=== PATIENT | male | born 1960 | race Caucasian/White ===

== ENCOUNTER 2023-05-19 10:07 | Outpatient (OUT) | payer BC, MEDICARE, SELFPAY ==
--- NOTE | 2023-05-19 10:17 | XR_ITS ---
The [address] [address] Patient Name: VIANEY AARON MRN: [id number] date: 1960 Sex: M Assigned Patient Location: [facility] Current Patient Location: [facility] Accession/Order Number: [id number] Exam Date: 05/19/2023 10:20 Report Date: 05/19/2023 13:29 At the request of: ILDA PECK Procedure: XR shoulder RICAHRD min 2V EXAM: XR shoulder RICHARD min 2V HISTORY: Bilateral Shoulder Pain, Cervicalgia COMPARISON: None. TECHNIQUE: 4 views. FINDINGS: Mild bilateral degenerative changes of the acromioclavicular and glenohumeral joints. Small bony fragment of the left acromial clavicular joint is noted. There is no dislocation. Unremarkable soft tissues. XR/XR shoulder RICHARD min 2V IMPRESSION: Mild bilateral degenerative changes as above. Well-corticated bony fragment of the left acromioclavicular joint, likely sequela of prior fracture. Electronically authenticated by: KOJO FUNG Date: 05/19/2023 13:29
--- NOTE | 2023-05-19 10:17 | XR_ITS ---
The [address] [address] Patient Name: VIANEY AARON MRN: [id number] date: 1960 Sex: M Assigned Patient Location: [facility] Current Patient Location: [facility] Accession/Order Number: [id number] Exam Date: 05/19/2023 10:20 Report Date: 05/19/2023 11:23 At the request of: ILDA PECK Procedure: XR cervical spine 2-3V XR cervical spine 2-3V, 05/19/2023 10:20 AM EDT, OH001 INDICATION: Cervicalgia M54.2 COMPARISON: None TECHNIQUE: 3 views submitted. FINDINGS: There is evidence of anterior fusion at C5-C6. The components appear intact and in anatomic alignment. The vertebral bodies demonstrate normal sagittal alignment. No acute fracture or subluxation is identified. There is marked disc space narrowing slight endplate osteophyte formation at C6-C7. The visualized soft tissues appear unremarkable. XR/XR cervical spine 2-3V IMPRESSION: Status post anterior fusion at C5-C6. Degenerative changes at C6-C7. Electronically authenticated by: MARGIE PETTIT Date: 05/19/2023 11:23
--- NOTE | 2023-05-19 10:17 | XR_ITS ---
The [address] [address] Patient Name: VIANEY AARON MRN: [id number] date: 1960 Sex: M Assigned Patient Location: [facility] Current Patient Location: [facility] Accession/Order Number: [id number] Exam Date: 05/19/2023 10:36 Report Date: 05/19/2023 11:19 At the request of: ILDA PECK Procedure: XR DEXA axial skeleton EXAMINATION: XR DEXA axial skeleton, 05/19/2023 10:36 AM EDT HISTORY: Loss Of Height R29.890, Age Related Osteoporosis M81.0 COMPARISON: None. TECHNIQUE: Dual-energy X-ray absorptiometry (DEXA) bone density study performed for the axial skeleton. HISTORY: Loss Of Height R29.890, Age Related Osteoporosis M81.0 FINDINGS: Bone mineral density AP spine L1-L4 measures 1.585 g/sq cm. T score 3.0. WHO classification: Normal. Lowest bone mineral density left femoral neck measures 1.1 by 5 g/sq cm. T score 1.0. WHO classification: Normal XR/XR DEXA axial skeleton IMPRESSION: Normal bone mineral density. Low fracture risk Electronically authenticated by: SUJATA VELASCO Date: 05/19/2023 11:19
== END 2023-05-19 10:08 | disposition home or self-care (01) ==
LOC: RAD 10:07
PROVIDERS: PCP Family Medicine; Visit Provider Family Medicine
DX: E29.1 Testicular hypofunction (principal); M54.2 Cervicalgia; M25.511 Pain in right shoulder; M25.512 Pain in left shoulder; M81.0 Age-related osteoporosis without current pathological fracture
CPT/HCPCS: 36415; 72040; 73030; 77080; 84403

== ENCOUNTER 2023-05-19 10:20 | Outpatient (OUT) | payer BC, MEDICARE, SELFPAY ==
[2023-05-20 04:07] LABS: Testosterone 456 ng/dL (264-916)
== END 2023-05-19 10:21 | disposition home or self-care (01) ==
LOC: LAB 10:20
PROVIDERS: PCP Family Medicine; Visit Provider Urology
DX: E29.1 Testicular hypofunction (principal)
CPT/HCPCS: 36415; 84403

== ENCOUNTER 2023-06-26 15:04 | Outpatient (OUT) | payer BC, MEDICARE, SELFPAY ==
[2023-06-26 15:31] LABS: Basophils Percent Auto 0.9 % (0.2-2.0); Eosinophils Absolute Auto 0.1 10^3/uL (0.0-0.7); Eosinophils Percent Auto 2.2 % (0.9-7.0); Hematocrit 43.8 % (42.0-54.0); Hemoglobin 14.4 g/dL (14.0-18.0); Immature Granulocytes Abs Auto 0.01 10^3/uL (0.00-0.03); Immature Granulocytes Pct Auto 0.2 % (0.0-0.5); Lymphocytes Absolute Auto 0.7 10^3/uL (1.2-3.8); Lymphocytes Percent Auto 14.8 % (20.5-60.0); Mean Corpuscular HGB Conc 32.9 g/dL (29.9-35.2); Mean Corpuscular Hemoglobin 29.1 pg (25.9-34.0); Mean Corpuscular Volume 88.5 fL (80.0-94.0); Mean Platelet Volume 9.5 fL (9.5-13.5); Monocytes Absolute Auto 0.4 10^3/uL (0.3-0.8); Monocytes Percent Auto 9.3 % (1.7-12.0); Neutrophils Absolute Auto 3.3 10^3/uL (1.4-6.5); Neutrophils Percent Auto 72.6 % (43.0-75.0); Platelet Count 131 10^3/uL (150-450); Red Blood Count 4.95 10^6/uL (4.70-6.10); Red Cell Distribution Width 15.6 % (11.0-15.0); White Blood Count 4.6 10^3/uL (4.0-11.0)
[2023-06-26 16:33] LABS: Alanine Aminotransferase 46 U/L (16-63); Albumin Globulin Ratio 1.3; Albumin Level 3.6 g/dL (3.4-5.0); Alkaline Phosphatase 56 U/L (46-116); Anion Gap 8.1; Aspartate Amino Transferase 27 U/L (15-37); BUN Creatinine Ratio 10.4; Bilirubin Total 0.8 mg/dL (0.2-1.0); Calcium 8.9 mg/dL (8.5-10.1); Carbon Dioxide 32.2 mmol/L (21.0-32.0); Chloride 105 mmol/L (98-107); Estimated GFR (African America 52 (>=60); Estimated GFR (Non-African Ame 43 (>=60); Free T3 3.17 pg/mL (2.18-3.98); Globulin 2.8 g/dL; Glucose 83 mg/dL (74-106); Potassium 4.3 mmol/L (3.5-5.1); Sodium 141 mmol/L (136-145); Thyroid Stimulating Hormone 0.173 uIU/mL (0.358-3.740); Total Protein 6.4 g/dL (6.4-8.2)
[2023-06-27 11:09] LABS: Troponin I High Sensitivity 7.4 pg/mL (4.0-76.1)
== END 2023-06-26 15:05 | disposition home or self-care (01) ==
LOC: LAB 15:08
PROVIDERS: PCP Family Medicine; Visit Provider Family Medicine
DX: R60.9 Edema, unspecified (principal); I50.30 Unspecified diastolic (congestive) heart failure; R07.9 Chest pain, unspecified
CPT/HCPCS: 36415; 80053; 83880; 84436; 84443; 84481; 84484; 85025

== ENCOUNTER 2023-06-27 12:54 | Outpatient (OUT) | payer BC, MEDICARE, SELFPAY ==
--- NOTE | 2023-06-27 | ECG_ITS ---
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
--- NOTE | 2023-06-27 14:00 | CA_ITS ---
Patient: VIANEY AARON Exam Date: 06/27/2023 : 1960 Gender:M Ordering : DR Ryan Hendrickson . Admission #: [id number] Family : Order #: [id number] CLICK HERE TO VIEW EXAM ECHOCARDIOGRAM REPORT PROCEDURE: CA ECHO DOPPLER COMPLETE INDICATIONS: Edema COMPARISON: None. DESCRIPTION: COMPLETE ECHOCARDIOGRAM Real-time transthoracic echocardiography with 2D, M-mode, spectral and color flow Doppler performed. QUALITY: Technical quality was good. LEFT VENTRICLE: Normal chamber size. Mild concentric left ventricular hypertrophy. LV EF: Global left ventricular systolic function is normal; visually estimated ejection fraction is 55%. No significant wall motion abnormalities. DIASTOLIC: Not adequately assessed due to heart rhythm. ATRIAL SEPTUM: Visually appears intact. LEFT ATRIUM: Severe dilatation. RIGHT ATRIUM: Severe dilatation. RIGHT VENTRICLE: Mild dilatation. Normal right ventricular systolic function. TRICUSPID VALVE: Normal mobility and thickness. Moderate regurgitation. Mild pulmonary hypertension. RVSP 44mmHg MITRAL VALVE: Mildly thickened with normal mobility. No evidence of mitral valve stenosis. There is no mitral annular calcification. Moderate mitral regurgitation. AORTIC VALVE: Normal trileaflet appearance. No visible sclerosis. Normal leaflet mobility. No evidence of aortic valve stenosis. No aortic regurgitation. AORTIC ROOT: Normal diameter and appearance. PULMONIC VALVE: Normal thickness and mobility. No stenosis. Trivial regurgitation. PERICARDIUM: Trivial pericardial effusion. IVC: Collapses with inspirations. Mild dilatation measuring 2.3cm. CONCLUSION: 1. Global left ventricular systolic function is normal; visually estimated ejection fraction is 55% 2. Mild left ventricular hypertrophy 3. Severe biatrial enlargement 4. Right ventricle is mildly dilated with normal systolic function 5. Moderate tricuspid regurgitation; mildly elevated right ventricular systolic pressure 6. Moderate mitral regurgitation 7. Trivial pericardial effusion Adult Echocardiography Procedure Report Left Ventricle LVEDD (3.7 - 5.6 cm): 4.84 cm LVESD (2.2 - 4.0 cm): 3.36 cm LVIVS thickness (0.6 - 1.2 cm): 1.22 cm LVPW thickness (0.5 - 1.0 cm): 1.18 cm e': 0.13 m/s E - e': 6.73 LVOT Max Gradient: 1.74 mm[Hg] LVOT Area (cm2): 0.66 m/s Peak Velocity (LVOT): 0.66 m/s Mean Velocity (LVOT): 0.49 m/s LVOT Diameter 2.10 cm Left Atrium LA Volume Index (2D A2C): 67.08 ml/m2 Left Atrium Systolic Dimension: 4.50 cm Mitral Valve Mitral Valve E-Wave Peak Velocity: 0.86 m/s Right Ventricle RV Internal Diastolic Dimension: 4.02 cm Aorta AO Root Diam: 3.19 cm Ascending Ao Diam: 3.10 cm Aortic Valve AoV Area (Peak Tahir): 2.17 cm2, 2.17 cm2 AoV Area (VTI): 1.90 cm2, 1.90 cm2 Peak Velocity(Antegrade Flow): 1.05 m/s Peak Gradient(Antegrade Flow): 4.39 mm[Hg] Mean Velocity(Antegrade Flow): 0.73 m/s Mean Gradient(Antegrade Flow): 2.39 mm[Hg] Velocity Time Integral: 21.12 cm Tricuspid Valve Peak Velocity (Regurgitant Flow): 2.49 m/s, 2.18 m/s, 3.00 m/s Pulmonic Valve Mean Gradient: 1.34 mm[Hg] Mean Velocity: 0.54 m/s Peak Velocity: 0.77 m/s, 0.66 m/s Peak Gradient: 2.38 mm[Hg], 1.72 mm[Hg] Right Atrium Right Atrium Systolic Pressure: 106.95 ml, 106.95 ml Dictated by: George Loza M.D. on 06/28/2023 at 09:01 Approved by: George Loza M.D. on 06/28/2023 at 09:05
== END 2023-06-27 12:55 | disposition home or self-care (01) ==
LOC: CARD 12:55
PROVIDERS: PCP Family Medicine; Visit Provider Family Medicine
DX: R60.9 Edema, unspecified (principal); I48.91 Unspecified atrial fibrillation
CPT/HCPCS: 93005; 93306

== ENCOUNTER 2023-07-03 09:12 | Outpatient (OUT) | payer BC, MEDICARE, SELFPAY ==
[2023-07-03 10:20] LABS: Alanine Aminotransferase 44 U/L (16-63); Albumin Globulin Ratio 1.2; Alkaline Phosphatase 76 U/L (46-116); Anion Gap 11.6; Aspartate Amino Transferase 20 U/L (15-37); BUN Creatinine Ratio 14.5; Bilirubin Total 1.3 mg/dL (0.2-1.0); Calcium 9.8 mg/dL (8.5-10.1); Carbon Dioxide 29.5 mmol/L (21.0-32.0); Chloride 102 mmol/L (98-107); Chol HDL Ratio 4.1; Cholesterol 206 mg/dL (<=200); Estimated GFR (African America 48 (>=60); Estimated GFR (Non-African Ame 40 (>=60); Globulin 3.3 g/dL; Glucose 93 mg/dL (74-106); HDL Cholesterol 50 mg/dL (40-60); Potassium 4.1 mmol/L (3.5-5.1); Sodium 139 mmol/L (136-145); Total Protein 7.3 g/dL (6.4-8.2); Triglycerides 109 mg/dL (<=150); VLDL CHOLESTEROL 21.8 mg/dL
== END 2023-07-03 09:13 | disposition home or self-care (01) ==
LOC: LAB 09:14
PROVIDERS: PCP Family Medicine; Visit Provider Internal Medicine Interventional Cardiology
DX: I48.0 Paroxysmal atrial fibrillation (principal); E78.5 Hyperlipidemia, unspecified
CPT/HCPCS: 36415; 80053; 80061

== ENCOUNTER 2023-07-04 10:15 | Outpatient (OUT) | payer BC, MEDICARE, SELFPAY ==
--- NOTE | 2023-07-04 10:18 | US_ITS ---
The [address] [address] Patient Name: VIANEY AARON MRN: [id number] date: 1960 Sex: M Assigned Patient Location: [place] Current Patient Location: [place] Accession/Order Number: [id number] Exam Date: 07/04/2023 10:18 Report Date: 07/04/2023 12:56 At the request of: ILDA PECK Procedure: US renal bladder EXAM: US renal bladder HISTORY: Acute Kidney Failure N17.9 COMPARISON: None. TECHNIQUE: Ultrasound kidneys. FINDINGS: The right kidney measures 10.2 x 4.6 x 5.4 cm and appears normal. The left kidney measures 10.6 x 4.9 x 4.7 cm and contains a cyst measuring up to 0.8 cm. There is no renal calculus or hydronephrosis, bilaterally. US/US renal bladder IMPRESSION: Left renal cyst. Electronically authenticated by: KOJO FUNG Date: 07/04/2023 12:56
[2023-07-04 13:01] LABS: Bilirubin Urine NEGATIVE (NEGATIVE); Blood Urine NEGATIVE (NEGATIVE); Clarity Urine CLEAR (CLEAR); Color Urine LT. YELLOW (YELLOW); Glucose Urine UA NEGATIVE (NEGATIVE); Ketones Urine NEGATIVE (NEGATIVE); Leukocyte Esterase Urine NEGATIVE (NEGATIVE); Nitrite Urine NEGATIVE (NEGATIVE); Protein Urine NEGATIVE (NEG/TRACE); Specific Gravity Urine <=1.005 (1.005-1.025); Urobilinogen Urine 0.2 EU/dL (0.2-1.0)
[2023-07-04 13:16] LABS: Bacteria Urine NONE SEEN #/HPF (NONE SEEN); Cast Seen? NONE SEEN #/LPF (NONE SEEN); Crystals Seen? None Seen #/HPF (None Seen); Mucus Urine NONE SEEN (NONE SEEN); RBC Urine NONE SEEN #/HPF (0-2); Squamous Epithelial Cell Urine NONE SEEN #/LPF (NONE/RARE); WBC Urine NONE SEEN #/HPF (NONE SEEN)
== END 2023-07-04 10:16 | disposition home or self-care (01) ==
LOC: US 10:15
PROVIDERS: PCP Family Medicine; Visit Provider Family Medicine
DX: N17.9 Acute kidney failure, unspecified (principal); R30.0 Dysuria; N28.1 Cyst of kidney, acquired
CPT/HCPCS: 76770; 81001; 87086

== ENCOUNTER 2023-07-07 10:41 | Outpatient (OUT) | payer BC, MEDICARE, SELFPAY ==
[2023-07-07 11:23] LABS: Anion Gap 10.5; Calcium 9.1 mg/dL (8.5-10.1); Carbon Dioxide 30.3 mmol/L (21.0-32.0); Chloride 101 mmol/L (98-107); Estimated GFR (African America 51 (>=60); Estimated GFR (Non-African Ame 42 (>=60); Glucose 91 mg/dL (74-106); Potassium 4.8 mmol/L (3.5-5.1); Sodium 137 mmol/L (136-145)
== END 2023-07-07 10:42 | disposition home or self-care (01) ==
LOC: LAB 10:42
PROVIDERS: PCP Family Medicine; Visit Provider Internal Medicine Interventional Cardiology
DX: I11.9 Hypertensive heart disease without heart failure (principal)
CPT/HCPCS: 36415; 80048

== ENCOUNTER 2023-07-10 10:57 | Outpatient (OUT) | payer BC, MEDICARE, SELFPAY ==
--- NOTE | 2023-07-10 10:15 | NM_ITS ---
Patient: VIANEY AARON Exam Date: 07/10/2023 : 1960 Gender:M Ordering : DR Ryan Hendrickson . Admission #: [id number] Family : DR JOE WILLIAM M.D. Order #: [id number] CLICK HERE TO VIEW EXAM RADIOLOGY REPORT PROCEDURE: NM ANISA PERF SPECT REST STR COMPARISON: None. INDICATIONS: ATRIAL FIBRILLATION, CHEST PAIN TECHNIQUE: Exam Description: Stress/Rest one day protocol gated SPECT Rest Imagin.1 mCi Tc-99m Cardiolite IV on 07/13/2023 Stress Imaging 30.2 mCi Tc-99m Cardiolite IV on 07/13/2023 Exercise Protocol: Stephan Heart Rate (bpm): Rest: 61 Max: 153 PMHR: 98 Blood Pressure: Rest: 152/88 Max: 182/96 Exercise Time: Minutes: 8 Seconds: 01 Stage Reached: Stage: 3 Mets 10.1 Symptoms: NONE Rest and peak stress ECG findings were pending and the exercise portion of the study was pending per attending physician Dr. Tidwell . For more details please see separate cardiac stress test report. FINDINGS: QUALITY OF STUDY: Good. PERFUSION DEFECT: LOCATION: Basal inferior. Mid-inferior. [place]. SIZE: Medium (3-4 segments). SEVERITY: Mild. TYPE: Persistent. WALL MOTION: Normal. LV SIZE: Normal. 96 mL. TID / TCD: None; 0.8 LVEF: Normal. Calculated EF 60%. SUMMARY: Myocardial perfusion imaging study has ABNORMAL findings. CONCLUSION: 1. Small fixed defect inferior wall without evidence of reversible ischemia 2. Pending exercise test Dictated by: Marc Jefferson MD on 07/10/2023 at 13:53 Approved by: Marc Jefferson MD on 07/10/2023 at 14:01
[2023-07-10 12:42] LABS: Total Volume 24 Hour Urine 4075 mL/24hr
[2023-07-10 12:46] LABS: Creatinine Urine Random 52.03 mg/dL (20.00-300.00); Total Protein 24 Hour Urine 244.5 mg/24hr (<=149.1); Total Protein Urine Random <6.0 mg/dL (<=11.9)
[2023-07-10 13:10] LABS: Body Surface Area 1.92
[2023-07-10 13:23] LABS: Creatinine Clearance Urine 79.92 mL/min (85.00-125.00)
--- NOTE | 2023-07-10 16:08 | P.STRESS_ITS ---
Stress Test Stress Test Requesting physician: Ryan Hendrickson Procedure: Exercise Cardiolite stress test General Information: Reason for Stress Test: Chest pain Cardiac History and Risk Factors: Personal history of atrial fibrillation. Resting 12 - Lead Electrocardiogram: Rate & rhythm: Irregularly irregular, consistent with atrial fibrillation. Averaged rate was 70. [place]: Normal T-waves: Inverted in III and sometimes aVF. ST-segments: Normal orientation. Prior EKG 06/27/2023: Inverted T waves were present in III on EKG dated 06/27/2023 Stress Test: Protocol: Stephan protocol was followed, with injection of Cardiolite once target heart rate was achieved. Exercise capacity: Good exercise capacity. Total exercise time of 8 minutes 1 second reached Stephan stage 3 at 2.5MPH, 12% grade, & 10.1 METs. Blood pressure: Initial: 152/88, Maximum: 182/96, Recovery: 146/90 Rate & rhythm: Patient remained in atrial fibrillation during the exercise and recovery portions of the study.? The maximum heart rate was 153, which was 98% of the maximum predicted heart rate 156. ST-segments & T-waves: During recovery, the T waves in aVF were more prominent. There was 0.5-1mm ST segment depression in lead V5 and very subtle ST segment depression in V6, along with new T wave inversions. Patient response/symptoms: There were no symptoms similar to the chief complaint. Interpretation: This is an abnormal exercise stress test based on ST segment changes in the lateral leads (V5 & V6). No reproducible chest pain. Cardiolite imaging interpretation will be reported separately. Clinical correlation required.?
== END 2023-07-10 10:58 | disposition home or self-care (01) ==
LOC: NM 10:58
PROVIDERS: PCP Family Medicine; Visit Provider Family Medicine
DX: R07.9 Chest pain, unspecified (principal); N17.9 Acute kidney failure, unspecified; R94.39 Abnormal result of other cardiovascular function study
CPT/HCPCS: 36415; 78452; 82570; 82575; 84156; 93017; A9500

== ENCOUNTER 2023-07-14 11:17 | Outpatient (OUT) | payer BC, MEDICARE, SELFPAY ==
[2023-07-14 12:20] LABS: Anion Gap 7.7; BUN Creatinine Ratio 14.1; Carbon Dioxide 31.5 mmol/L (21.0-32.0); Chloride 102 mmol/L (98-107); Estimated GFR (African America >60 (>=60); Estimated GFR (Non-African Ame 50 (>=60); Glucose 82 mg/dL (74-106); Potassium 4.2 mmol/L (3.5-5.1); Sodium 137 mmol/L (136-145)
== END 2023-07-14 11:18 | disposition home or self-care (01) ==
LOC: LAB 11:20
PROVIDERS: PCP Family Medicine; Visit Provider Internal Medicine Interventional Cardiology
DX: I10 Essential (primary) hypertension (principal)
CPT/HCPCS: 36415; 80048

== ENCOUNTER 2023-07-17 20:04 | Outpatient (OUT) | payer BC, MEDICARE, SELFPAY | END 2023-07-17 20:05 | disposition home or self-care (01) | LOC: SLEEP 20:04 | PROVIDERS: PCP Family Medicine; Visit Provider Family Medicine | DX: G47.33 Obstructive sleep apnea (adult) (pediatric) (principal) | CPT/HCPCS: 95811 ==

== ENCOUNTER 2023-07-25 14:24 | Outpatient (OUT) | payer BC, MEDICARE, SELFPAY ==
[2023-07-25 14:54] LABS: Basophils Absolute Auto 0.1 10^3/uL (0.0-0.1); Basophils Percent Auto 1.2 % (0.2-2.0); Eosinophils Absolute Auto 0.1 10^3/uL (0.0-0.7); Hematocrit 49.1 % (42.0-54.0); Hemoglobin 16.6 g/dL (14.0-18.0); Lymphocytes Percent Auto 24.4 % (20.5-60.0); Mean Corpuscular HGB Conc 33.8 g/dL (29.9-35.2); Mean Corpuscular Volume 85.7 fL (80.0-94.0); Mean Platelet Volume 9.6 fL (9.5-13.5); Monocytes Absolute Auto 0.3 10^3/uL (0.3-0.8); Monocytes Percent Auto 7.8 % (1.7-12.0); Neutrophils Absolute Auto 2.6 10^3/uL (1.4-6.5); Neutrophils Percent Auto 64.6 % (43.0-75.0); Platelet Count 132 10^3/uL (150-450); Red Blood Count 5.73 10^6/uL (4.70-6.10); Red Cell Distribution Width 13.6 % (11.0-15.0); White Blood Count 4.1 10^3/uL (4.0-11.0)
[2023-07-25 15:34] LABS: Alanine Aminotransferase 31 U/L (16-63); Albumin Globulin Ratio 1.3; Albumin Level 4.1 g/dL (3.4-5.0); Alkaline Phosphatase 62 U/L (46-116); Anion Gap 8.2; Aspartate Amino Transferase 25 U/L (15-37); BUN Creatinine Ratio 12.4; Calcium 9.3 mg/dL (8.5-10.1); Carbon Dioxide 32.3 mmol/L (21.0-32.0); Chloride 101 mmol/L (98-107); Estimated GFR (African America >60 (>=60); Estimated GFR (Non-African Ame 52 (>=60); Globulin 3.1 g/dL; Glucose 85 mg/dL (74-106); Potassium 4.5 mmol/L (3.5-5.1); Sodium 137 mmol/L (136-145); Total Protein 7.2 g/dL (6.4-8.2)
== END 2023-07-25 14:25 | disposition home or self-care (01) ==
LOC: LAB 14:26
PROVIDERS: PCP Family Medicine; Visit Provider Family Medicine
DX: E03.9 Hypothyroidism, unspecified (principal); I48.91 Unspecified atrial fibrillation; I50.41 Acute combined systolic (congestive) and diastolic (congestive) heart failure
CPT/HCPCS: 36415; 80053; 83880; 85025

== ENCOUNTER 2023-08-24 10:26 | Outpatient (OUT) | payer BC, MEDICARE, SELFPAY ==
[2023-08-24 10:50] LABS: Basophils Absolute Auto 0.1 10^3/uL (0.0-0.1); Basophils Percent Auto 1.5 % (0.2-2.0); Eosinophils Absolute Auto 0.1 10^3/uL (0.0-0.7); Eosinophils Percent Auto 2.4 % (0.9-7.0); Hematocrit 45.7 % (42.0-54.0); Hemoglobin 15.5 g/dL (14.0-18.0); Immature Granulocytes Abs Auto 0.01 10^3/uL (0.00-0.03); Immature Granulocytes Pct Auto 0.3 % (0.0-0.5); Lymphocytes Absolute Auto 0.9 10^3/uL (1.2-3.8); Lymphocytes Percent Auto 26.1 % (20.5-60.0); Mean Corpuscular HGB Conc 33.9 g/dL (29.9-35.2); Mean Corpuscular Hemoglobin 29.7 pg (25.9-34.0); Mean Corpuscular Volume 87.5 fL (80.0-94.0); Mean Platelet Volume 9.2 fL (9.5-13.5); Monocytes Absolute Auto 0.3 10^3/uL (0.3-0.8); Monocytes Percent Auto 9.1 % (1.7-12.0); Neutrophils Percent Auto 60.6 % (43.0-75.0); Platelet Count 129 10^3/uL (150-450); Red Blood Count 5.22 10^6/uL (4.70-6.10); Red Cell Distribution Width 13.8 % (11.0-15.0); White Blood Count 3.3 10^3/uL (4.0-11.0)
[2023-08-24 12:17] LABS: Alanine Aminotransferase 34 U/L (16-63); Albumin Globulin Ratio 1.3; Alkaline Phosphatase 60 U/L (46-116); Anion Gap 11.2; Aspartate Amino Transferase 22 U/L (15-37); BUN Creatinine Ratio 14.5; Bilirubin Total 0.8 mg/dL (0.2-1.0); Calcium 8.8 mg/dL (8.5-10.1); Chloride 103 mmol/L (98-107); Estimated GFR (African America >60 (>=60); Estimated GFR (Non-African Ame >60 (>=60); Free T4 0.91 ng/dL (0.76-1.46); Glucose 91 mg/dL (74-106); Potassium 4.2 mmol/L (3.5-5.1); Sodium 141 mmol/L (136-145); Thyroid Stimulating Hormone 0.531 uIU/mL (0.358-3.740)
== END 2023-08-24 10:27 | disposition home or self-care (01) ==
LOC: LAB 10:27
PROVIDERS: PCP Family Medicine; Visit Provider Family Medicine
DX: I48.0 Paroxysmal atrial fibrillation (principal); E87.6 Hypokalemia; E03.9 Hypothyroidism, unspecified; D69.6 Thrombocytopenia, unspecified; R60.9 Edema, unspecified; I50.41 Acute combined systolic (congestive) and diastolic (congestive) heart failure
CPT/HCPCS: 36415; 80053; 83880; 84439; 84443; 85025

== ENCOUNTER 2023-08-24 10:59 | Outpatient (OUT) | payer BC, MEDICARE, SELFPAY ==
[2023-08-24 12:13] LABS: Chol HDL Ratio 3.3; Cholesterol 183 mg/dL (<=200); HDL Cholesterol 55 mg/dL (40-60); LDL Cholesterol Calculated 107.8 mg/dL; Triglycerides 101 mg/dL (<=150); VLDL CHOLESTEROL 20.2 mg/dL
== END 2023-08-24 11:00 | disposition home or self-care (01) ==
LOC: LAB 10:59
PROVIDERS: PCP Family Medicine; Visit Provider Internal Medicine Interventional Cardiology
DX: I48.0 Paroxysmal atrial fibrillation (principal); E78.5 Hyperlipidemia, unspecified; E87.6 Hypokalemia; E03.9 Hypothyroidism, unspecified; D69.6 Thrombocytopenia, unspecified; R60.9 Edema, unspecified; I50.41 Acute combined systolic (congestive) and diastolic (congestive) heart failure
CPT/HCPCS: 36415; 80053; 80061; 83880; 84439; 84443; 85025

== ENCOUNTER 2023-09-05 07:27 | Outpatient (RCR) | payer BC, MEDICARE, SELFPAY ==
[2023-09-05 09:32] LABS: Basophils Percent Auto 1.2 % (0.2-2.0); Eosinophils Absolute Auto 0.1 10^3/uL (0.0-0.7); Hematocrit 43.3 % (42.0-54.0); Hemoglobin 14.7 g/dL (14.0-18.0); Lymphocytes Absolute Auto 0.9 10^3/uL (1.2-3.8); Lymphocytes Percent Auto 27.8 % (20.5-60.0); Mean Corpuscular HGB Conc 33.9 g/dL (29.9-35.2); Mean Corpuscular Hemoglobin 29.8 pg (25.9-34.0); Mean Corpuscular Volume 87.8 fL (80.0-94.0); Mean Platelet Volume 9.6 fL (9.5-13.5); Monocytes Absolute Auto 0.4 10^3/uL (0.3-0.8); Monocytes Percent Auto 11.4 % (1.7-12.0); Neutrophils Absolute Auto 1.9 10^3/uL (1.4-6.5); Neutrophils Percent Auto 56.6 % (43.0-75.0); Platelet Count 121 10^3/uL (150-450); Red Blood Count 4.93 10^6/uL (4.70-6.10); Red Cell Distribution Width 13.9 % (11.0-15.0); White Blood Count 3.3 10^3/uL (4.0-11.0)
[2023-09-05 09:43] LABS: Lactate Dehydrogenase 162 U/L (85-227)
[2023-09-06 11:09] LABS: ANA Direct Negative (Negative)
[2023-09-06 16:11] LABS: Albumin 3.9 g/dL (2.9-4.4); Alpha-1-Globulin 0.2 g/dL (0.0-0.4); Alpha-2-Globulin 0.5 g/dL (0.4-1.0); Gamma Globulin 0.9 g/dL (0.4-1.8); Immunoglobulin A, Qn, Serum 124 mg/dL (61-437); Immunoglobulin G, Qn, Serum 904 mg/dL (603-1613); Immunoglobulin M, Qn, Serum 46 mg/dL (20-172); Protein, Total 6.3 g/dL (6.0-8.5)
[2023-09-09 06:08] LABS: Immunoglobulin E, Total 3 IU/mL (6-495)
== END 2023-09-05 09:30 | disposition home or self-care (01) ==
LOC: INF 07:27
PROVIDERS: PCP Family Medicine; Visit Provider Internal Medicine Hematology & Oncology
DX: D72.819 Decreased white blood cell count, unspecified (principal); D69.6 Thrombocytopenia, unspecified
CPT/HCPCS: 36415; 82607; 82784; 82785; 83615; 84155; 84165; 85025; 86038; 86334; G0463

== ENCOUNTER 2023-09-11 07:54 | Outpatient (OUT) | payer BC, MEDICARE, SELFPAY ==
--- NOTE | 2023-09-11 08:01 | CT_ITS ---
The [address] [address] Patient Name: VIANEY AARON MRN: [id number] date: 1960 Sex: M Assigned Patient Location: CT Current Patient Location: Accession/Order Number: [id number] Exam Date: 09/11/2023 09:15 Report Date: 09/12/2023 09:42 At the request of: ILDA PECK Procedure: CT abdomen pelvis wo con EXAM: CT abdomen pelvis wo con HISTORY: Spleen Enlargement R16.1 COMPARISON: None. TECHNIQUE: Axial CT images were obtained of the abdomen and pelvis without and with intravenous contrast. Multiplanar reconstructions were performed. ABDOMEN/PELVIS FINDINGS: Lower Chest: Unremarkable. Liver: Normal nonenhanced appearance and contour. Biliary/Gallbladder: Unremarkable. Pancreas: Unremarkable. Spleen: Borderline splenomegaly measuring 13.7 cm in craniocaudal dimension. Multiple tiny calcifications are present in the spleen, likely due to remote granulomatous disease. Adrenal Glands: Unremarkable. Kidneys: Unremarkable. Gastrointestinal/Peritoneum: No acute abnormality. The appendix is unremarkable. No free air or free fluid. Vascular: Unremarkable. Lymph Nodes: No enlarged lymph nodes by CT size criteria. Pelvic Organs: Unremarkable. Bladder: Unremarkable. Bones: No acute osseous abnormality. There is a chronic bilateral pars defect at L4 with a grade 2 anterolisthesis of L4 on L5. There are advanced degenerative changes at this level with severe bilateral neural foraminal stenosis and moderate spinal canal stenosis. Moderate degenerative disc disease is also present at L5-S1, with uncovertebral hypertrophy and facet hypertrophy contributing to severe right and mild left neural foraminal stenosis. Soft tissues: There is a small fat-containing left inguinal hernia. CT/CT abdomen pelvis wo con IMPRESSION: 1. No acute abnormality of the abdomen and pelvis. 2. Borderline splenomegaly measuring 13.7 cm. 3. Small fat-containing left inguinal hernia. 4. Spondylolisthesis, pars defect and advanced degenerative change at L4-L5. Electronically authenticated by: JOSIAH VERDUGO Date: 09/12/2023 09:42
== END 2023-09-11 07:55 | disposition home or self-care (01) ==
LOC: CT 07:54
PROVIDERS: PCP Family Medicine; Visit Provider Family Medicine
DX: R16.1 Splenomegaly, not elsewhere classified (principal); K40.90 Unilateral inguinal hernia, without obstruction or gangrene, not specified as recurrent
CPT/HCPCS: 74176

== ENCOUNTER 2023-09-29 11:46 | Outpatient (OUT) | payer BC, MEDICARE, SELFPAY ==
--- OUTSIDE RECORDS SUMMARY | 2023-09-29 11:56 | XMS_ITS | CCD ---
Author Name Unknown Address [address] [facility] [address] [place] [address] Organization [facility] Care Team Providers Care Outside Sales Engineer Name Role Phone Ilda Hendrickson Primary Care Physician Moose PRIETO, Jovita Unavailable Jovita Virk MD Unavailable CISCO ., DR GONSALES Primary Care Unavailable HOY ., DR GONSALES Attending Unavailable HOY ., DR GONSALES Admitting Unavailable HOY ., DR GONSALES Consulting Unavailable ZIEBER, DR ALFREDITO Crawford Consulting Unavailable LUE .TAYLOR Admitting Unavailable LUE ., ATYLOR Pompa Attending Unavailable HOY ., DR GONSALES Consulting Unavailable HOY ., DR GONSALES Primary Care Unavailable ARAM Flores, DR SAEED Landa Admitting Unavaila ble ARAM Flores, DR SAEED Landa Attending Unavaila fredrick CANTU JR ., DR SAEED Landa Consulting Unavaila ble HODarwin ., DR GONSALES Primary Care Unavailable HOY ., DR GONSALES Primary Care Unavailable MENDOZA ., DR WINTERS Admitting Unavailable MENDOZA ., DR WINTERS Attending Unavailable MENDOZA ., DR WINTERS Consulting Unavailable HOY ., DR GONSALES Attending Unavailable HOY ., DR GONSALES Admitting Unavailable HOY ., DR GONSALES Consulting Unavailable HOY ., DR GONSALES Primary Care Unavailable HOY ., DR GONSALES Attending Unavailable HOY ., DR GONSALES Admitting Unavailable HOY ., DR GONSALES Consulting Unavailable HOY ., DR GONSALES Primary Care Unavailable ARAM THORPE ., DR SAEED Landa Admitting Unavaila fredrick Flores, DR SAEED Landa Attending Unavaila fredrick CANTU JR ., DR SAEED Landa Consulting Unavaila ble HOY ., DR GONSALES Primary Care Unavailable HOY ., DR GONSALES Admitting Unavailable HOY ., DR GONSALES Attending Unavailable HOY ., DR GONSALES Consulting Unavailable HOY ., DR GONSALES Primary Care Unavailable ERIN HANSEN Unavailable MENDOZA ., DR WINTERS Admitting Unavailable MENDOZA ., DR WINTERS Attending Unavailable MENDOZA ., DR WINTERS Consulting Unavailable HOY ., DR GONSALES Primary Care Unavailable HOY ., DR GONSALES Admitting Unavailable HOY ., DR GONSALES Attending Unavailable HOY ., DR GONSALES Consulting Unavailable HOY ., DR GONSALES Primary Care Unavailable HOY ., DR GONSALES Attending Unavailable HOY ., DR GONSALES Admitting Unavailable HOY ., DR GONSALES Primary Care Unavailable HOY ., DR GONSALES Attending Unavailable HOY ., DR GONSALES Admitting Unavailable HOY ., DR GONSALES Primary Care Unavailable Ilda Hendrickson MD Primary Care Provider [phone] ILDA HENDRICKSON Primary Care Unavailable SHAWANDA HERNANDEZ Attending Unavailable Antonia, Sandoval Unavailable Vianey MENDOZA Attending Unavailable JENNIFERKYLE PABON Attending Unavailable LueTaylor Attending Unavailable Lue, Taylor Hatfield Attending Unavailable LueTaylor Attending Unavailable MENDOZA, Vianey R Attending Unavailable MENDOZA, Vianey R Attending Unavailable MENDOZA, Vianey R Attending Unavailable MENDOZA, Vianey R Attending Unavailable Lue, Taylor MMark Attending Unavailable JENNIFER, KYLE Marin Attending Unavailable JENNIFER, KYLE Marin Attending Unavailable MENDOZA, Vianey R Attending Unavailable Lue, Taylor MMark Attending Unavailable [facility], [facility] Referring Unavailable BAKARI SCOTT Attending Unavailable [facility], [facility] Attending Unavailable [facility], [facility] Admitting Unavailable [facility], [facility] Attending Unavailable [facility], [facility] Referring Unavailable [facility], [facility] Referring Unavailable [facility], [facility] Attending Unavailable [facility], [facility] Referring Unavailable Allergies Allergy Classification Reported Allergen(s) Allergy Type Date of Onset Reaction(s) Facility (1 source) Ciprofloxacin Drug Allergy Unknown Diveboard Other (1 source) No Known Medication Allergies; Translations: [No Known Medication Allergies] Propensity to adverse reactions (disorder) [facility] Repository Medications Current Medications Medication Drug Class(es) Dates Sig (Normalized) Sig (Original) acetaminophen 325 mg oral tablet (4 sources) Start: 06-27-2011 take 2 tablets by mouth every four hours as needed acetaminophen (TYLENOL) 325 MG tablet Take 2 Tabs by mouth every 4 hours as needed. 30 Tab 30 06/27/2011 Active amantadine hydrochloride 100 mg oral capsule (20 sources) Influenza A M2 Protein Inhibitor Start: 05-07-2019 take 1 mg by mouth twice daily amantadine 100 mg Cap mg cap(s), Oral, BID, Refills(s) 0 Start Date: 05/07/19 Status: Ordered Start: 12-25-2017 End: 07-20-2023 take 1 capsule by mouth once daily amantadine (SYMMETREL) 100 MG capsule Take 1 Capsule by mouth daily. 90 Capsule 3 07/20/2022 07/20/2023 Active take 1 tablet by darren th every twenty-four hours Amantadine HCl 100 MG 1 tablet Orally Once a day Active End: 04-26-2023 AMANTADINE HCL ORAL Take by mouth. 0 04/26/2023 Discontinued (Course of therapy completed) Comment on above: Take 100 mg by mouth once daily. Take by mouth. apixaban 5 mg oral tablet (1 source) Factor Xa Inhibitor take 1 tablet by mouth every twelve hours Eliquis 5 MG 1 tablet Orally Twice a day Active Ascorbic Acid (20 sources) Vitamin C Start: 05-07-2019 Vitamin C Daily, Refills(s) 0 Start Date: 05/07/19 Status: Ordered Start: 05-07-2019 Ascorbic Acid (VITAMIN C) 100 mg tablet Daily, Refills(s) 0 0 05/07/2019 Active End: 04-26-2023 ASCORBIC ACID (VITAMIN C ORA L) Indications: Leukopenia, unspecified type , Thrombocytopenia (HCC) , Hypothyroidism, unspecified type Take 1,000 mg by mouth. 0 04/26/2023 Discontinued (Course of therapy completed) Ascorbic Acid (V itamin C) 100 MG CHEW Vitamin C 0 Active Comment on above: Daily, Refills(s) 0 Take 1,000 mg by darren th. carvedilol 25 mg oral tablet (1 source) alpha-Adrenergic Joan, beta-Adrenergic Joan take 1 tablet by mouth every twelve hours Coreg 25 MG 1 tablet with food Orally Twice a day Active Depo-Testosterone 200 mg/mL intramuscular solution (3 sources) Start: 01-05-20 Depo-Testosterone 200 mg/mL intramuscular solution 300 mg, IntraMuscular, q4wk, # 10 mL, Refills(s) 1, Pharmacy: [facility]/pharmacy #[id number], 167, cm, 10/05/21 11:32:00 EST, Height/Length Dosing, 83, kg, 10/05/21 11:32:00 EST, Weight Dosing Start Date: 01/04/22 Status: Ordered dexpanthenol 2 mg/ml / niacinamide 100 mg/ml / riboflavin 2 mg/ml / thiamine 100 mg/ml / vitamin b6 2 mg/ml injectable solution (11 sources) Start: 05-07-20 Vitamin B Complex injectable solution Refill(s) 0 Start Date: 05/07/19 Status: Ordered Comment on above: Refill(s) 0 docosahexaenoic acid 120 mg / eicosapentaenoic acid 180 mg oral capsule (4 sources) take 1 capsule by mouth once daily Slater-3 Fatty Acids (FISH OIL) 1000 MG CAPS Take 1 Capsule by mouth daily. 0 Active Fish Oils (9 sources) Start: 05-07-20 Fish Oil Oral, Refill(s) 0 Start Date: 05/07/19 Status: Ordered levothyroxine sodium 0.15 mg oral tablet (19 sources) l-Thyroxine Start: 05-07-20 take 1 tablet by mouth once daily levothyroxine 150 mcg (0.15 mg) Tab microgram tab(s), Oral, Daily, Refills(s) 0 Start Date: 05/07/19 Status: Ordered Start: 02-08-2017 take 1 tablet by darren th once daily levothyroxine (SYNTHROID) 150 mcg tablet Take 150 mcg by mouth once daily. 0 09/30/2017 Active Comment on above: Take 150 mcg by mout h once daily. liothyronine sodium 0.025 mg oral tablet (19 sources) l-Triiodothyroni ne Start: 05-07-2019 take 1 tablet by mouth once daily liothyronine 25 mcg Tab microgram tab(s), Oral, Daily, Refills(s) 0 Start Date: 05/07/19 Status: Ordered Start: 02-08-2017 take 1 tablet by darren th once daily liothyronine (CYTOMEL) 25 MCG tablet Take 1 Tablet by mouth daily. 30 Tablet 3 02/08/2017 Active Comment on above: Take 25 mcg by mouth once daily. memantine hydrochloride 5 mg oral tablet (4 sources) N-tusfec-Z-aspartat e Receptor Antagonist Start: 2 End: 2 take 1 tablet by mouth once daily memantine (NAMENDA) 5 MG tablet Take 1 Tablet by mouth daily. 30 Tablet 3 07/20/2022 Active tamsulosin hydrochloride 0.4 mg oral capsule (19 sources) alpha-Adrenergic Joan Start: 3 take 1 capsule by mouth once daily tamsulosin 0.4 mg Cap 0.4 mg = 1 cap(s), Oral, Daily, # 30 cap(s), Refills(s) 11, Pharmacy: [facility]/pharmacy #[id number], 170, cm, 06/12/23 12:26:00 EDT, Height/Length Dosing, 86.5, kg, 06/12/23 12:26:00 EDT, Weight Dosing Start Date: 06/12/23 Status: Ordered Start: 11-24-2021 End: 11-19-2022 take 1 capsule by mouth twice daily Flomax 0.4 mg Cap 0.4 mg = 1 cap(s), Oral, BID, X 90 day(s), # 180 cap(s), Refills(s) 3, Pharmacy: [facility]/pharmacy #[id number], 167, cm, 10/05/21 11:32:00 EST, Height/Length Dosing, 83, kg, 10/05/21 11:32:00 EST, Weight Dosing Start Date: 11/24/21 Stop Date: 11/19/22 Status: Ordered Start: 02-08-2017 take 1 mg by mouth once daily tamsulosin 0.4 mg Cap mg cap(s), Oral, Daily, Refills(s) 0 Start Date: 12/02/22 Status: Ordered Comment on above: 0.4 mg once daily. testosterone cypionate 200 mg/ml injectable solution (16 sources) Androgen Start: 05-03-2023 Depo-Testosterone 200 mg/mL intramuscular solution 300 mg, IntraMuscular, q4wk, # 10 mL, Refills(s) 1, Pharmacy: [facility]/pharmacy #[id number], 170, cm, 12/02/22 8:17:00 EST, Height/Length Dosing, 83.2, kg, 03/10/23 8:17:00 EST, Weight Dosing Start Date: 05/03/23 Status: Ordered Start: 09-07-2022 Depo-Testoster one 200 mg/mL intramuscular solution 300 mg, IntraMuscular, q4wk, # 10 mL, Refills(s) 1, [id number] 167, cm, 10/05/21 11:32:00 EST, Height/Length Dosing, 83, kg, 05/10/22 10:08:00 EDT, Weight Dosing Start Date: 09/07/22 Status: Ordered Start: 01-04-2022 Depo-Testoster one 200 mg/mL intramuscular solution 300 mg, IntraMuscular, q4wk, # 10 mL, Refills(s) 1, [id number], 167, cm, 10/05/21 11:32:00 EST, Height/Length Dosing, 83, kg, 10/05/21 11:32:00 EST, Weight Dosing Start Date: 01/04/22 Status: Ordered Start: 12-10-2018 inject 1 mL by intra muscular injection every month testosterone cypionate (DEPO-TESTOSTERONE) 200 mg/mL injection INJECT 1ML INTRAMUSCULARLY EVERY MONTH 1 12/10/2018 Active Testosterone Cyp ionate 200 MG/ML 1.5 mL Intramuscular EVERY 4 WEEKS Active Comment on above: INJECT 1ML INTRAMUSC ULARLY EVERY MONTH Vitamin B Complex injectable solution (3 sources) Start: 05-07-2019 Vitamin B Complex injectable solution Refill(s) 0 Start Date: 05/07/19 Status: Ordered Vitamin D (13 sources) Start: 08-31-2021 Vitamin D International_Unit, Oral, qWeek, Refills(s) 0 Start Date: 08/31/21 Status: Ordered Completed/Discontinued Medications Medication Drug Class(es) Dates Sig (Normalized) Sig (Original) aspirin 325 mg delayed release oral tablet (1 source) Platelet Aggregation Inhibitor, Nonsteroidal Anti-inflammatory Drug Start: 01-09-2018 End: 04-26-2023 take 1 tablet by mouth once daily aspirin, enteric coated (ASPIRIN, ENTERIC COATED) 325 mg EC tablet Take 325 mg by mouth once daily. 2 01/09/2018 04/26/2023 Discontinued (Course of therapy completed) Comment on above: Take 325 mg by mouth once daily. atomoxetine 60 mg oral capsule (1 source) Norepinephrine Reuptake Inhibitor End: 04-26-2023 take 1 capsule by mouth once daily atomoxetine (STRATTERA) 60 mg capsule Take 60 mg by mouth once daily. 0 04/26/2023 Discontinued (Course of therapy completed) Comment on above: Take 60 mg by mouth once daily. chondroitin sulfates 600 mg / glucosamine hydrochloride 750 mg chewable tablet (1 source) End: 04-26-2023 take 750 mg by mouth once daily GLUCOSAMINE HCL/CHONDROITIN ARANDA (GLUCOSAMINE-CHONDROI TIN) 750-600 mg chew Take 750 mg by mouth once daily. 0 04/26/2023 Discontinued (Course of therapy completed) Comment on above: Take 750 mg by mouth once daily. Creatine (1 source) End: 04-26-2023 CREATINE MONOHYDRATE (CREATINE ORAL) Indications: Leukopenia, unspecified type , Thrombocytopenia (HCC) , Hypothyroidism, unspecified type Take by mouth. 0 04/26/2023 Discontinued (Course of therapy completed) Comment on above: Take by mouth. folic acid 1 mg oral tablet (1 source) Start: 02-05-2018 End: 04-26-2023 take 1 tablet by mouth once daily folic acid 1 mg tablet TAKE ONE TABLET BY MOUTH DAILY 30 tablet 5 02/05/2018 04/26/2023 Discontinued (Course of therapy completed) Comment on above: TAKE ONE TABLET BY M OUTH DAILY ibuprofen 200 mg oral tablet (5 sources) Nonsteroidal Anti-inflammatory Drug take 4 tablets by mouth twice daily ibuprofen (ADVIL) 200 mg tablet Take 800 mg by mouth twice daily. 0 Active Ibuprofen (ADVIL ORAL) Take by mouth prn 0 Active Comment on above: Take 800 mg by mouth twice daily. lithium aspartate 20 mg oral capsule (5 sources) take 1 capsule by mouth once daily [place] Aspartate 20 mg cap Take 1 capsule by mouth once daily. 0 Active take 1 capsule by mouth once darius ly Nutritional Supplements (CREATINE) 750 MG CAPS Take 1 Capsule by mouth daily. 0 Active Comment on above: Take 1 capsule by mo uth once daily. omega-3 fatty acids (FISH OIL CONCENTRATE) 1,000 mg cap (1 source) take 1 capsule by mouth twice daily omega-3 fatty acids (FISH OIL CONCENTRATE) 1,000 mg cap Take 2 g by mouth twice daily. 0 Active Comment on above: Take 2 g by mouth tw ice daily. omega-3s/dha/epa/fi sh oil/D3 (VITAMIN-D + OMEGA-3 ORAL) (1 source) Start: 08-31-2021 omega-3s/dha/epa/ fish oil/D3 (VITAMIN-D + OMEGA-3 ORAL) Take by mouth. 0 08/31/2021 Active Comment on above: Take by mouth. 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] Onset: 1 08-24-2011 Chronic Allergic reactions (5 sources) Eczema; Translations: [Dermatitis, unspecified] Onset: 9 05-29-2019 Episodic Asthma (1 source) Asthmatic bronchitis; Translations: [Unspecified asthma, uncomplicated] 11-30-2017 Chronic Cardiac dysrhythmias (11 sources) Atrial fibrillation; Translations: [Unspecified atrial fibrillation] Onset: 7 05-29-2019 Chronic Chronic kidney disease (1 source) Chronic kidney disease stage 3; Translations: [Chronic kidney disease, stage III (moderate)] Chronic Coagulation and hemorrhagic disorders (9 sources) Platelet count below reference range; Translations: [Thrombocytopenia, unspecified] Onset: 8 05-29-2019 Chronic Conditions associated with dizziness or vertigo (1 source) Vertigo; Translations: [Dizziness and giddiness] 11-30-2017 Episodic Diseases of white blood cells (4 sources) Neutropenia, unspecified; Translations: [NEUTROPENIA UNSPECIFIED] Onset: 2 Chronic Disorders usually diagnosed in infancy, childhood, or adolescence (1 source) Attention deficit hyperactivity disorder, predominantly inattentive type; Translations: [Other specified behavioral and emotional disorders with onset usually occurring in childhood and adolescence] 11-30-2017 Chronic Essential hypertension (2 sources) Essential (primary) hypertension; Translations: [Essential (primary) hypertension] Onset: 3 Chronic Genitourinary symptoms and ill-defined conditions (20 sources) Nocturia; Translations: [Poor stream of urine] 03-14-2019 Episodic Hyperplasia of prostate (20 sources) Benign prostatic hypertrophy with outflow obstruction; Translations: [Benign prostatic hyperplasia with lower urinary tract symptoms] Onset: 2 03-14-2019 Chronic Hypertension with complications and secondary hypertension (4 sources) Chronic kidney disease due to hypertension; Translations: [Hypertensive chronic kidney disease with stage 1 through stage 4 chronic kidney disease, or unspecified chronic kidney disease] Onset: 3 Chronic Osteoarthritis (9 sources) Bilateral arthritis of knees; Translations: [Bilateral primary osteoarthritis of knee] Onset: 6 05-29-2019 Chronic Other circulatory disease (1 source) Orthostatic hypotension; Translations: [Orthostatic hypotension] 11-30-2017 Episodic Other connective tissue disease (4 sources) History of total knee arthroplasty; Translations: [Presence of left artificial knee joint] Onset: 7 05-29-2019 Chronic Other connective tissue disease (1 source) Decrease in height; Translations: [Loss of height] 04-26-2023 Episodic Other diseases of kidney and ureters (1 source) Secondary hyperparathyroidism; Translations: [Secondary hyperparathyroidism of renal origin] Chronic Other diseases of kidney and ureters (1 source) Secondary hyperparathyroidism of renal origin Chronic Other diseases of kidney and ureters (1 source) Cyst of kidney, acquired Episodi c Other endocrine disorders (10 sources) Testicular hypofunction; Translations: [Testicular hypofunction] Onset: 2 Chronic Other endocrine disorders (13 sources) Male hypogonadism 03-14-2019 Chronic Other endocrine disorders (5 sources) Testicular hypofunction; Translations: [TESTICULAR HYPOFUNCTION] Onset: 2 Chronic Other endocrine disorders (4 sources) Testicular hyperfunction; Translations: [TESTICULAR HYPERFUNCTION] Onset: 3 Chronic Other injuries and conditions due to external causes (13 sources) H/O: head injury 03-14-2019 Episodic Other male genital disorders (13 sources) Secondary erectile dysfunction 08-31-2021 Chronic Other male genital disorders (2 sources) Male erectile dysfunction, unspecified; Translations: [Erectile dysfunction] Onset: 3 Chronic Other nervous system disorders (4 sources) Disturbance of attention; Translations: [Attention and concentration deficit] Onset: 1 07-05-2011 Chronic Other nervous system disorders (4 sources) Impaired executive functioning; Translations: [Frontal lobe and executive function deficit] Onset: 1 07-05-2011 Chronic Other nervous system disorders (4 sources) Cognitive deficit in communication skills; Translations: [Cognitive communication deficit] Onset: 1 07-05-2011 Chronic Other nervous system disorders (1 source) Aphasia; Translations: [Aphasia] 11-30-2017 Chronic Other nervous system disorders (1 source) Other symptoms and signs involving cognitive functions and awareness; Translations: [Other signs and symptoms involving cognition] Episodic Other nervous system disorders (1 source) Dysarthria; Translations: [Dysarthria and anarthria] 11-30-2017 Episodic Other nutritional; endocrine; and metabolic disorders (1 source) Overweight in adulthood with body mass index of 25 or more but less than 30; Translations: [Body mass index (BMI) 28.0-28.9, adult] Episodic Residual codes; unclassified (5 sources) Sleep apnea; Translations: [Sleep apnea, unspecified] Onset: 9 05-29-2019 Chronic Residual codes; unclassified (1 source) Obstructive sleep apnea syndrome; Translations: [Obstructive sleep apnea (adult) (pediatric)] Chronic Residual codes; unclassified (1 source) Obstructive sleep apnea (adult) (pediatric) Chronic Spondylosis; intervertebral disc disorders; other back problems (11 sources) Cervical spondylosis; Translations: [Other spondylosis with myelopathy, cervical region] Onset: 7 10-13-2006 Chronic Spondylosis; intervertebral disc disorders; other back problems (13 sources) Cervical spine ankylosis; Translations: [Fusion of spine, cervical region] Onset: 1 11-11-2021 Episodic Thyroid disorders (5 sources) Hypothyroidism; Translations: [Hypothyroidism, unspecified] Onset: 1 06-28-2011 Chronic Past or Other Problems Problem Classification Problem Date Documented Date Episodic/Chronic Chronic kidney disease (1 source) Chronic kidney disease Deficiency and other anemia (5 sources) Anemia; Translations: [Anemia, unspecified] Onset: 12-06-2017 05-29-2019 Episodic Intracranial injury (5 sources) Traumatic brain injury; Translations: [Unspecified intracranial injury with loss of consciousness of unspecified duration, initial encounter] Onset: 02-23-2016 02-23-2016 Episodic Nutritional deficiencies (5 sources) Cobalamin deficiency; Translations: [Deficiency of other specified B group vitamins] Onset: 12-21-2017 05-29-2019 Episodic Other connective tissue disease (4 sources) Muscle weakness; Translations: [Muscle weakness (generalized)] Onset: 07-29-2011 07-29-2011 Episodic Other connective tissue disease (1 source) Impingement syndrome of left shoulder; Translations: [IMPINGEMENT SYNDROME LEFT SHOULDER] Onset: 03-09-2022 Episodic Other connective tissue disease (1 source) Impingement syndrome of right shoulder; Translations: [IMPINGEMENT SYNDROME RIGHT SHOULDER] Onset: 03-09-2022 Episodic Other nervous system disorders (4 sources) Incoordination; Translations: [Unspecified lack of coordination] Onset: 07-05-2011 07-05-2011 Episodic Other nervous system disorders (4 sources) Impaired cognition; Translations: [Other symptoms and signs involving cognitive functions and awareness] Onset: 08-24-2011 08-24-2011 Episodic Other screening for suspected conditions (not mental disorders or infectious disease) (1 source) Encounter for screening for malignant neoplasm of prostate; Translations: [ENC SCREEN MALIG NEOPLASM PROSTATE] Onset: 03-09-2022 Episodic Other skin disorders (1 source) Vitiligo; Translations: [Vitiligo] Onset: 02-25-2005 02-25-2005 Episodic Rehabilitation care; fitting of prostheses; and adjustment of devices (12 sources) Patient encounter status; Translations: [Other physical therapy] Onset: 07-05-2011 07-05-2011 Episodic Residual codes; unclassified (8 sources) Amnesia; Translations: [Other amnesia] Onset: 06-28-2011 01-08-2019 Episodic Superficial injury; contusion (4 sources) Traumatic hematoma; Translations: [Contusion of unspecified part of head, initial encounter] Onset: 06-28-2011 06-28-2011 Episodic Viral infection (5 sources) Verruca vulgaris; Translations: [Viral wart, unspecified] Onset: 04-28-2005 05-29-2019 Episodic Results Test Name Value Interpretation Reference Range Facility Telephone Encounteron 2022 [employer] Authentication Interface Message Text Patient has not been seen by this specialist in more than 1 year. Please contact patient to schedule office visit. Thank you Normal [facility] Office Visiton 09-08-2023 Follow-up visit [id number] [address] Lacey 1960 M Date Provider Department Center 09/08/2023 DemiBAKARI DAILY [facility] Iftikhar . Family History Problem Relation Age of Onset Cancer Mother Diabetes Mother Coronary artery disease Father Stroke Father Cancer Father Family Status - Relation Status Age at Mother Father Level of Service:[id number] MS OFFICE/OUTPATIENT NEW MODERATE MDM 45 MINUTES Reason for Visit and Comments: Follow-up [[id number]] - Seen George William 08/10/2023 [facility] Office Visiton 08-10-2023 Follow-up visit [id number] [address] Lacey 1960 M Date Provider Department Center 08/10/2023 Isa-GEORGE WILLIAM Family History Problem Relation Age of Onset Cancer Mother Diabetes Mother Coronary artery disease Father Stroke Father Cancer Father Family Status - Relation Status Age at Mother Father Level of Service:[id number] MS OFFICE/OUTPATIENT ESTABLISHED MOD MDM 30-[address] [facility] Orders Onlyon 08-10-[id number] Lacey 1960 Date Provider Department [place] 08/10/2023 NEO TAYLOR Family History Problem Relation Age of Onset Cancer Mother Diabetes Mother Coronary artery disease Father Stroke Father Cancer Father Family Status - Relation Status Age at Mother Father [facility] HPon 07-11-2023 HP H&P reviewed. The patient was examined and there are no changes to the H&P. George William MD, MPH, [facility], [facility], [facility] Interventional Cardiology Pager Email: [email or web address] NURSNOTEon 07-11-2023 NURSNOTE Pt performed and pas sed bedside swallow study. RN educated pt on d/c instructions. RN encouraged pt to voice any questions or concerns. Pt verbalizes no questions or concerns at this time. Pt was wheeled off of unit with all of belongings. [facility] NURSNOTE Pre certification no t yet gone through, per Dr. William he will ensure the bill is taken care of. [facility] Orders Onlyon 07-11-[id number] 1960 M Date Provider Department Center 07/11/2023 Kim43-WILLIAM PIZANO [facility] INF Stephanie Heal Family History Problem Relation Age of Onset Cancer Mother Diabetes Mother Coronary artery disease Father Stroke Father Cancer Father Family Status - Relation Status Age at Mother Father Normal [facility] Telephoneon 07-10-[id number] Lacey 1960 M Date Provider Department Center 07/10/2023 LavelleElsa-CHERIE XU [facility] [place] Heart[facility]AS Family History Problem Relation Age of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 183.04 lb BMI 28.79 What to do next You Need to Schedule the Following Appointments Follow Up with HERRERA PRIETO, DRAA Doty When: Where: [address] [place] [address]- Medications What How Much When Instructions Unchanged testosterone (Depo-Testosterone 200 mg/ mL intramuscular solution) 300 Milligram Intramuscular Every 4 weeks Unchanged amantadine (amantadine 100 mg Cap) By Mouth 2 times a day Contact prescribing physician if questions or concerns Unchanged ascorbic acid (Vitamin C) Every day Contact prescribing physician if questions or concerns Unchanged ergocalciferol (Vitamin D) By Mouth Every week Contact prescribing physician if questions or concerns Unchanged levothyroxine (levothyroxine 150 mcg (0.15 mg) Tab) By Mouth Every day Contact prescribing physician if questions or concerns Unchanged liothyronine (liothyronine 25 mcg Tab) By Mouth Every day Contact prescribing physician if questions or concerns Unchanged multivitamin (Vitamin B Complex injectable solution) Contact prescribing physician if questions or concerns Unchanged tamsulosin (tamsulosin 0.4 mg Cap) By Mouth Every day Contact prescribing physician if questions or concerns Test Results Urnls Dip Stick Auto w/o Microscopy POC 62801 (12/02/2022) Bilirubin Urine Dipstick - Negative Blood Urine Dipstick - Negative Glucose Urine Dipstick - Negative Ketones Urine Dipstick - Negative Leukocytes Urine Dipstick - Negative Nitrite Urine Dipstick - Negative Protein Urine Dipstick - Negative Specific [place] Urine Dipstick - >=1.030 Urine Appearance Urine Dipstick - Clear Urine Color Urine Dipstick - Yellow Urobilinogen Urine Dipstick - Normal 0.2-1 EU/dl pH Urine Dipstick - 6 Allergies No Known Medication Allergies Problems Ongoing - Any problem that you are currently receiving treatment for. BPH with urinary obstruction H/O head injury Hypogonadism male Male impotence Nocturia Protein in urine Weak urine stream Education Materials Benign Prostatic Hyperplasia Benign prostatic hyperplasia (BPH) is an enlarged prostate gland that is caused by the normal aging process and not by cancer. The prostate is a walnut-sized gland that is involved in the production of semen. It is located in front of the rectum and below the bladder. The bladder stores urine and the urethra is the tube that carries the urine out of the body. The prostate may get bigger as a man gets older. An enlarged prostate can press on the urethra. This can make it harder to pass urine. The build-up of urine in the bladder can cause infection. Back pressure and infection may progress to bladder damage and kidney (renal) failure. What are the causes? This condition is part of a normal aging process. However, not all men develop problems from this condition. If the prostate enlarges away from the urethra, urine flow will not be blocked. If it enlarges toward the urethra and compresses it, there will be problems passing urine. What increases the risk? This condition is more likely to develop in men over the age of 50 years. What are the signs or symptoms? Symptoms of this condition include: ? Getting up often during the night to urinate. ? Needing to urinate frequently during the day. ? Difficulty starting urine flow. ? Decrease in size and strength of your urine stream. ? Leaking (dribbling) after urinating. ? Inability to pass urine. This needs immediate treatment. ? Inability to completely empty your bladder. ? Pain when you pass urine. This is more common if there is also an infection. ? Urinary tract infection (UTI). How is this diagnosed? This condition is diagnosed based on your medical history, a physical exam, and your symptoms. Tests will also be done, such as: ? A post-void bladder (more content not included)... Normal [facility] Patient Educationon 12-03-19 Patient Education Urology Benign Prostatic Hyperplasia Benign prostatic hyperplasia (BPH) is an enlarged prostate gland that is caused by the normal aging process and not by cancer. The prostate is a walnut-sized gland that is involved in the production of semen. It is located in front of the rectum and below the bladder. The bladder stores urine and the urethra is the tube that carries the urine out of the body. The prostate may get bigger as a man gets older. An enlarged prostate can press on the urethra. This can make it harder to pass urine. The build-up of urine in the bladder can cause infection. Back pressure and infection may progress to bladder damage and kidney (renal) failure. What are the causes? This condition is part of a normal aging process. However, not all men develop problems from this condition. If the prostate enlarges away from the urethra, urine flow will not be blocked. If it enlarges toward the urethra and compresses it, there will be problems passing urine. What increases the risk? This condition is more likely to develop in men over the age of 50 years. What are the signs or symptoms? Symptoms of this condition include: ? Getting up often during the night to urinate. ? Needing to urinate frequently during the day. ? Difficulty starting urine flow. ? Decrease in size and strength of your urine stream. ? Leaking (dribbling) after urinating. ? Inability to pass urine. This needs immediate treatment. ? Inability to completely empty your bladder. ? Pain when you pass urine. This is more common if there is also an infection. ? Urinary tract infection (UTI). How is this diagnosed? This condition is diagnosed based on your medical history, a physical exam, and your symptoms. Tests will also be done, such as: ? A post-void bladder scan. This measures any amount of urine that may remain in your bladder after you finish urinating. ? A digital rectal exam. In a rectal exam, your health care provider checks your prostate by putting a lubricated, gloved finger into your rectum to feel the back of your prostate gland. This exam detects the size of your gland and any abnormal lumps or growths. ? An exam of your urine (urinalysis). ? A prostate specific antigen (PSA) screening. This is a blood test used to screen for prostate cancer. ? An ultrasound. This test uses sound waves to electronically produce a picture of your prostate gland. Your health care provider may refer you to a specialist in kidney and prostate diseases (urologist). How is this treated? Once symptoms begin, your health care provider will monitor your condition (active surveillance or watchful waiting). Treatment for this condition will depend on the severity of your condition. Treatment may include: ? Observation and yearly exams. This may be the only treatment needed if your condition and symptoms are mild. ? Medicines to relieve your symptoms, including: ? Medicines to shrink the prostate. ? Medicines to relax the muscle of the prostate. ? Surgery in severe cases. Surgery may include: ? Prostatectomy. In this procedure, the prostate tissue is removed completely through an open incision or with a laparoscope or robotics. ? Transurethral resection of the prostate (TURP). In this procedure, a tool is inserted through the opening at the tip of the penis (urethra). It is used to cut away tissue of the inner core of the prostate. The pieces are removed through the same opening of the penis. This removes the blockage. ? Transurethral incision (TUIP). In this procedure, small cuts are made in the prostate. This lessens the prostate's pressure on the urethra. ? Transurethral microwave thermotherapy (TUMT). This procedure uses microwaves to create heat. The heat destroys and removes a small amount of prostate tissue. ? Transurethral needle ablation (TUNA). This procedure uses radio frequencies to destroy and remove a small amount of prostate tissue. ? Interstitial laser coagulation (ILC). This procedure uses a laser to destroy and remove a small amount of prostate tissue. ? Transurethral electrovaporization (TUVP). This procedure uses electrodes to destroy and remove a small amount of prostate tissue. ? Prostatic urethral lift. This procedure inserts an implant to push the lobes of the prostate away from the urethra. Follow these instructions at home: ? Take [id number] and prescription medicines only as told by your health care provider. ? Monitor your symptoms for any changes. Contact your health care provider with any changes. ? Avoid drinking large amounts of liquid before going to bed or out in public. ? Avoid or reduce how much caffeine or alcohol you drink. ? Give yourself time when you urinate. ? Keep all follow-up visits as told by your health care provider. This is important. Contact a health care provider if: ? You have unexplained back pain. ? Your symptoms do not get better with treatment. ? You d (more content not included)... Normal [facility] Urology Office/Clinic Noteon 12-02-2022 Urology Office/Clinic Note Chief Complaint hypogonadism HPI Staff 6 month f/u with testosterone level. Previous dx of hypogonadism and BPH with urinary obstruction. Current testosterone level done 11/08/22 is 993 and previous done 04/27/22 was 404. Pt continues taking Tamsulosin qd. Dysuria: no Incomplete bladder emptying: no Hematuria: no Frequency: no Urgency: no Nocturia: up 1x every other night Stream: good stream Leaking: no Post void dripping: no Wearing pads/ Depends: no Urge incontinence: no Stress incontinence: no Incontinence without Sensory Awareness: no Abdominal pain: no Flank pain: no Sexual complaints: no History of Present Illness Tests reviewed: reviewed UA, PSA, and testosterone level. I have reviewed the previous health record information and history for this patient from Dr. Mendoza. I have reviewed and verified the staff HPI to be accurate for this encounter. There have been no associated fever, chills, flank pain, or blood in the urine. Denies any urinary infections since last encounter. Review of Systems PHQ Score Initial Depression Screen Score: 0 ROS - Provider Constitutional: denies weight loss, denies hot flashes. Eyes: denies eye problems. Gastrointestinal: denies nausea, denies vomiting. Cardiovascular: denies chest pain or angina. Integumentary: no dryness Musculoskeletal: denies musculoskeletal symptoms. ENMT: denies otolaryngeal symptoms. Respiratory: no shortness of breath. Heme/Lymph: denies easy bleeding tendency, denies easy bruising tendency. Psychiatric: no confusion, no anxiety. Genitourinary: See HPI. Physical Exam Vitals & Measurements HR: 70(Peripheral) RR: 16 BP: 137/84 HT: 67 in HT: 170 cm WT: 83.2 kg WT: 183.04 lb BMI: 28.79 General Appearance: alert, no distress, well nourished, well developed male. Genitourinary: normal scrotum, normal testes, normal urethra, normal epididymis, normal vas deferens/spermatic cord. Flank Pain: none. Bladder: nonpalpable. Assessment/Plan 1. BPH with urinary obstruction (N40.1: Benign prostatic hyperplasia with lower urinary tract symptoms) Patient continues Tamsulosin 0.4mg in the morning. Reports mild nocturia, every other night. States he has limited fluids prior to bedtime which has helped. Has a strong stream. Intermittent urgency but denies incontinence. Emptying well. Overall not bothersome at this time. Pt. to continue medication management and call for refills when needed. AURELIA at last visit 40 gm, no nodules. UA today neg. Discussed OAB medication if urgency would worsen. Pt. inquired about outlet procedures, states his brother had a TURP done. Educated on UroLift, REZUM, and TURP today. Symptoms do not warrant surgical intervention at this time. Will reassess at next visit. PSA 06/15/22 - 0.79 09/06/21 - 0.7 2. Hypogonadism male (E29.1: Testicular hypofunction) Current testosterone level 993 drawn 11/08/22. Previous level 404 drawn 04/27/22. Shares that he is taking a supplement for his workout regimen and it contains Testosterone. Explained to pt. that there is no proven research that a supplement can truly raise testosterone. Continues Testosterone injections 300mg IM q4wks, last injection 11/01/22. Pt. forgot medication for injection today. Due to high levels pt. will not receive an injection today. I recommend repeating levels in 1 month. Pt. to call our office to receive results. Next step will be based on results. Pt. agrees w/ plan. Follow up in 6 months with testosterone level. #3. Erectile dysfunction Reports his erection is not as firm as he desires. Does not wish to start treatment at this time, but understands it is available if he desires. Follow-up With When Contact Information HERRERA PRIETO, Vianey Crawford, [address] [place] [address]- Additional Instructions: 6 months w/ testosterone Patient Education Benign Prostatic Hyperplasia I, Mirian Shepard, personally scribed for Dr. Mendoza on 12/02/2022 08:54:27. . Documentation recorded by the scribeMirian, accurately reflects the services(s) I performed and decisions made by me. Authenticated by Dr. Mendoza on 12/02/2022 09:04:48. Problem List/Past Medical History Ongoing BPH with urinary obstruction H/O head injury Hypogonadism male Male impotence Nocturia Protein in urine Weak urine stream Historical No qualifying data Procedure/Surgical History Cystourethroscopy with dilation of urethral stricture (12/21/2016), Hernia repair, Knee arthroplasty, Knee replacement, Rotator cuff repair. Medications amantadine 100 mg Cap, Oral, BID Depo-Testosterone 200 mg/mL intramuscular solution, 300 mg, IntraMuscular, q4wk, 1 refills levothyroxine 150 mcg (0.15 mg) Tab, Oral, Daily liothyronine 25 mcg Tab, Oral, Daily tamsulosin 0.4 mg Cap, Oral, Daily Vitamin B Complex injectable solution Vitamin C, Daily Vitamin D, Oral, qWeek Allergie (more content not included)... Normal [facility] Comment on above: Result Comment: Elec tronically Signed By: Vianey MENDOZA MD\.br\Date and Time Signed: 12/02/22 09:04 EST\.br\Electronically Co-Signed By: Mirian Shepard\.br\Date and Time Co-Signed: 12/02/22 09:01 EST Lab Reportson 11-29-2022 Lab Reports [id number] [facility] [id number] D:[address] [facility] XR TSPINE 3 VIEWSon 11-18-19 23 XR TSPINE 3 VIEWS EXAMINATION: XR LSPI NE MIN 4 VIEWS, XR TSPINE 3 VIEWS HISTORY: Lumbar radiculopathy ; chronic back pain radiating into legs COMPARISON: XR L-spine 05/24/2021 FINDINGS: BONES: Mild right convex curvature of the upper thoracic spine. Mechanical fusion C5-6. Multilevel mild degenerative disc disease of mid thoracic spine. No fracture or spondylolisthesis. Grade 2 anterior listhesis of L4 on 5 with complete loss of disc space and subsequent degenerative endplate changes. L4 pars interarticularis defects and marked degenerative facet arthropathy L4-5, L5-S1. DISC SPACES: Marked narrowing L4-5. Moderate narrowing L5-S1. PARASPINOUS: Negative. No paraspinous abnormality is seen. OTHER: Negative. IMPRESSION: 1. Mild dextroscoliosis and multilevel mild degenerative disc disease of mid thoracic spine. 2. Marked degenerative changes of lower lumbar spine, not appreciably changed. Electronically authenticated by: ALFREDITO LOAIZA Date: 2022-11-18 16:11 Normal [facility] TESTOSTERONE, TOTALon 2022 Testosterone [Mass/Vol] 993 ng/dL Critically high 264-916 [facility] Comment on above: Result Comment: Adul t male reference interval is based on a population of healthy nonobese males (BMI <30) between 19 and 39 years old. Brad et.al. JCEM 2017,102;3846-5236. PMID: [id number]. Performed By: #### T ESTTOT #### [facility] [address] [place] [address] Dr. Reuben Morrison Ambulatory Visit Summaryon 0 11-01-2022 Ambulatory Visit Summary VIANEY LACEY :1960 Visit Date:11/01/2022 Ambulatory Visit Instructions Your Diagnosis Hypogonadism male Your Care Team Attending Physician - JENNIFER BARRY, KYLE Marin Primary Care Physician - Ilda Hendrickson MD This Is Your Medications List amantadine (amantadine 100 mg Cap) ascorbic acid (Vitamin C) ergocalciferol (Vitamin D) levothyroxine (levothyroxine 150 mcg (0.15 mg) Tab) liothyronine (liothyronine 25 mcg Tab) multivitamin (Vitamin B Complex injectable solution) omega-3 polyunsaturated fatty acids (Fish Oil) tamsulosin (Flomax 0.4 mg Cap) testosterone (Depo-Testosterone 200 mg/mL intramuscular solution) Procedures Performed Cystourethroscopy with dilation of urethral stricture (12/21/2016), Hernia repair, Knee arthroplasty, Knee replacement, Rotator cuff repair. What to do next Scheduled Follow-Up Appointments Monday 10:00 AM EST With: Tres PRIETO, Taylor Hat[place] Where: [facility] Ambulatory Visit Summaryon 0 10-05-2022 Ambulatory Visit Summary VIANEY LACEY :1960 Visit Date:10/05/2022 Ambulatory Visit Instructions Your Care Team Attending Physician - KYLE RODRIGUEZ PA-C Primary Care Physician - Ilda Hendrickson MD This Is Your Medications List amantadine (amantadine 100 mg Cap) ascorbic acid (Vitamin C) ergocalciferol (Vitamin D) levothyroxine (levothyroxine 150 mcg (0.15 mg) Tab) liothyronine (liothyronine 25 mcg Tab) multivitamin (Vitamin B Complex injectable solution) omega-3 polyunsaturated fatty acids (Fish Oil) tamsulosin (Flomax 0.4 mg Cap) testosterone (Depo-Testosterone 200 mg/mL intramuscular solution) Procedures Performed Cystourethroscopy with dilation of urethral stricture (12/21/2016), Hernia repair, Knee arthroplasty, Knee replacement, Rotator cuff repair. What to do next Scheduled Follow-Up Appointments Monday 10:00 AM EST Where: [facility] CBC AUTO DIFFon 06-15-2022 BASO # 0.0 103/ul Normal 0.0-0.1 [facility] Comment on above: Performed By: #### C BC #### [facility] [address] [address] [address] Reuben Morrison Basophils/100 WBC (Bld) 0.4 % Normal 0.2-2.0 [facility] Comment on above: Performed By: #### C BC #### [facility] [address] [place] [address] Dr. Reuben Morrison EO # 0.1 103/ul Normal 0.0-0.7 [facility] Comment on above: Performed By: #### C BC #### [facility] [address] [place] [address] Dr. Reuben Morrison Eosinophils/100 WBC (Bld) 1.3 % Normal 0.9-7.0 [facility] Comment on above: Performed By: #### C BC #### [facility] [address] [place] [address] Dr. Reuben Morrison Erythrocyte distribution width (RBC) [Ratio] 14.3 % Normal 11.0-15.0 [facility] Comment on above: Performed By: #### C BC #### [facility] [address] [place] [address] Dr. Reuben Morrison Hematocrit (Bld) [Volume fraction] 48.9 % Normal 42.0-54.0 [facility] Comment on above: Performed By: #### C BC #### [facility] [address] [place] [address] Dr. Reuben Morrison Hemoglobin (Bld) [Mass/Vol] 16.6 g/dL Normal 14.0-18.0 [facility] Comment on above: Performed By: #### C BC #### [facility] [address] [place] [address] Dr. Reuben Morrison IG # 0.01 10e3/ul Normal 0.00-0.03 [facility] Comment on above: Performed By: #### C BC #### [facility] [address] [place] [address] Dr. Reuben Morrison IG % 0.2 % Normal 0.0-0.5 [facility] Comment on above: Performed By: #### C BC #### [facility] [address] [place] [address] Dr. Reuben Morrison LYMPH # 1.1 103/ul Critically low 1.2-3.8 [facility] Comment on above: Performed By: #### C BC #### [facility] [address] [place] [address] Dr. Reuben Morrison Lymphocytes/100 WBC (Bld) 24.3 % Normal 20.5-60.0 [facility] Comment on above: Performed By: #### C BC #### [facility] [address] [place] [address] Dr. Reuben Morrison MANUAL DIFF REQ NO Normal [facility] Comment on above: Performed By: #### C BC #### [facility] [address] [place] [address] Dr. Reuben Morrison MCH (RBC) [Entitic mass] 29.5 pg Normal 25.9-34.0 [facility] Comment on above: Performed By: #### C BC #### [facility] [address] [place] [address] Dr. Reuben Morrison MCHC (RBC) [Mass/Vol] 33.9 g/dL Normal 29.9-35.2 [facility] Comment on above: Performed By: #### C BC #### [facility] [address] [place] [address] Dr. Reuben Morrison MCV (RBC) [Entitic vol] 86.9 fL Normal 80.0-94.0 [facility] Comment on above: Performed By: #### C BC #### [facility] [address] [place] [address] Dr. Reuben Morrison MONO # 0.5 103/ul Normal 0.3-0.8 [facility] Comment on above: Performed By: #### C BC #### [facility] [address] [place] [address] Dr. Reuben Morrison Monocytes/100 WBC (Bld) 9.6 % Normal 1.7-12.0 [facility] Comment on above: Performed By: #### C BC #### [facility] [address] [place] [address] Dr. Reuben Morrison NEUT # 3.0 103/ul Normal 1.4-6.5 [facility] Comment on above: Performed By: #### C BC #### [facility] [address] [address] [address] Reuben Morrison Neutrophils/100 WBC (Bld) 64.2 % Normal 43.0-75.0 [facility] Comment on above: Performed By: #### C BC #### [facility] [address] [address] [address] Reuben Morrison Platelet mean volume (Bld) [Entitic vol] 9.7 fL Normal 9.5-13.5 [facility] Comment on above: Performed By: #### C BC #### [facility] [address] [address] [address] Reuben Morrison PLT 130 103/ul Critically low 150-450 [facility] Comment on above: Result Comment: plts . appear slightly decreased Performed By: #### C BC #### [facility] [address] [place] [address] Dr. Reuben Morrison RBC 5.63 106/ul Normal 4.70-6.10 [facility] Comment on above: Performed By: #### C BC #### [facility] [address] [address] [address] Reuben Morrison WBC 4.7 103/ul Normal 4.0-11.0 [facility] Comment on above: Performed By: #### C BC #### [facility] [address] [place] [address] Dr. Reuben Morrison TESTOSTERONE, TOTALon 2021 Testosterone [Mass/Vol] 404 ng/dL Normal 264-916 [facility] Comment on above: Result Comment: Adul t male reference interval is based on a population of healthy nonobese males (BMI <30) between 19 and 39 years old. Brad, et.al. JCEM 2017,102;[id number]. PMID: [id number]. Performed By: #### T ESTTOT #### [facility] [address] [place] [address] Dr. Reuben Morrison CBC AUTO DIFFon 04-27-2022 BASO # 0.0 103/ul Normal 0.0-0.1 [facility] Comment on above: Performed By: #### T ESTTOT #### [facility] [address] [place] [address] Dr. Reuben Morrison Basophils/100 WBC (Bld) 1.0 % Normal 0.2-2.0 [facility] Comment on above: Performed By: #### T ESTTOT #### [facility] [address] [place] [address] Dr. Reuben Morrison EO # 0.1 103/ul Normal 0.0-0.7 [facility] Comment on above: Performed By: #### T ESTTOT #### [facility] [address] [place] [address] Dr. Reuben Morrison Eosinophils/100 WBC (Bld) 1.8 % Normal 0.9-7.0 [facility] Comment on above: Performed By: #### T ESTTOT #### [facility] [address] [place] [address] Dr. Reuben Morrison Erythrocyte distribution width (RBC) [Ratio] 14.0 % Normal 11.0-15.0 [facility] Comment on above: Performed By: #### T ESTTOT #### [facility] [address] [place] [address] Dr. Reuben Morrison Hematocrit (Bld) [Volume fraction] 47.3 % Normal 42.0-54.0 [facility] Comment on above: Performed By: #### T ESTTOT #### [facility] [address] [place] [address] Dr. Reuben Morrison Hemoglobin (Bld) [Mass/Vol] 16.2 g/dL Normal 14.0-18.0 [facility] Comment on above: Performed By: #### T ESTTOT #### [facility] [address] [place] [address] Dr. Reuben Morrison IG # 0.01 10e3/ul Normal 0.00-0.03 [facility] Comment on above: Performed By: #### T ESTTOT #### [facility] [address] [place] [address] Dr. Reuben Morrison IG % 0.3 % Normal 0.0-0.5 [facility] Comment on above: Performed By: #### T ESTTOT #### [facility] [address] [place] [address] Dr. Reuben Morrison LYMPH # 1.1 103/ul Critically low 1.2-3.8 [facility] Comment on above: Performed By: #### T ESTTOT #### [facility] [address] [place] [address] Dr. Reuben Morrison Lymphocytes/100 WBC (Bld) 26.6 % Normal 20.5-60.0 [facility] Comment on above: Performed By: #### T ESTTOT #### [facility] [address] [place] [address] Dr. Reuben Morrison MANUAL DIFF REQ NO Normal [facility] Comment on above: Performed By: #### T ESTTOT #### [facility] [address] [place] [address] Dr. Reuben Morrison MCH (RBC) [Entitic mass] 29.5 pg Normal 25.9-34.0 [facility] Comment on above: Performed By: #### T ESTTOT #### [facility] [address] [place] [address] Dr. Reuben Morrison MCHC (RBC) [Mass/Vol] 34.2 g/dL Normal 29.9-35.2 [facility] Comment on above: Performed By: #### T ESTTOT #### [facility] [address] [place] [address] Dr. Rueben Morrison MCV (RBC) [Entitic vol] 86.2 fL Normal 80.0-94.0 [facility] Comment on above: Performed By: #### T ESTTOT #### [facility] [address] [place] [address] Dr. Reuben Morrison MONO # 0.4 103/ul Normal 0.3-0.8 [facility] Comment on above: Performed By: #### T ESTTOT #### [facility] [address] [place] [address] Dr. Reuben Morrison Monocytes/100 WBC (Bld) 9.0 % Normal 1.7-12.0 [facility] Comment on above: Performed By: #### T ESTTOT #### [facility] [address] [place] [address] Dr. Reuben Morrison NEUT # 2.5 103/ul Normal 1.4-6.5 [facility] Comment on above: Performed By: #### T ESTTOT #### [facility] [address] [place] [address] Dr. Reuben Morrison Neutrophils/100 WBC (Bld) 61.3 % Normal 43.0-75.0 [facility] Comment on above: Performed By: #### T ESTTOT #### [facility] [address] [place] [address] Dr. Reuben Morrison Platelet mean volume (Bld) [Entitic vol] 9.6 fL Normal 9.5-13.5 [facility] Comment on above: Performed By: #### T ESTTOT #### [facility] [address] [place] [address] Dr. Reuben Morrison PLT 128 103/ul Critically low 150-450 [facility] Comment on above: Performed By: #### T ESTTOT #### [facility] [address] [place] [address] Dr. Reuben Morrison RBC 5.49 106/ul Normal 4.70-6.10 [facility] Comment on above: Performed By: #### T ESTTOT #### [facility] [address] [place] [address] Dr. Reuben Morrison WBC 4.0 103/ul Normal 4.0-11.0 [facility] Comment on above: Performed By: #### T ESTTOT #### [facility] [address] [place] [address] Dr. Reuben Morrison INSULINon 03-08-2022 Insulin 4.3 uIU/mL Normal 2.6-24.9 [facility] Comment on above: Performed By: #### T ESTTOT #### [facility] [address] [place] [address] Dr. Reuben Morrison TESTOSTERONE, TOTALon 2021 Testosterone [Mass/Vol] ng/dL Critically high 264-916 [facility] Comment on above: Result Comment: Adul t male reference interval is based on a population of healthy nonobese males (BMI <30) between 19 and 39 years old. stephania Salinas.al. JCEM 2017,102;[id number]. PMID: [id number]. Performed By: #### T ESTTOT #### [facility] [address] [address] [address] Reuben Morrison CBC AUTO DIFFon 03-07-2022 BASO # 0.1 103/ul Normal 0.0-0.1 [facility] Comment on above: Performed By: #### C BC #### [facility] [address] [place] [address] Dr. Reuben Morrison Basophils/100 WBC (Bld) 1.4 % Normal 0.2-2.0 [facility] Comment on above: Performed By: #### C BC #### [facility] [address] [place] [address] Dr. Reuben Morrison EO # 0.1 103/ul Normal 0.0-0.7 [facility] Comment on above: Performed By: #### C BC #### [facility] [address] [place] [address] Dr. Reuben Morrison Eosinophils/100 WBC (Bld) 1.4 % Normal 0.9-7.0 [facility] Comment on above: Performed By: #### C BC #### [facility] [address] [place] [address] Dr. Reuben Morrison Erythrocyte distribution width (RBC) [Ratio] 14.7 % Normal 11.0-15.0 [facility] Comment on above: Performed By: #### C BC #### [facility] [address] [place] [address] Dr. Reuben Morrison Hematocrit (Bld) [Volume fraction] 49.8 % Normal 42.0-54.0 [facility] Comment on above: Performed By: #### C BC #### [facility] [address] [place] [address] Dr. Reuben Morrison Hemoglobin (Bld) [Mass/Vol] 16.4 g/dL Normal 14.0-18.0 [facility] Comment on above: Performed By: #### C BC #### [facility] [address] [place] [address] Dr. Reuben Morrison IG # 0.01 10e3/ul Normal 0.00-0.03 [facility] Comment on above: Performed By: #### C BC #### [facility] [address] [place] [address] Dr. Reuben Morrison IG % 0.3 % Normal 0.0-0.5 [facility] Comment on above: Performed By: #### C BC #### [facility] [address] [place] [address] Dr. Reuben Morrison LYMPH # 0.9 103/ul Critically low 1.2-3.8 [facility] Comment on above: Performed By: #### C BC #### [facility] [address] [place] [address] Dr. Reuben Morrison Lymphocytes/100 WBC (Bld) 24.7 % Normal 20.5-60.0 [facility] Comment on above: Performed By: #### C BC #### [facility] [address] [place] [address] Dr. Reuben Morrison MANUAL DIFF REQ NO Normal [facility] Comment on above: Performed By: #### C BC #### [facility] [address] [place] [address] Dr. Reuben Morrison MCH (RBC) [Entitic mass] 28.9 pg Normal 25.9-34.0 [facility] Comment on above: Performed By: #### C BC #### [facility] [address] [place] [address] Dr. Reuben Morrison MCHC (RBC) [Mass/Vol] 32.9 g/dL Normal 29.9-35.2 [facility] Comment on above: Performed By: #### C BC #### [facility] [address] [place] [address] Dr. Reuben Morrison MCV (RBC) [Entitic vol] 87.7 fL Normal 80.0-94.0 [facility] Comment on above: Performed By: #### C BC #### [facility] [address] [place] [address] Dr. Reuben Morrison MONO # 0.4 103/ul Normal 0.3-0.8 [facility] Comment on above: Performed By: #### C BC #### [facility] [address] [place] [address] Dr. Reuben Morrison Monocytes/100 WBC (Bld) 9.5 % Normal 1.7-12.0 [facility] Comment on above: Performed By: #### C BC #### [facility] [address] [place] [address] Dr. Reuben Morrison NEUT # 2.3 103/ul Normal 1.4-6.5 [facility] Comment on above: Performed By: #### C BC #### [facility] [address] [place] [address] Dr. Reuben Morrison Neutrophils/100 WBC (Bld) 62.7 % Normal 43.0-75.0 [facility] Comment on above: Performed By: #### C BC #### [facility] [address] [place] [address] Dr. Reuben Morrison Platelet mean volume (Bld) [Entitic vol] 9.8 fL Normal 9.5-13.5 [facility] Comment on above: Performed By: #### C BC #### [facility] [address] [place] [address] Dr. Reuben Morrison PLT 149 103/ul Critically low 150-450 [facility] Comment on above: Performed By: #### C BC #### [facility] [address] [place], [place] [id number] Dr. Reuben Morrison RBC 5.68 106/ul Normal 4.70-6.10 [facility] Comment on above: Performed By: #### C BC #### [facility] [address] [place] [address] Dr. Reuben Morrison WBC 3.7 103/ul Critically low 4.0-11.0 [facility] Comment on above: Performed By: #### C BC #### [facility] [address] [address] [address] Reuben Morrison FREE THYROXINE INDEX T7on FTI 2.50 Normal 1.30-4.50 [facility] Comment on above: Performed By: #### C MP, T7, TSH, LIPID #### [facility] [address] [place] [address] Dr. Reuben Morrison T3U 39.0 % Normal 33.0-40.0 [facility] Comment on above: Performed By: #### C MP, T7, TSH, LIPID #### [facility] [address] [place] [address] Dr. Reuben Morrison T4 [Mass/Vol] 6.40 ug/dL Normal 4.50-12.10 [facility] Comment on above: Performed By: #### C MP, T7, TSH, LIPID #### [facility] [address] [place] [address] Dr. Reuben Morrison GLYCOHEMOGLOBIN A1Con 2021 ADA RECOMMENDATION SEE BELOW Normal [facility] Comment on above: Result Comment: ADA RECOMMENDED LIMIT 4.0 - 6.0 ADA THERAPEUTIC TARGET < 7.0 ACTION SUGGESTED > 7.0 Performed By: #### T ESTTOT #### [facility] [address] [place] [address] Dr. Reuben Morrison Glucose [Mass/Vol] 105 mg/dL Normal [facility] Comment on above: Performed By: #### T ESTTOT #### [facility] [address] [place] [address] Dr. Reuben Morrison HbA1c (Bld) [Mass fraction] 5.3 % Normal 4.5-6.2 [facility] Comment on above: Performed By: #### T ESTTOT #### [facility] [address] [place] [address] Dr. Reuben Morrison IRONon 03-07-2022 Iron [Mass/Vol] 100.0 ug/dL Normal 65.0-175.0 [facility] Comment on above: Performed By: #### I BLAIR, PSASC, VITB12, VITAD #### [facility] [address] [address] [address] Reuben Morrison LIPID PROFILEon 03-07-2022 CHOL-HDL RATIO NORM SEE BELOW Normal [facility] Comment on above: Result Comment: 3.3 - 4.4 LOW RISK 4.4 - 7.1 AVERAGE RISK 7.1 - 11.0 MODERATE RISK >11.0 HIGH RISK Performed By: #### C MP, T7, TSH, LIPID #### [facility] [address] [address] [address] Reuben Morrison Cholesterol [Mass/Vol] 157 mg/dL Normal <=200 [facility] Comment on above: Performed By: #### C MP, T7, TSH, LIPID #### [facility] [address] [address] [address] Reuben Morrison Cholesterol in HDL [Mass/Vol] 48 mg/dL Normal 40-60 [facility] Comment on above: Performed By: #### C MP, T7, TSH, LIPID #### [facility] [address] [address] [address] Reuben Morrison Cholesterol in LDL [Mass/Vol] 96.0 mg/dL Normal [facility] Comment on above: Performed By: #### C MP, T7, TSH, LIPID #### [facility] [address] [address] [address] Reuben Morrison Cholesterol.total/C holesterol in HDL [Mass ratio] 3.3 {ratio} Normal [facility] Comment on above: Performed By: #### C MP, T7, TSH, LIPID #### [facility] [address] [address] [address] Reuben Morrison HDL NORMAL > or = 60 mg/dl - LO W CARDIOVASCULAR RISK <40 mg/dl - HIGH CARDIOVASCULAR RISK Normal [facility] Comment on above: Performed By: #### C MP, T7, TSH, LIPID #### [facility] [address] [address] [address] Reuben Morrison LDL CALC NORMAL SEE BELOW Normal [facility] Comment on above: Result Comment: <100 mg/dl OPTIMAL 100 - 129 mg/dl NEAR OR ABOVE OPTIMAL 130 - 159 mg/dl BORDERLINE HIGH 160 - 189 mg/dl HIGH >190 mg/dl VERY HIGH Performed By: #### C MP, T7, TSH, LIPID #### [facility] [address] [address] [address] Reuben Morrison Triglyceride [Mass/Vol] 65 mg/dL Normal <=150 [facility] Comment on above: Performed By: #### C MP, T7, TSH, LIPID #### [facility] [address] [address] [address] Reuben Morrison VLDL CALC 13.0 mg/dL Normal [facility] Comment on above: Performed By: #### C MP, T7, TSH, LIPID #### [facility] [address] [place] [address] Dr. Reuben Morrison PROF 14(COMP METB)on 022 Albumin [Mass/Vol] 3.7 g/dL Normal 3.4-5.0 [facility] Comment on above: Performed By: #### C MP, T7, TSH, LIPID #### [facility] [address] [address] [address] Reuben Morrison Albumin/Globulin [Mass ratio] 1.3 {ratio} Normal [facility] Comment on above: Performed By: #### C MP, T7, TSH, LIPID #### [facility] [address] [address] [address] Reuben Morrison ALP [Catalytic activity/Vol] 53 U/L Normal 46-116 [facility] Comment on above: Performed By: #### C MP, T7, TSH, LIPID #### [facility] [address] [address] [address] Reuben Morrison ALT [Catalytic activity/Vol] 37 U/L Normal 16-63 [facility] Comment on above: Performed By: #### C MP, T7, TSH, LIPID #### [facility] [address] [address] [address] Reuben Morrison Anion gap [Moles/Vol] 11.0 mmol/L Normal [facility] Comment on above: Performed By: #### C MP, T7, TSH, LIPID #### [facility] [address] [place] [address] Dr. Reuben Morrison AST [Catalytic activity/Vol] 28 U/L Normal 15-37 [facility] Comment on above: Performed By: #### C MP, T7, TSH, LIPID #### [facility] [address] [place] [address] Dr. Reuben Morrison Bilirubin [Mass/Vol] 0.9 mg/dL Normal 0.2-1.0 [facility] Comment on above: Performed By: #### C MP, T7, TSH, LIPID #### [facility] [address] [place] [address] Dr. Reuben Morrison Calcium [Mass/Vol] 8.9 mg/dL Normal 8.5-10.1 [facility] Comment on above: Performed By: #### C MP, T7, TSH, LIPID #### [facility] [address] [place] [address] Dr. Reuben Morrison Chloride [Moles/Vol] 106 mmol/L Normal 98-107 [facility] Comment on above: Performed By: #### C MP, T7, TSH, LIPID #### [facility] [address] [place] [address] Dr. Reuben Morrison CO2 [Moles/Vol] 28.2 mmol/L Normal 21.0-32.0 [facility] Comment on above: Performed By: #### C MP, T7, TSH, LIPID #### [facility] [address] [place] [address] Dr. Reuben Morrison Creatinine [Mass/Vol] 1.55 mg/dL Critically high 0.70-1.30 [facility] Comment on above: Performed By: #### C MP, T7, TSH, LIPID #### [facility] [address] [place] [address] Dr. Reuben Morrison EGFR-AF GERMAN 55 mL/min/1.73m2 Critically low >=60 [facility] Comment on above: Performed By: #### C MP, T7, TSH, LIPID #### [facility] [address] [address] [address] Reuben Morrison EGFR-NON AF GERMAN 46 mL/min/1.73m2 Critically low >=60 [facility] Comment on above: Performed By: #### C MP, T7, TSH, LIPID #### [facility] [address] [address] [address] Reuben Morrison Globulin (S) [Mass/Vol] 2.9 g/dL Normal [facility] Comment on above: Performed By: #### C MP, T7, TSH, LIPID #### [facility] [address] [address] [address] Reuben Morrison Glucose [Mass/Vol] 88 mg/dL Normal 74-106 [facility] Comment on above: Performed By: #### C MP, T7, TSH, LIPID #### [facility] [address] [address] [address] Reuben Morrison Potassium [Moles/Vol] 4.2 mmol/L Normal 3.5-5.1 [facility] Comment on above: Performed By: #### C MP, T7, TSH, LIPID #### [facility] [address] [address] [address] Reuben Morrison Protein [Mass/Vol] 6.6 g/dL Normal 6.4-8.2 [facility] Comment on above: Performed By: #### C MP, T7, TSH, LIPID #### [facility] [address] [address] [address] Reuben Morrison Sodium [Moles/Vol] 141 mmol/L Normal 136-145 [facility] Comment on above: Performed By: #### C MP, T7, TSH, LIPID #### [facility] [address] [address] [address] Reuben Morrison Urea nitrogen [Mass/Vol] 13.0 mg/dL Normal 7.0-18.0 [facility] Comment on above: Performed By: #### C MP, T7, TSH, LIPID #### [facility] [address] [address] [address] Reuben Morrison Urea nitrogen/Creatinine [Mass ratio] 8.4 mg/mg Normal [facility] Comment on above: Performed By: #### C MP, T7, TSH, LIPID #### [facility] [address] [place] [address] Dr. Reuben Morrison TSHon 03-07-2022 TSH 0.091 uIU/mL Critically low 0.358-3.740 [facility] Comment on above: Performed By: #### C MP, T7, TSH, LIPID #### [facility] [address] [place] [address] Dr. Reuben Morrison TSH RANGE SEE BELOW Normal [facility] Comment on above: Result Comment: <0.3 4 UIU/ml HYPERTHYROID 0.34-5.60 UIU/ml EUTHYROID >5.60 UIU/ml HYPOTHYROID Performed By: #### C MP, T7, TSH, LIPID #### [facility] [address] [place] [address] Dr. Reuben Morrison VITAMIN B12on 03-07-2022 Cobalamin (Vitamin B12) [Mass/Vol] 3126.0 pg/mL Critically high 193.0-986.0 [facility] Comment on above: Performed By: #### T ESTTOT #### [facility] [address] [place] [address] Dr. Reuben Morrison VITAMIN D 25 OHon 03-07-2022 VIT D 25-OH 90.4 ng/mL Normal [facility] Comment on above: Performed By: #### T ESTTOT #### [facility] [address] [place] [address] Dr. Reuben Morrison VIT D RANGES SEE BELOW Normal [facility] Comment on above: Result Comment: <20 ng/mL Vit D deficient 20 - <30 ng/mL Vit D insufficient 30 - 100 ng/mL Vit D sufficient >100 ng/mL Potential Toxicity Performed By: #### T ESTTOT #### [facility] [address] [place] [address] Dr. Reuben Morrison XR SHOULDER RICHARD 2V or >on XR SHOULDER RICHARD 2V or > EXAM: XR SHOULDER RICHARD 2V or > HISTORY: Impingement syndrome of shoulder region COMPARISON: None. TECHNIQUE: 3 views of the right shoulder and 3 views of the left shoulder were obtained. FINDINGS: There is bilateral joint space narrowing with marginal spurring at the glenohumeral joints. The right acromioclavicular joint is preserved. There is a fragmented osteophyte at the left acromial clavicular joint. ACDF is visualized. IMPRESSION: 1. Moderate bilateral glenohumeral joint osteoarthritis. 2. Mild left acromial clavicular joint osteoarthritis. 3. No evidence of acute fracture or subluxation. Electronically authenticated by: ERIN HANSEN Date: 2022-03-07 16:26 Normal [facility] Vital Signs Date Time Vital Sign Value Performing Clinician Facility 07-27-2023 10:00-0400 Body height 168.91 cm [facility] Other 07-27-2023 10:00-0400 Body mass index (BMI) [Ratio] 28.55 kg/m2 [facility] Other 07-27-2023 10:00-0400 Body temperature 96.2 [degF] [facility] Antno[facility] Other 07-27-2023 10:00-0400 Body weight 81.47 kg [facility] Other [facility] Other 07-27-2023 10:00-0400 Diastolic blood pressure 87 mm[Hg] [facility] Other [facility] Other 07-27-2023 10:00-0400 Respiratory rate 16 /min [facility] Other [facility] Other 07-27-2023 10:00-0400 SaO2% (BldA) [Mass fraction] 94 % Sandoavl [facility] Other [facility] Other 07-27-2023 10:00-0400 Systolic blood pressure 130 mm[Hg] [facility] Other 06-12-2023 12:25-0400 Blood Pressure Location Vianey MENDOZA [facility] 06-12-2023 12:25-0400 Diastolic blood pressure 74 mm[Hg] Vianey MENDOZA [facility] 06-12-2023 12:25-0400 Heart rate 68 /min Vianey MENDOZA [facility] 06-12-2023 12:25-0400 Respiratory rate 16 /min Vianey MENDOZA [facility] 06-12-2023 12:25-0400 Systolic blood pressure 128 mm[Hg] Vianey MENDOZA [facility] 04-26-2023 11:15-0400 Body height 168.4 cm Shawanda Hernandez PA-C Work Phone: [facility] 04-26-2023 11:15-0400 Body temperature 98.01 [degF] Shawanda Hernandez PA-C Work Phone: [facility] 04-26-2023 11:15-0400 Body weight 86.95 kg Shawanda Hernandez PA-C Work Phone: [facility] 04-26-2023 11:15-0400 Diastolic blood pressure 94 mm[Hg] Shawanda Hernandez PA-C Work Phone: [facility] 04-26-2023 11:15-0400 Heart rate 74 /min Shawanda Hernandez PA-C Work Phone: [facility] 04-26-2023 11:15-0400 SaO2% (BldA) [Mass fraction] 97 % Shawanad Hernandez PA-C Work Phone: [facility] 04-26-2023 11:15-0400 Systolic blood pressure 147 mm[Hg] Shawanda Hernandez PA-C Work Phone: [facility] 12-02-2022 08:12-0500 Blood Pressure Location Vianeyzayra MENDOZA [facility] 12-02-2022 08:12-0500 Diastolic blood pressure 84 mm[Hg] Vianey MENDOZA [facility] 12-02-2022 08:12-0500 Heart rate 70 /min Vianey MENDOZA [facility] 12-02-2022 08:12-0500 Respiratory rate 16 /min Vianeyzayra MENDOZA [facility] 12-02-2022 08:12-0500 Systolic blood pressure 137 mm[Hg] Vianey MENDOZA [facility] 07-20-2022 14:11-0400 Body mass index (BMI) [Ratio] 28.98 kg/m2 Jovita Virk MD Work Phone: [facility] 07-20-2022 14:11-0400 Body temperature 98.01 [degF] [facility] MD [facility] 07-20-2022 14:11-0400 Body weight 83.92 kg Jovita Virk MD [facility]: [facility] 07-20-2022 14:11-0400 Diastolic blood pressure 86 mm[Hg] Jovita Virk MD [facility] 07-20-2022 14:11-0400 Heart rate 98 /min Jovita Virk MD Work Phone: [facility] 07-20-2022 14:11-0400 Respiratory rate 14 /min Jovita Virk MD Work Phone: [facility] 07-20-2022 [id number] SaO2% (BldA) [Mass fraction] 100 % Jovita Virk MD Work Phone: [facility] 07-20-2022 14:11-0400 Systolic blood pressure 138 mm[Hg] Jovita Virk MD Work Phone: [facility] Encounters Encounter Date Encounter Type Care Provider Facility Start: 11-27-2023 ambulatory Vianey Velazquez ty:[facility]HANA [facility] Start: 10-16-2023 ambulatory Vianey Velazquez ty:[facility]HA[facility] Start: 09-08-2023 End: 09-08-2023 ambulatory [facility] Start: 08-10-2023 End: 08-10-2023 ambulatory [facility] Start: 07-27-2023 End: 07-27-2023 ambulatory Sandoval Knight Other [employer] Other Start: 07-27-2023 Office outpatient ne w 45 minutes Sandoval Knight [facility] Start: 07-11-2023 ambulatory [facility] Start: 07-11-2023 End: 07-11-2023 ambulatory [facility] Start: 07-10-2023 ambulatory Vianey Velazquez ty:[facility] Start: 06-28-2023 End: 06-28-2023 ambulatory [facility] Start: 06-12-2023 End: 06-13-2023 ambulatory Vianey MENDOZA Facility:[facility]NA [facility] Start: 06-12-2023 End: 06-12-2023 Patient encounter procedure Vianey MENDOZA [facility] Start: 05-30-2023 ambulatory Taylor Joshua Facility:Tania [facility] Start: 05-03-2023 End: 05-04-2023 ambulatory Taylor Joshua Facility:REHANA [facility] Start: 05-03-2023 End: 05-03-2023 Patient encounter procedure Taylor Joshua [facility] Start: 04-26-2023 End: 04-26-2023 ambulatory ILDA HENDRICKSON Facility:[facility] Start: 04-26-2023 End: 04-26-2023 Patient encounter procedure Shawanda Hernandez PA-C Work Phone: [facility] Comment on above: Height loss (Primary Dx) Start: 04-05-2023 End: 04-06-2023 ambulatory Taylor Joshua Facility:REHANA [facility] Start: 03-08-2023 End: 03-09-2023 ambulatory KYLE RODRIGUEZ Facility: [facility] Start: 03-08-2023 End: 03-08-2023 Patient encounter procedure [facility]IGUEZ [facility] Start: 02-07-2023 End: 02-08-2023 ambulatory Vianey MENDOZA Facility:[facility]HANA [facility] Start: 01-20-2023 End: 01-21-[address] ILDA HENDRICKSON . Facility: Start: 12-02-2022 End: 12-03-2022 ambulatory Vianey MENDOZA Facility:[facility] Start: 12-02-2022 End: 12-02-2022 Patient encounter procedure Vianey MENDOZA [facility] Start: 11-18-2022 End: 11-19-[address] ILDA HENDRICKSON . Facility: Start: 11-08-2022 End: 11-09-2022 ambulatory TAYLOR JOSHUA . Facility: Start: 11-01-2022 End: 11-02-2022 ambulatory KYLE RODRIGUEZ Facility:[facility] Start: 11-01-2022 End: 11-01-2022 Patient encounter procedure KYLE RODRIGUEZ [facility] Start: 10-05-2022 End: 10-06-2022 ambulatory KYLE RODRIGUEZ Facility:[facility] Start: 10-05-2022 End: 10-05-2022 Patient encounter procedure KYLE RODRIGUEZ [facility] Start: 09-07-2022 End: 09-08-2022 ambulatory Taylor Joshua Facility:[facility] Start: 09-07-2022 End: 09-07-2022 Patient encounter procedure Taylor Joshua [facility] Start: 08-28-2022 Letter encounter Jovita Virk MD Work Phone: [employer] Start: 08-17-2022 End: 08-18-2022 ambulatory Taylor Joshua Facility:[facility] Start: 08-17-2022 End: 08-17-2022 Patient encounter procedure Taylor Joshua [facility] Start: 08-12-2022 Telephone encounter Aarti vences MA, [facility] [employer] Work Phone: [facility] Start: 07-21-2022 End: 07-22-[address] ILDA HENDRICKSON . 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 Comment on above: Refill Start: 03-21-[address] ILDA HENDRICKSON . Facili ty:[facility] Start: 03-17-[address] ILDA HENDRICKSON . Facili ty:[facility] Start: 03-09-2022 Encounter for genera l adult medical examination without abnormal findings DR ILDA HENDRICKSON . [facility] Start: 03-07-2022 End: 03-08-2022 Encounter for general adult medical examination without abnormal findings DR ILDA HENDRICKSON . Facility:[facility] Start: 03-07-2022 End: 03-08-[address] ILDA HENDRICKSON . Facility:[facility] Start: 03-01-2022 End: 03-01-2022 Patient encounter procedure Saeed Cantu Jr. [facility] Start: 02-01-2022 End: 02-01-2022 Patient encounter procedure Saeed Cantu Jr. [facility] Start: 01-04-2022 End: 01-04-2022 Patient encounter procedure Saeed Cantu Jr. [facility] Procedures Date Procedure Procedure Detail Performing Clinician Start: 09-08-2023 Follow-up visit Follow-up BAKARI SANTOYO Start: 06-15-[address] FABIÁN HENDRICKSON . Comment on above: Performed By: #### T ESTTOT #### [facility] [address] [address] [address] Reuben Morrison Start: 03-07-[address] FABIÁN HENDIRCKSON . Comment on above: Performed By: #### I BLAIR, PSASC, VITB12, VITAD #### [facility] [address], [place] [address] Dr. Reuben Morrison Start: 12-21-2016 Cystourethroscopy wi th dilation of urethral stricture Saeed Cantu Jr. Arthroplasty of knee Saeed Cantu Jr. Comment on above: Left side Hernia repair Saeed vasquez Repair of musculoten dinous cuff of shoulder Saeed Cantu Jr. Plan of Treatment Date Care Activity Detail Author Start: 09-04-2031 Urine microalbumin profile DTAP,TDAP,TD (2 - Tdap) [facility] Start: 06-15-2027 PROSTATE CANCER SCREENING DISCUSSION PROSTATE CANCER SCREENING DISCUSSION [facility] Start: 05-26-2023 Influenza vaccination INFLUENZA (#1) [facility] Start: 09-25-2022 DEPRESSION ASSESSMENT DEPRESSION ASSESSMENT [facility] Start: 09-20-2022 COVID-19 Vaccine (5 - Booster for Pfizer series) COVID-19 Vaccine (5 - Booster for Pfizer series) [facility] Start: 09-20-2022 COVID-19 VACCINE (5 - Pfizer series) COVID-19 VACCINE (5 - Pfizer series) [facility] Start: 07-19-2022 End: 07-19-2022 Patient encounter procedure 07/19/2022 Office Visit Physical Medicine & Rehab/PM&R Jovita Virk MD [address] [place] [phone] [facility] Start: 06-25-2022 Influenza vaccination Influenza Vaccine (#1) [facility] Start: 05-31-2022 Shingles (RZV) Vaccine (2 of 2) Shingles (RZV) Vaccine (2 of 2) [facility] Start: 01-19-2022 COVID-19 Vaccine (4 - Booster for Pfizer series) COVID-19 Vaccine (4 - Booster for Pfizer series) [facility] Start: 11-15-2021 COVID-19 Vaccine (4 - Booster for Pfizer series) COVID-19 Vaccine (4 - Booster for Pfizer series) [facility] Start: 09-05-2021 Lipid panel Cholesterol [facility] Start: 12-04-2020 DIABETES SCREEN DIABETES SCREEN [facility] Start: 11-23-2014 Annual wellness visit Annual Wellness Visit (G0438) [facility] Start: 06-10-2012 Thyroid stimulating hormone measurement TSH [facility] Start: 2009 Measurement of occult blood in single stool specimen FIT [facility] Start: 2009 Screening for malignant neoplasm of colon CRC Screening [facility] Start: 2009 Shingles (RZV) Vaccine (1 of 2) Shingles (RZV) Vaccine (1 of 2) [facility] Start: 02-22-2004 COLOGUARD (FIT-DNA) COLOGUARD (FIT-DNA) [facility] Start: 02-22-2004 Colonoscopy COLONOSCOPY [facility] Start: 02-22-2004 COLORECTAL CANCER SCREENING COLORECTAL CANCER SCREENING [facility] Start: 02-22-[address] COLONOGRAPHY [facility] Start: 02-22-2004 FECAL OCCULT BLOOD FECAL OCCULT BLOOD [facility] Start: 02-22-2004 SIGMOIDOSCOPY SIGMOIDOSCOPY [facility] Start: 1994 LIPID SCREEN LIPID SCREEN [facility] Start: 1977 ANNUAL PCP TEAM CHRONIC DISEASE VISIT ANNUAL PCP TEAM CHRONIC DISEASE VISIT [facility] Start: 1977 Hepatitis C screening [facility] Start: 1977 HEPATITIS C SCREENING HEPATITIS C SCREENING [facility] Start: 1977 HIV SCREENING HIV SCREENING [facility] Start: 1977 SPIROMETRY SPIROMETRY [facility] Start: 1977 Tetanus + diphtheria + acellular pertussis vaccine (product) Tdap Booster [facility] Start: 1974 HIV screening HIV Test [facility] Start: 1965 PNEUMOCOCCAL (1 - PCV) PNEUMOCOCCAL (1 - PCV) [facility] Start: 1959 Screening for malignant neoplasm of colon Colonoscopy [facility] Immunizations Immunization Date Immunization Notes Care Provider Fa [facility] 08-29-2022 zoster vaccine recombinant Shawanda Hernandez PA-C Work Phone: [facility] 07-25-2022 Influenza, injectabl e, Madin [place] Canine Kidney, preservative free, quadrivalent Jovita Virk MD Work Phone: [facility] 04-05-2022 zoster vaccine recombinant Jovita Virk MD Work Phone: [facility] 09-04-2021 diphtheria, tetanus toxoids and pertussis vaccine Jovita Vrik MD Work Phone: [facility] 08-25-2021 SARS-CoV-2 (COVID-19 ) Ad26 vaccine, recombinant Saeed Cantu Jr. [facility] 08-10-2021 influenza, injectabl e, quadrivalent, preservative free Jovita Virk MD Work Phone: [facility] 08-10-2021 influenza virus vaccine, unspecified formulation Jovita Virk MD Work Phone: [facility] 06-25-2021 influenza virus vaccine, unspecified formulation Saeed Cantu Jr. [facility] 12-22-2020 Pfizer (12+ yrs) SARS-COV-2 (COVID-19) vaccine, mRNA, spike protein, LNP, pres. free, 30 mcg/0.3mL dose (MRC=035) Jovita Virk MD Work Phone: [facility] 11-30-2020 Pfizer (12+ yrs) SARS-COV-2 (COVID-19) vaccine, mRNA, spike protein, LNP, pres. free, 30 mcg/0.3mL dose (UUP=436) Jovita Virk MD Work Phone: [facility] 08-25-2020 influenza virus vaccine, unspecified formulation Saeed Cantu Jr. [facility] 06-30-2020 influenza, injectabl e, quadrivalent, preservative free Jovita Virk MD Work Phone: [facility] 12-25-2019 SARS-CoV-2 (COVID-19 ) mRNA BNT-162b2 vax Saeed Cantu Jr. [facility] 11-24-2019 SARS-CoV-2 (COVID-19 ) mRNA BNT-162b2 ctx Saeed Cantu Jr. [facility] Payers Date Payer Category Payer Unknown [id number] 2022 Unknown [id number] 2017 Unknown [id number] 2017 Unknown [id number] 2013 Medicare [id number] 1959 Medicare [id number] 1959 Self-pay [id number] 1959 Unknown [id number] 2.16.84 0.1.708784.3.579.2.593 1959 Unknown [id number] 2.16.84 0.1.014443.3.579.2.593 1959 Unknown [id number] 2.16.84 0.1.796766.3.579.2.593 1959 Unknown [id number] 2.16.84 0.1.768486.3.579.2.593 1959 Unknown [id number] 2.16.84 0.1.183924.3.579.2.593 1959 Unknown [id number] 2.16.84 0.1.713344.3.579.2.593 1959 Unknown [id number] 2.16.84 0.1.787920.3.579.2.593 1959 Unknown [id number] 2.16.84 0.1.030023.3.579.2.59 1959 Unknown [id number] 2.16.84 0.1.959696.3.579.2.593 1959 Unknown [id number] 2.16.84 0.1.407184.3.579.2.59 1959 Unknown [id number] 2.16.84 0.1.059069.3.579.2.593 1959 Unknown [id number] 2.16.8 40.1.407588.3.579.2.72 1959 Unknown [id number] 2.16.8 40.1.843572.3.579.2.72 1959 Unknown [id number] 2.16.8 40.1.790332.3.579.2.72 1959 Unknown [id number] 2.16.8 40.1.347751.3.579.2.72 1959 Unknown [id number] 2.16.8 40.1.346872.3.579.2.72 1959 Unknown [id number] 2.16.8 40.1.433225.3.579.2.72 1959 Unknown [id number] 2.16.8 40.1.927797.3.579.2.72 1959 Unknown [id number] 2.16.8 40.1.272927.3.579.2.727 1959 Unknown [id number] 2.16.8 40.1.094844.3.579.2.727 1959 Unknown [id number] 2.16.8 40.1.448200.3.579.2.727 1959 Unknown [id number] 2.16.8 40.1.496508.3.579.2.727 1959 Unknown [id number] 2.16.8 40.1.684342.3.579.2.727 1959 Unknown [id number] 2.16.8 40.1.638434.3.579.2.727 1959 Unknown [id number] 2.16.8 40.1.960428.3.579.2.727 Unknown [id number] 2.16.84 0.1.979614.3.579.2.593 Social History Date Type Detail Facility Start: 10-05-2021 End: 06-12-2023 Tobacco smoking status Never smoked tobacco (finding) [facility] Tobacco smoking status Never [facility] Start: 01-03-2019 End: 04-26-2023 Sex Assigned At Male [facility] Start: 08-24-2011 End: 04-26-2023 Tobacco use and exposure Smokeless tobacco non-user [facility] Start: 12-07-2017 End: 08-12-2022 Alcohol intake Not Asked [facility] Start: 1960 Sex Assigned At Not on file [facility] Start: 08-12-2022 History SDOH Social Connections Phone 1 [facility] Start: 08-12-2022 History SDOH Social Connections Get Together 2 [facility] Start: 08-12-2022 History SDOH Social Connections [facility] 98 [facility] Start: 08-12-2022 Education [facility] Start: 04-26-2023 Alcohol intake Current drinke r of alcohol (finding) [facility] Start: 01-03-2019 End: 04-26-2023 History of Social function [facility] Start: 12-04-2017 [facility] Functional Status Date Assessment Result Facility 06-12-2023 Functional Status N/A [facility] 12-02-2022 Functional Status N/A [facility] Clinical Notes 04-07-2022 to 09-08-2023 Note Date & Type Note Facility 09-08-2023 Note [facility] Consult Note Reason for visit: Afib HPI: Vianey Lacey is a 63 y.o. year old with past medical history of paroxysmal atrial fibrillation, hypothyroidism and low testosterone levels here after recent JAMIN and cardioversion. He was given a monitor which revealed episodes of Afib with RVR but today in clinic. His symptoms of chest pain, shortness of breath, and expanding have resolved being in SR. He continues to have fatigue. He notices that his heart rate is as low as 37 when sitting watching TV. He denies significant lightheadedness or dizziness. He has no syncope. Notably, he was recently taken offHis testosterone due to concerns regarding kidney function. 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 They are weaning of amantadine which was started in the past after a closed head injury. No orthopnea, no paroxysmal tunnel dyspnea no lower extremity edema. PMH: Past Medical History: Diagnosis Date Abnormal ECG Arrhythmia Atrial fibrillation (CMS/HCC) Sleep apnea PSH: Past Surgical History: Procedure Laterality Date BACK SURGERY HERNIA REPAIR REPLACEMENT TOTAL KNEE ONCOLOGIC SHOULDER SURGERY SH: Social Determinants of Health Tobacco Use: Low Risk (09/08/2023) Patient History Smoking Tobacco Use: Never Smokeless Tobacco Use: Never Passive Exposure: Not on file Alcohol Use: Not on file Financial Resource Strain: Not on file Food Insecurity: Not on file Transportation Needs: Not on file Physical Activity: Not on file Stress: Not on file Social Connections: Not on file Intimate Partner Violence: Not on file Depression: Not on file Housing Stability: Not on file Allergies: No Known Allergies Weight: 83kg Visit Vitals BP 140/90 Pulse (!) 45 Temp 36.7 ???C (98 ???F) Resp 18 Ht 1.727 m (5' 8 ) Wt 83 kg (183 lb) SpO2 100% BMI 27.83 kg/m??? Smoking Status Never BSA 2 m??? Meds: Current Outpatient Medications on File Prior to Visit Medication Sig Dispense Refill amantadine (Symmetrel) 100 mg capsule Take 1 capsule every day by oral route for 30 days. carvedilol (Coreg) 6.25 mg tablet Take 1 tablet (6.25 mg) by mouth with breakfast and with evening meal. 180 tablet 3 Eliquis 5 mg tablet Take 5 mg by mouth in the morning and at bedtime. levothyroxine (Synthroid, Levoxyl) 150 mcg tablet Take 1 tablet by mouth in the morning. liothyronine (Cytomel) 25 mcg tablet Take 0.5 tablets by mouth in the morning. tamsulosin (Flomax) 0.4 mg 24 hr capsule Take 1 capsule every day by oral route for 90 days. vitamin B complex 709-0-135-2-2 mg/mL injection Refill(s) 0 No current facility-administered medications on file prior to visit. ROS: Cardio Basic Cardiovascular Symptoms: no lightheadedness, no leg edema, no syncope, no orthopnea, no PND, no claudication, Constitutional Constitutional: no fever, no night sweats, no significant weight gain, no significant weight loss, no exercise intolerance Eyes Eyes: no dry eyes, no irritation, no vision change ENMT Ears: no difficulty hearing, no ear pain Nose: no frequent nosebleeds, Mouth/Throat: no sore throat, no bleeding gums, no snoring, no dry mouth, no mouth ulcers, no oral abnormalities, no teeth problems Respiratory Respiratory: no cough, no wheezing, no coughing up blood, no sleep apnea Musculoskeletal Musculoskeletal: no muscle aches, no muscle weakness, joint pain+, no back pain, no swelling in the extremities Integumentary Skin no rash, no ulcer, no varicosities, no discoloration, no pruritus Neurologic Neurologic: no loss of consciousness, no weakness, no numbness, no seizures, no dizziness, no headaches Psychiatric Psych: no depression, feeling safe in relationship, no alcohol abuse, Hematologic/Lymphatic Hematologic/Lymphatic no swollen glands, no bruising Physical Exam: Constitutional General Appearance: well-nourished, well-developed, appears stated age Level of Distress: comfortable Psychiatric Mental Status: alert, normal affect Orientation: oriented to time, place, and person Insight: good judgement Eyes Lids and Conjunctivae: non-injected, no xanthelasma ENMT Ears: no lesions on external ear Nose: no lesions on external nose Oropharynx: no cyanosis, no pallor Neck Neck: supple, trachea midline Carotid Arteries: bilateral normal upstroke, no bruits Jugular Veins: normal jugular venous pressure Thyroid: not enlarged Lungs Respiratory Effort: unlabored Chest Exam: normal curvature, no thoracic deformity Auscultation: clear, no wheezing, no rales, no rhonchi Cardiovascular Rate And Rhythm: regular Heart Sounds: normal S1, normal s2, no gallop Systolic Murmur: not heard Diastolic Murmur: not heard Extremities: no cyanosis, no edema, no peripheral signs of emboli Peripheral Pulses Radial Pulse: normal Abdomen Inspection and Palpation: soft, non distended, no bruit, non tender Musculoskeletal Ins (more content not included)... [facility] 08-10-2023 Note [facility] Cardiology Clinic Note Chief Complaint: Patient here for follow up JAMIN/cardioversion. Denies chest pain, SOB, palpitations, and LE edema. Still fatigued. Said his HR goes as low as 37 while awake. HPI: ODILON Lacey is a 63 y.o. male With a history of paroxysmal atrial fibrillation, hypothyroidism and low testosterone levels here in routine follow-up after recent JAMIN and cardioversion. His symptoms of chest pain, shortness of breath, and expanding have resolved. He continues to have fatigue. He notices that his heart rate is as low as 37 when sitting watching TV. He denies significant lightheadedness or dizziness. He has no syncope. Notably, he was recently taken offHis testosterone due to concerns regarding kidney function. 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 They are weaning of amantadine which was started in the past after a closed head injury. No orthopnea, no paroxysmal tunnel dyspnea no lower extremity edema. Cardiology ROS: Review of Systems Constitutional: Positive for malaise/fatigue. Past Medical History He has a past medical history of Abnormal ECG, Arrhythmia, and Atrial fibrillation (CMS/HCC). Surgical History He has a past surgical history that includes Replacement total knee oncologic; Back surgery; Shoulder surgery; and Hernia repair. Social History He reports that he has never smoked. He has never used smokeless tobacco. He reports current alcohol use. No history on file for drug use. Family History Family History Problem Relation Name Age of Onset Cancer Mother Diabetes Mother Coronary artery disease Father Stroke Father Cancer Father Allergies Patient has no known allergies. Medications Current Outpatient Medications: amantadine (Symmetrel) 100 mg capsule, Take 1 capsule every day by oral route for 30 days., Disp: , Rfl: carvedilol (Coreg) 6.25 mg tablet, Take 1 tablet (6.25 mg) by mouth with breakfast and with evening meal., Disp: 180 tablet, Rfl: 3 Eliquis 5 mg tablet, Take 5 mg by mouth in the morning and at bedtime., Disp: , Rfl: levothyroxine (Synthroid, Levoxyl) 150 mcg tablet, Take 1 tablet by mouth in the morning., Disp: , Rfl: liothyronine (Cytomel) 25 mcg tablet, Take 0.5 tablets by mouth in the morning., Disp: , Rfl: tamsulosin (Flomax) 0.4 mg 24 hr capsule, Take 1 capsule every day by oral route for 90 days., Disp: , Rfl: vitamin B complex 587-0-291-2-2 mg/mL injection, Refill(s) 0, Disp: , Rfl: Last Recorded Vitals BP 138/78 (BP Location: Left arm, Patient Position: Sitting) Pulse (!) 44 Ht 1.727 m (5' 8 ) Wt 81.6 kg (180 lb) SpO2 99% BMI 27.37 kg/m??? Physical Examination: GENERAL: alert and oriented x3, well developed, in no acute distress. HEAD: atraumatic, normocephalic. EYES: URMILA, EOMI. NECK: trachea midline, no JVD present, no carotid bruits present. CARDIAC: S1, S2 present. RRR. No murmur, rubs, or gallops. RESPIRATORY: CTAB, no increased effort of breathing, no rales, rhonchi, or wheezing. ABDOMEN: soft, nontender, nondistended. EXTREMITIES: no lower extremity edema, peripheral pulses are 2+ bilaterally. No rash/skin discoloration present. NEURO: strength/sensation equal and symmetric in bilateral upper and lower extremities. PSYCH: appropriate mood, affect, and judgement. Investigations: Stress test 07/10/2023: EKG shows no significant abnormalities. Nuclear imaging shows a small fixed inferior defect without reversible ischemia. Ejection fraction is normal. Transesophageal Echocardiogram-[facility] Name: VIANEY LACEY Study Date: 07/11/2023 12:24 PM B/P: 104 mmHg/74 mmHg HR: Date of : 1960 Location: [facility] Height: 68 in. Age: 63 year(s) Patient Room : Weight: 189 lb. Gender: Male Patient Status: OutPt BSA: 2 m2 Indication: Atrial Fibrillation, Pre-Cardioversion Examination: JAMIN (Transesophageal Echo / CFI) Image Quality: Good Patient Consent: Informed, written consent was obtained for the procedure s p @ c 3 Exam Location: A JAMIN was performed in the [facility] without complications s p @ c 3 Anesthesia Pharyngeal anesthesia with viscous Lidocaine Conclusions Left Ventricle: Global left ventricular systolic function is normal. EF range is estimated at 55 % -60 %. Right Ventricle: The right ventricle is normal in size. Right ventricular systolic function appears normal. Left Atrium: The left atrium appears enlarged. Right Atrium: The right atrium appears enlarged. Mitral Valve: Mild mitral regurgitation. Tricuspid Valve: Mild-moderate tricuspid regurgitation. Overall Conclusions: Immediately following the transesophageal echocardiogram, biphasic cardioversion was performed at 360 J. The patient's rhythm was converted to sinus rhythm Conclusion CONCLUSION: Successful, elective, electrical cardioversion of atrial fibrillation to sinus bradycardia RECOMMENDATIONS: 1. A 12-lead EKG (more content not included)... [facility] 07-27-2023 Evaluation note Encounter Date Diagnosis Assessment Notes Jul, Chronic kidney disease, stage III (moderate) (ICD-10 - N18.30) It was a pleasure to see Mr. Lacey in our office for an evaluation and management of CKD. He likely has a CKD as his renal function has been abnormal since 2019 with baseline serum creatinine around 1.3 to 1.5 mg/dL. His renal ultrasound showed left renal cyst with kidney mass, kidney stone or obstruction. His UA showed no evidence of hematuria or proteinuria. I advised him to avoid NSAIDs or any icxr-ubi-nzqao er supplements. This deanna with the importance of good HTN control the progression of CKD. 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 He appears to be euvolemic. Continue current medications. Advised him to take low-salt diet. Jul, Secondary hyperparathyroidism (ICD-10 - N25.81) Calcium is within normal limit. We will check PTH and vitamin D. Jul, Renal cyst (ICD-10 - N28.1) He has a renal cyst likely benign Jul, BPH (benign prostatic hypertrophy) (ICD-10 - N40.0) Continue Flomax. Continue to follow with urology. Advised him to avoid testosterone due to the risk of transient hypertension. Jul, NANCY (obstructive sleep apnea) (ICD-10 - G47.33) Continue follow-up with the specialist. [facility] Other 10-17-2023 History general Narrative - Reported* Type Description Date Medical History FATIGUE Medical History EDEMA Surgical History CARDIO VERSION 07/11/2023 Surgical History LEFT KNEE REPLACEMENT Surgical History C5-C6 PLATE AND SCREWS Surgical History DOUBLE HERNIA REPAIR Surgical History RIGHT SHOULDER SCOPE Surgical History COLONOSCOPY Surgical History CYSTO SCOPE Hospitalization History SEE ABOVE [facility] Other 10-17-2023 NotePatient: ODILON Lacey Procedure Information Date/Time: 07/11/231199 Procedure: Cardioversion Location: [facility] TAKE [facility] WORK[facility] HOLDING ROOM / [facility] (Cath) Providers: George William MD Clinical information reviewed: Physical Exam Airway Mallampati: III TM distance: >3 FB Neck ROM: full Cardiovascular Rhythm: irregular Dental Pulmonary Breath sounds clear to auscultation Abdominal Abdomen: soft Anesthesia Plan ASA 3 (Conscious sedation) Anesthetic plan and risks discussed with patient. Use of blood products discussed with patient who. [facility] Chief Complaint: Patient here to re-establish care for PAF. Was last seen in [address] Peck. Had echo and ECG yesterday. states they recently returned home from [place]. While they were there, he had intermittent SOB with very swollen ankles. 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 Feeling chest pressure. He is in the process of getting a cpap machine for NANCY. HPI: ODILON Lacey is a 63 y.o. male known to me from prior office visits and his - Nitza Addison who works at [employer]. He has a known h/o PAF in the past ([id number]) thought to be related to thyroid issues and probable NANCY For the past 1 to 2 weeks, he has noticed significant exertional shortness of breath, chest pain, and lower extremity edema. His blood pressure has been significantly elevated in the 170s to 180s systolic. He has had orthopnea and paroxysmal external dyspnea. He has not noticed palpitations until yesterday during his echocardiogram. No significant lightheadedness, no dizziness, no syncope. SOCIAL: drinks 5-6 cups of coffee daily, 3-5 drinks a week. No drugs. When seen in 2019 Has very infrequent paf chadsvasc score 0 none in at least 2 years and last after tka extremely active with no symptoms cath normal 2017 echo 2016 very mildly enlarged la No treatment currently Return prn He says in past he has always know exactly when he had afib Cardiology ROS: Review of Systems Cardiovascular: Positive for chest pain, dyspnea on exertion and leg swelling. All other systems reviewed and are negative. Past Medical History He has no past medical history on file. Surgical History He has no past surgical history on file. Social History He has no history on file for tobacco use, alcohol use, and drug use. Family History No family history on file. Allergies Patient has no allergy information on record. Medications No current outpatient medications on file. Last Recorded Vitals BP (!) 155/115 (BP Location: Right arm, Patient Position: Sitting) Pulse 71 Ht 1.727 m (5' 8 ) Wt 85.7 kg (189 lb) SpO2 96% BMI 28.74 kg/m??? Physical Examination: GENERAL: alert and oriented x3, well developed, in no acute distress. HEAD: atraumatic, normocephalic. EYES: URMILA, EOMI. NECK: trachea midline, no JVD present, no carotid bruits present. CARDIAC: S1, S2 present. RRR. No murmur, rubs, or gallops. RESPIRATORY: CTAB, no increased effort of breathing, no rales, rhonchi, or wheezing. ABDOMEN: soft, nontender, nondistended. EXTREMITIES: no lower extremity edema, peripheral pulses are 2+ bilaterally. No rash/skin discoloration present. NEURO: strength/sensation equal and symmetric in bilateral upper and lower extremities. PSYCH: appropriate mood, affect, and judgement. Investigations: Echo 2018: wnl 12-lead EKG: sinus bradycardia 41 bpm Echocardiogram 06/27/2023 Global left ventricular systolic function is normal; visually estimated ejection fraction is 55% Mild left ventricular hypertrophy Severe biatrial enlargement The right ventricle is mildly dilated with normal systolic function Moderate tricuspid regurgitation; mildly elevated right ventricular systolic pressure Moderate mitral regurgitation Trivial pericardial effusion 12 lead EKG 06/27/2023 Atrial fibrillation, 77 bpm, nonspecific ST-T wave changes Assessment: Paroxysmal atrial fibrillation, [id number] score of 2-3 Chest pain - unstable angina Exertional shortness of breath Elevated s.cr (1.67) Essential hypertension with left ventricular hypertrophy Heart failure with preserved ejection fraction (HFpEF); decompensated Valvular heart disease; moderate mitral regurgitation, moderate tricuspid regurgitation Mildly elevated right ventricular systolic pressure Probable sleep apnea Hypothyroidism Plan: Will start Lasix 20 mg a day Repeat labs early next week We will discontinue metoprolol and start Coreg 25 mg p.o. twice daily. He will need to be started on an angiotensin converting enzyme inhibitor or receptor joan once his serum creatinine improves. Given decompensated heart failure with preserved ejection fraction, chest pain or shortness of breath, I do not believe the sensitivity and specificity of stress testing will be sufficient. I have recommended proceeding with right heart catheterization and coronary angiography via right femoral approach. If no revascularization is needed, this will be followed by a transesophageal echocardiogram plus or minus elective cardioversion given symptomatic atrial fibrillation and decompensated heart failure. He will likely need to be started on an antiarrhythmic depending on the results of his cardiac catheterization; Been evidence of structural heart disease on echo, short-term amiodarone versus sotalol may be options Given heart failure with atrial fibrillation, he will likely be referred to our elect (more content not included)...[facility] 06-12-2023 Hospital Discharge instructions Patient Education 06/12/2023 13:16:00 Hypogonadism, Male Hypogonadism, Male Male hypogonadism is a condition of having a level of testosterone that is lower than normal. Testosterone is a chemical, or hormone, that is made mainly in the testicles. In boys, testosterone is responsible for the development of male characteristics during puberty. These include: Making the penis bigger. Growing and building the muscles. Growing facial hair. Deepening the voice. In adult men, testosterone is responsible for maintaining: An interest in sex and the ability to have sex. Muscle mass. Sperm production. Red blood cell production. Bone strength. Testosterone also gives men energy and a sense of well-being. Testosterone normally decreases as men age and the testicles make less testosterone. Testosterone levels can vary from man to man. Not all men will have signs and symptoms of low testosterone. Weight, alcohol use, medicines, and certain medical conditions can affect a man's testosterone level. What are the causes? This condition is caused by: A natural decrease in testosterone that occurs as a man grows older. This is the main cause of thiscondition. Use of medicines, such as antidepressants, steroids, and opioids. Diseases and conditions that affect the testicles or the making of testosterone. These include: ?Injury or damage to the testicles from trauma, cancer, cancer treatment, or infection. ?Diabetes. ?Sleep apnea. ?Genetic conditions that men are born with. ?Disease of the pituitary gland. This gland is in the brain. It produces hormones. ?Obesity. ?Metabolic syndrome. This is a group of diseases that affect blood pressure, blood sugar, cholesterol, and belly fat. ?HIV or AIDS. ?Alcohol abuse. ?Kidney failure. ?Other long-term or chronic diseases. What are the signs or symptoms? Common symptoms of this condition include: Loss of interest in sex (low sex drive). Inability to have or maintain an erection (erectile dysfunction). Feeling tired (fatigue). Mood changes, like irritability or depression. Loss of muscle and body hair. Infertility. Large breasts. Weight gain (obesity). How is this diagnosed? Your health care provider can diagnose hypogonadism based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
[2023-09-29 12:03] LABS: Basophils Absolute Auto 0.1 10^3/uL (0.0-0.1); Basophils Percent Auto 1.3 % (0.2-2.0); Eosinophils Absolute Auto 0.1 10^3/uL (0.0-0.7); Eosinophils Percent Auto 2.3 % (0.9-7.0); Hematocrit 44.9 % (42.0-54.0); Hemoglobin 15.1 g/dL (14.0-18.0); Lymphocytes Percent Auto 24.8 % (20.5-60.0); Mean Corpuscular HGB Conc 33.6 g/dL (29.9-35.2); Mean Corpuscular Hemoglobin 29.8 pg (25.9-34.0); Mean Corpuscular Volume 88.6 fL (80.0-94.0); Mean Platelet Volume 9.9 fL (9.5-13.5); Monocytes Absolute Auto 0.4 10^3/uL (0.3-0.8); Monocytes Percent Auto 10.6 % (1.7-12.0); Neutrophils Absolute Auto 2.4 10^3/uL (1.4-6.5); Platelet Count 135 10^3/uL (150-450); Red Blood Count 5.07 10^6/uL (4.70-6.10); Red Cell Distribution Width 13.8 % (11.0-15.0); White Blood Count 3.9 10^3/uL (4.0-11.0)
[2023-09-29 12:44] LABS: Creatinine Urine Random 137.31 mg/dL (20.00-300.00)
[2023-09-29 12:52] LABS: Carbon Dioxide 30.8 mmol/L (21.0-32.0); Chloride 98 mmol/L (98-107); Potassium 3.6 mmol/L (3.5-5.1); Sodium 129 mmol/L (136-145)
[2023-09-29 12:53] LABS: Alanine Aminotransferase 51 U/L (16-63); Albumin Globulin Ratio 1.2; Albumin Level 3.8 g/dL (3.4-5.0); Alkaline Phosphatase 60 U/L (46-116); Anion Gap 3.8; Aspartate Amino Transferase 26 U/L (15-37); Bilirubin Total 0.6 mg/dL (0.2-1.0); Calcium 9.5 mg/dL (8.5-10.1); Estimated GFR (African America >60 (>=60); Estimated GFR (Non-African Ame >60 (>=60); Globulin 3.2 g/dL; Glucose 92 mg/dL (74-106)
[2023-09-29 12:55] LABS: Free T4 0.75 ng/dL (0.76-1.46)
[2023-09-29 13:00] LABS: Thyroid Stimulating Hormone 0.134 uIU/mL (0.358-3.740)
[2023-10-03 08:11] LABS: Testosterone 443 ng/dL (264-916)
== END 2023-09-29 11:47 | disposition home or self-care (01) ==
LOC: LAB 11:47
PROVIDERS: PCP Family Medicine; Visit Provider Family Medicine
DX: R53.83 Other fatigue (principal); E03.9 Hypothyroidism, unspecified; I50.30 Unspecified diastolic (congestive) heart failure; I11.0 Hypertensive heart disease with heart failure
CPT/HCPCS: 36415; 80053; 82570; 83880; 84403; 84439; 84443; 85025

== ENCOUNTER 2023-10-03 07:32 | Outpatient (RCR) | payer BC, MEDICARE, SELFPAY | END 2023-10-03 10:00 | disposition home or self-care (01) | LOC: INF 07:32 | PROVIDERS: PCP Family Medicine; Visit Provider Internal Medicine Hematology & Oncology | DX: D72.819 Decreased white blood cell count, unspecified (principal); D69.6 Thrombocytopenia, unspecified | CPT/HCPCS: G0463 ==

== ENCOUNTER 2023-10-16 15:04 | Outpatient (OUT) | payer BC, MEDICARE, SELFPAY ==
--- OUTSIDE RECORDS SUMMARY | 2023-10-16 15:07 | XMS_ITS | CCD ---
Author Name Unknown Address [address] [place] [address] Organization [facility] Care Team Providers Care Lead Game Designer Name Role Phone Ilda Hendrickson Primary Care Physician Moose PRIETO, Jovita Unavailable Jovita Virk MD Unavailable CISCO ., DR GONSALES Primary Care Unavailable HOY ., DR GONSALES Attending Unavailable HOY ., DR GONSALES Admitting Unavailable HOY ., DR GONSALES Consulting Unavailable ZIEBER, DR ALFREDITO Crawford Consulting Unavailable LUE .TAYLOR Admitting Unavailable LUE ., TAYLOR Pompa Attending Unavailable HOY ., DR GONSALES Consulting Unavailable HOY ., DR GONSALES Primary Care Unavailable PEPE Flores, DR SAEED Landa Admitting Unavaila ble PEPE THORPE ., DR SAEED Landa Attending Unavaila fredrick CANTU [...] HOY ., DR GONSALES Primary Care Unavailable PEPE THORPE ., DR SAEED Landa Admitting Unavaila [...] Unavailable Ilda Hendrickson MD Primary Care Provider [phone] ILDA HENDRICKSON Primary Care Unavailable SHAWANDA HERNANDEZ Attending Unavailable Ash Knightul Unavailable Vianey MENDOZA Attending Unavailable JENNIFERKYLE PABON Attending Unavailable LueTaylor Attending Unavailable Lue, Taylor Hatfield Attending Unavailable LueTaylor MMark Attending Unavailable MENDOZA, Vianey R Attending Unavailable [...] Facility (1 source) Ciprofloxacin Drug Allergy Unknown Supponor Other (1 source) No Known Medication Allergies; Translations: [No Known Medication Allergies] Propensity to adverse reactions (disorder) [facility] Repository Medications Current Medications Medication Drug [...] q4wk, # 10 mL, Refills(s) 1, Pharmacy: [facility]/pharmacy #[id number], 167, cm, 10/05/21 11:32:00 EST, Height/Length [...] take 1 capsule by mouth once daily Geneseo-3 Fatty Acids (FISH OIL) 1000 MG CAPS [...] hydrochloride 5 mg oral tablet (4 sources) N-ofosxs-Y-aspartat e Receptor Antagonist Start: 2 End: 2 [...] Daily, # 30 cap(s), Refills(s) 11, Pharmacy: [facility]/pharmacy #[id number], 170, cm, 06/12/23 12:26:00 EDT, Height/Length Dosing, 86.5, kg, 06/12/23 12:26:00 EDT, Weight Dosing Start Date: 06/12/23 Status: Ordered Start: 11-24-2021 End: 11-19-2022 take 1 capsule by mouth twice daily Flomax 0.4 mg Cap 0.4 mg = 1 cap(s), Oral, BID, X 90 day(s), # 180 cap(s), Refills(s) 3, Pharmacy: [facility]/pharmacy #[id number], 167, cm, 10/05/21 11:32:00 EST, Height/Length [...] q4wk, # 10 mL, Refills(s) 1, Pharmacy: [facility]/pharmacy #[id number], 170, cm, 12/02/22 8:17:00 EST, Height/Length Dosing, 83.2, kg, 12/02/22 8:17:00 EST, Weight Dosing Start Date: 05/03/23 Status: Ordered Start: 09-07-2022 Depo-Testoster one 200 mg/mL intramuscular solution 300 mg, IntraMuscular, q4wk, # 10 mL, Refills(s) 1, [id number] 167, cm, 10/05/21 11:32:00 EST, Height/Length Dosing, 83, kg, 05/10/22 10:08:00 EDT, Weight Dosing Start Date: 09/07/22 Status: Ordered Start: 01-04-2022 Depo-Testoster one 200 mg/mL intramuscular solution 300 mg, IntraMuscular, q4wk, # 10 mL, Refills(s) 1, [id number] 167, cm, 10/05/21 11:32:00 EST, Height/Length [...] take 1 capsule by mouth once daily Kerman Aspartate 20 mg cap Take 1 capsule [...] Test Name Value Interpretation Reference Range Facility Letter (Out)on 10-13-2023 Letter (Out) [id number] Lane Lacey 1960 M Date Provider Department Center 10/13/2023 None-None [facility] AUTH PR Medical C Family History Problem Relation Age of Onset Cancer Mother Diabetes Mother Coronary artery disease Father Stroke Father Cancer Father Family Status - Relation Status Age at Mother Father Normal [facility] Orders Onlyon 09-27-[id number] Lacey zonia Mcintosh 1960 [facility] Provider Department Center 09/27/2023 928-ISHMAEL [facility] Family History Problem Relation Age of Onset Cancer Mother Diabetes Mother Coronary artery disease Father Stroke Father Cancer Father Family Status - Relation Status Age at Mother Father Normal [facility] Prep for Procedureon 024 Prep for Procedure [id number] [address] Lacey zonia Mcintosh 1960 [facility] Provider Department Center 09/27/2023 1987-TAYLOR PEREZ [facility] PR HeartVAS Family History Problem Relation Age of Onset Cancer Mother Diabetes Mother Coronary artery disease Father Stroke Father Cancer Father Family Status - Relation Status Age at Mother Father Normal [facility] 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 Please contact patient to schedule office visit. Thank you Normal [employer] [facility] Office Visiton 09-08-2023 Follow-up visit [id number] Lane Lacey zonia Mcintosh 1960 [facility] Provider Department Center 09/08/2023 241-BAKARI SCOTT [facility] Family History Problem Relation Age of Onset Cancer Mother Diabetes Mother Coronary artery disease Father Stroke Father Cancer Father Family Status - Relation Status Age at Mother Father Level of Service:51037 ND OFFICE/OUTPATIENT NEW MODERATE MDM 45 MINUTES Reason for Visit and Comments: Follow-up [510034] - Seen George William 08/10/2023 Normal [facility] Office Visiton 08-10-2023 Follow-up visit [id number] Kathie Laceyreanna Mcintosh 1960 [facility] Provider Department Center 08/10/2023 271-GEORGE WILLIAM Family History Problem Relation Age of Onset Cancer Mother Diabetes Mother Coronary artery disease Father Stroke Father Cancer Father Family Status - Relation Status Age at Mother Father Level of Service:91988 ND OFFICE/OUTPATIENT ESTABLISHED MOD MDM 30-39 MIN Normal [facility] Orders Onlyon 08-10-[id number] Lacey 1960 M Date Provider Department Center 08/10/2023 Michelle-NEO FROST MAXWELL [facility] Family History Problem Relation Age of Onset Cancer Mother Diabetes Mother Coronary artery disease Father Stroke Father Cancer Father Family Status - Relation Status Age at Mother Father [facility] HPon 07-11-2023 HP H&P reviewed. The patient was examined and there are no changes to the H&P. George William MD, MPH, [facility], [facility], [facility] Interventional Cardiology Pager Email: [email or web address] [facility] NURSNOTEon 07-11-2023 NURSNOTE Pt performed and pas sed bedside swallow study. RN educated pt on d/c instructions. RN encouraged pt to voice any questions or concerns. Pt verbalizes no questions or concerns at this time. Pt was wheeled off of unit with all of belongings. [facility] NURSNOTE Pre certification no t yet gone through, per Dr. William he will ensure the bill is taken care of. [facility] Orders Onlyon 07-11-[id number] Lacey 1960 [facility] Provider Department Jones 07/11/2023 6143-WILLIAM PIZANO [facility]F Stephanie Heal Family History Problem Relation Age of Onset Cancer Mother Diabetes Mother Coronary artery disease Father Stroke Father Cancer Father Family Status - Relation Status Age at Mother Father [facility] Telephoneon 07-10-[id number] Lacey 1960 [facility] Provider Department Jones 07/10/2023 XU HAY [facility] PR HeartVAS Family History Problem Relation Age of Onset Cancer Mother Diabetes Mother Coronary artery disease Father Stroke Father Cancer Father Family Status - Relation Status Age at Mother Father [facility] Letter (Out)on 07-05-2023 Letter (Out) [id number] Lane Lacey 1960 [facility] Provider Department Jones 07/05/2023 None-None [facility] AUTH PR Medical C Family History Problem Relation Age of Onset Cancer Mother Diabetes Mother Coronary artery disease Father Stroke Father Cancer Father Family Status - Relation Status Age at Mother Father [facility] 36on 07-03-2023 36 Patient's cornejo mallory stating Dr. Hednrickson stopped lasix after lab results today (in multimedia coordinator for your review). also wants to know [...] to check on status of cath. Thanks. [facility] 06-28-2023 [facility] Cardiology Clinic Note Chief Complaint: Patient here to re-establish care for PAF. Was last seen in [address] Peck. Had echo and ECG yesterday. states they recently returned home from [place]. While they were there, he had intermittent SOB with very swollen ankles. 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 Feeling chest pressure. He is in the process of getting a cpap machine for NANCY. HPI: ODILON Lacey is a 63 y.o. male known to me from prior office visits and his - Nitza Addison who works at [employer]. He has a known h/o PAF in the past ([id number]) thought to be related to thyroid issues [...] ST-T wave changes Assessment: Paroxysmal atrial fibrillation, [id number] score of 2-3 Chest pain - unstable [...] our elect (more content not included)... Normal [facility] Office Visiton 06-28-2023 Follow-up visit [id number] Lane Lacey 1960 M [facility] Provider Department Center 06/28/2023 Isa-GEORGE WILLIAM Family History Problem Relation Age of Onset Cancer Mother Diabetes Mother Coronary artery disease Father Stroke Father Cancer Father Family Status - Relation Status Age at Mother Father Level of Service:43052 ND OFFICE/OUTPATIENT [facility] 60-74 MINUTES Normal [facility] Orders Onlyon 06-28-[id number] Lacey 1960 M Date Provider Department Center 06/28/2023 NEO TAYLOR Family History Problem Relation Age of Onset Cancer Mother Diabetes Mother Coronary artery disease Father Stroke Father Cancer Father Family Status - Relation Status Age at Mother Father Normal [facility] Patient Educationon 06-12-20 Patient Education Urology Hypogonadism, [...] Follow these instructions at home: ? Take cfyx-bnu-jkhxoin and prescription medicines only as told by [...] 05/13/2021 Document (more content not included)... Normal [facility] Urology Office/Clinic Noteon 06-12-2023 Urology Office/Clinic Note [...] ED med. Follow-up With When Contact Information HERRERA PRIETO, Vianey Crawford, DARA In 6 months [facility] [address], [place] [address] [phone] Additional Instructions: w/Testosterone Level, PSA and CBC [...] 0.4 m (more content not included)... Normal [facility] Comment on above: Result Comment: Elec tronically Signed By: Vianey MENDOZA MD\.br\Date and Time Signed: 06/12/23 13:23 EDT\.br\Electronically Co-Signed By: Megan Brunson.br\Date and Time Co-Signed: 06/12/23 13:20 EDT [facility] 05-23-2023 Lab Reports [id number]#1.00C D:127 Normal [facility] Ambulatory Visit Summaryon 0 05-03-2023 Ambulatory Visit Summary VIANEY LACEY :1960 Visit Date:05/03/2023 Ambulatory Visit Instructions Your Diagnosis Hypogonadism male Your Care Team Attending Physician - Taylor Joshua MD Primary Care Physician - Ilda Hendrickson [...] 10:00 AM EDT Where: [facility] [place] Normal [facility] CNOVon 04-26-2023 CNOV Office Visit (SPMESH ) VIANEY LACEY ([id number]) 1960 M Date Time Provider Department 04/26/23 11:00 AM SHAWANDA HERNANDEZ SPMESH During your visit today, we recorded the [...] palpable masses (more content not included)... Normal [facility] Lab Reportson 01-24-2023 Lab Reports [id number]#[id number] D:127 Normal [facility] TESTOSTERONE, TOTALon 2022 Testosterone [Mass/Vol] 347 ng/dL Normal 264-916 [facility] Comment on above: Result Comment: Adul t male reference interval is based on a population of healthy nonobese males (BMI <30) between 19 and 39 years old. Brad et.al. JCEM 2017,102;5483-6155. PMID: 32016378. Performed By: #### T ESTTOT #### [facility] [address] [place] [address] Dr. Reuben Morrison Pre-Certification Formon Pre-Certification Form [id number]#1.00CD :127 Normal [facility] Pre-Certification Form [id number]#1.00C D:127 Normal [facility] Ambulatory Visit Summaryon 0 12-02-2022 Ambulatory Visit Summary VIANEY LACEY :1960 Visit Date:12/02/2022 Ambulatory Visit Instructions Your Diagnosis BPH with urinary obstruction Hypogonadism male Tests Performed Urnls Dip Stick Auto w/o Microscopy POC 26644 Your Care Team Attending Physician - HERRERA PRIETO, Vianey Crawford Primary Care Physician - Hoy MD, Ilda This Is Your Medications List testosterone (Depo-Testosterone [...] Following Appointments Follow Up with HERRERA PRIETO, DARA Doty When: Where: [address] [place] [address]- Medications What How Much When Instructions Unchanged [...] Urnls Dip Stick Auto w/o Microscopy POC 29614 (12/02/2022) Bilirubin Urine Dipstick - Negative Blood Urine Dipstick - Negative Glucose Urine Dipstick - Negative Ketones Urine Dipstick - Negative Leukocytes Urine Dipstick - Negative Nitrite Urine Dipstick - Negative Protein Urine Dipstick - Negative Specific Woodruff Urine Dipstick - >=1.030 Urine Appearance Urine [...] post-void bladder (more content not included)... Normal [facility] Patient Educationon 12-03-19 Patient Education Urology [...] Follow these instructions at home: ? Take uwse-ozs-xbscfuh and prescription medicines only as told by [...] You d (more content not included)... Normal [facility] Urology Office/Clinic Noteon 12-02-2022 Urology Office/Clinic [...] Contact Information HERRERA PRIETO, Vianey Crawford, URL [address] [id number]- Additional Instructions: 6 months w/ testosterone Patient Education Benign Prostatic Hyperplasia I, Mirian Shepard, personally scribed for Dr. Mendoza on 12/02/2022 08:54:27. . Documentation recorded by the scribe, Mirian Shepard, accurately reflects the services(s) I performed and [...] qWeek Allergie (more content not included)... Normal [facility] Comment on above: Result Comment: Elec tronically Signed By: Vianey MENDOZA MD\.br\Date and Time Signed: 12/02/22 09:04 EST\.br\Electronically Co-Signed By: Mirian Shepard.br\Date and Time Co-Signed: 12/02/22 09:01 EST [facility] 11-29-2022 Lab Reports [id number] D:127 Normal [facility] XR TSPINE 3 VIEWSon 11-18-19 XR TSPINE 3 VIEWS EXAMINATION: XR LSPI [...] by: ALFREDITO LOAIZA Date: 2022-11-18 16:11 Normal [facility] TESTOSTERONE, TOTALon 2022 Testosterone [Mass/Vol] 993 ng/dL Critically high 264-916 [facility] Comment on above: Result Comment: Adul t male reference interval is based on a population of healthy nonobese males (BMI <30) between 19 and 39 years old. Brad, et.al. JCEM 2017,102;1873-4591. PMID: [id number]. Performed By: #### T ESTTOT #### [facility] [address] [address] [address] Reuben Morrison Ambulatory Visit Summaryon 0 11-01-2022 Ambulatory Visit Summary VIANEY LACEY :1960 MRN: Visit Date:11/01/2022 Ambulatory Visit Instructions Your Diagnosis Hypogonadism male Your Care Team Attending Physician - KYLE [...] What to do next Scheduled Follow-Up Appointments Monday. 2022 10:00 AM EST With: Taylor Joshua MD Where: [facility] Normal [facility] Ambulatory Visit Summaryon 0 10-05-2022 Ambulatory Visit Summary VIANEY LACEY :1960 MRN: Visit Date:10/05/2022 Ambulatory Visit Instructions Your Care [...] Monday 10:00 AM EST Where: [facility] CBC AUTO DIFFon 06-15-2022 BASO # 0.0 103/ul Normal 0.0-0.1 [facility] Comment on above: Performed By: #### C BC #### [facility] [address] [place] [address] Dr. Reuben Morrison Basophils/100 WBC (Bld) 0.4 % Normal 0.2-2.0 [facility] Comment on above: Performed By: #### C BC #### [facility] [address] [place] [address] Dr. Reuben Morrison EO # 0.1 103/ul Normal 0.0-0.7 [facility] Comment on above: Performed By: #### C BC #### [facility] [address] [place] [address] Dr. Reuben Morrison Eosinophils/100 WBC (Bld) 1.3 % Normal 0.9-7.0 [facility] Comment on above: Performed By: #### C BC #### [facility] [address] [place] [address] Dr. Reuben Morrison Erythrocyte distribution width (RBC) [Ratio] 14.3 % Normal 11.0-15.0 [facility] Comment on above: Performed By: #### C BC #### [facility] [address] [place] [address] Dr. Reuben Morrison Hematocrit (Bld) [Volume fraction] 48.9 % Normal 42.0-54.0 [facility] Comment on above: Performed By: #### C BC #### [facility] [address] [place] [address] Dr. Reuben Morrison Hemoglobin (Bld) [Mass/Vol] 16.6 g/dL Normal 14.0-18.0 [facility] Comment on above: Performed By: #### C BC #### [facility] [address] [place] [address] Dr. Reuben Morrison IG # 0.01 10e3/ul Normal 0.00-0.03 [facility] Comment on above: Performed By: #### C BC #### [facility] [address] [place] [address] Dr. Reuben Morrison IG % 0.2 % Normal 0.0-0.5 [facility] Comment on above: Performed By: #### C BC #### [facility] [address] [place] [address] Dr. Reuben Morrison LYMPH # 1.1 103/ul Critically low 1.2-3.8 [facility] Comment on above: Performed By: #### C BC #### [facility] [address] [place] [address] Dr. Reuben Morrison Lymphocytes/100 WBC (Bld) 24.3 % Normal 20.5-60.0 [facility] Comment on above: Performed By: #### C BC #### [facility] [address] [place] [address] Dr. Reuben Morrison MANUAL DIFF REQ NO Normal [facility] Comment on above: Performed By: #### C BC #### [facility] [address] [place] [address] Dr. Reuben Morrison MCH (RBC) [Entitic mass] 29.5 pg Normal 25.9-34.0 [facility] Comment on above: Performed By: #### C BC #### [facility] [address] [place] [address] Dr. Reuben Morrison MCHC (RBC) [Mass/Vol] 33.9 g/dL Normal 29.9-35.2 [facility] Comment on above: Performed By: #### C BC #### [facility] [address] [place] [address] Dr. Reuben Morrison MCV (RBC) [Entitic vol] 86.9 fL Normal 80.0-94.0 [facility] Comment on above: Performed By: #### C BC #### [facility] [address] [place] [address] Dr. Reuben Morrison MONO # 0.5 103/ul Normal 0.3-0.8 [facility] Comment on above: Performed By: #### C BC #### [facility] [address] [place] [address] Dr. Reuben Morrison Monocytes/100 WBC (Bld) 9.6 % Normal 1.7-12.0 [facility] Comment on above: Performed By: #### C BC #### [facility] [address] [place] [address] Dr. Reuben Morrison NEUT # 3.0 103/ul Normal 1.4-6.5 [facility] Comment on above: Performed By: #### C BC #### [facility] [address] [place] [address] Dr. Reuben Morrison Neutrophils/100 WBC (Bld) 64.2 % Normal 43.0-75.0 [facility] Comment on above: Performed By: #### C BC #### [facility] [address] [place] [address] Dr. Reuben Morrison Platelet mean volume (Bld) [Entitic vol] 9.7 fL Normal 9.5-13.5 [facility] Comment on above: Performed By: #### C BC #### [facility] [address] [place] [address] Dr. Reuben Morrison PLT 130 103/ul Critically low 150-450 [facility] Comment on above: Result Comment: plts . appear slightly decreased Performed By: #### C BC #### [facility] [address] [place] [address] Dr. Reuben Morrison RBC 5.63 106/ul Normal 4.70-6.10 [facility] Comment on above: Performed By: #### C BC #### [facility] [address] [place] [address] Dr. Reuben Morrison WBC 4.7 103/ul Normal 4.0-11.0 [facility] Comment on above: Performed By: #### C BC #### [facility] [address] [place] [address] Dr. Reuben Morrison TESTOSTERONE, TOTALon 2021 Testosterone [Mass/Vol] 404 ng/dL Normal 264-916 [facility] Comment on above: Result Comment: Adul t male reference interval is based on a population of healthy nonobese males (BMI <30) between 19 and 39 years old. stephania Salinas.al. JCEM 2017,102;1806-2751. PMID: 14472438. Performed By: #### T ESTTOT #### [facility] [address] [place] [address] Dr. Reuben Morrison CBC AUTO DIFFon 04-27-2022 BASO # 0.0 103/ul Normal 0.0-0.1 [facility] Comment on above: Performed By: #### T ESTTOT #### [facility] [address] [place] [address] Dr. Reuben Morrison Basophils/100 WBC (Bld) 1.0 % Normal 0.2-2.0 [facility] Comment on above: Performed By: #### T ESTTOT #### [facility] [address] [place] [address] Dr. Reuben Morrison EO # 0.1 103/ul Normal 0.0-0.7 [facility] Comment on above: Performed By: #### T ESTTOT #### [facility] [address] [place] [address] Dr. Reuben Morrison Eosinophils/100 WBC (Bld) 1.8 % Normal 0.9-7.0 [facility] Comment on above: Performed By: #### T ESTTOT #### [facility] [address] [place] [address] Dr. Reuben Morrison Erythrocyte distribution width (RBC) [Ratio] 14.0 % Normal 11.0-15.0 [facility] Comment on above: Performed By: #### T ESTTOT #### [facility] [address] [place] [address] Dr. Reuben Morrison Hematocrit (Bld) [Volume fraction] 47.3 % Normal 42.0-54.0 [facility] Comment on above: Performed By: #### T ESTTOT #### [facility] [address] [place] [address] Dr. Reuben Morrison Hemoglobin (Bld) [Mass/Vol] 16.2 g/dL Normal 14.0-18.0 [facility] Comment on above: Performed By: #### T ESTTOT #### [facility] [address] [place] [address] Dr. Reuben Morrison IG # 0.01 10e3/ul Normal 0.00-0.03 [facility] [facility] Comment on above: Performed By: #### T ESTTOT #### [facility] [address] [place] [address] Dr. Reuben Morrison IG % 0.3 % Normal 0.0-0.5 [facility] Comment on above: Performed By: #### T ESTTOT #### [facility] [address] [place] [address] Dr. Reuben Morrison LYMPH # 1.1 103/ul Critically low 1.2-3.8 [facility] Comment on above: Performed By: #### T ESTTOT #### [facility] [address] [place] [address] Dr. Reuben Morrison Lymphocytes/100 WBC (Bld) 26.6 % Normal 20.5-60.0 [facility] Comment on above: Performed By: #### T ESTTOT #### [facility] [address] [place] [address] Dr. Reuben Morrison MANUAL DIFF REQ NO Normal [facility] Comment on above: Performed By: #### T ESTTOT #### [facility] [address] [place] [address] Dr. Reuben Morrison MCH (RBC) [Entitic mass] 29.5 pg Normal 25.9-34.0 [facility] Comment on above: Performed By: #### T ESTTOT #### [facility] [address] [place] [address] Dr. Reuben Morrison MCHC (RBC) [Mass/Vol] 34.2 g/dL Normal 29.9-35.2 [facility] Comment on above: Performed By: #### T ESTTOT #### [facility] [address] [place] [address] Dr. Reuben Morrison MCV (RBC) [Entitic vol] 86.2 fL Normal 80.0-94.0 [facility] Comment on above: Performed By: #### T ESTTOT #### [facility] [address] [place] [address] Dr. Reuben Morrison MONO # 0.4 103/ul Normal 0.3-0.8 [facility] Comment on above: Performed By: #### T ESTTOT #### [facility] [address] [place] [address] Dr. Reuben Morrison Monocytes/100 WBC (Bld) 9.0 % Normal 1.7-12.0 [facility] Comment on above: Performed By: #### T ESTTOT #### [facility] [address] [place] [address] Dr. Reuben Morrison NEUT # 2.5 103/ul Normal 1.4-6.5 [facility] Comment on above: Performed By: #### T ESTTOT #### [facility] [address] [place] [address] Dr. Reuben Morrison Neutrophils/100 WBC (Bld) 61.3 % Normal 43.0-75.0 [facility] Comment on above: Performed By: #### T ESTTOT #### [facility] [address] [place] [address] Dr. Reuben Morrison Platelet mean volume (Bld) [Entitic vol] 9.6 fL Normal 9.5-13.5 [facility] Comment on above: Performed By: #### T ESTTOT #### [facility] [address] [address] [address] Reuben Morrison PLT 128 103/ul Critically low 150-450 [facility] Comment on above: Performed By: #### T ESTTOT #### [facility] [address] [address] [address] Reuben Morrison RBC 5.49 106/ul Normal 4.70-6.10 [facility] Comment on above: Performed By: #### T ESTTOT #### [facility] [address] [address] [address] Reuben Morrison WBC 4.0 103/ul Normal 4.0-11.0 [facility] Comment on above: Performed By: #### T ESTTOT #### [facility] [address] [place] [address] Dr. Reuben Morrison INSULINon 03-08-2022 Insulin 4.3 uIU/mL Normal 2.6-24.9 [facility] Comment on above: Performed By: #### T ESTTOT #### [facility] [address] [place] [address] Dr. Reuben Morrison TESTOSTERONE, TOTALon 2021 Testosterone [Mass/Vol] ng/dL Critically high 264-916 [facility] Comment on above: Result Comment: Adul t male reference interval is based on a population of healthy nonobese males (BMI <30) between 19 and 39 years old. Brad et.al. JCEM 2017,102;[id number]. PMID: [id number]. Performed By: #### T ESTTOT #### [facility] [address] [place] [address] Dr. Reuben Morrison CBC AUTO DIFFon 03-07-2022 BASO # 0.1 103/ul Normal 0.0-0.1 [facility] Comment on above: Performed By: #### C BC #### [facility] [address] [address] [address] Reuben Morrison Basophils/100 WBC (Bld) 1.4 % Normal 0.2-2.0 [facility] Comment on above: Performed By: #### C BC #### [facility] [address] [place] [address] Dr. Reuben Morrison EO # 0.1 103/ul Normal 0.0-0.7 [facility] Comment on above: Performed By: #### C BC #### [facility] [address] [place] [address] Dr. Reuben Morrison Eosinophils/100 WBC (Bld) 1.4 % Normal 0.9-7.0 [facility] Comment on above: Performed By: #### C BC #### [facility] [address] [place] [address] Dr. Reuben Morrison Erythrocyte distribution width (RBC) [Ratio] 14.7 % Normal 11.0-15.0 [facility] Comment on above: Performed By: #### C BC #### [facility] [address] [place] [address] Dr. Reuben Morrison Hematocrit (Bld) [Volume fraction] 49.8 % Normal 42.0-54.0 [facility] Comment on above: Performed By: #### C BC #### [facility] [address] [place] [address] Dr. Reuben Morrison Hemoglobin (Bld) [Mass/Vol] 16.4 g/dL Normal 14.0-18.0 [facility] Comment on above: Performed By: #### C BC #### [facility] [address] [place] [address] Dr. Reuben Morrison IG # 0.01 10e3/ul Normal 0.00-0.03 [facility] Comment on above: Performed By: #### C BC #### [facility] [address] [place] [address] Dr. Reuben Morrison IG % 0.3 % Normal 0.0-0.5 [facility] Comment on above: Performed By: #### C BC #### [facility] [address] [place] [address] Dr. Reuben Morrison LYMPH # 0.9 103/ul Critically low 1.2-3.8 [facility] Comment on above: Performed By: #### C BC #### [facility] [address] [address] [address] Reuben Morrison Lymphocytes/100 WBC (Bld) 24.7 % Normal 20.5-60.0 [facility] Comment on above: Performed By: #### C BC #### [facility] [address] [address] [address] Reuben Morrison MANUAL DIFF REQ NO Normal [facility] Comment on above: Performed By: #### C BC #### [facility] [address] [place] [address] Dr. Reuben Morrison MCH (RBC) [Entitic mass] 28.9 pg Normal 25.9-34.0 [facility] Comment on above: Performed By: #### C BC #### [facility] [address] [place] [address] Dr. Reuben Morrison MCHC (RBC) [Mass/Vol] 32.9 g/dL Normal 29.9-35.2 [facility] Comment on above: Performed By: #### C BC #### [facility] [address] [place] [address] Dr. Reuben Morrison MCV (RBC) [Entitic vol] 87.7 fL Normal 80.0-94.0 [facility] Comment on above: Performed By: #### C BC #### [facility] [address] [place] [address] Dr. Reuben Morrison MONO # 0.4 103/ul Normal 0.3-0.8 [facility] Comment on above: Performed By: #### C BC #### [facility] [address] [place] [address] Dr. Reuben Morrison Monocytes/100 WBC (Bld) 9.5 % Normal 1.7-12.0 [facility] Comment on above: Performed By: #### C BC #### [facility] [address] [place] [address] Dr. Reuben Morrison NEUT # 2.3 103/ul Normal 1.4-6.5 [facility] Comment on above: Performed By: #### C BC #### [facility] [address] [address] [address] Reuben Morrison Neutrophils/100 WBC (Bld) 62.7 % Normal 43.0-75.0 [facility] Comment on above: Performed By: #### C BC #### [facility] [address] [address] [address] Reuben Morrison Platelet mean volume (Bld) [Entitic vol] 9.8 fL Normal 9.5-13.5 [facility] Comment on above: Performed By: #### C BC #### [facility] [address] [address] [address] Reuben Morrison PLT 149 103/ul Critically low 150-450 [facility] Comment on above: Performed By: #### C BC #### [facility] [address] [address] [address] Reuben Morrison RBC 5.68 106/ul Normal 4.70-6.10 [facility] Comment on above: Performed By: #### C BC #### [facility] [address] [address] [address] Reuben Morrison WBC 3.7 103/ul Critically low 4.0-11.0 [facility] Comment on above: Performed By: #### C BC #### [facility] [address] [address] [address] Reuben Morrison FREE THYROXINE INDEX T7on FTI 2.50 Normal 1.30-4.50 [facility] Comment on above: Performed By: #### C MP, T7, TSH, LIPID #### [facility] [address] [address] [address] Reuben Morrison T3U 39.0 % Normal 33.0-40.0 [facility] Comment on above: Performed By: #### C MP, T7, TSH, LIPID #### [facility] [address] [address] [address] Reuben Morrison T4 [Mass/Vol] 6.40 ug/dL Normal 4.50-12.10 [facility] Comment on above: Performed By: #### C MP, T7, TSH, LIPID #### [facility] [address] [address] [address] Reuben Morrison GLYCOHEMOGLOBIN A1Con 2021 ADA RECOMMENDATION SEE BELOW Normal [facility] Comment on above: Result Comment: ADA RECOMMENDED LIMIT 4.0 - 6.0 ADA THERAPEUTIC TARGET < 7.0 ACTION SUGGESTED > 7.0 Performed By: #### T ESTTOT #### [facility] [address] [address] [address] Reuben Morrison Glucose [Mass/Vol] 105 mg/dL Normal [facility] Comment on above: Performed By: #### T ESTTOT #### [facility] [address] [address] [address] Reuben Morrison HbA1c (Bld) [Mass fraction] 5.3 % Normal 4.5-6.2 [facility] Comment on above: Performed By: #### T ESTTOT #### [facility] [address] [address] [address] Reuben Morrison IRONon 03-07-2022 Iron [Mass/Vol] 100.0 ug/dL Normal 65.0-175.0 [facility] Comment on above: Performed By: #### I BLAIR, PSASC, VITB12, VITAD #### [facility] [address] [place] [address] Dr. Reuben Morrison LIPID PROFILEon 03-07-2022 CHOL-HDL RATIO NORM SEE BELOW Normal [facility] Comment on above: Result Comment: 3.3 - 4.4 LOW RISK 4.4 - 7.1 AVERAGE RISK 7.1 - 11.0 MODERATE RISK >11.0 HIGH RISK Performed By: #### C MP, T7, TSH, LIPID #### [facility] [address] [address] [address] Reuben Morrison Cholesterol [Mass/Vol] 157 mg/dL Normal <=200 [facility] Comment on above: Performed By: #### C MP, T7, TSH, LIPID #### [facility] [address] [address] [address] Reuben Morrison Cholesterol in HDL [Mass/Vol] 48 mg/dL Normal 40-60 [facility] Comment on above: Performed By: #### C MP, T7, TSH, LIPID #### [facility] [address] [address] [address] Reuben Morrison Cholesterol in LDL [Mass/Vol] 96.0 mg/dL Normal [facility] Comment on above: Performed By: #### C MP, T7, TSH, LIPID #### [facility] [address] [address] [address] Reuben Morrison Cholesterol.total/C holesterol in HDL [Mass ratio] 3.3 {ratio} Normal [facility] Comment on above: Performed By: #### C MP, T7, TSH, LIPID #### [facility] [address] [address] [address] Reuben Morrison HDL NORMAL > or = 60 mg/dl - LO W CARDIOVASCULAR RISK <40 mg/dl - HIGH CARDIOVASCULAR RISK Normal [facility] Comment on above: Performed By: #### C MP, T7, TSH, LIPID #### [facility] [address] [address] [address] Reuben Morrison LDL CALC NORMAL SEE BELOW Normal [facility] Comment on above: Result Comment: <100 mg/dl OPTIMAL 100 - 129 mg/dl NEAR OR ABOVE OPTIMAL 130 - 159 mg/dl BORDERLINE HIGH 160 - 189 mg/dl HIGH >190 mg/dl VERY HIGH Performed By: #### C MP, T7, TSH, LIPID #### [facility] [address] [address] [address] Reuben Morrison Triglyceride [Mass/Vol] 65 mg/dL Normal <=150 [facility] Comment on above: Performed By: #### C MP, T7, TSH, LIPID #### [facility] [address] [address] [address] Reuben Morrison VLDL CALC 13.0 mg/dL Normal [facility] Comment on above: Performed By: #### C MP, T7, TSH, LIPID #### [facility] [address] [address] [address] Reuben Morrison PROF 14(COMP METB)on 022 Albumin [Mass/Vol] 3.7 g/dL Normal 3.4-5.0 [facility] Comment on above: Performed By: #### C MP, T7, TSH, LIPID #### [facility] [address] [place] [address] Dr. Reuben Morrison Albumin/Globulin [Mass ratio] 1.3 {ratio} Normal [facility] Comment on above: Performed By: #### C MP, T7, TSH, LIPID #### [facility] [address] [place] [address] Dr. Reuben Morrison ALP [Catalytic activity/Vol] 53 U/L Normal 46-116 [facility] Comment on above: Performed By: #### C MP, T7, TSH, LIPID #### [facility] [address] [place] [address] Dr. Reuben Morrison ALT [Catalytic activity/Vol] 37 U/L Normal 16-63 [facility] Comment on above: Performed By: #### C MP, T7, TSH, LIPID #### [facility] [address] [place] [address] Dr. Reuben Morrison Anion gap [Moles/Vol] 11.0 mmol/L Normal [facility] Comment on above: Performed By: #### C MP, T7, TSH, LIPID #### [facility] [address] [place] [address] Dr. Reuben Morrison AST [Catalytic activity/Vol] 28 U/L Normal 15-37 [facility] Comment on above: Performed By: #### C MP, T7, TSH, LIPID #### [facility] [address] [place] [address] Dr. Reuben Morrison Bilirubin [Mass/Vol] 0.9 mg/dL Normal 0.2-1.0 [facility] Comment on above: Performed By: #### C MP, T7, TSH, LIPID #### [facility] [address] [place] [address] Dr. Reuben Morrison Calcium [Mass/Vol] 8.9 mg/dL Normal 8.5-10.1 [facility] Comment on above: Performed By: #### C MP, T7, TSH, LIPID #### [facility] [address] [address] [address] Reuben Morrison Chloride [Moles/Vol] 106 mmol/L Normal 98-107 [facility] Comment on above: Performed By: #### C MP, T7, TSH, LIPID #### [facility] [address] [address] [address] Reuben Morrison CO2 [Moles/Vol] 28.2 mmol/L Normal 21.0-32.0 [facility] Comment on above: Performed By: #### C MP, T7, TSH, LIPID #### [facility] [address] [address] [address] Reuben Morrison Creatinine [Mass/Vol] 1.55 mg/dL Critically high 0.70-1.30 [facility] Comment on above: Performed By: #### C MP, T7, TSH, LIPID #### [facility] [address] [place] [address] Dr. Reuben Morrison EGFR-AF UKRAINIAN 55 mL/min/1.73m2 Critically low >=60 [facility] Comment on above: Performed By: #### C MP, T7, TSH, LIPID #### [facility] [address] [address] [address] Reuben Morrison EGFR-NON AF UKRAINIAN 46 mL/min/1.73m2 Critically low >=60 [facility] Comment on above: Performed By: #### C MP, T7, TSH, LIPID #### [facility] [address] [address] [address] Reuben Morrison Globulin (S) [Mass/Vol] 2.9 g/dL Normal [facility] Comment on above: Performed By: #### C MP, T7, TSH, LIPID #### [facility] [address] [address] [address] Reuben Morrison Glucose [Mass/Vol] 88 mg/dL Normal 74-106 [facility] Comment on above: Performed By: #### C MP, T7, TSH, LIPID #### [facility] [address] [address] [address] Reuben Morrison Potassium [Moles/Vol] 4.2 mmol/L Normal 3.5-5.1 [facility] Comment on above: Performed By: #### C MP, T7, TSH, LIPID #### [facility] [address] [place] [address] Dr. Reuben Morrison Protein [Mass/Vol] 6.6 g/dL Normal 6.4-8.2 [facility] Comment on above: Performed By: #### C MP, T7, TSH, LIPID #### [facility] [address] [place] [address] Dr. Reuben Morrison Sodium [Moles/Vol] 141 mmol/L Normal 136-145 [facility] Comment on above: Performed By: #### C MP, T7, TSH, LIPID #### [facility] [address] [place] [address] Dr. Reuben Morrison Urea nitrogen [Mass/Vol] 13.0 mg/dL Normal 7.0-18.0 [facility] Comment on above: Performed By: #### C MP, T7, TSH, LIPID #### [facility] [address] [place] [address] Dr. Reuben Morrison Urea nitrogen/Creatinine [Mass ratio] 8.4 mg/mg Normal [facility] Comment on above: Performed By: #### C MP, T7, TSH, LIPID #### [facility] [address] [place] [address] Dr. Reuben Morrison TSHon 03-07-2022 TSH 0.091 uIU/mL Critically low 0.358-3.740 [facility] Comment on above: Performed By: #### C MP, T7, TSH, LIPID #### [facility] [address] [place] [address] Dr. Reuben Morrison TSH RANGE SEE BELOW Normal [facility] Comment on above: Result Comment: <0.3 4 UIU/ml HYPERTHYROID 0.34-5.60 UIU/ml EUTHYROID >5.60 UIU/ml HYPOTHYROID Performed By: #### C MP, T7, TSH, LIPID #### [facility] [address] [place] [address] Dr. Reuben Morrison VITAMIN B12on 03-07-2022 Cobalamin (Vitamin B12) [Mass/Vol] 3126.0 pg/mL Critically high 193.0-986.0 [facility] Comment on above: Performed By: #### T ESTTOT #### [facility] [address] [address] [address] Reuben Morrison VITAMIN D 25 OHon 03-07-2022 VIT D 25-OH 90.4 ng/mL Normal [facility] Comment on above: Performed By: #### T ESTTOT #### [facility] [address] [address] [address] Reuben Morrison VIT D RANGES SEE BELOW Normal [facility] Comment on above: Result Comment: <20 ng/mL Vit D deficient 20 - <30 ng/mL Vit D insufficient 30 - 100 ng/mL Vit D sufficient >100 ng/mL Potential Toxicity Performed By: #### T ESTTOT #### [facility] [address] [address] [address] Reuben Morrison XR SHOULDER RICHARD 2V [...] by: ERIN HANSEN Date: 2022-03-07 16:26 Normal [facility] Vital Signs Date Time Vital Sign Value Performing Clinician Facility 07-27-2023 10:00-0400 Body height 168.91 cm [facility]oval Anton[facility] Other [facility] 07-27-2023 10:00-0400 Body mass index (BMI) [Ratio] 28.55 kg/m2 [facility] Atnonia Other [facility] 07-27-2023 10:00-0400 Body temperature 96.2 [degF] [facility] Other [facility] 07-27-2023 10:00-0400 Body weight 81.47 kg Sandoval Antonia Other [facility] 07-27-2023 10:00-0400 Diastolic blood pressure 87 mm[Hg] [facility] Anton[facility] Other [facility] 07-27-2023 10:00-0400 Respiratory rate 16 /min [facility]oval Anton[facility] Other [facility] 07-27-2023 10:00-0400 SaO2% (BldA) [Mass fraction] 94 % [facility] Anton[facility] Other [facility] 07-27-2023 10:00-0400 Systolic blood pressure 130 mm[Hg] [facility] Other [facility] 06-12-2023 12:25-0400 Blood Pressure Location Vianey MENDOZA [facility] 06-12-2023 12:25-0400 Diastolic blood pressure 74 mm[Hg] Vianey MENDOZA [facility] 06-12-2023 12:25-0400 Heart rate 68 /min Vianey MENDOZA [facility] 06-12-2023 12:25-0400 Respiratory rate 16 /min Vianey MENDOZA [facility] 06-12-2023 12:25-0400 Systolic blood pressure 128 mm[Hg] Vianey MENDOZA [facility] 04-26-2023 11:15-0400 Body height 168.4 cm Shawanda Hernandez PA-C Work Phone: [facility] 04-26-2023 11:15-0400 Body temperature 98.01 [degF] Shawanda Hernandez PA-C Work Phone: [facility] 04-26-2023 11:15-0400 Body weight 86.95 kg Shawanda Hernandez PA-C Work Phone: [facility] 04-26-2023 11:15-0400 Diastolic blood pressure 94 mm[Hg] Shawanda Hernandez PA-C Work Phone: [facility] 04-26-2023 11:15-0400 Heart rate 74 /min Shawanda Hernandez PA-C Work Phone: [facility] 04-26-2023 11:15-0400 SaO2% (BldA) [Mass fraction] 97 % Shawanda Hernandez PA-C Work Phone: [facility] 04-26-2023 11:15-0400 Systolic blood pressure 147 mm[Hg] Shawanda Hernandez PA-C Work Phone: [facility] 12-02-2022 08:12-0500 Blood Pressure Location Vianey MENDOZA [facility] 12-02-2022 08:12-0500 Diastolic blood pressure 84 mm[Hg] Vianey MENDOZA [facility] 12-02-2022 08:12-0500 Heart rate 70 /min Vianey MENDOZA [facility] 12-02-2022 08:12-0500 Respiratory rate 16 /min Vianey MENDOZA [facility] 12-02-2022 08:12-0500 Systolic blood pressure 137 mm[Hg] Vianey MENDOZA [facility] 07-20-2022 14:11-0400 Body mass index (BMI) [Ratio] 28.98 kg/m2 Jovita Virk MD Work Phone: [employer] 07-20-2022 14:11-0400 Body temperature 98.01 [degF] Jovita Virk MD Work Phone: [email or web address] 07-20-2022 14:11-0400 Body weight 83.92 kg Jovita Virk MD Work Phone: [employer] 07-20-2022 14:11-0400 Diastolic blood pressure 86 mm[Hg] Jovita Virk MD Work Phone: [employer] 07-20-2022 14:11-0400 Heart rate 98 /min Jovita Virk MD Work Phone: [employer] 07-20-2022 14:11-0400 Respiratory rate 14 /min Jovita Virk MD Work Phone: [employer] 07-20-2022 14:11-0400 SaO2% (BldA) [Mass fraction] 100 % Jovita Virk MD Work Phone: [employer] 07-20-2022 14:11-0400 Systolic blood pressure 138 mm[Hg] Jovita Virk MD Work Phone: [employer] Encounters Encounter Date Encounter Type Care Provider Facility Start: 11-27-2023 ambulatory Vianey Lewisi ty:REHANA Elliottue Start: 10-16-2023 ambulatory Vianey Lewisi ty:REHANA Gilma Start: 09-08-2023 End: [facility]: [facility]-10-[facility] End: 08-10[facility] [facility] Start: 07-27-2023 End: 07-27-2023 ambulatory Sandoval Knight Other [facility] [employer] Other Start: 07-27-2023 Office outpatient ne w 45 minutes Sandoval Knight [facility] Start: 07-11-2023 ambulatory [facility] Start: 07-11-2023 End: 07-11-2023 ambulatory [facility] Start: 07-10-2023 ambulatory Vianey MENDOZA Facili ty:[facility] Start: 06-28-2023 End: 06-28-2023 ambulatory [facility] Start: 06-12-2023 End: 06-13-2023 ambulatory Vianey MENDOZA Facility:[facility] Start: 06-12-2023 End: 06-12-2023 Patient encounter procedure Vianey MENDOZA [facility] Start: 05-30-2023 ambulatory Taylor Joshua Facility:[facility] Start: 05-03-2023 End: 05-04-2023 ambulatory Taylor Joshua Facility:[facility] Start: 05-03-2023 End: 05-03-2023 Patient encounter procedure Taylor Joshua [facility] Start: 04-26-2023 End: 04-26-2023 ambulatory ILDA HENDRICKSON Facility:[facility] Start: 04-26-2023 End: 04-26-2023 Patient encounter procedure Shawanda Hernandez PA-C Work Phone: Spine Medicine Comment on above: Height loss (Primary Dx) Start: 04-05-2023 End: 04-06-2023 ambulatory Taylor MMark Joshua Facility:[facility] Start: 03-08-2023 End: 03-09-2023 ambulatory KYLE RODRIGUEZ Facility:[facility] Start: 03-08-2023 End: 03-08-2023 Patient encounter procedure KYLE RODRIGUEZ [facility] Start: 02-07-2023 End: 02-08-2023 ambulatory Vianey Ty HERRERA Facility:[facility] Start: 01-20-2023 End: 01-21-[address] ILDA HENDRICKSON . Facility: Start: 12-02-2022 End: 12-03-2022 ambulatory Vianey Ty HERRERA Facility:[facility] Start: 12-02-2022 End: 12-02-2022 Patient encounter procedure Vianey R HERRERA [facility] Start: 11-18-2022 End: 11-19-[address] ILDA HENDRICKSON . Facility: Start: 11-08-2022 End: 11-09-2022 ambulatory TAYLOR JOSHUA . Facility: Start: 11-01-2022 End: 11-02-2022 ambulatory KYLE RODRIGUEZ Facility:[facility] Start: 11-01-2022 End: 11-01-2022 Patient encounter procedure KYLE FIELDSRY [facility] [place] Start: 10-05-2022 End: 10-06-2022 ambulatory KYLE RODRIGUEZ Facility:[facility] Start: 10-05-2022 End: 10-05-2022 Patient encounter procedure KYLE RODRIGUEZ [facility] [place] Start: 09-07-2022 End: 09-08-2022 ambulatory [facility] Start: 09-07-2022 End: 09-07-2022 Patient encounter procedure Taylor Joshua [facility] Start: 08-28-2022 Letter encounter [facility] Start: 08-17-2022 End: 08-18-2022 ambulatory Taylor PompaMark Tres Facility:[facility] Start: 08-17-2022 End: 08-17-2022 Patient encounter procedure Taylorwellington Garzasenia [facility] Start: 08-12-2022 Telephone encounter Aarti vences MA, CCC, TRAVEL WRITER Work Phone: [facility] Start: 07-21-2022 End: 07-22-[address] ILDA HENDRICKSON . Facility: Start: 07-20-2022 End: 07-20-2022 Office outpatient visit 25 minutes Jovita Virk MD Work Phone: 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 [place] [facility] Comment on above: Refill Start: 03-21-[address] ILDA HENDRICKSON . Facili ty:[facility] Start: 03-17-[address] ILDA HENDRICKSON . Facili ty:[facility] Start: 03-09-2022 Encounter for genera l adult medical examination without abnormal findings DR ILDA HENDRICKSON . [facility] Start: 03-07-2022 End: 03-08-2022 Encounter for general adult medical examination without abnormal findings DR ILDA HENDRICKSON . Facility:[facility] Start: 03-07-2022 End: 03-08-[address] ILDA HENDRICKSON . Facility:[facility] Start: 03-01-2022 End: 03-01-2022 Patient encounter procedure Saeed Landa Pepe Brunson [facility] Start: 02-01-2022 End: 02-01-2022 Patient encounter procedure Saeed Landa Pepe Brunson [facility] Start: 01-04-2022 End: 01-04-2022 Patient encounter procedure Saeed Landa Pepe Brunson [facility] Procedures Date Procedure Procedure Detail Performing Clinician Start: 09-08-2023 Follow-up visit Follow-up BAKARI SANTOYO Start: 06-15-[address] FABIÁN HENDRICKSON . Comment on above: Performed By: #### T ESTTOT #### [facility] [address] [place] [address] Dr. Reuben Morrison Start: 03-07-[address] FABIÁN HENDRICKSON . Comment on above: Performed By: #### I BLAIR, PSASC, VITB12, VITAD #### [facility] [address] [place] [address] Dr. Reuben Morrison Start: 12-21-2016 Cystourethroscopy wi th dilation of urethral stricture Saeed Cantu Jr. Arthroplasty of knee Saeed Cantu Jr. Comment on above: Left side Hernia repair Saeed vasquez Repair of musculoten dinous cuff of shoulder Saeed Cantu Jr. Plan of Treatment Date Care Activity Detail Author Start: 09-04-2031 Urine microalbumin profile DTAP,TDAP,TD (2 - Tdap) [facility] Start: 06-15-2027 PROSTATE CANCER SCREENING DISCUSSION PROSTATE CANCER SCREENING DISCUSSION [facility] Start: 05-26-2023 Influenza vaccination INFLUENZA (#1) [facility] Start: 09-25-2022 DEPRESSION ASSESSMENT DEPRESSION ASSESSMENT [facility] Start: 09-20-2022 COVID-19 Vaccine (5 - Booster for Pfizer series) COVID-19 Vaccine (5 - Booster for Pfizer series) [facility] Start: 09-20-2022 COVID-19 VACCINE (5 - Pfizer series) COVID-19 VACCINE (5 - Pfizer series) [facility] Start: 07-19-2022 End: 07-19-2022 Patient encounter procedure 07/19/2022 Office Visit Physical Medicine & Rehab/[facility] Jovita Virk MD [address] [place] [phone] [facility] [place] [facility] Start: 06-25-2022 Influenza vaccination Influenza Vaccine (#1) [facility] Start: 05-31-2022 Shingles (RZV) Vaccine (2 of 2) Shingles (RZV) Vaccine (2 of 2) [facility] Start: 01-19-2022 COVID-19 Vaccine (4 - Booster for Pfizer series) COVID-19 Vaccine (4 - Booster for Pfizer series) [facility] Start: 11-15-2021 COVID-19 Vaccine (4 - Booster for Pfizer series) COVID-19 Vaccine (4 - Booster for Pfizer series) [facility] Start: 09-05-2021 Lipid panel Cholesterol [facility] Start: 12-04-2020 DIABETES SCREEN DIABETES SCREEN [facility] Start: 11-23-2014 Annual wellness visit Annual Wellness Visit (G0438) [facility] Start: 06-10-2012 Thyroid stimulating hormone measurement [facility]SH [facility] Start: 2009 Measurement of occult blood in single stool specimen FIT [facility] Start: 2009 Screening for malignant neoplasm of colon CRC Screening [facility] Start: 2009 Shingles (RZV) Vaccine (1 of 2) Shingles (RZV) Vaccine (1 of 2) [facility] Start: 02-22-2004 COLOGUARD (FIT-DNA) COLOGUARD (FIT-DNA) [facility] Start: 02-22-2004 Colonoscopy COLONOSCOPY [facility] Start: 02-22-2004 COLORECTAL CANCER SCREENING COLORECTAL CANCER SCREENING [facility] Start: 02-22-[address] COLONOGRAPHY [facility] Start: 02-22-2004 FECAL OCCULT BLOOD FECAL OCCULT BLOOD [facility] Start: 02-22-2004 SIGMOIDOSCOPY SIGMOIDOSCOPY [facility] Start: 1994 LIPID SCREEN LIPID SCREEN [facility] Start: 1977 ANNUAL PCP TEAM CHRONIC DISEASE VISIT ANNUAL PCP TEAM CHRONIC DISEASE VISIT [facility] Start: 1977 Hepatitis C screening Hepatitis C Antibody [facility] Start: 1977 HEPATITIS C SCREENING HEPATITIS C SCREENING [facility] Start: 1977 HIV SCREENING HIV SCREENING [facility] Start: 1977 SPIROMETRY SPIROMETRY [facility] Start: 1977 Tetanus + diphtheria + acellular pertussis vaccine (product) Tdap Booster [facility] Start: 1974 HIV screening HIV Test [facility] Start: 1965 PNEUMOCOCCAL (1 - PCV) PNEUMOCOCCAL (1 - PCV) [facility] Start: 1959 Screening for malignant neoplasm of colon Colonoscopy [facility] Immunizations Immunization Date Immunization Notes Care Provider Fa cili 08-29-2022 zoster vaccine recombinant Shawanda Hernandez PA-C Work Phone: [facility] 07-25-2022 Influenza, injectabl e, Madin [place] Canine Kidney, preservative free, quadrivalent Jovita Virk MD Work Phone: [facility] 04-05-2022 zoster vaccine recombinant Jovita Virk MD Work Phone: [facility] 09-04-2021 diphtheria, tetanus toxoids and pertussis vaccine Jovita Virk MD Work Phone: [facility] 08-25-2021 SARS-CoV-2 (COVID-19 ) Ad26 vaccine, recombinant Saeed Cantu Jr. [facility] 08-10-2021 influenza, injectabl e, quadrivalent, preservative free Jovita Virk MD Work Phone: [facility] 08-10-2021 influenza virus vaccine, unspecified formulation Jovita Virk MD Work Phone: [facility] 06-25-2021 influenza virus vaccine, unspecified formulation Saeed Cantu Jr. [facility] 12-22-2020 Pfizer (12+ yrs) SARS-COV-2 (COVID-19) vaccine, mRNA, spike protein, LNP, pres. free, 30 mcg/0.3mL dose (RWC=917) Jovita Virk MD Work Phone: [facility] 11-30-2020 Pfizer (12+ yrs) SARS-COV-2 (COVID-19) vaccine, mRNA, spike protein, LNP, pres. free, 30 mcg/0.3mL dose (ILG=329) Jovita Virk MD Work Phone: [facility] 08-25-2020 influenza virus vaccine, unspecified formulation Saeed Cantu Jr. [facility] 06-30-2020 influenza, injectabl e, quadrivalent, preservative free Jovita Virk MD Work Phone: [facility] 12-25-2019 SARS-CoV-2 (COVID-19 ) mRNA BNT-162b2 vax Saeed Cantu Jr. [facility] 11-24-2019 SARS-CoV-2 (COVID-19 ) mRNA BNT-162b2 vax Saeed Cantu Jr. [facility] Payers Date Payer Category Payer Unknown [id number] 2022 Unknown [id number] 2017 Unknown [id number] 2017 Unknown [id number] 2013 Medicare [id number] 1959 Medicare [id number] 1959 Self-pay [id number] 1959 Unknown [id number] 2.16.84 0.1.477666.3.579.2.593 1959 Unknown [id number] 2.16.84 0.1.588515.3.579.2.593 1959 Unknown [id number] 2.16.84 0.1.520716.3.579.2.593 1959 Unknown [id number] 2.16.84 0.1.625043.3.579.2.593 1959 Unknown [id number] 2.16.84 0.1.002098.3.579.2.593 1959 Unknown [id number] 2.16.84 0.1.227822.3.579.2.593 1959 Unknown [id number] 2.16.84 0.1.841939.3.579.2.593 1959 Unknown [id number] 2.16.84 0.1.970670.3.579.2.593 1959 Unknown [id number] 2.16.84 0.1.008637.3.579.2.593 1959 Unknown [id number] 2.16.84 0.1.471017.3.579.2.593 1959 Unknown [id number] 2.16.84 0.1.511809.3.579.2.593 1959 Unknown [id number] 2.16.8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
--- NOTE | 2023-10-16 15:48 | CA_ITS ---
Patient Name: VIANEY AARON MR#: [id number] : 1960 Exam Date: 10/16/2023 Ordering Doctor: BAKARI SCOTT ECHOCARDIOGRAM REPORT PROCEDURE: CA ECHO DOPPLER COMPLETE INDICATIONS: Paroxysmal atrial fibrillation COMPARISON: None. DESCRIPTION: COMPLETE ECHOCARDIOGRAM Real-time transthoracic echocardiography with 2D, M-mode, spectral and color flow Doppler performed. QUALITY: Technical quality was good. LEFT VENTRICLE: Normal chamber size. Normal left ventricular wall thickness. LV EF: Global left ventricular systolic function is normal. Visual estimation of left ventricular ejection fraction is 55-60%. No wall motion abnormalities. DIASTOLIC: Not adequately assessed due to heart rhythm. ATRIAL SEPTUM: Inadequately seen. LEFT ATRIUM: Moderate dilatation. RIGHT ATRIUM: Moderate dilatation. RIGHT VENTRICLE: Mild dilatation. Normal right ventricular systolic function. TRICUSPID VALVE: Normal mobility and thickness. Moderate regurgitation. No evidence of pulmonary hypertension. RVSP 31mmHg MITRAL VALVE: No evidence of mitral valve stenosis. There is no mitral annular calcification. Moderate mitral regurgitation. AORTIC VALVE: Normal trileaflet appearance. No visible sclerosis. Normal leaflet mobility. No evidence of aortic valve stenosis. No aortic regurgitation. AORTIC ROOT: Normal diameter and appearance. PULMONIC VALVE: Normal thickness and mobility. No stenosis. Trivial regurgitation. PERICARDIUM: No evidence of pericardial effusion. IVC: Collapses with inspirations. Normal size. CONCLUSION: 1. Global left ventricular systolic function is normal; visually estimated ejection fraction is 55 to 60% 2. The right ventricle is mildly dilated with normal systolic function 3. Biatrial enlargement 4. Moderate tricuspid regurgitation 5. Moderate mitral regurgitation Adult Echocardiography Procedure Report Left Ventricle LVEDD (3.7 - 5.6 cm): 4.81 cm LVESD (2.2 - 4.0 cm): 3.19 cm LVIVS thickness (0.6 - 1.2 cm): 0.91 cm LVPW thickness (0.5 - 1.0 cm): 1.03 cm e': 0.12 m/s E - e': 4.86 LVOT Max Gradient: 1.55 mm[Hg] LVOT Area (cm2): 0.62 m/s Peak Velocity (LVOT): 0.62 m/s Mean Velocity (LVOT): 0.48 m/s LVOT Diameter 2.13 cm Left Ventricular Ejection Fraction: 56.65 % Left Atrium LA Volume Index (2D A2C): 46.99 ml/m2 Left Atrium Systolic Dimension: 4.72 cm Mitral Valve MV E to A Ratio: 8.32 Mitral Valve A-Wave Peak Velocity: 0.07 m/s Mitral Valve E-Wave Peak Velocity: 0.60 m/s Right Ventricle RV Internal Diastolic Dimension: 4.42 cm Aorta AO Root Diam: 3.26 cm Ascending Ao Diam: 2.97 cm Aortic Valve AoV Area (Peak Tahir): 2.25 cm2, 2.25 cm2 AoV Area (VTI): 2.38 cm2, 2.38 cm2 Peak Velocity(Antegrade Flow): 0.98 m/s Peak Gradient(Antegrade Flow): 3.87 mm[Hg] Mean Velocity(Antegrade Flow): 0.67 m/s Mean Gradient(Antegrade Flow): 2.06 mm[Hg] Velocity Time Integral: 17.22 cm Tricuspid Valve Peak Velocity (Regurgitant Flow): 2.67 m/s, 2.66 m/s, 2.55 m/s Pulmonic Valve Mean Gradient: 2.41 mm[Hg] Mean Velocity: 0.74 m/s Peak Velocity: 1.05 m/s, 0.75 m/s Peak Gradient: 2.26 mm[Hg], 4.39 mm[Hg] Right Atrium Right Atrium Systolic Pressure: 73.08 ml, 73.08 ml Dictated by: George Loza M.D. on 10/17/2023 at 10:23 Approved by: George Loza M.D. on 10/17/2023 at 10:27
== END 2023-10-16 15:05 | disposition home or self-care (01) ==
LOC: CARD 15:04
PROVIDERS: PCP Family Medicine; Visit Provider Internal Medicine Cardiovascular Disease
DX: I48.0 Paroxysmal atrial fibrillation (principal)
CPT/HCPCS: 93306

== ENCOUNTER 2023-10-24 12:25 | Outpatient (OUT) | payer BC, MEDICARE, SELFPAY ==
--- OUTSIDE RECORDS SUMMARY | 2023-10-24 12:29 | XMS_ITS | CCD ---
Author Name Unknown Address [address] [facility] [facility] [address] [place] [address] Organization [facility] Care Team Providers Care Business Intelligence Manager Name Role Phone Ilda Hendrickson Primary Care Physician Moose PRIETO, Jovita Unavailable Jovita Virk MD Unavailable CISCO ., DR GONSALES Primary Care Unavailable HOY ., DR GONSALES Attending Unavailable HOY ., DR GONSALES Admitting Unavailable HOY ., DR GONSALES Consulting Unavailable FADIA, DR ALFREDITO Crawford Consulting Unavailable LUE .TAYLOR Admitting Unavailable LUE .TAYLOR Attending Unavailable HOY ., DR GONSALES Consulting Unavailable HOY ., DR GONSALES Primary Care Unavailable ARAM Flores, DR SAEED Landa Admitting Unavaila fredrick Flores, DR SAEED Landa Attending Unavaila fredrick Flores, DR SAEED Landa Consulting Unavaila ble HOY [...] Flores, DR SAEED Landa Attending Unavaila fredrick Flores, DR SAEED Landa Consulting Unavaila ble HODarwin ., DR GONSALES Primary Care Unavailable HOY ., DR GONSALES Admitting Unavailable HOY ., DR GONSALES Attending Unavailable HOY ., DR GONSALES Consulting Unavailable HOY ., DR GONSALES Primary Care Unavailable ERIN HANSEN Consulting Unavailable MENDOZA ., DR WINTERS Admitting Unavailable [...] Unavailable Ilda Hendrickson MD Primary Care Provider [phone] ILDA HENDRICKSON Primary Care Unavailable SHAWANDA HERNANDEZ Attending Unavailable Antonia Sandoval Unavailable Vianey MENDOZA Attending Unavailable KYLE RODRIGUEZ Attending Unavailable Lue, Taylor Hatfield Attending Unavailable Lue, Taylor Hatfield Attending Unavailable Lue, Taylor Hatfield Attending Unavailable MENDOZA, Vianey R Attending Unavailable MENDOZA, Vianey R Attending Unavailable MENDOZA, Vianey R Attending Unavailable MENDOZA, Vianey R Attending Unavailable Lue, Taylor MMark Attending Unavailable JENNIFER, KYLE Marin Attending Unavailable JENNIFER, KYLE Marin Attending Unavailable MENDOZA, Vianey R Attending Unavailable Lue, Taylor MMark Attending Unavailable ELTAHAWY, EHAB Referring Unavailable TYLERBAKARI Doshi Attending Unavailable ELTAHAWY, EHAB Attending Unavailable ELTAHAWY, EHAB Admitting Unavailable ELTAHAWY, EHAB Attending Unavailable ELTAHAWY, EHAB Referring Unavailable ELTAHAWY, EHAB Referring Unavailable ELTAHAWY, EHAB Attending Unavailable ELTAHAWY, EHAB Referring Unavailable Allergies Allergy Classification Reported Allergen(s) Allergy Type Date of Onset Reaction(s) Facility (1 source) Ciprofloxacin Drug Allergy Unknown Telesocial Other (1 source) No Known Medication Allergies; Translations: [No Known Medication Allergies] Propensity to adverse reactions (disorder) [facility] Repository Medications Current Medications Medication Drug Class(es) [...] by mouth. apixaban 5 mg oral tablet (2 sources) Factor Xa Inhibitor Start: 10-16-2023 Eliquis 5 mg oral tablet Refills(s) 0 Start Date: 10/16/23 Status: Ordered take 1 tablet by mouth every twe lve hours Eliquis 5 MG 1 tablet Orally Twice a day Active Ascorbic Acid (20 sources) Vitamin C Start: 05-07-2019 Vitamin C Yrn y, Refills(s) 0 Start Date: 05/07/19 Status: Ordered [...] Take 1,000 mg by darren th. carvedilol 6.25 mg oral tablet (2 sources) alpha-Adrenergic Joan, beta-Adrenergic Joan Start: 10-16-2023 carvedilol 6.25 mg Tab Refills(s) 0 Start Date: 10/16/23 Status: Ordered take 1 tablet by mouth every twe lve hours Coreg 25 MG 1 tablet with food Orally Twice a day Active Depo-Testosterone 200 mg/mL intramuscular solution (3 sources) Start: 01-04-2022 Depo-Testoster one 200 mg/mL intramuscular solution 300 mg, IntraMuscular, q4wk, # 10 mL, Refills(s) 1, Pharmacy: [facility]/pharmacy #[id number], 167, cm, 10/05/21 11:32:00 EST, Height/Length Dosing, 83, kg, 10/05/21 11:32:00 EST, Weight Dosing Start Date: 01/04/22 Status: Ordered dexpanthenol 2 mg/ml / niacinamide 100 mg/ml / riboflavin 2 mg/ml / thiamine 100 mg/ml / vitamin b6 2 mg/ml injectable solution (12 sources) Start: 05-07-2019 Vitamin B Comp yuridia injectable solution Refill(s) 0 Start Date: 05/07/19 Status: Ordered Comment on above: Refill(s) 0 docosahexaenoic acid 120 mg / eicosapentaenoic acid 180 mg oral capsule (4 sources) take 1 capsule by mouth once daily [place]-3 Fatty Acids (FISH OIL) 1000 MG CAPS Take 1 Capsule by mouth daily. 0 Active Fish Oils (9 sources) Start: 05-07-2019 Fish Oil Oral, Refill(s) 0 Start Date: 05/07/19 Status: Ordered levothyroxine sodium 0.15 mg oral tablet (20 sources) l-Thyrox ine Start: 05-07-2019 take 1 tablet by mouth [...] daily. liothyronine sodium 0.025 mg oral tablet (20 sources) l-Triiodothyroni ne Start: 05-07-2019 take 1 tablet by mouth once daily liothyronine 25 mcg Tab microgram tab(s), Oral, Daily, Refills(s) 0 Start Date: 05/07/19 Status: Ordered Start: 02-08-2017 take [address] [facility] once daily liothyronine (CYTOMEL) 25 MCG tablet Take 1 Tablet by mouth daily. 30 Tablet 3 02/08/2017 Active Comment on above: Take 25 mcg by mouth once daily. memantine hydrochloride 5 mg oral tablet (4 sources) T-whsnky-E-aspartat e Receptor Antagonist Start: 2 End: 2 take 1 tablet by mouth once daily memantine (NAMENDA) 5 MG tablet Take 1 Tablet by mouth daily. 30 Tablet 3 07/20/2022 Active tamsulosin hydrochloride 0.4 mg oral capsule (20 sources) alpha-Adrenergic Joan Start: 3 take 1 capsule by mouth once daily tamsulosin 0.4 mg Cap 0.4 mg = 1 cap(s), Oral, Daily, # 90 cap(s), Refills(s) 3, Pharmacy: [facility]/pharmacy #[id number], 170, cm, 06/12/23 12:26:00 EDT, Height/Length Dosing, 86.5, kg, 06/12/23 12:26:00 EDT, Weight Dosing Start Date: 07/07/23 Status: Ordered Start: 11-24-2021 End: 11-19-2022 take 1 capsule by mouth twice daily Flomax 0.4 mg Cap 0.4 mg = 1 cap(s), Oral, BID, X 90 day(s), # 180 cap(s), Refills(s) 3, Pharmacy: [facility]/pharmacy #[id number], 167, cm, 10/05/21 11:32:00 EST, Height/Length Dosing, 83, kg, 10/05/21 11:32:00 EST, Weight Dosing Start Date: 11/24/21 Stop Date: 11/19/22 Status: Ordered Start: 02-08-2017 take 1 capsule by [facility] once daily tamsulosin 0.4 mg Cap 0.4 mg = 1 cap(s), Oral, Daily, # 30 cap(s), Refills(s) 11, Pharmacy: [facility]/pharmacy #[id number], 170, cm, 06/12/23 12:26:00 EDT, Height/Length Dosing, 86.5, kg, 06/12/23 12:26:00 EDT, Weight Dosing Start Date: 06/12/23 Status: Ordered Comment on above: 0.4 mg once daily. testosterone cypionate 200 mg/ml injectable solution (16 sources) Androgen Start: 05-03-2023 Depo-Testosterone 200 mg/mL intramuscular solution 300 mg, IntraMuscular, q4wk, # 10 mL, Refills(s) 1, Pharmacy: [facility]/pharmacy #[id number], 170, cm, 12/02/22 8:17:00 EST, Height/Length Dosing, 83.2, kg, 12/02/22 8:17:00 EST, Weight Dosing Start Date: 05/03/23 Status: Ordered Start: 09-07-2022 Depo-Testoster one 200 mg/mL intramuscular solution 300 mg, IntraMuscular, q4wk, # 10 mL, Refills(s) 1, Pharmacy: [facility]/pharmacy #[id number], 167, cm, 10/05/21 11:32:00 EST, Height/Length Dosing, 83, kg, 05/10/22 10:08:00 EDT, Weight Dosing Start Date: 09/07/22 Status: Ordered Start: 01-04-2022 Depo-Testoster one 200 mg/mL intramuscular solution 300 mg, IntraMuscular, q4wk, # 10 mL, Refills(s) 1, Pharmacy: [facility]/pharmacy #[id number], 167, cm, 10/05/21 11:32:00 EST, [...] Start Date: 05/07/19 Status: Ordered Vitamin D (14 sources) Start: 08-31-2021 Vitamin D International_Unit, Oral, [...] take 1 capsule by mouth once daily Sonoita Aspartate 20 mg cap Take 1 capsule by mouth once daily. 0 Active take 1 capsule by mouth once darius ly Nutritional Supplements (CREATINE) 750 MG CAPS Take 1 Capsule by mouth daily. 0 Active Comment on above: Take 1 capsule by mo ut once daily. omega-3 fatty acids (FISH OIL [...] 3 Chronic Genitourinary symptoms and ill-defined conditions (2 sources) Urge incontinence; Translations: [Urge incontinence of urine] Onset: 4 Chronic Genitourinary symptoms and ill-defined conditions (20 [...] kidney, acquired Episodi c Other endocrine disorders (11 sources) Testicular hypofunction; Translations: [Testicular hypofunction] Onset: 2 Chronic Other endocrine disorders (14 sources) Male hypogonadism 03-14-2019 Chronic Other endocrine disorders (5 sources) Testicular hypofunction; Translations: [TESTICULAR HYPOFUNCTION] Onset: 2 Chronic Other endocrine disorders (4 sources) Testicular hyperfunction; Translations: [TESTICULAR HYPERFUNCTION] Onset: 3 Chronic Other injuries and conditions due to external causes (14 sources) H/O: head injury 03-14-2019 Episodic Other male genital disorders (14 sources) 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 Provider Department Center 10/13/2023 None-None [facility] Family History Problem Relation Age of Onset Cancer Mother Diabetes Mother Coronary artery disease Father Stroke Father Cancer Father Family Status - Relation Status Age at Mother Father Normal [facility] Orders Onlyon 09-27-[id number] 1960 [facility] Provider Department [place] 09/27/2023 Heriberto-ISHMAEL SY MAXWELL Nunez Family History Problem Relation Age of Onset Cancer Mother Diabetes Mother Coronary artery disease Father Stroke Father Cancer Father Family Status - Relation Status Age at Mother Father Normal [facility] Prep for Procedureon 024 Prep for Procedure [id number] [address] Lacey 1960 [facility] Provider Department [place] 09/27/2023 Alfredo-TAYLOR PEREZ [facility] Family History Problem Relation Age of Onset Cancer Mother Diabetes Mother Coronary artery disease Father Stroke Father Cancer Father Family Status - Relation Status Age at Mother Father Normal [facility] Telephone Encounteron 2022 Academic Services Coordinator Authentication Interface Message Text Patient has not been seen by this specialist in more than 1 year. Please contact patient to schedule office visit. Thank you Normal [facility] Office Visiton 09-08-2023 Follow-up visit [id number] Lane Lacey 1960 Provider Department Center 09/08/2023 BAKARI CARSON Family History Problem Relation Age of Onset Cancer Mother Diabetes Mother Coronary artery disease Father Stroke Father Cancer Father Family Status - Relation Status Age at Mother Father Level of Service:26414 DE OFFICE/OUTPATIENT NEW MODERATE MDM 45 MINUTES Reason for Visit and Comments: Follow-up [217541] - Seen George William 08/10/2023 [facility] Office Visiton 08-10-2023 Follow-up visit [id number] Lane Lacey zonia Mcintosh 1960 Date Provider Department [place] 08/10/2023 Isa-GEORGE WILLIAM Family History Problem Relation Age of Onset Cancer Mother Diabetes Mother Coronary artery disease Father Stroke Father Cancer Father Family Status - Relation Status Age at Mother Father Level of Service:35183 DE OFFICE/OUTPATIENT ESTABLISHED MOD MDM 30-39 MIN [facility] Orders Onlyon 08-10-[id number] Lacey 1960 Date Provider Department [place] 08/10/2023 NEO TAYLOR Hos Family History Problem Relation Age of Onset Cancer Mother Diabetes Mother Coronary artery disease Father Stroke Father Cancer Father Family Status - Relation Status Age at Mother Father [facility] HPon 07-11-2023 HP H&P reviewed. The patient was examined and there are no changes to the H&P. George William MD, MPH, [facility], [facility], [facility] Interventional Cardiology Pager Email: [email or web address]. [facility] NURSNOTEon 07-11-2023 NURSNOTE Pt performed and pas sed bedside swallow study. RN educated pt on d/c instructions. RN encouraged pt to voice any questions or concerns. Pt verbalizes no questions or concerns at this time. Pt was wheeled off of unit with all of belongings. [facility] NURSNOTE Pre certification no t yet gone through, per Dr. William he will ensure the bill is taken care of. [facility] Orders Onlyon 07-11-2023 Orders Only [id number] Kathie Laceyreanna Mcintosh 1960 Date Provider Department [place] 07/11/2023 6143-WILLIAM PIZANO C INF Stephanie Heal Family History Problem Relation Age of Onset Cancer Mother Diabetes Mother Coronary artery disease Father Stroke Father Cancer Father Family Status - Relation Status Age at Mother Father [facility] Telephoneon 07-10-[id number] Lacey 1960 M Date Provider Department Center 07/10/2023 XU HAY [facility] Family History Problem Relation Age of Onset Cancer Mother Diabetes Mother Coronary artery disease Father Stroke Father Cancer Father Family Status - Relation Status Age at Mother Father [facility] Letter (Out)on 07-05-2023 Letter (Out) [id number] Lane Lacey 1960 M Date Provider Department Center 07/05/2023 None-None [facility] Medical C Family History Problem Relation Age of Onset Cancer Mother Diabetes Mother Coronary artery disease Father Stroke Father Cancer Father Family Status - Relation Status Age at Mother Father [facility] 36on 07-03-2023 36 Patient's chantal tejada stating Dr. Hendrickson stopped lasix after lab results today (in multimedia production assistant for your review). also wants to know [...] to check on status of cath. Thanks. [facility] HPon 06-28-2023 [facility] Cardiology Clinic Note Chief Complaint: Patient here to re-establish care for PAF. Was last seen in [address] Peck. Had echo and ECG yesterday. states they recently returned home from [place]. While they were there, he had intermittent SOB with very swollen ankles. 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 Feeling chest pressure. He is in the process of getting a cpap machine for NANCY. HPI: ODILON Lacey is a 63 y.o. male known to me from prior office visits and his - Nitza Addison who works at [employer]. He has a known h/o PAF in the past ([id number]) thought to be related to thyroid issues [...] ST-T wave changes Assessment: Paroxysmal atrial fibrillation, [id number] score of 2-3 Chest pain - unstable [...] our elect (more content not included)... Normal [facility] Office Visiton 06-28-2023 Follow-up visit [id number] Lane Lacey 1960 M Date Provider Department Center 06/28/2023 271-GEORGE WILLIAM CARD [facility] Family History Problem Relation Age of Onset Cancer Mother Diabetes Mother Coronary artery disease Father Stroke Father Cancer Father Family Status - Relation Status Age at Mother Father Level of Service:65585 DE OFFICE/OUTPATIENT [facility] 60-74 MINUTES Normal [facility] Orders Onlyon 06-28-[id number]acey 1960 M Date Provider Department Center 06/28/2023 NEO TAYLOR MAXWELL Nunez Family History Problem Relation Age of Onset Cancer Mother Diabetes Mother Coronary artery disease Father Stroke Father Cancer Father Family Status - Relation Status Age at Mother Father Normal [facility] Patient Educationon 06-12-20 Patient Education Urology [...] Follow these instructions at home: ? Take kxbv-sip-rrtzahx and prescription medicines only as told by [...] Document (more content not included)... Normal [facility] Urology Office/Clinic Noteon 06-12-2023 Urology Office/Clinic Note [...] With When Contact Information HERRERA PRIETO, Vianey R, URL In 6 months [facility] [address] [place] [address]- [phone] Additional Instructions: w/Testosterone Level, PSA and CBC [...] 0.4 m (more content not included)... Normal [facility] Comment on above: Result Comment: Elec tronically Signed By: Vianey MENDOZA MD\.br\Date and Time Signed: 06/12/23 13:23 EDT\.br\Electronically Co-Signed By: Megan Brunson\.br\Date and Time Co-Signed: 06/12/23 13:20 EDT [facility] 05-23-2023 Lab Reports [id number] D:127 Normal [facility] Ambulatory Visit Summaryon 0 05-03-2023 Ambulatory Visit [...] 10:00 AM EDT Where: [facility] 04-26-2023 CNOV Office Visit (SPMESH ) CORINNEVIANEY AGUILERA ([id number]) 1960 M Date Time Provider Department 04/26/23 [...] palpable masses (more content not included)... Normal [facility] Lab Reportson 01-24-2023 Lab Reports [id number]#1.00C D:127 Normal [facility] TESTOSTERONE, TOTALon 2022 Testosterone [Mass/Vol] 347 ng/dL Normal 264-916 [facility] Comment on above: Result Comment: Adul t male reference interval is based on a population of healthy nonobese males (BMI <30) between 19 and 39 years old. Brad et.al. JCEM 2017,102;6919-2535. PMID: [id number]. Performed By: #### T ESTTOT #### [facility] [address] [place] [address] Dr. Reuben Morrison Pre-Certification Formon Pre-Certification Form [id number] :127 [facility] Pre-Certification Form [id number]#1.00C D:127 [facility] Ambulatory Visit Summaryon 0 12-02-2022 Ambulatory Visit Summary VIANEY LACEY :1960 Visit Date:12/02/2022 Ambulatory Visit Instructions Your Diagnosis BPH with urinary obstruction Hypogonadism male Tests Performed Urnls Dip Stick Auto w/o Microscopy POC 17350 Your Care Team Attending Physician - Vianey [...] Following Appointments Follow Up with HERRERA PRIETO, Vianey Crawford, DARA When: Where: [address] [place] [address]- Medications What How Much When Instructions Unchanged [...] Urnls Dip Stick Auto w/o Microscopy POC 31847 (12/02/2022) Bilirubin Urine Dipstick - Negative Blood Urine Dipstick - Negative Glucose Urine Dipstick - Negative Ketones Urine Dipstick - Negative Leukocytes Urine Dipstick - Negative Nitrite Urine Dipstick - Negative Protein Urine Dipstick - Negative Specific [place] Urine Dipstick - >=1.030 Urine Appearance Urine [...] post-void bladder (more content not included)... Normal [facility] Patient Educationon 12-03-19 Patient Education Urology Benign [...] Follow these instructions at home: ? Take syqe-ngw-vnpdqck and prescription medicines only as told by [...] You d (more content not included)... Normal [facility] Urology Office/Clinic Noteon 12-02-2022 Urology Office/Clinic Note [...] he desires. Follow-up With When Contact Information Vianey MENDOZA MD, URL [address] [place] [address]- Additional Instructions: 6 months w/ testosterone Patient [...] qWeek Allergie (more content not included)... Normal [facility] Comment on above: Result Comment: Elec tronically Signed By: Vianey MENDOZA MD\.br\Date and Time Signed: 12/02/22 09:04 EST\.br\Electronically Co-Signed By: Mirian Shepard\.br\Date and Time Co-Signed: 12/02/22 09:01 EST [facility] 11-29-2022 Lab Reports [id number] [facility] [id number] D:127 Normal [facility] XR TSPINE 3 VIEWSon 11-18-19 XR TSPINE [...] ALFREDITO LOAIZA Date: 2022-11-18 16:11 Normal [facility] TESTOSTERONE, TOTALon 2022 Testosterone [Mass/Vol] 993 ng/dL Critically high 264-916 [facility] Comment on above: Result Comment: Adul t male reference interval is based on a population of healthy nonobese males (BMI <30) between 19 and 39 years old. Brad et.al. JCEM 2017,102;2450-5928. PMID: [id number]. Performed By: #### T ESTTOT #### [facility] [address] [place] [address] Dr. Reuben Morrison Ambulatory Visit Summaryon 0 [...] PRIETO, Taylor [place] Where: [facility] Ambulatory Visit Summaryon 0 10-05-2022 Ambulatory [...] Monday 10:00 AM EST Where: [facility] CBC AUTO DIFFon 06-15-2022 BASO # 0.0 103/ul Normal 0.0-0.1 [facility] Comment on above: Performed By: #### C BC #### [facility] [address] [address] [address] Reuben Morrison Basophils/100 WBC (Bld) 0.4 % Normal 0.2-2.0 [facility] Comment on above: Performed By: #### C BC #### [facility] [address] [address] [address] Reuben Morrison EO # 0.1 103/ul Normal 0.0-0.7 [facility] Comment on above: Performed By: #### C BC #### [facility] [address] [place] [address] Dr. Reuben Morrison Eosinophils/100 WBC (Bld) 1.3 % Normal 0.9-7.0 [facility] Comment on above: Performed By: #### C BC #### [facility] [address] [place] [address] Dr. Reuben Morrison Erythrocyte distribution width (RBC) [Ratio] 14.3 % Normal 11.0-15.0 [facility] Comment on above: Performed By: #### C BC #### [facility] [address] [place] [address] Dr. Reuben Morrison Hematocrit (Bld) [Volume fraction] 48.9 % Normal 42.0-54.0 [facility] Comment on above: Performed By: #### C BC #### [facility] [address] [place] [address] Dr. Reuben Morrison Hemoglobin (Bld) [Mass/Vol] 16.6 g/dL Normal 14.0-18.0 [facility] Comment on above: Performed By: #### C BC #### [facility] [address] [place] [address] Dr. Reuben Morrison IG # 0.01 10e3/ul Normal 0.00-0.03 [facility] Comment on above: Performed By: #### C BC #### [facility] [address] [place] [address] Dr. Reuben Morrison IG % 0.2 % Normal 0.0-0.5 [facility] Comment on above: Performed By: #### C BC #### [facility] [address] [place] [address] Dr. Reuben Morrison LYMPH # 1.1 103/ul Critically low 1.2-3.8 [facility] Comment on above: Performed By: #### C BC #### [facility] [address] [place] [address] Dr. Reuben Morrison Lymphocytes/100 WBC (Bld) 24.3 % Normal 20.5-60.0 [facility] Comment on above: Performed By: #### C BC #### [facility] [address] [place] [address] Dr. Reuben Morrison MANUAL DIFF REQ NO Normal [facility] Comment on above: Performed By: #### C BC #### [facility] [address] [place] [address] Dr. Reuben Morrison MCH (RBC) [Entitic mass] 29.5 pg Normal 25.9-34.0 [facility] Comment on above: Performed By: #### C BC #### [facility] [address] [place] [address] Dr. Reuben Morrison MCHC (RBC) [Mass/Vol] 33.9 g/dL Normal 29.9-35.2 [facility] Comment on above: Performed By: #### C BC #### [facility] [address] [place] [address] Dr. Reuben Morrison MCV (RBC) [Entitic vol] 86.9 fL Normal 80.0-94.0 [facility] Comment on above: Performed By: #### C BC #### [facility] [address] [place] [address] Dr. Reuben Morrison MONO # 0.5 103/ul Normal 0.3-0.8 [facility] Comment on above: Performed By: #### C BC #### [facility] [address] [place] [address] Dr. Reuben Morrison Monocytes/100 WBC (Bld) 9.6 % Normal 1.7-12.0 [facility] Comment on above: Performed By: #### C BC #### [facility] [address] [place] [address] Dr. Reuben Morrison NEUT # 3.0 103/ul Normal 1.4-6.5 [facility] Comment on above: Performed By: #### C BC #### [facility] [address] [place] [address] Dr. Reuben Morrison Neutrophils/100 WBC (Bld) 64.2 % Normal 43.0-75.0 [facility] Comment on above: Performed By: #### C BC #### [facility] [address] [address] [address] Reuben Morrison Platelet mean volume (Bld) [Entitic vol] 9.7 fL Normal 9.5-13.5 [facility] Comment on above: Performed By: #### C BC #### [facility] [address] [id number] Reuben Morrison PLT 130 103/ul Critically low 150-450 [facility] Comment on above: Result Comment: plts . appear slightly decreased Performed By: #### C BC #### [facility] [address] [address] [address] Reuben Morrison RBC 5.63 106/ul Normal 4.70-6.10 [facility] Comment on above: Performed By: #### C BC #### [facility] [address] [address] [address] Reuebn Morrison WBC 4.7 103/ul Normal 4.0-11.0 [facility] Comment on above: Performed By: #### C BC #### [facility] [address] [address] [address] Reuben Morrison TESTOSTERONE, TOTALon 2021 Testosterone [Mass/Vol] 404 ng/dL Normal 264-916 [facility] Comment on above: Result Comment: Adul t male reference interval is based on a population of healthy nonobese males (BMI <30) between 19 and 39 years old. Brad et.al. JCEM 2017,102;5410-5982. PMID: [id number]. Performed By: #### T ESTTOT #### [facility] [address] [address] [address] Reuben Morrison CBC AUTO DIFFon 04-27-2022 BASO # 0.0 103/ul Normal 0.0-0.1 [facility] Comment on above: Performed By: #### T ESTTOT #### [facility] [address] [address] [address] Reuben Morrison Basophils/100 WBC (Bld) 1.0 % Normal 0.2-2.0 [facility] Comment on above: Performed By: #### T ESTTOT #### [facility] [address] [place] [address] Dr. Reuben Morrison EO # 0.1 103/ul Normal 0.0-0.7 [facility] Comment on above: Performed By: #### T ESTTOT #### [facility] [address] [place] [address] Dr. Reuben Morrison Eosinophils/100 WBC (Bld) 1.8 % Normal 0.9-7.0 [facility] Comment on above: Performed By: #### T ESTTOT #### [facility] [address] [place] [address] Dr. Reuben Morrison Erythrocyte distribution width (RBC) [Ratio] 14.0 % Normal 11.0-15.0 [facility] Comment on above: Performed By: #### T ESTTOT #### [facility] [address] [place] [address] Dr. Reuben Morrison Hematocrit (Bld) [Volume fraction] 47.3 % Normal 42.0-54.0 [facility] Comment on above: Performed By: #### T ESTTOT #### [facility] [address] [place] [address] Dr. Reuben Morrison Hemoglobin (Bld) [Mass/Vol] 16.2 g/dL Normal 14.0-18.0 [facility] Comment on above: Performed By: #### T ESTTOT #### [facility] [address] [place] [address] Dr. Reuben Morrison IG # 0.01 10e3/ul Normal 0.00-0.03 [facility] Comment on above: Performed By: #### T ESTTOT #### [facility] [address] [place] [address] Dr. Reuben Morrison IG % 0.3 % Normal 0.0-0.5 [facility] Comment on above: Performed By: #### T ESTTOT #### [facility] [address] [place] [address] Dr. Reuben Morrison LYMPH # 1.1 103/ul Critically low 1.2-3.8 [facility] Comment on above: Performed By: #### T ESTTOT #### [facility] [address] [place] [address] Dr. Reuben Morrison Lymphocytes/100 WBC (Bld) 26.6 % Normal 20.5-60.0 [facility] Comment on above: Performed By: #### T ESTTOT #### [facility] [address] [place] [address] Dr. Reuben Morrison MANUAL DIFF REQ NO Normal [facility] Comment on above: Performed By: #### T ESTTOT #### [facility] [address] [place] [address] Dr. Reuben Morrison MCH (RBC) [Entitic mass] 29.5 pg Normal 25.9-34.0 [facility] Comment on above: Performed By: #### T ESTTOT #### [facility] [address] [place] [address] Dr. Reuben Morrison MCHC (RBC) [Mass/Vol] 34.2 g/dL Normal 29.9-35.2 [facility] Comment on above: Performed By: #### T ESTTOT #### [facility] [address] [place] [address] Dr. Reuben Morrison MCV (RBC) [Entitic vol] 86.2 fL Normal 80.0-94.0 [facility] Comment on above: Performed By: #### T ESTTOT #### [facility] [address] [place] [address] Dr. Reuben Morrison MONO # 0.4 103/ul Normal 0.3-0.8 [facility] Comment on above: Performed By: #### T ESTTOT #### [facility] [address] [place] [address] Dr. Reuben Morrison Monocytes/100 WBC (Bld) 9.0 % Normal 1.7-12.0 [facility] Comment on above: Performed By: #### T ESTTOT #### [facility] [address] [place] [address] Dr. Reuben Morrison NEUT # 2.5 103/ul Normal 1.4-6.5 [facility] Comment on above: Performed By: #### T ESTTOT #### [facility] [address] [address] [address] Reuben Morrison Neutrophils/100 WBC (Bld) 61.3 % Normal 43.0-75.0 [facility] Comment on above: Performed By: #### T ESTTOT #### [facility] [address] [address] [address] Reuben Morrison Platelet mean volume (Bld) [Entitic vol] 9.6 fL Normal 9.5-13.5 [facility] Comment on above: Performed By: #### T ESTTOT #### [facility] [address] [place] [address] Dr. Reuben Morrison PLT 128 103/ul Critically low 150-450 [facility] Comment on above: Performed By: #### T ESTTOT #### [facility] [address] [address] [address] Reuben Morrison RBC 5.49 106/ul Normal 4.70-6.10 [facility] Comment on above: Performed By: #### T ESTTOT #### [facility] [address] [address] [address] Reuben Morrison WBC 4.0 103/ul Normal 4.0-11.0 [facility] Comment on above: Performed By: #### T ESTTOT #### [facility] [address] [place] [address] Dr. Reuben Morrison INSULINon 03-08-2022 Insulin 4.3 uIU/mL Normal 2.6-24.9 [facility] Comment on above: Performed By: #### T ESTTOT #### [facility] [address] [place] [address] Dr. Reuben Morrison TESTOSTERONE, TOTALon 2021 Testosterone [Mass/Vol] ng/dL Critically high 264-916 [facility] Comment on above: Result Comment: Adul t male reference interval is based on a population of healthy nonobese males (BMI <30) between 19 and 39 years old. mony [place]. JCEM 2017,102;5137-7941. PMID: [id number]. Performed By: #### T ESTTOT #### [facility] [address] [address] [address] Reuben Morrison CBC AUTO DIFFon 03-07-2022 BASO # 0.1 103/ul Normal 0.0-0.1 [facility] Comment on above: Performed By: #### C BC #### [facility] [address] [address] [address] Reuben Morrison Basophils/100 WBC (Bld) 1.4 % Normal 0.2-2.0 [facility] Comment on above: Performed By: #### C BC #### [facility] [address] [place] [address] Dr. Reuben Morrison EO # 0.1 103/ul Normal 0.0-0.7 [facility] Comment on above: Performed By: #### C BC #### [facility] [address] [place] [address] Dr. Reuben Morrison Eosinophils/100 WBC (Bld) 1.4 % Normal 0.9-7.0 [facility] Comment on above: Performed By: #### C BC #### [facility] [address] [place] [address] Dr. Reuben Morrison Erythrocyte distribution width (RBC) [Ratio] 14.7 % Normal 11.0-15.0 [facility] Comment on above: Performed By: #### C BC #### [facility] [address] [place] [address] Dr. Reuben Morrison Hematocrit (Bld) [Volume fraction] 49.8 % Normal 42.0-54.0 [facility] Comment on above: Performed By: #### C BC #### [facility] [address] [place] [address] Dr. Reuben Morrison Hemoglobin (Bld) [Mass/Vol] 16.4 g/dL Normal 14.0-18.0 [facility] Comment on above: Performed By: #### C BC #### [facility] [address] [place] [address] Dr. Reuben Morrison IG # 0.01 10e3/ul Normal 0.00-0.03 [facility] Comment on above: Performed By: #### C BC #### [facility] [address] [place] [address] Dr. Reuben Morrison IG % 0.3 % Normal 0.0-0.5 [facility] Comment on above: Performed By: #### C BC #### [facility] [address] [place] [address] Dr. Reuben Morrison LYMPH # 0.9 103/ul Critically low 1.2-3.8 [facility] Comment on above: Performed By: #### C BC #### [facility] [address] [place] [address] Dr. Reuben Morrison Lymphocytes/100 WBC (Bld) 24.7 % Normal 20.5-60.0 [facility] Comment on above: Performed By: #### C BC #### [facility] [address] [place] [address] Dr. Reuben Morrison MANUAL DIFF REQ NO Normal [facility] Comment on above: Performed By: #### C BC #### [facility] [address] [place] [address] Dr. Reuben Morrison MCH (RBC) [Entitic mass] 28.9 pg Normal 25.9-34.0 [facility] Comment on above: Performed By: #### C BC #### [facility] [address] [place] [address] Dr. Reuben Morrison MCHC (RBC) [Mass/Vol] 32.9 g/dL Normal 29.9-35.2 [facility] Comment on above: Performed By: #### C BC #### [facility] [address] [place] [address] Dr. Reuben Morrison MCV (RBC) [Entitic vol] 87.7 fL Normal 80.0-94.0 [facility] Comment on above: Performed By: #### C BC #### [facility] [address] [place] [address] Dr. Reuben Morrison MONO # 0.4 103/ul Normal 0.3-0.8 [facility] Comment on above: Performed By: #### C BC #### [facility] [address] [place] [address] Dr. Reuben Morrison Monocytes/100 WBC (Bld) 9.5 % Normal 1.7-12.0 [facility] Comment on above: Performed By: #### C BC #### [facility] [address] [place] [address] Dr. Reuben Morrison NEUT # 2.3 103/ul Normal 1.4-6.5 [facility] Comment on above: Performed By: #### C BC #### [facility] [address] [place] [address] Dr. Reuben Morrison Neutrophils/100 WBC (Bld) 62.7 % Normal 43.0-75.0 [facility] Comment on above: Performed By: #### C BC #### [facility] [address] [place] [address] Dr. Reuben Morrison Platelet mean volume (Bld) [Entitic vol] 9.8 fL Normal 9.5-13.5 [facility] Comment on above: Performed By: #### C BC #### [facility] [address] [place] [address] Dr. Reuben Morrison PLT 149 103/ul Critically low 150-450 [facility] Comment on above: Performed By: #### C BC #### [facility] [address] [place] [address] Dr. Reuben Morrison RBC 5.68 106/ul Normal 4.70-6.10 [facility] Comment on above: Performed By: #### C BC #### [facility] [address] [place], [place] [id number] Dr. Reuben Morrison WBC 3.7 103/ul Critically low 4.0-11.0 [facility] Comment on above: Performed By: #### C BC #### [facility] [address] [place] [address] Dr. Reuben Morrison FREE THYROXINE INDEX T7on 06 -13-2022 FTI 2.50 Normal 1.30-4.50 [facility] Comment on above: Performed By: #### C MP, T7, TSH, LIPID #### [facility] [address] [address] [address] Reuben Morrison T3U 39.0 % Normal 33.0-40.0 [facility] Comment on above: Performed By: #### C MP, T7, TSH, LIPID #### [facility] [address] [address] [address] Reuben Morrison T4 [Mass/Vol] 6.40 ug/dL Normal 4.50-12.10 [facility] Comment on above: Performed By: #### C MP, T7, TSH, LIPID #### [facility] [address] [place] [address] Dr. Reuben Morrison GLYCOHEMOGLOBIN A1Con 2021 ADA RECOMMENDATION SEE BELOW Normal [facility] Comment on above: Result Comment: ADA RECOMMENDED LIMIT 4.0 - 6.0 ADA THERAPEUTIC TARGET < 7.0 ACTION SUGGESTED > 7.0 Performed By: #### T ESTTOT #### [facility] [address] [place] [address] Dr. Reuben Morrison Glucose [Mass/Vol] 105 mg/dL Normal [facility] Comment on above: Performed By: #### T ESTTOT #### [facility] [address] [place] [address] Dr. Reuben Morrison HbA1c (Bld) [Mass fraction] 5.3 % Normal 4.5-6.2 [facility] Comment on above: Performed By: #### T ESTTOT #### [facility] [address] [place] [address] Dr. Reuben Morrison IRONon 03-07-2022 Iron [Mass/Vol] 100.0 ug/dL Normal 65.0-175.0 [facility] Comment on above: Performed By: #### I BLAIR, PSASC, VITB12, VITAD #### [facility] [address] [place] [address] Dr. Reuben Morrison LIPID PROFILEon 03-07-2022 CHOL-HDL RATIO NORM SEE BELOW Normal [facility] Comment on above: Result Comment: 3.3 - 4.4 LOW RISK 4.4 - 7.1 AVERAGE RISK 7.1 - 11.0 MODERATE RISK >11.0 HIGH RISK Performed By: #### C MP, T7, TSH, LIPID #### [facility] [address] [address] [address] Reuben Morrison Cholesterol [Mass/Vol] 157 mg/dL Normal <=200 [facility] Comment on above: Performed By: #### C MP, T7, TSH, LIPID #### [facility] [address] [address] [address] Reuben Morrison Cholesterol in HDL [Mass/Vol] 48 mg/dL Normal 40-60 [facility] Comment on above: Performed By: #### C MP, T7, TSH, LIPID #### [facility] [address] [address] [address] Reuben Morrison Cholesterol in LDL [Mass/Vol] 96.0 mg/dL Normal [facility] Comment on above: Performed By: #### C MP, T7, TSH, LIPID #### [facility] [address] [address] [address] Reuben Morrison Cholesterol.total/C holesterol in HDL [Mass ratio] 3.3 {ratio} Normal [facility] Comment on above: Performed By: #### C MP, T7, TSH, LIPID #### [facility] [address] [address] [address] Reuben Morrison HDL NORMAL > or = 60 mg/dl - LO W CARDIOVASCULAR RISK <40 mg/dl - HIGH CARDIOVASCULAR RISK Normal [facility] Comment on above: Performed By: #### C MP, T7, TSH, LIPID #### [facility] [address] [address] [address] Reuben Morrison LDL CALC NORMAL SEE BELOW Normal [facility] Comment on above: Result Comment: <100 mg/dl OPTIMAL 100 - 129 mg/dl NEAR OR ABOVE OPTIMAL 130 - 159 mg/dl BORDERLINE HIGH 160 - 189 mg/dl HIGH >190 mg/dl VERY HIGH Performed By: #### C MP, T7, TSH, LIPID #### [facility] [address] [address] [address] Reuben Morrison Triglyceride [Mass/Vol] 65 mg/dL Normal <=150 [facility] Comment on above: Performed By: #### C MP, T7, TSH, LIPID #### [facility] [address] [address] [address] Reuben Morrison VLDL CALC 13.0 mg/dL Normal [facility] Comment on above: Performed By: #### C MP, T7, TSH, LIPID #### [facility] [address] [address] [address] Reuben Morrison PROF 14(COMP METB)on 022 Albumin [Mass/Vol] 3.7 g/dL Normal 3.4-5.0 [facility] Comment on above: Performed By: #### C MP, T7, TSH, LIPID #### [facility] [address] [address] [address] Reuben Morrison Albumin/Globulin [Mass ratio] 1.3 {ratio} Normal [facility] Comment on above: Performed By: #### C MP, T7, TSH, LIPID #### [facility] [address] [address] [address] Reuben Morriosn ALP [Catalytic activity/Vol] 53 U/L Normal 46-116 [facility] Comment on above: Performed By: #### C MP, T7, TSH, LIPID #### [facility] [address] [address] [address] Reuben Morrison ALT [Catalytic activity/Vol] 37 U/L Normal 16-63 [facility] Comment on above: Performed By: #### C MP, T7, TSH, LIPID #### [facility] [address] [address] [address] Reuben Morrison Anion gap [Moles/Vol] 11.0 mmol/L Normal [facility] Comment on above: Performed By: #### C MP, T7, TSH, LIPID #### [facility] [address] [address] [address] Reuben Morrison AST [Catalytic activity/Vol] 28 U/L Normal 15-37 [facility] Comment on above: Performed By: #### C MP, T7, TSH, LIPID #### [facility] [address] [address] [address] Reuben Morrison Bilirubin [Mass/Vol] 0.9 mg/dL Normal 0.2-1.0 [facility] Comment on above: Performed By: #### C MP, T7, TSH, LIPID #### [facility] [address] [address] [address] Reuben Morrison Calcium [Mass/Vol] 8.9 mg/dL Normal 8.5-10.1 [facility] Comment on above: Performed By: #### C MP, T7, TSH, LIPID #### [facility] [address] [place] [address] Dr. Reuben Morrison Chloride [Moles/Vol] 106 mmol/L Normal 98-107 [facility] Comment on above: Performed By: #### C MP, T7, TSH, LIPID #### [facility] [address] [place] [address] Dr. Reuben Morrison CO2 [Moles/Vol] 28.2 mmol/L Normal 21.0-32.0 [facility] Comment on above: Performed By: #### C MP, T7, TSH, LIPID #### [facility] [address] [place] [address] Dr. Reuben Morrison Creatinine [Mass/Vol] 1.55 mg/dL Critically high 0.70-1.30 [facility] Comment on above: Performed By: #### C MP, T7, TSH, LIPID #### [facility] [address] [place] [address] Dr. Reuben Morrison EGFR-AF GIBRALTARIAN 55 mL/min/1.73m2 Critically low >=60 [facility] Comment on above: Performed By: #### C MP, T7, TSH, LIPID #### [facility] [address] [place] [address] Dr. Reuben Morrison EGFR-NON AF GIBRALTARIAN 46 mL/min/1.73m2 Critically low >=60 [facility] Comment on above: Performed By: #### C MP, T7, TSH, LIPID #### [facility] [address] [address] [address] Reuben Morrison Globulin (S) [Mass/Vol] 2.9 g/dL Normal [facility] Comment on above: Performed By: #### C MP, T7, TSH, LIPID #### [facility] [address] [address] [address] Reuben Morrison Glucose [Mass/Vol] 88 mg/dL Normal 74-106 [facility] Comment on above: Performed By: #### C MP, T7, TSH, LIPID #### [facility] [address] [address] [address] Reuben Morrison Potassium [Moles/Vol] 4.2 mmol/L Normal 3.5-5.1 [facility] Comment on above: Performed By: #### C MP, T7, TSH, LIPID #### [facility] [address] [place] [address] Dr. Reuben Morrison Protein [Mass/Vol] 6.6 g/dL Normal 6.4-8.2 [facility] Comment on above: Performed By: #### C MP, T7, TSH, LIPID #### [facility] [address] [address] [address] Reuben Morrison Sodium [Moles/Vol] 141 mmol/L Normal 136-145 [facility] Comment on above: Performed By: #### C MP, T7, TSH, LIPID #### [facility] [address] [address] [address] Reuben Morrison Urea nitrogen [Mass/Vol] 13.0 mg/dL Normal 7.0-18.0 [facility] Comment on above: Performed By: #### C MP, T7, TSH, LIPID #### [facility] [address] [address] [address] Reuben Morrison Urea nitrogen/Creatinine [Mass ratio] 8.4 mg/mg Normal [facility] Comment on above: Performed By: #### C MP, T7, TSH, LIPID #### [facility] [address] [address] [address] Reuben Morrison TSHon 06-13-2022 TSH 0.091 uIU/mL Critically low 0.358-3.740 [facility] Comment on above: Performed By: #### C MP, T7, TSH, LIPID #### [facility] [address] [place] [address] Dr. Reuben Morrison TSH RANGE SEE BELOW Normal [facility] Comment on above: Result Comment: <0.3 4 UIU/ml HYPERTHYROID 0.34-5.60 UIU/ml EUTHYROID >5.60 UIU/ml HYPOTHYROID Performed By: #### C MP, T7, TSH, LIPID #### [facility] [address] [place], [place] [address] Dr. Reuben Morrison VITAMIN B12on 03-07-2022 Cobalamin (Vitamin B12) [Mass/Vol] 3126.0 pg/mL Critically high 193.0-986.0 [facility] Comment on above: Performed By: #### T ESTTOT #### [facility] [address] [place] [address] Dr. Reuben Morrison VITAMIN D 25 OHon 03-07-2022 VIT D 25-OH 90.4 ng/mL Normal [facility] Comment on above: Performed By: #### T ESTTOT #### [facility] [address] [place] [address] Dr. Reuben Morrison VIT D RANGES SEE BELOW Normal [facility] Comment on above: Result Comment: <20 ng/mL Vit D deficient 20 - <30 ng/mL Vit D insufficient 30 - 100 ng/mL Vit D sufficient >100 ng/mL Potential Toxicity Performed By: #### T ESTTOT #### [facility] [address] [place] [address] Dr. Reuben Morrison XR SHOULDER RICHARD 2V [...] by: ERIN HANSEN Date: 2022-03-07 16:26 Normal [facility] Vital Signs Date Time Vital Sign Value Performing Clinician Facility 10-16-2023 13:03-0500 Blood Pressure Location Vianey MENDOZA [facility] 10-16-2023 13:03-0500 Diastolic blood pressure 82 mm[Hg] Vianeyzayra MENDOZA [facility] 10-16-2023 13:03-0500 Heart rate 75 /min Vianey MENDOZA [facility] 10-16-2023 13:03-0500 Respiratory rate 16 /min Vianey MENDOZA [facility] 10-16-2023 13:03-0500 Systolic blood pressure 131 mm[Hg] Vianey MENDOZA [facility] 07-27-2023 10:00-0400 Body height 168.91 cm Sandoval Antonia Other [facility] Other 07-27-2023 10:00-0400 Body mass index (BMI) [Ratio] 28.55 kg/m2 Sandoval Antonia Other [facility] Other 07-27-2023 10:00-0400 Body temperature 96.2 [degF] Sandoval Antonia Other [facility] Other 07-27-2023 10:00-0400 Body weight 81.47 kg Sandoval Antonia Other [facility] Other 07-27-2023 10:00-0400 Diastolic blood pressure 87 mm[Hg] Sandoval Antonia Other [facility] Other 07-27-2023 10:00-0400 Respiratory rate 16 /min Sandoval Antonia Other [facility] Other 07-27-2023 10:00-0400 SaO2% (BldA) [Mass fraction] 94 % Sandoval Antonia Other [facility] Other 07-27-2023 10:00-0400 Systolic blood pressure 130 mm[Hg] Sandoval Antonia Other [facility] Other 06-12-2023 12:25-0400 Blood Pressure Location Vianey MENDOZA [facility] 06-12-2023 12:25-0400 Diastolic blood pressure 74 mm[Hg] Vianey MENDOZA [facility] 06-12-2023 12:25-0400 Heart rate 68 /min Vianey MENDOZA [facility] 06-12-2023 12:25-0400 Respiratory rate 16 /min Vianey MENDOZA [facility] 06-12-2023 12:25-0400 Systolic blood pressure 128 mm[Hg] Vianey MENDOZA [facility] 04-26-2023 11:15-0400 Body height 168.4 cm Shawanda Hernandez PA-C Work Phone: [facility] 04-26-2023 11:15-0400 Body temperature 98.01 [degF] Shawanda Hernandez PA-C Work Phone: [facility] 04-26-2023 11:15-0400 Body weight 86.95 kg Shawanda Hernandez PA-C Work Phone: [facility] 04-26-2023 11:15-0400 Diastolic blood pressure 94 mm[Hg] Shawanda Hernandez PA-C Work Phone: [facility] 04-26-2023 11:15-0400 Heart rate 74 /min Shawanda Hernandez PA-C Work Phone: [facility] 04-26-2023 11:15-0400 SaO2% (BldA) [Mass fraction] 97 % Shawanda Hernandez PA-C Work Phone: [facility] 04-26-2023 11:15-0400 Systolic blood pressure 147 mm[Hg] Shawanda Hernandez PA-C Work Phone: [facility] 12-02-2022 08:12-0500 Blood Pressure Location Vianey MENDOZA [facility] 12-02-2022 08:12-0500 Diastolic blood pressure 84 mm[Hg] Vianey MENDOZA [facility] 12-02-2022 08:12-0500 Heart rate 70 /min Vianey MENDOZA [facility] 12-02-2022 08:12-0500 Respiratory rate 16 /min Vianey MENDOZA [facility] 12-02-2022 08:12-0500 Systolic blood pressure 137 mm[Hg] Vianey MENDOZA [facility] 07-20-2022 14:11-0400 Body mass index (BMI) [Ratio] 28.98 kg/m2 Jovita Vikr MD Work Phone: [email or web address] 07-20-2022 14:11-0400 Body temperature 98.01 [degF] Jovita Virk MD Work Phone: [email or web address] 07-20-2022 14:11-0400 Body weight 83.92 kg Jovita Virk MD Work Phone: [email or web address] 07-20-2022 14:11-0400 Diastolic blood pressure 86 mm[Hg] Jovita Virk MD Work Phone: [email or web address] 07-20-2022 14:11-0400 Heart rate 98 /min Jovita Virk MD Work Phone: [email or web address] 07-20-2022 14:11-0400 Respiratory rate 14 /min Jovita Virk MD Work Phone: [email or web address] 07-20-2022 14:11-0400 SaO2% (BldA) [Mass fraction] 100 % Jovita Virk MD Work Phone: [email or web address] 07-20-2022 14:11-0400 Systolic blood pressure 138 mm[Hg] Jovita Virk MD Work Phone: [email or web address] Encounters Encounter Date Encounter Type Care Provider Facility Start: 11-27-2023 ambulatory Vianey Velazquez ty:[facility]HA[facility] [place] Start: 10-16-2023 ambulatory Vianey Velazquez ty:[facility]HA[facility] [place] Start: 10-16-2023 End: 10-16-2023 Patient encounter procedure Vianey MENDOZA [facility] Start: 09-08-2023 End: 09-08-2023 ambulatory BAKARI SCOTT [facility] Start: 08-10-2023 End: 08-10-2023 ambulatory GEORGE WILLIAM [facility] Start: 07-27-2023 End: 07-27-2023 ambulatory Sandoval Knight Other [facility] Other Start: 07-27-2023 Office outpatient ne w 45 minutes [facility] Start: 07-11-2023 ambulatory [facility] Start: 07-11-2023 End: 07-11-2023 ambulatory [facility] Start: 07-10-2023 ambulatory Vianey Lewisi ty:[facility] Start: 06-28-2023 End: 06-28-2023 ambulatory [facility] Start: 06-12-2023 End: 06-13-2023 ambulatory Vianey MENDOZA Facility:[facility] Start: 06-12-2023 End: 06-12-2023 Patient encounter procedure Vianey MENDOZA [facility] Start: 05-30-2023 ambulatory Taylor Joshua Facility:[facility] [place] [facility] Start: 05-03-2023 End: 05-04-2023 ambulatory Taylor Joshua Facility:[facility] [place] Start: 05-03-2023 End: 05-03-2023 Patient encounter procedure Taylor Joshua [facility] Start: 04-26-2023 End: 04-26-2023 ambulatory ILDA HENDRICKSON Facility:[facility] Start: 04-26-2023 End: 04-26-2023 Patient encounter procedure Shawanda Hernandez PA-C Work Phone: [facility] Comment on above: Height loss (Primary Dx) Start: 04-05-2023 End: 04-06-2023 ambulatory Taylor Joshua Facility:[facility] Start: 03-08-2023 End: 03-09-2023 ambulatory KYLE RODRIGUEZ Facility:[facility] Start: 03-08-2023 End: 03-08-2023 Patient encounter procedure KYLE RODRIGUEZ [facility] Start: 02-07-2023 End: 02-08-2023 ambulatory Vianey MENDOZA Facility:[facility] Start: 01-20-2023 End: 01-21-[address] ILDA HENDRICKSON . Facility:[facility] Start: 12-02-2022 End: 12-03-2022 ambulatory Vianey MENDOZA Facility:[facility] Start: 12-02-2022 End: 12-02-2022 Patient encounter procedure Vianey MENDOZA [facility] Start: 11-18-2022 End: 11-19-[address] ILDA HENDRICKSON . Facility:[facility] Start: 11-08-2022 End: 11-09-2022 ambulatory TAYLOR JOSHUA . Facility:[facility] Start: 11-01-2022 End: 11-02-2022 ambulatory KYLE RODRIGUEZ Facility:[facility] Start: 11-01-2022 End: 11-01-2022 Patient encounter procedure KYLE RODRIGUEZ [facility] Start: 10-05-2022 End: 10-06-2022 ambulatory KYLE RODRIGUEZ Facility:[facility] Start: 10-05-2022 End: 10-05-2022 Patient encounter procedure KYLE RODRIGUEZ [facility] Start: 09-07-2022 End: 09-08-2022 ambulatory Taylor Joshua Facility:[facility] [place] [facility] Start: 09-07-2022 End: 09-07-2022 Patient encounter procedure Taylor Joshua [facility] Start: 08-28-2022 Letter encounter Jovita Virk MD Work Phone: [facility] Start: 08-17-2022 End: 08-18-2022 ambulatory Taylor Joshua Facility:[facility] Start: 08-17-2022 End: 08-17-2022 Patient encounter procedure Taylor Joshua [facility] Start: 08-12-2022 Telephone encounter Aarti vences MA, [facility], PRACTICE SPECIALIST Work Phone: [facility] Start: 07-21-2022 End: 07-22-[address] ILDA HENDRICKSON . 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); Cognitive changes; Body mass index (BMI) 28.0-28.9, adult Start: 07-11-2022 End: 07-11-2022 Patient encounter procedure Vianey MENDOZA [facility] Start: 06-15-2022 End: 06-16-[address] SAEED Flores Facility: Start: 06-13-2022 End: 06-13-2022 Patient encounter procedure Vianey MENDOZA [facility] Start: 04-27-2022 End: 04-28-[address] SAEED Flores Facility:[facility] Start: 04-07-2022 Refill Jovita Virk MD Work Phone: [facility] [place] [facility] Comment on above: Refill Start: 03-21-[address] ILDA HENDRICKSON . Facili ty:[facility] Start: 03-17-[address] ILDA HENDRICKSON . Facili ty:[facility] Start: 03-09-2022 Encounter for genera l adult medical examination without abnormal findings DR ILDA HENDRICKSON . [facility] Start: 03-07-2022 End: 03-08-2022 Encounter for general adult medical examination without abnormal findings DR ILDA HENDRICKSON . Facility:[facility] Start: 03-07-2022 End: 03-08-[address] ILDA HENDRICKSON . Facility: Start: 03-01-2022 End: 03-01-2022 Patient encounter procedure Saeed Cantu Jr. [facility] Start: 02-01-2022 End: 02-01-2022 Patient encounter procedure Saeed Cantu Jr. [facility] Start: 01-04-2022 End: 01-04-2022 Patient encounter procedure Saeed Cantu Jr. [facility] Procedures Date Procedure Procedure Detail Performing Clinician Start: 09-08-2023 Follow-up visit Follow-up BAKARI SANTOYO Start: 06-15-[address] FABIÁN HENDRICKSON . Comment on above: Performed By: #### T ESTTOT #### [facility] [address] [place] [address] Dr. Reuben Morrison Start: 03-07-[address] FABIÁN HENDRICKSON . Comment on above: Performed By: #### I BLAIR, PSASC, VITB12, VITAD #### [facility] [address] [place] [address] Dr. Reuben Morrison Start: 12-21-2016 Cystourethroscopy wi dilation of urethral stricture Saeed Cantu Jr. Arthroplasty of knee Saeed Cantu Jr. Comment on above: Left side Hernia repair Saeed vasquez Repair of musculoten dinous cuff of shoulder Saeed Cantu Jr. Plan of Treatment Date Care Activity Detail Author Start: 09-04-2031 Urine microalbumin profile DTAP,TDAP,TD (2 - Tdap) [facility] Start: 06-15-2027 PROSTATE CANCER SCREENING DISCUSSION PROSTATE CANCER SCREENING DISCUSSION [facility] Start: 05-26-2023 Influenza vaccination INFLUENZA (#1) [facility] Start: 09-25-2022 DEPRESSION ASSESSMENT DEPRESSION ASSESSMENT [facility] Start: 09-20-2022 COVID-19 Vaccine (5 - Booster for Pfizer series) COVID-19 Vaccine (5 - Booster for Pfizer series) [facility] Start: 09-20-2022 COVID-19 VACCINE (5 - Pfizer series) COVID-19 VACCINE (5 - Pfizer series) [facility] Start: 07-19-2022 End: 07-19-2022 Patient encounter procedure 07/19/2022 Office Visit Physical Medicine & Rehab/PM&R Jovita Virk MD [address] [place] [id number] [facility] [place] [facility] Start: 06-25-2022 Influenza vaccination Influenza Vaccine (#1) [facility] Start: 05-31-2022 Shingles (RZV) Vaccine (2 of 2) Shingles (RZV) Vaccine (2 of 2) [facility] Start: 01-19-2022 COVID-19 Vaccine (4 - Booster for Pfizer series) COVID-19 Vaccine (4 - Booster for Pfizer series) [facility] Start: 11-15-2021 COVID-19 Vaccine (4 - Booster for Pfizer series) COVID-19 Vaccine (4 - Booster for Pfizer series) [facility] Start: 09-05-2021 Lipid panel Cholesterol [facility] Start: 12-04-2020 DIABETES SCREEN DIABETES SCREEN [facility] Start: 11-23-2014 Annual wellness visit Annual Wellness Visit (G0438) [facility] Start: 06-10-2012 Thyroid stimulating hormone measurement TSH [facility] Start: 2009 Measurement of occult blood in single stool specimen FIT [facility] Start: 2009 Screening for malignant neoplasm of colon CRC Screening [facility] Start: 2009 Shingles (RZV) Vaccine (1 of 2) Shingles (RZV) Vaccine (1 of 2) [facility] Start: 02-22-2004 COLOGUARD (FIT-DNA) COLOGUARD (FIT-DNA) [facility] Start: 02-22-2004 Colonoscopy COLONOSCOPY [facility] Start: 02-22-2004 COLORECTAL CANCER SCREENING COLORECTAL CANCER SCREENING [facility] Start: 02-22-[address] COLONOGRAPHY [facility] Start: 02-22-2004 FECAL OCCULT BLOOD FECAL OCCULT BLOOD [facility] Start: 02-22-2004 SIGMOIDOSCOPY SIGMOIDOSCOPY [facility] Start: 1994 LIPID SCREEN LIPID SCREEN [facility] Start: 1977 ANNUAL PCP TEAM CHRONIC DISEASE VISIT ANNUAL PCP TEAM CHRONIC DISEASE VISIT [facility] Start: 1977 Hepatitis C screening [facility] C Antibody [facility] Start: 1977 HEPATITIS C SCREENING HEPATITIS C SCREENING [facility] Start: 1977 HIV SCREENING HIV SCREENING [facility] Start: 1977 SPIROMETRY SPIROMETRY [facility] Start: 1977 Tetanus + diphtheria + acellular pertussis vaccine (product) Tdap Booster [facility] Start: 1974 HIV screening HIV Test [facility] Start: 1965 PNEUMOCOCCAL (1 - PCV) PNEUMOCOCCAL (1 - PCV) [facility] Start: 1959 Screening for malignant neoplasm of colon Colonoscopy [facility] Immunizations Immunization Date Immunization Notes Care Provider Fa [facility] 08-29-2022 zoster vaccine recombinant Shawanda Hernandez PA-C Work Phone: [facility] 07-25-2022 Influenza, injectabl e, Madin Alsen Canine Kidney, preservative free, quadrivalent Jovita Virk MD Work Phone: [facility] 04-05-2022 zoster vaccine recombinant Jovita Virk MD Work Phone: [facility] 09-04-2021 diphtheria, tetanus toxoids and pertussis vaccine Jovita Virk MD Work Phone: [facility] 08-25-2021 SARS-CoV-2 (COVID-19 ) Ad26 vaccine, recombinant Saeed Cantu Jr. [facility] 08-10-2021 influenza, injectabl e, quadrivalent, preservative free Jovita Virk MD Work Phone: [facility] 08-10-2021 influenza virus vaccine, unspecified formulation Jovita Virk MD Work Phone: [facility] 06-25-2021 influenza virus vaccine, unspecified formulation Saeed Cantu Jr. [facility] 12-22-2020 Pfizer (12+ yrs) SARS-COV-2 (COVID-19) vaccine, mRNA, spike protein, LNP, pres. free, 30 mcg/0.3mL dose (MUR=483) Jovita Virk MD Work Phone: [facility] 11-30-2020 Pfizer (12+ yrs) SARS-COV-2 (COVID-19) vaccine, mRNA, spike protein, LNP, pres. free, 30 mcg/0.3mL dose (EUX=091) Jovita Virk MD Work Phone: [facility] 08-25-2020 influenza virus vaccine, unspecified formulation Saeed Cantu Jr. [facility] 06-30-2020 influenza, injectabl e, quadrivalent, preservative free Jovita Virk MD Work Phone: [facility] 12-25-2019 SARS-CoV-2 (COVID-19 ) mRNA BNT-162b2 beau Cantu Jr. [facility] 11-24-2019 SARS-CoV-2 (COVID-19 ) mRNA BNT-162b2 beau Cantu Jr. [facility] Payers Date Payer Category Payer Unknown [id number] 2022 Unknown [id number] 2017 Unknown [id number] 2017 Unknown [id number] 2013 Medicare [id number] 1959 Medicare [id number] 1959 Self-pay [id number] 1959 Unknown [id number] 2.16.84 0.1.327253.3.579.2.593 1959 Unknown [id number] 2.16.84 0.1.182977.3.579.2.593 1959 Unknown [id number] 2.16.84 0.1.400505.3.579.2.593 1959 Unknown [id number] 2.16.84 0.1.858766.3.579.2.593 1959 Unknown [id number] 2.16.84 0.1.257125.3.579.2.593 1959 Unknown [id number] 2.16.84 0.1.718165.3.579.2.593 1959 Unknown [id number] 2.16.84 0.1.994772.3.579.2.593 1959 Unknown [id number] 2.16.84 0.1.150491.3.579.2.593 1959 Unknown [id number] 2.16.84 0.1.816684.3.579.2.593 1959 Unknown [id number] 2.16.84 0.1.793606.3.579.2.593 1959 Unknown [id number] 2.16.84 0.1.215293.3.579.2.593 1959 Unknown [id number] 2.16.8 40.1.697588.3.579.2.727 1959 Unknown [id number] 2.16.8 40.1.851417.3.579.2.72 1959 Unknown [id number] 2.16.8 40.1.812281.3.579.2.72 1959 Unknown [id number] 2.16.8 40.1.193715.3.579.2. 1959 Unknown [id number] 2.16.8 40.1.965370.3.579.2. 1959 Unknown [id number] 2.16.8 40.1.282733.3.579.2. 1959 Unknown [id number] 2.16.8 40.1.608046.3.579.2. 1959 Unknown [id number] 2.16.8 40.1.282812.3.579.2. 1959 Unknown [id number] 2.16.8 40.1.593240.3.579.2. 1959 Unknown [id number] 2.16.8 40.1.856501.3.579.2. 1959 Unknown [id number] 2.16.8 40.1.020831.3.579.2. 1959 Unknown [id number] 2.16.8 40.1.857100.3.579.2. 1959 Unknown [id number] 2.16.8 40.1.605988.3.579.2.72 1959 Unknown [id number] 2.16.8 40.1.308735.3.579.2.72 Unknown [id number] 2.16.84 0.1.977693.3.579.2.593 Social History Date Type Detail Facility Start: 10-05-2021 End: 10-16-2023 Tobacco smoking status Never smoked tobacco (finding) [facility] Tobacco smoking status Never [facility] Start: 01-03-2019 End: 04-26-2023 Sex Assigned At Male [facility] Start: 08-24-2011 End: 04-26-2023 Tobacco use and exposure Smokeless tobacco non-user [facility] Start: 12-07-2017 End: 08-12-2022 Alcohol intake Not Asked [facility] Start: 1960 Sex Assigned At Not on file [facility] Start: 08-12-2022 History SDOH Social Connections Phone 1 [facility] Start: 08-12-2022 History SDOH Social Connections Get Together 2 [facility] Start: 08-12-2022 History SDOH Social Connections [address] [facility] Start: 08-12-2022 Education 12 [facility] Start: 04-26-2023 Alcohol intake Current drinke r of alcohol (finding) [facility] Start: 01-03-2019 End: 04-26-2023 History of Social function [facility] Start: 12-04-2017 Alcohol Comment social [facility] Functional Status Date Assessment Result Facility 10-16-2023 Functional Status N/A [facility] 06-12-2023 Functional Status N/A [facility] 12-02-2022 Functional Status N/A [facility] Clinical Notes 04-07-2022 to 10-16-2023 Note Date & Type Note Facility 10-16-2023 Hospital Discharge instructions Patient Education 10/16/2023 13:58:13 Kegel Exercises Kegel Exercises Kegel exercises can help strengthen your pelvic floor muscles. The pelvic floor is a group of muscles that support your rectum, small intestine, and bladder. In females, pelvic floor muscles also help support the uterus. These muscles help you control the flow of urine and stool (feces). Kegel exercises are painless and simple. They do not require any equipment. Your provider may suggest Kegel exercises to: Improve bladder and bowel control. Improve sexual response. Improve weak pelvic floor muscles after surgery to remove the uterus (hysterectomy) or after , in females. Improve weak pelvic floor muscles after prostate gland removal or surgery, in males. Kegel exercises involve squeezing your pelvic floor muscles. These are the same muscles you squeeze when you try to stop the flow of urine or keep from passing gas. The exercises can be done while sitting, standing, or lying down, but it is best to vary your position. Ask your health care provider which exercises are safe for you. Do exercises exactly as told by your health care provider and adjust them as directed. Do not begin these exercises until told by your health care provider. Exercises How to do Kegel exercises: 1.Squeeze your pelvic floor muscles tight. You should feel a tight lift in your rectal area. If you are a female, you should also feel a tightness in your vaginal area. Keep your stomach, buttocks, and legs relaxed. 2.Hold the muscles tight for up to 10 seconds. 3.Breathe normally. 4.Relax your muscles for up to 10 seconds. 5.Repeat as told by your health care provider. Repeat this exercise daily as told by your health care provider. Continue to do this exercise for at least 4 6 weeks, or for as long as told by your health care provider. You may be referred to a physical therapist who can help you learn more about how to do Kegel exercises. Depending on your condition, your health care provider may recommend: Varying how long you squeeze your muscles. Doing several sets of exercises every day. Doing exercises for several weeks. Making Kegel exercises a part of your regular exercise routine. This information is not intended to replace advice given to you by your health care provider. Make sure you discuss any questions you have with your health care provider. Document Revised: 01/20/2022 Document Reviewed: 01/20/2022 [employer] Patient Education 2022 [employer]. Follow Up Care 07/31/2023 10:30:59 With:HERRERA PRIETO, Vianye Crawford, URL Address: [facility] [address] , [place] [address]- When:Within 1 Year(s) Comments:w/PSA [facility] 09-08-2023 Note [facility] Consult Note Reason [...] function. He is also recently seen a woodworking shop hand. They are weaning of amantadine which was [...] route for 90 days. vitamin B complex 100-2-895-2-2 mg/mL injection Refill(s) 0 No current facility-administered [...] tender Musculoskeletal Ins (more content not included)... [facility] 08-10-2023 Note [facility] Note Chief Complaint: Patient here [...] function. He is also recently seen a woodworking shop hand. They are weaning of amantadine which was [...] days., Disp: , Rfl: vitamin B complex 337-5-392-2-2 mg/mL injection, Refill(s) 0, Disp: , Rfl: [...] reversible ischemia. Ejection fraction is normal. Transesophageal Echocardiogram-[facility] Name: VIANEY LACEY Study Date: 07/11/2023 12:24 PM B/P: 104 mmHg/74 mmHg HR: Date of : 1960 Location: [facility] Height: 68 in. Age: 63 year(s) Patient Room : Weight: 189 lb. Gender: Male Patient Status: OutPt BSA: 2 m2 Indication: Atrial Fibrillation, Pre-Cardioversion Examination: JAMIN (Transesophageal Echo / CFI) Image Quality: Good Patient Consent: Informed, written consent was obtained for the procedure s p @ c 3 Exam Location: A JAMIN was performed in the [facility] without complications s p @ c 3 [...] A 12-lead EKG (more content not included)... [facility] 07-27-2023 Evaluation note Encounter Date Diagnosis [...] advised him to avoid NSAIDs or any [id number] er supplements. This deanna with the importance [...] - G47.33) Continue follow-up with the specialist. [facility] Other 10-17-2023 History general Narrative - Reported* Type Description Date Medical History FATIGUE Medical History EDEMA Surgical History CARDIO VERSION 07/11/2023 Surgical History LEFT KNEE REPLACEMENT Surgical History C5-C6 PLATE AND SCREWS Surgical History DOUBLE HERNIA REPAIR Surgical History RIGHT SHOULDER SCOPE Surgical History COLONOSCOPY Surgical History CYSTO SCOPE Hospitalization History SEE ABOVE Teles[employer] Other 10-17-2023 NotePatient: ODILON Lacey Procedure Information Date/Time: 07/11/23 1200 Procedure: Cardioversion Location: [facility] / [facility] (Cath) Providers: George William MD Clinical information reviewed: Physical Exam Airway Mallampati: III TM distance: >3 FB Neck ROM: full Cardiovascular Rhythm: irregular Dental Pulmonary Breath sounds clear to auscultation Abdominal Abdomen: soft Anesthesia Plan ASA 3 (Conscious sedation) Anesthetic plan and risks discussed with patient. Use of blood products discussed with patient who. [facility] Note Chief Complaint: Patient here to re-establish care for PAF. Was last seen in [address] Peck. Had echo and ECG yesterday. states they recently returned home from [place]. While they were there, he had intermittent SOB with very swollen ankles. 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 Feeling chest pressure. He is in the process of getting a cpap machine for NANCY. HPI: ODILON Lacey is a 63 y.o. male known to me from prior office visits and his - Nitza Addison who works at [employer]. He has a known h/o PAF in the past ([phone]) thought to be related to thyroid issues [...] ST-T wave changes Assessment: Paroxysmal atrial fibrillation, [id number] score of 2-3 Chest pain - unstable [...] referred to our elect (more content not included)...[facility]23 Hospital Discharge instructions Patient Education [...] therapy. Follow these instructions at home: Take sozk-ztg-mjtqqgd and prescription medicines only as told by [...] provider. Document Revised: 05/13/2021 Document Reviewed: 05/13/2021 [employer] Patient Education 2022 [employer]. Follow Up Care 05/04/2023 10:34:04 With:HERRERA PRIETO, Vianey Crawford, URL Address: [facility] [address] , [place] [address]- [phone] When:Within 6 Month(s) Comments:w/Testosterone Level, PSA and CBC [facility] 08-02-2023 NoteHNO ID: [id number] Author: Shawanda Hernandez PA-C Service: ? Author Type: Physician Otolaryngology Teacher Type: Progress Notes Filed: 04/26/2023 11:40 AM [...] Full Oblique Extension With (more content not included)...[facility] 04-26-2023 History of Present illness [...] 2023 TIME: 11:15 AM [facility] Discharge instructions Patient Education 12/02/2022 08:49:09 [...] urethra. Follow these instructions at home: Take dyno-kcr-cczbggl and prescription medicines only as told by [...] 09/11/2006 Document Revised: 08/06/2019 Document Reviewed: 10/16/2017 [employer] Patient Education 2020 [employer]. Follow Up Care 11/01/2022 10:29:54 With:HERRERA PRIETO, Vianey Crawford, URL Address: [address] [place], [place] [id number]- When: Unknown [facility] 11-18-2022 History of Present illness Narrative* Aarti Kelsey MA, CCC, PRACTICE SPECIALIST - 08/12/2022 12:27 PM EST SPEECH LANGUAGE [...] stated should already be in the system. PRACTICE SPECIALIST was speaking with patient's spouse via phone conversation attempting to troubleshoot and bypass the preliminary questionnaires. However, it was unsuccessful. PRACTICE SPECIALIST sent patient's spouse a direct link to her cell phone to connect to video visit and the same issues arose. Patient was connected to Wifi and using an iPad in home setting. The iPad did not successfully pass the hardware test and patient/patient's spouse were never able to successfully log on. PRACTICE SPECIALIST provided patient/patient's spouse the [facility] Support Team's contact information to reach out for further assistance with log on issues. PRACTICE SPECIALIST will e-mail patient's spouse/patient information regarding memory strategies, etc to help in the home setting (patient's spouse reported patient tends to misplace belongings, such as keys, etc and could use a refresher on the strategies. Patient's spouse stated she will take a look at the strategies and go from there with scheduling anything further. PRACTICE SPECIALIST provided patient/spouse with our direct line to SR Therapy dept if she has any further questions/concerns or needs to schedule. Patient left without being seen this date. documented in this [id number] Instructions* Patient Instructions* Jovita Virk MD - 07/20/2022 2:49 PM EDT -Get the sleep apnea addressed -Hold amantadine -Add memantine 5mg daily. -External referral for brain MRI. -Speech therapy for cognitive strategies. -R knee surgery. -F/up 1 year, sooner if needed. documented in this [id number] History of Present illness Narrative* Jovita Virk [...] 200 mg into the muscle once amonth. 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 Last available brain imaging [id number] showed ventriculomegaly that was deemed not hydrocephalus [...] Risk protocol implemented: No documented in this [id number] Telephone encounter Note* Telephone Encounter - Renetta [...] PCP on file No PCP on file [id number] Miscellaneous Notes* Telephone Encounter - Renetta Boyer [...] Appointments Appointment Date:02/01/2022 10:00:00 AM Scheduled Provider: Location:[facility] Appointment Type:URO Nurse Visit Appointment Date:03/01/2022 09:00:00 AM Scheduled Provider:Saeed Cantu Jr., MD Location:[facility] Appointment Type:URO Office Visit Appointment Date:04/05/2022 11:15:00 AM Scheduled Provider:Saeed Cantu Jr., MD Location:[facility] Appointment Type:URO Office Visit [facility] evaluation + Plan note Future Appointments Appointment Date:03/01/2022 09:00:00 AM Scheduled Provider:Saeed aCntu Jr., MD Location:[facility] Appointment Type:URO Office Visit Appointment Date:04/05/2022 11:15:00 AM Scheduled Provider:Saeed Cantu Jr., MD Location:[facility] Appointment Type:URO Office Visit [facility] evaluation + Plan note Future Appointments Appointment Date:04/05/2022 11:15:00 AM Scheduled Provider:Saeed Cantu Jr., MD Location:[facility] Appointment Type:URO Office Visit Diagnostic Tests Pending * Testosterone Level Total 03/01/22 [facility] evaluation + Plan note Future Appointments Appointment Date:07/11/2022 10:15:00 AM Scheduled Provider: Location:[facility] Appointment Type:URO Nurse Visit [facility] evaluation + Plan note Future Appointments Appointment Date:09/07/2022 10:00:00 AM Scheduled Provider: Location:[facility] Appointment Type:URO Nurse Visit [facility] evaluation + Plan note Future Appointments Appointment Date:10/05/2022 10:00:00 AM Scheduled Provider: Location:[facility] Appointment Type:URO Nurse Visit [facility] evaluation + Plan note Future Appointments Appointment Date:11/01/2022 10:00:00 AM Scheduled Provider: Location:[facility] Appointment Type:URO Nurse Visit [facility] evaluation + Plan note Future Appointments Appointment Date:11/30/2022 10:00:00 AM Scheduled Provider:Taylor Joshua MD Location:[facility] Appointment Type:URO Office Visit Diagnostic Tests Pending * CBC w/ Auto Diff 11/01/22 * Testosterone Level Total 11/01/22 [facility] evaluation + Plan note Diagnostic Tests Pending * Testosterone Level Total 12/17/22 * Testosterone Level Total 04/25/23 [facility] evaluation + Plan note Future Appointments Appointment Date:04/05/2023 10:00:00 AM Scheduled Provider: Location:[facility] Appointment Type:URO Nurse Visit [facility] evaluation + Plan note Future Appointments Appointment Date:05/30/2023 10:00:00 AM Scheduled Provider: Location:[facility] Appointment Type:URO Nurse Visit [facility] evaluation + Plan note Future Appointments Appointment Date:07/10/2023 09:30:00 AM Scheduled Provider: Location:[facility] Appointment Type:URO Nurse Visit Appointment Date:11/27/2023 09:45:00 AM Scheduled Provider:Vianey MENDOZA MD Location:[facility] Appointment Type:URO Office Visit Diagnostic Tests Pending * Testosterone Level Total 06/12/23 * PSA Total 06/12/23 * CBC w/ Auto Diff 06/12/23 [facility] evaluation + Plan note Future Appointments Appointment Date:10/21/2024 10:15:00 AM Scheduled Provider:Vianey MENDOZA MD Location:[facility] Appointment Type:URO Office Visit Diagnostic Tests Pending * PSA Total 10/16/23 [facility] evaluation note* 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 Body mass index (BMI) 28.0-28.9, adult [facility] Height loss- Primary Loss of height [facility] Narrative No data available for this section [facility] Hospital Discharge instructions No data available for this section [facility] [employer] progress note No data available for this section [facility] [employer] Advance Directives Latest Code Status on File Code Status [...] of brain injury (HCC) Jovita Virk MD [address] [place] [phone] Referral ID Status Reason Start Date Expiration Date Visits Requested Visits Authorized [id number] Authorized Patient Preference 2 07/20/2023 3 3 Comments Brain MRI without contrast. H/o TBI 2010. Continues to struggle with cognitive deficits, fatigue, impaired balance, unimproved. Please evaluate for other structural causes of these issues. Fax report to me at [phone]. Specialty Diagnoses / Procedures Referred By Contac t Referred To Contact Speech Pathology Diagnoses Cognitive changes Late effect of brain injury (HCC) Jovita Virk MD [address] [place] [address] [place] [id number] Referral ID Status Reason Start Date Expiration Date Visits Requested Visits Authorized [id number] [facility] 07/20/2023 10 10 Question Answer Is [...] History Records FoundNo Family History Records Found No data available for this section Additional Source Comments Reason for Visit (unrecogniz ed section and content) Reason Comments Refill Reason Comments Monitoring/follow-up Reason Comments back issue Care Teams (unrecognized sec tion and content) Personnel Name: Ilda Hendrickson MD Address: Address: [address] [place] [address] Business Intelligence Manager Relationship Specialty Start Date End Date Jovita Virk MD [address] [place] [address] Physician Physical Medicine & Rehab/PM&R 06/30/20 Business Intelligence Manager Relationship Specialty Start Date End Date Jovita Virk MD [address], [place] Physician Physical Medicine & Rehab/PM&R 06/30/20 Business Intelligence Manager Relationship Specialty Start Date End Date Jovita Virk MD [address] [place] [address] Physician Physical Medicine & Rehab/PM&R 10/6/20 Business Intelligence Manager Relationship Specialty Start Date End Date Ilda Hendrickson MD PCP - General Family Medicine 12/04/17 (unrecognized sect ion and content) No Status Records FoundNo Status Records FoundNo Status Records FoundNo Status Records FoundNo Status Records Found INFORMATION SOURCE (unrecogn ized section and content) DATE CREATED AUTHOR 01/27/2023 [facility] DATE CREATED AUTHOR AUTHOR'S ORGANIZ ATION 04/27/2023 [facility] DATE CREATED AUTHOR AUTHOR'S ORGANIZ ATION 07/31/2023 [facility] DATE CREATED AUTHOR AUTHOR'S ORGANIZ ATION 09/23/2023 [facility] DATE CREATED AUTHOR AUTHOR'S ORGANIZ ATION 10/14/2023 [facility] Source Comments (unrecognize d section and content) In the event this informatio n is protected by the Federal Confidentiality of Alcohol and Drug Abuse Patient Records regulations: The Federal rules restrict any use of the information to criminally investigate or prosecute any alcohol or drug abuse patient.[facility] FOR RECORDS PERTAINING TO PATIENTS WHO ARE [...] BE BASED ON THE PRIMARY CLINICAL RECORDS. [employer] [facility]. provides no warranty or guarantee of the accuracy or completeness of information in this document.
--- NOTE | 2023-10-24 13:42 | CA_ITS ---
The [facility] Test Date: 2023-10-24 Pat Name: VIANEY AARON Department: Room: - Gender: Male Director Information: Rachel Azul : 1960 Requested By: ILDA PECK Order Number: [id number] Reading MD: KAYCE MATHEWS Interpretive Statements Biphasic doppler waveforms PVR waveforms with normal upstroke, amplitude and dicrotic notch Right: - no significant pressure gradient between cuffs - normal TAYLOR Left: - no significant pressure gradient between cuffs - normal TAYLOR Impression: Normal arterial evaluation of the lower extremities without hemodynamic impairment of the B/L lower extremities at rest (right TAYLOR 1.21, left TAYLOR 1.15) Electronically Signed On 10-25-2023 6:54:10 EST by KAYCE MATHEWS
== END 2023-10-24 12:26 | disposition home or self-care (01) ==
LOC: CARD 12:25
PROVIDERS: PCP Family Medicine; Visit Provider Family Medicine
DX: M79.672 Pain in left foot (principal)
CPT/HCPCS: 93923

== ENCOUNTER 2023-10-31 10:26 | Outpatient (OUT) | payer BC, MEDICARE, SELFPAY ==
--- NOTE | 2023-10-31 | XR_ITS ---
The [address] [address] Patient Name: VIANEY AARON MRN: [id number] date: 1960 Sex: M Assigned Patient Location: [facility] Current Patient Location: Accession/Order Number: [id number] Exam Date: 10/31/2023 10:40 Report Date: 11/01/2023 06:35 At the request of: DIDIER ZHAO Procedure: XR foot LT min 3V PROCEDURE: XR foot LT min 3V HISTORY: LEFT FOOT PAIN ; first and second toe pain; no known injury COMPARISON: None. FINDINGS: BONES:No fracture, acute abnormality, or significant arthropathy. SOFT TISSUES:No visible soft tissue swelling. EFFUSION:None visible. OTHER: Negative. XR/XR foot LT min 3V IMPRESSION: 1. No acute bone abnormality or significant degenerative changes. 2. No appreciable soft tissue abnormality. Electronically authenticated by: ALFREDITO LOAIZA Date: 11/01/2023 06:35
--- OUTSIDE RECORDS SUMMARY | 2023-10-31 10:30 | XMS_ITS | CCD ---
Author Name Unknown Address [address] [place] [address] Organization [facility] Care Team Providers Care Animal Impersonator Name Role Phone Ilda Hendrickson Primary Care Physician Moose PRIETO, Jovita Unavailable Jovita Virk MD Unavailable CISCO ., DR GONSALES Primary Care Unavailable HOY ., DR GONSALES Attending Unavailable HOY ., DR GONSALES Admitting Unavailable HOY ., DR GONSALES Consulting Unavailable ZIEBER, DR ALFREDITO Crawford Consulting Unavailable LUE ., TAYLOR Pompa Admitting Unavailable LUE ., TAYLOR Pompa Attending [...] Unavailable Ilda Hendrickson MD Primary Care Provider [phone] ILDA HENDRICKSON Primary Care Unavailable SHAWANDA HERNANDEZ Attending Unavailable Sandoval Knight Unavailable Vianey MENDOZA Attending Unavailable MENDOZAVianey Attending Unavailable Taylor Joshua Attending Unavailable MENDOZA, Vianey Crawford Attending Unavailable JENNIFERKYLE Attending Unavailable MENDOZA, Vianey Crawford Attending Unavailable JENNIFERKYLE Attending Unavailable Taylor Joshua Attending Unavailable MENDOZA, Vianey Crawford Attending Unavailable Taylor Joshua Attending Unavailable MENDOZA, Vianey R Attending Unavailable MENDOZA, Vianey R Attending Unavailable ELTAHAWY, EHAB Referring Unavailable ELTAHAWY, EHAB Attending Unavailable ELTAHAWY, EHAB Attending Unavailable ELTAHAWY, EHAB Referring Unavailable ELTAHAWY, EHAB Referring Unavailable DEMETRA PORTER Attending Unavailable ELTAHAWY, EHAB Admitting Unavailable ELTAHAWY, EHAB Attending Unavailable ELTAHAWY, EHAB Referring Unavailable BAKARI GARCIA Attending Unavailable Allergies Allergy Classification Reported Allergen(s) Allergy Type Date of Onset Reaction(s) Facility (1 source) Ciprofloxacin Drug Allergy Unknown [facility] Other (1 source) No Known Medication Allergies; Translations: [No Known Medication Allergies] Propensity to adverse reactions (disorder) [facility] Repository Medications Current Medications Medication Drug [...] q4wk, # 10 mL, Refills(s) 1, Pharmacy: [facility]/pharmacy #[id number], 167, cm, 10/05/21 11:32:00 EST, Height/Length [...] take 1 capsule by mouth once daily [place]-3 Fatty Acids (FISH OIL) 1000 MG CAPS [...] Ordered Start: 02-08-2017 take 1 tablet by [facility] once daily liothyronine (CYTOMEL) 25 MCG tablet Take 1 Tablet by mouth daily. 30 Tablet 3 02/08/2017 Active Comment on above: Take 25 mcg by mouth once daily. memantine hydrochloride 5 mg oral tablet (4 sources) Q-qnyxfr-W-aspartat e Receptor Antagonist Start: 2 End: 2 [...] Daily, # 90 cap(s), Refills(s) 3, Pharmacy: [facility]/pharmacy #[id number], 170, cm, 06/12/23 12:26:00 EDT, Height/Length Dosing, 86.5, kg, 06/12/23 12:26:00 EDT, Weight Dosing Start Date: 07/07/23 Status: Ordered Start: 11-24-2021 End: 11-19-2022 take 1 capsule by mouth twice daily Flomax 0.4 mg Cap 0.4 mg = 1 cap(s), Oral, BID, X 90 day(s), # 180 cap(s), Refills(s) 3, Pharmacy: [facility]/pharmacy #[id number], 167, cm, 10/05/21 11:32:00 EST, Height/Length Dosing, 83, kg, 10/05/21 11:32:00 EST, Weight Dosing Start Date: 11/24/21 Stop Date: 11/19/22 Status: Ordered Start: 02-08-2017 take 1 capsule by [facility] once daily tamsulosin 0.4 mg Cap 0.4 mg = 1 cap(s), Oral, Daily, # 30 cap(s), Refills(s) 11, Pharmacy: [facility]/pharmacy #[id number], 170, cm, 06/12/23 12:26:00 EDT, Height/Length Dosing, 86.5, kg, 06/12/23 12:26:00 EDT, Weight Dosing Start Date: 06/12/23 Status: Ordered Comment on above: 0.4 mg once daily. testosterone cypionate 200 mg/ml injectable solution (16 sources) Androgen Start: 05-03-2023 Depo-Testosterone 200 mg/mL intramuscular solution 300 mg, IntraMuscular, q4wk, # 10 mL, Refills(s) 1, Pharmacy: [facility]/pharmacy #[id number], 170, cm, 12/02/22 8:17:00 EST, Height/Length Dosing, 83.2, kg, 12/02/22 8:17:00 EST, Weight Dosing Start Date: 05/03/23 Status: Ordered Start: 09-07-2022 Depo-Testoster one 200 mg/mL intramuscular solution 300 mg, IntraMuscular, q4wk, # 10 mL, Refills(s) 1, Pharmacy: [facility]/pharmacy #[id number], 167, cm, 10/05/21 11:32:00 EST, Height/Length Dosing, 83, kg, 05/10/22 10:08:00 EDT, Weight Dosing Start Date: 09/07/22 Status: Ordered Start: 01-04-2022 Depo-Testoster one 200 mg/mL intramuscular solution 300 mg, IntraMuscular, q4wk, # 10 mL, Refills(s) 1, Pharmacy: [facility]/pharmacy #[id number], 167, cm, 10/05/21 11:32:00 EST, Height/Length [...] take 1 capsule by mouth once daily [place] Aspartate 20 mg cap Take 1 capsule [...] Test Name Value Interpretation Reference Range Facility Physician Referralon 024 Physician Referral [id number] IFF Normal [facility] Lab Reportson 10-17-2023 Lab Reports [id number] FF [facility] Ambulatory Visit Summaryon 0 10-16-2023 Ambulatory Visit Summary VIANEY LACEY :1960 Visit Date:10/16/2023 Ambulatory Visit Instructions Your Diagnosis BPH with urinary obstruction Hypogonadism male Urge incontinence ED (erectile dysfunction) Tests Performed Urnls Dip Stick Auto w/o Microscopy POC 81483 Your Care Team Attending Physician - Vianey MENDOZA MD Primary Care Physician - Ilda Hendrickson MD This Is Your Medications List tamsulosin (tamsulosin 0.4 mg Cap) Contact prescribing physician if questions or concerns apixaban (Eliquis 5 mg oral tablet) ascorbic acid (Vitamin C) carvedilol (carvedilol 6.25 mg Tab) ergocalciferol (Vitamin D) levothyroxine (levothyroxine 150 mcg (0.15 mg) Tab) liothyronine (liothyronine 25 mcg Tab) multivitamin (Vitamin B Complex injectable solution) [Image Removed: STOP]Stop taking these medications testosterone (Depo-Testosterone 200 mg/mL intramuscular solution) Procedures Performed Cystourethroscopy with dilation of urethral stricture (12/21/2016), Hernia repair, Knee arthroplasty, Knee replacement, Rotator cuff repair. Discharge Vitals Heart Rate (Peripheral) 75 Respiratory Rate 16 Blood Pressure 131/82 Height 170 cm Height 67 in Weight 82 kg Weight 180.4 lb BMI 28.37 What to do next Scheduled Follow-Up Appointments Monday 10:15 AM EST With: HERRERA PRIETO, Vianey Crawford Where: [facility] [place] [facility] Patient Educationon 10-16-19 Patient Education Obstetrics and Gynecology Kegel Exercises Kegel exercises can help strengthen [...] Your provider may suggest Kegel exercises to: ? Improve bladder and bowel control. ? Improve sexual response. ? Improve weak pelvic floor muscles after surgery to remove the uterus (hysterectomy) or after , in females. ? Improve weak pelvic floor muscles after prostate [...] provider. Exercises How to do Kegel exercises: 1. Squeeze your pelvic floor muscles tight. You should feel a tight lift in your rectal area. If you are a female, you should also feel a tightness in your vaginal area. Keep your stomach, buttocks, and legs relaxed. 2. Hold the muscles tight for up to 10 seconds. 3. Breathe normally. 4. Relax your muscles for up to 10 seconds. 5. Repeat as told by your health care provider. Repeat this exercise daily as told by your health care provider. Continue to do this exercise for at least 4?6 weeks, or for as long as told by your health care provider. You may be referred to a physical therapist who can help you learn more about how to do Kegel exercises. Depending on your condition, your health care provider may recommend: ? Varying how long you squeeze your muscles. ? Doing several sets of exercises every day. ? Doing exercises for several weeks. ? Making Kegel exercises a part of your regular exercise routine. This information is not intended to replace advice given to you by your health care provider. Make sure you discuss any questions you have with your health care provider. Document Revised: 01/20/2022 Document Reviewed: 01/20/2022 [employer] Patient Education ? 2022 [employer]. Reginald [facility] Urology Office/Clinic Noteon 10-16-2023 Urology Office/Clinic Note Chief Complaint discuss DC'ing Testosterone Injection HPI Staff Pt last seen in our office 06/12/23 due to BPH, Hypogonadism & ED. Has been receiving monthly Testosterone 300mg IM injections. Pt is here today to discuss discontinuing Testosterone Injections. Testosterone 09/29/23 *443 pt has not received injection in our office since May. Has not noticed any changes since last injection. Would like to stop injections due to heart and kidney issues. Drinks 64oz or more water each day. Has noticed an increase in urgency. Voiding q1hr during the day, occasionally might wake up 1x/night to void. Denies all other urinary complaints. History of Present Illness Tests reviewed: reviewed UA and Testosterone. I have reviewed the previous health record information and history for this patient from . I have reviewed and verified the staff HPI to be accurate for this encounter. There have been no associated fever, chills, flank pain, or blood in the urine. Denies any urinary infections since last encounter. Review of Systems PHQ Score Initial Depression Screen Score: 0 SCORE ROS - Provider Constitutional: denies weight loss, [...] HPI. Physical Exam Vitals & Measurements HR: 75(Peripheral) RR: 16 BP: 131/82 HT: 67 in HT: 170 cm WT: 82 kg WT: 180.4 lb BMI: 28.37 General Appearance: alert, no distress, well nourished, well developed male. Assessment/Plan 1. BPH with urinary obstruction (N40.1: Benign prostatic hyperplasia with lower urinary tract symptoms) PSA 09/06/21 - 0.70 06/15/22 - 0.79 Pt currently takes Tamsulosin 0.4mg QD. Denies any SE's. AURELIA 06/12/23: 40 gm, benign UA today is negative for blood and infection. Pt states that he hardly gets up at night, drinks no less than 64oz of water. Pt states that he does use a C-Pap machine. Advised pt that this is the mask is the reason why he does not wake up in the night. Pt states that he voids about every hour to an hour and a half, drinks a lot of water. States his stream is strong. Denies any infections. Follow up in 1 yr w/PSA. All questions/concerns were discussed. Pt to call the office if he encounters any issues prior. Pt acknowledges understanding. -Cont Tamsulosin as above. Pt to call for refills. -Will order PSA. -See #3 2. Hypogonadism male (E29.1: Testicular hypofunction) T Level 04/27/22 - 404 11/08/22 - 993 01/20/23 - 347 05/19/23 - 456 09/29/23 - 443 09/29/23 - HGB 15.1 Pt had previously been getting Testosterone injections 300mg IM q4wks, last injection 06/12/23. Pt is here today to discuss discontinuing Testosterone Injections. Pt has not received injection in our office since May. Has not noticed any changes since last injection. Would like to stop injections due to heart and kidney issues. Pt states that he had gone into congestive heart failure, and now he is in A-fib, this is why he d/c the injections. Advised pt that his Testosterone level was normal, even without having the injections. Advised pt that his Testosterone may have gone back to normal and he may not need TRT anymore. 3. Urge incontinence (N39.41: Urge incontinence) Pt states that when he has the urge he has to cee to the restroom or he leaks. PVR today was 20mL. Advised pt that he is emptying his bladder. Advised pt that the urgency is most likely caused by his high volume intake. Advised pt that he could decrease his water intake for a day or two and see if that helps, and if that does not help, then it may have something to due with his prostate. 4. ED (erectile dysfunction) (N52.9: Male erectile dysfunction, unspecified) Reports his erection is not as firm as he desires. Pt has been hesitant of taking any ED meds due to reading information that they heighten the chances of a heart attack, advised pt that this is not the case, unless he start any nitroglycerin meds. Advised pt to hold off on starting any meds due to recent events with the pt's heart. Follow-up With When Contact Information Vianey MENDOZA MD, URL In 1 year [facility] [address], [place] [address]- Additional Instructions: w/PSA Patient Education Kegel Diane I, Megan Brunson , personally scribed for Dr. Mendoza on 10/16/2023 14:05:07. . Documentation recorded by the scribe, Megan Brunson, accurately reflects the services(s) I performed and decisions made by me. Problem List/Past Medical History Ongoing BPH with urinary obstruction ED (erectil (more content not included)... [facility] Comment on above: Result Comment: Elec tronically Signed By: Vianey MENDOZA MD\.br\Date and Time Signed: 10/16/23 14:10 EST\.br\Electronically Co-Signed By: Megan Brunson\.br\Date and Time Co-Signed: 10/16/23 14:05 EST Letter (Out)on 10-13-2023 Letter (Out) [id number] Lane Lacey 1960 M Date Provider Department Center 10/13/2023 None-None [facility] Family History Problem Relation Age of Onset Cancer Mother Diabetes Mother Coronary artery disease Father Stroke Father Cancer Father Family Status - Relation Status Age at Mother Father [facility] Orders Onlyon 09-27-[id number] Lacey 1960 M Date Provider Department Center 09/27/2023 Heriberto-ISHMAEL SY Family History Problem Relation Age of Onset Cancer Mother Diabetes Mother Coronary artery disease Father Stroke Father Cancer Father Family Status - Relation Status Age at Mother Father [facility] Prep for Procedureon 024 Prep for Procedure [id number] AbhijitLane Mcintosh 1960 [facility] Provider Department Center 09/27/20231986-TAYLOR [facility] V[facility] HeartVAS Family History Problem Relation Age of Onset Cancer Mother Diabetes Mother Coronary artery disease Father Stroke Father Cancer Father Family Status - Relation Status Age at Mother Father [facility] Telephone Encounteron 2022 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 Please contact patient to schedule office visit. Thank you Normal [facility] [employer] Office Visiton 09-08-2023 Follow-up visit [id number] Lane Lacey 1960 [facility] Provider Department Center 09/08/2023 241-BAKARI GARCIA [facility] Family History Problem Relation Age of Onset Cancer Mother Diabetes Mother Coronary artery disease Father Stroke Father Cancer Father Family Status - Relation Status Age at Mother Father Level of Service:55965 [place] OFFICE/OUTPATIENT NEW MODERATE MDM 45 MINUTES Reason for Visit and Comments: Follow-up [900333] - Seen George William 08/10/2023 [facility] Office Visiton 08-10-2023 Follow-up visit [id number] [address] Lacey 1960 [facility] Provider Department Center 08/10/2023 271-GEORGE WILLIAM Family History Problem Relation Age of Onset Cancer Mother Diabetes Mother Coronary artery disease Father Stroke Father Cancer Father Family Status - Relation Status Age at Mother Father Level of Service:25802 [place] OFFICE/OUTPATIENT ESTABLISHED MOD MDM 30-39 MIN [facility] Orders Onlyon 08-10-[id number] Lacey 1960 [facility] Provider Department Center 08/10/2023 Michelle-NEO FROST Family History Problem Relation Age of Onset Cancer Mother Diabetes Mother Coronary artery disease Father Stroke Father Cancer Father Family Status - Relation Status Age at Mother Father [facility] HPon 07-11-2023 H&P reviewed. The patient was examined and there are no changes to the H&P. George William MD, MPH, [facility] Interventional Cardiology Pager Email: [email or web address] [facility] NURSNOTEon 07-11-2023 NURSNOTE Pt performed and pas sed bedside swallow study. RN educated pt on d/c instructions. RN encouraged pt to voice any questions or concerns. Pt verbalizes no questions or concerns at this time. Pt was wheeled off of unit with all of belongings. [facility] NURSNOTE Pre certification no t yet gone through, per Dr. William he will ensure the bill is taken care of. [facility] Orders Onlyon 07-11-[id number]acey 1960 [facility] Provider Department [place] 07/11/2023 6143-CANCIC, WILLIAM C INF Stephanie Heal Family History Problem Relation Age of Onset Cancer Mother Diabetes Mother Coronary artery disease Father Stroke Father Cancer Father Family Status - Relation Status Age at Mother Father [facility] Telephoneon 07-10-[id number]acey 1960 [facility] Provider Department Center 07/10/2023 XU HAY [facility] VASC LAB [place] HeartVAS Family History Problem Relation Age of Onset Cancer Mother Diabetes Mother Coronary artery disease Father Stroke Father Cancer Father Family Status - Relation Status Age at Mother Father [facility] Letter (Out)on 07-05-2023 Letter (Out) [id number] Lane Lacey 1960 [facility] Provider Department Center 07/05/2023 None-None [facility] Family History Problem Relation Age of Onset Cancer Mother Diabetes Mother Coronary artery disease Father Stroke Father Cancer Father Family Status - Relation Status Age at Mother Father [facility] 36on 07-03-2023 36 Patient's cornejo d stating Dr. Hendrickson stopped lasix after lab results today (in media services coordinator for your review). also wants to [...] to check on status of cath. Thanks. [facility] 06-28-2023 [facility] Cardiology Clinic Note Chief Complaint: Patient here to re-establish care for PAF. Was last seen in [address] Peck. Had echo and ECG yesterday. states they recently returned home from [place]. While they were there, he had intermittent SOB with very swollen ankles. 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 Feeling chest pressure. He is in the process of getting a cpap machine for NANCY. HPI: ODILON Lacey is a 63 y.o. male known to me from prior office visits and his - Nitza Addison who works at [employer]. He has a known h/o PAF in the past ([id number]) thought to be related to thyroid issues [...] ST-T wave changes Assessment: Paroxysmal atrial fibrillation, [id number] score of 2-3 Chest pain - unstable [...] our elect (more content not included)... [facility] Office Visiton 06-28-2023 Follow-up visit [id number] Lane Lacey 1960 M Date Provider Department Center 06/28/2023 Isa-GEORGE WILLIAM Family History Problem Relation Age of Onset Cancer Mother Diabetes Mother Coronary artery disease Father Stroke Father Cancer Father Family Status - Relation Status Age at Mother Father Level of Service:00799 [place] OFFICE/OUTPATIENT [facility] 60-74 MINUTES [facility] Orders Onlyon 06-28-[id number] Lacey 1960 M Date Provider Department Center 06/28/2023 NEO TAYLOR Family History Problem Relation Age of Onset Cancer Mother Diabetes Mother Coronary artery disease Father Stroke Father Cancer Father Family Status - Relation Status Age at Mother Father [facility] Patient Educationon 06-12-20 Patient Education Urology Hypogonadism, [...] Follow these instructions at home: ? Take bwyr-efk-jmckdxg and prescription medicines only as told by [...] 05/13/2021 Document (more content not included)... [facility] Urology Office/Clinic Noteon 06-12-2023 Urology Office/Clinic [...] months [facility] [address], [place] [address] [phone] Additional Instructions: w/Testosterone Level, PSA and CBC [...] tamsulosin 0.4 m (more content not included)... [facility] Comment on above: Result Comment: Elec tronically Signed By: HERRERA PRIETO, Vianey Crawford\.br\Date and Time Signed: 06/12/23 13:23 EDT\.br\Electronically Co-Signed By: Megan Brunson.br\Date and Time Co-Signed: 06/12/23 13:20 EDT Lab Reportson 05-23-2023 Lab Reports [id number] D:127 [facility] Ambulatory Visit Summaryon 0 05-03-2023 Ambulatory Visit Summary VIANEY LACYE :1960 Visit Date:05/03/2023 Ambulatory Visit Instructions Your Diagnosis Hypogonadism male Your Care Team Attending Physician - Tres PRIETO, Taylor Hatfield Primary Care Physician - Cisco PRIETO, Ilda This Is Your Medications List amantadine (amantadine [...] 10:00 AM EDT [facility] CNOV Office Visit (SPMESH ) VIANEY LACEY ([id number]) 1960 M Date Time Provider Department 04/26/23 [...] Cervical disc disease CVA (cerebral vascular accident) ([facility]) due to head trauma Dysarthria Eczema Hypothyroidism [...] palpable masses (more content not included)... Normal [facility] Lab Reportson 01-24-2023 Lab Reports [id number] D:127 Normal [facility] TESTOSTERONE, TOTALon 2022 Testosterone [Mass/Vol] 347 ng/dL Normal 264-916 [facility] Comment on above: Result Comment: Adul t male reference interval is based on a population of healthy nonobese males (BMI <30) between 19 and 39 years old. Brad et.al. JCEM 2017,102;5258-5511. PMID: [id number]. Performed By: #### T ESTTOT #### [facility] [address] [place] [address] Dr. Reuben Morrison Pre-Certification Formon Pre-Certification Form [id number] :127 [facility] Pre-Certification Form [id number] D:127 [facility] Ambulatory Visit Summaryon 0 12-02-2022 Ambulatory Visit Summary VIANEY LACEY :1960 Visit Date:12/02/2022 Ambulatory Visit Instructions Your Diagnosis BPH with urinary obstruction Hypogonadism male Tests Performed Urnls Dip Stick Auto w/o Microscopy POC 96741 Your Care Team Attending Physician - HERRERA PRIETO, Vianey Crawford Primary Care Physician - Ilda Hendrickson MD [...] with HERRERA PRIETO, DARA Doty When: Where: [address] [place] [address]- Medications What How Much When Instructions Unchanged [...] Urnls Dip Stick Auto w/o Microscopy POC 59163 (12/02/2022) Bilirubin Urine Dipstick - Negative Blood Urine Dipstick - Negative Glucose Urine Dipstick - Negative Ketones Urine Dipstick - Negative Leukocytes Urine Dipstick - Negative Nitrite Urine Dipstick - Negative Protein Urine Dipstick - Negative Specific [place] Urine Dipstick - >=1.030 Urine Appearance Urine [...] post-void bladder (more content not included)... [facility] Patient Educationon 12-03-19 23 Patient Education Urology Benign Prostatic Hyperplasia Benign [...] Follow these instructions at home: ? Take dkao-aeh-nsbzbiu and prescription medicines only as told by [...] You d (more content not included)... [facility] Urology Office/Clinic Noteon 12-02-2022 Urology Office/Clinic [...] Contact Information HERRERA PRIETO, Vianey Crawford, URL [address] [place] [address]- Additional Instructions: 6 months w/ testosterone Patient Education Benign Prostatic Hyperplasia IMirian, personally scribed for Dr. Mendoza on 12/02/2022 [...] qWeek Allergie (more content not included)... [facility] Comment on above: Result Comment: Elec tronically Signed By: Vianey MENDOZA MD\.br\Date and Time Signed: 12/02/22 09:04 EST\.br\Electronically Co-Signed By: Mirian Shepard.br\Date and Time Co-Signed: 12/02/22 09:01 EST Lab Reportson 11-29-2022 Lab Reports [id number] D:127 [facility] XR TSPINE 3 VIEWSon 11-18-19 XR [...] ALFREDITO LOAIZA Date: 2022-11-18 16:11 Normal [facility] TESTOSTERONE, TOTALon 2022 Testosterone [Mass/Vol] 993 ng/dL Critically high 264-916 [facility] Comment on above: Result Comment: Adul t male reference interval is based on a population of healthy nonobese males (BMI <30) between 19 and 39 years old. stephania Salinas.al. JCEM 2017,102;4736-4516. PMID: [id number]. Performed By: #### T ESTTOT #### [facility] [address] [address] [address] Reuben Morrison Ambulatory Visit Summaryon 0 [...] Appointments Monday. 2022 10:00 AM EST With: Tres PRIETO, Taylor Hatfield Where: [facility] CBC AUTO DIFFon 06-15-2022 BASO # 0.0 103/ul Normal 0.0-0.1 [facility] Comment on above: Performed By: #### C BC #### [facility] [address] [place] [address] Dr. Reuben Morrison Basophils/100 WBC (Bld) 0.4 % Normal 0.2-2.0 [facility] Comment on above: Performed By: #### C BC #### [facility] [address] [address] [address] Reuben Morrison EO # 0.1 103/ul Normal 0.0-0.7 [facility] Comment on above: Performed By: #### C BC #### [facility] [address] [place] [address] Dr. Reuben Morrison Eosinophils/100 WBC (Bld) 1.3 % Normal 0.9-7.0 [facility] Comment on above: Performed By: #### C BC #### [facility] [address] [place] [address] Dr. Reuben Morrison Erythrocyte distribution width (RBC) [Ratio] 14.3 % Normal 11.0-15.0 [facility] Comment on above: Performed By: #### C BC #### [facility] [address] [place] [address] Dr. Reuben Morrison Hematocrit (Bld) [Volume fraction] 48.9 % Normal 42.0-54.0 [facility] Comment on above: Performed By: #### C BC #### [facility] [address] [place] [address] Dr. Reuben Morrison Hemoglobin (Bld) [Mass/Vol] 16.6 g/dL Normal 14.0-18.0 [facility] Comment on above: Performed By: #### C BC #### [facility] [address] [place] [address] Dr. Reuben Morrison IG # 0.01 10e3/ul Normal 0.00-0.03 [facility] Comment on above: Performed By: #### C BC #### [facility] [address] [place] [address] Dr. Reuben Morrison IG % 0.2 % Normal 0.0-0.5 [facility] Comment on above: Performed By: #### C BC #### [facility] [address] [place] [address] Dr. Reuben Morrison LYMPH # 1.1 103/ul Critically low 1.2-3.8 [facility] Comment on above: Performed By: #### C BC #### [facility] [address] [place] [address] Dr. Reuben Morrison Lymphocytes/100 WBC (Bld) 24.3 % Normal 20.5-60.0 [facility] Comment on above: Performed By: #### C BC #### [facility] [address] [place] [address] Dr. Reuben Morrison MANUAL DIFF REQ NO Normal [facility] Comment on above: Performed By: #### C BC #### [facility] [address] [place] [address] Dr. Reuben Morrison MCH (RBC) [Entitic mass] 29.5 pg Normal 25.9-34.0 [facility] Comment on above: Performed By: #### C BC #### [facility] [address] [place] [address] Dr. Reuben Morrison MCHC (RBC) [Mass/Vol] 33.9 g/dL Normal 29.9-35.2 [facility] Comment on above: Performed By: #### C BC #### [facility] [address] [place] [address] Dr. Reuben Morrison MCV (RBC) [Entitic vol] 86.9 fL Normal 80.0-94.0 [facility] Comment on above: Performed By: #### C BC #### [facility] [address] [place] [address] Dr. Reuben Morrison MONO # 0.5 103/ul Normal 0.3-0.8 [facility] Comment on above: Performed By: #### C BC #### [facility] [address] [place] [address] Dr. Reuben Morrison Monocytes/100 WBC (Bld) 9.6 % Normal 1.7-12.0 [facility] Comment on above: Performed By: #### C BC #### [facility] [address] [place] [address] Dr. Reuben Morrison NEUT # 3.0 103/ul Normal 1.4-6.5 [facility] Comment on above: Performed By: #### C BC #### [facility] [address] [place] [address] Dr. Reuben Morrison Neutrophils/100 WBC (Bld) 64.2 % Normal 43.0-75.0 [facility] Comment on above: Performed By: #### C BC #### [facility] [address] [address] [address] Reuben Morrison Platelet mean volume (Bld) [Entitic vol] 9.7 fL Normal 9.5-13.5 [facility] Comment on above: Performed By: #### C BC #### [facility] [id number] Reuben Morrison PLT 130 103/ul Critically low 150-450 [facility] Comment on above: Result Comment: plts . appear slightly decreased Performed By: #### C BC #### [facility] [address] [address] [address] Reuben Morrison RBC 5.63 106/ul Normal 4.70-6.10 [facility] Comment on above: Performed By: #### C BC #### [facility] [address] [address] [address] Reuben Morrison WBC 4.7 103/ul Normal 4.0-11.0 [facility] Comment on above: Performed By: #### C BC #### [facility] [address] [address] [address] Reuben Morrison TESTOSTERONE, TOTALon 2021 Testosterone [Mass/Vol] 404 ng/dL Normal 264-916 [facility] Comment on above: Result Comment: Adul t male reference interval is based on a population of healthy nonobese males (BMI <30) between 19 and 39 years old. Brad, et.al. JCEM 2017,102;0073-6642. PMID: [id number]. Performed By: #### T ESTTOT #### [facility] [address] [place] [address] Dr. Reuben Morrison CBC AUTO DIFFon 04-27-2022 BASO # 0.0 103/ul Normal 0.0-0.1 [facility] Comment on above: Performed By: #### T ESTTOT #### [facility] [id number] Reuben Morrison Basophils/100 WBC (Bld) 1.0 % Normal 0.2-2.0 [facility] Comment on above: Performed By: #### T ESTTOT #### [facility] [address] [place] [address] Dr. Reuben Morrison EO # 0.1 103/ul Normal 0.0-0.7 [facility] Comment on above: Performed By: #### T ESTTOT #### [facility] [address] [place] [address] Dr. Reuben Morrison Eosinophils/100 WBC (Bld) 1.8 % Normal 0.9-7.0 [facility] Comment on above: Performed By: #### T ESTTOT #### [facility] [address] [place] [address] Dr. Reuben Morrison Erythrocyte distribution width (RBC) [Ratio] 14.0 % Normal 11.0-15.0 [facility] Comment on above: Performed By: #### T ESTTOT #### [facility] [address] [place] [address] Dr. Reuben Morrison Hematocrit (Bld) [Volume fraction] 47.3 % Normal 42.0-54.0 [facility] Comment on above: Performed By: #### T ESTTOT #### [facility] [address] [place] [address] Dr. Reuben Morrison Hemoglobin (Bld) [Mass/Vol] 16.2 g/dL Normal 14.0-18.0 [facility] Comment on above: Performed By: #### T ESTTOT #### [facility] [address] [place] [address] Dr. Reuben Morrison IG # 0.01 10e3/ul Normal 0.00-0.03 [facility] Comment on above: Performed By: #### T ESTTOT #### [facility] [address] [place] [address] Dr. Reuben Morrison IG % 0.3 % Normal 0.0-0.5 [facility] Comment on above: Performed By: #### T ESTTOT #### [facility] [address] [place] [address] Dr. Reuben Morrison LYMPH # 1.1 103/ul Critically low 1.2-3.8 [facility] Comment on above: Performed By: #### T ESTTOT #### [facility] [address] [address] [address] Reuben Morrison Lymphocytes/100 WBC (Bld) 26.6 % Normal 20.5-60.0 [facility] Comment on above: Performed By: #### T ESTTOT #### [facility] [address] [address] [address] Reuben Morrison MANUAL DIFF REQ NO Normal [facility] Comment on above: Performed By: #### T ESTTOT #### [facility] [address] [address] [address] Reuben Morrison MCH (RBC) [Entitic mass] 29.5 pg Normal 25.9-34.0 [facility] Comment on above: Performed By: #### T ESTTOT #### [facility] [address] [place] [address] Dr. Reuben Morrison MCHC (RBC) [Mass/Vol] 34.2 g/dL Normal 29.9-35.2 [facility] Comment on above: Performed By: #### T ESTTOT #### [facility] [address] [address] [address] Reuben Morrison MCV (RBC) [Entitic vol] 86.2 fL Normal 80.0-94.0 [facility] Comment on above: Performed By: #### T ESTTOT #### [facility] [address] [address] [address] Reuben Morrison MONO # 0.4 103/ul Normal 0.3-0.8 [facility] Comment on above: Performed By: #### T ESTTOT #### [facility] [address] [address] [address] Reuben Morrison Monocytes/100 WBC (Bld) 9.0 % Normal 1.7-12.0 [facility] Comment on above: Performed By: #### T ESTTOT #### [facility] [address] [address] [address] Reuben Morrison NEUT # 2.5 103/ul Normal 1.4-6.5 [facility] Comment on above: Performed By: #### T ESTTOT #### [facility] [address] [address] [address] Reuben Morrison Neutrophils/100 WBC (Bld) 61.3 % Normal 43.0-75.0 [facility] Comment on above: Performed By: #### T ESTTOT #### [facility] [address] [address] [address] Reuben Morrison Platelet mean volume (Bld) [Entitic vol] 9.6 fL Normal 9.5-13.5 [facility] Comment on above: Performed By: #### T ESTTOT #### [facility] [address] [address] [address] Reuben Morrison PLT 128 103/ul Critically low 150-450 [facility] Comment on above: Performed By: #### T ESTTOT #### [facility] [address] [address] [address] Reuben Morrison RBC 5.49 106/ul Normal 4.70-6.10 [facility] Comment on above: Performed By: #### T ESTTOT #### [facility] [address] [address] [address] Reuben Morrison WBC 4.0 103/ul Normal 4.0-11.0 [facility] Comment on above: Performed By: #### T ESTTOT #### [facility] [address] [address] [address] Reuben Morrison INSULINon 03-08-2022 Insulin 4.3 uIU/mL Normal 2.6-24.9 [facility] Comment on above: Performed By: #### T ESTTOT #### [facility] [address] [address] [address] Reuben Morrison TESTOSTERONE, TOTALon 2021 Testosterone [Mass/Vol] ng/dL Critically high 264-916 [facility] Comment on above: Result Comment: Adul t male reference interval is based on a population of healthy nonobese males (BMI <30) between 19 and 39 years old. Brad et.al. JCEM 2017,102;2000-3939. PMID: [id number]. Performed By: #### T ESTTOT #### [facility] [address] [place] [address] Dr. Reuben Morrison CBC AUTO DIFFon 03-07-2022 BASO # 0.1 103/ul Normal 0.0-0.1 [facility] Comment on above: Performed By: #### C BC #### [facility] [address] [place] [address] Dr. Reuben Morrison Basophils/100 WBC (Bld) 1.4 % Normal 0.2-2.0 [facility] Comment on above: Performed By: #### C BC #### [facility] [address] [place] [address] Dr. Reuben Morrison EO # 0.1 103/ul Normal 0.0-0.7 [facility] Comment on above: Performed By: #### C BC #### [facility] [address] [place] [address] Dr. Reuben Morrison Eosinophils/100 WBC (Bld) 1.4 % Normal 0.9-7.0 [facility] Comment on above: Performed By: #### C BC #### [facility] [address] [place] [address] Dr. Reuben Morrison Erythrocyte distribution width (RBC) [Ratio] 14.7 % Normal 11.0-15.0 [facility] Comment on above: Performed By: #### C BC #### [facility] [address] [place] [address] Dr. Reuben Morrison Hematocrit (Bld) [Volume fraction] 49.8 % Normal 42.0-54.0 [facility] Comment on above: Performed By: #### C BC #### [facility] [address] [place] [address] Dr. Reuben Morrison Hemoglobin (Bld) [Mass/Vol] 16.4 g/dL Normal 14.0-18.0 [facility] Comment on above: Performed By: #### C BC #### [facility] [address] [place] [address] Dr. Reuben Morrison IG # 0.01 10e3/ul Normal 0.00-0.03 [facility] Comment on above: Performed By: #### C BC #### [facility] [address] [place] [address] Dr. Reuben Morrison IG % 0.3 % Normal 0.0-0.5 [facility] Comment on above: Performed By: #### C BC #### [facility] [address] [place] [address] Dr. Reuben Morrison LYMPH # 0.9 103/ul Critically low 1.2-3.8 [facility] Comment on above: Performed By: #### C BC #### [facility] [address] [place] [address] Dr. Reuben Morrison Lymphocytes/100 WBC (Bld) 24.7 % Normal 20.5-60.0 [facility] Comment on above: Performed By: #### C BC #### [facility] [address] [place] [address] Dr. Reuben Morrison MANUAL DIFF REQ NO Normal [facility] Comment on above: Performed By: #### C BC #### [facility] [address] [place] [address] Dr. Reuben Morrison MCH (RBC) [Entitic mass] 28.9 pg Normal 25.9-34.0 [facility] Comment on above: Performed By: #### C BC #### [facility] [address] [place] [address] Dr. Reuben Morrison MCHC (RBC) [Mass/Vol] 32.9 g/dL Normal 29.9-35.2 [facility] Comment on above: Performed By: #### C BC #### [facility] [address] [place] [address] Dr. Reuben Morrison MCV (RBC) [Entitic vol] 87.7 fL Normal 80.0-94.0 [facility] Comment on above: Performed By: #### C BC #### [facility] [address] [place] [address] Dr. Reuben Mrorison MONO # 0.4 103/ul Normal 0.3-0.8 [facility] Comment on above: Performed By: #### C BC #### [facility] [address] [address] [address] Reuben Morrison Monocytes/100 WBC (Bld) 9.5 % Normal 1.7-12.0 [facility] Comment on above: Performed By: #### C BC #### [facility] [address] [address] [address] Rueben Morrison NEUT # 2.3 103/ul Normal 1.4-6.5 [facility] Comment on above: Performed By: #### C BC #### [facility] [address] [place] [address] Dr. Reuben Morrison Neutrophils/100 WBC (Bld) 62.7 % Normal 43.0-75.0 [facility] Comment on above: Performed By: #### C BC #### [facility] [address] [place] [address] Dr. Reuben Morrison Platelet mean volume (Bld) [Entitic vol] 9.8 fL Normal 9.5-13.5 [facility] Comment on above: Performed By: #### C BC #### [facility] [address] [place] [address] Dr. Reuben Morrison PLT 149 103/ul Critically low 150-450 [facility] Comment on above: Performed By: #### C BC #### [facility] [address] [place] [address] Dr. Reuben Morrison RBC 5.68 106/ul Normal 4.70-6.10 [facility] Comment on above: Performed By: #### C BC #### [facility] [address] [place] [address] Dr. Reuben Morrison WBC 3.7 103/ul Critically low 4.0-11.0 [facility] Comment on above: Performed By: #### C BC #### [facility] [address] [place] [address] Dr. Reuben Morrison FREE THYROXINE INDEX T7on FTI 2.50 Normal 1.30-4.50 [facility] Comment on above: Performed By: #### C MP, T7, TSH, LIPID #### [facility] [address] [address] [address] Reuben Morrison T3U 39.0 % Normal 33.0-40.0 [facility] Comment on above: Performed By: #### C MP, T7, TSH, LIPID #### [facility] [address] [address] [address] Reuben Morrison T4 [Mass/Vol] 6.40 ug/dL Normal 4.50-12.10 [facility] Comment on above: Performed By: #### C MP, T7, TSH, LIPID #### [facility] [address] [address] [address] Reuben Morrison GLYCOHEMOGLOBIN A1Con 2021 ADA RECOMMENDATION SEE BELOW Normal [facility] Comment on above: Result Comment: ADA RECOMMENDED LIMIT 4.0 - 6.0 ADA THERAPEUTIC TARGET < 7.0 ACTION SUGGESTED > 7.0 Performed By: #### T ESTTOT #### [facility] [address] [address] [address] Reuben Morrison Glucose [Mass/Vol] 105 mg/dL Normal [facility] Comment on above: Performed By: #### T ESTTOT #### [facility] [address] [address] [address] Reuben Morrison HbA1c (Bld) [Mass fraction] 5.3 % Normal 4.5-6.2 [facility] Comment on above: Performed By: #### T ESTTOT #### [facility] [address] [place] [address] Dr. Reuben Morrison IRONon 03-07-2022 Iron [Mass/Vol] 100.0 ug/dL Normal 65.0-175.0 [facility] Comment on above: Performed By: #### I BLAIR, PSASC, VITB12, VITAD #### [facility] [address] [address] [address] Reuben Morrison LIPID PROFILEon 03-07-2022 CHOL-HDL RATIO NORM SEE BELOW Normal [facility] Comment on above: Result Comment: 3.3 - 4.4 LOW RISK 4.4 - 7.1 AVERAGE RISK 7.1 - 11.0 MODERATE RISK >11.0 HIGH RISK Performed By: #### C MP, T7, TSH, LIPID #### [facility] [address] [place] [address] Dr. Reuben Morrison Cholesterol [Mass/Vol] 157 mg/dL Normal <=200 [facility] Comment on above: Performed By: #### C MP, T7, TSH, LIPID #### [facility] [address] [place] [address] Dr. Reuben Morrison Cholesterol in HDL [Mass/Vol] 48 mg/dL Normal 40-60 [facility] Comment on above: Performed By: #### C MP, T7, TSH, LIPID #### [facility] [address] [place] [address] Dr. Reuben Morrison Cholesterol in LDL [Mass/Vol] 96.0 mg/dL Normal [facility] Comment on above: Performed By: #### C MP, T7, TSH, LIPID #### [facility] [address] [place] [address] Dr. Reuben Morrison Cholesterol.total/C holesterol in HDL [Mass ratio] 3.3 {ratio} Normal [facility] Comment on above: Performed By: #### C MP, T7, TSH, LIPID #### [facility] [address] [place] [address] Dr. Reuben Morrison HDL NORMAL > or = 60 mg/dl - LO W CARDIOVASCULAR RISK <40 mg/dl - HIGH CARDIOVASCULAR RISK Normal [facility] Comment on above: Performed By: #### C MP, T7, TSH, LIPID #### [facility] [address] [place] [address] Dr. Reuben Morrison LDL CALC NORMAL SEE BELOW Normal [facility] Comment on above: Result Comment: <100 mg/dl OPTIMAL 100 - 129 mg/dl NEAR OR ABOVE OPTIMAL 130 - 159 mg/dl BORDERLINE HIGH 160 - 189 mg/dl HIGH >190 mg/dl VERY HIGH Performed By: #### C MP, T7, TSH, LIPID #### [facility] [address] [place] [address] Dr. Reuben Morrison Triglyceride [Mass/Vol] 65 mg/dL Normal <=150 [facility] Comment on above: Performed By: #### C MP, T7, TSH, LIPID #### [facility] [address] [address] [address] Reuben Morrison VLDL CALC 13.0 mg/dL Normal [facility] Comment on above: Performed By: #### C MP, T7, TSH, LIPID #### [facility] [address] [place] [address] Dr. Reuben Morrison PROF 14(COMP METB)on 022 Albumin [Mass/Vol] 3.7 g/dL Normal 3.4-5.0 [facility] Comment on above: Performed By: #### C MP, T7, TSH, LIPID #### [facility] [address] [place] [address] Dr. Reuben Morrison Albumin/Globulin [Mass ratio] 1.3 {ratio} Normal [facility] Comment on above: Performed By: #### C MP, T7, TSH, LIPID #### [facility] [address] [place] [address] Dr. Reuben Morrison ALP [Catalytic activity/Vol] 53 U/L Normal 46-116 [facility] Comment on above: Performed By: #### C MP, T7, TSH, LIPID #### [facility] [address] [place] [address] Dr. Reuben Morrison ALT [Catalytic activity/Vol] 37 U/L Normal 16-63 [facility] Comment on above: Performed By: #### C MP, T7, TSH, LIPID #### [facility] [address] [place] [address] Dr. Reuben Morrison Anion gap [Moles/Vol] 11.0 mmol/L Normal [facility] Comment on above: Performed By: #### C MP, T7, TSH, LIPID #### [facility] [address] [place] [address] Dr. Reuben Morrison AST [Catalytic activity/Vol] 28 U/L Normal 15-37 [facility] Comment on above: Performed By: #### C MP, T7, TSH, LIPID #### [facility] [address] [address] [address] Reuben Morrison Bilirubin [Mass/Vol] 0.9 mg/dL Normal 0.2-1.0 [facility] Comment on above: Performed By: #### C MP, T7, TSH, LIPID #### [facility] [address] [place] [address] Dr. Reuben Morrison Calcium [Mass/Vol] 8.9 mg/dL Normal 8.5-10.1 [facility] Comment on above: Performed By: #### C MP, T7, TSH, LIPID #### [facility] [address] [place] [address] Dr. Reuben Morrison Chloride [Moles/Vol] 106 mmol/L Normal 98-107 [facility] Comment on above: Performed By: #### C MP, T7, TSH, LIPID #### [facility] [address] [place] [address] Dr. Reuben Morrison CO2 [Moles/Vol] 28.2 mmol/L Normal 21.0-32.0 [facility] Comment on above: Performed By: #### C MP, T7, TSH, LIPID #### [facility] [address] [place] [address] Dr. Reuben Morrison Creatinine [Mass/Vol] 1.55 mg/dL Critically high 0.70-1.30 [facility] Comment on above: Performed By: #### C MP, T7, TSH, LIPID #### [facility] [address] [place] [address] Dr. Reuben Morrison EGFR-AF ANGOLAN 55 mL/min/1.73m2 Critically low >=60 [facility] Comment on above: Performed By: #### C MP, T7, TSH, LIPID #### [facility] [address] [place] [address] Dr. Reuben Morrison EGFR-NON AF ANGOLAN 46 mL/min/1.73m2 Critically low >=60 [facility] Comment on above: Performed By: #### C MP, T7, TSH, LIPID #### [facility] [address] [place] [address] Dr. Reuben Morrison Globulin (S) [Mass/Vol] 2.9 g/dL Normal [facility] Comment on above: Performed By: #### C MP, T7, TSH, LIPID #### [facility] [address] [address] [address] Reuben Morrison Glucose [Mass/Vol] 88 mg/dL Normal 74-106 [facility] Comment on above: Performed By: #### C MP, T7, TSH, LIPID #### [facility] [address] [address] [address] Reuben Morrison Potassium [Moles/Vol] 4.2 mmol/L Normal 3.5-5.1 [facility] Comment on above: Performed By: #### C MP, T7, TSH, LIPID #### [facility] [address] [place] [address] Dr. Reuben Morrison Protein [Mass/Vol] 6.6 g/dL Normal 6.4-8.2 [facility] Comment on above: Performed By: #### C MP, T7, TSH, LIPID #### [facility] [address] [address] [address] Reuben Morrison Sodium [Moles/Vol] 141 mmol/L Normal 136-145 [facility] Comment on above: Performed By: #### C MP, T7, TSH, LIPID #### [facility] [address] [place] [address] Dr. Reuben Morrison Urea nitrogen [Mass/Vol] 13.0 mg/dL Normal 7.0-18.0 [facility] Comment on above: Performed By: #### C MP, T7, TSH, LIPID #### [facility] [address] [place] [address] Dr. Reuben Morrison Urea nitrogen/Creatinine [Mass ratio] 8.4 mg/mg Normal [facility] Comment on above: Performed By: #### C MP, T7, TSH, LIPID #### [facility] [address] [address] [address] Reuben Morrison TSHon 03-07-2022 TSH 0.091 uIU/mL Critically low 0.358-3.740 [facility] Comment on above: Performed By: #### C MP, T7, TSH, LIPID #### [facility] [address] [address] [address] Reuben Morrison TSH RANGE SEE BELOW Normal [facility] Comment on above: Result Comment: <0.3 4 UIU/ml HYPERTHYROID 0.34-5.60 UIU/ml EUTHYROID >5.60 UIU/ml HYPOTHYROID Performed By: #### C MP, T7, TSH, LIPID #### [facility] [address] [address] [address] Reuben Morrison VITAMIN B12on 03-07-2022 Cobalamin (Vitamin B12) [Mass/Vol] 3126.0 pg/mL Critically high 193.0-986.0 [facility] Comment on above: Performed By: #### T ESTTOT #### [facility] [address] [place] [address] Dr. Reuben Morrison VITAMIN D 25 OHon 03-07-2022 VIT D 25-OH 90.4 ng/mL Normal [facility] Comment on above: Performed By: #### T ESTTOT #### [facility] [address] [place] [address] Dr. Reuben Morrison VIT D RANGES SEE BELOW Normal [facility] Comment on above: Result Comment: <20 ng/mL Vit D deficient 20 - <30 ng/mL Vit D insufficient 30 - 100 ng/mL Vit D sufficient >100 ng/mL Potential Toxicity Performed By: #### T ESTTOT #### [facility] [address] [place] [address] Dr. Reuben Morrison XR SHOULDER RICHARD 2V [...] by: ERIN HANSEN Date: 2022-03-07 16:26 Normal [facility] Vital Signs Date Time Vital Sign Value Performing Clinician Facility 10-16-2023 13:03-0500 Blood Pressure Location [facility] 10-16-2023 13:03-0500 Diastolic blood pressure 82 mm[Hg] [facility] 10-16-2023 13:03-0500 Heart rate 75 /min [facility] 10-16-2023 13:03-0500 Respiratory rate 16 /min [facility] 10-16-2023 13:03-0500 Systolic blood pressure 131 mm[Hg] [facility] 07-27-2023 10:00-0400 Body height 168.91 cm Sandoval Antonia Other [facility] Other 07-27-2023 10:00-0400 Body mass index (BMI) [Ratio] 28.55 kg/m2 Sandoval Antonia Other [facility] Other 07-27-2023 10:00-0400 Body temperature 96.2 [degF] Sandoval Antonia Other [facility] Other 07-27-2023 10:00-0400 Body weight 81.47 kg Sanodval Antonia Other [facility] Other 07-27-2023 10:00-0400 Diastolic blood pressure 87 mm[Hg] Sandoval Antonia Other [facility] Other 07-27-2023 10:00-0400 Respiratory rate 16 /min Sandoval Antonia Other [facility] Other 07-27-2023 10:00-0400 SaO2% (BldA) [Mass fraction] 94 % Sandoval Antonia Other [facility] Other 07-27-2023 10:00-0400 Systolic blood pressure 130 mm[Hg] Sandoval Antonia Other [facility] [employer] Other 06-12-2023 12:25-0400 Blood Pressure Location Vianey MENDOZA [facility] 06-12-2023 12:25-0400 Diastolic blood pressure 74 mm[Hg] Vianey MENDOZA [facility] 06-12-2023 12:25-0400 Heart rate 68 /min Vianey MENDOZA [facility] 06-12-2023 12:25-0400 Respiratory rate 16 /min Vianey MENDOZA [facility] 06-12-2023 12:25-0400 Systolic blood pressure 128 mm[Hg] Vianey MENDOZA [facility] 04-26-2023 11:15-0400 Body height 168.4 cm Shawanda Hernandez PA-C Work Phone: [facility] 04-26-2023 11:15-0400 Body temperature 98.01 [degF] Shawanda Hernandez PA-C Work Phone: [facility] 04-26-2023 11:15-0400 Body weight 86.95 kg Shawanda Hernandez PA-C Work Phone: [facility] 04-26-2023 11:15-0400 Diastolic blood pressure 94 mm[Hg] Shawanda Hernandez PA-C Work Phone: [facility] 04-26-2023 11:15-0400 Heart rate 74 /min Shawanda OCHOA-C Work Phone: [facility] 04-26-2023 11:15-0400 SaO2% (BldA) [Mass fraction] 97 % Shawanda Hernandez PA-C Work Phone: [facility] 04-26-2023 11:15-0400 Systolic blood pressure 147 mm[Hg] Shawanda OCHOA-C Work Phone: [facility] 12-02-2022 08:12-0500 Blood Pressure Location Vianey M[facility] 12-02-2022 08:12-0500 Diastolic blood pressure 84 mm[Hg] Vianey MENDOZA [facility] 12-02-2022 08:12-0500 Heart rate 70 /min Vianey MENDOZA [facility] 12-02-2022 08:12-0500 Respiratory rate 16 /min Vianey MENDOZA [facility] 12-02-2022 08:12-0500 Systolic blood pressure 137 mm[Hg] Vianey MENDOZA [facility] 07-20-2022 14:11-0400 Body mass index (BMI) [Ratio] 28.98 kg/m2 Jovita Virk MD Work Phone: [facility] 07-20-2022 14:11-0400 Body temperature 98.01 [degF] Jovita Virk MD Work Phone: [employer] 07-20-2022 14:11-0400 Body weight 83.92 kg Jovita Virk MD Work Phone: [employer] 07-20-2022 14:11-0400 Diastolic blood pressure 86 mm[Hg] Jovita Virk MD Work Phone: [facility] [employer] 07-20-2022 14:11-0400 Heart rate 98 /min Jovita Virk MD Work Phone: [employer] 07-20-2022 14:11-0400 Respiratory rate 14 /min Jovita Virk MD Work Phone: [employer] 07-20-2022 14:11-0400 SaO2% (BldA) [Mass fraction] 100 % Jovita Virk MD Work Phone: [facility] 07-20-2022 14:11-0400 Systolic blood pressure 138 mm[Hg] Jovita Virk MD Work Phone: [employer] Encounters Encounter Date Encounter Type Care Provider Facility Start: 10-21-2024 ambulatory Vianey Velazquez ty:REHANA [place] Start: 11-27-2023 ambulatory Vianey Velazquez ty:[facility] Start: 10-30-2023 End: 10-30-2023 ambulatory [facility] Start: 10-16-2023 End: 10-17-2023 ambulatory Vianey MENDOZA Facility:[facility] Start: 10-16-2023 End: 10-16-2023 Patient encounter procedure Vianey MENDOZA [facility] Start: 09-08-2023 End: 09-08-2023 ambulatory BAKARI GARCIA [facility] Start: 08-10-2023 End: 08-10-2023 ambulatory [facility] Start: 07-27-2023 End: 07-27-2023 ambulatory Sandoval Antonia Other [facility] Other Start: 07-27-2023 Office outpatient ne w 45 minutes Sandoval Antonia [facility] Start: 07-11-2023 ambulatory [facility] Start: 07-11-2023 End: 07-11-2023 ambulatory [facility] Start: 07-10-2023 ambulatory Vianey MENDOZA Facili ty:[facility] Start: 06-28-2023 End: 06-28-2023 ambulatory [facility] Start: 06-12-2023 End: 06-13-2023 ambulatory Vianey MENDOZA Facility:[facility] Start: 06-12-2023 End: 06-12-2023 Patient encounter procedure Vianey MENDOZA [facility] Start: 05-30-2023 ambulatory Taylor Joshua Facility:[facility] Start: 05-03-2023 End: 05-04-2023 ambulatory Taylor Joshua Facility:[facility] Start: 05-03-2023 End: 05-03-2023 Patient encounter procedure Taylor Joshua [facility] Start: 04-26-2023 End: 04-26-2023 ambulatory ILDA HENDRICKSON Facility:[facility] Start: 04-26-2023 End: 04-26-2023 Patient encounter procedure Shawanda Hernandez PA-C Work Phone: [facility] Comment on above: Height loss (Primary Dx) Start: 04-05-2023 End: 04-06-2023 ambulatory Taylor MMark Joshua Facility:[facility] Start: 03-08-2023 End: 03-09-2023 ambulatory KYLE RODRIGUEZ Facility:[facility] Start: 03-08-2023 End: 03-08-2023 Patient encounter procedure KYLE FIELDSRY [facility] Start: 02-07-2023 End: 02-08-2023 ambulatory Vianey R HERRERA Facility:[facility] Start: 01-20-2023 End: 01-21-[address] ILDA HENDRICKSON . Facility: Start: 12-02-2022 End: 12-03-2022 ambulatory Vianey R HERRERA Facility:[facility] Start: 12-02-2022 End: 12-02-2022 Patient encounter procedure Vianey R HERRERA [facility] Start: 11-18-2022 End: 11-19-[address] ILDA HENDRICKSON . Facility: Start: 11-08-2022 End: 11-09-2022 ambulatory TAYLOR JOSHUA . Facility: Start: 11-01-2022 End: 11-02-2022 ambulatory KYLE RODRIGUEZ Facility:[facility] Start: 11-01-2022 End: 11-01-2022 Patient encounter procedure KYLE RODRIGUEZ [facility] [email or web address] Start: 10-05-2022 End: 10-05-2022 Patient encounter procedure KYLE RODRIGUEZ [facility] Start: 09-07-2022 End: 09-07-2022 Patient encounter procedure Taylor Josuha [facility] Start: 08-28-2022 Letter encounter Jovita Virk MD Work Phone: [facility] Start: 08-17-2022 End: 08-17-2022 Patient encounter procedure Taylor Joshua [facility] Start: 08-12-2022 Telephone encounter Aarti vences MA, [facility], [employer]LET [employer] Work Phone: [facility] Start: 07-21-2022 End: 07-22-[address] ILDA HENDRICKSON . 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); Cognitive changes; Body mass index (BMI) 28.0-28.9, adult Start: 07-11-2022 End: 07-11-2022 Patient encounter procedure Vianey MENDOZA [facility] Start: 06-15-2022 End: 06-16-[address] SAEED Flores Facility:[facility] Start: 06-13-2022 End: 06-13-2022 Patient encounter procedure Vianey MENDOZA [facility] Start: 04-27-2022 End: 04-28-[address] SAEED Flores Facility:[facility] Start: 04-07-2022 Refill Jovita Virk MD Work Phone: [facility] [place] [facility] Comment on above: Refill Start: 03-21-[address] ILDA HENDRICKSON . Facili ty:[facility] Start: 03-17-[address] ILDA HENDRICKSON . Facili ty:[facility] Start: 03-09-2022 Encounter for genera l adult medical examination without abnormal findings DR ILDA HENDRICKSON . [facility] Start: 03-07-2022 End: 03-08-2022 Encounter for general adult medical examination without abnormal findings DR ILDA HENDRICKSON . Facility:[facility] Start: 03-07-2022 End: 03-08-[address] ILDA Flores Facility:[facility] Start: 03-01-2022 End: 03-01-2022 Patient encounter procedure Saeed Cantu Jr. [facility] Start: 02-01-2022 End: 02-01-2022 Patient encounter procedure Saeed Cantu Jr. [facility] Start: 01-04-2022 End: 01-04-2022 Patient encounter procedure Saeed Cantu Jr. [facility] Procedures Date Procedure Procedure Detail Performing Clinician Start: 09-08-2023 Follow-up visit Follow-up BAKARI SANTOYO Start: 06-15-[address] FABIÁN HENDRICKSON . Comment on above: Performed By: #### T ESTTOT #### [facility] [address] [address] [address] Reuben Morrison Start: 03-07-[address] FABIÁN HENDRICKSON . Comment on above: Performed By: #### I BLAIR, PSASC, VITB12, VITAD #### [facility] [address] [place] [address] Dr. Reuben Morrison Start: 12-21-2016 Cystourethroscopy [facility] dilation of urethral stricture Saeed Cantu Jr. Arthroplasty of knee Saeed Cantu Jr. Comment on above: Left side Hernia repair Saeed vasquez Repair of musculoten dinous cuff of shoulder Saeed Cantu Jr. Plan of Treatment Date Care Activity Detail Author Start: 09-04-2031 Urine microalbumin profile DTAP,TDAP,TD (2 - Tdap) [facility] Start: 06-15-2027 PROSTATE CANCER SCREENING DISCUSSION PROSTATE CANCER SCREENING DISCUSSION [facility] Start: 05-26-2023 Influenza vaccination INFLUENZA (#1) [facility] Start: 09-25-2022 DEPRESSION ASSESSMENT DEPRESSION ASSESSMENT [facility] Start: 09-20-2022 COVID-19 Vaccine (5 - Booster for Pfizer series) COVID-19 Vaccine (5 - Booster for Pfizer series) [facility] Start: 09-20-2022 COVID-19 VACCINE (5 - Pfizer series) COVID-19 VACCINE (5 - Pfizer series) [facility] Start: 07-19-2022 End: 07-19-2022 Patient encounter procedure 07/19/2022 Office Visit Physical Medicine & Rehab/PM&R Jovita Virk MD [address] [place] [address] [facility] [place] [facility] Start: 06-25-2022 Influenza vaccination Influenza Vaccine (#1) [facility] Start: 05-31-2022 Shingles (RZV) Vaccine (2 of 2) Shingles (RZV) Vaccine (2 of 2) [facility] Start: 01-19-2022 COVID-19 Vaccine (4 - Booster for Pfizer series) COVID-19 Vaccine (4 - Booster for Pfizer series) [facility] Start: 11-15-2021 COVID-19 Vaccine (4 - Booster for Pfizer series) COVID-19 Vaccine (4 - Booster for Pfizer series) [facility] Start: 09-05-2021 Lipid panel Cholesterol [facility] Start: 12-04-2020 DIABETES SCREEN DIABETES SCREEN [facility] Start: 11-23-2014 Annual wellness visit Annual Wellness Visit (G0438) [facility] Start: 06-10-2012 Thyroid stimulating hormone measurement [facility]SH [facility] Start: 2009 Measurement of occult blood in single stool specimen FIT [facility] Start: 2009 Screening for malignant neoplasm of colon CRC Screening [facility] Start: 2009 Shingles (RZV) Vaccine (1 of 2) Shingles (RZV) Vaccine (1 of 2) [facility] Start: 02-22-2004 COLOGUARD (FIT-DNA) COLOGUARD (FIT-DNA) [facility] Start: 02-22-2004 Colonoscopy COLONOSCOPY [facility] Start: 02-22-2004 COLORECTAL CANCER SCREENING COLORECTAL CANCER SCREENING [facility] Start: 02-22-[address] COLONOGRAPHY [facility] Start: 02-22-2004 FECAL OCCULT BLOOD FECAL OCCULT BLOOD [facility] Start: 02-22-2004 SIGMOIDOSCOPY SIGMOIDOSCOPY [facility] Start: 1994 LIPID SCREEN LIPID SCREEN [facility] Start: 1977 ANNUAL PCP TEAM CHRONIC DISEASE VISIT ANNUAL PCP TEAM CHRONIC DISEASE VISIT [facility] Start: 1977 Hepatitis C screening [facility]atitis [facility] Antibody [facility] Start: 1977 HEPATITIS C SCREENING HEPATITIS C SCREENING [facility] Start: 1977 HIV SCREENING HIV SCREENING [facility] Start: 1977 SPIROMETRY SPIROMETRY [facility] Start: 1977 Tetanus + diphtheria + acellular pertussis vaccine (product) Tdap Booster [facility] Start: 1974 HIV screening HIV Test [facility] Start: 1965 PNEUMOCOCCAL (1 - PCV) PNEUMOCOCCAL (1 - PCV) [facility] Start: 1959 Screening for malignant neoplasm of colon Colonoscopy [facility] Immunizations Immunization Date Immunization Notes Care Provider Fa cili 08-29-2022 zoster vaccine recombinant Shawanda Hernandez PA-C Work Phone: [facility] 07-25-2022 Influenza, injectabl e, Madin Hanna Canine Kidney, preservative free, quadrivalent Jovita Virk MD Work Phone: [facility] 04-05-2022 zoster vaccine recombinant Jovita Virk MD Work Phone: [facility] 09-04-2021 diphtheria, tetanus toxoids and pertussis vaccine Jovita Virk MD Work Phone: [facility] 08-25-2021 SARS-CoV-2 (COVID-19 ) Ad26 vaccine, recombinant Saeed Cantu Jr. [facility] 08-10-2021 influenza, injectabl e, quadrivalent, preservative free Jovita Virk MD Work Phone: [facility] 08-10-2021 influenza virus vaccine, unspecified formulation Jovita Virk MD Work Phone: [facility] 06-25-2021 influenza virus vaccine, unspecified formulation Saeed Cantu Jr. [facility] 12-22-2020 Pfizer (12+ yrs) SARS-COV-2 (COVID-19) vaccine, mRNA, spike protein, LNP, pres. free, 30 mcg/0.3mL dose (NAU=394) Jovita Virk MD Work Phone: [facility] 11-30-2020 Pfizer (12+ yrs) SARS-COV-2 (COVID-19) vaccine, mRNA, spike protein, LNP, pres. free, 30 mcg/0.3mL dose (QBK=997) Jovita Virk MD Work Phone: [facility] 08-25-2020 influenza virus vaccine, unspecified formulation Saeed Cantu Jr. [facility] 06-30-2020 influenza, injectabl e, quadrivalent, preservative free Jovita Virk MD Work Phone: [facility] 12-25-2019 SARS-CoV-2 (COVID-19 ) mRNA BNT-162b2 vax Saeed Cantu Jr. [facility] 11-24-2019 SARS-CoV-2 (COVID-19 ) mRNA BNT-162b2 vax Saeed Cantu Jr. [facility] Payers Date Payer Category Payer Unknown [id number] 2022 Unknown [id number] 2017 Unknown [id number] 2017 Unknown [id number] 2013 Medicare [id number] 1959 Medicare [id number] 1959 Self-pay [id number] 1959 Unknown [id number] 2.16.84 0.1.719754.3.579.2.593 1959 Unknown [id number] 2.16.84 0.1.126456.3.579.2.593 1959 Unknown [id number] 2.16.84 0.1.564308.3.579.2.593 1959 Unknown [id number] 2.16.84 0.1.824633.3.579.2.593 1959 Unknown [id number] 2.16.84 0.1.049173.3.579.2.593 1959 Unknown [id number] 2.16.84 0.1.226539.3.579.2.593 1959 Unknown [id number] 2.16.84 0.1.200880.3.579.2.593 1959 Unknown [id number] 2.16.84 0.1.118014.3.579.2.593 1959 Unknown [id number] 2.16.84 0.1.964293.3.579.2.593 1959 Unknown [id number] 2.16.84 0.1.915921.3.579.2.593 1959 Unknown [id number] 2.16.84 0.1.428989.3.579.2.593 1959 Unknown [id number] 2.16.8 40.1.531145.3.579.2.727 1959 Unknown [id number] 2.16.8 40.1.258962.3.579.2.727 1959 Unknown [id number] 2.16.8 40.1.624663.3.579.2.727 1959 Unknown [id number] 2.16.8 40.1.385608.3.579.2.72 1959 Unknown [id number] 2.16.8 40.1.498034.3.579.2.72 1959 Unknown [id number] 2.16.8 40.1.999120.3.579.2.72 1959 Unknown [id number] 2.16.8 40.1.691609.3.579.2.72 1959 Unknown [id number] 2.16.8 40.1.315867.3.579.2.72 1959 Unknown [id number] 2.16.8 40.1.197606.3.579.2. 1959 Unknown [id number] 2.16.8 40.1.895450.3.579.2.727 1959 Unknown [id number] 2.16.8 40.1.536674.3.579.2.72 1959 Unknown [id number] 2.16.8 40.1.619869.3.579.2.72 Unknown [id number] 2.16.84 0.1.195765.3.579.2.593 Social History Date Type Detail Facility Start: 10-05-2021 End: 10-16-2023 Tobacco smoking status Never smoked tobacco (finding) [facility] Tobacco smoking status Never [facility] Start: 01-03-2019 End: 04-26-2023 Sex Assigned At Male [facility] Start: 08-24-2011 End: 08-02-2023 Tobacco use and exposure Smokeless tobacco non-user [facility] Start: 12-07-2017 End: 08-12-2022 Alcohol intake Not Asked [facility] Start: 1960 Sex Assigned At Not on file [facility] Start: 08-12-2022 History SDOH Social Connections Phone 1 [facility] Start: 08-12-2022 History SDOH Social Connections Get Together 2 [facility] Start: 08-12-2022 History SDOH Social Connections [facility] Start: 08-12-2022 [facility] Start: 04-26-2023 Alcohol intake Current drinke r of alcohol (finding) [facility] Start: 01-03-2019 End: 04-26-2023 History of Social function [facility] Start: 12-04-2017 Alcohol Comment social [facility] Functional Status Date Assessment Result Facility 10-16-2023 Functional Status N/A [facility] 06-12-2023 Functional Status N/A [facility] 12-02-2022 Functional Status N/A [facility] Clinical Notes 04-07-2022 to 10-30-2023 Note Date & Type Note Facility 10-30-2023 Note Patient here for H&P prior to afib ablation scheduled for 11/16/[address] Garcia. Denies chest pain, SOB, palpitations, lightheadedness/syncope, and bleeding on Eliquis. Review of Systems Constitutional: Positive for malaise/fatigue. All other systems reviewed and are negative. [facility] 10-16-2023 Hospital Discharge instructions Patient Education 10/16/2023 [...] provider. Document Revised: 01/20/2022 Document Reviewed: 01/20/2022 [employer] Patient Education 2022 [employer]. Follow Up Care 07/31/2023 10:30:59 With:HERRERA PRIETO, Vianey Crawford, URL Address: [facility] [address], [place] [address]- When:Within 1 Year(s) Comments:w/AARON [facility] 09-08-2023 Note [facility] Consult Note [...] function. He is also recently seen a full stack engineer. They are weaning of amantadine which was [...] route for 90 days. vitamin B complex 936-2-656-2-2 mg/mL injection Refill(s) 0 No current facility-administered [...] tender Musculoskeletal Ins (more content not included)... [facility] 08-10-2023 Note [facility] Cardiology Clinic Note Chief Complaint: Patient here [...] function. He is also recently seen a full stack engineer. They are weaning of amantadine which was [...] days., Disp: , Rfl: vitamin B complex 741-5-929-2-2 mg/mL injection, Refill(s) 0, Disp: , Rfl: [...] reversible ischemia. Ejection fraction is normal. Transesophageal Echocardiogram-[facility] Name: VIANEY LACEY Study Date: 07/11/2023 12:24 PM B/P: 104 mmHg/74 mmHg HR: Date of : 1960 Location: [facility] Height: 68 in. Age: 63 year(s) Patient Room : Weight: 189 lb. Gender: Male Patient Status: OutPt BSA: 2 m2 Indication: Atrial Fibrillation, Pre-Cardioversion Examination: JAMIN (Transesophageal Echo / CFI) Image Quality: Good Patient Consent: Informed, written consent was obtained for the procedure s p @ c 3 Exam Location: A JAMIN was performed in the [employer] without complications s p @ c 3 [...] A 12-lead EKG (more content not included)... [facility] 07-27-2023 Evaluation note Encounter Date Diagnosis Assessment [...] advised him to avoid NSAIDs or any rngc-ktm-ebcpd er supplements. This deanna with the importance [...] - G47.33) Continue follow-up with the specialist. [employer] Other 10-17-2023 History general Narrative - Reported* Type Description Date Medical History FATIGUE Medical History EDEMA Surgical History CARDIO VERSION 07/11/2023 Surgical History LEFT KNEE REPLACEMENT Surgical History C5-C6 PLATE AND SCREWS Surgical History DOUBLE HERNIA REPAIR Surgical History RIGHT SHOULDER SCOPE Surgical History COLONOSCOPY Surgical History CYSTO SCOPE Hospitalization History SEE ABOVE [employer] Other 10-17-2023 NotePatient: ODILON Lacey Procedure Information Date/Time: 07/11/23 1200 Procedure: Cardioversion Location: [facility] HOLDING ROOM / [facility] (Cath) Providers: George William MD Clinical information reviewed: Physical Exam Airway Mallampati: III TM distance: >3 FB Neck ROM: full Cardiovascular Rhythm: irregular Dental Pulmonary Breath sounds clear to auscultation Abdominal Abdomen: soft Anesthesia Plan ASA 3 (Conscious sedation) Anesthetic plan and risks discussed with patient. Use of blood products discussed with patient who. [facility] Cardiology Clinic Note Chief Complaint: Patient here to re-establish care for PAF. Was last seen in [address] Peck. Had echo and ECG yesterday. states they recently returned home from [place]. While they were there, he had intermittent SOB with very swollen ankles. 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 Feeling chest pressure. He is in the process of getting a cpap machine for NANCY. HPI: ODILON Lacey is a 63 y.o. male known to me from prior office visits and his - Nitza Addison who works at [employer]. He has a known h/o PAF in the past ([id number]) thought to be related to thyroid issues [...] ST-T wave changes Assessment: Paroxysmal atrial fibrillation, [id number] score of 2-3 Chest pain - unstable [...] referred to our elect (more content not included)...[facility] 06-12-2023 Hospital Discharge instructions Patient Education 06/12/2023 [...] therapy. Follow these instructions at home: Take adrs-pdb-qliswja and prescription medicines only as told by [...] provider. Document Revised: 05/13/2021 Document Reviewed: 05/13/2021 [employer] Patient Education 2022 [employer]. Follow Up Care 05/04/2023 10:34:04 With:Vianey MENDOZA MD, URL Address: [facility] [address] , [place] [address] [phone] When:Within 6 Month(s) Comments:w/Testosterone Level, PSA and CBC [facility] 08-02-2023 NoteHNO ID: [id number] Author: Shawanda Hernandez PA-C Service: ? Author Type: Physician Night Monitor Type: Progress Notes Filed: 04/26/2023 11:40 AM [...] Full Oblique Extension With (more content not included)...[facility] 04-26-2023 History of Present illness Narrative* [...] TIME: 11:15 AM [facility] Discharge instructions Patient Education 12/02/2022 08:49:09 [...] urethra. Follow these instructions at home: Take [id number] and prescription medicines only as told by [...] 09/11/2006 Document Revised: 08/06/2019 Document Reviewed: 10/16/2017 [employer] Patient Education 2020 [employer]. Follow Up Care 11/01/2022 10:29:54 With:HERRERA PRIETO, Vianey Crawford, URL Address: [address] [place] [address]- When: Unknown [facility] 11-18-2022 History of Present illness Narrative* Aarti Kelsey MA, CCC, BULLET MAKER - 08/12/2022 12:27 PM EST SPEECH LANGUAGE [...] stated should already be in the system. BULLET MAKER was speaking with patient's spouse via phone conversation attempting to troubleshoot and bypass the preliminary questionnaires. However, it was unsuccessful. BULLET MAKER sent patient's spouse a direct link to her cell phone to connect to video visit and the same issues arose. Patient was connected to Wifi and using an iPad in home setting. The iPad did not successfully pass the hardware test and patient/patient's spouse were never able to successfully log on. BULLET MAKER provided patient/patient's spouse the MyChart Support Team's contact information to reach out for further assistance with log on issues. BULLET MAKER will e-mail patient's spouse/patient information regarding memory strategies, etc to help in the home setting (patient's spouse reported patient tends to misplace belongings, such as keys, etc and could use a refresher on the strategies. Patient's spouse stated she will take a look at the strategies and go from there with scheduling anything further. BULLET MAKER provided patient/spouse with our direct line to [facility] Therapy dept if she has any further questions/concerns or needs to schedule. Patient left without being seen this date. documented in this [id number] Instructions* Patient Instructions* Jovita Virk MD - 07/20/2022 2:49 PM EDT -Get the sleep apnea addressed -Hold amantadine -Add memantine 5mg daily. -External referral for brain MRI. -Speech therapy for cognitive strategies. -R knee surgery. -F/up 1 year, sooner if needed. documented in this [id number] History of Present illness Narrative* Jovita Virk [...] 200 mg into the muscle once amonth. 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 Last available brain imaging [id number] showed ventriculomegaly that was deemed not hydrocephalus [...] Risk protocol implemented: No documented in this [id number] Telephone encounter Note* Telephone Encounter - Renetat Boyer - 04/07/2022 11:19 AM EDT Last visit with [facility] (Jovita Virk MD) was 02/23/2021 and next visit is 07/19/2022 Requested Prescriptions Pending Prescriptions Disp Refills amantadine (SYMMETREL) 100 MG capsule [Pharmacy Med Name: AMANTADINE 100 MG CAPSULE] 90 Capsule 0 Sig: TAKE 1 CAPSULE BY MOUTH EVERY DAY No PCP on file No PCP on file [id number] Miscellaneous Notes* Telephone Encounter - Renetta Boyer [...] Appointments Appointment Date:02/01/2022 10:00:00 AM Scheduled Provider: Location:[facility] Appointment Type:URO Nurse Visit Appointment Date:03/01/2022 09:00:00 AM Scheduled Provider:Saeed Cantu Jr., MD Location:[facility] Appointment Type:URO Office Visit Appointment Date:04/05/2022 11:15:00 AM Scheduled Provider:Saeed Cantu Jr., MD Location:[facility] Appointment Type:URO Office Visit [facility] evaluation + Plan note Future Appointments Appointment Date:03/01/2022 09:00:00 AM Scheduled Provider:Saeed Cantu Jr., MD Location:[facility] Appointment Type:URO Office Visit Appointment Date:04/05/2022 11:15:00 AM Scheduled Provider:Saeed Cantu Jr., MD Location:[facility] Appointment Type:URO Office Visit [facility] evaluation + Plan note Future Appointments Appointment Date:04/05/2022 11:15:00 AM Scheduled Provider:Saeed Cantu Jr., MD Location:[facility] Appointment Type:URO Office Visit Diagnostic Tests Pending * Testosterone Level Total 03/01/22 [facility] evaluation + Plan note Future Appointments Appointment Date:07/11/2022 10:15:00 AM Scheduled Provider: Location:[facility] Appointment Type:URO Nurse Visit [facility] evaluation + Plan note Future Appointments Appointment Date:09/07/2022 10:00:00 AM Scheduled Provider: Location:[facility] Appointment Type:URO Nurse Visit [facility] evaluation + Plan note Future Appointments Appointment Date:10/05/2022 10:00:00 AM Scheduled Provider: Location:[facility] Appointment Type:URO Nurse Visit [facility] evaluation + Plan note Future Appointments Appointment Date:11/01/2022 10:00:00 AM Scheduled Provider: Location:[facility] Appointment Type:URO Nurse Visit [facility] evaluation + Plan note Future Appointments Appointment Date:11/30/2022 10:00:00 AM Scheduled Provider:Taylor Joshua MD Location:[facility] Appointment Type:URO Office Visit Diagnostic Tests Pending * CBC w/ Auto Diff 11/01/22 * Testosterone Level Total 11/01/22 [facility] evaluation + Plan note Diagnostic Tests Pending * Testosterone Level Total 12/17/22 * Testosterone Level Total 04/25/23 [facility] evaluation + Plan note Future Appointments Appointment Date:04/05/2023 10:00:00 AM Scheduled Provider: Location:[facility] Appointment Type:URO Nurse Visit [facility] evaluation + Plan note Future Appointments Appointment Date:05/30/2023 10:00:00 AM Scheduled Provider: Location:[facility] Appointment Type:URO Nurse Visit [facility] evaluation + Plan note Future Appointments Appointment Date:07/10/2023 09:30:00 AM Scheduled Provider: Location:[facility] Appointment Type:URO Nurse Visit Appointment Date:11/27/2023 09:45:00 AM Scheduled Provider:Vianey MENDOZA MD Location:[facility] Appointment Type:URO Office Visit Diagnostic Tests Pending * Testosterone Level Total 06/12/23 * PSA Total 06/12/23 * CBC w/ Auto Diff 06/12/23 [facility] evaluation + Plan note Future Appointments Appointment Date:10/21/2024 10:15:00 AM Scheduled Provider:Vianey MENDOZA MD Location:[facility] Appointment Type:URO Office Visit Diagnostic Tests Pending * PSA Total 10/16/23 [facility] evaluation note* 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 Body mass index (BMI) 28.0-28.9, adult [facility] Height loss- Primary Loss of height documented in this encounter [facility] course Narrative No data available for this section [facility] Hospital Discharge instructions No data available for this section [facility] [email or web address] progress note No data available for this section [facility] [email or web address] Advance Directives No Advanced Directives Records FoundLatest [...] Referral Specialty Diagnoses / Procedures Referred By Contdoug flower Referred To Contact Neuroradiology Diagnoses Cognitive changes Late effect of brain injury (HCC) Jovita Virk MD [address] [place], [place] [id number] Referral ID Status Reason Start Date Expiration Date Visits Requested Visits Authorized [id number] Authorized Patient Preference 2 07/20/2023 3 3 Comments Brain MRI without contrast. H/o TBI 2010. Continues to struggle with cognitive deficits, fatigue, impaired balance, unimproved. Please evaluate for other structural causes of these issues. Fax report to me at [phone]. Specialty Diagnoses / Procedures Referred By Stephany flower Referred To Contact Speech Pathology Diagnoses Cognitive changes Late effect of brain injury (HCC) Jovita Virk MD [address] [place] [address] [place] [id number] Referral ID Status Reason Start Date Expiration Date Visits Requested Visits Authorized [id number] Pending Review Consultatio [facility] 2 07/20/2023 10 10 Question Answer [...] Found No data available for this section No Family History Records FoundNo Family History Records Found Additional Source Comments Reason for Visit (unrecogniz ed section and content) Reason Comments Refill Reason Comments Monitoring/follow-up Reason Comments back issue Care Teams (unrecognized sec tion and content) Animal Impersonator Relationship Specialty Start Date End Date Jovita Virk MD [address] [place] [address] Physician Physical Medicine & Rehab/PM&R 06/30/20 Animal Impersonator Relationship Specialty Start Date End Date Jovita Virk MD [address] [place] [address] Physician Physical Medicine & Rehab/PM&R 06/30/20 Animal Impersonator Relationship Specialty Start Date End Date Jovita Virk MD [address] [place], [place] Physician Physical Medicine & Rehab/PM&R 06/30/20 Animal Impersonator Relationship Specialty Start Date End Date Ilda Hendrickson MD PCP - General Family Medicine 12/04/17 (unrecognized sect ion and content) No Status Records FoundNo Status Records FoundNo Status Records FoundNo Status Records FoundNo Status Records Found INFORMATION SOURCE (unrecogn ized section and content) DATE CREATED AUTHOR 01/27/2023 [facility] DATE CREATED AUTHOR AUTHOR'S ORGANIZ ATION 04/27/2023 [facility] DATE CREATED AUTHOR AUTHOR'S ORGANIZ ATION 09/23/2023 [facility] DATE CREATED AUTHOR AUTHOR'S ORGANIZ ATION 10/25/2023 [facility] DATE CREATED AUTHOR AUTHOR'S ORGANIZ ATION 10/30/2023 [facility] Source Comments (unrecognize d section and content) In the event this informatio n is protected by the Federal Confidentiality of Alcohol and Drug Abuse Patient Records regulations: The Federal rules restrict any use of the information to criminally investigate or prosecute any alcohol or drug abuse patient.[facility] FOR RECORDS PERTAINING TO PATIENTS WHO ARE [...] BE BASED ON THE PRIMARY CLINICAL RECORDS. [employer] [facility]. provides no warranty or guarantee of the accuracy or completeness of information in this document.
== END 2023-10-31 10:27 | disposition home or self-care (01) ==
LOC: RAD 10:26
PROVIDERS: PCP Family Medicine; Visit Provider Podiatrist Foot & Ankle Surgery
DX: M79.672 Pain in left foot (principal)
CPT/HCPCS: 73630

== ENCOUNTER 2023-11-10 16:02 | Outpatient (OUT) | payer BC, MEDICARE, SELFPAY ==
--- OUTSIDE RECORDS SUMMARY | 2023-11-10 16:09 | XMS_ITS | CCD ---
Author Name Unknown Address [address] [facility] [address] [place] [address] Organization [facility] Care Team Providers Care Clinical Care Coordinator Name Role Phone Ilda Hendrickson Primary Care Physician [phone] [place] PRIETO, Jovita Unavailable Jovita Virk MD [...] Unavailable Ilda Hendrickson MD Primary Care Provider [phone] ILDA HENDRICKSON Primary Care Unavailable SHAWANDA HERNANDEZ Attending Unavailable Antonia, Sandoval Unavailable Vianey MENDOZA Attending Unavailable Vianey MENDOZA Attending Unavailable Taylor Joshua Attending Unavailable Vianey MENDOZA Attending Unavailable KYLE RODRIGUEZ Attending Unavailable Vianey MENDOZA Attending Unavailable KYLE RODRIGUEZ Attending Unavailable Taylor Joshua Attending Unavailable Vianey MENDOZA Attending Unavailable Taylor Joshua Attending Unavailable Vianey MENDOZA Attending Unavailable Vianey MENDOZA Attending Unavailable Ilda Hendrickson MD Primary Care Provider [phone] OSMIN ANTHONY Attending Unavaila ble ILDA HENDRICKSON Referring Unavailable ILDA HENDRICKSON Primary Care Unavailable BAKARI GARCIA Attending Unavailable ELTAHAWY, EHAB Admitting Unavailable ELTAHAWY, EHAB Attending Unavailable ELTAHAWY, EHAB Referring Unavailable DEMETRA PORTER Attending Unavailable ELTAHAWY, EHAB Referring Unavailable ELTAHAWY, EHAB Referring Unavailable ELTAHAWY, EHAB Attending Unavailable ELTAHAWY, EHAB Attending Unavailable ELTAHAWY, EHAB Referring Unavailable Allergies Allergy Classification Reported Allergen(s) Allergy Type Date of Onset Reaction(s) Facility (1 source) Ciprofloxacin Drug Allergy Unknown [email or web address] Other (1 source) No Known Medication Allergies; Translations: [No Known Medication Allergies] Propensity to adverse reactions (disorder) [facility] Repository Medications Current Medications Medication Drug [...] by mouth. apixaban 5 mg oral tablet (3 sources) Factor Xa Inhibitor Start: 06-27-2023 Eliquis 5 mg oral tablet Refills(s) 0 Start Date: 10/16/23 Status: Ordered Ascorbic Acid (20 sources) Vitamin C Start: 05-07-2019 Vitamin C Daily, Refills(s) 0 Start Date: 05/07/19 Status: Ordered Start: 05-07-2019 Ascorbic Acid (VITAMIN C) 100 mg tablet Daily, Refills(s) 0 0 05/07/2019 Active take 1 tablet by darren th once daily ascorbic acid, vitamin C, (ascorbic acid with steph hips) 500 mg tablet Take 500 mg by mouth daily. 0 Active End: 04-26-2023 ASCORBIC ACID (VITAMIN C ORA L) Indications: Leukopenia, unspecified type , Thrombocytopenia (HCC) , Hypothyroidism, unspecified type Take 1,000 mg by mouth. 0 04/26/2023 Discontinued (Course of therapy completed) Ascorbic Acid (V itamin C) 100 MG CHEW Vitamin C 0 Active Comment on above: Daily, Refills(s) 0 Take 1,000 mg by darren th. carvedilol 6.25 mg oral tablet (3 sources) alpha-Adrenergic Joan, beta-Adrenergic Joan Start: 08-03-2023 End: 08-02-2024 carvedilol 6.25 mg Tab Refills(s) 0 Start Date: 10/16/23 Status: Ordered take 1 tablet by mouth every twe lve hours Coreg 25 MG 1 tablet with food Orally Twice a day Active chondroitin sulfates 400 mg / glucosamine hydrochloride 500 mg oral tablet (2 sources) take 3 tablets by mouth once daily glucosamine-chondroitin 500-400 mg tablet Take 3 tablets by mouth daily. 0 Active End: 04-26-2023 take 750 mg by mouth once daily GLUCOSAMINE HCL/CHONDROITIN ARANDA (GLUCOSAMINE-CHONDROITIN) 750-600 mg chew Take 750 mg by mouth once daily. 0 04/26/2023 Discontinued (Course of therapy completed) Comment on above: Take 750 mg by mouth once daily. Depo-Testosterone 200 mg/mL intramuscular solution (3 sources) Start: 01-05-20 Depo-Testosterone 200 mg/mL intramuscular solution 300 mg, IntraMuscular, q4wk, # 10 mL, Refills(s) 1, Pharmacy: [facility]/pharmacy #[id number], 167, cm, 10/05/21 11:32:00 EST, Height/Length Dosing, 83, kg, 10/05/21 11:32:00 EST, Weight Dosing Start Date: 01/04/22 Status: Ordered dexpanthenol 2 mg/ml / niacinamide 100 mg/ml / riboflavin 2 mg/ml / thiamine 100 mg/ml / vitamin b6 2 mg/ml injectable solution (12 sources) Start: 05-07-20 Vitamin B Complex injectable solution Refill(s) 0 Start Date: 05/07/19 Status: Ordered Comment on above: Refill(s) 0 dilTIAZem hydrochloride 120 mg oral tablet (1 source) Calcium Channel Joan take 1 tablet by mouth once daily diltiazem (CARDIZEM) 120 MG tablet Take 120 mg by mouth daily. 0 Active docosahexaenoic acid 120 mg / eicosapentaenoic acid 180 mg oral capsule (4 sources) take 1 capsule by mouth once daily [place]-3 Fatty Acids (FISH OIL) 1000 MG CAPS Take 1 Capsule by mouth daily. 0 Active DOCOSAHEXANOIC ACID/EPA (FISH OIL ORAL) (1 source) take 1200 mg by mouth once daily DOCOSAHEXANOIC ACID/EPA (FISH OIL ORAL) Take 1,200 mg by mouth daily. 0 Active Fish Oils (9 sources) Start: 05-07-20 Fish Oil Oral, Refill(s) 0 Start Date: 05/07/19 Status: Ordered levothyroxine sodium 0.15 mg oral tablet (20 sources) l-Thyroxine Start: 05-07-20 take 1 tablet by mouth once daily levothyroxine 150 mcg (0.15 mg) Tab microgram tab(s), Oral, Daily, Refills(s) 0 Start Date: 05/07/19 Status: Ordered Start: 02-08-2017 take 1 tablet by darren th once daily levothyroxine (SYNTHROID) 150 mcg tablet Take 150 mcg by mouth once daily. 0 09/30/2017 Active Start: 08-25-2016 levothyroxine (SYNTHROID, LEVOTHROID) 175 MCG tablet Take 150 mcg by mouth once daily. 11 08/25/2016 Active Comment on above: Take 150 mcg [...] hydrochloride 5 mg oral tablet (4 sources) Q-bvfved-J-aspartat e Receptor Antagonist Start: 2 End: 2 take 1 tablet by mouth once daily memantine (NAMENDA) 5 MG tablet Take 1 Tablet by mouth daily. 30 Tablet 3 07/20/2022 Active tamsulosin hydrochloride 0.4 mg oral capsule (20 sources) alpha-Adrenergic Joan Start: 2 End: 3 take 1 capsule by mouth twice daily Flomax 0.4 mg Cap 0.4 mg = 1 cap(s), Oral, BID, X 90 day(s), # 180 cap(s), Refills(s) 3, [id number], 167, cm, 10/05/21 11:32:00 EST, Height/Length Dosing, 83, kg, 10/05/21 11:32:00 EST, Weight Dosing Start Date: 11/24/21 Stop Date: 11/19/22 Status: Ordered Start: 02-08-2017 take 1 capsule by [facility] once daily tamsulosin 0.4 mg Cap 0.4 mg = 1 cap(s), Oral, Daily, # 90 cap(s), Refills(s) 3, [id number], 170, cm, 06/12/23 12:26:00 EDT, Height/Length Dosing, 86.5, kg, 06/12/23 12:26:00 EDT, Weight Dosing Start Date: 07/07/23 Status: Ordered take 1 capsule by [facility] every twenty-four hours in the morning tamsulosin (FLOMAX) 0.4 mg capsule,extended release 24hr Take 1 capsule (0.4 mg total) by mouth in the morning. 0 Active Comment on above: 0.4 mg once daily. testosterone cypionate 200 mg/ml injectable solution (16 sources) Androgen Start: 05-03-2023 Depo-Testosterone 200 mg/mL intramuscular solution 300 mg, IntraMuscular, q4wk, # 10 mL, Refills(s) 1, [id number], 170, cm, 12/02/22 8:17:00 EST, Height/Length Dosing, 83.2, kg, 12/02/22 8:17:00 EST, Weight Dosing Start Date: 05/03/23 Status: Ordered Start: 09-07-2022 Depo-Testoster one 200 mg/mL intramuscular solution 300 mg, IntraMuscular, q4wk, # 10 mL, Refills(s) 1, [id number], 167, cm, 10/05/21 11:32:00 EST, Height/Length Dosing, 83, kg, 05/10/22 10:08:00 EDT, Weight Dosing Start Date: 09/07/22 Status: Ordered Start: 01-04-2022 Depo-Testoster one 200 mg/mL intramuscular solution 300 mg, IntraMuscular, q4wk, # 10 mL, Refills(s) 1, Pharmacy: [facility]/pharmacy #[id number], 167, cm, 10/05/21 11:32:00 EST, [...] aspirin 325 mg delayed release oral tablet (2 sources) Platelet Aggregation Inhibitor, Nonsteroidal Anti-inflammatory Drug Start: 01-09-2018 End: 04-26-2023 take 1 tablet by mouth once daily aspirin, enteric coated (ASPIRIN, ENTERIC COATED) 325 mg EC tablet Take 325 mg by mouth once daily. 2 01/09/2018 04/26/2023 Discontinued (Course of therapy completed) take 1 tablet by mouth in the mo rning aspirin 325 mg tablet Take 1 tablet (325 mg total) by mouth in the morning. 0 Active Comment on above: Take 325 mg by mouth once daily. atomoxetine 60 mg oral capsule (1 source) Norepinephrine Reuptake Inhibitor End: take 1 capsule by mouth once daily atomoxetine (STRATTERA) 60 mg capsule Take 60 mg by mouth once daily. 0 04/26/2023 Discontinued (Course of therapy completed) Comment on above: Take 60 mg by mouth once daily. Bupivacaine (1 source) Amide Local Anesthetic Start: End: BUPivacaine HCl (MARCAINE) 0.5 % (5 mg/mL) injection 30 mg Creatine (1 source) End: CREATINE MONOHYDRATE (CREATINE ORAL) Indications: Leukopenia, unspecified type , Thrombocytopenia (HCC) , Hypothyroidism, unspecified type Take by mouth. 0 04/26/2023 Discontinued (Course of therapy completed) Comment on above: Take by mouth. 1 ml dexamethasone phosphate 4 mg/ml injection (1 source) Corticosteroid Start: End: dexAMETHasone (DECADRON) injection 8 mg folic acid 1 mg oral tablet (1 source) Start: End: take 1 tablet by mouth once daily [...] take 1 capsule by mouth once daily [place] Aspartate 20 mg cap Take 1 capsule [...] [Unspecified asthma, uncomplicated] 11-30-2017 Chronic Cardiac dysrhythmias (12 sources) Atrial fibrillation; Translations: [Unspecified atrial fibrillation] Onset: 6 05-29-2019 Chronic Chronic kidney disease (1 source) [...] chronic kidney disease] Onset: 3 Chronic Osteoarthritis (12 sources) Bilateral arthritis of knees; Translations: [Bilateral primary osteoarthritis of knee] Onset: 6 05-29-2019 Chronic Other circulatory disease (1 source) Orthostatic hypotension; Translations: [Orthostatic hypotension] 11-30-2017 Episodic Other connective tissue disease (5 sources) History of total knee arthroplasty; Translations: [...] Test Name Value Interpretation Reference Range Facility $ Large Joint Injection: R k marielececi 11-02-2023 Osmin Juarez ch, MD 11/02/2023 11:03 AM $ Large Joint Injection: R knee on 11/02/2023 10:57 AM Indications: pain Details: 22 G needle, medial approach Medications: 8 mg dexAMETHasone 4 mg/mL; 30 mg BUPivacaine HCl 0.5 % (5 mg/mL) Outcome: tolerated well, no immediate complications (Clean band-aid dressing applied to injection site. ) Procedure, treatment alternatives, risks and benefits explained, specific risks discussed (Informed consent was obtained. ). Consent was given by the patient. Patient was prepped and draped in the usual sterile fashion (Area prepped with betadine and alcohol.). MANUALLY TRANSCRIBED RESULTS [employer] Office Visiton 10-30-2023 Follow-up visit [id number] EdienkechiLane Mcintosh 1960 M Date Provider Department Center 10/30/2023 1596-DEMETRA PORTER [facility] Family History Problem Relation Age of Onset Cancer Mother Diabetes Mother Coronary artery disease Father Stroke Father Cancer Father Family Status - Relation Status Age at Mother Father Level of Service:64139 MO OFFICE/OUTPATIENT ESTABLISHED MOD MDM 30 MIN Normal [facility] Physician Referralon 024 Physician Referral [id number] IFF Normal [facility] Lab Reportson 10-17-2023 Lab Reports [id number] FF Normal [facility] Ambulatory Visit Summaryon 0 10-16-2023 Ambulatory Visit Summary VIANEY LACEY :1960 Visit Date:10/16/2023 Ambulatory Visit Instructions Your Diagnosis BPH with urinary obstruction Hypogonadism male Urge incontinence ED (erectile dysfunction) Tests Performed Urnls Dip Stick Auto w/o Microscopy POC 29722 Your Care Team Attending Physician - HERRERA [...] Follow-Up Appointments Monday 10:15 AM EST With: Vianey MENDOZA MD Where: [facility] Gilma Normal [facility] Patient Educationon 10-16-19 24 Patient Education Obstetrics and Gynecology Kegel Exercises [...] provider. Document Revised: 01/20/2022 Document Reviewed: 01/20/2022 Review Trackers Patient Education ? 2022 [employer]. Reginald [facility] Urology Office/Clinic Noteon 10-16-2023 Urology Office/Clinic [...] pt's heart. Follow-up With When Contact Information Vianye MENDOZA MD, URL In 1 year [facility] [address], [place] [address]- Additional Instructions: w/PSA Patient Education Kejayna Contreras I, Megan Brunson , personally scribed for Dr. Mendoza on 10/16/2023 14:05:07. . Documentation recorded by the scribe, Megan Brunson, accurately reflects the services(s) I performed and decisions made by me. Problem List/Past Medical History Ongoing BPH with urinary obstruction ED (erectil (more content not included)... Normal [facility] Comment on above: Result Comment: Elec tronically Signed By: Vianey MENDOZA MD\.br\Date and Time Signed: 10/16/23 14:10 EST\.br\Electronically Co-Signed By: Megan Brunson.br\Date and Time Co-Signed: 10/16/23 14:05 EST Letter (Out)on 10-13-2023 Letter (Out) [id number] Lane Lacey 1960 M Date Provider Department Center 10/13/2023 None-None [facility] [place] [facility] Family History Problem Relation Age of Onset Cancer Mother Diabetes Mother Coronary artery disease Father Stroke Father Cancer Father Family Status - Relation Status Age at Mother Father Normal [facility] Orders Onlyon 09-27-[id number] Lacey 1960 M Date Provider Department Center 09/27/2023 928-ISHMAEL SY MAXWELL [facility] Family History Problem Relation Age of Onset Cancer Mother Diabetes Mother Coronary artery disease Father Stroke Father Cancer Father Family Status - Relation Status Age at Mother Father Normal [facility] Prep for Procedureon 024 Prep for Procedure [id number] [address] Lacey 1960 [facility] Provider Department [place] 09/27/20231986-TAYLOR PEREZ [facility] Family History Problem Relation Age of Onset Cancer Mother Diabetes Mother Coronary artery disease Father Stroke Father Cancer Father Family Status - Relation Status Age at Mother Father Normal [facility] Telephone Encounteron 2022 Conference Concierge Authentication Interface Message Text Patient has not been seen by this specialist in more than 1 year. Please contact patient to schedule office visit. Thank you Normal [facility] Office Visiton 09-08-2023 Follow-up visit [id number] Lane Lacey 1960 [facility] Provider Department [place] 09/08/2023 241-BAKARI GARCIA [facility] Family History Problem Relation Age of Onset Cancer Mother Diabetes Mother Coronary artery disease Father Stroke Father Cancer Father Family Status - Relation Status Age at Mother Father Level of Service:67100 MO OFFICE/OUTPATIENT NEW MODERATE MDM 45 MINUTES Reason for Visit and Comments: Follow-up [140182] - Seen George William 08/10/2023 [facility] Office Visiton 08-10-2023 Follow-up visit [id number] Lane Lacey 1960 [facility] Provider Department [place] 08/10/2023 271-GEORGE WILLIAM MAXWELL [place] Family History Problem Relation Age of Onset Cancer Mother Diabetes Mother Coronary artery disease Father Stroke Father Cancer Father Family Status - Relation Status Age at Mother Father Level of Service:47036 MO OFFICE/OUTPATIENT ESTABLISHED MOD MDM 30-39 MIN Normal [facility] Orders Onlyon 08-10-[id number] Lacey 1960 [facility] Provider Department [place] 08/10/2023 895-NEO FROST MAXWELL [facility] Family History Problem Relation Age of Onset Cancer Mother Diabetes Mother Coronary artery disease Father Stroke Father Cancer Father Family Status - Relation Status Age at Mother Father [facility] HPon 07-11-2023 HP H&P reviewed. The patient was examined and there are no changes to the H&P. George William MD, MPH, FACC, [facility], [facility] Interventional Cardiology Pager Email: [email or web address]. [facility] NURSNOTEon 07-11-2023 NURSNOTE Pt performed and pas sed bedside swallow study. RN educated pt on d/c instructions. RN encouraged pt to voice any questions or concerns. Pt verbalizes no questions or concerns at this time. Pt was wheeled off of unit with all of belongings. [facility] NURSNOTE Pre certification no t yet gone through, per Dr. William he will ensure the bill is taken care of. [facility] Orders Onlyon 07-11-[id number] Lacey 1960 M [facility] Provider Department Center 07/11/2023 6143-CANCIC, WILLIAM C INF Stephanie Heal Family History Problem Relation Age of Onset Cancer Mother Diabetes Mother Coronary artery disease Father Stroke Father Cancer Father Family Status - Relation Status Age at Mother Father [facility] Telephoneon 07-10-[id number] Lacey 1960 M Date Provider Department Center 07/10/2023 XU HAY [facility] [place] [facility] Family History Problem Relation Age of Onset Cancer Mother Diabetes Mother Coronary artery disease Father Stroke Father Cancer Father Family Status - Relation Status Age at Mother Father [facility] Letter (Out)on 07-05-2023 Letter (Out) [id number] Lane Lacey 1960 Date Provider Department Center 07/05/2023 None-None [facility] Family History Problem Relation Age of Onset Cancer Mother Diabetes Mother Coronary artery disease Father Stroke Father Cancer Father Family Status - Relation Status Age at Mother Father [facility] 36on 07-03-2023 36 Patient's chantal mallory stating Dr. Hendrickson stopped lasix after lab results today (in remediation project engineer for your review). also wants to know [...] to check on status of cath. Thanks. [facility] 06-28-2023 [facility] Cardiology Clinic Note Chief Complaint: Patient here to re-establish care for PAF. Was last seen in [address] Peck. Had echo and ECG yesterday. states they recently returned home from [place]. While they were there, he had intermittent SOB with very swollen ankles. 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 Feeling chest pressure. He is in the process of getting a cpap machine for NANCY. HPI: ODILON Lacey is a 63 y.o. male known to me from prior office visits and his - Nitza Addison who works at [employer]. He has a known h/o PAF in the past ([id number]) thought to be related to thyroid issues [...] ST-T wave changes Assessment: Paroxysmal atrial fibrillation, [id number] score of 2-3 Chest pain - unstable [...] our elect (more content not included)... Normal [facility] Office Visiton 06-28-2023 Follow-up visit [id number] Lane Lacey 1960 M Date Provider Department Center 06/28/2023 Isa-GEORGE WILLIAM Family History Problem Relation Age of Onset Cancer Mother Diabetes Mother Coronary artery disease Father Stroke Father Cancer Father Family Status - Relation Status Age at Mother Father Level of Service:72654 MO OFFICE/OUTPATIENT [facility] 60-74 MINUTES Normal [facility] Orders Onlyon 06-28-[id number] Lacey 1960 M Date Provider Department Center 06/28/2023 NEO TAYLOR Family History Problem Relation Age of Onset Cancer Mother Diabetes Mother Coronary artery disease Father Stroke Father Cancer Father Family Status - Relation Status Age at Mother Father Normal [facility] Patient Educationon 06-12-20 Patient Education Urology [...] Follow these instructions at home: ? Take kzcg-[id number]-nsqhbwn and prescription medicines only as told by [...] 05/13/2021 Document (more content not included)... Normal [facility] Urology Office/Clinic Noteon 06-12-2023 Urology Office/Clinic [...] Contact Information HERRERA PRIETO, Vianey Crawford, URL In 6 months [facility] [address], [place] [address] [phone] Additional Instructions: w/Testosterone Level, PSA and CBC Patient Education Hypogonadism, Male I, Megan Brunson , personally scribed for Dr. Mendoza on 06/12/2023 13:19:35. . Documentation recorded by the scribeMegan, accurately reflects the services(s) I performed and [...] tamsulosin 0.4 m (more content not included)... [facility] Comment on above: Result Comment: Elec tronically Signed By: Vianey MENDOZA MD\.br\Date and Time Signed: 06/12/23 13:23 EDT\.br\Electronically Co-Signed By: Megan Brunson\.br\Date and Time Co-Signed: 06/12/23 13:20 EDT Lab Reportson 05-23-2023 Lab Reports [id number] D:127 [facility] Ambulatory Visit Summaryon 0 05-03-2023 Ambulatory [...] 10:00 AM EDT Where: [facility] CNOVon 04-26-2023 CNOV Office Visit ([facility] ) VIANEY LACEY ([id number]) 1960 M Date Time Provider Department 04/26/23 [...] palpable masses (more content not included)... Normal [facility] Lab Reportson 01-24-2023 Lab Reports [id number] D:127 Normal [facility] TESTOSTERONE, TOTALon 2022 Testosterone [Mass/Vol] 347 ng/dL Normal 264-916 [facility] Comment on above: Result Comment: Adul t male reference interval is based on a population of healthy nonobese males (BMI <30) between 19 and 39 years old. Brad et.al. JCEM 2017,102;1169-4776. PMID: [id number]. Performed By: #### T ESTTOT #### [facility] [address] [place] [address] Dr. Reuben Morrison Pre-Certification Formon Pre-Certification Form [id number] :127 Normal [facility] Pre-Certification Form [id number] D:127 Normal [facility] Ambulatory Visit Summaryon 0 12-02-2022 Ambulatory Visit Summary VIANEY LACEY :1960 Visit Date:12/02/2022 Ambulatory Visit Instructions Your Diagnosis BPH with urinary obstruction Hypogonadism male Tests Performed Urnls Dip Stick Auto w/o Microscopy POC 96862 Your Care Team Attending Physician - HERRERA [...] with HERRERA PRIETO, DARA Doty When: Where: [address] [place] [address]- Medications What How Much When Instructions Unchanged [...] Urnls Dip Stick Auto w/o Microscopy POC 55485 (12/02/2022) Bilirubin Urine Dipstick - Negative Blood Urine Dipstick - Negative Glucose Urine Dipstick - Negative Ketones Urine Dipstick - Negative Leukocytes Urine Dipstick - Negative Nitrite Urine Dipstick - Negative Protein Urine Dipstick - Negative Specific [place] Urine Dipstick - >=1.030 Urine Appearance Urine [...] post-void bladder (more content not included)... Normal [facility] Patient Educationon 12-03-19 23 Patient Education [...] Follow these instructions at home: ? Take kagu-mul-ohnaxgu and prescription medicines only as told by [...] You d (more content not included)... Normal [facility] Urology Office/Clinic Noteon 12-02-2022 Urology Office/Clinic [...] Contact Information HERRERA PRIETO, Vianey Crawford, URL [facility] [place] [phone]- Additional Instructions: 6 months w/ testosterone Patient Education Benign Prostatic Hyperplasia Mirian Hidalgo, personally scribed for Dr. Mendoza on 12/02/2022 [...] qWeek Allergie (more content not included)... Normal [facility] Comment on above: Result Comment: Elec tronically Signed By: Vianey MENDOZA MD\.br\Date and Time Signed: 12/02/22 09:04 EST\.br\Electronically Co-Signed By: Mirian Shepard.br\Date and Time Co-Signed: 12/02/22 09:01 EST Lab Reportson 11-29-2022 Lab Reports [id number] D:127 Normal [facility] XR TSPINE 3 VIEWSon 11-18-19 23 [...] by: ALFREDITO LOAIZA Date: 2022-11-18 16:11 Normal [facility] TESTOSTERONE, TOTALon 2022 Testosterone [Mass/Vol] 993 ng/dL Critically high 264-916 [facility] Comment on above: Result Comment: Adul t male reference interval is based on a population of healthy nonobese males (BMI <30) between 19 and 39 years old. Brad, et.al. JCEM 2017,102;1167-6513. PMID: [id number]. Performed By: #### T ESTTOT #### [facility] [address] [address] [address] Reuben Morrison Ambulatory Visit Summaryon 0 [...] PRIETO, [place] Where: [facility] Normal [facility] CBC AUTO DIFFon 06-15-2022 BASO # 0.0 103/ul Normal 0.0-0.1 [facility] Comment on above: Performed By: #### C BC #### [facility] [address] [address] [address] Reuben Morrison Basophils/100 WBC (Bld) 0.4 % Normal 0.2-2.0 [facility] Comment on above: Performed By: #### C BC #### [facility] [address] [address] [address] Reuben Morrison EO # 0.1 103/ul Normal 0.0-0.7 [facility] Comment on above: Performed By: #### C BC #### [facility] [address] [place] [address] Dr. Reuben Morrison Eosinophils/100 WBC (Bld) 1.3 % Normal 0.9-7.0 [facility] Comment on above: Performed By: #### C BC #### [facility] [address] [place] [address] Dr. Reuben Morrison Erythrocyte distribution width (RBC) [Ratio] 14.3 % Normal 11.0-15.0 [facility] Comment on above: Performed By: #### C BC #### [facility] [address] [place] [address] Dr. Reuben Morrison Hematocrit (Bld) [Volume fraction] 48.9 % Normal 42.0-54.0 [facility] Comment on above: Performed By: #### C BC #### [facility] [address] [place] [address] Dr. Reuben Morrison Hemoglobin (Bld) [Mass/Vol] 16.6 g/dL Normal 14.0-18.0 [facility] Comment on above: Performed By: #### C BC #### [facility] [address] [place] [address] Dr. Reuben Morrison IG # 0.01 10e3/ul Normal 0.00-0.03 [facility] Comment on above: Performed By: #### C BC #### [facility] [address] [place] [address] Dr. Reuben Morrison IG % 0.2 % Normal 0.0-0.5 [facility] Comment on above: Performed By: #### C BC #### [facility] [address] [place] [address] Dr. Reuben Morrison LYMPH # 1.1 103/ul Critically low 1.2-3.8 [facility] Comment on above: Performed By: #### C BC #### [facility] [address] [place] [address] Dr. Reuben Morrison Lymphocytes/100 WBC (Bld) 24.3 % Normal 20.5-60.0 [facility] Comment on above: Performed By: #### C BC #### [facility] [address] [place] [address] Dr. Reuben Morrison MANUAL DIFF REQ NO Normal [facility] Comment on above: Performed By: #### C BC #### [facility] [address] [place] [address] Dr. Reuben Morrison MCH (RBC) [Entitic mass] 29.5 pg Normal 25.9-34.0 [facility] Comment on above: Performed By: #### C BC #### [facility] [address] [place] [address] Dr. Reuben Morrison MCHC (RBC) [Mass/Vol] 33.9 g/dL Normal 29.9-35.2 [facility] Comment on above: Performed By: #### C BC #### [facility] [address] [place] [address] Dr. Reuben Morrison MCV (RBC) [Entitic vol] 86.9 fL Normal 80.0-94.0 [facility] Comment on above: Performed By: #### C BC #### [facility] [address] [place] [address] Dr. Reuben Morrison MONO # 0.5 103/ul Normal 0.3-0.8 [facility] Comment on above: Performed By: #### C BC #### [facility] [address] [place] [address] Dr. Reuben Morrison Monocytes/100 WBC (Bld) 9.6 % Normal 1.7-12.0 [facility] Comment on above: Performed By: #### C BC #### [facility] [address] [place] [address] Dr. Reuben Morrison NEUT # 3.0 103/ul Normal 1.4-6.5 [facility] Comment on above: Performed By: #### C BC #### [facility] [address] [place] [address] Dr. Reuben Morrison Neutrophils/100 WBC (Bld) 64.2 % Normal 43.0-75.0 [facility] Comment on above: Performed By: #### C BC #### [facility] [address] [place] [address] Dr. Reuben Morrison Platelet mean volume (Bld) [Entitic vol] 9.7 fL Normal 9.5-13.5 [facility] Comment on above: Performed By: #### C BC #### [facility] [address] [id number] [address] Reuben Morrison PLT 130 103/ul Critically low 150-[address] [facility] Comment on above: Result Comment: plts . appear slightly decreased Performed By: #### C BC #### [facility] [address] [place] [address] Dr. Reuben Morrison RBC 5.63 106/ul Normal 4.70-6.10 [facility] Comment on above: Performed By: #### C BC #### [facility] [address] [place] [address] Dr. Reuben Morrison WBC 4.7 103/ul Normal 4.0-11.0 [facility] Comment on above: Performed By: #### C BC #### [facility] [address] [place] [address] Dr. Reuben Morrison TESTOSTERONE, TOTALon 2021 Testosterone [Mass/Vol] 404 ng/dL Normal 264-916 [facility] Comment on above: Result Comment: Adul t male reference interval is based on a population of healthy nonobese males (BMI <30) between 19 and 39 years old. stephania Salinas.al. JCEM 2017,102;8789-6554. PMID: [id number]. Performed By: #### T ESTTOT #### [facility] [address] [place], [place] [id number] Dr. Reuben Morrison CBC AUTO DIFFon 04-27-2022 BASO # 0.0 103/ul Normal 0.0-0.1 [facility] Comment on above: Performed By: #### T ESTTOT #### [facility] [address] [place], [place] [id number] Dr. Reuben Morrison Basophils/100 WBC (Bld) 1.0 % Normal 0.2-2.0 [facility] Comment on above: Performed By: #### T ESTTOT #### [facility] [address] [place] [address] Dr. Reuben Morrison EO # 0.1 103/ul Normal 0.0-0.7 [facility] Comment on above: Performed By: #### T ESTTOT #### [facility] [address] [place] [address] Dr. Reuben Morrison Eosinophils/100 WBC (Bld) 1.8 % Normal 0.9-7.0 [facility] Comment on above: Performed By: #### T ESTTOT #### [facility] [address] [place] [address] Dr. Reuben Morrison Erythrocyte distribution width (RBC) [Ratio] 14.0 % Normal 11.0-15.0 [facility] Comment on above: Performed By: #### T ESTTOT #### [facility] [address] [place] [address] Dr. Reuben Morrison Hematocrit (Bld) [Volume fraction] 47.3 % Normal 42.0-54.0 [facility] Comment on above: Performed By: #### T ESTTOT #### [facility] [address] [place] [address] Dr. Reuben Morrison Hemoglobin (Bld) [Mass/Vol] 16.2 g/dL Normal 14.0-18.0 [facility] Comment on above: Performed By: #### T ESTTOT #### [facility] [address] [place] [address] Dr. Reuben Morrison IG # 0.01 10e3/ul Normal 0.00-0.03 [facility] Comment on above: Performed By: #### T ESTTOT #### [facility] [address] [place] [address] Dr. Reuben Morrison IG % 0.3 % Normal 0.0-0.5 [facility] Comment on above: Performed By: #### T ESTTOT #### [facility] [address] [address] [address] Reuben Morrison LYMPH # 1.1 103/ul Critically low 1.2-3.8 [facility] Comment on above: Performed By: #### T ESTTOT #### [facility] [address] [place] [address] Dr. Reuben Morrison Lymphocytes/100 WBC (Bld) 26.6 % Normal 20.5-60.0 [facility] Comment on above: Performed By: #### T ESTTOT #### [facility] [address] [place] [address] Dr. Reuben Morrison MANUAL DIFF REQ NO Normal [facility] Comment on above: Performed By: #### T ESTTOT #### [facility] [address] [place] [address] Dr. Reuben Morrison MCH (RBC) [Entitic mass] 29.5 pg Normal 25.9-34.0 [facility] Comment on above: Performed By: #### T ESTTOT #### [facility] [address] [place] [address] Dr. Reuben Morrison MCHC (RBC) [Mass/Vol] 34.2 g/dL Normal 29.9-35.2 [facility] Comment on above: Performed By: #### T ESTTOT #### [facility] [address] [place] [address] Dr. Reuben Morrison MCV (RBC) [Entitic vol] 86.2 fL Normal 80.0-94.0 [facility] Comment on above: Performed By: #### T ESTTOT #### [facility] [address] [place] [address] Dr. Reuben Morrison MONO # 0.4 103/ul Normal 0.3-0.8 [facility] Comment on above: Performed By: #### T ESTTOT #### [facility] [address] [place] [address] Dr. Reuben Morrison Monocytes/100 WBC (Bld) 9.0 % Normal 1.7-12.0 [facility] Comment on above: Performed By: #### T ESTTOT #### [facility] [address] [address] [address] Reuben Morrison NEUT # 2.5 103/ul Normal 1.4-6.5 [facility] Comment on above: Performed By: #### T ESTTOT #### [facility] [address] [address] [address] Reuben Morrison Neutrophils/100 WBC (Bld) 61.3 % Normal 43.0-75.0 [facility] Comment on above: Performed By: #### T ESTTOT #### [facility] [address] [address] [address] Reuben Morrison Platelet mean volume (Bld) [Entitic vol] 9.6 fL Normal 9.5-13.5 [facility] Comment on above: Performed By: #### T ESTTOT #### [facility] [address] [place] [address] Dr. Reuben Morrison PLT 128 103/ul Critically low 150-[address] [facility] Comment on above: Performed By: #### T ESTTOT #### [facility] [address] [place] [address] Dr. Reuben Morrison RBC 5.49 106/ul Normal 4.70-6.10 [facility] Comment on above: Performed By: #### T ESTTOT #### [facility] [address] [place] [address] Dr. Reuben Morrison WBC 4.0 103/ul Normal 4.0-11.0 [facility] Comment on above: Performed By: #### T ESTTOT #### [facility] [address] [place] [address] Dr. Reuben Morrison INSULINon 03-08-2022 Insulin 4.3 uIU/mL Normal 2.6-24.9 [facility] Comment on above: Performed By: #### T ESTTOT #### [facility] [address] [place] [address] Dr. Reuben Morrison TESTOSTERONE, TOTALon 2021 Testosterone [Mass/Vol] ng/dL Critically high 264-916 [facility] Comment on above: Result Comment: Adul t male reference interval is based on a population of healthy nonobese males (BMI <30) between 19 and 39 years old. Brad, et.al. JCEM 2017,102;4459-3801. PMID: [id number]. Performed By: #### T ESTTOT #### [facility] [address] [address] [address] Reuben Morrison CBC AUTO DIFFon 03-07-2022 BASO # 0.1 103/ul Normal 0.0-0.1 [facility] Comment on above: Performed By: #### C BC #### [facility] [address] [address] [address] Reuben Morrison Basophils/100 WBC (Bld) 1.4 % Normal 0.2-2.0 [facility] Comment on above: Performed By: #### C BC #### [facility] [address] [place] [address] Dr. Reuben Morrison EO # 0.1 103/ul Normal 0.0-0.7 [facility] Comment on above: Performed By: #### C BC #### [facility] [address] [place] [address] Dr. Reuben Morrison Eosinophils/100 WBC (Bld) 1.4 % Normal 0.9-7.0 [facility] Comment on above: Performed By: #### C BC #### [facility] [address] [place] [address] Dr. Reuben Morrison Erythrocyte distribution width (RBC) [Ratio] 14.7 % Normal 11.0-15.0 [facility] Comment on above: Performed By: #### C BC #### [facility] [address] [place] [address] Dr. Reuben Morrison Hematocrit (Bld) [Volume fraction] 49.8 % Normal 42.0-54.0 [facility] Comment on above: Performed By: #### C BC #### [facility] [address] [place] [address] Dr. Reuben Morrison Hemoglobin (Bld) [Mass/Vol] 16.4 g/dL Normal 14.0-18.0 [facility] Comment on above: Performed By: #### C BC #### [facility] [address] [place] [address] Dr. Reuben Morrison IG # 0.01 10e3/ul Normal 0.00-0.03 [facility] Comment on above: Performed By: #### C BC #### [facility] [address] [place] [address] Dr. Reuben Morrison IG % 0.3 % Normal 0.0-0.5 [facility] Comment on above: Performed By: #### C BC #### [facility] [address] [place] [address] Dr. Reuben Morrison LYMPH # 0.9 103/ul Critically low 1.2-3.[address] [facility] Comment on above: Performed By: #### C BC #### [facility] [address] [place] [address] Dr. Reuben Morrison Lymphocytes/100 WBC (Bld) 24.7 % Normal 20.5-60.0 [facility] Comment on above: Performed By: #### C BC #### [facility] [address] [place] [address] Dr. Reuben Morrison MANUAL DIFF REQ NO Normal [facility] Comment on above: Performed By: #### C BC #### [facility] [address] [place] [address] Dr. Reuben Morrison MCH (RBC) [Entitic mass] 28.9 pg Normal 25.9-34.0 [facility] Comment on above: Performed By: #### C BC #### [facility] [address] [place] [address] Dr. Reuben Morrison MCHC (RBC) [Mass/Vol] 32.9 g/dL Normal 29.9-35.2 [facility] Comment on above: Performed By: #### C BC #### [facility] [address] [place] [address] Dr. Reuben Morrison MCV (RBC) [Entitic vol] 87.7 fL Normal 80.0-94.0 [facility] Comment on above: Performed By: #### C BC #### [facility] [address] [address] [address] Reuben Morrison MONO # 0.4 103/ul Normal 0.3-0.8 [facility] Comment on above: Performed By: #### C BC #### [facility] [address] [address] [address] Reuben Morrison Monocytes/100 WBC (Bld) 9.5 % Normal 1.7-12.0 [facility] Comment on above: Performed By: #### C BC #### [facility] [address] [place] [address] Dr. Reuben Morrison NEUT # 2.3 103/ul Normal 1.4-6.5 [facility] Comment on above: Performed By: #### C BC #### [facility] [address] [place] [address] Dr. Reuben Morrison Neutrophils/100 WBC (Bld) 62.7 % Normal 43.0-75.0 [facility] Comment on above: Performed By: #### C BC #### [facility] [address] [place] [address] Dr. Reuben Morrison Platelet mean volume (Bld) [Entitic vol] 9.8 fL Normal 9.5-13.5 [facility] Comment on above: Performed By: #### C BC #### [facility] [address] [place] [address] Dr. Reuben Morrison PLT 149 103/ul Critically low 150-450 [facility] Comment on above: Performed By: #### C BC #### [facility] [address] [place] [address] Dr. Reuben Morrison RBC 5.68 106/ul Normal 4.70-6.10 [facility] Comment on above: Performed By: #### C BC #### [facility] [address] [place] [address] Dr. Reuben Morrison WBC 3.7 103/ul Critically low 4.0-11.0 [facility] Comment on above: Performed By: #### C BC #### [facility] [address] [place] [address] Dr. Reuben Morrison FREE THYROXINE INDEX T7on FTI 2.50 Normal 1.30-4.50 [facility] Comment on above: Performed By: #### C MP, T7, TSH, LIPID #### [facility] [address] [address] [address] Reuben Morrison T3U 39.0 % Normal 33.0-40.0 [facility] Comment on above: Performed By: #### C MP, T7, TSH, LIPID #### [facility] [address] [address] [address] Reuben Morrison T4 [Mass/Vol] 6.40 ug/dL Normal 4.50-12.10 [facility] Comment on above: Performed By: #### C MP, T7, TSH, LIPID #### [facility] [address] [place] [address] Dr. Reuben Morrison GLYCOHEMOGLOBIN A1Con 2021 ADA RECOMMENDATION SEE BELOW Normal [facility] Comment on above: Result Comment: ADA RECOMMENDED LIMIT 4.0 - 6.0 ADA THERAPEUTIC TARGET < 7.0 ACTION SUGGESTED > 7.0 Performed By: #### T ESTTOT #### [facility] [address] [place] [address] Dr. Reuben Morrison Glucose [Mass/Vol] 105 mg/dL Normal [facility] Comment on above: Performed By: #### T ESTTOT #### [facility] [address] [address] [address] Reuben Morrison HbA1c (Bld) [Mass fraction] 5.3 % Normal 4.5-6.2 [facility] Comment on above: Performed By: #### T ESTTOT #### [facility] [address] [address] [address] Reuben Morrison IRONon 03-07-2022 Iron [Mass/Vol] 100.0 ug/dL Normal 65.0-175.0 [facility] Comment on above: Performed By: #### I BLAIR, PSASC, VITB12, VITAD #### [facility] [address] [place] [address] Dr. Reuben Morrison LIPID PROFILEon 03-07-2022 CHOL-HDL RATIO NORM SEE BELOW Normal [facility] Comment on above: Result Comment: 3.3 - 4.4 LOW RISK 4.4 - 7.1 AVERAGE RISK 7.1 - 11.0 MODERATE RISK >11.0 HIGH RISK Performed By: #### C MP, T7, TSH, LIPID #### [facility] [address] [address] [address] Reuben Morrison Cholesterol [Mass/Vol] 157 mg/dL Normal <=200 [facility] Comment on above: Performed By: #### C MP, T7, TSH, LIPID #### [facility] [address] [address] [address] Reuben Morrison Cholesterol in HDL [Mass/Vol] 48 mg/dL Normal 40-60 [facility] Comment on above: Performed By: #### C MP, T7, TSH, LIPID #### [facility] [address] [place] [address] Dr. Reuben Morrison Cholesterol in LDL [Mass/Vol] 96.0 mg/dL Normal [facility] Comment on above: Performed By: #### C MP, T7, TSH, LIPID #### [facility] [address] [address] [address] Reuben Morrison Cholesterol.total/C holesterol in HDL [Mass ratio] 3.3 {ratio} Normal [facility] Comment on above: Performed By: #### C MP, T7, TSH, LIPID #### [facility] [address] [address] [address] Reuben Morrison HDL NORMAL > or = 60 mg/dl - LO W CARDIOVASCULAR RISK <40 mg/dl - HIGH CARDIOVASCULAR RISK Normal [facility] Comment on above: Performed By: #### C MP, T7, TSH, LIPID #### [facility] [address] [place] [address] Dr. Reuben Morrison LDL CALC NORMAL SEE BELOW Normal [facility] Comment on above: Result Comment: <100 mg/dl OPTIMAL 100 - 129 mg/dl NEAR OR ABOVE OPTIMAL 130 - 159 mg/dl BORDERLINE HIGH 160 - 189 mg/dl HIGH >190 mg/dl VERY HIGH Performed By: #### C MP, T7, TSH, LIPID #### [facility] [address] [place] [address] Dr. Reuben Morrison Triglyceride [Mass/Vol] 65 mg/dL Normal <=150 [facility] Comment on above: Performed By: #### C MP, T7, TSH, LIPID #### [facility] [address] [place] [address] Dr. Reuben Morrison VLDL CALC 13.0 mg/dL Normal [facility] Comment on above: Performed By: #### C MP, T7, TSH, LIPID #### [facility] [address] [place] [address] Dr. Reuben Morrison PROF 14(COMP METB)on 022 Albumin [Mass/Vol] 3.7 g/dL Normal 3.4-5.0 [facility] Comment on above: Performed By: #### C MP, T7, TSH, LIPID #### [facility] [address] [place] [address] Dr. Reuben Morrison Albumin/Globulin [Mass ratio] 1.3 {ratio} Normal [facility] Comment on above: Performed By: #### C MP, T7, TSH, LIPID #### [facility] [address] [place] [address] Dr. Reuben Morrison ALP [Catalytic activity/Vol] 53 U/L Normal 46-116 [facility] Comment on above: Performed By: #### C MP, T7, TSH, LIPID #### [facility] [address] [place] [address] Dr. Reuben Morrison ALT [Catalytic activity/Vol] 37 U/L Normal 16-63 [facility] Comment on above: Performed By: #### C MP, T7, TSH, LIPID #### [facility] [address] [place] [address] Dr. Reuben Morrison Anion gap [Moles/Vol] 11.0 mmol/L Normal [facility] Comment on above: Performed By: #### C MP, T7, TSH, LIPID #### [facility] [address] [place] [address] Dr. Reuben Morrison AST [Catalytic activity/Vol] 28 U/L Normal 15-37 [facility] Comment on above: Performed By: #### C MP, T7, TSH, LIPID #### [facility] [address] [address] [address] Reuben Morrison Bilirubin [Mass/Vol] 0.9 mg/dL Normal 0.2-1.0 [facility] Comment on above: Performed By: #### C MP, T7, TSH, LIPID #### [facility] [address] [address] [address] Reuben Morrison Calcium [Mass/Vol] 8.9 mg/dL Normal 8.5-10.1 [facility] Comment on above: Performed By: #### C MP, T7, TSH, LIPID #### [facility] [address] [place] [address] Dr. Reuben Morrison Chloride [Moles/Vol] 106 mmol/L Normal 98-107 [facility] Comment on above: Performed By: #### C MP, T7, TSH, LIPID #### [facility] [address] [place] [address] Dr. Reuben Morrison CO2 [Moles/Vol] 28.2 mmol/L Normal 21.0-32.0 [facility] Comment on above: Performed By: #### C MP, T7, TSH, LIPID #### [facility] [address] [place] [address] Dr. Reuben Morrison Creatinine [Mass/Vol] 1.55 mg/dL Critically high 0.70-1.30 [facility] Comment on above: Performed By: #### C MP, T7, TSH, LIPID #### [facility] [address] [place] [address] Dr. Reuben Morrison EGFR-AF GHANAIAN 55 mL/min/1.73m2 Critically low >=60 [facility] Comment on above: Performed By: #### C MP, T7, TSH, LIPID #### [facility] [address] [place] [address] Dr. Reuben Morrison EGFR-NON AF GHANAIAN 46 mL/min/1.73m2 Critically low >=60 [facility] Comment on above: Performed By: #### C MP, T7, TSH, LIPID #### [facility] Laboratory [address] [address] [address] Reuben Morrison Globulin (S) [Mass/Vol] 2.9 g/dL Normal [facility] Comment on above: Performed By: #### C MP, T7, TSH, LIPID #### [facility] Laboratory [address] [address] [address] Reuben Morrison Glucose [Mass/Vol] 88 mg/dL Normal 74-106 [facility] Comment on above: Performed By: #### C MP, T7, TSH, LIPID #### [facility] Laboratory [address] [address] [address] Reuben Morrison Potassium [Moles/Vol] 4.2 mmol/L Normal 3.5-5.1 [facility] Comment on above: Performed By: #### C MP, T7, TSH, LIPID #### [facility] Laboratory [address] [place] [address] Dr. Reuben Morrison Protein [Mass/Vol] 6.6 g/dL Normal 6.4-8.2 [facility] Comment on above: Performed By: #### C MP, T7, TSH, LIPID #### [facility] [address] [address] [address] Reuben Morrison Sodium [Moles/Vol] 141 mmol/L Normal 136-145 [facility] Comment on above: Performed By: #### C MP, T7, TSH, LIPID #### [facility] [address] [address] [address] Reuben Morrison Urea nitrogen [Mass/Vol] 13.0 mg/dL Normal 7.0-18.0 [facility] Comment on above: Performed By: #### C MP, T7, TSH, LIPID #### [facility] [address] [place] [address] Dr. Reuben Morrison Urea nitrogen/Creatinine [Mass ratio] 8.4 mg/mg Normal [facility] Comment on above: Performed By: #### C MP, T7, TSH, LIPID #### [facility] [address] [place] [address] Dr. Reuben Morrison TSHon 03-07-2022 TSH 0.091 uIU/mL Critically low 0.358-3.740 [facility] Comment on above: Performed By: #### C MP, T7, TSH, LIPID #### [facility] [address] [address] [address] Reuben Morrison TSH RANGE SEE BELOW Normal [facility] Comment on above: Result Comment: <0.3 4 UIU/ml HYPERTHYROID 0.34-5.60 UIU/ml EUTHYROID >5.60 UIU/ml HYPOTHYROID Performed By: #### C MP, T7, TSH, LIPID #### [facility] [address] [address] [address] Reuben Morrison VITAMIN B12on 03-07-2022 Cobalamin (Vitamin B12) [Mass/Vol] 3126.0 pg/mL Critically high 193.0-986.0 [facility] Comment on above: Performed By: #### T ESTTOT #### [facility] [address] [address] [address] Reuben Morrison VITAMIN D 25 OHon 03-07-2022 VIT D 25-OH 90.4 ng/mL Normal [facility] Comment on above: Performed By: #### T ESTTOT #### [facility] [address] [place] [address] Dr. Reuben Morrison VIT D RANGES SEE BELOW Normal [facility] Comment on above: Result Comment: <20 ng/mL Vit D deficient 20 - <30 ng/mL Vit D insufficient 30 - 100 ng/mL Vit D sufficient >100 ng/mL Potential Toxicity Performed By: #### T ESTTOT #### [facility] [address] [place] [address] Dr. Reuben Morrison XR SHOULDER RICHARD 2V [...] by: ERIN HANSEN Date: 2022-03-07 16:26 Normal [facility] Vital Signs Date Time Vital Sign Value Performing Clinician Facility 11-02-2023 10:48-0500 Body height 170.2 cm Osmin Anthony MD Work Phone: [facility] 11-02-2023 10:48-0500 Body mass index (BMI) [Ratio] 29.29 kg/m2 Osmin Anthony MD Work Phone: [facility] 11-02-2023 10:48-0500 Body weight 84.82 kg Osmin Anthony MD Work Phone: [facility] 10-16-2023 13:03-0500 Blood Pressure Location Vianey MENDOZA [facility] 10-16-2023 13:03-0500 Diastolic blood pressure 82 mm[Hg] Vianey MENDOZA [facility] 10-16-2023 13:03-0500 Heart rate 75 /min Vianey MENDOZA [facility] 10-16-2023 13:03-0500 Respiratory rate 16 /min Vianey MENDOZA [facility] 10-16-2023 13:03-0500 Systolic blood pressure 131 mm[Hg] Vianey MENDOZA [facility] 07-27-2023 10:00-0400 Body height 168.91 cm Sandoval Knight Other [email or web address] Other 07-27-2023 10:00-0400 Body mass index (BMI) [Ratio] 28.55 kg/m2 Sandoval Antonia Other [email or web address] Other 07-27-2023 10:00-0400 Body temperature 96.2 [degF] Sandoval Antonia Other [email or web address] Other 07-27-2023 10:00-0400 Body weight 81.47 kg Sandoval Antonia Other [email or web address] Other 07-27-2023 10:00-0400 Diastolic blood pressure 87 mm[Hg] Sandoval Antonia Other [email or web address] Other 07-27-2023 10:00-0400 Respiratory rate 16 /min Sandoval Antonia Other [email or web address] Other 07-27-2023 10:00-0400 SaO2% (BldA) [Mass fraction] 94 % Sandoval Antonia Other [email or web address] Other 07-27-2023 10:00-0400 Systolic blood pressure 130 mm[Hg] Sandoval Antonia Other [email or web address] Other 06-12-2023 12:25-0400 Blood Pressure Location Vianey HERRERA [facility] 06-12-2023 12:25-0400 Diastolic blood pressure 74 mm[Hg] Vianey MENDOZA [facility] 06-12-2023 12:25-0400 Heart rate 68 /min Vianey MENDOZA [facility] 06-12-2023 12:25-0400 Respiratory rate 16 /min Vianey MENDOZA [facility] 06-12-2023 12:25-0400 Systolic blood pressure 128 mm[Hg] Vianey MENDOZA [facility] 04-26-2023 11:15-0400 Body height 168.4 cm Shawanda Hernandez PA-C Work Phone: [facility] 04-26-2023 11:15-0400 Body temperature 98.01 [degF] Shawanda Hernandez PA-C Work Phone: [facility] 04-26-2023 11:15-0400 Body weight 86.95 kg Shawanda Hernandez PA-C Work Phone: [facility] 04-26-2023 11:15-0400 Diastolic blood pressure 94 mm[Hg] Shawanda Hernandez PA-C Work Phone: [facility] 04-26-2023 11:15-0400 Heart rate 74 /min Shawanda Hernandez PA-C Work Phone: [facility] 04-26-2023 11:15-0400 SaO2% (BldA) [Mass fraction] 97 % Shawanda Hernandez PA-C Work Phone: [facility] 04-26-2023 11:15-0400 Systolic blood pressure 147 mm[Hg] Shawanda Hernandez PA-C Work Phone: [facility] 12-02-2022 08:12-0500 Blood Pressure Location Vianey MENDOZA [facility] 12-02-2022 08:12-0500 Diastolic blood pressure 84 mm[Hg] Vianey MENDOZA [facility] 12-02-2022 08:12-0500 Heart rate 70 /min Vianey MENDOZA [facility] 12-02-2022 08:12-0500 Respiratory rate 16 /min Vianey MENDOZA [facility] 12-02-2022 08:12-0500 Systolic blood pressure 137 mm[Hg] Vianey MENDOZA [facility] 07-20-2022 14:11-0400 Body mass index (BMI) [Ratio] 28.98 kg/m2 Jovita Virk MD Work Phone: [facility] 07-20-2022 14:11-0400 Body temperature 98.01 [degF] Jovita Virk MD Work Phone: [facility] 07-20-2022 14:11-0400 Body weight 83.92 kg Jovita Virk MD Work Phone: [facility] 07-20-2022 14:11-0400 Diastolic blood pressure 86 mm[Hg] Jovita Virk MD Work Phone: [facility] 07-20-2022 14:11-0400 Heart rate 98 /min Jovita Virk MD Work Phone: [facility] 07-20-2022 14:11-0400 Respiratory rate 14 /min Jovita Virk MD Work Phone: [facility] 07-20-2022 14:11-0400 SaO2% (BldA) [Mass fraction] 100 % Jovita Virk MD Work Phone: [facility] 07-20-2022 14:11-0400 Systolic blood pressure 138 mm[Hg] Jovita Virk MD Work Phone: [facility] Encounters Encounter Date Encounter Type Care Provider Facility Start: 10-21-2024 ambulatory Vianey Lewisi ty:[facility] Start: 11-27-2023 ambulatory Vianey Lewisi ty:REHANA [facility] Start: 11-02-2023 End: 11-02-2023 ambulatory OSMIN ANTHONY [facility] Start: 11-02-2023 End: 11-02-2023 Patient encounter procedure Osmin Anthony MD Work Phone: [facility] Comment on above: Primary osteoarthrit is of right knee (Primary Dx) Start: 10-30-2023 End: 10-30-2023 ambulatory DEMETRA [facility] Start: 10-16-2023 End: 10-17-2023 ambulatory Vianey MENDOZA Facility:[facility] Start: 10-16-2023 End: 10-16-2023 Patient encounter procedure [facility]ian[facility] MENDOZA [facility] Start: 09-08-2023 End: 09-08-2023 ambulatory [facility] Start: 08-10-2023 End: 08-10-2023 ambulatory [facility] Start: 07-27-2023 End: 07-27-2023 ambulatory Sandoval Antonia Other [email or web address] Other Start: 07-27-2023 Office outpatient ne w 45 minutes Sandoval Antonia [facility] Start: 07-11-[address] [facility] Start: 07-11-2023 End: 07-11-2023 ambulatory [facility] Start: 07-10-2023 ambulatory Vianey MENDOZA Facili ty:[facility] Start: 06-28-2023 End: 06-28-2023 ambulatory [facility] Start: 06-12-2023 End: 06-13-2023 ambulatory Vianey MENDOZA Facility:[facility] Start: 06-12-2023 End: 06-12-2023 Patient encounter procedure Vianey MENDOZA [facility] Start: 05-30-2023 ambulatory Taylor PeñaMark Garzatania Facility:[facility] Start: 05-03-2023 End: 05-04-2023 ambulatory Taylor PeñaMark Garzatania Facility:[facility] Start: 05-03-2023 End: 05-03-2023 Patient encounter procedure Taylor Garzatania [facility] Start: 04-26-2023 End: 04-26-2023 ambulatory ILDA HENDRICKSON Facility:[facility] Start: 04-26-2023 End: 04-26-2023 Patient encounter procedure Shawanda Hernandez PA-C Work Phone: [facility] Comment on above: Height loss (Primary Dx) Start: 04-05-2023 End: 04-06-2023 ambulatory Taylor Garzatania Facility:[facility] Start: 03-08-2023 End: 03-09-2023 ambulatory KYLE RODRIGUEZ Facility:[facility] Start: 03-08-2023 End: 03-08-2023 Patient encounter procedure KYLE RODRIGUEZ [facility] Start: 02-07-2023 End: 02-08-2023 ambulatory Vianey MENDOZA Facility:[facility] Start: 01-20-2023 End: 01-21-[address] ILDA HENDRICKSON . Facility:[facility] Start: 12-02-2022 End: 12-03-2022 ambulatory Vianey MENDOZA Facility:[facility] Start: 12-02-2022 End: 12-02-2022 Patient encounter procedure Vianey MENDOZA [facility] Start: 11-18-2022 End: 11-19-[address] ILDA HENDRICKSON . Facility:[facility] Start: 11-08-2022 End: 11-09-2022 ambulatory TAYLOR JOSHUA . Facility:[facility] Start: 11-01-2022 End: 11-02-2022 ambulatory KYLE Tania RODRIGUEZ Facility:[facility] Start: 11-01-2022 End: 11-01-2022 Patient encounter procedure KYLE RODRIGUEZ [facility] Start: 10-05-2022 End: 10-05-2022 Patient encounter procedure KYLE RODRIGUEZ [facility] Start: 09-07-2022 End: 09-07-2022 Patient encounter procedure Taylor Joshua [facility] Start: 08-28-2022 Letter encounter Jovita Virk MD Work Phone: [facility] Start: 08-17-2022 End: 08-17-2022 Patient encounter procedure Taylor Joshua [facility] Start: 08-12-2022 Telephone encounter Aarti vences MA, [facility], ENGINEER CONDUCTOR Work Phone: [facility] Start: 07-21-2022 End: 07-22-[address] ILDA HENDRICKSON . 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); Cognitive changes; Body mass index (BMI) 28.0-28.9, adult Start: 07-11-2022 End: 07-11-2022 Patient encounter procedure Vianey MENDOZA [facility] Start: 06-15-2022 End: 06-16-[address] SAEED Flores Facility:[facility] Start: 06-13-2022 End: 06-13-2022 Patient encounter procedure Vianey MENDOZA [facility] Start: 04-27-2022 End: 04-28-[address] SAEED Flores Facility:[facility] Start: 04-07-2022 Refill Jovita Virk MD Work Phone: [facility] Comment on above: Refill Start: 03-21-[address] ILDA HENDRICKSON . Facili ty:[facility] Start: 03-17-[address] ILDA HENDRICKSON . Facili ty:[facility] Start: 03-09-2022 Encounter for genera l adult medical examination without abnormal findings DR ILDA HENDRICKSON . [facility] Start: 03-07-2022 End: 03-08-2022 Encounter for general adult medical examination without abnormal findings DR ILDA HENDRICKSON . Facility:[facility] Start: 03-07-2022 End: 03-08-[address] ILDA HENDRICKSON . Facility:[facility] Start: 03-01-2022 End: 03-01-2022 Patient encounter procedure Saeed Cantu Jr. [facility] Start: 02-01-2022 End: 02-01-2022 Patient encounter procedure Saeed Cantu Jr. [facility] Start: 01-04-2022 End: 01-04-2022 Patient encounter procedure Saeed Cantu Jr. [facility] Procedures Date Procedure Procedure Detail Performing Clinician Start: 11-02-2023 Follow-up visit Follow-up UNIQUE ANTHONY Start: 11-02-2023 Arthrocentesis aspir &/inj major jt/bursa w/o us Osmin Anthony MD Work Phone: Start: 09-08-2023 Follow-up visit Follow-up BAKARI ZULEYKA MAGALLANESHERMES Start: 06-15-[address] FABIÁN HENDRICKSON . Comment on above: Performed By: #### T ESTTOT #### [facility] [address] [place] [address] Dr. Reuben Morrison Start: 03-07-[address] FABIÁN HENDRICKSON . Comment on above: Performed By: #### I BLAIR, PSASC, VITB12, VITAD #### [facility] [address] [place] [address] Dr. Reuben Morrison Start: 12-21-2016 Cystourethroscopy wi th dilation of urethral stricture Saeed Cantu Jr. Arthroplasty of knee Saeed Cantu Jr. Comment on above: Left side Hernia repair Saeed vasquez Repair of musculoten dinous cuff of shoulder Saeed Cantu Jr. Plan of Treatment Date Care Activity Detail Author Start: 09-04-2031 DTaP,Tdap and Td Vaccines (2 - Tdap) DTaP,Tdap and Td Vaccines (2 - Tdap) [facility] Start: 09-04-2031 Urine microalbumin profile DTAP,TDAP,TD (2 - Tdap) [facility] Start: 06-15-2027 PROSTATE CANCER SCREENING DISCUSSION PROSTATE CANCER SCREENING DISCUSSION [facility] Start: 11-02-2024 Adult BMI Screening Adult BMI Screening [facility] Start: 11-02-2024 Tobacco Screening Tobacco Screening [facility] Start: 05-26-2023 COVID-19 Vaccine ( season) COVID-19 Vaccine ( season) [facility] Start: 05-26-2023 Influenza vaccination INFLUENZA (#1) [facility] Start: 09-25-2022 DEPRESSION ASSESSMENT DEPRESSION ASSESSMENT [facility] Start: 09-20-2022 COVID-19 Vaccine (5 - Booster for Pfizer series) COVID-19 Vaccine (5 - Booster for Pfizer series) [facility] Start: 09-20-2022 COVID-19 VACCINE (5 - Pfizer series) COVID-19 VACCINE (5 - Pfizer series) [facility] Start: 07-19-2022 End: 07-19-2022 Patient encounter procedure 07/19/2022 Office Visit Physical Medicine & Rehab/PM&R Jovita Virk MD [address] [place] [id number] [facility] Start: 06-25-2022 Influenza vaccination Influenza Vaccine (#1) [facility] Start: 05-31-2022 Shingles (RZV) Vaccine (2 of 2) Shingles (RZV) Vaccine (2 of 2) [facility] Start: 01-19-2022 COVID-19 Vaccine (4 - Booster for Pfizer series) COVID-19 Vaccine (4 - Booster for Pfizer series) [facility] Start: 11-15-2021 COVID-19 Vaccine (4 - Booster for Pfizer series) COVID-19 Vaccine (4 - Booster for Pfizer series) [facility] Start: 09-05-2021 Lipid panel Cholesterol [facility] Start: 12-04-2020 DIABETES SCREEN DIABETES SCREEN [facility] Start: 11-23-2014 Annual wellness visit Annual Wellness Visit (G0438) [facility] Start: 06-10-2012 Thyroid stimulating hormone measurement TSH [facility] Start: 2009 Measurement of occult blood in single stool specimen FIT [facility] Start: 2009 Screening for malignant neoplasm of colon [facility] Start: 2009 Shingles (RZV) Vaccine (1 of 2) Shingles (RZV) Vaccine (1 of 2) [facility] Start: 02-22-2004 COLOGUARD (FIT-DNA) COLOGUARD (FIT-DNA) [facility] Start: 02-22-2004 Colonoscopy COLONOSCOPY [facility] Start: 02-22-2004 COLORECTAL CANCER SCREENING COLORECTAL CANCER SCREENING [facility] Start: 02-22-[address] COLONOGRAPHY [facility] Start: 02-22-2004 FECAL OCCULT BLOOD FECAL OCCULT BLOOD [facility] Start: 02-22-2004 SIGMOIDOSCOPY SIGMOIDOSCOPY [facility] Start: 1994 LIPID SCREEN LIPID SCREEN [facility] Start: 1977 Adult BMI Follow Up Plan Adult BMI Follow Up Plan [facility] Start: 1977 ANNUAL PCP TEAM CHRONIC DISEASE VISIT ANNUAL PCP TEAM CHRONIC DISEASE VISIT [facility] Start: 1977 Hepatitis C screening Hepatitis C Antibody [facility] Start: 1977 HEPATITIS C SCREENING HEPATITIS C SCREENING [facility] Start: 1977 HIV SCREENING HIV SCREENING [facility] Start: 1977 SPIROMETRY SPIROMETRY [facility] Start: 1977 Tetanus + diphtheria + acellular pertussis vaccine (product) Tdap Booster [facility] Start: 1974 HIV screening HIV Test [facility] Start: 1971 Depression Screening Depression Screening [facility] Start: 1965 PNEUMOCOCCAL (1 - PCV) PNEUMOCOCCAL (1 - PCV) [facility] Start: 1959 Screening for malignant neoplasm of colon Colonoscopy [facility] Immunizations Immunization Date Immunization Notes Care Provider Fa [facility] 08-29-2022 zoster vaccine recombinant Shawanda Hernandez PA-C Work Phone: [facility] 07-25-2022 Influenza, injectabl e, Madin Milnor Canine Kidney, preservative free, quadrivalent Jovita Virk MD Work Phone: [facility] 04-05-2022 zoster vaccine recombinant Jovita Virk MD Work Phone: [facility] 09-04-2021 diphtheria, tetanus toxoids and pertussis vaccine Jovita Virk MD Work Phone: [facility] 08-25-2021 SARS-CoV-2 (COVID-19 ) Ad26 vaccine, recombinant Saeed Cantu Jr. [facility] 08-10-2021 influenza, injectabl e, quadrivalent, preservative free Jovita Virk MD Work Phone: [facility] 08-10-2021 influenza virus vaccine, unspecified formulation Jovita Virk MD Work Phone: [facility] 06-25-2021 influenza virus vaccine, unspecified formulation Saeed Cantu Jr. [facility] 12-22-2020 Pfizer (12+ yrs) SARS-COV-2 (COVID-19) vaccine, mRNA, spike protein, LNP, pres. free, 30 mcg/0.3mL dose (TXL=711) Jovita Virk MD Work Phone: [facility] 11-30-2020 Pfizer (12+ yrs) SARS-COV-2 (COVID-19) vaccine, mRNA, spike protein, LNP, pres. free, 30 mcg/0.3mL dose (GJZ=648) Jovita Virk MD Work Phone: [facility] 08-25-2020 influenza virus vaccine, unspecified formulation Saeed Cantu Jr. [facility] 06-30-2020 influenza, injectabl e, quadrivalent, preservative free Jovita Virk MD Work Phone: [facility] 12-25-2019 SARS-CoV-2 (COVID-19 ) mRNA BNT-162b2 vax Saeed Cantu Jr. [facility] 11-24-2019 SARS-CoV-2 (COVID-19 ) mRNA BNT-162b2 vax Saeed Cantu Jr. [facility] Payers Date Payer Category Payer Unknown [id number] 2022 Unknown [id number] 2017 Unknown [id number] 2017 Unknown [id number] 2013 Medicare [id number] 1959 Medicare [id number] 1959 Self-pay [id number] 1959 Unknown [id number] 2.16.84 0.1.442839.3.579.2.593 1959 Unknown [id number] 2.16.84 0.1.852164.3.579.2.593 1959 Unknown [id number] 2.16.84 0.1.503989.3.579.2.593 1959 Unknown [id number] 2.16.84 0.1.264491.3.579.2.593 1959 Unknown [id number] 2.16.84 0.1.888500.3.579.2.593 1959 Unknown [id number] 2.16.84 0.1.795432.3.579.2.593 1959 Unknown [id number] 2.16.84 0.1.435549.3.579.2.593 1959 Unknown [id number] 2.16.84 0.1.290548.3.579.2.593 1959 Unknown [id number] 2.16.84 0.1.114256.3.579.2.593 1959 Unknown [id number] 2.16.84 0.1.760832.3.579.2.593 1959 Unknown [id number] 2.16.84 0.1.737163.3.579.2.593 1959 Unknown [id number] 2.16.8 40.1.427599.3.579.2.727 1959 Unknown [id number] 2.16.8 40.1.637359.3.579.2.727 1959 Unknown [id number] 2.16.8 40.1.640192.3.579.2.727 1959 Unknown [id number] 2.16.8 40.1.898386.3.579.2. 1959 Unknown [id number] 2.16.8 40.1.756723.3.579.2. 1959 Unknown [id number] 2.16.8 40.1.605423.3.579.2. 1959 Unknown [id number] 2.16.8 40.1.454246.3.579.2. 1959 Unknown [id number] 2.16.8 40.1.938370.3.579.2. 1959 Unknown [id number] 2.16.8 40.1.626626.3.579.2. 1959 Unknown [id number] 2.16.8 40.1.023905.3.579.2. 1959 Unknown [id number] 2.16.8 40.1.828162.3.579.2. 1959 Unknown [id number] 2.16.8 40.1.087690.3.579.2. 1959 Unknown [id number] 2.16.8 40.1.605286.3.579.2.1286 Unknown [id number] 2.16.84 0.1.387268.3.579.2.593 Social History Date Type Detail Facility Start: 10-05-2021 End: 10-16-2023 Tobacco smoking status Never smoked tobacco (finding) [facility] Tobacco smoking status Never [facility] Start: 11-05-2020 End: 04-26-2023 Sex Assigned At Male [facility] Start: 08-24-2011 End: 04-26-2023 Tobacco use and exposure Smokeless tobacco non-user [facility] Start: 12-07-2017 End: 08-12-2022 Alcohol intake Not Asked [facility] Start: 1960 Sex Assigned At Not on file [facility] Start: 08-12-2022 History SDOH Social Connections Phone 1 [facility] Start: 08-12-2022 History SDOH Social Connections Get Together 2 [facility] Start: 08-12-2022 History SDOH Social Connections [employer] [facility] Start: 08-12-2022 Education 12 [facility] Start: 04-26-2023 End: 11-02-2023 Alcohol intake Current drinker of alcohol (finding) [facility] Start: 11-05-2020 End: 04-26-2023 History of Social function [facility] Start: 12-04-2017 Alcohol Comment [facility] Start: 1960 Sex Assigned At Male [facility] Start: 08-23-2021 Gender identity Identifies as male gender (finding) [facility] Medical Equipment Procedure Code Equipment Code Equipment Origin al Text Equipment Identifier Dates Brng Tib [id number] mm 0d Kn Ant - [id number] Start: 09-05-2016 Cement Bn [place] s Radpq 40g Rpl [id number] - [id number] Start: 09-05-2016 Cmpt Ptlr Thn 34 mm 3 Pg Kn Ser - [id number] Start: 09-05-2016 Goals Date Patient Goal Desired Activity /State Personal health goal Comment on above: Formatting of this n ote might be different from the original. Evaluation of progress towards goal: Maximize work with PT at discharge to strengthen L knee Functional Status Date Assessment Result Facility 10-16-2023 Functional Status N/A [facility] 06-12-2023 Functional Status N/A [facility] 12-02-2022 Functional Status N/A [facility] Clinical Notes 04-07-2022 to 11-02-2023 Osmin Anthony MD - 11/02/2023 10:50 AM EST Note Date & Type Note Facility 11-02-2023 History of Present illness Narrative Associated Order(s): $ Large Joint Injection: R knee Post-Procedure Diagnose(s): Primary osteoarthritis of right knee 11/02/2023 Vianey Lacey is a 63 y.o. male CC: Chief Complaint Patient presents with Follow-up Right knee pain - wants injection - last seen 05/24/23 HPI: Pat returns for re-evaluation of right knee pain. He was last evaluated for the right knee in April of 2023 in his knee was injected at that time.. Reports recurrent pain and ongoing functional limitation. Previous injection worked well. Interested in re-injection. Current treatment(s) include: NSAIDs. Steroid injections. Home exercise program. Activity modification. Current Outpatient Medications Medication Sig Dispense Refill carvediloL (COREG) 6.25 mg tablet Take 1 tablet (6.25 mg total) by mouth in the morning and 1 tablet (6.25 mg total) in the evening. Take with meals. ELIQUIS 5 mg tablet Take 1 tablet (5 mg total) by mouth in the morning and 1 tablet (5 mg total) before bedtime. levothyroxine (SYNTHROID, LEVOTHROID) 175 MCG tablet Take 150 mcg by mouth once daily. 11 liothyronine (CYTOMEL) 25 MCG tablet Take 1 tablet (25 mcg total) by mouth daily with breakfast. tamsulosin (FLOMAX) 0.4 mg capsule,extended release 24hr Take 1 capsule (0.4 mg total) by mouth in the morning. amantadine (SYMMETREL) 100 mg capsule Take 1 capsule (100 mg total) by mouth daily with breakfast. ascorbic acid, vitamin C, (ascorbic acid with steph hips) 500 mg tablet Take 500 mg by mouth daily. aspirin 325 mg tablet Take 1 tablet (325 mg total) by mouth in the morning. diltiazem (CARDIZEM) 120 MG tablet Take 120 mg by mouth daily. DOCOSAHEXANOIC ACID/EPA (FISH OIL ORAL) Take 1,200 mg by mouth daily. glucosamine-chondroitin 500-400 mg tablet Take 3 tablets by mouth daily. No current facility-administered medications for this visit. No Known Allergies Ht 170.2 cm (5' 7 ) Wt 84.8 kg (187 lb) BMI 29.29 kg/m Body mass index is 29.29 kg/m . Review of Systems EXAM: Right knee Skin exam is normal. No erythema or warmth to the area. Crepitus noted with range of motion. Painful passive range of motion ASSESSMENT: 1. Primary osteoarthritis of right knee PLAN: Potential non-operative and operative treatment options were reviewed for the problem. Vianey Lacey opted to continue with periodic steroid injection. Will monitor symptoms for the next several days. Exercises were recommended to maintain function. Continue NSAIDs for symptomatic relief. May return to activity as tolerated. Return for Call As Needed. He was advised to contact the office if there are any problems, questions, or concerns. *I have seen and evaluated the patient today with my physician pastrycook's assistant and agree with all aspects of the above note and care provided. I was present for all critical portions of the care and I have reviewed all the images/labs/test results and have devised the plan and made all medical decision making today. Any procedure, if performed was performed by myself. $ Large Joint Injection: R knee on 11/02/2023 10:57 AM Indications: pain Details: 22 G needle, medial approach Medications: 8 mg dexAMETHasone 4 mg/mL; 30 mg BUPivacaine HCl 0.5 % (5 mg/mL) Outcome: tolerated well, no immediate complications (Clean band-aid dressing applied to injection site. ) Procedure, treatment alternatives, risks and benefits explained, specific risks discussed (Informed consent was obtained. ). Consent was given by the patient. Patient was prepped and draped in the usual sterile fashion (Area prepped with betadine and alcohol.). No orders of the defined types were placed in this encounter. Orders Placed This Encounter Procedures $ Large Joint Injection: R knee This order was created via procedure documentation documented in this encounter [employer] 10-30-2023 Note Patient here for H&P prior to afib ablation scheduled for 11/16/[address] Garcia. Denies chest pain, SOB, palpitations, lightheadedness/syncope, and bleeding on Eliquis. Review of Systems Constitutional: Positive for malaise/fatigue. All other systems reviewed and are negative. [facility] 10-30-2023 Note [facility] Consult Note Reason for visit: Afib ablation HP and consent HPI: Vianey Lacey is a 63 y.o. [...] function. He is also recently seen a quantitative associate. They are weaning of amantadine which was [...] on file Housing Stability: Not on file Utilities: Not on file Allergies: No Known Allergies Weight: 85.3kg Visit Vitals BP 136/84 (BP Location: Left arm, Patient Position: Sitting) Pulse 81 Ht 1.727 m (5' 8 ) Wt 85.3 kg (188 lb) SpO2 99% BMI 28.59 kg/m??? Smoking Status Never BSA 2.02 m??? Meds: Current Outpatient Medications on File Prior to Visit Medication Sig Dispense Refill carvedilol (Coreg) 6.25 mg tablet Take 1 tablet (6.25 mg) by mouth with breakfast and with evening meal. 180 tablet 3 Eliquis 5 mg tablet Take 5 mg by mouth in the morning and at bedtime. levothyroxine (Synthroid, Levoxyl) 150 mcg tablet Take 137 tablets by mouth before breakfast. liothyronine (Cytomel) 25 mcg tablet Take 0.5 tablets by mouth in the morning. tamsulosin (Flomax) 0.4 mg 24 hr capsule Take 1 capsule every day by oral route for 90 days. vitamin B complex 769-7-661-2-2 mg/mL injection Refill(s) 0 amantadine (Symmetrel) 100 mg capsule Take 1 capsule every day by oral route for 30 days. No current facility-administered medications on file prior [...] Pulses Radial Pulse: normal Abdomen Inspection and Palpat (more content not included)... [facility] 10-16-2023 Hospital Discharge instructions Patient Education 10/16/2023 [...] provider. Document Revised: 01/20/2022 Document Reviewed: 01/20/2022 Review Trackers Patient Education 2022 [employer]. Follow Up Care 07/31/2023 10:30:59 With:HERRERA PRIETO, Vianey Crawford, URL Address: [facility] [address], [place] [address]- When:Within 1 Year(s) Comments:w/PSA [facility] 09-08-2023 Note [facility] Reason [...] function. He is also recently seen a quantitative associate. They are weaning of amantadine which was [...] route for 90 days. vitamin B complex 552-7-278-2-2 mg/mL injection Refill(s) 0 No current facility-administered [...] tender Musculoskeletal Ins (more content not included)... [facility] 08-10-2023 Note [facility] Cardiology Clinic Note Chief Complaint: Patient [...] function. He is also recently seen a quantitative associate. They are weaning of amantadine which was [...] days., Disp: , Rfl: vitamin B complex 328-1-125-2-2 mg/mL injection, Refill(s) 0, Disp: , Rfl: [...] reversible ischemia. Ejection fraction is normal. Transesophageal Echocardiogram-[facility] Name: VIANEY LACEY Study Date: 07/11/2023 12:24 PM B/P: 104 mmHg/74 mmHg HR: Date of : 1960 Location: [facility] Height: 68 in. Age: 63 year(s) Patient Room : Weight: 189 lb. Gender: Male Patient Status: OutPt BSA: 2 m2 Indication: Atrial Fibrillation, Pre-Cardioversion Examination: JAMIN (Transesophageal Echo / CFI) Image Quality: Good Patient Consent: Informed, written consent was obtained for the procedure s p @ c 3 Exam Location: A JAMIN was performed in the Butt Welder without complications s p @ c 3 [...] A 12-lead EKG (more content not included)... [facility] 07-27-2023 Evaluation note Encounter Date Diagnosis [...] advised him to avoid NSAIDs or any fgma-tjq-ucbxj er supplements. This deanna with the importance [...] - G47.33) Continue follow-up with the specialist. [email or web address] Other 10-17-2023 History general Narrative - Reported* Type Description Date Medical History FATIGUE Medical History EDEMA Surgical History CARDIO VERSION 07/11/2023 Surgical History LEFT KNEE REPLACEMENT Surgical History C5-C6 PLATE AND SCREWS Surgical History DOUBLE HERNIA REPAIR Surgical History RIGHT SHOULDER SCOPE Surgical History COLONOSCOPY Surgical History CYSTO SCOPE Hospitalization History SEE ABOVE [email or web address] Other 10-17-2023 NotePatient: ODILON Lacey Procedure Information Date/Time: 07/11/23 1200 Procedure: Cardioversion Location: [facility] [employer] [facility] / [facility] (Cath) Providers: George William MD Clinical information reviewed: Physical Exam Airway Mallampati: III TM distance: >3 FB Neck ROM: full Cardiovascular Rhythm: irregular Dental Pulmonary Breath sounds clear to auscultation Abdominal Abdomen: soft Anesthesia Plan ASA 3 (Conscious sedation) Anesthetic plan and risks discussed with patient. Use of blood products discussed with patient who. [facility] Cardiology Clinic Note Chief Complaint: Patient here to re-establish care for PAF. Was last seen in [address] Peck. Had echo and ECG yesterday. states they recently returned home from [place]. While they were there, he had intermittent SOB with very swollen ankles. 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 Feeling chest pressure. He is in the process of getting a cpap machine for NANCY. HPI: ODILON Lacey is a 63 y.o. male known to me from prior office visits and his - Nitza Addison who works at [employer]. He has a known h/o PAF in the past ([phone]) thought to be related to thyroid issues [...] ST-T wave changes Assessment: Paroxysmal atrial fibrillation, [id number] score of 2-3 Chest pain - unstable [...] referred to our elect (more content not included)...[facility] 06-12-2023 Hospital Discharge instructions Patient Education [...] therapy. Follow these instructions at home: Take mzqq-quv-efxllym and prescription medicines only as told by [...] provider. Document Revised: 05/13/2021 Document Reviewed: 05/13/2021 Review Trackers Patient Education 2022 [employer]. Follow Up Care 05/04/2023 10:34:04 With:HERRERA PRIETO, Vianey Crawford, URL Address: [facility] [address] , [place] [phone]- [phone] When:Within 6 Month(s) Comments:w/Testosterone Level, PSA and CBC [facility] [place] 08-02-2023 NoteHNO ID: [id number] Author: Shawanda Hernandez PA-C Service: ? Author Type: Physician Power Plant Superintendent Type: Progress Notes Filed: 04/26/2023 11:40 AM [...] Full Oblique Extension With (more content not included)...[facility] 04-26-2023 History of Present illness Narrative* [...] 2023 TIME: 11:15 AM [facility] Discharge instructions Patient Education 12/02/2022 [...] urethra. Follow these instructions at home: Take ufrc-bem-aqkzfqq and prescription medicines only as told by [...] 09/11/2006 Document Revised: 08/06/2019 Document Reviewed: 10/16/2017 Review Trackers Patient Education 2020 [employer] Follow Up Care 11/01/2022 10:29:54 With:HERRERA PRIETO, Vianey Crawford, URL Address: [address] [place] [address]- When: Unknown [facility] 11-18-2022 History of Present illness Narrative* Aarti Kelsey MA, CCC, ENGINEER CONDUCTOR - 08/12/2022 12:27 PM EST SPEECH LANGUAGE [...] stated should already be in the system. ENGINEER CONDUCTOR was speaking with patient's spouse via phone conversation attempting to troubleshoot and bypass the preliminary questionnaires. However, it was unsuccessful. ENGINEER CONDUCTOR sent patient's spouse a direct link to her cell phone to connect to video visit and the same issues arose. Patient was connected to Wifi and using an iPad in home setting. The iPad did not successfully pass the hardware test and patient/patient's spouse were never able to successfully log on. ENGINEER CONDUCTOR provided patient/patient's spouse the [facility] Support Team's contact information to reach out for further assistance with log on issues. ENGINEER CONDUCTOR will e-mail patient's spouse/patient information regarding memory strategies, etc to help in the home setting (patient's spouse reported patient tends to misplace belongings, such as keys, etc and could use a refresher on the strategies. Patient's spouse stated she will take a look at the strategies and go from there with scheduling anything further. ENGINEER CONDUCTOR provided patient/spouse with our direct line to [facility] dept if she has any further questions/concerns or needs to schedule. Patient left without being seen this date. Electronically signed by Aarti Kelsey MA, [facility], ENGINEER CONDUCTOR at 08/12/2022 12:28 PM EST documented in this [id number] Instructions* Patient Instructions* Jovita Virk MD - 07/20/2022 2:49 PM EDT -Get the sleep apnea addressed -Hold amantadine -Add memantine 5mg daily. -External referral for brain MRI. -Speech therapy for cognitive strategies. -R knee surgery. -F/up 1 year, sooner if needed. documented in this [id number] History of Present illness Narrative* Jovita Virk [...] 200 mg into the muscle once amonth. 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 Last available brain imaging [id number] showed ventriculomegaly that was deemed not hydrocephalus [...] Risk protocol implemented: No documented in this [id number] Telephone encounter Note* Telephone Encounter - Renetta [...] PCP on file No PCP on file [id number] Miscellaneous Notes* Telephone Encounter - Renetta Boyer [...] Appointments Appointment Date:02/01/2022 10:00:00 AM Scheduled Provider: Location:[facility] Appointment Type:URO Nurse Visit Appointment Date:03/01/2022 09:00:00 AM Scheduled Provider:Saeed Cantu Jr., MD Location:[facility] Appointment Type:URO Office Visit Appointment Date:04/05/2022 11:15:00 AM Scheduled Provider:Saeed Cantu Jr., MD Location:[facility] Appointment Type:URO Office Visit [facility] evaluation + Plan note Future Appointments Appointment Date:03/01/2022 09:00:00 AM Scheduled Provider:Saeed Cantu Jr., MD Location:[facility] Appointment Type:URO Office Visit Appointment Date:04/05/2022 11:15:00 AM Scheduled Provider:Saeed Cantu Jr., MD Location:[facility] Appointment Type:URO Office Visit [facility] evaluation + Plan note Future Appointments Appointment Date:04/05/2022 11:15:00 AM Scheduled Provider:Saeed Cantu Jr., MD Location:[facility] Appointment Type:URO Office Visit Diagnostic Tests Pending * Testosterone Level Total 03/01/22 [facility] evaluation + Plan note Future Appointments Appointment Date:07/11/2022 10:15:00 AM Scheduled Provider: Location:[facility] Appointment Type:URO Nurse Visit [facility] evaluation + Plan note Future Appointments Appointment Date:09/07/2022 10:00:00 AM Scheduled Provider: Location:[facility] Appointment Type:URO Nurse Visit [facility] evaluation + Plan note Future Appointments Appointment Date:10/05/2022 10:00:00 AM Scheduled Provider: Location:[facility] Appointment Type:URO Nurse Visit [facility] evaluation + Plan note Future Appointments Appointment Date:11/01/2022 10:00:00 AM Scheduled Provider: Location:[facility] Appointment Type:URO Nurse Visit [facility] evaluation + Plan note Future Appointments Appointment Date:11/30/2022 10:00:00 AM Scheduled Provider:Taylor Joshua MD Location:[facility] Appointment Type:URO Office Visit Diagnostic Tests Pending * CBC w/ Auto Diff 11/01/22 * Testosterone Level Total 11/01/22 [facility] evaluation + Plan note Diagnostic Tests Pending * Testosterone Level Total 12/17/22 * Testosterone Level Total 04/25/23 [facility] evaluation + Plan note Future Appointments Appointment Date:04/05/2023 10:00:00 AM Scheduled Provider: Location:[facility] Appointment Type:URO Nurse Visit [facility] evaluation + Plan note Future Appointments Appointment Date:05/30/2023 10:00:00 AM Scheduled Provider: Location:[facility] Appointment Type:URO Nurse Visit [facility] evaluation + Plan note Future Appointments Appointment Date:07/10/2023 09:30:00 AM Scheduled Provider: Location:[facility] Appointment Type:URO Nurse Visit Appointment Date:11/27/2023 09:45:00 AM Scheduled Provider:Vianey MENDOZA MD Location:[facility] Appointment Type:URO Office Visit Diagnostic Tests Pending * Testosterone Level Total 06/12/23 * PSA Total 06/12/23 * CBC w/ Auto Diff 06/12/23 [facility] evaluation + Plan note Future Appointments Appointment Date:10/21/2024 10:15:00 AM Scheduled Provider:Vianey MENDOZA MD Location:[facility] Appointment Type:URO Office Visit Diagnostic Tests Pending * PSA Total 10/16/23 [facility] evaluation note* 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 Body mass index (BMI) 28.0-28.9, adult [facility] Height loss- Primary Loss of height [facility] Diagnosis Primary osteoarthritis of right knee- Primary [facility] Narrative No data available for this section [facility] Hospital Discharge instructions No data available for this section [facility] InstructionsNot on filedocumented in this encounter [facility] No data available for this section [facility] Advance Directives No Advanced Directives Records FoundLatest [...] Date Activated Date Inactivated Comments Full Code 09/05/2016 8:43 PM 09/08/2016 4:31 PM Reason for Referral Specialty Diagnoses / Procedures Referred By Contac t Referred To Contact Neuroradiology Diagnoses Cognitive changes Late effect of brain injury (HCC) Jovita Virk MD [address] [place] [phone] Referral ID Status Reason Start Date Expiration Date Visits Requested Visits Authorized [id number] Authorized Patient Preference 2 07/20/2023 3 3 Comments Brain MRI without contrast. H/o TBI 2010. Continues to struggle with cognitive deficits, fatigue, impaired balance, unimproved. Please evaluate for other structural causes of these issues. Fax report to me at [phone]. Specialty Diagnoses / Procedures Referred By Stephany t Referred To Contact Speech Pathology Diagnoses Cognitive changes Late effect of brain injury (HCC) Jovita Virk MD [address] [place] [phone] [place] [address] Referral ID Status Reason Start Date Expiration Date Visits Requested Visits Authorized [id number] Pending Review [facility] 2 07/20/2023 10 10 Question Answer [...] Reason Comments Monitoring/follow-up Reason Comments back issue Reason Comments Follow-up Right knee pain - wa nts injection - last seen 05/24/23 Care Teams (unrecognized sec tion and content) Clinical Care Coordinator Relationship Specialty Start Date End Date Jovita Virk MD [address], [place] Physician Physical Medicine & Rehab/PM&R 06/30/20 Clinical Care Coordinator Relationship Specialty Start Date End Date Jovita Virk MD [address], [place] Physician Physical Medicine & Rehab/PM&R 06/30/20 Clinical Care Coordinator Relationship Specialty Start Date End Date Jovita Virk MD [address], [place] Physician Physical Medicine & Rehab/PM&R 06/30/20 Clinical Care Coordinator Relationship Specialty Start Date End Date Ilda Hendrickson MD PCP - General Family Medicine 12/04/17 Clinical Care Coordinator Relationship Specialty Start [place] [address] [place] [id number] PCP - General 07/05/16 (unrecognized sect ion and content) No Status Records FoundNo Status Records FoundNo Status Records FoundNo Status Records FoundNo Status Records FoundNo Status Records Found INFORMATION SOURCE (unrecogn ized section and content) DATE CREATED AUTHOR 01/27/2023 [facility] DATE CREATED AUTHOR AUTHOR'S ORGANIZ ATION 04/27/2023 [facility] DATE CREATED AUTHOR AUTHOR'S ORGANIZ ATION 09/23/2023 [facility] DATE CREATED AUTHOR AUTHOR'S ORGANIZ ATION 10/25/2023 [facility] DATE CREATED AUTHOR AUTHOR'S ORGANIZ ATION 11/06/[address] [facility] DATE CREATED AUTHOR AUTHOR'S ORGANBEN ATION 11/10/2023 [facility] Source Comments (unrecognize d section and content) In the event this informatio n is protected by the Federal Confidentiality of Alcohol and Drug Abuse Patient Records regulations: The Federal rules restrict any use of the information to criminally investigate or prosecute any alcohol or drug abuse patient.[facility] FOR RECORDS PERTAINING TO PATIENTS WHO [...] BE BASED ON THE PRIMARY CLINICAL RECORDS. [employer] provides no warranty or guarantee of the accuracy or completeness of information in this document.
[2023-11-10 16:19] LABS: Basophils Absolute Auto 0.1 10^3/uL (0.0-0.1); Basophils Percent Auto 1.4 % (0.2-2.0); Eosinophils Absolute Auto 0.3 10^3/uL (0.0-0.7); Eosinophils Percent Auto 5.8 % (0.9-7.0); Hematocrit 47.1 % (42.0-54.0); Hemoglobin 15.9 g/dL (14.0-18.0); Immature Granulocytes Abs Auto 0.01 10^3/uL (0.00-0.03); Immature Granulocytes Pct Auto 0.2 % (0.0-0.5); Lymphocytes Percent Auto 20.1 % (20.5-60.0); Mean Corpuscular HGB Conc 33.8 g/dL (29.9-35.2); Mean Corpuscular Hemoglobin 30.2 pg (25.9-34.0); Mean Corpuscular Volume 89.4 fL (80.0-94.0); Mean Platelet Volume 9.3 fL (9.5-13.5); Monocytes Absolute Auto 0.5 10^3/uL (0.3-0.8); Monocytes Percent Auto 9.9 % (1.7-12.0); Neutrophils Absolute Auto 3.2 10^3/uL (1.4-6.5); Neutrophils Percent Auto 62.6 % (43.0-75.0); Platelet Count 126 10^3/uL (150-450); Red Blood Count 5.27 10^6/uL (4.70-6.10); Red Cell Distribution Width 13.4 % (11.0-15.0); White Blood Count 5.2 10^3/uL (4.0-11.0)
[2023-11-10 16:34] LABS: Anion Gap 9.5; BUN Creatinine Ratio 18.5; Calcium 9.1 mg/dL (8.5-10.1); Carbon Dioxide 30.6 mmol/L (21.0-32.0); Chloride 106 mmol/L (98-107); Estimated GFR (African America >60 (>=60); Estimated GFR (Non-African Ame >60 (>=60); Glucose 82 mg/dL (74-106); Potassium 4.1 mmol/L (3.5-5.1); Sodium 142 mmol/L (136-145)
== END 2023-11-10 16:03 | disposition home or self-care (01) ==
LOC: LAB 16:02
PROVIDERS: PCP Family Medicine; Visit Provider Internal Medicine Cardiovascular Disease
DX: I48.19 Other persistent atrial fibrillation (principal)
CPT/HCPCS: 36415; 80048; 85025

== ENCOUNTER 2023-11-24 12:44 | Outpatient (OUT) | payer BC, MEDICARE, SELFPAY ==
--- OUTSIDE RECORDS SUMMARY | 2023-11-24 12:52 | XMS_ITS | CCD ---
Author Name Unknown Address [address] [place] [address] Organization [facility] Care Team Providers Care Melter Supervisor [employer] Name Role Phone Ilda Peck Primary Care Physician Moose PRIETO, Jovita Unavailable [...] HOY ., DR GONSALES Primary Care Unavailable SILVERMAN ., DR WINTERS Admitting Unavailable SILVERMAN ., DR WINTERS Attending Unavailable SILVERMAN ., DR WINTERS Consulting Unavailable HOY ., [...] Primary Care Unavailable ERIN HANSEN Consulting Unavailable SILVERMAN ., DR WINTERS Admitting Unavailable SILVERMAN ., DR WINTERS Attending Unavailable SILVERMAN ., DR WINTERS Consulting Unavailable HOY ., [...] ., DR GONSALES Primary Care Unavailable Ilda Peck MD Primary Care Provider [phone] ILDA PECK Primary Care Unavailable SHAWANDA HERNANDEZ Attending Unavailable AntoniaSandoval Unavailable Vianey SILVERMAN Attending Unavailable Vianey SILVERMAN Attending Unavailable Taylor Joshua Attending Unavailable Vianey SILVERMAN Attending Unavailable KYLE RODRIGUEZ Attending Unavailable Vianey SILVERMAN Attending Unavailable KYLE RODRIGUEZ Attending Unavailable Taylor Joshua Attending Unavailable Vianey SILVERMAN Attending Unavailable Taylor Joshua Attending Unavailable Vianey SILVERMAN Attending Unavailable Vianey SILVERMAN Attending Unavailable Ilda Peck MD Primary Care Provider [phone] OSMIN ANTHONY Attending Unavaila ble ILDA PECK Referring Unavailable ILDA PECK Primary Care Unavailable ELTAHAWY, EHAB Attending Unavailable ELTAHAWY, EHAB Referring Unavailable ELTAHAWY, EHAB Admitting Unavailable BITA, JERI Referring Unavailable JEOVANNY SCOTT Referring Unavailable JEOVANNY SCOTT Referring Unavailable ELTAHAWY, EHAB Referring Unavailable DEMETRA PORTER Attending Unavailable JEOVANNY SCOTT Attending Unavailable ELTAHAWY, EHAB Attending Unavailable ELTAHAWY, EHAB Attending Unavailable JEOVANNY SCOTT Referring Unavailable ELTAHAWY, EHAB Referring Unavailable ELTAHAWY, EHAB Referring Unavailable GISSELL CHRISTIANSON Referring Unavailable JEOVANNY SCOTT Admitting Unavailable JEOVANNY SCOTT Attending Unavailable JEOVANNY SCOTT Referring Unavailable Allergies Allergy Classification Reported Allergen(s) Allergy Type Date of Onset Reaction(s) Facility (1 source) Ciprofloxacin Drug Allergy Unknown [facility] Other (1 source) No Known Medication Allergies; Translations: [No Known Medication Allergies] Propensity to adverse reactions (disorder) [facility] Repository Medications Current Medications Medication Drug [...] q4wk, # 10 mL, Refills(s) 1, Pharmacy: [facility]/pharmacy #[id number], 167, cm, 10/05/21 11:32:00 EST, Height/Length [...] take 1 capsule by mouth once daily [place]-3 Fatty Acids (FISH OIL) 1000 MG CAPS [...] hydrochloride 5 mg oral tablet (4 sources) I-tbuofl-G-aspartat e Receptor Antagonist Start: 2 End: 2 [...] day(s), # 180 cap(s), Refills(s) 3, Pharmacy: [facility]/pharmacy #[id number], 167, cm, 10/05/21 11:32:00 EST, Height/Length Dosing, 83, kg, 10/05/21 11:32:00 EST, Weight Dosing Start Date: 11/24/21 Stop Date: 11/19/22 Status: Ordered Start: 02-08-2017 take 1 capsule by [facility] once daily tamsulosin 0.4 mg Cap 0.4 mg = 1 cap(s), Oral, Daily, # 90 cap(s), Refills(s) 3, Pharmacy: [facility]/pharmacy #[id number], 170, cm, 06/12/23 12:26:00 EDT, Height/Length Dosing, 86.5, kg, 06/12/23 12:26:00 EDT, Weight Dosing Start Date: 07/07/23 Status: Ordered take 1 capsule by [facility] every twenty-four hours in the morning tamsulosin (FLOMAX) 0.4 mg capsule,extended release 24hr Take 1 capsule (0.4 mg total) by mouth in the morning. 0 Active Comment on above: 0.4 mg once daily. testosterone cypionate 200 mg/ml injectable solution (16 sources) Androgen Start: 05-03-2023 Depo-Testosterone 200 mg/mL intramuscular solution 300 mg, IntraMuscular, q4wk, # 10 mL, Refills(s) 1, Pharmacy: [facility]/pharmacy #[id number], 170, cm, 12/02/22 8:17:00 EST, Height/Length Dosing, 83.2, kg, 12/02/22 8:17:00 EST, Weight Dosing Start Date: 05/03/23 Status: Ordered Start: 09-07-2022 Depo-Testoster one 200 mg/mL intramuscular solution 300 mg, IntraMuscular, q4wk, # 10 mL, Refills(s) 1, Pharmacy: [facility]/pharmacy #[id number], 167, cm, 10/05/21 11:32:00 EST, Height/Length Dosing, 83, kg, 05/10/22 10:08:00 EDT, Weight Dosing Start Date: 09/07/22 Status: Ordered Start: 01-04-2022 Depo-Testoster one 200 mg/mL intramuscular solution 300 mg, IntraMuscular, q4wk, # 10 mL, Refills(s) 1, Pharmacy: [facility]/pharmacy #[id number], 167, cm, 10/05/21 11:32:00 EST, Height/Length [...] capsule (1 source) Norepinephrine Reuptake Inhibitor End: 023 take 1 capsule by mouth once daily [...] take 1 capsule by mouth once daily [place] Aspartate 20 mg cap Take 1 capsule [...] Onset: 6 05-29-2019 Chronic Other circulatory disease (2 sources) Orthostatic hypotension; Translations: [Orthostatic hypotension] Onset: 4 11-30-2017 Episodic Other circulatory disease (2 sources) Personal history of other diseases of the circulatory system; Translations: [Personal history of other diseases of the circulatory system] Onset: 4 Episodic Other connective tissue disease (5 sources) [...] source) Obstructive sleep apnea (adult) (pediatric) Chronic Residual codes; unclassified (2 sources) Other specified postprocedural states; Translations: [Other specified postprocedural states] Onset: 4 Episodic Spondylosis; intervertebral disc disorders; other back problems (11 sources) Cervical spondylosis; Translations: [Other spondylosis with myelopathy, cervical region] Onset: 7 10-13-2006 Chronic Spondylosis; intervertebral disc disorders; other back problems (13 sources) Cervical spine ankylosis; Translations: [Fusion of spine, cervical region] Onset: 1 11-11-2021 Episodic Thyroid disorders (5 sources) Hypothyroidism; Translations: [Hypothyroidism, unspecified] Onset: 1 06-28-2011 Chronic Unclassified (2 sources) Other persistent atrial fibrillation; Translations: [Other persistent atrial fibrillation] Onset: 4 Past or Other Problems Problem Classification Problem [...] group vitamins] Onset: 12-21-2017 05-29-2019 Episodic Other circulatory disease (1 source) Orthostatic hypotension; Translations: [Orthostatic hypotension] Onset: 06-28-2023 Episodic Other connective tissue disease (4 sources) [...] Test Name Value Interpretation Reference Range Facility 30on 11-17-2023 30 Daily Case Managemen t Update Multidisciplinary rounds have been completed. Barriers to Discharge: Pending clinical course and improvement in clinical condition. Stroke alert called for patient and underwent CTA head/neck and CT of head. Await Cardiology recommendations. Plan for home no needs upon discharge when medically ready. Diet: Dietary Orders (From admission, onward) Start Ordered 11/16/23 182 Regular Diet Heart Healthy/HTN, CABG,Stroke, (2gNA, low fat, low cholesterol) Diet effective now Question Answer Comment Room Service? Yes Fat restriction: Heart Healthy/HTN, CABG,Stroke, (2gNA, low fat, low cholesterol) 11/16/23 182 Physician Expected Discharge Date: 11/17/2023 Discharge Delays: PT Six Click Score: 24 OT Six Click Score: PT Recommendations: OT Recommendations: New Consults: [facility] 30 The patient is Moderately Stable - Low risk of patient condition declining or worsening The patient's goals for the shift include comfort/rest The clinical goals for the shift include VSS Problem: Safety - Adult Goal: Free from fall injury Outcome: Progressing Problem: Chronic Conditions and Co-morbidities Goal: Patient's chronic conditions and co-morbidity symptoms are monitored and maintained or improved Outcome: Progressing Problem: Discharge Planning Goal: Discharge to home or other facility with appropriate resources Outcome: Progressing [facility] 30 Problem: Pain - Adul t Goal: Verbalizes/displays adequate comfort level or baseline comfort level Outcome: Progressing Problem: Safety - Adult Goal: Free from fall injury Outcome: Progressing The patient is Moderately Stable - Low risk of patient condition declining or worsening The patient's goals for the shift include comfort/rest The clinical goals for the shift include VSS Over the shift, the patient did make progress toward the following goals. [facility] BASIC METABOLIC PANELon 10-27 Anion gap [Moles/Vol] 8 mmol/L Normal 7-20 [facility] Comment on above: Performed By: #### L [id number] #### [facility] [address] [place] [address] Calcium [Mass/Vol] 8.6 mg/dL Normal 8.6-10.3 [facility] Comment on above: Performed By: #### L [id number] #### [facility] ([facility]) [address] [place] [address] Chloride [Moles/Vol] 102 mmol/L Normal 98-107 [facility] Comment on above: Performed By: #### L [id number] #### [facility] ([facility]) [address] [place] [address] CO2 [Moles/Vol] 31 mmol/L Normal 21-31 [facility] Comment on above: Performed By: #### L [id number] #### [facility] ([facility]) [address] [place] [address] Creatinine [Mass/Vol] 1.17 mg/dL Normal 0.70-1.30 [facility] Comment on above: Performed By: #### L [id number] #### [facility] ([facility]) [address] [place] [address] GLOMERULAR FILTRATION RATE ML/MIN/1.73 SQ M.PREDICTED 69.6 mL/min/1.73m*2 Normal >60.0 [facility] Comment on above: Result Comment: [facility]???s estimated glomerular filtration rate (eGFR) will no longer include consideration of race in its calculation. The National Kidney Foundation???s eGFR Task Force developed new recommendations for the estimation of the glomerular filtration rate in the [place] They recommend immediate implementation of the new equation refit without the race variable in all laboratories because the calculation does not include race. In addition to not including race in the calculation and reporting, it included diversity in its development, and has acceptable performance characteristics and potential consequences that do not disproportionately affect any one group of individuals. Performed By: #### L [id number] #### [facility] ([facility]) [address] [place] [address] Glucose [Mass/Vol] 95 mg/dL Normal 70-100 [facility] Comment on above: Performed By: #### L [id number] #### [facility] ([facility]) [address] [place] [address] Potassium [Moles/Vol] 3.8 mmol/L Normal 3.5-5.1 [facility] Comment on above: Performed By: #### L [id number] #### [facility] ([facility]) [address] [place] [address] Sodium [Moles/Vol] 137 mmol/L Normal 136-145 [facility] Comment on above: Performed By: #### L [id number] #### [facility] ([facility]) [address] [place] [address] Urea nitrogen [Mass/Vol] 19 mg/dL Normal 7-25 [facility] Comment on above: Performed By: #### L [id number] #### [facility] ([facility]) [address] [place] [address] UREA NITROGEN/CREATININE (MASS RATIO) IN SER/PLAS 16.2 [facility] Comment on above: Performed By: #### L [id number] #### [facility] ([facility]) [address] [place] [address] CBCon 11-17-2023 Erythrocyte distribution width (RBC) [Ratio] 13.7 % Normal 11.5-15.0 [facility] Comment on above: Performed By: #### L [id number] #### [facility] ([facility]) [address] [place] [address] ERYTHROCYTE MEAN CORPUSCULAR HEMOGLOBIN CONCENTRATION (G/DL) BY AUTOMATED 34.7 g/dL Normal 32.0-35.0 [facility] Comment on above: Performed By: #### L [id number] #### [facility] ([facility]) [address] [place] [address] Hematocrit (Bld) [Volume fraction] 40.3 % Normal 39.0-55.0 [facility] Comment on above: Performed By: #### L [id number] #### [facility] ([facility]) [address] [place] [address] Hemoglobin (Bld) [Mass/Vol] 14.0 g/dL Normal 13.0-17.0 [facility] Comment on above: Performed By: #### L [id number] #### [facility] ([facility]) [address] [place] [address] IMMATURE PLATELET FRACTION % 2.1 % Normal 0.8-6.3 [facility] Comment on above: Performed By: #### L [id number] #### [facility] ([facility]) [address] [place] [address] MCH (RBC) [Entitic mass] 30.4 pg Normal 27.0-33.0 [facility] Comment on above: Performed By: #### L [id number] #### [facility] ([facility]) [address] [place] [address] MCV (RBC) [Entitic vol] 87.4 fL Normal 82.0-98.0 [facility] Comment on above: Performed By: #### L [id number] #### [facility] ([facility]) [address] [place] [address] PLATELETS (10*3/UL) IN BLOOD AUTOMATED COUNT 122 10*3/uL Low 150-400 [facility] Comment on above: Performed By: #### L [id number] #### [facility] ([facility]) [address] [place] [address] RBC (Bld) [#/Vol] 4.61 10*6/uL Normal 4.20-5.70 [facility] Comment on above: Performed By: #### L [id number] #### [facility] ([facility]) [address] [place] [address] WBC (Bld) [#/Vol] 6.76 10*3/uL Normal 4.00-10.60 [facility] Comment on above: Performed By: #### L [id number] #### [facility] ([facility]) [address] [place] [address] CT HEAD WO IV CONTRASTon CT HEAD WO IV CONTRAST CT HEAD WO IV CONTRAST 11/17/2023 10:00 AM SIGNS AND SYMPTOMS: Acute vision changes, question TIA. Stroke alert TECHNIQUE: Unenhanced axial images of the brain were obtained with sagittal and coronal 2-D reformatting. Automatic exposure control (AEC) was utilized. COMPARISON: None. FINDINGS: There is no evidence for acute intracranial hemorrhage. There is no hydrocephalus, mass effect, or midline shift. Focal low-attenuation of the right basal ganglia consistent with a lacunar infarct, typically age-indeterminate. Carmichael-white differentiation is otherwise preserved with no other CT evidence for an acute infarct. There are multifocal areas of low-attenuation throughout the periventricular and subcortical white matter of both cerebral hemispheres which are nonspecific, but are most likely sequela of chronic small vessel ischemia. Left basal ganglia mineralization. IMPRESSION: 1. Technically age-indeterminate lacunar infarct of the right basal ganglia, most likely chronic. If persistent concern for acute ischemia consider MRI. 2. No evidence for acute intracranial hemorrhage. All CT scans at this facility use dose modulation, iterative reconstruction, and/or weight based dosing when appropriate to reduce radiation dose to as low as reasonably achievable. Electronically signed: Apolinar Julian. [facility] CTA HEAD W IV CONTRASTon CTA HEAD W IV CONTRAST CTA HEAD W IV CONTRAST 11/17/2023 10:00 AM CLINICAL INDICATIONS: Stroke alert, acute vision changes. TECHNIQUE: Multi-detector CT angiography axial slices of the head were obtained before and during intravenous administration of IV contrast material. Sagittal and coronal 2-D reformatting performed. Multiplanar reformatted 3-D MIP images generated under concurrent physician supervision and reviewed. All CT scans at this facility use dose modulation, iterative reconstruction, and/or weight based dosing when appropriate to reduce radiation dose to as low as reasonably achievable. COMPARISON: CT brain from the same day. FINDINGS: Mild mucosal thickening of the left maxillary sinus. No evidence for high-grade stenosis, occlusion, aneurysm, or vascular malformation of the major vessels of the [place]. Mild calcified plaque without stenosis of bilateral intracranial internal carotid arteries. IMPRESSION: No evidence for high-grade stenosis or occlusion of the major vessels of the [place]. Electronically signed: Apolinar Julian. [facility] CTA NECK W IV CONTRASTon CTA NECK W IV CONTRAST CTA NECK W IV CONTRAST 11/17/2023 10:00 AM CLINICAL INDICATIONS: Stroke alert, acute vision changes. TECHNIQUE: Multi-detector CT angiography axial slices of the neck were obtained during intravenous administration of IV contrast material. Sagittal and coronal 2-D reformatting performed. Multiplanar reformatted 3-D MIP images of the carotid and vertebral arteries generated under concurrent physician supervision and reviewed. The [place] Symptomatic Carotid Endarterectomy Trial (NASCET) method for calculating the degree of stenosis was utilized for stenosis measurements. COMPARISON: None. FINDINGS: No discrete plaque, stenosis, or dissection of the carotid or vertebral arteries. Degenerative and postoperative changes of the cervical spine. IMPRESSION: No stenosis or dissection of the carotid or vertebral arteries. All CT scans at this facility use dose modulation, iterative reconstruction, and/or weight based dosing when appropriate to reduce radiation dose to as low as reasonably achievable Electronically signed: Apolinar Julian. [facility] DSon 11-17-2023 DS --- Attestation signed by Jeovanny Scott MD at 11/23/2023 5:25 PM By using the attestations below, the signing clinician agrees that I have read and verify that the documentation has been personally reviewed by me and ensure that the documentation accurately reflects the encounter. GC: I personally saw this patient on the day of the encounter, performed the cormier portion(s) of the service and participated in the management and confirm the resident's documentation. Please note there may be an additional personal documentation from me. Admission Admitted 11/16/2023 for Persistent atrial fibrillation EPS/A fib ablation Discharge Diagnosis Atrial fibrillation (CMS/HCC), persistent S/P A fib ablation Probable TIA Vision changes Mitral valve regurg Tricuspid valve regurg Hypothyroidism H/O TBI Discharge Disposition Home or Self Care () Discharge Medications Your medication list START taking these medications Instructions Last Dose Given Next Dose Due aspirin 81 mg chewable tablet Start taking on: November 18, 2023 Chew 1 tablet (81 mg) in the morning for 98 doses. Do not start before November 18, 2023. famotidine 20 mg tablet Commonly known as: Pepcid Take 1 tablet (20 mg) by mouth in the morning and at bedtime for 58 doses. pantoprazole 40 mg EC tablet Commonly known as: ProtoNix Take 1 tablet (40 mg) by mouth before breakfast and before evening meal for 59 doses. Do not crush, chew, or split. sucralfate 1 gram tablet Commonly known as: Carafate Take 1 tablet (1 g) by mouth before breakfast, before lunch, before evening meal, and at bedtime for 52 doses. CHANGE how you take these medications Instructions Last Dose Given Next Dose Due levothyroxine 150 mcg tablet Commonly known as: Synthroid, Levoxyl What changed: how much to take Take 1 tablet (150 mcg) by mouth before breakfast. CONTINUE taking these medications Instructions Last Dose Given Next Dose Due amantadine 100 mg capsule Commonly known as: Symmetrel Eliquis 5 mg tablet Generic drug: apixaban liothyronine 25 mcg tablet Commonly known as: Cytomel tamsulosin 0.4 mg 24 hr capsule Commonly known as: Flomax vitamin B complex 707-2-000-2-2 mg/mL injection Notes to patient: Take as directed. STOP taking these medications carvedilol 6.25 mg tablet Commonly known as: Coreg Where to Get Your Medications These medications were sent to [facility] - [place], [place] - [address], [facility] [address] famotidine 20 mg tablet levothyroxine 150 mcg tablet pantoprazole 40 mg EC tablet sucralfate 1 gram tablet Information about where to get these medications is not yet available Ask your nurse or doctor about these medications aspirin 81 mg chewable tablet Activity Patient currently has no discharge activity orders Diet Patient currently has no discharge diet orders Allergies Patient has no known allergies. Hospital Course Pt presented 11/16/23 for planned elective Atrial fib ablation with Dr Scott. Pt was noted to be bradycardic post procedure therefore he was admitted overnight. Vitals and heart rate remained stable overnight, EKG this morning normal sinus rhythm, Tele overnight- Sr with PAC's= no alarms overnight. Pt admits chest tightness of med sternal area without radiation only with deep breaths. Admitted concerning vision changes about 8 am therefore stroke alert was called, Stroke team assessed pt and no neurological deficits were noted. Stat CT imaging completed and no acute concerns. Provider was notified that pt had repeat episode of vision changes again and MRI brain was ordered stat. At 3:30pm pt went to MRI, no neurological deficits noted at this time. Neuro and stroke attending evaluated pt in MRI unit and no acute concerns noted and stated pt may most likely DC home today unless acute concerns noted on MRI. Pertinent Physical Exam At Time of Discharge Physical Exam Vitals and nursing note reviewed. Constitutional: Appearance: Normal appearance. HENT: Head: Normocephalic. Mouth/Throat: Mouth: Mucous membranes are moist. Pharynx: Oropharynx is clear. Eyes: General: No visual field deficit. Extraocular Movements: Extraocular movements intact. Pupils: Pupils are equal, round, and reactive to light. Cardiovascular: Rate and Rhythm: Normal rate and regular rhythm. Pulses: Normal pulses. Heart sounds: Normal heart sounds. Pulmonary: Effort: Pulmonary effort is normal. Breath sounds: Normal breath sounds. Abdominal: General: Bowel sounds are normal. Palpations: Abdomen is soft. Musculoskeletal: Right lower leg: No edema. Left lower leg: No edema. Skin: General: Skin is (more content not included)... [facility] HEMOGLOBIN A1Con 11-17-2023 Glucose [Mass/Vol] 108 mg/dL Normal [facility] Comment on above: Performed By: #### L [id number] #### [facility]) [address] [place] [address] HbA1c (Bld) [Mass fraction] 5.4 % Normal 4.0-6.0 [facility] Comment on above: Performed By: #### L [id number] #### [facility] ([facility]) [address] [place] [address] LIPID PANELon 11-17-2023 CHOL/HDL 4.7 mg/dL Normal [facility] Comment on above: Performed By: #### L [id number] #### [facility] ([facility]) [address] [place] [address] Cholesterol [Mass/Vol] 154 mg/dL Normal 120-200 [facility] Comment on above: Performed By: #### L [id number] #### [facility] ([facility]) [address] [address] Magnesium [Mass/Vol] 138 mg/dL Normal 40-149 [facility] Comment on above: Result Comment: TRIG LYCERIDE REFERENCE RANGE: 20 YEARS AND OLDER CARDIOVASCULAR RISK LESS THAN 150 mg/dL LOW RISK 150 TO 199 mg/dL BORDERLINE RISK 200 mg/dL AND GREATER HIGH RISK Performed By: #### L [id number] #### [facility] ([facility]) [address] [place] [address] Magnesium [Mass/Vol] 93 mg/dL Normal 0-160 [facility] Comment on above: Performed By: #### L [id number] #### [facility] ([facility]) [address] [place] [address] Magnesium [Mass/Vol] 33 mg/dL Normal 23-92 [facility] Comment on above: Performed By: #### L [id number] #### [facility] ([facility]) [address] [place] [address] NON HDL CHOL. (LDL+VLDL) 121 Normal [facility] Comment on above: Performed By: #### L [id number] #### [facility] ([facility]) [address] [facility] [place] [address] TOTAL VLDL-C 28 mg/dL Normal 0-40 [facility] Comment on above: Performed By: #### L [id number] #### [facility] ([facility] [address] [place] [address] MR BRAIN WO CONTRASTon 11-17 MR BRAIN WO CONTRAST MR BRAIN WO CONTRAST 11/17/2023 4:04 PM Clinical: Migraine headache, TIA. Status post cardiac ablation. EXAM: MRI brain Comparison: none Procedure: Multiplanar spinecho MRI brain performed. No coronal sequences obtained. Findings: Ventricles are normal size. There are no intracranial masses, mass-effect, or extra-axial fluid collection, or acute hemorrhage. On FLAIR sequence, there are a few foci of increased signal in the periventricular white matter, nonspecific, possibly due to chronic microvascular disease. Probable small old lacunar infarct in region of globus pallidus. Pituitary and suprasellar regions are grossly unremarkable but detailed imaging of this area was not performed. Cranio-cervical junction is normal. There are appropriate flow voids in large cerebral vessels on T2 weighted imaging. Diffusion weighted images show no evidence for acute infarct. IMPRESSION: 1. No MRI evidence of acute infarction. Electronically signed: Mahesh Ocampo. [facility] Orders Onlyon 11-17-[id number] Lacey zonia Mcintosh 1960 Date Provider Department Center 11/17/2023 JERI HOOPER [facility]. Family History Problem Relation Age of Onset Cancer Mother Diabetes Mother Coronary artery disease Father Stroke Father Cancer Father Family Status - Relation Status Age at Mother Father [facility] HPon 11-16-2023 [facility] Electrophysiology Consult Note Reason for visit: Afib [...] function. He is also recently seen a plasma table operator. They are weaning of amantadine which [...] route for 90 days. vitamin B complex 303-6-932-2-2 mg/mL injection Refill(s) 0 No current facility-administered [...] tender Musculoskeletal Ins (more content not included)... [facility] NURSNOTEon 11-16-2023 NURSNOTE Signal Circuit Designer enters [facility] room around 1950 to assess his right groin cath site, and notices that the site is oozing. Site is still soft, no hematoma suspected. Signal [employer] Designer called cardiology to notify them of the situation. Cardiology would like the patient to lay flat for another hour, and to hold his eliquis for an hour. Rn also held pressure for 10 minuets. Signal Circuit Designer will keep cardiology updated on the situation. [facility] POCT GLUCOSE METER UNSOLICIT ED RESULTSon 11-16-2023 Glucose [Mass/Vol] 88 mg/dL Normal 70-105 [facility] Comment on above: Order Comment: Waive d Testing in the ED is performed under the ED CLIA certificate #[id number]. Result Comment: alli ia3 Performed By: #### L [id number] ####[facility] ([facility])[address] [place] [address] PROTIME-INRon 11-16-2023 INR IN PPP BY COAGULATION ASSAY 1.11 High 0.90-1.10 [facility] Comment on above: Result Comment: ACCC P RECOMMENDED INR FOR WARFARIN THERAPY CONDITION INR PROPHYLAXIS OF VENOUS THROMBOSIS 2-3 (HIGH-RISK SURGERY) TREATMENT OF VENOUS THROMBOSIS 2-3 TREATMENT OF PULMONARY EMBOLISM 2-3 PREVENTION OF SYSTEMIC EMBOLISM: 2-3 ACUTE MYOCARDIAL INFARCTION TISSUE HEART VALVES VALVULAR HEART DISEASE ATRIAL FIBRILLATION RECURRENT SYSTEMIC EMBOLISM MECHANICAL HEART VALVE 2.5-3.5 FROM: ORAL ANTICOAGULANTS. MECHANISM OF ACTION, CLINICAL EFFECTIVENESS, AND OPTIMAL THERAPEUTIC RANGE. CHEST 1995;108:231S-246S. Performed By: #### L [id number] #### [facility] [address] [place] [address] PROTHROMBIN TIME (PT) IN PPP BY COAGULATION ASSAY 14.3 Seconds Normal 12.3-14.8 [facility] Comment on above: Performed By: #### L [id number] #### [facility] ([facility]) [address] [place] [address] [id number] 11-10-2023 [id number] ARRIVAL TIME GIVEN A T 1100 MEDICATIONS TO TAKE DAY OF SURGERY WITH SIP OF WATER COREG HOLD VITAMINS AND SUPPLEMENTS 5 DAYS PRIOR TO PROCEDURE HOLD ALL ANTI INFLAMMATORIES ETC:MOTRIN, ADVIL, ALEVE, FOR 5 DAYS PRIOR TO PROCEDURE IF YOU ARE GOING HOME AFTER YOUR SURGERY OR PROCEDURE, FOR YOUR SAFETY, YOUR SURGERY WILL BE CANCELLED IF BOTH OF THE FOLLOWING ARE NOT AVAILABLE: An adult ready mix truck driver over the age of 18, that can receive information about your care after surgery, and drive you home. A responsible adult to stay with you for 24 hours in case of an emergency. Can be same as above. The highest risk of complications is within the first 24 hours after sedation/anesthesia. Nothing to eat or drink after midnight the night before surgery. This includes gum, candy, mints, and lozenges. No alcohol, marijuana, or tobacco products including vaping for 24 hours. Please brush your teeth; don't swallow the toothpaste or water. If you use dentures, wear them but do not use paste. Please leave any other removable dental hardware at home. Do not put in contact lenses. Do not wear perfume, make-up, nail equatorial guinean, or lotions on the day of your surgery or procedure. Follow skin-prep/wipe instructions as below if required. Bring with you: *Insurance card *Photo ID *Medication list *Co-pay for visit/prescriptions If applicable: *Rescue inhalers *Green bracelet from lab *CPAP or BiPAP machine, if staying overnight *Any braces, splints, or equipment ordered preoperatively *Remote controls for implanted devices Leave at home: *Purse/Wallet/Bowman- unless needed for co-pay *Cell phone (can leave with family/friend or place in locker if needed) *Jewelry (including piercings and wedding bands) *If not possible, ask the person who is waiting with you to keep them Children under the age of 12 will not be allowed into patient care areas. We will call you between 3pm and 4pm the day before your surgery to give you an arrival time. If you do not receive this call, have any questions, or need to make any changes, please call [phone]. Notify your surgeon if you develop any illness such as a cold, cough, fever, sore throat or vomiting between now and your surgery. Thank you for entrusting us with your care. [facility] Surgical Services Team [facility] $ Large Joint Injection: R k neeon 11-02-2023 Osmin Juarez ch, MD 11/02/2023 11:03 [...] with betadine and alcohol.). MANUALLY TRANSCRIBED RESULTS [facility] Office Visiton 10-30-2023 Follow-up visit [id number] Lane Lacey 1960 M Date Provider Department Center 10/30/2023 Cal-DEMETRA PORTER C[facility] Family History Problem Relation Age of Onset Cancer Mother Diabetes Mother Coronary artery disease Father Stroke Father Cancer Father Family Status - Relation Status Age at Mother Father Level of Service:83900 SD OFFICE/OUTPATIENT ESTABLISHED MOD MDM 30 MIN [facility] Physician Referralon 024 Physician Referral [id number] IFF Normal [facility] Lab Reportson 10-17-2023 Lab Reports [id number] FF Normal [facility] Ambulatory Visit Summaryon 0 10-16-2023 Ambulatory Visit Summary VIANEY LACEY :1960 Visit Date:10/16/2023 Ambulatory Visit Instructions Your Diagnosis BPH with urinary obstruction Hypogonadism male Urge incontinence ED (erectile dysfunction) Tests Performed Urnls Dip Stick Auto w/o Microscopy POC 90110 Your Care Team Attending Physician - Vianey SILVERMAN MD Primary Care Physician - Ilda Peck MD This Is Your Medications List tamsulosin [...] PRIETO, Vianey Crawford Where: [facility] Patient Educationon 10-16-19 Patient Education Obstetrics and [...] provider. Document Revised: 01/20/2022 Document Reviewed: 01/20/2022 [employer] Patient Education ? 2022 [employer]. Normal [facility] Urology Office/Clinic Noteon 10-16-2023 Urology Office/Clinic [...] pt's heart. Follow-up With When Contact Information HERRERA PRIETO, Vianey Crawford, URL In 1 year [facility] [address] [place] [address]- Additional Instructions: w/PSA Patient Education Kegel Diane I, Megan Brunson , personally scribed for Dr. Silverman on 10/16/2023 14:05:07. . Documentation recorded by the scribMgean conn, accurately reflects the services(s) I performed and decisions made by me. Problem List/Past Medical History Ongoing BPH with urinary obstruction ED (erectil (more content not included)... [facility] Comment on above: Result Comment: Elec tronically Signed By: Vianey SILVERMAN MD\.br\Date and Time Signed: 10/16/23 14:10 EST\.br\Electronically Co-Signed By: Megan Brunson.br\Date and Time Co-Signed: 10/16/23 14:05 EST Letter (Out)on 10-13-2023 Letter (Out) [id number] Lane Lacey 1960 Date Provider Department Center 10/13/2023 None-None [facility] Family History Problem Relation Age of Onset Cancer Mother Diabetes Mother Coronary artery disease Father Stroke Father Cancer Father Family Status - Relation Status Age at Mother Father [facility] Orders Onlyon 09-27-[id number]acey 1960 Date Provider Department Center 09/27/2023 Heriberto-ISHMAEL SY MAXWELL [facility] Family History Problem Relation Age of Onset Cancer Mother Diabetes Mother Coronary artery disease Father Stroke Father Cancer Father Family Status - Relation Status Age at Mother Father [facility] Prep for Procedureon 024 Prep for Procedure [id number] [address] Lacey 1960 Provider Department Center 09/27/2023 Alfredo-TAYLOR PEREZ [facility] VASC LAB OR HeartVAS Family History Problem Relation Age of Onset Cancer Mother Diabetes Mother Coronary artery disease Father Stroke Father Cancer Father Family Status - Relation Status Age at Mother Father [facility] Telephone Encounteron 2022 Local Intermodal Truck Driver Authentication Interface Message Text Patient has not been seen by this specialist in more than 1 year. Please contact patient to schedule office visit. Thank you Normal [facility] Office Visiton 09-08-2023 Follow-up visit [id number] Lane Lacey 1960 Provider Department Center 09/08/2023 [facility]-JEOVANNY SCOTT Family History Problem Relation Age of Onset Cancer Mother Diabetes Mother Coronary artery disease Father Stroke Father Cancer Father Family Status - Relation Status Age at Mother Father Level of Service:96568 SD OFFICE/OUTPATIENT NEW MODERATE MDM 45 MINUTES Reason for Visit and Comments: Follow-up [[id number]] - Seen George Loza 08/10/2023 [facility] Office Visiton 08-10-2023 Follow-up visit [id number] Lane Lacey 1960 M Date Provider Department Center 08/10/2023 Isa-GEORGE [facility] Family History Problem Relation Age of Onset Cancer Mother Diabetes Mother Coronary artery disease Father Stroke Father Cancer Father Family Status - Relation Status Age at Mother Father Level of Service:70433 SD OFFICE/OUTPATIENT ESTABLISHED MOD MDM 30-39 MIN [facility] Orders Onlyon 08-10-2023 Orders Only [id number] AbhijitLane Mcintosh 1960 M Date Provider Department [place] 08/10/2023 NEO TAYLOR MAXWE[facility] Family History Problem Relation Age of Onset Cancer Mother Diabetes Mother Coronary artery disease Father Stroke Father Cancer Father Family Status - Relation Status Age at Mother Father [facility] HPon 07-11-2023 HP H&P reviewed. The patient was examined and there are no changes to the H&P. George Loza MD, MPH, [facility], [facility] Interventional Cardiology Pager Email: [email or web address] [facility] NURSNOTEon 07-11-2023 NURSNOTE Pt performed and pas sed bedside swallow study. RN educated pt on d/c instructions. RN encouraged pt to voice any questions or concerns. Pt verbalizes no questions or concerns at this time. Pt was wheeled off of unit with all of belongings. [facility] NURSNOTE Pre certification no t yet gone through, per Dr. Loza he will ensure the bill is taken care of. [facility] Orders Onlyon 07-11-2023 Orders Only [id number] AbhijitLane Mcintosh 1960 M Date Provider Department [place] 07/11/[address] [facility] INF Stephanie Heal Family History Problem Relation Age of Onset Cancer Mother Diabetes Mother Coronary artery disease Father Stroke Father Cancer Father Family Status - Relation Status Age at Mother Father [facility] Telephoneon 07-10-[id number] Lacey 1960 Date Provider Department Center 07/10/2023 XU HAY [facility] VASC LAB OR HeartVAS Family History Problem Relation Age of Onset Cancer Mother Diabetes Mother Coronary artery disease Father Stroke Father Cancer Father Family Status - Relation Status Age at Mother Father [facility] Letter (Out)on 07-05-2023 Letter (Out) [id number] Lane Lacey 1960 M Date Provider Department Center 07/05/2023 None-None [facility] Family History Problem Relation Age of Onset Cancer Mother Diabetes Mother Coronary artery disease Father Stroke Father Cancer Father Family Status - Relation Status Age at Mother Father [facility] 36on 07-03-2023 36 Patient's chantal tejada stating Dr. Peck stopped lasix after lab results today (in media coordinator for your review). also wants to [...] to check on status of cath. Thanks. [facility] HP 06-28-2023 [facility] Cardiology Clinic Note Chief Complaint: Patient here to re-establish care for PAF. Was last seen in [address] Peck. Had echo and ECG yesterday. states they recently returned home from [place]. While they were there, he had intermittent SOB with very swollen ankles. 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 Feeling chest pressure. He is in the process of getting a cpap machine for NANCY. HPI: ODILON Lacey is a 63 y.o. male known to me from prior office visits and his - Nitza Addison who works at [employer]. He has a known h/o PAF in the past ([phone]) thought to be related to thyroid issues [...] ST-T wave changes Assessment: Paroxysmal atrial fibrillation, [id number] score of 2-3 Chest pain - unstable [...] our elect (more content not included)... [facility] Office Visiton 06-28-2023 Follow-up visit [id number] Lane Lacey 1960 [facility] Provider Department Center 06/28/2023 271-GEORGE LOZA Family History Problem Relation Age of Onset Cancer Mother Diabetes Mother Coronary artery disease Father Stroke Father Cancer Father Family Status - Relation Status Age at Mother Father Level of Service:60845 SD OFFICE/OUTPATIENT [facility] 60-74 MINUTES [facility] Orders Onlyon 06-28-[id number]acey 1960 [facility] Provider Department Center 06/28/2023 ENO TAYLOR Family History Problem Relation Age of Onset Cancer Mother Diabetes Mother Coronary artery disease Father Stroke Father Cancer Father Family Status - Relation Status Age at Mother Father [facility] Patient Educationon 06-12-20 Patient Education Urology [...] Follow these instructions at home: ? Take zcdp-lcq-qyitpsy and prescription medicines only as told by [...] Document (more content not included)... Normal [facility] Urology Office/Clinic Noteon 06-12-2023 Urology [...] In 6 months [facility] [address] [place] [address] [id number] Additional Instructions: w/Testosterone Level, PSA and CBC Patient Education Hypogonadism, Male I, Megan Brunson , personally scribed for Dr. Silverman on 06/12/2023 13:19:35. . Documentation recorded by the Megan ge, accurately reflects the services(s) I performed and [...] tamsulosin 0.4 m (more content not included)... [facility] Comment on above: Result Comment: Elec tronically Signed By: Vianey SILVERMAN MD\.br\Date and Time Signed: 06/12/23 13:23 EDT\.br\Electronically Co-Signed By: Megan Brunson\.br\Date and Time Co-Signed: 06/12/23 13:20 EDT Lab Reportson 05-23-2023 Lab Reports [id number] D:127 [facility] Ambulatory Visit Summaryon 0 05-03-2023 Ambulatory Visit Summary VIANEY LACEY :1960 Visit Date:05/03/2023 Ambulatory Visit Instructions Your Diagnosis Hypogonadism male Your Care Team Attending Physician - Tres PRIETO, Tyalor Hatfield Primary Care Physician - Ilda Peck MD This Is Your Medications List amantadine [...] 10:00 AM EDT Where: [facility] 04-26-2023 CNOV Office Visit (SPMESH ) CORINNEVIANEY AGUILERA ([id number]) 1960 M Date Time Provider Department 04/26/23 11:00 AM [facility], we recorded the [...] palpable masses (more content not included)... Normal [facility] [place] [facility] Lab Reportson 01-24-2023 Lab Reports [id number] D:127 Normal [facility] TESTOSTERONE, TOTALon 2022 Testosterone [Mass/Vol] 347 ng/dL Normal 264-916 [facility] Comment on above: Result Comment: Adul t male reference interval is based on a population of healthy nonobese males (BMI <30) between 19 and 39 years old. Brad et.al. JCEM 2017,102;2654-2895. PMID: [id number]. Performed By: #### T ESTTOT #### [facility] [address] [place] [address] Dr. Reuben Morrison Pre-Certification Formon Pre-Certification Form [id number] :127 Normal [facility] Pre-Certification Form [id number] D:127 [facility] Ambulatory Visit Summaryon 0 12-02-2022 Ambulatory Visit Summary VIANEY LACEY :1960 Visit Date:12/02/2022 Ambulatory Visit Instructions Your Diagnosis BPH with urinary obstruction Hypogonadism male Tests Performed Urnls Dip Stick Auto w/o Microscopy POC 64734 Your Care Team Attending Physician - Vianey SILVERMAN MD Primary Care Physician - Ilda Peck MD This Is Your Medications List testosterone [...] with HERRERA PRIETO, DARA Doty When: Where: [address] [place] [address]- Medications What How Much When Instructions Unchanged [...] Urnls Dip Stick Auto w/o Microscopy POC 90018 (12/02/2022) Bilirubin Urine Dipstick - Negative Blood Urine Dipstick - Negative Glucose Urine Dipstick - Negative Ketones Urine Dipstick - Negative Leukocytes Urine Dipstick - Negative Nitrite Urine Dipstick - Negative Protein Urine Dipstick - Negative Specific Homeworth Urine Dipstick - >=1.030 Urine Appearance Urine [...] post-void bladder (more content not included)... [facility] Patient Educationon 12-03-19 Patient Education Urology [...] Follow these instructions at home: ? Take mbgr-fom-ifhvuvl and prescription medicines only as told by [...] d (more content not included)... Normal [facility] Urology Office/Clinic Noteon 12-02-2022 Urology [...] and history for this patient from Dr. Silverman. I have reviewed and verified the staff [...] Contact Information HERRERA PRIETO, Vianey Crawford, URL [address] [place] [address]- Additional Instructions: 6 months w/ testosterone Patient Education Benign Prostatic Hyperplasia I, Mirian Shepard, personally scribed for Dr. Silverman on 12/02/2022 08:54:27. . Documentation recorded by the Mirian ge, accurately reflects the services(s) I performed and decisions made by me. Authenticated by Dr. Silverman on 12/02/2022 09:04:48. Problem List/Past Medical History [...] qWeek Allergie (more content not included)... [facility] Comment on above: Result Comment: Elec tronically Signed By: Vianey SILVERMAN MD\.br\Date and Time Signed: 12/02/22 09:04 EST\.br\Electronically Co-Signed By: Mirian Shepard\.br\Date and Time Co-Signed: 12/02/22 09:01 EST Lab Reportson 11-29-2022 Lab Reports [id number] D:127 Normal [facility] XR TSPINE 3 VIEWSon 11-18-19 XR [...] ALFREDITO LOAIZA Date: 2022-11-18 16:11 Normal [facility] TESTOSTERONE, TOTALon 2022 Testosterone [Mass/Vol] 993 ng/dL Critically high 264-916 [facility] Comment on above: Result Comment: Adul t male reference interval is based on a population of healthy nonobese males (BMI <30) between 19 and 39 years old. Brad et.al. JCEM 2017,102;5143-2149. PMID: [id number]. Performed By: #### T ESTTOT #### [facility] [address] [place] [address] Dr. Reuben Morrison Ambulatory Visit Summaryon 0 11-01-2022 Ambulatory Visit Summary CORINNEALE VIANEY Dayna :1960 Visit Date:11/01/2022 Ambulatory Visit Instructions Your Diagnosis Hypogonadism male Your Care Team Attending Physician - KYLE RODRIGUEZ PA-C Primary Care Physician - Ilda Peck MD This Is Your Medications List amantadine [...] PRIETO, Taylor Hatfield Where: [facility] Normal [facility] CBC AUTO DIFFon 06-15-2022 BASO # 0.0 103/ul Normal 0.0-0.1 [facility] Comment on above: Performed By: #### C BC #### [facility] [address] [address] [address] Reuben Morrison Basophils/100 WBC (Bld) 0.4 % Normal 0.2-2.0 [facility] Comment on above: Performed By: #### C BC #### [facility] [address] [address] [address] Reuben Morrison EO # 0.1 103/ul Normal 0.0-0.7 [facility] Comment on above: Performed By: #### C BC #### [facility] [address] [address] [address] Reuben Morrison Eosinophils/100 WBC (Bld) 1.3 % Normal 0.9-7.0 [facility] Comment on above: Performed By: #### C BC #### [facility] [address] [address] [address] Reuben Morrison Erythrocyte distribution width (RBC) [Ratio] 14.3 % Normal 11.0-15.0 [facility] Comment on above: Performed By: #### C BC #### [facility] [address] [address] [address] Reuben Morrison Hematocrit (Bld) [Volume fraction] 48.9 % Normal 42.0-54.0 [facility] Comment on above: Performed By: #### C BC #### [facility] [address] [address] [address] Reuben Morrison Hemoglobin (Bld) [Mass/Vol] 16.6 g/dL Normal 14.0-18.0 [facility] Comment on above: Performed By: #### C BC #### [facility] [address] [address] [address] Reuben Morrison IG # 0.01 10e3/ul Normal 0.00-0.03 [facility] Comment on above: Performed By: #### C BC #### [facility] [address] [place] [address] Dr. Reuben Morrison IG % 0.2 % Normal 0.0-0.5 [facility] Comment on above: Performed By: #### C BC #### [facility] [address] [place] [address] Dr. Reuben Morrison LYMPH # 1.1 103/ul Critically low 1.2-3.8 [facility] Comment on above: Performed By: #### C BC #### [facility] [address] [place] [address] Dr. Reuben Morrison Lymphocytes/100 WBC (Bld) 24.3 % Normal 20.5-60.0 [facility] Comment on above: Performed By: #### C BC #### [facility] [address] [place] [address] Dr. Reuben Morrison MANUAL DIFF REQ NO Normal [facility] Comment on above: Performed By: #### C BC #### [facility] [address] [place] [address] Dr. Reuben Morrison MCH (RBC) [Entitic mass] 29.5 pg Normal 25.9-34.0 [facility] Comment on above: Performed By: #### C BC #### [facility] [address] [place] [address] Dr. Reuben Morrison MCHC (RBC) [Mass/Vol] 33.9 g/dL Normal 29.9-35.2 [facility] Comment on above: Performed By: #### C BC #### [facility] [address] [place] [address] Dr. Reuben Morrison MCV (RBC) [Entitic vol] 86.9 fL Normal 80.0-94.0 [facility] Comment on above: Performed By: #### C BC #### [facility] [address] [place] [address] Dr. Reuben Morrison MONO # 0.5 103/ul Normal 0.3-0.8 [facility] Comment on above: Performed By: #### C BC #### [facility] [address] [address] [address] Reuben Morrison Monocytes/100 WBC (Bld) 9.6 % Normal 1.7-12.0 [facility] Comment on above: Performed By: #### C BC #### [facility] [address] [address] [address] Reuben Morrison NEUT # 3.0 103/ul Normal 1.4-6.5 [facility] Comment on above: Performed By: #### C BC #### [facility] [address] [address] [address] Reuben Morrison Neutrophils/100 WBC (Bld) 64.2 % Normal 43.0-75.0 [facility] Comment on above: Performed By: #### C BC #### [facility] [address] [place] [address] Dr. Reuben Morrison Platelet mean volume (Bld) [Entitic vol] 9.7 fL Normal 9.5-13.5 [facility] Comment on above: Performed By: #### C BC #### [facility] [address] [place] [address] Dr. Reuben Morrison PLT 130 103/ul Critically low 150-450 [facility] Comment on above: Result Comment: plts . appear slightly decreased Performed By: #### C BC #### [facility] [address] [place] [address] Dr. Reuben Morrison RBC 5.63 106/ul Normal 4.70-6.10 [facility] Comment on above: Performed By: #### C BC #### [facility] [address] [place] [address] Dr. Reuben Morrison WBC 4.7 103/ul Normal 4.0-11.0 [facility] Comment on above: Performed By: #### C BC #### [facility] [address] [place] [address] Dr. Reuben Morrison TESTOSTERONE, TOTALon 2021 Testosterone [Mass/Vol] 404 ng/dL Normal 264-916 [facility] Comment on above: Result Comment: Adul t male reference interval is based on a population of healthy nonobese males (BMI <30) between 19 and 39 years old. Brad, et.al. JCEM 2017,102;8153-2946. PMID: [id number]. Performed By: #### T ESTTOT #### [facility] [address] [address] [address] Reuben Morrison CBC AUTO DIFFon 04-27-2022 BASO # 0.0 103/ul Normal 0.0-0.1 [facility] Comment on above: Performed By: #### T ESTTOT #### [facility] [address] [place] [address] Dr. Reuben Morrison Basophils/100 WBC (Bld) 1.0 % Normal 0.2-2.0 [facility] Comment on above: Performed By: #### T ESTTOT #### [facility] [address] [place] [address] Dr. Reuben Morrison EO # 0.1 103/ul Normal 0.0-0.7 [facility] Comment on above: Performed By: #### T ESTTOT #### [facility] [address] [place] [address] Dr. Reuben Morrison Eosinophils/100 WBC (Bld) 1.8 % Normal 0.9-7.0 [facility] Comment on above: Performed By: #### T ESTTOT #### [facility] [address] [place] [address] Dr. Reuben Morrison Erythrocyte distribution width (RBC) [Ratio] 14.0 % Normal 11.0-15.0 [facility] Comment on above: Performed By: #### T ESTTOT #### [facility] [address] [address] [address] Reuben Morrison Hematocrit (Bld) [Volume fraction] 47.3 % Normal 42.0-54.0 [facility] Comment on above: Performed By: #### T ESTTOT #### [facility] [address] [place] [address] Dr. Reuben Morrison Hemoglobin (Bld) [Mass/Vol] 16.2 g/dL Normal 14.0-18.0 [facility] Comment on above: Performed By: #### T ESTTOT #### [facility] [address] [address] [address] Reuben Morrison IG # 0.01 10e3/ul Normal 0.00-0.03 [facility] Comment on above: Performed By: #### T ESTTOT #### [facility] [address] [address] [address] Reuben Morrison IG % 0.3 % Normal 0.0-0.5 [facility] Comment on above: Performed By: #### T ESTTOT #### [facility] [address] [place] [address] Dr. Reuben Morrison LYMPH # 1.1 103/ul Critically low 1.2-3.8 [facility] Comment on above: Performed By: #### T ESTTOT #### [facility] [address] [place] [address] Dr. Reuben Morrison Lymphocytes/100 WBC (Bld) 26.6 % Normal 20.5-60.0 [facility] Comment on above: Performed By: #### T ESTTOT #### [facility] [address] [place] [address] Dr. Reuben Morrison MANUAL DIFF REQ NO Normal [facility] Comment on above: Performed By: #### T ESTTOT #### [facility] [address] [address] [address] Reuben Morrison MCH (RBC) [Entitic mass] 29.5 pg Normal 25.9-34.0 [facility] Comment on above: Performed By: #### T ESTTOT #### [facility] [address] [place] [address] Dr. Reuben Morrison MCHC (RBC) [Mass/Vol] 34.2 g/dL Normal 29.9-35.2 [facility] Comment on above: Performed By: #### T ESTTOT #### [facility] [address] [place] [address] Dr. Reuben Morrison MCV (RBC) [Entitic vol] 86.2 fL Normal 80.0-94.0 [facility] Comment on above: Performed By: #### T ESTTOT #### [facility] [address] [place] [address] Dr. Reuben Morrison MONO # 0.4 103/ul Normal 0.3-0.8 [facility] Comment on above: Performed By: #### T ESTTOT #### [facility] [address] [place] [address] Dr. Reuben Morrison Monocytes/100 WBC (Bld) 9.0 % Normal 1.7-12.0 [facility] Comment on above: Performed By: #### T ESTTOT #### [facility] [address] [place] [address] Dr. Reuben Morrison NEUT # 2.5 103/ul Normal 1.4-6.5 [facility] Comment on above: Performed By: #### T ESTTOT #### [facility] [address] [place] [address] Dr. Reuben Morrison Neutrophils/100 WBC (Bld) 61.3 % Normal 43.0-75.0 [facility] Comment on above: Performed By: #### T ESTTOT #### [facility] [address] [place] [address] Dr. Reuben Morrison Platelet mean volume (Bld) [Entitic vol] 9.6 fL Normal 9.5-13.5 [facility] Comment on above: Performed By: #### T ESTTOT #### [facility] [address] [place] [address] Dr. Reuben Morrison PLT 128 103/ul Critically low 150-450 [facility] Comment on above: Performed By: #### T ESTTOT #### [facility] [address] [place] [address] Dr. Reuben Morrison RBC 5.49 106/ul Normal 4.70-6.10 [facility] Comment on above: Performed By: #### T ESTTOT #### [facility] [address] [place] [address] Dr. Reuben Morrison WBC 4.0 103/ul Normal 4.0-11.0 [facility] Comment on above: Performed By: #### T ESTTOT #### [facility] [address] [place] [address] Dr. Reuben Morrison INSULINon 03-08-2022 Insulin 4.3 uIU/mL Normal 2.6-24.9 [facility] Comment on above: Performed By: #### T ESTTOT #### [facility] [address] [place] [address] Dr. Reuben Morrison TESTOSTERONE, TOTALon 2021 Testosterone [Mass/Vol] ng/dL Critically high 264-916 [facility] Comment on above: Result Comment: Adul t male reference interval is based on a population of healthy nonobese males (BMI <30) between 19 and 39 years old. stephania Salinas.al. JCEM 2017,102;2350-3178. PMID: [id number]. Performed By: #### T ESTTOT #### [facility] [address] [place] [address] Dr. Reuben Morrison CBC AUTO DIFFon 03-07-2022 BASO # 0.1 103/ul Normal 0.0-0.1 [facility] Comment on above: Performed By: #### C BC #### [facility] [address] [place] [address] Dr. Reuben Morrison Basophils/100 WBC (Bld) 1.4 % Normal 0.2-2.0 [facility] Comment on above: Performed By: #### C BC #### [facility] [address] [place] [address] Dr. Reuben Morrison EO # 0.1 103/ul Normal 0.0-0.7 [facility] Comment on above: Performed By: #### C BC #### [facility] [address] [place] [address] Dr. Reuben Morrison Eosinophils/100 WBC (Bld) 1.4 % Normal 0.9-7.0 [facility] Comment on above: Performed By: #### C BC #### [facility] [address] [place] [address] Dr. Reuben Morrison Erythrocyte distribution width (RBC) [Ratio] 14.7 % Normal 11.0-15.0 [facility] Comment on above: Performed By: #### C BC #### [facility] [address] [place] [address] Dr. Reuben Morrison Hematocrit (Bld) [Volume fraction] 49.8 % Normal 42.0-54.0 [facility] Comment on above: Performed By: #### C BC #### [facility] [address] [place] [address] Dr. Reuben Morrison Hemoglobin (Bld) [Mass/Vol] 16.4 g/dL Normal 14.0-18.0 [facility] Comment on above: Performed By: #### C BC #### [facility] [address] [place] [address] Dr. Reuben Morrison IG # 0.01 10e3/ul Normal 0.00-0.03 [facility] Comment on above: Performed By: #### C BC #### [facility] [address] [place] [address] Dr. Reuben Morrison IG % 0.3 % Normal 0.0-0.5 [facility] Comment on above: Performed By: #### C BC #### [facility] [address] [place] [address] Dr. Reuben Morrison LYMPH # 0.9 103/ul Critically low 1.2-3.8 [facility] Comment on above: Performed By: #### C BC #### [facility] [address] [place] [address] Dr. Reuben Morrison Lymphocytes/100 WBC (Bld) 24.7 % Normal 20.5-60.0 [facility] Comment on above: Performed By: #### C BC #### [facility] [address] [place] [address] Dr. Reuben Morrison MANUAL DIFF REQ NO Normal [facility] Comment on above: Performed By: #### C BC #### [facility] [address] [place] [address] Dr. Reuben Morrison MCH (RBC) [Entitic mass] 28.9 pg Normal 25.9-34.0 [facility] Comment on above: Performed By: #### C BC #### [facility] [address] [place] [address] Dr. Reuben Morrison MCHC (RBC) [Mass/Vol] 32.9 g/dL Normal 29.9-35.2 [facility] Comment on above: Performed By: #### C BC #### [facility] [address] [place] [address] Dr. Reuben Morrison MCV (RBC) [Entitic vol] 87.7 fL Normal 80.0-94.0 [facility] Comment on above: Performed By: #### C BC #### [facility] [address] [place] [address] Dr. Reuben Morrison MONO # 0.4 103/ul Normal 0.3-0.8 [facility] Comment on above: Performed By: #### C BC #### [facility] [address] [place] [address] Dr. Reuben Morrison Monocytes/100 WBC (Bld) 9.5 % Normal 1.7-12.0 [facility] Comment on above: Performed By: #### C BC #### [facility] [address] [place] [address] Dr. Reuben Morrison NEUT # 2.3 103/ul Normal 1.4-6.5 [facility] Comment on above: Performed By: #### C BC #### [facility] [address] [place] [address] Dr. Reuben Morrison Neutrophils/100 WBC (Bld) 62.7 % Normal 43.0-75.0 [facility] Comment on above: Performed By: #### C BC #### [facility] [address] [place] [address] Dr. Reuben Morrison Platelet mean volume (Bld) [Entitic vol] 9.8 fL Normal 9.5-13.5 [facility] Comment on above: Performed By: #### C BC #### [facility] [address] [place] [address] Dr. Reuben Morrison PLT 149 103/ul Critically low 150-450 [facility] Comment on above: Performed By: #### C BC #### [facility] [address] [place] [address] Dr. Reuben Morrison RBC 5.68 106/ul Normal 4.70-6.10 [facility] Comment on above: Performed By: #### C BC #### [facility] [address] [place] [address] Dr. Reuben Morrison WBC 3.7 103/ul Critically low 4.0-11.0 [facility] Comment on above: Performed By: #### C BC #### [facility] [address] [place] [address] Dr. Reuben Morrison FREE THYROXINE INDEX T7on FTI 2.50 Normal 1.30-4.50 [facility] Comment on above: Performed By: #### C MP, T7, TSH, LIPID #### [facility] [address] [place] [address] Dr. Reuben Morrison T3U 39.0 % Normal 33.0-40.0 [facility] Comment on above: Performed By: #### C MP, T7, TSH, LIPID #### [facility] [address] [place] [address] Dr. Reuebn Morrison T4 [Mass/Vol] 6.40 ug/dL Normal 4.50-12.10 [facility] Comment on above: Performed By: #### C MP, T7, TSH, LIPID #### [facility] [address] [place] [address] Dr. Reuben Morrison GLYCOHEMOGLOBIN A1Con 2021 ADA RECOMMENDATION SEE BELOW Normal [facility] Comment on above: Result Comment: ADA RECOMMENDED LIMIT 4.0 - 6.0 ADA THERAPEUTIC TARGET < 7.0 ACTION SUGGESTED > 7.0 Performed By: #### T ESTTOT #### [facility] [address] [place] [address] Dr. Reuben Morrison Glucose [Mass/Vol] 105 mg/dL Normal [facility] Comment on above: Performed By: #### T ESTTOT #### [facility] [address] [address] [address] Reuben Morrison HbA1c (Bld) [Mass fraction] 5.3 % Normal 4.5-6.2 [facility] Comment on above: Performed By: #### T ESTTOT #### [facility] [address] [address] [address] Reuben Morrison IRONon 03-07-2022 Iron [Mass/Vol] 100.0 ug/dL Normal 65.0-175.0 [facility] Comment on above: Performed By: #### I BLAIR, PSASC, VITB12, VITAD #### [facility] [address] [address] [address] Reuben Morrison LIPID PROFILEon 03-07-2022 CHOL-HDL RATIO NORM SEE BELOW Normal [facility] Comment on above: Result Comment: 3.3 - 4.4 LOW RISK 4.4 - 7.1 AVERAGE RISK 7.1 - 11.0 MODERATE RISK >11.0 HIGH RISK Performed By: #### C MP, T7, TSH, LIPID #### [facility] [address] [address] [address] Reuben Morrison Cholesterol [Mass/Vol] 157 mg/dL Normal <=200 [facility] Comment on above: Performed By: #### C MP, T7, TSH, LIPID #### [facility] [address] [address] [address] Reuben Morrison Cholesterol in HDL [Mass/Vol] 48 mg/dL Normal 40-60 [facility] Comment on above: Performed By: #### C MP, T7, TSH, LIPID #### [facility] [address] [address] [address] Reuben Morrison Cholesterol in LDL [Mass/Vol] 96.0 mg/dL Normal [facility] Comment on above: Performed By: #### C MP, T7, TSH, LIPID #### [facility] [address] [address] [address] Reuben Morrison Cholesterol.total/C holesterol in HDL [Mass ratio] 3.3 {ratio} Normal [facility] Comment on above: Performed By: #### C MP, T7, TSH, LIPID #### [facility] [address] [address] [address] Reuben Morrison HDL NORMAL > or = 60 mg/dl - LO W CARDIOVASCULAR RISK <40 mg/dl - HIGH CARDIOVASCULAR RISK Normal [facility] Comment on above: Performed By: #### C MP, T7, TSH, LIPID #### [facility] [address] [address] [address] Reuben Morrison LDL CALC NORMAL SEE BELOW Normal [facility] Comment on above: Result Comment: <100 mg/dl OPTIMAL 100 - 129 mg/dl NEAR OR ABOVE OPTIMAL 130 - 159 mg/dl BORDERLINE HIGH 160 - 189 mg/dl HIGH >190 mg/dl VERY HIGH Performed By: #### C MP, T7, TSH, LIPID #### [facility] [address] [address] [address] Reuben Morrison Triglyceride [Mass/Vol] 65 mg/dL Normal <=150 [facility] Comment on above: Performed By: #### C MP, T7, TSH, LIPID #### [facility] [address] [address] [address] Reuben Morrison VLDL CALC 13.0 mg/dL Normal [facility] Comment on above: Performed By: #### C MP, T7, TSH, LIPID #### [facility] [address] [address] [address] Reuben Morrison PROF 14(COMP METB)on 022 Albumin [Mass/Vol] 3.7 g/dL Normal 3.4-5.0 [facility] Comment on above: Performed By: #### C MP, T7, TSH, LIPID #### [facility] [address] [address] [address] Reuben Morrison Albumin/Globulin [Mass ratio] 1.3 {ratio} Normal [facility] Comment on above: Performed By: #### C MP, T7, TSH, LIPID #### [facility] [address] [address] [address] Reuben Morrison ALP [Catalytic activity/Vol] 53 U/L Normal 46-116 [facility] Comment on above: Performed By: #### C MP, T7, TSH, LIPID #### [facility] [address] [address] [address] Reuben Morrison ALT [Catalytic activity/Vol] 37 U/L Normal 16-63 [facility] Comment on above: Performed By: #### C MP, T7, TSH, LIPID #### [facility] [address] [address] [address] Reuben Morrison Anion gap [Moles/Vol] 11.0 mmol/L Normal [facility] Comment on above: Performed By: #### C MP, T7, TSH, LIPID #### [facility] [address] [address] [address] Reuben Morrison AST [Catalytic activity/Vol] 28 U/L Normal 15-37 [facility] Comment on above: Performed By: #### C MP, T7, TSH, LIPID #### [facility] [address] [place] [address] Dr. Reuben Morrison Bilirubin [Mass/Vol] 0.9 mg/dL Normal 0.2-1.0 [facility] Comment on above: Performed By: #### C MP, T7, TSH, LIPID #### [facility] [address] [address] [address] Reuben Morrison Calcium [Mass/Vol] 8.9 mg/dL Normal 8.5-10.1 [facility] Comment on above: Performed By: #### C MP, T7, TSH, LIPID #### [facility] [address] [address] [address] Reuben Morrison Chloride [Moles/Vol] 106 mmol/L Normal 98-107 [facility] Comment on above: Performed By: #### C MP, T7, TSH, LIPID #### [facility] [address] [address] [address] Reuben Morrison CO2 [Moles/Vol] 28.2 mmol/L Normal 21.0-32.0 [facility] Comment on above: Performed By: #### C MP, T7, TSH, LIPID #### [facility] [address] [address] [address] Reuben Morrison Creatinine [Mass/Vol] 1.55 mg/dL Critically high 0.70-1.30 [facility] Comment on above: Performed By: #### C MP, T7, TSH, LIPID #### [facility] [address] [place] [address] Dr. Reuben Morrison EGFR-AF SWEDISH 55 mL/min/1.73m2 Critically low >=60 [facility] Comment on above: Performed By: #### C MP, T7, TSH, LIPID #### [facility] [address] [place] [address] Dr. Reuben Morrison EGFR-NON AF SWEDISH 46 mL/min/1.73m2 Critically low >=60 [facility] Comment on above: Performed By: #### C MP, T7, TSH, LIPID #### [facility] [address] [place] [address] Dr. Reuben Morrison Globulin (S) [Mass/Vol] 2.9 g/dL Normal [facility] Comment on above: Performed By: #### C MP, T7, TSH, LIPID #### [facility] [address] [place] [address] Dr. Reuben Morrison Glucose [Mass/Vol] 88 mg/dL Normal 74-106 [facility] Comment on above: Performed By: #### C MP, T7, TSH, LIPID #### [facility] [address] [place] [address] Dr. Reuben Morrison Potassium [Moles/Vol] 4.2 mmol/L Normal 3.5-5.1 [facility] Comment on above: Performed By: #### C MP, T7, TSH, LIPID #### [facility] [address] [place] [address] Dr. Reuben Morrison Protein [Mass/Vol] 6.6 g/dL Normal 6.4-8.2 [facility] Comment on above: Performed By: #### C MP, T7, TSH, LIPID #### [facility] [address] [place] [address] Dr. Reuben Morrison Sodium [Moles/Vol] 141 mmol/L Normal 136-145 [facility] Comment on above: Performed By: #### C MP, T7, TSH, LIPID #### [facility] [address] [address] [address] Reuben Morrison Urea nitrogen [Mass/Vol] 13.0 mg/dL Normal 7.0-18.0 [facility] Comment on above: Performed By: #### C MP, T7, TSH, LIPID #### [facility] [address] [place] [address] Dr. Reuben Morrison Urea nitrogen/Creatinine [Mass ratio] 8.4 mg/mg Normal [facility] Comment on above: Performed By: #### C MP, T7, TSH, LIPID #### [facility] [address] [place] [address] Dr. Reuben Morrison TSHon 03-07-2022 TSH 0.091 uIU/mL Critically low 0.358-3.740 [facility] Comment on above: Performed By: #### C MP, T7, TSH, LIPID #### [facility] [address] [place] [address] Dr. Reuben Morrison TSH RANGE SEE BELOW Normal [facility] Comment on above: Result Comment: <0.3 4 UIU/ml HYPERTHYROID 0.34-5.60 UIU/ml EUTHYROID >5.60 UIU/ml HYPOTHYROID Performed By: #### C MP, T7, TSH, LIPID #### [facility] [address] [place] [address] Dr. Reuben Morrison VITAMIN B12on 03-07-2022 Cobalamin (Vitamin B12) [Mass/Vol] 3126.0 pg/mL Critically high 193.0-986.0 [facility] Comment on above: Performed By: #### T ESTTOT #### [facility] [address] [place] [address] Dr. Reuben Morrison VITAMIN D 25 OHon 03-07-2022 VIT D 25-OH 90.4 ng/mL Normal [facility] Comment on above: Performed By: #### T ESTTOT #### [facility] [address] [place] [address] Dr. Reuben Morrison VIT D RANGES SEE BELOW Normal [facility] Comment on above: Result Comment: <20 ng/mL Vit D deficient 20 - <30 ng/mL Vit D insufficient 30 - 100 ng/mL Vit D sufficient >100 ng/mL Potential Toxicity Performed By: #### T ESTTOT #### [facility] [address] [place] [address] Dr. Reuben Morrison XR SHOULDER RICHARD 2V [...] by: ERIN HANSEN Date: 2022-03-07 16:26 Normal [facility] Vital Signs Date Time Vital Sign Value Performing Clinician Facility 11-02-2023 10:48-0500 Body height 170.2 cm Osmin Anthony MD Work Phone: [facility] 11-02-2023 10:48-0500 Body mass index (BMI) [Ratio] 29.29 kg/m2 Osmin Anthony MD Work Phone: [facility] 11-02-2023 10:48-0500 Body weight 84.82 kg Osmin Anthony MD Work Phone: [facility] 10-16-2023 13:03-0500 Blood Pressure Location Vianey SILVERMAN [facility] 10-16-2023 13:03-0500 Diastolic blood pressure 82 mm[Hg] Vianey SILVERMAN [facility] 10-16-2023 13:03-0500 Heart rate 75 /min Vianey SILVERMAN [facility] 10-16-2023 13:03-0500 Respiratory rate 16 /min Vianey SILVERMAN [facility] 10-16-2023 13:03-0500 Systolic blood pressure 131 mm[Hg] Vianey SILVERMAN [facility] 07-27-2023 10:00-0400 Body height 168.91 cm Sandoval Antonia Other [employer] Other 07-27-2023 10:00-0400 Body mass index (BMI) [Ratio] 28.55 kg/m2 Sandoval Antonia Other [employer] Other 07-27-2023 10:00-0400 Body temperature 96.2 [degF] Sandoval Antonia Other [employer] Other 07-27-2023 10:00-0400 Body weight 81.47 kg Sandoval Antonia Other [employer] Other 07-27-2023 10:00-0400 Diastolic blood pressure 87 mm[Hg] Sandoval Antonia Other [employer] Other 07-27-2023 10:00-0400 Respiratory rate 16 /min Sandoval Antonia Other [employer] Other 07-27-2023 10:00-0400 SaO2% (BldA) [Mass fraction] 94 % Sandoval Antonia Other [employer] Other 07-27-2023 10:00-0400 Systolic blood pressure 130 mm[Hg] Sandoval Antonia Other [facility] [employer] Other 06-12-2023 12:25-0400 Blood Pressure Location Vianey SILVERMAN [facility] 06-12-2023 12:25-0400 Diastolic blood pressure 74 mm[Hg] Vianey SILVERMAN [facility] 06-12-2023 12:25-0400 Heart rate 68 /min Vianey SILVERMAN [facility] 06-12-2023 12:25-0400 Respiratory rate 16 /min Vianey SILVERMAN [facility] 06-12-2023 12:25-0400 Systolic blood pressure 128 mm[Hg] Vianey SILVERMAN [facility] 04-26-2023 11:15-0400 Body height 168.4 cm Shawanda Hernandez PA-C Work Phone: [facility] 04-26-2023 11:15-0400 Body temperature 98.01 [degF] Shawanda Hernandez PA-C Work Phone: [facility] 04-26-2023 11:15-0400 Body weight 86.95 kg Shawanda Hernandez PA-C Work Phone: [facility] 04-26-2023 11:15-0400 Diastolic blood pressure 94 mm[Hg] Shawanda Hernandez PA-C Work Phone: [facility] 04-26-2023 11:15-0400 Heart rate 74 /min Shawanda Hernandez PA-C Work Phone: [facility] 04-26-2023 11:15-0400 SaO2% (BldA) [Mass fraction] 97 % Shawanda Hernandez PA-C Work Phone: [facility] 04-26-2023 11:15-0400 Systolic blood pressure 147 mm[Hg] Shawanda Hernandez PA-C Work Phone: [facility] 12-02-2022 08:12-0500 Blood Pressure Location Vianey SILVERMAN [facility] 12-02-2022 08:12-0500 Diastolic blood pressure 84 mm[Hg] Vianey SILVERMAN [facility] 12-02-2022 08:12-0500 Heart rate 70 /min Vianey SILVERMAN [facility] 12-02-2022 08:12-0500 Respiratory rate 16 /min Vianey SILVERMAN [facility] 12-02-2022 08:12-0500 Systolic blood pressure 137 mm[Hg] Vianey SILVERMAN [facility] 07-20-2022 14:11-0400 Body mass index (BMI) [Ratio] 28.98 kg/m2 Jovita Virk MD Work Phone: [facility] 07-20-2022 14:11-0400 Body temperature 98.01 [degF] Jovita Virk MD Work Phone: [facility] 07-20-2022 14:11-0400 Body weight 83.92 kg Jovita Virk MD Work Phone: [facility] 07-20-2022 14:11-0400 Diastolic blood pressure 86 mm[Hg] Jovita Vikr MD Work Phone: [facility] 07-20-2022 14:11-0400 Heart rate 98 /min Jovita Virk MD Work Phone: [facility] 07-20-2022 14:11-0400 Respiratory rate 14 /min Jovita Virk MD Work Phone: [facility] 07-20-2022 [id number] SaO2% (BldA) [Mass fraction] 100 % Jovita Virk MD Work Phone: [facility] 07-20-2022 14:110400 Systolic blood pressure 138 mm[Hg] Jovita Virk MD Work Phone: [facility] Encounters Encounter Date Encounter Type Care Provider Facility Start: 10-21-2024 ambulatory Vianey SILVERMAN Facili ty: Start: 11-27-2023 ambulatory Vianey SILVERMAN Facili ty: Start: 11-17[facility]23 [facility] 11-17-[facility]23 Evaluation and management of inpatient [facility] Start: 11-16-2023 Evaluation and management of inpatient [facility] Start: 11-16-2023 ambulatory [facility] Start: 11-16-2023 ambulatory [facility] Start: 11-16-2023 End: 11-17-2023 Evaluation and management of inpatient [facility] Start: 11-02-2023 End: 11-02-2023 ambulatory OSMIN ANTHONY [facility] Start: 11-02-2023 End: 11-02-2023 Patient encounter procedure Osmin Anthony MD Work Phone: [facility] Comment on above: Primary osteoarthrit is of right knee (Primary Dx) Start: 10-30-2023 End: 10-30-20[facility] Start: 10-16-2023 End: 10-17-2023 ambulatory Vianey SILVERMAN Facility:[facility] Start: 10-16-2023 End: 10-16-2023 Patient encounter procedure Vianey SILVERMAN [facility] Start: 09-08-2023 End: 09-08-2023 ambulatory [facility] Start: 08-10-2023 End: 08-10-2023 ambulatory [facility] Start: 07-27-2023 End: 07-27-2023 ambulatory Sandoval Antonia Other [employer] Other Start: 07-27-2023 Office outpatient ne w 45 minutes Sandoval Antonia [facility] Start: 07-11-2023 ambulatory [facility] Start: 07-11-2023 End: 07-11-2023 ambulatory [facility] Start: 07-10-2023 ambulatory Vianey Lewisi ty:[facility] Start: 06-28-2023 End: 06-28-2023 ambulatory [facility] Start: 06-12-2023 End: 06-13-2023 ambulatory Vianey SILVERMAN Facility:[facility] [place] Start: 06-12-2023 End: 06-12-2023 Patient encounter procedure Vianey SILVERMAN [facility] [place] Start: 05-30-2023 ambulatory Taylor Joshua Facility:[facility] Start: 05-03-2023 End: 05-04-2023 ambulatory Taylor Joshua Facility:[facility] [place] Start: 05-03-2023 End: 05-03-2023 Patient encounter procedure Taylor Joshua [facility] [place] Start: 04-26-2023 End: 04-26-2023 ambulatory ILDA PECK Facility:[facility] Start: 04-26-2023 End: 04-26-2023 Patient encounter procedure Shawanda Hernandez PA-C Work Phone: [facility] Comment on above: Height loss (Primary Dx) Start: 04-05-2023 End: 04-06-2023 ambulatory Taylor Joshua Facility:[facility] Start: 03-08-2023 End: 03-09-2023 ambulatory KYLE RODRIGUEZ [facility] Start: 03-08-2023 End: 03-08-2023 Patient encounter procedure [facility]IGUEZ [facility] Start: 02-07-2023 End: 02-08-2023 ambulatory Vianey SILVERMAN Facility:[facility] [place] Start: 01-20-2023 End: 01-21-[address] ILDA PECK . Facility: Start: 12-02-2022 End: 12-03-2022 ambulatory Vianey SILVERMAN [facility] Start: 12-02-2022 End: 12-02-2022 Patient encounter procedure Vianey SILVERMAN [facility] Start: 11-18-2022 End: 11-19-[address] ILDA PECK . Facility: Start: 11-08-2022 End: 11-09-2022 ambulatory TAYLOR JOSHUA . Facility: Start: 11-01-2022 End: 11-02-2022 ambulatory KYLE RODRIGUEZ Facility:[facility] Start: 11-01-2022 End: 11-01-2022 Patient encounter procedure KYLE RODRIGUEZ [facility] Start: 10-05-2022 End: 10-05-2022 Patient encounter procedure KYLE RODRIGUEZ [facility] [employer] Start: 09-07-2022 End: 09-07-2022 Patient encounter procedure Taylor Joshua [facility] Start: 08-28-2022 Letter encounter Jovita Virk MD Work Phone: [facility] Start: 08-17-2022 End: 08-17-2022 Patient encounter procedure Taylor Joshua [facility] Start: 08-12-2022 Telephone encounter Aarti vences MA, [facility], TAX EXAMINING TECHNICIAN Work Phone: [facility] Start: 07-21-2022 End: 07-22-[address] ILDA PECK . 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); Cognitive changes; Body mass index (BMI) 28.0-28.9, adult Start: 07-11-2022 End: 07-11-2022 Patient encounter procedure Vianey SILVERMAN [facility] Start: 06-15-2022 End: 06-16-[address] SAEED Flores Facility:[facility] Start: 06-13-2022 End: 06-13-2022 Patient encounter procedure Vianey SILVERMAN [facility] Start: 04-27-2022 End: 04-28-[address] SAEED Flores Facility:[facility] Start: 04-07-2022 Refill Jovita Virk MD Work Phone: [facility] [place] [facility] Comment on above: Refill Start: 03-21-[address] ILDA PECK . Facili ty:[facility] Start: 03-17-[address] ILDA PECK . Facili ty:[facility] Start: 03-09-2022 Encounter for genera l adult medical examination without abnormal findings DR ILDA PECK . [facility] Start: 03-07-2022 End: 03-08-2022 Encounter for general adult medical examination without abnormal findings DR ILDA PECK . Facility:[facility] Start: 03-07-2022 End: 03-08-[address] ILDA PECK . Facility:[facility] Start: 03-01-2022 End: 03-01-2022 Patient encounter procedure Saeed Cantu Jr. [facility] Start: 02-01-2022 End: 02-01-2022 Patient encounter procedure Saeed Cantu Jr. [facility] Start: 01-04-2022 End: 01-04-2022 Patient encounter procedure Saeed Cantu Jr. [facility] Procedures Date Procedure Procedure Detail Performing Clinician Start: 11-02-2023 Follow-up visit Follow-up UNIQUE ANTHONY Start: 11-02-2023 Arthrocentesis aspir &/inj major jt/bursa w/o us Osmin Anthony MD Work Phone: Start: 09-08-2023 Follow-up visit Follow-up JEOVANNY SANTOYO Start: 06-15-[address] FABIÁN PECK . Comment on above: Performed By: #### T ESTTOT #### [facility] [address] [address] [address] Reuben Morrison Start: 03-07-[address] FABIÁN PECK . Comment on above: Performed By: #### I BLAIR, PSASC, VITB12, VITAD #### [facility] [address] [address] [address] Reuben Morrison Start: 12-21-2016 Cystourethroscopy wi th dilation of urethral stricture Saeed Cantu Jr. 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 Saeed Cantu JrMark Plan of Treatment Date Care Activity Detail Author Start: 09-04-2031 DTaP,Tdap and Td Vaccines (2 - Tdap) DTaP,Tdap and Td Vaccines (2 - Tdap) [facility] Start: 09-04-2031 Urine microalbumin profile DTAP,TDAP,TD (2 - Tdap) [facility] Start: 06-15-2027 PROSTATE CANCER SCREENING DISCUSSION PROSTATE CANCER SCREENING DISCUSSION [facility] Start: 11-02-2024 Adult BMI Screening Adult BMI Screening [facility] Start: 11-02-2024 Tobacco Screening Tobacco Screening [facility] Start: 05-26-2023 COVID-19 Vaccine ( season) COVID-19 Vaccine ( season) [facility] Start: 05-26-2023 Influenza vaccination INFLUENZA (#1) [facility] Start: 09-25-2022 DEPRESSION ASSESSMENT DEPRESSION ASSESSMENT [facility] Start: 09-20-2022 COVID-19 Vaccine (5 - Booster for Pfizer series) COVID-19 Vaccine (5 - Booster for Pfizer series) [facility] Start: 09-20-2022 COVID-19 VACCINE (5 - Pfizer series) COVID-19 VACCINE (5 - Pfizer series) [facility] Start: 07-19-2022 End: 07-19-2022 Patient encounter procedure 07/19/2022 Office Visit Physical Medicine & Rehab/[facility] Jovita Virk MD [address] [place] [id number] [facility] [place] [facility] Start: 06-25-2022 Influenza vaccination Influenza Vaccine (#1) [facility] Start: 05-31-2022 Shingles (RZV) Vaccine (2 of 2) Shingles (RZV) Vaccine (2 of 2) [facility] Start: 01-19-2022 COVID-19 Vaccine (4 - Booster for Pfizer series) COVID-19 Vaccine (4 - Booster for Pfizer series) [facility] Start: 11-15-2021 COVID-19 Vaccine (4 - Booster for Pfizer series) COVID-19 Vaccine (4 - Booster for Pfizer series) [facility] Start: 09-05-2021 Lipid panel Cholesterol [facility] Start: 12-04-2020 DIABETES SCREEN DIABETES SCREEN [facility] Start: 11-23-2014 Annual wellness visit Annual Wellness Visit (G0438) [facility] Start: 06-10-2012 Thyroid stimulating hormone measurement TSH [facility] Start: 2009 Measurement of occult blood in single stool specimen FIT [facility] Start: 2009 Screening for malignant neoplasm of colon CRC Screening [facility] Start: 2009 Shingles (RZV) Vaccine (1 of 2) [facility] (RZV) [facility] Start: 02-22-2004 COLOGUARD (FIT-DNA) COLOGUARD (FIT-DNA) [facility] Start: 02-22-2004 Colonoscopy COLONOSCOPY [facility] Start: 02-22-2004 COLORECTAL CANCER SCREENING COLORECTAL CANCER SCREENING [facility] Start: 02-22-[address] COLONOGRAPHY [facility] Start: 02-22-2004 FECAL OCCULT BLOOD FECAL OCCULT BLOOD [facility] Start: 02-22-2004 SIGMOIDOSCOPY SIGMOIDOSCOPY [facility] Start: 1994 LIPID SCREEN LIPID SCREEN [facility] Start: 1977 Adult BMI Follow Up Plan Adult BMI Follow Up Plan [facility] Start: 1977 ANNUAL PCP TEAM CHRONIC DISEASE VISIT ANNUAL PCP TEAM CHRONIC DISEASE VISIT [facility] Start: 1977 Hepatitis C screening [facility] Start: 1977 HEPATITIS C SCREENING HEPATITIS C SCREENING [facility] Start: 1977 HIV SCREENING HIV SCREENING [facility] Start: 1977 SPIROMETRY SPIROMETRY [facility] Start: 1977 Tetanus + diphtheria + acellular pertussis vaccine (product) Tdap Booster [facility] Start: 1974 HIV screening HIV Test [facility] Start: 1971 Depression Screening Depression Screening [facility] Start: 1965 PNEUMOCOCCAL (1 - PCV) PNEUMOCOCCAL (1 - PCV) [facility] Start: 1959 Screening for malignant neoplasm of colon Colonoscopy [facility] Immunizations Immunization Date Immunization Notes Care Provider Elicia daniel 08-29-2022 zoster vaccine recombinant Shawanda Hernandez PA-C Work Phone: [facility] 07-25-2022 Influenza, injectabl e, Madin Hanna Canine Kidney, preservative free, quadrivalent Jovita Virk MD Work Phone: [facility] 04-05-2022 zoster vaccine recombinant Jovita Virk MD Work Phone: [facility] 09-04-2021 diphtheria, tetanus toxoids and pertussis vaccine Jovita Virk MD Work Phone: [facility] 08-25-2021 SARS-CoV-2 (COVID-19 ) Ad26 vaccine, recombinant Saeed Cantu Jr. [facility] 08-10-2021 influenza, injectabl e, quadrivalent, preservative free Jovita Virk MD Work Phone: [facility] 08-10-2021 influenza virus vaccine, unspecified formulation Jovita Virk MD Work Phone: [facility] 06-25-2021 influenza virus vaccine, unspecified formulation Saeed Cantu Jr. [facility] 12-22-2020 Pfizer (12+ yrs) SARS-COV-2 (COVID-19) vaccine, mRNA, spike protein, LNP, pres. free, 30 mcg/0.3mL dose (PRN=[id number]) Jovita Virk MD Work Phone: [facility] 11-30-2020 Pfizer (12+ yrs) SARS-COV-2 (COVID-19) vaccine, mRNA, spike protein, LNP, pres. free, 30 mcg/0.3mL dose (YZZ=[id number]) Jovita Virk MD Work Phone: [facility] 08-25-2020 influenza virus vaccine, unspecified formulation Saeed Cantu Jr. [facility] 06-30-2020 influenza, injectabl e, quadrivalent, preservative free Jovita Virk MD Work Phone: [facility] 12-25-2019 SARS-CoV-2 (COVID-19 ) mRNA BNT-162b2 [facility] Saeed Cantu Jr. [facility] 11-24-2019 SARS-CoV-2 (COVID-19 ) mRNA BNT-162b2 [facility] Saeed Cantu Jr. [facility] Payers Date Payer Category Payer Unknown [id number] 2022 Unknown [id number] 2017 Unknown [id number] 2017 Unknown [id number] 2013 Medicare [id number] 1959 Medicare [id number] 1959 Self-pay [id number] 1959 Unknown [id number] 2.16.84 0.1.188995.3.579.2.593 1959 Unknown [id number] 2.16.84 0.1.661505.3.579.2.593 1959 Unknown [id number] 2.16.84 0.1.690366.3.579.2.593 1959 Unknown [id number] 2.16.84 0.1.608838.3.579.2.593 1959 Unknown [id number] 2.16.84 0.1.878513.3.579.2.593 1959 Unknown [id number] 2.16.84 0.1.721192.3.579.2.59 1959 Unknown [id number] 2.16.84 0.1.615036.3.579.2.593 1959 Unknown [id number] 2.16.84 0.1.815285.3.579.2.59 1959 Unknown [id number] 2.16.84 0.1.134690.3.579.2.59 1959 Unknown [id number] 2.16.84 0.1.468343.3.579.2.593 1959 Unknown [id number] 2.16.84 0.1.578304.3.579.2.59 1959 Unknown [id number] 2.16.8 40.1.901054.3.579.2.72 1959 Unknown [id number] 2.16.8 40.1.433607.3.579.2.72 1959 Unknown [id number] 2.16.8 40.1.050092.3.579.2.72 1959 Unknown [id number] 2.16.8 40.1.697423.3.579.2.72 1959 Unknown [id number] 2.16.8 40.1.510946.3.579.2.72 1959 Unknown [id number] 2.16.8 40.1.923176.3.579.2.72 1959 Unknown [id number] 2.16.8 40.1.676258.3.579.2.72 1959 Unknown [id number] 2.16.8 40.1.145546.3.579.2.72 1959 Unknown [id number] 2.16.8 40.1.241192.3.579.2.727 1959 Unknown [id number] 2.16.8 40.1.941783.3.579.2.727 1959 Unknown [id number] 2.16.8 40.1.048010.3.579.2.727 1959 Unknown [id number] 2.16.8 40.1.067622.3.579.2.727 1959 Unknown [id number] 2.16.8 40.1.045933.3.579.2.1286 Unknown [id number] 2.16.84 0.1.238974.3.579.2.593 Social History Date Type Detail Facility Start: 10-05-2021 End: 10-16-2023 Tobacco smoking status Never smoked tobacco (finding) [facility] Tobacco smoking status Never [facility] Start: 11-05-2020 End: 04-26-2023 Sex Assigned At Male [facility] [employer] Start: 08-24-2011 End: 04-26-2023 Tobacco use and exposure Smokeless tobacco non-user [facility] Start: 12-07-2017 End: 08-12-2022 Alcohol intake Not Asked [facility] Start: 1960 Sex Assigned At Not on file [facility] Start: 08-12-2022 History SDOH Social Connections Phone 1 [facility] Start: 08-12-2022 History SDOH Social Connections Get Together 2 [facility] Start: 08-12-2022 History SDOH Social Connections [facility] 98 [facility] Start: 08-12-2022 Education 12 [facility] Start: 04-26-2023 End: 11-02-2023 Alcohol intake Current drinker of alcohol (finding) [facility] Start: 11-05-2020 End: 04-26-2023 History of Social function [facility] Start: 12-04-2017 Alcohol Comment social [facility] Start: 1960 Sex Assigned At Male [facility] [employer] Start: 08-23-2021 Gender identity Identifies as male gender (finding) [employer] [facility] Procedure Code Equipment Code Equipment Origin al Text Equipment Identifier Dates Brng Tib [id number] mm 0d Kn Ant - [id number] Start: 09-05-2016 Cement Bn Pal[place] s Radpq 40g Rpl [id number] - [id number] Start: 09-05-2016 Cmpt Ptlr Thn 34 mm 3 Pg Kn Ser - [id number] Start: 09-05-2016 Goals Date Patient Goal Desired Activity /State Personal health goal Comment on above: Formatting of this n ote might be different from the original. Evaluation of progress towards goal: Maximize work with PT at discharge to strengthen L knee Functional Status Date Assessment Result Facility 10-16-2023 Functional Status N/A [facility] 06-12-2023 Functional Status N/A [facility] 12-02-2022 Functional Status N/A [facility] Clinical Notes 04-07-2022 to 11-17-2023 Osmin Anthony MD - 11/02/2023 10:50 AM EST Note Date & Type Note Facility 11-17-2023 Note Renal condition is stable [facility] 11-17-2023 Note 11/17/23 1017 Admission Assessment Questions Verify insurance with patient Yes Do you understand medical disease or what brought you into the hospital? Yes Who is your current PCP? Ilda Peck MD Can I schedule a follow up appointment for you at the time of discharge? No Do you understand why you are taking your current medications? Yes Are you taking your medications as prescribed? Yes Did patient provide teach back? Yes Would you like use our pharmacy iMeds to fill your new medications at the time of Discharge? No Does the patient have a bottle caser assigned to them through their insurance? No Living Arrangement (Current/Prior to Hospitalization) Private residence;Home self care (one story house - 2 entry stairs) Does the patient have history of HHC or SNF? Yes ([facility] in [place] following brain injury 2010) Assistive Device Other (Comment) (CPAP) Patient's goal for discharge home Was patient reminded that goal for discharge is 11am? Yes Does the patient have transportation at discharge? Yes Type of Residence/Post Acute Needs Private residence Is PT/OT appropriate? No Is PT/OT ordered? No Is SW consult appropriate? No Is SW consult ordered? No Do you understand the benefits of MyChart? Yes Were you able to send link and activate MyChart? MyChart already active [facility] 11-16-2023 Note ATRIAL FIBRILLATION ABLATION PROCEDURE NOTE DATE OF PROCEDURE: 11/16/2023 PERFORMING PHYSICIAN: Dr. Jeovanny Scott MANAGER FINANCE: Dr Blanca Verde CONSENT: Patient NAME OF THE PROCEDURE: Pulmonary Vein Isolation and Comprehensive EP study. INDICATIONS FOR PROCEDURE: 1. Persistent atrial fibrillation. FLUROSCOPY: 2.5minutes/ 18mGy. EBL: 25cc SPECIMEN REMOVED: None PROCEDURES PERFORMED: 1. Sonosite guided venous access as noted below and images stored in PACS. 2. Comprehensive EP study and catheter ablation for persistent atrial fibrillation through the pulmonary vein isolation technique. This includes right atrial recording and pacing, His bundle recording and right ventricular recording and pacing. 3. Intracardiac EP 3D mapping. 4. Intracardiac echocardiogram 5. Left atrial and coronary sinus recording and pacing to assess ablation results. 6. Left heart pressure measurements and LV pacing and recording. 7. Induction of arrhythmia and testing of ablation results using intravenous adenosine infusion. 8. Fluroscopy. INDICATION: 63 year old with past medical history of paroxysmal atrial fibrillation, hypothyroidism was given a monitor which revealed episodes of Afib with RVR but today in clinic. His symptoms of chest pain, shortness of breath have resolved being in SR on Amiodarone. He continues to have fatigue due to heart rate is as low as 37 when sitting watching TV. He denies significant lightheadedness or dizziness. He has no syncope. No orthopnea, no paroxysmal tunnel dyspnea no lower extremity edema. He presented for catheter ablation. PROCEDURE NOTE: On the day of presentation, he was noted to be in Afib and so JAMIN was done to rule out LA thrombus. Risks, benefits and alternatives of the procedure were discussed with the patient and family who agreed to proceed. Please refer to my consult note for details of the discussion and of indications. The patient was prepped and draped following which four venous access was procured on right side as noted below. Ultrasound was used to determine the course and patency of the femoral veins on both sides and they were noted to be patent and the image stored in PACS. After infiltration with 1% lidocaine, 4 venous sheaths were placed in the right as noted below and a radial arterial line was placed by Anesthesia team. RFV: 8Fx3, Navistar ThermoCool SF Bi-Directional over SL1/ Vizigo, SL1: Pentaray, CS Catheter (EZ Steer). 9F: ICE catheter. Following venous access, heparin bolus was given followed by continuous intravenous drip to target ACT around 350. An intracardiac ultrasound catheter was inserted into the right atrium to examine the right atrial anatomy, atrial septum, pulmonary vein anatomy and to monitor for pericardial effusion and guide transseptal access. The LA and RA was significantly dilated. At baseline, there was no pericardial effusion and no AIDA clot but noted a very prominent Coumadin ridge. Esophagus was mapped using the Cloud Sustainability[employer]D 3D mapping software and noted to be towards the LSPV. Transeptal access was procured with ICE guidance using a SL-1 sheath and Meli needle. Following this, pentaray catheter was advanced and the multipolar mapping performed of the LA creating a geometry as well as bipolar voltage assessment was made in AF. There was high frequency activity on the superior aspect of LA near the roof posteriorly. After FAM geometry was performed, a 2nd transseptal was performed with an SL1 sheath using a Meli needle. Following transseptal, the SL1 sheath was removed and Vizigo sheath was advanced over which the ablation catheter ST-SF thermocol ablation catheter was advanced. A temperature probe was advanced to the middle of the LA to monitor the temperature. Ablation was performed using 40 winchester for 10-12s in the anterior LA and 5-8seconds in the posterior wall and roof area. After completion of the left sided WACA, no signals were noted in the LSPV or LIPV and entrance block was noted. After this, I proceeded to perform ablation of the right-sided vein. Following right WACA, the veins were isolated. I ensured that on the anterior aspect of right WACA and in lorena area, phrenic capture was ruled out before any ablation was performed. A temperature elevation was noted from a baseline of 35.4 to 36.5C. Afib persisted and so I decided to perform superior roof line ablation and inferior roof line ablation leading to a box isolation. Substrate modification was then performed in the posterior LA. DCCV was then performed and patient was noted to have significant sinus bradycardia and so pacing was done to maintain hemodynamic stability. LV pacing revealed no left sided accessory pathway. Adenosine was given with no reconnection. I then went over to the right atrium and performed CTI ablation. Using ICE, the His and IVC junctions were marked with 3D CARTO mapping software. ICE revealed a lar (more content not included)... [facility] 11-16-2023 Note Patient: ODILON Mcintosh Olynn Procedure Summary Date: 11/16/23 Room / Location: [facility] 1 / [facility] (Cath) Anesthesia Start: 1210 Anesthesia Stop: 1618 Procedures: Ablation atrial fibrillation JAMIN during EP case Diagnosis: Persistent atrial fibrillation (CMS/HCC) (Persistent atrial fibrillation (CMS/HCC) [I48.19]) Providers: Jeovanny Scott MD Responsible Provider: Gissell Heller MD Anesthesia Type: general ASA Status: 3 Anesthesia Type: general Vitals Value Taken Time BP 96/80 11/16/23 1640 Temp 36.2 ???C (97.2 ???F) 11/16/23 1610 Pulse 60 11/16/23 1640 Resp 16 11/16/23 1640 SpO2 99 % 11/16/23 1640 Anesthesia Post Evaluation Patient location during evaluation: PACU Patient participation: complete - patient participated Level of consciousness: awake and alert Pain score: 1 Pain management: adequate Multimodal analgesia pain management approach Airway patency: patent Two or more strategies used to mitigate risk of obstructive sleep apnea Cardiovascular status: hemodynamically stable Respiratory status: acceptable, spontaneous ventilation, nonlabored ventilation and nasal cannula (on 2L, came to pacu on 4L) Hydration status: euvolemic Patient is hemodynamically stable and is able to be discharged from PACU per anesthesia protocol. No notable events documented. [facility] 11-16-2023 Note Patient: ODILON Mcintosh Olynn Procedure Summary Date: 11/16/23 Room / Location: [facility] 1 EP / [facility] (Cath) Anesthesia Start: 1210 Anesthesia Stop: 161 Procedures: Ablation atrial fibrillation JAMIN during EP case Diagnosis: Persistent atrial fibrillation (CMS/HCC) (Persistent atrial fibrillation (CMS/HCC) [I48.19]) Providers: Jeovanny Scott MD Responsible Provider: Gissell Heller MD Anesthesia Type: general ASA Status: 3 Anesthesia Post Transport Note Transport to: PACU O2 Route: nasal cannula Oxygen Flow (L/min): 6 Patient Monitor: transport monitor Transport monitor type: Art Line Transport: uneventful Patient condition is: stable [facility] 11-16-2023 Note Airway Date/Time: 11/16/2023 12:27 PM Urgency: elective Airway not difficult General Information and Staff Patient location during procedure: OR Anesthesiologist: Gissell Heller MD Resident/WEIGH AND CHARGE WORKER/CAA: Edy Marino DO Performed: resident/WEIGH AND CHARGE WORKER/AUDREY Indications and Patient Condition Indications for airway management: anesthesia Spontaneous Ventilation: absent Sedation level: deep Preoxygenated: yes Patient position: sniffing Mask difficulty assessment: 1 - vent by mask Final Airway Details Final airway type: endotracheal airway Successful airway: ETT Cuffed: yes Successful intubation technique: video laryngoscopy Facilitating devices/methods: intubating stylet Endotracheal tube insertion site: oral Blade: Farooq Blade size: #3 ETT size (mm): 7.0 Cormack-Lehane Classification: grade I - full view of glottis Placement verified by: chest auscultation and capnometry Measured from: lips ETT to lips (cm): 21 Number of attempts at approach: 1 Number of other approaches attempted: 0 [facility] 11-16-2023 Note Arterial Line: Date/Time: 11/16/2023 12:00 PM An arterial line was placed Procedure performed using ultrasound guidance and surface landmarks.in the pre-op for the following indication(s): continuous blood pressure monitoring and blood sampling needed. A 20 gauge (size), 1 and 3/4 inch (length), Angiocath (type) catheter was placed, Seldinger technique used , into the Left radial artery, secured by Tegaderm, tape and Biodisc/Biopatch (and biodesc). Events: patient tolerated procedure well with no complications. Medications Administered lidocaine (XYLOCAINE) 1 % SubQ - infiltration 2 mL - 11/16/2023 12:00:00 PM Staffing Performed: resident/WEIGH AND CHARGE WORKER/CAA Resident/WEIGH AND CHARGE WORKER: Tara Penny MD Performed by: Traa Penny MD Authorized by: Gissell Heller MD [facility] 11-16-2023 Note Patient: ODILON Lacey Procedure Information Anesthesia Start Date/Time: 11/16/23 1211 Procedures: Ablation atrial fibrillation JAMIN during EP case Location: [facility] 1 EP / [facility] (Cath) Providers: Jeovanny Scott MD Relevant Problems Anesthesia (-) History of anesthesia complications Cardio (+) Atrial fibrillation (CMS/HCC) (+) Mild mitral regurgitation Endo (+) Hypothyroidism Pulmonary (+) Asthmatic bronchitis Nervous (+) Traumatic brain injury (CMS/HCC) (history of) Respiratory (+) Sleep apnea Circulatory (+) Nonrheumatic tricuspid valve regurgitation Other (+) Arthritis of both knees (+) H/O head injury (+) Status post total left knee replacement Clinical information reviewed: Tobacco Allergies Meds Med Hx Surg Hx Fam Hx Soc Hx Physical Exam Airway Mallampati: II TM distance: >3 FB Neck ROM: full Cardiovascular Rhythm: irregular Rate: normal Dental - normal exam Pulmonary Breath sounds clear to auscultation Abdominal - normal exam Encounter Date: 11/16/23 Electrocardiogram, 12-lead Result Value Ventricular Rate 72 QRS DURATION 86 QT Interval 392 QTC CALCULATION(BAZETT) 429 R-Yakima -15 T Wave [place] -6 Impression Atrial fibrillation Abnormal ECG When compared with ECG of 11-JUL-2023 12:42, Atrial fibrillation has replaced Sinus rhythm Vent. rate has increased BY 25 BPM Transesophageal echo (JAMIN) with possible cardioversion Result Date: 07/11/2023 1 [facility] [address] [place] [address] [phone] (fax) Transesophageal Echocardiogram-[facility] Name: VIANEY LACEY Study Date: 07/11/2023 12:24 PM B/P: 104 mmHg/74 mmHg HR: Date of : 1960 Location: [facility] Height: 68 in. Age: 63 year(s) Patient Room: Weight: 189 lb. Gender: Male Patient Status: OutPt BSA: 2 m2 Indication: Atrial Fibrillation, Pre-Cardioversion Examination: JAMIN (Transesophageal Echo / CFI) Image Quality: Good Patient Consent: Informed, written consent was obtained for the procedure Exam Location: A JAMIN was performed in the [facility] without complications Anesthesia Pharyngeal anesthesia with viscous Lidocaine Conclusions Left Ventricle: Global left ventricular systolic function is normal. EF range is estimated at 55 % -60 %. Right Ventricle: The right ventricle is normal in size.Right ventricular systolic function appears normal. Left Atrium: The left atrium appears enlarged. Right Atrium: The right atrium appears enlarged. Mitral Valve: Mild mitral regurgitation. Tricuspid Valve: Mild-moderate tricuspid regurgitation. Overall Conclusions: Immediately following the transesophageal echocardiogram, biphasic cardioversion was performed at 360 J. The patient's rhythm was converted to sinus rhythm Medications Date Time Name Route Form Dose Units Ordered By Given By Comment 07/11/2023 12:58 PM Midazolam HCL (Versed) 5 milligrams 07/11/2023 12:58 PM Fentanyl (Opiates) 75 micrograms Valvular Assessment LVOT 0.7 - 1.1 m/sec Aortic Valve 1.0 - 1.7 m/sec Mitral Valve 0.6 - 1.3 m/sec Tricuspid Valve 0.3 - 0.7 m/sec Pulmonic Valve 0.6 - 0.9 m/sec Regurgitation No Mild MildMod No Findings Left Ventricle: Global left ventricular systolic function is normal. EF range is estimated at 55 % -60 %. Right Ventricle: The right ventricle is normal in size. Right ventricular systolic function appears normal. Left Atrium: The left atrium appears enlarged. Left Atrium Appendage: Normal left atrial appendage, no thrombus seen. Right Atrium: The right atrium appears enlarged. Mitral Valve: Mild mitral regurgitation. Aortic Valve: Mildly sclerosed aortic valve cusps. No aortic valve regurgitation. The aortic valve is trileaflet. Tricuspid Valve: Mild-moderate tricuspid regurgitation. Pulmonic Valve: No pulmonary regurgitation. Aorta: Mild atherosclerotic plaque is seen in the aorta. Procedure Staff Reading Group: [facility] Technical Communicator: Cherrie Armstrong RDCS Ordering Physician: George Loza MD Anesthesia Plan ASA 3 general (GETA. Standard ASA monitors. Arterial line. Patient agrees) The patient is not a current smoker. Patient did not smoke on day of procedure. intravenous induction Postoperative administration of opioids is intended. Anesthetic plan and risks discussed with patient. Use of blood products discussed with patient who consented to blood products. Plan discussed with attending. Additional Equipment Requests Tara Penny MD PGY 4 [employer] Dynamics Ax Developer [facility] 11-02-2023 History of Present illness Narrative Associated [...] evaluated the patient today with my physician assistant corporate secretary and agree with all aspects of the [...] via procedure documentation [facility] Patient here for H&P prior to afib ablation scheduled for 11/16/[address] Scott. Denies chest pain, SOB, palpitations, lightheadedness/syncope, and bleeding on Eliquis. Review of Systems Constitutional: Positive for malaise/fatigue. All other systems reviewed and are negative. [facility] 10-30-2023 Note [facility] Consult Note [...] function. He is also recently seen a plasma table operator. They are weaning of amantadine which [...] route for 90 days. vitamin B complex 660-0-899-2-2 mg/mL injection Refill(s) 0 amantadine (Symmetrel) 100 [...] Inspection and Palpat (more content not included)... [facility] 10-16-2023 Hospital Discharge instructions Patient Education [...] provider. Document Revised: 01/20/2022 Document Reviewed: 01/20/2022 [employer] Platform Patient Education 2022 [employer]. Follow Up Care 07/31/2023 10:30:59 With:HERRERA RPIETO, Vianey Crawford, URL Address: [facility] [address], [place] [id number]- When:Within 1 Year(s) Comments:w/AARON [facility] 09-08-2023 Note [facility] Consult Note Reason [...] function. He is also recently seen a plasma table operator. They are weaning of amantadine which [...] route for 90 days. vitamin B complex 387-6-806-2-2 mg/mL injection Refill(s) 0 No current facility-administered [...] tender Musculoskeletal Ins (more content not included)... [facility] 08-10-2023 Note [facility] Cardiology Clinic Note Chief Complaint: [...] function. He is also recently seen a plasma table operator. They are weaning of amantadine which [...] days., Disp: , Rfl: vitamin B complex 583-0-352-2-2 mg/mL injection, Refill(s) 0, Disp: , Rfl: [...] ischemia. Ejection fraction is normal. Transesophageal Echocardiogram-[facility] Name: VIANEY LACEY Study Date: 07/11/2023 12:24 PM B/P: 104 mmHg/74 mmHg HR: Date of : 1960 Location: [facility] Height: 68 in. Age: 63 year(s) Patient Room : Weight: 189 lb. Gender: Male Patient Status: OutPt BSA: 2 m2 Indication: Atrial Fibrillation, Pre-Cardioversion Examination: JAMIN (Transesophageal Echo / CFI) Image Quality: Good Patient Consent: Informed, written consent was obtained for the procedure s p @ c 3 Exam Location: A JAMIN was performed in the [facility] without complications s p @ c 3 [...] A 12-lead EKG (more content not included)... [facility] 07-27-2023 Evaluation note Encounter Date Diagnosis [...] advised him to avoid NSAIDs or any mpgt-cnp-ypkxr er supplements. This deanna with the importance of good HTN control the progression of CKD. 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 [facility] Other 10-17-2023 History general Narrative - Reported* Type Description Date Medical History FATIGUE Medical History EDEMA Surgical History CARDIO VERSION 07/11/2023 Surgical History LEFT KNEE REPLACEMENT Surgical History C5-C6 PLATE AND SCREWS Surgical History DOUBLE HERNIA REPAIR Surgical History RIGHT SHOULDER SCOPE Surgical History COLONOSCOPY Surgical History CYSTO SCOPE Hospitalization History SEE ABOVE [facility] Other 10-17-2023 NotePatient: ODILON J Olynn Procedure Information Date/Time: 07/11/23 1200 Procedure: Cardioversion Location: [facility] HOLDING ROOM / [facility] (Cath) Providers: George Loza MD Clinical information reviewed: Physical Exam Airway Mallampati: III TM distance: >3 FB Neck ROM: full Cardiovascular Rhythm: irregular Dental Pulmonary Breath sounds clear to auscultation Abdominal Abdomen: soft Anesthesia Plan ASA 3 (Conscious sedation) Anesthetic plan and risks discussed with patient. Use of blood products discussed with patient who. [facility] Cardiology Clinic Note Chief Complaint: Patient here to re-establish care for PAF. Was last seen in [address] Peck. Had echo and ECG yesterday. states they recently returned home from [place]. While they were there, he had intermittent SOB with very swollen ankles. 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 Feeling chest pressure. He is in the process of getting a cpap machine for NANCY. HPI: ODILON Lacey is a 63 y.o. male known to me from prior office visits and his - Nitza Addison who works at [employer]. He has a known h/o PAF in the past (1012-1441) thought to be related to thyroid issues [...] ST-T wave changes Assessment: Paroxysmal atrial fibrillation, [id number] score of 2-3 Chest pain - unstable [...] referred to our elect (more content not included)...[facility] 06-12-2023 Hospital Discharge instructions Patient Education [...] therapy. Follow these instructions at home: Take fvla-fdd-nuxsksb and prescription medicines only as told by [...] provider. Document Revised: 05/13/2021 Document Reviewed: 05/13/2021 [employer] Platform Patient Education 2022 Netrada. Follow Up Care 05/04/2023 10:34:04 With:HERRERA PRIETO, Vianey Crawford, URL Address: [facility] [address] [place] [phone] When:Within 6 Month(s) Comments:w/Testosterone Level, PSA and CBC [facility] [place] 08-02-2023 NoteHNO ID: [id number] Author: Shawanda Hernandez PA-C Service: ? 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 Type: Progress Notes Filed: 04/26/2023 11:40 AM [...] Cervical disc disease CVA (cerebral vascular accident) ([facility]) due to head trauma Dysarthria Eczema Hypothyroidism [...] Full Oblique Extension With (more content not included)...[facility] 04-26-2023 History of Present illness Narrative* Shawanda [...] Vertigo Cva (Cerebral Vascular Accident) ([facility]) Dysarthria Add (Attention Deficit Disorder) [...] Cervical disc disease CVA (cerebral vascular accident) ([facility]) due to head trauma Dysarthria Eczema Hypothyroidism [...] 11:15 AM [facility] Discharge instructions Patient Education 12/02/2022 [...] urethra. Follow these instructions at home: Take jhuh-vxj-gwpdoxn and prescription medicines only as told by [...] 09/11/2006 Document Revised: 08/06/2019 Document Reviewed: 10/16/2017 [employer] Patient Education 2020 [employer] Follow Up Care 11/01/2022 10:29:54 With:HERRERA PRIETO, Vianey Crawford, URL Address: [address] [place] [id number]- When: Unknown [facility] 11-18-2022 History of Present illness Narrative* Aarti Kelsey MA, CCC, TAX EXAMINING TECHNICIAN - 08/12/2022 12:27 PM EST SPEECH LANGUAGE [...] stated should already be in the system. TAX EXAMINING TECHNICIAN was speaking with patient's spouse via phone conversation attempting to troubleshoot and bypass the preliminary questionnaires. However, it was unsuccessful. TAX EXAMINING TECHNICIAN sent patient's spouse a direct link to her cell phone to connect to video visit and the same issues arose. Patient was connected to Wifi and using an iPad in home setting. The iPad did not successfully pass the hardware test and patient/patient's spouse were never able to successfully log on. TAX EXAMINING TECHNICIAN provided patient/patient's spouse the [facility] Support Team's contact information to reach out for further assistance with log on issues. TAX EXAMINING TECHNICIAN will e-mail patient's spouse/patient information regarding memory strategies, etc to help in the home setting (patient's spouse reported patient tends to misplace belongings, such as keys, etc and could use a refresher on the strategies. Patient's spouse stated she will take a look at the strategies and go from there with scheduling anything further. TAX EXAMINING TECHNICIAN provided patient/spouse with our direct line to SR Therapy dept if she has any further questions/concerns or needs to schedule. Patient left without being seen this date. documented in this [id number] Instructions* Patient Instructions* Jovita Virk MD - 07/20/2022 2:49 PM EDT -Get the sleep apnea addressed -Hold amantadine -Add memantine 5mg daily. -External referral for brain MRI. -Speech therapy for cognitive strategies. -R knee surgery. -F/up 1 year, sooner if needed. documented in this [id number] History of Present illness Narrative* Jovita Virk [...] no evidence of hydrocephalus. Completed outpt PT 3/13/12. CT repeated March 2012, reportedly stable. Labs [...] 200 mg into the muscle once amonth. 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 Last available brain imaging [id number] showed ventriculomegaly that was deemed not hydrocephalus [...] Risk protocol implemented: No documented in this [id number] Telephone encounter Note* Telephone Encounter - Renetta [...] PCP on file No PCP on file [id number] Miscellaneous Notes* Telephone Encounter - Renetta Boyer [...] Hospital Appointment Type:URO Office Visit [facility] evaluation + Plan note Future Appointments Appointment Date:03/01/2022 09:00:00 AM Scheduled Provider:Saeed Cantu Jr., MD Location:[facility] Appointment Type:URO Office Visit Appointment Date:04/05/2022 11:15:00 AM Scheduled Provider:Saeed Cantu Jr., MD Location:[facility] Appointment Type:URO Office Visit [facility] evaluation + Plan note Future Appointments Appointment Date:04/05/2022 11:15:00 AM Scheduled Provider:Saeed Cantu Jr., MD Location:[facility] Appointment Type:URO Office Visit Diagnostic Tests Pending * Testosterone Level Total 03/01/22 [facility] evaluation + Plan note Future Appointments Appointment Date:07/11/2022 10:15:00 AM Scheduled Provider: Location:[facility] Appointment Type:URO Nurse Visit [facility] evaluation + Plan note Future Appointments Appointment Date:09/07/2022 10:00:00 AM Scheduled Provider: Location:[facility] Appointment Type:URO Nurse Visit [facility] evaluation + Plan note Future Appointments Appointment Date:10/05/2022 10:00:00 AM Scheduled Provider: Location:[facility] Appointment Type:URO Nurse Visit [facility] evaluation + Plan note Future Appointments Appointment Date:11/01/2022 10:00:00 AM Scheduled Provider: Location:[facility] Appointment Type:URO Nurse Visit [facility] evaluation + Plan note Future Appointments Appointment Date:11/30/2022 10:00:00 AM Scheduled Provider:Taylor Joshua MD Location:[facility] Appointment Type:URO Office Visit Diagnostic Tests Pending * CBC w/ Auto Diff 11/01/22 * Testosterone Level Total 11/01/22 [facility] evaluation + Plan note Diagnostic Tests Pending * Testosterone Level Total 12/17/22 * Testosterone Level Total 04/25/23 [facility] evaluation + Plan note Future Appointments Appointment Date:04/05/2023 10:00:00 AM Scheduled Provider: Location:[facility] Appointment Type:URO Nurse Visit [facility] evaluation + Plan note Future Appointments Appointment Date:05/30/2023 10:00:00 AM Scheduled Provider: Location:[facility] Appointment Type:URO Nurse Visit [facility] evaluation + Plan note Future Appointments Appointment Date:07/10/2023 09:30:00 AM Scheduled Provider: Location:[facility] Appointment Type:URO Nurse Visit Appointment Date:11/27/2023 09:45:00 AM Scheduled Provider:Vianey SILVERMAN MD Location:[facility] Appointment Type:URO Office Visit Diagnostic Tests Pending * Testosterone Level Total 06/12/23 * PSA Total 06/12/23 * CBC w/ Auto Diff 06/12/23 [facility] evaluation + Plan note Future Appointments Appointment Date:10/21/2024 10:15:00 AM Scheduled Provider:Vianey SILVERMAN MD Location:[facility] Appointment Type:URO Office Visit Diagnostic Tests Pending * PSA Total 10/16/23 [facility] evalblnbog note* 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 Body mass index (BMI) 28.0-28.9, adult [facility] Height loss- Primary Loss of height [facility] Diagnosis Primary osteoarthritis of right knee- Primary [facility] Narrative No data available for this section [facility] Discharge instructions No data available for this section [facility] [employer] InstructionsNot on filedocumented in this encounter [facility] System[facility] note No data available for this section [facility] [employer] Advance Directives No Advanced Directives Records FoundLatest [...] of brain injury (HCC) Jovita Virk MD [address] [place] [id number] Referral ID Status Reason Start Date Expiration Date Visits Requested Visits Authorized [id number] Authorized Patient Preference 2 07/20/2023 3 3 Comments Brain MRI without contrast. H/o TBI 2010. Continues to struggle with cognitive deficits, fatigue, impaired balance, unimproved. Please evaluate for other structural causes of these issues. Fax report to me at [phone]. Specialty Diagnoses / Procedures Referred By Stephany flower Referred To Contact Speech Pathology Diagnoses Cognitive changes Late effect of brain injury (HCC) Jovita Virk MD [address] [place] [address] [place] [address] Referral ID Status Reason Start Date Expiration Date Visits Requested Visits Authorized [id number] Pending Review [facility]atio n-[facility] 2 07/20/2023 10 10 Question [...] Care Teams (unrecognized sec tion and content) [employer] Relationship Specialty Start Date End Date Jovita Virk MD [address] [place] [address] Physician Physical Medicine & Rehab/PM&R 06/30/20 [employer] Relationship Specialty Start Date End Date Jovita Virk MD [address] [place] [address] Physician Physical Medicine & Rehab/PM&R 06/30/20 [employer] Relationship Specialty Start Date End Date Jovita Virk MD [address] [place] [address] Physician Physical Medicine & Rehab/PM&R 06/30/20 [employer] Relationship Specialty Start Date End Date Ilda Peck MD PCP - General Family Medicine 12/04/17 [employer] Relationship Specialty Start Date End Date Ilda Peck MD [address] [place] [id number] PCP - General 07/05/16 (unrecognized sect ion and content) No Status Records FoundNo Status Records FoundNo Status Records FoundNo Status Records FoundNo Status Records FoundNo Status Records Found INFORMATION SOURCE (unrecogn ized section and content) DATE CREATED AUTHOR 01/27/2023 [facility] DATE CREATED AUTHOR AUTHOR'S ORGANIZ ATION 04/27/2023 [facility] DATE CREATED AUTHOR AUTHOR'S ORGANIZ ATION 09/23/2023 [facility] DATE CREATED AUTHOR AUTHOR'S ORGANIZ ATION 10/25/2023 [facility] DATE CREATED AUTHOR AUTHOR'S ORGANIZ ATION 11/06/2023 [facility] DATE CREATED AUTHOR AUTHOR'S ORGANIZ ATION 11/24/2023 [facility] Source Comments (unrecognize d section and content) In the event this informatio n is protected by the Federal Confidentiality of Alcohol and Drug Abuse Patient Records regulations: The Federal rules restrict any use of the information to criminally investigate or prosecute any alcohol or drug abuse patient.[facility] FOR RECORDS PERTAINING TO PATIENTS WHO [...] BE BASED ON THE PRIMARY CLINICAL RECORDS. [facility]. provides no warranty or guarantee of the accuracy or completeness of information in this document.
[2023-11-24 13:27] LABS: Anion Gap 8.3; BUN Creatinine Ratio 19.1; Calcium 9.5 mg/dL (8.5-10.1); Carbon Dioxide 32.1 mmol/L (21.0-32.0); Chloride 102 mmol/L (98-107); Estimated GFR (African America >60 (>=60); Estimated GFR (Non-African Ame >60 (>=60); Glucose 94 mg/dL (74-106); Potassium 4.4 mmol/L (3.5-5.1); Sodium 138 mmol/L (136-145)
== END 2023-11-24 12:45 | disposition home or self-care (01) ==
LOC: LAB 12:44
PROVIDERS: PCP Family Medicine; Visit Provider Nurse Practitioner
DX: N18.1 Chronic kidney disease, stage 1 (principal)
CPT/HCPCS: 36415; 80048

== ENCOUNTER 2024-01-22 10:12 | Outpatient (OUT) | payer BC, MEDICARE, SELFPAY ==
--- NOTE | 2024-01-22 10:00 | CA_ITS ---
Patient Name: VIANEY DAVIS MR#: [id number] : 1960 Exam Date: 01/22/2024 Ordering Doctor: DR JOE LOZA M.D. ECHOCARDIOGRAM REPORT PROCEDURE: CA ECHO DOPPLER COMPLETE INDICATIONS: Atrial fibrillation COMPARISON: None. DESCRIPTION: COMPLETE ECHOCARDIOGRAM Real-time transthoracic echocardiography with 2D, M-mode, spectral and color flow Doppler performed. QUALITY: Technical quality was good. 66 , 180#, BSA 1.91 m2, BP 152/80 LEFT VENTRICLE: Normal chamber size. Normal left ventricular wall thickness. LV EF: Global left ventricular systolic function is normal; visually estimated ejection fraction is 55 to 60%. No significant wall motion abnormalities. DIASTOLIC: Grade II diastolic dysfunction. ATRIAL SEPTUM: Visually appears intact. LEFT ATRIUM: Severe dilatation. RIGHT ATRIUM: Severe dilatation. RIGHT VENTRICLE: Mild dilatation. Normal right ventricular systolic function. TRICUSPID VALVE: Normal mobility and thickness. No stenosis with mild regurgitation. Doppler studies reveal moderately (45-60) elevated right sided pressures. RVSP 50 mmHg MITRAL VALVE: Normal mobility and thickness. No evidence of mitral valve stenosis. There is no mitral annular calcification. Mild mitral regurgitation. AORTIC VALVE: Normal trileaflet appearance. No visible sclerosis. Normal leaflet mobility. No evidence of aortic valve stenosis. No aortic regurgitation. AORTIC ROOT: Normal diameter and appearance. PULMONIC VALVE: Normal thickness and mobility. No stenosis. Trivial regurgitation. PERICARDIUM: No evidence of pericardial effusion. IVC: Collapses with inspirations. IVC is normal in size. CONCLUSION: 1. Global left ventricular systolic function is normal; visually estimated ejection fraction is 55 to 60% 2. The right ventricle is mildly dilated with normal systolic function 3. Grade 2 diastolic dysfunction 4. Severe biatrial enlargement 5. Moderately elevated right ventricular systolic pressure; RVSP 50 mmHg 6. Mild tricuspid regurgitation 7. Mild mitral regurgitation Adult Echocardiography Procedure Report Left Ventricle LVEDD (3.7 - 5.6 cm): 5.24 cm LVESD (2.2 - 4.0 cm): 4.01 cm LVIVS thickness (0.6 - 1.2 cm): 1.05 cm LVPW thickness (0.5 - 1.0 cm): 1.05 cm e': 0.08 m/s E - e': 6.10 LVOT Max Gradient: 2.24 mm[Hg] LVOT Area (cm2): 0.75 m/s Peak Velocity (LVOT): 0.75 m/s Mean Velocity (LVOT): 0.46 m/s LVOT Diameter 2.44 cm Left Atrium LA Volume Index (2D A2C): 59.24 ml/m2 Left Atrium Systolic Dimension: 4.88 cm Mitral Valve MV E to A Ratio: 1.38 Mitral Valve A-Wave Peak Velocity: 0.36 m/s Mitral Valve E-Wave Peak Velocity: 0.50 m/s Right Ventricle Aorta AO Root Diam: 3.16 cm Ascending Ao Diam: 3.03 cm Aortic Valve AoV Area (Peak Tahir): 3.40 cm2, 3.40 cm2 AoV Area (VTI): 3.14 cm2, 3.14 cm2 Peak Velocity(Antegrade Flow): 1.03 m/s Peak Gradient(Antegrade Flow): 4.25 mm[Hg] Mean Velocity(Antegrade Flow): 0.67 m/s Mean Gradient(Antegrade Flow): 2.10 mm[Hg] Velocity Time Integral: 26.71 cm Tricuspid Valve Peak Velocity (Regurgitant Flow): 3.41 m/s, 2.71 m/s Pulmonic Valve Peak Gradient: 2.17 mm[Hg], 2.33 mm[Hg] Right Atrium Right Atrium Systolic Pressure: 75.00 ml, 75.00 ml Dictated by: Joe Loza M.D. on 01/24/2024 at 15:28 Approved by: Joe Loza M.D. on 01/24/2024 at 15:31
== END 2024-01-22 10:13 | disposition home or self-care (01) ==
LOC: CARD 10:12
PROVIDERS: PCP Family Medicine; Visit Provider Internal Medicine Interventional Cardiology
DX: E53.8 Deficiency of other specified B group vitamins (principal); D69.6 Thrombocytopenia, unspecified; N17.9 Acute kidney failure, unspecified; I48.0 Paroxysmal atrial fibrillation
CPT/HCPCS: 36415; 80048; 82607; 85025; 93306

== ENCOUNTER 2024-01-22 10:12 | Outpatient (OUT) | payer BC, MEDICARE, SELFPAY ==
[2024-01-22 11:11] LABS: Anion Gap 10.1; BUN Creatinine Ratio 16.9; Calcium 9.2 mg/dL (8.5-10.1); Carbon Dioxide 30.2 mmol/L (21.0-32.0); Chloride 104 mmol/L (98-107); Estimated GFR (African America >60 (>=60); Estimated GFR (Non-African Ame 59 (>=60); Glucose 97 mg/dL (74-106); Potassium 4.3 mmol/L (3.5-5.1); Sodium 140 mmol/L (136-145)
[2024-01-22 11:15] LABS: Basophils Absolute Auto 0.1 10^3/uL (0.0-0.1); Basophils Percent Auto 1.8 % (0.2-2.0); Eosinophils Absolute Auto 0.1 10^3/uL (0.0-0.7); Eosinophils Percent Auto 3.2 % (0.9-7.0); Hematocrit 41.8 % (42.0-54.0); Hemoglobin 14.2 g/dL (14.0-18.0); Lymphocytes Absolute Auto 0.7 10^3/uL (1.2-3.8); Lymphocytes Percent Auto 25.1 % (20.5-60.0); Mean Corpuscular Hemoglobin 29.7 pg (25.9-34.0); Mean Corpuscular Volume 87.4 fL (80.0-94.0); Mean Platelet Volume 9.6 fL (9.5-13.5); Monocytes Absolute Auto 0.3 10^3/uL (0.3-0.8); Monocytes Percent Auto 10.2 % (1.7-12.0); Neutrophils Absolute Auto 1.7 10^3/uL (1.4-6.5); Neutrophils Percent Auto 59.7 % (43.0-75.0); Platelet Count 116 10^3/uL (150-450); Red Blood Count 4.78 10^6/uL (4.70-6.10); Red Cell Distribution Width 13.2 % (11.0-15.0); White Blood Count 2.8 10^3/uL (4.0-11.0)
== END 2024-01-22 10:13 | disposition home or self-care (01) ==
LOC: LAB 10:13
PROVIDERS: PCP Family Medicine; Visit Provider Family Medicine
DX: E53.8 Deficiency of other specified B group vitamins (principal); D69.6 Thrombocytopenia, unspecified; N17.9 Acute kidney failure, unspecified
CPT/HCPCS: 36415; 80048; 82607; 85025

== ENCOUNTER 2024-02-26 09:57 | Outpatient (OUT) | payer BC, MEDICARE, SELFPAY ==
[2024-02-26 12:05] LABS: Thyroid Stimulating Hormone 0.036 uIU/mL (0.358-3.740)
[2024-02-26 14:56] LABS: Free T4 1.32 ng/dL (0.76-1.46)
[2024-02-27 18:13] LABS: Thyroglobulin Antibody 14.2 IU/mL (0.0-0.9); Thyroid Peroxidase (TPO) Ab 544 IU/mL (0-34)
== END 2024-02-26 09:58 | disposition home or self-care (01) ==
LOC: LAB 10:01
PROVIDERS: PCP Family Medicine; Visit Provider Internal Medicine
DX: D72.819 Decreased white blood cell count, unspecified (principal); E03.9 Hypothyroidism, unspecified; Z79.899 Other long term (current) drug therapy
CPT/HCPCS: 36415; 80048; 84439; 84443; 84481; 85025; 86376; 86800

== ENCOUNTER 2024-02-26 10:11 | Outpatient (RCR) | payer BC, MEDICARE, SELFPAY ==
[2024-02-26 10:51] LABS: Eosinophils Absolute Auto 0.1 10^3/uL (0.0-0.7); Eosinophils Percent Auto 3.1 % (0.9-7.0); Hematocrit 43.6 % (42.0-54.0); Lymphocytes Absolute Auto 0.7 10^3/uL (1.2-3.8); Lymphocytes Percent Auto 23.3 % (20.5-60.0); Mean Corpuscular HGB Conc 34.4 g/dL (29.9-35.2); Mean Corpuscular Volume 87.2 fL (80.0-94.0); Mean Platelet Volume 9.7 fL (9.5-13.5); Monocytes Absolute Auto 0.2 10^3/uL (0.3-0.8); Monocytes Percent Auto 8.3 % (1.7-12.0); Neutrophils Absolute Auto 1.9 10^3/uL (1.4-6.5); Neutrophils Percent Auto 64.3 % (43.0-75.0); Platelet Count 123 10^3/uL (150-450); Red Cell Distribution Width 13.4 % (11.0-15.0); White Blood Count 2.9 10^3/uL (4.0-11.0)
[2024-02-26 11:48] LABS: Anion Gap 12.5; BUN Creatinine Ratio 18.4; Calcium 9.2 mg/dL (8.5-10.1); Carbon Dioxide 28.7 mmol/L (21.0-32.0); Chloride 102 mmol/L (98-107); Estimated GFR (African America >60 (>=60); Estimated GFR (Non-African Ame >60 (>=60); Glucose 83 mg/dL (74-106); Potassium 4.2 mmol/L (3.5-5.1); Sodium 139 mmol/L (136-145)
== END 2024-03-24 12:21 | disposition home or self-care (01) ==
LOC: LAB 10:11
PROVIDERS: PCP Family Medicine; Visit Provider Family Medicine
DX: D72.819 Decreased white blood cell count, unspecified (principal); D70.9 Neutropenia, unspecified; Z79.899 Other long term (current) drug therapy
CPT/HCPCS: 36415; 80048; 85025

== ENCOUNTER 2024-04-05 10:16 | Outpatient (OUT) | payer BC, MEDICARE, SELFPAY ==
[2024-04-05 12:49] LABS: Basophils Percent Auto 1.1 % (0.2-2.0); Eosinophils Absolute Auto 0.1 10^3/uL (0.0-0.7); Eosinophils Percent Auto 1.7 % (0.9-7.0); Hematocrit 45.2 % (42.0-54.0); Hemoglobin 15.3 g/dL (14.0-18.0); Immature Granulocytes Abs Auto 0.01 10^3/uL (0.00-0.03); Immature Granulocytes Pct Auto 0.3 % (0.0-0.5); Lymphocytes Absolute Auto 0.9 10^3/uL (1.2-3.8); Lymphocytes Percent Auto 26.2 % (20.5-60.0); Mean Corpuscular HGB Conc 33.8 g/dL (29.9-35.2); Mean Corpuscular Hemoglobin 29.7 pg (25.9-34.0); Mean Corpuscular Volume 87.8 fL (80.0-94.0); Mean Platelet Volume 9.8 fL (9.5-13.5); Monocytes Absolute Auto 0.4 10^3/uL (0.3-0.8); Monocytes Percent Auto 10.3 % (1.7-12.0); Neutrophils Absolute Auto 2.2 10^3/uL (1.4-6.5); Neutrophils Percent Auto 60.4 % (43.0-75.0); Platelet Count 141 10^3/uL (150-450); Red Blood Count 5.15 10^6/uL (4.70-6.10); Red Cell Distribution Width 13.3 % (11.0-15.0); White Blood Count 3.6 10^3/uL (4.0-11.0)
[2024-04-05 14:23] LABS: Alanine Aminotransferase 26 U/L (16-63); Albumin Globulin Ratio 1.3; Albumin Level 3.8 g/dL (3.4-5.0); Alkaline Phosphatase 67 U/L (46-116); Anion Gap 12.3; Aspartate Amino Transferase 19 U/L (15-37); BUN Creatinine Ratio 18.9; Bilirubin Total 0.7 mg/dL (0.2-1.0); Carbon Dioxide 27.9 mmol/L (21.0-32.0); Chloride 102 mmol/L (98-107); Estimated GFR (African America >60 (>=60); Estimated GFR (Non-African Ame >60 (>=60); Glucose 85 mg/dL (74-106); Lactate Dehydrogenase 208 U/L (85-227); Potassium 4.2 mmol/L (3.5-5.1); Sodium 138 mmol/L (136-145); Total Protein 6.8 g/dL (6.4-8.2)
[2024-04-09 02:07] LABS: Immunoglobulin A, Qn, Serum 109 mg/dL (61-437); Immunoglobulin E, Total 3 IU/mL (6-495); Immunoglobulin G, Qn, Serum 881 mg/dL (603-1613); Immunoglobulin M, Qn, Serum 45 mg/dL (20-172)
== END 2024-04-05 10:17 | disposition home or self-care (01) ==
LOC: LAB 10:18
PROVIDERS: PCP Family Medicine; Visit Provider Internal Medicine Hematology & Oncology
DX: D72.819 Decreased white blood cell count, unspecified (principal); D69.6 Thrombocytopenia, unspecified
CPT/HCPCS: 36415; 80053; 82784; 82785; 83615; 85025

== ENCOUNTER 2024-04-09 07:42 | Outpatient (RCR) | payer BC, MEDICARE, SELFPAY | END 2024-04-24 23:59 | disposition home or self-care (01) | LOC: HEMC 07:42 | PROVIDERS: PCP Family Medicine; Visit Provider Internal Medicine Hematology & Oncology | DX: D72.819 Decreased white blood cell count, unspecified (principal); D69.6 Thrombocytopenia, unspecified; I50.9 Heart failure, unspecified; I48.91 Unspecified atrial fibrillation; Z87.820 Personal history of traumatic brain injury; Z80.7 Family history of other malignant neoplasms of lymphoid, hematopoietic and related tissues | CPT/HCPCS: G0463 ==

== ENCOUNTER 2024-05-16 14:32 | Outpatient (OUT) | payer BC, MEDICARE, SELFPAY ==
--- OUTSIDE RECORDS SUMMARY | 2024-05-16 14:45 | XMS_ITS | CCD ---
Author Organization [facility] Care Team Providers Care Instructional Technology Coordinator Name Role Phone Ilda Peck Primary Care Physician Moose PRIETO, Jovita Unavailable Moose PRIETO, Jovita Unavailable CISCO Flores, DR GONSALES Primary Care Unavailable HOY ., DR GONSALES Attending Unavailable HOY ., DR GONSALES Admitting Unavailable HOY ., DR GONSALES Consulting Unavailable ZIEBJATINDER, DR ALFREDITO Crawford Consulting Unavailable LUE .TAYLOR [...] THORPE ., DR SAEED Landa Admitting Unavaila ble ARAM THORPE ., DR SAEED Landa Attending Unavaila ble CANTU ., DR SAEED Landa Consulting Unavaila ble HODarwin ., DR GONSALES Primary Care Unavailable HOY ., DR GONSALES Admitting Unavailable HOY ., DR GONSALES Attending Unavailable HOY ., DR GONSALES Consulting Unavailable HOY ., DR GONSALES Primary Care Unavailable HANSEN, ERIN Consulting Unavailable SILVERMAN ., DR WINTERS Admitting [...] Unavailable Ilda Peck MD Primary Care Provider [phone] ILDA PECK Primary Care Unavailable SHAWANDA HERNANDEZ Attending Unavailable Sandoval Knight Unavailable Ilda Peck MD Primary Care Provider [phone] OSMIN ANTHONY Attending Unavaila ble ILDA PECK Referring Unavailable ILDA PECK Primary Care Unavailable MD Ilda Peck Primary Care Provider [phone] MD Tracy Griffin Attending Provider Ilda Peck Primary Care Unavailable Tracy Griffin Attending Unavailable Tracy Griffin Admitting Unavailable JEOVANNY SCOTT Referring Unavailable ELTAHAWY, EHAB Admitting Unavailable ELTAHAWY, EHAB Attending Unavailable ELTAHAWY, EHAB Referring Unavailable JEOVANNY SCOTT Referring Unavailable DEMETRA PORTER Attending Unavailable ELTAHAWY, EHAB Attending Unavailable ELTAHAWY, EHAB Attending Unavailable JEOVANNY SCOTT Attending Unavailable JEOVANNY SCOTT Attending Unavailable ELTAHAWY, EHAB Attending Unavailable TYLER JEOVANNY Referring Unavailable ELTAHAWY, EHAB Referring Unavailable ELTAHAWY, EHAB Referring Unavailable TYLER JEOVANNY Referring Unavailable GISSELL CHRISTIANSON Referring Unavailable ELTAHAWY, EHAB Referring Unavailable BITA JERI Referring Unavailable TYLER JEOVANNY Admitting Unavailable JEOVANNY SCOTT Attending Unavailable Taylor Joshua Attending Unavailable Vianey SILVERMAN Attending Unavailable Vianey SILVERMAN Attending Unavailable Vianey SILVERMAN Attending Unavailable Shawanda MEJIA Attending Unavailable Vianey SILVERMAN Attending Unavailable Vianey SILVERMAN Attending Unavailable Allergies Allergy Classification Reported Allergen(s) Allergy Type Date of Onset Reaction(s) Facility (2 sources) Ciprofloxacin; Translations: [ciprofloxacin] Drug Allergy Patient reported problems (finding) [facility] [place] (1 source) Ciprofloxacin Drug Allergy [facility] Repository (1 source) Ciprofloxacin; Translations: [Cipro] Drug Allergy [facility] Repository (1 source) No Known Medication Allergies; Translations: [No Known Medication Allergies] Propensity to adverse reactions (disorder) [facility] Repository Medications Current Medications Medication Drug [...] by mouth. apixaban 5 mg oral tablet (4 sources) Factor Xa Inhibitor Start: 06-27-2023 take 1 tablet by mouth twice daily Eliquis 5 mg oral tablet 5 mg = 1 tab(s), Oral, BID, Refills(s) 0 Start Date: 10/16/23 Status: Ordered [...] 200 mg/mL intramuscular solution (3 sources) Start: 022 Depo-Testosterone 200 mg/mL intramuscular solution 300 mg, IntraMuscular, q4wk, # 10 mL, Refills(s) 1, Pharmacy: [facility]/pharmacy #[id number], 167, cm, 10/05/21 11:32:00 EST, Height/Length Dosing, 83, kg, 10/05/21 11:32:00 EST, Weight Dosing Start Date: 01/04/22 Status: Ordered dexpanthenol 2 mg/ml / niacinamide 100 mg/ml / riboflavin 2 mg/ml / thiamine 100 mg/ml / vitamin b6 2 mg/ml injectable solution (12 sources) Start: 019 Vitamin B Complex injectable solution Refill(s) 0 [...] take 1 capsule by mouth once daily Harrah-3 Fatty Acids (FISH OIL) 1000 MG CAPS Take 1 Capsule by mouth daily. 0 Active DOCOSAHEXANOIC ACID/EPA (FISH OIL ORAL) (1 source) take 1200 mg by mouth once daily DOCOSAHEXANOIC ACID/EPA (FISH OIL ORAL) Take 1,200 mg by mouth daily. 0 Active Fish Oils (9 sources) Start: Fish Oil Oral, Refill(s) 0 Start Date: 05/07/19 Status: Ordered hydrALAZINE hydrochloride 25 mg oral tablet (1 source) Arteriolar Vasodilator Start: 024 take 1 tablet by mouth three times daily hydrALAZINE 25 mg Tab 25 mg = 1 tab(s), Oral, TID, Refills(s) 0 Start Date: 05/07/24 Status: Ordered levothyroxine sodium 0.15 mg oral tablet (20 sources) l-Thyroxine Start: take 1 tablet by mouth once daily levothyroxine 150 mcg (0.15 mg) Tab 150 mcg = 1 tab(s), Oral, Daily, Refills(s) 0 Start Date: [...] mouth once daily liothyronine 25 mcg Tab 25 mcg = 1 tab(s), Oral, Daily, Refills(s) 0 Start Date: 05/07/19 Status: Ordered Start: 02-08-2017 take 1 tablet by [facility] once daily liothyronine (CYTOMEL) 25 MCG tablet Take 1 Tablet by mouth daily. 30 Tablet 3 02/08/2017 Active Comment on above: Take 25 mcg by mouth once daily. memantine hydrochloride 5 mg oral tablet (4 sources) U-rlbwed-A-aspartat e Receptor Antagonist Start: 2 End: 2 [...] day(s), # 180 cap(s), Refills(s) 3, Pharmacy: [facility]/pharmacy #[id number], 167, cm, 10/05/21 11:32:00 EST, Height/Length Dosing, 83, kg, 10/05/21 11:32:00 EST, Weight Dosing Start Date: 11/24/21 Stop Date: 11/19/22 Status: Ordered Start: 02-08-2017 take 1 capsule by [facility] once daily tamsulosin 0.4 mg Cap 0.4 mg = 1 cap(s), Oral, Daily, # 90 cap(s), Refills(s) 3, Pharmacy: [facility]/pharmacy #[id number], 170, cm, 06/12/23 12:26:00 EDT, Height/Length Dosing, 86.5, kg, 06/12/23 12:26:00 EDT, Weight Dosing Start Date: 07/07/23 Status: Ordered take 1 capsule by [facility] every twenty-four hours in the morning tamsulosin (FLOMAX) 0.4 mg capsule,extended release 24hr Take 1 capsule (0.4 mg total) by mouth in the morning. 0 Active Comment on above: 0.4 mg once daily. testosterone cypionate 200 mg/ml injectable solution (16 sources) Androgen Start: 05-03-2023 Depo-Testosterone 200 mg/mL intramuscular solution 300 mg, IntraMuscular, q4wk, # 10 mL, Refills(s) 1, [id number] 170, cm, 12/02/22 8:17:00 EST, Height/Length Dosing, 83.2, kg, 12/02/22 8:17:00 EST, Weight Dosing Start Date: 05/03/23 Status: Ordered Start: 09-07-2022 Depo-Testoster one 200 mg/mL intramuscular solution 300 mg, IntraMuscular, q4wk, # 10 mL, Refills(s) 1, Pharmacy: [facility]/pharmacy #[id number], 167, cm, 10/05/21 11:32:00 EST, Height/Length Dosing, 83, kg, 05/10/22 10:08:00 EDT, Weight Dosing Start Date: 09/07/22 Status: Ordered Start: 01-04-2022 Depo-Testoster one 200 mg/mL intramuscular solution 300 mg, IntraMuscular, q4wk, # 10 mL, Refills(s) 1, [id number] 167, cm, 10/05/21 11:32:00 EST, [...] Start Date: 05/07/19 Status: Ordered Vitamin D (15 sources) Start: 08-31-2021 Vitamin D International_Unit, Oral, [...] take 1 capsule by mouth once daily [place] Aspartate 20 mg cap Take 1 capsule by mouth once daily. 0 Active take 1 capsule by mouth once darius ly Nutritional Supplements (CREATINE) 750 MG CAPS Take 1 Capsule by mouth daily. 0 Active Comment on above: Take 1 capsule by [facility] once daily. omega-3 fatty acids (FISH OIL [...] reaction] Onset: 1 08-24-2011 Chronic Allergic reactions (6 sources) Eczema; Translations: [Dermatitis, unspecified] Onset: 9 05-29-2019 Episodic Asthma (1 source) Asthmatic bronchitis; Translations: [Unspecified asthma, uncomplicated] 11-30-2017 Chronic Cardiac dysrhythmias (13 sources) Atrial fibrillation; Translations: [Unspecified atrial fibrillation] Onset: 6 05-29-2019 Chronic Chronic kidney disease (1 source) Chronic kidney disease stage 3; Translations: [Chronic kidney disease, stage III (moderate)] Chronic Coagulation and hemorrhagic disorders (10 sources) Platelet count below reference range; Translations: [Thrombocytopenia, unspecified] Onset: 8 05-29-2019 Chronic Conditions associated with dizziness or vertigo (1 source) Vertigo; Translations: [Dizziness and giddiness] 11-30-2017 Episodic Congestive heart failure; nonhypertensive (1 source) 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 Diseases of white blood cells (5 sources) Neutropenia, unspecified; Translations: [Neutropenia] Onset: 2 Chronic Disorders usually diagnosed in infancy, childhood, or adolescence (2 sources) Attention deficit hyperactivity disorder, predominantly inattentive type; Translations: [Other specified behavioral and emotional disorders with onset usually occurring in childhood and adolescence] 11-30-2017 Chronic Essential hypertension (3 sources) Essential (primary) hypertension; Translations: [Hypertensive disorder] Onset: 3 Chronic Genitourinary symptoms and ill-defined conditions (3 sources) Urge incontinence; Translations: [Urge incontinence of [...] unspecified chronic kidney disease] Onset: 3 Chronic Nutritional deficiencies (6 sources) Cobalamin deficiency; Translations: [Deficiency of other specified B group vitamins] Onset: 8 05-29-2019 Episodic Osteoarthritis (12 sources) Bilateral arthritis of knees; Translations: [Bilateral primary osteoarthritis of knee] Onset: 6 05-29-2019 Chronic Other aftercare (2 sources) Long-term current use of 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; Translations: [FCI (current) use of 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s] Onset: 4 Episodic Other and ill-defined cerebrovascular disease (1 source) Cerebrovascular disease 04-29-2024 Chronic Other connective tissue disease (5 sources) History [...] hypofunction] Onset: 2 Chronic Other endocrine disorders (15 sources) Male hypogonadism 03-14-2019 Chronic Other endocrine disorders (5 sources) Testicular hypofunction; Translations: [TESTICULAR HYPOFUNCTION] Onset: 2 Chronic Other endocrine disorders (4 sources) Testicular hyperfunction; Translations: [TESTICULAR HYPERFUNCTION] Onset: 3 Chronic Other injuries and conditions due to external causes (15 sources) H/O: head injury 03-14-2019 Episodic Other male genital disorders (15 sources) Secondary erectile dysfunction 08-31-2021 Chronic Other male genital disorders (5 sources) Male erectile dysfunction, unspecified; Translations: [Erectile [...] Episodic Other nutritional; endocrine; and metabolic disorders (2 sources) Overweight in adulthood with body mass index of 25 or more but less than 30; Translations: [Body mass index (BMI) 28.0-28.9, adult] Episodic Other nutritional; endocrine; and metabolic disorders (1 source) Overweight 04-29-2024 Episodic Other screening for suspected conditions (not mental disorders or infectious disease) (2 sources) Encounter for screening for malignant neoplasm of prostate; Translations: [Screening for malignant neoplasm of colon done] Onset: 2 Episodic Residual codes; unclassified (6 sources) Sleep apnea; Translations: [Sleep apnea, unspecified] [...] Spondylosis; intervertebral disc disorders; other back problems (15 sources) Cervical spine ankylosis; Translations: [Fusion of spine, cervical region] Onset: 1 11-11-2021 Episodic Thyroid disorders (6 sources) Hypothyroidism; Translations: [Hypothyroidism, unspecified] Onset: 1 06-28-2011 Chronic Unclassified (2 sources) Other persistent atrial fibrillation; Translations: [Other persistent atrial fibrillation] Onset: Unclassified (1 source) Patient encounter status 05-07-2024 Past or Other Problems Problem Classification Problem Date Documented Date Episodic/Chronic Chronic kidney disease (1 source) Chronic kidney disease Deficiency and other anemia (5 sources) Anemia; Translations: [Anemia, unspecified] Onset: 12-06-2017 05-29-2019 Episodic Intracranial injury (5 sources) Traumatic brain injury; Translations: [Unspecified intracranial injury with loss of consciousness of unspecified duration, initial encounter] Onset: 02-23-2016 02-23-2016 Episodic Other circulatory disease (2 sources) Orthostatic hypotension; Translations: [Orthostatic hypotension] Onset: 11-16-2023 11-30-2017 Episodic Other circulatory disease (2 sources) Personal history of other diseases of the circulatory system; Translations: [Personal history of other diseases of the circulatory system] Onset: 11-16-2023 Episodic Other circulatory disease (1 source) Orthostatic [...] and awareness] Onset: 08-24-2011 08-24-2011 Episodic Other skin disorders (1 source) Vitiligo; Translations: [Vitiligo] Onset: 02-25-2005 02-25-2005 Episodic Rehabilitation care; fitting of prostheses; and adjustment of devices (12 sources) Patient encounter status; Translations: [Other physical therapy] Onset: 07-05-2011 07-05-2011 Episodic Residual codes; unclassified (8 sources) Amnesia; Translations: [Other amnesia] Onset: 06-28-2011 01-08-2019 Episodic Residual codes; unclassified (2 sources) Other specified postprocedural states; Translations: [Other specified postprocedural states] Onset: 11-16-2023 Episodic Superficial injury; contusion (4 sources) Traumatic hematoma; Translations: [Contusion of unspecified part of head, initial encounter] Onset: 06-28-2011 06-28-2011 Episodic Viral infection (5 sources) Verruca vulgaris; Translations: [Viral wart, unspecified] Onset: 04-28-2005 05-29-2019 Episodic Results Test Name Value Interpretation Reference Range Facility Ambulatory Visit Summaryon 0 05-07-2024 Ambulatory Visit Summary Ambulatory Visit Summary VIANEY LACEY :1960 Visit Date:05/07/2024 Ambulatory Visit Instructions Your Diagnosis Screening for malignant neoplasm of colon Chronic anticoagulation Your Care Team Attending Physician - ROBERTO PRIETO, Shawanda Crawford Primary Care Physician - Ilda Peck MD This Is Your Medications List Contact prescribing physician if questions or concerns apixaban (Eliquis 5 mg oral tablet) ergocalciferol (Vitamin D) hydrALAZINE (hydrALAZINE 25 mg Tab) levothyroxine (levothyroxine 150 mcg (0.15 mg) Tab) liothyronine (liothyronine 25 mcg Tab) tamsulosin (tamsulosin 0.4 mg Cap) Procedures Performed Cystourethroscopy with dilation of urethral stricture (12/21/2016), Colonoscopy (08/2009), Arthroscopy of shoulder, Cardioversion, Cervical spinal fusion, Knee arthroplasty, Repair of left inguinal hernia, Rotator cuff repair, JAMIN procedure. Discharge Vitals Heart Rate (Peripheral) 68 Respiratory Rate 16 Blood Pressure 118/84 Height 170 cm Height 67 in Weight 83 kg Weight 182.6 lb BMI 28.72 What to do next Scheduled Follow-Up Appointments Monday 10:15 AM EST With: HERRERA PRIETO, Vianey Crawford Where: [facility] [address] [place] [phone]- Medications What How Much When Instructions Unchanged apixaban (Eliquis 5 mg oral tablet) 1 Tablets By Mouth 2 times a day Contact prescribing physician if questions or concerns Unchanged ergocalciferol (Vitamin D) By Mouth Every week Contact prescribing physician if questions or concerns Unchanged hydrALAZINE (hydrALAZINE 25 mg Tab) 1 Tablets By Mouth 3 times a day Contact prescribing physician if questions or concerns Unchanged levothyroxine (levothyroxine 150 mcg (0.15 mg) Tab) 1 Tablets By Mouth Every day Contact prescribing physician if questions or concerns Unchanged liothyronine (liothyronine 25 mcg Tab) 1 Tablets By Mouth Every day Contact prescribing physician if questions or concerns Unchanged tamsulosin (tamsulosin 0.4 mg Cap) 1 Capsules By Mouth Every day Contact prescribing physician if questions or concerns Allergies Cipro (Patient reported problems) Problems Ongoing - Any problem that you are currently receiving treatment for. Acute combined systolic (congestive) and diastolic (congestive) heart failure ADD (attention deficit disorder) Atrial fibrillation BMI 28.0-28.9,adult BPH with urinary obstruction Chronic anticoagulation CVD (cerebrovascular disease) Eczema ED (erectile dysfunction) H/O head injury HTN (hypertension) Hypogonadism male Hypothyroidism Lumbar radiculopathy Male impotence Neutropenia Nocturia Overweight Protein in urine Screening for malignant neoplasm of colon Sleep apnea Spinal stenosis Thrombocytopenia Urge incontinence Vitamin B12 deficiency Weak urine stream Patient Survey You may receive a survey via text or e-mail asking about your office visit. Please share your experience with us by completing your survey. We appreciate your feedback and thank you for choosing us for your care. Normal [facility] 36on 04-11-2024 36 Patient needs scheduled for colonoscopy and would like to know if he can hold Makayla prior. Please advise. Thanks! Normal [facility] Luther 04-05-2024 L Specimen: [id number] Received: 04/08/24 Status: ROYER Fernandes Num: [id number] Spec Type: Impression Subm Dr: Tracy Griffin MD Tissues: PATHPER Procedures: PATHREVIEW Age/ Patient Sex Location Account Attending Physician Vianey Lacey 64/M [facility] [id number] Tracy Griffin MD SPEC NUM: [id number] RECD: 04/08/24 STATUS: ROYER REQ NUM: [id number] LADONNA: 04/05/[address]: Tracy Griffin MD ENTERED: 04/08/24 [facility] DR: [facility] SPEC TYPE: Impression DEPT: SB Grey ENTERED BY: [id number] RECV BY: [id number] ORDERED: PATHREVIEW ORDERED: PATHREVIEW Pathologist Review Abnormal CBC for peripheral blood smear review -Mild leukopenia with mild lymphocytopenia -Mild thrombocytopenia -No obvious abnormal change of all other hematologic indices -No morphological abnormality of the platelet population -No morphological abnormality of the leukocyte population except minor suspected toxic change of the segments Comment: -Low total white blood cell count can occasionally be associated with certain racial patient population of note. Lymphocytopenia can occasionally occur in association with immunosuppression by antineoplastics, corticosteroid, or a history of radiation therapy. The cause of borderline thrombocytopenia is also not clear in this case, including certain treatment related marrow suppression, requiring clinical correlation and continuous laboratory follow-up. Review of the chemistry also are mostly within normal range. Leukopenia in general can be associated with bone marrow failure or hypoplastic marrow, bone marrow infiltration including marrow fibrosis, and overwhelming infections such as sepsis, and drug toxicity including cytotoxic chemotherapy. Other causes of leukopenia may include hypersplenism or autoimmune disease, again requiring clinical correlations CPT: 67520 ---- ---- Specimen: [id number] Received: 04/08/24 Status: ROYER Fernandes Num: [id number] Spec Type: Impression Subm Dr: Tracy Griffin MD Tissues: PATHPER Procedures: PATHREVIEW ---- Patient: Vianey Lacey [id number] (Continued) ---- Signed (signature on file) Memo Morrison MD 04/09/24 1024 Normal [facility] 02-07-2024 36 Blood pressure meds read outs: @ 5:45pm 176/91. Heart rate. @ 10:30 pm 160/90 Heart rate. @ 10:45am 154/98. Heart rate 46 @ 6:40 pm 163/91. Heart rate 59 December- @ 10:00 am 164/88. Heart rate 57 December- @ 6:30 pm 176/93 Heart rate 68 @ 10:15am 161/95 Heart rate 48 December @ 6:45pm 165/78 Heart rate 62 @ 10:40pm 128/72 Heart rate 55 @ 10:40am 151/85 Heart rate 50 @ 3:15pm 162/88 Heart rate 53 @ 11:00am 158/86 heart rate 55 December 30 at 5:30pm 172/89 heart rate 62 @ 11:30pm 171/90, heart rate 5 @11:30am 152/82, heart rate 51 , @10:40pm 166/85 heart rate 55 @ 11:10pm 155/81 heart rate 58 @ 8:50am 153/83 heart rate 56 @ 6:45pm 143/78 heart rate 59 @ 11:45 pm 144/70 heart rate 57 January 02 @ 11:00am 143/79 heart rate 58 January 02 @ 7:00 pm 136/77 heart rate61 January 02 @ 11:15pm 154/90 January 03 @10:30am 143/83. Heart rate. 62 January 03 @ 1:30pm 146/83 heart rate 60 January 03 @ 10:20pm 147/80 heart rate 54 January 04 @ 11:30 161/88 heart rate 58 January 04 @ 11:20pm 166/91 heart rate 61 January 19 @ 11:00am 152/85 heart rate 51 January 20 @ 11:45pm 163/79 heart rate 55 January 20 at 12:10pm 144/80 heart rate56 Thank you, [facility] Office Visiton 02-07-2024 Follow-up visit [id number] Lane Lacey 1960 M Date Provider Department Center 02/07/2024 Isa-GEORGE LOZA [facility] Family History Problem Relation Age of Onset Cancer Mother Diabetes Mother Coronary artery disease Father Stroke Father Cancer Father Family Status - Relation Status Age at Mother Father Level of Service:86230 AL OFFICE/OUTPATIENT ESTABLISHED MOD MDM 30 MIN [facility] Office Visiton 12-26-2023 Follow-up visit [id number] Lane Lacey 1960 M Date Provider Department Center 12/26/2023 241-JEOVANNY SCOTT [facility] Family History Problem Relation Age of Onset Cancer Mother Diabetes Mother Coronary artery disease Father Stroke Father Cancer Father Family Status - Relation Status Age at Mother Father Level of Service:72176 AL OFFICE/OUTPATIENT ESTABLISHED LOW MDM 20 MIN Reason for Visit and Comments: Follow-up [175235] [facility] 36on 11-24-2023 36 Questioned rather to continue asa along with eliquis as ordered by inpatient stay due to possible TIA. states to f/u with neurology.also questioned if he should be back on hypertensive meds as they were stopped due to bradycardia.instructed to monitor BP and HR TID for 3 days and report the findings.otherwise feeling ok,still tired.eating and drinking ok, catheter site healed,taking all other meds including antacids. [facility] Telephoneon 11-24-[id number] Lacey 1960 M Date Provider Department Center 11/24/2023 1987-TAYLOR PEREZ [facility] Family History Problem Relation Age of Onset Cancer Mother Diabetes Mother Coronary artery disease Father Stroke Father Cancer Father Family Status - Relation Status Age at Mother Father Reason for Visit and Comments: week post ablation f/u [Other] [facility] 30on 11-17-2023 30 Daily Case Managemen t Update Multidisciplinary rounds have been completed. Barriers to Discharge: Pending clinical course and improvement in clinical condition. Stroke alert called for patient and underwent CTA head/neck and CT of head. Await Cardiology recommendations. Plan for home no needs upon discharge when medically ready. Diet: Dietary Orders (From admission, onward) Start Ordered 11/16/23 1826 Regular Diet Heart Healthy/HTN, CABG,Stroke, (2gNA, low fat, low cholesterol) Diet effective now Question Answer Comment Room Service? Yes Fat restriction: Heart Healthy/HTN, CABG,Stroke, (2gNA, low fat, low cholesterol) 11/16/23 1825 Physician Expected Discharge Date: 11/17/2023 Discharge Delays: PT Six Click Score: 24 OT Six Click Score: PT Recommendations: OT Recommendations: New Consults: [facility] 30 The patient is Moderately Stable [...] facility with appropriate resources Outcome: Progressing Normal [facility] BASIC METABOLIC PANELon - Anion gap [Moles/Vol] 8 mmol/L Normal 7-20 [facility] Comment on above: Performed By: #### L AB15 #### [facility] ([facility]) [address] [place] [address] Calcium [Mass/Vol] 8.6 mg/dL Normal 8.6-10.3 [facility] Comment on above: Performed By: #### L AB15 #### [facility] ([facility]) [address] [place] [address] Chloride [Moles/Vol] 102 mmol/L Normal 98-107 [facility] Comment on above: Performed By: #### L AB15 #### [facility] ([facility]) [address] [place] [address] CO2 [Moles/Vol] 31 mmol/L Normal 21-31 [facility] Comment on above: Performed By: #### L AB15 #### [facility] ([facility]) [address] [place] [address] Creatinine [Mass/Vol] 1.17 mg/dL Normal 0.70-1.30 [facility] Comment on above: Performed By: #### L AB15 #### [facility] ([facility]) [address] [place] [address] GLOMERULAR FILTRATION RATE ML/MIN/1.73 SQ M.PREDICTED 69.6 mL/min/1.73m*2 Normal >60.0 [facility] Comment on above: Result Comment: [facility]???s estimated glomerular filtration rate (eGFR) will no [...] individuals. Performed By: #### L [id number] #### [facility] ([facility]) [address] [place] [address] Glucose [Mass/Vol] 95 mg/dL Normal 70-100 [facility] Comment on above: Performed By: #### L [id number] #### [facility] ([facility]) [address] [place] [address] Potassium [Moles/Vol] 3.8 mmol/L Normal 3.5-5.1 [facility] Comment on above: Performed By: #### L [id number] #### [facility] ([facility]) [address] [place] [address] Sodium [Moles/Vol] 137 mmol/L Normal 136-145 [facility] Comment on above: Performed By: #### L [id number] #### [facility] ([facility]) [address] [place] [address] Urea nitrogen [Mass/Vol] 19 mg/dL Normal 7-25 [facility] Comment on above: Performed By: #### L [id number] #### [facility] ([facility]) [address] [place] [address] UREA NITROGEN/CREATININE (MASS RATIO) IN SER/PLAS 16.2 Normal [facility] Comment on above: Performed By: #### L [id number] #### [facility] ([facility]) [address] [place] [address] CBCon 11-17-2023 Erythrocyte distribution width (RBC) [Ratio] 13.7 % Normal 11.5-15.0 [facility] Comment on above: Performed By: #### L [id number] #### [facility] ([facility]) [address] [place] [address] ERYTHROCYTE MEAN CORPUSCULAR HEMOGLOBIN CONCENTRATION (G/DL) BY AUTOMATED 34.7 g/dL Normal 32.0-35.0 [facility] Comment on above: Performed By: #### L [id number] #### [facility] ([facility]) [address] [place] [address] Hematocrit (Bld) [Volume fraction] 40.3 % Normal 39.0-55.0 [facility] Comment on above: Performed By: #### L [id number] #### [facility] ([facility]) [address] [place] [address] Hemoglobin (Bld) [Mass/Vol] 14.0 g/dL Normal 13.0-17.0 [facility] Comment on above: Performed By: #### L [id number] #### [facility] ([facility]) [address] [place] [address] IMMATURE PLATELET FRACTION % 2.1 % Normal 0.8-6.3 [facility] Comment on above: Performed By: #### L [id number] #### [facility] ([facility]) [address] [place] [address] MCH (RBC) [Entitic mass] 30.4 pg Normal 27.0-33.0 [facility] Comment on above: Performed By: #### L [id number] #### [facility] ([facility]) [address] [place] [address] MCV (RBC) [Entitic vol] 87.4 fL Normal 82.0-98.0 [facility] Comment on above: Performed By: #### L [id number] #### [facility] ([facility]) [address] [place] [address] PLATELETS (10*3/UL) IN BLOOD AUTOMATED COUNT 122 10*3/uL Low 150-400 [facility] Comment on above: Performed By: #### L [id number] #### [facility] ([facility]) [address] [place] [address] RBC (Bld) [#/Vol] 4.61 10*6/uL Normal 4.20-5.70 [facility] Comment on above: Performed By: #### L [id number] #### [facility] ([facility]) [address] [place], [place] [address] WBC (Bld) [#/Vol] 6.76 10*3/uL Normal 4.00-10.60 [facility] Comment on above: Performed By: #### L [id number] #### [facility] ([facility]) [address] [place] [address] CONSULTon 11-17-2023 CONSULT Reason For Consult Stroke alert Referring Provider: Columba, Cardiology [employer] History Of Present Illness ODILON Lacey is a 63 y.o. male presenting with hx of TBI, sleep apnea, paroxysmal atrial fibrillation, hypothyroidism and low testosterone levels here after recent JAMIN and cardioversion. He was given a monitor which revealed episodes of Afib with RVR. His symptoms of chest pain, shortness of breath. He continues to have fatigue. He notices that his heart rate is as low as 37 when sitting watching TV. He denies significant lightheadedness or dizziness. He has no syncope. Notably, he was recently taken offHis testosterone due to concerns regarding kidney function. He is also recently seen a body joiner. They are weaning of amantadine which was started in the past after a closed head injury. On Nov 16 Patient underwent ablation for atrial fibrillation. A JAMIN was performed in the [facility] without complications Anesthesia Pharyngeal anesthesia with viscous [...] patient's rhythm was converted to sinus rhythm This morning Pt complained of Lt eye vision change at 8am- Left eye 1/2 of my vision looked like a wavy curtain- foggy and then resolved Episode lasted 10 minutes and resolved spontaneously. Cardiology [employer] SUPERVISOR called a stroke alert. Pt was in bed. NIH=0. No visual changes elicited with EOMs. Patient taken to CT for Head CT and H/Neck CTA. Dr Dawn Marcos, Stroke Fellow notified of Pt and case discussed. If Pt had a left eye clot it has passed and resolved. Treatment would be anti coagulation. Patient NIH=0 when he returned to his room. Pt feels back to baseline. Past Medical History He has a past medical history of Abnormal ECG, Arrhythmia, Atrial fibrillation (CMS/HCC), Heart valve disease, Hypothyroidism, and Sleep apnea. Surgical History He has a past surgical history that includes Replacement total knee oncologic; Back surgery; Shoulder surgery; and Hernia repair. Family History Family History Problem Relation Name Age of Onset Cancer Mother Diabetes Mother Coronary artery disease Father Stroke Father Cancer Father Social History He reports that he has never smoked. He has never used smokeless tobacco. He reports current alcohol use. No history on file for drug use. Allergies Patient has no known allergies. Medications Medications Prior to Admission Medication Sig Dispense Refill Last Dose carvedilol (Coreg) 6.25 mg tablet Take 1 tablet (6.25 mg) by mouth with breakfast and with evening meal. 180 tablet 3 11/16/2023 Eliquis 5 mg tablet Take 5 mg by mouth in the morning and at bedtime. Past Week liothyronine (Cytomel) 25 mcg tablet Take 0.5 tablets by mouth in the morning. 11/15/2023 tamsulosin (Flomax) 0.4 mg 24 hr capsule Take 1 capsule every day by oral route for 90 days. 11/15/2023 vitamin B complex 525-0-652-2-2 mg/mL injection Inject into the shoulder, thigh, or buttocks every 30 (thirty) days. Last dose 10/27/23 11/15/2023 amantadine (Symmetrel) 100 mg capsule Take 1 capsule every day by oral route for 30 days. levothyroxine (Synthroid, Levoxyl) 150 mcg tablet Take 137 tablets by mouth before breakfast. Active Hospital Medications Medication Dose Route Frequency Last Admin apixaban 5 mg oral BID 5 mg at 11/16/232124 famotidine 20 mg oral BID 20 mg at 11/16/232124 lactated Ringer's 30 mL/hr intravenous Continuous 30 mL/hr at 11/16/232217 liothyronine 12.5 mcg oral q AM pantoprazole 40 mg oral BID AC 40 mg at 11/17/23 0541 prochlorperazine 5 mg intravenous Once PRN sodium chloride 10 mL intravenous q8h PRN sucralfate 1 g oral Before meals & nightly 1 g at 11/17/23 0541 tamsulosin 0.4 mg oral Daily 0.4 mg at 11/16/23 1828 Review of Systems See HPI, otherwise ROS negative as below CONSTITUTIONAL: negative HEENT: headache RESPIRATORY: negative CARDIOVASCULAR: negative GASTROINTESTINAL: negative GENITOURINARY: negative INTEGUMENT/BREAST: negative HEMATOLOGIC/LYMPHATIC: negative ALLERGIC/IMMUNOLOGIC: negative ENDOCRINE: negative MUSCULOSKELETAL: negative NEUROLOGICAL: negative BEHAVIOR/PSYCH: negative Last Recorded Vitals Patient Vitals for the past 24 hrs: BP Temp Temp src Pulse Resp SpO2 Height Weight 11/17/23 0955 -- -- -- 80 10 98 % -- -- 11/17/23 0800 128/82 -- Temporal 73 18 96 % -- -- 11/17/23 0500 -- -- -- -- -- -- -- 84.9 kg (187 lb 2.7 oz) 11/17/23 0400 121/89 36.5 ???C (more content not included)... Normal [facility] CT HEAD WO IV CONTRASTon CT HEAD [...] as reasonably achievable. Electronically signed: Apolinar Julian. Normal [facility] CTA HEAD W IV CONTRASTon CTA [...] malformation of the major vessels of the [place] of [place]. Mild calcified plaque without stenosis of bilateral intracranial internal carotid arteries. IMPRESSION: No evidence for high-grade stenosis or occlusion of the major vessels of the [place] of [place]. Electronically signed: Apolinar Julian. Normal [facility] CTA NECK W IV CONTRASTon CTA [...] concurrent physician supervision and reviewed. The [place] Symptomatic Carotid Endarterectomy Trial (NASCET) method for [...] as reasonably achievable Electronically signed: Apolinar Julian. [facility] DSon 11-17-2023 DS -- Attestation signed by Jeovanny Scott MD at [...] Commonly known as: Flomax vitamin B complex 298-8-827-2-2 mg/mL injection Notes to patient: Take as directed. STOP taking these medications carvedilol 6.25 mg tablet Commonly known as: Coreg Where to Get Your Medications These [facility] [address] [place] [address] [facility] [place] [address], [facility] [address] famotidine 20 mg tablet levothyroxine 150 mcg [...] Skin is (more content not included)... Normal [facility] HEMOGLOBIN A1Con 11-17-2023 Glucose [Mass/Vol] 108 mg/dL [facility] Comment on above: Performed By: #### L [id number] ####[facility] ([facility])[address] [place] [address] HbA1c (Bld) [Mass fraction] 5.4 % Normal 4.0-6.0 [facility] Comment on above: Performed By: #### L [id number] ####[facility] ([facility])[address] [place] [address] LIPID PANELon 11-17-2023 CHOL/HDL 4.7 mg/dL Normal [facility] Comment on above: Performed By: #### L [id number] #### [facility] ([facility]) [address] [place] [address] Cholesterol [Mass/Vol] 154 mg/dL Normal 120-200 [facility] Comment on above: Performed By: #### L [id number] #### [facility] ([facility]) [address] [place] [address] Magnesium [Mass/Vol] 138 mg/dL Normal 40-149 [facility] Comment on above: Result Comment: TRIG LYCERIDE REFERENCE RANGE: 20 YEARS AND OLDER CARDIOVASCULAR RISK LESS THAN 150 mg/dL LOW RISK 150 TO 199 mg/dL BORDERLINE RISK 200 mg/dL AND GREATER HIGH RISK Performed By: #### L [id number] #### [facility] ([facility]) [address] [place] [address] Magnesium [Mass/Vol] 93 mg/dL Normal 0-160 [facility] Comment on above: Performed By: #### L [id number] #### [facility] ([facility]) [address] [place] [address] Magnesium [Mass/Vol] 33 mg/dL Normal 23-92 [facility] Comment on above: Performed By: #### L [id number] #### [facility] ([facility]) [address] [place] [address] NON HDL CHOL. (LDL+VLDL) 121 Normal [facility] Comment on above: Performed By: #### L [id number] #### [facility] ([facility]) [address] [place] [address] TOTAL VLDL-C 28 mg/dL Normal 0-40 [facility] Comment on above: Performed By: #### L [id number] #### [facility] ([facility]) [address] [place] [address] MR BRAIN WO CONTRASTon 11-17 MR BRAIN [...] of acute infarction. Electronically signed: Mahesh Ocampo. [facility] Orders Onlyon 11-17-[id number] Lacey 1960 M Date Provider Department Center 11/17/2023 JERI HOOPERaren [facility] Family History Problem Relation Age of Onset Cancer Mother Diabetes Mother Coronary artery disease Father Stroke Father Cancer Father Family Status - Relation Status Age at Mother Father [facility] 30on 11-16-2023 30 Problem: Pain - Adul t Goal: [...] did make progress toward the following [facility] Electrophysiology Consult Note Reason for visit: Afib [...] function. He is also recently seen a body joiner. They are weaning of amantadine which was [...] route for 90 days. vitamin B complex 401-0-821-2-2 mg/mL injection Refill(s) 0 No current facility-administered [...] Musculoskeletal Ins (more content not included)... Normal [facility] NURSNOTEon 11-16-2023 NURSNOTE Lens Blocker enters [facility] room around 1950 to assess his right groin cath site, and notices that the site is oozing. Site is still soft, no hematoma suspected. Lens Blocker called cardiology to notify them of the situation. Cardiology would like the patient to lay flat for another hour, and to hold his eliquis for an hour. Rn also held pressure for 10 minuets. Lens Blocker will keep cardiology updated on the situation. Normal [facility] POCT GLUCOSE METER UNSOLICIT ED RESULTSon 11-16-2023 Glucose [Mass/Vol] 88 mg/dL Normal 70-105 [facility] Comment on above: Order Comment: Waive d Testing in the ED is performed under the ED CLIA certificate #[id number]. Result Comment: asor ia3 Performed By: #### L [id number] #### [facility] ([facility]) [address] [place] [address] PROTIME-INRon 11-16-2023 INR IN PPP BY COAGULATION ASSAY 1.11 High 0.90-1.10 [facility] Comment on above: Result Comment: ACCC [...] 1995;108:231S-246S. 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 Do not wear perfume, make-up, nail syriac, or lotions on the day of your [...] need to make any changes, please call [phone]. Notify your surgeon if you develop any illness such as a cold, cough, fever, sore throat or vomiting between now and your surgery. Thank you for entrusting us with your care. [facility] Surgical Services Team Normal [facility] $ Large Joint Injection: Ty fang 11-02-2023 Osmin Anthony MD 11/02/2023 11:03 AM $ Large Joint [...] with betadine and alcohol.). MANUALLY TRANSCRIBED RESULTS [facility] Office Visiton 10-30-2023 Follow-up visit [id number] Lane Lacey 1960 M Date Provider Department Center 10/30/2023 Cathy6-DEMETRA P[facility] Family History Problem Relation Age of Onset Cancer Mother Diabetes Mother Coronary artery disease Father Stroke Father Cancer Father Family Status - Relation Status Age at Mother Father Level of Service:19893 AL OFFICE/OUTPATIENT ESTABLISHED MOD MDM 30 MIN Normal [facility] Physician Referralon 024 Physician Referral [id number] 0TIFF Normal [facility] Lab Reportson 10-17-2023 Lab Reports [id number] TIFF Normal [facility] Ambulatory Visit Summaryon 0 10-16-2023 Ambulatory Visit Summary VIANEY LACEY :1960 Visit Date:10/16/2023 Ambulatory Visit Instructions Your Diagnosis BPH with urinary obstruction Hypogonadism male Urge incontinence ED (erectile dysfunction) Tests Performed Urnls Dip Stick Auto w/o Microscopy POC 69764 Your Care Team Attending Physician - Vianey [...] PRIETO, Vianey Crawford Where: [facility] Gilma Normal [facility] Patient Educationon 10-16-19 Patient Education [...] provider. Document Revised: 01/20/2022 Document Reviewed: 01/20/2022 [employer] Patient Education ? 2022 [employer]. [facility] Urology Office/Clinic Noteon 10-16-2023 Urology Office/Clinic [...] heart. Follow-up With When Contact Information Vianey SILVERMAN MD, URL In 1 year [facility] [address], [place] [address]- Additional Instructions: w/PSA Patient Education Kejayna Contreras I, Megan Brunson , personally scribed for Dr. Silverman on 10/16/2023 14:05:07. . Documentation recorded by the scribe, Megan Brunson, accurately reflects the services(s) I performed and decisions made by me. Problem List/Past Medical History Ongoing BPH with urinary obstruction ED (erectil (more content not included)... Normal [facility] Comment on above: Result Comment: Elec tronically Signed By: Vianey SILVERMAN MD\.br\Date and Time Signed: 10/16/23 14:10 EST\.br\Electronically Co-Signed By: Megan Brunson\.br\Date and Time Co-Signed: 10/16/23 14:05 EST Letter (Out)on 10-13-2023 Letter (Out) [id number] Lane Lacey J 1960 M Date Provider Department Center 10/13/2023 None-None [facility] AUTH ID Medical C Family History Problem Relation Age of Onset Cancer Mother Diabetes Mother Coronary artery disease Father Stroke Father Cancer Father Family Status - Relation Status Age at Mother Father Normal [facility] Orders Onlyon 09-27-[id number] Lacey zonia Mcintosh 1960 [facility] Provider Department Center 09/27/2023 928-ISHMAEL SY [facility] Family History Problem Relation Age of Onset Cancer Mother Diabetes Mother Coronary artery disease Father Stroke Father Cancer Father Family Status - Relation Status Age at Mother Father Normal [facility] Prep for Procedureon 024 Prep for Procedure [id number] [address] Lacey zonia Mcintosh 1960 [facility] Provider Department Center 09/27/2023 1987-TAYLOR PEREZ [facility] LAB ID HeartVAS Family History Problem Relation Age of Onset Cancer Mother Diabetes Mother Coronary artery disease Father Stroke Father Cancer Father Family Status - Relation Status Age at Mother Father Normal [facility] Telephone Encounteron 2022 Ladle Liner Helper Authentication Interface Message Text Patient has not been seen by this specialist in more than 1 year. Please contact patient to schedule office visit. Thank you Normal [facility] [employer] [facility] Office Visiton 09-08-2023 Follow-up visit [id number] Lane Lacey zonia Mcintosh 1960 [facility] Provider Department [place] 09/08/2023 241-JEOVANNY SCOTT [facility] Family History Problem Relation Age of Onset Cancer Mother Diabetes Mother Coronary artery disease Father Stroke Father Cancer Father Family Status - Relation Status Age at Mother Father Level of Service:34471 AL OFFICE/OUTPATIENT NEW MODERATE MDM 45 MINUTES Reason for Visit and Comments: Follow-up [193726] - Seen George Loza 08/10/2023 [facility] Office Visiton 08-10-2023 Follow-up visit [id number] Lane Lacey zonia Mcintosh 1960 [facility] Provider Department [place] 08/10/2023 271-GEORGE LOZA [facility] Family History Problem Relation Age of Onset Cancer Mother Diabetes Mother Coronary artery disease Father Stroke Father Cancer Father Family Status - Relation Status Age at Mother Father Level of Service:20599 AL OFFICE/OUTPATIENT ESTABLISHED MOD MDM 30-39 MIN Normal [facility] Orders Onlyon 08-10-2023 Orders Only [id number] AbhijitLane Mcintosh 1960 Date Provider Department [place] 08/10/2023 NEO TAYLOR MAXWELL [place] [facility] Family History Problem Relation Age of Onset Cancer Mother Diabetes Mother Coronary artery disease Father Stroke Father Cancer Father Family Status - Relation Status Age at Mother Father [facility] HPon 07-11-2023 HP H&P reviewed. The patient was examined and there are no changes to the H&P. George Loza MD, MPH, FACC, [facility] Interventional Cardiology Pager Email: [email or web address] .[facility] NURSNOTEon 07-11-2023 NURSNOTE Pt performed and passed bedside swallow study. RN educated pt on d/c instructions. RN encouraged pt to voice any questions or concerns. Pt verbalizes no questions or concerns at this time. Pt was wheeled off of unit with all of belongings. [facility] NURSNOTE Pre certification no t yet gone through, per Dr. Loza he will ensure the bill is taken care of. [facility] Orders Onlyon 07-11-2023 Orders Only [id number] AbhijitLane Mcintosh 1960 Date Provider Department [place] 07/11/2023 6143-WILLIAM PIZANO [facility] INF Stephanie Heal Family History Problem Relation Age of Onset Cancer Mother Diabetes Mother Coronary artery disease Father Stroke Father Cancer Father Family Status - Relation Status Age at Mother Father [facility] Telephoneon 07-10-[id number] Lacey 1960 Date Provider Department [place] 07/10/2023 XU HAY [facility] VAS LAB ID HeartVAS Family History Problem Relation Age of Onset Cancer Mother Diabetes Mother Coronary artery disease Father Stroke Father Cancer Father Family Status - Relation Status Age at Mother Father [facility] Letter (Out)on 07-05-2023 Letter (Out) [id number] Lane Lacey 1960 M Date Provider Department Center 07/05/2023 None-None [facility] AUTH ID Medical C Family History Problem Relation Age of Onset Cancer Mother Diabetes Mother Coronary artery disease Father Stroke Father Cancer Father Family Status - Relation Status Age at Mother Father [facility] 36on 07-03-2023 36 Patient's cornejo mallory stating Dr. Peck stopped lasix after lab results today (in media consultant for your review). also wants to know [...] on status of cath. Thanks. [facility] HP 06-28-2023 [facility] Cardiology Clinic Note Chief Complaint: Patient here to re-establish care for PAF. Was last seen in [address] Peck. Had echo and ECG yesterday. states they recently returned home from [place]. While they were there, he had intermittent SOB with very swollen ankles. 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 Feeling chest pressure. He is in the process of getting a cpap machine for NANCY. HPI: ODILON Lacey is a 63 y.o. male known to me from prior office visits and his - Nitza Addison who works at [employer]. He has a known h/o PAF in the past ([id number]) thought to be related to thyroid issues [...] ST-T wave changes Assessment: Paroxysmal atrial fibrillation, [id number] score of 2-3 Chest pain - unstable [...] (more content not included)... Normal [facility] Office Visiton 06-28-2023 Follow-up visit [id number] Lane Lacey 1960 [facility] Provider Department Center 06/28/2023 GEORGE PALENCIA Family History Problem Relation Age of Onset Cancer Mother Diabetes Mother Coronary artery disease Father Stroke Father Cancer Father Family Status - Relation Status Age at Mother Father Level of Service:57161 AL OFFICE[facility]OUTPATIENT [facility] [place] 60-74 MINUTES Normal [facility] Orders Onlyon 06-28-[id number] 1960 [facility] Provider Department Center 06/28/2023 NEO TAYLOR Family History Problem Relation Age of Onset Cancer Mother Diabetes Mother Coronary artery disease Father Stroke Father Cancer Father Family Status - Relation Status Age at Mother Father Normal [facility] Patient Educationon 06-12-20 Patient Education Urology [...] Follow these instructions at home: ? Take wjhj-smd-mueripd and prescription medicines only as told by [...] 05/13/2021 Document (more content not included)... Normal [facility] Urology Office/Clinic Noteon 06-12-2023 Urology [...] 6 months [facility] [address] [place] [address] [phone] Additional Instructions: w/Testosterone Level, PSA and CBC [...] tamsulosin 0.4 m (more content not included)... [facility] Comment on above: Result Comment: Elec tronically Signed By: Vianey SILVERMAN MD\.br\Date and Time Signed: 06/12/23 13:23 EDT\.br\Electronically Co-Signed By: Megan Brunson\.br\Date and Time Co-Signed: 06/12/23 13:20 EDT Lab Reportson 05-22-2023 Lab Reports [id number] [facility] CNOVon 04-26-2023 CNOV Office Visit (SPMESH ) CORINNEVIANEY AGUILERA ([id number]) 1960 M Date Time Provider Department 04/26/23 11:00 AM [facility] During your visit today, we recorded the [...] disc disease CVA (cerebral vascular accident) ([facility]) due to head trauma Dysarthria Eczema Hypothyroidism [...] by mouth twice daily. GLUCOSAMINE HCL/CHONDROITIN ARANDA (GLUCOSAMINE-CHONDROIT IN) 750-600 mg chew Take 750 mg by [...] palpable masses (more content not included)... [facility] TESTOSTERONE, TOTALon 2022 Testosterone [Mass/Vol] 347 ng/dL Normal 264-916 [facility] Comment on above: Result Comment: Adul t male reference interval is based on a population of healthy nonobese males (BMI <30) between 19 and 39 years old. stephania Salinas.al. JCEM 2017,102;8387-6021. PMID: [id number]. Performed By: #### T ESTTOT #### [facility] [address] [address] [address] Reuben Morrison XR TSPINE 3 VIEWSon 11-18-19 23 XR [...] ALFREDITO LOAIZA Date: 2022-11-18 16:11 Normal [facility] TESTOSTERONE, TOTALon 2022 Testosterone [Mass/Vol] 993 ng/dL Critically high 264-916 [facility] Comment on above: Result Comment: Adul t male reference interval is based on a population of healthy nonobese males (BMI <30) between 19 and 39 years old. Brad, et.al. JCEM 2017,102;3037-3116. PMID: [id number]. Performed By: #### T ESTTOT #### [facility] [address] [address] [address] Reuben Morrison CBC AUTO DIFFon 06-15-2022 BASO # 0.0 103/ul Normal 0.0-0.1 [facility] Comment on above: Performed By: #### C BC #### [facility] [address] [address] [address] Reuben Morrison Basophils/100 WBC (Bld) 0.4 % Normal 0.2-2.0 [facility] Comment on above: Performed By: #### C BC #### [facility] [address] [place] [address] Dr. Reuben Morrison EO # 0.1 103/ul Normal 0.0-0.7 [facility] Comment on above: Performed By: #### C BC #### [facility] [address] [place] [address] Dr. Reuben Morrison Eosinophils/100 WBC (Bld) 1.3 % Normal 0.9-7.0 [facility] Comment on above: Performed By: #### C BC #### [facility] [address] [place] [address] Dr. Reuben Morrison Erythrocyte distribution width (RBC) [Ratio] 14.3 % Normal 11.0-15.0 [facility] Comment on above: Performed By: #### C BC #### [facility] [address] [place] [address] Dr. Reuben Morrison Hematocrit (Bld) [Volume fraction] 48.9 % Normal 42.0-54.0 [facility] Comment on above: Performed By: #### C BC #### [facility] [address] [place] [address] Dr. Rebuen Morrison Hemoglobin (Bld) [Mass/Vol] 16.6 g/dL Normal 14.0-18.0 [facility] Comment on above: Performed By: #### C BC #### [facility] [address] [place] [address] Dr. Reuben Morrison IG # 0.01 10e3/ul Normal 0.00-0.03 [facility] Comment on above: Performed By: #### C BC #### [facility] [address] [place] [address] Dr. Reuben Morrison IG % 0.2 % Normal 0.0-0.5 [facility] Comment on above: Performed By: #### C BC #### [facility] [address] [place] [address] Dr. Reuben Morrison LYMPH # 1.1 103/ul Critically low 1.2-3.8 [facility] Comment on above: Performed By: #### C BC #### [facility] [address] [place] [address] Dr. Reuben Morrison Lymphocytes/100 WBC (Bld) 24.3 % Normal 20.5-60.0 [facility] Comment on above: Performed By: #### C BC #### [facility] [address] [place] [address] Dr. Reuben Morrison MANUAL DIFF REQ NO Normal [facility] Comment on above: Performed By: #### C BC #### [facility] [address] [place] [address] Dr. Reuben Morrison MCH (RBC) [Entitic mass] 29.5 pg Normal 25.9-34.0 [facility] Comment on above: Performed By: #### C BC #### [facility] [address] [place] [address] Dr. Reuben Morrison MCHC (RBC) [Mass/Vol] 33.9 g/dL Normal 29.9-35.2 [facility] Comment on above: Performed By: #### C BC #### [facility] [address] [place] [address] Dr. Reuben Morrison MCV (RBC) [Entitic vol] 86.9 fL Normal 80.0-94.0 [facility] Comment on above: Performed By: #### C BC #### [facility] [address] [place] [address] Dr. Reuben Morrison MONO # 0.5 103/ul Normal 0.3-0.8 [facility] Comment on above: Performed By: #### C BC #### [facility] [address] [place] [address] Dr. Reuben Morrison Monocytes/100 WBC (Bld) 9.6 % Normal 1.7-12.0 [facility] Comment on above: Performed By: #### C BC #### [facility] [address] [place] [address] Dr. Reuben Morrison NEUT # 3.0 103/ul Normal 1.4-6.5 [facility] Comment on above: Performed By: #### C BC #### [facility] [address] [address] [address] Reuben Morrison Neutrophils/100 WBC (Bld) 64.2 % Normal 43.0-75.0 [facility] Comment on above: Performed By: #### C BC #### [facility] [address] [address] [address] Reuben Morrison Platelet mean volume (Bld) [Entitic vol] 9.7 fL Normal 9.5-13.5 [facility] Comment on above: Performed By: #### C BC #### [facility] [address] [address] [address] Reuben Morrison PLT 130 103/ul Critically low 150-450 [facility] Comment on above: Result Comment: plts . appear slightly decreased Performed By: #### C BC #### [facility] [address] [place] [address] Dr. Reuben Morrison RBC 5.63 106/ul Normal 4.70-6.10 [facility] Comment on above: Performed By: #### C BC #### [facility] [address] [place] [address] Dr. Reuben Morrison WBC 4.7 103/ul Normal 4.0-11.0 [facility] Comment on above: Performed By: #### C BC #### [facility] [address] [place] [address] Dr. Reuben Morrison TESTOSTERONE, TOTALon 2021 Testosterone [Mass/Vol] 404 ng/dL Normal 264-916 [facility] Comment on above: Result Comment: Adul t male reference interval is based on a population of healthy nonobese males (BMI <30) between 19 and 39 years old. Brad et.al. JCEM 2017,102;1968-9247. PMID: [id number]. Performed By: #### T ESTTOT #### [facility] [address] [place] [address] Dr. Reuben Morrison CBC AUTO DIFFon 04-27-2022 BASO # 0.0 103/ul Normal 0.0-0.1 [facility] Comment on above: Performed By: #### T ESTTOT #### [facility] [address] [place] [address] Dr. Reuben Morrison Basophils/100 WBC (Bld) 1.0 % Normal 0.2-2.0 [facility] Comment on above: Performed By: #### T ESTTOT #### [facility] [address] [place] [address] Dr. Reuben Morrison EO # 0.1 103/ul Normal 0.0-0.7 [facility] Comment on above: Performed By: #### T ESTTOT #### [facility] [address] [place] [address] Dr. Reuben Morrison Eosinophils/100 WBC (Bld) 1.8 % Normal 0.9-7.0 [facility] Comment on above: Performed By: #### T ESTTOT #### [facility] [address] [place] [address] Dr. Reuben Morrison Erythrocyte distribution width (RBC) [Ratio] 14.0 % Normal 11.0-15.0 [facility] Comment on above: Performed By: #### T ESTTOT #### [facility] [address] [place] [address] Dr. Reuben Morrison Hematocrit (Bld) [Volume fraction] 47.3 % Normal 42.0-54.0 [facility] Comment on above: Performed By: #### T ESTTOT #### [facility] [address] [place] [address] Dr. Reuben Morrison Hemoglobin (Bld) [Mass/Vol] 16.2 g/dL Normal 14.0-18.0 [facility] Comment on above: Performed By: #### T ESTTOT #### [facility] [address] [place] [address] Dr. Reuben Morrison IG # 0.01 10e3/ul Normal 0.00-0.03 [facility] Comment on above: Performed By: #### T ESTTOT #### [facility] [address] [place] [address] Dr. Reuben Morrison IG % 0.3 % Normal 0.0-0.5 [facility] Comment on above: Performed By: #### T ESTTOT #### [facility] [address] [address] [address] Reuben Morrison LYMPH # 1.1 103/ul Critically low 1.2-3.8 [facility] Comment on above: Performed By: #### T ESTTOT #### [facility] [address] [address] [address] Reuben Morrison Lymphocytes/100 WBC (Bld) 26.6 % Normal 20.5-60.0 [facility] Comment on above: Performed By: #### T ESTTOT #### [facility] [address] [address] [address] Reuben Morrison MANUAL DIFF REQ NO Normal [facility] Comment on above: Performed By: #### T ESTTOT #### [facility] [address] [place] [address] Dr. Reuben Morrison MCH (RBC) [Entitic mass] 29.5 pg Normal 25.9-34.0 [facility] Comment on above: Performed By: #### T ESTTOT #### [facility] [address] [place] [address] Dr. Reuben Morrison MCHC (RBC) [Mass/Vol] 34.2 g/dL Normal 29.9-35.2 [facility] Comment on above: Performed By: #### T ESTTOT #### [facility] [address] [place] [address] Dr. Reuben Morrison MCV (RBC) [Entitic vol] 86.2 fL Normal 80.0-94.0 [facility] Comment on above: Performed By: #### T ESTTOT #### [facility] [address] [address] [address] Reuben Morrison MONO # 0.4 103/ul Normal 0.3-0.8 [facility] Comment on above: Performed By: #### T ESTTOT #### [facility] [address] [place] [address] Dr. Reuben Morrison Monocytes/100 WBC (Bld) 9.0 % Normal 1.7-12.0 [facility] Comment on above: Performed By: #### T ESTTOT #### [facility] [address] [address] [address] Reuben Morrison NEUT # 2.5 103/ul Normal 1.4-6.5 [facility] Comment on above: Performed By: #### T ESTTOT #### [facility] [address] [address] [address] Reuben Morrison Neutrophils/100 WBC (Bld) 61.3 % Normal 43.0-75.0 [facility] Comment on above: Performed By: #### T ESTTOT #### [facility] [address] [address] [address] Reuben Morrison Platelet mean volume (Bld) [Entitic vol] 9.6 fL Normal 9.5-13.5 [facility] Comment on above: Performed By: #### T ESTTOT #### [facility] [address] [address] [address] Reuben Morrison PLT 128 103/ul Critically low 150-450 [facility] Comment on above: Performed By: #### T ESTTOT #### [facility] [address] [address] [address] Reuben Morrison RBC 5.49 106/ul Normal 4.70-6.10 [facility] Comment on above: Performed By: #### T ESTTOT #### [facility] [address] [address] [address] Reuben Morrison WBC 4.0 103/ul Normal 4.0-11.0 [facility] Comment on above: Performed By: #### T ESTTOT #### [facility] [address] [address] [address] Reuben Morrison INSULINon 03-08-2022 Insulin 4.3 uIU/mL Normal 2.6-24.9 [facility] Comment on above: Performed By: #### T ESTTOT #### [facility] [address] [address] [address] Reuben Morrison TESTOSTERONE, TOTALon 2021 Testosterone [Mass/Vol] ng/dL Critically high 264-916 [facility] Comment on above: Result Comment: Adul t male reference interval is based on a population of healthy nonobese males (BMI <30) between 19 and 39 years old. stephania Salinas.al. JCEM 2017,102;2016-2681. PMID: [id number]. Performed By: #### T ESTTOT #### [facility] [address] [place] [address] Dr. Reuben Morrison CBC AUTO DIFFon 03-07-2022 BASO # 0.1 103/ul Normal 0.0-0.1 [facility] Comment on above: Performed By: #### C BC #### [facility] [address] [place] [address] Dr. Reuben Morrison Basophils/100 WBC (Bld) 1.4 % Normal 0.2-2.0 [facility] Comment on above: Performed By: #### C BC #### [facility] [address] [place] [address] Dr. Reuben Morrison EO # 0.1 103/ul Normal 0.0-0.7 [facility] Comment on above: Performed By: #### C BC #### [facility] [address] [place] [address] Dr. Reuben Morrison Eosinophils/100 WBC (Bld) 1.4 % Normal 0.9-7.0 [facility] Comment on above: Performed By: #### C BC #### [facility] [address] [place] [address] Dr. Reuben Morrison Erythrocyte distribution width (RBC) [Ratio] 14.7 % Normal 11.0-15.0 [facility] Comment on above: Performed By: #### C BC #### [facility] [address] [place] [address] Dr. Reuben Morrison Hematocrit (Bld) [Volume fraction] 49.8 % Normal 42.0-54.0 [facility] Comment on above: Performed By: #### C BC #### [facility] [address] [place] [address] Dr. Reuben Morrison Hemoglobin (Bld) [Mass/Vol] 16.4 g/dL Normal 14.0-18.0 [facility] Comment on above: Performed By: #### C BC #### [facility] [address] [place] [address] Dr. Reuben Morrison IG # 0.01 10e3/ul Normal 0.00-0.03 [facility] Comment on above: Performed By: #### C BC #### [facility] [address] [place] [address] Dr. Reuben Morrison IG % 0.3 % Normal 0.0-0.5 [facility] Comment on above: Performed By: #### C BC #### [facility] [address] [place] [address] Dr. Reuben Morrison LYMPH # 0.9 103/ul Critically low 1.2-3.8 [facility] Comment on above: Performed By: #### C BC #### [facility] [address] [place] [address] Dr. Reuben Morrison Lymphocytes/100 WBC (Bld) 24.7 % Normal 20.5-60.0 [facility] Comment on above: Performed By: #### C BC #### [facility] [address] [place] [address] Dr. Reuben Morrison MANUAL DIFF REQ NO Normal [facility] Comment on above: Performed By: #### C BC #### [facility] [address] [place] [address] Dr. Reuben Morrison MCH (RBC) [Entitic mass] 28.9 pg Normal 25.9-34.0 [facility] Comment on above: Performed By: #### C BC #### [facility] [address] [place] [address] Dr. Reuben Morrison MCHC (RBC) [Mass/Vol] 32.9 g/dL Normal 29.9-35.2 [facility] Comment on above: Performed By: #### C BC #### [facility] [address] [place] [address] Dr. Reuben Morrison MCV (RBC) [Entitic vol] 87.7 fL Normal 80.0-94.0 [facility] Comment on above: Performed By: #### C BC #### [facility] [address] [address] [address] Reuben Morrison MONO # 0.4 103/ul Normal 0.3-0.8 [facility] Comment on above: Performed By: #### C BC #### [facility] [address] [address] [address] Reuben Morrison Monocytes/100 WBC (Bld) 9.5 % Normal 1.7-12.0 [facility] Comment on above: Performed By: #### C BC #### [facility] [address] [place] [address] Dr. Reuben Morrison NEUT # 2.3 103/ul Normal 1.4-6.5 [facility] Comment on above: Performed By: #### C BC #### [facility] [address] [place] [address] Dr. Reuben Morrison Neutrophils/100 WBC (Bld) 62.7 % Normal 43.0-75.0 [facility] Comment on above: Performed By: #### C BC #### [facility] [address] [place] [address] Dr. Reuben Morrison Platelet mean volume (Bld) [Entitic vol] 9.8 fL Normal 9.5-13.5 [facility] Comment on above: Performed By: #### C BC #### [facility] [address] [place] [address] Dr. Reuben Morrison PLT 149 103/ul Critically low 150-450 [facility] Comment on above: Performed By: #### C BC #### [facility] [address] [place] [address] Dr. Reuben Morrison RBC 5.68 106/ul Normal 4.70-6.10 [facility] Comment on above: Performed By: #### C BC #### [facility] [address] [place] [address] Dr. Reuben Morrison WBC 3.7 103/ul Critically low 4.0-11.0 [facility] Comment on above: Performed By: #### C BC #### [facility] [address] [address] [address] Reuben Morrison FREE THYROXINE INDEX T7on FTI 2.50 Normal 1.30-4.50 [facility] Comment on above: Performed By: #### C MP, T7, TSH, LIPID #### [facility] [address] [place] [address] Dr. Reuben Morrison T3U 39.0 % Normal 33.0-40.0 [facility] Comment on above: Performed By: #### C MP, T7, TSH, LIPID #### [facility] [address] [place] [address] Dr. Reuben Morrison T4 [Mass/Vol] 6.40 ug/dL Normal 4.50-12.10 [facility] Comment on above: Performed By: #### C MP, T7, TSH, LIPID #### [facility] [address] [place] [address] Dr. Reuben Morrison GLYCOHEMOGLOBIN A1Con 2021 ADA RECOMMENDATION SEE BELOW Normal [facility] Comment on above: Result Comment: ADA RECOMMENDED LIMIT 4.0 - 6.0 ADA THERAPEUTIC TARGET < 7.0 ACTION SUGGESTED > 7.0 Performed By: #### T ESTTOT #### [facility] [address] [place] [address] Dr. Reuben Morrison Glucose [Mass/Vol] 105 mg/dL Normal [facility] Comment on above: Performed By: #### T ESTTOT #### [facility] [address] [place] [address] Dr. Reuben Morrison HbA1c (Bld) [Mass fraction] 5.3 % Normal 4.5-6.2 [facility] Comment on above: Performed By: #### T ESTTOT #### [facility] [address] [place] [address] Dr. Reuben Morrison IRONon 03-07-2022 Iron [Mass/Vol] 100.0 ug/dL Normal 65.0-175.0 [facility] Comment on above: Performed By: #### I BLAIR, PSASC, VITB12, VITAD #### [facility] [address] [address] [address] Reuben Morrison LIPID PROFILEon 03-07-2022 CHOL-HDL RATIO NORM SEE BELOW Normal [facility] Comment on above: Result Comment: 3.3 - 4.4 LOW RISK 4.4 - 7.1 AVERAGE RISK 7.1 - 11.0 MODERATE RISK >11.0 HIGH RISK Performed By: #### C MP, T7, TSH, LIPID #### [facility] [address] [address] [address] Reuben Morrison Cholesterol [Mass/Vol] 157 mg/dL Normal <=200 [facility] Comment on above: Performed By: #### C MP, T7, TSH, LIPID #### [facility] [address] [address] [address] Reuben Morrison Cholesterol in HDL [Mass/Vol] 48 mg/dL Normal 40-60 [facility] Comment on above: Performed By: #### C MP, T7, TSH, LIPID #### [facility] [address] [address] [address] Reuben Morrison Cholesterol in LDL [Mass/Vol] 96.0 mg/dL Normal [facility] Comment on above: Performed By: #### C MP, T7, TSH, LIPID #### [facility] [address] [address] [address] Reuben Morrison Cholesterol.total/C holesterol in HDL [Mass ratio] 3.3 {ratio} Normal [facility] Comment on above: Performed By: #### C MP, T7, TSH, LIPID #### [facility] [address] [address] [address] Reuben Morrison HDL NORMAL > or = 60 mg/dl - LO W CARDIOVASCULAR RISK <40 mg/dl - HIGH CARDIOVASCULAR RISK Normal [facility] Comment on above: Performed By: #### C MP, T7, TSH, LIPID #### [facility] [address] [address] [address] Reuben Morrison LDL CALC NORMAL SEE BELOW Normal [facility] Comment on above: Result Comment: <100 mg/dl OPTIMAL 100 - 129 mg/dl NEAR OR ABOVE OPTIMAL 130 - 159 mg/dl BORDERLINE HIGH 160 - 189 mg/dl HIGH >190 mg/dl VERY HIGH Performed By: #### C MP, T7, TSH, LIPID #### [facility] [address] [place] [address] Dr. Reuben Morrison Triglyceride [Mass/Vol] 65 mg/dL Normal <=150 [facility] Comment on above: Performed By: #### C MP, T7, TSH, LIPID #### [facility] [address] [address] [address] Reuben Morrison VLDL CALC 13.0 mg/dL Normal [facility] Comment on above: Performed By: #### C MP, T7, TSH, LIPID #### [facility] [address] [place] [address] Dr. Reuben Morrison PROF 14(COMP METB)on 022 Albumin [Mass/Vol] 3.7 g/dL Normal 3.4-5.0 [facility] Comment on above: Performed By: #### C MP, T7, TSH, LIPID #### [facility] [address] [place] [address] Dr. Reuben Morrison Albumin/Globulin [Mass ratio] 1.3 {ratio} Normal [facility] Comment on above: Performed By: #### C MP, T7, TSH, LIPID #### [facility] [address] [place] [address] Dr. Reuben Morrison ALP [Catalytic activity/Vol] 53 U/L Normal 46-116 [facility] Comment on above: Performed By: #### C MP, T7, TSH, LIPID #### [facility] [address] [place] [address] Dr. Reuben Morrison ALT [Catalytic activity/Vol] 37 U/L Normal 16-63 [facility] Comment on above: Performed By: #### C MP, T7, TSH, LIPID #### [facility] [address] [place] [address] Dr. Reuben Morrison Anion gap [Moles/Vol] 11.0 mmol/L Normal [facility] Comment on above: Performed By: #### C MP, T7, TSH, LIPID #### [facility] [address] [address] [address] Reuben Morrison AST [Catalytic activity/Vol] 28 U/L Normal 15-37 [facility] Comment on above: Performed By: #### C MP, T7, TSH, LIPID #### [facility] [address] [address] [address] Reuben Morrison Bilirubin [Mass/Vol] 0.9 mg/dL Normal 0.2-1.0 [facility] Comment on above: Performed By: #### C MP, T7, TSH, LIPID #### [facility] [address] [place] [address] Dr. Reuben Morrison Calcium [Mass/Vol] 8.9 mg/dL Normal 8.5-10.1 [facility] Comment on above: Performed By: #### C MP, T7, TSH, LIPID #### [facility] [address] [address] [address] Reuben Morrison Chloride [Moles/Vol] 106 mmol/L Normal 98-107 [facility] Comment on above: Performed By: #### C MP, T7, TSH, LIPID #### [facility] [address] [place] [address] [address] Reuben Morrison CO2 [Moles/Vol] 28.2 mmol/L Normal 21.0-32.0 [facility] Comment on above: Performed By: #### C MP, T7, TSH, LIPID #### [facility] [address] [place] [address] [address] Reuben Morrison Creatinine [Mass/Vol] 1.55 mg/dL Critically high 0.70-1.30 [facility] Comment on above: Performed By: #### C MP, T7, TSH, LIPID #### [facility] [address] [place] [address] [address] Reuben Morrison EGFR-AF CONGOLESE 55 mL/min/1.73m2 Critically low >=60 [facility] Comment on above: Performed By: #### C MP, T7, TSH, LIPID #### [facility] [address] [place] [address] [address] Reuben Morrison EGFR-NON AF CONGOLESE 46 mL/min/1.73m2 Critically low >=60 [facility] Comment on above: Performed By: #### C MP, T7, TSH, LIPID #### [facility] [address] [place] [address] [address] Reuben Morrison Globulin (S) [Mass/Vol] 2.9 g/dL Normal [facility] Comment on above: Performed By: #### C MP, T7, TSH, LIPID #### [facility] [address] [place] [address] [address] Reuben Morrison Glucose [Mass/Vol] 88 mg/dL Normal 74-106 [facility] Comment on above: Performed By: #### C MP, T7, TSH, LIPID #### [facility] [address] [place] [address] [address] Reuben Morrison Potassium [Moles/Vol] 4.2 mmol/L Normal 3.5-5.1 [facility] Comment on above: Performed By: #### C MP, T7, TSH, LIPID #### [facility] [address] [place] [address] Dr. Reuben Morrison Protein [Mass/Vol] 6.6 g/dL Normal 6.4-8.2 [facility] Comment on above: Performed By: #### C MP, T7, TSH, LIPID #### [facility] [address] [place] [address] Dr. Reuben Morrison Sodium [Moles/Vol] 141 mmol/L Normal 136-145 [facility] Comment on above: Performed By: #### C MP, T7, TSH, LIPID #### [facility] [address] [place] [address] [address] Reuben Morrison Urea nitrogen [Mass/Vol] 13.0 mg/dL Normal 7.0-18.0 [facility] Comment on above: Performed By: #### C MP, T7, TSH, LIPID #### [facility] [address] [place] [address] [address] Reuben Morrison Urea nitrogen/Creatinine [Mass ratio] 8.4 mg/mg Normal [facility] Comment on above: Performed By: #### C MP, T7, TSH, LIPID #### [facility] [address] [place] [address] [address] Reuben Morrison TSHon 03-07-2022 TSH 0.091 uIU/mL Critically low 0.358-3.740 [facility] Comment on above: Performed By: #### C MP, T7, TSH, LIPID #### [facility] [address] [place] [address] [address] Reuben Morrison TSH RANGE SEE BELOW Normal [facility] Comment on above: Result Comment: <0.3 4 UIU/ml HYPERTHYROID 0.34-5.60 UIU/ml EUTHYROID >5.60 UIU/ml HYPOTHYROID Performed By: #### C MP, T7, TSH, LIPID #### [facility] [address] [place] [address] Dr. Reuben Morrison VITAMIN B12on 03-07-2022 Cobalamin (Vitamin B12) [Mass/Vol] 3126.0 pg/mL Critically high 193.0-986.0 [facility] Comment on above: Performed By: #### T ESTTOT #### [facility] [address] [place] [address] Dr. Reuben Morrison VITAMIN D 25 OHon 03-07-2022 VIT D 25-OH 90.4 ng/mL Normal [facility] Comment on above: Performed By: #### T ESTTOT #### [facility] [address] [place] [address] Dr. Reuben Morrison VIT D RANGES SEE BELOW Normal [facility] Comment on above: Result Comment: <20 ng/mL Vit D deficient 20 - <30 ng/mL Vit D insufficient 30 - 100 ng/mL Vit D sufficient >100 ng/mL Potential Toxicity Performed By: #### T ESTTOT #### [facility] [address] [place] [address] Dr. Reuben Morrison XR SHOULDER RICHARD 2V [...] HANSEN Date: 2022-03-07 16:26 Normal [facility] Vital Signs Date Time Vital Sign Value Performing Clinician Facility 05-07-2024 15:01-0400 Blood Pressure Location Shawanda MEJIA [facility] 05-07-2024 15:01-0400 Diastolic blood pressure 84 mm[Hg] Shawanda MEJIA [facility] 05-07-2024 15:01-0400 Heart rate 68 /min Shawanda MEJIA [facility] 05-07-2024 15:01-0400 Respiratory rate 16 /min Shawanda ROBERTO [facility] 05-07-2024 15:01-0400 Systolic blood pressure 118 mm[Hg] Shawanda MEJIA [facility] 11-02-2023 10:48-0500 Body height 170.2 cm Osmin Anthony MD Work Phone: [facility] 11-02-2023 10:48-0500 Body mass index (BMI) [Ratio] 29.29 kg/m2 Osmin Anthony MD Work Phone: [facility] 11-02-2023 10:48-0500 Body weight 84.82 kg Osmin Anthony MD Work Phone: [facility] 10-16-2023 13:03-0500 Blood Pressure Location Vianey SILVERMAN [facility] 10-16-2023 13:03-0500 Diastolic blood pressure 82 mm[Hg] Vianey SILVERMAN [facility] 10-16-2023 13:03-0500 Heart rate 75 /min Vianey SILVERMAN [facility] 10-16-2023 13:03-0500 Respiratory rate 16 /min Vianey SILVERMAN [facility] 10-16-2023 13:03-0500 Systolic blood pressure 131 mm[Hg] Vianey SILVERMAN [facility] 07-27-2023 10:00-0400 Body height 168.91 cm Sandoval Antonia Other [employer] Other 07-27-2023 10:00-0400 Body mass index (BMI) [Ratio] 28.55 kg/m2 Sandoval Antonia Other [employer] Other 07-27-2023 10:00-0400 Body temperature 96.2 [degF] Sandoval Antonia Other [employer] Other 07-27-2023 10:00-0400 Body weight 81.47 kg Sandoval Antonia Other [employer] Other 07-27-2023 10:00-0400 Diastolic blood pressure 87 mm[Hg] Sandoval Antonia Other [employer] Other 07-27-2023 10:00-0400 Respiratory rate 16 /min Sandoval Antonia Other [employer] Other 07-27-2023 10:00-0400 SaO2% (BldA) [Mass fraction] 94 % Sandoval Antonia Other [facility] [employer] Other 07-27-2023 10:00-0400 Systolic blood pressure 130 mm[Hg] Sandoval Antonia Other [facility] [employer] Other 06-12-2023 12:25-0400 Blood Pressure Location Vianey SILVERMAN [facility] 06-12-2023 12:25-0400 Diastolic blood pressure 74 mm[Hg] Vianey SILVERMAN [facility] 06-12-2023 12:25-0400 Heart rate 68 /min Vianey SILVERMAN [facility] 06-12-2023 12:25-0400 Respiratory rate 16 /min Vianey SILVERMAN [facility] 06-12-2023 12:25-0400 Systolic blood pressure 128 mm[Hg] Vianey SILVERMAN [facility] 04-26-2023 11:15-0400 Body height 168.4 cm Shawanda Hernandez PA-C Work Phone: [facility] 04-26-2023 11:15-0400 Body temperature 98.01 [degF] Shawanda Hernandez PA-C Work Phone: [facility] 04-26-2023 11:15-0400 Body weight 86.95 kg Shawanda Hernandez PA-C Work Phone: [facility] 04-26-2023 11:15-0400 Diastolic blood pressure 94 mm[Hg] Shawanda Hernandez PA-C Work Phone: [facility] 04-26-2023 11:15-0400 Heart rate 74 /min Shawanda Hernandez PA-C Work Phone: [facility] 04-26-2023 11:15-0400 SaO2% (BldA) [Mass fraction] 97 % Shawanda Hernandez PA-C Work Phone: [facility] 04-26-2023 11:15-0400 Systolic blood pressure 147 mm[Hg] Shawanda Hernandez PA-C Work Phone: [facility] 12-02-2022 08:12-0500 Blood Pressure Location Vianey SILVERMAN [facility] 12-02-2022 08:12-0500 Diastolic blood pressure 84 mm[Hg] Vianey SILVERMAN [facility] 12-02-2022 08:12-0500 Heart rate 70 /min Vianey SILVERMAN [facility] 12-02-2022 08:12-0500 Respiratory rate 16 /min Vianeyzayra SILVERMAN [facility] 12-02-2022 08:12-0500 Systolic blood pressure 137 mm[Hg] Vianeyzayra SILVERMAN [facility] 07-20-2022 14:11-0400 Body mass index (BMI) [Ratio] 28.98 kg/m2 Jovita Virk MD Work Phone: [facility] 07-20-2022 14:11-0400 Body temperature 98.01 [degF] Jovita Virk MD Work Phone: [facility] 07-20-2022 14:11-0400 Body weight 83.92 kg Jovita Virk MD Work Phone: [facility] 07-20-2022 14:11-0400 Diastolic blood pressure 86 mm[Hg] Jovita Virk MD Work Phone: [facility] [place] 07-20-2022 14:11-0400 Heart rate 98 /min Jovita Virk MD Work Phone: [employer] 07-20-2022 14:11-0400 Respiratory rate 14 /min Jovita Virk MD Work Phone: [employer] 07-20-2022 14:11-0400 SaO2% (BldA) [Mass fraction] 100 % Jovita Virk MD Work Phone: [employer] 07-20-2022 14:11-0400 Systolic blood pressure 138 mm[Hg] Jovita Virk MD Work Phone: [employer] Encounters Encounter Date Encounter Type Care Provider Facility Start: 10-21-2024 ambulatory Vianey Velazquez ty:[facility] Start: 05-07-2024 End: 05-07-2024 ambulatory Shawanda MEJIA Facility: [facility] Start: 05-07-2024 End: 05-07-2024 Patient encounter procedure Shawanda MEJIA [facility] Start: 05-06-2024 ambulatory Taylor Tres Facility:[facility] Start: 04-05-2024 End: 04-05-2024 ambulatory MD Ilda Peck Work Phone: [facility] Work Phone: Start: 04-05-2024 End: 04-05-2024 Departed Referred MD Ilda Peck Work Phone: [facility] Start: 02-07-2024 End: 02-07-2024 ambulatory EHAB NATALIIA [facility] Start: 12-26-2023 End: 12-26-2023 ambulatory JEOVANNY SCOTT [facility] Start: 11-27-2023 ambulatory Vianey Velazquez ty:[facility] Start: 11-17-2023 Evaluation and management of inpatient GISSELL CHRISTIANSON [facility] Start: 11-17-2023 Evaluation and management of inpatient [facility] Start: 11-16-2023 Evaluation and management of inpatient [facility] Start: 11-16-2023 ambulatory [facility] Start: 11-16-2023 ambulatory [facility] Start: 11-16-2023 End: 11-17-2023 Evaluation and management of inpatient [facility] Start: 11-02-2023 End: 11-02-2023 ambulatory OSMIN ANTHONY [facility] Start: 11-02-2023 End: 11-02-2023 Patient encounter procedure Osmin Anthony MD Work Phone: [facility] Comment on above: Primary osteoarthrit is of right knee (Primary Dx) Start: 10-30-2023 End: 10-30-2023 ambulatory DEMETRA [facility] Start: 10-16-2023 End: 10-16-2023 ambulatory Vianey SILVERMAN Facility:[facility] Start: 10-16-2023 End: 10-16-2023 Patient encounter procedure Vianey SILVERMAN [facility] Start: 09-08-2023 End: 09-08-2023 ambulatory [facility] Start: 08-10-2023 End: 08-10-2023 ambulatory [facility] Start: 07-27-2023 End: 07-27-2023 ambulatory Sandoval Knight Other [employer] Other Start: 07-27-2023 Office outpatient ne w 45 minutes Sandoval Atnonia [facility] Start: 07-11-2023 ambulatory [facility] Start: 07-11-2023 End: 07-11-2023 ambulatory [facility] Start: 07-10-2023 ambulatory Vianey SILVERMAN Facili ty[facility] Start: 06-28-2023 End: 06-28-2023 ambulatory EHAB [facility] Start: 06-12-2023 End: 06-12-2023 ambulatory Vianey SILVERMAN Facility:[facility] Start: 06-12-2023 End: 06-12-2023 Patient encounter procedure Vianey SILVERMAN [facility] Start: 05-30-2023 ambulatory Taylor Joshua Facility:[facility] Start: 05-03-2023 End: 05-03-2023 Patient encounter procedure Taylor Joshua [facility] Start: 04-26-2023 End: 04-26-2023 ambulatory ILDA PECK Facility:[facility] Start: 04-26-2023 End: 04-26-2023 Patient encounter procedure Shawanda Hernandez PA-C Work Phone: [facility] Comment on above: Height loss (Primary Dx) Start: 03-08-2023 End: 03-08-2023 Patient encounter procedure KYLE RODRIGUEZ [facility] Start: 01-20-2023 End: 01-21-[address] ILDA PECK . Facility:[facility] Start: 12-02-2022 End: 12-02-2022 Patient encounter procedure Vianey SILVERMAN [facility] Start: 11-18-2022 End: 11-19-[address] ILDA PECK . Facility:[facility] Start: 11-08-2022 End: 11-09-2022 ambulatory TAYLOR JOSHUA . Facility:[facility] Start: 11-01-2022 End: 11-01-2022 Patient encounter procedure KYLE RODRIGUEZ [facility] Start: 10-05-2022 End: 10-05-2022 Patient encounter procedure KYLE RODRIGUEZ [facility] Start: 09-07-2022 End: 09-07-2022 Patient encounter procedure Taylor Joshua [facility] Start: 08-28-2022 Letter encounter Jovita Virk MD Work Phone: [facility] [place] Start: 08-17-2022 End: 08-17-2022 Patient encounter procedure Taylor Joshua [facility] Start: 08-12-2022 Telephone encounter Aarti vences MA, [facility] [employer] Work Phone: [facility] Start: 07-21-2022 End: 07-22-[address] ILDA PECK . 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 Comment on above: Refill Start: 03-21-[address] ILDA PECK . Facili ty:[facility] Start: 03-17-[address] ILDA PECK . Facili ty:[facility] Start: 03-09-2022 Encounter for genera l adult medical examination without abnormal findings DR ILDA PECK . [facility] Start: 03-07-2022 End: 03-08-2022 Encounter for general adult medical examination without abnormal findings DR ILDA PECK . Facility:[facility] Start: 03-07-2022 End: 03-08-[address] ILDA PECK . Facility:[facility] Start: 03-01-2022 End: 03-01-2022 Patient encounter procedure Saeed Cantu Jr. [facility] Start: 02-01-2022 End: 02-01-2022 Patient encounter procedure Saeed Cantu Jr. [facility] Start: 01-04-2022 End: 01-04-2022 Patient encounter procedure Saeed Cantu Jr. [facility] Procedures Date Procedure Procedure Detail Performing Clinician Start: 11-02-2023 Follow-up visit Follow-up UNIQUE ANTHONY Start: 11-02-2023 Arthrocentesis aspir &/inj major jt/bursa w/o us Osmin Anthony MD Work Phone: Start: 09-08-2023 Follow-up visit Follow-up JEOVANNY SANTOYO Start: 06-15-[address] FABIÁN PECK . Comment on above: Performed By: #### T ESTTOT #### [facility] [address] [place] [address] Dr. Reuben Morrison Start: 03-07-[address] FABIÁN PECK . Comment on above: Performed By: #### I BLAIR, PSASC, VITB12, VITAD #### [facility] [address] [place] [address] [address] Reuben Morrison Start: 12-21-2016 Cystourethroscopy wi th dilation of urethral stricture Saeed Cantu Jr. Start: 08-25-2009 Colonoscopy Shawanda GREER Arthroplasty of knee Saeed Cantu Jr. Comment on above: Left side Arthroscopy of shoulder Jesus MEJIA Cardioversion Shawanda MEJIA Cervical arthrodesis Shawanda MEJIA Hernia repair Saeed vasquez Repair of left ingui nal hernia Shawanda MEJIA Repair of musculoten dinous cuff of shoulder Saeed Cantu Jr. Transesophageal echocardiography Shawanda MEJIA Plan of Treatment Date Care Activity Detail Author Start: 09-04-2031 DTaP,Tdap and Td Vaccines (2 - Tdap) DTaP,Tdap and Td Vaccines (2 - Tdap) [facility] Start: 09-04-2031 Urine microalbumin profile DTAP,TDAP,TD (2 - Tdap) [facility] Start: 06-15-2027 PROSTATE CANCER SCREENING DISCUSSION PROSTATE CANCER SCREENING DISCUSSION [facility] Start: 11-02-2024 Adult BMI Screening Adult BMI Screening [facility] Start: 11-02-2024 Tobacco Screening Tobacco Screening [facility] Start: 05-26-2023 COVID-19 Vaccine ( season) COVID-19 Vaccine ( season) [facility] Start: 05-26-2023 Influenza vaccination INFLUENZA (#1) [facility] Start: 09-25-2022 DEPRESSION ASSESSMENT DEPRESSION ASSESSMENT [facility] Start: 09-20-2022 COVID-19 Vaccine (5 - Booster for Pfizer series) COVID-19 Vaccine (5 - Booster for Pfizer series) [facility] Start: 09-20-2022 COVID-19 VACCINE (5 - Pfizer series) COVID-19 VACCINE (5 - Pfizer series) [facility] Start: 07-19-2022 End: 07-19-2022 Patient encounter procedure 07/19/2022 Office Visit Physical Medicine & Rehab/PM&R Jovita Virk MD [address] [place] [id number] [facility] [place] [facility] Start: 06-25-2022 Influenza vaccination Influenza Vaccine (#1) [facility] Start: 05-31-2022 Shingles (RZV) Vaccine (2 of 2) Shingles (RZV) Vaccine (2 of 2) [facility] Start: 01-19-2022 COVID-19 Vaccine (4 - Booster for Pfizer series) COVID-19 Vaccine (4 - Booster for Pfizer series) [facility] Start: 11-15-2021 COVID-19 Vaccine (4 - Booster for Pfizer series) COVID-19 Vaccine (4 - Booster for Pfizer series) [facility] Start: 09-05-2021 Lipid panel Cholesterol [facility] Start: 12-04-2020 DIABETES SCREEN DIABETES SCREEN [facility] Start: 11-23-2014 Annual wellness visit Annual Wellness Visit (G0438) [facility] Start: 06-10-2012 Thyroid stimulating hormone measurement TSH [facility] Start: 2009 Measurement of occult blood in single stool specimen FIT [facility] Start: 2009 Screening for malignant neoplasm of colon CRC Screening [facility] Start: 2009 Shingles (RZV) Vaccine (1 of 2) Shingles (RZV) Vaccine (1 of 2) [facility] Start: 02-22-2004 COLOGUARD (FIT-DNA) COLOGUARD (FIT-DNA) [facility] Start: 02-22-2004 Colonoscopy COLONOSCOPY [facility] Start: 02-22-2004 COLORECTAL CANCER SCREENING COLORECTAL CANCER SCREENING [facility] Start: 02-22-[address] COLONOGRAPHY [facility] Start: 02-22-2004 FECAL OCCULT BLOOD FECAL OCCULT BLOOD [facility] Start: 02-22-2004 SIGMOIDOSCOPY SIGMOIDOSCOPY [facility] Start: 1994 LIPID SCREEN LIPID SCREEN [facility] Start: 1977 Adult BMI Follow Up Plan Adult BMI Follow Up Plan [facility] Start: 1977 ANNUAL PCP TEAM CHRONIC DISEASE VISIT ANNUAL PCP TEAM CHRONIC DISEASE VISIT [facility] Start: 1977 Hepatitis C screening Hepatitis C Antibody [facility] Start: 1977 HEPATITIS C SCREENING HEPATITIS C SCREENING [facility] Start: 1977 HIV SCREENING HIV SCREENING [facility] Start: 1977 SPIROMETRY SPIROMETRY [facility] Start: 1977 Tetanus + diphtheria + acellular pertussis vaccine (product) Tdap Booster [facility] Start: 1974 HIV screening HIV Test [facility] Start: 1971 Depression Screening Depression Screening [facility] Start: 1965 PNEUMOCOCCAL (1 - PCV) PNEUMOCOCCAL (1 - PCV) [facility] Start: 1959 Screening for malignant neoplasm of colon Colonoscopy [facility] Immunizations Immunization Date Immunization Notes Care Provider [facility] 08-10-2023 influenza virus vaccine, unspecified formulation Shawanda MEJIA [facility] 08-29-2022 zoster vaccine recombinant Shawanda Hernandez PA-C Work Phone: [facility] 07-26-2022 SARS-CoV-2 (COVID-19 ) mRNA-1273 vaccine Shawanda MEJIA [facility] 07-25-2022 Influenza, injectabl e, [place] Canine Kidney, preservative free, quadrivalent Jovita Virk MD Work Phone: [facility] 04-05-2022 zoster vaccine recombinant Jovita Virk MD Work Phone: [facility] 09-20-2021 SARS-CoV-2 (COVID-19 ) mRNA BNT-162b2 vax Shawanda MEJIA [facility] [place] 09-04-2021 diphtheria, tetanus toxoids and pertussis vaccine Jovita Virk MD Work Phone: [facility] 08-25-2021 SARS-CoV-2 (COVID-19 ) Ad26 vaccine, recombinant Saeed Cantu Jr. [facility] 08-10-2021 influenza, injectabl e, quadrivalent, preservative free Jovita Virk MD Work Phone: [facility] 08-10-2021 influenza virus vaccine, unspecified formulation Jovita Virk MD Work Phone: [facility] 06-25-2021 influenza virus vaccine, unspecified formulation Saeed Cantu Jr. [facility] 12-22-2020 Pfizer (12+ yrs) SARS-COV-2 (COVID-19) vaccine, mRNA, spike protein, LNP, pres. free, 30 mcg/0.3mL dose (OHX=316) Jovita Virk MD Work Phone: [facility] 11-30-2020 Pfizer (12+ yrs) SARS-COV-2 (COVID-19) vaccine, mRNA, spike protein, LNP, pres. free, 30 mcg/0.3mL dose (BIX=660) Jovita Virk MD Work Phone: [facility] 08-25-2020 influenza virus vaccine, unspecified formulation Saeed Cantu Jr. [facility] 06-30-2020 influenza, injectabl e, quadrivalent, preservative free Jovita Virk MD Work Phone: [facility] 12-25-2019 SARS-CoV-2 (COVID-19 ) mRNA BNT-162b2 beau Cantu [facility] 11-24-2019 SARS-CoV-2 (COVID-19 ) mRNA BNT-162b2 beau Cantu [facility] Payers Date Payer Category Payer Self-pay 2023 Unknown [id number] 2022 Unknown [id number] 2017 Unknown [id number] 2017 Unknown [id number] 2013 Medicare [id number] 1959 Medicare [id number] 1959 Self-pay [id number] 1959 Unknown [id number] 1959 Unknown [id number] 1959 Unknown [id number] 1959 Unknown [id number] [id number] 1960 Unknown [id number] 2.16.840.1.288871.3.579.2.5 1960 Unknown [id number] 2.16.840.1.251000.3.579.2.5 1959 Unknown [id number] 2.16.840.1.825672.3.579.2.5 9 Unknown [id number] 2.16.840.1.828380.3.579.2.5 93 1959 Unknown [id number] 2.16.840.1.758012.3.579.2.5 93 1959 Unknown [id number] 2.16.840.1.518046.3.579.2.5 93 1959 Unknown [id number] 2.16.840.1.482247.3.579.2.5 93 1959 Unknown [id number] 2.16.840.1.074974.3.579.2.1 286 1959 Unknown [id number] 2.16.840.1.063434.3.579.2.7 27 1959 Unknown [id number] 2.16.840.1.187170.3.579.2.7 27 1959 Unknown [id number] 2.16.840.1.284329.3.579.2.7 1959 Unknown [id number] 2.16.840.1.694592.3.579.2.7 1959 Unknown [id number] 2.16.840.1.847401.3.579.2.7 1959 Unknown [id number] 2.16.840.1.766810.3.579.2.7 1959 Unknown [id number] 2.16.840.1.383982.3.579.2.7 27 Private Health Insurance [facility] [id number] Unknown [id number] 2.16.840.1.109031.3.579.2.5 93 Unknown MMO [employer] [id number] Unknown [id number] 2.16.840.1.443776.3.579.2.5 31 Social History Date Type Detail Facility Start: 10-05-2021 End: 05-07-2024 Tobacco smoking status Never smoked tobacco (finding) [facility] Tobacco smoking status Never [facility] Start: 11-05-2020 End: 04-26-2023 Sex Assigned At Male [facility] Start: 08-24-2011 End: 04-26-2023 Tobacco use and exposure Smokeless tobacco non-user [facility] Start: 12-07-2017 End: 08-12-2022 Alcohol intake Not Asked [facility] Start: 1960 Sex Assigned At Not on file [facility] Start: 08-12-2022 History SDOH Social Connections Phone 1 [facility] Start: 08-12-2022 History SDOH Social Connections Get Together 2 [facility] Start: 08-12-2022 History SDOH Social Connections [facility] 98 [facility] Start: 08-12-2022 Education [facility] Start: 04-26-2023 End: 11-02-2023 Alcohol intake Current drinker of alcohol (finding) [facility] Start: 11-05-2020 End: 04-26-2023 History of Social function [facility] Start: 12-04-2017 Alcohol Comment social [facility] Start: 1960 Sex Assigned At Male P [facility] Start: 08-23-2021 Gender identity Identifies as male gender (finding) [facility] Medical Equipment Procedure Code Equipment Code Equipment Origin al Text Equipment Identifier Dates Brng Tib [id number] mm 0d Kn Ant - [id number] Start: 09-05-2016 Cement Bn Palaco s Radpq 40g Rpl [id number] - [id number] Start: 09-05-2016 Cmpt Ptlr Thn 34 mm 3 Pg Kn Ser - [id number] Start: 09-05-2016 Goals Date Patient Goal Desired Activity /State Personal health goal Comment on above: Formatting of this n ote might be different from the original. Evaluation of progress towards goal: Maximize work with PT at discharge to strengthen L knee Functional Status Date Assessment Result Facility 05-07-2024 Functional Status N/A [facility] [place] 10-16-2023 Functional Status N/A [facility] 06-12-2023 Functional Status N/A [facility] 12-02-2022 Functional Status N/A [facility] Clinical Notes 04-07-2022 to 05-07-2024 Osmin Anthony MD - 11/02/2023 10:50 AM EST Note Date & Type Note Facility 05-07-2024 Note General Surgery Offi ce/Clinic Note Chief Complaint consultation for colonoscopy HPI Staff 64 year old male presents on consultation from Dr. Peck for screening colonoscopy. Denies abdominal or rectal pain. No rectal bleeding or change in bowel habits. Denies nausea or vomiting. No unexplained weight loss. Last colonoscopy completed 08/2009- rectal inflammation, otherwise normal. No known family history of colon cancer. History of Present Illness 64 yo male with h/o atrial fibrillation, on Eliquis, htn, hypothyroidism, bph, ADD, referred for colorectal screening; denies change in bms or blood in stools, no abd complaints; abdominal operations significant for LIHR, last colonoscopy 2008, wnl; on Eliquis daily, no asa or NSAID use; no tobacco use; no fmhx of GI malignancy or IBD. Review of Systems PHQ Score Initial Depression Screen Score: 0 SCORE ROS - Provider Constitutional: no fever, no sweats, no weight loss. Eyes: no glasses, no blurred vision, no visual loss. ENMT: no dentures, no hoarseness, no swallowing difficulties, no hearing loss, no ear infection(s), no nose bleeds. Cardiovascular: normal blood pressure, no chest pain, regular heartbeat, no heart murmur. Respiratory: no shortness of breath, no cough, no asthma, no wheezing. Gastrointestinal: no nausea, no vomiting, no diarrhea, no constipation, no blood in stool, no change in bowel habits, no abdominal pain, no hepatitis. Genitourinary: no kidney stones, no urine infection, no dysuria. Musculoskeletal: no pain, no weakness. Skin: no changing moles, no rash, no skin lumps. Neurologic: no seizures, no epilepsy, no headache. Psychiatric: no emotional or psychiatric problem. Heme/Lymph: no bleeding problems, no anemia, no blood clots, no transfusions. Allergy/Immunologic: no swollen lymph nodes/glands, no IV drug abuse. Other: Additional ROS info: Except as noted in the above Review of Systems and in the History of Present Illness, all other systems have been reviewed and are negative or noncontributory. Physical Exam Vitals & Measurements HR: 68(Peripheral) RR: 16 BP: 118/84 HT: 67 in HT: 170 cm WT: 83 kg WT: 182.6 lb BMI: 28.72 HEENT: normal conjunctiva, sclera clear, no scleral icterus, EOM intact, PERRLA, oral mucosa moist without lesions. Neck: trachea midline, no mass, symmetric, no thyromegaly or nodules, no adenopathy Respiratory: lungs CTA, respirations non labored. Cardiovascular: regular rate and rhythm, no murmur, no pedal edema or varicosities. Gastrointestinal: soft, non distended, no tenderness, no masses, no palpable hernias, diastasis recti no, no hepatosplenomegaly; normal bs Lymphatic: no cervical adenopathy, no supraclavicular adenopathy. Musculoskeletal: normal gait, digits and nails without infection, nodes, cyanosis, clubbing. Skin: no rashes, no lesions, no ulcers, no subcutaneous nodules, induration. Psychiatric/Neuro: oriented to time, place, person, judgement normal, affect appropriate for age, insight intact, no focal deficits. Tests: review of old records completed , Discussed surgical options, risks, and possible complications with patient. Assessment/Plan 1. Screening for malignant neoplasm of colon (Z12.11: Encounter for screening for malignant neoplasm of colon) plan colonoscopy under anesthesia, informed consent obtained. hold Eliquis 2 days prior to procedure. 2. Chronic anticoagulation (Z79.01: rn long term care (current) use of 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s) see # 1 Follow-up No qualifying data available Problem List/Past Medical History Ongoing Acute combined systolic (congestive) and diastolic (congestive) heart failure ADD (attention deficit disorder) Atrial fibrillation BMI 28.0-28.9,adult BPH with urinary obstruction Chronic anticoagulation CVD (cerebrovascular disease) Eczema ED (erectile dysfunction) H/O head injury HTN (hypertension) Hypogonadism male Hypothyroidism Lumbar radiculopathy Male impotence Neutropenia Nocturia Overweight Protein in urine Screening for malignant neoplasm of colon Sleep apnea Spinal stenosis Thrombocytopenia Urge incontinence Vitamin B12 deficiency Weak urine stream Historical No qualifying data Procedure/Surgical History Cystourethroscopy with dilation of urethral stricture (12/21/2016), Colonoscopy (08/2009), Arthroscopy of shoulder, Cardioversion, Cervical spinal fusion, Knee arthroplasty, Repair of left inguinal hernia, Rotator cuff repair, JAMIN procedure. Medications Eliquis 5 mg oral tablet, 5 mg= 1 tab(s), Oral, BID hydrALAZINE 25 mg Tab, 25 mg= 1 tab(s), Oral, TID levothyroxine 150 mcg (0.15 mg) Tab, 150 mcg= 1 tab(s), Oral, Daily liothyronine 25 mcg Tab, 25 mcg= 1 tab(s), Oral, Daily tamsulosin 0.4 mg Cap, 0.4 mg= 1 cap(s), Oral, Daily, 3 refills Vitamin D, Oral, qWeek Allergies Cipro (Patient reported problems) Social History Alcohol Current, Liquor, 1-2 times per week, 05/07/2019 Substance Abuse - Denies Substa (more content not included)... [facility] Comment on above: Result Comment: Elec tronically Signed By: ROBERTO PRIETO, Shawanda Taylor.kusum\Date and Time Signed: 05/07/24 15:50 EDT 02-07-2024 Note [facility] Cardiology Clinic Note Chief Complaint: Patient here for follow up echo and labs 2 weeks ago. He has stopped amiodarone due to blood work. Denies chest pain, palpitations, bleeding on Eliquis, and LE edema. HPI: ODILON Lacey is a 63 y.o. male 12/26/23 patient underwent atrial fibrillation ablation on 11/16/2023. his amiodarone was stopped post ablation and subsequently he had an episode of what appeared to be atrial flutter. at this time he was started on amiodarone for maintenance of sinus rhythm in the blanking period. He is doing well and has bradycardia Cardiology ROS: Review of Systems Constitutional: Positive for malaise/fatigue. Cardiovascular: Positive for dyspnea on exertion. All other systems reviewed and are negative. Past Medical History He has a past medical history of Abnormal ECG, Arrhythmia, Atrial fibrillation (CMS/HCC), Heart valve disease, Hypothyroidism, and Sleep apnea. Surgical History He has a past surgical [...] route for 30 days., Disp: , Rfl: amiodarone (Pacerone) 200 mg tablet, Take 2 tablets (400 mg) by mouth in the morning and at bedtime for 14 days, THEN 1 tablet (200 mg) once daily as directed., Disp: 146 tablet, Rfl: 0 aspirin 81 mg chewable tablet, Chew 1 tablet (81 mg) in the morning for 98 doses. Do not start before November 18, 2023., Disp: 30 tablet, Rfl: 3 Eliquis 5 mg tablet, Take 5 mg by mouth in the morning and at bedtime., Disp: , Rfl: famotidine (Pepcid) 20 mg tablet, Take 1 tablet (20 mg) by mouth in the morning and at bedtime for 58 doses., Disp: 58 tablet, Rfl: 0 levothyroxine (Synthroid, Levoxyl) 150 mcg tablet, Take 1 tablet (150 mcg) by mouth before breakfast., Disp: 30 tablet, Rfl: 0 liothyronine (Cytomel) 25 mcg tablet, Take 0.5 tablets by mouth in the morning., Disp: , Rfl: pantoprazole (ProtoNix) 40 mg EC tablet, Take 1 tablet (40 mg) by mouth before breakfast and before evening meal for 59 doses. Do not crush, chew, or split., Disp: 59 tablet, Rfl: 0 tamsulosin (Flomax) 0.4 mg 24 hr capsule, Take 1 capsule every day by oral route for 90 days., Disp: , Rfl: vitamin B complex 221-9-273-2-2 mg/mL injection, Inject into the shoulder, thigh, or buttocks every 30 (thirty) days. Last dose 10/27/23, Disp: , Rfl: Last Recorded Vitals BP 140/86 (BP Location: Right arm, Patient Position: Sitting) Pulse 50 Ht 1.727 m (5' 8 ) Wt 85.3 kg (188 lb) SpO2 96% BMI 28.59 kg/m??? Physical Examination: GENERAL: alert and oriented [...] reversible ischemia. Ejection fraction is normal. Transesophageal Echocardiogram-[facility] Name: VIANEY LACEY Study Date: 07/11/2023 12:24 PM B/P: 104 mmHg/74 mmHg HR: Date of : 1960 Location: [facility] Height: 68 in. Age: 63 year(s) Patient Room : Weight: 189 lb. Gender: Male Patient Status: OutPt BSA: 2 m2 Indication: Atrial Fibrillation, Pre-Cardioversion Examination: JAMIN (Transesophageal Echo / CFI) Image Quality: Good Patient Consent: Informed, written consent was obtained for the procedure s p @ c 3 Exam Location: A JAMIN was performed in the Cloth Checker without complications s p @ c 3 [...] appears enlarged. Mitral Valve: Mild mitral regurgitation. Tric (more content not included)... [facility] 12-26-2023 Note Thank you [facility] Consult Note Reason for visit: Afib ablation HP and consent 12/26/23 patient underwent atrial fibrillation ablation on 11/16/2023. his amiodarone was stopped post ablation and subsequently he had an episode of what appeared to be atrial flutter. at this time he was started on amiodarone for maintenance of sinus rhythm in the blanking period. He is doing well and has bradycardia EKG 12/26/23 Sinus bradycardia PVI 11/16/23 LA baseline (mmHg) 1st and 2nd 13/8 (HR 70bpm Afib), 14/8 VR 65 in Afib LA 600ms pacing (mmHg) NA AHms 71 (post abln) HVms 61 (post abln) VERPms 600/310, VA condunction + AV Wenkebach ms 440 AH jump ms NA AVNERP ms 600/370 AERP ms 600/230 POST PROCEDURE DIAGNOSIS 1. 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 2. Atrial flutter s/p bidirectional block. 3. Poor sinus node function. 4. No retrograde left sided accessory pathway. Prior HPI: Vianey Lacey is a 63 y.o. [...] function. He is also recently seen a body joiner. They are weaning of amantadine which was started in the past after a closed head injury. No orthopnea, no paroxysmal tunnel dyspnea no lower extremity edema. PMH: Past Medical History: Diagnosis Date Abnormal ECG Arrhythmia Atrial fibrillation (CMS/HCC) Heart valve disease moderate mitral regurgitation and tricuspid regurgitation Hypothyroidism Sleep apnea PSH: Past Surgical History: Procedure Laterality Date BACK SURGERY HERNIA REPAIR REPLACEMENT TOTAL KNEE ONCOLOGIC SHOULDER SURGERY SH: Social Determinants of Health Tobacco Use: Low Risk (12/26/2023) Patient History Smoking Tobacco Use: Never Smokeless Tobacco Use: Never Passive Exposure: Not on file Alcohol Use: Not on file Financial Resource Strain: Low Risk (11/16/2023) Overall Financial Resource Strain (CARDIA) Difficulty of Paying Living Expenses: Not hard at all Food Insecurity: No Food Insecurity (11/16/2023) Hunger Vital Sign Worried About Running Out of Food in the Last Year: Never true Ran Out of Food in the Last Year: Not on file Transportation Needs: No Transportation Needs (11/16/2023) Transportation Lack of Transportation (Medical): No Lack of Transportation (Non-Medical): Not on file Physical Activity: Not on file Stress: Not on file Social Connections: Not on file Intimate Partner Violence: Unknown (11/16/2023) Humiliation, Afraid, Rape, and Kick questionnaire Fear of Current or Ex-Partner: No Emotionally Abused: Not on file Physically Abused: Not on file Sexually Abused: Not on file Depression: Not on file Housing Stability: Low Risk (11/16/2023) Housing Stability Vital Sign Unable to Pay for Housing in the Last Year: Not on file Number of Places Lived in the Last Year: Not on file Unstable Housing in the Last Year: No Utilities: Not At Risk (11/16/2023) [facility] Utilities Threatened with loss of utilities: No Allergies: No Known Allergies Weight: 87.5kg Visit Vitals BP 110/74 (BP Location: Left arm, Patient Position: Sitting, BP Cuff Size: Adult) Resp 11 Ht 1.727 m (5' 8 ) Wt 87.5 kg (193 lb) BMI 29.35 kg/m??? Smoking Status Never BSA 2.05 m??? Meds: Current Outpatient Medications on File Prior to Visit Medication Sig Dispense Refill amantadine (Symmetrel) 100 mg capsule Take 1 capsule every day by oral route for 30 days. amiodarone (Pacerone) 200 mg tablet Take 2 tablets (400 mg) by mouth in the morning and at bedtime for 14 days, THEN 1 tablet (200 mg) once daily as directed. 146 tablet 0 aspirin 81 mg chewable tablet Chew 1 tablet (81 mg) in the morning for 98 doses. Do not start before November 18, 2023. 30 tablet 3 Eliquis 5 mg tablet Take 5 mg by mouth in the morning and at bedtime. famotidine (Pepcid) 20 mg tablet Take 1 tablet (20 mg) by mouth in the morning and at bedtime for 58 doses. 58 tablet 0 levothyroxine (Synthroid, Levoxyl) 150 mcg tablet Take 1 tablet (150 mcg) by mouth before breakfast. 30 tablet 0 liothyronine (Cytomel) 25 mcg tablet Take 0.5 tablets by mouth in the morning. pantoprazole (ProtoNix) 40 mg EC tablet Take 1 tablet (40 mg) by mouth before breakfast and before evening meal for 59 doses. Do not crush, chew, or split. 59 tablet 0 tamsulo (more content not included)... [facility] 11-17-2023 Note Renal condition is stable [facility] 11-17-2023 Note 11/17/23 1017 Admission Assessment Questions [...] Discharge? No Does the patient have a employment case manager assigned to them through their insurance? No Living Arrangement (Current/Prior to Hospitalization) Private residence;Home self care (one story house - 2 entry stairs) Does the patient have history of HHC or SNF? Yes ([facility] following brain injury 2010) Assistive Device Other [...] you able to send link and activate AppJethart? MyChart already active [facility] 11-16-2023 Note ATRIAL FIBRILLATION ABLATION PROCEDURE NOTE DATE OF PROCEDURE: 11/16/2023 PERFORMING PHYSICIAN: Dr. Jeovanny Scott AQUATICS COORDINATOR: Dr Blanca Verde CONSENT: Patient NAME OF [...] Coumadin ridge. Esophagus was mapped using the [employer] 3D mapping software and noted to be [...] revealed a lar (more content not included)... [facility] 11-16-2023 Note Patient: ODILON Mcintosh Olynn Procedure Summary Date: 11/16/23 Room / Location: [facility] [employer] 1 EP / [facility] (Cath) Anesthesia Start: 1210 Anesthesia [...] per anesthesia protocol. No notable events documented. [facility] 11-16-2023 Note Patient: ODILON Mcintosh Olynn Procedure Summary Date: 11/16/23 Room / Location: [facility] [employer] 1 EP / [facility] (Cath) Anesthesia Start: 1210 Anesthesia [...] Line Transport: uneventful Patient condition is: stable [facility] 11-16-2023 Note Airway Date/Time: 11/16/2023 12:27 PM Urgency: elective Airway not difficult General Information and Staff Patient location during procedure: OR Anesthesiologist: Gissell Heller MD Resident/SUPERVISOR PIPE FINISHING/CAA: Edy Marino DO Performed: resident/SUPERVISOR PIPE FINISHING/AUDREY Indications and Patient Condition Indications for airway [...] 1 Number of other approaches attempted: 0 [facility] 11-16-2023 Note Arterial Line: Date/Time: 11/16/2023 [...] mL - 11/16/2023 12:00:00 PM Staffing Performed: resident/SUPERVISOR PIPE FINISHING/AUDREY Resident/SUPERVISOR PIPE FINISHING: Tara Penny MD Performed by: Tara Penny MD Authorized by: Gissell Heller MD [facility] 11-16-2023 Note Patient: ODILON Mcintosh Olynkechi Procedure Information Anesthesia Start Date/Time: 11/16/23 1211 Procedures: Ablation atrial fibrillation JAMIN during EP case Location: [facility] [facility] EP / [facility] (Cath) Providers: Jeovanny Scott MD [...] 86 QT Interval 392 QTC CALCULATION(BAZETT) 429 R-[place] -15 T Wave [place] -6 Impression Atrial fibrillation Abnormal ECG When compared with ECG of 11-JUL-2023 12:42, Atrial fibrillation has replaced Sinus rhythm Vent. rate has increased BY 25 BPM Transesophageal echo (JAMIN) with possible cardioversion Result Date: 07/11/2023 1 [facility] [address] [place] [address] [phone] (fax) Transesophageal Echocardiogram-[facility] Name: VIANEY LACEY Study Date: 07/11/2023 12:24 PM B/P: 104 mmHg/74 mmHg HR: Date of : 1960 Location: [facility] Height: 68 in. Age: 63 year(s) Patient Room: Weight: 189 lb. Gender: Male Patient Status: OutPt BSA: 2 m2 Indication: Atrial Fibrillation, Pre-Cardioversion Examination: JAMIN (Transesophageal Echo / CFI) Image Quality: Good Patient Consent: Informed, written consent was obtained for the procedure Exam Location: A JAMIN was performed in the Cloth Checker without complications Anesthesia Pharyngeal anesthesia with viscous [...] in the aorta. Procedure Staff Reading Group: [facility] Implementation Director: Cherrie Armstrong RDCS Ordering Physician: George Loza [...] Equipment Requests Tara Penny MD PGY 4 Wireless Team Member [facility] 11-02-2023 History of Present illness Narrative Associated Order(s): $ Large Joint Injection: R knee Post-Procedure Diagnose(s): Primary osteoarthritis of right knee 11/02/2023 Vianey Lacey is a 63 y.o. male CC: Chief Complaint Patient presents with Follow-up Right knee pain - wants injection - last seen 05/24/23 HPI: Kathie returns for re-evaluation of right knee pain. [...] options were reviewed for the problem. Vianey Carlos Lacey opted to continue with periodic steroid [...] evaluated the patient today with my physician speech language pathology assistant and agree with all aspects of [...] via procedure documentation documented in this encounter [facility] 10-30-2023 Note [facility] Note Reason for visit: Afib ablation HP and consent HPI: Vianey aLcey is a 63 y.o. year old with [...] function. He is also recently seen a body joiner. They are weaning of amantadine which was [...] route for 90 days. vitamin B complex 593-0-313-2-2 mg/mL injection Refill(s) 0 amantadine (Symmetrel) 100 [...] Inspection and Palpat (more content not included)... [facility] 10-30-2023 Note Patient here for H&P prior to afib ablation scheduled for 11/16/[address] Scott. Denies chest pain, SOB, palpitations, lightheadedness/syncope, and bleeding on Eliquis. Review of Systems Constitutional: Positive for malaise/fatigue. All other systems reviewed and are negative. [facility] 10-16-2023 Hospital Discharge instructions Patient Education [...] provider. Document Revised: 01/20/2022 Document Reviewed: 01/20/2022 Elsevier Patient Education 2022 [employer]. Follow Up Care 07/31/2023 10:30:59 With:HERRERA PRIETO, Vianey Ty, URL Address: [facility] [address], [place] [address]- When:Within 1 Year(s) Comments:w/AARON [facility] 09-08-2023 Note [facility] Consult [...] function. He is also recently seen a body joiner. They are weaning of amantadine which was [...] route for 90 days. vitamin B complex 606-5-085-2-2 mg/mL injection Refill(s) 0 No current facility-administered [...] Ins (more content not included)... [facility] 08-10-2023 Note [facility] Cardiology Clinic Note Chief Complaint: Patient here [...] function. He is also recently seen a body joiner. They are weaning of amantadine which was [...] days., Disp: , Rfl: vitamin B complex 814-8-073-2-2 mg/mL injection, Refill(s) 0, Disp: , Rfl: [...] reversible ischemia. Ejection fraction is normal. Transesophageal Echocardiogram-[facility] Name: VIANEY LACEY Study Date: 07/11/2023 12:24 PM B/P: 104 mmHg/74 mmHg HR: Date of : 1960 Location: [facility] Height: 68 in. Age: 63 year(s) Patient Room : Weight: 189 lb. Gender: Male Patient Status: OutPt BSA: 2 m2 Indication: Atrial Fibrillation, Pre-Cardioversion Examination: JAMIN (Transesophageal Echo / CFI) Image Quality: Good Patient Consent: Informed, written consent was obtained for the procedure s p @ c 3 Exam Location: A JAMIN was performed in the Cloth Checker without complications s p @ c 3 [...] EKG (more content not included)... [facility] 07-27-2023 Evaluation note Encounter Date Diagnosis [...] advised him to avoid NSAIDs or any [id number] er supplements. This deanna with the importance [...] - G47.33) Continue follow-up with the specialist. [employer] Other 10-17-2023 History general Narrative - Reported* Type Description Date Medical History FATIGUE Medical History EDEMA Surgical History CARDIO VERSION 07/11/2023 Surgical History LEFT KNEE REPLACEMENT Surgical History C5-C6 PLATE AND SCREWS Surgical History DOUBLE HERNIA REPAIR Surgical History RIGHT SHOULDER SCOPE Surgical History COLONOSCOPY Surgical History CYSTO SCOPE Hospitalization History SEE ABOVE [employer] Other 10-17-2023 NotePatient: ODILON Lacey Procedure Information Date/Time: 07/11/23 1200 Procedure: Cardioversion Location: [facility] / [facility] (Cath) Providers: George Loza MD Clinical information reviewed: Physical Exam Airway Mallampati: III TM distance: >3 FB Neck ROM: full Cardiovascular Rhythm: irregular Dental Pulmonary Breath sounds clear to auscultation Abdominal Abdomen: soft Anesthesia Plan ASA 3 (Conscious sedation) Anesthetic plan and risks discussed with patient. Use of blood products discussed with patient who. [facility] Card[facility] Clinic Note Chief Complaint: Patient here to re-establish care for PAF. Was last seen in [address] Peck. Had echo and ECG yesterday. states they recently returned home from [place]. While they were there, he had intermittent SOB with very swollen ankles. 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 Feeling chest pressure. He is in the process of getting a cpap machine for NANCY. HPI: ODILON Lacey is a 63 y.o. male known to me from prior office visits and his - Nitza Addison who works at [employer]. He has a known h/o PAF in the past ([phone]) thought to be related to thyroid issues [...] ST-T wave changes Assessment: Paroxysmal atrial fibrillation, [id number] score of 2-3 Chest pain - unstable [...] our elect (more content not included)...[facility] Hospital Discharge instructions Patient Education [...] therapy. Follow these instructions at home: Take stni-bks-oqkmnpq and prescription medicines only as told by [...] provider. Document Revised: 05/13/2021 Document Reviewed: 05/13/2021 [employer] Patient Education 2022 [employer]. Follow Up Care 05/04/2023 10:34:04 With:HERRERA PRIETO, Vianey Crawford, URL Address: [facility] [address] , [place] [address]- [phone] When:Within 6 Month(s) Comments:w/Testosterone Level, PSA and CBC [facility] 08-02-2023 NoteHNO ID: [id number] Author: Shawanda Hernandez PA-C Service: ? Author Type: Physician Housetrailer Servicer Type: Progress Notes Filed: 04/26/2023 11:40 AM [...] disc disease CVA (cerebral vascular accident) ([facility]) due to head trauma Dysarthria Eczema Hypothyroidism [...] Full Oblique Extension With (more content not included)...[facility] History of Present illness Narrative* [...] 2023 TIME: 11:15 AM [facility] Hospital Discharge instructions Patient Education 12/02/2022 [...] urethra. Follow these instructions at home: Take mesf-mdi-bdkdesy and prescription medicines only as told by [...] 09/11/2006 Document Revised: 08/06/2019 Document Reviewed: 10/16/2017 [employer] Patient Education 2020 [employer]. Follow Up Care 11/01/2022 10:29:54 With:HERRERA PRIETO, Vianey Crawford, URL Address: [address] [place], [place] [id number]- When: Unknown [facility] 11-18-2022 History of Present illness Narrative* Aarti Kelsey MA, CCC, CHEESE TESTER - 08/12/2022 12:27 PM EST SPEECH LANGUAGE [...] stated should already be in the system. CHEESE TESTER was speaking with patient's spouse via phone conversation attempting to troubleshoot and bypass the preliminary questionnaires. However, it was unsuccessful. CHEESE TESTER sent patient's spouse a direct link to her cell phone to connect to video visit and the same issues arose. Patient was connected to Wifi and using an iPad in home setting. The iPad did not successfully pass the hardware test and patient/patient's spouse were never able to successfully log on. CHEESE TESTER provided patient/patient's spouse the [facility] Support Team's contact information to reach out for further assistance with log on issues. CHEESE TESTER will e-mail patient's spouse/patient information regarding memory strategies, etc to help in the home setting (patient's spouse reported patient tends to misplace belongings, such as keys, etc and could use a refresher on the strategies. Patient's spouse stated she will take a look at the strategies and go from there with scheduling anything further. CHEESE TESTER provided patient/spouse with our direct line to SR Therapy dept if she has any further questions/concerns or needs to schedule. Patient left without being seen this date. documented in this [id number] Instructions* Patient Instructions* Jovita Virk MD - 07/20/2022 2:49 PM EDT -Get the sleep apnea addressed -Hold amantadine -Add memantine 5mg daily. -External referral for brain MRI. -Speech therapy for cognitive strategies. -R knee surgery. -F/up 1 year, sooner if needed. documented in this [id number] History of Present illness Narrative* Jovita Virk [...] 200 mg into the muscle once amonth. 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 Last available brain imaging [id number] showed ventriculomegaly that was deemed not hydrocephalus [...] Risk protocol implemented: No documented in this [id number] Telephone encounter Note* Telephone Encounter - Renetta [...] PCP on file No PCP on file [id number] Miscellaneous Notes* Telephone Encounter - Renetta Boyer [...] Appointments Appointment Date:02/01/2022 10:00:00 AM Scheduled Provider: Location:[facility] Appointment Type:URO Nurse Visit Appointment Date:03/01/2022 09:00:00 AM Scheduled Provider:Saeed Cantu Jr., MD Location:[facility] Appointment Type:URO Office Visit Appointment Date:04/05/2022 11:15:00 AM Scheduled Provider:Saeed Cantu Jr., MD Location:[facility] Appointment Type:URO Office Visit [facility] evaluation + Plan note Future Appointments Appointment Date:03/01/2022 09:00:00 AM Scheduled Provider:Saeed Cantu Jr., MD Location:[facility] Appointment Type:URO Office Visit Appointment Date:04/05/2022 11:15:00 AM Scheduled Provider:Saeed Cantu Jr., MD Location:[facility] Appointment Type:URO Office Visit [facility] evaluation + Plan note Future Appointments Appointment Date:04/05/2022 11:15:00 AM Scheduled Provider:Saeed Cantu Jr., MD Location:[facility] Appointment Type:URO Office Visit Diagnostic Tests Pending * Testosterone Level Total 03/01/22 [facility] evaluation + Plan note Future Appointments Appointment Date:07/11/2022 10:15:00 AM Scheduled Provider: Location:[facility] Appointment Type:URO Nurse Visit [facility] evaluation + Plan note Future Appointments Appointment Date:09/07/2022 10:00:00 AM Scheduled Provider: Location:[facility] Appointment Type:URO Nurse Visit [facility] evaluation + Plan note Future Appointments Appointment Date:10/05/2022 10:00:00 AM Scheduled Provider: Location:[facility] Appointment Type:URO Nurse Visit [facility] evaluation + Plan note Future Appointments Appointment Date:11/01/2022 10:00:00 AM Scheduled Provider: Location:[facility] Appointment Type:URO Nurse Visit [facility] evaluation + Plan note Future Appointments Appointment Date:11/30/2022 10:00:00 AM Scheduled Provider:Taylor Joshua MD Location:[facility] Appointment Type:URO Office Visit Diagnostic Tests Pending * CBC w/ Auto Diff 11/01/22 * Testosterone Level Total 11/01/22 [facility] evaluation + Plan note Diagnostic Tests Pending * Testosterone Level Total 12/17/22 * Testosterone Level Total 04/25/23 [facility] evaluation + Plan note Future Appointments Appointment Date:04/05/2023 10:00:00 AM Scheduled Provider: Location:[facility] Appointment Type:URO Nurse Visit [facility] evaluation + Plan note Future Appointments Appointment Date:05/30/2023 10:00:00 AM Scheduled Provider: Location:[facility] Appointment Type:URO Nurse Visit [facility] evaluation + Plan note Future Appointments Appointment Date:07/10/2023 09:30:00 AM Scheduled Provider: Location:[facility] Appointment Type:URO Nurse Visit Appointment Date:11/27/2023 09:45:00 AM Scheduled Provider:Vianey SILVERMAN MD Location:[facility] Appointment Type:URO Office Visit Diagnostic Tests Pending * Testosterone Level Total 06/12/23 * PSA Total 06/12/23 * CBC w/ Auto Diff 06/12/23 [facility] evaluation + Plan note Future Appointments Appointment Date:10/21/2024 10:15:00 AM Scheduled Provider:Vianey SILVERMAN MD Location:[facility] Appointment Type:URO Office Visit Diagnostic Tests Pending * PSA Total 10/16/23 [facility] evaluation + Plan note Future Appointments Appointment Date:10/21/2024 10:15:00 AM Scheduled Provider:Vianey SILVERMAN MD Location:[facility] Appointment Type:URO Office Visit [facility] Evaluation note* 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 Body mass index (BMI) 28.0-28.9, adult [facility] Height loss- Primary Loss of height [facility] Primary osteoarthritis of right knee- Primary documented in [facility] noteNo assessment information available [facility] Work Phone: Hospital course Narrative No data available for this section [facility] Hospital Discharge instructions No data available for this section [facility] InstructionsNot on filedocumented in this encounter [facility] note No data available for this section [facility] Advance Directives No Advanced Directives [...] Code 09/05/2016 8:43 PM 09/08/2016 4:31 PM Advance Directive Response Recorded Date/ Time Advance Directives No October 28, 2023 12:48pm Reason for Referral Specialty Diagnoses / Procedures Referred By Contdoug t Referred To Contact Neuroradiology Diagnoses Cognitive changes Late effect of brain injury (HCC) Jovita Virk MD [address] [place] [id number] Referral ID Status Reason Start Date Expiration Date Visits Requested Visits Authorized [id number] Authorized Patient Preference 2 07/20/2023 3 3 Comments Brain MRI without contrast. H/o TBI 2010. Continues to struggle with cognitive deficits, fatigue, impaired balance, unimproved. Please evaluate for other structural causes of these issues. Fax report to me at [phone]. Specialty Diagnoses / Procedures Referred By Stephany flower Referred To Contact Speech Pathology Diagnoses Cognitive changes Late effect of brain injury (HCC) Jovita Virk MD [address] [place] [phone] [place] [address] Referral ID Status Reason Start Date Expiration Date Visits Requested Visits Authorized [id number] Pending Review Consultatio n-[facility] 2 07/20/2023 10 10 Question Answer Is [...] Purpose Family History No Family History Records Found Relationship Condition Age at Onset Recorded Date/T benjamín brother Family history of mental disorder Unknown father Unknown Heart disease Unknown History of stroke Unknown Malignant neoplasm Unknown family member Family history of other condition Unknow n mother Heart disease Unknown Unknown son Hypertension Unknown Additional Source Comments Reason for Visit (unrecogniz ed section and content) Reason Comments Refill Reason Comments Monitoring/follow-up Reason Comments back issue Reason Comments Follow-up Right knee pain - wa nts injection - last seen 05/24/23 Care Teams (unrecognized sec tion and content) Instructional Technology Coordinator Relationship Specialty Start Date End Date Jovita Virk MD [address] [place] [address] Physician Physical Medicine & Rehab/PM&R 06/30/20 Instructional Technology Coordinator Relationship Specialty Start Date End Date Jovita Virk MD [address] [place] [address] Physician Physical Medicine & Rehab/PM&R 06/30/20 Instructional Technology Coordinator Relationship Specialty Start Date End Date Jovita Virk MD [address] [place] [address] Physician Physical Medicine & Rehab/PM&R 06/30/20 Instructional Technology Coordinator Relationship Specialty Start Date End Date Ilda Peck MD PCP - General Family Medicine 12/04/17 Instructional Technology Coordinator Relationship Specialty Start Date End Date Ilda Peck MD [address] [place] [phone] PCP - General 07/05/16 Team Status: Active Member Role Status Dates Ilda Peck MD Primary Care Provider Active Team Status: Inactive Member Role Status Dates Ilda Peck MD Primary Care Provider Active Start: April 05, 2024 End: April 05, 2024 Tracy Griffin MD Attending Provider Active St art: April 05, 2024 End: April 05, 2024 (unrecognized sect ion and content) No Status Records FoundNo Status Records FoundNo Status Records FoundNo Status Records FoundNo Status Records FoundNo Status Records FoundNo Status Records Found INFORMATION SOURCE (unrecogn ized section and content) DATE CREATED AUTHOR 01/27/2023 [facility] DATE CREATED AUTHOR AUTHOR'S ORGANIZ ATION 04/27/2023 [facility] DATE CREATED AUTHOR AUTHOR'S ORGANIZ ATION 09/23/2023 [facility] DATE CREATED AUTHOR AUTHOR'S ORGANIZ ATION 11/06/2023 [facility] DATE CREATED AUTHOR AUTHOR'S ORGANIZ ATION 04/12/2024 [facility] DATE CREATED AUTHOR AUTHOR'S ORGANIZ ATION 04/15/2024 [facility] DATE CREATED AUTHOR AUTHOR'S ORGANIZ ATION 05/09/2024 [facility] Source Comments (unrecognize d section and content) In the event this informatio n is protected by the Federal Confidentiality of Alcohol and Drug Abuse Patient Records regulations: The Federal rules restrict any use of the information to criminally investigate or prosecute any alcohol or drug abuse patient.[facility] Goals (unrecognized section and content) Goals may be documented in a n alternate section FOR RECORDS PERTAINING TO PATIENTS WHO ARE [...] BE BASED ON THE PRIMARY CLINICAL RECORDS. [facility]. provides no warranty or guarantee of the accuracy or completeness of information in this document.
== END 2024-05-16 14:33 | disposition home or self-care (01) ==
LOC: PST 14:33
PROVIDERS: PCP Family Medicine; Visit Provider Surgery
DX: Z01.818 Encounter for other preprocedural examination (principal); Z12.11 Encounter for screening for malignant neoplasm of colon

== ENCOUNTER 2024-05-29 06:42 | Day surgery (SDC) | payer BC, MEDICARE, SELFPAY ==
--- NOTE | 2024-05-29 | OP_ITS ---
OPERATION DATE: 05/29/2024 PREOPERATIVE DIAGNOSIS: Colorectal screening. POSTOPERATIVE DIAGNOSIS: Normal colonoscopy to cecum. PROCEDURE: Colonoscopy to cecum. SURGEON: Ryan Yang M.D. ANESTHESIA: Monitored anesthesia care. ESTIMATED BLOOD LOSS: Zero. INDICATIONS AND CONSENT: Patient is a 64-year-old male who presents for colorectal screening. Indications, risks, benefits, alternatives of proceeding with colonoscopy were explained extensively to the patient, including the risks of bleeding, colon perforation or anesthetic complications. All of his questions were answered. Informed consent was obtained. PROCEDURE: Patient brought to the operating room, placed in the left lateral decubitus position. Monitored anesthesia care was provided. Patient had held his Eliquis two days prior to the procedure. Rectal exam was performed which showed no masses or blood. The scope was inserted into the anal canal. Under direct visualization was advanced. It was advanced to the cecum where cecal markings were clearly identified. There was noted to be a good prep. Upon withdrawal of the scope, mucosal surfaces were carefully examined. There were no mass lesions or polyps. No inflammatory changes or ulcerations. No significant diverticulosis. The scope was retroflexed in the anal canal. There was no significant hemorrhoidal disease. Scope was then withdrawn. Patient tolerated procedure well, was sent to recovery room in good condition. f/u screening colonoscopy in 10 years. CC: Ryan Hendrickson M.D. MARY ANN
--- OUTSIDE RECORDS SUMMARY | 2024-05-29 06:46 | XMS_ITS | CCD ---
Author Organization [facility] Care Team Providers Care Receiving Clerk Name Role Phone Ilda Peck Primary Care Physician [phone] Moose PRIETO, Jovita Unavailable Moose PRIETO, Jovita [...] Unavailable Ilda Peck MD Primary Care Provider [phone] ILDA PECK Primary Care Unavailable SHAWANDA HERNANDEZ Attending Unavailable Sandoval Knight Unavailable Ilda Peck MD Primary Care Provider [phone] OSMIN ANTHONY Attending Unavaila ble ILDA PECK Referring Unavailable ILDA PECK Primary Care Unavailable MD Ilda Peck Primary Care Provider [phone] MD Tracy Griffin Attending Provider Ilda Peck [...] [ciprofloxacin] Drug Allergy Patient reported problems (finding) [facility] General Surgery [place] (1 source) Ciprofloxacin Drug Allergy 3 [facility] Repository (1 source) Ciprofloxacin; Translations: [Cipro] Drug Allergy [facility] Repository (1 source) No Known Medication Allergies; Translations: [No Known Medication Allergies] Propensity to adverse reactions (disorder) [facility] Repository Medications Current Medications Medication Drug [...] q4wk, # 10 mL, Refills(s) 1, Pharmacy: [facility]/pharmacy #[id number], 167, cm, 10/05/21 11:32:00 [...] take 1 capsule by mouth once daily [place]-3 Fatty Acids (FISH OIL) 1000 MG CAPS [...] Ordered Start: 02-08-2017 take 1 tablet by [facility] once daily liothyronine (CYTOMEL) 25 MCG tablet Take 1 Tablet by mouth daily. 30 Tablet 3 02/08/2017 Active Comment on above: Take 25 mcg by mouth once daily. memantine hydrochloride 5 mg oral tablet (4 sources) B-ezriyn-X-aspartat e Receptor Antagonist Start: 2 End: 2 [...] day(s), # 180 cap(s), Refills(s) 3, Pharmacy: [facility]/pharmacy #[id number], 167, cm, 10/05/21 11:32:00 EST, Height/Length Dosing, 83, kg, 10/05/21 11:32:00 EST, Weight Dosing Start Date: 11/24/21 Stop Date: 11/19/22 Status: Ordered Start: 02-08-2017 take 1 capsule by [facility] once daily tamsulosin 0.4 mg Cap 0.4 mg = 1 cap(s), Oral, Daily, # 90 cap(s), Refills(s) 3, Pharmacy: [facility]/pharmacy #[id number], 170, cm, 06/12/23 12:26:00 EDT, Height/Length Dosing, 86.5, kg, 06/12/23 12:26:00 EDT, Weight Dosing Start Date: 07/07/23 Status: Ordered take 1 capsule by [facility] every twenty-four hours in the morning tamsulosin (FLOMAX) 0.4 mg capsule,extended release 24hr Take 1 capsule (0.4 mg total) by mouth in the morning. 0 Active Comment on above: 0.4 mg once daily. testosterone cypionate 200 mg/ml injectable solution (16 sources) Androgen Start: 05-03-2023 Depo-Testosterone 200 mg/mL intramuscular solution 300 mg, IntraMuscular, q4wk, # 10 mL, Refills(s) 1, [id number] 170, cm, 12/02/22 8:17:00 EST, Height/Length Dosing, 83.2, kg, 12/02/22 8:17:00 EST, Weight Dosing Start Date: 05/03/23 Status: Ordered Start: 09-07-2022 Depo-Testoster one 200 mg/mL intramuscular solution 300 mg, IntraMuscular, q4wk, # 10 mL, Refills(s) 1, Pharmacy: [facility]/pharmacy #[id number], 167, cm, 10/05/21 11:32:00 EST, Height/Length Dosing, 83, kg, 05/10/22 10:08:00 EDT, Weight Dosing Start Date: 09/07/22 Status: Ordered Start: 01-04-2022 Depo-Testoster one 200 mg/mL intramuscular solution 300 mg, IntraMuscular, q4wk, # 10 mL, Refills(s) 1, [id number], 167, cm, 10/05/21 11:32:00 EST, Height/Length [...] take 1 capsule by mouth once daily [place] Aspartate 20 mg cap Take 1 capsule by mouth once daily. 0 Active take 1 capsule by mouth once darius ly Nutritional Supplements (CREATINE) 750 MG CAPS Take 1 Capsule by mouth daily. 0 Active Comment on above: Take 1 capsule by [facility] once daily. omega-3 fatty acids (FISH OIL [...] sources) Long-term current use of 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; Translations: [snf (current) use of 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s] Onset: 4 Episodic [...] PRIETO, Vianey Crawford Where: [facility] [address] [place] [id number]- Medications What How Much When Instructions Unchanged [...] for choosing us for your care. Normal [facility] 36on 04-11-2024 36 Patient needs scheduled for colonoscopy and would like to know if he can hold Makayla prior. Please advise. Thanks! Normal [facility] 04-05-2024 L Specimen: [id number] Received: 04/08/24 Status: ROYER Fernandes Num: [id number] Spec Type: Impression Subm Dr: Tracy Griffin MD Tissues: PATHPER Procedures: PATHREVIEW Age/ Patient Sex Location Account Attending Physician Vianey Lacey 64/M [place] [id number] Tracy Griffin MD SPEC NUM: [id number] RECD: 04/08/24 STATUS: ROYER REQ NUM: [id number] LADONNA: 04/05/[address]: Tracy Griffin MD ENTERED: 04/08/24 [facility] DR: [facility] SPEC TYPE: Impression DEPT: SB Grey ENTERED BY: [id number] RECV BY: [id number] ORDERED: PATHREVIEW ORDERED: PATHREVIEW Pathologist Review Abnormal [...] autoimmune disease, again requiring clinical correlations CPT: 76138 ---- ---- Specimen: [id number] Received: 04/08/24 Status: ROYER Fernandes Num: [id number] Spec Type: Impression Subm Dr: Tracy Griffin MD Tissues: PATHPER Procedures: PATHREVIEW ---- Patient: Vianey Lacey [id number] (Continued) ---- Signed (signature on file) Memo Morrison MD 04/09/24 1024 Normal [facility] 02-07-2024 36 Blood pressure meds read outs: [...] at 12:10pm 144/80 heart rate56 Thank you, [facility] Office Visiton 02-07-2024 Follow-up visit [id number] Lane Lacey 1960 M Date Provider Department Center 02/07/2024 Isa-GEORGE LOZA [facility] Family History Problem Relation Age of Onset Cancer Mother Diabetes Mother Coronary artery disease Father Stroke Father Cancer Father Family Status - Relation Status Age at Mother Father Level of Service:68465 UT OFFICE/OUTPATIENT ESTABLISHED MOD MDM 30 MIN [facility] Office Visiton 12-26-2023 Follow-up visit [id number] Lane Lacey 1960 M Date Provider Department Center 12/26/2023 241-JEOVANNY SCOTT [facility] Family History Problem Relation Age of Onset Cancer Mother Diabetes Mother Coronary artery disease Father Stroke Father Cancer Father Family Status - Relation Status Age at Mother Father Level of Service:66050 UT OFFICE/OUTPATIENT ESTABLISHED LOW MDM 20 MIN Reason for Visit and Comments: Follow-up [548303] [facility] 36on 11-24-2023 36 Questioned rather to [...] site healed,taking all other meds including antacids. [facility] Telephoneon 11-24-[id number] Lacey 1960 M Date Provider Department Center 11/24/2023 1987-[facility] Family History Problem Relation Age of Onset Cancer Mother Diabetes Mother Coronary artery disease Father Stroke Father Cancer Father Family Status - Relation Status Age at Mother Father Reason for Visit and Comments: week post ablation f/u [Other] [facility] 30on 11-17-2023 30 Daily Case Managemen [...] Score: PT Recommendations: OT Recommendations: New Consults: [facility] 30 The patient is Moderately Stable [...] facility with appropriate resources Outcome: Progressing Normal [facility] BASIC METABOLIC PANELon - Anion gap [Moles/Vol] 8 mmol/L Normal 7-20 [facility] Comment on above: Performed By: #### L AB15 #### [facility] ([facility]) [address] [place] [address] Calcium [Mass/Vol] 8.6 mg/dL Normal 8.6-10.3 [facility] Comment on above: Performed By: #### L [id number] #### [facility] ([facility]) [address] [place] [address] Chloride [Moles/Vol] 102 mmol/L Normal 98-107 [facility] Comment on above: Performed By: #### L AB15 #### [facility] ([facility]) [address] [place] [address] CO2 [Moles/Vol] 31 mmol/L Normal 21-31 [facility] Comment on above: Performed By: #### L [id number] #### [facility] ([facility]) [address] [place] [address] Creatinine [Mass/Vol] 1.17 mg/dL Normal 0.70-1.30 [facility] Comment on above: Performed By: #### L [id number] #### [facility] ([facility]) [address] [place] [address] GLOMERULAR FILTRATION RATE ML/MIN/1.73 SQ M.PREDICTED 69.6 mL/min/1.73m*2 Normal >60.0 [facility] Comment on above: Result Comment: The [...] individuals. Performed By: #### L [id number] #### [facility] ([facility]) [address] [place] [address] Glucose [Mass/Vol] 95 mg/dL Normal 70-100 [facility] Comment on above: Performed By: #### L [id number] #### [facility] ([facility]) [address] [place] [address] Potassium [Moles/Vol] 3.8 mmol/L Normal 3.5-5.1 [facility] Comment on above: Performed By: #### L [id number] #### [facility] ([facility]) [address] [place] [address] Sodium [Moles/Vol] 137 mmol/L Normal 136-145 [facility] Comment on above: Performed By: #### L [id number] #### [facility] ([facility]) [address] [place] [address] Urea nitrogen [Mass/Vol] 19 mg/dL Normal 7-25 [facility] Comment on above: Performed By: #### L [id number] #### [facility] ([facility]) [address] [place] [address] UREA NITROGEN/CREATININE (MASS RATIO) IN SER/PLAS 16.2 Normal [facility] Comment on above: Performed By: #### L [id number] #### [facility] ([facility]) [address] [place] [address] CBCon 11-17-2023 Erythrocyte distribution width (RBC) [Ratio] 13.7 % Normal 11.5-15.0 [facility] Comment on above: Performed By: #### L [id number] #### [facility] ([facility]) [address] [place] [address] ERYTHROCYTE MEAN CORPUSCULAR HEMOGLOBIN CONCENTRATION (G/DL) BY AUTOMATED 34.7 g/dL Normal 32.0-35.0 [facility] Comment on above: Performed By: #### L [id number] #### [facility] ([facility]) [address] [place] [address] Hematocrit (Bld) [Volume fraction] 40.3 % Normal 39.0-55.0 [facility] Comment on above: Performed By: #### L [id number] #### [facility] ([facility]) [address] [place] [address] Hemoglobin (Bld) [Mass/Vol] 14.0 g/dL Normal 13.0-17.0 [facility] Comment on above: Performed By: #### L [id number] #### [facility] ([facility]) [address] [place] [address] IMMATURE PLATELET FRACTION % 2.1 % Normal 0.8-6.3 [facility] Comment on above: Performed By: #### L [id number] #### [facility] ([facility]) [address] [place] [address] MCH (RBC) [Entitic mass] 30.4 pg Normal 27.0-33.0 [facility] Comment on above: Performed By: #### L [id number] #### [facility] ([facility]) [address] [place] [address] MCV (RBC) [Entitic vol] 87.4 fL Normal 82.0-98.0 [facility] Comment on above: Performed By: #### L [id number] #### [facility] ([facility]) [address] [place] [address] PLATELETS (10*3/UL) IN BLOOD AUTOMATED COUNT 122 10*3/uL Low 150-400 [facility] Comment on above: Performed By: #### L [id number] #### [facility] ([facility]) [address] [place] [address] RBC (Bld) [#/Vol] 4.61 10*6/uL Normal 4.20-5.[address] [facility] Comment on above: Performed By: #### L [id number] #### [facility] ([facility]) [address] [place], [place] [address] WBC (Bld) [#/Vol] 6.76 10*3/uL Normal 4.00-10.[address] [facility] Comment on above: Performed By: #### L [id number] #### [facility] ([facility]) [address] [place] [address] CONSULTon 11-17-2023 CONSULT Reason For Consult Stroke alert Referring Provider: Columba, Cardiology MERINGUER History Of Present Illness ODILON Lacey is [...] function. He is also recently seen a felt puller. They are weaning of amantadine which was started in the past after a closed head injury. On Nov 16 Patient underwent ablation for atrial fibrillation. A JAMIN was performed in the [facility] without complications Anesthesia Pharyngeal anesthesia with viscous [...] lasted 10 minutes and resolved spontaneously. Cardiology MERINGUER called a stroke alert. Pt was in [...] for 90 days. 11/15/2023 vitamin B complex 545-0-398-2-2 mg/mL injection Inject into the shoulder, thigh, [...] 36.5 ???C (more content not included)... Normal [facility] CT HEAD WO IV CONTRASTon CT [...] reasonably achievable. Electronically signed: Apolinar Julian. Normal [facility] CTA HEAD W IV CONTRASTon CTA [...] malformation of the major vessels of the [place]. Mild calcified plaque without stenosis of bilateral intracranial internal carotid arteries. IMPRESSION: No evidence for high-grade stenosis or occlusion of the major vessels of the [place]. Electronically signed: Apolinar Julian. Normal [facility] CTA NECK W IV CONTRASTon CTA [...] concurrent physician supervision and reviewed. The [place] Symptomatic Carotid Endarterectomy Trial (NASCET) method for [...] as reasonably achievable Electronically signed: Apolinar Julian. [facility] DSon 11-17-2023 DS -- Attestation signed [...] Commonly known as: Flomax vitamin B complex 441-4-147-2-2 mg/mL injection Notes to patient: Take as directed. STOP taking these medications carvedilol 6.25 mg tablet Commonly known as: Coreg Where to Get Your Medications These [facility] [address] [facility] [place] [address] [facility] [place] [address], [facility] [address] famotidine 20 mg tablet levothyroxine 150 mcg [...] Skin is (more content not included)... Normal [facility] HEMOGLOBIN A1Con 11-17-2023 Glucose [Mass/Vol] 108 mg/dL [facility] Comment on above: Performed By: #### L AB90 ####[facility] ([facility])[address] [place] [address] HbA1c (Bld) [Mass fraction] 5.4 % Normal 4.0-6.0 [facility] Comment on above: Performed By: #### L AB90 ####[facility] ([facility])[address] [place] [address] LIPID PANELon 11-17-2023 CHOL/HDL 4.7 mg/dL Normal [facility] Comment on above: Performed By: #### L [id number] #### [facility] ([facility]) [address] [place] [address] Cholesterol [Mass/Vol] 154 mg/dL Normal 120-200 [facility] Comment on above: Performed By: #### L [id number] #### [facility] ([facility]) [address] [place] [address] Magnesium [Mass/Vol] 138 mg/dL Normal 40-149 [facility] Comment on above: Result Comment: TRIG LYCERIDE REFERENCE RANGE: 20 YEARS AND OLDER CARDIOVASCULAR RISK LESS THAN 150 mg/dL LOW RISK 150 TO 199 mg/dL BORDERLINE RISK 200 mg/dL AND GREATER HIGH RISK Performed By: #### L [id number] #### [facility] ([facility]) [address] [place] [address] Magnesium [Mass/Vol] 93 mg/dL Normal 0-160 [facility] Comment on above: Performed By: #### L [id number] #### [facility] ([facility]) [address] [place] [address] Magnesium [Mass/Vol] 33 mg/dL Normal 23-92 [facility] Comment on above: Performed By: #### L [id number] #### [facility] ([facility]) [address] [place] [address] NON HDL CHOL. (LDL+VLDL) 121 Normal [facility] Comment on above: Performed By: #### L [id number] #### [facility] ([facility]) [address] [place] [address] TOTAL VLDL-C 28 mg/dL Normal 0-40 [facility] Comment on above: Performed By: #### L [id number] #### [facility] ([facility]) [address] [place] [address] MR BRAIN WO CONTRASTon 11-17 MR BRAIN [...] of acute infarction. Electronically signed: Mahesh Ocampo. [facility] Orders Onlyon 11-17-[id number] Lacey 1960 M Date Provider Department Center 11/17/2023 JERI HOOPERaren [facility] Family History Problem Relation Age of Onset Cancer Mother Diabetes Mother Coronary artery disease Father Stroke Father Cancer Father Family Status - Relation Status Age at Mother Father [facility] 30on 11-16-2023 30 Problem: Pain - [...] did make progress toward the following [facility]. [facility] [facility] Electrophysiology Consult Note Reason for [...] function. He is also recently seen a felt puller. They are weaning of amantadine which was [...] route for 90 days. vitamin B complex 545-8-130-2-2 mg/mL injection Refill(s) 0 No current facility-administered [...] Musculoskeletal Ins (more content not included)... Normal [facility] NURSNOTEon 11-16-2023 NURSNOTE Desk Officer enters [facility] room around 1950 to assess his right groin cath site, and notices that the site is oozing. Site is still soft, no hematoma suspected. Desk Officer called cardiology to notify them of the situation. Cardiology would like the patient to lay flat for another hour, and to hold his eliquis for an hour. Rn also held pressure for 10 minuets. Desk Officer will keep cardiology updated on the situation. Normal [facility] POCT GLUCOSE METER UNSOLICIT ED RESULTSon 11-16-2023 Glucose [Mass/Vol] 88 mg/dL Normal 70-105 [facility] Comment on above: Order Comment: Waive d Testing in the ED is performed under the ED CLIA certificate #[id number]. Result Comment: asor ia3 Performed By: #### L [id number] #### [facility]) [address] [place] [address] PROTIME-INRon 11-16-2023 INR IN PPP BY COAGULATION ASSAY 1.11 High 0.90-1.10 [facility] Comment on above: Result Comment: ACCC [...] 1995;108:231S-246S. 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 Do not wear perfume, make-up, nail welsh, or lotions on the day of your [...] need to make any changes, please call [phone]. Notify your surgeon if you develop any illness such as a cold, cough, fever, sore throat or vomiting between now and your surgery. Thank you for entrusting us with your care. [facility] Surgical Services Team Normal [facility] $ Large Joint Injection: Ty fang [...] with betadine and alcohol.). MANUALLY TRANSCRIBED RESULTS [facility] Office Visiton 10-30-2023 Follow-up visit [id number] Lane Lacey 1960 M Date Provider Department Center 10/30/2023 Cathy6-DEMETRA [facility] Family History Problem Relation Age of Onset Cancer Mother Diabetes Mother Coronary artery disease Father Stroke Father Cancer Father Family Status - Relation Status Age at Mother Father Level of Service:01187 UT OFFICE/OUTPATIENT ESTABLISHED MOD MDM 30 MIN Normal [facility] Physician Referralon 024 Physician Referral [id number] 0TIFF Normal [facility] Lab Reportson 10-17-2023 Lab Reports [id number] TIFF Normal [facility] Ambulatory Visit Summaryon 0 10-16-2023 Ambulatory Visit Summary VIANEY LACEY :1960 Visit Date:10/16/2023 Ambulatory Visit Instructions Your Diagnosis BPH with urinary obstruction Hypogonadism male Urge incontinence ED (erectile dysfunction) Tests Performed Urnls Dip Stick Auto w/o Microscopy POC 43448 Your Care Team Attending Physician - Vianey [...] PRIETO, Vianey Crawford Where: [facility] Normal [facility] Patient Educationon 10-16-19 Patient Education Obstetrics [...] provider. Document Revised: 01/20/2022 Document Reviewed: 01/20/2022 [employer] Patient Education ? [address] [facility] Urology Office/Clinic Noteon 10-16-2023 Urology [...] [facility] [address], [place] [address]- Additional Instructions: w/PSA Patient Education Kejayna Contreras I, Megan Brunson , personally scribed for Dr. Silverman on 10/16/2023 14:05:07. . Documentation recorded by the scribe, Megan Brunson, accurately reflects the services(s) I performed and decisions made by me. Problem List/Past Medical History Ongoing BPH with urinary obstruction ED (erectil (more content not included)... Normal [facility] Comment on above: Result Comment: Elec tronically Signed By: Vianey SILVERMAN MD\.br\Date and Time Signed: 10/16/23 14:10 EST\.br\Electronically Co-Signed By: Megan Brunson\.br\Date and Time Co-Signed: 10/16/23 14:05 EST Letter (Out)on 10-13-2023 Letter (Out) [id number] Lane Lacey J 1960 M Date Provider Department Center 10/13/2023 None-None [facility] [place] [facility] Family History Problem Relation Age of Onset Cancer Mother Diabetes Mother Coronary artery disease Father Stroke Father Cancer Father Family Status - Relation Status Age at Mother Father Normal [facility] Orders Onlyon 09-27-[id number] Lacey zonia Mcintosh 1960 [facility], [facility] Provider Department Center 09/27/2023 928-ISH[facility]EL [facility] Family History Problem Relation Age of Onset Cancer Mother Diabetes Mother Coronary artery disease Father Stroke Father Cancer Father Family Status - Relation Status Age at Mother Father Normal [facility] Prep for Procedureon 024 Prep for Procedure [id number] Lane Lacey zonia Mcintosh 1960 [facility] Provider Department Center 09/27/2023 1987-[facility] [place] [facility] Family History Problem Relation Age of Onset Cancer Mother Diabetes Mother Coronary artery disease Father Stroke Father Cancer Father Family Status - Relation Status Age at Mother Father Normal [facility] Telephone Encounteron 2022 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 Please contact patient to schedule office visit. Thank you Normal [facility] Office Visiton 09-08-2023 Follow-up visit [id number] Lane Lacey zonia Mcintosh 1960 [facility] Provider Department [place] 09/08/2023 241-JEOVANNY SCOTT [facility] Family History Problem Relation Age of Onset Cancer Mother Diabetes Mother Coronary artery disease Father Stroke Father Cancer Father Family Status - Relation Status Age at Mother Father Level of Service:54727 UT OFFICE/OUTPATIENT NEW MODERATE MDM 45 MINUTES Reason for Visit and Comments: Follow-up [[id number]] - Seen George Loza 08/10/2023 [facility] Office Visiton 08-10-2023 Follow-up visit [id number] Lane Lacey zonia Mcintosh 1960 [facility] Provider Department [place] 08/10/2023 271-GEORGE LOZA [facility] Family History Problem Relation Age of Onset Cancer Mother Diabetes Mother Coronary artery disease Father Stroke Father Cancer Father Family Status - Relation Status Age at Mother Father Level of Service:81942 UT OFFICE/OUTPATIENT ESTABLISHED MOD MDM 30-39 MIN Normal [facility] Orders Onlyon 08-10-2023 Orders Only [id number] AbhijitLane Mcintosh 1960 Date Provider Department [place] 08/10/2023 NEO TAYLOR MAXWELL [facility] Family History Problem Relation Age of Onset Cancer Mother Diabetes Mother Coronary artery disease Father Stroke Father Cancer Father Family Status - Relation Status Age at Mother Father [facility] HPon 07-11-2023 HP H&P reviewed. The patient was examined and there are no changes to the H&P. George Loza MD, MPH, FACC, [facility] Interventional Cardiology Pager Email: [email or web address] .[facility] NURSNOTEon 07-11-2023 NURSNOTE Pt performed and passed bedside swallow study. RN educated pt on d/c instructions. RN encouraged pt to voice any questions or concerns. Pt verbalizes no questions or concerns at this time. Pt was wheeled off of unit with all of belongings. [facility] NURSNOTE Pre certification no t yet gone through, per Dr. Loza he will ensure the bill is taken care of. [facility] Orders Onlyon 07-11-2023 Orders Only [id number] AbhijitLane Mcintosh 1960 Date Provider Department [place] 07/11/2023 6143-WILLIAM PIZANO [facility] INF Stephanie Heal Family History Problem Relation Age of Onset Cancer Mother Diabetes Mother Coronary artery disease Father Stroke Father Cancer Father Family Status - Relation Status Age at Mother Father [facility] Telephoneon 07-10-[id number] Lacey 1960 Date Provider Department [place] 07/10/2023 [facility] [place] [facility] Family History Problem Relation Age of Onset Cancer Mother Diabetes Mother Coronary artery disease Father Stroke Father Cancer Father Family Status - Relation Status Age at Mother Father [facility] Letter (Out)on 07-05-2023 Letter (Out) [id number] Lane Lacey 1960 M Date Provider Department Center 07/05/2023 None-None [facility] [place] [facility] Family History Problem Relation Age of Onset Cancer Mother Diabetes Mother Coronary artery disease Father Stroke Father Cancer Father Family Status - Relation Status Age at Mother Father [facility] 36on 07-03-2023 36 Patient's cornejo mallory stating Dr. Peck stopped lasix after lab results today (in remediation consultant for your review). also wants to [...] to check on status of cath. Thanks. [facility] HP 06-28-2023 [facility] Cardiology Clinic Note Chief Complaint: Patient here to re-establish care for PAF. Was last seen in [address] Peck. Had echo and ECG yesterday. states they recently returned home from [place]. While they were there, he had intermittent SOB with very swollen ankles. 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 Feeling chest pressure. He is in the process of getting a cpap machine for NANCY. HPI: ODILON Lacey is a 63 y.o. male known to me from prior office visits and his - Nitza Addison who works at [employer]. He has a known h/o PAF in the past ([id number]) thought to be related to thyroid issues [...] ST-T wave changes Assessment: Paroxysmal atrial fibrillation, [id number] score of 2-3 Chest pain - unstable [...] our elect (more content not included)... Normal [facility] Office Visiton 06-28-2023 Follow-up visit [id number] Lane Lacey 1960 [facility] Provider Department Center 06/28/2023 GEORGE PALENCIA Family History Problem Relation Age of Onset Cancer Mother Diabetes Mother Coronary artery disease Father Stroke Father Cancer Father Family Status - Relation Status Age at Mother Father Level of Service:02701 UT OFFICE[facility]PATIENT [facility] 60-74 MINUTES Normal [facility] Orders Onlyon 06-28-[id number] Lacey 1960 [facility] Provider Department Center 06/28/2023 NEO TAYLOR Family History Problem Relation Age of Onset Cancer Mother Diabetes Mother Coronary artery disease Father Stroke Father Cancer Father Family Status - Relation Status Age at Mother Father Normal [facility] Patient Educationon 06-12-20 Patient Education [...] Follow these instructions at home: ? Take [id number]-rracnmq and prescription medicines only as told by [...] 05/13/2021 Document (more content not included)... Normal [facility] Urology Office/Clinic Noteon 06-12-2023 Urology Office/Clinic [...] 6 months [facility] [address] [place] [address] [phone] Additional Instructions: w/Testosterone Level, PSA and CBC [...] tamsulosin 0.4 m (more content not included)... [facility] Comment on above: Result Comment: Elec tronically Signed By: Vianey SILVERMAN MD\.br\Date and Time Signed: 06/12/23 13:23 EDT\.br\Electronically Co-Signed By: Megan Brunson\.br\Date and Time Co-Signed: 06/12/23 13:20 EDT Lab Reportson 05-22-2023 Lab Reports [id number] [facility] CNOVon 04-26-2023 CNOV Office Visit (SPMESH ) CORINNEVIANEY AGUILERA ([id number]) 1960 M Date Time Provider Department 04/26/23 11:00 AM [facility] During your visit today, we recorded the [...] Cervical disc disease CVA (cerebral vascular accident) ([facility]) due to head trauma [...] palpable masses (more content not included)... Normal [facility] TESTOSTERONE, TOTALon 2022 Testosterone [Mass/Vol] 347 ng/dL Normal 264-916 [facility] Comment on above: Result Comment: Adul t male reference interval is based on a population of healthy nonobese males (BMI <30) between 19 and 39 years old. stephania Salinas.al. JCEM 2017,102;0996-1211. PMID: [id number]. Performed By: #### T ESTTOT #### [facility] [address] [address] [address] Reuben oMrrison XR TSPINE 3 VIEWSon 11-18-19 23 XR [...] ALFREDITO LOAIZA Date: 2022-11-18 16:11 Normal [facility] TESTOSTERONE, TOTALon 2022 Testosterone [Mass/Vol] 993 ng/dL Critically high 264-916 [facility] Comment on above: Result Comment: Adul t male reference interval is based on a population of healthy nonobese males (BMI <30) between 19 and 39 years old. Brad, et.al. JCEM 2017,102;7617-5531. PMID: [id number]. Performed By: #### T ESTTOT #### [facility] [address] [address] [address] Reuben Morrison CBC AUTO DIFFon 06-15-2022 BASO # 0.0 103/ul Normal 0.0-0.[address] [facility] Comment on above: Performed By: #### C BC #### [facility] [address] [address] [address] Reuben Morrison Basophils/100 WBC (Bld) 0.4 % Normal 0.2-2.[address] [facility] Comment on above: Performed By: #### C BC #### [facility] [address] [place] [address] Dr. Reuben Morrison EO # 0.1 103/ul Normal 0.0-0.[address] [facility] Comment on above: Performed By: #### C BC #### [facility] [address] [place] [address] Dr. Reuben Morrison Eosinophils/100 WBC (Bld) 1.3 % Normal 0.9-7.[address] [facility] Comment on above: Performed By: #### C BC #### [facility] [address] [place] [address] Dr. Reuben Morrison Erythrocyte distribution width (RBC) [Ratio] 14.3 % Normal 11.0-15.[address] [facility] Comment on above: Performed By: #### C BC #### [facility] [address] [place] [address] Dr. Reuben Morrison Hematocrit (Bld) [Volume fraction] 48.9 % Normal 42.0-54.[address] [facility] Comment on above: Performed By: #### C BC #### [facility] [address] [place] [address] Dr. Reuben Morrison Hemoglobin (Bld) [Mass/Vol] 16.6 g/dL Normal 14.0-18.[address] [facility] Comment on above: Performed By: #### C BC #### [facility] [address] [place] [address] Dr. Reuben Morrison IG # 0.01 10e3/ul Normal 0.00-0.03 [facility] Comment on above: Performed By: #### C BC #### [facility] [address] [place] [address] Dr. Reuben Morrison IG % 0.2 % Normal 0.0-0.5 [facility] Comment on above: Performed By: #### C BC #### [facility] [address] [place] [address] Dr. Reuben Morrison LYMPH # 1.1 103/ul Critically low 1.2-3.[address] [facility] Comment on above: Performed By: #### C BC #### [facility] [address] [place] [address] Dr. Reuben Morrison Lymphocytes/100 WBC (Bld) 24.3 % Normal 20.5-60.0 [facility] Comment on above: Performed By: #### C BC #### [facility] [address] [place] [address] Dr. Reuben Morrison MANUAL DIFF REQ NO Normal [facility] Comment on above: Performed By: #### C BC #### [facility] [address] [place] [address] Dr. Reuben Morrison MCH (RBC) [Entitic mass] 29.5 pg Normal 25.9-34.0 [facility] Comment on above: Performed By: #### C BC #### [facility] [address] [place] [address] Dr. Reuben Morrison MCHC (RBC) [Mass/Vol] 33.9 g/dL Normal 29.9-35.2 [facility] Comment on above: Performed By: #### C BC #### [facility] [address] [place] [address] Dr. Reuben Morrison MCV (RBC) [Entitic vol] 86.9 fL Normal 80.0-94.0 [facility] Comment on above: Performed By: #### C BC #### [facility] [address] [place] [address] Dr. Reuben Morrison MONO # 0.5 103/ul Normal 0.3-0.8 [facility] Comment on above: Performed By: #### C BC #### [facility] [address] [place] [address] Dr. Reuben Morrison Monocytes/100 WBC (Bld) 9.6 % Normal 1.7-12.0 [facility] Comment on above: Performed By: #### C BC #### [facility] [address] [place] [address] Dr. Reuben Morrison NEUT # 3.0 103/ul Normal 1.4-6.5 [facility] Comment on above: Performed By: #### C BC #### [facility] [address] [address] [address] Reuben Morrison Neutrophils/100 WBC (Bld) 64.2 % Normal 43.0-75.[address] [facility] Comment on above: Performed By: #### C BC #### [facility] [address] [address] [address] Reuben Morrison Platelet mean volume (Bld) [Entitic vol] 9.7 fL Normal 9.5-13.5 [facility] Comment on above: Performed By: #### C BC #### [facility] [address] [address] [address] Reuben Morrison PLT 130 103/ul Critically low 150-[address] [facility] Comment on above: Result Comment: plts . appear slightly decreased Performed By: #### C BC #### [facility] [address] [place] [address] Dr. Reuben Morrison RBC 5.63 106/ul Normal 4.70-6.10 [facility] Comment on above: Performed By: #### C BC #### [facility] [address] [place] [address] Dr. Reuben Morrison WBC 4.7 103/ul Normal 4.0-11.0 [facility] Comment on above: Performed By: #### C BC #### [facility] [address] [place] [address] Dr. Reuben Morrison TESTOSTERONE, TOTALon 2021 Testosterone [Mass/Vol] 404 ng/dL Normal 264-916 [facility] Comment on above: Result Comment: Adul t male reference interval is based on a population of healthy nonobese males (BMI <30) between 19 and 39 years old. Brad et.al. JCEM 2017,102;8272-9727. PMID: [id number]. Performed By: #### T ESTTOT #### [facility] [address] [place] [address] Dr. Reuben Morrison CBC AUTO DIFFon 04-27-2022 BASO # 0.0 103/ul Normal 0.0-0.1 [facility] Comment on above: Performed By: #### T ESTTOT #### [facility] [address] [place] [address] Dr. Reuben Morrison Basophils/100 WBC (Bld) 1.0 % Normal 0.2-2.0 [facility] Comment on above: Performed By: #### T ESTTOT #### [facility] [address] [place] [address] Dr. Reuben Morrison EO # 0.1 103/ul Normal 0.0-0.7 [facility] Comment on above: Performed By: #### T ESTTOT #### [facility] [address] [place] [address] Dr. Reuben Morrison Eosinophils/100 WBC (Bld) 1.8 % Normal 0.9-7.0 [facility] Comment on above: Performed By: #### T ESTTOT #### [facility] [address] [place] [address] Dr. Reuben Morrison Erythrocyte distribution width (RBC) [Ratio] 14.0 % Normal 11.0-15.[address] [facility] Comment on above: Performed By: #### T ESTTOT #### [facility] [address] [place] [address] Dr. Reuben Morrison Hematocrit (Bld) [Volume fraction] 47.3 % Normal 42.0-54.[address] [facility] Comment on above: Performed By: #### T ESTTOT #### [facility] [address] [place] [address] Dr. Reuben Morrison Hemoglobin (Bld) [Mass/Vol] 16.2 g/dL Normal 14.0-18.0 [facility] Comment on above: Performed By: #### T ESTTOT #### [facility] [address] [place] [address] Dr. Reuben Morrison IG # 0.01 10e3/ul Normal 0.00-0.03 [facility] Comment on above: Performed By: #### T ESTTOT #### [facility] [address] [place] [address] Dr. Reuben Morrison IG % 0.3 % Normal 0.0-0.5 [facility] Comment on above: Performed By: #### T ESTTOT #### [facility] [address] [address] [address] Reuben Morrison LYMPH # 1.1 103/ul Critically low 1.2-3.8 [facility] Comment on above: Performed By: #### T ESTTOT #### [facility] [address] [address] [address] Reuben Morrison Lymphocytes/100 WBC (Bld) 26.6 % Normal 20.5-60.[address] [facility] Comment on above: Performed By: #### T ESTTOT #### [facility] [address] [address] [address] Reuben Morrison MANUAL DIFF REQ NO Normal [facility] Comment on above: Performed By: #### T ESTTOT #### [facility] [address] [place] [address] Dr. Reuben Morrison MCH (RBC) [Entitic mass] 29.5 pg Normal 25.9-34.[address] [facility] Comment on above: Performed By: #### T ESTTOT #### [facility] [address] [place] [address] Dr. Reuben Morrison MCHC (RBC) [Mass/Vol] 34.2 g/dL Normal 29.9-35.[address] [facility] Comment on above: Performed By: #### T ESTTOT #### [facility] [address] [place] [address] Dr. Reuben Morrison MCV (RBC) [Entitic vol] 86.2 fL Normal 80.0-94.[address] [facility] Comment on above: Performed By: #### T ESTTOT #### [facility] [address] [address] [address] Reuben Morrison MONO # 0.4 103/ul Normal 0.3-0.[address] [facility] Comment on above: Performed By: #### T ESTTOT #### [facility] [address] [place] [address] Dr. Reuben Morrison Monocytes/100 WBC (Bld) 9.0 % Normal 1.7-12.[address] [facility] Comment on above: Performed By: #### T ESTTOT #### [facility] [address] [address] [address] Reuben Morrison NEUT # 2.5 103/ul Normal 1.4-6.5 [facility] Comment on above: Performed By: #### T ESTTOT #### [facility] [address] [address] [address] Reuben Morrison Neutrophils/100 WBC (Bld) 61.3 % Normal 43.0-75.[address] [facility] Comment on above: Performed By: #### T ESTTOT #### [facility] [address] [address] [address] Reuben Morrison Platelet mean volume (Bld) [Entitic vol] 9.6 fL Normal 9.5-13.[address] [facility] Comment on above: Performed By: #### T ESTTOT #### [facility] [address] [address] [address] Reuben Morrison PLT 128 103/ul Critically low 150-450 [facility] Comment on above: Performed By: #### T ESTTOT #### [facility] [address] [address] [address] Reuben Morrison RBC 5.49 106/ul Normal 4.70-6.10 [facility] Comment on above: Performed By: #### T ESTTOT #### [facility] [address] [address] [address] Reuben Morrison WBC 4.0 103/ul Normal 4.0-11.0 [facility] Comment on above: Performed By: #### T ESTTOT #### [facility] [address] [address] [address] Reuben Morrison INSULINon 03-08-2022 Insulin 4.3 uIU/mL Normal 2.6-24.9 [facility] Comment on above: Performed By: #### T ESTTOT #### [facility] [address] [address] [address] Reuben Morrison TESTOSTERONE, TOTALon 2021 Testosterone [Mass/Vol] ng/dL Critically high 264-[address] [facility] Comment on above: Result Comment: Adul t male reference interval is based on a population of healthy nonobese males (BMI <30) between 19 and 39 years old. stephania Salinas.al. JCEM 2017,102;5782-0104. PMID: [id number]. Performed By: #### T ESTTOT #### [facility] [address] [place] [address] Dr. Reuben Morrison CBC AUTO DIFFon 03-07-2022 BASO # 0.1 103/ul Normal 0.0-0.[address] [facility] Comment on above: Performed By: #### C BC #### [facility] [address] [place] [address] Dr. Reuben Morrison Basophils/100 WBC (Bld) 1.4 % Normal 0.2-2.[address] [facility] Comment on above: Performed By: #### C BC #### [facility] [address] [place] [address] Dr. Reuben Morrison EO # 0.1 103/ul Normal 0.0-0.[address] [facility] Comment on above: Performed By: #### C BC #### [facility] [address] [place] [address] Dr. Reuben Morrison Eosinophils/100 WBC (Bld) 1.4 % Normal 0.9-7.[address] [facility] Comment on above: Performed By: #### C BC #### [facility] [address] [place] [address] Dr. Reuben Morrison Erythrocyte distribution width (RBC) [Ratio] 14.7 % Normal 11.0-15.[address] [facility] Comment on above: Performed By: #### C BC #### [facility] [address] [place] [address] Dr. Reuben Morrison Hematocrit (Bld) [Volume fraction] 49.8 % Normal 42.0-54.[address] [facility] Comment on above: Performed By: #### C BC #### [facility] [address] [place] [address] Dr. Reuben Morrison Hemoglobin (Bld) [Mass/Vol] 16.4 g/dL Normal 14.0-18.[address] [facility] Comment on above: Performed By: #### C BC #### [facility] [address] [place] [address] Dr. Reuben Morirson IG # 0.01 10e3/ul Normal 0.00-0.[address] [facility] Comment on above: Performed By: #### C BC #### [facility] [address] [place] [address] Dr. Reuben Morrison IG % 0.3 % Normal 0.0-0.[address] [facility] Comment on above: Performed By: #### C BC #### [facility] [address] [place] [address] Dr. Reuben Morrison LYMPH # 0.9 103/ul Critically low 1.2-3.8 [facility] Comment on above: Performed By: #### C BC #### [facility] [address] [place] [address] Dr. Reuben Morrison Lymphocytes/100 WBC (Bld) 24.7 % Normal 20.5-60.[address] [facility] Comment on above: Performed By: #### C BC #### [facility] [address] [place] [address] Dr. Reuben Morrison MANUAL DIFF REQ NO Normal [facility] Comment on above: Performed By: #### C BC #### [facility] [address] [place] [address] Dr. Reuben Morrison MCH (RBC) [Entitic mass] 28.9 pg Normal 25.9-34.[address] [facility] Comment on above: Performed By: #### C BC #### [facility] [address] [place] [address] Dr. Reuben Morrison MCHC (RBC) [Mass/Vol] 32.9 g/dL Normal 29.9-35.[address] [facility] Comment on above: Performed By: #### C BC #### [facility] [address] [place] [address] Dr. Reuben Morrison MCV (RBC) [Entitic vol] 87.7 fL Normal 80.0-94.0 [facility] Comment on above: Performed By: #### C BC #### [facility] [address] [address] [address] Reuben Morrison MONO # 0.4 103/ul Normal 0.3-0.[address] [facility] Comment on above: Performed By: #### C BC #### [facility] [address] [address] [address] Reuben Morrison Monocytes/100 WBC (Bld) 9.5 % Normal 1.7-12.[address] [facility] Comment on above: Performed By: #### C BC #### [facility] [address] [place] [address] Dr. Reuben Morrison NEUT # 2.3 103/ul Normal 1.4-6.[address] [facility] Comment on above: Performed By: #### C BC #### [facility] [address] [place] [address] Dr. Reuben Morrison Neutrophils/100 WBC (Bld) 62.7 % Normal 43.0-75.[address] [facility] Comment on above: Performed By: #### C BC #### [facility] [address] [place] [address] Dr. Reuben Morrison Platelet mean volume (Bld) [Entitic vol] 9.8 fL Normal 9.5-13.[address] [facility] Comment on above: Performed By: #### C BC #### [facility] [address] [place] [address] Dr. Reuben Morrison PLT 149 103/ul Critically low 150-[address] [facility] Comment on above: Performed By: #### C BC #### [facility] [address] [place] [address] Dr. Reuben Morrison RBC 5.68 106/ul Normal 4.70-6.10 [facility] Comment on above: Performed By: #### C BC #### [facility] [address] [place] [address] Dr. Reuben Morrison WBC 3.7 103/ul Critically low 4.0-11.[address] [facility] Comment on above: Performed By: #### C BC #### [facility] [address] [address] [address] Reuben Morrison FREE THYROXINE INDEX T7on FTI 2.50 Normal 1.30-4.[address] [facility] Comment on above: Performed By: #### C MP, T7, TSH, LIPID #### [facility] [address] [place] [address] Dr. Reuben Morrison T3U 39.0 % Normal 33.0-40.[address] [facility] Comment on above: Performed By: #### C MP, T7, TSH, LIPID #### [facility] [address] [place] [address] Dr. Reuben Morrison T4 [Mass/Vol] 6.40 ug/dL Normal 4.50-12.10 [facility] Comment on above: Performed By: #### C MP, T7, TSH, LIPID #### [facility] [address] [place] [address] Dr. Reuben Morriosn GLYCOHEMOGLOBIN A1Con 2021 ADA RECOMMENDATION SEE BELOW Normal [facility] Comment on above: Result Comment: ADA RECOMMENDED LIMIT 4.0 - 6.0 ADA THERAPEUTIC TARGET < 7.0 ACTION SUGGESTED > 7.0 Performed By: #### T ESTTOT #### [facility] [address] [place] [address] Dr. Reuben Morrison Glucose [Mass/Vol] 105 mg/dL Normal [facility] Comment on above: Performed By: #### T ESTTOT #### [facility] [address] [place] [address] Dr. Reuben Morrison HbA1c (Bld) [Mass fraction] 5.3 % Normal 4.5-6.[address] [facility] Comment on above: Performed By: #### T ESTTOT #### [facility] [address] [place] [address] Dr. Reuben Morrison IRONon 03-07-2022 Iron [Mass/Vol] 100.0 ug/dL Normal 65.0-175.0 [facility] Comment on above: Performed By: #### I BLAIR, PSASC, VITB12, VITAD #### [facility] [address] [address] [address] Reuben Morrison LIPID PROFILEon 03-07-2022 CHOL-HDL RATIO NORM SEE BELOW Normal [facility] Comment on above: Result Comment: 3.3 - 4.4 LOW RISK 4.4 - 7.1 AVERAGE RISK 7.1 - 11.0 MODERATE RISK >11.0 HIGH RISK Performed By: #### C MP, T7, TSH, LIPID #### [facility] [address] [address] [address] Reuben Morrison Cholesterol [Mass/Vol] 157 mg/dL Normal <=[address] [facility] Comment on above: Performed By: #### C MP, T7, TSH, LIPID #### [facility] [address] [address] [address] Reuben Morrison Cholesterol in HDL [Mass/Vol] 48 mg/dL Normal 40-[address] [facility] Comment on above: Performed By: #### C MP, T7, TSH, LIPID #### [facility] [address] [address] [address] Reuben Morrison Cholesterol in LDL [Mass/Vol] 96.0 mg/dL Normal [facility] Comment on above: Performed By: #### C MP, T7, TSH, LIPID #### [facility] [address] [address] [address] Reuben Morrison Cholesterol.total/C holesterol in HDL [Mass ratio] 3.3 {ratio} Normal [facility] Comment on above: Performed By: #### C MP, T7, TSH, LIPID #### [facility] [address] [address] [address] Reuben Morrison HDL NORMAL > or = 60 mg/dl - LO W CARDIOVASCULAR RISK <40 mg/dl - HIGH CARDIOVASCULAR RISK Normal [facility] Comment on above: Performed By: #### C MP, T7, TSH, LIPID #### [facility] [address] [address] [address] Reuben Morrison LDL CALC NORMAL SEE BELOW Normal [facility] Comment on above: Result Comment: <100 mg/dl OPTIMAL 100 - 129 mg/dl NEAR OR ABOVE OPTIMAL 130 - 159 mg/dl BORDERLINE HIGH 160 - 189 mg/dl HIGH >190 mg/dl VERY HIGH Performed By: #### C MP, T7, TSH, LIPID #### [facility] [address] [place] [address] Dr. Reuben Morrison Triglyceride [Mass/Vol] 65 mg/dL Normal <=[address] [facility] Comment on above: Performed By: #### C MP, T7, TSH, LIPID #### [facility] [address] [address] [address] Reuben Morrison VLDL CALC 13.0 mg/dL Normal [facility] Comment on above: Performed By: #### C MP, T7, TSH, LIPID #### [facility] [address] [place] [address] Dr. Reuben Morrison PROF 14(COMP METB)on 022 Albumin [Mass/Vol] 3.7 g/dL Normal 3.4-5.0 [facility] Comment on above: Performed By: #### C MP, T7, TSH, LIPID #### [facility] [address] [place] [address] Dr. Reuben Morrison Albumin/Globulin [Mass ratio] 1.3 {ratio} Normal [facility] Comment on above: Performed By: #### C MP, T7, TSH, LIPID #### [facility] [address] [place] [address] Dr. Reuben Morrison ALP [Catalytic activity/Vol] 53 U/L Normal 46-116 [facility] Comment on above: Performed By: #### C MP, T7, TSH, LIPID #### [facility] [address] [place] [address] Dr. Reuben Morrison ALT [Catalytic activity/Vol] 37 U/L Normal 16-[address] [facility] Comment on above: Performed By: #### C MP, T7, TSH, LIPID #### [facility] [address] [place] [address] Dr. Reuben Morrison Anion gap [Moles/Vol] 11.0 mmol/L Normal [facility] Comment on above: Performed By: #### C MP, T7, TSH, LIPID #### [facility] [address] [address] [address] Reuben Morrison AST [Catalytic activity/Vol] 28 U/L Normal 15-[address] [facility] Comment on above: Performed By: #### C MP, T7, TSH, LIPID #### [facility] [address] [address] [address] Reuben Morrison Bilirubin [Mass/Vol] 0.9 mg/dL Normal 0.2-1.[address] [facility] Comment on above: Performed By: #### C MP, T7, TSH, LIPID #### [facility] [address] [address] [address] Reuben Morrison Calcium [Mass/Vol] 8.9 mg/dL Normal 8.5-10.1 [facility] Comment on above: Performed By: #### C MP, T7, TSH, LIPID #### [facility] [address] [address] [address] Reuben Morrison Chloride [Moles/Vol] 106 mmol/L Normal 98-107 [facility] Comment on above: Performed By: #### C MP, T7, TSH, LIPID #### [facility] [address] [address] [address] Reuben Morrison CO2 [Moles/Vol] 28.2 mmol/L Normal 21.0-32.0 [facility] Comment on above: Performed By: #### C MP, T7, TSH, LIPID #### [facility] [address] [address] [address] Reuben Morrison Creatinine [Mass/Vol] 1.55 mg/dL Critically high 0.70-1.[address] [facility] Comment on above: Performed By: #### C MP, T7, TSH, LIPID #### [facility] [address] [address] [address] Reuben Morrison EGFR-AF EMIRATI 55 mL/min/1.73m2 Critically low >=[address] [facility] Comment on above: Performed By: #### C MP, T7, TSH, LIPID #### [facility] [address] [address] [address] Reuben Morrison EGFR-NON AF EMIRATI 46 mL/min/1.73m2 Critically low >=60 The [facility] Comment on above: Performed By: #### C MP, T7, TSH, LIPID #### [facility] [address] [address] [address] Reuben Morrison Globulin (S) [Mass/Vol] 2.9 g/dL Normal [facility] Comment on above: Performed By: #### C MP, T7, TSH, LIPID #### [facility] [address] [address] [address] Reuben Morrison Glucose [Mass/Vol] 88 mg/dL Normal 74-106 [facility] Comment on above: Performed By: #### C MP, T7, TSH, LIPID #### [facility] [address] [address] [address] Reuben Morrison Potassium [Moles/Vol] 4.2 mmol/L Normal 3.5-5.1 [facility] Comment on above: Performed By: #### C MP, T7, TSH, LIPID #### [facility] [address] [place] [address] Dr. Reuben Morrison Protein [Mass/Vol] 6.6 g/dL Normal 6.4-8.2 [facility] Comment on above: Performed By: #### C MP, T7, TSH, LIPID #### [facility] [address] [place] [address] Dr. Reuben Morrison Sodium [Moles/Vol] 141 mmol/L Normal 136-145 [facility] Comment on above: Performed By: #### C MP, T7, TSH, LIPID #### [facility] [address] [address] [address] Reuben Morrison Urea nitrogen [Mass/Vol] 13.0 mg/dL Normal 7.0-18.0 [facility] Comment on above: Performed By: #### C MP, T7, TSH, LIPID #### [facility] [address] [address] [address] Reuben Morrison Urea nitrogen/Creatinine [Mass ratio] 8.4 mg/mg Normal [facility] Comment on above: Performed By: #### C MP, T7, TSH, LIPID #### [facility] [address] [address] [address] Reuben Morrison TSHon 03-07-2022 TSH 0.091 uIU/mL Critically low 0.358-3.740 [facility] Comment on above: Performed By: #### C MP, T7, TSH, LIPID #### [facility] [address] [address] [address] Reuben Morrison TSH RANGE SEE BELOW Normal [facility] Comment on above: Result Comment: <0.3 4 UIU/ml HYPERTHYROID 0.34-5.60 UIU/ml EUTHYROID >5.60 UIU/ml HYPOTHYROID Performed By: #### C MP, T7, TSH, LIPID #### [facility] [address] [place] [address] Dr. Reuben Morrison VITAMIN B12on 03-07-2022 Cobalamin (Vitamin B12) [Mass/Vol] 3126.0 pg/mL Critically high 193.0-986.[address] [facility] Comment on above: Performed By: #### T ESTTOT #### [facility] [address] [place] [address] Dr. Reuben Morrisno VITAMIN D 25 OHon 03-07-2022 VIT D 25-OH 90.4 ng/mL Normal [facility] Comment on above: Performed By: #### T ESTTOT #### [facility] [address] [place] [address] Dr. Reuben Morrison VIT D RANGES SEE BELOW Normal [facility] Comment on above: Result Comment: <20 ng/mL Vit D deficient 20 - <30 ng/mL Vit D insufficient 30 - 100 ng/mL Vit D sufficient >100 ng/mL Potential Toxicity Performed By: #### T ESTTOT #### [facility] [address] [place] [address] Dr. Reuben Morrison XR SHOULDER RICHARD 2V [...] by: ERIN HANSEN Date: 2022-03-07 16:[address] [facility] Vital Signs Date Time Vital Sign Value Performing Clinician Facility 05-07-2024 15:01-0400 Blood Pressure Location Shawanda MEJIA [facility] 05-07-2024 15:01-0400 Diastolic blood pressure 84 mm[Hg] Shawanda MEJIA [facility] 05-07-2024 15:01-0400 Heart rate 68 /min Shawanda MEJIA [facility] 05-07-2024 15:01-0400 Respiratory rate 16 /min Shawanda ROBERTO [facility] 05-07-2024 15:01-0400 Systolic blood pressure 118 mm[Hg] Shawanda MEJIA [facility] 11-02-2023 10:48-0500 Body height 170.2 cm Osmin Anthony MD Work Phone: [facility] 11-02-2023 10:48-0500 Body mass index (BMI) [Ratio] 29.29 kg/m2 Osmin Anthony MD Work Phone: [facility] 11-02-2023 10:48-0500 Body weight 84.82 kg Osmin Anthony MD Work Phone: [facility] 10-16-2023 13:03-0500 Blood Pressure Location Vianey SILVERMAN [facility] 10-16-2023 13:03-0500 Diastolic blood pressure 82 mm[Hg] Vianey SILVERMAN [facility] 10-16-2023 13:03-0500 Heart rate 75 /min Vianey SILVERMAN [facility] 10-16-2023 13:03-0500 Respiratory rate 16 /min Vianey SILVERMAN [facility] 10-16-2023 13:03-0500 Systolic blood pressure 131 mm[Hg] Vianey SILVERMAN [facility] 07-27-2023 10:00-0400 Body height 168.91 cm Sandoval Antonia Other [facility] Other 07-27-2023 10:00-0400 Body mass index (BMI) [Ratio] 28.55 kg/m2 Sandoval Antonia Other [facility] Other 07-27-2023 10:00-0400 Body temperature 96.2 [degF] Sandoval Antonia Other [facility] Other 07-27-2023 10:00-0400 Body weight 81.47 kg Sandoval Antonia Other [facility] Other 07-27-2023 10:00-0400 Diastolic blood pressure 87 mm[Hg] Sandoval Antonia Other [facility] Other 07-27-2023 10:00-0400 Respiratory rate 16 /min Sandoval Antonia Other [facility] Other 07-27-2023 10:00-0400 SaO2% (BldA) [Mass fraction] 94 % Sandoval Antonia Other [facility] Other 07-27-2023 10:00-0400 Systolic blood pressure 130 mm[Hg] Sandoval Natonia Other [facility] Other 06-12-2023 12:25-0400 Blood Pressure Location Vianey SILVERMAN [facility] 06-12-2023 12:25-0400 Diastolic blood pressure 74 mm[Hg] Vianey SILVERMAN [facility] 06-12-2023 12:25-0400 Heart rate 68 /min Vianey SILVERMAN [facility] 06-12-2023 12:25-0400 Respiratory rate 16 /min Vianey SILVERMAN [facility] 06-12-2023 12:25-0400 Systolic blood pressure 128 mm[Hg] Vianey SILVERMAN [facility] 04-26-2023 11:15-0400 Body height 168.4 cm Shawanda Hernandez PA-C Work Phone: [facility] 04-26-2023 11:15-0400 Body temperature 98.01 [degF] Shawanda Hernandez PA-C Work Phone: [facility] 04-26-2023 11:15-0400 Body weight 86.95 kg Shawanda Hernandez PA-C Work Phone: [facility] 04-26-2023 11:15-0400 Diastolic blood pressure 94 mm[Hg] Shawanda Hernandez PA-C Work Phone: [facility] 04-26-2023 11:15-0400 Heart rate 74 /min Shawanda Hernandez PA-C Work Phone: [facility] 04-26-2023 11:15-0400 SaO2% (BldA) [Mass fraction] 97 % Shawanda Hernandez PA-C Work Phone: [facility] 04-26-2023 11:15-0400 Systolic blood pressure 147 mm[Hg] Shawanda Hernandez PA-C Work Phone: [facility] 12-02-2022 08:12-0500 Blood Pressure Location Vianey SILVERMAN [facility] 12-02-2022 08:12-0500 Diastolic blood pressure 84 mm[Hg] Vianey SILVERMAN [facility] 12-02-2022 08:12-0500 Heart rate 70 /min Vianey SILVERMAN [facility] 12-02-2022 08:12-0500 Respiratory rate 16 /min Vianeyzayra SILVERMAN [facility] 12-02-2022 08:12-0500 Systolic blood pressure 137 mm[Hg] Vianeyzayra SILVERMAN [facility] 07-20-2022 14:11-0400 Body mass index (BMI) [Ratio] 28.98 kg/m2 Jovita Virk MD Work Phone: [facility] 07-20-2022 14:11-0400 Body temperature 98.01 [degF] Jovita Virk MD Work Phone: [facility] 07-20-2022 14:11-0400 Body weight 83.92 kg Jovita Virk MD Work Phone: [facility] 07-20-2022 14:11-0400 Diastolic blood pressure 86 mm[Hg] [email or web address] 07-20-2022 14:11-0400 Heart rate 98 /min Jovita Virk MD Work Phone: [employer] 07-20-2022 14:11-0400 Respiratory rate 14 /min Jovita Virk MD Work Phone: [email or web address] 07-20-2022 14:11-0400 SaO2% (BldA) [Mass fraction] 100 % Jovita Virk MD Work Phone: [email or web address] 07-20-2022 14:11-0400 Systolic blood pressure 138 mm[Hg] Jovita Virk MD Work Phone: [email or web address] Encounters Encounter Date Encounter Type Care Provider Facility Start: 10-21-2024 ambulatory Vianey Velazquez ty:[facility] Start: 05-07-2024 End: 05-07-2024 ambulatory Shawanda MEJIA Facility: [facility] Start: 05-07-2024 End: 05-07-2024 Patient encounter procedure Shawanda MEJIA [facility] Start: 05-06-2024 ambulatory Taylor Tres Facility:[facility] Start: 04-05-2024 End: 04-05-2024 ambulatory MD Ilda Peck Work Phone: [facility] Work Phone: Start: 04-05-2024 End: 04-05-2024 Departed Referred MD Ilda Peck Work Phone: [facility] Start: 02-07-2024 End: 02-07-2024 ambulatory EHAB NATALIIA [facility] Start: 12-26-2023 End: 12-26-2023 ambulatory JEOVANNY SCOTT [facility] Start: 11-27-2023 ambulatory Vianey Velazquez ty:[facility] Start: 11-17-2023 Evaluation and management of inpatient GISSELL CHRISTIANSON [facility] Start: 11-17-2023 Evaluation and management of inpatient [facility] Start: 11-16-2023 Evaluation and management of inpatient [facility] Start: 11-16-2023 ambulatory [facility] Start: 11-16-2023 ambulatory [facility] Start: 11-16-2023 End: 11-17-2023 Evaluation and management of inpatient [facility] Start: 11-02-2023 End: 11-02-[address] [facility] Start: 11-02-2023 End: 11-02-2023 Patient encounter procedure Osmin Anthony MD Work Phone: [facility] Comment on above: Primary osteoarthrit is of right knee (Primary Dx) Start: 10-30-2023 End: 10-30-2023 ambulatory DEMETRA [facility] Start: 10-16-2023 End: 10-16-2023 ambulatory Vianey SILVERMAN Facility:[facility] Start: 10-16-2023 End: 10-16-2023 Patient encounter procedure Vianey SILVERMAN [facility] Start: 09-08-2023 End: 09-08-2023 ambulatory [facility] Start: 08-10-2023 End: 08-10-2023 ambulatory [facility] Start: 07-27-2023 End: 07-27-2023 ambulatory Sandoval Knight Other [facility] Other Start: 07-27-2023 Office outpatient ne w 45 minutes Sandoval Antonia [facility] Start: 07-11-2023 ambulatory [facility] Start: 07-11-2023 End: 07-11-2023 ambulatory [facility] Start: 07-10-2023 ambulatory Vianey SILVERMAN [facility] Start: 06-28-2023 End: 06-28-2023 ambulatory EHAB [facility] Start: 06-12-2023 End: 06-12-2023 ambulatory Vianey SILVERMAN Facility:[facility] Start: 06-12-2023 End: 06-12-2023 Patient encounter procedure Vianey SILVERMAN [facility] Start: 05-30-2023 ambulatory Taylor Joshua Facility:[facility] Start: 05-03-2023 End: 05-03-2023 Patient encounter procedure Taylor Joshua [facility] Start: 04-26-2023 End: 04-26-2023 ambulatory ILDA PECK Facility:[facility] Start: 04-26-2023 End: 04-26-2023 Patient encounter procedure Shawanda Hernandez PA-C Work Phone: [facility] Comment on above: Height loss (Primary Dx) Start: 03-08-2023 End: 03-08-2023 Patient encounter procedure KYLE RODRIGUEZ [facility] Start: 01-20-2023 End: 01-21-[address] ILDA PECK . Facility:[facility] Start: 12-02-2022 End: 12-02-2022 Patient encounter procedure Vianey SILVERMAN [facility] Start: 11-18-2022 End: 11-19-[address] ILDA PECK . Facility:[facility] Start: 11-08-2022 End: 11-09-2022 ambulatory TAYLOR JOSHUA . Facility:[facility] Start: 11-01-2022 End: 11-01-2022 Patient encounter procedure KYLE RODRIGUEZ [facility] Start: 10-05-2022 End: 10-05-2022 Patient encounter procedure KYLE RODRIGUEZ [facility] Start: 09-07-2022 End: 09-07-2022 Patient encounter procedure Taylor Joshua [facility] Start: 08-28-2022 Letter encounter [facility] Virk MD [email or web address] Start: 08-17-2022 End: 08-17-2022 Patient encounter procedure Taylor Joshua [facility] Start: 08-12-2022 Telephone encounter Aarti vences MA, [facility] [place], CONTROL PANEL OPERATOR Work Phone: [facility] Start: 07-21-2022 End: 07-22-[address] ILDA PECK . 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 Facili ty:[facility]1 Start: 03-17-[address] ILDA PECK . Facili ty:[facility]1 Start: 03-09-2022 Encounter for genera l adult medical examination without abnormal findings DR ILDA PECK . [facility] Start: 03-07-2022 End: 03-08-2022 Encounter for general adult medical examination without abnormal findings DR ILDA PECK . Facility:[facility] Start: 03-07-2022 End: 03-08-[address] ILDA PECK . Facility:[facility] Start: 03-01-2022 End: 03-01-2022 Patient encounter procedure Saeed Cantu Jr. [facility] Start: 02-01-2022 End: 02-01-2022 Patient encounter procedure Saeed Cantu Jr. [facility] Start: 01-04-2022 End: 01-04-2022 Patient encounter procedure Saeed Cantu Jr. [facility] Procedures Date Procedure Procedure Detail Performing Clinician Start: 11-02-2023 Follow-up visit Follow-up UNIQUE ANTHONY Start: 11-02-2023 Arthrocentesis aspir &/inj major jt/bursa w/o us Osmin Anthony MD Work Phone: Start: 09-08-2023 Follow-up visit Follow-up JEOVANNY SANTOYO Start: 06-15-[address] FABIÁN PECK . Comment on above: Performed By: #### T ESTTOT #### [facility] [address] [place] [address] Dr. Reuben Morrison Start: 03-07-[address] FABIÁN PECK . Comment on above: Performed By: #### I BLAIR, PSASC, VITB12, VITAD #### [facility] [address] [address] [address] Reuben Morrison Start: 12-21-2016 Cystourethroscopy wi [...] DTaP,Tdap and Td Vaccines (2 - Tdap) [facility] Start: 09-04-2031 Urine microalbumin profile DTAP,TDAP,TD (2 - Tdap) [facility] Start: 06-15-2027 PROSTATE CANCER SCREENING DISCUSSION PROSTATE CANCER SCREENING DISCUSSION [facility] Start: 11-02-2024 Adult BMI Screening Adult BMI Screening [facility] Start: 11-02-2024 Tobacco Screening Tobacco Screening [facility] Start: 05-26-2023 COVID-19 Vaccine ( season) COVID-19 Vaccine ( season) [facility] Start: 05-26-2023 Influenza vaccination INFLUENZA (#1) [facility] Start: 09-25-2022 DEPRESSION ASSESSMENT DEPRESSION ASSESSMENT [facility] Start: 09-20-2022 COVID-19 Vaccine (5 - Booster for Pfizer series) COVID-19 Vaccine (5 - Booster for Pfizer series) [facility] Start: 09-20-2022 COVID-19 VACCINE (5 - Pfizer series) COVID-19 VACCINE (5 - Pfizer series) [facility] Start: 07-19-2022 End: 07-19-2022 Patient encounter procedure 07/19/2022 Office Visit Physical Medicine & Rehab/[facility] Jovita Virk MD [address] [place] [id number] [facility] [place] [facility] Start: 06-25-2022 Influenza vaccination Influenza Vaccine (#1) [facility] Start: 05-31-2022 Shingles (RZV) Vaccine (2 [...] [facility] Start: 12-04-2020 DIABETES SCREEN DIABETES SCREEN [facility] Start: 11-23-2014 Annual wellness visit Annual Wellness Visit (G0438) [facility] Start: 06-10-2012 Thyroid stimulating hormone measurement TSH [facility] Start: 2009 Measurement of occult blood in single stool specimen FIT [facility] Start: 2009 Screening for malignant neoplasm of colon CRC Screening [facility] Start: 2009 Shingles (RZV) Vaccine (1 of 2) Shingles (RZV) Vaccine (1 of 2) [facility] Start: 02-22-2004 COLOGUARD (FIT-DNA) COLOGUARD (FIT-DNA) [facility] Start: 02-22-2004 Colonoscopy COLONOSCOPY [facility] Start: 02-22-2004 COLORECTAL CANCER SCREENING COLORECTAL CANCER SCREENING [facility] Start: 02-22-[address] COLONOGRAPHY [facility] Start: 02-22-2004 FECAL OCCULT BLOOD FECAL OCCULT BLOOD [facility] Start: 02-22-2004 SIGMOIDOSCOPY SIGMOIDOSCOPY [facility] Start: 1994 LIPID SCREEN LIPID SCREEN [facility] Start: 1977 Adult BMI Follow Up Plan Adult BMI Follow Up Plan [facility] Start: 1977 ANNUAL PCP TEAM CHRONIC DISEASE VISIT ANNUAL PCP TEAM CHRONIC DISEASE VISIT [facility] Start: 1977 Hepatitis C screening Hepatitis C Antibody [facility] Start: 1977 HEPATITIS C SCREENING HEPATITIS C SCREENING [facility] Start: 1977 HIV SCREENING HIV SCREENING [facility] Start: 1977 SPIROMETRY SPIROMETRY [facility] Start: 1977 Tetanus + diphtheria + acellular pertussis vaccine (product) Tdap Booster [facility] Start: 1974 HIV screening HIV Test [facility] Start: 1971 Depression Screening Depression Screening [facility] Start: 1965 PNEUMOCOCCAL (1 - PCV) PNEUMOCOCCAL (1 - PCV) [facility] Start: 1959 Screening for malignant neoplasm of colon Colonoscopy [facility] Immunizations Immunization Date Immunization Notes Care Provider [facility] 08-10-2023 influenza virus vaccine, unspecified formulation Shawanda MEJIA [facility] 08-29-2022 zoster vaccine recombinant Shawanda Hernandez PA-C Work Phone: [facility] 07-26-2022 SARS-CoV-2 (COVID-19 ) mRNA-1273 vaccine Shawanda MEJIA [facility] 07-25-2022 Influenza, injectabl e, Madin [place] Canine Kidney, preservative free, quadrivalent Jovita Virk MD Work Phone: [facility] 04-05-2022 zoster vaccine recombinant Jovita Virk MD Work Phone: [facility] 09-20-2021 SARS-CoV-2 (COVID-19 ) mRNA BNT-162b2 vax Shawanda MEJIA [facility] [place] 09-04-2021 diphtheria, tetanus toxoids and pertussis vaccine Jovita Virk MD Work Phone: [facility] 08-25-2021 SARS-CoV-2 (COVID-19 ) Ad26 vaccine, recombinant Saeed Cantu Jr. [facility] 08-10-2021 influenza, injectabl e, quadrivalent, preservative free Jovita Virk MD Work Phone: [facility] 08-10-2021 influenza virus vaccine, unspecified formulation Jovita Virk MD Work Phone: [facility] 06-25-2021 influenza virus vaccine, unspecified formulation Saeed Cantu Jr. [facility] 12-22-2020 Pfizer (12+ yrs) SARS-COV-2 (COVID-19) vaccine, mRNA, spike protein, LNP, pres. free, 30 mcg/0.3mL dose (RDN=972) Jovita Virk MD Work Phone: [facility] 11-30-2020 Pfizer (12+ yrs) SARS-COV-2 (COVID-19) vaccine, mRNA, spike protein, LNP, pres. free, 30 mcg/0.3mL dose (PNY=345) Jovita Virk MD Work Phone: [facility] 08-25-2020 influenza virus vaccine, unspecified formulation Saeed Cantu Jr. [facility] 06-30-2020 influenza, injectabl e, quadrivalent, preservative free Jovita Virk MD Work Phone: [facility] 12-25-2019 SARS-CoV-2 (COVID-19 ) mRNA BNT-162b2 beau Cantu [facility] 11-24-2019 SARS-CoV-2 (COVID-19 ) mRNA BNT-162b2 beau Cantu [facility] Payers Date Payer Category Payer Self-pay 2023 Unknown [id number] 2022 Unknown [id number] 2017 Unknown [id number] [id number]. [id number] 2017 Unknown [id number] 2013 Medicare [id number]. [id number] 1959 Medicare [id number] 1959 Self-pay [id number] 1959 Unknown [id number] 2.16.840.1.047334.3.579.2.5 1959 Unknown [id number] 2.16.840.1.814182.3.579.2.5 1959 Unknown [id number] 2.16.840.1.792651.3.579.2.5 1959 Unknown [id number] 2.16.840.1.288661.3.579.2.5 1959 Unknown [id number] 2.16.840.1.837499.3.579.2.5 1959 Unknown [id number] 2.16.840.1.866485.3.579.2.5 1959 Unknown [id number] 2.16.840.1.392456.3.579.2.5 9 Unknown [id number] 2.16.840.1.372780.3.579.2.5 93 1959 Unknown [id number] 2.16.840.1.266602.3.579.2.5 93 1959 Unknown [id number] 2.16.840.1.460475.3.579.2.5 93 1959 Unknown [id number] 2.16.840.1.898077.3.579.2.5 93 1959 Unknown [id number] 2.16.840.1.038709.3.579.2.1 286 1959 Unknown [id number] 2.16.840.1.382338.3.579.2.7 27 1959 Unknown [id number] 2.16.840.1.511578.3.579.2.7 27 1959 Unknown [id number] 2.16.840.1.287932.3.579.2.7 1959 Unknown [id number] 2.16.840.1.420052.3.579.2.7 1959 Unknown [id number] 2.16.840.1.650851.3.579.2.7 1959 Unknown [id number] 2.16.840.1.825113.3.579.2.7 1959 Unknown [id number] 2.16.840.1.144651.3.579.2.7 27 Private Health Insurance [facility] [id number] Unknown [id number] 2.16.840.1.346521.3.579.2.5 93 Unknown MMO [employer] [id number] Unknown [id number] 2.16.840.1.673884.3.579.2.5 31 Social History Date Type Detail Facility Start: 10-05-2021 End: 05-07-2024 Tobacco smoking status Never smoked tobacco (finding) [facility] Tobacco smoking status Never [facility] Start: 11-05-2020 End: 04-26-2023 Sex Assigned At Male [facility] Start: 08-24-2011 End: 04-26-2023 Tobacco use and exposure Smokeless tobacco non-user [facility] Start: 12-07-2017 End: 08-12-2022 Alcohol intake Not Asked [facility] Start: 1960 Sex Assigned At Not on file [facility] Start: 08-12-2022 History SDOH Social Connections Phone 1 [facility] Start: 08-12-2022 History SDOH Social Connections Get Together 2 [facility] Start: 08-12-2022 History SDOH Social Connections [facility] 98 [facility] Start: 08-12-2022 Education [facility] Start: 04-26-2023 End: 11-02-2023 Alcohol intake Current drinker of alcohol (finding) [facility] Start: 11-05-2020 End: 04-26-2023 History of Social function [facility] Start: 12-04-2017 Alcohol Comment social [facility] Start: 1960 Sex Assigned At Male P [facility] Start: 08-23-2021 Gender identity Identifies as male gender (finding) [facility] Medical Equipment Procedure Code Equipment Code Equipment Origin al Text Equipment Identifier Dates Brng Tib [id number] mm 0d Kn Ant - [id number] Start: 09-05-2016 Cement Bn [place] s Radpq 40g Rpl [id number] - [id number] Start: 09-05-2016 Cmpt Ptlr Thn 34 mm 3 Pg Kn Ser - [id number] Start: 09-05-2016 Goals Date Patient Goal Desired Activity /State Personal health goal Comment on above: Formatting of this n ote might be different from the original. Evaluation of progress towards goal: Maximize work with PT at discharge to strengthen L knee Functional Status Date Assessment Result Facility 05-07-2024 Functional Status N/A [facility] [place] 10-16-2023 Functional Status N/A [facility] 06-12-2023 Functional Status N/A [facility] 12-02-2022 Functional Status N/A [facility] Clinical Notes 04-07-2022 to 05-07-2024 Osmin Anthony [...] prior to procedure. 2. Chronic anticoagulation (Z79.01: watermaster (current) use of 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s) see # 1 [...] - Denies Substa (more content not included)... [facility] Comment on above: Result Comment: Elec tronically Signed By: ROBERTO PRIETO, Shawanda Taylor.kusum\Date and Time Signed: 05/07/24 15:50 EDT 02-07-2024 Note [facility] Cardiology Clinic Note Chief Complaint: [...] days., Disp: , Rfl: vitamin B complex 189-1-214-2-2 mg/mL injection, Inject into the shoulder, thigh, [...] ischemia. Ejection fraction is normal. Transesophageal Echocardiogram-[facility] Name: VIANEY LACEY Study Date: 07/11/2023 12:24 PM B/P: 104 mmHg/74 mmHg HR: Date of : 1960 Location: [facility] Height: 68 in. Age: 63 year(s) Patient Room : Weight: 189 lb. Gender: Male Patient Status: OutPt BSA: 2 m2 Indication: Atrial Fibrillation, Pre-Cardioversion Examination: JAMIN (Transesophageal Echo / CFI) Image Quality: Good Patient Consent: Informed, written consent was obtained for the procedure s p @ c 3 Exam Location: A JAMIN was performed in the Starter Mechanic without complications s p @ c 3 [...] mitral regurgitation. Tric (more content not included)... 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 2. Atrial flutter s/p bidirectional [...] function. He is also recently seen a felt puller. They are weaning of amantadine which was [...] Year: No Utilities: Not At Risk (11/16/2023) [facility] Utilities Threatened with loss of utilities: [...] tablet 0 tamsulo (more content not included)... [facility] 11-17-2023 Note Renal condition is stable [facility] 11-17-2023 Note 11/17/23 1017 Admission Assessment Questions [...] Discharge? No Does the patient have a nurse case management assigned to them through their insurance? No Living Arrangement (Current/Prior to Hospitalization) Private residence;Home self care (one story house - 2 entry stairs) Does the patient have history of HHC or SNF? Yes ([facility] following brain injury 2010) Assistive Device Other [...] you able to send link and activate [employer]? MyChart already active [facility] 11-16-2023 Note ATRIAL FIBRILLATION ABLATION PROCEDURE NOTE DATE OF PROCEDURE: 11/16/2023 PERFORMING PHYSICIAN: Dr. Jeovanny Scott DIRECTOR OF RECRUITMENT: Dr Blanca Verde CONSENT: Patient NAME OF [...] Coumadin ridge. Esophagus was mapped using the [employer] 3D mapping software and noted to be [...] revealed a lar (more content not included)... [facility] 11-16-2023 Note Patient: ODILON Mcintosh Olynn Procedure Summary Date: 11/16/23 Room / Location: [facility] TASSEL MAKING MACHINE OPERATOR 1 EP / [facility] (Cath) Anesthesia Start: 1210 Anesthesia [...] per anesthesia protocol. No notable events documented. [facility] 11-16-2023 Note Patient: ODILON Mcintosh Olynn Procedure Summary Date: 11/16/23 Room / Location: [facility] TASSEL MAKING MACHINE OPERATOR 1 EP / [facility] (Cath) Anesthesia Start: 1210 Anesthesia [...] Line Transport: uneventful Patient condition is: stable [facility] 11-16-2023 Note Airway Date/Time: 11/16/2023 12:27 PM Urgency: elective Airway not difficult General Information and Staff Patient location during procedure: OR Anesthesiologist: Gissell Heller MD Resident/NATURAL RESOURCES MANAGER/CAA: Edy Marino DO Performed: resident/NATURAL RESOURCES MANAGER/AUDREY Indications and Patient Condition Indications for airway [...] 1 Number of other approaches attempted: 0 [facility] 11-16-2023 Note Arterial Line: Date/Time: 11/16/2023 [...] mL - 11/16/2023 12:00:00 PM Staffing Performed: resident/NATURAL RESOURCES MANAGER/AUDREY Resident/NATURAL RESOURCES MANAGER: Tara Penny MD Performed by: Tara Penny MD Authorized by: Gissell Heller MD [facility] 11-16-2023 Note Patient: ODILON Mcintosh Olynkechi Procedure Information Anesthesia Start Date/Time: 11/16/23 1211 Procedures: Ablation atrial fibrillation JAMIN during EP case Location: [facility] TASSEL MAKING MACHINE OPERATOR 1 EP / [facility] (Cath) Providers: Jeovanny Scott MD [...] 86 QT Interval 392 QTC CALCULATION(BAZETT) 429 R-[place] -15 T Wave [place] -6 Impression Atrial fibrillation Abnormal ECG When compared with ECG of 11-JUL-2023 12:42, Atrial fibrillation has replaced Sinus rhythm Vent. rate has increased BY 25 BPM Transesophageal echo (JAMIN) with possible cardioversion Result Date: 07/11/2023 1 [facility] Heart Station [address] [place] [address] [phone] (fax) Transesophageal Echocardiogram-[facility] Name: VIANEY LACEY Study Date: 07/11/2023 12:24 PM B/P: 104 mmHg/74 mmHg HR: Date of : 1960 Location: [facility] Height: 68 in. Age: 63 year(s) Patient Room: Weight: 189 lb. Gender: Male Patient Status: OutPt BSA: 2 m2 Indication: Atrial Fibrillation, Pre-Cardioversion Examination: JAMIN (Transesophageal Echo / CFI) Image Quality: Good Patient Consent: Informed, written consent was obtained for the procedure Exam Location: A JAMIN was performed in the Starter Mechanic without complications Anesthesia Pharyngeal anesthesia with viscous [...] in the aorta. Procedure Staff Reading Group: [facility] [employer] All Source Intelligence: Cherrie Armstrong RDCS Ordering Physician: George Loza [...] Equipment Requests Tara Penny MD PGY 4 Die Cast Supervisor [facility] 11-02-2023 History of Present illness Narrative [...] evaluated the patient today with my physician dental assistant teacher and agree with all aspects of the [...] via procedure documentation documented in this encounter [facility] 10-30-2023 Note [facility] Consult Note [...] function. He is also recently seen a felt puller. They are weaning of amantadine which was [...] route for 90 days. vitamin B complex 784-5-140-2-2 mg/mL injection Refill(s) 0 amantadine (Symmetrel) 100 [...] Inspection and Palpat (more content not included)... [facility] 10-30-2023 Note Patient here for H&P prior to afib ablation scheduled for 11/16/[address] Scott. Denies chest pain, SOB, palpitations, lightheadedness/syncope, and bleeding on Eliquis. Review of Systems Constitutional: Positive for malaise/fatigue. All other systems reviewed and are negative. [facility] 10-16-2023 Hospital Discharge instructions Patient [...] Document Reviewed: 01/20/2022 Elsevier Patient Education [address] Follow Up Care 07/31/2023 10:30:59 With:HERRERA PRIETO, Vianey Ty, URL Address: [facility] [address], [place] [address]- When:Within 1 Year(s) Comments:w/AARON [facility] 09-08-2023 Note [facility] Note Reason [...] function. He is also recently seen a felt puller. They are weaning of amantadine which was [...] route for 90 days. vitamin B complex 417-6-808-2-2 mg/mL injection Refill(s) 0 No current facility-administered [...] tender Musculoskeletal Ins (more content not included)... [facility] 08-10-2023 Note [facility] Cardiology Clinic Note Chief Complaint: [...] function. He is also recently seen a felt puller. They are weaning of amantadine which was [...] days., Disp: , Rfl: vitamin B complex 150-5-945-2-2 mg/mL injection, Refill(s) 0, Disp: , Rfl: [...] ischemia. Ejection fraction is normal. Transesophageal Echocardiogram[facility] Name: VIANEY LACEY Study Date: 07/11/2023 12:24 PM B/P: 104 mmHg/74 mmHg HR: Date of : 1960 Location: [facility] Height: 68 in. Age: 63 year(s) Patient Room : Weight: 189 lb. Gender: Male Patient Status: OutPt BSA: 2 m2 Indication: Atrial Fibrillation, Pre-Cardioversion Examination: JAMIN (Transesophageal Echo / CFI) Image Quality: Good Patient Consent: Informed, written consent was obtained for the procedure s p @ c 3 Exam Location: A JAMIN was performed in the Starter Mechanic without complications s p @ c 3 [...] A 12-lead EKG (more content not included)... [facility] 07-27-2023 Evaluation note Encounter Date [...] advised him to avoid NSAIDs or any ehak-zee-xxczm er supplements. This deanna with the importance [...] - G47.33) Continue follow-up with the specialist. 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 Use of blood products discussed with patient who. [facility] Cardiology Clinic Note Chief Complaint: Patient here to re-establish care for PAF. Was last seen in [address] Peck. Had echo and ECG yesterday. states they recently returned home from [place]. While they were there, he had intermittent SOB with very swollen ankles. 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 Feeling chest pressure. He is in the process of getting a cpap machine for NANCY. HPI: ODILON Lacey is a 63 y.o. male known to me from prior office visits and his - Nitza Addison who works at [employer]. He has a known h/o PAF in the past ([id number]) thought to be related to thyroid issues [...] ST-T wave changes Assessment: Paroxysmal atrial fibrillation, [id number] score of 2-3 Chest pain - unstable [...] referred to our elect (more content not included)...[facility] 06-12-2023 Hospital Discharge instructions Patient [...] therapy. Follow these instructions at home: Take hclj-lzs-npaanfk and prescription medicines only as told by [...] provider. Document Revised: 05/13/2021 Document Reviewed: 05/13/2021 [employer] Patient Education [address] Follow Up Care 05/04/2023 10:34:04 With:HERRERA PRIETO, Vianey Crawford, URL Address: [facility] [address] , [place] [address]- [phone] When:Within 6 Month(s) Comments:w/Testosterone Level, PSA and CBC [facility] [place] 08-02-2023 NoteHNO ID: [id number] Author: Shawanda Hernandez PA-C Service: ? Author Type: Physician Train Station Server Type: Progress Notes Filed: 04/26/2023 11:40 AM [...] Cervical disc disease CVA (cerebral vascular accident) ([facility]) due to head trauma [...] Full Oblique Extension With (more content not included)...[facility] 04-26-2023 History of Present illness Narrative* Shawanda [...] 2023 TIME: 11:15 AM [facility] Discharge instructions Patient Education 12/02/2022 [...] urethra. Follow these instructions at home: Take ncte-obg-hshdaip and prescription medicines only as told by [...] 09/11/2006 Document Revised: 08/06/2019 Document Reviewed: 10/16/2017 [employer] Patient Education [address] Follow Up Care 11/01/2022 10:29:54 With:HERRERA PRIETO, Vianey Crawford, URL Address: [address] [address] [place], [place] [id number]- When: Unknown [facility] 11-18-2022 History of Present illness Narrative* Aarti Kelsey MA, CCC, CONTROL PANEL OPERATOR - 08/12/2022 12:27 PM EST SPEECH LANGUAGE [...] stated should already be in the system. CONTROL PANEL OPERATOR was speaking with patient's spouse via phone conversation attempting to troubleshoot and bypass the preliminary questionnaires. However, it was unsuccessful. CONTROL PANEL OPERATOR sent patient's spouse a direct link to her cell phone to connect to video visit and the same issues arose. Patient was connected to Wifi and using an iPad in home setting. The iPad did not successfully pass the hardware test and patient/patient's spouse were never able to successfully log on. CONTROL PANEL OPERATOR provided patient/patient's spouse the [facility] Support Team's contact information to reach out for further assistance with log on issues. CONTROL PANEL OPERATOR will e-mail patient's spouse/patient information regarding memory strategies, etc to help in the home setting (patient's spouse reported patient tends to misplace belongings, such as keys, etc and could use a refresher on the strategies. Patient's spouse stated she will take a look at the strategies and go from there with scheduling anything further. CONTROL PANEL OPERATOR provided patient/spouse with our direct line to [facility] Therapy dept if she has any further questions/concerns or needs to schedule. Patient left without being seen this date. Electronically signed by Aarti Kelsey MA, [facility] [place], CONTROL PANEL OPERATOR at 08/12/2022 12:28 PM EST documented in this [id number] Instructions* Patient Instructions* Jovita Virk MD - 07/20/2022 2:49 PM EDT -Get the sleep apnea addressed -Hold amantadine -Add memantine 5mg daily. -External referral for brain MRI. -Speech therapy for cognitive strategies. -R knee surgery. -F/up 1 year, sooner if needed. documented in this [id number] History of Present illness Narrative* Jovita Virk [...] 200 mg into the muscle once amonth. 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 Last available brain imaging [id number] showed ventriculomegaly that was deemed not hydrocephalus [...] Risk protocol implemented: No documented in this [id number] Telephone encounter Note* Telephone Encounter - Renetta [...] PCP on file No PCP on file [id number] Miscellaneous Notes* Telephone Encounter - Renetta Boyer [...] Appointments Appointment Date:02/01/2022 10:00:00 AM Scheduled Provider: Location:[facility] Appointment Type:URO Nurse Visit Appointment Date:03/01/2022 09:00:00 AM Scheduled Provider:Saeed Cantu Jr., MD Location:[facility] Appointment Type:URO Office Visit Appointment Date:04/05/2022 11:15:00 AM Scheduled Provider:Saeed Cantu Jr., MD Location:[facility] Appointment Type:URO Office Visit [facility] evaluation + Plan note Future Appointments Appointment Date:03/01/2022 09:00:00 AM Scheduled Provider:Saeed Cantu Jr., MD Location:[facility] Appointment Type:URO Office Visit Appointment Date:04/05/2022 11:15:00 AM Scheduled Provider:Saeed Cantu Jr., MD Location:[facility] Appointment Type:URO Office Visit [facility] evaluation + Plan note Future Appointments Appointment Date:04/05/2022 11:15:00 AM Scheduled Provider:Saeed Cantu Jr., MD Location:[facility] Appointment Type:URO Office Visit Diagnostic Tests Pending * Testosterone Level Total 03/01/22 [facility] evaluation + Plan note Future Appointments Appointment Date:07/11/2022 10:15:00 AM Scheduled Provider: Location:[facility] Appointment Type:URO Nurse Visit [facility] evaluation + Plan note Future Appointments Appointment Date:09/07/2022 10:00:00 AM Scheduled Provider: Location:[facility] Appointment Type:URO Nurse Visit [facility] evaluation + Plan note Future Appointments Appointment Date:10/05/2022 10:00:00 AM Scheduled Provider: Location:[facility] Appointment Type:URO Nurse Visit [facility] evaluation + Plan note Future Appointments Appointment Date:11/01/2022 10:00:00 AM Scheduled Provider: Location:[facility] Appointment Type:URO Nurse Visit [facility] evaluation + Plan note Future Appointments Appointment Date:11/30/2022 10:00:00 AM Scheduled Provider:Taylor Joshua MD Location:[facility] Appointment Type:URO Office Visit Diagnostic Tests Pending * CBC w/ Auto Diff 11/01/22 * Testosterone Level Total 11/01/22 [facility] evaluation + Plan note Diagnostic Tests Pending * Testosterone Level Total 12/17/22 * Testosterone Level Total 04/25/23 [facility] evaluation + Plan note Future Appointments Appointment Date:04/05/2023 10:00:00 AM Scheduled Provider: Location:[facility] Appointment Type:URO Nurse Visit [facility] evaluation + Plan note Future Appointments Appointment Date:05/30/2023 10:00:00 AM Scheduled Provider: Location:[facility] Appointment Type:URO Nurse Visit [facility] evaluation + Plan note Future Appointments Appointment Date:07/10/2023 09:30:00 AM Scheduled Provider: Location:[facility] Appointment Type:URO Nurse Visit Appointment Date:11/27/2023 09:45:00 AM Scheduled Provider:Vianey ISLVERMAN MD Location:[facility] Appointment Type:URO Office Visit Diagnostic Tests Pending * Testosterone Level Total 06/12/23 * PSA Total 06/12/23 * CBC w/ Auto Diff 06/12/23 [facility] evaluation + Plan note Future Appointments Appointment Date:10/21/2024 10:15:00 AM Scheduled Provider:Vianey SILVERMAN MD Location:[facility] Appointment Type:URO Office Visit Diagnostic Tests Pending * PSA Total 10/16/23 [facility] evaluation + Plan note Future Appointments Appointment Date:10/21/2024 10:15:00 AM Scheduled Provider:Vianey SILVERMAN MD Location:[facility] Appointment Type:URO Office Visit [facility] Evaluation note* 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 Work Phone: Hospital course Narrative No data available for this section [facility] Hospital Discharge instructions No data available for this section [facility] InstructionsNot on filedocumented in this encounter [facility].[facility] SystemProgress note No data available for this section [facility] Advance Directives No Advanced Directives Records FoundLatest [...] of brain injury (HCC) Jovita Virk MD [address] [place] [phone] Referral ID Status Reason Start Date Expiration Date Visits Requested Visits Authorized [id number] Authorized Patient Preference 2 07/20/2023 3 3 Comments Brain MRI without contrast. H/o TBI 2010. Continues to struggle with cognitive deficits, fatigue, impaired balance, unimproved. Please evaluate for other structural causes of these issues. Fax report to me at [phone]. Specialty Diagnoses / Procedures Referred By Stephany flower Referred To Contact Speech Pathology Diagnoses Cognitive changes Late effect of brain injury (HCC) Jovita Virk MD [address] [place] [phone] [place] [address] Referral ID Status Reason Start Date Expiration Date Visits Requested Visits Authorized [id number] Pending Review [facility] 2 07/20/2023 10 10 Question Answer [...] Care Teams (unrecognized sec tion and content) Receiving Clerk Relationship Specialty Start Date End Date Jovita Virk MD [address] [place] [address] Physician Physical Medicine & Rehab/PM&R 06/30/20 Receiving Clerk Relationship Specialty Start Date End Date Jovita Virk MD [address] [place] [address] Physician Physical Medicine & Rehab/PM&R 06/30/20 Receiving Clerk Relationship Specialty Start Date End Date Jovita Virk MD [address] [place] [address] Physician Physical Medicine & Rehab/PM&R 06/30/20 Receiving Clerk Relationship Specialty Start Date End Date Ilda Peck MD PCP - General Family Medicine 12/04/17 Receiving Clerk Relationship Specialty Start Date End Date Ilda Peck MD [address] [place] [id number] PCP - General 07/05/16 Team Status: Active [...] DATE CREATED AUTHOR AUTHOR'S ORGANIZ ATION 04/27/2023 [facility] DATE CREATED AUTHOR AUTHOR'S ORGANIZ ATION 09/23/2023 [facility] DATE CREATED AUTHOR AUTHOR'S ORGANIZ ATION 11/06/2023 [facility] DATE CREATED AUTHOR AUTHOR'S ORGANIZ ATION 04/12/2024 [facility] DATE CREATED AUTHOR AUTHOR'S ORGANIZ ATION 04/15/2024 [facility] DATE CREATED AUTHOR AUTHOR'S ORGANIZ ATION 05/09/2024 [facility] Source Comments (unrecognize d section and content) In the event this informatio n is protected by the Federal Confidentiality of Alcohol and Drug Abuse Patient Records regulations: The Federal rules restrict any use of the information to criminally investigate or prosecute any alcohol or drug abuse patient.[facility] Goals (unrecognized section and content) Goals [...] BE BASED ON THE PRIMARY CLINICAL RECORDS. [facility]. provides no warranty or guarantee of the accuracy or completeness of information in this document.
[2024-05-29 06:48] VITALS: BP 143/91; PULSE 54; TEMP 36.3; O2SAT 99; BMI 28.2
[2024-05-29] MEDS: LACTATED RINGER'S SOLUTION 1,000 ML 50 ML IV (07:22)
[2024-05-29 07:49] VITALS: BP 143/91; PULSE 58; TEMP 36.1; O2SAT 97
[2024-05-29 08:04] VITALS: BP 123/73; PULSE 53; O2SAT 96
[2024-05-29 08:18] VITALS: BP 129/75; PULSE 50; O2SAT 18
== END 2024-05-29 08:19 | disposition home or self-care (01) ==
PROVIDERS: PCP Family Medicine; Visit Provider Surgery
PROC: (CPT 812; principal; 2024-05-29 07:30)
DX: Z12.11 Encounter for screening for malignant neoplasm of colon (principal); Z79.01 Long term (current) use of 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s; I48.91 Unspecified atrial fibrillation; E03.9 Hypothyroidism, unspecified; N40.0 Benign prostatic hyperplasia without lower urinary tract symptoms; G47.33 Obstructive sleep apnea (adult) (pediatric); Z86.73 Personal history of transient ischemic attack (TIA), and cerebral infarction without residual deficits; I11.0 Hypertensive heart disease with heart failure; I50.9 Heart failure, unspecified
CPT/HCPCS: 45378; J2704

== ENCOUNTER 2024-06-03 10:04 | Outpatient (OUT) | payer BC, MEDICARE, SELFPAY ==
[2024-06-03 10:35] LABS: Hematocrit 45.4 % (42.0-54.0); Hemoglobin 15.4 g/dL (14.0-18.0); Mean Corpuscular HGB Conc 33.9 g/dL (29.9-35.2); Mean Corpuscular Hemoglobin 29.7 pg (25.9-34.0); Mean Corpuscular Volume 87.5 fL (80.0-94.0); Mean Platelet Volume 9.5 fL (9.5-13.5); Platelet Count 126 10^3/uL (150-450); Red Blood Count 5.19 10^6/uL (4.70-6.10); Red Cell Distribution Width 13.3 % (11.0-15.0); White Blood Count 3.2 10^3/uL (4.0-11.0)
[2024-06-03 10:36] LABS: Bilirubin Urine NEGATIVE (NEGATIVE); Blood Urine NEGATIVE (NEGATIVE); Clarity Urine CLEAR (CLEAR); Color Urine YELLOW (YELLOW); Glucose Urine UA NEGATIVE (NEGATIVE); Ketones Urine NEGATIVE (NEGATIVE); Leukocyte Esterase Urine NEGATIVE (NEGATIVE); Nitrite Urine NEGATIVE (NEGATIVE); Protein Urine NEGATIVE (NEG/TRACE); Urobilinogen Urine 0.2 EU/dL (0.2-1.0); pH Urine 5.5 (5.0-9.0)
[2024-06-03 10:37] LABS: Creatinine Urine Random 107.55 mg/dL (20.00-300.00); Protein Creatinine Ratio Urine 0.06; Total Protein Urine Random 6.9 mg/dL (<=11.9)
[2024-06-03 10:51] LABS: Bacteria Urine NONE SEEN #/HPF (NONE SEEN); Mucus Urine NONE SEEN (NONE SEEN); RBC Urine NONE SEEN #/HPF (0-2); Squamous Epithelial Cell Urine RARE #/LPF (NONE/RARE); WBC Urine NONE SEEN #/HPF (NONE SEEN)
[2024-06-03 11:06] LABS: Albumin Level 3.8 g/dL (3.4-5.0); Anion Gap 9.7; Calcium 8.9 mg/dL (8.5-10.1); Carbon Dioxide 31.2 mmol/L (21.0-32.0); Chloride 101 mmol/L (98-107); Estimated GFR (African America >60 (>=60); Estimated GFR (Non-African Ame >60 (>=60); Glucose 91 mg/dL (74-106); Magnesium 1.9 mg/dL (1.8-2.4); Phosphorus 2.9 mg/dL (2.6-4.7); Potassium 3.9 mmol/L (3.5-5.1); Sodium 138 mmol/L (136-145); Uric Acid 4.7 mg/dL (3.5-7.2)
[2024-06-04 11:09] LABS: PTH, Intact 34 pg/mL (15-65)
== END 2024-06-03 10:05 | disposition home or self-care (01) ==
LOC: LAB 10:06
PROVIDERS: PCP Family Medicine; Visit Provider Internal Medicine
DX: E03.9 Hypothyroidism, unspecified (principal); N18.30 Chronic kidney disease, stage 3 unspecified; I12.9 Hypertensive chronic kidney disease with stage 1 through stage 4 chronic kidney disease, or unspecified chronic kidney disease; N25.81 Secondary hyperparathyroidism of renal origin; N28.1 Cyst of kidney, acquired
CPT/HCPCS: 36415; 80069; 81001; 82306; 82570; 83735; 83970; 84156; 84439; 84443; 84481; 84550; 85027

== ENCOUNTER 2024-06-03 10:07 | Outpatient (OUT) | payer BC, MEDICARE, SELFPAY ==
[2024-06-03 11:13] LABS: Free T4 0.79 ng/dL (0.76-1.46)
[2024-06-03 11:18] LABS: Free T3 3.68 pg/mL (2.18-3.98); Thyroid Stimulating Hormone 0.664 uIU/mL (0.358-3.740)
== END 2024-06-03 10:08 | disposition home or self-care (01) ==
LOC: LAB 10:08
PROVIDERS: PCP Family Medicine; Visit Provider Internal Medicine
DX: E03.9 Hypothyroidism, unspecified (principal)
CPT/HCPCS: 36415; 84439; 84443; 84481

== ENCOUNTER 2024-07-16 12:58 | Outpatient (OUT) | payer BC, MEDICARE, SELFPAY ==
[2024-07-16 14:02] LABS: Basophils Absolute Auto 0.1 10^3/uL (0.0-0.1); Basophils Percent Auto 1.4 % (0.2-2.0); Eosinophils Absolute Auto 0.1 10^3/uL (0.0-0.7); Eosinophils Percent Auto 2.6 % (0.9-7.0); Hematocrit 45.8 % (42.0-54.0); Hemoglobin 15.4 g/dL (14.0-18.0); Immature Granulocytes Abs Auto 0.01 10^3/uL (0.00-0.03); Immature Granulocytes Pct Auto 0.2 % (0.0-0.5); Lymphocytes Absolute Auto 0.9 10^3/uL (1.2-3.8); Lymphocytes Percent Auto 22.1 % (20.5-60.0); Mean Corpuscular HGB Conc 33.6 g/dL (29.9-35.2); Mean Corpuscular Hemoglobin 29.3 pg (25.9-34.0); Mean Corpuscular Volume 87.2 fL (80.0-94.0); Mean Platelet Volume 9.7 fL (9.5-13.5); Monocytes Absolute Auto 0.4 10^3/uL (0.3-0.8); Monocytes Percent Auto 8.4 % (1.7-12.0); Neutrophils Absolute Auto 2.7 10^3/uL (1.4-6.5); Neutrophils Percent Auto 65.3 % (43.0-75.0); Platelet Count 128 10^3/uL (150-450); Red Blood Count 5.25 10^6/uL (4.70-6.10); Red Cell Distribution Width 13.4 % (11.0-15.0); White Blood Count 4.2 10^3/uL (4.0-11.0)
[2024-07-16 14:25] LABS: Anion Gap 12.2; BUN Creatinine Ratio 22.9; Calcium 9.5 mg/dL (8.5-10.1); Chloride 103 mmol/L (98-107); Estimated GFR (African America >60 (>=60 mL/min/1.73m^2); Estimated GFR (Non-African Ame >60 (>=60 mL/min/1.73m^2); Glucose 89 mg/dL (74-106); Potassium 4.2 mmol/L (3.5-5.1); Sodium 140 mmol/L (136-145)
== END 2024-07-16 12:59 | disposition home or self-care (01) ==
LOC: LAB 13:00
PROVIDERS: PCP Family Medicine; Visit Provider Family Medicine
DX: D72.819 Decreased white blood cell count, unspecified (principal); Z79.899 Other long term (current) drug therapy
CPT/HCPCS: 36415; 80048; 85025

== ENCOUNTER 2024-08-15 11:21 | Outpatient (OUT) | payer BC, MEDICARE, SELFPAY ==
--- OUTSIDE RECORDS SUMMARY | 2024-08-15 11:43 | XMS_ITS | CCD ---
Author Organization [facility] Care Team Providers Care Turf Manager Name Role Phone Ilda Peck Primary Care Physician [phone] Moose PRIETO, Jovita Unavailable Moose PRIETO, Jovita [...] Unavailable Ilda Peck MD Primary Care Provider [phone] ILDA PECK Primary Care Unavailable SHAWANDA HERNANDEZ Attending Unavailable Sandoval Knight Unavailable Ilda Peck MD Primary Care Provider [phone] MD Ilda Peck Primary Care Provider [phone] Tracy Griffin Attending Provider [phone] Ilda Peck Primary Care Unavailable Tracy Griffin Attending Unavailable Tracy Griffin Admitting Unavailable Vianey SILVERMAN Attending Unavailable SILVERMAN, Vianey Crawford Attending Unavailable SILVERMAN, Vianey Crawford Attending Unavailable NILLShawanda Attending Unavailable NILLShawanda Attending Unavailable SILVERMANVianey Attending Unavailable SILVERMANVianey Attending Unavailable OSMIN ANTHONY Attending Unavaila ILDA Beck Referring Unavailable ILDA PECK Primary Care Unavailable OSMIN ANTHONY Attending Unavaila ble ILDA PECK Referring Unavailable ILDA PECK Primary Care Unavailable Ilda Peck MD Primary Care Provider [phone] JEOVANNY SCOTT Referring Unavailable JEOVANNY SCOTT Attending Unavailable GEORGE LOZA Attending Unavailable JEOVANNY SCOTT Attending Unavailable JEOVANNY SCOTT Referring Unavailable GEORGE LOZA Attending Unavailable JEOVANNY SCOTT Attending Unavailable DEMETRA PORTER Attending Unavailable JEOVANNY SCOTT Referring Unavailable JEOVANNY SCOTT Referring Unavailable GISSELL CHRISTIANSON Referring Unavailable JERI SUNSHINE Referring Unavailable JEOVANNY SCOTT Admitting Unavailable JEOVANNY SCOTT Attending Unavailable ROMÁN DAWSON Attending Unavailable SAGE GOODE Attending Unavailable Allergies Allergy Classification Reported Allergen(s) Allergy Type Date of Onset Reaction(s) Facility (5 sources) Ciprofloxacin; Translations: [ciprofloxacin] Drug Allergy 4 Patient reported problems (finding) [facility] [place] (1 source) Ciprofloxacin Drug Allergy 3 [facility] Repository (1 source) Ciprofloxacin; Translations: [Cipro] Drug Allergy [facility] Repository (1 source) No Known Medication Allergies; Translations: [No Known Medication Allergies] Propensity to adverse reactions (disorder) [facility] Repository Medications Current Medications Medication [...] by mouth. apixaban 5 mg oral tablet (9 sources) Factor Xa Inhibitor Start: 06-27-2023 take [...] tablet by darren th once daily ascorbic acid (Vitamin C) 1000 MG ER tablet Take 1,000 mg by mouth Daily Active take 1 tablet by darren th [...] 6.25 mg oral tablet (3 sources) alpha-Adrenergic Nalini, beta-Adrenergic Nalini Start: 08-03-2023 End: 08-02-2024 carvedilol 6.25 mg Tab Refills(s) 0 Start Date: 10/16/23 Status: Ordered take 1 tablet by mouth every twe lve hours Coreg 25 MG 1 tablet with food Orally Twice a day Active cholecalciferol 0.125 mg oral tablet (3 sources) Vitamin D take 1 tablet by mouth once daily cholecalciferol (Vitamin D-3) 125 MCG (5000 UT) tablet Take 5,000 Units by mouth Daily Active chondroitin sulfates 400 mg / glucosamine [...] q4wk, # 10 mL, Refills(s) 1, Pharmacy: [facility]/pharmacy #[id number], 167, cm, 10/05/21 11:32:00 EST, Height/Length Dosing, 83, kg, 10/05/21 11:32:00 EST, Weight Dosing Start Date: 01/04/22 Status: Ordered dexpanthenol 2 mg/ml / niacinamide 100 mg/ml / riboflavin 2 mg/ml / thiamine 100 mg/ml / vitamin b6 2 mg/ml injectable solution (12 sources) Start: Vitamin B Complex injectable solution Refill(s) 0 Start Date: 05/07/19 Status: Ordered Comment on above: Refill(s) 0 dilTIAZem hydrochloride 120 mg oral tablet (1 source) Calcium Channel Nalini take 1 tablet by mouth once daily diltiazem (CARDIZEM) 120 MG tablet Take 120 mg by mouth daily. 0 Active docosahexaenoic acid 120 mg / eicosapentaenoic acid 180 mg oral capsule (4 sources) take 1 capsule by mouth once daily [place]-3 Fatty Acids (FISH OIL) 1000 MG CAPS Take 1 Capsule by mouth daily. 0 Active DOCOSAHEXANOIC ACID/EPA (FISH OIL ORAL) (1 source) take 1200 mg by mouth once daily DOCOSAHEXANOIC ACID/EPA (FISH OIL ORAL) Take 1,200 mg by mouth daily. 0 Active Fish Oils (9 sources) Start: Fish Oil Oral, Refill(s) 0 Start Date: 05/07/19 Status: Ordered hydrALAZINE hydrochloride 25 mg oral tablet (6 sources) Arteriolar Vasodilator Start: take 1 tablet by mouth three times daily hydrALAZINE 25 mg Tab 25 mg = 1 tab(s), Oral, TID, Refills(s) 0 Start Date: 05/07/24 Status: Ordered levothyroxine sodium 0.1 mg oral tablet (20 sources) l-Thyroxine Start: take 1 tablet by mouth before mealtime levothyroxine (Synthroid, Levoxyl) 100 MCG tablet Indications: Sarah's disease (CMS/HCC) Take 1 tablet (100 mcg) by mouth in the morning. Take before meals. 90 tablet 3 06/12/2024 Active Start: 06-06-2024 take 100 ug by mouth once daily Levothyroxine Active 100 MCG PO Daily June 06, 2024 12:00am Start: 05-07-2019 take 1 tablet by darren th once daily levothyroxine 150 mcg (0.15 mg) [...] mcg by mout h once daily. liothyronine (20 sources) l-Triiodothyronin e Start: 06-06-2024 take 12.5 ug by mouth once daily Liothyronine Active 12.5 MCG PO Daily June 06, 2024 12:00am Start: 05-07-2019 take 1 tablet by darren th once daily liothyronine 25 mcg Tab 25 mcg = 1 tab(s), Oral, Daily, Refills(s) 0 Start Date: 05/07/19 Status: Ordered Start: 02-08-2017 take 1 tablet by darren th once daily liothyronine (CYTOMEL) 25 MCG tablet Take 1 Tablet by mouth daily. 30 Tablet 3 02/08/2017 Active take 0.5 tablet by m outh once daily liothyronine (Cytomel) 25 MCG tablet Take 25 mcg by mouth Daily Take 0.5 tabs po qd Active Comment on above: Take 25 mcg by mouth once daily. memantine hydrochloride 5 mg oral tablet (4 sources) L-cmqhhz-N-aspartat e Receptor Antagonist Start: 2 End: 2 take 1 tablet by mouth once daily memantine (NAMENDA) 5 MG tablet Take 1 Tablet by mouth daily. 30 Tablet 3 07/20/2022 Active tamsulosin hydrochloride 0.4 mg oral capsule (20 sources) alpha-Adrenergic Nalini Start: 2 End: 3 take 1 capsule by mouth twice daily Flomax 0.4 mg Cap 0.4 mg = 1 cap(s), Oral, BID, X 90 day(s), # 180 cap(s), Refills(s) 3, [id number] 167, cm, 10/05/21 11:32:00 EST, Height/Length Dosing, 83, kg, 10/05/21 11:32:00 EST, Weight Dosing Start Date: 11/24/21 Stop Date: 11/19/22 Status: Ordered Start: 02-08-2017 take 1 capsule by [facility] once daily tamsulosin 0.4 mg Cap 0.4 mg = 1 cap(s), Oral, Daily, # 90 cap(s), Refills(s) 3, [id number], 170, cm, 05/07/24 15:15:00 EDT, Height/Length Dosing, 83, kg, 05/07/24 15:15:00 EDT, Weight Dosing Start Date: 06/20/24 Status: Ordered take 1 capsule by [facility] every twenty-four hours in the morning tamsulosin (FLOMAX) 0.4 mg capsule,extended release 24hr Take 1 capsule (0.4 mg total) by mouth in the morning. 0 Active Comment on above: 0.4 mg once daily. testosterone cypionate 200 mg/ml injectable solution (16 sources) Androgen Start: 05-03-2023 Depo-Testosterone 200 mg/mL intramuscular solution 300 mg, IntraMuscular, q4wk, # 10 mL, Refills(s) 1, [id number] 170, cm, 12/02/22 8:17:00 EST, Height/Length Dosing, 83.2, kg, 12/02/22 8:17:00 EST, Weight Dosing Start Date: 05/03/23 Status: Ordered Start: 09-07-2022 Depo-Testoster one 200 mg/mL intramuscular solution 300 mg, IntraMuscular, q4wk, # 10 mL, Refills(s) 1, Pharmacy: [facility]/pharmacy #[id number], 167, cm, 10/05/21 11:32:00 EST, Height/Length Dosing, 83, kg, 05/10/22 10:08:00 EDT, Weight Dosing Start Date: 09/07/22 Status: Ordered Start: 01-04-2022 Depo-Testoster one 200 mg/mL intramuscular solution 300 mg, IntraMuscular, q4wk, # 10 mL, Refills(s) 1, Pharmacy: [facility]/pharmacy #[id number], 167, cm, 10/05/21 11:32:00 [...] Start Date: 05/07/19 Status: Ordered Vitamin D (16 sources) Start: 08-31-2021 Vitamin D International_Unit, Oral, [...] take 1 capsule by mouth once daily [place] Aspartate 20 mg cap Take 1 capsule [...] or work inhibition as adjustment reaction] Onset: 08-24-2011 Chronic Allergic reactions (7 sources) Eczema; Translations: [Dermatitis, unspecified] Onset: 9 05-29-2019 Episodic Asthma (1 source) Asthmatic bronchitis; Translations: [Unspecified asthma, uncomplicated] 11-30-2017 Chronic Cardiac dysrhythmias (20 sources) Atrial fibrillation; Translations: [Unspecified atrial fibrillation] Onset: 6 05-29-2019 Chronic Chronic kidney disease (3 sources) Chronic kidney disease stage 3; Translations: [Chronic kidney disease, stage III (moderate)] 06-05-2024 Chronic Coagulation and hemorrhagic disorders (11 sources) Platelet count below reference range; Translations: [Thrombocytopenia, unspecified] Onset: 8 05-29-2019 Chronic Conditions associated with dizziness or vertigo (1 source) Vertigo; Translations: [Dizziness and giddiness] 11-30-2017 Episodic Congestive heart failure; nonhypertensive (2 sources) 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 Diseases of white blood cells (6 sources) Neutropenia, unspecified; Translations: [Neutropenia] Onset: 2 Chronic Disorders usually diagnosed in infancy, childhood, or adolescence (3 sources) Attention deficit hyperactivity disorder, predominantly inattentive type; Translations: [Other specified behavioral and emotional disorders with onset usually occurring in childhood and adolescence] 11-30-2017 Chronic Essential hypertension (2 sources) Hypertensive disorder 04-29-2024 Chronic Genitourinary symptoms and ill-defined conditions (4 sources) Urge incontinence; Translations: [Urge incontinence of urine] Onset: 4 Chronic Genitourinary symptoms and ill-defined conditions (20 sources) Nocturia; Translations: [Poor stream of urine] 03-14-2019 Episodic Hyperplasia of prostate (20 sources) Benign prostatic hypertrophy with outflow obstruction; Translations: [Benign prostatic hyperplasia with lower urinary tract symptoms] Onset: 2 03-14-2019 Chronic Hypertension with complications and secondary hypertension (6 sources) Chronic kidney disease due to hypertension; Translations: [Hypertensive chronic kidney disease with stage 1 through stage 4 chronic kidney disease, or unspecified chronic kidney disease] Onset: 4 Chronic Nutritional deficiencies (7 sources) Cobalamin deficiency; Translations: [Deficiency of other specified B group vitamins] Onset: 8 05-29-2019 Episodic Open wounds of extremities (1 source) Puncture wound of thumb of left hand; Translations: [Puncture wound with foreign body of left thumb without damage to nail, initial encounter] Onset: 4 Episodic Osteoarthritis (12 sources) Bilateral arthritis of knees; Translations: [Bilateral primary osteoarthritis of knee] Onset: 6 05-29-2019 Chronic Other aftercare (3 sources) Long-term current use of 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; Translations: [halfway (current) use of 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s] Onset: 4 Episodic Other and ill-defined cerebrovascular disease (2 sources) Cerebrovascular disease 04-29-2024 Chronic Other connective tissue [...] Chronic Other diseases of kidney and ureters (2 sources) Cyst of kidney, acquired; Translations: [Cystic kidney disease, unspecified] Episodic Other diseases of kidney and ureters (1 source) Cyst of kidney; Translations: [Cyst of kidney, acquired] 06-05-2024 Episodic Other endocrine disorders (11 sources) Testicular hypofunction; Translations: [Testicular hypofunction] Onset: 2 Chronic Other endocrine disorders (16 sources) Male hypogonadism 03-14-2019 Chronic Other endocrine disorders (5 sources) Testicular hypofunction; Translations: [TESTICULAR HYPOFUNCTION] Onset: 2 Chronic Other endocrine disorders (4 sources) Testicular hyperfunction; Translations: [TESTICULAR HYPERFUNCTION] Onset: 3 Chronic Other injuries and conditions due to external causes (16 sources) H/O: head injury 03-14-2019 Episodic Other lower respiratory disease (2 sources) Snoring; Translations: [Snoring] 07-17-2024 Episodic Other male genital disorders (16 sources) Secondary erectile dysfunction 08-31-2021 Chronic Other male genital disorders (6 sources) Male erectile dysfunction, unspecified; Translations: [Erectile [...] Episodic Other nutritional; endocrine; and metabolic disorders (3 sources) Overweight in adulthood with body mass index of 25 or more but less than 30; Translations: [Body mass index (BMI) 28.0-28.9, adult] Episodic Other nutritional; endocrine; and metabolic disorders (2 sources) Overweight 04-29-2024 Episodic Other screening for suspected conditions (not mental disorders or infectious disease) (2 sources) Encounter for screening for malignant neoplasm of prostate; Translations: [Screening for malignant neoplasm of colon done] Onset: 2 Episodic Residual codes; unclassified (7 sources) Sleep apnea; Translations: [Sleep apnea, unspecified] Onset: 9 05-29-2019 Chronic Residual codes; unclassified (7 sources) Obstructive sleep apnea syndrome; Translations: [Obstructive sleep apnea (adult) (pediatric)] Onset: 4 06-05-2024 Chronic Residual codes; unclassified (2 sources) Obstructive sleep apnea (adult) (pediatric); Translations: [Obstructive sleep apnea (adult)(pediatric)] Chronic Residual codes; unclassified (5 sources) Hypersomnia; Translations: [Hypersomnia, unspecified] Onset: 4 07-17-2024 Chronic Residual codes; unclassified (3 sources) Periodic limb movement disorder; Translations: [Periodic limb movement disorder] Onset: 4 07-08-2024 Chronic Residual codes; unclassified (2 sources) Sleep deprivation; Translations: [Sleep deprivation] 07-17-2024 Episodic Spondylosis; intervertebral disc disorders; other back problems (11 sources) Cervical spondylosis; Translations: [Other spondylosis with myelopathy, cervical region] Onset: 7 10-13-2006 Chronic Spondylosis; intervertebral disc disorders; other back problems (17 sources) Cervical spine ankylosis; Translations: [Fusion of spine, cervical region] Onset: 1 11-11-2021 Episodic Thyroid disorders (13 sources) Hypothyroidism; Translations: [Hypothyroidism, unspecified] Onset: 1 Resolved: 4 06-28-2011 Chronic Unclassified (2 sources) Patient encounter status 05-07-2024 Unclassified (2 sources) Other persistent atrial fibrillation; Translations: [Other persistent atrial fibrillation] Onset: Unclassified (1 source) Puncture wound of left thumb with foreign body 08-13-2024 Past or Other Problems Problem Classification Problem [...] Test Name Value Interpretation Reference Range Facility Office Visiton 07-16-2024 Follow-up visit [id number] [address] Lacey 1960 M Date Provider Department Center 07/16/2024 JEOVANNY CARSON [facility] Family History Problem Relation Age of Onset Cancer Mother Diabetes Mother Coronary artery disease Father Stroke Father Cancer Father Family Status - Relation Status Age at Mother Father Level of Service:27248 NE OFFICE/OUTPATIENT ESTABLISHED LOW MDM 20 MIN Normal [facility] Orders Onlyon 06-11-[id number] Lacey 1960 M Date Provider Department Center 06/11/2024 GEORGE PALENCIA [facility] Family History Problem Relation Age of Onset Cancer Mother Diabetes Mother Coronary artery disease Father Stroke Father Cancer Father Family Status - Relation Status Age at Mother Father Normal [facility] Erythrocyte distribution wid th Auto (RBC) [Ratio]on 06-03-2024 Erythrocyte distribution width (RBC) [Ratio] 13.3 % 11.0-15.0 [facility] Estimated glomerular filtrat ion rate (GFR) non- Americanon 06-03-2024 GFR/1.73 sq M.predicted among non-blacks MDRD (S/P/Bld) [Vol rate/Area] mL/min/{1.73_m2} >=60 [facility] Hematocrit Auto (Bld) [Volum e fraction]on 06-03-2024 Hematocrit (Bld) [Volume fraction] 45.4 % 42.0-54.0 [facility] Hemoglobin [Mass/volume] in Bloodon 06-03-2024 Hemoglobin (Bld) [Mass/Vol] 15.4 g/dL 14.0-18.0 [facility] Laboratory - Chemistry and C hemistry - challengeon 06-03-2024 Albumin [Mass/Vol] 3.8 g/dL 3.4-5.0 [facility] Calcium [Mass/Vol] 8.9 mg/dL 8.5-10.1 [facility] Chloride [Moles/Vol] 101 mmol/L 98-107 [facility] CO2 [Moles/Vol] 31.2 mmol/L 21.0-32.[address] [facility] Creatinine [Mass/Vol] 1.06 mg/dL 0.70-1.30 [facility] GFR/1.73 sq M.predicted MDRD (S/P/Bld) [Vol rate/Area] mL/min/{1.73_m2} >=60 [facility] Glucose [Mass/Vol] 91 mg/dL 74-106 [facility] Magnesium [Mass/Vol] 1.9 mg/dL 1.8-2.4 [facility] Potassium [Moles/Vol] 3.9 mmol/L 3.5-5.1 [facility] Sodium [Moles/Vol] 138 mmol/L 136-145 [facility] Urate [Mass/Vol] 4.7 mg/dL 3.5-7.[address] [facility] Urea nitrogen [Mass/Vol] 18.0 mg/dL 7.0-18.0 [facility] Urea nitrogen/Creatinine [Mass ratio] 17.0 mg/mg [facility] Bilirubin Ql (U) Negative NEGATIVE [facility] Glucose (U) [Mass/Vol] Negative NEGATIVE [facility] Ketones Ql (U) Negative NEGATIVE [facility] pH (U) 5.5 [pH] 5.0-9.0 [facility] Specific gravity (U) [Rel density] 1.020 1.005-1.025 [facility] Urobilinogen Qn (U) 0.2 {Brenda'U}/dL 0.2-1.0 [facility] Laboratory - Specimen inform ationon 06-03-2024 Appearance (U) CLEAR CLEAR [facility] Color (U) YELLOW YELLOW [facility] Laboratory - Urinalysison Leukocyte esterase Test strip Ql (U) Negative NEGATIVE [facility] Mucus Ql (Urine sed) NONE SEEN NONE SEEN [facility] Nitrite Ql (U) Negative NEGATIVE [facility] Protein (U) [Mass/Vol] 6.9 mg/dL <=11.9 [facility] Protein Ql (U) Negative NEG/TRACE [facility] Leukocytes [#/volume] correc kim for nucleated erythrocytes in Blood by Automated counon 06-03-2024 WBC corrected for nucl RBC Auto (Bld) [#/Vol] 3.2 10 3/uL Low 4.0-11.0 [facility] MCH Auto (RBC) [Entitic mass ]on 06-03-2024 MCH (RBC) [Entitic mass] 29.7 pg 25.9-34.0 [facility] MCHC Auto (RBC) [Mass/Vol]on 06-03-2024 MCHC (RBC) [Mass/Vol] 33.9 g/dL 29.9-35.2 [facility] MCV Auto (RBC) [Entitic vol] on 06-03-2024 MCV (RBC) [Entitic vol] 87.5 fL 80.0-94.0 [facility] No Panel Informationon 06-03 25-Hydroxy Vitamin D Total 74.8 ng/mL [facility] Comment on above: <20 ng/mL Vit D defi cient20-<30 ng/mL Vit D [id number] ng/mL Vit D sufficient>100 ng/mL Potential Toxicity Parathyroid Hormone (Intact) 34 pg/mL 15-65 [facility] Comment on above: Performed at: - [address] [id number] Director: Aleks Ferreira PhD, Phone: [phone] Phosphorus Level 2.9 mg/dL 2.6-4.[address] [facility] Urine Bacteria NONE SEEN #/HPF NONE SEEN [facility] Urine Occult Blood Negative NEGATIVE [facility] Urine Random Creatinine 107.55 mg/dL 20.00-300.00 [facility] Urine RBC NONE SEEN #/HPF 0-2 [facility] Urine Squamous Epithelial Cells RARE #/LPF NONE/RARE [facility] Urine WBC NONE SEEN #/HPF NONE SEEN [facility] Platelet mean volume Auto (B ld) [Entitic vol]on 06-03-2024 Platelet mean volume (Bld) [Entitic vol] 9.5 fL 9.5-13.5 [facility] Platelets Auto (Bld) [#/Vol] on 06-03-2024 Platelets (Bld) [#/Vol] 126 10 3/uL Low 150-450 [facility] RBC Auto (Bld) [#/Vol]on RBC (Bld) [#/Vol] 5.19 10 6/uL 4.70-6.10 [facility] Serum or plasma anion gap de terminationon 06-03-2024 Anion gap [Moles/Vol] 9.7 mmol/L [facility] Urine protein/creatinine rat ioon 06-03-2024 Protein/Creatinine (U) [Ratio] 0.06 [facility] Reminderson 05-30-2024 Reminders Reminders From: Melissa Nash LPN To: N - Clinical; Sent: 05/30/2024 15:23:45 EDT Show up: 04/28/2034 07:00:00 EDT Subject: colonoscopy recall Due Date/Time: 05/29/2034 07:00:00 EDT Reminder/Recall Patient due for screening colonoscopy 05/29/2034. Normal [facility] Ambulatory Visit Summaryon 0 05-07-2024 Ambulatory Visit Summary Ambulatory Visit Summary ABHIJITVIANEY Dayna :1960 Visit Date:05/07/2024 Ambulatory Visit Instructions Your [...] Appointments Monday 10:15 AM EST With: Vianey SILVERMAN MD Where: [facility] [id number]- Medications What How Much When Instructions Unchanged [...] for choosing us for your care. Normal [facility] 36on 04-11-2024 36 Patient needs scheduled for colonoscopy and would like to know if he can hold Eliquis prior. Please advise. Thanks! Normal [facility] Luther 04-05-2024 L Specimen: [id number] Received: 04/08/24 Status: ROYER Sotelo Num: [id number] Spec Type: Impression Subm Dr: Tracy Griffin MD Tissues: PATHPER Procedures: PATHREVIEW Age/ Patient Sex Location Account Attending Physician EdieVianey arboleda 64/M [facility] [id number] Tracy Griffin MD SPEC NUM: [id number] RECD: 04/08/24 STATUS: ROYER SOTELO NUM: [id number] LADONNA: 04/05/[address]: Tracy Griffin MD ENTERED: 04/08/[address]: Odell Dillard SPEC TYPE: Impression DEPT: [facility] ENTERED BY: [id number] RECV BY: [id number] ORDERED: PATHREVIEW ORDERED: PATHREVIEW Pathologist Review Abnormal [...] autoimmune disease, again requiring clinical correlations CPT: 25689 ---- ---- Specimen: [id number] Received: 04/08/24 Status: ROYER Sotelo Num: [id number] Spec Type: Impression Subm Dr: Tracy Griffin MD Tissues: PATHPER Procedures: PATHREVIEW ---- Patient: Vianey Lacey [id number] (Continued) ---- Signed (signature on file) Vel-Perry Morrison MD 04/09/24 1024 Normal [facility] 02-07-2024 36 Blood pressure meds read outs: @ 5:45pm 176/91. Heart rate. 54 @ 10:30 pm 160/90 Heart rate. 54 @ 10:45am 154/98. Heart rate 46 @ 6:40 pm 163/91. Heart rate 59 @ 10:00 am 164/88. Heart rate 57 @ 6:30 pm 176/93 Heart rate 68 @ 10:15am 161/95 Heart rate 48 December @ 6:45pm 165/78 Heart rate 62 @ 10:40pm 128/72 Heart rate 55 @ 10:40am 151/85 Heart rate 50 @ 3:15pm 162/88 Heart rate 53 @ 11:00am 158/86 heart rate 55 December 30 at 5:30pm 172/89 heart rate 62 @ 11:30pm 171/90, heart rate 5 December- @11:30am 152/82, heart rate 51 , @10:40pm 166/85 heart rate 55 @ 11:10pm 155/81 heart rate 58 @ 8:50am 153/83 heart rate 56 @ 6:45pm 143/78 heart rate 59 @ 11:45 pm 144/70 heart rate 57 January 02 @ 11:00am 143/79 heart rate 58 Francie 10 @ 7:00 pm 136/77 heart rate61 January [...] 144/80 heart rate56 Thank you, [facility] Office Visiton 02-07-2024 Follow-up visit [id number] [address] Lacey 1960 M [facility] Provider Department Center 02/07/2024 GEORGE PALENCIA Family History Problem Relation Age of Onset Cancer Mother Diabetes Mother Coronary artery disease Father Stroke Father Cancer Father Family Status - Relation Status Age at Mother Father Level of Service:18438 NE OFFICE/OUTPATIENT ESTABLISHED MOD MDM [address] [facility] Office Visiton 12-26-2023 Follow-up visit [id number] [address] Lacey 1960 M Date Provider Department Center 12/26/2023 JEOVANNY CARSON Family History Problem Relation Age of Onset Cancer Mother Diabetes Mother Coronary artery disease Father Stroke Father Cancer Father Family Status - Relation Status Age at Mother Father Level of Service:27262 NE OFFICE/OUTPATIENT ESTABLISHED LOW MDM 20 MIN Reason for Visit and Comments: Follow-up [[id number]] [facility] 36on 11-24-2023 36 Questioned rather to [...] all other meds including antacids. [facility] [facility] Telephoneon 11-24-[id number] Lacey 1960 M Date Provider Department Center 11/24/20231986-TAYLOR PEREZ [facility] Family History Problem Relation Age of Onset Cancer Mother Diabetes Mother Coronary artery disease Father Stroke Father Cancer Father Family Status - Relation Status Age at Mother Father Reason for Visit and Comments: week post ablation f/u [Other] Normal [facility] 30on 11-17-2023 30 Daily Case Managemen t Update Multidisciplinary rounds have been completed. Barriers to Discharge: Pending clinical course and improvement in clinical condition. Stroke alert called for patient and underwent CTA head/neck and CT of head. Await Cardiology recommendations. Plan for home no needs upon discharge when medically ready. Diet: Dietary Orders (From admission, onward) Start Ordered 11/16/231825 Regular Diet Heart Healthy/HTN, CABG,Stroke, (2gNA, low fat, low cholesterol) Diet effective now Question Answer Comment Room Service? Yes Fat restriction: Heart Healthy/HTN, CABG,Stroke, (2gNA, low fat, low cholesterol) 11/16/23 182 Physician Expected Discharge Date: 11/17/2023 Discharge Delays: PT Six Click Score: 24 OT Six Click Score: PT Recommendations: OT Recommendations: New Consults: Normal [facility] 30 The patient is Moderately Stable - [...] facility with appropriate resources Outcome: Progressing Normal [facility] BASIC METABOLIC PANELon 10-27 Anion gap [Moles/Vol] 8 mmol/L Normal 7-20 [facility] Comment on above: Performed By: #### L AB15 #### [facility] (BEAKER) [address] [place] [address] Calcium [Mass/Vol] 8.6 mg/dL Normal 8.6-10.3 [facility] Comment on above: Performed By: #### L AB15 #### [facility] ([facility] [address] [place] [address] Chloride [Moles/Vol] 102 mmol/L Normal 98-107 [facility] Comment on above: Performed By: #### L AB15 #### [facility] ([facility]) [address] [place] [address] CO2 [Moles/Vol] 31 mmol/L Normal 21-31 [facility] Comment on above: Performed By: #### L AB15 #### [facility] ([facility]) [address] [place] [address] Creatinine [Mass/Vol] 1.17 mg/dL Normal 0.70-1.30 [facility] Comment on above: Performed By: #### L AB15 #### [facility] ([facility]) [address] [place] [address] GLOMERULAR FILTRATION RATE ML/MIN/1.73 SQ M.PREDICTED 69.6 mL/min/1.73m*2 Normal >60.0 [facility] Comment on above: Result Comment: The [facility]???s estimated glomerular filtration rate (eGFR) [...] individuals. Performed By: #### L AB15 #### [facility] ([facility]) [address] [place] [address] Glucose [Mass/Vol] 95 mg/dL Normal 70-100 [facility] Comment on above: Performed By: #### L [id number] #### [facility] [address] [place] [address] Potassium [Moles/Vol] 3.8 mmol/L Normal 3.5-5.1 [facility] Comment on above: Performed By: #### L AB15 #### [facility] ([facility]) [address] [place] [address] Sodium [Moles/Vol] 137 mmol/L Normal 136-145 [facility] Comment on above: Performed By: #### L AB15 #### [facility] ([facility]) [address] [place] [address] Urea nitrogen [Mass/Vol] 19 mg/dL Normal 7-25 [facility] Comment on above: Performed By: #### L AB15 #### [facility] ([facility]) [address] [place] [address] UREA NITROGEN/CREATININE (MASS RATIO) IN SER/PLAS 16.2 Normal [facility] Comment on above: Performed By: #### L AB15 #### [facility] ([facility]) [address] [place] [address] CBCon 11-17-2023 Erythrocyte distribution width (RBC) [Ratio] 13.7 % Normal 11.5-15.0 [facility] Comment on above: Performed By: #### L [id number] #### [facility] ([facility]) [address] [place] [address] ERYTHROCYTE MEAN CORPUSCULAR HEMOGLOBIN CONCENTRATION (G/DL) BY AUTOMATED 34.7 g/dL Normal 32.0-35.0 [facility] Comment on above: Performed By: #### L [id number] #### [facility] ([facility]) [address] [place] [address] Hematocrit (Bld) [Volume fraction] 40.3 % Normal 39.0-55.0 [facility] Comment on above: Performed By: #### L [id number] #### [facility] [address] [place] [address] Hemoglobin (Bld) [Mass/Vol] 14.0 g/dL Normal 13.0-17.0 [facility] Comment on above: Performed By: #### L [id number] #### [facility] ([facility]) [address] [place] [address] IMMATURE PLATELET FRACTION % 2.1 % Normal 0.8-6.3 [facility] Comment on above: Performed By: #### L [id number] #### [facility] ([facility]) [address] [place] [address] MCH (RBC) [Entitic mass] 30.4 pg Normal 27.0-33.0 [facility] Comment on above: Performed By: #### L [id number] #### [facility] ([facility]) [address] [place] [address] MCV (RBC) [Entitic vol] 87.4 fL Normal 82.0-98.0 [facility] Comment on above: Performed By: #### L [id number] #### [facility] ([facility]) [address] [place] [address] PLATELETS (10*3/UL) IN BLOOD AUTOMATED COUNT 122 10*3/uL Low 150-400 [facility] Comment on above: Performed By: #### L [id number] #### [facility] ([facility]) [address] [place] [address] RBC (Bld) [#/Vol] 4.61 10*6/uL Normal 4.20-5.70 [facility] Comment on above: Performed By: #### L [id number] #### [facility] ([facility]) [address] [place] [address] WBC (Bld) [#/Vol] 6.76 10*3/uL Normal 4.00-10.60 [facility] Comment on above: Performed By: #### L [id number] #### [facility] ([facility]) [address] [place] [id number] CONSULTon 11-17-2023 CONSULT Reason For Consult Stroke alert Referring Provider: Columba, Cardiology DATA MIGRATION CONSULTANT History Of Present Illness ODILON Lacey is [...] function. He is also recently seen a boiler out. They are weaning of amantadine which was started in the past after a closed head injury. On Nov 16 Patient underwent ablation for atrial fibrillation. A JAMIN was performed in the Imaging Technician without complications Anesthesia Pharyngeal anesthesia with viscous [...] lasted 10 minutes and resolved spontaneously. Cardiology DATA MIGRATION CONSULTANT called a stroke alert. Pt was in [...] for 90 days. 11/15/2023 vitamin B complex 637-0-244-2-2 mg/mL injection Inject into the shoulder, thigh, [...] 30 mL/hr intravenous Continuous 30 mL/hr at 11/16/238 liothyronine 12.5 mcg oral q AM pantoprazole [...] 36.5 ???C (more content not included)... Normal [facility] CT HEAD WO IV CONTRASTon CT HEAD [...] reasonably achievable. Electronically signed: Apolinar Julian. Normal [facility] CTA HEAD W IV CONTRASTon CTA HEAD [...] malformation of the major vessels of the [place]. Mild calcified plaque without stenosis of bilateral intracranial internal carotid arteries. IMPRESSION: No evidence for high-grade stenosis or occlusion of the major vessels of the [place]. Electronically signed: Apolinar Julian. Normal [facility] CTA NECK W IV CONTRASTon CTA NECK [...] concurrent physician supervision and reviewed. The [place] Symptomatic Carotid Endarterectomy Trial (NASCET) method for [...] reasonably achievable Electronically signed: Apolinar Julian. Normal [facility] DSon 11-17-2023 DS -- Attestation signed by [...] Commonly known as: Flomax vitamin B complex 498-7-418-2-2 mg/mL injection Notes to patient: Take as directed. STOP taking these medications carvedilol 6.25 mg tablet Commonly known as: Coreg Where to Get Your Medications These medications were sent to [facility] - [place], [place] - [address], [facility] [address] famotidine 20 mg tablet levothyroxine 150 mcg [...] Skin is (more content not included)... Normal [facility] HEMOGLOBIN A1Con 11-17-2023 Glucose [Mass/Vol] 108 mg/dL Normal [facility] Comment on above: Performed By: #### L AB90 #### [facility] (BEAKER) [address] [place] [address] HbA1c (Bld) [Mass fraction] 5.4 % Normal 4.0-6.0 [facility] Comment on above: Performed By: #### L AB90 #### [facility] (BEAKER) [address] [place] [address] LIPID PANELon 11-17-2023 CHOL/HDL 4.7 mg/dL Normal [facility] Comment on above: Performed By: #### L [id number] #### [facility] ([facility]) [address] [place] [address] Cholesterol [Mass/Vol] 154 mg/dL Normal 120-200 [facility] Comment on above: Performed By: #### L [id number] #### [facility] ([facility]) [address] [place] [address] Magnesium [Mass/Vol] 138 mg/dL Normal 40-149 [facility] Comment on above: Result Comment: TRIG LYCERIDE REFERENCE RANGE: 20 YEARS AND OLDER CARDIOVASCULAR RISK LESS THAN 150 mg/dL LOW RISK 150 TO 199 mg/dL BORDERLINE RISK 200 mg/dL AND GREATER HIGH RISK Performed By: #### L [id number] #### [facility] [address] [place] [address] Magnesium [Mass/Vol] 93 mg/dL Normal 0-160 [facility] Comment on above: Performed By: #### L [id number] #### [facility] (BEAKER) [address] [place] [address] Magnesium [Mass/Vol] 33 mg/dL Normal 23-92 [facility] Comment on above: Performed By: #### L [id number] #### [facility] (BEAKER) [address] [place] [address] NON HDL CHOL. (LDL+VLDL) 121 Normal [facility] Comment on above: Performed By: #### L [id number] #### [facility] (BEAKER) [address] [place] [address] TOTAL VLDL-C 28 mg/dL Normal 0-40 [facility] Comment on above: Performed By: #### L AB18 #### [facility] ([place]) [address] [place] [id number] MR BRAIN WO CONTRASTon 11-17 MR BRAIN [...] infarction. Electronically signed: Mahesh Ocampo. [facility] Orders Onlyon 11-17-[id number] Lacey 1960 M Date Provider Department Center 11/17/2023 120-BITA, JERI [facility]. Family History Problem Relation Age of Onset Cancer Mother Diabetes Mother Coronary artery disease Father Stroke Father Cancer Father Family Status - Relation Status Age at Mother Father Normal [facility] 30on 11-16-2023 30 Problem: Pain - Adul [...] make progress toward the following goals. Normal [facility] HPon 11-16-2023 [facility] Electrophysiology Consult Note Reason for visit: Afib [...] function. He is also recently seen a boiler out. They are weaning of amantadine which was [...] route for 90 days. vitamin B complex 812-2-676-2-2 mg/mL injection Refill(s) 0 No current facility-administered [...] Musculoskeletal Ins (more content not included)... Normal [facility] NURSNOTEon 11-16-2023 PHUONG Camp Coordinator enters [facility] room around 1950 to assess his right groin cath site, and notices that the site is oozing. Site is still soft, no hematoma suspected. Camp Coordinator called cardiology to notify them of the situation. Cardiology would like the patient to lay flat for another hour, and to hold his eliquis for an hour. Rn also held pressure for 10 minuets. Camp Coordinator will keep cardiology updated on the situation. Normal [facility] POCT GLUCOSE METER UNSOLICIT ED RESULTSon 11-16-2023 Glucose [Mass/Vol] 88 mg/dL Normal 70-105 [facility] Comment on above: Order Comment: Waive d Testing in the ED is performed under the ED CLIA certificate #[id number]. Result Comment: asor ia3 Performed By: #### L [id number] #### [facility] (BEAKER) [address] [place] [address] PROTIME-INRon 11-16-2023 INR IN PPP BY COAGULATION ASSAY 1.11 High 0.90-1.10 [facility] Comment on above: Result Comment: ACCC P [...] CHEST 1995;108:231S-246S. 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 Do not wear perfume, make-up, nail citizen of [place], or lotions on the day of your [...] need to make any changes, please call [phone]. Notify your surgeon if you develop any illness such as a cold, cough, fever, sore throat or vomiting between now and your surgery. Thank you for entrusting us with your care. [facility] Surgical Services Team Normal [facility] $ Large Joint Injection: R aric fang 11-02-2023 Osmin Anthony MD 11/02/2023 11:03 [...] with betadine and alcohol.). MANUALLY TRANSCRIBED RESULTS [facility] [address] [facility] Office Visiton 10-30-2023 Follow-up visit [id number] aLne Lacey 1960 M Date Provider Department Center 10/30/2023 1596-[facility]RA [facility] Family History Problem Relation Age of Onset Cancer Mother Diabetes Mother Coronary artery disease Father Stroke Father Cancer Father Family Status - Relation Status Age at Mother Father Level of Service:69356 NE OFFICE/OUTPATIENT ESTABLISHED MOD MDM 30 MIN Normal [facility] Physician Referralon 024 Physician Referral [id number] Normal [facility] Lab Reportson 10-17-2023 Lab Reports [id number] TIFF Normal [facility] Ambulatory Visit Summaryon 0 10-16-2023 Ambulatory Visit Summary ABHIJIT VIANEY Mcintosh :1960 Visit Date:10/16/2023 Ambulatory Visit Instructions Your Diagnosis BPH with urinary obstruction Hypogonadism male Urge incontinence ED (erectile dysfunction) Tests Performed Urnls Dip Stick Auto w/o Microscopy POC [id number] Your Care Team Attending Physician - Vianey [...] Appointments Monday 10:15 AM EST With: Vianey SILVERMAN MD Where: [facility] Patient Educationon 10-16-19 24 Patient Education [...] provider. Document Revised: 01/20/2022 Document Reviewed: 01/20/2022 [employer] Patient Education ? 2022 [employer] Reginald [facility] Urology Office/Clinic Noteon 10-16-2023 Urology Office/Clinic Note [...] year [facility] [address], [place] [id number]- Additional Instructions: w/PSA Patient Education Kejayna Contreras I, Megan Brunson , personally scribed for Dr. Silverman on 10/16/2023 14:05:07. . Documentation recorded by the scribe, Megan Brunson, accurately reflects the services(s) I performed and decisions made by me. Problem List/Past Medical History Ongoing BPH with urinary obstruction ED (erectil (more content not included)... Normal [facility] Comment on above: Result Comment: Elec tronically Signed By: HERRERA PRIETO, Vianey Crawford\.br\Date and Time Signed: 10/16/23 14:10 EST\.br\Electronically Co-Signed By: Megan Brunson\.br\Date and Time Co-Signed: 10/16/23 14:05 EST Letter (Out)on 10-13-2023 Letter (Out) [id number] Lane Lacey 1960 Date Provider Department Center 10/13/2023 None-None [facility] Family History Problem Relation Age of Onset Cancer Mother Diabetes Mother Coronary artery disease Father Stroke Father Cancer Father Family Status - Relation Status Age at Mother Father Normal [facility] Orders Onlyon 09-27-[id number] Lacey 1960 Date Provider Department Center 09/27/2023 Sawyer8-ISHMAEL SY MAXWELL Nunez Family History Problem Relation Age of Onset Cancer Mother Diabetes Mother Coronary artery disease Father Stroke Father Cancer Father Family Status - Relation Status Age at Mother Father Normal [facility] Prep for Procedureon 024 Prep for Procedure [id number] [address] Lacey 1960 Date Provider Department Center 09/27/2023 1987-TAYLOR PEREZ [facility] Family History Problem Relation Age of Onset Cancer Mother Diabetes Mother Coronary artery disease Father Stroke Father Cancer Father Family Status - Relation Status Age at Mother Father Normal [facility] Telephone Encounteron 2022 Cardroom Manager Authentication Interface Message Text Patient has not been seen by this specialist in more than 1 year. Please contact patient to schedule office visit. Thank you Normal [facility] Office Visiton 09-08-2023 Follow-up visit [id number] EdienkechiLane Mcintosh 1960 M [facility] Provider Department Center 09/08/2023 Demi-JEOVANNY SCOTT [facility] Family History Problem Relation Age of Onset Cancer Mother Diabetes Mother Coronary artery disease Father Stroke Father Cancer Father Family Status - Relation Status Age at Mother Father Level of Service:62382 NE OFFICE/OUTPATIENT NEW MODERATE MDM 45 MINUTES Reason for Visit and Comments: Follow-up [[id number]] - Seen Geroge Loza 08/10/2023 Normal [facility] Office Visiton 08-10-2023 Follow-up visit [id number] EdienkechiLane Mcintosh 1960 M [facility] Provider Department Center 08/10/2023 271-GEORGE LOZA Family History Problem Relation Age of Onset Cancer Mother Diabetes Mother Coronary artery disease Father Stroke Father Cancer Father Family Status - Relation Status Age at Mother Father Level of Service:92766 NE OFFICE/OUTPATIENT ESTABLISHED MOD MDM 30-39 MIN Normal [facility] Orders Onlyon 08-10-[id number] Lacey 1960 [facility] Provider Department Center 08/10/2023 NEO TAYLOR [facility] Family History Problem Relation Age of Onset Cancer Mother Diabetes Mother Coronary artery disease Father Stroke Father Cancer Father Family Status - Relation Status Age at Mother Father Normal [facility] Patient Educationon 06-12-20 Patient Education [...] Follow these instructions at home: ? Take gwfg-gwx-[id number] and prescription medicines only as told by [...] 05/13/2021 Document (more content not included)... Normal [facility] Urology Office/Clinic Noteon 06-12-2023 Urology [...] Follow-up With When Contact Information HERRERA PRIETO, iVaney Crawford, DARA In 6 months [facility] [address] [place] [address]- [id number] Additional Instructions: w/Testosterone Level, PSA and CBC Patient Education Hypogonadism, Male I, Megan Brunson , personally scribed for Dr. Silverman on 06/12/2023 13:19:35. . Documentation recorded by the scribMegan conn, accurately reflects the services(s) I performed [...] 0.4 m (more content not included)... Normal [facility] Comment on above: Result Comment: Elec tronically Signed By: Vianey SILVERMAN MD\.br\Date and Time Signed: 06/12/23 13:23 EDT\.br\Electronically Co-Signed By: Megan Brunson.br\Date and Time Co-Signed: 06/12/23 13:20 EDT CNOVon 04-26-2023 CNOV Office Visit (SPMESH ) VIANEY LACEY ([id number]) 1960 M Date Time Provider Department 04/26/23 11:00 AM [facility] During your visit today, we recorded the [...] palpable masses (more content not included)... Normal [facility] TESTOSTERONE, TOTALon 2022 Testosterone [Mass/Vol] 347 ng/dL Normal 264-916 [facility] Comment on above: Result Comment: Adul t male reference interval is based on a population of healthy nonobese males (BMI <30) between 19 and 39 years old. Brad et.al. JCEM 2017,102;3083-7279. PMID: [id number]. Performed By: #### T ESTTOT #### [facility] [address] [place] [address] Dr. Reuben Morrison XR TSPINE 3 VIEWSon [...] spine, not appreciably changed. Electronically authenticated by: ALFREDTIO LOAIZA Date: 2022-11-18 16:11 Normal [facility] TESTOSTERONE, TOTALon 2022 Testosterone [Mass/Vol] 993 ng/dL Critically high 264-916 [facility] Comment on above: Result Comment: Adul t male reference interval is based on a population of healthy nonobese males (BMI <30) between 19 and 39 years old. Brad et.al. JCEM 2017,102;7471-5378. PMID: [id number]. Performed By: #### T ESTTOT #### [facility] [address] [place] [address] Dr. Reuben Morrison CBC AUTO DIFFon 06-15-2022 BASO # 0.0 103/ul Normal 0.0-0.1 [facility] Comment on above: Performed By: #### C BC #### [facility] [address] [place] [address] Dr. Reuben Morrison Basophils/100 WBC (Bld) 0.4 % Normal 0.2-2.0 [facility] Comment on above: Performed By: #### C BC #### [facility] [address] [place] [address] Dr. Reuben Morrison EO # 0.1 103/ul Normal 0.0-0.7 [facility] Comment on above: Performed By: #### C BC #### [facility] [address] [place] [address] Dr. Reuben Morrison Eosinophils/100 WBC (Bld) 1.3 % Normal 0.9-7.0 [facility] Comment on above: Performed By: #### C BC #### [facility] [address] [place] [address] Dr. Reuben Morrison Erythrocyte distribution width (RBC) [Ratio] 14.3 % Normal 11.0-15.0 [facility] Comment on above: Performed By: #### C BC #### [facility] [address] [place] [address] Dr. Reuben Morrison Hematocrit (Bld) [Volume fraction] 48.9 % Normal 42.0-54.0 [facility] Comment on above: Performed By: #### C BC #### [facility] [address] [place] [address] Dr. Reuben Morrison Hemoglobin (Bld) [Mass/Vol] 16.6 g/dL Normal 14.0-18.0 [facility] Comment on above: Performed By: #### C BC #### [facility] [address] [place] [address] Dr. Reuben Morrison IG # 0.01 10e3/ul Normal 0.00-0.03 [facility] Comment on above: Performed By: #### C BC #### [facility] [address] [place] [address] Dr. Reuben Morrison IG % 0.2 % Normal 0.0-0.5 [facility] Comment on above: Performed By: #### C BC #### [facility] [facility] [address] [place] [address] Dr. Reuben Morrison LYMPH # 1.1 103/ul Critically low 1.2-3.[address] [facility] Comment on above: Performed By: #### C BC #### [facility] [address] [place] [address] Dr. Reuben Morrison Lymphocytes/100 WBC (Bld) 24.3 % Normal 20.5-60.0 [facility] Comment on above: Performed By: #### C BC #### [facility] [address] [place] [address] Dr. Reuben Morrison MANUAL DIFF REQ NO Normal [facility] Comment on above: Performed By: #### C BC #### [facility] [address] [place] [address] Dr. Reuben Morrison MCH (RBC) [Entitic mass] 29.5 pg Normal 25.9-34.0 [facility] Comment on above: Performed By: #### C BC #### [facility] [address] [place] [address] Dr. Reuben Morrison MCHC (RBC) [Mass/Vol] 33.9 g/dL Normal 29.9-35.2 [facility] Comment on above: Performed By: #### C BC #### [facility] [address] [place] [address] Dr. Reuben Morrison MCV (RBC) [Entitic vol] 86.9 fL Normal 80.0-94.0 [facility] Comment on above: Performed By: #### C BC #### [facility] [address] [place] [address] Dr. Reuben Morrison MONO # 0.5 103/ul Normal 0.3-0.8 [facility] Comment on above: Performed By: #### C BC #### [facility] [address] [place] [address] Dr. Reuben Morrison Monocytes/100 WBC (Bld) 9.6 % Normal 1.7-12.0 [facility] Comment on above: Performed By: #### C BC #### [facility] [address] [place] [address] Dr. Reuben Morrison NEUT # 3.0 103/ul Normal 1.4-6.5 [facility] Comment on above: Performed By: #### C BC #### [facility] [address] [place] [address] Dr. Reuben Morrison Neutrophils/100 WBC (Bld) 64.2 % Normal 43.0-75.0 [facility] Comment on above: Performed By: #### C BC #### [facility] [address] [place] [address] Dr. Reuben Morrison Platelet mean volume (Bld) [Entitic vol] 9.7 fL Normal 9.5-13.5 [facility] Comment on above: Performed By: #### C BC #### [facility] [address] [place] [address] Dr. Reuben Morrison PLT 130 103/ul Critically low 150-450 [facility] Comment on above: Result Comment: plts . appear slightly decreased Performed By: #### C BC #### [facility] [address] [place] [address] Dr. Reuben Morrison RBC 5.63 106/ul Normal 4.70-6.10 [facility] Comment on above: Performed By: #### C BC #### [facility] [address] [place] [address] Dr. Reuben Morrison WBC 4.7 103/ul Normal 4.0-11.0 [facility] Comment on above: Performed By: #### C BC #### [facility] [address] [place] [address] Dr. Reuben Morrison TESTOSTERONE, TOTALon 2021 Testosterone [Mass/Vol] 404 ng/dL Normal 264-916 [facility] Comment on above: Result Comment: Adul t male reference interval is based on a population of healthy nonobese males (BMI <30) between 19 and 39 years old. Brad et.al. JCEM 2017,102;6224-3630. PMID: [id number]. Performed By: #### T ESTTOT #### [facility] [address] [place] [address] Dr. Reuben Morrison CBC AUTO DIFFon 04-27-2022 BASO # 0.0 103/ul Normal 0.0-0.1 [facility] Comment on above: Performed By: #### T ESTTOT #### [facility] [address] [place] [address] Dr. Reuben Morrison Basophils/100 WBC (Bld) 1.0 % Normal 0.2-2.0 [facility] Comment on above: Performed By: #### T ESTTOT #### [facility] [address] [place] [address] Dr. Reuben Morrison EO # 0.1 103/ul Normal 0.0-0.7 [facility] Comment on above: Performed By: #### T ESTTOT #### [facility] [address] [place] [address] Dr. Reuben Morrison Eosinophils/100 WBC (Bld) 1.8 % Normal 0.9-7.0 [facility] Comment on above: Performed By: #### T ESTTOT #### [facility] [address] [place] [address] Dr. Reuben Morrison Erythrocyte distribution width (RBC) [Ratio] 14.0 % Normal 11.0-15.0 [facility] Comment on above: Performed By: #### T ESTTOT #### [facility] [address] [place] [address] Dr. Reuben Morrison Hematocrit (Bld) [Volume fraction] 47.3 % Normal 42.0-54.0 [facility] Comment on above: Performed By: #### T ESTTOT #### [facility] [address] [place] [address] Dr. Reuben Morrison Hemoglobin (Bld) [Mass/Vol] 16.2 g/dL Normal 14.0-18.0 [facility] Comment on above: Performed By: #### T ESTTOT #### [facility] [address] [place] [address] Dr. Reuben Morrison IG # 0.01 10e3/ul Normal 0.00-0.03 [facility] Comment on above: Performed By: #### T ESTTOT #### [facility] [address] [place] [address] Dr. Reuben Morrison IG % 0.3 % Normal 0.0-0.5 [facility] Comment on above: Performed By: #### T ESTTOT #### [facility] [address] [place] [address] Dr. Reuben Morrison LYMPH # 1.1 103/ul Critically low 1.2-3.[address] [facility] Comment on above: Performed By: #### T ESTTOT #### [facility] [address] [place] [address] Dr. Reuben Morrison Lymphocytes/100 WBC (Bld) 26.6 % Normal 20.5-60.0 [facility] Comment on above: Performed By: #### T ESTTOT #### [facility] [address] [place] [address] Dr. Reuben Morrison MANUAL DIFF REQ NO Normal [facility] Comment on above: Performed By: #### T ESTTOT #### [facility] [address] [place] [address] Dr. Reuben Morrison MCH (RBC) [Entitic mass] 29.5 pg Normal 25.9-34.0 [facility] Comment on above: Performed By: #### T ESTTOT #### [facility] [address] [place] [address] Dr. Reuben Morrison MCHC (RBC) [Mass/Vol] 34.2 g/dL Normal 29.9-35.2 [facility] Comment on above: Performed By: #### T ESTTOT #### [facility] [address] [place] [address] Dr. Reuben Morrison MCV (RBC) [Entitic vol] 86.2 fL Normal 80.0-94.0 [facility] Comment on above: Performed By: #### T ESTTOT #### [facility] [address] [place] [address] Dr. Reuben Morrison MONO # 0.4 103/ul Normal 0.3-0.8 [facility] Comment on above: Performed By: #### T ESTTOT #### [facility] [address] [place] [address] Dr. Reuben Morrison Monocytes/100 WBC (Bld) 9.0 % Normal 1.7-12.0 [facility] Comment on above: Performed By: #### T ESTTOT #### [facility] [address] [place] [address] Dr. Reuben Morrison NEUT # 2.5 103/ul Normal 1.4-6.5 [facility] Comment on above: Performed By: #### T ESTTOT #### [facility] [address] [address] [address] Reuben Morrison Neutrophils/100 WBC (Bld) 61.3 % Normal 43.0-75.0 [facility] Comment on above: Performed By: #### T ESTTOT #### [facility] [address] [address] [address] Reuben Morrison Platelet mean volume (Bld) [Entitic vol] 9.6 fL Normal 9.5-13.5 [facility] Comment on above: Performed By: #### T ESTTOT #### [facility] [address] [address] [address] Reuben Morrison PLT 128 103/ul Critically low 150-450 [facility] Comment on above: Performed By: #### T ESTTOT #### [facility] [address] [address] [address] Reuben Morrison RBC 5.49 106/ul Normal 4.70-6.10 [facility] Comment on above: Performed By: #### T ESTTOT #### [facility] [address] [address] [address] Reuben Morrison WBC 4.0 103/ul Normal 4.0-11.0 [facility] Comment on above: Performed By: #### T ESTTOT #### [facility] [address] [address] [address] Reuben Morrison INSULINon 03-08-2022 Insulin 4.3 uIU/mL Normal 2.6-24.9 [facility] Comment on above: Performed By: #### T ESTTOT #### [facility] [address] [address] [address] Reuben Morrison TESTOSTERONE, TOTALon 2021 Testosterone [Mass/Vol] ng/dL Critically high 264-916 [facility] Comment on above: Result Comment: Adul t male reference interval is based on a population of healthy nonobese males (BMI <30) between 19 and 39 years old. stephania Salinas.al. JCEM 2017,102;9910-6110. PMID: [id number]. Performed By: #### T ESTTOT #### [facility] [address] [address] [address] Reuben Morrison CBC AUTO DIFFon 03-07-2022 BASO # 0.1 103/ul Normal 0.0-0.1 [facility] Comment on above: Performed By: #### C BC #### [facility] [address] [place] [address] Dr. Reuben Morrison Basophils/100 WBC (Bld) 1.4 % Normal 0.2-2.0 [facility] Comment on above: Performed By: #### C BC #### [facility] [address] [place] [address] Dr. Reuben Morrison EO # 0.1 103/ul Normal 0.0-0.7 [facility] Comment on above: Performed By: #### C BC #### [facility] [address] [place] [address] Dr. Reuben Morrison Eosinophils/100 WBC (Bld) 1.4 % Normal 0.9-7.0 [facility] Comment on above: Performed By: #### C BC #### [facility] [address] [place] [address] Dr. Reuben Morrison Erythrocyte distribution width (RBC) [Ratio] 14.7 % Normal 11.0-15.0 [facility] Comment on above: Performed By: #### C BC #### [facility] [address] [place] [address] Dr. Reuben Morrison Hematocrit (Bld) [Volume fraction] 49.8 % Normal 42.0-54.0 [facility] Comment on above: Performed By: #### C BC #### [facility] [address] [place] [address] Dr. Reuben Morrison Hemoglobin (Bld) [Mass/Vol] 16.4 g/dL Normal 14.0-18.0 [facility] Comment on above: Performed By: #### C BC #### [facility] [address] [place] [address] Dr. Reuben Morrison IG # 0.01 10e3/ul Normal 0.00-0.03 [facility] Comment on above: Performed By: #### C BC #### [facility] [address] [place] [address] Dr. Reuben Morrison IG % 0.3 % Normal 0.0-0.5 [facility] Comment on above: Performed By: #### C BC #### [facility] [address] [place] [address] Dr. Reuben Morrison LYMPH # 0.9 103/ul Critically low 1.2-3.8 [facility] Comment on above: Performed By: #### C BC #### [facility] [address] [place] [address] Dr. Reuben Morrison Lymphocytes/100 WBC (Bld) 24.7 % Normal 20.5-60.0 [facility] Comment on above: Performed By: #### C BC #### [facility] [address] [place] [address] Dr. Reuben Morrison MANUAL DIFF REQ NO Normal [facility] Comment on above: Performed By: #### C BC #### [facility] [address] [place] [address] Dr. Reuben Morrison MCH (RBC) [Entitic mass] 28.9 pg Normal 25.9-34.0 [facility] Comment on above: Performed By: #### C BC #### [facility] [address] [place] [address] Dr. Reuben Morrison MCHC (RBC) [Mass/Vol] 32.9 g/dL Normal 29.9-35.2 [facility] Comment on above: Performed By: #### C BC #### [facility] [address] [place] [address] Dr. Reuben Morrison MCV (RBC) [Entitic vol] 87.7 fL Normal 80.0-94.0 [facility] Comment on above: Performed By: #### C BC #### [facility] [address] [place] [address] Dr. Reuben Morrison MONO # 0.4 103/ul Normal 0.3-0.8 [facility] Comment on above: Performed By: #### C BC #### [facility] [address] [address] [address] Reuben Morrison Monocytes/100 WBC (Bld) 9.5 % Normal 1.7-12.0 [facility] Comment on above: Performed By: #### C BC #### [facility] [address] [address] [address] Reuben Morrison NEUT # 2.3 103/ul Normal 1.4-6.5 [facility] Comment on above: Performed By: #### C BC #### [facility] [address] [address] [address] Reuben Morrison Neutrophils/100 WBC (Bld) 62.7 % Normal 43.0-75.0 [facility] Comment on above: Performed By: #### C BC #### [facility] [address] [place] [address] Dr. Reuben Morrison Platelet mean volume (Bld) [Entitic vol] 9.8 fL Normal 9.5-13.5 [facility] Comment on above: Performed By: #### C BC #### [facility] [address] [address] [address] Reuben Morrison PLT 149 103/ul Critically low 150-450 [facility] Comment on above: Performed By: #### C BC #### [facility] [address] [place] [address] Dr. Reuben Morrison RBC 5.68 106/ul Normal 4.70-6.10 [facility] Comment on above: Performed By: #### C BC #### [facility] [address] [place] [address] Dr. Reuben Morrison WBC 3.7 103/ul Critically low 4.0-11.[address] [facility] Comment on above: Performed By: #### C BC #### [facility] [address] [place] [address] Dr. Reuben Morrison FREE THYROXINE INDEX T7on FTI 2.50 Normal 1.30-4.50 [facility] Comment on above: Performed By: #### C MP, T7, TSH, LIPID #### [facility] [address] [address] [address] Reuben Morrison T3U 39.0 % Normal 33.0-40.0 [facility] Comment on above: Performed By: #### C MP, T7, TSH, LIPID #### [facility] [address] [place] [address] Dr. Reuben Morrison T4 [Mass/Vol] 6.40 ug/dL Normal 4.50-12.10 [facility] Comment on above: Performed By: #### C MP, T7, TSH, LIPID #### [facility] [address] [address] [address] Reuben Morrison GLYCOHEMOGLOBIN A1Con 2021 ADA RECOMMENDATION SEE BELOW Normal [facility] Comment on above: Result Comment: ADA RECOMMENDED LIMIT 4.0 - 6.0 ADA THERAPEUTIC TARGET < 7.0 ACTION SUGGESTED > 7.0 Performed By: #### T ESTTOT #### [facility] [address] [place] [address] Dr. Reuben Morrison Glucose [Mass/Vol] 105 mg/dL Normal [facility] Comment on above: Performed By: #### T ESTTOT #### [facility] [address] [place] [address] Dr. Reuben Morrison HbA1c (Bld) [Mass fraction] 5.3 % Normal 4.5-6.2 [facility] Comment on above: Performed By: #### T ESTTOT #### [facility] [address] [place] [address] Dr. Reuben Morrison IRONon 03-07-2022 Iron [Mass/Vol] 100.0 ug/dL Normal 65.0-175.0 [facility] Comment on above: Performed By: #### I BLAIR, PSASC, VITB12, VITAD #### [facility] [address] [place] [address] Dr. Reuben Morrison LIPID PROFILEon 03-07-2022 CHOL-HDL RATIO NORM SEE BELOW Normal [facility] Comment on above: Result Comment: 3.3 - 4.4 LOW RISK 4.4 - 7.1 AVERAGE RISK 7.1 - 11.0 MODERATE RISK >11.0 HIGH RISK Performed By: #### C MP, T7, TSH, LIPID #### [facility] [address] [address] [address] Reuben Morrison Cholesterol [Mass/Vol] 157 mg/dL Normal <=200 [facility] Comment on above: Performed By: #### C MP, T7, TSH, LIPID #### [facility] [address] [address] [address] Reuben Morrison Cholesterol in HDL [Mass/Vol] 48 mg/dL Normal 40-60 [facility] Comment on above: Performed By: #### C MP, T7, TSH, LIPID #### [facility] [address] [address] [address] Reuben Morrison Cholesterol in LDL [Mass/Vol] 96.0 mg/dL Normal [facility] Comment on above: Performed By: #### C MP, T7, TSH, LIPID #### [facility] [address] [address] [address] Reuben Morrison Cholesterol.total/C holesterol in HDL [Mass ratio] 3.3 {ratio} Normal [facility] Comment on above: Performed By: #### C MP, T7, TSH, LIPID #### [facility] [address] [address] [address] Reuben Morrison HDL NORMAL > or = 60 mg/dl - LO W CARDIOVASCULAR RISK <40 mg/dl - HIGH CARDIOVASCULAR RISK Normal [facility] Comment on above: Performed By: #### C MP, T7, TSH, LIPID #### [facility] [address] [address] [address] Reuben Morrison LDL CALC NORMAL SEE BELOW Normal [facility] Comment on above: Result Comment: <100 mg/dl OPTIMAL 100 - 129 mg/dl NEAR OR ABOVE OPTIMAL 130 - 159 mg/dl BORDERLINE HIGH 160 - 189 mg/dl HIGH >190 mg/dl VERY HIGH Performed By: #### C MP, T7, TSH, LIPID #### [facility] [address] [address] [address] Reuben Morrison Triglyceride [Mass/Vol] 65 mg/dL Normal <=150 [facility] Comment on above: Performed By: #### C MP, T7, TSH, LIPID #### [facility] [address] [place] [address] Dr. Reuben Morrison VLDL CALC 13.0 mg/dL Normal [facility] Comment on above: Performed By: #### C MP, T7, TSH, LIPID #### [facility] [address] [place] [address] Dr. Reuben Morrison PROF 14(COMP METB)on 022 Albumin [Mass/Vol] 3.7 g/dL Normal 3.4-5.0 [facility] Comment on above: Performed By: #### C MP, T7, TSH, LIPID #### [facility] [address] [place] [address] Dr. Reuben Morrison Albumin/Globulin [Mass ratio] 1.3 {ratio} Normal [facility] Comment on above: Performed By: #### C MP, T7, TSH, LIPID #### [facility] [address] [place] [address] Dr. Reuben Morrison ALP [Catalytic activity/Vol] 53 U/L Normal 46-116 [facility] Comment on above: Performed By: #### C MP, T7, TSH, LIPID #### [facility] [address] [place] [address] Dr. Reuben Morrison ALT [Catalytic activity/Vol] 37 U/L Normal 16-63 [facility] Comment on above: Performed By: #### C MP, T7, TSH, LIPID #### [facility] [address] [place] [address] Dr. Reuben Morrison Anion gap [Moles/Vol] 11.0 mmol/L Normal [facility] Comment on above: Performed By: #### C MP, T7, TSH, LIPID #### [facility] [address] [place] [address] Dr. Reuben Morrison AST [Catalytic activity/Vol] 28 U/L Normal 15-37 [facility] Comment on above: Performed By: #### C MP, T7, TSH, LIPID #### [facility] [address] [place] [address] Dr. Reuben Morrison Bilirubin [Mass/Vol] 0.9 mg/dL Normal 0.2-1.0 [facility] Comment on above: Performed By: #### C MP, T7, TSH, LIPID #### [facility] [address] [address] [address] Reuben Morrison Calcium [Mass/Vol] 8.9 mg/dL Normal 8.5-10.1 [facility] Comment on above: Performed By: #### C MP, T7, TSH, LIPID #### [facility] [address] [place] [address] Dr. Reuben Morrison Chloride [Moles/Vol] 106 mmol/L Normal 98-107 [facility] Comment on above: Performed By: #### C MP, T7, TSH, LIPID #### [facility] [address] [place] [address] Dr. Reuben Morrison CO2 [Moles/Vol] 28.2 mmol/L Normal 21.0-32.0 [facility] Comment on above: Performed By: #### C MP, T7, TSH, LIPID #### [facility] [address] [place] [address] Dr. Reuben Morrison Creatinine [Mass/Vol] 1.55 mg/dL Critically high 0.70-1.30 [facility] Comment on above: Performed By: #### C MP, T7, TSH, LIPID #### [facility] [address] [place] [address] Dr. Reuben Morrison EGFR-AF ESTONIAN 55 mL/min/1.73m2 Critically low >=60 [facility] Comment on above: Performed By: #### C MP, T7, TSH, LIPID #### [facility] [address] [place] [address] Dr. Reuben Morrison EGFR-NON AF ESTONIAN 46 mL/min/1.73m2 Critically low >=60 [facility] Comment on above: Performed By: #### C MP, T7, TSH, LIPID #### [facility] [address] [place] [address] Dr. Reuben Morrison Globulin (S) [Mass/Vol] 2.9 g/dL Normal [facility] Comment on above: Performed By: #### C MP, T7, TSH, LIPID #### [facility] [address] [address] [address] Reuben Morrison Glucose [Mass/Vol] 88 mg/dL Normal 74-[address] [facility] Comment on above: Performed By: #### C MP, T7, TSH, LIPID #### [facility] [address] [address] [address] Reubne Morrison Potassium [Moles/Vol] 4.2 mmol/L Normal 3.5-5.1 [facility] Comment on above: Performed By: #### C MP, T7, TSH, LIPID #### [facility] [address] [address] [address] Reuben Morrison Protein [Mass/Vol] 6.6 g/dL Normal 6.4-8.[address] [facility] Comment on above: Performed By: #### C MP, T7, TSH, LIPID #### [facility] [address] [address] [address] Reuben Morrison Sodium [Moles/Vol] 141 mmol/L Normal 136-[address] [facility] Comment on above: Performed By: #### C MP, T7, TSH, LIPID #### [facility] [address] [address] [address] Reuben Morrison Urea nitrogen [Mass/Vol] 13.0 mg/dL Normal 7.0-18.0 [facility] Comment on above: Performed By: #### C MP, T7, TSH, LIPID #### [facility] [address] [place] [address] Dr. Reuben Morrison Urea nitrogen/Creatinine [Mass ratio] 8.4 mg/mg Normal [facility] Comment on above: Performed By: #### C MP, T7, TSH, LIPID #### [facility] [address] [place] [address] Dr. Reuben Morrison TSHon 03-07-2022 TSH 0.091 uIU/mL Critically low 0.358-3.740 [facility] Comment on above: Performed By: #### C MP, T7, TSH, LIPID #### [facility] [address] [address] [address] Reuben Morrison TSH RANGE SEE BELOW Normal [facility] Comment on above: Result Comment: <0.3 4 UIU/ml HYPERTHYROID 0.34-5.60 UIU/ml EUTHYROID >5.60 UIU/ml HYPOTHYROID Performed By: #### C MP, T7, TSH, LIPID #### [facility] [address] [address] [address] Reuben Morrison VITAMIN B12on 03-07-2022 Cobalamin (Vitamin B12) [Mass/Vol] 3126.0 pg/mL Critically high 193.0-986.0 [facility] Comment on above: Performed By: #### T ESTTOT #### [facility] [address] [place] [address] Dr. Reuben Morrison VITAMIN D 25 OHon 03-07-2022 VIT D 25-OH 90.4 ng/mL Normal [facility] Comment on above: Performed By: #### T ESTTOT #### [facility] [address] [address] [address] Reuben Morrison VIT D RANGES SEE BELOW Normal [facility] Comment on above: Result Comment: <20 ng/mL Vit D deficient 20 - <30 ng/mL Vit D insufficient 30 - 100 ng/mL Vit D sufficient >100 ng/mL Potential Toxicity Performed By: #### T ESTTOT #### [facility] [address] [place] [address] Dr. Reuben Morrison XR SHOULDER RICHARD 2V [...] by: ERIN HANSEN Date: 2022-03-07 16:26 Normal [facility] Vital Signs Date Time Vital Sign Value Performing Clinician Facility 08-13-2024 13:46-0500 Blood Pressure Location Shawanda MEJIA [facility] 08-13-2024 13:46-0500 Diastolic blood pressure 82 mm[Hg] Shawanda MEJIA [facility] 08-13-2024 13:46-0500 Heart rate 72 /min Shawanda MEJIA [facility] 08-13-2024 13:46-0500 Respiratory rate 16 /min Shawanda MEJIA [facility] 08-13-2024 13:46-0500 Systolic blood pressure 122 mm[Hg] Shawanda MEJIA [facility] 07-17-2024 14:59-0400 Body height 168.9 cm Sage Russel DO Work Phone: [facility] 07-17-2024 14:59-0400 Body mass index (BMI) [Ratio] 30.02 kg/m2 Sage Russel DO Work Phone: [facility] 07-17-2024 14:59-0400 Body weight 85.64 kg Sage Russel DO Work Phone: [facility] 07-17-2024 14:59-0400 Diastolic blood pressure 90 mm[Hg] Sage Russel DO Work Phone: [facility] 07-17-2024 14:59-0400 Heart rate 68 /min Sage Russel DO Work Phone: [facility] 07-17-2024 14:59-0400 SaO2% (BldA) [Mass fraction] 98 % Sage Russel DO Work Phone: [facility] 07-17-2024 14:59-0400 Systolic blood pressure 134 mm[Hg] Sage Russel Work Phone: [facility] 06-06-2024 13:55-0400 Body height 168.91 cm MD Ilda Peck Work Phone: [facility] 06-06-2024 13:55-0400 Body mass index (BMI) [Ratio] 29.4 kg/m2 MD Ilda Peck Work Phone: [facility] 06-06-2024 13:55-0400 Body temperature 98.8 [degF] MD Ilda Peck Work Phone: [facility] 06-06-2024 13:55-0400 Body weight 83.97 kg MD Ilda Peck Work Phone: [facility] 06-06-2024 13:55-0400 Diastolic blood pressure 88 mm[Hg] MD Ilda Peck Work Phone: [facility] 06-06-2024 13:55-0400 Heart rate 61 /min MD Ilda Peck Work Phone: [facility] 06-06-2024 13:55-0400 Respiratory rate 16 /min MD Ilda Peck Work Phone: [facility] 06-06-2024 13:55-0400 SaO2% (BldA) [Mass fraction] 98 % MD Ilda Peck Work Phone: [facility] 06-06-2024 13:55-0400 Systolic blood pressure 139 mm[Hg] MD Ilda Peck Work Phone: [facility] 05-07-2024 15:01-0400 Blood Pressure Location Shawanda MEJIA [facility] 05-07-2024 15:01-0400 Diastolic blood pressure 84 mm[Hg] Shawanda MEJIA [facility] 05-07-2024 15:01-0400 Heart rate 68 /min Shawanda MEJIA [facility] 05-07-2024 15:01-0400 Respiratory rate 16 /min Shawanda LUZSyeda [facility] 05-07-2024 15:01-0400 Systolic blood pressure 118 mm[Hg] Shawanda LUZSyeda [facility] 11-02-2023 10:48-0500 Body height 170.2 cm Osmin Anthony MD Work Phone: [facility] 11-02-2023 10:48-0500 Body mass index (BMI) [Ratio] 29.29 kg/m2 Osmin Anthony MD Work Phone: [facility] 11-02-2023 10:48-0500 Body weight 84.82 kg Osmin Anthony MD Work Phone: [facility] 10-16-2023 13:03-0500 Blood Pressure Location Vianey SILVERMAN [facility] 10-16-2023 13:03-0500 Diastolic blood pressure 82 mm[Hg] Vianey SILVERMAN [facility] 10-16-2023 13:03-0500 Heart rate 75 /min Vianey SILVERMAN [facility] 10-16-2023 13:03-0500 Respiratory rate 16 /min Vianey SILVERMAN [facility] 10-16-2023 13:03-0500 Systolic blood pressure 131 mm[Hg] Vianey SILVERMAN [facility] 07-27-2023 10:00-0400 Body height 168.91 cm Sandoval Knight Other [employer] Other 07-27-2023 10:00-0400 Body mass index (BMI) [Ratio] 28.55 kg/m2 Sandoval Antonia Other [employer] Other 07-27-2023 10:00-0400 Body temperature 96.2 [degF] Sandoval Antonia Other [employer] Other 07-27-2023 10:00-0400 Body weight 81.47 kg Sandoval Antonia Other [employer] Other 07-27-2023 10:00-0400 Diastolic blood pressure 87 mm[Hg] Sandoval Antonia Other [employer] Other 07-27-2023 10:00-0400 Respiratory rate 16 /min Sandoval Antonia Other [employer] Other 07-27-2023 10:00-0400 SaO2% (BldA) [Mass fraction] 94 % Sandoval Antonia Other [employer] Other 07-27-2023 10:00-0400 Systolic blood pressure 130 mm[Hg] Sandoval Antonia Other [employer] Other 06-12-2023 12:25-0400 Blood Pressure Location Vianey SILVERMAN [facility] 06-12-2023 12:25-0400 Diastolic blood pressure 74 mm[Hg] Vianey SILVERMAN [facility] 06-12-2023 12:25-0400 Heart rate 68 /min Vianey SILVERMAN [facility] 06-12-2023 12:25-0400 Respiratory rate 16 /min Vianey SILVERMAN [facility] 06-12-2023 12:25-0400 Systolic blood pressure 128 mm[Hg] Vianey SILVERMAN [facility] 04-26-2023 11:15-0400 Body height 168.4 cm Shawanda Hernandez PA-C Work Phone: [facility] 04-26-2023 11:15-0400 Body temperature 98.01 [degF] Shawanda OCHOA-C Work Phone: [facility] 04-26-2023 11:15-0400 Body weight 86.95 kg Shawanda LUCEROC Work Phone: [facility] 04-26-2023 11:15-0400 Diastolic blood pressure 94 mm[Hg] Shawanda Hernandez PA-C Work Phone: [facility] 04-26-2023 11:15-0400 Heart rate 74 /min Shawanda Hernandez PA-C Work Phone: [facility] 04-26-2023 11:15-0400 SaO2% (BldA) [Mass fraction] 97 % Shawanda OCHOA-C Work Phone: [facility] 04-26-2023 11:15-0400 Systolic blood pressure 147 mm[Hg] Shawanda Hernandez PA-C Work Phone: [facility] 12-02-2022 08:12-0500 Blood Pressure Location Vianey SILVERMAN [facility] 12-02-2022 08:12-0500 Diastolic blood pressure 84 mm[Hg] Vianey SILVERMAN [facility] 12-02-2022 08:12-0500 Heart rate 70 /min Vianey SILVERMAN [facility] 12-02-2022 08:12-0500 Respiratory rate 16 /min Vianey HERRERA [facility] 12-02-2022 08:12-0500 Systolic blood pressure 137 mm[Hg] Vianey SILVERMAN [facility] 07-20-2022 14:11-0400 Body mass index (BMI) [Ratio] 28.98 kg/m2 Jovita Virk MD Work Phone: [facility] 07-20-2022 14:11-0400 Body temperature 98.01 [degF] Jovita Virk MD Work Phone: [facility] 07-20-2022 14:11-0400 Body weight 83.92 kg Jovita Virk MD Work Phone: [facility] 07-20-2022 14:11-0400 Diastolic blood pressure 86 mm[Hg] Jovita Virk MD Work Phone: [facility] 07-20-2022 14:11-0400 Heart rate 98 /min Jovita Virk MD Work Phone: [facility] 07-20-2022 14:11-0400 Respiratory rate 14 /min Jovita Virk MD Work Phone: [facility] 07-20-2022 14:11-0400 SaO2% (BldA) [Mass fraction] 100 % Jovita Virk MD Work Phone: [facility] 07-20-2022 14:11-0400 Systolic blood pressure 138 mm[Hg] Jovita Virk MD Work Phone: [employer] Encounters Encounter Date Encounter Type Care Provider Facility Start: 08-13-2024 End: 08-13-2024 Patient encounter procedure Shawanda MEJIA [facility] [place] Start: 07-17-2024 End: 07-17-2024 ambulatory SAGE GOODE Not Available Start: 07-17-2024 End: 07-17-2024 Office outpatient visit 25 minutes Sage Goode DO Work Phone: [facility] [employer] [facility] Comment on above: NANCY (obstructive sle ep apnea) (Primary Dx); Hypersomnia; Snoring; Atrial fibrillation, unspecified type (CMS/HCC); Sleep deprivation Start: 07-17-2024 End: 07-17-2024 Bamboo flowsheet Sage Goode DO Work Phone: [facility] [employer] [facility] Start: 07-17-2024 End: 07-17-2024 Bamboo flowsheet Sage Goode DO Work Phone: [facility] [employer] [facility] Start: 07-16-2024 End: 07-16-2024 ambulatory [facility] Start: 06-12-2024 End: 06-12-2024 ambulatory ROMÁN DAWSON Not Available Start: 06-11-2024 End: 06-11-2024 ambulatory [facility] Start: 06-06-2024 End: 06-06-2024 ambulatory MD Ilda Peck Work Phone: [facility] Work Phone: Start: 06-06-2024 End: 06-06-2024 Patient encounter procedure MD Ilda Peck Work Phone[facility] Work Phone: Start: 06-03-2024 Non-patient / Non-visit MD Ravi Peck Work Phone: [facility] Work Phone: Start: 05-29-2024 End: 05-29-2024 ambulatory Shawanda MEJIA Facility:CD:[id number] Start: 05-07-2024 End: 05-07-2024 ambulatory Shawanda MEJIA Facility:[facility] [place] Start: 05-07-2024 End: 05-07-2024 Patient encounter procedure Shawanda MEJIA [facility] [place] Start: 05-06-2024 ambulatory Vianey SILVERMAN Facility : [place] Start: 04-05-2024 End: 04-05-2024 ambulatory MD Ilda Peck Work Phone: [facility] Work Phone: Start: 04-05-2024 End: 04-05-2024 Departed Referred MD Ilda Peck Work Phone: [facility] Start: 02-07-2024 End: 02-07-2024 ambulatory [facility] Start: 12-26-2023 End: 12-26-2023 ambulatory [facility] Start: 11-27-2023 ambulatory Vianey SILVERMAN Facili ty: [place] Start: 11-17-2023 [facility] Start: 11-17-2023 Evaluation and management of inpatient [facility] Start: 11-16-2023 Evaluation and management of inpatient [facility] Start: 11-16-2023 ambulatory [facility] Start: 11-16-2023 ambulatory [facility] Start: 11-16-2023 End: 11-17-2023 Evaluation and management of inpatient [facility] Start: 11-02-2023 End: 11-02-2023 Patient encounter procedure Osmin Anthony MD Work Phone: [facility] Comment on above: Primary osteoarthrit is of right knee (Primary Dx) Start: 11-02-2023 End: 11-02-2023 ambulatory OSMIN ANTHONY [facility] Start: 10-30-2023 End: 10-30-2023 ambulatory DEMETRA [facility] Start: 10-16-2023 End: 10-16-2023 ambulatory Vianey SILVERMAN Facility:[facility] [place] Start: 10-16-2023 End: 10-16-2023 Patient encounter procedure Vianey SILVERMAN [facility] [place] Start: 09-08-2023 End: 09-08-2023 [facility] Start: 08-10-2023 End: 08-10-2023 [facility] Start: 07-27-2023 End: 07-27-2023 ambulatory Sandoval Antonia Other [employer] Other Start: 07-27-2023 Office outpatient ne w 45 minutes Sandoval Antonia [facility] Start: 07-10-2023 ambulatory Vianey SILVERMAN Facili ty:[facility] Start: 06-12-2023 End: 06-12-2023 [facility]ulatory [facility] Start: 06-12-2023 End: 06-12-2023 Patient encounter procedure Vianey SILVERMAN [facility] Start: 05-03-2023 End: 05-03-2023 Patient encounter procedure Taylor Joshua [facility] Start: 04-26-2023 End: 04-26-2023 ambulatory ILDA PECK Facility:[facility] Start: 04-26-2023 End: 04-26-2023 Patient encounter procedure Shawanda Hernandez PA-C Work Phone: [facility] Comment on above: Height loss (Primary Dx) Start: 03-08-2023 End: 03-08-2023 Patient encounter procedure KYLE RODRIGUEZ [facility] Start: 01-20-2023 End: 01-21-[address] ILDA PECK . Facility:[facility] Start: 12-02-2022 End: 12-02-2022 Patient encounter procedure Vianey SILVERMAN [facility] Start: 11-18-2022 End: 11-19-[address] ILDA PECK . Facility:[facility] Start: 11-08-2022 End: 11-09-2022 ambulatory TAYLOR JOSHUA . Facility:[facility] Start: 11-01-2022 End: 11-01-2022 Patient encounter procedure KYLE RODRIGUEZ [facility] Start: 10-05-2022 End: 10-05-2022 Patient encounter procedure KYLE RODRIGUEZ [facility] Start: 09-07-2022 End: 09-07-2022 Patient encounter procedure Taylor Joshua [facility] Start: 08-28-2022 Letter encounter Jovita Virk MD Work Phone: [facility] Start: 08-17-2022 End: 08-17-2022 Patient encounter procedure Taylor Joshua [facility] Start: 08-12-2022 Telephone encounter Aarti vences MA, [facility], COMMERCIAL SALES DIRECTOR Work Phone: [facility] Start: 07-21-2022 End: 07-22-[address] ILDA PECK . 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); Cognitive changes; Body mass index (BMI) 28.0-28.9, adult Start: 07-11-2022 End: 07-11-2022 Patient encounter procedure Vianey SILVERMAN [facility] Start: 06-15-2022 End: 06-16-[address] SAEED Flores Facility:[facility] Start: 06-13-2022 End: 06-13-2022 Patient encounter procedure Vianey SILVERMAN [facility] Start: 04-27-2022 End: 04-28-[address] SAEED Flores Facility:[facility] Start: 04-07-2022 Refill Jovita Virk MD Work Phone: [facility] [place] [facility] Comment on above: Refill Start: 03-21-[address] ILDA PECK . Facili ty:[facility] Start: 03-17-[address] ILDA PECK . Facili ty:[facility] Start: 03-09-2022 Encounter for genera l adult medical examination without abnormal findings DR ILDA PECK . [facility] Start: 03-07-2022 End: 03-08-2022 Encounter for general adult medical examination without abnormal findings DR ILDA PECK . Facility:[facility] Start: 03-07-2022 End: 03-08-[address] ILDA PECK . Facility:[facility] Start: 03-01-2022 End: 03-01-2022 Patient encounter procedure Saeed Cantu Jr. [facility] Start: 02-01-2022 End: 02-01-2022 Patient encounter procedure Saeed Cantu Jr. [facility] Start: 01-04-2022 End: 01-04-2022 Patient encounter procedure Saeed Cantu Jr. [facility] Procedures Date Procedure Procedure Detail Performing Clinician Start: 06-11-2024 Follow-up visit Follow-up UNIQUE ANTHONY Start: 05-29-2024 Colonoscopy Shawanda GREER Start: 11-02-2023 Arthrocentesis aspir &/inj major jt/bursa w/o us Osmin Anthony MD Work Phone: Start: 09-08-2023 Follow-up visit Follow-up JEOVANNY SANTOYO Start: 06-15-[address] FABIÁN PECK . Comment on above: Performed By: #### T ESTTOT #### [facility] [address] [place] [address] Dr. Reuben Morrison Start: 03-07-[address] FABIÁN PECK . Comment on above: Performed By: #### I BLAIR, PSASC, VITB12, VITAD #### [facility] [address] [place] [address] Dr. Reuben Morrison Start: 12-21-2016 Cystourethroscopy wi [...] DTaP,Tdap and Td Vaccines (2 - Tdap) [facility] Start: 09-04-2031 Urine microalbumin profile DTAP,TDAP,TD (2 - Tdap) [facility] Start: 06-15-2027 PROSTATE CANCER SCREENING DISCUSSION PROSTATE CANCER SCREENING DISCUSSION [facility] Start: 07-15-2025 End: 07-15-2025 Patient encounter procedure 07/15/2025 3:00 PM EDT Office Visit [facility] [address] [place] [id number] Sage Goode DO [address] [place], [place] [id number] [facility] [address] Start: 06-11-2025 End: 06-11-2025 Patient encounter procedure 06/11/2025 10:30 AM EDT Office Visit [facility] [address] [place] [address] Román Dawson MD [address] [place] [address] [facility] Start: 11-02-2024 Adult BMI Screening Adult BMI Screening [facility] Start: 11-02-2024 Tobacco Screening Tobacco Screening [facility] Start: 10-21-2024 ambulatory Ambulatory Facility:[facility] Start: 05-26-2024 Influenza vaccination Influenza Vaccine (#1) [facility] Start: 02-22-2024 Pneumococcal Vaccine: 65+ Years (1 of 1 - PCV) Pneumococcal Vaccine: 65+ Years (1 of 1 - PCV) [facility] Start: 05-26-2023 COVID-19 Vaccine ( season) COVID-19 Vaccine ( season) [facility] Start: 05-26-2023 Influenza vaccination INFLUENZA (#1) [facility] Start: 09-25-2022 DEPRESSION ASSESSMENT DEPRESSION ASSESSMENT [facility] Start: 09-20-2022 COVID-19 Vaccine (5 - Booster for Pfizer series) COVID-19 Vaccine (5 - Booster for Pfizer series) [facility] Start: 09-20-2022 COVID-19 VACCINE (5 - Pfizer series) COVID-19 VACCINE (5 - Pfizer series) [facility] Start: 07-19-2022 End: 07-19-2022 Patient encounter procedure 07/19/2022 Office Visit Physical Medicine & Rehab/PM&R Jovita Virk MD [address] [place] [id number] [facility] [place] [facility] Start: 06-25-2022 Influenza vaccination Influenza Vaccine (#1) [facility] Start: 05-31-2022 Shingles (RZV) Vaccine (2 of 2) Shingles (RZV) [facility]2 [facility] 2) [facility] Start: 01-19-2022 COVID-19 Vaccine (4 - Booster for Pfizer series) COVID-19 Vaccine (4 - Booster for Pfizer series) [facility] Start: 11-15-2021 COVID-19 Vaccine (4 - Booster for Pfizer series) COVID-19 Vaccine (4 - Booster for Pfizer series) [facility] Start: 09-05-2021 Lipid panel Cholesterol [facility] Start: 12-04-2020 DIABETES SCREEN DIABETES SCREEN [facility] Start: 11-23-2014 Annual wellness visit Annual Wellness Visit (G0438) [facility] Start: 06-10-2012 Thyroid stimulating hormone measurement TSH [facility] Start: 2009 Measurement of occult blood in single stool specimen FIT [facility] Start: 2009 Screening for malignant neoplasm of colon CRC Screening [facility] Start: 2009 Shingles (RZV) Vaccine (1 of 2) Shingles (RZV) Vaccine (1 of 2) [facility] Start: 02-22-2004 COLOGUARD (FIT-DNA) COLOGUARD (FIT-DNA) [facility] Start: 02-22-2004 Colonoscopy COLONOSCOPY [facility] Start: 02-22-2004 COLORECTAL CANCER SCREENING COLORECTAL CANCER SCREENING [facility] Start: 02-22-[address] COLONOGRAPHY [facility] Start: 02-22-2004 FECAL OCCULT BLOOD FECAL OCCULT BLOOD [facility] Start: 02-22-2004 SIGMOIDOSCOPY SIGMOIDOSCOPY [facility] Start: 1994 LIPID SCREEN LIPID SCREEN [facility] Start: 1977 Adult BMI Follow Up Plan Adult BMI Follow Up Plan [facility] Start: 1977 ANNUAL PCP TEAM CHRONIC DISEASE VISIT ANNUAL PCP TEAM CHRONIC DISEASE VISIT [facility] Start: 1977 Hepatitis C screening [facility] C [facility] Start: 1977 HEPATITIS C SCREENING HEPATITIS C SCREENING [facility] Start: 1977 HIV SCREENING HIV SCREENING [facility] Start: 1977 SPIROMETRY SPIROMETRY [facility] Start: 1977 Tetanus + diphtheria + acellular pertussis vaccine (product) Tdap Booster [facility] Start: 1974 HIV screening HIV Test [facility] Start: 1971 Depression Screening Depression Screening [facility] Start: 1965 PNEUMOCOCCAL (1 - PCV) PNEUMOCOCCAL (1 - PCV) [facility] Start: 1959 Screening for malignant neoplasm of colon [facility] Immunizations Immunization Date Immunization Notes Care Provider [facility] 08-10-2023 influenza virus vaccine, unspecified formulation Shawanda MEJIA [facility] 08-29-2022 zoster vaccine recombinant Shawanda Hernandez PA-C Work Phone: [facility] 07-26-2022 SARS-CoV-2 (COVID-19 ) mRNA-5223 vaccine Shawanda MEJIA [facility] 07-25-2022 Influenza, injectabl e, Madin Hanna Canine Kidney, preservative free, quadrivalent Jovita Virk MD Work Phone: [facility] 04-05-2022 zoster vaccine recombinant Jovita Virk MD Work Phone: [facility] 09-20-2021 SARS-CoV-2 (COVID-19 ) mRNA BNT-162b2 vax Shawanda MEJIA [facility] [place] 09-04-2021 diphtheria, tetanus toxoids and pertussis vaccine Jovita Virk MD Work Phone: [facility] 08-25-2021 SARS-CoV-2 (COVID-19 ) Ad26 vaccine, recombinant Saeed Cantu Jr. [facility] 08-10-2021 influenza, injectabl e, quadrivalent, preservative free Jovita Virk MD Work Phone: [facility] 08-10-2021 influenza virus vaccine, unspecified formulation Jovita Virk MD Work Phone: [facility] 06-25-2021 influenza virus vaccine, unspecified formulation Saeed Cantu Jr. [facility] 12-22-2020 Pfizer (12+ yrs) SARS-COV-2 (COVID-19) vaccine, mRNA, spike protein, LNP, pres. free, 30 mcg/0.3mL dose (CNS=841) Jovita Virk MD Work Phone: [facility] 11-30-2020 Pfizer (12+ yrs) SARS-COV-2 (COVID-19) vaccine, mRNA, spike protein, LNP, pres. free, 30 mcg/0.3mL dose (VUP=743) Jovita Virk MD Work Phone: [facility] 08-25-2020 influenza virus vaccine, unspecified formulation Saeed Cantu Jr. [facility] 06-30-2020 influenza, injectabl e, quadrivalent, preservative free Jovita Virk MD Work Phone: [facility] 12-25-2019 SARS-CoV-2 (COVID-19 ) mRNA BNT-162b2 vax Saeed Cantu Jr. [facility] 11-24-2019 SARS-CoV-2 (COVID-19 ) mRNA BNT-162b2 beau Cantu [facility] Payers Date Payer Category Payer Self-pay 2023 Unknown [id number] 2022 Blue [facility] [employer] BCBS [id number] 2022 Unknown [id number] 2017 Unknown [id number] [id number] 2017 Unknown [id number] 2013 Medicare [id number] 1959 Self-pay [id number] 1959 Unknown [id number] 2.16.840.1.870979.3.579.2. 593 1959 Unknown [id number] 2.16.840.1.115003.3.579.2. 593 1959 Unknown [id number] 2.16.840.1.579975.3.579.2. 593 1959 Unknown [id number] 2.16.840.1.875331.3.579.2. 593 1959 Unknown [id number] 2.16.840.1.559991.3.579.2. 593 1959 Unknown [id number] 2.16.840.1.367169.3.579.2. 593 1959 Unknown [id number] 2.16.840.1.691368.3.579.2. 59 1959 Unknown [id number] 2.16.840.1.113114.3.579.2. 59 1959 Unknown [id number] 2.16.840.1.232701.3.579.2. 59 1959 Unknown [id number] 2.16840.1.080488.3.579.2. 59 1959 Unknown [id number] 2.16.840.1.475045.3.579.2. 59 1959 Unknown [id number] 2.16.840.1.631988.3.579.2. 72 1959 Unknown [id number] 2.16.840.1.090364.3.579.2. 72 1959 Unknown [id number] 2.16840.1.878474.3.579.2. 72 1959 Unknown [id number] 2.16.840.1.480985.3.579.2. 72 1959 Unknown [id number] 2.16.840.1.438920.3.579.2. 72 1959 Unknown [id number] 2.16.840.1.425515.3.579.2. 72 1959 Unknown [id number] 2.16.840.1.042020.3.579.2. 72 1959 Unknown [id number] 2.16.840.1.859465.3.579.2. 1286 1959 Unknown [id number] 2.16.840.1.600903.3.579.2. 1286 1959 Unknown [id number] 2.16.840.1.416694.3.579.2. 1259 1959 Unknown [id number] 2.16.840.1.925891.3.579.2. 1259 Medicare [id number] Private Health Insurance [facility] [id number] Unknown [id number] Unknown MMO [employer] [id number] Unknown [id number] Social History Date Type Detail Facility Start: 10-05-2021 End: 08-13-2024 Tobacco smoking status Never smoked tobacco (finding) [facility] Tobacco smoking status Never [facility] Start: 04-26-2023 End: 05-29-2024 Sex Assigned At Male [facility] Start: 08-24-2011 End: 07-17-2024 Tobacco use and exposure Smokeless tobacco non-user [facility] Start: 12-07-2017 End: 08-12-2022 Alcohol intake Not Asked [facility] Start: 1960 Sex Assigned At Not on file [facility] Start: 08-12-2022 History SDOH Social Connections Phone 1 [facility] Start: 08-12-2022 History SDOH Social Connections Get Together 2 [facility] Start: 08-12-2022 History SDOH Social Connections [place] [id number] [facility] Start: 08-12-2022 Education 12 [facility] Start: 04-26-2023 End: 07-08-2024 Alcohol intake Current drinker of alcohol (finding) [facility] Start: 04-26-2023 End: 05-29-2024 History of Social function [facility] Start: 12-04-2017 Alcohol Comment [facility] Start: 1960 Sex Assigned At Male P [facility] Start: 08-23-2021 Gender identity Identifies as male gender (finding) [facility] How often to you hav e a drink containing alcohol? Monthly or less [facility] How many standard drinks containing alcohol do you have on a typical day? 1 or 2 [facility] How often do you hav e 6 or more drinks on 1 occasion? Weekly [facility] Medical Equipment Procedure Code Equipment Code Equipment Origin al Text Equipment Identifier Dates Brng Tib [id number] mm 0d Kn Ant - [id number] Start: 09-05-2016 Cement Bn Pal[place] s Radpq 40g Rpl [id number] - [id number] Start: 09-05-2016 Cmpt Ptlr Thn 34 mm 3 Pg Kn Ser - [id number] Start: 09-05-2016 Goals Date Patient Goal Desired Activity /State Personal health goal Comment on above: Formatting of this n ote might be different from the original. Evaluation of progress towards goal: Maximize work with PT at discharge to strengthen L knee Functional Status Date Assessment Result Facility 08-13-2024 Functional Status N/A [facility] [place] 05-07-2024 Functional Status N/A [facility] 10-16-2023 Functional Status N/A [facility] 06-12-2023 Functional Status N/A [facility] 12-02-2022 Functional Status N/A [facility] Clinical Notes 04-07-2022 to 07-17-2024 Sage Goode DO - 07/17/2024 2:30 PM Ge Anthony MD - 11/02/2023 10:50 AM EST Note Date & Type Note Facility 07-17-2024 History of Present illness Narrative Images from the original note were not included. Chief Complaint Patient presents with Sleep Apnea Subjective Vianey Lacey, 64 y.o., male HPI NANCY The patient states that he is sleeping better. He is wearing his machine nightly. His mask is leaking and he has a new one ordered and coming to him. He states that he is sleeping about 7 hours a night. Sometimes he needs to readjust his mask. He states that he still gets tired during the day but not as bad before the machine. He no longer snores. He still wakes up once in a while with a dry mouth but that is better than it was. He did not realize that there is a filter and needed it changed. HE is still out of A-fib. NO events of the CHF. The BP runs a little parminder. No other new issues. Past Medical History: Diagnosis Date A-fib (CMS/HCC) Arthritis Autoimmune thyroiditis (CMS/HCC) CHF (congestive heart failure) (CMS/HCC) Hypertension (CMS/HCC) Hypothyroidism (CMS/HCC) Kidney disease Low platelet count (CMS/HCC) Low vitamin B12 level Thyroid disease (CMS/HCC) Unspecified atrial fibrillation (CMS/HCC) Past Surgical History: Procedure Laterality Date CARDIOVERSION CT ANGIO HEAD 11/17/2023 CT ANGIO HEAD 11/17/2023 CT ANGIOGRAM NECK 11/17/2023 CT ANGIOGRAM NECK 11/17/2023 HERNIA REPAIR SPINAL FUSION Cervical TOTAL KNEE ARTHROPLASTY Left Family History Problem Relation Name Age of Onset COPD Mother Cancer Mother Cancer Father Heart disease Father Other (Spleen cancer) Father Lymphoma Father Other (Smoker) Father Alcoholism (CMS/HCC) Other Cancer (CMS/HCC) Other COPD Other Social History Tobacco Use Smoking status: Never Smokeless tobacco: Never Substance Use Topics Alcohol use: Yes Allergies: Ciprofloxacin General: No fever or chills HEENT: No nasal congestion or runny nose Pulmonary: No shortness of breath or cough Cardiovascular: No chest pain or palpitations GI: No nausea or vomiting : No dysuria or hematuria Musculoskeletal: No new aches or pains or muscle weakness Infectious: no recurrent fevers or infections Dermatologic: No rashes or skin lesions Neurologic: No new headaches or dizziness Vitals: 07/17/24 1459 BP: 134/90 Pulse: 68 SpO2: 98% Body mass index is 30.02 kg/m . weight: 188 lb 12.8 oz Neurologic exam: General: Normal body habitus, cooperative, pleasant Mental status: Awake, alert to person, place and time. Recent and remote memory are intact. Attention and concentration are normal. Fund of knowledge is appropriate for level of education. HEENT: NC/AT Cranial nerves: CN II: Visual cook full to confrontation. No loss of vision CN III, IV, : pupils equal round and reactive to light. Extraocular movements intact. No ptosis present. CN V: Facial sensation is normal. CN VII: Full and symmetric facial movement. CN VIII: Hearing is normal CN IX and X: Palate elevates symmetrically. CN XI: Shoulder shrug is normal bilaterally. CN XII: Tongue is midline without atrophy or fasciculation. Speech: Clear and fluent no aphasia or dysarthria Pronator drift: Negative bilateral upper extremity Coordination: Intact, no signs of dysmetria Good finger to nose and rapid alternating movements Sensory: Sensation is intact to light, temperature and vibratory touch throughout four extremities. Motor: LUE 5/5 RUE 5/5 LLE 5/5 RLE 5/5 Tone: Physiologic, no tremor, bradykinesia or rigidity DTR: Bilateral Biceps 2/4 Bilateral BR 2/4 No spasticity Gait: Normal to casual gait Romberg's Negative Review and summary of old records: Assessment/Plan Diagnoses and all orders for this visit: NANCY (obstructive sleep apnea) Hypersomnia Snoring Atrial fibrillation, unspecified type ([facility]/HCC) Sleep deprivation 64 year old male with an moderate obstructive sleep apnea with an AHI of 19 and oxygen desaturation down to 84% leading to daytime hypersomnia and snoring. He is doing well and compliant with is using it 97% of the time with 90% of the time greater than 4 hours with an average nightly usage of 6 hours and 56 minutes. He could use more sleep time. He does still have some daytime residual hypersomnia but I suspect this is from sleep deprivation and inadequate hours of sleep. His snoring is controlled with the use of the machine. His AHI is down to 8.4. He has not gone back into atrial fibrillation in his doing well with that. Plan Compliance data was reviewed as above Continue use the machine whenever sleeping Counseled on proper sleep hygiene including adequate hours of sleep and needs to try to get some more sleep time The patient was counseled on the risks of stroke, VT, and sudden with NANCY, along with the need for compliance with the CPAP/BiPAP treatment. The diagnosis was all discussed with the patient. All questions were answered and they agreed with the treatment plan. Patient will call if there are any new issues or questions. Pt has been fully educated on their diagnosis, treatment options, follow up plan, and return instructions Return to clinic: 2 months documented in this encounter [facility] 07-16-2024 Note [facility] Consult Note Reason for visit: s/p Afib ablation 07/16/24 Pt is doing well and he is feeling great. He is in SR. He is on HLZ tid and wants to switch to easier meds. 12/26/23 patient underwent atrial fibrillation ablation on [...] Box isolaton+ Substrate modification for discrete mechanistic food mobile driver of AF. 2. Atrial flutter s/p bidirectional block. 3. Poor sinus node function. 4. No retrograde left sided accessory pathway. Prior HPI: Vianey Lacey is a 64 y.o. year old with past medical history [...] function. He is also recently seen a boiler out. They are weaning of amantadine which was started in the past after a closed head injury. No orthopnea, no paroxysmal tunnel dyspnea no lower extremity edema. PMH: Past Medical History: Diagnosis Date Abnormal ECG Arrhythmia Atrial fibrillation (CMS/HCC) Heart valve disease moderate mitral regurgitation and tricuspid regurgitation Hypertension Hypothyroidism Sleep apnea PSH: Past Surgical History: Procedure Laterality Date ABLATION OF DYSRHYTHMIC FOCUS BACK SURGERY HERNIA REPAIR REPLACEMENT TOTAL KNEE ONCOLOGIC SHOULDER SURGERY SH: Social Determinants of Health Tobacco Use: Low Risk (02/07/2024) Patient History Smoking Tobacco Use: Never Smokeless [...] Year: No Utilities: Not At Risk (11/16/2023) [facility] Utilities Threatened with loss of utilities: No Allergies: No Known Allergies Weight: 85.3kg Visit Vitals BP (!) 143/91 Pulse 55 Ht 1.727 m (5' 8 ) Wt 85.3 kg (188 lb) SpO2 95% BMI 28.59 kg/m??? Smoking Status Never BSA 2.02 m??? Meds: Current Outpatient Medications on File Prior to Visit Medication Sig Dispense Refill apixaban (Eliquis) 5 mg tablet Take 1 tablet (5 mg) by mouth two times daily. 180 tablet 3 hydrALAZINE (Apresoline) 25 mg tablet Take 1 tablet (25 mg) by mouth three times daily. 270 tablet 3 levothyroxine (Synthroid, Levoxyl) 150 mcg tablet Take 1 tablet (150 mcg) by mouth before breakfast. 30 tablet 0 liothyronine (Cytomel) 25 mcg tablet Take 0.5 tablets by mouth in the morning. tamsulosin (Flomax) 0.4 mg 24 hr capsule Take 1 capsule every day by oral route for 90 days. vitamin B complex 627-7-706-2-2 mg/mL injection Inject into the shoulder, thigh, or buttocks every 30 (thirty) days. Last dose 10/27/23 amantadine (Symmetrel) 100 mg capsule Take 1 capsule every day by oral route for 30 days. amiodarone (Pacerone) 200 mg tablet Take 2 tablets (400 mg) by mouth in the morning and at bedtime for 14 days, THEN 1 tablet (200 mg) once daily as directed. (Pa (more content not included)... [facility] 05-07-2024 Note General Surgery Offi ce/Clinic Note [...] prior to procedure. 2. Chronic anticoagulation (Z79.01: halfway (current) use of 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s) see # 1 [...] - Denies Substa (more content not included)... [facility] Comment on above: Result Comment: Elec tronically Signed By: ROBERTO PRIETO, Shawanda Young\Date and Time Signed: 05/07/24 15:50 EDT 02-07-2024 Note [facility] Cardiology Clinic Note Chief Complaint: Patient [...] days., Disp: , Rfl: vitamin B complex 543-2-949-2-2 mg/mL injection, Inject into the shoulder, thigh, [...] reversible ischemia. Ejection fraction is normal. Transesophageal Echocardiogram-[facility] Name: VIANEY LACEY Study Date: 07/11/2023 12:24 PM B/P: 104 mmHg/74 mmHg HR: Date of : 1960 Location: [facility] Height: 68 in. Age: 63 year(s) Patient Room : Weight: 189 lb. Gender: Male Patient Status: OutPt BSA: 2 m2 Indication: Atrial Fibrillation, Pre-Cardioversion Examination: JAMIN (Transesophageal Echo / CFI) Image Quality: Good Patient Consent: Informed, written consent was obtained for the procedure s p @ c 3 Exam Location: A JAMIN was performed in the Imaging Technician without complications s p @ c 3 [...] mitral regurgitation. Tric (more content not included)... [facility] 12-26-2023 Note Thank you [facility] Consult [...] Box isolaton+ Substrate modification for discrete mechanistic food mobile driver of AF. 2. Atrial flutter s/p [...] function. He is also recently seen a boiler out. They are weaning of amantadine which was [...] Year: No Utilities: Not At Risk (11/16/2023) [facility] Utilities Threatened with loss of utilities: [...] tablet 0 tamsulo (more content not included)... [facility] 11-17-2023 Note Renal condition is stable [facility] 11-17-2023 Note 11/17/23 1017 Admission Assessment Questions [...] Discharge? No Does the patient have a transplant case manager assigned to them through their insurance? No Living Arrangement (Current/Prior to Hospitalization) Private residence;Home self care (one story house - 2 entry stairs) Does the patient have history of HHC or SNF? Yes ([facility] in [place] following brain injury 2010) Assistive Device Other [...] link and activate MyChart? MyChart already active [facility] 11-16-2023 Note ATRIAL FIBRILLATION ABLATION PROCEDURE NOTE DATE OF PROCEDURE: 11/16/2023 PERFORMING PHYSICIAN: Dr. Jeovanny Scott EXECUTIVE CYBER LEADER: Dr Blanca Verde CONSENT: Patient NAME OF [...] Coumadin ridge. Esophagus was mapped using the SolidmationUND 3D mapping software and noted to be [...] revealed a lar (more content not included)... [facility] 11-16-2023 Note Patient: ODILON Lacey Procedure Summary Date: 11/16/23 Room / Location: [facility] DUMP MOTOR OPERATOR 1 / [facility] VASCULAR [facility] (Cath) Anesthesia Start: 1211 Anesthesia Stop: 161 Procedures: Ablation atrial fibrillation [...] per anesthesia protocol. No notable events documented. [facility] 11-16-2023 Note Patient: ODILON Mcintosh Olynn Procedure Summary Date: 11/16/23 Room / Location: [facility] DUMP MOTOR OPERATOR 1 / [facility] (Cath) Anesthesia Start: 1211 Anesthesia Stop: 161 Procedures: Ablation atrial fibrillation [...] Line Transport: uneventful Patient condition is: stable [facility] 11-16-2023 Note Airway Date/Time: 11/16/2023 12:27 PM Urgency: elective Airway not difficult General Information and Staff Patient location during procedure: OR Anesthesiologist: Gissell Heller MD Resident/PHOTO RETOUCHER/CAA: Edy Marino DO Performed: resident/PHOTO RETOUCHER/CAA Indications and Patient Condition Indications for airway [...] 1 Number of other approaches attempted: 0 [facility] 11-16-2023 Note Arterial Line: Date/Time: 11/16/2023 12:00 [...] mL - 11/16/2023 12:00:00 PM Staffing Performed: resident/PHOTO RETOUCHER/CAA Resident/PHOTO RETOUCHER: Tara Penny MD Performed by: Tara Penny MD Authorized by: Gissell Heller MD [facility] 11-16-2023 Note Patient: ODILON Lacey Procedure Information Anesthesia Start Date/Time: 11/16/23 1211 Procedures: Ablation atrial fibrillation JAMIN during EP case Location: [facility] DUMP MOTOR OPERATOR 1 EP / [facility] VASCULAR LAB (Cath) Providers: Jeovanny Scott [...] 86 QT Interval 392 QTC CALCULATION(BAZETT) 429 R-[place] -15 T Wave [place] -6 Impression Atrial fibrillation Abnormal ECG When compared with ECG of 11-JUL-2023 12:42, Atrial fibrillation has replaced Sinus rhythm Vent. rate has increased BY 25 BPM Transesophageal echo (JAMIN) with possible cardioversion Result Date: 07/11/2023 1 [facility] Heart Station [address] [place] [address] [phone] (fax) Transesophageal Echocardiogram-[facility] Name: VIANEY LACEY Study Date: 07/11/2023 12:24 PM B/P: 104 mmHg/74 mmHg HR: Date of : 1960 Location: [facility] Height: 68 in. Age: 63 year(s) Patient Room: Weight: 189 lb. Gender: Male Patient Status: OutPt BSA: 2 m2 Indication: Atrial Fibrillation, Pre-Cardioversion Examination: JAMIN (Transesophageal Echo / CFI) Image Quality: Good Patient Consent: Informed, written consent was obtained for the procedure Exam Location: A JAMIN was performed in the Imaging Technician without complications Anesthesia Pharyngeal anesthesia with viscous [...] in the aorta. Procedure Staff Reading Group: [facility] Driller Hand: Cherrie Armstrong RDCS Ordering Physician: George Loza [...] Equipment Requests Tara Penny MD PGY 4 [place]ountain Waitress/Waiter [facility] 11-02-2023 History of Present illness Narrative Associated [...] the patient today with my physician assistant track coach and agree with all aspects of the [...] via procedure documentation documented in this encounter [facility] 10-30-2023 Note [facility] Consult Note [...] function. He is also recently seen a boiler out. They are weaning of amantadine which was [...] route for 90 days. vitamin B complex 520-8-117-2-2 mg/mL injection Refill(s) 0 amantadine (Symmetrel) 100 [...] Inspection and Palpat (more content not included)... [facility] 10-30-2023 Note Patient here for H&P prior to afib ablation scheduled for 11/16/[address] Scott. Denies chest pain, SOB, palpitations, lightheadedness/syncope, and bleeding on Eliquis. Review of Systems Constitutional: Positive for malaise/fatigue. All other systems reviewed and are negative. [facility] 10-16-2023 Hospital Discharge instructions Patient [...] provider. Document Revised: 01/20/2022 Document Reviewed: 01/20/2022 [employer] Patient Education 2022 [employer]. Follow Up Care 07/31/2023 10:30:59 With:HERRERA PRIETO, Vianey Crawford, URL Address: [facility] [address], [place] [id number]- When:Within 1 Year(s) Comments:w/PSA [facility] 09-08-2023 Note [facility] Consult Note Reason [...] function. He is also recently seen a boiler out. They are weaning of amantadine which was [...] route for 90 days. vitamin B complex 752-8-159-2-2 mg/mL injection Refill(s) 0 No current facility-administered [...] tender Musculoskeletal Ins (more content not included)... [facility] 08-10-2023 Note [facility] Cardiology Clinic Note Chief Complaint: Patient [...] function. He is also recently seen a boiler out. They are weaning of amantadine which was [...] days., Disp: , Rfl: vitamin B complex 893-4-930-2-2 mg/mL injection, Refill(s) 0, Disp: , Rfl: [...] reversible ischemia. Ejection fraction is normal. Transesophageal Echocardiogram-[facility] Name: VIANEY LACEY Study Date: 07/11/2023 12:24 PM B/P: 104 mmHg/74 mmHg HR: Date of : 1960 Location: [facility] Height: 68 in. Age: 63 year(s) Patient Room : Weight: 189 lb. Gender: Male Patient Status: OutPt BSA: 2 m2 Indication: Atrial Fibrillation, Pre-Cardioversion Examination: JAMIN (Transesophageal Echo / CFI) Image Quality: Good Patient Consent: Informed, written consent was obtained for the procedure s p @ c 3 Exam Location: A JAMIN was performed in the Imaging Technician without complications s p @ c 3 [...] A 12-lead EKG (more content not included)... [facility] 07-27-2023 Evaluation note Encounter Date [...] advised him to avoid NSAIDs or any fnsc-cwc-tdzit er supplements. This deanna with the importance [...] - G47.33) Continue follow-up with the specialist. [facility] Other 10-17-2023 History general Narrative - Reported* Type Description Date Medical History FATIGUE Medical History EDEMA Surgical History CARDIO VERSION 07/11/2023 Surgical History LEFT KNEE REPLACEMENT Surgical History C5-C6 PLATE AND SCREWS Surgical History DOUBLE HERNIA REPAIR Surgical History RIGHT SHOULDER SCOPE Surgical History COLONOSCOPY Surgical History CYSTO SCOPE Hospitalization History SEE ABOVE [facility] Other 09-18-2023 Hospital Discharge instructions Patient Education 06/12/2023 13:16:00 [...] therapy. Follow these instructions at home: Take dsxm-ghv-nvolwdc and prescription medicines only as told by [...] provider. Document Revised: 05/13/2021 Document Reviewed: 05/13/2021 Groups[employer] Patient Education 2022 [employer]. Follow Up Care 05/04/2023 10:34:04 With:HERRERA PRIETO, Vianey [place], URL Address: [facility] [address] [place] [id number]- [phone] When:Within 6 Month(s) Comments:w/Testosterone Level, PSA and CBC [facility] 08-02-2023 NoteHNO ID: [id number] Author: Shawanda Hernandez PA-C Service: ? Author Type: Physician Teaching Artist Type: Progress Notes Filed: 04/26/2023 11:40 AM [...] Full Oblique Extension With (more content not included)...[facility] 04-26-2023 History of Present illness [...] 2023 TIME: 11:15 AM [facility] Discharge instructions Patient Education 12/02/2022 [...] urethra. Follow these instructions at home: Take jcvc-cke-vsienyi and prescription medicines only as told by [...] 09/11/2006 Document Revised: 08/06/2019 Document Reviewed: 10/16/2017 Groupsite Patient Education 2020 [employer]. Follow Up Care 11/01/2022 10:29:54 With:HERRERA PRIETO, Vianey [place], URL Address: [address] [place], [place] [id number]- When: Unknown [facility] 11-18-2022 History of Present illness Narrative* Aarti Kelsey MA, [facility], COMMERCIAL SALES DIRECTOR - 08/12/2022 12:27 PM EST SPEECH LANGUAGE [...] stated should already be in the system. COMMERCIAL SALES DIRECTOR was speaking with patient's spouse via phone conversation attempting to troubleshoot and bypass the preliminary questionnaires. However, it was unsuccessful. COMMERCIAL SALES DIRECTOR sent patient's spouse a direct link to her cell phone to connect to video visit and the same issues arose. Patient was connected to Wifi and using an iPad in home setting. The iPad did not successfully pass the hardware test and patient/patient's spouse were never able to successfully log on. COMMERCIAL SALES DIRECTOR provided patient/patient's spouse the [facility] Support Team's contact information to reach out for further assistance with log on issues. COMMERCIAL SALES DIRECTOR will e-mail patient's spouse/patient information regarding memory strategies, etc to help in the home setting (patient's spouse reported patient tends to misplace belongings, such as keys, etc and could use a refresher on the strategies. Patient's spouse stated she will take a look at the strategies and go from there with scheduling anything further. COMMERCIAL SALES DIRECTOR provided patient/spouse with our direct line to [facility] dept if she has any further questions/concerns or needs to schedule. Patient left without being seen this date. Electronically signed by Aarti Kelsey MA, [facility], COMMERCIAL SALES DIRECTOR at 08/12/2022 12:28 PM EST documented in this [id number] Instructions* Patient Instructions* Jovita Virk MD - 07/20/2022 2:49 PM EDT -Get the sleep apnea addressed -Hold amantadine -Add memantine 5mg daily. -External referral for brain MRI. -Speech therapy for cognitive strategies. -R knee surgery. -F/up 1 year, sooner if needed. documented in this [id number] History of Present illness Narrative* Jovita Virk [...] 200 mg into the muscle once amonth. 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 Last available brain imaging [id number] showed ventriculomegaly that was deemed not hydrocephalus [...] Risk protocol implemented: No documented in this [id number] Telephone encounter Note* Telephone Encounter - Renetta [...] PCP on file No PCP on file [id number] Miscellaneous Notes* Telephone Encounter - Renetta Boyer [...] Appointments Appointment Date:02/01/2022 10:00:00 AM Scheduled Provider: Location:[facility] Appointment Type:URO Nurse Visit Appointment Date:03/01/2022 09:00:00 AM Scheduled Provider:Saeed Cantu Jr., MD Location:[facility] Appointment Type:URO Office Visit Appointment Date:04/05/2022 11:15:00 AM Scheduled Provider:Saeed Cantu Jr., MD Location:[facility] Appointment Type:URO Office Visit [facility] evaluation + Plan note Future Appointments Appointment Date:03/01/2022 09:00:00 AM Scheduled Provider:Saeed Cantu Jr., MD Location:[facility] Appointment Type:URO Office Visit Appointment Date:04/05/2022 11:15:00 AM Scheduled Provider:Saeed Cantu Jr., MD Location:[facility] Appointment Type:URO Office Visit [facility] evaluation + Plan note Future Appointments Appointment Date:04/05/2022 11:15:00 AM Scheduled Provider:Saeed Cantu Jr., MD Location:[facility] Appointment Type:URO Office Visit Diagnostic Tests Pending * Testosterone Level Total 03/01/22 [facility] evaluation + Plan note Future Appointments Appointment Date:07/11/2022 10:15:00 AM Scheduled Provider: Location:[facility] Appointment Type:URO Nurse Visit [facility] evaluation + Plan note Future Appointments Appointment Date:09/07/2022 10:00:00 AM Scheduled Provider: Location:[facility] Appointment Type:URO Nurse Visit [facility] evaluation + Plan note Future Appointments Appointment Date:10/05/2022 10:00:00 AM Scheduled Provider: Location:[facility] Appointment Type:URO Nurse Visit [facility] evaluation + Plan note Future Appointments Appointment Date:11/01/2022 10:00:00 AM Scheduled Provider: Location:[facility] Appointment Type:URO Nurse Visit [facility] evaluation + Plan note Future Appointments Appointment Date:11/30/2022 10:00:00 AM Scheduled Provider:Taylor Joshua MD Location:[facility] Appointment Type:URO Office Visit Diagnostic Tests Pending * CBC w/ Auto Diff 11/01/22 * Testosterone Level Total 11/01/22 [facility] evaluation + Plan note Diagnostic Tests Pending * Testosterone Level Total 12/17/22 * Testosterone Level Total 04/25/23 [facility] evaluation + Plan note Future Appointments Appointment Date:04/05/2023 10:00:00 AM Scheduled Provider: Location:[facility] Appointment Type:URO Nurse Visit [facility] evaluation + Plan note Future Appointments Appointment Date:05/30/2023 10:00:00 AM Scheduled Provider: Location:[facility] Appointment Type:URO Nurse Visit [facility] evaluation + Plan note Future Appointments Appointment Date:07/10/2023 09:30:00 AM Scheduled Provider: Location:[facility] Appointment Type:URO Nurse Visit Appointment Date:11/27/2023 09:45:00 AM Scheduled Provider:Vianey SILVERMAN MD Location:[facility] Appointment Type:URO Office Visit Diagnostic Tests Pending * Testosterone Level Total 06/12/23 * PSA Total 06/12/23 * CBC w/ Auto Diff 06/12/23 [facility] evaluation + Plan note Future Appointments Appointment Date:10/21/2024 10:15:00 AM Scheduled Provider:Vianey SILVERMAN MD Location:[facility] Appointment Type:URO Office Visit Diagnostic Tests Pending * PSA Total 10/16/23 [facility] evaluation + Plan note Future Appointments Appointment Date:10/21/2024 10:15:00 AM Scheduled Provider:Vianey SILVERMAN MD Location:[facility] Appointment Type:URO Office Visit 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 assessment information available [facility] Work Phone: Evaluation note* Diagnosis Onset Date Resolution Status BPH (benign prostatic hyperplasia) acute CKD (chronic kidney disease) stage 2, GFR 60-89 ml/min acute [id number] acute NANCY (obstructive sleep apnea) acute Renal cyst acute [facility] Work Phone: Evaluation note* Diagnosis NANCY (obstructive sleep apnea)- Primary Obstructive sleep apnea (adult) (pediatric) Hypersomnia Hypersomnia, unspecified Snoring Other dyspnea and respiratory abnormality Atrial fibrillation, unspecified type (CMS/HCC) Sleep deprivation Problems related to lack of adequate sleep [facility] Narrative No data available for this section [facility] Discharge instructions No data available for this section [facility] InstructionsNot on filedocumented in this encounter [facility] System[facility] note No data available for this section [facility] Advance Directives Latest Code Status on File [...] of brain injury (HCC) Jovita Virk MD [address] [place] [address] Referral ID Status Reason Start Date Expiration Date Visits Requested Visits Authorized [id number] Authorized Patient Preference 2 07/20/2023 3 3 Comments Brain MRI without contrast. H/o TBI 2010. Continues to struggle with cognitive deficits, fatigue, impaired balance, unimproved. Please evaluate for other structural causes of these issues. Fax report to me at [phone]. Specialty Diagnoses / Procedures Referred By Stephany flower Referred To Contact Speech Pathology Diagnoses Cognitive changes Late effect of brain injury (HCC) Jovita Virk MD [address] [place] [address] [place] [address] Referral ID Status Reason Start Date Expiration Date Visits Requested Visits Authorized [id number] Pending [facility] 2 07/20/2023 10 10 Question Answer [...] things a lot. Summary Purpose Family History Relationship Condition Age at Onset Recorded Date/T benjamín brother Family history of mental disorder Unknown father Unknown Heart disease Unknown History of stroke Unknown Malignant neoplasm Unknown family member Family history of other condition Unknow n mother Heart disease Unknown Unknown son Hypertension Unknown Chief Complaint and Reason for Visit Chief Complaint Unknown RENAL 1 year follow up Reason for Visit BPH (benign prostati c hyperplasia) CKD (chronic kidney disease) stage 2, GFR 60-89 ml/min [id number] NANCY (obstructive sleep apnea) Renal cyst Additional Source Comments Reason for Visit (unrecogniz ed section and content) Reason Comments Refill Reason Comments Monitoring/follow-up Reason Comments back issue Reason Comments Follow-up Right knee pain - wa nts injection - last seen 05/24/23 Reason Comments Sleep Apnea Care Teams (unrecognized sec tion and content) Personnel Name: Ilda Peck MD Address: Address: [address] [place] [address] Tur[employer] Manager Relationship Specialty Start Date End Date Jovita Virk MD [address], [place] Physician Physical Medicine & Rehab/PM&R 06/30/20 Turf Manager Relationship Specialty Start Date End Date Jovita Virk MD [address] [place], [place] Physician Physical Medicine & Rehab/PM&R 06/30/20 Turf Manager Relationship Specialty Start Date End Date Jovita Virk MD [address] [place], [place] Physician Physical Medicine & Rehab/PM&R 06/30/20 Turf Manager Relationship Specialty Start Date End Date Ilda Peck MD PCP - General Family Medicine 12/04/17 Turf Manager Relationship Specialty Start Date End Date Ilda Peck MD [address] [place] [address] PCP - General 07/05/16 Team Status: Active Member Role Status Dates Ilda Peck MD Primary Care Provider Active Team Status: Inactive Member Role Status Dates Ilda Peck MD Primary Care Provider Active Start: April 05, 2024 End: April 05, 2024 Tracy Griffin MD Attending Provider Active St art: April 05, 2024 End: April 05, 2024 Team Status: Active Member Role Status Dates Ilda Peck MD Primary Care Provider Active Start: June 03, 2024 Sandoval Knight MD Attending Provider Active Start : June 03, 2024 Team Status: Inactive Member Role Status Dates Ilda Peck MD Primary Care Provider Active Start: June 06, 2024 End: June 06, 2024 Sandoval Knight MD Attending Provider Active Start : June 06, 2024 End: June 06, 2024 Turf Manager Relationship Specialty Start Date End Date Ilda Peck MD [address] [place] [address] PCP - General Family Medicine 05/13/24 Turf Manager Relationship Specialty Start Date End Date Ilda Peck MD [address] [place] [address] PCP - General Family Medicine 05/13/24 (unrecognized sect ion and content) No Status Records FoundNo Status Records FoundNo Status Records FoundNo Status Records FoundNo Status Records FoundNo Status Records FoundNo Status Records FoundNo Status Records Found INFORMATION SOURCE (unrecogn ized section and content) DATE CREATED AUTHOR 01/27/2023 [facility] DATE CREATED AUTHOR AUTHOR'S ORGANIZ ATION 04/27/2023 [facility] DATE CREATED AUTHOR AUTHOR'S ORGANIZ ATION 09/23/2023 [facility] DATE CREATED AUTHOR AUTHOR'S ORGANIZ ATION 04/12/2024 [facility] DATE CREATED AUTHOR AUTHOR'S ORGANIZ ATION 06/05/2024 [facility] DATE CREATED AUTHOR AUTHOR'S ORGANIZ ATION 06/13/2024 [facility] DATE CREATED AUTHOR AUTHOR'S ORGANIZ ATION 07/18/2024 [facility] DATE CREATED AUTHOR AUTHOR'S ORGANIZ ATION 07/19/2024 [facility] EPIC Source Comments (unrecognize d section and content) In the event this informatio n is protected by the Federal Confidentiality of Alcohol and Drug Abuse Patient Records regulations: The Federal rules restrict any use of the information to criminally investigate or prosecute any alcohol or drug abuse patient.[facility] Goals (unrecognized section and content) Goals [...] BE BASED ON THE PRIMARY CLINICAL RECORDS. [facility]. provides no warranty or guarantee of the accuracy or completeness of information in this document.
[2024-08-15 11:47] LABS: Basophils Absolute Auto 0.1 10^3/uL (0.0-0.1); Basophils Percent Auto 1.4 % (0.2-2.0); Eosinophils Absolute Auto 0.1 10^3/uL (0.0-0.7); Eosinophils Percent Auto 2.2 % (0.9-7.0); Hematocrit 45.4 % (42.0-54.0); Hemoglobin 15.2 g/dL (14.0-18.0); Immature Granulocytes Abs Auto 0.04 10^3/uL (0.00-0.03); Immature Granulocytes Pct Auto 1.1 % (0.0-0.5); Lymphocytes Absolute Auto 0.8 10^3/uL (1.2-3.8); Lymphocytes Percent Auto 22.6 % (20.5-60.0); Mean Corpuscular HGB Conc 33.5 g/dL (29.9-35.2); Mean Corpuscular Hemoglobin 29.4 pg (25.9-34.0); Mean Corpuscular Volume 87.8 fL (80.0-94.0); Mean Platelet Volume 9.5 fL (9.5-13.5); Monocytes Absolute Auto 0.4 10^3/uL (0.3-0.8); Monocytes Percent Auto 10.9 % (1.7-12.0); Neutrophils Absolute Auto 2.2 10^3/uL (1.4-6.5); Neutrophils Percent Auto 61.8 % (43.0-75.0); Platelet Count 128 10^3/uL (150-450); Red Blood Count 5.17 10^6/uL (4.70-6.10); Red Cell Distribution Width 13.3 % (11.0-15.0); White Blood Count 3.6 10^3/uL (4.0-11.0)
[2024-08-15 12:25] LABS: Calcium 9.4 mg/dL (8.5-10.1); Carbon Dioxide 26.1 mmol/L (21.0-32.0); Chloride 104 mmol/L (98-107); Estimated GFR (African America >60 (>=60 mL/min/1.73m^2); Estimated GFR (Non-African Ame 60 (>=60 mL/min/1.73m^2); Glucose 80 mg/dL (74-106); Potassium 4.1 mmol/L (3.5-5.1); Sodium 140 mmol/L (136-145)
== END 2024-08-15 11:22 | disposition home or self-care (01) ==
PROVIDERS: PCP Family Medicine; Visit Provider Family Medicine
DX: D72.819 Decreased white blood cell count, unspecified (principal); Z79.899 Other long term (current) drug therapy
CPT/HCPCS: 36415; 80048; 85025

== ENCOUNTER 2024-10-04 15:31 | Outpatient (OUT) | payer BC, MEDICARE, SELFPAY ==
[2024-10-04 15:43] LABS: Hematocrit 46.1 % (42.0-54.0); Hemoglobin 15.8 g/dL (14.0-18.0); Mean Corpuscular HGB Conc 34.3 g/dL (29.9-35.2); Mean Corpuscular Hemoglobin 30.3 pg (25.9-34.0); Mean Corpuscular Volume 88.5 fL (80.0-94.0); Mean Platelet Volume 9.5 fL (9.5-13.5); Platelet Count 138 10^3/uL (150-450); Red Blood Count 5.21 10^6/uL (4.70-6.10); Red Cell Distribution Width 13.3 % (11.0-15.0); White Blood Count 4.2 10^3/uL (4.0-11.0)
[2024-10-04 17:01] LABS: Monocytes Absolute Manual 0.08 10^3/uL (0.30-0.80); Segmented Neut Absolute Manual 3.02 10^3/uL (1.4-6.5)
[2024-10-05 15:42] LABS: Alanine Aminotransferase 33 U/L (16-63); Albumin Globulin Ratio 1.5; Albumin Level 4.4 g/dL (3.4-5.0); Alkaline Phosphatase 62 U/L (46-116); Anion Gap 10.7; Aspartate Amino Transferase 29 U/L (15-37); BUN Creatinine Ratio 25.2; Calcium 9.6 mg/dL (8.5-10.1); Carbon Dioxide 31.2 mmol/L (21.0-32.0); Chloride 104 mmol/L (98-107); Estimated GFR (African America >60 (>=60 mL/min/1.73m^2); Estimated GFR (Non-African Ame >60 (>=60 mL/min/1.73m^2); Globulin 2.9 g/dL; Glucose 93 mg/dL (74-106); Lactate Dehydrogenase 208 U/L (85-227); Potassium 4.9 mmol/L (3.5-5.1); Sodium 141 mmol/L (136-145); Total Protein 7.3 g/dL (6.4-8.2)
[2024-10-05 22:51] LABS: Bilirubin Total 0.5 mg/dL (0.2-1.0)
[2024-10-06 07:08] LABS: Immunoglobulin G, Qn 976 mg/dL (603-1613)
== END 2024-10-04 15:32 | disposition home or self-care (01) ==
LOC: LAB 15:33
PROVIDERS: PCP Family Medicine; Visit Provider Internal Medicine Hematology & Oncology
DX: D72.819 Decreased white blood cell count, unspecified (principal); D69.6 Thrombocytopenia, unspecified
CPT/HCPCS: 36415; 80053; 82784; 83615; 85007; 85027

== ENCOUNTER 2024-10-21 14:01 | Outpatient (OUT) | payer BC, MEDICARE, SELFPAY ==
[2024-10-21 14:59] LABS: Prostate Specific Antigen Dx 0.74 ng/mL (<=4.00)
[2024-10-22 08:09] LABS: Testosterone 371 ng/dL (264-916)
== END 2024-10-21 14:02 | disposition home or self-care (01) ==
LOC: LAB 14:02
PROVIDERS: PCP Family Medicine; Visit Provider Urology
DX: N40.1 Benign prostatic hyperplasia with lower urinary tract symptoms (principal); E29.1 Testicular hypofunction
CPT/HCPCS: 36415; 84153; 84403

== ENCOUNTER 2024-11-20 11:26 | Outpatient (OUT) | payer BC, MEDICARE, SELFPAY ==
--- OUTSIDE RECORDS SUMMARY | 2024-11-20 11:44 | XMS_ITS | CCD ---
Author Organization [facility] Care Team Providers Care Technical Customer Support Specialist Name Role Phone Ilda Peck Primary Care Physician [phone] Moose PRIETO, Jovita Unavailable Jovita Virk MD Unavailable CISCO Flores, DR GONSALES Primary Care [...] ., DR SAEED Landa Attending Unavaila ble ARAM THORPE ., DR SAEED Landa Consulting Unavaila ble [...] ., DR SAEED Landa Admitting Unavaila ble CANTU ., DR SAEED Landa Attending Unavaila ble CANTU JR ., DR SAEED Landa Consulting [...] Unavailable Ilda Peck MD Primary Care Provider [phone] ILDA PECK Primary Care Unavailable SHAWANDA HERNANDEZ Attending Unavailable Sandoval Knight Unavailable MD Ilda Peck Primary Care Provider [phone] MD Tracy Griffin Attending Provider Ilda Peck Primary Care Unavailable Tracy Griffin Attending Unavailable Tracy Griffin Admitting Unavailable Ilda Peck MD Primary Care Provider [phone] JEOVANNY SCOTT Referring Unavailable JEOVANNY SCOTT Attending [...] DAWSON Attending Unavailable SAGE GOODE Attending Unavailable Unavailable Primary Care Provider UnavailIlda Hernandez MD Primary Care Provider [phone] OSMIN ANTHONY Attending Unavaila ble HOY, ILDA M Referring Unavailable HOY, ILDA M Primary Care Unavailable OSMIN ANTHONY Attending Unavaila ble HOY, ILDA M Referring Unavailable HOY, ILDA M Primary Care Unavailable OSMIN ANTHONY Attending Unavaila ble HOY, ILDA M Referring Unavailable HOY, ILDA M Primary Care Unavailable Shawanda MEJIA Attending Unavailable Vianey SILVERMAN Attending Unavailable Vianey SILVERMAN Attending Unavailable Vianey SILVERMAN Attending Unavailable Shawanda MEJIA Attending Unavailable Shawanda MEJIA Attending Unavailable Cisco PRIETO, Ilda Pompa Primary Care Provider [phone] Allergies Allergy Classification Reported Allergen(s) Allergy Type Date of Onset Reaction(s) Facility (6 sources) Ciprofloxacin; Translations: [ciprofloxacin] Drug Allergy 4 Patient reported problems (finding) [facility] [place] (1 source) Ciprofloxacin Drug Allergy 3 [facility] Repository (1 source) Ciprofloxacin; Translations: [Cipro] Drug Allergy [facility] Repository (1 source) No Known Medication Allergies; Translations: [No Known Medication Allergies] Propensity to adverse reactions (disorder) [facility] Repository Medications Current Medications Medication Drug Class(es) Dates Sig (Normalized) Sig (Original) acetaminophen 325 mg oral tablet (5 sources) Start: 06-27-2011 take 2 tablets by mouth every four hours as needed acetaminophen (TYLENOL) 325 MG tablet Take 2 Tabs by mouth every 4 hours as needed. 30 Tab 30 06/27/2011 Active amantadine hydrochloride 100 mg oral capsule (20 sources) Influenza A M2 Protein Inhibitor Start: 09-22-2023 take 1 capsule by mouth once daily amantadine (SYMMETREL) 100 MG capsule TAKE 1 CAPSULE BY MOUTH EVERY DAY 90 Capsule 0 09/22/2023 Active Start: 05-07-2019 take 1 mg by mouth [...] by mouth. apixaban 5 mg oral tablet (17 sources) Factor Xa Inhibitor Start: 06-27-2023 take 1 tablet by mouth twice daily Eliquis 5 mg oral tablet 5 mg = 1 tab(s), Oral, BID, Refills(s) 0 Start Date: 10/16/23 Status: Ordered End: 06-12-2024 take 1 tablet by mouth in the morning apixaban (Eliquis) 2.5 MG tablet Take 2.5 mg by mouth in the morning and 2.5 mg before bedtime. 06/12/2024 Discontinued (Duplicate order) Ascorbic Acid (20 sources) Vitamin C Start: 05-07-2019 Vitamin C Yrn y, Refills(s) 0 Start Date: 05/07/19 Status: Ordered Start: 05-07-2019 Ascorbic Acid (VITAMIN C) 100 mg tablet Daily, Refills(s) 0 0 05/07/2019 Active take 1 tablet by darren th once daily ascorbic acid, vitamin C, (ascorbic acid with steph hips) 500 mg tablet Take 500 mg by mouth daily. Active take 1 tablet by darren th once daily ascorbic acid (Vitamin C) 1000 MG ER tablet Take 1,000 mg by mouth Daily Active Ascorbic Acid (V itamin C) 100 MG CHEW Vitamin C 0 Active End: 04-26-2023 ASCORBIC ACID (VITAMIN C ORA L) Indications: Leukopenia, unspecified type , Thrombocytopenia (HCC) , Hypothyroidism, unspecified type Take 1,000 mg by mouth. 0 04/26/2023 Discontinued (Course of therapy completed) Comment on above: Daily, Refills(s) 0 Take 1,000 mg by darren th. carvedilol 6.25 mg oral tablet (4 sources) alpha-Adrenergic Nalini, beta-Adrenergic Nalini Start: 3 End: 4 take 1 tablet by mouth in the morning, then take 1 tablet by mouth at mealtime carvediloL (COREG) 6.25 mg tablet Take 1 tablet (6.25 mg total) by mouth in the morning and 1 tablet (6.25 mg total) in the evening. Take with meals. 08/03/2023 08/02/2024 Active take 1 tablet by mouth every twe lve hours Coreg 25 MG 1 tablet with food Orally Twice a day Active cholecalciferol 0.125 mg oral tablet (6 sources) Vitamin D take 1 tablet by mouth once daily cholecalciferol (Vitamin D-3) 125 MCG (5000 UT) tablet Take 5,000 Units by mouth Daily Active chondroitin sulfates 400 mg / glucosamine hydrochloride 500 mg oral tablet (4 sources) take 3 tablets by mouth once daily glucosamine-chondroitin 500-400 mg tablet Take 3 tablets by mouth daily. Active End: 04-26-2023 take 750 mg by [...] # 10 mL, Refills(s) 1, Pharmacy: [facility]/pharmacy #[id number], 167, cm, 10/05/21 11:32:00 EST, [...] 0 dilTIAZem hydrochloride 120 mg oral tablet (3 sources) Calcium Channel Nalini take 1 tablet by mouth once daily diltiazem (CARDIZEM) 120 MG tablet Take 120 mg by mouth daily. Active docosahexaenoic acid 120 mg / eicosapentaenoic acid 180 mg oral capsule (5 sources) take 1 capsule by mouth once daily Dexter-3 Fatty Acids (FISH OIL) 1000 MG CAPS Take 1 Capsule by mouth daily. 0 Active DOCOSAHEXANOIC ACID/EPA (FISH OIL ORAL) (3 sources) take 1200 mg by mouth once daily DOCOSAHEXANOIC ACID/EPA (FISH OIL ORAL) Take 1,200 mg by mouth daily. Active take 1200 mg by mouth once daily DOCOSAHEXANOIC ACID/EPA (FISH OIL ORAL) Take 1,200 mg by mouth daily. 0 Active Fish Oils (9 sources) Start: 05-07-2019 Fish Oil Oral, Refill(s) 0 Start Date: 05/07/19 Status: Ordered hydrALAZINE hydrochloride 25 mg oral tablet (11 sources) Arteriolar Vasodilator Start: 05-07-2024 take 1 tablet by mouth three times daily hydrALAZINE 25 mg Tab 25 mg = 1 tab(s), Oral, TID, Refills(s) 0 Start Date: 05/07/24 Status: Ordered Ibuprofen (6 sources) Nonsteroidal Anti-inflammatory Drug take 4 tablets by mouth twice daily ibuprofen (ADVIL) 200 mg tablet Take 800 mg by mouth twice daily. 0 Active Ibuprofen (ADVIL ORAL) Take by mouth prn 0 Active Comment on above: Take 800 mg by mouth twice daily. levothyroxine sodium 0.1 mg oral tablet (20 sources) l-Thyroxine Start: take 1 tablet by mouth before mealtime levothyroxine (Synthroid, Levoxyl) 100 MCG tablet Indications: Sarah's disease (CMS/HCC) Take 1 tablet (100 mcg) by mouth in the morning. Take before meals. 90 tablet 3 06/12/2024 Active Start: 06-12-2024 take 1 tablet by darren th before mealtime levothyroxine (Synthroid, Levoxyl) 100 MCG tablet Indications: Sarah's disease (CMS/HCC) Take 1 tablet (100 mcg) by mouth in the morning. Take before meals. 90 tablet 3 06/12/2024 Active Start: 06-06-2024 End: 06-12-2024 take 1 tablet by mouth before mealtime levothyroxine (Synthroid, Levoxyl) 100 MCG tablet Indications: Sarah's disease (CMS/HCC) Take 1 tablet (100 mcg) by mouth in the morning. Take before meals. 90 tablet 3 06/12/2024 Active Start: 05-07-2019 take 1 tablet by darren th once daily levothyroxine 150 mcg (0.15 mg) Tab 150 mcg = 1 tab(s), Oral, Daily, Refills(s) 0 Start Date: 05/07/19 Status: Ordered Start: 02-08-2017 take 1 tablet by darren th once daily levothyroxine (SYNTHROID) 150 MCG tablet Take 1 Tablet by mouth daily. 30 Tablet 3 02/08/2017 Active Start: 08-25-2016 levothyroxine (SYNTHROID, LEVOTHROID) 175 [...] 02/08/2017 Active take 0.5 tablet by m out once daily liothyronine (Cytomel) 25 MCG tablet Take 25 mcg by mouth Daily Take 0.5 tabs po qd Active Comment on above: Take 25 mcg by mouth once daily. lithium aspartate 20 mg oral capsule (6 sources) take 1 capsule by mouth once daily Nutritional Supplements (CREATINE) 750 MG CAPS Take 1 Capsule by mouth daily. 0 Active take 1 capsule by mouth once darius ly Opp Aspartate 20 mg cap Take 1 capsule by mouth once daily. 0 Active Comment on above: Take 1 capsule by mo [facility] once daily. memantine hydrochloride 5 mg oral tablet (5 sources) I-bikxqu-A-aspartat e Receptor Antagonist Start: 2 End: 2 take 1 tablet by mouth once daily memantine (NAMENDA) 5 MG tablet Take 1 Tablet by mouth daily. 30 Tablet 3 07/20/2022 Active tamsulosin hydrochloride 0.4 mg oral capsule (20 sources) alpha-Adrenergic Nalini Start: 5 take 1 capsule by mouth once daily tamsulosin 0.4 mg Cap 0.4 mg = 1 cap(s), Oral, Daily, # 90 cap(s), Refills(s) 3, Pharmacy: [facility]/pharmacy #[id number], 170, cm, 10/21/24 11:01:00 EST, Height/Length Dosing, 84, kg, 10/21/24 11:01:00 EST, Weight Dosing Start Date: 10/21/24 Status: Ordered Start: 11-24-2021 End: 11-19-2022 take 1 capsule by mouth twice daily Flomax 0.4 mg Cap 0.4 mg = 1 cap(s), Oral, BID, X 90 day(s), # 180 cap(s), Refills(s) 3, [id number], cm, 10/05/21 11:32:00 EST, Height/Length Dosing, 83, kg, 10/05/21 11:32:00 EST, Weight Dosing Start Date: 11/24/21 Stop Date: 11/19/22 Status: Ordered Start: 02-08-2017 take 1 capsule by [facility] once daily tamsulosin 0.4 mg Cap 0.4 mg = 1 cap(s), Oral, Daily, # 90 cap(s), Refills(s) 3, [id number] 170, cm, 05/07/24 15:15:00 EDT, Height/Length Dosing, 83, kg, 05/07/24 15:15:00 EDT, Weight Dosing Start Date: 06/20/24 Status: Ordered take 1 capsule by [facility] every twenty-four hours in the morning tamsulosin (FLOMAX) 0.4 mg capsule,extended release 24hr Take 1 capsule (0.4 mg total) by mouth in the morning. Active Comment on above: 0.4 mg once daily. testosterone cypionate 200 mg/ml injectable solution (17 sources) Androgen Start: 05-03-2023 Depo-Testosterone 200 mg/mL intramuscular solution 300 mg, IntraMuscular, q4wk, # 10 mL, Refills(s) 1, Pharmacy: [facility]/pharmacy #[id number], 170, cm, 12/02/22 8:17:00 EST, Height/Length Dosing, 83.2, kg, 12/02/22 8:17:00 EST, Weight Dosing Start Date: 05/03/23 Status: Ordered Start: 09-07-2022 Depo-Testoster one 200 mg/mL intramuscular solution 300 mg, IntraMuscular, q4wk, # 10 mL, Refills(s) 1, Pharmacy: [facility]/pharmacy #[id number], 167, cm, 10/05/21 11:32:00 EST, Height/Length Dosing, 83, kg, 05/10/22 10:08:00 EDT, Weight Dosing Start Date: 09/07/22 Status: Ordered Start: 01-04-2022 Depo-Testoster one 200 mg/mL intramuscular solution 300 mg, IntraMuscular, q4wk, # 10 mL, Refills(s) 1, Pharmacy: [facility]/pharmacy #[id number], 167, cm, 10/05/21 11:32:00 EST, Height/Length Dosing, 83, kg, 10/05/21 11:32:00 EST, Weight Dosing Start Date: 01/04/22 Status: Ordered Start: 12-10-2018 testosterone c ypionate (DEPO-TESTOSTERONE) 200 MG/ML injection Inject 200 mg into the muscle once a month. 0 12/10/2018 Active Testosterone Cyp ionate 200 MG/ML 1.5 mL Intramuscular EVERY 4 WEEKS Active Comment on above: INJECT 1ML INTRAMUSC ULARLY EVERY MONTH Vitamin B Complex injectable solution (3 sources) Start: 05-07-2019 Vitamin B Complex injectable solution Refill(s) 0 Start Date: 05/07/19 Status: Ordered Vitamin D (17 sources) Start: 08-31-2021 Vitamin D International_Unit, Oral, qWeek, Refills(s) 0 Start Date: 08/31/21 Status: Ordered Completed/Discontinued Medications Medication Drug Class(es) Dates Sig (Normalized) Sig (Original) aspirin 325 mg delayed release oral tablet (4 sources) Platelet Aggregation Inhibitor, Nonsteroidal Anti-inflammatory Drug [...] mg total) by mouth in the morning. Active Comment on above: Take 325 mg by mouth once daily. atomoxetine 60 mg oral capsule (1 source) Norepinephrine Reuptake Inhibitor End: 04-26-20 23 take 1 capsule by mouth once daily atomoxetine (STRATTERA) 60 mg capsule Take 60 mg by mouth once daily. 0 04/26/2023 Discontinued (Course of therapy completed) Comment on above: Take 60 mg by mouth once daily. Bupivacaine (3 sources) Amide Local Anesthetic Start: 10-08-19 25 End: 10-08-19 30 mg, intra-articular, One-Time Injection, Starting on Mon10/08/24 at 1440, For 1 dose Start: 06-11-2024 End: 06-11-2024 30 mg, intra-articular, One- Time Injection, Starting on Mon06/11/24 at 1129, For 1 dose Start: 11-02-2023 End: 11-02-2023 BUPivacaine HCl (MARCAINE) 0 .5 % (5 mg/mL) injection 30 mg Creatine (1 source) End: 04-26-2023 CREATINE MONOHYDRATE (CREATINE ORAL) Indications: Leukopenia, unspecified type , Thrombocytopenia (HCC) , Hypothyroidism, unspecified type Take by mouth. 0 04/26/2023 Discontinued (Course of therapy completed) Comment on above: Take by mouth. 1 ml dexamethasone phosphate 4 mg/ml injection (3 sources) Corticosteroid Start: 10-08-2024 End: 10-08-2024 8 mg, intra-articular, One-Time Injection, Starting on Mon10/08/24 at 1440, For 1 dose Start: 06-11-2024 End: 06-11-2024 8 mg, intra-articular, One-T benjamín Injection, Starting on Mon06/11/24 at 1129, For 1 dose Start: 11-02-2023 End: 11-02-2023 dexAMETHasone (DECADRON) inj ection 8 mg folic acid 1 mg oral tablet (1 source) Start: 02-05-2018 End: 04-26-2023 take 1 tablet by mouth once daily folic acid 1 mg tablet TAKE ONE TABLET BY MOUTH DAILY 30 tablet 5 02/05/2018 04/26/2023 Discontinued (Course of therapy completed) Comment on above: TAKE ONE TABLET BY MOUTH DAILY omega-3 fatty acids (FISH OIL CONCENTRATE) 1,000 mg cap (1 source) take 1 capsule by mouth twice daily omega-3 fatty acids (FISH OIL CONCENTRATE) 1,000 mg cap Take 2 g by mouth twice daily. 0 Active Comment on above: Take 2 g by mouth twice daily. omega-3s/dha/epa /fish oil/D3 (VITAMIN-D + OMEGA-3 ORAL) (1 source) Start: 08-31-2021 omega-3s/dha/e pa/fis h oil/D3 (VITAMIN-D + OMEGA-3 ORAL) Take by [...] reaction] Onset: 1 08-24-2011 Chronic Allergic reactions (9 sources) Eczema; Translations: [Dermatitis, unspecified] Onset: 9 05-29-2019 Episodic Asthma (1 source) Asthmatic bronchitis; Translations: [Unspecified asthma, uncomplicated] 11-30-2017 Chronic Cardiac dysrhythmias (20 sources) Atrial fibrillation; Translations: [Unspecified atrial fibrillation] Onset: 6 05-29-2019 Chronic Chronic kidney disease (3 sources) Chronic kidney disease stage 3; Translations: [Chronic kidney disease, stage III (moderate)] 06-05-2024 Chronic Coagulation and hemorrhagic disorders (13 sources) Platelet count below reference range; Translations: [Thrombocytopenia, unspecified] Onset: 8 05-29-2019 Chronic Conditions associated with dizziness or vertigo (1 source) Vertigo; Translations: [Dizziness and giddiness] 11-30-2017 Episodic Congestive heart failure; nonhypertensive (3 sources) 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 Diseases of white blood cells (7 sources) Neutropenia, unspecified; Translations: [Neutropenia] Onset: 2 Chronic Disorders usually diagnosed in infancy, childhood, or adolescence (5 sources) Attention deficit hyperactivity disorder, predominantly inattentive type; Translations: [Other specified behavioral and emotional disorders with onset usually occurring in childhood and adolescence] Onset: 1 11-30-2017 Chronic Essential hypertension (3 sources) Hypertensive disorder 04-29-2024 Chronic Genitourinary symptoms and ill-defined conditions (5 sources) Urge incontinence; Translations: [Urge incontinence of [...] unspecified chronic kidney disease] Onset: 4 Chronic Miscellaneous mental health disorders (1 source) Unspecified persistent mental disorders due to conditions classified elsewhere Onset: 1 08-24-2011 Chronic Nutritional deficiencies (9 sources) Cobalamin deficiency; Translations: [Deficiency of other specified B group vitamins] Onset: 8 05-29-2019 Episodic Open wounds of extremities (1 source) Puncture wound of thumb of left hand; Translations: [Puncture wound with foreign body of left thumb without damage to nail, initial encounter] Onset: 4 Episodic Osteoarthritis (17 sources) Bilateral arthritis of knees; Translations: [Bilateral primary osteoarthritis of knee] Onset: 6 05-29-2019 Chronic Other aftercare (4 sources) Long-term current use of 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; Translations: [correction (current) use of 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s] Onset: 4 Episodic Other and ill-defined cerebrovascular disease (3 sources) Cerebrovascular disease 04-29-2024 Chronic Other connective tissue disease (7 sources) History of total knee arthroplasty; Translations: [Presence of left artificial knee joint] Onset: 7 05-29-2019 Chronic Other connective tissue disease (1 source) Knee joint replacement Onset: 7 05-29-2019 Chronic Other connective tissue [...] kidney, acquired] 06-05-2024 Episodic Other endocrine disorders (12 sources) Testicular hypofunction; Translations: [Testicular hypofunction] Onset: 2 Chronic Other endocrine disorders (17 sources) Male hypogonadism 03-14-2019 Chronic Other endocrine disorders (5 sources) Testicular hypofunction; Translations: [TESTICULAR HYPOFUNCTION] Onset: 2 Chronic Other endocrine disorders (4 sources) Testicular hyperfunction; Translations: [TESTICULAR HYPERFUNCTION] Onset: 3 Chronic Other injuries and conditions due to external causes (17 sources) H/O: head injury 03-14-2019 Episodic Other lower respiratory disease (2 sources) Snoring; Translations: [Snoring] 07-17-2024 Episodic Other male genital disorders (17 sources) Secondary erectile dysfunction 08-31-2021 Chronic Other male genital disorders (8 sources) Male erectile dysfunction, unspecified; Translations: [Erectile [...] Chronic Other nervous system disorders (1 source) Attention or concentration deficit Onset: 07-05-2011 Chronic Other nervous system disorders (1 source) Frontal lobe and executive function deficit Onset: 07-05-2011 Chronic Other nervous system disorders (1 source) Cognitive communication deficit Onset: 07-05-2011 Chronic Other nervous system disorders (1 source) Other symptoms and signs involving cognitive functions and awareness; Translations: [Other signs and symptoms involving cognition] Episodic Other nervous system disorders (1 source) Dysarthria; Translations: [Dysarthria and anarthria] 11-30-2017 Episodic Other non-traumatic joint disorders (1 source) Arthropathy, unspecified, lower leg Onset: 9 05-29-2019 Chronic Other nutritional; endocrine; and metabolic disorders (4 sources) Overweight in adulthood with body mass index of 25 or more but less than 30; Translations: [Body mass index (BMI) 28.0-28.9, adult] Episodic Other nutritional; endocrine; and metabolic disorders (3 sources) Overweight 04-29-2024 Episodic Other screening for suspected conditions (not mental disorders or infectious disease) (2 sources) Encounter for screening for malignant neoplasm of prostate; Translations: [Screening for malignant neoplasm of colon done] Onset: 2 Episodic Residual codes; unclassified (8 sources) Sleep apnea; Translations: [Sleep apnea, unspecified] [...] Onset: 4 07-08-2024 Chronic Residual codes; unclassified (1 source) Unspecified sleep apnea Onset: 9 05-29-2019 Chronic Residual codes; unclassified (2 sources) Sleep deprivation; Translations: [Sleep deprivation] 07-17-2024 Episodic Spondylosis; intervertebral disc disorders; other back problems (13 sources) Cervical spondylosis; Translations: [Other spondylosis with myelopathy, cervical region] Onset: 7 10-13-2006 Chronic Spondylosis; intervertebral disc disorders; other back problems (20 sources) Cervical spine ankylosis; Translations: [Fusion of spine, cervical region] Onset: 1 11-11-2021 Episodic Thyroid disorders (20 sources) Hypothyroidism; Translations: [Hypothyroidism, unspecified] Onset: 1 Resolved: 4 06-28-2011 Chronic Unclassified (3 sources) Patient encounter status 05-07-2024 Unclassified (2 sources) Other persistent atrial fibrillation; Translations: [Other persistent atrial fibrillation] Onset: Unclassified (2 sources) Puncture wound of left thumb with foreign body 08-13-2024 Past or Other Problems Problem Classification Problem Date Documented Date Episodic/Chronic Chronic kidney disease (1 source) Chronic kidney disease Deficiency and other anemia (5 sources) Anemia; Translations: [Anemia, unspecified] Onset: 12-06-2017 05-29-2019 Episodic Deficiency and other anemia (1 source) Anemia, unspecified Onset: 12-06-2017 05-29-2019 Episodic Intracranial injury (6 sources) Traumatic brain injury; Translations: [Unspecified intracranial injury with loss of consciousness of unspecified duration, initial encounter] Onset: 02-23-2016 02-23-2016 Episodic Other aftercare (1 source) Care involving other physical therapy Onset: 07-05-2011 07-05-2011 Episodic Other aftercare (1 source) Encounter for occupational therapy Onset: 07-07-2011 07-07-2011 Episodic Other aftercare (1 source) Encounter for vocational therapy Onset: 08-24-2011 08-24-2011 Episodic Other circulatory disease (2 sources) Orthostatic [...] SYNDROME RIGHT SHOULDER] Onset: 03-09-2022 Episodic Other connective tissue disease (1 source) Muscle weakness (generalized) Onset: 07-29-2011 07-29-2011 Episodic Other nervous system disorders (4 sources) Incoordination; Translations: [Unspecified lack of coordination] Onset: 07-05-2011 07-05-2011 Episodic Other nervous system disorders (4 sources) Impaired cognition; Translations: [Other symptoms and signs involving cognitive functions and awareness] Onset: 08-24-2011 08-24-2011 Episodic Other nervous system disorders (1 source) Lack of coordination Onset: 07-05-2011 07-05-2011 Episodic Other skin disorders (1 source) Vitiligo; [...] [Other specified postprocedural states] Onset: 11-16-2023 Episodic Residual codes; unclassified (2 sources) Memory loss Onset: 06-28-2011 01-08-2019 Episodic Superficial injury; contusion (5 sources) Traumatic hematoma; Translations: [Contusion of unspecified part of head, initial encounter] Onset: 06-28-2011 06-28-2011 Episodic Viral infection (6 sources) Verruca vulgaris; Translations: [Viral wart, unspecified] Onset: 04-28-2005 05-29-2019 Episodic Results Test Name Value Interpretation Reference Range Facility Urology Office/Clinic Noteon 10-21-2024 Urology Office/Clinic Note Urology Office/Clinic Note Chief Complaint 1 year f/u HPI Staff 64yr old male pt here for 1yr f/u with PSA. Previous Dx: BPH with urinary obstruction, hypogonadism male, urge incontinence, ED *Tamsulosin 0.4mg QD PSA 09/06/21 - 0.70 06/15/22 - 0.79 He did have labs done @ [facility] but no PSA Dysuria: denies Incomplete bladder emptying: denies Hematuria: denies Frequency: every hour to 1 1/2 hours Urgency: denies Nocturia: once nightly Stream: denies hesitation Leaking: denies Post void dripping: yes from blowing hos nose Wearing pads/ Depends: denies Urge incontinence: denies Stress incontinence: _denies Incontinence without Sensory Awareness: denies Abdominal pain: _denies Flank pain: _denies Sexual complaints: denies History of Present Illness Tests reviewed: reviewed UA I have reviewed the previous health record information and history for this patient from Dr. Silverman. I have reviewed and verified the staff HPI to be accurate for this encounter. Review of Systems PHQ Score Initial [...] See HPI. Physical Exam Vitals & Measurements T: 36.4 ???C(Oral) BP: 128/84 HT: 67 in HT: 170.0 cm WT: 84 kg WT: 185.188 lb BMI: 29.07 General Appearance: alert, no distress, well nourished, well developed male. Assessment/Plan 1. BPH with urinary obstruction (N40.1: Benign prostatic hyperplasia with lower urinary tract symptoms) PSA 09/06/21 - 0.70 06/15/22 - 0.79 PVR 10/16/23 - 20 mL UA today negative for blood and infection. Taking Tamsulosin 0.4 mg qd. No longer getting up every night but does try to limit fluid intake prior to bedtime. Good stream. Feels he empties. Denies any accidents but does get urgency if he delays voiding. Pt recently had blood work done for PCP but PSA was not done. Recommended pt to update this. -Cont Tamsulosin wo changes. Refills sent to [facility]. -Complete PSA level soon. Will call pt with results. -F/u in 1 yr 2. Hypogonadism male (E29.1: Testicular hypofunction) Testosterone Levels: 04/27/22 - 404 11/08/22 - 993 01/20/23 - 347 05/19/23 - 456 09/29/23 - 443. HGB 15.1 (was not on TRT) Was previously on Testosterone injections 300mg IM q4wks, last injection 06/12/23. Did not notice changes after last injection. Had elected to stop injections due to heart and kidney issues. Recommended pt to check testosterone level to ensure wnl. Pt amenable to proceed. -Complete T level soon. Will call pt with results. 3. ED (erectile dysfunction) (N52.9: Male erectile dysfunction, unspecified) Previously elected not to start ED meds due to having had recent cardiac complications. Again educated pt he can try oral meds given he is not on any nitro products. Pt not interested at this time. Follow-up With When Contact Information HERRERA PRIETO, Vianey Crawford, URL [facility] [address], [place] [address]- [phone] Additional Instructions: 1 yr w/ PSA and T level Patient Education Benign Prostatic Hyperplasia I, Nicki Jackson, personally scribed for Dr. Silverman on 10/21/2024 11:56:36. . Documentation recorded by the scribe, Nicki Jackson, accurately reflects the services(s) I performed and decisions made by me. Authenticated by Dr. Silverman on 10/21/2024 11:59:18. Problem List/Past Medical History Ongoing Acute combined systolic (congestive) and diastolic (congestive) heart failure ADD (attention deficit disorder) Atrial fibrillation BMI 28.0-28.9,adult BPH with urinary obstruction Chronic anticoagulation CVD (cerebrovascular disease) Eczema ED (erectile dysfunction) Foreign body of thumb H/O head injury HTN (hypertension) Hypogonadism male Hypothyroidism Lumbar radiculopathy Male impotence Neutropenia Nocturia Overweight Protein in urine Screening for malignant neoplasm of colon Sleep apnea Spinal stenosis Thrombocytopenia Urge incontinence Vitamin B12 deficiency Weak urine stream Historical No qualifying data Procedure/Surgical History Colonoscopy (05/29/2024), Cystourethroscopy with dilation of urethral stricture (12/21/2016), Colonoscopy (08/2009), Arthroscopy of shoulder, Cardioversion, Cervical spinal fusion, Knee arthroplasty, Repair of left inguinal hernia, Rotator cuff repair, JAMIN procedure. Medications Eliquis 5 mg oral tablet, 5 mg= 1 tab(s), Oral, BID hydrALAZINE 25 mg Tab, 25 mg= 1 tab(s), Oral, TID levothyroxine 150 (more content not included)... Normal [facility] Comment on above: Result Comment: Elec tronically Signed By: Vianey SILVERMAN MD\.br\Date and Time Signed: 10/21/24 11:59 EST\.br\Electronically Co-Signed By: Nicki Jackson\.br\Date and Time Co-Signed: 10/21/24 11:57 EST $ Large Joint Injection: R k neeon 10-08-2024 Osmin Anthony MD 10/08/2024 2:51 PM $ Large Joint Injection: R knee on 10/08/2024 2:40 PM Indications: pain Details: 22 G needle, medial [...] with betadine and alcohol.). MANUALLY TRANSCRIBED RESULTS [facility] Ambulatory Visit Summaryon 1 10-13-2023 Ambulatory Visit Summary Ambulatory Visit Summary VIANEY LACEY :1960 Visit Date:08/13/2024 Ambulatory Visit Instructions Your Care Team Attending Physician - Shawanda MEJIA MD Primary Care Physician - Ilda Peck MD This Is Your Medications List apixaban (Eliquis 5 mg oral tablet) ergocalciferol (Vitamin D) hydrALAZINE (hydrALAZINE 25 mg Tab) levothyroxine (levothyroxine 150 mcg (0.15 mg) Tab) liothyronine (liothyronine 25 mcg Tab) tamsulosin (tamsulosin 0.4 mg Cap) Procedures Performed Colonoscopy (05/29/2024), Cystourethroscopy with dilation of urethral stricture (12/21/2016), Colonoscopy (08/2009), Arthroscopy of shoulder, Cardioversion, Cervical spinal fusion, Knee arthroplasty, Repair of left inguinal hernia, Rotator cuff repair, JAMIN procedure. Discharge Vitals Heart Rate (Peripheral) 72 Respiratory Rate 16 Blood Pressure 122/82 Height 170 cm Height 67 in What to do next Scheduled Follow-Up Appointments Monday 10:15 AM EST With: HERRERA PRIETO, Vianey Crawford Where: [facility] of [address] [address]- Medications What How Much When Instructions Unchanged apixaban (Eliquis 5 mg oral tablet) 1 Tablets By Mouth 2 times a day Unchanged ergocalciferol (Vitamin D) By Mouth Every week Unchanged hydrALAZINE (hydrALAZINE 25 mg Tab) 1 Tablets By Mouth 3 times a day Unchanged levothyroxine (levothyroxine 150 mcg (0.15 mg) Tab) 1 Tablets By Mouth Every day Unchanged liothyronine (liothyronine 25 mcg Tab) 1 Tablets By Mouth Every day Unchanged tamsulosin (tamsulosin 0.4 mg Cap) 1 Capsules By Mouth Every day Allergies Cipro (Patient reported problems) Problems Ongoing [...] for choosing us for your care. Normal [facility] Office Visiton 07-16-2024 Follow-up visit [id number] Lane Lacey 1960 M Date Provider Department Center 07/16/[address] [facility] History Problem Relation Age of Onset Cancer Mother Diabetes Mother Coronary artery disease Father Stroke Father Cancer Father Family Status - Relation Status Age at Mother Father Level of Service:87639 SD OFFICE/OUTPATIENT ESTABLISHED LOW MDM 20 MIN Normal [facility] $ Large Joint Injection: Ty fang 06-11-2024 Osmin Anthony MD 06/11/2024 12:03 PM $ Large Joint Injection: R knee on 06/11/2024 11:29 AM Indications: pain Details: 22 G needle, [...] with betadine and alcohol.). MANUALLY TRANSCRIBED RESULTS [facility] Orders Onlyon 06-11-[id number] Lacey 1960 M Date Provider Department Center 06/11/2024 [facility] [place] [facility] Family History Problem Relation Age of Onset Cancer Mother Diabetes Mother Coronary artery disease Father Stroke Father Cancer Father Family Status - Relation Status Age at Mother Father Normal [facility] Erythrocyte distribution wid th Auto (RBC) [Ratio]on 06-03-2024 Erythrocyte distribution width (RBC) [Ratio] 13.3 % 11.0-15.0 [facility] Estimated glomerular filtrat ion rate (GFR) non- Americanon 06-03-2024 GFR/1.73 sq M.predicted among non-blacks MDRD (S/P/Bld) [Vol rate/Area] mL/min/{1.73_m2} >=60 [facility] Hematocrit Auto (Bld) [Volum e fraction]on 06-03-2024 Hematocrit (Bld) [Volume fraction] 45.4 % 42.0-54.0 [facility] Hemoglobin [Mass/volume] in Bloodon 06-03-2024 Hemoglobin (Bld) [Mass/Vol] 15.4 g/dL 14.0-18.0 [facility] Laboratory - Chemistry and C hemistry - challengeon 06-03-2024 Albumin [Mass/Vol] 3.8 g/dL 3.4-5.0 [facility] Calcium [Mass/Vol] 8.9 mg/dL 8.5-10.1 [facility] Chloride [Moles/Vol] 101 mmol/L 98-107 [facility] CO2 [Moles/Vol] 31.2 mmol/L 21.0-32.0 [facility] Creatinine [Mass/Vol] 1.06 mg/dL 0.70-1.30 [facility] GFR/1.73 sq M.predicted MDRD (S/P/Bld) [Vol rate/Area] mL/min/{1.73_m2} >=60 [facility] Glucose [Mass/Vol] 91 mg/dL 74-106 [facility] Magnesium [Mass/Vol] 1.9 mg/dL 1.8-2.4 [facility] Potassium [Moles/Vol] 3.9 mmol/L 3.5-5.1 [facility] Sodium [Moles/Vol] 138 mmol/L 136-145 [facility] Urate [Mass/Vol] 4.7 mg/dL 3.5-7.2 [facility] Urea nitrogen [Mass/Vol] 18.0 mg/dL 7.0-18.0 [facility] Urea nitrogen/Creatinine [Mass ratio] 17.0 mg/mg [facility] Bilirubin Ql (U) Negative NEGATIVE [facility] Glucose (U) [Mass/Vol] Negative NEGATIVE [facility] Ketones Ql (U) Negative NEGATIVE [facility] pH (U) 5.5 [pH] 5.0-9.0 [facility] Specific gravity (U) [Rel density] 1.020 1.005-1.025 [facility] Urobilinogen Qn (U) 0.2 {Brenda'U}/dL 0.2-1.0 [facility] Laboratory - Specimen inform ationon 06-03-2024 Appearance (U) CLEAR CLEAR [facility] Color (U) YELLOW YELLOW [facility] Laboratory - Urinalysison Leukocyte esterase Test strip Ql (U) Negative NEGATIVE [facility] Mucus Ql (Urine sed) NONE SEEN NONE SEEN [facility] Nitrite Ql (U) Negative NEGATIVE [facility] Protein (U) [Mass/Vol] 6.9 mg/dL <=11.9 [facility] Protein Ql (U) Negative NEG/TRACE [facility] Leukocytes [#/volume] correc kim for nucleated erythrocytes in Blood by Automated counon 06-03-2024 WBC corrected for nucl RBC Auto (Bld) [#/Vol] 3.2 10 3/uL Low 4.0-11.0 [facility] MCH Auto (RBC) [Entitic mass ]on 06-03-2024 MCH (RBC) [Entitic mass] 29.7 pg 25.9-34.0 [facility] MCHC Auto (RBC) [Mass/Vol]on 06-03-2024 MCHC (RBC) [Mass/Vol] 33.9 g/dL 29.9-35.2 [facility] MCV Auto (RBC) [Entitic vol] on 06-03-2024 MCV (RBC) [Entitic vol] 87.5 fL 80.0-94.0 [facility] No Panel Informationon 06-03 25-Hydroxy Vitamin D Total 74.8 ng/mL [facility] Comment on above: <20 ng/mL Vit D defi cient20-<30 ng/mL Vit D [id number] ng/mL Vit D sufficient>100 ng/mL Potential Toxicity Parathyroid Hormone (Intact) 34 pg/mL 15-65 [facility] Comment on above: Performed at: - [place] [id number] Director: Aleks Ferreira PhD, Phone: [phone] Phosphorus Level 2.9 mg/dL 2.6-4.7 [facility] Urine Bacteria NONE SEEN #/HPF NONE SEEN [facility] Urine Occult Blood Negative NEGATIVE [facility] Urine Random Creatinine 107.55 mg/dL 20.00-300.00 [facility] Urine RBC NONE SEEN #/HPF 0-2 [facility] Urine Squamous Epithelial Cells RARE #/LPF NONE/RARE [facility] Urine WBC NONE SEEN #/HPF NONE SEEN [facility] Platelet mean volume Auto (B ld) [Entitic vol]on 09-09-2024 Platelet mean volume (Bld) [Entitic vol] 9.5 fL 9.5-13.5 [facility] Platelets Auto (Bld) [#/Vol] on 06-03-2024 Platelets (Bld) [#/Vol] 126 10 3/uL Low 150-450 [facility] RBC Auto (Bld) [#/Vol]on RBC (Bld) [#/Vol] 5.19 10 6/uL 4.70-6.10 [facility] Serum or plasma anion gap de terminationon 06-03-2024 Anion gap [Moles/Vol] 9.7 mmol/L [facility] Urine protein/creatinine rat ioon 06-03-2024 Protein/Creatinine (U) [Ratio] 0.06 [facility] Reminderson 05-30-2024 Reminders Reminders From: Melissa Nash LPN To: GSN - Clinical; Sent: 05/30/2024 15:23:45 EDT Show up: 04/28/2034 07:00:00 EDT Subject: colonoscopy recall Due Date/Time: 05/29/2034 07:00:00 EDT Reminder/Recall Patient due for screening colonoscopy 05/29/2034. Normal [facility] Ambulatory Visit Summaryon 0 05-07-2024 Ambulatory Visit Summary Ambulatory Visit Summary VIANEY LACEY :1960 Visit Date:05/07/2024 Ambulatory Visit Instructions Your Diagnosis Screening for malignant neoplasm of colon Chronic anticoagulation Your Care Team Attending Physician - ROBERTO PRIETO, Shawanda Crawford Primary Care Physician - Cisco PRIETO, Ilda This Is Your Medications List Contact prescribing [...] PRIETO, Vianey Crawford Where: [facility] [address] [place] [address]- Medications What How Much When Instructions Unchanged [...] for choosing us for your care. Normal [facility] 36on 04-11-2024 36 Patient needs scheduled for colonoscopy and would like to know if he can hold Eliquis prior. Please advise. Thanks! Normal [facility] Luther 04-05-2024 L Specimen: Received: 04/08/24 Status: ROYER Sotelo Num: [id number] Spec Type: Impression Subm Dr: Tracy Griffin MD Tissues: PATHPER Procedures: PATHREVIEW Age/ Patient Sex Location Account Attending Physician EdienkechiVianey 64/M LABELL [id number] Tracy Griffin MD SPEC NUM: [id number] RECD: 04/08/24 STATUS: ROYER SOTELO NUM: [id number] LADONNA: 04/05/[address]: Tracy Griffin MD ENTERED: 04/08/[address] [facility] [address]: Odell Dillard SPEC TYPE: Impression DEPT: SB Grey ENTERED BY: [id number] RECV BY: [id number] ORDERED: PATHREVIEW ORDERED: PATHREVIEW Pathologist Review Abnormal [...] autoimmune disease, again requiring clinical correlations CPT: 82461 ---- ---- Specimen: [id number] Received: 04/08/24 Status: ROYER Sotelo Num: [id number] Spec Type: Impression Subm Dr: Tracy Griffin MD Tissues: PATHPER Procedures: PATHREVIEW ---- Patient: Vianey Lacey [id number] (Continued) ---- Signed (signature on file) Memo Morrison MD 04/09/24 1024 Normal [facility] 02-07-2024 36 Blood pressure meds read outs: @ 5:45pm 176/91. Heart rate. 54 @ 10:30 pm 160/90 Heart rate. 54 @ 10:45am 154/98. Heart rate 46 @ 6:40 pm 163/91. Heart rate 59 @ 10:00 am 164/88. Heart rate 57 Francie-4 @ 6:30 pm 176/93 Heart rate 68 @ 10:15am 161/95 Heart rate 48 December @ 6:45pm 165/78 Heart rate 62 @ 10:40pm 128/72 Heart rate 55 December- @ 10:40am 151/85 Heart rate 50 December- @ 3:15pm 162/88 Heart rate 53 December- @ 11:00am 158/86 heart rate 55 December [...] at 12:10pm 144/80 heart rate56 Thank you, [facility] Office Visiton 02-07-2024 Follow-up visit [id number] [address] Lacey 1960 M Date Provider Department Center 02/07/2024 [facility] Family History Problem Relation Age of Onset Cancer Mother Diabetes Mother Coronary artery disease Father Stroke Father Cancer Father Family Status - Relation Status Age at Mother Father Level of Service:23125 SD OFFICE/OUTPATIENT ESTABLISHED MOD MDM 30 MIN [facility] Office Visiton 12-26-2023 Follow-up visit [id number] [address] Lacey 1960 M Date Provider Department Center 12/26/2023 241-JEOVANNY [facility] Family History Problem Relation Age of Onset Cancer Mother Diabetes Mother Coronary artery disease Father Stroke Father Cancer Father Family Status - Relation Status Age at Mother Father Level of Service:94712 SD OFFICE/OUTPATIENT ESTABLISHED LOW MDM 20 MIN Reason for Visit and Comments: Follow-up [[id number]] [facility] 36on 11-24-2023 36 Questioned rather to [...] site healed,taking all other meds including antacids. [facility] Telephoneon 11-24-[id number] Lacey 1960 M Date Provider Department Center 11/24/2023 Alfredo[facility] [place] [facility] Family History Problem Relation Age of Onset Cancer Mother Diabetes Mother Coronary artery disease Father Stroke Father Cancer Father Family Status - Relation Status Age at Mother Father Reason for Visit and Comments: week post ablation f/u [Other] [facility] 30on 11-17-2023 30 Daily Case Managemen [...] Score: PT Recommendations: OT Recommendations: New Consults: [facility] 30 The patient is Moderately Stable [...] facility with appropriate resources Outcome: Progressing Normal [facility] BASIC METABOLIC PANELon 10-27 Anion gap [Moles/Vol] 8 mmol/L Normal 7-20 [facility] Comment on above: Performed By: #### L [id number] #### [facility] ([facility]) [address] [place] [address] Calcium [Mass/Vol] 8.6 mg/dL Normal 8.6-10.3 [facility] Comment on above: Performed By: #### L AB15 #### [facility] ([facility]) [address] [place] [address] Chloride [Moles/Vol] 102 mmol/L Normal 98-107 [facility] Comment on above: Performed By: #### L [id number] #### [facility] ([facility]) [address] [place] [address] CO2 [Moles/Vol] 31 mmol/L Normal 21-31 [facility] Comment on above: Performed By: #### L [id number] #### [facility] [address] [place] [address] Creatinine [Mass/Vol] 1.17 mg/dL Normal 0.70-1.30 [facility] Comment on above: Performed By: #### L [id number] #### [facility] ([facility]) [address] [place] [address] GLOMERULAR FILTRATION RATE ML/MIN/1.73 SQ M.PREDICTED 69.6 mL/min/1.73m*2 Normal >60.0 [facility] Comment on above: Result Comment: The [facility]???s estimated glomerular filtration rate (eGFR) will no [...] individuals. Performed By: #### L AB15 #### [facility] ([facility]) [address] [place] [address] Glucose [Mass/Vol] 95 mg/dL Normal 70-100 [facility] Comment on above: Performed By: #### L [id number] #### [facility] ([facility]) [address] [place] [address] Potassium [Moles/Vol] 3.8 mmol/L Normal 3.5-5.1 [facility] Comment on above: Performed By: #### L AB15 #### [facility] ([facility]) [address] [place] [address] Sodium [Moles/Vol] 137 mmol/L Normal 136-145 [facility] Comment on above: Performed By: #### L [id number] #### [facility] ([facility]) [address] [place] [address] Urea nitrogen [Mass/Vol] 19 mg/dL Normal 7-25 [facility] Comment on above: Performed By: #### L AB15 #### [facility] ([facility]) [address] [place] [address] UREA NITROGEN/CREATININE (MASS RATIO) IN SER/PLAS 16.2 Normal [facility] Comment on above: Performed By: #### L AB15 #### [facility] ([facility]) [address] [place] [address] CBCon 11-17-2023 Erythrocyte distribution width (RBC) [Ratio] 13.7 % Normal 11.5-15.0 [facility] Comment on above: Performed By: #### L [id number] #### [facility] [address] [place] [address] ERYTHROCYTE MEAN CORPUSCULAR HEMOGLOBIN CONCENTRATION (G/DL) BY AUTOMATED 34.7 g/dL Normal 32.0-35.0 [facility] Comment on above: Performed By: #### L [id number] #### [facility] ([facility]) [address] [place] [address] Hematocrit (Bld) [Volume fraction] 40.3 % Normal 39.0-55.0 [facility] Comment on above: Performed By: #### L [id number] #### [facility] ([facility]) [address] [place] [address] Hemoglobin (Bld) [Mass/Vol] 14.0 g/dL Normal 13.0-17.0 [facility] Comment on above: Performed By: #### L [id number] #### [facility] ([facility]) [address] [place] [address] IMMATURE PLATELET FRACTION % 2.1 % Normal 0.8-6.3 [facility] Comment on above: Performed By: #### L [id number] #### [facility] ([facility]) [address] [place] [address] MCH (RBC) [Entitic mass] 30.4 pg Normal 27.0-33.0 [facility] Comment on above: Performed By: #### L [id number] #### [facility] ([facility]) [address] [place] [address] MCV (RBC) [Entitic vol] 87.4 fL Normal 82.0-98.0 [facility] Comment on above: Performed By: #### L [id number] #### [facility] ([facility]) [address] [place] [address] PLATELETS (10*3/UL) IN BLOOD AUTOMATED COUNT 122 10*3/uL Low 150-400 [facility] Comment on above: Performed By: #### L [id number] #### [facility] ([facility]) [address] [place] [address] RBC (Bld) [#/Vol] 4.61 10*6/uL Normal 4.20-5.70 [facility] Comment on above: Performed By: #### L [id number] #### [facility] ([facility]) [address] [place] [address] WBC (Bld) [#/Vol] 6.76 10*3/uL Normal 4.00-10.60 [facility] Comment on above: Performed By: #### L [id number] #### [facility] ([facility]) [address] [place] [address] CONSULTon 11-17-2023 CONSULT Reason For Consult Stroke alert Referring Provider: Columba, Cardiology ENERGY EFFICIENT SITE MANAGER History Of Present Illness ODILON Lacey is [...] function. He is also recently seen a cable tool operator. They are weaning of amantadine which was started in the past after a closed head injury. On Nov 16 Patient underwent ablation for atrial fibrillation. A JAMIN was performed in the Hothouse Worker without complications Anesthesia Pharyngeal anesthesia with viscous [...] lasted 10 minutes and resolved spontaneously. Cardiology ENERGY EFFICIENT SITE MANAGER called a stroke alert. Pt was in [...] for 90 days. 11/15/2023 vitamin B complex 320-8-657-2-2 mg/mL injection Inject into the shoulder, thigh, [...] 36.5 ???C (more content not included)... Normal [facility] CT HEAD WO IV CONTRASTon CT HEAD [...] reasonably achievable. Electronically signed: Apolinar Julian. 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 Mild calcified plaque without stenosis of bilateral intracranial internal carotid arteries. IMPRESSION: No evidence for high-grade stenosis or occlusion of the major vessels of the kiana of [place]. Electronically signed: Apolinar Julian. Normal [facility] CTA NECK W IV CONTRASTon CTA NECK [...] concurrent physician supervision and reviewed. The [place] Symptomatic Carotid Endarterectomy Trial (NASCET) method for [...] as reasonably achievable Electronically signed: Apolinar Julian. [facility] DSon 11-17-2023 DS -- Attestation signed [...] Commonly known as: Flomax vitamin B complex 673-6-821-2-2 mg/mL injection Notes to patient: Take as directed. STOP taking these medications carvedilol 6.25 mg tablet Commonly known as: Coreg Where to Get Your Medications These medications were sent to [facility] [place] [address] [place] [address] [address] [facility] [place] [address], [facility] [address] famotidine 20 mg tablet levothyroxine 150 mcg [...] Skin is (more content not included)... Normal [facility] HEMOGLOBIN A1Con 11-17-2023 Glucose [Mass/Vol] 108 mg/dL Normal [facility] Comment on above: Performed By: #### L AB90 #### [facility] ([facility]) [address] [place] [address] HbA1c (Bld) [Mass fraction] 5.4 % Normal 4.0-6.0 [facility] Comment on above: Performed By: #### L AB90 #### [facility] ([facility] [address] [place] [address] LIPID PANELon 11-17-2023 CHOL/HDL 4.7 mg/dL Normal [facility] Comment on above: Performed By: #### L AB18 #### [facility] ([facility]) [address] [place] [address] Cholesterol [Mass/Vol] 154 mg/dL Normal 120-200 [facility] [facility] Comment on above: Performed By: #### L [id number] #### [facility] ([facility]) [address] [place] [address] Magnesium [Mass/Vol] 138 mg/dL Normal 40-149 [facility] Comment on above: Result Comment: TRIG LYCERIDE REFERENCE RANGE: 20 YEARS AND OLDER CARDIOVASCULAR RISK LESS THAN 150 mg/dL LOW RISK 150 TO 199 mg/dL BORDERLINE RISK 200 mg/dL AND GREATER HIGH RISK Performed By: #### L [id number] #### [facility] ([facility]) [address] [place] [address] Magnesium [Mass/Vol] 93 mg/dL Normal 0-160 [facility] Comment on above: Performed By: #### L [id number] #### [facility] ([facility]) [address] [place] [address] Magnesium [Mass/Vol] 33 mg/dL Normal 23-92 [facility] Comment on above: Performed By: #### L [id number] #### [facility] ([facility]) [address] [place] [address] NON HDL CHOL. (LDL+VLDL) 121 Normal [facility] Comment on above: Performed By: #### L [id number] #### [facility] ([facility]) [address] [place] [address] TOTAL VLDL-C 28 mg/dL Normal 0-40 [facility] Comment on above: Performed By: #### L [id number] #### [facility] ([facility]) [address] [place] [address] MR BRAIN WO CONTRASTon 11-17 MR BRAIN [...] acute infarction. Electronically signed: Mahesh Ocampo. Normal [facility] Orders Onlyon 11-17-[id number] Lacey 1960 M Date Provider Department Center 11/17/2023 JERI HOOPER [facility] Family History Problem Relation Age of Onset Cancer Mother Diabetes Mother Coronary artery disease Father Stroke Father Cancer Father Family Status - Relation Status Age at Mother Father [facility] 30on 11-16-2023 30 Problem: Pain - [...] did make progress toward the following [facility] Electrophysiology Consult Note Reason for visit: [...] function. He is also recently seen a cable tool operator. They are weaning of amantadine which [...] route for 90 days. vitamin B complex [id number] mg/mL injection Refill(s) 0 No current facility-administered [...] Musculoskeletal Ins (more content not included)... Normal [facility] NURSNOTEon 11-16-2023 NURSNOTE Electro Plater enters [facility] room around 1950 to assess his right groin cath site, and notices that the site is oozing. Site is still soft, no hematoma suspected. Electro Plater called cardiology to notify them of the situation. Cardiology would like the patient to lay flat for another hour, and to hold his eliquis for an hour. Rn also held pressure for 10 minuets. Electro Plater will keep cardiology updated on the situation. Normal [facility] POCT GLUCOSE METER UNSOLICIT ED RESULTSon 11-16-2023 Glucose [Mass/Vol] 88 mg/dL Normal 70-105 [facility] Comment on above: Order Comment: Waive d Testing in the ED is performed under the ED CLIA certificate #[id number]. Result Comment: asor ia3 Performed By: #### L [id number] #### [facility] ([facility]) [address] [place] [address] PROTIME-INRon 11-16-2023 INR IN PPP BY COAGULATION ASSAY 1.11 High 0.90-1.10 [facility] Comment on above: Result Comment: ACCC P [...] CHEST 1995;108:231S-246S. Performed By: #### L [id number] ####[facility] ([employer])[address] [place] [address] PROTHROMBIN TIME (PT) IN PPP BY COAGULATION ASSAY 14.3 Seconds Normal 12.3-14.8 [facility] Comment on above: Performed By: #### L [id number] ####[facility] ([facility])[address] [place] [address] [id number] 11-10-2023 [id number] ARRIVAL TIME GIVEN A T 1100 MEDICATIONS [...] THE FOLLOWING ARE NOT AVAILABLE: An adult airport shuttle driver over the age of 18, that [...] lenses. Do not wear perfume, make-up, nail faroese, or lotions on the day of your [...] need to make any changes, please call [phone]. Notify your surgeon if you develop any illness such as a cold, cough, fever, sore throat or vomiting between now and your surgery. Thank you for entrusting us with your care. [facility] Surgical Services Team Normal [facility] $ Large Joint Injection: Ty fang 11-02-2023 [...] with betadine and alcohol.). MANUALLY TRANSCRIBED RESULTS [facility] Office Visiton 10-30-2023 Follow-up visit [id number] Lane Lacey 1960 [facility] Provider Department Center 10/30/2023 1596-DEMETRA PORTER Family History Problem Relation Age of Onset Cancer Mother Diabetes Mother Coronary artery disease Father Stroke Father Cancer Father Family Status - Relation Status Age at Mother Father Level of Service:84872 SD OFFICE/OUTPATIENT ESTABLISHED MOD MDM 30 MIN Normal [facility] Physician Referralon 024 Physician Referral [phone] [id number] Normal [facility] Letter (Out)on 10-13-2023 Letter (Out) [id number] [address] L[address] 1960 [facility] Provider Department [place] 10/13/2023 None-None [facility] Family History Problem Relation Age of Onset Cancer Mother Diabetes Mother Coronary artery disease Father Stroke Father Cancer Father Family Status - Relation Status Age at Mother Father Normal [facility] Orders Onlyon 09-27-[id number] 1960 [facility] Provider Department [place] 09/27/2023 928-ISHMAEL SY Family History Problem Relation Age of Onset Cancer Mother Diabetes Mother Coronary artery disease Father Stroke Father Cancer Father Family Status - Relation Status Age at Mother Father Normal [facility] Prep for Procedureon 024 Prep for Procedure [id number] [address] Lacey 1960 [facility] Provider Department [place] 09/27/2023 1987-TAYLOR PEREZ [facility] [place] [facility] Family History Problem Relation Age of Onset Cancer Mother Diabetes Mother Coronary artery disease Father Stroke Father Cancer Father Family Status - Relation Status Age at Mother Father Normal [facility] Telephone Encounteron 2022 Neuropsychology Medical Consultant Authentication Interface Message Text Patient has not been seen by this specialist in more than 1 year. Please contact patient to schedule office visit. Thank you Normal [facility] [employer] [facility] Office Visiton 09-08-2023 Follow-up visit [id number] Lane Lacey 1960 M Date Provider Department Center 09/08/2023 Demi-JEOVANNY SCOTT [facility] Family History Problem Relation Age of Onset Cancer Mother Diabetes Mother Coronary artery disease Father Stroke Father Cancer Father Family Status - Relation Status Age at Mother Father Level of Service:29292 SD OFFICE/OUTPATIENT NEW MODERATE MDM 45 MINUTES Reason for Visit and Comments: Follow-up [[id number]] - Seen George Loza 08/10/2023 Normal [facility] Office Visiton 08-10-2023 Follow-up visit [id number] Lane Lacey 1960 M Date Provider Department Center 08/10/2023 271-GEORGE LOZA Family History Problem Relation Age of Onset Cancer Mother Diabetes Mother Coronary artery disease Father Stroke Father Cancer Father Family Status - Relation Status Age at Mother Father Level of Service:16538 SD OFFICE/OUTPATIENT ESTABLISHED MOD MDM 30-39 MIN Normal [facility] Orders Onlyon 08-10-[id number] 1960 M Date Provider Department Center 08/10/2023 NEO TAYLOR Family History Problem Relation Age of Onset Cancer Mother Diabetes Mother Coronary artery disease Father Stroke Father Cancer Father Family Status - Relation Status Age at Mother Father Normal [facility] CNOVon 04-26-2023 CNOV Office Visit (SPMESH ) VIANEY LACEY ([id number]) 1960 M Date Time Provider Department 04/26/23 [...] palpable masses (more content not included)... Normal [facility] TESTOSTERONE, TOTALon 04-30- 2023 Testosterone [Mass/Vol] 347 ng/dL Normal 264-916 [facility] Comment on above: Result Comment: Adul t male reference interval is based on a population of healthy nonobese males (BMI <30) between 19 and 39 years old. Brad et.al. JCEM 2017,102;6116-0311. PMID: [id number]. Performed By: #### T ESTTOT #### [facility] [address] [place] [address] [address] Reuben Morrison XR TSPINE 3 VIEWSon [...] ALFREDITO LOAIZA Date: 2022-11-18 16:11 Normal [facility] TESTOSTERONE, TOTALon 2022 Testosterone [Mass/Vol] 993 ng/dL Critically high 264-916 [facility] Comment on above: Result Comment: Adul t male reference interval is based on a population of healthy nonobese males (BMI <30) between 19 and 39 years old. Brad et.al. JCEM 2017,102;8099-2509. PMID: [id number]. Performed By: #### T ESTTOT #### [facility] [address] [address] [address] Reuben Morrison CBC AUTO DIFFon 06-15-2022 BASO # 0.0 103/ul Normal 0.0-0.1 [facility] Comment on above: Performed By: #### C BC #### [facility] [address] [place] [address] Dr. Reuben Morrison Basophils/100 WBC (Bld) 0.4 % Normal 0.2-2.0 [facility] Comment on above: Performed By: #### C BC #### [facility] [address] [place] [address] Dr. Reuben Morrison EO # 0.1 103/ul Normal 0.0-0.7 [facility] Comment on above: Performed By: #### C BC #### [facility] [address] [place] [address] Dr. Reuben Morrison Eosinophils/100 WBC (Bld) 1.3 % Normal 0.9-7.0 [facility] Comment on above: Performed By: #### C BC #### [facility] [address] [place] [address] Dr. Reuben Morrison Erythrocyte distribution width (RBC) [Ratio] 14.3 % Normal 11.0-15.0 [facility] Comment on above: Performed By: #### C BC #### [facility] [address] [place] [address] Dr. Reuben Morrison Hematocrit (Bld) [Volume fraction] 48.9 % Normal 42.0-54.0 [facility] Comment on above: Performed By: #### C BC #### [facility] [address] [place] [address] Dr. Reuben Morrison Hemoglobin (Bld) [Mass/Vol] 16.6 g/dL Normal 14.0-18.0 [facility] Comment on above: Performed By: #### C BC #### [facility] [address] [place] [address] Dr. Reuben Morrison IG # 0.01 10e3/ul Normal 0.00-0.03 [facility] Comment on above: Performed By: #### C BC #### [facility] [address] [place] [address] Dr. Reuben Morrison IG % 0.2 % Normal 0.0-0.5 [facility] Comment on above: Performed By: #### C BC #### [facility] [address] [place] [address] Dr. Reuben Morrison LYMPH # 1.1 103/ul Critically low 1.2-3.8 [facility] Comment on above: Performed By: #### C BC #### [facility] [address] [place] [address] Dr. Reuben Morrison Lymphocytes/100 WBC (Bld) 24.3 % Normal 20.5-60.0 [facility] Comment on above: Performed By: #### C BC #### [facility] [address] [place] [address] Dr. Reuben Morrison MANUAL DIFF REQ NO Normal [facility] Comment on above: Performed By: #### C BC #### [facility] [address] [place] [address] Dr. Reuben Morrison MCH (RBC) [Entitic mass] 29.5 pg Normal 25.9-34.0 [facility] Comment on above: Performed By: #### C BC #### [facility] [address] [place] [address] Dr. Reuben Morrison MCHC (RBC) [Mass/Vol] 33.9 g/dL Normal 29.9-35.2 [facility] Comment on above: Performed By: #### C BC #### [facility] [address] [place] [address] Dr. Reuben Morrison MCV (RBC) [Entitic vol] 86.9 fL Normal 80.0-94.0 [facility] Comment on above: Performed By: #### C BC #### [facility] [address] [place] [address] Dr. Reuben Morrison MONO # 0.5 103/ul Normal 0.3-0.8 [facility] Comment on above: Performed By: #### C BC #### [facility] [address] [place] [address] Dr. Reuben Morrison Monocytes/100 WBC (Bld) 9.6 % Normal 1.7-12.0 [facility] Comment on above: Performed By: #### C BC #### [facility] [address] [place] [address] Dr. Reuben Morrison NEUT # 3.0 103/ul Normal 1.4-6.5 [facility] Comment on above: Performed By: #### C BC #### [facility] [address] [address] [address] Reuben Morrison Neutrophils/100 WBC (Bld) 64.2 % Normal 43.0-75.0 [facility] Comment on above: Performed By: #### C BC #### [facility] [address] [place] [address] Dr. Reuben Morrison Platelet mean volume (Bld) [Entitic vol] 9.7 fL Normal 9.5-13.5 [facility] Comment on above: Performed By: #### C BC #### [facility] [address] [place] [address] Dr. Reuben Morrison PLT 130 103/ul Critically low 150-450 [facility] Comment on above: Result Comment: plts . appear slightly decreased Performed By: #### C BC #### [facility] [address] [place] [address] Dr. Reuben Morrison RBC 5.63 106/ul Normal 4.70-6.10 [facility] Comment on above: Performed By: #### C BC #### [facility] [address] [place] [address] Dr. Reuben Morrison WBC 4.7 103/ul Normal 4.0-11.0 [facility] Comment on above: Performed By: #### C BC #### [facility] [address] [place] [address] Dr. Reuben Morrison TESTOSTERONE, TOTALon 2021 Testosterone [Mass/Vol] 404 ng/dL Normal 264-916 [facility] Comment on above: Result Comment: Adul t male reference interval is based on a population of healthy nonobese males (BMI <30) between 19 and 39 years old. Brad et.al. JCEM 2017,102;6088-6193. PMID: [id number]. Performed By: #### T ESTTOT #### [facility] [address] [place] [address] Dr. Reuben Morrison CBC AUTO DIFFon 04-27-2022 BASO # 0.0 103/ul Normal 0.0-0.1 [facility] Comment on above: Performed By: #### T ESTTOT #### [facility] [address] [place] [address] Dr. Reuben Morrison Basophils/100 WBC (Bld) 1.0 % Normal 0.2-2.0 [facility] Comment on above: Performed By: #### T ESTTOT #### [facility] [address] [place] [address] Dr. Reuben Morrison EO # 0.1 103/ul Normal 0.0-0.7 [facility] Comment on above: Performed By: #### T ESTTOT #### [facility] [address] [place] [address] Dr. Reuben Morrison Eosinophils/100 WBC (Bld) 1.8 % Normal 0.9-7.0 [facility] Comment on above: Performed By: #### T ESTTOT #### [facility] [address] [place] [address] Dr. Reuben Morrison Erythrocyte distribution width (RBC) [Ratio] 14.0 % Normal 11.0-15.0 [facility] Comment on above: Performed By: #### T ESTTOT #### [facility] [address] [place] [address] Dr. Reuben Morrison Hematocrit (Bld) [Volume fraction] 47.3 % Normal 42.0-54.0 [facility] Comment on above: Performed By: #### T ESTTOT #### [facility] [address] [place] [address] Dr. Reuben Morrison Hemoglobin (Bld) [Mass/Vol] 16.2 g/dL Normal 14.0-18.0 [facility] Comment on above: Performed By: #### T ESTTOT #### [facility] [address] [place], [place] [id number] Dr. Reuben Morrison IG # 0.01 10e3/ul Normal 0.00-0.03 [facility] Comment on above: Performed By: #### T ESTTOT #### [facility] [address] [place] [address] Dr. Reuben Morrison IG % 0.3 % Normal 0.0-0.5 [facility] Comment on above: Performed By: #### T ESTTOT #### [facility] [address] [place] [address] Dr. Reuben Morrison LYMPH # 1.1 103/ul Critically low 1.2-3.8 [facility] Comment on above: Performed By: #### T ESTTOT #### [facility] [address] [place] [address] Dr. Reuben Morrison Lymphocytes/100 WBC (Bld) 26.6 % Normal 20.5-60.0 [facility] Comment on above: Performed By: #### T ESTTOT #### [facility] [address] [place] [address] Dr. Reuben Morrison MANUAL DIFF REQ NO Normal [facility] Comment on above: Performed By: #### T ESTTOT #### [facility] [address] [place] [address] Dr. Reuben Morrison MCH (RBC) [Entitic mass] 29.5 pg Normal 25.9-34.0 [facility] Comment on above: Performed By: #### T ESTTOT #### [facility] [address] [place] [address] Dr. Reuben Morrison MCHC (RBC) [Mass/Vol] 34.2 g/dL Normal 29.9-35.2 [facility] Comment on above: Performed By: #### T ESTTOT #### [facility] [address] [place] [address] Dr. Reuben Morrison MCV (RBC) [Entitic vol] 86.2 fL Normal 80.0-94.0 [facility] Comment on above: Performed By: #### T ESTTOT #### [facility] [address] [place] [address] Dr. Reuben Morrison MONO # 0.4 103/ul Normal 0.3-0.8 [facility] Comment on above: Performed By: #### T ESTTOT #### [facility] [address] [place] [address] Dr. Reuben Morrison Monocytes/100 WBC (Bld) 9.0 % Normal 1.7-12.0 [facility] Comment on above: Performed By: #### T ESTTOT #### [facility] [address] [place] [address] Dr. Reuben Morrison NEUT # 2.5 103/ul Normal 1.4-6.5 [facility] Comment on above: Performed By: #### T ESTTOT #### [facility] [address] [place] [address] Dr. Reuben Morrison Neutrophils/100 WBC (Bld) 61.3 % Normal 43.0-75.0 [facility] Comment on above: Performed By: #### T ESTTOT #### [facility] [address] [place] [address] Dr. Reuben Morrison Platelet mean volume (Bld) [Entitic vol] 9.6 fL Normal 9.5-13.5 [facility] Comment on above: Performed By: #### T ESTTOT #### [facility] [address] [place] [address] Dr. Reuben Morrison PLT 128 103/ul Critically low 150-450 [facility] Comment on above: Performed By: #### T ESTTOT #### [facility] [address] [place] [address] Dr. Reuben Morrison RBC 5.49 106/ul Normal 4.70-6.10 [facility] Comment on above: Performed By: #### T ESTTOT #### [facility] [address] [place] [address] Dr. Reuben Morrison WBC 4.0 103/ul Normal 4.0-11.0 [facility] Comment on above: Performed By: #### T ESTTOT #### [facility] [address] [place] [address] Dr. Reuben Morrison INSULINon 03-08-2022 Insulin 4.3 uIU/mL Normal 2.6-24.9 [facility] Comment on above: Performed By: #### T ESTTOT #### [facility] [address] [place] [address] Dr. Reuben Morrison TESTOSTERONE, TOTALon 2021 Testosterone [Mass/Vol] ng/dL Critically high 264-916 [facility] Comment on above: Result Comment: Adul t male reference interval is based on a population of healthy nonobese males (BMI <30) between 19 and 39 years old. Brad, et.al. JCEM 2017,102;0095-5101. PMID: [id number]. Performed By: #### T ESTTOT #### [facility] [address] [place] [address] Dr. Reuben Morrison CBC AUTO DIFFon 03-07-2022 BASO # 0.1 103/ul Normal 0.0-0.1 [facility] Comment on above: Performed By: #### C BC #### [facility] [address] [address] [address] Reuben Morrison Basophils/100 WBC (Bld) 1.4 % Normal 0.2-2.0 [facility] Comment on above: Performed By: #### C BC #### [facility] [address] [place] [address] Dr. Reuben Morrison EO # 0.1 103/ul Normal 0.0-0.7 [facility] Comment on above: Performed By: #### C BC #### [facility] [address] [address] [address] Reuben Morrison Eosinophils/100 WBC (Bld) 1.4 % Normal 0.9-7.0 [facility] Comment on above: Performed By: #### C BC #### [facility] [address] [place] [address] Dr. Reuben Morrison Erythrocyte distribution width (RBC) [Ratio] 14.7 % Normal 11.0-15.0 [facility] Comment on above: Performed By: #### C BC #### [facility] [address] [place] [address] Dr. Reuben Morrison Hematocrit (Bld) [Volume fraction] 49.8 % Normal 42.0-54.0 [facility] Comment on above: Performed By: #### C BC #### [facility] [address] [place] [address] Dr. Reuben Morrison Hemoglobin (Bld) [Mass/Vol] 16.4 g/dL Normal 14.0-18.0 [facility] Comment on above: Performed By: #### C BC #### [facility] [address] [place] [address] Dr. Reuben Morrison IG # 0.01 10e3/ul Normal 0.00-0.03 [facility] Comment on above: Performed By: #### C BC #### [facility] [address] [place] [address] Dr. Reuben Morrison IG % 0.3 % Normal 0.0-0.5 [facility] Comment on above: Performed By: #### C BC #### [facility] [address] [place] [address] Dr. Reuben Morrison LYMPH # 0.9 103/ul Critically low 1.2-3.8 [facility] Comment on above: Performed By: #### C BC #### [facility] [address] [place] [address] Dr. Reuben Morrison Lymphocytes/100 WBC (Bld) 24.7 % Normal 20.5-60.0 [facility] Comment on above: Performed By: #### C BC #### [facility] [address] [place] [address] Dr. Reuben Morrison MANUAL DIFF REQ NO Normal [facility] Comment on above: Performed By: #### C BC #### [facility] [address] [place] [address] Dr. Reuben Morrison MCH (RBC) [Entitic mass] 28.9 pg Normal 25.9-34.0 [facility] Comment on above: Performed By: #### C BC #### [facility] [address] [place], [place] [id number] Dr. Reuben Morrison MCHC (RBC) [Mass/Vol] 32.9 g/dL Normal 29.9-35.2 [facility] Comment on above: Performed By: #### C BC #### [facility] [address] [place] [address] Dr. Reuben Morrison MCV (RBC) [Entitic vol] 87.7 fL Normal 80.0-94.0 [facility] Comment on above: Performed By: #### C BC #### [facility] [address] [place] [address] Dr. Reuben Morrison MONO # 0.4 103/ul Normal 0.3-0.8 [facility] [facility] Comment on above: Performed By: #### C BC #### [facility] [address] [place] [address] Dr. Reuben Morrison Monocytes/100 WBC (Bld) 9.5 % Normal 1.7-12.0 The [facility] Comment on above: Performed By: #### C BC #### [facility] [address] [place] [address] Dr. Reuben Morrison NEUT # 2.3 103/ul Normal 1.4-6.5 [facility] Comment on above: Performed By: #### C BC #### [facility] [address] [place] [address] Dr. Reuben Morrison Neutrophils/100 WBC (Bld) 62.7 % Normal 43.0-75.0 [facility] Comment on above: Performed By: #### C BC #### [facility] [address] [place] [address] Dr. Reuben Morrison Platelet mean volume (Bld) [Entitic vol] 9.8 fL Normal 9.5-13.5 The [facility] Comment on above: Performed By: #### C BC #### [facility] [address] [place] [address] Dr. Reuben Morrison PLT 149 103/ul Critically low 150-450 [facility] [place] Comment on above: Performed By: #### C BC #### [facility] [address] [place] [address] Dr. Reuben Morrison RBC 5.68 106/ul Normal 4.70-6.10 The [facility] Comment on above: Performed By: #### C BC #### [facility] [address] [address] [address] Reuben Morrison WBC 3.7 103/ul Critically low 4.0-11.0 [facility] [place] Comment on above: Performed By: #### C BC #### [facility] [address] [address] [address] Reuben Morrison FREE THYROXINE INDEX T7on FTI 2.50 Normal 1.30-4.50 [facility] Comment on above: Performed By: #### C MP, T7, TSH, LIPID #### [facility] [address] [place] [address] Dr. Reuben Morrison T3U 39.0 % Normal 33.0-40.0 [facility] Comment on above: Performed By: #### C MP, T7, TSH, LIPID #### [facility] [address] [place] [address] Dr. Reuben Morrison T4 [Mass/Vol] 6.40 ug/dL Normal 4.50-12.10 The [facility] Comment on above: Performed By: #### C MP, T7, TSH, LIPID #### [facility] [address] [address] [address] Reuben Morrison GLYCOHEMOGLOBIN A1Con 2021 ADA RECOMMENDATION SEE BELOW Normal [facility] Comment on above: Result Comment: ADA RECOMMENDED LIMIT 4.0 - 6.0 ADA THERAPEUTIC TARGET < 7.0 ACTION SUGGESTED > 7.0 Performed By: #### T ESTTOT #### [facility] [address] [address] [address] Reuben Morrison Glucose [Mass/Vol] 105 mg/dL Normal [facility] Comment on above: Performed By: #### T ESTTOT #### [facility] [address] [place] [address] Dr. Reuben Morrison HbA1c (Bld) [Mass fraction] 5.3 % Normal 4.5-6.2 [facility] Comment on above: Performed By: #### T ESTTOT #### [facility] [address] [address] [address] Reuben Morrison IRONon 03-07-2022 Iron [Mass/Vol] 100.0 ug/dL Normal 65.0-175.0 [facility] Comment on above: Performed By: #### I BLAIR, PSASC, VITB12, VITAD #### [facility] [address] [address] [address] Reuben Morrison LIPID PROFILEon 03-07-2022 CHOL-HDL RATIO NORM SEE BELOW Normal [facility] Comment on above: Result Comment: 3.3 - 4.4 LOW RISK 4.4 - 7.1 AVERAGE RISK 7.1 - 11.0 MODERATE RISK >11.0 HIGH RISK Performed By: #### C MP, T7, TSH, LIPID #### [facility] [address] [address] [address] Reuben Morrison Cholesterol [Mass/Vol] 157 mg/dL Normal <=200 [facility] Comment on above: Performed By: #### C MP, T7, TSH, LIPID #### [facility] [address] [address] [address] Reuben oMrrison Cholesterol in HDL [Mass/Vol] 48 mg/dL Normal 40-60 [facility] Comment on above: Performed By: #### C MP, T7, TSH, LIPID #### [facility] [address] [address] [address] Reuben Morrison Cholesterol in LDL [Mass/Vol] 96.0 mg/dL Normal [facility] Comment on above: Performed By: #### C MP, T7, TSH, LIPID #### [facility] [address] [address] [address] Reuben Morrison Cholesterol.total/C holesterol in HDL [Mass ratio] 3.3 {ratio} Normal [facility] Comment on above: Performed By: #### C MP, T7, TSH, LIPID #### [facility] [address] [address] [address] Reuben Morrison HDL NORMAL > or = 60 mg/dl - LO W CARDIOVASCULAR RISK <40 mg/dl - HIGH CARDIOVASCULAR RISK Normal [facility] Comment on above: Performed By: #### C MP, T7, TSH, LIPID #### [facility] [address] [address] [address] Reuben Morrison LDL CALC NORMAL SEE BELOW Normal [facility] Comment on above: Result Comment: <100 mg/dl OPTIMAL 100 - 129 mg/dl NEAR OR ABOVE OPTIMAL 130 - 159 mg/dl BORDERLINE HIGH 160 - 189 mg/dl HIGH >190 mg/dl VERY HIGH Performed By: #### C MP, T7, TSH, LIPID #### [facility] [address] [address] [address] Reuben Morrison Triglyceride [Mass/Vol] 65 mg/dL Normal <=150 [facility] Comment on above: Performed By: #### C MP, T7, TSH, LIPID #### [facility] [address] [address] [address] Reuben Morrison VLDL CALC 13.0 mg/dL Normal [facility] Comment on above: Performed By: #### C MP, T7, TSH, LIPID #### [facility] [address] [place] [address] Dr. Reuben Morrison PROF 14(COMP METB)on 022 Albumin [Mass/Vol] 3.7 g/dL Normal 3.4-5.0 [facility] Comment on above: Performed By: #### C MP, T7, TSH, LIPID #### [facility] [address] [address] [address] Reuben Morrison Albumin/Globulin [Mass ratio] 1.3 {ratio} Normal [facility] Comment on above: Performed By: #### C MP, T7, TSH, LIPID #### [facility] [address] [address] [address] Reuben Morrison ALP [Catalytic activity/Vol] 53 U/L Normal 46-116 [facility] Comment on above: Performed By: #### C MP, T7, TSH, LIPID #### [facility] [address] [address] [address] Reuben Morrison ALT [Catalytic activity/Vol] 37 U/L Normal 16-63 [facility] Comment on above: Performed By: #### C MP, T7, TSH, LIPID #### [facility] [address] [place] [address] Dr. Reuben Morrison Anion gap [Moles/Vol] 11.0 mmol/L Normal [facility] Comment on above: Performed By: #### C MP, T7, TSH, LIPID #### [facility] [address] [place] [address] Dr. Reuben Morrison AST [Catalytic activity/Vol] 28 U/L Normal 15-37 [facility] Comment on above: Performed By: #### C MP, T7, TSH, LIPID #### [facility] [address] [place] [address] Dr. Reuben Morrison Bilirubin [Mass/Vol] 0.9 mg/dL Normal 0.2-1.0 [facility] Comment on above: Performed By: #### C MP, T7, TSH, LIPID #### [facility] [address] [place] [address] Dr. Reuben Morrison Calcium [Mass/Vol] 8.9 mg/dL Normal 8.5-10.1 [facility] Comment on above: Performed By: #### C MP, T7, TSH, LIPID #### [facility] [address] [place] [address] Dr. Reuben Morrison Chloride [Moles/Vol] 106 mmol/L Normal 98-107 [facility] Comment on above: Performed By: #### C MP, T7, TSH, LIPID #### [facility] [address] [place] [address] Dr. Reuben Morrison CO2 [Moles/Vol] 28.2 mmol/L Normal 21.0-32.0 [facility] Comment on above: Performed By: #### C MP, T7, TSH, LIPID #### [facility] [address] [place] [address] Dr. Reuben Morrison Creatinine [Mass/Vol] 1.55 mg/dL Critically high 0.70-1.30 [facility] Comment on above: Performed By: #### C MP, T7, TSH, LIPID #### [facility] [address] [address] [address] Reuben Morrison EGFR-AF TOGOLESE 55 mL/min/1.73m2 Critically low >=60 [facility] Comment on above: Performed By: #### C MP, T7, TSH, LIPID #### [facility] [address] [address] [address] Reuben Morrison EGFR-NON AF TOGOLESE 46 mL/min/1.73m2 Critically low >=60 [facility] Comment on above: Performed By: #### C MP, T7, TSH, LIPID #### [facility] [address] [address] [address] Reuben Morrison Globulin (S) [Mass/Vol] 2.9 g/dL Normal [facility] Comment on above: Performed By: #### C MP, T7, TSH, LIPID #### [facility] [address] [place] [address] Dr. Reuben Morrison Glucose [Mass/Vol] 88 mg/dL Normal 74-106 [facility] Comment on above: Performed By: #### C MP, T7, TSH, LIPID #### [facility] [address] [address] [address] Reuben Morrison Potassium [Moles/Vol] 4.2 mmol/L Normal 3.5-5.1 [facility] Comment on above: Performed By: #### C MP, T7, TSH, LIPID #### [facility] [address] [address] [address] Reuben Morrison Protein [Mass/Vol] 6.6 g/dL Normal 6.4-8.2 [facility] Comment on above: Performed By: #### C MP, T7, TSH, LIPID #### [facility] [address] [place] [address] Dr. Reuben Morrison Sodium [Moles/Vol] 141 mmol/L Normal 136-145 [facility] Comment on above: Performed By: #### C MP, T7, TSH, LIPID #### [facility] [address] [address] [address] Reuben Morrison Urea nitrogen [Mass/Vol] 13.0 mg/dL Normal 7.0-18.0 [facility] Comment on above: Performed By: #### C MP, T7, TSH, LIPID #### [facility] [address] [place] [address] Dr. Reuben Morrison Urea nitrogen/Creatinine [Mass ratio] 8.4 mg/mg Normal [facility] Comment on above: Performed By: #### C MP, T7, TSH, LIPID #### [facility] [address] [address] [address] Reuben Morrison TSHon 03-07-2022 TSH 0.091 uIU/mL Critically low 0.358-3.740 [facility] Comment on above: Performed By: #### C MP, T7, TSH, LIPID #### [facility] [address] [place] [address] Dr. Reuben Morrison TSH RANGE SEE BELOW Normal [facility] Comment on above: Result Comment: <0.3 4 UIU/ml HYPERTHYROID 0.34-5.60 UIU/ml EUTHYROID >5.60 UIU/ml HYPOTHYROID Performed By: #### C MP, T7, TSH, LIPID #### [facility] [address] [place] [address] Dr. Reuben Morrison VITAMIN B12on 03-07-2022 Cobalamin (Vitamin B12) [Mass/Vol] 3126.0 pg/mL Critically high 193.0-986.0 [facility] Comment on above: Performed By: #### T ESTTOT #### [facility] [address] [place] [address] Dr. Reuben Morrison VITAMIN D 25 OHon 03-07-2022 VIT D 25-OH 90.4 ng/mL Normal [facility] Comment on above: Performed By: #### T ESTTOT #### [facility] [address] [place] [address] Dr. Reuben Morrison VIT D RANGES SEE BELOW Normal [facility] Comment on above: Result Comment: <20 ng/mL Vit D deficient 20 - <30 ng/mL Vit D insufficient 30 - 100 ng/mL Vit D sufficient >100 ng/mL Potential Toxicity Performed By: #### T ESTTOT #### [facility] [address] [address] [address] Reuben Morrison XR SHOULDER RICHARD 2V [...] by: ERIN HANSEN Date: 2022-03-07 16:26 Normal [facility] Vital Signs Date Time Vital Sign Value Performing Clinician Facility 10-21-2024 10:46-0500 Body temperature 97.52 [degF] Vianey SILVERMAN [facility] 10-21-2024 10:46-0500 Diastolic blood pressure 84 mm[Hg] Vianey SILVERMAN [facility] 10-21-2024 10:46-0500 Systolic blood pressure 128 mm[Hg] Vianey SILVERMAN [facility] 10-08-2024 14:40-0500 Body height 170.2 cm Osmin Anthony MD Work Phone: [facility] 10-08-2024 14:40-0500 Body mass index (BMI) [Ratio] 29.13 kg/m2 Osmin Anthony MD Work Phone: [facility] 10-08-2024 14:40-0500 Body weight 84.37 kg Osmin Anthony MD Work Phone: [facility] 08-13-2024 13:46-0500 Blood Pressure Location Shawanda LUZL [facility] 08-13-2024 13:46-0500 Diastolic blood pressure 82 mm[Hg] Shawanda LUZL [facility] 08-13-2024 13:46-0500 Heart rate 72 /min Shawanda LUZL [facility] 08-13-2024 13:46-0500 Respiratory rate 16 /min Shawanda LUZL [facility] 08-13-2024 13:46-0500 Systolic blood pressure 122 mm[Hg] Shawanda LUZL [facility] 07-17-2024 14:59-0400 Body height 168.9 cm Sage Russel DO Work Phone: [facility] 07-17-2024 14:59-0400 Body mass index (BMI) [Ratio] 30.02 kg/m2 Sage Russel DO Work Phone: [facility] 07-17-2024 14:59-0400 Body weight 85.64 kg Sage Russel DO Work Phone: [facility] 07-17-2024 14:59-0400 Diastolic blood pressure 90 mm[Hg] Sage Russel DO Work Phone: [facility] 07-17-2024 14:59-0400 Heart rate 68 /min Sage Russel DO Work Phone: [facility] 07-17-2024 14:59-0400 SaO2% (BldA) [Mass fraction] 98 % Sage Russel DO Work Phone: [facility] 07-17-2024 14:59-0400 Systolic blood pressure 134 mm[Hg] Sage Russel DO Work Phone: [facility] 06-12-2024 11:04-0400 Body height 168.9 cm Román Dawson MD Work Phone: [facility] 06-12-2024 11:04-0400 Body mass index (BMI) [Ratio] 29.89 kg/m2 Román Dawson MD Work Phone: [facility] 06-12-2024 11:04-0400 Body weight 85.28 kg Román Dawson MD Work Phone: [facility] 06-12-2024 11:04-0400 Diastolic blood pressure 78 mm[Hg] Román Dawson MD Work Phone: [facility] 06-12-2024 11:04-0400 Heart rate 68 /min Román Dawson MD Work Phone: [facility] 06-12-2024 11:04-0400 Respiratory rate 16 /min Román Dawson MD Work Phone: [facility] 06-12-2024 11:04-0400 Systolic blood pressure 130 mm[Hg] Román Dawson MD Work Phone: [facility] 06-11-2024 11:20-0400 Body height 170.2 cm Osmin Anthony MD Work Phone: [facility] 06-11-2024 11:20-0400 Body mass index (BMI) [Ratio] 28.7 kg/m2 Osmin Anthony MD Work Phone: [facility] 06-11-2024 11:20-0400 Body weight 83.12 kg Osmin Anthony MD Work Phone: [facility] 06-06-2024 13:55-0400 Body height 168.91 cm MD Ilda Peck Work Phone: [facility] 06-06-2024 13:55-0400 Body mass index (BMI) [Ratio] 29.4 kg/m2 MD Ilda Peck Work Phone: [facility] 06-06-2024 13:55-0400 Body temperature 98.8 [degF] MD Ilda Peck Work Phone: [facility] 06-06-2024 13:55-0400 Body weight 83.97 kg MD Ilda Peck Work Phone: [facility] 06-06-2024 13:55-0400 Diastolic blood pressure 88 mm[Hg] MD Ilda Peck Work Phone: [facility] 06-06-2024 13:55-0400 Heart rate 61 /min MD Ilda Peck Work Phone: [facility] 06-06-2024 13:55-0400 Respiratory rate 16 /min MD Ilda Peck Work Phone: [facility] 06-06-2024 13:55-0400 SaO2% (BldA) [Mass fraction] 98 % MD Ilda Peck Work Phone: [facility] 06-06-2024 13:55-0400 Systolic blood pressure 139 mm[Hg] MD Ilda Peck Work Phone: [facility] 05-07-2024 15:01-0400 Blood Pressure Location Shawanda LUZL [facility] 05-07-2024 15:01-0400 Diastolic blood pressure 84 mm[Hg] Shawanda LUZL [facility] 05-07-2024 15:01-0400 Heart rate 68 /min Shawanda NILL [facility] 05-07-2024 15:01-0400 Respiratory rate 16 /min Shawanda NILL [facility] 05-07-2024 15:01-0400 Systolic blood pressure 118 mm[Hg] Shawanda NILL [facility] 11-02-2023 10:48-0500 Body height 170.2 cm Osmin Anthony MD Work Phone: [facility] 11-02-2023 10:48-0500 Body mass index (BMI) [Ratio] 29.29 kg/m2 Osmin Anthony MD Work Phone: [facility] 11-02-2023 10:48-0500 Body weight 84.82 kg Osmin Anthony MD Work Phone: [facility] 10-16-2023 13:03-0500 Blood Pressure Location Vianey SILVERMAN [facility] 10-16-2023 13:03-0500 Diastolic blood pressure 82 mm[Hg] Vianey SILVERMAN [facility] 10-16-2023 13:03-0500 Heart rate 75 /min Vianey SILVERMAN [facility] 10-16-2023 13:03-0500 Respiratory rate 16 /min Vianey SILVERMAN [facility] 10-16-2023 13:03-0500 Systolic blood pressure 131 mm[Hg] Vianey SILVERMAN [facility] 07-27-2023 10:00-0400 Body height 168.91 cm Sandoval Antonia Other [employer] Other 07-27-2023 10:00-0400 Body mass index (BMI) [Ratio] 28.55 kg/m2 Sandoval Antonia Other [employer] Other 07-27-2023 10:00-0400 Body temperature 96.2 [degF] Sandoval Antonia Other [employer] Other 07-27-2023 10:00-0400 Body weight 81.47 kg Sandoval Antonia Other [employer] Other 07-27-2023 10:00-0400 Diastolic blood pressure 87 mm[Hg] Sandoval Antonia Other [employer] Other 07-27-2023 10:00-0400 Respiratory rate 16 /min Sandoval Antonia Other [employer] Other 07-27-2023 10:00-0400 SaO2% (BldA) [Mass fraction] 94 % Sandoval Antonia Other [employer] Other 07-27-2023 10:00-0400 Systolic blood pressure 130 mm[Hg] Sandoval Antonia Other [employer] Other 06-12-2023 12:25-0400 Blood Pressure Location Vianey SILVERMAN [facility] 06-12-2023 12:25-0400 Diastolic blood pressure 74 mm[Hg] Vianey SILVERMAN [facility] 06-12-2023 12:25-0400 Heart rate 68 /min Vianey SILVERMAN [facility] 06-12-2023 12:25-0400 Respiratory rate 16 /min Vianey SILVERMAN [facility] 06-12-2023 12:25-0400 Systolic blood pressure 128 mm[Hg] Vianey SILVERMAN [facility] 04-26-2023 11:15-0400 Body height 168.4 cm Shawanda Hernandez PA-C Work Phone: [facility] 04-26-2023 11:15-0400 Body temperature 98.01 [degF] Shawanda Hernandez PA-C Work Phone: [facility] 04-26-2023 11:15-0400 Body weight 86.95 kg Shawanda OCHOA-Rachel Work Phone: [facility] 04-26-2023 11:15-0400 Diastolic blood pressure 94 mm[Hg] Shawanda Hernandez PA-C Work Phone: [facility] 04-26-2023 11:15-0400 Heart rate 74 /min Shawanda Hernandez PA-C Work Phone: [facility] 04-26-2023 11:15-0400 SaO2% (BldA) [Mass fraction] 97 % Shawanda Hernandez PA-C Work Phone: [facility] 04-26-2023 11:15-0400 Systolic blood pressure 147 mm[Hg] Shawanda Hernandez PA-C Work Phone: [facility] 12-02-2022 08:12-0500 Blood Pressure Location Vianey SILVERMAN [facility] 12-02-2022 08:12-0500 Diastolic blood pressure 84 mm[Hg] Vianey SILVERMAN [facility] 12-02-2022 08:12-0500 Heart rate 70 /min Vianey SILVERMAN [facility] 12-02-2022 08:12-0500 Respiratory rate 16 /min Vianey SILVERMAN [facility] 12-02-2022 08:12-0500 Systolic blood pressure 137 mm[Hg] Vianey SILVERMAN [facility] 07-20-2022 14:11-0400 Body mass index (BMI) [Ratio] 28.98 kg/m2 Jovita Virk MD Work Phone: [employer] 07-20-2022 14:11-0400 Body temperature 98.01 [degF] Jovita Virk MD Work Phone: [employer] 07-20-2022 14:11-0400 Body weight 83.92 kg Jovita Virk MD Work Phone: [employer] 07-20-2022 14:11-0400 Diastolic blood pressure 86 mm[Hg] Jovita Virk MD Work Phone: [employer] 07-20-2022 14:11-0400 Heart rate 98 /min Jovita Virk MD Work Phone: [employer] 07-20-2022 14:11-0400 Respiratory rate 14 /min Jovita Virk MD Work Phone: [employer] 07-20-2022 14:11-0400 SaO2% (BldA) [Mass fraction] 100 % Jovita Virk MD Work Phone: [employer] 07-20-2022 14:11-0400 Systolic blood pressure 138 mm[Hg] Jovita Virk MD Work Phone: [employer] Encounters Encounter Date Encounter Type Care Provider Facility Start: 10-27-2025 amb[facility] Start: 10-21-2024 End: 10-21-2024 ambulatory Vianey SILVERMAN Facility:[facility] Start: 10-21-2024 End: 10-21-2024 Patient encounter procedure Vianey SILVERMAN [facility] Start: 10-08-2024 End: 10-08-2024 ambulatory OSMIN ANTHONY [facility] Start: 10-08-2024 End: 10-08-2024 Patient encounter procedure Osmin Anthony MD Work Phone: [facility] Comment on above: Primary osteoarthrit is of right knee (Primary Dx) Start: 08-13-2024 End: 08-13-2024 ambulatory Shawanda MEJIA Facility: [facility] Start: 08-13-2024 End: 08-13-2024 Patient encounter procedure Shawanda MEJIA [facility] [place] Start: 07-17-2024 End: 07-17-2024 ambulatory SAGE GOODE Not Available Start: 07-17-2024 End: 07-17-2024 Office outpatient visit 25 minutes Sage Goode DO Work Phone: [facility] Comment on above: NANCY (obstructive sle ep apnea) (Primary Dx); Hypersomnia; Snoring; Atrial fibrillation, unspecified type (CMS/HCC); Sleep deprivation Start: 07-17-2024 End: 07-17-2024 Bamboo flowsheet Sage Goode DO Work Phone: [facility] Start: 07-17-2024 End: 07-17-2024 Bamboo flowsheet Sage Goode DO Work Phone: [facility] Start: 07-16-2024 End: 07-16-2024 ambulatory [facility] Start: 06-12-2024 End: 06-12-2024 Bamboo flowsheet Román Dawson MD Work Phone: [facility] Start: 06-12-2024 End: 06-12-2024 Bamboo flowsheet Román Dawson MD Work Phone: [facility] Start: 06-12-2024 End: 06-12-2024 ambulatory ROMÁN DAWSON Not Available Start: 06-12-2024 End: 06-12-2024 Office outpatient visit 25 minutes Román Dawson MD Work Phone: [facility] Comment on above: Sarah's disease (CMS/HCC) (Primary Dx) Start: 06-11-2024 End: 06-11-2024 ambulatory OSMIN ANTHONY [facility] Start: 06-11-2024 End: 06-11-2024 Patient encounter procedure Osmin Anthony MD Work Phone: [facility] Comment on above: Primary osteoarthrit is of right knee (Primary Dx) Start: 06-06-2024 End: 06-06-2024 ambulatory MD Ilda Peck Work Phone: [facility] Work Phone: Start: 06-06-2024 End: 06-06-2024 Patient encounter procedure MD Ilda Peck Work Phone: [facility] Nephrology Bobby Work Phone: Start: 06-03-2024 Non-patient / Non-visit MD Ravi Peck Work Phone: [facility] Work Phone: Start: 05-29-2024 End: 05-29-2024 ambulatory Shawanda R SUKHL Facility:CD:[id number] Start: 05-07-2024 End: 05-07-2024 ambulatory Shawanda R NILL Facility:[facility] [place] Start: 05-07-2024 End: 05-07-2024 Patient encounter procedure Shawanda R NILL [facility] [place] Start: 05-06-2024 ambulatory Shawanda NILL Facility:[facility] [place] Start: 04-05-2024 End: 04-05-2024 ambulatory MD Ilda Peck Work Phone: [facility] Work Phone: Start: 04-05-2024 End: 04-05-2024 Departed Referred MD Ilda Peck Work Phone: [facility] [place] [facility] Start: 02-07-2024 End: 02-07-2024 ambulatory EHAB [facility] Start: 12-26-2023 End: 12-26-2023 ambulatory [facility] Start: 12-03-2023 Letter encounter [employer] Work Phone: Start: 11-27-2023 ambulatory Vianey Lewisi ty:[facility] [place] Start: 11-17-2023 Evaluation and management of inpatient [facility] Start: 11-17-2023 Evaluation and management of inpatient [facility] Start: 11-16-2023 Evaluation and management of inpatient [facility] Start: 11-16-2023 ambulatory [facility] Start: 11-16-2023 ambulatory [facility] Start: 11-16-2023 End: 11-17-2023 Evaluation and management of inpatient [facility] Start: 11-02-2023 End: 11-02-2023 Patient encounter procedure Osmin Anthony MD Work Phone: [facility] Comment on above: Primary osteoarthrit is of right knee (Primary Dx) Start: 11-02-2023 End: 11-02-2023 ambulatory OSMIN ANTHONY [facility] Start: 10-30-2023 End: 10-30-2023 ambulatory [facility] Start: 10-16-2023 End: 10-16-2023 Patient encounter procedure Vianey SILVERMAN [facility] [place] Start: 09-08-2023 End: 09-08-2023 ambulatory [facility] Start: 08-10-2023 End: 08-10-2023 ambulatory [facility] Start: 07-27-2023 End: 07-27-2023 ambulatory Sandoval Knight Other [employer] Other Start: 07-27-2023 Office outpatient ne w 45 minutes Sandoval Antonia [facility] Start: 06-12-2023 End: 06-12-2023 Patient encounter procedure Vianey SILVERMAN [facility] Start: 05-03-2023 End: 05-03-2023 Patient encounter procedure Taylor Joshua [facility] Start: 04-26-2023 End: 04-26-2023 ambulatory ILDA PECK Facility:[facility] Start: 04-26-2023 End: 04-26-2023 Patient encounter procedure Shawanda Hernandez PA-C Work Phone: Spine Medicine Comment on above: Height loss (Primary Dx) Start: 03-08-2023 End: 03-08-2023 Patient encounter procedure KYLE RODRIGUEZ [facility] Start: 01-20-2023 End: 01-21-[address] ILDA PECK . Facility:[facility] Start: 12-02-2022 End: 12-02-2022 Patient encounter procedure Vianey SILVERMAN [facility] Start: 11-18-2022 End: 11-19-[address] ILDA PECK . Facility:[facility] Start: 11-08-2022 End: 11-09-2022 ambulatory TAYLOR JOSHUA . Facility:[facility] Start: 11-01-2022 End: 11-01-2022 Patient encounter procedure KYLE RODRIGUEZ [facility] Start: 10-05-2022 End: 10-05-2022 Patient encounter procedure KYLE RODRIGUEZ [facility] Start: 09-07-2022 End: 09-07-2022 Patient encounter procedure Taylor Joshua [facility] Start: 08-28-2022 Letter encounter Jovita Virk MD Work Phone: [facility] Start: 08-17-2022 End: 08-17-2022 Patient encounter procedure Taylor Joshua [facility] Start: 08-12-2022 Telephone encounter Aarti vences MA, [facility], SENIOR GENETIC COUNSELOR Work Phone: [facility] Speech Therapy Start: 07-21-2022 End: 07-22-[address] ILDA PECK . 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); Cognitive changes; Body mass index (BMI) 28.0-28.9, adult Start: 07-11-2022 End: 07-11-2022 Patient encounter procedure Vianey SILVERMAN [facility] Start: 06-15-2022 End: 06-16-[address] SAEED Flores Facility:[facility] Start: 06-13-2022 End: 06-13-2022 Patient encounter procedure Vianey SILVERMAN [facility] Start: 04-27-2022 End: 04-28-[address] SAEED Flores Facility:[facility] Start: 04-07-2022 Refnikky Virk MD [facility] [place] [facility] Comment on above: Refill Start: 03-21-[address] ILDA PECK . Facili ty:[facility]1 Start: 03-17-[address] ILDA PECK . Facili ty:[facility] Start: 03-09-2022 Encounter for genera l adult medical examination without abnormal findings DR ILDA PECK . [facility] Start: 03-07-2022 End: 03-08-2022 Encounter for general adult medical examination without abnormal findings DR ILDA PECK . Facility:[facility] Start: 03-07-2022 End: 03-08-[address] ILDA PECK . Facility:[facility] Start: 03-01-2022 End: 03-01-2022 Patient encounter procedure Saeed Cantu Jr. [facility] Start: 02-01-2022 End: 02-01-2022 Patient encounter procedure Saeed Cantu Jr. [facility] Start: 01-04-2022 End: 01-04-2022 Patient encounter procedure Saeed Cantu Jr. [facility] Procedures Date Procedure Procedure Detail Performing Clinician Start: 10-08-2024 Arthrocentesis aspir &/inj major jt/bursa w/o us Osmin Anthony MD Work Phone: Start: 06-11-2024 Arthrocentesis aspir &/inj major jt/bursa w/o us Osmin Anthony MD Work Phone: Start: 06-11-2024 Follow-up visit Follow-up UNIQUE ANTHONY Start: 05-29-2024 Colonoscopy Shawanda GREER Start: 11-02-2023 Arthrocentesis aspir &/inj major jt/bursa w/o us Osmin Anthony MD Work Phone: Start: 09-08-2023 Follow-up visit Follow-up JEOVANNY SANTOYO Start: 06-15-[address] FABIÁN PECK . Comment on above: Performed By: #### T ESTTOT #### [facility] [address] [address] [address] Reuben Morrison Start: 03-07-[address] FABIÁN PECK . Comment on above: Performed By: #### I BLAIR, PSASC, VITB12, VITAD #### [facility] [address] [address] [address] Reuben Morrison Start: 12-21-2016 Cystourethroscopy wi [...] DTaP,Tdap and Td Vaccines (2 - Tdap) [employer] [facility] Start: 09-04-2031 Urine microalbumin profile DTAP,TDAP,TD (2 - Tdap) [facility] Start: 06-15-2027 PROSTATE CANCER SCREENING DISCUSSION PROSTATE CANCER SCREENING DISCUSSION [facility] Start: 11-30-2025 Lipid panel Cholesterol [facility] Start: 07-15-2025 End: 07-15-2025 Patient encounter procedure 07/15/2025 3:00 PM EDT [facility] [address] [place] [id number] Sage Goode DO [address] [place] [address] [facility] Start: 06-11-2025 Adult BMI Screening Adult BMI Screening [facility] Start: 06-11-2025 Tobacco Screening Tobacco Screening [facility] Start: 06-11-2025 End: 06-11-2025 Patient encounter procedure 06/11/2025 10:30 AM EDT Office Visit [facility] [address] [place] [id number] Román Dawson MD [address] [place] [address] [facility] Start: 11-02-2024 Adult BMI Screening Adult BMI Screening [facility] Start: 11-02-2024 Tobacco Screening Tobacco Screening [facility] Start: 07-17-2024 End: 07-17-2024 Patient encounter procedure 07/17/2024 2:30 PM EDT Office [facility] [place] [facility] [address] [place] [id number] Sage Goode DO [address] [place] [address] [facility] Start: 06-12-2024 End: 06-12-2025 Thyrotropin [Units/volume] in Serum or Plasma TSH Lab Routine Sarah's disease (CMS/HCC) Expected: 06/12/2024 (Approximate), Expires: 06/12/2025 [facility] Comment on above: Expected: 06/12/2024 (Approximate), Expi res: 06/12/2025 Start: 06-12-2024 End: 09-18-2025 Thyroxine (T4) free [Mass/volume] in Serum or Plasma T4, free Lab Routine Sarah's disease (CMS/HCC) Expected: 06/12/2024 (Approximate), Expires: 06/12/2025 [facility] Comment on above: Expected: 06/12/2024 (Approximate), Expi res: 06/12/2025 Start: 06-12-2024 End: 06-12-2025 Triiodothyronine (T3) Free [Mass/volume] in Serum or Plasma T3, free Lab Routine Sarah's disease (CMS/HCC) Expected: 06/12/2024 (Approximate), Expires: 06/12/2025 [facility] Work Phone: Comment on above: Expected: 06/12/2024 (Approximate), Expi res: 06/12/2025 Start: 05-26-2024 COVID-19 Vaccine ( season) COVID-19 Vaccine ( season) [facility] Start: 05-26-2024 COVID-19 Vaccine ( season) COVID-19 Vaccine ( season) [facility] Start: 05-26-2024 Influenza vaccination [facility] Start: 02-22-2024 Fall Risk Screening Fall Risk Screening [facility] Start: 02-22-2024 Pneumococcal Vaccine: 65+ Years (1 of 1 - PCV) Pneumococcal Vaccine: 65+ Years (1 of 1 - PCV) [facility] Start: 05-26-2023 COVID-19 Vaccine ( season) COVID-19 Vaccine ( season) [facility] Start: 05-26-2023 Influenza vaccination INFLUENZA (#1) [facility] Start: 09-25-2022 DEPRESSION ASSESSMENT DEPRESSION ASSESSMENT [facility] Start: 09-20-2022 COVID-19 Vaccine (5 - Booster for Pfizer series) COVID-19 Vaccine (5 - Booster for Pfizer series) [facility] Start: 09-20-2022 COVID-19 VACCINE (5 - Pfizer series) COVID-19 VACCINE (5 - Pfizer series) [facility] Start: 07-19-2022 End: 07-19-2022 Patient encounter procedure 07/19/2022 Office Visit Physical Medicine & Rehab/PM&R Jovita Virk MD [address] [place] [id number] [facility] [place] [facility] Start: 06-25-2022 Influenza vaccination Influenza Vaccine (#1) [facility] Start: 05-31-2022 Shingles (RZV) Vaccine (2 of 2) Shingles (RZV) Vaccine (2 of 2) [facility] Start: 01-19-2022 COVID-19 Vaccine (4 - Booster for Pfizer series) COVID-19 Vaccine (4 - Booster for Pfizer series) [facility] Start: 11-15-2021 COVID-19 Vaccine (4 - Booster for Pfizer series) COVID-19 Vaccine (4 - Booster for Pfizer series) [facility] Start: 09-05-2021 Lipid panel Cholesterol [facility] Start: 12-04-2020 DIABETES SCREEN DIABETES SCREEN [facility] Start: 2019 Hepatitis B (HBV) Vaccine (optional start 60+ years) Hepatitis B (HBV) Vaccine (optional start 60+ years) [facility] Start: 2019 RSV vaccine (optional 60+ years) RSV vaccine (optional 60+ years) [facility] Start: 11-23-2014 Annual wellness visit Annual Wellness Visit (G0438) [facility] Start: 06-10-2012 Thyroid stimulating hormone measurement TSH [facility] Start: 2009 Measurement of occult blood in single stool specimen FIT [facility] Start: 2009 Screening for malignant neoplasm of colon [facility] Start: 2009 Shingles (RZV) Vaccine (1 of 2) Shingles (RZV) Vaccine (1 of 2) [facility] Start: 02-22-2004 COLOGUARD (FIT-DNA) COLOGUARD (FIT-DNA) [facility] Start: 02-22-2004 Colonoscopy COLONOSCOPY [facility] Start: 02-22-2004 COLORECTAL CANCER SCREENING COLORECTAL CANCER SCREENING [facility] Start: 02-22-[address] COLONOGRAPHY [facility] Start: 02-22-2004 FECAL OCCULT BLOOD FECAL OCCULT BLOOD [facility] Start: 02-22-2004 Screening for malignant neoplasm of colon [facility] Start: 02-22-2004 SIGMOIDOSCOPY SIGMOIDOSCOPY [facility] Start: 1994 LIPID SCREEN LIPID SCREEN [facility] Start: 1978 Hepatitis A (HAV) Vaccine (optional start 19+ years) Hepatitis A (HAV) Vaccine (optional start 19+ years) [facility] Start: 1977 Adult BMI Follow Up Plan Adult BMI Follow Up Plan [facility] Start: 1977 ANNUAL PCP TEAM CHRONIC DISEASE VISIT ANNUAL PCP TEAM CHRONIC DISEASE VISIT [facility] Start: 1977 Hepatitis C screening Hepatitis C Antibody [facility] Start: 1977 HEPATITIS C SCREENING HEPATITIS C SCREENING [facility] Start: 1977 HIV SCREENING HIV SCREENING [facility] Start: 1977 SPIROMETRY SPIROMETRY [facility] Start: 1977 Tetanus + diphtheria + acellular pertussis vaccine (product) Tdap Booster [facility] Start: 1974 HIV screening HIV Test [facility] Start: 1971 Depression Screening Depression Screening [facility] Start: 1965 PNEUMOCOCCAL (1 - PCV) PNEUMOCOCCAL (1 - PCV) [facility] Start: 1959 Medicare Annual Wellness Visit Medicare Annual Wellness Visit [facility] Start: 1959 Screening for malignant neoplasm of colon [facility] Immunizations Immunization Date Immunization Notes Care Provider Elicia [facility] 08-10-2023 influenza virus vaccine, unspecified formulation Shawanda MEJIA [facility] [place] 08-10-2023 Influenza, injectabl e, Madin [place] Canine Kidney, preservative free, quadrivalent [facility] Work Phone: 08-29-2022 zoster vaccine recombinant Shawanda Hernandez PA-C Work Phone: [facility] 07-26-2022 Moderna Monovalent (12+ yrs) COVID-19 vaccine, mRNA, spike protein, LNP, PF, 100 mcg/0.5 mL (PWH=760) [facility] [place] 07-25-2022 Influenza, injectabl e, Madin [place] Canine Kidney, preservative free, quadrivalent Jovita Virk MD Work Phone: [facility] 04-05-2022 zoster vaccine recombinant Jovita Virk MD Work Phone: [facility] 09-20-2021 SARS-CoV-2 (COVID-19 ) mRNA BNT-162b2 vax Shawanda MEJIA [facility] [place] 09-04-2021 diphtheria, tetanus toxoids and pertussis vaccine Jovita Virk MD Work Phone: [facility] 08-25-2021 SARS-CoV-2 (COVID-19 ) Ad26 vaccine, recombinant Saeed Cantu Jr. [facility] 08-10-2021 influenza, injectabl e, quadrivalent, preservative free Jovita Vrik MD Work Phone: [facility] 08-10-2021 influenza virus vaccine, unspecified formulation Jovita Virk MD Work Phone: [facility] 06-25-2021 influenza virus vaccine, unspecified formulation Saeed Cantu Jr. [facility] 12-22-2020 Pfizer (12+ yrs) SARS-COV-2 (COVID-19) vaccine, mRNA, spike protein, LNP, pres. free, 30 mcg/0.3mL dose (SHP=483) Jovita Virk MD Work Phone: [facility] 11-30-2020 Pfizer (12+ yrs) SARS-COV-2 (COVID-19) vaccine, mRNA, spike protein, LNP, pres. free, 30 mcg/0.3mL dose (QOB=760) Jovita Virk MD Work Phone: [facility] 08-25-2020 influenza virus vaccine, unspecified formulation Saeed Cantu Jr. [facility] 06-30-2020 influenza, injectabl e, quadrivalent, preservative free Jovita Virk MD Work Phone: [facility] 12-25-2019 SARS-CoV-2 (COVID-19 ) mRNA BNT-162b2 beau Cantu Jr. [facility] 11-24-2019 SARS-CoV-2 (COVID-19 ) mRNA BNT-162b2 beau Cantu Jr. [facility] Payers Date Payer Category Payer Self-pay 2023 Unknown [id number] 2022 [employer] [place] [facility] [id number] 2022 [employer] [place] [facility] PPO ANTHEM [id number] 2022 Unknown [id number] 2017 Unknown [id number] .[id number] 2017 Unknown [id number] 2013 Medicare [id number] 1959 Self-pay [id number] 1959 Unknown [id number] 2.16.840.1.771364.3.579.2. 593 1959 Unknown [id number] 2.16.840.1.867132.3.579.2. 593 1959 Unknown [id number] 2.16.840.1.898604.3.579.2. 593 1959 Unknown [id number] 2.16.840.1.830123.3.579.2. 593 1959 Unknown [id number] 2.16.840.1.683160.3.579.2. 593 1959 Unknown [id number] 2.16.840.1.124714.3.579.2. 593 1959 Unknown [id number] 2.16.840.1.046632.3.579.2. 593 1959 Unknown [id number] 2.16.840.1.900732.3.579.2. 59 1959 Unknown [id number] 2.16.840.1.770650.3.579.2. 593 1959 Unknown [id number] 2.16.840.1.941729.3.579.2. 59 1959 Unknown [id number] 2.16.840.1.877835.3.579.2. 593 1959 Unknown [id number] 2.16.840.1.052005.3.579.2. 1259 1959 Unknown [id number] 2.16.840.1.811895.3.579.2. 1259 1959 Unknown [id number] 2.16.840.1.780686.3.579.2. 1286 1959 Unknown [id number] 2.16.840.1.152425.3.579.2. 128 1959 Unknown [id number] 2.16.840.1.888206.3.579.2. 1286 1959 Unknown [id number] 2.16.840.1.171842.3.579.2. 727 1959 Unknown [id number] 2.16.840.1.422493.3.579.2. 727 1959 Unknown [id number] 2.16.840.1.410577.3.579.2. 727 1959 Unknown [id number] 2.16.840.1.412049.3.579.2. 727 1959 Unknown [id number] 2.16.840.1.670124.3.579.2. 727 1959 Unknown [id number] 2.16.840.1.982980.3.579.2. 727 Medicare [id number] Private Health Insurance [facility] [id number] Unknown [id number] 2.16.840.1.980778.3.579.2. 593 Unknown MMO [employer] [id number] Unknown [id number] 2.16.840.1.485357.3.579.2. 531 Social History Date Type Detail Facility Start: 10-05-2021 End: 10-21-2024 Tobacco smoking status Never smoked tobacco (finding) [facility] Tobacco smoking status Never [facility] Start: 11-05-2020 End: 04-26-2023 Sex Assigned At Male [facility] Start: 08-24-2011 End: 07-17-2024 Tobacco use and exposure Smokeless tobacco non-user [facility] Start: 12-07-2017 End: 08-12-2022 Alcohol intake Not Asked [facility] Start: 1960 Sex Assigned At Not on file [facility] Start: 08-12-2022 History SDOH Social Connections Phone 1 [facility] Start: 08-12-2022 History SDOH Social Connections Get Together 2 [facility] Start: 08-12-2022 History SDOH Social Connections Yazidi 98 [facility] Start: 08-12-2022 Education [facility] Start: 04-26-2023 End: 06-11-2024 Alcohol intake Current drinker of alcohol (finding) [facility] Start: 11-05-2020 End: 04-26-2023 History of Social function [facility] Start: 12-04-2017 Alcohol Comment social [facility] Start: 1960 Sex Assigned At Male F [facility] How often to you hav e a drink containing alcohol? Monthly or less [facility] How many standard drinks containing alcohol do you have on a typical day? 1 or 2 [facility] How often do you hav e 6 or more drinks on 1 occasion? Weekly [facility] Start: 04-30-2015 [facility] Start: 08-23-2021 Gender identity Identifies as male gender (finding) [facility] Medical Equipment Procedure Code Equipment Code Equipment Origin al Text Equipment Identifier Dates Brng Tib [id number] mm 0d Kn Ant - [id number] Start: 09-05-2016 Cement Bn Palaco s Radpq 40g Rpl [id number] - [id number] Start: 09-05-2016 Ty Tib 79mm Cocr Kn I Beam - [id number] Start: 09-05-2016 Cmpt Fem Kn Lt 7 0mm Cr Cmnt - [id number] Start: 09-05-2016 Cmpt Ptlr Thn 34 mm 3 Pg Kn Ser - [id number] Start: 09-05-2016 Goals Date Patient Goal Desired Activity /State Personal health goal Comment on above: Formatting of this n ote might be different from the original. Evaluation of progress towards goal: Maximize work with PT at discharge to strengthen L knee Functional Status Date Assessment Result Facility 10-21-2024 Functional Status N/A [facility] 08-13-2024 Functional Status N/A [facility] [place] 05-07-2024 Functional Status N/A [facility] [place] 10-16-2023 Functional Status N/A [facility] 06-12-2023 Functional Status N/A [facility] 12-02-2022 Functional Status N/A [facility] Clinical Notes 04-07-2022 to 10-21-2024 Osmin Anthony MD - 10/08/2024 2:30 PM Marco Antonio Goode DO - 07/17/2024 2:30 PM Vin Dawson MD - 06/12/2024 10:30 AM Ge Anthony MD - 06/11/2024 11:00 AM EDT Note Date & Type Note Facility 10-21-2024 Hospital Discharge instructions Patient Education 10/21/2024 11:42:26 Benign Prostatic Hyperplasia Benign Prostatic Hyperplasia Benign prostatic hyperplasia (BPH) is an enlarged prostate gland that is caused by the normal aging process. The prostate may get bigger as a man gets older. The condition is not caused by cancer. The prostate is a walnut-sized gland that is involved in the production of semen. It is located in front of the rectum and below the bladder. The bladder stores urine. The urethra carries stored urine out of the body. An enlarged prostate can press on the urethra. This can make it harder to pass urine. The buildup of urine in the bladder can cause infection. Back pressure and infection may progress to bladder damage and kidney (renal) failure. What are the causes? This condition is part of the normal aging process. However, not all men develop problems from this condition. If the prostate enlarges away from the urethra, urine flow will not be blocked. If it enlarges toward the urethra and compresses it, there will be problems passing urine. What increases the risk? This condition is more likely to develop in men older than 50 years. What are the signs or [...] urethra. Follow these instructions at home: Take avut-wrc-syxwlil and prescription medicines only as told by your health care provider. Monitor your symptoms for any changes. Contact your health care provider with any changes. Avoid drinking large amounts of liquid before going to bed or out in public. Avoid or reduce how much caffeine or alcohol you drink. Give yourself time when you urinate. Keep all follow-up visits. This is important. Contact a health care provider if: You have unexplained back pain. Your symptoms do not get better with treatment. You develop side effects from the medicine you are taking. Your urine becomes very dark or has a bad smell. Your lower abdomen becomes distended and you have trouble passing urine. Get help right away if: You have a fever or chills. You suddenly cannot urinate. You feel light-headed or very dizzy, or you faint. There are large amounts of blood or clots in your urine. Your urinary problems become hard to manage. You develop moderate to severe low back or flank pain. The flank is the side of your body between the ribs and the hip. These symptoms may be an emergency. Get help right away. Call 911. Do not wait to see if the symptoms will go away. Do not drive yourself to the hospital. Summary Benign prostatic hyperplasia (BPH) is an enlarged prostate that is caused by the normal aging process. It is not caused by cancer. An enlarged prostate can press on the urethra. This can make it hard to pass urine. This condition is more likely to develop in men older than 50 years. Get help right away if you suddenly cannot urinate. This information is not intended to replace advice given to you by your health care provider. Make sure you discuss any questions you have with your health care provider. Document Revised: 03/30/2022 Document Reviewed: 03/30/2022 [employer] Patient Education 2023 [employer]. Follow Up Care 10/16/2023 14:07:51 With:HERRERA PRIETO, Vianey Crawford, URL Address: [facility] [address] , [place] [address] [phone] When: Unknown Comments:1 yr w/ PSA and T level [facility] Garth 10-21-2024 Note Patient Education Urology Benign Prostatic Hyperplasia Benign prostatic hyperplasia (BPH) is an enlarged prostate gland that is caused by the normal aging process. The prostate may get bigger as a man gets older. The condition is not caused by cancer. The prostate is a walnut-sized gland that is involved in the production of semen. It is located in front of the rectum and below the bladder. The bladder stores urine. The urethra carries stored urine out of the body. An enlarged prostate can press on the urethra. This can make it harder to pass urine. The buildup of urine in the bladder can cause infection. Back pressure and infection may progress to bladder damage and kidney (renal) failure. What are the causes? This condition is part of the normal aging process. However, not all men develop problems from this condition. If the prostate enlarges away from the urethra, urine flow will not be blocked. If it enlarges toward the urethra and compresses it, there will be problems passing urine. What increases the risk? This condition is more likely to develop in men older than 50 years. What are the signs or symptoms? Symptoms of this condition include: ??? Getting up often during the night to urinate. ??? Needing to urinate frequently during the day. ??? Difficulty starting urine flow. ??? Decrease in size and strength of your urine stream. ??? Leaking (dribbling) after urinating. ??? Inability to pass urine. This needs immediate treatment. ??? Inability to completely empty your bladder. ??? Pain when you pass urine. This is more common if there is also an infection. ??? Urinary tract infection (UTI). How is this diagnosed? This condition is diagnosed based on your medical history, a physical exam, and your symptoms. Tests will also be done, such as: ??? A post-void bladder scan. This measures any amount of urine that may remain in your bladder after you finish urinating. ??? A digital rectal exam. In a rectal exam, your health care provider checks your prostate by putting a lubricated, gloved finger into your rectum to feel the back of your prostate gland. This exam detects the size of your gland and any abnormal lumps or growths. ??? An exam of your urine (urinalysis). ??? A prostate specific antigen (PSA) screening. This is a blood test used to screen for prostate cancer. ??? An ultrasound. This test uses sound waves [...] severity of your condition. Treatment may include: ??? Observation and yearly exams. This may be the only treatment needed if your condition and symptoms are mild. ??? Medicines to relieve your symptoms, including: ? Medicines to shrink the prostate. ? Medicines to relax the muscle of the prostate. ??? Surgery in severe cases. Surgery may include: [...] the urethra. Follow these instructions at home: ??? Take xffx-rhk-segjikt and prescription medicines only as told by your health care provider. ??? Monitor your symptoms for any changes. Contact your health care provider with any changes. ??? Avoid drinking large amounts of liquid before going to bed or out in public. ??? Avoid or reduce how much caffeine or alcohol you drink. ??? Give yourself time when you urinate. ??? Keep all follow-up visits. This is important. Contact a health care provider if: ??? You have unexplained back pain. ??? Your symptoms do not get (more content not included)... [facility] 10-08-2024 History of Present illness Narrative Associated Order(s): $ Large Joint Injection: R knee Post-Procedure Diagnose(s): Primary osteoarthritis of right knee 10/08/2024 Vianey Lacey is a 64 y.o. male CC: Chief Complaint Patient presents with Follow-up Right knee pain - wants injection - last seen 06/11/24 HPI: Reports recurrent right knee pain and ongoing functional limitation. Interested in re-injection. Vitals: 10/08/24 1440 Weight: 84.4 kg (186 lb) Height: 170.2 cm (5' 7 ) ASSESSMENT: 1. Primary osteoarthritis of right knee PLAN: Treatment options were reviewed. Vianey Lacey elected to proceed with a steroid injection today. Will monitor symptoms for the next several days. Return in about 3 months (around 01/06/2025) for Recheck, Injection. The patient was advised to contact the office if there are any problems, questions, or concerns. *I have seen and evaluated the patient today with my physician fire assistant and agree with all aspects of the above note and care provided. I was present for all critical portions of the care and I have reviewed all the images/labs/test results and have devised the plan and made all medical decision making today. Any procedure, if performed was performed by myself. $ Large Joint Injection: R knee on 10/08/2024 2:40 PM Indications: pain Details: 22 G needle, medial [...] via procedure documentation documented in this encounter [facility] 08-13-2024 Note General Surgery Offi ce/Clinic Note Chief Complaint consultation for foreign body HPI Staff 64 year old male presents on consultation from Dr. Peck for foreign body left thumb. History of Present Illness patient referred for foreign body in thumb, sore, happened yesterday when doing yard work; no drainage; on Eliquis due to atrial fibrillation. Review of Systems PHQ Score Initial Depression [...] noncontributory. Physical Exam Vitals & Measurements HR: 72(Peripheral) RR: 16 BP: 122/82 HT: 67 in HT: 170 cm skin: superficial dark foreign body in distal thenar eminence; no erythema or drainage, no hematoma or ecchymosis. Assessment/Plan 1. Puncture wound with foreign body of left thumb without damage to nail, initial encounter (S61.042A: Puncture wound with foreign body of left thumb without damage to nail, initial encounter) removed with 18 g needle after area anesthetized with 1% lidocaine, sterile conditions; tolerated well; band-aid applied; call with problems/questions. Follow-up No qualifying data available Problem List/Past Medical History Ongoing Acute combined systolic (congestive) and diastolic (congestive) heart failure ADD (attention deficit disorder) Atrial fibrillation BMI 28.0-28.9,adult BPH with urinary obstruction Chronic anticoagulation CVD (cerebrovascular disease) Eczema ED (erectile dysfunction) Foreign body of thumb H/O head injury HTN (hypertension) Hypogonadism male Hypothyroidism Lumbar radiculopathy Male impotence Neutropenia Nocturia Overweight Protein in urine Screening for malignant neoplasm of colon Sleep apnea Spinal stenosis Thrombocytopenia Urge incontinence Vitamin B12 deficiency Weak urine stream Historical No qualifying data Procedure/Surgical History Colonoscopy (05/29/2024), Cystourethroscopy with dilation of urethral stricture (12/21/2016), [...] per week, 05/07/2019 Substance Abuse - Denies Substance Abuse, 05/07/2024 Tobacco - Denies Tobacco Use, 05/07/2019 Never (less than 100 in lifetime) Tobacco Use:. Never Smokeless Tobacco Use:. Household tobacco concerns: No. Yes, 08/13/2024 Family History COPD: Father. Heart disease: Father. Lymphoma: Father. Primary malignant neoplasm of brain: Mother. Primary malignant neoplasm of female breast: Mother. Primary malignant neoplasm of lung: Mother. Immunizations Vaccine Date Status influenza virus vaccine, inactivated 08/10/2023 Recorded SARS-CoV-2 (COVID-19) mRNA-1273 vaccine 07/26/2022 Recorded SARS-CoV-2 (COVID-19) mRNA BNT-162b2 vax 09/20/2021 Recorded SARS-CoV-2 (COVID-19) Ad26 vaccine 08/2021 Recorded influenza virus vaccine, inactivated 06/2021 Recorded SARS-CoV-2 (COVID-19) mRNA BNT-162b2 vax 12/22/2020 Recorded SARS-CoV-2 (COVID-19) mRNA BNT-162b2 vax 11/30/2020 Recorded influenza virus vaccine, inactivated 08/2020 Recorded SARS-CoV-2 (COVID-19) mRNA BNT-162b2 vax 12/2019 Recorded SARS-CoV-2 (COVID-19) mRNA BNT-162b2 vax 11/2019 Recorded [facility] Comment on above: Result Comment: Elec tronically Signed By: ROBERTO PRIETO, Shawanda Young\Date and Time Signed: 08/13/24 21:11 EST 07-17-2024 History of Present illness Narrative Images [...] apnea) Hypersomnia Snoring Atrial fibrillation, unspecified type (CMS/HCC) Sleep deprivation 64 year old male with [...] was counseled on the risks of stroke, [place], and sudden with NANCY, along with the [...] clinic: 2 months documented in this encounter [facility] 07-16-2024 Note [facility] Consult Note Reason [...] Box isolaton+ 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 2. Atrial flutter s/p [...] function. He is also recently seen a cable tool operator. They are weaning of amantadine which [...] Year: No Utilities: Not At Risk (11/16/2023) [facility] Utilities Threatened with loss of [...] route for 90 days. vitamin B complex 757-1-022-2-2 mg/mL injection Inject into the shoulder, thigh, [...] as directed. (Pa (more content not included)... [facility] 06-12-2024 History of Present illness Narrative Vianey Lacey is a 64 y.o. male No ref. provider found presents with chief complaint of Follow-up (thyroid) HPI: Interim History 05/2024. Follow up visit on 06/12/2024 for lab. free T4 0.79 (0.76-1.46), TSH 0.664, free T3 3.68 (2.18-3.98) and he is on levothyroxine 100 mcg daily and Cytomel 25 half tablet. Interim History 02/2024. Follow up visit on 02/28/2024 for lab. TPO 544 (0-34), TG antibody 14.2 (0-0.9), free T4 1.32 (0.76-1.46), TSH 0.036, free T3 83.9 (2.18-3.98) and he is on levothyroxine 137 mcg daily and Cytomel 25 half tablet. HPI: 09/2023 New patient sent from Tracy Griffin, his oncologist, for hypothyroidism and labs done on 09/29/2023. TSH overcorrected 0.134, free T4 mildly low, 0.75 (0.76-1.46). Back in June 2023, T4 4.5 (4.5-12), free T3 3.17 (2.18-3.9). He is currently on levothyroxine 150 and liothyronine 25 half tablet in the morning since long time. Has a-fib. Plan for ablation soon. SUBJECTIVE: MEDICATIONS: Current Outpatient Medications Medication Instructions apixaban (ELIQUIS) 5 mg, Oral, 2 times daily ascorbic acid (VITAMIN C) 1,000 mg, Oral, Daily cholecalciferol (VITAMIN D-3) 5,000 Units, Oral, Daily hydrALAZINE (APRESOLINE) 25 mg, Oral, 3 times daily levothyroxine (SYNTHROID, LEVOXYL) 100 mcg, Oral, Daily before breakfast liothyronine (CYTOMEL) 25 mcg, Oral, Daily, Take 0.5 tabs po qd tamsulosin (FLOMAX) 0.4 mg, Oral, Daily ALLERGIES: No Known Allergies Past Medical History: Diagnosis Date A-fib (CMS/HCC) Arthritis Autoimmune thyroiditis (CMS/HCC) CHF (congestive heart failure) (CMS/HCC) Hypertension (CMS/HCC) Hypothyroidism (CMS/HCC) Low platelet count (CMS/HCC) Low vitamin B12 level Unspecified atrial fibrillation (CMS/HCC) Past Surgical History: Procedure Laterality Date CARDIOVERSION CT ANGIO HEAD 11/17/2023 CT ANGIO HEAD 11/17/2023 CT ANGIOGRAM NECK 11/17/2023 CT ANGIOGRAM NECK 11/17/2023 HERNIA REPAIR SPINAL FUSION Cervical TOTAL KNEE ARTHROPLASTY Left REVIEW OF SYMPTOMS: Review of Systems 14 POINT OF SYSTEM REVIEWED AND NEGATIVE OBJECTIVE: Visit Vitals BP 130/78 Pulse 68 Resp 16 Ht 5' 6.5 Wt 188 lb BMI 29.89 kg/m Smoking Status Never BSA 2 m Physical Exam Constitutional: Appearance: Normal appearance. He is normal weight. HENT: Head: Normocephalic and atraumatic. Right Ear: External ear normal. Nose: Nose normal. Mouth/Throat: Pharynx: Oropharynx is clear. Eyes: Extraocular Movements: Extraocular movements intact. Pupils: Pupils are equal, round, and reactive to light. Cardiovascular: Rate and Rhythm: Normal rate and regular rhythm. Pulmonary: Effort: Pulmonary effort is normal. Abdominal: General: Abdomen is flat. Palpations: Abdomen is soft. Musculoskeletal: General: Normal range of motion. Skin: General: Skin is warm. Neurological: General: No focal deficit present. Mental Status: He is alert. Psychiatric: Mood and Affect: Mood normal. Behavior: Behavior normal. ASSESSMENT AND PLAN: Assessment/Plan Diagnoses and all orders for this visit: Sarah's disease (CMS/HCC) - levothyroxine (Synthroid, Levoxyl) 100 MCG tablet; Take 1 tablet (100 mcg) by mouth in the morning. Take before meals. - T3, free; Future - T4, free; Future - TSH; Future We will continue with levothyroxine 100 mcg daily, liothyronine 25 half tablet daily Follow up in about 1 year (around 06/12/2025). documented in this encounter [facility] 06-11-2024 History of Present illness Narrative Associated Order(s): $ Large Joint Injection: R knee Post-Procedure Diagnose(s): Primary osteoarthritis of right knee 06/11/2024 Vianey Lacey is a 64 y.o. male CC: Chief Complaint Patient presents with Follow-up Right knee pain - wants injection - last seen 11/02/23 HPI: Reports recurrent right knee pain and ongoing functional limitation. He says that the periodic injections have been working well for him. Interested in re-injection. Vitals: 06/11/24 1120 Weight: 83.1 kg (183 lb 4 oz) Height: 170.2 cm (5' 7 ) ASSESSMENT: 1. Primary osteoarthritis of right knee PLAN: Treatment options were reviewed. He is not quite ready to consider knee replacement. He wished to continue with periodic steroid injection. Vianey elected to proceed with repeat steroid injection today. Will monitor symptoms for the next several days. Return for Call As Needed. The patient was advised to contact the office if there are any problems, questions, or concerns. *I have seen and evaluated the patient today with my physician fire assistant and agree with all aspects of the above note and care provided. I was present for all critical portions of the care and I have reviewed all the images/labs/test results and have devised the plan and made all medical decision making today. Any procedure, if performed was performed by myself. $ Large Joint Injection: R knee on 06/11/2024 11:29 AM Indications: pain Details: 22 G needle, [...] via procedure documentation [facility] General Surgery Offi ce/Clinic Note [...] prior to procedure. 2. Chronic anticoagulation (Z79.01: correction (current) use of 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s) see # 1 [...] - Denies Substa (more content not included)... [facility] Comment on above: Result Comment: Elec tronically Signed By: ROBERTO PRIETO, Shawanda Young\Date and Time Signed: 05/07/24 15:50 EDT 02-07-2024 Note [facility] Cardiology Clinic Note Chief Complaint: [...] days., Disp: , Rfl: vitamin B complex 900-7-257-2-2 mg/mL injection, Inject into the shoulder, thigh, [...] reversible ischemia. Ejection fraction is normal. Transesophageal Echocardiogram-[facility] Name: VIANEY LACEY Study Date: 07/11/2023 12:24 PM B/P: 104 mmHg/74 mmHg HR: Date of : 1960 Location: [facility] Height: 68 in. Age: 63 year(s) Patient Room : Weight: 189 lb. Gender: Male Patient Status: OutPt BSA: 2 m2 Indication: Atrial Fibrillation, Pre-Cardioversion Examination: JAMIN (Transesophageal Echo / CFI) Image Quality: Good Patient Consent: Informed, written consent was obtained for the procedure s p @ c 3 Exam Location: A JAMIN was performed in the [facility] without complications s p @ c 3 [...] mitral regurgitation. Tric (more content not included)... 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 2. Atrial flutter s/p [...] function. He is also recently seen a cable tool operator. They are weaning of amantadine which [...] Year: No Utilities: Not At Risk (11/16/2023) [facility] Utilities Threatened with loss of [...] tablet 0 tamsulo (more content not included)... [facility] 11-17-2023 Note Renal condition is stable [facility] 11-17-2023 Note 11/17/23 1017 Admission Assessment Questions [...] Discharge? No Does the patient have a leather case finisher assigned to them through their insurance? No Living Arrangement (Current/Prior to Hospitalization) Private residence;Home self care (one story house - 2 entry stairs) Does the patient have history of HHC or SNF? Yes ([facility] in [place] following brain injury 2010) Assistive Device Other [...] link and activate MyChart? MyChart already active [facility] 11-16-2023 Note ATRIAL FIBRILLATION ABLATION PROCEDURE NOTE DATE OF PROCEDURE: 11/16/2023 PERFORMING PHYSICIAN: Dr. Jeovanny Scott WEB PRESSMAN: Dr Blanca Verde CONSENT: Patient NAME OF [...] Coumadin ridge. Esophagus was mapped using the [employer] 3D mapping software and noted to be [...] revealed a lar (more content not included)... [facility] 11-16-2023 Note Patient: ODILON Irizarrynn Procedure Summary Date: 11/16/23 Room / Location: [facility] TRANSPORTATION MAINTENANCE SPECIALIST 1 EP / [facility] V[facility]ULAR [facility] (Cath) Anesthesia Start: 1210 [...] per anesthesia protocol. No notable events documented. [facility] 11-16-2023 Note Patient: ODILON Mcintosh Olynn Procedure Summary Date: 11/16/23 Room / Location: [facility] TRANSPORTATION MAINTENANCE SPECIALIST 1 EP / [facility] (Cath) Anesthesia Start: 1210 [...] Line Transport: uneventful Patient condition is: stable [facility] 11-16-2023 Note Airway Date/Time: 11/16/2023 12:27 PM Urgency: elective Airway not difficult General Information and Staff Patient location during procedure: OR Anesthesiologist: Gissell Heller MD Resident/PROVIDER RELATIONS CONSULTANT/CAA: Edy Marino DO Performed: resident/PROVIDER RELATIONS CONSULTANT/CAA Indications and Patient Condition Indications for airway [...] 1 Number of other approaches attempted: 0 [facility] 11-16-2023 Note Arterial Line: Date/Time: 11/16/2023 12:00 [...] mL - 11/16/2023 12:00:00 PM Staffing Performed: resident/PROVIDER RELATIONS CONSULTANT/CAA Resident/PROVIDER RELATIONS CONSULTANT: Tara Penny MD Performed by: Tara Penny MD Authorized by: Gissell Heller MD [facility] 11-16-2023 Note Patient: ODILON Lacey Procedure Information Anesthesia Start Date/Time: 11/16/23 1211 Procedures: Ablation atrial fibrillation JAMIN during EP case Location: [facility] TRANSPORTATION MAINTENANCE SPECIALIST 1 EP / [facility] VASCULAR LAB (Cath) Providers: Jeovanny Scott [...] 86 QT Interval 392 QTC CALCULATION(BAZETT) 429 R-Kearney -15 T Wave [place] -6 Impression Atrial fibrillation Abnormal ECG When compared with ECG of 11-JUL-2023 12:42, Atrial fibrillation has replaced Sinus rhythm Vent. rate has increased BY 25 BPM Transesophageal echo (JAMIN) with possible cardioversion Result Date: 07/11/2023 1 [facility] [address] [place] [address] [phone] (fax) Transesophageal Echocardiogram-[facility] Name: VIANEY LACEY Study Date: 07/11/2023 12:24 PM B/P: 104 mmHg/74 mmHg HR: Date of : 1960 Location: [facility] Height: 68 in. Age: 63 year(s) Patient Room: Weight: 189 lb. Gender: Male Patient Status: OutPt BSA: 2 m2 Indication: Atrial Fibrillation, Pre-Cardioversion Examination: JAMIN (Transesophageal Echo / CFI) Image Quality: Good Patient Consent: Informed, written consent was obtained for the procedure Exam Location: A JAMIN was performed in the [facility] without complications Anesthesia Pharyngeal anesthesia with viscous [...] in the aorta. Procedure Staff Reading Group: [facility] Gin Pole Operator: Cherrie Armstrong RDCS Ordering Physician: George Loza [...] Equipment Requests Tara Penny MD PGY 4 Skein Bander [facility] 11-02-2023 History of Present illness Narrative Associated [...] evaluated the patient today with my physician fire assistant and agree with all aspects of [...] via procedure documentation documented in this encounter [facility] 10-30-2023 Note [facility] Consult Note Reason [...] function. He is also recently seen a cable tool operator. They are weaning of amantadine which [...] route for 90 days. vitamin B complex 861-0-968-2-2 mg/mL injection Refill(s) 0 amantadine (Symmetrel) 100 [...] Inspection and Palpat (more content not included)... [facility] 10-30-2023 Note Patient here for H&P prior to afib ablation scheduled for 11/16/[address] Scott. Denies chest pain, SOB, palpitations, lightheadedness/syncope, and bleeding on Eliquis. Review of Systems Constitutional: Positive for malaise/fatigue. All other systems reviewed and are negative. [facility] 10-16-2023 Hospital Discharge instructions Patient Education 10/16/2023 [...] provider. Document Revised: 01/20/2022 Document Reviewed: 01/20/2022 [employer] Patient Education 2022 [employer]. Follow Up Care 07/31/2023 10:30:59 With:HERRERA PRIETO, Vianey Crawford, URL Address: [facility] [address], [place] [address]- When:Within 1 Year(s) Comments:w/AARON [facility] 09-08-2023 Note [facility] Consult [...] function. He is also recently seen a cable tool operator. They are weaning of amantadine which [...] route for 90 days. vitamin B complex 397-5-888-2-2 mg/mL injection Refill(s) 0 No current facility-administered [...] tender Musculoskeletal Ins (more content not included)... [facility] 08-10-2023 Note [facility] Cardiology Clinic Note Chief Complaint: [...] function. He is also recently seen a cable tool operator. They are weaning of amantadine which [...] days., Disp: , Rfl: vitamin B complex 053-5-905-2-2 mg/mL injection, Refill(s) 0, Disp: , Rfl: [...] reversible ischemia. Ejection fraction is normal. Transesophageal Echocardiogram[facility] Name: VIANEY LACEY Study Date: 07/11/2023 12:24 PM B/P: 104 mmHg/74 mmHg HR: Date of : 1960 Location: [facility] Height: 68 in. Age: 63 year(s) Patient Room : Weight: 189 lb. Gender: Male Patient Status: OutPt BSA: 2 m2 Indication: Atrial Fibrillation, Pre-Cardioversion Examination: JAMIN (Transesophageal Echo / CFI) Image Quality: Good Patient Consent: Informed, written consent was obtained for the procedure s p @ c 3 Exam Location: A JAMIN was performed in the [facility] without complications s p @ c 3 [...] A 12-lead EKG (more content not included)... [facility] [place] 07-27-2023 Evaluation note Encounter Date Diagnosis Assessment [...] advised him to avoid NSAIDs or any ldmw-fii-vievx er supplements. This deanna with the importance of good HTN control the progression of CKD. Jul, Pratik paris kid w cr kid I-IV (ICD-10 - [...] - G47.33) Continue follow-up with the specialist. [employer] Other 10-17-2023 History general Narrative - Reported* Type Description Date Medical History FATIGUE Medical History EDEMA Surgical History CARDIO VERSION 07/11/2023 Surgical History LEFT KNEE REPLACEMENT Surgical History C5-C6 PLATE AND SCREWS Surgical History DOUBLE HERNIA REPAIR Surgical History RIGHT SHOULDER SCOPE Surgical History COLONOSCOPY Surgical History CYSTO SCOPE Hospitalization History SEE ABOVE [employer] Other 09-18-2023 Hospital Discharge instructions Patient Education [...] therapy. Follow these instructions at home: Take koqv-umo-chwornq and prescription medicines only as told by [...] provider. Document Revised: 05/13/2021 Document Reviewed: 05/13/2021 [employer] Patient Education 2022 [employer]. Follow Up Care 05/04/2023 10:34:04 With:HERRERA PRIETO, Vianey Crawford, URL Address: [facility] [address] , [place] [address]- [phone] When:Within 6 Month(s) Comments:w/Testosterone Level, PSA and CBC [facility] Garth 08-02-2023 NoteHNO ID: [id number] Author: Shawanda Hernandez PA-C Service: ? Author Type: Physician Wooden Tank Erector Type: Progress Notes Filed: 04/26/2023 11:40 AM [...] Full Oblique Extension With (more content not included)...[facility] 04-26-2023 History of Present illness Narrative* [...] disease CVA (cerebral vascular accident) ([facility]) due to head trauma Dysarthria Eczema Hypothyroidism [...] 2023 TIME: 11:15 AM [facility] Discharge instructions Patient Education 12/02/2022 [...] urethra. Follow these instructions at home: Take xpya-rbw-ikfrmvl and prescription medicines only as told by [...] 09/11/2006 Document Revised: 08/06/2019 Document Reviewed: 10/16/2017 [employer] Patient Education 2020 [employer]. Follow Up Care 11/01/2022 10:29:54 With:HERRERA PRIETO, Vianey Crawford, URL Address: [address] [place] [address]- When: Unknown [facility] 11-18-2022 History of Present illness Narrative* Aarti Kelsey MA, [facility], SENIOR GENETIC COUNSELOR - 08/12/2022 12:27 PM EST SPEECH LANGUAGE PATHOLOGY OUTPATIENT ATTEMPTED VISIT NOTE Patient's spouse (Lakeisha) attempted to log on for virtual video visit for ST evaluation this date (08/12/2022) at scheduled time (9:45AM). Patient's spouse was having several set-backs during the preliminary phase of signing on for a video visit. Patient's spouse had to input information that she stated should already be in the system. SENIOR GENETIC COUNSELOR was speaking with patient's spouse via phone conversation attempting to troubleshoot and bypass the preliminary questionnaires. However, it was unsuccessful. SENIOR GENETIC COUNSELOR sent patient's spouse a direct link to her cell phone to connect to video visit and the same issues arose. Patient was connected to Wifi and using an iPad in home setting. The iPad did not successfully pass the hardware test and patient/patient's spouse were never able to successfully log on. SENIOR GENETIC COUNSELOR provided patient/patient's spouse the [facility] Support Team's contact information to reach out for further assistance with log on issues. SENIOR GENETIC COUNSELOR will e-mail patient's spouse/patient information regarding memory strategies, etc to help in the home setting (patient's spouse reported patient tends to misplace belongings, such as keys, etc and could use a refresher on the strategies. Patient's spouse stated she will take a look at the strategies and go from there with scheduling anything further. SENIOR GENETIC COUNSELOR provided patient/spouse with our direct line to SR Therapy dept if she has any further questions/concerns or needs to schedule. Patient left without being seen this date. documented in this [id number] Instructions* Patient Instructions* Jovita Virk MD - 07/20/2022 2:49 PM EDT -Get the sleep apnea addressed -Hold amantadine -Add memantine 5mg daily. -External referral for brain MRI. -Speech therapy for cognitive strategies. -R knee surgery. -F/up 1 year, sooner if needed. documented in this [id number] History of Present illness Narrative* Jovita Virk [...] 200 mg into the muscle once amonth. 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 Last available brain imaging [id number] showed ventriculomegaly that was deemed not hydrocephalus [...] Risk protocol implemented: No documented in this [id number] Telephone encounter Note* Telephone Encounter - Renetta [...] PCP on file No PCP on file [id number] Miscellaneous Notes* Telephone Encounter - Renetta Boyer [...] Appointments Appointment Date:02/01/2022 10:00:00 AM Scheduled Provider: Location:[facility] Appointment Type:URO Nurse Visit Appointment Date:03/01/2022 09:00:00 AM Scheduled Provider:Saeed Cantu Jr., MD Location:[facility] Appointment Type:URO Office Visit Appointment Date:04/05/2022 11:15:00 AM Scheduled Provider:Saeed Cantu Jr., MD Location:[facility] Appointment Type:URO Office Visit [facility] evaluation + Plan note Future Appointments Appointment Date:03/01/2022 09:00:00 AM Scheduled Provider:Saeed Cantu Jr., MD Location:[facility] Appointment Type:URO Office Visit Appointment Date:04/05/2022 11:15:00 AM Scheduled Provider:Saeed Cantu Jr., MD Location:[facility] Appointment Type:URO Office Visit [facility] evaluation + Plan note Future Appointments Appointment Date:04/05/2022 11:15:00 AM Scheduled Provider:Saeed Cantu Jr., MD Location:[facility] Appointment Type:URO Office Visit Diagnostic Tests Pending * Testosterone Level Total 03/01/22 [facility] evaluation + Plan note Future Appointments Appointment Date:07/11/2022 10:15:00 AM Scheduled Provider: Location:[facility] Appointment Type:URO Nurse Visit [facility] evaluation + Plan note Future Appointments Appointment Date:09/07/2022 10:00:00 AM Scheduled Provider: Location:[facility] Appointment Type:URO Nurse Visit [facility] evaluation + Plan note Future Appointments Appointment Date:10/05/2022 10:00:00 AM Scheduled Provider: Location:[facility] Appointment Type:URO Nurse Visit [facility] evaluation + Plan note Future Appointments Appointment Date:11/01/2022 10:00:00 AM Scheduled Provider: Location:[facility] Appointment Type:URO Nurse Visit [facility] evaluation + Plan note Future Appointments Appointment Date:11/30/2022 10:00:00 AM Scheduled Provider:Taylor Joshua MD Location:[facility] Appointment Type:URO Office Visit Diagnostic Tests Pending * CBC w/ Auto Diff 11/01/22 * Testosterone Level Total 11/01/22 [facility] evaluation + Plan note Diagnostic Tests Pending * Testosterone Level Total 12/17/22 * Testosterone Level Total 04/25/23 [facility] evaluation + Plan note Future Appointments Appointment Date:04/05/2023 10:00:00 AM Scheduled Provider: Location:[facility] Appointment Type:URO Nurse Visit [facility] evaluation + Plan note Future Appointments Appointment Date:05/30/2023 10:00:00 AM Scheduled Provider: Location:[facility] Appointment Type:URO Nurse Visit [facility] evaluation + Plan note Future Appointments Appointment Date:07/10/2023 09:30:00 AM Scheduled Provider: Location:[facility] Appointment Type:URO Nurse Visit Appointment Date:11/27/2023 09:45:00 AM Scheduled Provider:Vianey SILVERMAN MD Location:[facility] Appointment Type:URO Office Visit Diagnostic Tests Pending * Testosterone Level Total 06/12/23 * PSA Total 06/12/23 * CBC w/ Auto Diff 06/12/23 [facility] evaluation + Plan note Future Appointments Appointment Date:10/21/2024 10:15:00 AM Scheduled Provider:Vianey SILVERMAN MD Location:[facility] Appointment Type:URO Office Visit Diagnostic Tests Pending * PSA Total 10/16/23 [facility] evaluation + Plan note Future Appointments Appointment Date:10/21/2024 10:15:00 AM Scheduled Provider:Vianey SILVERMAN MD Location:[facility] Appointment Type:URO Office Visit [facility] Evaluation + Plan note Future Appointments Appointment Date:10/27/2025 10:30:00 AM Scheduled Provider:Vianey SILVERMAN MD Location:[facility] Appointment Type:URO Office Visit Diagnostic Tests Pending * PSA Total 10/21/24 * Testosterone Level Total 10/21/24 [facility] evaluation note* 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 Body mass index (BMI) 28.0-28.9, adult [facility] Height loss- Primary Loss of height documented [facility] noteNo assessment information [facility] Work Phone: evaluation note* Diagnosis Onset Date Resolution Status BPH (benign prostatic hyperplasia) acute CKD (chronic kidney disease) stage 2, GFR 60-89 ml/min acute [id number] acute NANCY (obstructive sleep apnea) acute Renal cyst acute [facility] Work Phone: evaluation note* Diagnosis NANCY (obstructive sleep apnea)- Primary Obstructive sleep apnea (adult) (pediatric) Hypersomnia Hypersomnia, unspecified Snoring Other dyspnea and respiratory abnormality Atrial fibrillation, unspecified type ([facility]/HCC) Sleep deprivation Problems related to lack of adequate sleep [facility]* 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 documented in this encounter [facility] HealthcareEvaluation note* Diagnosis Primary osteoarthritis of right knee- Primary [facility] Diagnosis Primary osteoarthritis of right knee- Primary [facility] Diagnosis Primary osteoarthritis of right knee- Primary [facility] Narrative No data available for this section [facility] Hospital Discharge instructions No data available for this section [facility] InstructionsNot on filedocumented in this encounter [facility] [employer] SystemInstructionsNot on filedocumented in this encounter [facility] note No data available for this section [facility] Advance Directives Latest Code Status on File Code Status Date Activated Date Inactivated Comments Full Code 06/09/2011 2:48 PM 06/28/2011 2:29 PM Full Code 06/05/2011 4:23 AM 06/09/2011 2:48 PM Latest Code Status on File Code Status Date Activated Date Inactivated Comments Full Code 06/09/2011 2:48 PM 06/28/2011 2:29 PM Full Code 06/05/2011 4:23 AM 06/09/2011 2:48 PM Advance Directive Response Recorded Date/ Time Advance Directives No October 28, 2023 12:48pm Latest Code Status on File Code Status Date Activated Date Inactivated Comments Full Code 06/09/2011 2:48 PM 06/28/2011 2:29 PM Code Status History Code Status Date Activated Date Inactivated Comments Full Code 06/05/2011 4:23 AM 06/09/2011 2:48 PM Date Activated Date Inactivated Comments 09/05/2016 8:43 PM 09/08/2016 4:31 PM Latest Code Status on File Code Status Date Activated Date Inactivated Comments Full Code 09/05/2016 8:43 PM 09/08/2016 4:31 PM Reason for Referral Specialty Diagnoses / Procedures Referred By Stephany flower Referred To Contact Neuroradiology Diagnoses Cognitive changes Late effect of brain injury (HCC) Jovita Virk MD [address], [place] Referral ID Status Reason Start Date Expiration Date Visits Requested Visits Authorized [id number] Authorized Patient Preference 2 07/20/2023 3 3 Comments Brain MRI without contrast. H/o TBI 2010. Continues to struggle with cognitive deficits, fatigue, impaired balance, unimproved. Please evaluate for other structural causes of these issues. Fax report to me at [phone]. Specialty Diagnoses / Procedures Referred By Contac t Referred To Contact Speech Pathology Diagnoses Cognitive changes Late effect of brain injury (HCC) Jovita Virk MD [address] [place] [address] [place] [address] Referral ID Status Reason Start Date Expiration Date Visits Requested Visits Authorized [id number] Pending Review Consultatio n-[facility] 2 07/20/2023 10 10 Question [...] kidney disease) stage 2, GFR 60-89 ml/min [id number] NANCY (obstructive sleep apnea) Renal cyst Additional Source Comments Reason for Visit (unrecogniz ed section and content) Reason Comments Refill Reason Comments Monitoring/follow-up Reason Comments back issue Reason Comments Sleep Apnea Reason Comments Follow-up thyroid Reason Comments Follow-up Right knee pain - wa nts injection - last seen 06/11/24 Reason Comments Follow-up Right knee pain - wa nts injection - last seen 05/24/23 Reason Comments Follow-up Right knee pain - wa nts injection - last seen 11/02/23 Care Teams (unrecognized sec tion and content) Technical Customer Support Specialist Relationship Specialty Start Date End Date Jovita Virk MD [address], [place] Physician Physical Medicine & Rehab/PM&R 06/30/20 Technical Customer Support Specialist Relationship Specialty Start Date End Date Jovita Virk MD [address], [place] Physician Physical Medicine & Rehab/PM&R 06/30/20 Technical Customer Support Specialist Relationship Specialty Start Date End Date Jovita Virk MD [address], [place] Physician Physical Medicine & Rehab/PM&R 06/30/20 Technical Customer Support Specialist Relationship Specialty Start Date End Date Ilda Peck MD PCP - General Family Medicine 12/04/17 Team Status: Active Member Role Status Timo Peck MD Primary Care Provider Active Team Status: Inactive Member Role Status Dates Ilda Peck MD Primary Care Provider Active Start: April 05, 2024 End: April 05, 2024 Tracy Griffin MD Attending Provider Active St art: April 05, 2024 End: April 05, 2024 Team Status: Active Member Role Status Timo Peck MD Primary Care Provider Active Start: June 03, 2024 Sandoval Knight MD Attending Provider Active Start : June 03, 2024 Team Status: Inactive Member Role Status Timo Peck MD Primary Care Provider Active Start: June 06, 2024 End: June 06, 2024 Sandoval Knight MD Attending Provider Active Start : June 06, 2024 End: June 06, 2024 Technical Customer Support Specialist Relationship Specialty Start Date End Date Ilda Peck MD [address] [place] [facility] [place] [address] PCP - General Family Medicine 05/13/24 Technical Customer Support Specialist Relationship Specialty Start Date End Date Ilda Peck MD [address] [place] [address] PCP - General Family Medicine 05/13/24 Technical Customer Support Specialist Relationship Specialty Start Date End Date Ilda Peck MD [address] [place] [address] PCP - General Family Medicine 05/13/24 Technical Customer Support Specialist Relationship Specialty Start Date End Date Ilda Peck MD [address] [facility] [place] [address] PCP - General Family Medicine 05/13/24 Technical Customer Support Specialist Relationship Specialty Start Date End Date Ilda Peck MD PCP - General 07/05/16 Technical Customer Support Specialist Relationship Specialty Start Date End Date Ilda Peck MD [address] [place] [address] PCP - General 07/05/16 Technical Customer Support Specialist Relationship Specialty Start Date End Date Ilda Peck MD PCP - General 07/05/16 (unrecognized sect ion and content) No Status Records FoundNo Status Records FoundNo Status Records FoundNo Status Records FoundNo Status Records FoundNo Status Records FoundNo Status Records FoundNo Status Records Found INFORMATION SOURCE (unrecogn ized section and content) DATE CREATED AUTHOR 01/27/2023 [facility] DATE CREATED AUTHOR AUTHOR'S ORGANIZ ATION 04/27/2023 [facility] DATE CREATED AUTHOR AUTHOR'S ORGANIZ ATION 09/23/2023 [facility] DATE CREATED AUTHOR AUTHOR'S ORGANIZ ATION 04/12/2024 [facility] DATE CREATED AUTHOR AUTHOR'S ORGANIZ ATION 07/18/2024 [facility] DATE CREATED AUTHOR AUTHOR'S ORGANIZ ATION 07/19/2024 [facility] dical [facility] DATE CREATED AUTHOR AUTHOR'S ORGANIZ ATION 10/11/2024 [facility] DATE CREATED AUTHOR AUTHOR'S ORGANIZ ATION 10/23/2024 [facility] Source Comments (unrecognize d section and content) In the event this informatio n is protected by the Federal Confidentiality of Alcohol and Drug Abuse Patient Records regulations: The Federal rules restrict any use of the information to criminally investigate or prosecute any alcohol or drug abuse patient.[facility] Goals (unrecognized section and content) Goals [...] BE BASED ON THE PRIMARY CLINICAL RECORDS. [employer] provides no warranty or guarantee of the accuracy or completeness of information in this document.
[2024-11-20 11:51] LABS: Basophils Percent Auto 1.1 % (0.2-2.0); Eosinophils Absolute Auto 0.1 10^3/uL (0.0-0.7); Hematocrit 44.9 % (42.0-54.0); Hemoglobin 15.3 g/dL (14.0-18.0); Immature Granulocytes Abs Auto 0.01 10^3/uL (0.00-0.03); Immature Granulocytes Pct Auto 0.3 % (0.0-0.5); Lymphocytes Absolute Auto 0.9 10^3/uL (1.2-3.8); Lymphocytes Percent Auto 25.6 % (20.5-60.0); Mean Corpuscular HGB Conc 34.1 g/dL (29.9-35.2); Mean Corpuscular Hemoglobin 29.9 pg (25.9-34.0); Mean Corpuscular Volume 87.9 fL (80.0-94.0); Mean Platelet Volume 9.1 fL (9.5-13.5); Monocytes Absolute Auto 0.3 10^3/uL (0.3-0.8); Monocytes Percent Auto 8.8 % (1.7-12.0); Neutrophils Absolute Auto 2.2 10^3/uL (1.4-6.5); Neutrophils Percent Auto 62.2 % (43.0-75.0); Platelet Count 130 10^3/uL (150-450); Red Blood Count 5.11 10^6/uL (4.70-6.10); Red Cell Distribution Width 13.4 % (11.0-15.0); White Blood Count 3.5 10^3/uL (4.0-11.0)
[2024-11-20 12:29] LABS: Anion Gap 11.3; BUN Creatinine Ratio 21.1; Calcium 9.4 mg/dL (8.5-10.1); Carbon Dioxide 29.4 mmol/L (21.0-32.0); Chloride 103 mmol/L (98-107); Estimated GFR (African America >60 (>=60 mL/min/1.73m^2); Estimated GFR (Non-African Ame >60 (>=60 mL/min/1.73m^2); Glucose 78 mg/dL (74-106); Potassium 4.7 mmol/L (3.5-5.1); Sodium 139 mmol/L (136-145)
== END 2024-11-20 11:27 | disposition home or self-care (01) ==
LOC: LAB 11:27
PROVIDERS: PCP Family Medicine; Visit Provider Family Medicine
DX: D72.819 Decreased white blood cell count, unspecified (principal); I10 Essential (primary) hypertension
CPT/HCPCS: 36415; 80048; 85025

== ENCOUNTER 2024-12-24 09:52 | Outpatient (RCR) | payer BC, MEDICARE, SELFPAY ==
[2024-12-24 10:18] LABS: Basophils Percent Auto 1.1 % (0.2-2.0); Eosinophils Absolute Auto 0.1 10^3/uL (0.0-0.7); Hematocrit 44.9 % (42.0-54.0); Hemoglobin 15.7 g/dL (14.0-18.0); Immature Granulocytes Abs Auto 0.01 10^3/uL (0.00-0.03); Immature Granulocytes Pct Auto 0.3 % (0.0-0.5); Lymphocytes Percent Auto 27.5 % (20.5-60.0); Mean Corpuscular Hemoglobin 30.7 pg (25.9-34.0); Mean Corpuscular Volume 87.7 fL (80.0-94.0); Mean Platelet Volume 9.6 fL (9.5-13.5); Monocytes Absolute Auto 0.3 10^3/uL (0.3-0.8); Monocytes Percent Auto 9.5 % (1.7-12.0); Neutrophils Absolute Auto 2.1 10^3/uL (1.4-6.5); Neutrophils Percent Auto 59.6 % (43.0-75.0); Platelet Count 119 10^3/uL (150-450); Red Blood Count 5.12 10^6/uL (4.70-6.10); Red Cell Distribution Width 13.4 % (11.0-15.0); White Blood Count 3.6 10^3/uL (4.0-11.0)
[2024-12-24 10:41] LABS: Anion Gap 12.1; BUN Creatinine Ratio 20.5; Calcium 9.2 mg/dL (8.5-10.1); Carbon Dioxide 29.5 mmol/L (21.0-32.0); Chloride 105 mmol/L (98-107); Estimated GFR (African America >60 (>=60 mL/min/1.73m^2); Estimated GFR (Non-African Ame 60 (>=60 mL/min/1.73m^2); Glucose 90 mg/dL (74-106); Potassium 4.6 mmol/L (3.5-5.1); Sodium 142 mmol/L (136-145)
== END 2025-01-22 09:56 | disposition home or self-care (01) ==
LOC: LAB 09:52
PROVIDERS: PCP Family Medicine; Visit Provider Family Medicine
DX: I10 Essential (primary) hypertension (principal); D72.819 Decreased white blood cell count, unspecified
CPT/HCPCS: 36415; 80048; 85025

== ENCOUNTER 2025-01-17 13:09 | Outpatient (OUT) | payer BC, MEDICARE, SELFPAY ==
[2025-01-17 13:32] LABS: Basophils Percent Auto 0.8 % (0.2-2.0); Eosinophils Absolute Auto 0.1 10^3/uL (0.0-0.7); Hemoglobin 14.7 g/dL (14.0-18.0); Lymphocytes Absolute Auto 0.8 10^3/uL (1.2-3.8); Lymphocytes Percent Auto 20.3 % (20.5-60.0); Mean Corpuscular Hemoglobin 30.6 pg (25.9-34.0); Mean Corpuscular Volume 87.3 fL (80.0-94.0); Mean Platelet Volume 9.2 fL (9.5-13.5); Monocytes Absolute Auto 0.4 10^3/uL (0.3-0.8); Monocytes Percent Auto 10.9 % (1.7-12.0); Neutrophils Absolute Auto 2.6 10^3/uL (1.4-6.5); Platelet Count 129 10^3/uL (150-450); Red Blood Count 4.81 10^6/uL (4.70-6.10); Red Cell Distribution Width 13.8 % (11.0-15.0); White Blood Count 3.9 10^3/uL (4.0-11.0)
[2025-01-17 13:57] LABS: Alanine Aminotransferase 34 U/L (16-63); Albumin Globulin Ratio 1.4; Albumin Level 3.8 g/dL (3.4-5.0); Alkaline Phosphatase 58 U/L (46-116); Aspartate Amino Transferase 32 U/L (15-37); BUN Creatinine Ratio 20.3; Bilirubin Total 0.9 mg/dL (0.2-1.0); Carbon Dioxide 25.3 mmol/L (21.0-32.0); Chloride 103 mmol/L (98-107); Estimated GFR (African America >60 (>=60 mL/min/1.73m^2); Estimated GFR (Non-African Ame 59 (>=60 mL/min/1.73m^2); Globulin 2.7 g/dL; Glucose 80 mg/dL (74-106); Lactate Dehydrogenase 168 U/L (85-227); Potassium 4.3 mmol/L (3.5-5.1); Sodium 138 mmol/L (136-145); Total Protein 6.5 g/dL (6.4-8.2)
[2025-01-18 05:06] LABS: Immunoglobulin G, Qn 841 mg/dL (603-1613)
== END 2025-01-17 13:10 | disposition home or self-care (01) ==
LOC: LAB 13:11
PROVIDERS: PCP Family Medicine; Visit Provider Internal Medicine Hematology & Oncology
DX: D72.819 Decreased white blood cell count, unspecified (principal); D69.6 Thrombocytopenia, unspecified
CPT/HCPCS: 36415; 80053; 82784; 83615; 85025

== ENCOUNTER 2025-01-21 07:33 | Outpatient (RCR) | payer BC, MEDICARE, SELFPAY | END 2025-01-22 23:59 | disposition home or self-care (01) | LOC: HEMC 07:33 | PROVIDERS: PCP Family Medicine; Visit Provider Internal Medicine Hematology & Oncology | DX: D72.819 Decreased white blood cell count, unspecified (principal); D69.6 Thrombocytopenia, unspecified; Z87.820 Personal history of traumatic brain injury; Z80.7 Family history of other malignant neoplasms of lymphoid, hematopoietic and related tissues | CPT/HCPCS: G0463 ==

== ENCOUNTER 2025-02-12 13:17 | Outpatient (OUT) | payer BC, MEDICARE, SELFPAY ==
--- OUTSIDE RECORDS SUMMARY | 2025-01-21 07:15 | XMS_ITS ---
Author Organization The [facility] in [place] Address [address] [place] [address] Care Team Providers Care Head Of Cytogenetics Name Role Phone Nabeel Hendrickson Primary Care Provider Tracy Griffin Unavailable [phone] REASON FOR VISIT MD Encounters Encounter Location Date Provider Diagnosis [facility] On[facility] [address] [place] [address] 01/21/2025 Tracy Griffin Plan Of Treatment Next Appt Details Provider Name:Nabeel Hendrickson, 09:00:00 AM, [address] [place], [address], Provider Name:Tracy Griffin , 07/29/2025 11:30:00 AM, [address] [place], [address], Progress Notes * King ADDISONDOB: [birth year] (64 yo M)Acc No.[id number]:01/21/2025 UNLOCKED PROGRESS NOTE Progress Notes Patient: King NEWSOME Provider: Dawn Griffin M.D. :1960 A ge:64 Y S ex:Male Date:01/21/2025 Address[address] [facility] Pcp:Nabeel Hendrickson Subjective: * Chief Complaints: * 1 . MD. * Medical History: Objective: * Vitals: Assessment: Plan: * Treatment: * * Electronic signature of Jj Griffin MD, [id number] on 02/12/2025 at 01:20 PM EDT Sign off status: Pending Visit Status: V OICEMSG (Voice) * Provider: Dawn Griffin M.D. Date: 0 01/21/2025 Generated for Douglas briones/Honorio/Aidansmitting on: 0 02/12/2025 01:20 PM EDT
--- OUTSIDE RECORDS SUMMARY | 2025-02-06 05:15 | XMS_ITS ---
Author Organization [facility] in [place] Address [address] [place] [address] Care Team Providers Care News Technical Director Name Role Phone Madhavi Nabeel Primary Care Provider REASON FOR VISIT b-12 Encounters Encounter Location Date Provider Diagnosis [facility] [address] [place] [address] 02/06/2025 Nabeel Hendrickson Deficiency of vitami n B12 E53.8 Assessments Encounter Date Diagnosis (ICD Code) Assessment Notes Treatment Notes Treatment Clinical Notes Section Notes 02/06/2025 Deficiency of vitamin B12 (ICD-10 - E53.8) Plan Of Treatment Next Appt Details Provider Name:Nabeel Hendrickson, 09:00:00 AM, [address] [place], [address], Provider Name:Tracy Griffin , 07/29/2025 11:30:00 AM, [address] [place], [address], Medications Administered Medication Instructions Date of Administration Dosage Notes Cyanocobalamin 02/06/2025 1 mL Progress Notes * King ADDISONDOB: [birth year] (64 yo M)Acc No.[id number]:02/06/2025 Progress Note Patient: King NEWSOME Provider: Jay Hendrickson ([facility])MD :1960 A ge:64 Y S ex:Male Date:02/06/2025 Address:[address] [place] [address] [id number] Check In:09:05 AM ESTCheck O ut:09:20 AM EST Subjective: * Chief Complaints: * B -12 * Active Problem List E03.9 Hypothyroid Modified On:09/05/2023 Status:confirmed F90.0 ADD (attention defic it disorder) Modified On:01/25/2023 Status:confirmed G47.30 Sleep apnea Modified On:06/27/2023 Status:confirmed L30.9 Eczema Modified On:06/27/2023 Status:confirmed I67.89 Other cerebrovascula r disease Modified On:09/05/2023 Status:confirmed M54.16 Lumbar radiculopathy Modified On:06/27/2023 Status:confirmed M17.9 Osteoarthritis of ri ght knee Modified On:01/25/2023 Status:confirmed Z00.00 Well adult Modified On:01/25/2023 Status:confirmed M51.36 DDD (degenerative di sc disease), lumbar Modified On:06/27/2023 Status:confirmed D69.6 Thrombocytopenia Modified On:08/24/2023 Status:confirmed E53.8 B12 deficiency Modified On:11/28/2023 Status:confirmed R47.1 Dysarthria Modified On:01/25/2023 Status:confirmed M50.30 Degenerative cervica l disc Modified On:01/25/2023 Status:confirmed D70.9 Neutropenia Modified On:06/27/2023 Status:confirmed D72.819 Leukopenia Modified On:08/24/2023 Status:confirmed G47.33 Moderate obstructive sleep apnea Modified On:01/25/2023 Status:confirmed J45.909 AB (asthmatic bronch itis) Modified On:01/25/2023 Status:confirmed L82.1 Keratosis, seborrhei c Modified On:01/25/2023 Status:confirmed E03.9 Hypothyroidism, unsp ecified type Modified On:01/25/2023 Status:confirmed M75.40 Shoulder impingement syndrome Modified On:01/25/2023 Status:confirmed E53.8 Deficiency of vitami n B12 Modified On:12/28/2023 Status:confirmed F98.8 ADD (attention defic it disorder) Modified On:06/27/2023 Status:confirmed M17.0 Arthritis of both kn ees Modified On:06/27/2023 Status:confirmed M17.10 Osteoarthritis of kn ee, unilateral Modified On:06/27/2023 Status:confirmed M54.50 Low back pain, unspe cified Modified On:01/25/2023 Status:confirmed D22.9 Melanocytic nevi, un specified Modified On:01/25/2023 Status:confirmed I67.89 Other cerebrovascula r disease Modified On:01/25/2023 Status:confirmed I95.1 Orthostatic hypotens ion Modified On:01/25/2023 Status:confirmed R47.01 Aphasia Modified On:06/27/2023 Status:confirmed S06.326D Contusion and lacera tion of left cerebrum with loss of consciousness greater than 24 hours without return to pre-existing conscious level with patient surviving, subsequent encounter Modified On:01/25/2023 Status:confirmed I48.91 Atrial fibrillation Modified On:11/28/2023 Status:confirmed M48.00 Spinal stenosis Modified On:06/27/2023 Status:confirmed R60.9 Edema Modified On:08/24/2023 Status:confirmed M54.2 Cervicalgia Modified On:03/14/2023 Status:confirmed H61.23 Impacted cerumen, bi lateral Modified On:01/27/2023 Status:confirmed I48.91 Unspecified atrial f ibrillation Modified On:06/27/2023 Status:confirmed M25.511 Pain in right should er Modified On:03/14/2023U Status:confirmed M25.512 Pain in left shoulde r Modified On:03/14/2023 Status:confirmed R29.890 Loss of height Modified On:03/14/2023 Status:confirmed M19.011 Primary osteoarthrit is, right shoulder Modified On:03/15/2023 Status:confirmed M19.012 Primary osteoarthrit is, left shoulder Modified On:03/15/2023 Status:confirmed M51.34 Other intervertebral disc degeneration, thoracic region Modified On:03/15/2023 Status:confirmed M41.80 Other forms of scoli osis, site unspecified Modified On:03/15/2023 Status:confirmed G47.30 Sleep apnea, unspeci fied Modified On:07/20/2023 Status:confirmed 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 Modified On:08/24/2023 Status:confirmed I50.30 CHF (congestive hear t failure), NYHA class I, unspecified failure chronicity, diastolic Modified On:09/05/2023 Status:confirmed I10 Accelerated essentia l hypertension Modified On:09/05/2023 Status:confirmed M79.672 Foot pain, left Modified On:10/20/2023 Status:confirmed M79.672 Left foot pain Modified On:10/31/2023 Status:confirmed I73.00 Raynaud's syndrome w ithout gangrene Modified On:10/31/2023 Status:confirmed E55.9 Vitamin D deficiency , unspecified Modified On:12/28/2023 Status:confirmed D72.819 Decreased white bloo d cell count, unspecified Modified On:01/23/2025 Status:confirmed * Medical History: * Surgical History: * Hospitalization/Major Diagno stic Procedure: * Medications: Objective: * Vitals: Assessment: * Assessment: 1. D eficiency of vitamin B12 - E53.8 (Primary) Plan: * Treatment: * Therapeutic Injections: Cyanocobalamin : 1 mL (Route: Intramuscular) given by Leonora Jones SA on right deltoid (Deficiency of vitamin B12) * Procedure Codes: 9 6372 THERAP.INJ. OF MED. INTRAMUSCULAR OR [id number] VITAMIN B-12 < 1000 MCG * * Sign off status: Completed Visit Status: Rachel CUBA (Check Out) true * Provider: Jay Hendrickson ([facility])MD Date: 0 02/06/2025 Generated for Douglas briones/Honorio/Willitting on: 0 02/12/2025 01:19 PM EDT
--- NOTE | 2025-02-12 13:00 | CA_ITS ---
Patient Name: VIANEY DAVIS MR#: [id number] : 1960 Exam Date: 02/12/2025 Ordering Doctor: DR JOE WILLIAM M.D. ECHOCARDIOGRAM REPORT PROCEDURE: CA ECHO DOPPLER COMPLETE INDICATIONS: Mitral valve regurgitation, hypertensive heart disease, atrial fibrillation COMPARISON: None. DESCRIPTION: COMPLETE ECHOCARDIOGRAM Real-time transthoracic echocardiography with 2D, M-mode, spectral and color flow Doppler performed. QUALITY: Technical quality was good. LEFT VENTRICLE: Normal chamber size. Proximal septal hypertrophy (sigmoid septum). Normal systolic function. Estimated left ventricular ejection fraction is 65%. LV EF: Normal left ventricular ejection fraction, (>55%). DIASTOLIC: Diastolic function is indeterminate. ATRIAL SEPTUM: Visually appears intact. LEFT ATRIUM: Moderate dilatation. RIGHT ATRIUM: Moderate dilatation. RIGHT VENTRICLE: Normal chamber size. Normal right ventricular systolic function. TRICUSPID VALVE: Normal mobility and thickness. No stenosis with trivial regurgitation. No evidence of pulmonary hypertension. RVSP 28 mmHg MITRAL VALVE: Normal mobility and thickness. No evidence of mitral valve stenosis. There is no mitral annular calcification. Mild mitral regurgitation. AORTIC VALVE: Normal trileaflet appearance. No visible sclerosis. Normal leaflet mobility. No evidence of aortic valve stenosis. No aortic regurgitation. AORTIC ROOT: Normal diameter and appearance, measuring 3.3 cm. Ascending aorta is normal in size, measuring 3.1 cm. PULMONIC VALVE: Normal thickness and mobility. No stenosis. Trivial regurgitation. PERICARDIUM: No evidence of pericardial effusion. IVC: Collapses with inspirations. IVC is normal in size. PLEURA: CONCLUSION: 1. Normal left ventricular size and systolic function. Estimated LVEF is 65%. 2. Normal right ventricular size and systolic function. 3. Moderate biatrial dilatation. 4. Mild mitral regurgitation. 5. Normal right-sided pressures. Adult Echocardiography Procedure Report Left Ventricle LVEDD (3.7 - 5.6 cm): 5.23 cm LVESD (2.2 - 4.0 cm): 3.44 cm LVIVS thickness (0.6 - 1.2 cm): 1.33 cm LVPW thickness (0.5 - 1.0 cm): 1.00 cm e': 0.08 m/s E - e': 7.91 LVOT Max Gradient: 1.48 mm[Hg] LVOT Area (cm2): 0.61 m/s Peak Velocity (LVOT): 0.61 m/s Mean Velocity (LVOT): 0.38 m/s LVOT Diameter 2.75 cm Left Atrium LA Volume Index (2D A2C): 42.71 ml/m2 Left Atrium Systolic Dimension: 4.65 cm Mitral Valve MV E to A Ratio: 1.46 Mitral Valve A-Wave Peak Velocity: 0.42 m/s Mitral Valve E-Wave Peak Velocity: 0.61 m/s Right Ventricle Aorta AO Root Diam: 3.26 cm Ascending Ao Diam: 3.09 cm Aortic Valve AoV Area (Peak Tahir): 3.41 cm2, 3.41 cm2 AoV Area (VTI): 3.78 cm2, 3.78 cm2 Peak Velocity(Antegrade Flow): 1.05 m/s Peak Gradient(Antegrade Flow): 4.45 mm[Hg] Mean Velocity(Antegrade Flow): 0.75 m/s Mean Gradient(Antegrade Flow): 2.48 mm[Hg] Velocity Time Integral: 21.96 cm Tricuspid Valve Peak Velocity (Regurgitant Flow): 1.79 m/s, 2.50 m/s Pulmonic Valve Mean Gradient: 1.09 mm[Hg] Mean Velocity: 0.48 m/s Peak Velocity: 0.75 m/s, 0.75 m/s Peak Gradient: 2.27 mm[Hg], 2.27 mm[Hg] Right Atrium Right Atrium Systolic Pressure: 41.21 ml, 41.21 ml Dictated by: Los Gutierrez M.D. on 02/12/2025 at 19:21 Approved by: Los Gutierrez M.D. on 02/12/2025 at 19:25
--- OUTSIDE RECORDS SUMMARY | 2025-02-12 13:19 | XMS_ITS | Encounter Summary ---
Author Organization [facility] Address [address] [facility] [place] [address] Care Team Providers Care Block Tester Name Role Phone Ryan Hendrickson MD Primary Care Provider [phone] Encounter Details Date Type Department Care Team (Late st Contact Info) Description 06/12/2024 Orders Only [facility] [address] [place] [phone] Román Dawson MD [address] [place] [address] Social History Tobacco Use Types Packs/Day Years Used Date Smoking Tobacco: Never Sex and Gender Information Value Date Recorded Sex Assigned at Not on file Legal Sex Male 7:03 PM EDT Gender Identity Not on file Sexual Orientation Not on file documented as of this encounter Plan of Treatment Upcoming Encounters Date Type Department Care Team (Late st Contact Info) Description 06/11/2025 10:30 AM EDT Office Visit [facility] [address] [place] [phone] Román Dawson MD [address] [place] [address] 07/15/2025 3:00 PM EDT Office Visit [facility] [place] [address] [place] [phone] Lois Goode DO [address] [place] [id number] documented as of this encounter Procedures Procedure Name Priority Date/Time Associated Diagnosis Comments MISC TEST (ROY INTERFACE TESTING ONLY) Routine 06/12/2024 11:04 AM EDT T3, FREE Routine 06/03/2024 9:17 AM EDT TSH Routine 06/03/2024 9:17 AM EDT T4, FREE Routine 06/03/2024 9:17 AM EDT documented in this encounter Results * MISC TEST (ROY INTERFACE TESTING ONLY) (06/12/2024 11:04 AM EDT) us Román Dawson MD LAB BLOOD ORDERABLES Final Re sult * T3, free (06/03/2024 9:17 AM EDT) Blood Venous blood specimen / Unknown us Román Dawson MD LAB BLOOD ORDERABLES Final Re sult * T4, free (06/03/2024 9:17 AM EDT) Blood Venous blood specimen / Unknown us Román Dawson MD LAB BLOOD ORDERABLES Final Re sult * TSH (06/03/2024 9:17 AM EDT) Blood Venous blood specimen / Unknown us Román Dawson MD LAB BLOOD ORDERABLES Final Re sult documented in this encounter Visit Diagnoses Not on filedocumented in this encounter Care Teams Block Tester Relationship Specialty Start Date End Date Ryan Hendrickson MD PCP - General Family Medicine 05/13/24 documented as of this encounter
--- OUTSIDE RECORDS SUMMARY | 2025-02-12 13:19 | XMS_ITS | Clinical Summary ---
Author Organization [facility] Address [address] [place] [address] Care Team Providers Care Physician Support Coordinator Name Role Phone Ryan Hendrickson MD Primary Care Provider [phone] Allergies No known active allergies Medications ibuprofen (ADVIL) 200 mg tablet Take 800 mg by mouth twice daily. Active levothyroxine (SYNTHROID) 150 mcg tablet Take 150 mcg by mouth once daily. 09/30/19 18 Active tamsulosin ER (FLOMAX) 0.4 mg cp24 0.4 mg once daily. 10/28/19 18 Active liothyronine (CYTOMEL) 25 mcg tablet Take 25 mcg by mouth once daily. Active omega-3 fatty acids (FISH OIL CONCENTRATE) 1,000 mg cap Take 2 g by mouth twice daily. Active amantadine HCl (SYMMETREL) 100 mg capsule Take 100 mg by mouth once daily. 10 12/26/19 18 Active testosterone cypionate (DEPO-TESTOSTE OSMAN) 200 mg/mL injection INJECT 1ML INTRAMUSCULARLY EVERY MONTH 1 12/11/19 19 Active Ascorbic Acid (VITAMIN C) 100 mg tablet Daily, Refills(s) 0 05/07/20 19 Active omega-3s/dha/e pa/fish oil/D3 (VITAMIN-D + OMEGA-3 ORAL) Take by mouth. 08/31/20 21 Active [place] Aspartate 20 mg cap Take 1 capsule by mouth once daily. Active Vit Q1-X5-Q7-B5-B6 798-9-577-2-2 mg/mL soln Refill(s) 0 05/07/20 19 Active Active Problems Problem Noted Date Diagnosed Date B12 deficiency 12/21/2017 Absolute anemia 12/06/2017 Thrombocytopenia 12/04/2017 Viral warts, unspecified 04/28/2005 Vitiligo 02/25/2005 Asthmatic bronchitis Sleep apnea A-fib Arthritis of both knees Lower back pain Orthostatic hypotension Vertigo CVA (cerebral vascular accident) Overview (11/30/2017): due to head trauma Dysarthria ADD (attention deficit disorder) Aphasia Eczema Cervical disc disease Hypothyroidism Spinal stenosis Immunizations Immunization Administration Dates Next Due diphtheria tetanus pertussis (DTP) vaccine 09/04 influenza (IIV4) vaccine, ag e 6 mo - 64 yr, quadrivalent, PF (AFLURIA, FLUARIX, FLULAVAL, FLUZONE) 08/10/2021,06/30/2020 influenza (ccIIV4) vaccine, age 6+ mo, quadrivalent, PF (FLUCELVAX) 07/25/2022 zoster (RZV) vaccine, recombinant (SHINGRIX) 01/2022,04/05/2022 Social History Tobacco Use Types Packs/Day Years Used Date Smoking Tobacco: Never Smokeless Tobacco: Never Tobacco Cessation:Counseling Given: Not Answered Alcohol Use Standard Drinks/Week Comments Yes 0 (1 standard drink = 0.6 oz pur e alcohol) social PHQ-2 Answer Date Recorded PHQ-2 score 0 01/03/2019 Area Deprivation Index Answer Date Sven rded National Score (1-100), lower number is lower ri sk 87 04/26/2023 State Score (1-10), lower number is lower risk 8 04/26/2023 Data from: https://www.neighborhoodatlas.medicine.[facility].edu/. Last address used for calculation [address] [place] [address] 04/26/2023 Sex and Gender Information Value Date Recorded Sex Assigned at Not on file Legal Sex Male 7:29 AM EST Gender Identity Not on file Sexual Orientation Not on file Last Filed Vital Signs Vital Sign Reading Time Taken Comments Blood Pressure 147/94 04/26/2023 11:15 AM EDT Pulse 74 04/26/2023 11:15 AM EDT Temperature 36.7 C (98 F) 04/26/2023 11:15 AM EDT Respiratory Rate 18 01/03/2019 2:51 PM EDT Oxygen Saturation 97% 04/26/2023 11:15 AM EDT Inhaled Oxygen Concentration - - Weight 87 kg (191 lb 11.2 oz) 04/26/2023 11:15 A M EDT Height 168.4 cm (5' 6.3 ) 04/26/2023 11:15 AM ED T Body Mass Index 30.66 04/26/2023 11:15 AM EDT Plan of Treatment Health Maintenance Due Date Last Done Comments Annual PCP Team Chronic Dise ase Visit 1977 Anxiety Screening 1977 Depression Screening 1977 HIV Screening 1977 Hepatitis C Screening [address] Colonography 02/22/2004 Cologuard (FIT-DNA) 02/22/2004 Colonoscopy 02/22/2004 Colorectal Cancer Screening 02/22/2004 Fecal Occult Blood 02/22/2004 Sigmoidoscopy 02/22/2004 Pneumococcal Vaccine: 50+ (1 of 1 - PCV) 2009 RSV Vaccine (1 - Risk 60-74 years 1-dose series) 2019 Diabetes Screening 12/04/2020 12/04/2017 Covid-19 Vaccine (5 - 2023-2 5 season) 2024 07/26/2022, 09/20/2021, 12/22/2020, Additional history exists Advance Directive Discussion 09/25/2024 Influenza Vaccine (Season Ended) 2025 07/25/2022, 08/10/2021, 06/30/2020 Prostate Cancer Screening Discussion 06/15/2027 06/15/2022, 03/07/2022 DTaP,Tdap,Td Vaccine (2 - Tdap) 09/04/2031 Shingrix Vaccine Completed 08/29/2022, 04/05/2022 Procedures Procedure Name Priority Date/Time Associated Diagnosis Comments BASIC METABOLIC PANEL Routine 12/04/2017 3:22 PM EDT Leukopenia, unspecified type Thrombocytopenia (HCC) Hypothyroidism, unspecified type from Last 3 Months or Most Recently Relevant to Health Maintenance Results * BASIC METABOLIC PNL (12/04/2017 3:22 PM EDT) Glucose 74 74 - 99 mg/dL 12/05/2017 10:35 AM [facility] Comment: The [place] Diabetes Association (ADA) provides guidance for cutoff values for fasting glucose and random glucose. The ADA defines fasting as no caloric intake for at least 8 hours. Fasting plasma glucose results between 100 to 125 mg/dL indicate increased risk for diabetes (prediabetes). Fasting plasma glucose results greater than or equal to 126 mg/dL meet the criteria for diagnosis of diabetes. In the absence of unequivocal hyperglycemia, results should be confirmed by repeat testing. In a patient with classic symptoms of hyperglycemia or hyperglycemic crisis, random plasma glucose results greater than or equal to 200 mg/dL meet the criteria for diagnosis of diabetes. Reference: Standards of Medical Care in Diabetes 2016, [place] Diabetes Association. Diabetes Care. 2016.39(Suppl 1). BUN 21 9 - 24 mg/dL 12/05/2017 10:35 AM [facility] Creatinine 1.16 0.73 - 1.22 mg/dL 12/05/2017 10:35 AM [facility] Sodium 139 136 - 144 mmol/L 12/05/2017 10:35 AM [facility] Potassium 4.6 3.7 - 5.1 mmol/L 12/05/2017 10:35 AM [facility] Chloride 101 97 - 105 mmol/L 12/05/2017 10:35 AM [facility] CO2 23 22 - 30 mmol/L 12/05/2017 10:35 AM [facility] Anion Gap 15 9 - 18 mmol/L 12/05/2017 10:35 AM [facility] Calcium 10.1 8.5 - 10.2 mg/dL 12/05/2017 10:35 AM [facility] eGFR- >60 12/05/2017 10:35 AM [facility] eGFR-All Other Races >60 . 12/05/2017 10:35 AM [facility] Comment: eGFR (Estimated GFR) Units of measure: mL/min/1.73 meters squared eGFR is derived from the reexpressed MDRD Study equation using the following parameters: serum creatinine, age, gender and race. The creatinine assay has been calibrated to be traceable to IDMS. An eGFR <60 mL/min/1.73m2 for >3 months is consistent with chronic kidney disease. Refer to KDOQI guidelines for clinical interpretation. In patients with unstable renal function, e.g. those with acute kidney injury, the eGFR may not accurately reflect actual GFR. Blood specimen (specimen) BLOOD SPECIMEN / Unknown 12/04/2017 3:22 PM EDT 12/04/2017 3:24 PM EDT us [facility] Final Result [facility] [address] [place] [address] from Last 3 Months or Most Recently Relevant to Health Maintenance Insurance BLUE ACCESS O Care Teams Physician Support Coordinator Relationship Specialty Start Date End Date Ryan Hendrickson MD PCP - General Family Medicine 12/04/17
--- OUTSIDE RECORDS SUMMARY | 2025-02-12 13:20 | XMS_ITS | Encounter Summary ---
Author Organization [facility] Address [id number] [address] [place] [address] Care Team Providers Care Fitter And Turner Name Role Phone Ryan Hendrickson MD Primary Care Provider [phone] Encounter Details Date Type Department Care Team (Latest Contact Info) Description 02/03/2025 Travel Social History Tobacco Use Types Packs/Day Years Used Date Smoking Tobacco: Never Smokeless Tobacco: Never Alcohol Use Standard Drinks/Week Comments Yes 4 (1 standard drink = 0.6 oz pur e alcohol) Childcare Answer Date Recorded Childcare Unknown 03/06/2019 Employment Answer Date Recorded Employment Unknown 03/06/2019 Purpose - Life Answer Date Recorded Purpose and direction in life Unknown Sex and Gender Information Value Date Recorded Sex Assigned at Male 08/23/2021 10:23 PM EST Legal Sex Male 11:39 AM EDT Gender Identity Male 08/23/2021 10:23 PM EST Sexual Orientation Not on file documented as of this encounter Plan of Treatment Upcoming Encounters Date Type Department Care Team (Late st Contact Info) Description 02/18/2025 10:00 AM EDT Office Visit [facility] [address] [place] [phone] [place] [address] [place] [address] documented as of this encounter Goals Goal Patient Goal Type Associated Problems Recent Progress Patient-Stated? Author Improve mobility General Yes Tiffanie Dowd, RN Note: Evaluation of progress towards goal: Maximize work with PT at discharge to strengthen L knee documented as of this encounter Visit Diagnoses Not on filedocumented in this encounter Care Teams Fitter And Turner Relationship Specialty Start Date End Date Ryan Hendrickson MD PCP - General 07/05/16 documented as of this encounter
--- OUTSIDE RECORDS SUMMARY | 2025-02-12 13:20 | XMS_ITS | Clinical Summary ---
Author Organization [facility] Healthcare Address [address] [facility] [place] [address] Care Team Providers Care Duty Engineer Name Role Phone Ryan Hendrickson MD Primary Care Provider [phone] Allergies Active Allergy Reactions Criticality Noted Date Comments Ciprofloxacin 07/17/2024 Medications apixaban (Eliquis) 5 MG tablet Take 5 mg by mouth in the morning and 5 mg before bedtime. Active ascorbic acid (Vitamin C) 1000 MG ER tablet Take 1,000 mg by mouth Daily Active liothyronine (Cytomel) 25 MCG tablet Take 25 mcg by mouth Daily Take 0.5 tabs po qd Active tamsulosin (Flomax) 0.4 MG 24 hr capsule Take 0.4 mg by mouth Daily Active cholecalciferol (Vitamin D-3) 125 MCG (5000 UT) tablet Take 5,000 Units by mouth Daily Active hydrALAZINE (Apresoline) 25 MG tablet Take 25 mg by mouth in the morning and 25 mg in the evening and 25 mg before bedtime. Active levothyroxine (Synthroid, Levoxyl) 100 MCG tabletIndicatio ns:Sarah's disease (CMS/HCC) Take 1 tablet (100 mcg) by mouth in the morning. Take before meals. 90 tablet 3 06/12/2024 Active Active Problems Problem Noted Date Diagnosed Date NANCY (obstructive sleep apnea) 07/08/2024 PLMD (periodic limb movement disorder) Hypersomnia 07/08/2024 Paroxysmal atrial fibrillation 07/08/2024 Autoimmune thyroiditis 05/29/2024 Unspecified atrial fibrillation 05/29/2024 Resolved Problems Problem Noted Date Diagnosed Date Resolved Date Hypothyroidism, unspecified 02/28/2024 02/28/2024 Family History Medical History Relation Name Comments Cancer Father Heart disease Father Lymphoma Father Smoker Father Spleen cancer Father COPD Mother Cancer Mother Alcoholism (CMS/HCC) Other COPD Other Cancer (CMS/HCC) Other Relation Name Status Comments Father Mother Other Social History Tobacco Use Types Packs/Day Years Used Date Smoking Tobacco: Never Smokeless Tobacco: Never Tobacco Cessation:Counseling Given: Not Answered Alcohol Use Standard Drinks/Week Comments Yes 0 (1 standard drink = 0.6 oz pur e alcohol) AUDIT-C Answer Date Recorded Q1: How often do you have a drink containing alc ohol? Monthly or less 07/08/2024 Q2: How many drinks containi ng alcohol do you have on a typical day when you are drinking? 1 or 2 07/08/2024 Q3: How often do you have si x or more drinks on one occasion? Weekly 07/08/2024 Sex and Gender Information Value Date Recorded Sex Assigned at Not on file Legal Sex Male 7:03 PM EDT Gender Identity Not on file Sexual Orientation Not on file Last Filed Vital Signs Vital Sign Reading Time Taken Comments Blood Pressure 134/90 07/17/2024 2:59 PM EDT Pulse 68 07/17/2024 2:59 PM EDT Temperature - - Respiratory Rate 16 06/12/2024 11:0 4 AM EDT Oxygen Saturation 98% 07/17/2024 2: 59 PM EDT Inhaled Oxygen Concentration - - Weight 85.6 kg (188 lb 12.8 oz) 07/17/2024 2:59 PM EDT Height 168.9 cm (5' 6.5 ) 07/17/2024 2:59 PM EDT Body Mass Index 30.02 07/17/2024 2:59 PM EDT Plan of Treatment Upcoming Encounters Date Type Department Care Team (Late st Contact Info) Description 06/11/2025 10:30 AM EDT Office Visit [facility] [address] [place] [phone] Román Dawson MD [address] [place] [address] 07/15/2025 3:00 PM EDT Office Visit [facility] [address] [place] [address] Lois Goode DO [address] [place] [address] Health Maintenance Due Date Last Done Comments CT Colonography 1959 FIT-DNA 1959 FIT 1959 FOBT 1959 Sigmoidoscopy 1959 Influenza Vaccine (Season Ended) 2025 08/10/2023, 07/25/2022, 08/10/2021, Additional history exists Colonoscopy 05/29/2034 05/29/2024 Colorectal Cancer Screening 05/29/2034 Pneumococcal Vaccine: 65+ Years Completed 4 Insurance [facility] MEDIC[facility] Care Teams Duty Engineer Relationship Specialty Start Date End Date Ryan Hendrickson MD PCP - General Family Medicine 8/19/24
--- OUTSIDE RECORDS SUMMARY | 2025-02-12 13:20 | XMS_ITS | Patient Health Record ---
Author Organization [facility] in [place] Address [address] [place] [address] Care Team Providers Care Transportation Sales Consultant Name Role Phone Nabeel Peck Primary Care Provider Tracy Griffin Unavailable [phone] ILDA PECK Unavailable [phone] Allergies Allergen (clinical drug ingredient) Drug/Non Drug Allergy documented on EMR Reaction Allergy Type Onset Date Status ciprofloxacin Cipro Unknown Drug Allergy Act fabien ciprofloxacin Ciprofloxacin Unknown Drug Allergy Active Results Component Value Reference Range Notes FREE T3 Reviewed date:02/26/2024 02:52:12 PM Interpretation: Performing Lab: Notes/Report: [facility] , Free T3 3.90 2.18-3.98 pg/mL Performing Lab: see note - [facility] LB TSH Reviewed date:02/26/2024 02:52:12 PM Interpretation: Performing Lab: Notes/Report: [facility] , Thyroid Stimulating Hormone 0.036 0.358-3.740 u IU/mL Performing Lab: see note - [facility] LB PERIPHERAL SMEAR Reviewed date:06/03/2024 08:50:34 PM Interpretation: Performing Lab: Notes/Report: [facility] , Peripheral Smear SEE SCANNED REPORT Performing Lab: see note - [facility] LB Immunoglobulins A/E/G/M, Ser um Reviewed date:06/03/2024 08:50:34 PM Interpretation: Performing Lab: Notes/Report: [facility] , Immunoglobulin G, Qn, Serum 733 609-5201 mg/d L Immunoglobulin A, Qn, Serum 109 61-437 mg/dL Immunoglobulin M, Qn, Serum 45 20-172 mg/dL Immunoglobulin E, Total 3 6-495 IU/mL Performed at: [facility] [address] [id number] [employer] Mechanic: Aleks Ferreira PhD, Phone: [phone] Performed at: [facility] [address] [id number] [employer] Mechanic: Nicole Calles MD, Phone: [phone] Performing Lab: see note - [facility] LB FREE T3 Reviewed date:06/03/2024 08:50:33 PM Interpretation: Performing Lab: Notes/Report: [facility] , Free T3 3.68 2.18-3.98 pg/mL Performing Lab: see note ML - [facility] LB FREE T4 Reviewed date:06/03/2024 08:50:33 PM Interpretation: Performing Lab: Notes/Report: [facility] , Free T4 0.79 0.76-1.46 ng/dL Performing Lab: see note ML - [facility] LB TSH Reviewed date:06/03/2024 08:50:34 PM Interpretation: Performing Lab: Notes/Report: [facility] , Thyroid Stimulating Hormone 0.664 0.358-3.740 u IU/mL Performing Lab: see note - [facility] LB URINE T PROTEIN CREAT RATIO Reviewed date:06/03/2024 08:50:34 PM Interpretation: Performing Lab: Notes/Report: [facility] , Total Protein Urine Random 6.9 <=11.9 mg/dL Creatinine Urine Random 107.55 20.00-300.00 mg/d L Protein Creatinine Ratio Urine 0.06 Performing Lab: see note ML - [facility] LB CBC no Diff (Hemogram) Reviewed date:06/03/2024 08:50:34 PM Interpretation: Performing Lab: Notes/Report: [facility] , White Blood Count 3.2 4.0-11.0 10 3/uL Red Blood Count 5.19 4.70-6.10 10 6/uL Hemoglobin 15.4 14.0-18.0 g/dL Hematocrit 45.4 42.0-54.0 % Mean Corpuscular Volume 87.5 80.0-94.0 fL Mean Corpuscular Hemoglobin 29.7 25.9-34.0 pg Mean Corpuscular HGB Conc 33.9 29.9-35.2 g/dL Red Cell Distribution Width 13.3 11.0-15.0 % Platelet Count 126 150-450 10 3/uL Mean Platelet Volume 9.5 9.5-13.5 fL Performing Lab: see note ML - [facility] LB PTH, Intact Reviewed date:06/04/2024 10:37:46 PM Interpretation: Performing Lab: Notes/Report: [facility] , PTH, Intact 34 15-65 pg/mL Performed at: [facility] [address] [id number] [employer] Mechanic: Aleks Ferreira PhD, Phone: [phone] Performing Lab: see note - [facility] LB CBC AUTO DIFF Reviewed date:08/15/2024 02:54:14 PM Interpretation: Performing Lab: Notes/Report: [facility] , White Blood Count 3.6 4.0-11.0 10 3/uL Red Blood Count 5.17 4.70-6.10 10 6/uL Hemoglobin 15.2 14.0-18.0 g/dL Hematocrit 45.4 42.0-54.0 % Mean Corpuscular Volume 87.8 80.0-94.0 fL Mean Corpuscular Hemoglobin 29.4 25.9-34.0 pg Mean Corpuscular HGB Conc 33.5 29.9-35.2 g/dL Red Cell Distribution Width 13.3 11.0-15.0 % Platelet Count 128 150-450 10 3/uL Mean Platelet Volume 9.5 9.5-13.5 fL Neutrophils Percent Auto 61.8 43.0-75.0 % Lymphocytes Percent Auto 22.6 20.5-60.0 % Monocytes Percent Auto 10.9 1.7-12.0 % Eosinophils Percent Auto 2.2 0.9-7.0 % Basophils Percent Auto 1.4 0.2-2.0 % Immature Granulocytes Pct Auto 1.1 0.0-0.5 % Neutrophils Absolute Auto 2.2 1.4-6.5 10 3/uL Lymphocytes Absolute Auto 0.8 1.2-3.8 10 3/uL Monocytes Absolute Auto 0.4 0.3-0.8 10 3/uL Eosinophils Absolute Auto 0.1 0.0-0.7 10 3/uL Basophils Absolute Auto 0.1 0.0-0.1 10 3/uL Immature Granulocytes Abs Auto 0.04 0.00-0.03 10 3/uL Performing Lab: see note ML - [facility] LB CBC AUTO DIFF (Not yet revie wed by provider) Interpretation: Performing Lab: Notes/Report: [facility] , White Blood Count 4.2 4.0-11.0 10 3/uL Red Blood Count 5.21 4.70-6.10 10 6/uL Hemoglobin 15.8 14.0-18.0 g/dL Hematocrit 46.1 42.0-54.0 % Mean Corpuscular Volume 88.5 80.0-94.0 fL Mean Corpuscular Hemoglobin 30.3 25.9-34.0 pg Mean Corpuscular HGB Conc 34.3 29.9-35.2 g/dL Red Cell Distribution Width 13.3 11.0-15.0 % Platelet Count 138 150-450 10 3/uL Mean Platelet Volume 9.5 9.5-13.5 fL Performing Lab: see note ML - [facility] LB LDH (Not yet reviewed by pro vider) Interpretation: Performing Lab: Notes/Report: [facility] , Lactate Dehydrogenase 208 85-227 U/L Performing Lab: see note - [facility] LB PROF 14(COMP METB) (Not yet reviewed by provider) Interpretation: Performing Lab: Notes/Report: [facility] , Sodium 141 136-145 mmol/L Potassium 4.9 3.5-5.1 mmol/L Chloride 104 98-107 mmol/L Carbon Dioxide 31.2 21.0-32.0 mmol/L Anion Gap 10.7 Glucose 93 74-106 mg/dL Blood Urea Nitrogen 30.0 7.0-18.0 mg/dL Creatinine 1.19 0.70-1.30 mg/dL Estimated GFR ( Pretty >60 >=60 mL/mi n/1.73m 2 Estimated GFR (Non- Glenny >60 >=60 mL/mi n/1.73m 2 BUN Creatinine Ratio 25.2 Calcium 9.6 8.5-10.1 mg/dL Bilirubin Total 0.5 0.2-1.0 mg/dL Aspartate Amino Transferase 29 15-37 U/L Alanine Aminotransferase 33 16-63 U/L Alkaline Phosphatase 62 46-116 U/L Total Protein 7.3 6.4-8.2 g/dL Albumin Level 4.4 3.4-5.0 g/dL Globulin 2.9 Albumin Globulin Ratio 1.5 Performing Lab: see note - [facility] Immunoglobulin G, Qn, Serum (Not yet reviewed by provider) Interpretation: Performing Lab: Notes/Report: [facility] , Immunoglobulin G, Qn 511 295-2676 mg/dL Performed at: [address] [id number] [employer] Mechanic: Aleks Ferreira PhD, Phone: [phone] Performing Lab: see note [facility] PSA Reviewed date:10/21/2024 08:25:24 PM Interpretation: Performing Lab: Notes/Report: [facility] , Prostate Specific Antigen Dx 0.74 <=4.00 ng/mL Performing Lab: see note - [facility] Testosterone Reviewed date:10/22/2024 04:45:30 PM Interpretation: Performing Lab: Notes/Report: [facility] , Testosterone 371 264-916 ng/dL Adult male reference interval is based on a population of healthy nonobese males (BMI <30) between 19 and 39 years old. Brad et.al. JCEM 2017,102;4995-5441. PMID: 54900736. Performed at: [address] [id number] [employer] Mechanic: Aleks Ferreira PhD, Phone: [phone] Performing Lab: see note [facility] LB LDH (Not yet reviewed by pro vider) Interpretation: Performing Lab: Notes/Report: [facility] , Lactate Dehydrogenase 168 85-227 U/L Performing Lab: see note [facility] LB PROF 14(COMP METB) (Not yet reviewed by provider) Interpretation: Performing Lab: Notes/Report: [facility] , Sodium 138 136-145 mmol/L Potassium 4.3 3.5-5.1 mmol/L Chloride 103 98-107 mmol/L Carbon Dioxide 25.3 21.0-32.0 mmol/L Anion Gap 14.0 Glucose 80 74-106 mg/dL Blood Urea Nitrogen 25.0 7.0-18.0 mg/dL Creatinine 1.23 0.70-1.30 mg/dL Estimated GFR ( Pretty >60 >=60 mL/mi n/1.73m 2 Estimated GFR (Non- Glenny 59 >=60 mL/mi n/1.73m 2 BUN Creatinine Ratio 20.3 Calcium 9.0 8.5-10.1 mg/dL Bilirubin Total 0.9 0.2-1.0 mg/dL Aspartate Amino Transferase 32 15-37 U/L Alanine Aminotransferase 34 16-63 U/L Alkaline Phosphatase 58 46-116 U/L Total Protein 6.5 6.4-8.2 g/dL Albumin Level 3.8 3.4-5.0 g/dL Globulin 2.7 Albumin Globulin Ratio 1.4 Performing Lab: see note ML - [facility] LB CBC AUTO DIFF Reviewed date:12/24/2024 04:34:09 PM Interpretation: Performing Lab: Notes/Report: [facility] , White Blood Count 3.6 4.0-11.0 10 3/uL Red Blood Count 5.12 4.70-6.10 10 6/uL Hemoglobin 15.7 14.0-18.0 g/dL Hematocrit 44.9 42.0-54.0 % Mean Corpuscular Volume 87.7 80.0-94.0 fL Mean Corpuscular Hemoglobin 30.7 25.9-34.0 pg Mean Corpuscular HGB Conc 35.0 29.9-35.2 g/dL Red Cell Distribution Width 13.4 11.0-15.0 % Platelet Count 119 150-450 10 3/uL Mean Platelet Volume 9.6 9.5-13.5 fL Neutrophils Percent Auto 59.6 43.0-75.0 % Lymphocytes Percent Auto 27.5 20.5-60.0 % Monocytes Percent Auto 9.5 1.7-12.0 % Eosinophils Percent Auto 2.0 0.9-7.0 % Basophils Percent Auto 1.1 0.2-2.0 % Immature Granulocytes Pct Auto 0.3 0.0-0.5 % Neutrophils Absolute Auto 2.1 1.4-6.5 10 3/uL Lymphocytes Absolute Auto 1.0 1.2-3.8 10 3/uL Monocytes Absolute Auto 0.3 0.3-0.8 10 3/uL Eosinophils Absolute Auto 0.1 0.0-0.7 10 3/uL Basophils Absolute Auto 0.0 0.0-0.1 10 3/uL Immature Granulocytes Abs Auto 0.01 0.00-0.03 10 3/uL Performing Lab: see note - [facility] LB PROF CHEM 8 (BAS METB) Reviewed date:11/20/2024 12:37:15 PM Interpretation: Performing Lab: Notes/Report: [facility] , Sodium 139 136-145 mmol/L Potassium 4.7 3.5-5.1 mmol/L Chloride 103 98-107 mmol/L Carbon Dioxide 29.4 21.0-32.0 mmol/L Anion Gap 11.3 Glucose 78 74-106 mg/dL Blood Urea Nitrogen 24.0 7.0-18.0 mg/dL Creatinine 1.14 0.70-1.30 mg/dL Estimated GFR ( Pretty >60 >=60 mL/mi n/1.73m 2 Estimated GFR (Non- Glenny >60 >=60 mL/mi n/1.73m 2 BUN Creatinine Ratio 21.1 Calcium 9.4 8.5-10.1 mg/dL Performing Lab: see note - [facility] LB CBC AUTO DIFF Reviewed date:11/20/2024 12:37:15 PM Interpretation: Performing Lab: Notes/Report: [facility] , White Blood Count 3.5 4.0-11.0 10 3/uL Red Blood Count 5.11 4.70-6.10 10 6/uL Hemoglobin 15.3 14.0-18.0 g/dL Hematocrit 44.9 42.0-54.0 % Mean Corpuscular Volume 87.9 80.0-94.0 fL Mean Corpuscular Hemoglobin 29.9 25.9-34.0 pg Mean Corpuscular HGB Conc 34.1 29.9-35.2 g/dL Red Cell Distribution Width 13.4 11.0-15.0 % Platelet Count 130 150-450 10 3/uL Mean Platelet Volume 9.1 9.5-13.5 fL Neutrophils Percent Auto 62.2 43.0-75.0 % Lymphocytes Percent Auto 25.6 20.5-60.0 % Monocytes Percent Auto 8.8 1.7-12.0 % Eosinophils Percent Auto 2.0 0.9-7.0 % Basophils Percent Auto 1.1 0.2-2.0 % Immature Granulocytes Pct Auto 0.3 0.0-0.5 % Neutrophils Absolute Auto 2.2 1.4-6.5 10 3/uL Lymphocytes Absolute Auto 0.9 1.2-3.8 10 3/uL Monocytes Absolute Auto 0.3 0.3-0.8 10 3/uL Eosinophils Absolute Auto 0.1 0.0-0.7 10 3/uL Basophils Absolute Auto 0.0 0.0-0.1 10 3/uL Immature Granulocytes Abs Auto 0.01 0.00-0.03 10 3/uL Performing Lab: see note - [facility] LB Manual Differential (Not yet reviewed by provider) Interpretation: Performing Lab: Notes/Report: [facility] , Segmented Neutrophils % Manual 72.0 43.0-75.0 Lymphocytes Percent Manual 24.0 20.5-60.0 % Monocytes Percent Manual 2.0 1.7-12.0 % Eosinophils Percent Manual 0.0 0.9-7.0 % Basophils Percent Manual 0.0 0.2-2.0 % Segmented Neut Absolute Manual 3.02 1.4-6.5 10 3/uL Lymphocytes Absolute Manual 1.00 1.20-3.80 10 3/uL Monocytes Absolute Manual 0.08 0.30-0.80 10 3/ uL Eosinophils Absolute Manual 0.00 0.00-0.70 10 3/uL Basophils Abs Manual 0.00 0.00-0.10 10 3/uL Performing Lab: see note - [facility] LB PROF CHEM 8 (BAS METB) Reviewed date:08/15/2024 02:54:14 PM Interpretation: Performing Lab: Notes/Report: [facility] , Sodium 140 136-145 mmol/L Potassium 4.1 3.5-5.1 mmol/L Chloride 104 98-107 mmol/L Carbon Dioxide 26.1 21.0-32.0 mmol/L Anion Gap 14.0 Glucose 80 74-106 mg/dL Blood Urea Nitrogen 22.0 7.0-18.0 mg/dL Creatinine 1.22 0.70-1.30 mg/dL Estimated GFR ( Pretty >60 >=60 mL/mi n/1.73m 2 Estimated GFR (Non- Glenny 60 >=60 mL/mi n/1.73m 2 BUN Creatinine Ratio 18.0 Calcium 9.4 8.5-10.1 mg/dL Performing Lab: see note ML - [facility] LB PROF CHEM 8 (BAS METB) Reviewed date:07/16/2024 04:20:11 PM Interpretation: Performing Lab: Notes/Report: [facility] , Sodium 140 136-145 mmol/L Potassium 4.2 3.5-5.1 mmol/L Chloride 103 98-107 mmol/L Carbon Dioxide 29.0 21.0-32.0 mmol/L Anion Gap 12.2 Glucose 89 74-106 mg/dL Blood Urea Nitrogen 27.0 7.0-18.0 mg/dL Creatinine 1.18 0.70-1.30 mg/dL Estimated GFR ( Pretty >60 >=60 mL/mi n/1.73m 2 Estimated GFR (Non- Glenny >60 >=60 mL/mi n/1.73m 2 BUN Creatinine Ratio 22.9 Calcium 9.5 8.5-10.1 mg/dL Performing Lab: see note ML - [facility] LB CBC AUTO DIFF Reviewed date:07/16/2024 04:20:11 PM Interpretation: Performing Lab: Notes/Report: [facility] , White Blood Count 4.2 4.0-11.0 10 3/uL Red Blood Count 5.25 4.70-6.10 10 6/uL Hemoglobin 15.4 14.0-18.0 g/dL Hematocrit 45.8 42.0-54.0 % Mean Corpuscular Volume 87.2 80.0-94.0 fL Mean Corpuscular Hemoglobin 29.3 25.9-34.0 pg Mean Corpuscular HGB Conc 33.6 29.9-35.2 g/dL Red Cell Distribution Width 13.4 11.0-15.0 % Platelet Count 128 150-450 10 3/uL Mean Platelet Volume 9.7 9.5-13.5 fL Neutrophils Percent Auto 65.3 43.0-75.0 % Lymphocytes Percent Auto 22.1 20.5-60.0 % Monocytes Percent Auto 8.4 1.7-12.0 % Eosinophils Percent Auto 2.6 0.9-7.0 % Basophils Percent Auto 1.4 0.2-2.0 % Immature Granulocytes Pct Auto 0.2 0.0-0.5 % Neutrophils Absolute Auto 2.7 1.4-6.5 10 3/uL Lymphocytes Absolute Auto 0.9 1.2-3.8 10 3/uL Monocytes Absolute Auto 0.4 0.3-0.8 10 3/uL Eosinophils Absolute Auto 0.1 0.0-0.7 10 3/uL Basophils Absolute Auto 0.1 0.0-0.1 10 3/uL Immature Granulocytes Abs Auto 0.01 0.00-0.03 10 3/uL Performing Lab: see note - [facility] LB VITAMIN D 25 [place] Reviewed date:06/03/2024 08:50:34 PM Interpretation: Performing Lab: Notes/Report: [facility] , Vitamin D 74.8 <20 ng/mL Vit D deficient 20-<30 ng/mL Vit D insufficient 30-100 ng/mL Vit D sufficient >100 ng/mL Potential Toxicity Performing Lab: see note - [facility] LB URIC ACID SERUM Reviewed date:06/03/2024 08:50:34 PM Interpretation: Performing Lab: Notes/Report: [facility] , Uric Acid 4.7 3.5-7.2 mg/dL Performing Lab: see note [facility] LB UA RANDOM W or MICROSCOPIC Reviewed date:06/03/2024 08:50:34 PM Interpretation: Performing Lab: Notes/Report: [facility] , Color Urine YELLOW YELLOW Clarity Urine CLEAR CLEAR Specific [place] Urine 1.020 1.005-1.025 pH Urine 5.5 5.0-9.0 Protein Urine NEGATIVE NEG/TRACE mg/dL Glucose Urine UA NEGATIVE NEGATIVE mg/dL Bilirubin Urine NEGATIVE NEGATIVE Ketones Urine NEGATIVE NEGATIVE mg/dL Blood Urine NEGATIVE NEGATIVE Nitrite Urine NEGATIVE NEGATIVE Urobilinogen Urine 0.2 0.2-1.0 EU/dL Leukocyte Esterase Urine NEGATIVE NEGATIVE WBC Urine NONE SEEN NONE SEEN #/HPF RBC Urine NONE SEEN 0-2 #/HPF Bacteria Urine NONE SEEN NONE SEEN #/HPF Mucus Urine NONE SEEN NONE SEEN Squamous Epithelial Cell Urine RARE NONE/RARE #/LPF Performing Lab: see note ML - [facility] LB RENAL FUNCTION PANEL Reviewed date:06/03/2024 08:50:33 PM Interpretation: Performing Lab: Notes/Report: [facility] , Sodium 138 136-145 mmol/L Potassium 3.9 3.5-5.1 mmol/L Chloride 101 98-107 mmol/L Carbon Dioxide 31.2 21.0-32.0 mmol/L Anion Gap 9.7 Glucose 91 74-106 mg/dL Blood Urea Nitrogen 18.0 7.0-18.0 mg/dL Creatinine 1.06 0.70-1.30 mg/dL Estimated GFR ( Pretty >60 >=60 Estimated GFR (Non- Glenny >60 >=60 BUN Creatinine Ratio 17.0 Calcium 8.9 8.5-10.1 mg/dL Phosphorus 2.9 2.6-4.7 mg/dL Albumin Level 3.8 3.4-5.0 g/dL Performing Lab: see note ML - [facility] LB MAGNESIUM Reviewed date:06/03/2024 08:50:33 PM Interpretation: Performing Lab: Notes/Report: [facility] , Magnesium 1.9 1.8-2.4 mg/dL Performing Lab: see note ML - [facility] LB PROF 14(COMP METB) Reviewed date:06/03/2024 08:50:34 PM Interpretation: Performing Lab: Notes/Report: [facility] , Sodium 138 136-145 mmol/L Potassium 4.2 3.5-5.1 mmol/L Chloride 102 98-107 mmol/L Carbon Dioxide 27.9 21.0-32.0 mmol/L Anion Gap 12.3 Glucose 85 74-106 mg/dL Blood Urea Nitrogen 21.0 7.0-18.0 mg/dL Creatinine 1.11 0.70-1.30 mg/dL Estimated GFR ( Pretty >60 >=60 Estimated GFR (Non- Glenny >60 >=60 BUN Creatinine Ratio 18.9 Calcium 9.0 8.5-10.1 mg/dL Bilirubin Total 0.7 0.2-1.0 mg/dL Aspartate Amino Transferase 19 15-37 U/L Alanine Aminotransferase 26 16-63 U/L Alkaline Phosphatase 67 46-116 U/L Total Protein 6.8 6.4-8.2 g/dL Albumin Level 3.8 3.4-5.0 g/dL Globulin 3.0 Albumin Globulin Ratio 1.3 Performing Lab: see note ML - [facility] LB LDH Reviewed date:06/03/2024 08:50:34 PM Interpretation: Performing Lab: Notes/Report: [facility] , Lactate Dehydrogenase 208 85-227 U/L Performing Lab: see note ML - [facility] LB CBC AUTO DIFF Reviewed date:06/03/2024 08:50:34 PM Interpretation: Performing Lab: Notes/Report: [facility] , White Blood Count 3.6 4.0-11.0 10 3/uL Red Blood Count 5.15 4.70-6.10 10 6/uL Hemoglobin 15.3 14.0-18.0 g/dL Hematocrit 45.2 42.0-54.0 % Mean Corpuscular Volume 87.8 80.0-94.0 fL Mean Corpuscular Hemoglobin 29.7 25.9-34.0 pg Mean Corpuscular HGB Conc 33.8 29.9-35.2 g/dL Red Cell Distribution Width 13.3 11.0-15.0 % Platelet Count 141 150-450 10 3/uL Mean Platelet Volume 9.8 9.5-13.5 fL Neutrophils Percent Auto 60.4 43.0-75.0 % Lymphocytes Percent Auto 26.2 20.5-60.0 % Monocytes Percent Auto 10.3 1.7-12.0 % Eosinophils Percent Auto 1.7 0.9-7.0 % Basophils Percent Auto 1.1 0.2-2.0 % Immature Granulocytes Pct Auto 0.3 0.0-0.5 % Neutrophils Absolute Auto 2.2 1.4-6.5 10 3/uL Lymphocytes Absolute Auto 0.9 1.2-3.8 10 3/uL Monocytes Absolute Auto 0.4 0.3-0.8 10 3/uL Eosinophils Absolute Auto 0.1 0.0-0.7 10 3/uL Basophils Absolute Auto 0.0 0.0-0.1 10 3/uL Immature Granulocytes Abs Auto 0.01 0.00-0.03 10 3/uL Performing Lab: see note ML - [facility] LB THYROID ANTIBODIES Reviewed date:02/27/2024 08:44:40 PM Interpretation: Performing Lab: Notes/Report: [facility] , Thyroid Peroxidase (TPO) Ab 544 0-34 IU/mL Thyroglobulin Antibody 14.2 0.0-0.9 IU/mL Thyroglobulin Antibody measured by Norm José Miguel Methodology It should be noted that the presence of thyroglobulin antibodies may not be pathogenic nor diagnostic, especially at very low levels. The assay third helper has found that four percent of individuals without evidence of thyroid disease or autoimmunity will have positive TgAb levels up to 4 IU/mL. Performed at: [address] [id number] [employer] Mechanic: Aleks Ferreira PhD, Phone: [phone] Performing Lab: see note - [facility] LB PROF CHEM 8 (BAS METB) Reviewed date:02/26/2024 02:52:12 PM Interpretation: Performing Lab: Notes/Report: [facility] , Sodium 139 136-145 mmol/L Potassium 4.2 3.5-5.1 mmol/L Chloride 102 98-107 mmol/L Carbon Dioxide 28.7 21.0-32.0 mmol/L Anion Gap 12.5 Glucose 83 74-106 mg/dL Blood Urea Nitrogen 21.0 7.0-18.0 mg/dL Creatinine 1.14 0.70-1.30 mg/dL Estimated GFR ( Pretty >60 >=60 Estimated GFR (Non- Glenny >60 >=60 BUN Creatinine Ratio 18.4 Calcium 9.2 8.5-10.1 mg/dL Performing Lab: see note ML - [facility] LB FREE T4 Reviewed date:02/26/2024 09:28:56 PM Interpretation: Performing Lab: Notes/Report: [facility] , Free T4 1.32 0.76-1.46 ng/dL Performing Lab: see note ML - [facility] LB CBC AUTO DIFF Reviewed date:02/26/2024 02:52:12 PM Interpretation: Performing Lab: Notes/Report: [facility] , White Blood Count 2.9 4.0-11.0 10 3/uL Red Blood Count 5.00 4.70-6.10 10 6/uL Hemoglobin 15.0 14.0-18.0 g/dL Hematocrit 43.6 42.0-54.0 % Mean Corpuscular Volume 87.2 80.0-94.0 fL Mean Corpuscular Hemoglobin 30.0 25.9-34.0 pg Mean Corpuscular HGB Conc 34.4 29.9-35.2 g/dL Red Cell Distribution Width 13.4 11.0-15.0 % Platelet Count 123 150-450 10 3/uL Mean Platelet Volume 9.7 9.5-13.5 fL Neutrophils Percent Auto 64.3 43.0-75.0 % Lymphocytes Percent Auto 23.3 20.5-60.0 % Monocytes Percent Auto 8.3 1.7-12.0 % Eosinophils Percent Auto 3.1 0.9-7.0 % Basophils Percent Auto 1.0 0.2-2.0 % Immature Granulocytes Pct Auto 0.0 0.0-0.5 % Neutrophils Absolute Auto 1.9 1.4-6.5 10 3/uL Lymphocytes Absolute Auto 0.7 1.2-3.8 10 3/uL Monocytes Absolute Auto 0.2 0.3-0.8 10 3/uL Eosinophils Absolute Auto 0.1 0.0-0.7 10 3/uL Basophils Absolute Auto 0.0 0.0-0.1 10 3/uL Immature Granulocytes Abs Auto 0.00 0.00-0.03 10 3/uL Performing Lab: see note ML - [facility] LB Immunoglobulin G, Qn, Serum (Not yet reviewed by provider) Interpretation: Performing Lab: Notes/Report: [facility] , Immunoglobulin G, Qn [phone] mg/dL Performed at: - [facility] [address] [id number] [employer] Mechanic: Aleks Ferreira PhD, Phone: [phone] Performing Lab: see note - [facility] LB CBC AUTO DIFF (Not yet revie wed by provider) Interpretation: Performing Lab: Notes/Report: [facility] , White Blood Count 3.9 4.0-11.0 10 3/uL Red Blood Count 4.81 4.70-6.10 10 6/uL Hemoglobin 14.7 14.0-18.0 g/dL Hematocrit 42.0 42.0-54.0 % Mean Corpuscular Volume 87.3 80.0-94.0 fL Mean Corpuscular Hemoglobin 30.6 25.9-34.0 pg Mean Corpuscular HGB Conc 35.0 29.9-35.2 g/dL Red Cell Distribution Width 13.8 11.0-15.0 % Platelet Count 129 150-450 10 3/uL Mean Platelet Volume 9.2 9.5-13.5 fL Neutrophils Percent Auto 66.0 43.0-75.0 % Lymphocytes Percent Auto 20.3 20.5-60.0 % Monocytes Percent Auto 10.9 1.7-12.0 % Eosinophils Percent Auto 2.0 0.9-7.0 % Basophils Percent Auto 0.8 0.2-2.0 % Immature Granulocytes Pct Auto 0.0 0.0-0.5 % Neutrophils Absolute Auto 2.6 1.4-6.5 10 3/uL Lymphocytes Absolute Auto 0.8 1.2-3.8 10 3/uL Monocytes Absolute Auto 0.4 0.3-0.8 10 3/uL Eosinophils Absolute Auto 0.1 0.0-0.7 10 3/uL Basophils Absolute Auto 0.0 0.0-0.1 10 3/uL Immature Granulocytes Abs Auto 0.00 0.00-0.03 10 3/uL Performing Lab: see note ML - [facility] LB PROF CHEM 8 (BAS METB) Reviewed date:12/24/2024 04:34:09 PM Interpretation: Performing Lab: Notes/Report: [facility] , Sodium 142 136-145 mmol/L Potassium 4.6 3.5-5.1 mmol/L Chloride 105 98-107 mmol/L Carbon Dioxide 29.5 21.0-32.0 mmol/L Anion Gap 12.1 Glucose 90 74-106 mg/dL Blood Urea Nitrogen 25.0 7.0-18.0 mg/dL Creatinine 1.22 0.70-1.30 mg/dL Estimated GFR ( Pretty >60 >=60 mL/mi n/1.73m 2 Estimated GFR (Non- [place] 60 >=60 mL/mi n/1.73m 2 BUN Creatinine Ratio 20.5 Calcium 9.2 8.5-10.1 mg/dL Performing Lab: see note ML - [facility] Reason For Referral Diagnosis 1 Screening for colon cancer (Z12.11) [facility] Referring Provider First Name Nabeel Referring Provider Last Name Madhavi Referring Provider Speciality [facility] amelie Referred Provider Ryan Yang Referred Provider Specialty General Surg christie Referral Priority Routine Diagnosis 1 Foreign body (FB) in soft tissue (M79.5) [facility] Referring Provider First Name Nabeel Referring Provider Last Name Madhavi [facility] Referred Provider Ryan Yang Referred Provider Specialty General Surg christie Referral Priority Routine Medications Medication SIG (Take, Route, Frequency, Duration) Notes Start Date End Date Status Eliquis 5 MG TAKE 1 TABLET BY KIM TH TWICE A DAY FOR 30 DAYS for 90 Active Liothyronine Sodium 25 MCG TAKE 1/2 TABL ET BY MOUTH EVERY DAY for 90 days Active Coreg 6.25 MG 1 tablet with food Orally Twice a day Active Cefdinir 300 MG 2 capsule Orally onc e a day for 10 days 10/07/2024 Active Doxycycline Monohydrate 100 MG 1 capsule Orally bid for 10 days 10/09/2024 Active Tamsulosin HCl 0.4 MG 1 capsule Orally O nce a day for 30 days Active Levothyroxine Sodium 150 MCG 1 tablet in the morning on an empty stomach Orally Once a day for 90 days Active Social History Tobacco Use: Social History Observation Description Date Details (start date - stop date) Never Smoker NA - NA Tobacco Use/Smoking Question Answer Notes Patient is a nonsmoker Patient is a nonsmoker Alcohol Screen (Audit-C) Question Answer Notes Did you have a drink contain ing alcohol in the past year? Yes Did you have a drink contain ing alcohol in the past year? Yes How often did you have 6 or more drinks on one occasion in the past year? Never (0 point) How many drinks did you have on a typical day when you were drinking in the past year? 1 or 2 drinks (0 point) How many drinks did you have on a typical day when you were drinking in the past year? 3 or 4 drinks (1 point) How often did you have a dri nk containing alcohol in the past year? Weekly (3 points) How often did you have a dri nk containing alcohol in the past year? Weekly (3 points) Points 3 Points 4 Interpretation Negative Interpretation Positive Problems Problem Type SNOMED Code ICD Code Onset Dates Problem Status W/U Status Risk Notes Problem 346440932734218 Primary osteoarthritis, right shoulder (M19.011) Active confirmed Problem Eruptive melanocytic nevi (937853861) Melanocytic nevi, unspecified (D22.9) Active confirmed Problem Leukopenia (08552457) Decreased white blood cell count, unspecified (D72.819) Active confirmed Problem 21569700 Vitamin D deficiency, unspecified (E55.9) Active confirmed Problem 88025460 Sleep apnea, unspecified (G47.30) Active confirmed Problem 55126232 Impacted cerumen , bilateral (H61.23) Active confirmed Problem 75599223 Unspecified atri al fibrillation (I48.91) Active confirmed Problem Cerebrovascular disease (34796476) Other cerebrovascular disease (I67.89) Active confirmed Problem 088585882 Raynaud's syndro me without gangrene (I73.00) Active confirmed Problem Orthostatic hypotension (60847235) Orthostatic hypotension (I95.1) Active confirmed Problem 950409173279661 Primary osteoarthritis, left shoulder (M19.012) Active confirmed Problem 42163325 Pain in right shoulder (M25.511) Active confirmed Problem 1753509336 Pain in left shoulder (M25.512) Active confirmed Problem 244484825083612 Other forms of scoliosis, site unspecified (M41.80) Active confirmed Problem 33846733 Other intervertebral disc degeneration, 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 confirmed Problem 47127481 Cervicalgia (M54.2) Active confirmed Problem 20673602 Loss of height (R29.890) Active confirmed Problem Aphasia (72530172) Aphasia (R47.01) Active conf irmed Problem Contusion and laceration of left cerebrum with loss of consciousness greater than 24 hours without return to pre-existing conscious level with patient surviving, subsequent encounter (S06.326D) Active confirmed Problem Atrial fibrillation (50201121) Atrial fibrillation (I48.91) Active confirmed Problem Spinal stenosis (67955781) Spinal stenosis (M48.00) Active confirmed Problem Edema (63025010) Edema (R60.9) Active confirmed Problem Hypothyroid (35330949) Hypothyroid (E03.9) Active confirmed Problem Attention deficit disorder (31019413) ADD (attention deficit disorder) (F90.0) Active confirmed Problem Sleep apnea (92166051) Sleep apnea (G47.30) Active confirmed Problem Eczema (82010002) Eczema (L30.9) Active confirm ed Problem Cerebrovascular disease (31866056) Other cerebrovascular disease (I67.89) Active confirmed Problem Acute combined systolic and diastolic heart failure (256324022704446) 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) Active confirmed Problem Lumbar radiculopathy (014880337) Lumbar radiculopathy (M54.16) Active confirmed Problem Pain in limb (95229137) Foot pain, left (M79.672) Active confirmed Problem Osteoarthritis of knee (913587721) Osteoarthritis of right knee (M17.9) Active confirmed Problem Well adult (460606050) Well adult (Z00.00) Active confirmed Problem Degenerative disc disease (08671864) DDD (degenerative disc disease), lumbar (M51.36) Active confirmed Problem Thrombocytopenia (347374040) Thrombocytopenia (D69.6) Active confirmed Problem Vitamin B12 deficiency (non anemic) (13396861) B12 deficiency (E53.8) Active confirmed Problem Dysarthria (1156093) Dysarthria (R47.1) Active confirmed Problem Degeneration of cervical intervertebral disc (56591584) Degenerative cervical disc (M50.30) Active confirmed Problem Neutropenia (145198838) Neutropenia (D70.9) Active confirmed Problem Pain in left foot (506796222704578) Left foot pain (M79.672) Active confirmed Problem Leukopenia (57889770) Leukopenia (D72.819) Active confirmed Problem Obstructive sleep apnea syndrome (49351224) Moderate obstructive sleep apnea (G47.33) Active confirmed Problem Asthma without status asthmaticus (68945913) AB (asthmatic bronchitis) (J45.909) Active confirmed Problem Seborrheic keratosis (43002938) Keratosis, seborrheic (L82.1) Active confirmed Problem Hypothyroidism (12698990) Hypothyroidism, unspecified type (E03.9) Active confirmed Problem Shoulder impingement syndrome (620670598) Shoulder impingement syndrome (M75.40) Active confirmed Problem Vitamin B deficiency (52411606) Deficiency of vitamin B12 (E53.8) Active confirmed Problem Accelerated essential hypertension (17355241) Accelerated essential hypertension (I10) Active confirmed Problem Attention deficit disorder (74981947) ADD (attention deficit disorder) (F98.8) Active confirmed Problem Arthritis of both knees (6584692358003208) Arthritis of both knees (M17.0) Active confirmed Problem Osteoarthritis of knee (687029777) Osteoarthritis of knee, unilateral (M17.10) Active confirmed Problem Diastolic heart failure (465362227) CHF (congestive heart failure), NYHA class I, unspecified failure chronicity, diastolic (I50.30) Active confirmed Problem Low back pain (685662811) Low back pain, unspecified (M54.50) Active confirmed Vital Signs Blood pressure diastolic 90 mm Hg 08/13/2024 Height 66.5 in 01/07/2025 Blood pressure systolic 134 mm Hg 08/13/2024 Weight 183.4 lbs 08/13/2024 BMI 29.15 kg/m2 08/13/2024 Procedures Procedure Date Ordered Date Performed Result Body Sit e Colonoscopy 05/29/2024 Normal Encounters Encounter Location Date Provider Diagnosis [address] [place] [address] 08/13/2024 Nabeel Hoy B12 deficiency E53.8 and Foreign body (FB) in soft tissue M79.5 [facility] [address] [place] [address] 02/22/2024 ILDA HOY Vitamin D deficiency , unspecified E55.9 [facility] [address] [facility] [place] [address] 03/22/2024 ILDA HOY B12 deficiency E53.8 [facility] [address] [place] [address] 04/16/2024 Nabeel Hoy B12 deficiency E53.8 [facility] [address] [place] [address] 07/15/2024 Nabeel Hoy B12 deficiency E53.8 [facility] [address] [place] [address] 09/12/2024 Nabeel Hoy B12 deficiency E53.8 [facility] [address] [place] [address] 10/08/2024 Nabeel Hoy B12 deficiency E53.8 [facility] [address] [place] [address] 11/05/2024 Nabeel Hoy Deficiency of vitami n B12 E53.8 [facility] [address] [place] [facility] [place] [address] 11/25/2024 Nabeel Hoy Deficiency of vitami n B12 E53.8 [facility] [address] [place] [facility] [place] [address] 01/07/2025 Nabeel Hoy B12 deficiency E53.8 [facility] [address] [place] [facility] [address] 02/06/2025 Nabeel Hoy Deficiency of vitami n B12 E53.8 [facility] [address] [place] [facility] [place] [address] 04/09/2024 [facility] [address] [place] [facility] [place] [place] [address] 01/21/2025 Tracy Gaby [facility] [address] [facility] [place] [address] 02/26/2024 ILDA PECK Other penitentiary (current) drug therapy Z79.899 ; Leukopenia D72.819 and Neutropenia D70.9 [facility] [address] [facility] [place] [address] 02/27/2024 ILDA PECK [facility] [address] [facility] [place] [address] 04/09/2024 Nabeel Peck [facility] [address] [place] [facility] [address] 04/09/2024 Nabeel Peck Screening for colon cancer Z12.11 [facility] [address] [place] [facility] [address] 10/04/2024 Nabeel Peck Accelerated essentia l hypertension I10 and Leukopenia D72.819 [facility] [address] [place] [facility] [place] [address] 10/07/2024 Naebel Peck [facility] [address] [place] [facility] [address] 10/09/2024 Nabeel Peck Assessments Encounter Date Diagnosis (ICD Code) Assessment Notes Treatment Notes Treatment Clinical Notes Section Notes 02/22/2024 Vitamin D deficiency, unspecified (ICD-10 - E55.9) 03/22/2024 B12 deficiency (ICD-10 - E53.8) 04/16/2024 B12 deficiency (ICD-10 - E53.8) 07/15/2024 B12 deficiency (ICD-10 - E53.8) 08/13/2024 B12 deficiency (ICD-10 - E53.8) 08/13/2024 Foreign body (FB) in soft tissue (ICD-10 - M79.5) 09/12/2024 B12 deficiency (ICD-10 - E53.8) 10/08/2024 B12 deficiency (ICD-10 - E53.8) 11/05/2024 Deficiency of vitamin B12 (ICD-10 - E53.8) 11/25/2024 Deficiency of vitamin B12 (ICD-10 - E53.8) 01/07/2025 B12 deficiency (ICD-10 - E53.8) 02/06/2025 Deficiency of vitamin B12 (ICD-10 - E53.8) 02/26/2024 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 (ICD-10 - Z79.899) 02/26/2024 Leukopenia (ICD-10 - D72.819) 04/09/2024 Screening for colon cancer (ICD-10 - Z12.11) 10/04/2024 Accelerated essential hypertension (ICD-10 - I10) 10/04/2024 Leukopenia (ICD-10 - D72.819) 02/26/2024 Neutropenia (ICD-10 - D70.9) Plan Of Treatment Pending Test Test Name Order Date CMP (COMPLETE METABOLIC PANEL) UA (URINALYSIS, COMPLETE) 07/04/2023 CBC WITH DIFF 06/26/2023 DEXA Axial Skeleton (hips, pelvis, spine )* 06/26/2023 CT Abdomen and Pelvis w/o contrast 09/07 EKG w Interp & Report - performed 2023 BMP w/GFR 01/22/2024 BMP w/GFR 02/26/2024 BMP w/GFR 10/04/2024 Sleep Study: Retitration BIPAP/CPAP 10/2022 Creatinine Clearance 07/07/2023 Cardiolyte Stress Test 06/26/2023 CBC W/AUTO DIFF 10/04/2024 CBC W/AUTO DIFF 02/26/2024 DEXA - AXIAL SKELETON (HIPS,PELVIS,SPINE ) 03/13/2023 TAYLOR Ankle Brachial Index (82628) 024 CBC AUTO DIFF 10/04/2024 CBC AUTO DIFF 01/17/2025 CBC AUTO DIFF 09/05/2023 CULTURE URINE 07/04/2023 BREE - VITAMIN D 12/28/2023 LDH 10/04/2024 LDH 01/17/2025 PROF 14(COMP METB) 01/17/2025 PROF 14(COMP METB) 10/04/2024 PROTEIN 24HR URINE 07/07/2023 TESTOSTERONE, TOTAL 10/01/2023 THYROID PROFILE WITH TSH 08/24/2023 THYROID PROFILE WITH TSH 09/05/2023 URINE MICROSCOPIC ONLY 07/04/2023 VITAMIN B12 12/28/2023 VITAMIN B12 01/22/2024 US KIDNEYS BLADDER 07/03/2023 XR CSPINE 2_3 VIEWS 03/13/2023 XR DEXA BONE DENSITY 03/03/2023 THYROID PANEL (T4/TSH/FREE T3) 3 ECHOCARDIO M/2D COMPLETE 06/26/2023 XR SHOULDER RICHARD 2V or > 03/13/2023 U24 Creatinine 07/07/2023 Manual Differential 10/04/2024 Immunoglobulin G, Qn, Serum 10/04/2024 Immunoglobulin G, Qn, Serum 01/17/2025 Next Appt Details Provider Name:Nabeel Peck, 09:00:00 AM, [address] [place], [address], Provider Name:Tracy Griffin , 07/29/2025 11:30:00 AM, [address] [place], [address], Insurance Providers Payer Name Payer Address Payer Phone Subscriber Number Group Number Insured Name Patient Relationship to Insured Coverage Start Date Coverage End Date [employer] ACC[employer] PPO PLUS LOCAL PLAN [address] [place] [address] [id number] Saira Lacey Spouse - patient is the spouse of the insured 3 [place] [address] [place] [address] [id number] King Addison Self - patient is the insured 4 Medications Administered Medication Instructions Date of Administration Dosage Notes Cyanocobalamin 01/26/2023 1 mL Cyanocobalamin 02/27/2023 1 mL Cyanocobalamin 03/29/2023 1 mL Cyanocobalamin 04/28/2023 1 mL Cyanocobalamin 05/30/2023 1 mL Cyanocobalamin 06/29/2023 1 mL Cyanocobalamin 07/31/2023 1 mL Cyanocobalamin 08/28/2023 1 mL Cyanocobalamin 09/28/2023 1 mL Cyanocobalamin 10/30/2023 1 mL Cyanocobalamin 11/28/2023 1 mL Cyanocobalamin 12/28/2023 1 mL Cyanocobalamin 01/23/2024 1 mL Cyanocobalamin 02/22/2024 1 mL Cyanocobalamin 03/22/2024 1 mL Cyanocobalamin 04/16/2024 1 mL Cyanocobalamin 07/15/2024 1 mL Cyanocobalamin 08/13/2024 1 mL Cyanocobalamin 09/12/2024 1 mL Cyanocobalamin 10/08/2024 1 mL Cyanocobalamin 11/05/2024 1 mL Cyanocobalamin 11/25/2024 1 mL Cyanocobalamin 01/07/2025 1 mL Cyanocobalamin 02/06/2025 1 mL Medical (General) History Medical History History ICD Code Lumbar radiculopathy M54.16 Neutropenia D70.9 Shoulder impingement syndrome M75.40 DDD (degenerative disc disease), lumbar M51.36 Melanocytic nevi, unspecified D22.9 Keratosis, seborrheic L82.1 Osteoarthritis of right knee M17.9 Well adult Z00.00 B12 deficiency E53.8 Leukopenia D72.819 Thrombocytopenia D69.6 AB (asthmatic bronchitis) J45.909 Moderate obstructive sleep apnea G47.33 Atrial fibrillation I48.91 Arthritis of both knees M17.0 Low back pain, unspecified M54.50 Orthostatic hypotension I95.1 Other cerebrovascular disease I67.89 Dysarthria R47.1 ADD (attention deficit disorder) F90.0 Aphasia R47.01 Contusion and laceration of left cerebrum with loss of consciousness greater than 24 hours without return to pre-existing conscious level with patient surviving, subsequent encounter S06.326D Eczema L30.9 Degenerative cervical disc M50.30 Hypothyroidism, unspecified type E03.9 Spinal stenosis M48.00 Lumbar radiculopathy undefined Neutropenia DDD (degenerative disc disease), lumbar Osteoarthritis of knee, unilateral Deficiency of vitamin B12 Leukopenia Thrombocytopenia Sleep apnea Arthritis of both knees Other cerebrovascular disease ADD (attention deficit disorder) Aphasia Spinal stenosis Hypothyroid Eczema Contusion and laceration of left cerebrum with >24 hours loss of consciousness without return to preexisting conscious level with patient surviving Surgical History Surgery Date(Month/Year) Colonoscopy 05/29/24 JAMIN 07/11/23 Right Labrum repair hernia repair neck surgery Left inguinal hernia repair Fusion Cervical Spine right shoulder left knee replacement Left knee replacement
--- OUTSIDE RECORDS SUMMARY | 2025-02-12 13:20 | XMS_ITS | Clinical Summary ---
Author Organization [facility] Address [address] [place] [address] Care Team Providers Care Surtass Analyst Name Role Phone Unavailable Primary Care Provider Unavailabl e Social History Tobacco Use Types Packs/Day Years Used Date Smoking Tobacco: Never Assessed Sex and Gender Information Value Date Recorded Sex Assigned at Not on file Legal Sex Male 5:38 PM EST Gender Identity Not on file Sexual Orientation Not on file Plan of Treatment Not on file
--- OUTSIDE RECORDS SUMMARY | 2025-02-12 13:20 | XMS_ITS | Clinical Summary ---
Author Organization [facility] Address [id number] [address] [place] [address] Care Team Providers Care Joss House Keeper Name Role Phone Ryan Hendrickson MD Primary Care Provider [phone] Allergies No known active allergies Medications amantadine (SYMMETREL) 100 mg capsule Take 1 capsule (100 mg total) by mouth daily with breakfast. Active liothyronine (CYTOMEL) 25 MCG tablet Take 1 tablet (25 mcg total) by mouth daily with breakfast. Active ascorbic acid, vitamin C, (ascorbic acid with steph hips) 500 mg tablet Take 500 mg by mouth daily. Active glucosamine-cho ndroitin 500-400 mg tablet Take 3 tablets by mouth daily. Active DOCOSAHEXANOIC ACID/EPA (FISH OIL ORAL) Take 1,200 mg by mouth daily. Active levothyroxine (SYNTHROID, LEVOTHROID) 175 MCG tablet Take 150 mcg by mouth once daily. 11 08/25/2016 Active diltiazem (CARDIZEM) 120 MG tablet Take 120 mg by mouth daily. Active tamsulosin (FLOMAX) 0.4 mg capsule,extende d release 24hr Take 1 capsule (0.4 mg total) by mouth in the morning. Active aspirin 325 mg tablet Take 1 tablet (325 mg total) by mouth in the morning. Active ELIQUIS 5 mg tablet Take 1 tablet (5 mg total) by mouth in the morning and 1 tablet (5 mg total) before bedtime. 06/27/2023 Active hydrALAZINE (APRESOLINE) 25 mg tablet Take 1 tablet (25 mg total) by mouth 3 (three) times a day. Active Active Problems Problem Noted Date Diagnosed Date Status post total left knee replacement 09/05/20 16 10/13/2016 A-fib 09/05/2016 Primary osteoarthritis of right knee 09/02/2016 Encounters Date Type Department Care Team Description 02/03/2025 Travel from Last 3 Months Family History Medical History Relation Name Comments Alcohol abuse Brother Valdo O L ynn Drug abuse Brother Valdo O L ynn Early Brother Valdo O L ynn COPD Father Bear O L ynn Cancer Father Bear O L ynn Heart disease Father Bear O L ynn Stroke Father Bear O L ynn Breast cancer Mother Joy O L ynn COPD Mother Joy O L ynn Cancer Mother Joy O L ynn Depression Mother Joy O L ynn Heart disease Mother Joy O L ynn Lung cancer Mother Joy O L ynn Anesthesia problems Neg Hx Relation Name Status Comments Brother Valdo O L ynn Father Bear O L ynn Mother Joy O L ynn Social History Tobacco Use Types Packs/Day Years Used Date Smoking Tobacco: Never Smokeless Tobacco: Never Tobacco Cessation:Counseling Given: Not Answered Alcohol Use Standard Drinks/Week Comments Yes 4 [...] PM EST Sexual Orientation Not on file Last Filed Vital Signs Vital Sign Reading Time Taken Comments Blood Pressure 125/76 12/21/2017 11:05 AM EDT Pulse 51 12/21/2017 11:05 AM EDT Temperature 36.2 C (97.2 F) 09/08/2016 12:34 PM EST Respiratory Rate 18 09/08/2016 8:15 AM EST Oxygen Saturation 99% 09/08/2016 8:15 AM EST Inhaled Oxygen Concentration - - Weight 84.4 kg (186 lb) 10/08/2024 2:40 PM EST Height 170.2 cm (5' 7 ) 10/08/2024 2:40 PM EST Body Mass Index 29.13 10/08/2024 2:40 PM EST Plan of Treatment Upcoming Encounters Date Type Department Care Team (Late st Contact Info) Description 02/18/2025 10:00 AM EDT [facility] [address] [place] [address] Alf Anthony MD [address] [place] [address], [address] [address] Health Maintenance Due Date Last Done Comments Depression Screening 1972 Adult BMI Follow Up Plan 1977 Fall Risk Screening 02/22/2024 COVID-19 Vaccine (2023-2 5 season) 2024 07/26/2022, 09/20/2021, 12/22/2020, Additional history exists Influenza Vaccine 05/26/2025 07/30/2024, , 07/25/2022, Additional history exists Adult BMI Screening 10/08/2025 10/08/2024 Tobacco Screening 10/08/2025 10/08/2024 DTaP,Tdap and Td Vaccines (2 - Tdap) 09/04/2031 09/04/2021 Zoster (Shingles) Vaccine Completed 08/29/2022, 08/2022 Goals Goal Patient Goal Type Associated Problems Recent Progress Patient-Stated? Author Improve mobility General Yes Tiffanie Dowd, RN Note: Evaluation of progress towards goal: Maximize work with PT at discharge to strengthen L knee Medical Devices Implanted Type Area Sterile Process Coordinator Device Identifier Shelf Expiration Date Model / Serial / Lot Brng Tib [id number] 0d Kn Ant - [id number] Implanted:Qty: 1 on 09/05/2016 by Alf Anthony MD at [facility] Bearing Left: Knee Biomet 08/24/2021 [id number] / / [id number] Cement Bn Palacos Radpq 40g Rpl [id number] - [id number] Implanted:Qty: 2 on 09/05/2016 by Alf Anthony MD at [facility] Cement Left: Knee Walter [employer] 04/24/2021 00-1112-1 40- / / [id number] Tib 79mm Cocr Kn I Beam - [id number] Implanted:Qty: 1 on 09/05/2016 by Alf Anthony MD at [facility] Orthopedic Implant Left: Knee Biomet 07/06/2026 [id number] / / [id number] Cmpt Fem Kn Lt 70mm Cr Cmnt - [id number] Implanted:Qty: 1 on 09/05/2016 by Alf Anthony MD at [facility] Orthopedic Implant Left: Knee Biomet 07/27/2026 [id number] / / [id number] Cmpt Ptlr Thn 34mm 3 Pg Kn Ser - [id number] Implanted:Qty: 1 on 09/05/2016 by Alf Anthony MD at [facility] Orthopedic Implant Left: Knee [employer]omet 08/25/2021 [id number] / / [id number] Insurance MEDICARE [facility] Advance Directives * Full Code (Latest Code Status on File) Date Activated Date Inactivated Comments 09/05/2016 8:43 PM 09/08/2016 4:31 PM Care Teams Joss House Keeper Relationship Specialty Start Date End Date Ryan Hendrickson MD PCP - General 07/05/16
--- OUTSIDE RECORDS SUMMARY | 2025-02-12 13:22 | XMS_ITS | CCD ---
Author Organization [facility] Care Team Providers Care Commercial Real [employer] Assistant Name Role Phone Ilda Hendrickson Primary Care [...] Unavailable Ilda Hendrickson MD Primary Care Provider [phone] ILDA HENDRICKSON Primary Care Unavailable SHAWANDA HERNANDEZ Attending Unavailable Sandoval Knight Unavailable MD Ilda Hendrickson Primary Care Provider [phone] MD Tracy Griffin Attending Provider Ilda Hendrickson Primary Care Unavailable Tracy Griffin Attending Unavailable Tracy Griffin Admitting Unavailable Ilda Hendrickson MD Primary Care Provider [phone] ROMÁN HOANG Attending Unavailable SAGE CAM Attending Unavailable Unavailable Primary Care Provider UnavailIlda Hernandez MD Primary Care Provider [phone] OSMIN ANTHONY Attending Unavaila ble HOY, ILDA M Referring Unavailable HOY, ILDA M Primary Care Unavailable FOETISOSMIN GARDINER Attending Unavaila ble HOY, ILDA M Referring Unavailable HOY, ILDA M Primary Care Unavailable FOETISCHOSMIN Attending Unavaila ble HOY, ILDA M Referring Unavailable HOY, ILDA M Primary Care Unavailable Shawanda MEJIA R Attending Unavailable Vianey MENDOZA R Attending Unavailable Vianey MENDOZA R Attending Unavailable Vianey MENDOZA Attending Unavailable Shawanda MEJIA Attending Unavailable Shawanda MEJIA Attending Unavailable Ilda Hendrickson MD Primary Care Provider [phone] JOE WILLIAM Attending Unavailable BAKARI SCOTT Attending Unavailable ELTAHAWY, EHAB Attending Unavailable Allergies Allergy Classification Reported Allergen(s) Allergy Type Date of Onset Reaction(s) Facility (6 sources) Ciprofloxacin; Translations: [ciprofloxacin] Drug Allergy 4 Patient reported problems (finding) [facility] [place] (1 source) Ciprofloxacin Drug Allergy 3 [facility] Repository (1 source) Ciprofloxacin; Translations: [Cipro] Drug Allergy [facility] Repository (1 source) No Known Medication Allergies; Translations: [No Known Medication Allergies] Propensity to adverse reactions (disorder) [facility] Repository Medications Current Medications Medication Drug [...] tab(s), Oral, BID, Refills(s) 0 Start Date: 1/22/24 Status: Ordered End: 06-12-2024 take 1 tablet [...] # 10 mL, Refills(s) 1, Pharmacy: [facility]/pharmacy #[id number], 167, cm, 10/05/21 11:32:00 [...] take 1 capsule by mouth once daily [place]-3 Fatty Acids (FISH OIL) 1000 MG CAPS [...] 02/08/2017 Active take 0.5 tablet by [facility] once daily liothyronine (Cytomel) 25 MCG tablet [...] 1 capsule by mouth once darius ly [place] Aspartate 20 mg cap Take 1 capsule by mouth once daily. 0 Active Comment on above: Take 1 capsule by mo [facility] once daily. memantine hydrochloride 5 mg oral tablet (5 sources) A-exxzud-B-aspartat e Receptor Antagonist Start: 2 End: 2 [...] # 90 cap(s), Refills(s) 3, Pharmacy: [facility]/pharmacy #[id number], 170, cm, 10/21/24 11:01:00 EST, Height/Length Dosing, 84, kg, 10/21/24 11:01:00 EST, Weight Dosing Start Date: 10/21/24 Status: Ordered Start: 11-24-2021 End: 11-19-2022 take 1 capsule by mouth twice daily Flomax 0.4 mg Cap 0.4 mg = 1 cap(s), Oral, BID, X 90 day(s), # 180 cap(s), Refills(s) 3, Pharmacy: [facility]/pharmacy #[id number], 167, cm, 10/05/21 11:32:00 EST, Height/Length Dosing, 83, kg, 10/05/21 11:32:00 EST, Weight Dosing Start Date: 11/24/21 Stop Date: 11/19/22 Status: Ordered Start: 02-08-2017 take 1 capsule by [facility] once daily tamsulosin 0.4 mg Cap 0.4 mg = 1 cap(s), Oral, Daily, # 90 cap(s), Refills(s) 3, Pharmacy: [facility]/pharmacy #[id number], 170, cm, 05/07/24 15:15:00 EDT, Height/Length Dosing, 83, kg, 05/07/24 15:15:00 EDT, Weight Dosing Start Date: 06/20/24 Status: Ordered take 1 capsule by [facility] every twenty-four hours in the morning tamsulosin (FLOMAX) 0.4 mg capsule,extended release 24hr Take 1 capsule (0.4 mg total) by mouth in the morning. Active Comment on above: 0.4 mg once daily. testosterone cypionate 200 mg/ml injectable solution (17 sources) Androgen Start: 05-03-2023 Depo-Testosterone 200 mg/mL intramuscular solution 300 mg, IntraMuscular, q4wk, # 10 mL, Refills(s) 1, Pharmacy: [facility]/pharmacy #[id number], 170, cm, 12/02/22 8:17:00 EST, Height/Length Dosing, 83.2, kg, 12/02/22 8:17:00 EST, Weight Dosing Start Date: 05/03/23 Status: Ordered Start: 09-07-2022 Depo-Testoster one 200 mg/mL intramuscular solution 300 mg, IntraMuscular, q4wk, # 10 mL, Refills(s) 1, Pharmacy: [facility]/pharmacy #[id number], 167, cm, 10/05/21 11:32:00 EST, Height/Length Dosing, 83, kg, 05/10/22 10:08:00 EDT, Weight Dosing Start Date: 09/07/22 Status: Ordered Start: 01-04-2022 Depo-Testoster one 200 mg/mL intramuscular solution 300 mg, IntraMuscular, q4wk, # 10 mL, Refills(s) 1, Pharmacy: [facility]/pharmacy #[id number], 167, cm, 10/05/21 11:32:00 [...] (1 source) Norepinephrine Reuptake Inhibitor End: 04-26-20 take 1 capsule by mouth once daily atomoxetine (STRATTERA) 60 mg capsule Take 60 mg by mouth once daily. 0 04/26/2023 Discontinued (Course of therapy completed) Comment on above: Take 60 mg by mouth once daily. 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] Onset: 4 Episodic Other and ill-defined cerebrovascular disease (3 sources) Cerebrovascular disease 04-29-2024 Chronic Other circulatory disease (1 source) Orthostatic hypotension; Translations: [Orthostatic hypotension] 11-30-2017 Episodic Other circulatory disease (2 sources) Personal history of other diseases of the circulatory system; Translations: [Personal history of other diseases of the circulatory system] Onset: 4 Episodic Other connective tissue disease (7 sources) History [...] [Frontal lobe and executive function deficit] Onset: 07-05-2011 Chronic Other nervous system disorders (4 sources) Cognitive deficit in communication skills; Translations: [Cognitive communication deficit] Onset: 07-05-2011 Chronic Other nervous system disorders [...] Sleep deprivation; Translations: [Sleep deprivation] 07-17-2024 Episodic Residual codes; unclassified (2 sources) Other [...] Patient encounter status 05-07-2024 Unclassified (2 sources) Puncture wound of left thumb with foreign body 08-13-2024 Unclassified (2 sources) Other persistent atrial fibrillation; [...] vocational therapy Onset: 08-24-2011 08-24-2011 Episodic Other connective tissue disease (4 sources) [...] 01-08-2019 Episodic Residual codes; unclassified (2 sources) Memory loss Onset: 06-28-2011 01-08-2019 Episodic Superficial injury; contusion (5 sources) Traumatic hematoma; Translations: [Contusion of unspecified part of head, initial encounter] Onset: 06-28-2011 06-28-2011 Episodic Viral infection (6 sources) Verruca vulgaris; Translations: [Viral wart, unspecified] Onset: 04-28-2005 05-29-2019 Episodic Results Test Name Value Interpretation Reference Range Facility Office Visiton 01-21-2025 Follow-up visit [id number] Vianey Lacey 1960 M Date Provider Department Center 01/21/2025 271-JOE WILLIAM CARD [facility] Family History Problem Relation Age of Onset Cancer Mother Diabetes Mother Coronary artery disease Father Stroke Father Cancer Father Family Status - Relation Status Age at Mother Father Sister Brother Level of Service:28659 SD OFFICE/OUTPATIENT ESTABLISHED MOD MDM 30 MIN [facility] 36on 11-21-2024 36 Patient's would like you to review his most recent labs from 11/20/2024 and see if he should start lisinopril. 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 Nitza says he never started lisinopril because they were keeping an eye on his renal function. Recent BP's have been 141/84, 136/83, 143/87, 141/83. Also, she is looking into buying an infrared sauna, but wasn't sure how you felt about PJ using it with his heart and kidney issues. Please advise. Thanks! Normal [facility] Urology Office/Clinic Noteon 10-21-2024 Urology Office/Clinic Note Urology Office/Clinic Note Chief Complaint 1 year f/u HPI Staff 64yr old male pt here for 1yr f/u with PSA. Previous Dx: BPH with urinary obstruction, hypogonadism male, urge incontinence, ED *Tamsulosin 0.4mg QD PSA 09/06/21 - 0.70 06/15/22 - 0.79 He did have labs done @ [facility] but no PSA Dysuria: denies Incomplete bladder [...] -Cont Tamsulosin wo changes. Refills sent to [facility]. -Complete PSA level soon. Will call pt [...] Crawford, URL [facility] [address], [facility] [place] [phone] Additional Instructions: 1 yr w/ PSA and T level Patient Education Benign Prostatic Hyperplasia INicki, personally scribed for Dr. Mendoza on 10/21/2024 11:56:36. . Documentation recorded by the scribeNicki, accurately reflects the services(s) I performed and decisions made by me. Authenticated by Dr. Mendoza on 10/21/2024 11:59:18. Problem List/Past Medical History [...] levothyroxine 150 (more content not included)... Normal [facility] Comment on above: Result Comment: Elec tronically Signed By: Vianey MENDOZA MD\.br\Date and Time Signed: 10/21/24 11:59 EST\.br\Electronically [...] with betadine and alcohol.). MANUALLY TRANSCRIBED RESULTS [facility] Ambulatory Visit Summaryon 1 10-13-2023 Ambulatory Visit Summary Ambulatory Visit Summary VIANEY LACEY :1960 Visit Date:08/13/2024 Ambulatory Visit Instructions Your Care Team Attending Physician - ROBERTO PRIETO, Shawanda Crawford Primary Care Physician - Ilda Hendrickson MD This Is Your Medications List apixaban [...] PRIETO, Vianey Crawford Where: [facility] [place] [address]- Medications What How Much When Instructions Unchanged [...] for choosing us for your care. Normal [facility] Office Visiton 07-16-2024 Follow-up visit [id number] EdienkechiVianey 1960 Provider Department Center 07/16/2024 BAKARI CARSON MAXWELL [facility] Family History Problem Relation Age of Onset Cancer Mother Diabetes Mother Coronary artery disease Father Stroke Father Cancer Father Family Status - Relation Status Age at Mother Father Level of Service:02203 SD OFFICE/OUTPATIENT ESTABLISHED LOW MDM 20 MIN [facility] $ Large Joint Injection: R k neeon 06-11-2024 Osmin Anthony MD 06/11/2024 12:03 PM [...] with betadine and alcohol.). MANUALLY TRANSCRIBED RESULTS [facility] Orders Onlyon 06-11-2024 Orders Only [id number] Vianey Lacey 1960 [facility] Provider Department Center 06/11/2024 Isa-NATALIIA, DANILOAB [facility] Family History Problem Relation Age of Onset Cancer Mother Diabetes Mother Coronary artery disease Father Stroke Father Cancer Father Family Status - Relation Status Age at Mother Father Normal [facility] Erythrocyte distribution wid th Auto (RBC) [Ratio]on 06-03-2024 Erythrocyte distribution width (RBC) [Ratio] 13.3 % 11.0-15.0 [facility] Estimated glomerular filtrat ion rate (GFR) non- Americanon 09-09-2024 GFR/1.73 sq M.predicted among non-blacks MDRD (S/P/Bld) [Vol rate/Area] mL/min/{1.73_m2} >=60 [facility] Hematocrit Auto (Bld) [Volum e fraction]on 06-03-2024 Hematocrit (Bld) [Volume fraction] 45.4 % 42.0-54.0 [facility] Hemoglobin [Mass/volume] in Bloodon 06-03-2024 Hemoglobin (Bld) [Mass/Vol] 15.4 g/dL 14.0-18.0 [facility] Laboratory - Chemistry and C hemistry - challengeon 06-03-2024 Albumin [Mass/Vol] 3.8 g/dL 3.4-5.0 [facility] Calcium [Mass/Vol] 8.9 mg/dL 8.5-10.1 [facility] Chloride [Moles/Vol] 101 mmol/L 98-107 [facility] CO2 [Moles/Vol] 31.2 mmol/L 21.0-32.0 [facility] Creatinine [Mass/Vol] 1.06 mg/dL 0.70-1.30 [facility] GFR/1.73 sq M.predicted MDRD (S/P/Bld) [Vol rate/Area] mL/min/{1.73_m2} >=60 [facility] Glucose [Mass/Vol] 91 mg/dL 74-106 [facility] Magnesium [Mass/Vol] 1.9 mg/dL 1.8-2.4 [facility] Potassium [Moles/Vol] 3.9 mmol/L 3.5-5.1 [facility] Sodium [Moles/Vol] 138 mmol/L 136-145 [facility] Urate [Mass/Vol] 4.7 mg/dL 3.5-7.2 [facility] Urea nitrogen [Mass/Vol] 18.0 mg/dL 7.0-18.0 [facility] Urea nitrogen/Creatinine [Mass ratio] 17.0 mg/mg [facility] Bilirubin Ql (U) Negative NEGATIVE [facility] Glucose (U) [Mass/Vol] Negative NEGATIVE [facility] Ketones Ql (U) Negative NEGATIVE [facility] pH (U) 5.5 [pH] 5.0-9.0 [facility] Specific gravity (U) [Rel density] 1.020 1.005-1.025 [facility] Urobilinogen Qn (U) 0.2 {Brenda'U}/dL 0.2-1.0 [facility] Laboratory - Specimen inform ationon 06-03-2024 Appearance (U) CLEAR CLEAR [facility] Color (U) YELLOW YELLOW [facility] Laboratory - Urinalysison Leukocyte esterase Test strip Ql (U) Negative NEGATIVE [facility] Mucus Ql (Urine sed) NONE SEEN NONE SEEN [facility] Nitrite Ql (U) Negative NEGATIVE [facility] Protein (U) [Mass/Vol] 6.9 mg/dL <=11.9 [facility] Protein Ql (U) Negative NEG/TRACE [facility] Leukocytes [#/volume] correc kim for nucleated erythrocytes in Blood by Automated counon 06-03-2024 WBC corrected for nucl RBC Auto (Bld) [#/Vol] 3.2 10 3/uL Low 4.0-11.0 [facility] MCH Auto (RBC) [Entitic mass ]on 06-03-2024 MCH (RBC) [Entitic mass] 29.7 pg 25.9-34.0 [facility] MCHC Auto (RBC) [Mass/Vol]on 06-03-2024 MCHC (RBC) [Mass/Vol] 33.9 g/dL 29.9-35.2 [facility] MCV Auto (RBC) [Entitic vol] on 06-03-2024 MCV (RBC) [Entitic vol] 87.5 fL 80.0-94.0 [facility] No Panel Informationon 06-03 25-Hydroxy Vitamin D Total 74.8 ng/mL [facility] Comment on above: <20 ng/mL Vit D defi cient20-<30 ng/mL Vit D [id number] ng/mL Vit D sufficient>100 ng/mL Potential Toxicity Parathyroid Hormone (Intact) 34 pg/mL 15-65 [facility] Comment on above: Performed at: [facility] [id number] [place], [place] [id number] Director: Aleks Ferreira PhD, Phone: [phone] Phosphorus Level 2.9 mg/dL 2.6-4.7 [facility] Urine Bacteria NONE SEEN #/HPF NONE SEEN [facility] Urine Occult Blood Negative NEGATIVE [facility] Urine Random Creatinine 107.55 mg/dL 20.00-300.00 [facility] Urine RBC NONE SEEN #/HPF 0-2 [facility] Urine Squamous Epithelial Cells RARE #/LPF NONE/RARE [facility] Urine WBC NONE SEEN #/HPF NONE SEEN [facility] Platelet mean volume Auto (B ld) [Entitic vol]on 06-03-2024 Platelet mean volume (Bld) [Entitic vol] 9.5 fL 9.5-13.5 [facility] Platelets Auto (Bld) [#/Vol] on 06-03-2024 Platelets (Bld) [#/Vol] 126 10 3/uL Low 150-450 [facility] RBC Auto (Bld) [#/Vol]on RBC (Bld) [#/Vol] 5.19 10 6/uL 4.70-6.10 [facility] Serum or plasma anion gap de terminationon 06-03-2024 Anion gap [Moles/Vol] 9.7 mmol/L [facility] Urine protein/creatinine rat ioon 06-03-2024 Protein/Creatinine (U) [Ratio] 0.06 [facility] Reminderson 05-30-2024 Reminders Reminders From: Melissa Nash LPN To: GSN - Clinical; Sent: 05/30/2024 15:23:45 EDT Show up: 04/28/2034 07:00:00 EDT Subject: colonoscopy recall Due Date/Time: 05/29/2034 07:00:00 EDT Reminder/Recall Patient due for screening colonoscopy 05/29/2034. Normal [facility] Ambulatory Visit Summaryon 0 05-07-2024 Ambulatory Visit Summary Ambulatory Visit Summary VIANEY LACEY :1960 Visit Date:05/07/2024 Ambulatory Visit Instructions Your Diagnosis Screening for malignant neoplasm of colon Chronic anticoagulation Your Care Team Attending Physician - ROBERTO PRIETO, Shawanda Crawford Primary Care Physician - Ilda Hendrickson MD This Is Your Medications List Contact [...] PRIETO, Vianey Crawford Where: [facility] [address] [address]- Medications What How Much When Instructions Unchanged [...] for choosing us for your care. Normal [facility] 36on 04-11-2024 36 Patient needs scheduled for colonoscopy and would like to know if he can hold Eliquis prior. Please advise. Thanks! Normal [facility] 04-05-2024 L Specimen: [id number] Received: 04/08/24 Status: ROYER Fernandes Num: [id number] Spec Type: Impression Subm Dr: Tracy Griffin MD Tissues: PATHPER Procedures: PATHREVIEW Age/ Patient Sex Location Account Attending Physician Vianey Lacey 64/M [place] [id number] Tracy Griffin MD SPEC NUM: [id number] RECD: 04/08/24 STATUS: ROYER FERNANDES NUM: [id number] LADONNA: 04/05/[address]: Tracy Griffin MD ENTERED: 04/08/24 [facility] DR: Odell Dillard SPEC TYPE: Impression DEPT: [facility] ENTERED BY: [id number] RECV BY: [id number] ORDERED: PATHREVIEW ORDERED: PATHREVIEW Pathologist Review Abnormal [...] autoimmune disease, again requiring clinical correlations CPT: 61303 -------- -------- Specimen: [id number] Received: 04/08/24 Status: ROYER Fernandes Num: [id number] Spec Type: Impression Subm Dr: Tracy Griffin MD Tissues: PATHPER Procedures: PATHREVIEW -------- Patient: Vianey Lacey [id number] (Continued) -------- Signed (signature on file) Memo Morrison MD 04/09/24 1024 Normal [facility] 36 02-07-2024 36 Blood pressure meds read outs: [...] 50 @ 3:15pm 162/88 Heart rate 53 December- @ 11:00am 158/86 heart rate 55 December 30 at 5:30pm 172/89 heart rate 62 @ 11:30pm 171/90, heart rate 5 @11:30am 152/82, heart rate 51 , @10:40pm 166/85 heart rate 55 December- @ 11:10pm 155/81 heart rate 58 @ 8:50am 153/83 heart rate 56 December- @ 6:45pm 143/78 heart rate 59 @ [...] at 12:10pm 144/80 heart rate56 Thank you, Normal [facility] Office Visiton 02-07-2024 Follow-up visit [id number] Vianey Lacey 1960 M Date Provider Department Center 02/07/2024 Isa-JOE WILLIAM CARD [facility] Family History Problem Relation Age of Onset Cancer Mother Diabetes Mother Coronary artery disease Father Stroke Father Cancer Father Family Status - Relation Status Age at Mother Father Level of Service:34172 SD OFFICE/OUTPATIENT ESTABLISHED MOD MDM 30 MIN [facility] $ Large Joint Injection: R k neeon 11-02-2023 Osmin Anthony MD 11/02/2023 11:03 AM [...] with betadine and alcohol.). MANUALLY TRANSCRIBED RESULTS [facility] Physician Referralon 024 Physician Referral [phone] [id number] [id number] Normal [facility] Telephone Encounteron 2022 Thread Spooler Authentication Interface Message Text Patient has not been seen by this specialist in more than 1 year. Please contact patient to schedule office visit. Thank you Normal [facility] CNOVon 04-26-2023 CNOV Office Visit (SPMESH ) VIANEY [id number]) 1960 M Date Time Provider Department 04/26/23 11:00 AM SHAWANDA HERNANDEZ [facility] During your visit today, we recorded [...] by mouth twice daily. GLUCOSAMINE HCL/CHONDROITIN ARANDA (GLUCOSAMINE-CHONDROI TIN) 750-600 mg [...] palpable masses (more content not included)... Normal [facility] TESTOSTERONE, TOTALon 2022 Testosterone [Mass/Vol] 347 ng/dL Normal 264-916 [facility] Comment on above: Result Comment: Adul t male reference interval is based on a population of healthy nonobese males (BMI <30) between 19 and 39 years old. Brad, et.al. JCEM 2017,102;6160-6801. PMID: [id number]. Performed By: #### T ESTTOT #### [facility] [address] [address] [address] Reuben Morrison XR TSPINE 3 VIEWSon 11-18-19 23 XR TSPINE 3 VIEWS EXAMINATION: XR LSPINE MIN 4 VIEWS, XR TSPINE 3 VIEWS [...] ALFREDITO LOAIZA Date: 2022-11-18 16:11 Normal [facility] TESTOSTERONE, TOTALon 2022 Testosterone [Mass/Vol] 993 ng/dL Critically high 264-916 [facility] Comment on above: Result Comment: Adul t male reference interval is based on a population of healthy nonobese males (BMI <30) between 19 and 39 years old. Brad et.al. JCEM 2017,102;9014-2595. PMID: [id number]. Performed By: #### T ESTTOT #### [facility] [address] [place] [address] Dr. Reuben Morrison CBC AUTO DIFFon 06-15-2022 BASO # 0.0 103/ul Normal 0.0-0.1 [facility] Comment on above: Performed By: #### C BC #### [facility] [address] [place] [address] Dr. Reuben Morrison Basophils/100 WBC (Bld) 0.4 % Normal 0.2-2.0 [facility] Comment on above: Performed By: #### C BC #### [facility] [address] [place] [address] Dr. Reuben Morrison EO # 0.1 103/ul Normal 0.0-0.7 [facility] Comment on above: Performed By: #### C BC #### [facility] [address] [place] [address] Dr. Reuben Morrison Eosinophils/100 WBC (Bld) 1.3 % Normal 0.9-7.0 [facility] Comment on above: Performed By: #### C BC #### [facility] [address] [place] [address] Dr. Reuben Morrison Erythrocyte distribution width (RBC) [Ratio] 14.3 % Normal 11.0-15.0 [facility] Comment on above: Performed By: #### C BC #### [facility] [address] [place] [address] Dr. Reuben Morrison Hematocrit (Bld) [Volume fraction] 48.9 % Normal 42.0-54.0 [facility] Comment on above: Performed By: #### C BC #### [facility] [address] [place] [address] Dr. Reuben Morrison Hemoglobin (Bld) [Mass/Vol] 16.6 g/dL Normal 14.0-18.0 [facility] Comment on above: Performed By: #### C BC #### [facility] [address] [place] [address] Dr. Reuben Morrison IG # 0.01 10e3/ul Normal 0.00-0.03 [facility] Comment on above: Performed By: #### C BC #### [facility] [address] [place] [address] Dr. Reuben Morrison IG % 0.2 % Normal 0.0-0.5 [facility] Comment on above: Performed By: #### C BC #### [facility] [address] [place] [address] Dr. Reuben Morrison LYMPH # 1.1 103/ul Critically low 1.2-3.8 [facility] Comment on above: Performed By: #### C BC #### [facility] [address] [place] [address] Dr. Reuben Morrison Lymphocytes/100 WBC (Bld) 24.3 % Normal 20.5-60.0 [facility] Comment on above: Performed By: #### C BC #### [facility] [address] [place] [address] Dr. Reuben Morrison MANUAL DIFF REQ NO Normal [facility] Comment on above: Performed By: #### C BC #### [facility] [address] [place] [address] Dr. Reuben Morrison MCH (RBC) [Entitic mass] 29.5 pg Normal 25.9-34.0 [facility] Comment on above: Performed By: #### C BC #### [facility] [address] [place] [address] Dr. Reuben Morrison MCHC (RBC) [Mass/Vol] 33.9 g/dL Normal 29.9-35.2 [facility] Comment on above: Performed By: #### C BC #### [facility] [address] [place] [address] Dr. Reuben Morrison MCV (RBC) [Entitic vol] 86.9 fL Normal 80.0-94.0 [facility] Comment on above: Performed By: #### C BC #### [facility] [address] [place] [address] Dr. Reuben Morrison MONO # 0.5 103/ul Normal 0.3-0.8 [facility] Comment on above: Performed By: #### C BC #### [facility] [address] [place], [place] [id number] Dr. Reuben Morrison Monocytes/100 WBC (Bld) 9.6 % Normal 1.7-12.0 [facility] Comment on above: Performed By: #### C BC #### [facility] [address] [place] [address] Dr. Reuben Morrison NEUT # 3.0 103/ul Normal 1.4-6.5 [facility] Comment on above: Performed By: #### C BC #### [facility] [address] [place] [address] Dr. Reuben Morrison Neutrophils/100 WBC (Bld) 64.2 % Normal 43.0-75.0 [facility] Comment on above: Performed By: #### C BC #### [facility] [address] [place] [address] Dr. Reuben Morrison Platelet mean volume (Bld) [Entitic vol] 9.7 fL Normal 9.5-13.5 [facility] Comment on above: Performed By: #### C BC #### [facility] [address] [place] [address] Dr. Reuben Morrison PLT 130 103/ul Critically low 150-450 [facility] Comment on above: Result Comment: plts . appear slightly decreased Performed By: #### C BC #### [facility] [address] [place] [address] Dr. Reuben Morrison RBC 5.63 106/ul Normal 4.70-6.10 [facility] Comment on above: Performed By: #### C BC #### [facility] [address] [place] [address] Dr. Reuben Morrison WBC 4.7 103/ul Normal 4.0-11.0 [facility] Comment on above: Performed By: #### C BC #### [facility] [address] [place] [address] Dr. Reuben Morrison TESTOSTERONE, TOTALon 2021 Testosterone [Mass/Vol] 404 ng/dL Normal 264-916 [facility] Comment on above: Result Comment: Adul t male reference interval is based on a population of healthy nonobese males (BMI <30) between 19 and 39 years old. mony Salinas. JCEM 2017,102;9836-5089. PMID: [id number]. Performed By: #### T ESTTOT #### [facility] [address] [place] [address] Dr. Reuben Morrison CBC AUTO DIFFon 04-27-2022 BASO # 0.0 103/ul Normal 0.0-0.1 [facility] Comment on above: Performed By: #### T ESTTOT #### [facility] [address] [place] [address] Dr. Reuben Morrison Basophils/100 WBC (Bld) 1.0 % Normal 0.2-2.0 [facility] Comment on above: Performed By: #### T ESTTOT #### [facility] [address] [place] [address] Dr. Reuben Morrison EO # 0.1 103/ul Normal 0.0-0.7 [facility] Comment on above: Performed By: #### T ESTTOT #### [facility] [address] [place] [address] Dr. Reuben Morrison Eosinophils/100 WBC (Bld) 1.8 % Normal 0.9-7.0 [facility] Comment on above: Performed By: #### T ESTTOT #### [facility] [address] [place] [address] Dr. Reuben Morrison Erythrocyte distribution width (RBC) [Ratio] 14.0 % Normal 11.0-15.0 [facility] Comment on above: Performed By: #### T ESTTOT #### [facility] [address] [place] [address] Dr. Reuben Morrison Hematocrit (Bld) [Volume fraction] 47.3 % Normal 42.0-54.0 [facility] Comment on above: Performed By: #### T ESTTOT #### [facility] [address] [place] [address] Dr. Reuben Morrison Hemoglobin (Bld) [Mass/Vol] 16.2 g/dL Normal 14.0-18.0 [facility] Comment on above: Performed By: #### T ESTTOT #### [facility] [address] [place] [address] Dr. Reuben Morrison IG # 0.01 10e3/ul Normal 0.00-0.03 [facility] Comment on above: Performed By: #### T ESTTOT #### [facility] [address] [place] [address] Dr. Reuben Morrison IG % 0.3 % Normal 0.0-0.5 [facility] Comment on above: Performed By: #### T ESTTOT #### [facility] [address] [place] [address] Dr. Reuben Morrison LYMPH # 1.1 103/ul Critically low 1.2-3.8 [facility] Comment on above: Performed By: #### T ESTTOT #### [facility] [address] [place] [address] Dr. Reuben Morrison Lymphocytes/100 WBC (Bld) 26.6 % Normal 20.5-60.0 [facility] Comment on above: Performed By: #### T ESTTOT #### [facility] [address] [place] [address] Dr. Reuben Morrison MANUAL DIFF REQ NO Normal [facility] Comment on above: Performed By: #### T ESTTOT #### [facility] [address] [place] [address] Dr. Reuben Morrison MCH (RBC) [Entitic mass] 29.5 pg Normal 25.9-34.0 [facility] Comment on above: Performed By: #### T ESTTOT #### [facility] [address] [place] [address] Dr. Reuben Morrison MCHC (RBC) [Mass/Vol] 34.2 g/dL Normal 29.9-35.2 [facility] Comment on above: Performed By: #### T ESTTOT #### [facility] [address] [place] [address] Dr. Reuben Morrison MCV (RBC) [Entitic vol] 86.2 fL Normal 80.0-94.0 [facility] Comment on above: Performed By: #### T ESTTOT #### [facility] [address] [address] [address] Reuben Morrison MONO # 0.4 103/ul Normal 0.3-0.8 [facility] Comment on above: Performed By: #### T ESTTOT #### [facility] [address] [address] [address] Reuben Morrison Monocytes/100 WBC (Bld) 9.0 % Normal 1.7-12.0 [facility] Comment on above: Performed By: #### T ESTTOT #### [facility] [address] [place] [address] Dr. Reuben Morrison NEUT # 2.5 103/ul Normal 1.4-6.5 [facility] Comment on above: Performed By: #### T ESTTOT #### [facility] [address] [place] [address] Dr. Reuben Morrison Neutrophils/100 WBC (Bld) 61.3 % Normal 43.0-75.0 [facility] Comment on above: Performed By: #### T ESTTOT #### [facility] [address] [place] [address] Dr. Reuben Morrison Platelet mean volume (Bld) [Entitic vol] 9.6 fL Normal 9.5-13.5 [facility] Comment on above: Performed By: #### T ESTTOT #### [facility] [address] [place] [address] Dr. Reuben Morrison PLT 128 103/ul Critically low 150-450 [facility] Comment on above: Performed By: #### T ESTTOT #### [facility] [address] [place] [address] Dr. Reuben Morrison RBC 5.49 106/ul Normal 4.70-6.10 [facility] Comment on above: Performed By: #### T ESTTOT #### [facility] [address] [place] [address] Dr. Reuben Morrison WBC 4.0 103/ul Normal 4.0-11.0 [facility] Comment on above: Performed By: #### T ESTTOT #### [facility] [address] [place] [address] Dr. Reuben Morrison INSULINon 03-08-2022 Insulin 4.3 uIU/mL Normal 2.6-24.9 [facility] Comment on above: Performed By: #### T ESTTOT #### [facility] [address] [place] [address] Dr. Reuben Morrison TESTOSTERONE, TOTALon 2021 Testosterone [Mass/Vol] ng/dL Critically high 264-916 [facility] Comment on above: Result Comment: Adul t male reference interval is based on a population of healthy nonobese males (BMI <30) between 19 and 39 years old. Brad et.al. JCEM 2017,102;4128-3858. PMID: [id number]. Performed By: #### T ESTTOT #### [facility] [address] [place] [address] Dr. Reuben Morrison CBC AUTO DIFFon 03-07-2022 BASO # 0.1 103/ul Normal 0.0-0.1 [facility] Comment on above: Performed By: #### C BC #### [facility] [address] [place] [address] Dr. Reuben Morrison Basophils/100 WBC (Bld) 1.4 % Normal 0.2-2.0 [facility] Comment on above: Performed By: #### C BC #### [facility] [address] [place] [address] Dr. Reuben Morrison EO # 0.1 103/ul Normal 0.0-0.7 [facility] Comment on above: Performed By: #### C BC #### [facility] [address] [place] [address] Dr. Reuben Morrison Eosinophils/100 WBC (Bld) 1.4 % Normal 0.9-7.0 [facility] Comment on above: Performed By: #### C BC #### [facility] [address] [place] [address] Dr. Reuben Morrison Erythrocyte distribution width (RBC) [Ratio] 14.7 % Normal 11.0-15.0 [facility] Comment on above: Performed By: #### C BC #### [facility] [address] [place] [address] Dr. Reuben Morrison Hematocrit (Bld) [Volume fraction] 49.8 % Normal 42.0-54.0 [facility] Comment on above: Performed By: #### C BC #### [facility] [address] [place] [address] Dr. Reuben Morrison Hemoglobin (Bld) [Mass/Vol] 16.4 g/dL Normal 14.0-18.0 [facility] Comment on above: Performed By: #### C BC #### [facility] [address] [place] [address] Dr. Reuben Morrison IG # 0.01 10e3/ul Normal 0.00-0.03 [facility] Comment on above: Performed By: #### C BC #### [facility] [address] [place] [address] Dr. Reuben Morrison IG % 0.3 % Normal 0.0-0.5 [facility] Comment on above: Performed By: #### C BC #### [facility] [address] [place] [address] Dr. Reuben Morrison LYMPH # 0.9 103/ul Critically low 1.2-3.8 [facility] Comment on above: Performed By: #### C BC #### [facility] [address] [place] [address] Dr. Reuben Morrison Lymphocytes/100 WBC (Bld) 24.7 % Normal 20.5-60.0 [facility] Comment on above: Performed By: #### C BC #### [facility] [address] [place] [address] Dr. Reuben Morrison MANUAL DIFF REQ NO Normal [facility] Comment on above: Performed By: #### C BC #### [facility] [address] [place] [address] Dr. Reuben Morrison MCH (RBC) [Entitic mass] 28.9 pg Normal 25.9-34.0 [facility] Comment on above: Performed By: #### C BC #### [facility] [address] [address] [address] Reuben Morrison MCHC (RBC) [Mass/Vol] 32.9 g/dL Normal 29.9-35.2 [facility] Comment on above: Performed By: #### C BC #### [facility] [address] [address] [address] Reuben Morrison MCV (RBC) [Entitic vol] 87.7 fL Normal 80.0-94.0 [facility] Comment on above: Performed By: #### C BC #### [facility] [address] [address] [address] Reuben Morrison MONO # 0.4 103/ul Normal 0.3-0.8 [facility] Comment on above: Performed By: #### C BC #### [facility] [address] [place] [address] Dr. Reuben Morrison Monocytes/100 WBC (Bld) 9.5 % Normal 1.7-12.0 [facility] Comment on above: Performed By: #### C BC #### [facility] [address] [place] [address] Dr. Reuben Morrison NEUT # 2.3 103/ul Normal 1.4-6.5 [facility] Comment on above: Performed By: #### C BC #### [facility] [address] [place] [address] Dr. Reuben Morrison Neutrophils/100 WBC (Bld) 62.7 % Normal 43.0-75.0 [facility] Comment on above: Performed By: #### C BC #### [facility] [address] [place] [address] Dr. Reuben Morrison Platelet mean volume (Bld) [Entitic vol] 9.8 fL Normal 9.5-13.5 [facility] Comment on above: Performed By: #### C BC #### [facility] [address] [place] [address] Dr. Reuben Morrison PLT 149 103/ul Critically low 150-450 [facility] Comment on above: Performed By: #### C BC #### [facility] [address] [place] [address] Dr. Reuben Morrison RBC 5.68 106/ul Normal 4.70-6.10 [facility] Comment on above: Performed By: #### C BC #### [facility] [address] [address] [address] Reuben Morrison WBC 3.7 103/ul Critically low 4.0-11.0 [facility] Comment on above: Performed By: #### C BC #### [facility] [address] [place] [address] Dr. Reuben Morrison FREE THYROXINE INDEX T7on FTI 2.50 Normal 1.30-4.50 [facility] Comment on above: Performed By: #### C MP, T7, TSH, LIPID #### [facility] [address] [place] [address] Dr. Reuben Morrison T3U 39.0 % Normal 33.0-40.0 [facility] Comment on above: Performed By: #### C MP, T7, TSH, LIPID #### [facility] [address] [place] [address] Dr. Reuben Morrison T4 [Mass/Vol] 6.40 ug/dL Normal 4.50-12.10 [facility] Comment on above: Performed By: #### C MP, T7, TSH, LIPID #### [facility] [address] [place] [address] Dr. Reuben Morrison GLYCOHEMOGLOBIN A1Con 2021 ADA RECOMMENDATION SEE BELOW Normal [facility] Comment on above: Result Comment: ADA RECOMMENDED LIMIT 4.0 - 6.0 ADA THERAPEUTIC TARGET < 7.0 ACTION SUGGESTED > 7.0 Performed By: #### T ESTTOT #### [facility] [address] [place] [address] Dr. Reuben Morrison Glucose [Mass/Vol] 105 mg/dL Normal [facility] Comment on above: Performed By: #### T ESTTOT #### [facility] [address] [place] [address] Dr. Reuben Morrison HbA1c (Bld) [Mass fraction] 5.3 % Normal 4.5-6.2 [facility] Comment on above: Performed By: #### T ESTTOT #### [facility] [address] [address] [address] Reuben Morrison IRONon 03-07-2022 Iron [Mass/Vol] 100.0 ug/dL Normal 65.0-175.0 [facility] Comment on above: Performed By: #### I BLAIR, PSASC, VITB12, VITAD #### [facility] [address] [address] [address] Reuben Morrison LIPID PROFILEon 03-07-2022 CHOL-HDL RATIO NORM SEE BELOW Normal [facility] Comment on above: Result Comment: 3.3 - 4.4 LOW RISK 4.4 - 7.1 AVERAGE RISK 7.1 - 11.0 MODERATE RISK >11.0 HIGH RISK Performed By: #### C MP, T7, TSH, LIPID #### [facility] [address] [address] [address] Reuben Morrison Cholesterol [Mass/Vol] 157 mg/dL Normal <=200 [facility] Comment on above: Performed By: #### C MP, T7, TSH, LIPID #### [facility] [address] [address] [address] Reuben Morrison Cholesterol in HDL [Mass/Vol] 48 mg/dL Normal 40-60 [facility] Comment on above: Performed By: #### C MP, T7, TSH, LIPID #### [facility] [address] [address] [address] Reuben Morrison Cholesterol in LDL [Mass/Vol] 96.0 mg/dL Normal [facility] Comment on above: Performed By: #### C MP, T7, TSH, LIPID #### [facility] [address] [address] [address] Reuben Morrison Cholesterol.total/Ch olesterol in HDL [Mass ratio] 3.3 {ratio} Normal [facility] Comment on above: Performed By: #### C MP, T7, TSH, LIPID #### [facility] [address] [address] [address] Reuben Morrison HDL NORMAL > or = 60 mg/dl - LO W CARDIOVASCULAR RISK <40 mg/dl - HIGH CARDIOVASCULAR RISK Normal [facility] Comment on above: Performed By: #### C MP, T7, TSH, LIPID #### [facility] [address] [address] [address] Reuben Morrison LDL CALC NORMAL SEE BELOW Normal [facility] Comment on above: Result Comment: <100 mg/dl OPTIMAL 100 - 129 mg/dl NEAR OR ABOVE OPTIMAL 130 - 159 mg/dl BORDERLINE HIGH 160 - 189 mg/dl HIGH >190 mg/dl VERY HIGH Performed By: #### C MP, T7, TSH, LIPID #### [facility] [address] [address] [address] Reuben Morrison Triglyceride [Mass/Vol] 65 mg/dL Normal <=150 [facility] Comment on above: Performed By: #### C MP, T7, TSH, LIPID #### [facility] [address] [address] [address] Reuben Morrison VLDL CALC 13.0 mg/dL Normal [facility] Comment on above: Performed By: #### C MP, T7, TSH, LIPID #### [facility] [address] [address] [address] Reuben Morrison PROF 14(COMP METB)on 022 Albumin [Mass/Vol] 3.7 g/dL Normal 3.4-5.0 [facility] Comment on above: Performed By: #### C MP, T7, TSH, LIPID #### [facility] [address] [place] [address] Dr. Reuben Morrison Albumin/Globulin [Mass ratio] 1.3 {ratio} Normal [facility] Comment on above: Performed By: #### C MP, T7, TSH, LIPID #### [facility] [address] [place] [address] Dr. Reuben Morrison ALP [Catalytic activity/Vol] 53 U/L Normal 46-116 [facility] Comment on above: Performed By: #### C MP, T7, TSH, LIPID #### [facility] [address] [address] [address] Reuben Morrison ALT [Catalytic activity/Vol] 37 U/L Normal 16-63 [facility] Comment on above: Performed By: #### C MP, T7, TSH, LIPID #### [facility] [address] [place] [address] Dr. Reuben Morrison Anion gap [Moles/Vol] 11.0 mmol/L Normal [facility] Comment on above: Performed By: #### C MP, T7, TSH, LIPID #### [facility] [address] [place] [address] Dr. Reuben Morrison AST [Catalytic activity/Vol] 28 U/L Normal 15-37 [facility] Comment on above: Performed By: #### C MP, T7, TSH, LIPID #### [facility] [address] [place] [address] Dr. Reuben Morrison Bilirubin [Mass/Vol] 0.9 mg/dL Normal 0.2-1.0 [facility] Comment on above: Performed By: #### C MP, T7, TSH, LIPID #### [facility] [address] [place] [address] Dr. Reuben Morrison Calcium [Mass/Vol] 8.9 mg/dL Normal 8.5-10.1 [facility] Comment on above: Performed By: #### C MP, T7, TSH, LIPID #### [facility] [address] [place] [address] Dr. Reuben Morrison Chloride [Moles/Vol] 106 mmol/L Normal 98-107 [facility] Comment on above: Performed By: #### C MP, T7, TSH, LIPID #### [facility] [address] [place] [address] Dr. Reuben Morrison CO2 [Moles/Vol] 28.2 mmol/L Normal 21.0-32.0 [facility] Comment on above: Performed By: #### C MP, T7, TSH, LIPID #### [facility] [address] [place] [address] Dr. Reuben Morrison Creatinine [Mass/Vol] 1.55 mg/dL Critically high 0.70-1.30 [facility] Comment on above: Performed By: #### C MP, T7, TSH, LIPID #### [facility] [address] [address] [address] Reuben Morrison EGFR-AF SERBIAN 55 mL/min/1.73m2 Critically low >=60 [facility] Comment on above: Performed By: #### C MP, T7, TSH, LIPID #### [facility] [address] [place] [address] Dr. Reuben Morrison EGFR-NON AF SERBIAN 46 mL/min/1.73m2 Critically low >=60 [facility] Comment on above: Performed By: #### C MP, T7, TSH, LIPID #### [facility] [address] [place] [address] Dr. Reuben Morrison Globulin (S) [Mass/Vol] 2.9 g/dL Normal [facility] Comment on above: Performed By: #### C MP, T7, TSH, LIPID #### [facility] [address] [place] [address] Dr. Reuben Morrison Glucose [Mass/Vol] 88 mg/dL Normal 74-106 [facility] Comment on above: Performed By: #### C MP, T7, TSH, LIPID #### [facility] [address] [place] [address] Dr. Reuben Morrison Potassium [Moles/Vol] 4.2 mmol/L Normal 3.5-5.1 [facility] Comment on above: Performed By: #### C MP, T7, TSH, LIPID #### [facility] [address] [place] [address] Dr. Reuben Morrison Protein [Mass/Vol] 6.6 g/dL Normal 6.4-8.2 [facility] Comment on above: Performed By: #### C MP, T7, TSH, LIPID #### [facility] [address] [place] [address] Dr. Reuben Morrison Sodium [Moles/Vol] 141 mmol/L Normal 136-145 [facility] Comment on above: Performed By: #### C MP, T7, TSH, LIPID #### [facility] [address] [address] [address] Reuben Morrison Urea nitrogen [Mass/Vol] 13.0 mg/dL Normal 7.0-18.0 [facility] Comment on above: Performed By: #### C MP, T7, TSH, LIPID #### [facility] [address] [address] [address] Reuben Morrison Urea nitrogen/Creatinine [Mass ratio] 8.4 mg/mg Normal [facility] Comment on above: Performed By: #### C MP, T7, TSH, LIPID #### [facility] [address] [address] [address] Reuben Morrison TSHon 03-07-2022 TSH 0.091 uIU/mL Critically low 0.358-3.740 [facility] Comment on above: Performed By: #### C MP, T7, TSH, LIPID #### [facility] [address] [place] [address] Dr. Reuben Morrison TSH RANGE SEE BELOW Normal [facility] Comment on above: Result Comment: <0.3 4 UIU/ml HYPERTHYROID 0.34-5.60 UIU/ml EUTHYROID >5.60 UIU/ml HYPOTHYROID Performed By: #### C MP, T7, TSH, LIPID #### [facility] [address] [place] [address] Dr. Reuben Morrison VITAMIN B12on 03-07-2022 Cobalamin (Vitamin B12) [Mass/Vol] 3126.0 pg/mL Critically high 193.0-986.0 [facility] Comment on above: Performed By: #### T ESTTOT #### [facility] [address] [place] [address] Dr. Reuben Morrison VITAMIN D 25 OHon 03-07-2022 VIT D 25-OH 90.4 ng/mL Normal [facility] Comment on above: Performed By: #### T ESTTOT #### [facility] [address] [place] [address] Dr. Reuben Morrison VIT D RANGES SEE BELOW Normal [facility] Comment on above: Result Comment: <20 ng/mL Vit D deficient 20 - <30 ng/mL Vit D insufficient 30 - 100 ng/mL Vit D sufficient >100 ng/mL Potential Toxicity Performed By: #### T ESTTOT #### [facility] [address] [place] [address] Dr. Reuben Morrison XR SHOULDER RICHARD 2V [...] ERIN HANSEN Date: 2022-03-07 16:26 Normal [facility] Vital Signs Date Time Vital Sign Value Performing Clinician Facility 10-21-2024 10:46-0500 Body temperature 97.52 [degF] Vianey MENDOZA [facility] 10-21-2024 10:46-0500 Diastolic blood pressure 84 mm[Hg] Vianey MENDOZA [facility] 10-21-2024 10:46-0500 Systolic blood pressure 128 mm[Hg] Vianey MENDOZA [facility] 10-08-2024 14:40-0500 Body height 170.2 cm Osmin Anthony MD Work Phone: [facility] 10-08-2024 14:40-0500 Body mass index (BMI) [Ratio] 29.13 kg/m2 Osmin Anthony MD Work Phone: [facility] 10-08-2024 14:40-0500 Body weight 84.37 kg Osmin Anthony MD Work Phone: [facility] 08-13-2024 13:46-0500 Blood Pressure Location Shawanda MEJIA [facility] 08-13-2024 13:46-0500 Diastolic blood pressure 82 mm[Hg] Shawanda MEJIA [facility] 08-13-2024 13:46-0500 Heart rate 72 /min Shawanda MEJIA [facility] 08-13-2024 13:46-0500 Respiratory rate 16 /min Shawanda MEJIA [facility] 08-13-2024 13:46-0500 Systolic blood pressure 122 mm[Hg] Shawanda MEJIA [facility] 07-17-2024 14:59-0400 Body height 168.9 cm Sage Russel DO Work Phone: [facility] 07-17-2024 14:59-0400 Body mass index (BMI) [Ratio] 30.02 kg/m2 Sage Russel DO Work Phone: [facility] 07-17-2024 14:59-0400 Body weight 85.64 kg Sage Russel DO Work Phone: [facility] 07-17-2024 14:59-0400 Diastolic blood pressure 90 mm[Hg] Sage Russel DO Work Phone: [facility] 07-17-2024 14:59-0400 Heart rate 68 /min Sage Russel DO Work Phone: [facility] 07-17-2024 14:59-0400 SaO2% (BldA) [Mass fraction] 98 % Sage Russel DO Work Phone: [facility] 07-17-2024 14:59-0400 Systolic blood pressure 134 mm[Hg] Sage Russel DO Work Phone: [facility] 06-12-2024 11:04-0400 Body height 168.9 cm Román Hoang MD Work Phone: [facility] 06-12-2024 11:04-0400 Body mass index (BMI) [Ratio] 29.89 kg/m2 Román Hoang MD Work Phone: [facility] 06-12-2024 11:04-0400 Body weight 85.28 kg Román Hoang MD Work Phone: [facility] 06-12-2024 11:04-0400 Diastolic blood pressure 78 mm[Hg] Román Hoang MD Work Phone: [facility] 06-12-2024 11:04-0400 Heart rate 68 /min Román Hoang MD Work Phone: [facility] 06-12-2024 11:04-0400 Respiratory rate 16 /min Román Hoang MD Work Phone: [facility] 06-12-2024 11:04-0400 Systolic blood pressure 130 mm[Hg] Román Hoang MD Work Phone: [facility] 06-11-2024 11:20-0400 Body height 170.2 cm Osmin Anthony MD Work Phone: [facility] 06-11-2024 11:20-0400 Body mass index (BMI) [Ratio] 28.7 kg/m2 Osmin Anthony MD Work Phone: [facility] 06-11-2024 11:20-0400 Body weight 83.12 kg Osmin Anthony MD Work Phone: [facility] 06-06-2024 13:55-0400 Body height 168.91 cm MD Ilda Hendrickson Work Phone: [facility] 06-06-2024 13:55-0400 Body mass index (BMI) [Ratio] 29.4 kg/m2 MD Ilda Hendrickson Work Phone: [facility] 06-06-2024 13:55-0400 Body temperature 98.8 [degF] MD Ilda Hendrickson Work Phone: [facility] 06-06-2024 13:55-0400 Body weight 83.97 kg MD Ilda Hendrickson Work Phone: [facility] 06-06-2024 13:55-0400 Diastolic blood pressure 88 mm[Hg] MD Ilda Hendrickson Work Phone: [facility] 06-06-2024 13:55-0400 Heart rate 61 /min MD Ilda Hendrickson Work Phone: [facility] 06-06-2024 13:55-0400 Respiratory rate 16 /min MD Ilda Hendrickson Work Phone: [facility] 06-06-2024 13:55-0400 SaO2% (BldA) [Mass fraction] 98 % MD Ilda Hendrickson Work Phone: [facility] 06-06-2024 13:55-0400 Systolic blood pressure 139 mm[Hg] MD Ilda Hendrickson Work Phone: [facility] 05-07-2024 15:01-0400 Blood Pressure Location Shawanda NILL [facility] 05-07-2024 15:01-0400 Diastolic blood pressure 84 mm[Hg] Shawanda NILL [facility] 05-07-2024 15:01-0400 Heart rate 68 /min Shawanda NILL [facility] 05-07-2024 15:01-0400 Respiratory rate 16 /min Shawanda NILL [facility] 05-07-2024 15:01-0400 Systolic blood pressure 118 mm[Hg] Shawanda NILL [facility] 11-02-2023 10:48-0500 Body height 170.2 cm Osmin Anthony MD Work Phone: [facility] 11-02-2023 10:48-0500 Body mass index (BMI) [Ratio] 29.29 kg/m2 Osmin Anthony MD Work Phone: [facility] 11-02-2023 10:48-0500 Body weight 84.82 kg Osmin Anthony MD Work Phone: [facility] 10-16-2023 13:03-0500 Blood Pressure Location Vianey MENDOZA [facility] 10-16-2023 13:03-0500 Diastolic blood pressure 82 mm[Hg] Vianey MENDOZA [facility] 10-16-2023 13:03-0500 Heart rate 75 /min Vianey MENDOZA [facility] 10-16-2023 13:03-0500 Respiratory rate 16 /min Vianey MENDOZA [facility] 10-16-2023 13:03-0500 Systolic blood pressure 131 mm[Hg] Vianey MENDOZA [facility] 07-27-2023 10:00-0400 Body height 168.91 cm Sandoval Antonia Other [facility] Other 07-27-2023 10:00-0400 Body mass index (BMI) [Ratio] 28.55 kg/m2 Sandoval Antonia Other [facility] Other 07-27-2023 10:00-0400 Body temperature 96.2 [degF] Sandoval Antonia Other [facility] Other 07-27-2023 10:00-0400 Body weight 81.47 kg Sandoval Antonia Other [facility] Other 07-27-2023 10:00-0400 Diastolic blood pressure 87 mm[Hg] Sandoval Antonia Other [facility] Other 07-27-2023 10:00-0400 Respiratory rate 16 /min Sandoval Antonia Other [facility] Other 07-27-2023 10:00-0400 SaO2% (BldA) [Mass fraction] 94 % Sandoval Antonia Other [facility] Other 07-27-2023 10:00-0400 Systolic blood pressure 130 mm[Hg] Sandoval Antonia Other [facility] Other 06-12-2023 12:25-0400 Blood Pressure Location Vianeyzayra MENDOZA [facility] 06-12-2023 12:25-0400 Diastolic blood pressure 74 mm[Hg] Vianey MENDOZA [facility] 06-12-2023 12:25-0400 Heart rate 68 /min Vianey MENDOZA [facility] 06-12-2023 12:25-0400 Respiratory rate 16 /min Vianeyzayra MENDOZA [facility] 06-12-2023 12:25-0400 Systolic blood pressure 128 mm[Hg] Vianey MENDOZA [facility] 04-26-2023 11:15-0400 Body height 168.4 cm Shawanda OCHOA-Rachel Work Phone: [facility] 04-26-2023 11:15-0400 Body temperature 98.01 [degF] Shawanda OCOHA-C Work Phone: [facility] 04-26-2023 11:15-0400 Body weight 86.95 kg Shawanda OCHOA-C Work Phone: [facility] 04-26-2023 11:15-0400 Diastolic blood pressure 94 mm[Hg] Shawanda LUCEROC Work Phone: [facility] 04-26-2023 11:15-0400 Heart rate 74 /min Shawanda Hernandez PA-C Work Phone: [facility] 04-26-2023 11:15-0400 SaO2% (BldA) [Mass fraction] 97 % Shawanda OCHOA-Rachel Work Phone: [facility] 04-26-2023 11:15-0400 Systolic blood pressure 147 mm[Hg] Shawanda OCHOA-C Work Phone: [facility] 12-02-2022 08:12-0500 Blood Pressure Location Vianey MENDOZA [facility] 12-02-2022 08:12-0500 Diastolic blood pressure 84 mm[Hg] Vianey MENDOZA [facility] 12-02-2022 08:12-0500 Heart rate 70 /min Vianey MENDOZA [facility] 12-02-2022 08:12-0500 Respiratory rate 16 /min Vianey MENDOZA [facility] 12-02-2022 08:12-0500 Systolic blood pressure 137 mm[Hg] Vianey MENDOZA [facility] 07-20-2022 14:11-0400 Body mass index (BMI) [Ratio] 28.98 kg/m2 Jovita Virk MD Work Phone: [facility] 07-20-2022 14:11-0400 Body temperature 98.01 [degF] Jovita Virk MD Work Phone: [facility] 07-20-2022 14:11-0400 Body weight 83.92 kg Jovita Virk MD Work Phone: [facility] 07-20-2022 14:11-0400 Diastolic blood pressure 86 mm[Hg] Jovita Virk MD Work Phone: [facility] 07-20-2022 14:11-0400 Heart rate 98 /min Jovita Virk MD Work Phone: [facility] 07-20-2022 14:11-0400 Respiratory rate 14 /min Jovita Virk MD Work Phone: [facility] 07-20-2022 14:11-0400 SaO2% (BldA) [Mass fraction] 100 % Jovita Virk MD Work Phone: [facility] 07-20-2022 14:11-0400 Systolic blood pressure 138 mm[Hg] Jovita Virk MD Work Phone: [facility] Encounters Encounter Date Encounter Type Care Provider Facility Start: 10-27-2025 [facility] Start: 01-21-2025 End: 01-21-2025 ambulatory AB [facility] Start: 10-21-2024 End: 10-21-2024 ambulatory Vianey MENDOZA Facility: [place] Start: 10-21-2024 End: 10-21-2024 Patient encounter procedure Vianey MENDOZA [facility] Start: 10-08-2024 End: 10-08-2024 [facility] Start: 10-08-2024 End: 10-08-2024 Patient encounter procedure Osmin Anthony MD Work Phone: [facility] Comment on above: Primary osteoarthrit is of right knee (Primary Dx) Start: 08-13-2024 End: 08-13-2024 ambulatory Shawanda MEJIA Facility:[facility] Start: 08-13-2024 End: 08-13-2024 Patient encounter procedure Shawanda MEJIA [facility] Start: 07-17-2024 End: 07-17-2024 ambulatory SAGE CAM Not Available Start: 07-17-2024 End: 07-17-2024 Office outpatient visit 25 minutes Sage Cam DO Work Phone: [facility] [address] Comment on above: NANCY (obstructive sle ep apnea) (Primary Dx); Hypersomnia; Snoring; Atrial fibrillation, unspecified type (CMS/HCC); Sleep deprivation Start: 07-17-2024 End: 07-17-2024 Bamboo flowsheet Sage Russel DO [facility] [address] [facility] Start: 07-17-2024 End: 07-17-2024 Bamboo flowsheet Sage Russel DO [facility] Start: 07-16-2024 End: 07-16-2024 ambulatory [facility] Start: 06-12-2024 End: 06-12-2024 Bamboo flowsheet Román Hoang MD Work Phone: [facility] Start: 06-12-2024 End: 06-12-2024 Bamboo flowsheet Román Hoang MD Work Phone: [facility] Start: 06-12-2024 End: 06-12-2024 ambulatory ROMÁN HOANG Not Available Start: 06-12-2024 End: 06-12-2024 Office outpatient visit 25 minutes Román Hoang MD Work Phone: [facility] Comment on above: Sarah's disease (CMS/HCC) (Primary Dx) Start: 06-11-2024 End: 06-11-2024 ambulatory OSMIN ANTHONY [facility] Start: 06-11-2024 End: 06-11-2024 Patient encounter procedure Osmin Anthony MD Work Phone: [facility] Comment on above: Primary osteoarthrit is of right knee (Primary Dx) Start: 06-06-2024 End: 06-06-2024 ambulatory MD Ilda Hendrickson Work Phone: [facility] Work Phone: Start: 06-06-2024 End: 06-06-2024 Patient encounter procedure MD Ilda Hendrickson [facility] Work Phone: Start: 06-03-2024 Non-patient / Non-visit MD Ravi Hendrickson Work Phone: [facility] Work Phone: Start: 05-29-2024 End: 05-29-2024 ambulatory Shawanda MEJIA Facility:CD:[id number] Start: 05-07-2024 End: 05-07-2024 ambulatory Shawanda R SUKHL Facility:[facility] Start: 05-07-2024 End: 05-07-2024 Patient encounter procedure Shawanda MEJIA [facility] Start: 05-06-2024 ambulatory Shawanda NILL Facility:[facility] Start: 04-05-2024 End: 04-05-2024 ambulatory MD Ilda Hendrickson Work Phone: [facility] Work Phone: Start: 04-05-2024 End: 04-05-2024 Departed Referred MD Ilda Hendrickson Work Phone: [facility] Start: 02-07-2024 End: 02-07-2024 ambulatory EHAB [facility] Start: 12-03-2023 [facility] Phone: Start: 11-27-2023 ambulatory Vianey MENDOZA Facili ty:[facility] [place] Start: 11-02-2023 End: 11-02-2023 Patient encounter procedure Osmin Anthony MD Work Phone: [facility] Comment on above: Primary osteoarthrit is of right knee (Primary Dx) Start: 11-02-2023 End: 11-02-2023 ambulatory OSMIN ANTHONY [facility] Start: 10-16-2023 End: 10-16-2023 Patient encounter procedure Vianey MENDOZA [facility] Start: 07-27-2023 End: 07-27-2023 ambulatory Sandoval Antonia Other [facility] Other Start: 07-27-2023 Office outpatient ne w 45 minutes Sandoval Antonia [facility] Start: 06-12-2023 End: 06-12-2023 Patient encounter procedure Vianey MENDOZA [facility] Start: 05-03-2023 End: 05-03-2023 Patient encounter procedure Taylor Joshua [facility] Start: 04-26-2023 End: 04-26-2023 ambulatory ILDA HENDRICKSON Facility:[facility] Start: 04-26-2023 End: 04-26-2023 Patient encounter procedure Shawanda Hernandez PA-C Work Phone: [facility] Comment on above: Height loss (Primary Dx) Start: 03-08-2023 End: 03-08-2023 Patient encounter procedure KYLE RODRIGUEZ [facility] Start: 01-20-2023 End: 01-21-[address] ILDA HENDRICKSON . Facility:[facility] Start: 12-02-2022 End: 12-02-2022 Patient encounter procedure Vianey Crawford HERRERA [facility] Start: 11-18-2022 End: 11-19-[address] ILDA HENDRICKSON . Facility:[facility] Start: 11-08-2022 End: 11-09-2022 ambulatory TAYLOR JOSHUA . Facility: Start: 11-01-2022 End: 11-01-2022 Patient encounter procedure KYLE RODRIGUEZ [facility] Start: 10-05-2022 End: 10-05-2022 Patient encounter procedure KYLE RODRIGUEZ [facility] Start: 09-07-2022 End: 09-07-2022 Patient encounter procedure Taylor Joshua [facility] Start: 08-28-2022 Letter encounter Jovita Virk MD Work Phone: [facility] Start: 08-17-2022 End: 08-17-2022 Patient encounter procedure Taylor Joshua [facility] Start: 08-12-2022 Telephone encounter Aarti vences MA, CCC, [employer] Work Phone: [facility] Start: 07-21-2022 End: 07-22-[address] ILDA HENDRICKSON . 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); Cognitive changes; Body mass index (BMI) 28.0-28.9, adult Start: 07-11-2022 End: 07-11-2022 Patient encounter procedure Vianey MENDOZA [facility] Start: 06-15-2022 End: 06-16-[address] SAEED Flores Facility:[facility] Start: 06-13-2022 End: 06-13-2022 Patient encounter procedure Vianey MENDOZA [facility] Start: 04-27-2022 End: 04-28-[address] SAEED Flores Facility:[facility] Start: 04-07-2022 Refill Jovita Virk MD Work Phone: [facility] [place] [facility] Comment on above: Refill Start: 03-21-[address] ILDA HENDRICKSON . Facili ty:[facility] Start: 03-17-[address] ILDA HENDRICKSON . Facili ty:[facility] Start: 03-09-2022 Encounter for genera l adult medical examination without abnormal findings DR ILDA HENDRICKSON . [facility] Start: 03-07-2022 End: 03-08-2022 Encounter for general adult medical examination without abnormal findings DR ILDA HENDRICKSON . Facility:[facility] Start: 03-07-2022 End: 03-08-[address] ILDA HENDRICKSON . Facility:[facility] Start: 03-01-2022 End: 03-01-2022 Patient encounter procedure Saeed Cantu Jr. [facility] Start: 02-01-2022 End: 02-01-2022 Patient encounter procedure Saeed Cantu Jr. [facility] Start: 01-04-2022 End: 01-04-2022 Patient encounter procedure Saeed Cantu Jr. [facility] Procedures Date Procedure Procedure Detail Performing Clinician Start: 10-08-2024 Arthrocentesis aspir &/inj major jt/bursa w/o us Osmin Anthony MD Work Phone: Start: 06-11-2024 Arthrocentesis aspir &/inj major jt/bursa w/o us Osmin Anthony MD Work Phone: Start: 06-11-2024 Follow-up visit Follow-up UNIQUE ANTHONY Start: 05-29-2024 Colonoscopy Shawanda GREER Start: 11-02-2023 Arthrocentesis aspir &/inj major jt/bursa w/o us Osmin Anthony MD Work Phone: Start: 06-15-[address] FABIÁN HENDRICKSON . Comment on above: Performed By: #### T ESTTOT #### [facility] [address] [place] [address] Dr. Reuben Morrison Start: 03-07-[address] FABIÁN HENDRICKSON . Comment on above: Performed By: #### I BLAIR, PSASC, VITB12, VITAD #### [facility] [address] [place], [place] [id number] Dr. Reuben Morrison Start: 12-21-2016 Cystourethroscopy wi th dilation of urethral stricture Saeed Cantu Jr. Start: 08-25-2009 Colonoscopy Shawanda GREER Arthroplasty of knee Saeed Cantu JrMark Comment on above: Left side Arthroscopy of shoulder Jesus MEJIA Cardioversion Shawanda MEJIA Cervical arthrodesis Shawanda MEJIA Hernia repair Saeed crawfordMark Repair of left ingui nal hernia Shawanda MEJIA Repair of musculoten dinous cuff of shoulder Saeed Cantu JrMark Transesophageal echocardiography Shawanda MEJIA Plan of Treatment Date Care Activity Detail Author Start: 09-04-2031 DTaP,Tdap and Td Vaccines (2 - Tdap) DTaP,Tdap and Td Vaccines (2 - Tdap) [facility] Start: 09-04-2031 Urine microalbumin profile DTAP,TDAP,TD (2 - Tdap) [facility] Start: 06-15-2027 PROSTATE CANCER SCREENING DISCUSSION PROSTATE CANCER SCREENING DISCUSSION [facility] Start: 11-30-2025 Lipid panel Cholesterol [facility] Start: 07-15-2025 End: 07-15-2025 Patient encounter procedure 07/15/2025 3:00 PM EDT Office Visit [facility] [address] [place] [id number] Sage Cam, [address] [place] [id number] [facility] [address] Start: 06-11-2025 Adult BMI Screening Adult BMI Screening [facility] Start: 06-11-2025 Tobacco Screening Tobacco Screening [facility] Start: 06-11-2025 End: 06-11-2025 Patient encounter procedure 06/11/2025 10:30 AM EDT Office Visit [facility] [address] [place] [id number] Román Hoang MD [address] [place] [address] [facility] Start: 11-02-2024 Adult BMI Screening Adult BMI Screening [facility] Start: 11-02-2024 Tobacco Screening Tobacco Screening [facility] Start: 07-17-2024 End: 07-17-2024 Patient encounter procedure 07/17/2024 2:30 PM EDT Office Visit [facility] [address] [place] [address] Sage Cam, [address] [place] [address] [facility] [address] Start: 06-12-2024 End: 06-12-2025 Thyrotropin [Units/volume] in Serum or Plasma TSH Lab Routine Sarah's disease (CMS/HCC) Expected: 06/12/2024 (Approximate), Expires: 06/12/2025 [facility] Comment on above: Expected: 06/12/2024 (Approximate), Expi res: 06/12/2025 Start: 06-12-2024 End: 06-12-2025 Thyroxine (T4) free [Mass/volume] in Serum or Plasma T4, free Lab Routine Sarah's disease (CMS/HCC) Expected: 06/12/2024 (Approximate), Expires: 06/12/2025 [facility] Comment on above: Expected: 06/12/2024 (Approximate), Expi res: 06/12/2025 Start: 06-12-2024 End: 06-12-2025 Triiodothyronine (T3) Free [Mass/volume] in Serum or Plasma T3, free Lab Routine Sarah's disease (CMS/HCC) Expected: 06/12/2024 (Approximate), Expires: 06/12/2025 [facility] Work Phone: Comment on above: Expected: 06/12/2024 (Approximate), Expi res: 06/12/2025 Start: 05-26-2024 COVID-19 Vaccine () COVID-19 Vaccine () [facility] Start: 05-26-2024 COVID-19 Vaccine ( season) COVID-19 Vaccine ( season) [facility] Start: 05-26-2024 Influenza vaccination [facility] Start: 02-22-2024 Fall Risk Screening Fall Risk Screening [facility] Start: 02-22-2024 Pneumococcal Vaccine: 65+ Years (1 of 1 - PCV) Pneumococcal Vaccine: 65+ Years (1 of 1 - PCV) [facility] Start: 05-26-2023 COVID-19 Vaccine ( season) COVID-19 Vaccine ( season) [facility] Start: 05-26-2023 Influenza vaccination INFLUENZA (#1) [facility] Start: 09-25-2022 DEPRESSION ASSESSMENT DEPRESSION ASSESSMENT [facility] Start: 09-20-2022 COVID-19 Vaccine (5 - Booster for Pfizer series) COVID-19 Vaccine (5 - Booster for Pfizer series) [facility] Start: 09-20-2022 COVID-19 VACCINE (5 - Pfizer series) COVID-19 VACCINE (5 - Pfizer series) [facility] Start: 07-19-2022 End: 07-19-2022 Patient encounter procedure 07/19/2022 Office Visit Physical Medicine & Rehab/PM&R Jovita Virk MD [address] [place] [id number] [facility] [place] [facility] Start: 06-25-2022 Influenza vaccination Influenza Vaccine (#1) [facility] Start: 05-31-2022 Shingles (RZV) Vaccine (2 of 2) Shingles (RZV) Vaccine (2 of 2) [facility] Start: 01-19-2022 COVID-19 Vaccine (4 - Booster for Pfizer series) COVID-19 Vaccine (4 - Booster for Pfizer series) [facility] Start: 11-15-2021 COVID-19 Vaccine (4 - Booster for Pfizer series) COVID-19 Vaccine (4 - Booster for Pfizer series) [facility] Start: 09-05-2021 Lipid panel Cholesterol [facility] Start: 12-04-2020 DIABETES SCREEN DIABETES SCREEN [facility] Start: 2019 Hepatitis B (HBV) Vaccine (optional start 60+ years) Hepatitis B (HBV) Vaccine (optional start 60+ years) [facility] Start: 2019 RSV vaccine (optional 60+ years) RSV vaccine (optional 60+ years) [facility] Start: 11-23-2014 Annual wellness visit Annual Wellness Visit ([id number]) [facility] Start: 06-10-2012 Thyroid stimulating hormone measurement TSH [facility] Start: 2009 Measurement of occult blood in single stool specimen FIT [facility] Start: 2009 Screening for malignant neoplasm of colon CRC Screening [facility] Start: 2009 Shingles (RZV) Vaccine (1 of 2) Shingles (RZV) Vaccine (1 of 2) [facility] Start: 02-22-2004 COLOGUARD (FIT-DNA) COLOGUARD (FIT-DNA) [facility] Start: 02-22-2004 Colonoscopy COLONOSCOPY [facility] Start: 02-22-2004 COLORECTAL CANCER SCREENING COLORECTAL CANCER SCREENING [facility] Start: 02-22-[address] COLONOGRAPHY [facility] Start: 02-22-2004 FECAL OCCULT BLOOD FECAL OCCULT BLOOD [facility] Start: 02-22-2004 Screening for malignant neoplasm of colon [facility] Start: 02-22-2004 SIGMOIDOSCOPY SIGMOIDOSCOPY [facility] Start: 1994 LIPID SCREEN LIPID SCREEN [facility] Start: 1978 Hepatitis A (HAV) Vaccine (optional start 19+ years) Hepatitis A (HAV) Vaccine (optional start 19+ years) [facility] Start: 1977 Adult BMI Follow Up Plan Adult BMI Follow Up Plan [facility] Start: 1977 ANNUAL PCP TEAM CHRONIC DISEASE VISIT ANNUAL PCP TEAM CHRONIC DISEASE VISIT [facility] Start: 1977 Hepatitis C screening Hepatitis C Antibody [facility] Start: 1977 HEPATITIS C SCREENING HEPATITIS C SCREENING [facility] Start: 1977 HIV SCREENING HIV SCREENING [facility] Start: 1977 SPIROMETRY SPIROMETRY [facility] Start: 1977 Tetanus + diphtheria + acellular pertussis vaccine (product) Tdap Booster [facility] Start: 1974 HIV screening HIV Test [facility] Start: 1971 Depression Screening Depression Screening [facility] Start: 1965 PNEUMOCOCCAL (1 - PCV) PNEUMOCOCCAL (1 - PCV) [facility] Start: 1959 Medicare Annual Wellness Visit Medicare Annual Wellness Visit [facility] Start: 1960 Screening for malignant neoplasm of colon [facility] Immunizations Immunization Date Immunization Notes Care Provider [facility] 08-10-2023 influenza virus vaccine, unspecified formulation Shawanda MEJIA [facility] [place] 08-10-2023 Influenza, injectabl e, Madin [place] Canine Kidney, preservative free, quadrivalent [facility] Work Phone: 08-29-2022 zoster vaccine recombinant Shawanda Hernandez PA-C Work Phone: [facility] 07-26-2022 Moderna Monovalent (12+ yrs) COVID-19 vaccine, mRNA, spike protein, LNP, PF, 100 mcg/0.5 mL (FUL=061) [facility] 07-25-2022 Influenza, injectabl e, Madin [place] Canine Kidney, preservative free, quadrivalent Jovita Virk MD Work Phone: [facility] 04-05-2022 zoster vaccine recombinant Jovita Virk MD Work Phone: [facility] 09-20-2021 SARS-CoV-2 (COVID-19 ) mRNA BNT-162b2 vax Shawanda MEJIA [facility] [place] 09-04-2021 diphtheria, tetanus toxoids and pertussis vaccine Jovita Virk MD Work Phone: [facility] 08-25-2021 SARS-CoV-2 (COVID-19 ) Ad26 vaccine, recombinant Saeed Cantu Jr. [facility] 08-10-2021 influenza, injectabl e, quadrivalent, preservative free Jovita Virk MD Work Phone: [facility] 08-10-2021 influenza virus vaccine, unspecified formulation Jovita Virk MD Work Phone: [facility] 06-25-2021 influenza virus vaccine, unspecified formulation Saeed Cantu Jr. [facility] 12-22-2020 Pfizer (12+ yrs) SARS-COV-2 (COVID-19) vaccine, mRNA, spike protein, LNP, pres. free, 30 mcg/0.3mL dose (BVY=916) Jovita Vrik MD Work Phone: [facility] 11-30-2020 Pfizer (12+ yrs) SARS-COV-2 (COVID-19) vaccine, mRNA, spike protein, LNP, pres. free, 30 mcg/0.3mL dose (FWY=882) Jovita Virk MD Work Phone: [facility] 08-25-2020 influenza virus vaccine, unspecified formulation Saeed Cantu Jr. [facility] 06-30-2020 influenza, injectabl e, quadrivalent, preservative free Jovita Virk MD Work Phone: [facility] 12-25-2019 SARS-CoV-2 (COVID-19 ) mRNA BNT-162b2 vax Saeed Cantu Jr. [facility] 11-24-2019 SARS-CoV-2 (COVID-19 ) mRNA BNT-162b2 vax Saeed Cantu Jr. [facility] Payers Date Payer Category Payer Self-pay 2023 Unknown [id number] 2022 [facility] [place] [id number] 2022 [employer] Blue Josefina ld Managed Care - PPO ANTHEM [id number] 2022 Unknown [id number] 2017 Unknown [id number] 2017 Unknown [id number] 2013 Medicare [id number] 1960 Medicare [id number] 1960 Self-pay [id number] 1959 Unknown [id number] 2.16.840.1.315809.3.579.2. 593 1959 Unknown [id number] 2.16.840.1.585788.3.579.2. 593 1959 Unknown [id number] 2.16.840.1.085771.3.579.2. 593 1959 Unknown [id number] 2.16.840.1.626068.3.579.2. 593 1959 Unknown [id number] 2.16.840.1.181757.3.579.2. 59 1959 Unknown [id number] 2.16.840.1.293013.3.579.2. 59 1959 Unknown [id number] 2.16.840.1.086969.3.579.2. 59 1959 Unknown [id number] 2.16.840.1.931201.3.579.2. 59 1959 Unknown [id number] 2.16.840.1.759382.3.579.2. 59 1959 Unknown [id number] 2.16.840.1.229742.3.579.2. 59 1959 Unknown [id number] 2.16.840.1.565012.3.579.2. 593 1959 Unknown [id number] 2.16.840.1.150160.3.579.2. 1259 1959 Unknown [id number] 2.16.840.1.986236.3.579.2. 1259 1959 Unknown [id number] 2.16.840.1.658734.3.579.2. 1286 1959 Unknown [id number] 2.16.840.1.147639.3.579.2. 128 1959 Unknown [id number] 2.16.840.1.219671.3.579.2. 128 1959 Unknown [id number] 2.16.840.1.851299.3.579.2. 727 1959 Unknown [id number] 2.16.840.1.447522.3.579.2. 727 1959 Unknown [id number] 2.16.840.1.537999.3.579.2. 727 1959 Unknown [id number] 2.16.840.1.377197.3.579.2. 72 1959 Unknown [id number] 2.16.840.1.722969.3.579.2. 72 1959 Unknown [id number] 2.16.840.1.156622.3.579.2. 727 Private Health Insurance [facility] [id number] Unknown [id number] 2.16.840.1.568212.3.579.2. 593 Unknown [facility] Netk Access [id number] Unknown [id number] 2.16.840.1.036241.3.579.2. 531 Social History Date Type Detail Facility Start: 10-05-2021 End: 10-21-2024 Tobacco smoking status Never smoked tobacco (finding) [facility] Tobacco smoking status Never [facility] Start: 11-05-2020 End: 04-26-2023 Sex Assigned At Male [facility] Start: 08-24-2011 End: 07-17-2024 Tobacco use and exposure Smokeless tobacco non-user [facility] Start: 12-07-2017 End: 08-12-2022 Alcohol intake Not Asked [facility] Start: 1960 Sex Assigned At Not on file [facility] Start: 08-12-2022 History SDOH Social Connections Phone 1 [facility] Start: 08-12-2022 History SDOH Social Connections Get Together 2 [facility] Start: 08-12-2022 History SDOH Social Connections Sabianism 98 [facility] Start: 08-12-2022 [facility] Start: 04-26-2023 End: 06-11-2024 Alcohol intake Current drinker of alcohol (finding) [facility] Start: 11-05-2020 End: 04-26-2023 History of Social function [facility] Start: 12-04-2017 [facility] Start: 1960 Sex Assigned At Male [facility] How often to you hav e a drink containing alcohol? Monthly or less [facility] How many standard drinks containing alcohol do you have on a typical day? 1 or 2 [facility] How often do you hav e 6 or more drinks on 1 occasion? Weekly [facility] Start: 04-30-2015 Sex [facility] (finding[facility] Start: 08-23-2021 Gender identity Identifies as male gender (finding) [facility] Medical Equipment Procedure Code Equipment Code Equipment Origin al Text Equipment Identifier Dates Brng Tib [id number] mm 0d Kn Ant - [id number] Start: 09-05-2016 Cement Bn Palaco s Radpq 40g Rpl [id number] - [id number] Start: 09-05-2016 Ty Tib 79mm Cocr Kn I Beam - [id number] Start: 09-05-2016 Cmpt Fem Kn Lt 7 0mm Cr Cmnt - [id number] Start: 09-05-2016 Cmpt Ptlr Thn 34 mm 3 Pg Kn Ser - [id number] Start: 09-05-2016 Goals Date Patient Goal Desired Activity /State Personal health goal Comment on above: Formatting of this n ote might be different from the original. Evaluation of progress towards goal: Maximize work with PT at discharge to strengthen L knee Functional Status Date Assessment Result Facility 10-21-2024 Functional Status N/A [facility] 08-13-2024 Functional Status N/A [facility] [place] 05-07-2024 Functional Status N/A [facility] [place] 10-16-2023 Functional Status N/A [facility] 06-12-2023 Functional Status N/A [facility] 12-02-2022 Functional Status N/A [facility] Clinical Notes 04-07-2022 to 01-21-2025 Osmin Anthony MD - 10/08/2024 2:30 PM Marco Antonio Cam DO - 07/17/2024 2:30 PM Vin Hoang MD - 06/12/2024 10:30 AM EDTChsaulo Anthony MD - 06/11/2024 11:00 AM EDT Note Date & Type Note Facility 01-21-2025 Note [facility] Cardiology Clinic Note Chief Complaint: Patient here for follow up 6 month. Patient states he is feeling good. Patient denies chest pain, SOB, palpitations, heart racing, or leg swelling. Patient states he has no complaints at this time. would like results of kidney function. HPI: ODILON Lacey is a 64 y.o. male 12/26/23 patient underwent atrial fibrillation ablation on 11/16/2023. his amiodarone was stopped post ablation and subsequently he had an episode of what appeared to be atrial flutter. at this time he was started on amiodarone for maintenance of sinus rhythm in the blanking period. He is doing well and has bradycardia 01/21/2025: Doing well. No new symptoms. Had switched from hydralazine to lisinopril given the dosing. Cardiology ROS: Review of Systems Cardiovascular: Negative for dyspnea on exertion. All other systems reviewed and are negative. Past Medical History He has a past medical history of Abnormal ECG, Arrhythmia, Atrial fibrillation (CMS/HCC), Heart valve disease, Hypertension, Hypothyroidism, and Sleep apnea. Surgical History He has a past surgical history that includes Replacement total knee oncologic; Back surgery; Shoulder surgery; Hernia repair; and Ablation of dysrhythmic focus. Social History He reports that he has never smoked. He has never used smokeless tobacco. He reports current alcohol use. No history on file for drug use. Family History Family History Problem Relation Name Age of Onset Cancer Mother Diabetes Mother Coronary artery disease Father Stroke Father Cancer Father Allergies Patient has no known allergies. Medications Current Outpatient Medications: apixaban (Eliquis) 5 mg tablet, Take 1 tablet (5 mg) by mouth two times daily., Disp: 180 tablet, Rfl: 3 cholecalciferol (D3-5) 5,000 Units tablet, Take 5,000 Units by mouth in the morning., Disp: , Rfl: levothyroxine (Synthroid, Levoxyl) 150 mcg tablet, Take 1 tablet (150 mcg) by mouth before breakfast., Disp: 30 tablet, Rfl: 0 lisinopril 5 mg tablet, Take 1 tablet (5 mg) by mouth once daily as directed., Disp: 90 tablet, Rfl: 3 tamsulosin (Flomax) 0.4 mg 24 hr capsule, Take 1 capsule every day by oral route for 90 days., Disp: , Rfl: vitamin B complex 130-0-109-2-2 mg/mL injection, Inject into the shoulder, thigh, or buttocks every 30 (thirty) days. Last dose 10/27/23, Disp: , Rfl: amantadine (Symmetrel) 100 mg capsule, Take 1 capsule every day by oral route for 30 days., Disp: , Rfl: amiodarone (Pacerone) 200 mg tablet, Take 2 tablets (400 mg) by mouth in the morning and at bedtime for 14 days, THEN 1 tablet (200 mg) once daily as directed. (Patient not taking: Reported on 02/07/2024), Disp: 146 tablet, Rfl: 0 famotidine (Pepcid) 20 mg tablet, Take 1 tablet (20 mg) by mouth in the morning and at bedtime for 58 doses. (Patient not taking: Reported on 07/16/2024), Disp: 58 tablet, Rfl: 0 hydrALAZINE (Apresoline) 25 mg tablet, Take 1 tablet (25 mg) by mouth three times daily. (Patient not taking: Reported on 01/21/2025), Disp: 270 tablet, Rfl: 3 liothyronine (Cytomel) 25 mcg tablet, Take 0.5 tablets by mouth in the morning., Disp: , Rfl: pantoprazole (ProtoNix) 40 mg EC tablet, Take 1 tablet (40 mg) by mouth before breakfast and before evening meal for 59 doses. Do not crush, chew, or split., Disp: 59 tablet, Rfl: 0 Last Recorded Vitals BP 145/85 (BP Location: Right arm, Patient Position: Sitting) Pulse (!) 45 Ht 1.676 m (5' 6 ) Wt 86.2 kg (190 lb) SpO2 100% BMI 30.67 kg/m??? Physical Examination: GENERAL: alert and oriented [...] ischemia. Ejection fraction is normal. Transesophageal Echocardiogram-[facility] Name: VIANEY LACEY Study Date: 07/11/2023 12:24 PM B/P: 104 mmHg/74 mmHg HR: Date of : 1960 Location: [facility] Height: 68 in. Age: 63 year(s) Patient Room : Weight: 189 lb. Gender: Male Patient Status: OutPt BSA: 2 m2 Indication: Atrial Fibrillation, Pre-Cardioversion Examination: JAMIN (Transesophageal Echo / CFI) Image Quality: Good Patient Consent: Informed, written consent was obtained for the procedure s p @ c 3 Exam Location (more content not included)... [facility] 10-21-2024 Hospital Discharge instructions Patient Education 10/21/2024 [...] urethra. Follow these instructions at home: Take fffc-slz-zultwvn and prescription medicines only as told by [...] provider. Document Revised: 03/30/2022 Document Reviewed: 03/30/2022 [employer] Patient Education 2023 Tapactive. Follow Up Care 10/16/2023 14:07:51 With:HERRERA PRIETO, Vianey Crawford, URL Address: [facility] [address] , [place] [id number] When: Unknown Comments:1 yr w/ PSA and T level [facility] [place] 10-21-2024 Note Patient Education Urology Benign [...] Follow these instructions at home: ??? Take bzki-utp-ifpqilo and prescription medicines only as told by [...] do not get (more content not included)... [facility] 10-08-2024 History of Present illness Narrative [...] evaluated the patient today with my physician human services assistant and agree with all aspects of [...] via procedure documentation documented in this encounter [facility] 08-13-2024 Note General Surgery Offi ce/Clinic Note Chief Complaint consultation for foreign body HPI Staff 64 year old male presents on consultation from Dr. Hendrickson for foreign body left thumb. History of [...] SARS-CoV-2 (COVID-19) mRNA BNT-162b2 vax 11/2019 Recorded [facility] Comment on above: Result Comment: Elec tronically Signed By: Shawanda MEJIA MD\Date and Time Signed: 08/13/24 21:11 EST 07-17-2024 [...] apnea) Hypersomnia Snoring Atrial fibrillation, unspecified type ([facility]/HCC) Sleep deprivation 64 year old male with [...] was counseled on the risks of stroke, [place], and sudden with NANCY, along with the [...] clinic: 2 months documented in this encounter [facility] 07-16-2024 Note [facility]rophys[facility] Consult Note Reason [...] Box isolaton+ 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 2. Atrial flutter s/p [...] function. He is also recently seen a sand buffer. They are weaning of amantadine which was [...] Year: No Utilities: Not At Risk (11/16/2023) [facility] Utilities Threatened with loss of utilities: [...] route for 90 days. vitamin B complex 579-9-167-2-2 mg/mL injection Inject into the shoulder, thigh, [...] as directed. (Pa (more content not included)... [facility] 06-12-2024 History of Present illness Narrative Vianey [...] year (around 06/12/2025). documented in this encounter [facility] 06-11-2024 History of Present illness Narrative Associated [...] evaluated the patient today with my physician human services assistant and agree with all aspects of [...] via procedure documentation documented in this encounter [facility] 05-07-2024 Note General Surgery Offi ce/Clinic Note Chief Complaint consultation for colonoscopy HPI Staff 64 year old male presents on consultation from Dr. Hendrickson for screening colonoscopy. Denies abdominal or rectal [...] prior to procedure. 2. 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 [facility] Comment on above: Result Comment: Elec tronically Signed By: ROBERTO PRIETO, Shawanda Young\Date and Time Signed: 05/07/24 15:50 EDT 02-07-2024 Note [facility] Cardiology Clinic Note Chief Complaint: [...] days., Disp: , Rfl: vitamin B complex 365-6-166-2-2 mg/mL injection, Inject into the shoulder, thigh, [...] ischemia. Ejection fraction is normal. Transesophageal Echocardiogram-[facility] Name: VIANEY LACEY Study Date: 07/11/2023 12:24 PM B/P: 104 mmHg/74 mmHg HR: Date of : 1960 Location: [facility] Height: 68 in. Age: 63 year(s) Patient Room : Weight: 189 lb. Gender: Male Patient Status: OutPt BSA: 2 m2 Indication: Atrial Fibrillation, Pre-Cardioversion Examination: JAMIN (Transesophageal Echo / CFI) Image Quality: Good Patient Consent: Informed, written consent was obtained for the procedure s p @ c 3 Exam Location: A JAMIN was performed in the Turret Lathe Set Up Operator without complications s p @ c 3 [...] mitral regurgitation. Tric (more content not included)... [facility] 11-02-2023 History of Present illness Narrative Associated [...] evaluated the patient today with my physician human services assistant and agree with all aspects of [...] via procedure documentation documented in this encounter [facility] 10-16-2023 Hospital Discharge instructions Patient Education 10/16/2023 [...] provider. Document Revised: 01/20/2022 Document Reviewed: 01/20/2022 [employer] Patient Education 2022 Tapactive. Follow Up Care 07/31/2023 10:30:59 With:HERRERA PRIETO, Vianey Crawford, URL Address: [facility] [address], [place] [address]- When:Within 1 Year(s) Comments:w/PSA [facility] 07-27-2023 Evaluation note Encounter Date Diagnosis [...] advised him to avoid NSAIDs or any larx-oit-ogzgt er supplements. This deanna with the importance [...] - G47.33) Continue follow-up with the specialist. [facility] Other 10-17-2023 History general Narrative - Reported* Type Description Date Medical History FATIGUE Medical History EDEMA Surgical History CARDIO VERSION 07/11/2023 Surgical History LEFT KNEE REPLACEMENT Surgical History C5-C6 PLATE AND SCREWS Surgical History DOUBLE HERNIA REPAIR Surgical History RIGHT SHOULDER SCOPE Surgical History COLONOSCOPY Surgical History CYSTO SCOPE Hospitalization History SEE ABOVE Inter[facility] Other [id number] Hospital Discharge instructions Patient Education 06/12/2023 13:16:00 [...] therapy. Follow these instructions at home: Take ovfc-mxc-iypekmp and prescription medicines only as told by [...] provider. Document Revised: 05/13/2021 Document Reviewed: 05/13/2021 [employer] Patient Education 2022 Tapactive. Follow Up Care 05/04/2023 10:34:04 With:HERRERA PRIETO Vianey Crawford, URL Address: [facility] [address], [place] [id number]- [phone] When:Within 6 Month(s) Comments:w/Testosterone Level, PSA and CBC [facility] [place] 08-02-2023 NoteHNO ID: [id number] Author: Shawanda Hernandez PA-C Service: ? Author Type: Physician Delivery Helper Type: Progress Notes Filed: 04/26/2023 11:40 AM [...] Full Oblique Extension With (more content not included)...[facility] 04-26-2023 History of Present illness Narrative* Shawanda [...] Cervical disc disease CVA (cerebral vascular accident) ([facility]) due to head trauma Dysarthria [...] 2023 TIME: 11:15 AM [facility] Discharge instructions Patient Education 12/02/2022 [...] urethra. Follow these instructions at home: Take ygvy-vxe-vdrqqsh and prescription medicines only as told by [...] 09/11/2006 Document Revised: 08/06/2019 Document Reviewed: 10/16/2017 [employer] Patient Education 2020 Tapactive. Follow Up Care 11/01/2022 10:29:54 With:HERRERA PRIETO, Vianey Crawford, URL Address: [address] [place] [address] [place] [address]- When: Unknown [facility] [place] 11-18-2022 History of Present illness Narrative* Aarti Kelsey MA, SHANNAN, COMM[employer]CIAL [employer] RETROFIT ARCHITECT - 08/12/2022 12:27 PM EST SPEECH LANGUAGE [...] should already be in the system. COMMERCIAL GREEN RETROFIT ARCHITECT was speaking with patient's spouse via phone conversation attempting to troubleshoot and bypass the preliminary questionnaires. However, it was unsuccessful. COMMERCIAL GREEN RETROFIT ARCHITECT sent patient's spouse a direct link to her cell phone to connect to video visit and the same issues arose. Patient was connected to Wifi and using an iPad in home setting. The iPad did not successfully pass the hardware test and patient/patient's spouse were never able to successfully log on. COMMERCIAL GREEN RETROFIT ARCHITECT provided patient/patient's spouse the [facility] Support Team's contact information to reach out for further assistance with log on issues. COMMERCIAL GREEN RETROFIT ARCHITECT will e-mail patient's spouse/patient information regarding memory strategies, etc to help in the home setting (patient's spouse reported patient tends to misplace belongings, such as keys, etc and could use a refresher on the strategies. Patient's spouse stated she will take a look at the strategies and go from there with scheduling anything further. COMMERCIAL GREEN RETROFIT ARCHITECT provided patient/spouse with our direct line to [facility] Therapy dept if she has any further questions/concerns or needs to schedule. Patient left without being seen this date. Electronically signed by Aarti Kelsey MA, SHANNAN, COMMERCIAL GREEN RETROFIT ARCHITECT at 08/12/2022 12:28 PM EST documented in this [id number] Instructions* Patient Instructions* Jovita Virk MD - 07/20/2022 2:49 PM EDT -Get the sleep apnea addressed -Hold amantadine -Add memantine 5mg daily. -External referral for brain MRI. -Speech therapy for cognitive strategies. -R knee surgery. -F/up 1 year, sooner if needed. documented in this [id number] History of Present illness Narrative* Jovita Virk [...] 200 mg into the muscle once amonth. 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 Last available brain imaging [id number] showed ventriculomegaly that was deemed not hydrocephalus [...] Risk protocol implemented: No documented in this [id number] Telephone encounter Note* Telephone Encounter - Renetta [...] PCP on file No PCP on file [id number] Miscellaneous Notes* Telephone Encounter - Renetta Boyer [...] Date:02/01/2022 10:00:00 AM Scheduled Provider: Location:[facility] Appointment Type:URO Nurse Visit Appointment Date:03/01/2022 09:00:00 AM Scheduled Provider:Saeed Cantu Jr., MD Location:[facility] Appointment Type:URO Office Visit Appointment Date:04/05/2022 11:15:00 AM Scheduled Provider:Saeed Cantu Jr., MD Location:[facility] Appointment Type:URO Office Visit [facility] evaluation + Plan note Future Appointments Appointment Date:03/01/2022 09:00:00 AM Scheduled Provider:Saeed Cantu Jr., MD Location:[facility] Appointment Type:URO Office Visit Appointment Date:04/05/2022 11:15:00 AM Scheduled Provider:Saeed Cantu Jr., MD Location:[facility] Appointment Type:URO Office Visit [facility] evaluation + Plan note Future Appointments Appointment Date:04/05/2022 11:15:00 AM Scheduled Provider:Saeed Cantu Jr., MD Location:[facility] Appointment Type:URO Office Visit Diagnostic Tests Pending * Testosterone Level Total 03/01/22 [facility] evaluation + Plan note Future Appointments Appointment Date:07/11/2022 10:15:00 AM Scheduled Provider: Location:[facility] Appointment Type:URO Nurse Visit [facility] evaluation + Plan note Future Appointments Appointment Date:09/07/2022 10:00:00 AM Scheduled Provider: Location:[facility] Appointment Type:URO Nurse Visit [facility] evaluation + Plan note Future Appointments Appointment Date:10/05/2022 10:00:00 AM Scheduled Provider: Location:[facility] Appointment Type:URO Nurse Visit [facility] evaluation + Plan note Future Appointments Appointment Date:11/01/2022 10:00:00 AM Scheduled Provider: Location:[facility] Appointment Type:URO Nurse Visit [facility] evaluation + Plan note Future Appointments Appointment Date:11/30/2022 10:00:00 AM Scheduled Provider:Taylor Joshua MD Location:[facility] Appointment Type:URO Office Visit Diagnostic Tests Pending * CBC w/ Auto Diff 11/01/22 * Testosterone Level Total 11/01/22 [facility] evaluation + Plan note Diagnostic Tests Pending * Testosterone Level Total 12/17/22 * Testosterone Level Total 04/25/23 [facility] evaluation + Plan note Future Appointments Appointment Date:04/05/2023 10:00:00 AM Scheduled Provider: Location:[facility] Appointment Type:URO Nurse Visit [facility] evaluation + Plan note Future Appointments Appointment Date:05/30/2023 10:00:00 AM Scheduled Provider: Location:[facility] Appointment Type:URO Nurse Visit [facility] evaluation + Plan note Future Appointments Appointment Date:07/10/2023 09:30:00 AM Scheduled Provider: Location:[facility] Appointment Type:URO Nurse Visit Appointment Date:11/27/2023 09:45:00 AM Scheduled Provider:Vianey MENDOZA MD Location:[facility] Appointment Type:URO Office Visit Diagnostic Tests Pending * Testosterone Level Total 06/12/23 * PSA Total 06/12/23 * CBC w/ Auto Diff 06/12/23 [facility] evaluation + Plan note Future Appointments Appointment Date:10/21/2024 10:15:00 AM Scheduled Provider:Vianey MENDOZA MD Location:[facility] Appointment Type:URO Office Visit Diagnostic Tests Pending * PSA Total 10/16/23 [facility] evaluation + Plan note Future Appointments Appointment Date:10/21/2024 10:15:00 AM Scheduled Provider:Vianey MENDOZA MD Location:[facility] Appointment Type:URO Office Visit [facility] Evaluation + Plan note Future Appointments Appointment Date:10/27/2025 10:30:00 AM Scheduled Provider:Vianey MENDOZA MD Location:[facility] Appointment Type:URO Office Visit Diagnostic Tests Pending * PSA Total 10/21/24 * Testosterone Level Total 1/27/25 [facility] evaluation note* 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 Body mass index (BMI) 28.0-28.9, adult [facility] Height loss- Primary Loss of height [facility] noteNo assessment information available[facility] Work Phone: Evaluation note* Diagnosis Onset Date Resolution Status BPH (benign prostatic hyperplasia) acute CKD (chronic kidney disease) stage 2, GFR 60-89 ml/min acute [id number] acute NANCY (obstructive sleep apnea) acute Renal cyst acute [facility] Work Phone: Evaluation note* Diagnosis NANCY (obstructive sleep apnea)- Primary Obstructive sleep apnea (adult) (pediatric) Hypersomnia Hypersomnia, unspecified Snoring Other dyspnea and respiratory abnormality Atrial fibrillation, unspecified type (CMS/HCC) Sleep deprivation Problems related to lack of adequate sleep documented in this encounter 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* Diagnosis Primary osteoarthritis of right knee- Primary [facility] Diagnosis Primary osteoarthritis of right knee- Primary [facility] Diagnosis Primary osteoarthritis of right knee- Primary [facility] Narrative No data available for this section [facility] Hospital Discharge instructions No data available for this section [facility] InstructionsNot on filedocumented in this encounter [facility] filedocumented in [facility] No data available for this section [facility] Advance Directives No Advanced Directives Records [...] of brain injury (HCC) Jovita Virk MD [address] [place] [address] Referral ID Status Reason Start Date Expiration Date Visits Requested Visits Authorized [id number] Authorized Patient Preference 2 07/20/2023 3 3 Comments Brain MRI without contrast. H/o TBI 2010. Continues to struggle with cognitive deficits, fatigue, impaired balance, unimproved. Please evaluate for other structural causes of these issues. Fax report to me at [phone]. Specialty Diagnoses / Procedures Referred By Contdoug t Referred To Contact Speech Pathology Diagnoses Cognitive changes Late effect of brain injury (HCC) Jovita Virk MD [address] [place] [phone] [place] [address] Referral ID Status Reason Start Date Expiration Date Visits Requested Visits Authorized [id number] Pending Review [facility] 2 07/20/2023 10 10 Question Answer [...] kidney disease) stage 2, GFR 60-89 ml/min [id number] NANCY (obstructive sleep apnea) Renal cyst Additional [...] Care Teams (unrecognized sec tion and content) Commercial Real Estate Assistant Relationship Specialty Start Date End Date Jovita Virk MD [address], [place] Physician Physical Medicine & Rehab/PM&R 06/30/20 Commercial Real Estate Assistant Relationship Specialty Start Date End Date Jovita Virk MD [address], [place] Physician Physical Medicine & Rehab/PM&R 06/30/20 Commercial Real Estate Assistant Relationship Specialty Start Date End Date Jovita Virk MD [address], [place] Physician Physical Medicine & Rehab/PM&R 06/30/20 Commercial Real Estate Assistant Relationship Specialty Start Date End Date Ilda Hendrickson MD PCP - General Family Medicine 12/04/17 Team Status: Active Member Role Status Dates Ilda Hendrickson MD Primary Care Provider Active Team Status: Inactive Member Role Status Dates Ilda Hendrickson MD Primary Care Provider Active Start: April 05, 2024 End: April 05, 2024 Tracy Griffin MD Attending Provider Active St art: April 05, 2024 End: April 05, 2024 Team Status: Active Member Role Status Dates Ilda Hendrickson MD Primary Care Provider Active Start: June 03, 2024 Sandoval Knight MD Attending Provider Active Start : June 03, 2024 Team Status: Inactive Member Role Status Dates Ilda Hendrickson MD Primary Care Provider Active Start: June 06, 2024 End: June 06, 2024 Sandoval Knight MD Attending Provider Active Start : June 06, 2024 End: June 06, 2024 Commercial Real Estate Assistant Relationship Specialty Start Date End Date Ilda Hendrickson MD [address] [place] [address] PCP - General Family Medicine 05/13/24 Commercial Real Estate Assistant Relationship Specialty Start Date End Date Ilda Hendrickson MD [address] [place] [address] PCP - General Family Medicine 05/13/24 Commercial Real Estate Assistant Relationship Specialty Start Date End Date Ilda Hendrickson MD [address] [place] [address] PCP - General Family Medicine 05/13/24 Commercial Real Estate Assistant Relationship Specialty Start Date End Date Ilda Hendrickson MD [address] [place] [address] PCP - General Family Medicine 05/13/24 Commercial Real Estate Assistant Relationship Specialty Start Date End Date Ilda Hendrickson MD PCP - General 07/05/16 Commercial Real Estate Assistant Relationship Specialty Start Date End Date Ilda Hendrickson MD [address] [place] [address] PCP - General 07/05/16 Commercial Real Estate Assistant Relationship Specialty Start Date End Date Ilda Hendrickson MD PCP - General 07/05/16 (unrecognized sect ion and content) No Status Records FoundNo Status Records FoundNo Status Records FoundNo Status Records FoundNo Status Records FoundNo Status Records FoundNo Status Records FoundNo Status Records Found INFORMATION SOURCE (unrecogn ized section and content) DATE CREATED AUTHOR 01/27/2023 [facility] DATE CREATED AUTHOR AUTHOR'S ORGANIZ ATION 04/27/2023 [facility] DATE CREATED AUTHOR AUTHOR'S ORGANIZ ATION 09/23/2023 [facility] DATE CREATED AUTHOR AUTHOR'S ORGANIZ ATION 04/12/2024 [facility] DATE CREATED AUTHOR AUTHOR'S ORGANIZ ATION 07/19/2024 [facility] DATE CREATED AUTHOR AUTHOR'S ORGANIZ ATION 10/11/2024 [facility] DATE CREATED AUTHOR AUTHOR'S ORGANIZ ATION 10/23/2024 [facility] DATE CREATED AUTHOR AUTHOR'S ORGANIZ ATION 01/22/2025 [facility] Source Comments (unrecognize d section and content) In the event this informatio n is protected by the Federal Confidentiality of Alcohol and Drug Abuse Patient Records regulations: The Federal rules restrict any use of the information to criminally investigate or prosecute any alcohol or drug abuse patient.[facility] Goals (unrecognized section and content) Goals [...] BE BASED ON THE PRIMARY CLINICAL RECORDS. [facility] provides no warranty or guarantee of the accuracy or completeness of information in this document.
[2025-02-12 14:24] LABS: Anion Gap 11.7; Calcium 9.2 mg/dL (8.5-10.1); Carbon Dioxide 31.9 mmol/L (21.0-32.0); Chloride 102 mmol/L (98-107); Estimated GFR (African America >60 (>=60 mL/min/1.73m^2); Estimated GFR (Non-African Ame >60 (>=60 mL/min/1.73m^2); Glucose 77 mg/dL (74-106); Potassium 4.6 mmol/L (3.5-5.1); Sodium 141 mmol/L (136-145)
== END 2025-02-12 13:18 | disposition home or self-care (01) ==
LOC: CARD 13:17
PROVIDERS: PCP Family Medicine; Visit Provider Internal Medicine Interventional Cardiology
DX: I11.9 Hypertensive heart disease without heart failure (principal); I34.0 Nonrheumatic mitral (valve) insufficiency
CPT/HCPCS: 36415; 80048; 93306

== ENCOUNTER 2025-05-13 10:39 | Outpatient (OUT) | payer BC, MEDICARE, SELFPAY ==
--- NOTE | 2025-05-13 | XR_ITS ---
The [address] [address] Patient Name: VIANEY DAVIS MRN: [id number] date: 1960 Sex: M Assigned Patient Location: [facility] Current Patient Location: LAB Accession/Order Number: [id number] Exam Date: 05/13/2025 12:44 Report Date: 05/13/2025 12:45 At the request of: NIKITA BRIONES MD Procedure: XR pelvis 1-2V AP PELVIS: CLINICAL HISTORY: m25.561 Pain in right knee COMPARISON: None No fractures or dislocation.. Joint spaces of both hips appears grossly preserved. Degenerative facet arthropathy greatest on the right involving the lumbosacral junction. Mild to moderate degenerative changes sacroiliac joints. XR/XR pelvis 1-2V IMPRESSION: NO ACUTE BONY FINDINGS. Degenerative changes lumbosacral junction. Impression dictated by: Michael Arzate M.D. 05/13/2025 12:45 PM Dictation Location: [place] [address] Electronically authenticated by: [id number] Y Date: 05/13/2025 12:45
--- NOTE | 2025-05-13 | XR_ITS ---
[place] [id number] Patient Name: VIANEY DAVIS MRN: [id number] date: 1960 Sex: M Assigned Patient Location: [facility] Current Patient Location: [facility] Accession/Order Number: [id number] Exam Date: 05/13/2025 12:02 Report Date: 05/13/2025 12:04 At the request of: NIKITA BRIONES MD Procedure: XR knee RT 4V RIGHT KNEE 3 views CLINICAL HISTORY: m25.561 Pain in right knee COMPARISON: None FINDINGS: Anterior knee soft tissue swelling. Severe medial compartment and rpij-ld-qldaeklg patellofemoral marker and degenerative changes. Mild lateral compartment degenerative change. Calcific densities within the suprapatellar region question synovial. XR/XR knee RT 4V IMPRESSION: Anterior knee soft tissue swelling. Severe medial compartment degenerative changes. Impression dictated by: Michael Arzate M.D. 05/13/2025 12:04 PM Dictation Location: [place] [address] Electronically authenticated by: [id number] Y Date: 05/13/2025 12:04
--- OUTSIDE RECORDS SUMMARY | 2025-05-13 10:41 | XMS_ITS | Clinical Summary ---
Author Organization [facility] Address [address] [place] [address] Care Team Providers Care Financial Economist Name Role Phone Ryan Hendrickson MD Primary Care Provider [phone] Allergies No known active allergies Medications ibuprofen [...] ORAL) Take by mouth. 08/31/20 21 Active Atwood Aspartate 20 mg cap Take 1 capsule by mouth once daily. Active Vit [id number] 032-8-347-2-2 mg/mL soln Refill(s) 0 05/07/20 19 Active [...] is lower risk 8 04/26/2023 Data from: https://www.neighborhoodatlas.medicine.[facility]/. Last address used for calculation [address] [place] [address] 04/26/2023 Sex and Gender Information Value Date [...] Last Done Comments Annual PCP Team Chronic Disease Visit 1977 Anxiety Screening 1977 Depression Screening 1977 Hepatitis C Screening [address] Colonography 02/22/2004 Cologuard (FIT-DNA) 02/22/2004 Colonoscopy 02/22/2004 Colorectal Cancer Screening 02/22/2004 Fecal Occult Blood 02/22/2004 Sigmoidoscopy 02/22/2004 Pneumococcal Vaccine: 50+ (1 of 1 - PCV) 2009 RSV Vaccine (1 - Risk 60-74 years 1-dose series) 2019 Diabetes Screening 12/04/2020 12/04/2017 Advance Directive Discussion 09/25/2024 Influenza Vaccine (#1) 2025 2, 08/10/2021, 06/30/2020 Prostate Cancer Screening Discussion 06/15/202705/27, 03/07/2022 DTaP,Tdap,Td Vaccine (2 - Tdap) 09/04/2031 Shingrix Vaccine Completed 08/29/2022, 04/05/2022 Procedures Procedure Name Priority Date/Time Associated Diagnosis Comments BASIC METABOLIC PANEL Routine 12/04/2017 3:22 PM EDT Leukopenia, unspecified type Thrombocytopenia (HCC) Hypothyroidism, unspecified type from Last 3 Months or Most Recently Relevant to Health Maintenance Results * BASIC METABOLIC PNL (12/04/2017 3:22 PM EDT) [facility] Glucose 74 74 - 99 mg/dL 12/05/2017 10:[address] [facility] Comment: The [place] Diabetes Association (ADA) provides guidance for cutoff [...] Standards of Medical Care in Diabetes 2016, [place] [employer] Association. Diabetes Care. 2016.39(Suppl 1). BUN 21 9 - 24 mg/dL 12/05/2017 10:35 AM [facility] Creatinine 1.16 0.73 - 1.22 mg/dL 12/05/2017 10:35 AM [facility] Sodium 139 136 - 144 mmol/L 12/05/2017 10:35 AM [facility] Potassium 4.6 3.7 - 5.1 mmol/L 12/05/2017 10:35 AM [facility] Chloride 101 97 - 105 mmol/L 12/05/2017 10:35 AM [facility] CO2 23 22 - 30 mmol/L 12/05/2017 10:35 AM [facility] Anion Gap 15 9 - 18 mmol/L 12/05/2017 10:35 AM [facility] Calcium 10.1 8.5 - 10.2 mg/dL 12/05/2017 10:35 AM [facility] eGFR- >60 12/05/2017 10:35 AM [facility] eGFR-All Other Races >60 . 12/05/2017 10:35 AM [facility] Comment: eGFR (Estimated GFR) Units [...] 3:22 PM EDT 12/04/2017 3:24 PM EDT [facility] Final Result [facility] [address] [place] [address] from Last 3 Months or Most Recently Relevant to Health Maintenance Insurance MEDICARE Member Subscriber Plan / Payer (Ef fective 2013-Present) Name:Vianey Lacey Member ID:[id number] Relation to Subscriber:Self Name:AbhijitVianey Subscriber ID:[id number] Payer ID:Not on file Group ID:Not on file Type:Medicare Address: [facility] [place] [id number] ACCESS PPO Care Teams Financial Economist Relationship Specialty Start Date End Date Ryan Hendrickson MD PCP - General Family Medicine 12/04/17
--- OUTSIDE RECORDS SUMMARY | 2025-05-13 10:41 | XMS_ITS | Encounter Summary ---
Author Organization [facility] Address [address] [facility] [facility] [place] [address] Care Team Providers Care Superintendent Transmission Name Role Phone Ryan Hendrickson MD Primary Care Provider [phone] Encounter Details Date Type Department Care Team (Late st Contact Info) Description 06/12/2024 Orders Only [facility] [address] [place] [address] Román Dawson MD [address] [place] [address] Social History Tobacco Use Types Packs/Day Years [...] Description 06/11/2025 10:30 AM EDT Office Visit [facility] [address] [place] [address] Román Dawson MD [address] [place] [address] documented as of this encounter Procedures Procedure Name Priority Date/Time Associated Diagnosis Comments MISC TEST ([facility] TESTING ONLY) Routine 06/12/2024 11:04 AM EDT T3, FREE Routine 06/03/2024 9:17 AM EDT TSH Routine 06/03/2024 9:17 AM EDT T4, FREE Routine 06/03/2024 9:17 AM EDT documented in this encounter Results * MISC TEST ([facility] TESTING ONLY) (06/12/2024 11:04 AM EDT) Result [facility] Román Dawson MD LAB BLOOD ORDERABLES Final Re sult * T3, free (06/03/2024 9:17 AM EDT) Blood Venous blood specimen / Unknown Result [facility] us Román Dawson MD LAB BLOOD ORDERABLES Final Re sult * T4, free (06/03/2024 9:17 AM EDT) Blood Venous blood specimen / Unknown Result [facility] us Román Dawson MD LAB BLOOD ORDERABLES Final Re sult * TSH (06/03/2024 9:17 AM EDT) Blood Venous blood specimen / Unknown Result Arden Dawson MD LAB BLOOD ORDERABLES Final Re sult documented in this encounter Visit Diagnoses Not on filedocumented in this encounter Care Teams Superintendent Transmission Relationship Specialty Start Date End Date Ryan Hendrickson MD PCP - General Family Medicine 05/13/24 documented as of this encounter
--- OUTSIDE RECORDS SUMMARY | 2025-05-13 10:41 | XMS_ITS | Clinical Summary ---
Author Organization [facility] Address [address] [place] [address] Care Team Providers Care Agitator Operator Name Role Phone Ryan Hendrickson MD Primary Care Provider [phone] Allergies No known active allergies Medications liothyronine (Cytomel) 25 mcg tablet Take 0.5 tablets by mouth in the morning. 02/09/20 17 Active tamsulosin (Flomax) 0.4 mg 24 hr capsule Take 1 capsule every day by oral route for 90 days. 02/09/20 17 Active amantadine (Symmetrel) 100 mg capsule Take 1 capsule every day by oral route for 30 days. 12/26/19 18 Active vitamin B complex 331-4-047-2-2 mg/mL injection Inject into the shoulder, thigh, or buttocks every 30 (thirty) days. Last dose 10/27/23 05/07/20 19 Active famotidine (Pepcid) 20 mg tabletIndicatio ns:Status post ablation of atrial fibrillation Take 1 tablet (20 mg) by mouth in the morning and at bedtime for 58 doses. 58 tablet 11/17/19 24 026 Active Additional Information Patient not taking.Reported on 07/16/2024 pantoprazole (ProtoNix) 40 mg EC tabletIndicatio ns:Status post ablation of atrial fibrillation Take 1 tablet (40 mg) by mouth before breakfast and before evening meal for 59 doses. Do not crush, chew, or split. 59 tablet 11/17/19 24 026 Active levothyroxine (Synthroid, Levoxyl) 150 mcg tabletIndicatio ns:Orthostatic hypotension Take 1 tablet (150 mcg) by mouth before breakfast. 30 tablet 11/17/19 24 026 Active amiodarone (Pacerone) 200 mg tabletIndicatio ns:Paroxysmal atrial fibrillation (CMS/HCC) Take 2 tablets (400 mg) by mouth in the morning and at bedtime for 14 days, THEN 1 tablet (200 mg) once daily as directed. 146 tablet 11/27/19 24 Active Additional Information Patient not taking.Reported on 02/07/2024 lisinopril 5 mg tabletIndicatio ns:Benign hypertensive heart disease with heart failure (CMS/HCC) Take 1 tablet (5 mg) by mouth once daily as directed. 90 tablet 3 07/16/20 24 025 Active cholecalciferol (D3-5) 5,000 Units tablet Take 5,000 Units by mouth in the morning. Active lisinopril 10 mg tabletIndicatio ns:Benign hypertensive heart disease without congestive heart failure Take 1 tablet (10 mg) by mouth once daily as directed. 90 tablet 3 01/22/20 25 026 Active Eliquis 5 mg tabletIndicatio ns:Paroxysmal atrial fibrillation (CMS/HCC) TAKE 1 TABLET BY MOUTH TWO TIMES DAILY. 180 tablet 3 05/08/20 25 Active apixaban (Eliquis) 5 mg tabletIndicatio ns:Paroxysmal atrial fibrillation (CMS/HCC) Take 1 tablet (5 mg) by mouth two times daily. 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 07/16/2024 ADD (attention deficit disorder) 07/16/2024 BMI 28.0-28.9,adult 07/16/2024 Chronic anticoagulation 07/16/2024 Overweight 07/16/2024 Renal cyst 07/16/2024 Hypersomnia 07/08/2024 PLMD (periodic limb movement disorder) Autoimmune thyroiditis 05/29/2024 Vision changes 11/17/2023 Stage 2 chronic kidney disease 11/17/2023 Assessment & Plan (11/17/2023 4:09 PM EST): Renal condition is stable Mild mitral regurgitation 11/16/2023 Nonrheumatic tricuspid valve regurgitation 11/16 Status post ablation of atrial fibrillation 10/27 Pain in limb 10/30/2023 10/30/2023 Urge incontinence 10/30/2023 10/30/2023 Aphasia 06/28/2023 06/28/2023 BPH with urinary obstruction 06/28/202312/2022 Transient ischemic attack (TIA) 06/28/2023 06/28/2023 Degeneration of intervertebral disc 06/28/2023 06/28/2023 Dysarthria 06/28/2023 06/28/2023 ED (erectile dysfunction) 06/28/20232022 H/O head injury 06/28/2023 06/28/2023 Hypogonadism male 06/28/2023 06/28/2023 Leukopenia 06/28/2023 06/28/2023 Lower back pain 06/28/2023 06/28/2023 Lumbar radiculopathy 06/28/2023 06/28/2023 Neutropenia 06/28/2023 06/28/2023 Other specified behavioral a nd emotional disorders with onset usually occurring in childhood and adolescence 06/28/2023 1 Orthostatic hypotension 06/28/2023 06/28/20 23 Nocturia 06/28/2023 06/28/2023 Protein in urine 06/28/2023 06/28/2023 Vertigo 06/28/2023 06/28/2023 Weak urine stream 06/28/2023 06/28/2023 Chest pain 06/28/2023 Arthritis of both knees 05/29/2019 06/28/20 23 Eczema 05/29/2019 06/28/2023 Sleep apnea 05/29/2019 06/28/2023 Spinal stenosis 05/29/2019 06/28/2023 B12 deficiency 12/21/2017 06/28/2023 Absolute anemia 12/06/2017 06/28/2023 Thrombocytopenia 12/04/2017 06/28/2023 Atrial fibrillation 11/30/2016 Status post total left knee replacement 10/13/19 17 06/28/2023 Osteoarthritis of knee 09/02/2016 3 Traumatic brain injury 02/23/2016 3 Cognitive deficits 08/24/2011 06/28/2023 Encounter for vocational therapy 08/24/2011 06/28/2023 Specific academic or work inhibition as adjustme nt reaction 08/24/2011 06/28/2023 Muscle weakness 07/29/2011 06/28/2023 Attention or concentration deficit 07/05/2011 06/28/2023 Cognitive communication deficit 07/05/2011 06/28/2023 Lack of coordination 07/05/2011 06/28/2023 Amnesia 06/28/2011 06/28/2023 Overview (06/28/2023): Post traumatic Amnesia Cervical vertebral fusion 06/28/20112022 Overview (06/28/2023): History of Cervical vertebral fusion C5-C6 Hypothyroidism 06/28/2011 06/28/2023 Traumatic cephalohematoma 06/28/20112022 Viral wart, unspecified 04/28/2005 06/28/20 23 Vitiligo 02/25/2005 06/28/2023 Resolved Problems Problem Noted Date Diagnosed Date Resolved Date Asthmatic bronchitis 06/28/2023 06/28/2023 025 Encounters Date Type Department Care Team Description 05/08/2025 Refill [facility] [address] [place] [address] Jeovanny Garcia MD Paroxysmal atrial fibrillation (CMS/HCC) 03/11/2025 Refill [facility] [address] [place] [address] Lakshmi Presley MA 03/04/2025 Telephone [place] [address] [place] [address] Renetta Adam MA 03/04/2025 Orders Only [place] [address] [place] [address] Renetta Adam MA Encounter for pre-operative examination; Encounter for preprocedural cardiovascular examination 02/20/2025 Telephone [facility] [address] [place] [address] FernandezLakshmi MA 02/13/2025 Orders Only [facility] [address] [place] [address] Provider, MD Anibal from Last 3 Months Family History Medical History Relation Name Comments Cancer Father Coronary artery disease Father Stroke Father Cancer Mother Diabetes Mother Relation Name Status Comments Brother Father Mother Sister Social History Tobacco Use Types Packs/Day Years Used Date Smoking Tobacco: Never Smokeless Tobacco: Never Tobacco Cessation:Counseling Given: Not Answered Alcohol Use Standard Drinks/Week Comments Yes 0 (1 standard drink = 0.6 oz pur e alcohol) occasional C Utilities Answer Date Recorded In the past 12 months has th e Wink, gas, oil, or water Alai threatened to shut off services in your home? No 11/16/2023 Humiliation, Afraid, Rape, and Kick questionnair e Answer Date Recorded Within the last year, have y ou been afraid of your partner or ex-partner? No 11/16/2023 Emotionally Abused Not on file 11/16/2023 Physically Abused Not on file 11/16/2023 Sexually Abused Not on file 11/16/2023 Overall Financial Resource Strain (CARDIA) Answe r Date Recorded How hard is it for you to pa y for the very basics like food, housing, medical care, and heating? Not hard at all 11/16/2023 Transportation Answer Date Recorded In the past 12 months, has l ack of transportation kept you from medical appointments or from getting medications? No 11/16/2023 Lack of Transportation (Non-Medical) Not on file 11/16/2023 Housing Stability Vital Sign Answer Girma e Recorded Unable to Pay for Housing in the Last Year Not o n file 11/16/2023 Number of Places Lived in the Last Year Not on f ile 11/16/2023 In the last 12 months, was t here a time when you did not have a steady place to sleep or slept in a senior living (including now)? No 11/16/2023 Hunger Vital Sign Answer Date Recorded Within the past 12 months, y ou worried that your food would run out before you got the money to buy more. Never true 11/16/19 24 Ran Out of Food in the Last Year Not on file 11/16/2023 Sex and Gender Information Value Date Recorded Sex Assigned at Not on file Legal Sex Male 10:35 PM EDT Gender Identity Not on file Sexual Orientation Not on file Last Filed Vital Signs Vital Sign Reading Time Taken Comments Blood Pressure 145/85 01/21/2025 9:31 AM EDT Pulse 45 01/21/2025 9:31 AM EDT Temperature 36.5 C (97.7 F) 11/17/2023 4:00 AM EST Respiratory Rate 11 12/26/2023 2:08 PM EDT Oxygen Saturation 100% 01/21/2025 9:31 AM EDT Inhaled Oxygen Concentration - - Weight 86.2 kg (190 lb) 01/21/2025 9:31 AM EDT Height 167.6 cm (5' 6 ) 01/21/2025 9:31 AM EDT Body Mass Index 30.67 01/21/2025 9:31 AM EDT Plan of Treatment Upcoming Encounters Date Type Department Care Team (Late st Contact Info) Description 07/24/2025 11:00 AM EDT Office Visit [facility] [address] [place] [address] George Loza MD [address] [facility] [address] [facility] [place] [address] Health Maintenance Due Date Last Done Comments CT Colonography 1959 FIT-DNA 1959 FIT 1959 FOBT 1960 Medicare Annual Wellness (AWV) 1960 Sigmoidoscopy 1959 Depression Screening 1971 Pneumococcal Vaccine: 50+ Years (1 of 2 - PCV) 1978 Adult Tetanus 1981 Fall Risk Screening 02/22/2024 COVID-19 Vaccine ( season) 2024 07/26/2022, 09/20/2021, 12/22/2020, Additional history exists Influenza Vaccine (#1) 2025 3, 07/25/2022, 08/10/2021, Additional history exists Colonoscopy 05/29/2034 05/29/2024 Colorectal Cancer Screening 05/29/2034 Zoster Vaccines Completed 08/29/2022, 04/05/2022 HIB Vaccines Aged Out No longer eligi ble based on patient's age to complete this topic HPV Vaccines Aged Out No longer eligi ble based on patient's age to complete this topic IPV Vaccines Aged Out No longer eligi ble based on patient's age to complete this topic Meningococcal B Vaccine Aged Out No l onger eligible based on patient's age to complete this topic Meningococcal Vaccine Aged Out No red tab eligible based on patient's age to complete this topic Rotavirus Vaccines Aged Out No longer eligible based on patient's age to complete this topic Procedures Procedure Name Priority Date/Time Associated Diagnosis Comments COMPLETE TRANSTHORACIC ECHO (TTE) W/WO IMAGING AGENT, STRAIN, 3D, BUBBLE STUDY Routine 02/12/2025 11:00 AM EDT from Last 3 Months Results * Complete Echo (TTE) w/wo Imaging Agent, Strain, 3D, Bubble Study (02/12/2025 11:00 AM EDT) Anatomical Region Laterality Modality Ultrasound Historical Provider MD [facility] E[facility] PROCEDURES Final Result from Last 3 Months Insurance [facility] MEDICARE Advance Directives * Full Code (Latest Code Status on File) Date Activated Date Inactivated Comments 11/16/2023 4:20 PM 11/17/2023 8:11 PM Care Teams Agitator Operator Relationship Specialty Start Date End Date Ryan Hendrickson MD [address] [facility] [address] [address] PCP - General 06/28/23
--- OUTSIDE RECORDS SUMMARY | 2025-05-13 10:42 | XMS_ITS | Clinical Summary ---
Author Organization [employer] s tem Address [id number] [address] [place] [address] Care Team Providers Care Assistant General Manager Name Role Phone Ryan Hendrickson MD Primary Care Provider [phone] Allergies No known active allergies Medications liothyronine (CYTOMEL) 25 MCG tablet Take 1 tablet (25 mcg total) by mouth daily with breakfast. Active levothyroxine (SYNTHROID, LEVOTHROID) 175 MCG tablet Take 150 mcg by mouth once daily. 11 08/25/2016 Active tamsulosin (FLOMAX) 0.4 mg capsule,extende d [...] Encounters Date Type Department Care Team Description 02/18/2025 10:45 AM EDT Ancillary Procedure [facility] [address] [facility] [place] [address] Primary osteoarthritis of right knee 02/18/2025 10:00 AM EDT Office Visit [facility] [address] [place] [address] Alf Anthony MD Primary osteoarthritis of right knee (Primary Dx) 02/18/2025 Travel from Last 3 Months Family History Medical History Relation Name Comments Alcohol abuse Brother Valdo Doshi L ynn Drug abuse Brother Valdo Landa ynn Early Brother Valdo Landa ynn COPD Father Bear O L ynn [...] Hx Relation Name Status Comments Brother Valdo Doshi L ynn Father Bear O L ynn [...] EST Inhaled Oxygen Concentration - - Weight 84.5 kg (186 lb 6 oz) 02/18/2025 10:20 AM EDT Height 170.2 cm (5' 7 ) 02/18/2025 10:20 AM EDT Body Mass Index 29.19 02/18/2025 10:20 AM EDT Plan of Treatment Upcoming Encounters Date Type Department Care Team (Late st Contact Info) Description 07/23/2025 2:30 PM EDT Procedure visit [facility] On [address] [address] 08/06/2025 10:00 AM EST Hospital Encounter [facility] [address] [place], [place] [address] [address] Alf Anthony MD [address] [place] [address] 08/06/2025 10:00 AM EST - 08/06/2025 12:30 PM EST Surgery [facility] - Surgery [facility] [address] [address] Alf Anthony MD [address] [place] [id number] ROBOTIC REPLACEMENT TOTAL JOINT KNEE [71131 (CPT )] Scheduled Procedures Name Priority Associated Diagnoses Date/Ti me ROBOTIC REPLACEMENT TOTAL JOINT KNEE Primary osteoarthritis of right knee 08/06/2025 10:00 AM EST Health Maintenance Due Date Last Done Comments Diabetic Ophthalmology Exam 1959 Statin Use: Diabetic 1959 Depression Screening 1971 Adult BMI Follow Up Plan 1977 Diabetic Foot Exam 1977 Fall Risk Screening 02/22/2024 COVID-19 Vaccine (2023-2 5 season) 2024 07/26/2022, 09/20/2021, 12/22/2020, Additional history exists Influenza Vaccine 05/26/2025 07/30/2024, , 07/25/2022, Additional history exists Adult BMI Screening 02/18/2026 02/18/2025 Tobacco Screening 02/18/2026 02/18/2025 DTaP,Tdap and Td Vaccines (2 - Tdap) 09/04/2031 09/04/2021 Zoster (Shingles) Vaccine Completed 08/29/2022, 08/2022 Goals Goal Patient Goal Type Associated Problems Recent Progress Patient-Stated? Author Improve mobility General Yes Tiffanie Dowd, RN Note: Evaluation of progress towards goal: Maximize work with PT at discharge to strengthen L knee Autogenerated Goal Care Plan Autogenerated Problem No [employer] Implanted Type Area Retail Marketing Coordinator Device Identifier Shelf Expiration Date Model / Serial / Lot Brng Tib [id number] 0d Kn Ant - [id number] Implanted:Qty: 1 on 09/05/2016 by Alf Anthony MD at [facility] Bearing Left: Knee Biomet 08/24/2021 [id number] / / [id number] Cement Bn Palacos Radpq 40g Rpl [id number] - [id number] Implanted:Qty: 2 on 09/05/2016 by Alf Anthony MD at [facility] Cement Left: Knee [employer] 04/24/2021 [id number] [id number] / / [id number] Ty Tib 79mm Cocr Kn I Beam - [id number] Implanted:Qty: 1 on 09/05/2016 by Alf Anthony MD at [facility] Orthopedic Implant Left: Knee [employer]omet 07/06/2026 [id number] / / [id number] Cmpt Fem Kn Lt 70mm Cr Cmnt - [id number] Implanted:Qty: 1 on 09/05/2016 by Alf Anthony MD at [facility] Orthopedic Implant Left: Knee [employer]omet 07/27/2026 [id number] / / [id number] Cmpt Ptlr Thn 34mm 3 Pg Kn Ser - [id number] Implanted:Qty: 1 on 09/05/2016 by Alf Anthony MD at [facility] Orthopedic Implant Left: Knee [employer] 08/25/2021 [id number] / / [id number] Procedures Procedure Name Priority Date/Time Associated Diagnosis Comments MS ARTHROCENTESIS ASPIR&/INJ MAJOR JT/BURSA W/O US Routine 02/18/2025 10:56 AM EDT Primary osteoarthritis of right knee XR KNEE RT MIN 4 VWS Routine 02/18/2025 10:47 AM EDT Primary osteoarthritis of right knee from Last 3 Months Results * MS ARTHROCENTESIS ASPIR&/INJ MAJOR JT/BURSA W/O US (02/18/2025 10:56 AM EDT) Narrative MANUALLY TRANSCRIBED RESULTS - 02/18/2025 10:56 AM EDT Alf Anthony MD 02/18/2025 11:33 AM $ Large Joint Injection: knee, R knee on 02/18/2025 10:56 AM Indications: pain Details: 22 G needle Medications: 6 mg betamethasone acet & sod phos 6 mg/mL; 8 mg dexAMETHasone 4 mg/mL; 30 mg BUPivacaine HCl 0.5 % (5 mg/mL) Outcome: tolerated well, no immediate complications (Clean band-aid dressing applied to injection site. ) Procedure, treatment alternatives, risks and benefits explained, specific risks discussed. Consent was given by the patient. Patient was prepped and draped in the usual sterile fashion (Betadine and alcohol used to prep the skin.). us Alf Anthony MD PROCEDURE/MINOR SURGIC AL ORDERABLES Final Result MANUALLY TRANSCRIBED RESULTS * X-ray knee right minimum 4 views (02/18/2025 10:47 AM EDT) Anatomical Region Laterality Modality Lower Extremities, MSK, Knee Right Com puted Radiography 02/19/2025 4:29 PM EDT Narrative 02/19/2025 4:30 PM EDT XR KNEE RT MIN 4 VWS Clinical history:Primary osteoarthritis of right knee Comparison: 12/21/2017. Findings: Tricompartmental joint degenerative change and joint space loss and narrowing osteophyte formation in all 3 compartments. No joint effusion fracture or dislocation. No patellar subluxation. Synovial calcifications of the superior joint recess suggested. Impression: Severe tricompartmental joint degenerative change. Finalized by Ryan Duncan MD on 02/19/2025 4:30 PM Procedure Note Ryan Duncan MD - 02/19/2025 XR KNEE RT MIN 4 VWS Clinical history:Primary osteoarthritis of right knee Comparison: 12/21/2017. Findings: Tricompartmental joint degenerative change and joint space loss andnarrowing osteophyte formation in all 3 compartments. No joint effusionfracture or dislocation. No patellar subluxation. Synovial calcificationsof the superior joint recess suggested. Impression: Severe tricompartmental joint degenerative change. Finalized by Ryan Duncan MD on 02/19/2025 4:30 PM Alf Anthony MD IMG DIAGNOSTIC IMAGING ORDERABLES Final Result from Last 3 Months Additional Health Concerns Active Problems Noted Date Diagnosed Date Autogenerated Problem 02/25/2025 Insurance [facility] Advance Directives * Full Code (Latest Code Status on File) Date Activated Date Inactivated Comments 09/05/2016 8:43 PM 09/08/2016 4:31 PM Care Teams Assistant General Manager Relationship Specialty Start Date End Date Ryan Hendrickson MD PCP - General 07/05/16
--- OUTSIDE RECORDS SUMMARY | 2025-05-13 10:42 | XMS_ITS | Encounter Summary ---
Author Organization [facility] Address [address] [place] [address] Care Team Providers Care Billboard Mechanic Name Role Phone Ryan Hendrickson MD Primary Care Provider [phone] Reason for Visit * Reason Comments Med Change Request Encounter Details Date Type Department Care Team (Late Contact Info) Description 08/02/[address] [address] George Loza MD [address] [facility] [address] [facility] [place] [address] Paroxysmal atrial fibrillation (CMS/HCC); Essential hypertension Social History Tobacco Use Types Packs/Day Years Used Date Smoking Tobacco: Never Smokeless Tobacco: Never Alcohol Use Standard Drinks/Week Comments Yes 0 (1 standard drink = 0.6 oz pur e alcohol) occasional Sex and Gender Information Value Date Recorded Sex Assigned at Not on file Legal Sex Male 10:35 PM EDT Gender Identity Not on file Sexual Orientation Not on file COVID-19 Exposure Response Date Recorded In the last 10 days, have yo u been in contact with someone who was confirmed or suspected to have Coronavirus/COVID-19? No / Unsure 07/11/2023 10:08 AM EDT documented as of this encounter Plan of Treatment Upcoming Encounters Date Type Department Care Team (Late st Contact Info) Description 07/24/2025 11:00 AM EDT Office Visit [facility] [address] [place] [address] George Loza MD [address] [facility] [place] [phone] documented as of this encounter Visit Diagnoses Diagnosis Paroxysmal atrial fibrillation (CMS/HCC) Atrial fibrillation Essential hypertension Unspecified essential hypertension documented in this encounter Care Teams Billboard Mechanic Relationship Specialty Start Date End Date Ryan Hendrickson MD [address] [facility] [place] [address] PCP - General 06/28/23 documented as of this encounter
--- OUTSIDE RECORDS SUMMARY | 2025-05-13 10:42 | XMS_ITS | Clinical Summary ---
Author Organization [facility] Address [address] [facility] [place] [address] Care Team Providers Care Auto Claim Representative Name Role Phone Ryan Hendrickson MD Primary Care Provider [phone] Allergies Active Allergy Reactions Criticality Noted Date [...] (Synthroid, Levoxyl) 100 MCG tabletIndicatio ns:Sarah's disease Take 1 tablet (100 mcg) by mouth [...] 4 AM EDT Oxygen Saturation 98% 07/17/2024 2:59 PM EDT Inhaled Oxygen Concentration - - Weight 85.6 kg (188 lb 12.8 oz) 07/17/2024 2:59 PM EDT Height 168.9 cm (5' 6.5 ) 07/17/2024 2:59 PM EDT Body Mass Index 30.02 07/17/2024 2:59 PM EDT Plan of Treatment Upcoming Encounters Date Type Department Care Team (Late st Contact Info) Description 06/11/2025 10:30 AM EDT Office Visit [facility] [place] [facility] [address] [place] [phone] Román Dawson MD [address] [place] [address] Health Maintenance Due Date Last Done Comments CT Colonography 1959 FIT-DNA 1959 FIT 1959 FOBT 1959 Sigmoidoscopy 1959 Influenza Vaccine (#1) 2025 3, 07/25/2022, 08/10/2021, Additional history exists Colonoscopy 05/29/2034 05/29/2024 Colorectal Cancer Screening 05/29/2034 Pneumococcal Vaccine: 65+ Years Completed 4 Insurance [facility] MEDIC[facility] Care Teams Auto Claim Representative Relationship Specialty Start Date End Date Ryan Hendrickson MD PCP - General Family Medicine 05/13/24
--- OUTSIDE RECORDS SUMMARY | 2025-05-13 10:42 | XMS_ITS | Clinical Summary ---
Author Organization [facility] Address [address] [place] [address], [address] [place] [address] Care Team Providers Care Health Teacher Name Role Phone Unavailable Primary Care Provider [...]
--- OUTSIDE RECORDS SUMMARY | 2025-05-13 13:50 | XMS_ITS | CCD ---
Author Organization [facility] Care Team Providers Care Energy Conservation Specialist Name Role Phone Ilda Hendrickson Primary Care Physician [phone] Moose PRIETO, Jovita Unavailable Jovita Virk MD [...] PEPE Flores, DR SAEED Landa Admitting Unavaila fredrick [...] Unavailable Ilda Hendrickson MD Primary Care Provider [phone] ILDA HENDRICKSON Primary Care Unavailable SHAWANDA HERNANDEZ Attending Unavailable Sandoval Knight Unavailable MD Ilda Hendrickson Primary Care Provider [phone] MD Tracy Griffin Attending Provider Ilda Hendrickson Primary Care Unavailable Tracy Griffin Attending Unavailable Tracy Griffin Admitting Unavailable Ilda Hendrickson MD Primary Care Provider [phone] ROMÁN HOANG Attending Unavailable SAGE CAM Attending Unavailable Unavailable [facility] Ilda Regan MD Primary Care Provider [phone] Shawanda MEJIA Attending Unavailable Vianey MENDOZA Attending Unavailable Vianey MENDOZA Attending Unavailable Vianey MENDOZA Attending Unavailable NILShawanda Landa Attending Unavailable Shawanda MEJIA Attending Unavailable Ilda Hendrickson MD Primary Care Provider [phone] Ilda Hendrickson MD Primary Care Provider [phone] JOE WILLIAM Attending Unavailable BAKARI SCOTT Attending Unavailable OSMIN ANTHONY Attending Unavaila ble ILDA HENDRICKSON Referring Unavailable HOILDA Granados Primary Care Unavailable OSMIN ANTHONY Attending Unavaila ble ILDA HENDRICKSON Primary Care Unavailable ILDA HENDRICKSON M Referring Unavailable OSMIN ANTHONY Attending Unavaila ble ILDA HENDRICKSON Primary Care Unavailable ILDA HENDRICKSON Referring Unavailable OSMIN ANTHONY Referring Unavaila ble ILDA HENDRICKSON Primary Care Unavailable Allergies Allergy Classification Reported Allergen(s) Allergy Type Date of Onset Reaction(s) Facility (6 sources) Ciprofloxacin; Translations: [ciprofloxacin] Drug Allergy 4 Patient reported problems (finding) [facility] [place] (1 source) Ciprofloxacin Drug Allergy 3 [facility] Repository (1 source) Ciprofloxacin; Translations: [Cipro] Drug Allergy [facility] Repository (1 source) No Known Medication Allergies; Translations: [No Known Medication Allergies] Propensity to adverse reactions (disorder) [facility] Repository Medications Current Medications Medication Drug [...] Date: 05/07/19 Status: Ordered Start: 12-25-2017 End: 02-18-2025 take 1 capsule by mouth once daily [...] by mouth. apixaban 5 mg oral tablet (18 sources) Factor Xa Inhibitor Start: 06-27-2023 take 1 tablet by mouth in the morning, then take 1 tablet by mouth at bedtime ELIQUIS 5 mg tablet Take 1 tablet (5 mg total) by mouth in the morning and 1 tablet (5 mg total) before bedtime. 06/27/2023 Active End: 06-12-2024 take 1 tablet by mouth [...] Daily, Refills(s) 0 0 05/07/2019 Active End: 02-18-2025 take 1 tablet by mouth once daily ascorbic acid, vitamin C, (ascorbic acid with steph hips) 500 mg tablet Take 500 mg by mouth daily. 02/18/2025 Discontinued (Therapy completed) take 1 tablet by darren th once [...] / glucosamine hydrochloride 500 mg oral tablet (5 sources) End: 02-18-2025 take 3 tablets by mouth once daily glucosamine-chondroitin 500-400 mg tablet Take 3 tablets by mouth daily. 02/18/2025 Discontinued (Therapy completed) End: 04-26-2023 take 750 mg by mouth [...] q4wk, # 10 mL, Refills(s) 1, Pharmacy: [facility]/pharmacy #[id number], 167, cm, 10/05/21 11:32:00 [...] 0 dilTIAZem hydrochloride 120 mg oral tablet (4 sources) Calcium Channel Nalini End: 02-19-20 25 take 1 tablet by mouth once daily diltiazem (CARDIZEM) 120 MG tablet Take 120 mg by mouth daily. 02/18/2025 Discontinued (Therapy completed) docosahexaenoic acid 120 mg / eicosapentaenoic acid 180 mg oral capsule (5 sources) take 1 capsule by mouth once daily [place]-3 Fatty Acids (FISH OIL) 1000 MG CAPS Take 1 Capsule by mouth daily. 0 Active DOCOSAHEXANOIC ACID/EPA (FISH OIL ORAL) (4 sources) End: 02-19-20 25 take 1200 mg by mouth once daily DOCOSAHEXANOIC ACID/EPA (FISH OIL ORAL) Take 1,200 mg by mouth daily. 02/18/2025 Discontinued (Therapy completed) take 1200 mg by mouth once daily DOCOSAHEXANOIC ACID/EPA (FISH OIL ORAL) Take 1,200 mg by mouth daily. Active take 1200 mg by mouth once daily DOCOSAHEXANOIC ACID/EPA (FISH OIL ORAL) Take 1,200 mg by mouth daily. 0 Active Fish Oils (9 sources) Start: 05-07-2019 Fish Oil Oral, Refill(s) 0 Start Date: 05/07/19 Status: Ordered hydrALAZINE hydrochloride 25 mg oral tablet (12 sources) Arteriolar Vasodilator Start: 05-07-2024 take 1 [...] 3 02/08/2017 Active take 0.5 tablet by out once daily liothyronine (Cytomel) 25 MCG [...] 1 capsule by mouth once darius ly [place] Aspartate 20 mg cap Take 1 capsule by mouth once daily. 0 Active Comment on above: Take 1 capsule by mo [facility] once daily. memantine hydrochloride 5 mg oral tablet (5 sources) L-ccawew-S-aspartat e Receptor Antagonist Start: 2 End: 2 [...] Daily, # 90 cap(s), Refills(s) 3, [id number] 170, cm, 10/21/24 11:01:00 EST, Height/Length Dosing, 84, kg, 10/21/24 11:01:00 EST, Weight Dosing Start Date: 10/21/24 Status: Ordered Start: 11-24-2021 End: 11-19-2022 take 1 capsule by mouth twice daily Flomax 0.4 mg Cap 0.4 mg = 1 cap(s), Oral, BID, X 90 day(s), # 180 cap(s), Refills(s) 3, [id number], 167, cm, 10/05/21 11:32:00 EST, Height/Length Dosing, 83, kg, 10/05/21 11:32:00 EST, Weight Dosing Start Date: 11/24/21 Stop Date: 11/19/22 Status: Ordered Start: 02-08-2017 take 1 capsule by [facility] once daily tamsulosin 0.4 mg Cap 0.4 mg = 1 cap(s), Oral, Daily, # 90 cap(s), Refills(s) 3, [id number], 170, cm, 05/07/24 15:15:00 EDT, Height/Length Dosing, 83, kg, 05/07/24 15:15:00 EDT, Weight Dosing Start Date: 06/20/24 Status: Ordered take 1 capsule by [facility] every twenty-four hours in the morning tamsulosin (FLOMAX) 0.4 mg capsule,extended release 24hr Take 1 capsule (0.4 mg total) by mouth in the morning. Active Comment on above: 0.4 mg once daily. testosterone cypionate 200 mg/ml injectable solution (17 sources) Androgen Start: 05-03-2023 Depo-Testosterone 200 mg/mL intramuscular solution 300 mg, IntraMuscular, q4wk, # 10 mL, Refills(s) 1, Pharmacy: [facility]/pharmacy #[id number], 170, cm, 12/02/22 8:17:00 EST, Height/Length Dosing, 83.2, kg, 12/02/22 8:17:00 EST, Weight Dosing Start Date: 05/03/23 Status: Ordered Start: 09-07-2022 Depo-Testoster one 200 mg/mL intramuscular solution 300 mg, IntraMuscular, q4wk, # 10 mL, Refills(s) 1, [id number], 167, cm, 10/05/21 11:32:00 EST, Height/Length Dosing, 83, kg, 05/10/22 10:08:00 EDT, Weight Dosing Start Date: 09/07/22 Status: Ordered Start: 01-04-2022 Depo-Testoster one 200 mg/mL intramuscular solution 300 mg, IntraMuscular, q4wk, # 10 mL, Refills(s) 1, [id number], 167, cm, 10/05/21 11:32:00 EST, Height/Length [...] aspirin 325 mg delayed release oral tablet (5 sources) Platelet Aggregation Inhibitor, Nonsteroidal Anti-inflammatory Drug Start: 01-09-2018 End: 04-26-2023 take 1 tablet by mouth once daily aspirin, enteric coated (ASPIRIN, ENTERIC COATED) 325 mg EC tablet Take 325 mg by mouth once daily. 2 01/09/2018 04/26/2023 Discontinued (Course of therapy completed) End: 02-18-2025 take 1 tablet by mouth in the morning aspirin 325 mg tablet Take 1 tablet (325 mg total) by mouth in the morning. 02/18/2025 Discontinued (Therapy completed) Comment on above: Take 325 mg by mouth once daily. atomoxetine 60 mg oral capsule (1 source) Norepinephrine Reuptake Inhibitor End: 04-26-20 take 1 capsule by mouth once daily atomoxetine (STRATTERA) 60 mg capsule Take 60 mg by mouth once daily. 0 04/26/2023 Discontinued (Course of therapy completed) Comment on above: Take 60 mg by mouth once daily. betamethasone 3 mg/ml / betamethasone acetate 3 mg/ml injectable suspension (1 source) Corticosteroid Start: 02-19-20 End: 02-19-20 6 mg, intra-articular, One-Time Injection, Starting on Mon02/18/25 at 1056, For 1 dose Bupivacaine (4 sources) Amide Local Anesthetic Start: 02-19-20 End: 02-19-20 30 mg, intra-articular, One-Time Injection, Starting on Mon02/18/25 at 1056, For 1 dose Start: 10-08-2024 End: 10-08-2024 30 mg, intra-articular, One- Time Injection, Starting on Mon10/08/24 at 1440, For [...] 1 ml dexamethasone phosphate 4 mg/ml injection (4 sources) Corticosteroid Start: 02-18-2025 End: 02-18-2025 8 mg, intra-articular, One-Time Injection, Starting on Mon02/18/25 at 1056, For 1 dose Start: 10-08-2024 End: 10-08-2024 8 mg, intra-articular, One-T benjamín Injection, Starting on Mon10/08/24 at 1440, For [...] nail, initial encounter] Onset: 4 Episodic Osteoarthritis (19 sources) Bilateral arthritis of knees; Translations: [Bilateral primary osteoarthritis of knee] Onset: 6 05-29-2019 Chronic Other aftercare (4 sources) Long-term current use of 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; Translations: [terminal carman (current) use of 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s] Onset: 4 Episodic Other and ill-defined cerebrovascular disease (3 sources) Cerebrovascular disease 04-29-2024 Chronic Other circulatory disease (1 source) Orthostatic hypotension; Translations: [Orthostatic hypotension] 11-30-2017 Episodic Other circulatory disease (2 sources) Personal history of other diseases of the circulatory system; Translations: [Personal history of other diseases of the circulatory system] Onset: 4 Episodic Other connective tissue disease (8 sources) History of total knee arthroplasty; Translations: [...] (1 source) Attention or concentration deficit Onset: 1 07-05-2011 Chronic Other nervous system disorders (1 source) 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 Thank you. Patient's informed. Normal [facility] XR KNEE RT MIN 4 VWSon 02-19 XR KNEE RT MIN 4 VWS XR KNEE RT MIN 4 VW S XR KNEE RT MIN 4 VWS Clinical history:Primary osteoarthritis of right knee Comparison: 12/21/2017. Findings: Tricompartmental joint degenerative change and joint space loss and narrowing osteophyte formation in all 3 compartments. No joint effusion fracture or dislocation. No patellar subluxation. Synovial calcifications of the superior joint recess suggested. Impression: Severe tricompartmental joint degenerative change. Finalized by Shawanda Duncan MD on 02/19/2025 4:30 PM Normal [facility] $ Large Joint Injection: Ty alarcon kneeon 02-18-2025 Osmin Anthony MD 02/18/2025 11:33 AM $ Large [...] and alcohol used to prep the skin.). MANUALLY TRANSCRIBED RESULTS [facility] Orders Onlyon 02-13-2025 Orders Only [id number] Vianey Lacey 1960 M Date Provider Department [place] 02/13/2025 [id number], HISTORICAL CARD [facility] Family History Problem Relation Age of Onset Cancer Mother Diabetes Mother Coronary artery disease Father Stroke Father Cancer Father Family Status - Relation Status Age at Mother Father Sister Brother [facility] Office Visiton 01-21-2025 Follow-up visit [id number] Vianey Lacey 1960 M Date Provider Department Center 01/21/2025 Isa-PHILLIPDEVONJOE [facility] Family History Problem Relation Age of Onset Cancer Mother Diabetes Mother Coronary artery disease Father Stroke Father Cancer Father Family Status - Relation Status Age at Mother Father Sister Brother Level of Service:25049 NE OFFICE/OUTPATIENT ESTABLISHED MOD MDM 30 MIN [facility] 36on 11-21-2024 36 Patient's would like you to review his most recent labs from 11/20/2024 and see if he should start lisinopril. 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 Nitza says he never started lisinopril because they were keeping an eye on his renal function. Recent BP's have been 141/84, 136/83, 143/87, 141/83. Also, she is looking into buying an infrared sauna, but wasn't sure how you felt about PJ using it with his heart and kidney issues. Please advise. Thanks! Normal [facility] Office/Clinic Noteon 10-21-2024 Urology Office/Clinic Note Urology Office/Clinic Note Chief Complaint 1 year f/u HPI Staff 64yr old male pt here for 1yr f/u with PSA. Previous Dx: BPH with urinary obstruction, hypogonadism male, urge incontinence, ED *Tamsulosin 0.4mg QD PSA 09/06/21 - 0.70 06/15/22 - 0.79 He did have labs done @ [facility] but no PSA Dysuria: denies Incomplete [...] -Cont Tamsulosin wo changes. Refills sent to [facility]. -Complete PSA level soon. Will call [...] URL [facility] [address], [place] [address] [phone] Additional Instructions: 1 yr w/ PSA and T level Patient Education Benign Prostatic Hyperplasia I, Nicki Jackson, personally scribed for Dr. Mendoza on 10/21/2024 [...] levothyroxine 150 (more content not included)... Normal [facility] Comment on above: Result Comment: Elec tronically Signed By: Vianey MENDOZA MD\.br\Date and Time Signed: 10/21/24 11:59 EST\.br\Electronically Co-Signed By: Nicki Jackson\.br\Date and Time Co-Signed: 10/21/24 11:57 EST $ Large Joint Injection: R aric fang 10-08-2024 Osmin Anthony MD 10/08/2024 2:51 PM [...] with betadine and alcohol.). MANUALLY TRANSCRIBED RESULTS [facility] Ambulatory Visit Summaryon 1 10-13-2023 Ambulatory Visit [...] Vianey MENDOZA MD Where: [facility] [address] [place] [address]- Medications What How Much When Instructions Unchanged [...] for choosing us for your care. Normal [facility] Office Visiton 07-16-2024 Follow-up visit [id number] Vianey Lacey 1960 M Date Provider Department Center 07/16/2024 241-BAKARI SCOTT [facility] Family History Problem Relation Age of Onset Cancer Mother Diabetes Mother Coronary artery disease Father Stroke Father Cancer Father Family Status - Relation Status Age at Mother Father Level of Service:76242 NE OFFICE/OUTPATIENT ESTABLISHED LOW MDM 20 MIN Normal [facility] $ Large Joint Injection: R k neeon [...] with betadine and alcohol.). MANUALLY TRANSCRIBED RESULTS [facility] Orders Onlyon 06-11-2024 Orders Only [id number] AbhijitVianey Dayna 1960 M Date Provider Department Center 06/11/2024 [facility] Family History Problem Relation Age of Onset Cancer Mother Diabetes Mother Coronary artery disease Father Stroke Father Cancer Father Family Status - Relation Status Age at Mother Father Normal [facility] Erythrocyte distribution wid th Auto (RBC) [Ratio]on 06-03-2024 Erythrocyte distribution width (RBC) [Ratio] 13.3 % 11.0-15.0 [facility] Estimated glomerular filtrat ion rate (GFR) non- Americanon 06-03-2024 GFR/1.73 sq M.predicted among non-blacks MDRD (S/P/Bld) [Vol rate/Area] mL/min/{1.73_m2} >=60 [facility] Hematocrit Auto (Bld) [Volum e fraction]on 06-03-2024 Hematocrit (Bld) [Volume fraction] 45.4 % 42.0-54.0 [facility] Hemoglobin [Mass/volume] in Bloodon 06-03-2024 Hemoglobin (Bld) [Mass/Vol] 15.4 g/dL 14.0-18.0 [facility] Laboratory - Chemistry and C hemistry - challengeon 06-03-2024 Albumin [Mass/Vol] 3.8 g/dL 3.4-5.0 [facility] Calcium [Mass/Vol] 8.9 mg/dL 8.5-10.1 [facility] Chloride [Moles/Vol] 101 mmol/L 98-107 [facility] CO2 [Moles/Vol] 31.2 mmol/L 21.0-32.0 [facility] Creatinine [Mass/Vol] 1.06 mg/dL 0.70-1.30 [facility] GFR/1.73 sq M.predicted MDRD (S/P/Bld) [Vol rate/Area] mL/min/{1.73_m2} >=60 [facility] Glucose [Mass/Vol] 91 mg/dL 74-106 [facility] Magnesium [Mass/Vol] 1.9 mg/dL 1.8-2.4 [facility] Potassium [Moles/Vol] 3.9 mmol/L 3.5-5.1 [facility] Sodium [Moles/Vol] 138 mmol/L 136-145 [facility] Urate [Mass/Vol] 4.7 mg/dL 3.5-7.2 [facility] Urea nitrogen [Mass/Vol] 18.0 mg/dL 7.0-18.0 [facility] Urea nitrogen/Creatinine [Mass ratio] 17.0 mg/mg [facility] Bilirubin Ql (U) Negative NEGATIVE [facility] Glucose (U) [Mass/Vol] Negative NEGATIVE [facility] Ketones Ql (U) Negative NEGATIVE [facility] pH (U) 5.5 [pH] 5.0-9.0 [facility] Specific gravity (U) [Rel density] 1.020 1.005-1.025 [facility] Urobilinogen Qn (U) 0.2 {Brenda'U}/dL 0.2-1.0 [facility] Laboratory - Specimen inform ationon 06-03-2024 Appearance (U) CLEAR CLEAR [facility] Color (U) YELLOW YELLOW [facility] Laboratory - Urinalysison Leukocyte esterase Test strip Ql (U) Negative NEGATIVE [facility] Mucus Ql (Urine sed) NONE SEEN NONE SEEN [facility] Nitrite Ql (U) Negative NEGATIVE [facility] Protein (U) [Mass/Vol] 6.9 mg/dL <=11.9 [facility] Protein Ql (U) Negative NEG/TRACE [facility] Leukocytes [#/volume] correc kim for nucleated erythrocytes in Blood by Automated counon 06-03-2024 WBC corrected for nucl RBC Auto (Bld) [#/Vol] 3.2 10 3/uL Low 4.0-11.0 [facility] MCH Auto (RBC) [Entitic mass ]on 06-03-2024 MCH (RBC) [Entitic mass] 29.7 pg 25.9-34.0 [facility] MCHC Auto (RBC) [Mass/Vol]on 06-03-2024 MCHC (RBC) [Mass/Vol] 33.9 g/dL 29.9-35.2 [facility] MCV Auto (RBC) [Entitic vol] on 06-03-2024 MCV (RBC) [Entitic vol] 87.5 fL 80.0-94.0 [facility] No Panel Informationon 06-03 25-Hydroxy Vitamin D Total 74.8 ng/mL [facility] Comment on above: <20 ng/mL Vit D defi cient20-<30 ng/mL Vit D aljalwmrlorv50-470 ng/mL Vit D sufficient>100 ng/mL Potential Toxicity Parathyroid Hormone (Intact) 34 pg/mL 15-65 [facility] Comment on above: Performed at: [address] [id number] Director: Aleks Ferreira PhD, Phone: [phone] Phosphorus Level 2.9 mg/dL 2.6-4.7 [facility] Urine Bacteria NONE SEEN #/HPF NONE SEEN [facility] Urine Occult Blood Negative NEGATIVE [facility] Urine Random Creatinine 107.55 mg/dL 20.00-300.00 [facility] Urine RBC NONE SEEN #/HPF 0-2 [facility] Urine Squamous Epithelial Cells RARE #/LPF NONE/RARE [facility] Urine WBC NONE SEEN #/HPF NONE SEEN [facility] Platelet mean volume Auto (B ld) [Entitic vol]on 06-03-2024 Platelet mean volume (Bld) [Entitic vol] 9.5 fL 9.5-13.5 [facility] Platelets Auto (Bld) [#/Vol] on 06-03-2024 Platelets (Bld) [#/Vol] 126 10 3/uL Low 150-450 [facility] RBC Auto (Bld) [#/Vol]on RBC (Bld) [#/Vol] 5.19 10 6/uL 4.70-6.10 [facility] Serum or plasma anion gap de terminationon 06-03-2024 Anion gap [Moles/Vol] 9.7 mmol/L [facility] Urine protein/creatinine rat ioon 06-03-2024 Protein/Creatinine (U) [Ratio] 0.06 [facility] Reminderson 05-30-2024 Reminders Reminders From: Melissa Nash LPN To: N - Clinical; Sent: 05/30/2024 15:23:45 EDT Show up: 04/28/2034 07:00:00 EDT Subject: colonoscopy recall Due Date/Time: 05/29/2034 07:00:00 EDT Reminder/Recall Patient due for screening colonoscopy 05/29/2034. Normal [facility] Ambulatory Visit Summaryon 0 05-07-2024 Ambulatory [...] PRIETO, Vianey Crawford Where: [facility] [address] Medications What How Much When Instructions Unchanged [...] for choosing us for your care. Normal [facility] 36on 04-11-2024 36 Patient needs scheduled for colonoscopy and would like to know if he can hold Eliquis prior. Please advise. Thanks! Normal [facility] 04-05-2024 L Specimen: [id number] Received: 04/08/24 Status: ROYER Fernandes Num: [id number] Spec Type: Impression Subm Dr: Tracy Griffin MD Tissues: PATHPER Procedures: PATHREVIEW Age/ Patient Sex Location Account Attending Physician Vianey Lacey 64/M [facility] [id number] Tracy Griffin MD SPEC NUM: [id number] RECD: 04/08/24 STATUS: ROYER FERNANDES NUM: [id number] LADONNA: 04/05/[address]: Tracy Griffin MD ENTERED: 04/08/24 [facility] DR: Odell Dillard SPEC TYPE: Impression DEPT: [facility] ENTERED BY: [id number] RECV BY: [id number] ORDERED: PATHREVIEW ORDERED: PATHREVIEW Pathologist Review Abnormal [...] autoimmune disease, again requiring clinical correlations CPT: 60400 -------- -------- Specimen: [id number] Received: 04/08/24 Status: ROYER Fernandes Num: [id number] Spec Type: Impression Subm Dr: Tracy Griffin MD Tissues: PATHPER Procedures: PATHREVIEW -------- Patient: Vianey Lacey [id number] (Continued) -------- Signed (signature on file) Memo Morrison MD 04/09/24 1024 [facility] $ Large Joint Injection: R aric fang [...] with betadine and alcohol.). MANUALLY TRANSCRIBED RESULTS [employer] [facility] Physician Referralon 024 Physician Referral [phone] [id number] Normal [facility] Telephone Encounteron 2022 [employer] Senior Manager Authentication Interface Message Text Patient has not been seen by this specialist in more than 1 year. Please contact patient to schedule office visit. Thank you Normal [facility] CNOVon 04-26-2023 CNOV Office Visit (SPMESH ) CORINNEVIANEY AGUILERA ([id number]) 1960 M Date Time Provider Department 04/26/23 [...] g by mouth twice daily. GLUCOSAMINE HCL/CHONDROITIN AARNDA (GLUCOSAMINE-CHONDROI TIN) 750-600 mg chew Take 750 [...] palpable masses (more content not included)... Normal [facility] TESTOSTERONE, TOTALon 2022 Testosterone [Mass/Vol] 347 ng/dL Normal 264-916 [facility] Comment on above: Result Comment: Adul t male reference interval is based on a population of healthy nonobese males (BMI <30) between 19 and 39 years old. stephania Salinas.al. JCEM 2017,102;3025-8872. PMID: [id number]. Performed By: #### T ESTTOT #### [facility] [address] [place] [address] Dr. Reuben Morrison XR TSPINE 3 VIEWSon [...] ALFREDITO LOAIZA Date: 2022-11-18 16:11 Normal [facility] TESTOSTERONE, TOTALon 2022 Testosterone [Mass/Vol] 993 ng/dL Critically high 264-916 [facility] Comment on above: Result Comment: Adul t male reference interval is based on a population of healthy nonobese males (BMI <30) between 19 and 39 years old. Brad et.al. JCEM 2017,102;1037-3361. PMID: [id number]. Performed By: #### T ESTTOT #### [facility] [address] [place] [address] Dr. Reuben Morrison CBC AUTO DIFFon 06-15-2022 BASO # 0.0 103/ul Normal 0.0-0.1 [facility] Comment on above: Performed By: #### C BC #### [facility] [address] [place] [address] Dr. Reuben Morrison Basophils/100 WBC (Bld) 0.4 % Normal 0.2-2.0 [facility] Comment on above: Performed By: #### C BC #### [facility] [address] [place] [address] Dr. Reuben Morrison EO # 0.1 103/ul Normal 0.0-0.7 [facility] Comment on above: Performed By: #### C BC #### [facility] [address] [place] [address] Dr. Reuben Morrison Eosinophils/100 WBC (Bld) 1.3 % Normal 0.9-7.0 [facility] Comment on above: Performed By: #### C BC #### [facility] [address] [place] [address] Dr. Reuben Morrison Erythrocyte distribution width (RBC) [Ratio] 14.3 % Normal 11.0-15.0 [facility] Comment on above: Performed By: #### C BC #### [facility] [address] [place] [address] Dr. Reuben Morrison Hematocrit (Bld) [Volume fraction] 48.9 % Normal 42.0-54.0 [facility] Comment on above: Performed By: #### C BC #### [facility] [address] [place] [address] Dr. Reuben Morrison Hemoglobin (Bld) [Mass/Vol] 16.6 g/dL Normal 14.0-18.0 [facility] Comment on above: Performed By: #### C BC #### [facility] [address] [place] [address] Dr. Reuben Morrison IG # 0.01 10e3/ul Normal 0.00-0.03 [facility] Comment on above: Performed By: #### C BC #### [facility] [address] [place] [address] Dr. Reuben Morrison IG % 0.2 % Normal 0.0-0.5 [facility] Comment on above: Performed By: #### C BC #### [facility] [address] [place] [address] Dr. Reuben Morrison LYMPH # 1.1 103/ul Critically low 1.2-3.8 [facility] Comment on above: Performed By: #### C BC #### [facility] [address] [place] [address] Dr. Reuben Morrison Lymphocytes/100 WBC (Bld) 24.3 % Normal 20.5-60.0 [facility] Comment on above: Performed By: #### C BC #### [facility] [address] [place] [address] Dr. Reuben Morrison MANUAL DIFF REQ NO Normal [facility] Comment on above: Performed By: #### C BC #### [facility] [address] [place] [address] Dr. Reuben Morrison MCH (RBC) [Entitic mass] 29.5 pg Normal 25.9-34.0 [facility] Comment on above: Performed By: #### C BC #### [facility] [address] [address] [address] Reuben Morrison MCHC (RBC) [Mass/Vol] 33.9 g/dL Normal 29.9-35.2 [facility] Comment on above: Performed By: #### C BC #### [facility] [address] [address] [address] Reuben Morrison MCV (RBC) [Entitic vol] 86.9 fL Normal 80.0-94.0 [facility] Comment on above: Performed By: #### C BC #### [facility] [address] [place] [address] Dr. Reuben Morrison MONO # 0.5 103/ul Normal 0.3-0.8 [facility] Comment on above: Performed By: #### C BC #### [facility] [address] [place] [address] Dr. Reuben Morrison Monocytes/100 WBC (Bld) 9.6 % Normal 1.7-12.0 [facility] Comment on above: Performed By: #### C BC #### [facility] [address] [place] [address] Dr. Reuben Morrison NEUT # 3.0 103/ul Normal 1.4-6.5 [facility] Comment on above: Performed By: #### C BC #### [facility] [address] [place] [address] Dr. Reuben Morrison Neutrophils/100 WBC (Bld) 64.2 % Normal 43.0-75.0 [facility] Comment on above: Performed By: #### C BC #### [facility] [address] [place] [address] Dr. Reuben Morrison Platelet mean volume (Bld) [Entitic vol] 9.7 fL Normal 9.5-13.5 [facility] Comment on above: Performed By: #### C BC #### [facility] [address] [place] [address] Dr. Reuben Morrison PLT 130 103/ul Critically low 150-450 [facility] Comment on above: Result Comment: plts . appear slightly decreased Performed By: #### C BC #### [facility] [address] [address] [address] Reuben Morrison RBC 5.63 106/ul Normal 4.70-6.10 [facility] Comment on above: Performed By: #### C BC #### [facility] [address] [address] [address] Reuben Morrison WBC 4.7 103/ul Normal 4.0-11.0 [facility] Comment on above: Performed By: #### C BC #### [facility] [address] [address] [address] Reuben Morrison TESTOSTERONE, TOTALon 2021 Testosterone [Mass/Vol] 404 ng/dL Normal 264-916 [facility] Comment on above: Result Comment: Adul t male reference interval is based on a population of healthy nonobese males (BMI <30) between 19 and 39 years old. stephania Salinas.al. JCEM 2017,102;0573-3857. PMID: [id number]. Performed By: #### T ESTTOT #### [facility] [address] [place] [address] Dr. Reuben Morrison CBC AUTO DIFFon 04-27-2022 BASO # 0.0 103/ul Normal 0.0-0.1 [facility] Comment on above: Performed By: #### T ESTTOT #### [facility] [address] [place] [address] Dr. Reuben Morrison Basophils/100 WBC (Bld) 1.0 % Normal 0.2-2.0 [facility] Comment on above: Performed By: #### T ESTTOT #### [facility] [address] [place] [address] Dr. Reuben Morrison EO # 0.1 103/ul Normal 0.0-0.7 [facility] Comment on above: Performed By: #### T ESTTOT #### [facility] [address] [place] [address] Dr. Reuben Morrison Eosinophils/100 WBC (Bld) 1.8 % Normal 0.9-7.0 [facility] Comment on above: Performed By: #### T ESTTOT #### [facility] [address] [place] [address] Dr. Reuben Morrison Erythrocyte distribution width (RBC) [Ratio] 14.0 % Normal 11.0-15.0 [facility] Comment on above: Performed By: #### T ESTTOT #### [facility] [address] [place] [address] Dr. Reuben Morrison Hematocrit (Bld) [Volume fraction] 47.3 % Normal 42.0-54.0 [facility] Comment on above: Performed By: #### T ESTTOT #### [facility] [address] [place] [address] Dr. Reuben Morrison Hemoglobin (Bld) [Mass/Vol] 16.2 g/dL Normal 14.0-18.0 [facility] Comment on above: Performed By: #### T ESTTOT #### [facility] [address] [place] [address] Dr. Reuben Morrison IG # 0.01 10e3/ul Normal 0.00-0.03 [facility] Comment on above: Performed By: #### T ESTTOT #### [facility] [address] [place] [address] Dr. Reuben Morrison IG % 0.3 % Normal 0.0-0.5 [facility] Comment on above: Performed By: #### T ESTTOT #### [facility] [address] [place] [address] Dr. Reuben Morrison LYMPH # 1.1 103/ul Critically low 1.2-3.8 [facility] Comment on above: Performed By: #### T ESTTOT #### [facility] [address] [place] [address] Dr. Reuben Morrison Lymphocytes/100 WBC (Bld) 26.6 % Normal 20.5-60.0 [facility] Comment on above: Performed By: #### T ESTTOT #### [facility] [address] [place] [address] Dr. Reuben Morrison MANUAL DIFF REQ NO Normal [facility] Comment on above: Performed By: #### T ESTTOT #### [facility] [address] [place] [address] Dr. Reuben Morrison MCH (RBC) [Entitic mass] 29.5 pg Normal 25.9-34.0 [facility] Comment on above: Performed By: #### T ESTTOT #### [facility] [address] [place] [address] Dr. Reuben Morrison MCHC (RBC) [Mass/Vol] 34.2 g/dL Normal 29.9-35.2 [facility] Comment on above: Performed By: #### T ESTTOT #### [facility] [address] [place] [address] Dr. Reuben Morrison MCV (RBC) [Entitic vol] 86.2 fL Normal 80.0-94.0 [facility] Comment on above: Performed By: #### T ESTTOT #### [facility] [address] [place] [address] Dr. Reuben Morrison MONO # 0.4 103/ul Normal 0.3-0.8 [facility] Comment on above: Performed By: #### T ESTTOT #### [facility] [address] [place] [address] Dr. Reuben Morrison Monocytes/100 WBC (Bld) 9.0 % Normal 1.7-12.0 [facility] Comment on above: Performed By: #### T ESTTOT #### [facility] [address] [place] [address] Dr. Reuben Morrison NEUT # 2.5 103/ul Normal 1.4-6.5 [facility] Comment on above: Performed By: #### T ESTTOT #### [facility] [address] [place] [address] Dr. Reuben Morrison Neutrophils/100 WBC (Bld) 61.3 % Normal 43.0-75.0 [facility] Comment on above: Performed By: #### T ESTTOT #### [facility] [address] [address] [address] Reuben Morrison Platelet mean volume (Bld) [Entitic vol] 9.6 fL Normal 9.5-13.5 [facility] Comment on above: Performed By: #### T ESTTOT #### [facility] [address] [address] [address] Reuben Morrison PLT 128 103/ul Critically low 150-450 [facility] Comment on above: Performed By: #### T ESTTOT #### [facility] [address] [address] [address] Reuben Morrison RBC 5.49 106/ul Normal 4.70-6.10 [facility] Comment on above: Performed By: #### T ESTTOT #### [facility] [address] [place] [address] Dr. Reuben Morrison WBC 4.0 103/ul Normal 4.0-11.0 [facility] Comment on above: Performed By: #### T ESTTOT #### [facility] [address] [address] [address] Reuben Morrison INSULINon 03-08-2022 Insulin 4.3 uIU/mL Normal 2.6-24.9 [facility] Comment on above: Performed By: #### T ESTTOT #### [facility] [address] [place] [address] Dr. Reuben Morrison TESTOSTERONE, TOTALon 2021 Testosterone [Mass/Vol] ng/dL Critically high 264-916 [facility] Comment on above: Result Comment: Adul t male reference interval is based on a population of healthy nonobese males (BMI <30) between 19 and 39 years old. Brad, et.al. JCEM 2017,102;2978-1833. PMID: [id number]. Performed By: #### T ESTTOT #### [facility] [address] [place] [address] Dr. Reuben Morrison CBC AUTO DIFFon 03-07-2022 BASO # 0.1 103/ul Normal 0.0-0.1 [facility] Comment on above: Performed By: #### C BC #### [facility] [address] [place] [address] Dr. Reuben Morrison Basophils/100 WBC (Bld) 1.4 % Normal 0.2-2.0 [facility] Comment on above: Performed By: #### C BC #### [facility] [address] [place] [address] Dr. Reuben Morrison EO # 0.1 103/ul Normal 0.0-0.7 [facility] Comment on above: Performed By: #### C BC #### [facility] [address] [place] [address] Dr. Reuben Morrison Eosinophils/100 WBC (Bld) 1.4 % Normal 0.9-7.0 [facility] Comment on above: Performed By: #### C BC #### [facility] [address] [place] [address] Dr. Reuben Morrison Erythrocyte distribution width (RBC) [Ratio] 14.7 % Normal 11.0-15.0 [facility] Comment on above: Performed By: #### C BC #### [facility] [address] [place] [address] Dr. Reuben Morrison Hematocrit (Bld) [Volume fraction] 49.8 % Normal 42.0-54.0 [facility] Comment on above: Performed By: #### C BC #### [facility] [address] [place] [address] Dr. Reuben Morrison Hemoglobin (Bld) [Mass/Vol] 16.4 g/dL Normal 14.0-18.0 [facility] Comment on above: Performed By: #### C BC #### [facility] [address] [place] [address] Dr. Reuben Morrison IG # 0.01 10e3/ul Normal 0.00-0.03 [facility] Comment on above: Performed By: #### C BC #### [facility] [address] [place] [address] Dr. Reuben Morrison IG % 0.3 % Normal 0.0-0.5 [facility] Comment on above: Performed By: #### C BC #### [facility] [address] [address] [address] Reuben Morrison LYMPH # 0.9 103/ul Critically low 1.2-3.8 [facility] Comment on above: Performed By: #### C BC #### [facility] [address] [address] [address] Reuben Morrison Lymphocytes/100 WBC (Bld) 24.7 % Normal 20.5-60.0 [facility] Comment on above: Performed By: #### C BC #### [facility] [address] [address] [address] Reuben Morrison MANUAL DIFF REQ NO Normal [facility] Comment on above: Performed By: #### C BC #### [facility] [address] [place] [address] Dr. Reuben Morrison MCH (RBC) [Entitic mass] 28.9 pg Normal 25.9-34.0 [facility] Comment on above: Performed By: #### C BC #### [facility] [address] [place] [address] Dr. Reuben Morrison MCHC (RBC) [Mass/Vol] 32.9 g/dL Normal 29.9-35.2 [facility] Comment on above: Performed By: #### C BC #### [facility] [address] [place] [address] Dr. Reuben Morrison MCV (RBC) [Entitic vol] 87.7 fL Normal 80.0-94.0 [facility] Comment on above: Performed By: #### C BC #### [facility] [address] [place] [address] Dr. Reuben Morriosn MONO # 0.4 103/ul Normal 0.3-0.8 [facility] Comment on above: Performed By: #### C BC #### [facility] [address] [place] [address] Dr. Reuben Morrison Monocytes/100 WBC (Bld) 9.5 % Normal 1.7-12.0 [facility] Comment on above: Performed By: #### C BC #### [facility] [address] [address] [address] Reuben Morrison NEUT # 2.3 103/ul Normal 1.4-6.5 [facility] Comment on above: Performed By: #### C BC #### [facility] [address] [place] [address] Dr. Reuben Morrison Neutrophils/100 WBC (Bld) 62.7 % Normal 43.0-75.0 [facility] Comment on above: Performed By: #### C BC #### [facility] [address] [place] [address] Dr. Reuben Morrison Platelet mean volume (Bld) [Entitic vol] 9.8 fL Normal 9.5-13.5 [facility] Comment on above: Performed By: #### C BC #### [facility] [address] [place] [address] Dr. Reuben Morrison PLT 149 103/ul Critically low 150-450 [facility] Comment on above: Performed By: #### C BC #### [facility] [address] [place] [address] Dr. Reuben Morrison RBC 5.68 106/ul Normal 4.70-6.10 [facility] Comment on above: Performed By: #### C BC #### [facility] [address] [place] [address] Dr. Reuben Morrison WBC 3.7 103/ul Critically low 4.0-11.0 [facility] Comment on above: Performed By: #### C BC #### [facility] [address] [place] [address] Dr. Reuben Morrison FREE THYROXINE INDEX T7on FTI 2.50 Normal 1.30-4.50 [facility] Comment on above: Performed By: #### C MP, T7, TSH, LIPID #### [facility] [address] [place] [address] Dr. Reuben Morrison T3U 39.0 % Normal 33.0-40.0 [facility] Comment on above: Performed By: #### C MP, T7, TSH, LIPID #### [facility] [address] [place] [address] Dr. Reuben Morrison T4 [Mass/Vol] 6.40 ug/dL Normal 4.50-12.10 [facility] Comment on above: Performed By: #### C MP, T7, TSH, LIPID #### [facility] [address] [address] [address] Reuben Morrison GLYCOHEMOGLOBIN A1Con 2021 ADA RECOMMENDATION SEE BELOW Normal [facility] Comment on above: Result Comment: ADA RECOMMENDED LIMIT 4.0 - 6.0 ADA THERAPEUTIC TARGET < 7.0 ACTION SUGGESTED > 7.0 Performed By: #### T ESTTOT #### [facility] [address] [address] [address] Reuben Morrison Glucose [Mass/Vol] 105 mg/dL Normal [facility] Comment on above: Performed By: #### T ESTTOT #### [facility] [address] [address] [address] Reuben Morrison HbA1c (Bld) [Mass fraction] 5.3 % Normal 4.5-6.2 [facility] Comment on above: Performed By: #### T ESTTOT #### [facility] [address] [address] [address] Reuben Morrison IRONon 03-07-2022 Iron [Mass/Vol] 100.0 ug/dL Normal 65.0-175.0 [facility] Comment on above: Performed By: #### I BLAIR, PSASC, VITB12, VITAD #### [facility] [address] [address] [address] Reuben Morrison LIPID PROFILEon 03-07-2022 CHOL-HDL RATIO NORM SEE BELOW Normal [facility] Comment on above: Result Comment: 3.3 - 4.4 LOW RISK 4.4 - 7.1 AVERAGE RISK 7.1 - 11.0 MODERATE RISK >11.0 HIGH RISK Performed By: #### C MP, T7, TSH, LIPID #### [facility] [address] [place] [address] Dr. Reuben Morrison Cholesterol [Mass/Vol] 157 mg/dL Normal <=200 [facility] Comment on above: Performed By: #### C MP, T7, TSH, LIPID #### [facility] [address] [address] [address] Reuben Morrison Cholesterol in HDL [Mass/Vol] 48 mg/dL Normal 40-60 [facility] Comment on above: Performed By: #### C MP, T7, TSH, LIPID #### [facility] [address] [address] [address] Reuben Morrison Cholesterol in LDL [Mass/Vol] 96.0 mg/dL Normal [facility] Comment on above: Performed By: #### C MP, T7, TSH, LIPID #### [facility] [address] [address] [address] Reuben Morrison Cholesterol.total/Ch olesterol in HDL [Mass ratio] 3.3 {ratio} Normal [facility] Comment on above: Performed By: #### C MP, T7, TSH, LIPID #### [facility] [address] [address] [address] Reuben Morrison HDL NORMAL > or = 60 mg/dl - LO W CARDIOVASCULAR RISK <40 mg/dl - HIGH CARDIOVASCULAR RISK Normal [facility] Comment on above: Performed By: #### C MP, T7, TSH, LIPID #### [facility] [address] [address] [address] Reuben Morrison LDL CALC NORMAL SEE BELOW Normal [facility] Comment on above: Result Comment: <100 mg/dl OPTIMAL 100 - 129 mg/dl NEAR OR ABOVE OPTIMAL 130 - 159 mg/dl BORDERLINE HIGH 160 - 189 mg/dl HIGH >190 mg/dl VERY HIGH Performed By: #### C MP, T7, TSH, LIPID #### [facility] [address] [address] [address] Reuben Morrison Triglyceride [Mass/Vol] 65 mg/dL Normal <=150 [facility] Comment on above: Performed By: #### C MP, T7, TSH, LIPID #### [facility] [address] [address] [address] Reuben Morrison VLDL CALC 13.0 mg/dL Normal [facility] Comment on above: Performed By: #### C MP, T7, TSH, LIPID #### [facility] [address] [place] [address] Dr. Reuben Morrison PROF 14(COMP METB)on 022 Albumin [Mass/Vol] 3.7 g/dL Normal 3.4-5.0 [facility] Comment on above: Performed By: #### C MP, T7, TSH, LIPID #### [facility] [address] [place] [address] Dr. Reuben Morrison Albumin/Globulin [Mass ratio] 1.3 {ratio} Normal [facility] Comment on above: Performed By: #### C MP, T7, TSH, LIPID #### [facility] [address] [place] [address] Dr. Reuben Morrison ALP [Catalytic activity/Vol] 53 U/L Normal 46-116 [facility] Comment on above: Performed By: #### C MP, T7, TSH, LIPID #### [facility] [address] [place] [address] Dr. Reuben Morrison ALT [Catalytic activity/Vol] 37 U/L Normal 16-63 [facility] Comment on above: Performed By: #### C MP, T7, TSH, LIPID #### [facility] [address] [place] [address] Dr. Reuben Morrison Anion gap [Moles/Vol] 11.0 mmol/L Normal [facility] Comment on above: Performed By: #### C MP, T7, TSH, LIPID #### [facility] [address] [place] [address] Dr. Reuben Morrison AST [Catalytic activity/Vol] 28 U/L Normal 15-37 [facility] Comment on above: Performed By: #### C MP, T7, TSH, LIPID #### [facility] [address] [place] [address] Dr. Reuben Morrison Bilirubin [Mass/Vol] 0.9 mg/dL Normal 0.2-1.0 [facility] Comment on above: Performed By: #### C MP, T7, TSH, LIPID #### [facility] [address] [place] [address] Dr. Reuben Morrison Calcium [Mass/Vol] 8.9 mg/dL Normal 8.5-10.1 [facility] Comment on above: Performed By: #### C MP, T7, TSH, LIPID #### [facility] [address] [address] [address] Reuben Morrison Chloride [Moles/Vol] 106 mmol/L Normal 98-107 [facility] Comment on above: Performed By: #### C MP, T7, TSH, LIPID #### [facility] [address] [address] [address] Reuben Morrison CO2 [Moles/Vol] 28.2 mmol/L Normal 21.0-32.0 [facility] Comment on above: Performed By: #### C MP, T7, TSH, LIPID #### [facility] [address] [address] [address] Reuben Morrison Creatinine [Mass/Vol] 1.55 mg/dL Critically high 0.70-1.30 [facility] Comment on above: Performed By: #### C MP, T7, TSH, LIPID #### [facility] [address] [address] [address] Reuben Morrison EGFR-AF MARTINIQUAIS 55 mL/min/1.73m2 Critically low >=60 [facility] Comment on above: Performed By: #### C MP, T7, TSH, LIPID #### [facility] [address] [place] [address] Dr. Reuben Morrison EGFR-NON AF MARTINIQUAIS 46 mL/min/1.73m2 Critically low >=60 [facility] Comment on above: Performed By: #### C MP, T7, TSH, LIPID #### [facility] [address] [address] [address] Reuben Morrison Globulin (S) [Mass/Vol] 2.9 g/dL Normal [facility] Comment on above: Performed By: #### C MP, T7, TSH, LIPID #### [facility] [address] [address] [address] Reuben Morrison Glucose [Mass/Vol] 88 mg/dL Normal 74-106 [facility] Comment on above: Performed By: #### C MP, T7, TSH, LIPID #### [facility] [address] [place] [address] Dr. Reuben Morrison Potassium [Moles/Vol] 4.2 mmol/L Normal 3.5-5.1 [facility] Comment on above: Performed By: #### C MP, T7, TSH, LIPID #### [facility] [address] [place] [address] Dr. Reuben Morrison Protein [Mass/Vol] 6.6 g/dL Normal 6.4-8.2 [facility] Comment on above: Performed By: #### C MP, T7, TSH, LIPID #### [facility] [address] [place] [address] Dr. Reuben Morrison Sodium [Moles/Vol] 141 mmol/L Normal 136-145 [facility] Comment on above: Performed By: #### C MP, T7, TSH, LIPID #### [facility] [address] [place] [address] Dr. Reuben Morrison Urea nitrogen [Mass/Vol] 13.0 mg/dL Normal 7.0-18.0 [facility] Comment on above: Performed By: #### C MP, T7, TSH, LIPID #### [facility] [address] [place] [address] Dr. Reuben Morrison Urea nitrogen/Creatinine [Mass ratio] 8.4 mg/mg Normal [facility] Comment on above: Performed By: #### C MP, T7, TSH, LIPID #### [facility] [address] [place] [address] Dr. Reuben Morrison TSHon 03-07-2022 TSH 0.091 uIU/mL Critically low 0.358-3.740 [facility] Comment on above: Performed By: #### C MP, T7, TSH, LIPID #### [facility] [address] [place] [address] Dr. Reuben Morrison TSH RANGE SEE BELOW Normal [facility] Comment on above: Result Comment: <0.3 4 UIU/ml HYPERTHYROID 0.34-5.60 UIU/ml EUTHYROID >5.60 UIU/ml HYPOTHYROID Performed By: #### C MP, T7, TSH, LIPID #### [facility] [address] [address] [address] Reuben Morrison VITAMIN B12on 03-07-2022 Cobalamin (Vitamin B12) [Mass/Vol] 3126.0 pg/mL Critically high 193.0-986.0 [facility] Comment on above: Performed By: #### T ESTTOT #### [facility] [address] [address] [address] Reuben Morrison VITAMIN D 25 OHon 03-07-2022 VIT D 25-OH 90.4 ng/mL Normal [facility] Comment on above: Performed By: #### T ESTTOT #### [facility] [address] [address] [address] Reuben Morrison VIT D RANGES SEE BELOW Normal [facility] Comment on above: Result Comment: <20 ng/mL Vit D deficient 20 - <30 ng/mL Vit D insufficient 30 - 100 ng/mL Vit D sufficient >100 ng/mL Potential Toxicity Performed By: #### T ESTTOT #### [facility] [address] [address] [address] Reuben Morrison XR SHOULDER RICHARD 2V [...] by: ERIN HANSEN Date: 2022-03-07 16:26 Normal [facility] Vital Signs Date Time Vital Sign Value Performing Clinician Facility 02-18-2025 10:20-0400 Body height 170.2 cm Osmin Anthony MD Work Phone: [facility] 02-18-2025 10:20-0400 Body mass index (BMI) [Ratio] 29.19 kg/m2 Osmin Anthony MD Work Phone: [facility] 02-18-2025 10:20-0400 Body weight 84.54 kg Osmin Anthony MD Work Phone: [facility] 10-21-2024 10:46-0500 Body temperature 97.52 [degF] Vianey MENDOZA [facility] 10-21-2024 10:46-0500 Diastolic blood pressure 84 mm[Hg] Vianey MENDOZA [facility] 10-21-2024 10:46-0500 Systolic blood pressure 128 mm[Hg] Vianey MENDOZA [facility] 10-08-2024 14:40-0500 Body height 170.2 cm Osmin Anthony MD Work Phone: [facility] 10-08-2024 14:40-0500 Body mass index (BMI) [Ratio] 29.13 kg/m2 Osmin Anthony MD Work Phone: [facility] 10-08-2024 14:40-0500 Body weight 84.37 kg Osmin Anthony MD Work Phone: [facility] 08-13-2024 13:46-0500 Blood Pressure Location Shawanda MEJIA [facility] 08-13-2024 13:46-0500 Diastolic blood pressure 82 mm[Hg] Shawanda MEJIA [facility] 08-13-2024 13:46-0500 Heart rate 72 /min Shawanda MEJIA [facility] 08-13-2024 13:46-0500 Respiratory rate 16 /min Shawanda MEJIA [facility] 08-13-2024 13:46-0500 Systolic blood pressure 122 mm[Hg] Shawanda MEJIA [facility] 07-17-2024 14:59-0400 Body height 168.9 cm Sage Russel DO Work Phone: [facility] 07-17-2024 14:59-0400 Body mass index (BMI) [Ratio] 30.02 kg/m2 Sage Russel DO Work Phone: [facility] 07-17-2024 14:59-0400 Body weight 85.64 kg Sage Russel DO Work Phone: [facility] 07-17-2024 14:59-0400 Diastolic blood pressure 90 mm[Hg] Sage Russel DO Work Phone: [facility] 07-17-2024 14:59-0400 Heart rate 68 /min Sage Russel DO Work Phone: [facility] 07-17-2024 14:59-0400 SaO2% (BldA) [Mass fraction] 98 % Sage Russel DO Work Phone: [facility] 07-17-2024 14:59-0400 Systolic blood pressure 134 mm[Hg] Sage Russel DO Work Phone: [facility] 06-12-2024 11:04-0400 Body height 168.9 cm Román Hoang MD Work Phone: [facility] 06-12-2024 11:04-0400 Body mass index (BMI) [Ratio] 29.89 kg/m2 Román Hoang MD Work Phone: [facility] 06-12-2024 11:04-0400 Body weight 85.28 kg Román Hoang MD Work Phone: [facility] 06-12-2024 11:04-0400 Diastolic blood pressure 78 mm[Hg] Román Hoang MD Work Phone: [facility] 06-12-2024 11:04-0400 Heart rate 68 /min Román Hoang MD Work Phone: [facility] 06-12-2024 11:04-0400 Respiratory rate 16 /min Román Hoang MD Work Phone: [facility] 06-12-2024 11:04-0400 Systolic blood pressure 130 mm[Hg] Román Hoang MD Work Phone: [facility] 06-11-2024 11:20-0400 Body height 170.2 cm Osmin Anthony MD Work Phone: [facility] 06-11-2024 11:20-0400 Body mass index (BMI) [Ratio] 28.7 kg/m2 Osmin Anthony MD Work Phone: [facility] 06-11-2024 11:20-0400 Body weight 83.12 kg Osmin Anthony MD Work Phone: [facility] 06-06-2024 13:55-0400 Body height 168.91 cm MD Ilda Hendrickson Work Phone: [facility] 06-06-2024 13:55-0400 Body mass index (BMI) [Ratio] 29.4 kg/m2 MD Ilda Hendrickson Work Phone: [facility] 06-06-2024 13:55-0400 Body temperature 98.8 [degF] MD Ilda Hendrickson Work Phone: [facility] 06-06-2024 13:55-0400 Body weight 83.97 kg MD Ilda Hendrickson Work Phone: [facility] 06-06-2024 13:55-0400 Diastolic blood pressure 88 mm[Hg] MD Ilda Hendrickson Work Phone: [facility] 06-06-2024 13:55-0400 Heart rate 61 /min MD Ilda Hendrickson Work Phone: [facility] 06-06-2024 13:55-0400 Respiratory rate 16 /min MD Ilda Hendrickson Work Phone: [facility] 06-06-2024 13:55-0400 SaO2% (BldA) [Mass fraction] 98 % MD Ilda Hendrickson Work Phone: [facility] 06-06-2024 13:55-0400 Systolic blood pressure 139 mm[Hg] MD Ilda Hendrickson Work Phone: [facility] 05-07-2024 15:01-0400 Blood Pressure Location Shawanda MEJIA [facility] 05-07-2024 15:01-0400 Diastolic blood pressure 84 mm[Hg] Shawanda MEJIA [facility] 05-07-2024 15:01-0400 Heart rate 68 /min Shawanda ROBERTO [facility] 05-07-2024 15:01-0400 Respiratory rate 16 /min Shawanda ROBERTO [facility] 05-07-2024 15:01-0400 Systolic blood pressure 118 mm[Hg] Shawanda MEJIA [facility] 11-02-2023 10:48-0500 Body height 170.2 cm Osmin Anthony MD Work Phone: [facility] 11-02-2023 10:48-0500 Body mass index (BMI) [Ratio] 29.29 kg/m2 Osmin Anthony MD Work Phone: [facility] 11-02-2023 10:48-0500 Body weight 84.82 kg Osmin Anthony MD Work Phone: [facility] 10-16-2023 13:03-0500 Blood Pressure Location Vianey MENDOZA [facility] 10-16-2023 13:03-0500 Diastolic blood pressure 82 mm[Hg] Vianey MENDOZA [facility] 10-16-2023 13:03-0500 Heart rate 75 /min Vianey MENDOZA [facility] 10-16-2023 13:03-0500 Respiratory rate 16 /min Vianey MENDOZA [facility] 10-16-2023 13:03-0500 Systolic blood pressure 131 mm[Hg] Vianey MENDOZA [facility] 07-27-2023 10:00-0400 Body height 168.91 cm Sandoval Antonia Other [employer] Other 07-27-2023 10:00-0400 Body mass index (BMI) [Ratio] 28.55 kg/m2 Sandoval Antonia Other [facility] Other 07-27-2023 10:00-0400 Body temperature 96.2 [degF] Sandoval Antonia Other [facility] Other 07-27-2023 10:00-0400 Body weight 81.47 kg Sandoval Antonia Other [facility] Other 07-27-2023 10:00-0400 Diastolic blood pressure 87 mm[Hg] Sandoval Antonia Other [facility] Other 07-27-2023 10:00-0400 Respiratory rate 16 /min Sandoval Antonia Other [facility] Other 07-27-2023 10:00-0400 SaO2% (BldA) [Mass fraction] 94 % Sandoval Antonia Other [facility] Other 07-27-2023 10:00-0400 Systolic blood pressure 130 mm[Hg] Sandoval Antonia Other [facility] Other 06-12-2023 12:25-0400 Blood Pressure Location Vianey MENDOZA [facility] 06-12-2023 12:25-0400 Diastolic blood pressure 74 mm[Hg] Vianey MENDOZA [facility] 06-12-2023 12:25-0400 Heart rate 68 /min Vianey MENDOZA [facility] 06-12-2023 12:25-0400 Respiratory rate 16 /min Vianey MENDOZA [facility] 06-12-2023 12:25-0400 Systolic blood pressure 128 mm[Hg] Vianey MENDOZA [facility] 04-26-2023 11:15-0400 Body height 168.4 cm Shawanda Hernandez PA-C Work Phone: [facility] 04-26-2023 11:15-0400 Body temperature 98.01 [degF] Shawanda Hernandez PA-C Work Phone: [facility] 04-26-2023 11:15-0400 Body weight 86.95 kg Shawanda Hernandez PA-C Work Phone: [facility] 04-26-2023 11:15-0400 Diastolic blood pressure 94 mm[Hg] Shawanda Hernandez PA-C Work Phone: [facility] 04-26-2023 11:15-0400 Heart rate 74 /min Shawanda Hernandez PA-C Work Phone: [facility] 04-26-2023 11:15-0400 SaO2% (BldA) [Mass fraction] 97 % Shawanda Hernandez PA-C Work Phone: [facility] 04-26-2023 11:15-0400 Systolic blood pressure 147 mm[Hg] Shawanda Hernandez PA-C Work Phone: [facility] 12-02-2022 08:12-0500 Blood Pressure Location Vianey MENDOZA [facility] 12-02-2022 08:12-0500 Diastolic blood pressure 84 mm[Hg] Vianey MENDOZA [facility] 12-02-2022 08:12-0500 Heart rate 70 /min Vianey MENDOZA [facility] 12-02-2022 08:12-0500 Respiratory rate 16 /min Vianey MENDOZA [facility] 12-02-2022 08:12-0500 Systolic blood pressure 137 mm[Hg] Vianey MENDOZA [facility] 07-20-2022 14:11-0400 Body mass index (BMI) [Ratio] 28.98 kg/m2 Jovita Virk MD Work Phone: [facility] 07-20-2022 14:11-0400 Body temperature 98.01 [degF] Jovita Virk MD Work Phone: [facility] 07-20-2022 14:11-0400 Body weight 83.92 kg Jovita Virk MD Work Phone: [facility] 10-26-2022 14:11-0400 Diastolic blood pressure 86 mm[Hg] Jovita Virk MD Work Phone: [employer] 07-20-2022 14:11-0400 Heart rate 98 /min Jovita Virk MD [facility] 07-20-2022 14:11-0400 Respiratory rate 14 /min Jovita Virk MD Work Phone: [facility] 07-20-2022 14:11-0400 SaO2% (BldA) [Mass fraction] 100 % Jovita Virk MD Work Phone: [employer] 07-20-2022 14:11-0400 Systolic blood pressure 138 mm[Hg] Jovita Virk MD [facility] Phone: [facility] Encounters Encounter Date Encounter Type Care Provider Facility Start: 10-27-2025 ambulatory Vianey MENDOZA [facility] ty:[facility] Start: 02-18-2025 End: 02-18-2025 ambulatory [facility] Start: 02-18-2025 End: 02-18-2025 Office outpatient visit 25 minutes Osmin Anthony MD Work Phone: [facility] Comment on above: Primary osteoarthrit is of right knee (Primary Dx) Start: 01-21-2025 End: 01-21-2025 ambulatory [facility] Start: 10-21-2024 End: 10-21-2024 ambulatory Vianey MENDOZA Facility:[facility] Start: 10-21-2024 End: 10-21-2024 Patient encounter procedure Vianey MENDOZA [facility] Start: 10-08-2024 End: 10-08-2024 ambulatory [facility] Start: 10-08-2024 End: 10-08-2024 Patient encounter procedure Osmin Anthony MD Work Phone: [facility] Comment on above: Primary osteoarthrit is of right knee (Primary Dx) Start: 08-13-2024 End: 08-13-2024 ambulatory [facility] Start: 08-13-2024 End: 08-13-2024 Patient encounter procedure Shawanda Crawford ROBERTO [facility] Start: 07-17-2024 End: 07-17-2024 ambulatory SAGE CAM Not Available Start: 07-17-2024 End: 07-17-2024 Office outpatient visit 25 minutes Sage Cam DO Work Phone: [facility] [address] Comment on above: NANCY (obstructive sle ep apnea) (Primary Dx); Hypersomnia; Snoring; Atrial fibrillation, unspecified type (CMS/HCC); Sleep deprivation Start: 07-17-2024 End: 07-17-2024 Bamboo flowsheet Sage Cam DO Work Phone: [facility] [address] Start: 07-17-2024 End: 07-17-2024 Bamboo flowsheet Sage Cam DO Work Phone: [facility] [address] Start: 07-16-2024 End: 07-16-2024 ambulatory [facility] Start: 06-12-2024 End: 06-12-2024 Bamboo flowsheet Román Hoang MD Work Phone: [facility] Start: 06-12-2024 End: 06-12-2024 Bamboo flowsheet Román Hoang MD Work Phone: [facility] Start: 06-12-2024 End: 06-12-2024 ambulatory ROMÁN HOANG Not Available Start: 06-12-2024 End: 06-12-2024 Office outpatient visit 25 minutes Román Hoang MD Work Phone: [facility] Comment on above: Sarah's disease (CMS/HCC) (Primary Dx) Start: 06-11-2024 End: 06-11-2024 ambulatory OSMIN ANTHONY [facility] Start: 06-11-2024 End: 06-11-2024 Patient encounter procedure Osmin Anthony MD Work Phone: [facility] Comment on above: Primary osteoarthrit is of right knee (Primary Dx) Start: 06-06-2024 End: 06-06-2024 ambulatory MD Ilda Hendrickson Work Phone: [facility] Work Phone: Start: 06-06-2024 End: 06-06-2024 Patient encounter procedure MD Ilda Hendrickson Work Phone[facility] Work Phone: Start: 06-03-2024 Non-patient / Non-visit MD Ravi Hendrickson Work Phone: [facility] Work Phone: Start: 05-29-2024 End: 05-29-2024 ambulatory Shawanda R NILL Facility:CD:[id number] Start: 05-07-2024 End: 05-07-2024 ambulatory Shawanda R NILL Facility:[facility] Start: 05-07-2024 End: 05-07-2024 Patient encounter procedure Shawanda R NILL [facility] Start: 05-06-2024 ambulatory Shawanda NILL Facility:[facility] Start: 04-05-2024 End: 04-05-2024 ambulatory MD Ilda Hendrickson Work Phone: [facility] Work Phone: Start: 04-05-2024 End: 04-05-2024 Departed Referred MD Ilda Hendrickson Work Phone: [facility] Start: 12-03-2023 Letter [facility] Work Phone: Start: 11-27-2023 ambulatory Vianey Lewisi ty:[facility] Start: 11-02-2023 End: 11-02-2023 Patient encounter procedure Osmin Anthony MD Work Phone: [facility] Comment on above: Primary osteoarthrit is of right knee (Primary Dx) Start: 10-16-2023 End: 10-16-2023 Patient encounter procedure Vianey MENDOZA [facility] Start: 07-27-2023 End: 07-27-2023 ambulatory Sandoval Antonia Other [facility] Other Start: 07-27-2023 Office outpatient ne w 45 minutes Sandoval Antonia [facility] Start: 06-12-2023 End: 06-12-2023 Patient encounter procedure Vianey MENDOZA [facility] Start: 05-03-2023 End: 05-03-2023 Patient encounter procedure Taylor Joshua [facility] Start: 04-26-2023 End: 04-26-2023 ambulatory ILDA HENDRICKSON Facility:[facility] Start: 04-26-2023 End: 04-26-2023 Patient encounter procedure Shawanda Hernandez PA-C Work Phone: [facility] Comment on above: Height loss (Primary Dx) Start: 03-08-2023 End: 03-08-2023 Patient encounter procedure KYLE RODRIGUEZ [facility] Start: 01-20-2023 End: 01-21-[address] ILDA HENDRICKSON . Facility: Start: 12-02-2022 End: 12-02-2022 Patient encounter procedure Vianey MENDOZA [facility] Start: 11-18-2022 End: 11-19-[address] ILDA HENDRICKSON . Facility:[facility] Start: 11-08-2022 End: 11-09-2022 ambulatory TAYLOR M SANDITania . Facility:[facility] Start: 11-01-2022 End: 11-01-2022 Patient encounter procedure KYLE RODRIGUEZ [facility] Start: 10-05-2022 End: 10-05-2022 Patient encounter procedure KYLE RODRIGUEZ [facility] Start: 09-07-2022 End: 09-07-2022 Patient encounter procedure Taylor Joshua [facility] Start: 08-28-2022 Letter encounter Jovita Virk MD Work Phone: [employer] Start: 08-17-2022 End: 08-17-2022 Patient encounter procedure Taylor Joshua [facility] Start: 08-12-2022 Telephone encounter Aarti vences MA, [facility] [employer] Work Phone: [facility] Start: 07-21-2022 End: 07-22-[address] ILDA HENDRICKSON . 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); Cognitive changes; Body mass index (BMI) 28.0-28.9, adult Start: 07-11-2022 End: 07-11-2022 Patient encounter procedure Vianey MENDOZA [facility] Start: 06-15-2022 End: 06-16-[address] SAEED Flores Facility:[facility] Start: 06-13-2022 End: 06-13-2022 Patient encounter procedure Vianey MENDOZA [facility] Start: 04-27-2022 End: 04-28-[address] SAEED Flores Facility:[facility] Start: 04-07-2022 Refill Jovita Virk MD Work Phone: [facility] Comment on above: Refill Start: 03-21-[address] ILDA HENDRICKSON . Facili ty:[facility] Start: 03-17-[address] ILDA HENDRICKSON . Facili ty:[facility] Start: 03-09-2022 Encounter for genera l adult medical examination without abnormal findings DR ILDA HENDRICKSON . [facility] Start: 03-07-2022 End: 03-08-2022 Encounter for general adult medical examination without abnormal findings DR ILDA HENDRICKSON . Facility:[facility] Start: 03-07-2022 End: 03-08-[address] ILDA HENDRICKSON . Facility:[facility] Start: 03-01-2022 End: 03-01-2022 Patient encounter procedure Saeed Cantu Jr. [facility] Start: 02-01-2022 End: 02-01-2022 Patient encounter procedure Saeed Cantu Jr. [facility] Start: 01-04-2022 End: 01-04-2022 Patient encounter procedure Saeed Cantu Jr. [facility] Procedures Date Procedure Procedure Detail Performing Clinician Start: 02-18-2025 Arthrocentesis aspir &/inj major jt/bursa w/o us Osmin Anthony MD Work Phone: Start: 10-08-2024 Arthrocentesis aspir &/inj major jt/bursa [...] above: Performed By: #### T ESTTOT #### [facility] [address] [place] [address] Dr. Reuben Morrison Start: 03-07-[address] FABIÁN HENDRICKSON . Comment on above: Performed By: #### I BLAIR, PSASC, VITB12, VITAD #### [facility] [address] [place] [address] Dr. Reuben Morrison Start: 12-21-2016 Cystourethroscopy wi [...] DTaP,Tdap and Td Vaccines (2 - Tdap) [facility] Start: 09-04-2031 Urine microalbumin profile DTAP,TDAP,TD (2 - Tdap) [facility] Start: 06-15-2027 PROSTATE CANCER SCREENING DISCUSSION PROSTATE CANCER SCREENING DISCUSSION [facility] Start: 02-18-2026 Adult BMI Screening Adult BMI Screening [facility] Start: 02-18-2026 Tobacco Screening Tobacco Screening [facility] Start: 11-30-2025 Lipid panel Cholesterol [facility] Start: 07-15-2025 End: 07-15-2025 Patient encounter procedure 07/15/2025 3:00 PM EDT [facility] [address] [place] [id number] Sage Cam DO [address] [place] [address] [facility] [address] Start: 06-11-2025 Adult BMI Screening Adult BMI Screening [facility] Start: 06-11-2025 Tobacco Screening Tobacco Screening [facility] Start: 06-11-2025 End: 06-11-2025 Patient encounter procedure 06/11/2025 10:30 AM EDT Office Visit [facility] [address] [place] [phone] Román Hoang MD [address] [place] [address] [facility] Start: 05-26-2025 Influenza vaccination Influenza Vaccine [facility] Start: 02-18-2025 End: 02-18-2026 XR Knee - right 4 Views [facility] Work Phone: Comment on above: Expected: 02/18/2025, Expires: Start: 11-02-2024 Adult BMI Screening Adult BMI Screening [facility] Start: 11-02-2024 Tobacco Screening Tobacco Screening [facility] Start: 07-17-2024 End: 07-17-2024 Patient encounter procedure 07/17/2024 2:30 PM EDT Office Visit [facility] [address] [place] [phone] Sage Cam DO [address] [place], [place] [id number] [facility] [address] Start: 06-12-2024 End: 06-12-2025 Thyrotropin [Units/volume] in Serum or Plasma TSH Lab Routine Sarah's disease (CMS/HCC) Expected: 06/12/2024 (Approximate), Expires: 06/12/2025 [facility] Comment on above: Expected: 06/12/2024 (Approximate), Expi res: 06/12/2025 Start: 06-12-2024 End: 06-12-2025 Thyroxine (T4) free [Mass/volume] in Serum or Plasma T4, free Lab Routine Sarah's disease (CMS/HCC) Expected: 06/12/2024 (Approximate), Expires: 06/12/2025 [facility] Comment on above: Expected: 06/12/2024 (Approximate), Expi res: 06/12/2025 Start: 06-12-2024 End: 06-12-2025 Triiodothyronine (T3) Free [Mass/volume] in Serum or Plasma T3, free Lab Routine Sarah's disease (CMS/HCC) Expected: 06/12/2024 (Approximate), Expires: 06/12/2025 [facility] Work Phone: Comment on above: Expected: 06/12/2024 (Approximate), Expi res: 06/12/2025 Start: 05-26-2024 COVID-19 Vaccine ( season) COVID-19 Vaccine ( season) [facility] Start: 05-26-2024 COVID-19 Vaccine ( season) COVID-19 Vaccine ( season) [facility] Start: 05-26-2024 Influenza vaccination [facility] Start: 02-22-2024 Fall Risk Screening Fall Risk Screening [facility] Start: 02-22-2024 Pneumococcal Vaccine: 65+ Years (1 of 1 - PCV) Pneumococcal Vaccine: 65+ Years (1 of 1 - PCV) [facility] Start: 05-26-2023 COVID-19 Vaccine ( season) COVID-19 Vaccine ( season) [facility] Start: 05-26-2023 Influenza vaccination INFLUENZA (#1) [facility] Start: 09-25-2022 DEPRESSION ASSESSMENT DEPRESSION ASSESSMENT [facility] Start: 09-20-2022 COVID-19 Vaccine (5 - Booster for Pfizer series) COVID-19 Vaccine (5 - Booster for Pfizer series) [facility] Start: 09-20-2022 COVID-19 VACCINE (5 - Pfizer series) COVID-19 VACCINE (5 - Pfizer series) [facility] Start: 07-19-2022 End: 07-19-2022 Patient encounter procedure 07/19/2022 Office Visit Physical Medicine & Rehab/PM&R Jovita Virk MD [address] [place] [address] [phone] [facility] [place] [facility] Start: 06-25-2022 Influenza vaccination Influenza Vaccine (#1) [facility] Start: 05-31-2022 Shingles (RZV) Vaccine (2 of 2) Shingles (RZV) Vaccine (2 of 2) [facility] Start: 01-19-2022 COVID-19 Vaccine (4 - Booster for Pfizer series) COVID-19 Vaccine (4 - Booster for Pfizer series) [facility] Start: 11-15-2021 COVID-19 Vaccine (4 - Booster for Pfizer series) COVID-19 Vaccine (4 - Booster for Pfizer series) [facility] Start: 09-05-2021 Lipid panel Cholesterol [facility] Start: 12-04-2020 DIABETES SCREEN DIABETES SCREEN [facility] Start: 2019 Hepatitis B (HBV) Vaccine (optional start 60+ years) Hepatitis B (HBV) Vaccine (optional start 60+ years) [facility] Start: 2019 RSV vaccine (optional 60+ years) RSV vaccine (optional 60+ years) [facility] Start: 11-23-2014 Annual wellness visit Annual Wellness Visit (G0438) [facility] Start: 06-10-2012 Thyroid stimulating hormone measurement TSH [facility] Start: 2009 Measurement of occult blood in single stool specimen FIT [facility] Start: 2009 Screening for malignant neoplasm of colon CRC Screening [facility] Start: 2009 Shingles (RZV) Vaccine (1 of 2) Shingles (RZV) Vaccine (1 of 2) [facility] Start: 02-22-2004 COLOGUARD (FIT-DNA) COLOGUARD (FIT-DNA) [facility] Start: 02-22-2004 Colonoscopy COLONOSCOPY [facility] Start: 02-22-2004 COLORECTAL CANCER SCREENING COLORECTAL CANCER SCREENING [facility] Start: 02-22-[address] COLONOGRAPHY [facility] Start: 02-22-2004 FECAL OCCULT BLOOD FECAL OCCULT BLOOD [facility] Start: 02-22-2004 Screening for malignant neoplasm of colon [facility] Start: 02-22-2004 SIGMOIDOSCOPY SIGMOIDOSCOPY [facility] Start: 1994 LIPID SCREEN LIPID SCREEN [facility] Start: 1978 Hepatitis A (HAV) Vaccine (optional start 19+ years) Hepatitis A (HAV) Vaccine (optional start 19+ years) [facility] Start: 1977 Adult BMI Follow Up Plan Adult BMI Follow Up Plan [facility] Start: 1977 ANNUAL PCP TEAM CHRONIC DISEASE VISIT ANNUAL PCP TEAM CHRONIC DISEASE VISIT [facility] Start: 1977 Hepatitis C screening Hepatitis C Antibody [facility] Start: 1977 HEPATITIS C SCREENING HEPATITIS C SCREENING [facility] Start: 1977 HIV SCREENING HIV SCREENING [facility] Start: 1977 SPIROMETRY SPIROMETRY [facility] Start: 1977 Tetanus + diphtheria + acellular pertussis vaccine (product) Tdap Booster [facility] Start: 1974 HIV screening HIV Test [facility] Start: 1971 Depression Screening Depression Screening [facility] Start: 1965 PNEUMOCOCCAL (1 - PCV) PNEUMOCOCCAL (1 - PCV) [facility] Start: 1959 Medicare Annual Wellness Visit Medicare Annual Wellness Visit [facility] Start: 1959 Screening for malignant neoplasm of colon [facility] Arthrp kne condyle&p latu medial&lat compartments ROBOTIC REPLACEMENT TOTAL JOINT KNEE Primary osteoarthritis of right knee FLOWER SURGERY Immunizations Immunization Date Immunization Notes Care Provider [facility] 07-30-2024 influenza virus vaccine, unspecified formulation Osmin Anthony MD Work Phone: [facility] 08-10-2023 influenza virus vaccine, unspecified formulation Shawanda MEJIA [facility] 08-10-2023 Influenza, injectable, Madin Hanna Canine Kidney, preservative free, quadrivalent [facility] Work Phone: 08-29-2022 zoster vaccine recombinant Shawanda Hernandez PA-C Work Phone: [facility] 07-26-2022 Moderna Monovalent (12+ yrs) COVID-19 vaccine, mRNA, spike protein, LNP, PF, 100 mcg/0.5 mL (UMR=692) [facility] 07-25-2022 Influenza, injectable, Madin Adolphus Canine Kidney, preservative free, quadrivalent Jovita Virk MD Work Phone: [facility] 04-05-2022 zoster vaccine recombinant Jovita Virk MD Work Phone: [facility] 09-20-2021 SARS-CoV-2 (COVID-19 ) mRNA BNT-162b2 vax Shawanda MEJIA [facility] 09-04-2021 diphtheria, tetanus toxoids and pertussis vaccine Jovita Virk MD Work Phone: [facility] 08-25-2021 SARS-CoV-2 (COVID-19 ) Ad26 vaccine, recombinant Saeed Cantu Jr. [facility] 08-10-2021 influenza, injectable, quadrivalent, preservative free Jovita Virk MD Work Phone: [facility] 08-10-2021 influenza virus vaccine, unspecified formulation Jovita Virk MD Work Phone: [facility] 06-25-2021 influenza virus vaccine, unspecified formulation Saeed Cantu Jr. [facility] 12-22-2020 Pfizer (12+ yrs) SARS-COV-2 (COVID-19) vaccine, mRNA, spike protein, LNP, pres. free, 30 mcg/0.3mL dose (WOF=624) Jovita Virk MD Work Phone: [facility] 11-30-2020 Pfizer (12+ yrs) SARS-COV-2 (COVID-19) vaccine, mRNA, spike protein, LNP, pres. free, 30 mcg/0.3mL dose (SCV=001) Jovita Virk MD Work Phone: [facility] 08-25-2020 influenza virus vaccine, unspecified formulation Saeed Cantu Jr. [facility] 06-30-2020 influenza, injectable, quadrivalent, preservative free Jovita Virk MD Work Phone: [facility] 12-25-2019 SARS-CoV-2 (COVID-19 ) mRNA BNT-162b2 vax Saeed Cantu Jr. [facility] 11-24-2019 SARS-CoV-2 (COVID-19 ) mRNA BNT-162b2 vax Saeed Pepe Brunson [facility] Payers Date Payer Category Payer Self-pay 2023 Unknown [id number] 2022 Blue Cross Blue Shield BCBS [id number] 2022 Blue Cross Blue [facility] - P[facility] [id number] 2022 Unknown [id number] 2017 Unknown [id number] .[id number] 2017 Unknown [id number] 2013 Medicare [id number] 1959 Medicare [id number] 1959 Self-pay [id number] 1959 Unknown [id number] 2.16.840.1.232995.3.579.2. 593 1959 Unknown [id number] 2.16.840.1.201570.3.579.2. 593 1959 Unknown [id number] 2.16.840.1.604778.3.579.2. 593 1959 Unknown [id number] 2.16.840.1.133053.3.579.2. 593 1959 Unknown [id number] 2.16.840.1.317876.3.579.2. 593 1959 Unknown [id number] 2.16.840.1.864192.3.579.2. 593 1959 Unknown [id number] 2.16.840.1.812068.3.579.2. 593 1959 Unknown [id number] 2.16.840.1.736607.3.579.2. 593 1959 Unknown [id number] 2.16.840.1.304422.3.579.2. 593 1959 Unknown [id number] 2.16.840.1.933677.3.579.2. 593 1959 Unknown [id number] 2.16.840.1.384512.3.579.2. 593 1959 Unknown [id number] 2.16.840.1.788370.3.579.2. 1259 1959 Unknown [id number] 2.16.840.1.325885.3.579.2. 1259 1959 Unknown [id number] 2.16.840.1.152727.3.579.2. 727 1959 Unknown [id number] 2.16.840.1.331581.3.579.2. 727 1959 Unknown [id number] 2.16.840.1.409861.3.579.2. 727 1959 Unknown [id number] 2.16.840.1.146155.3.579.2. 727 1959 Unknown [id number] 2.16.840.1.345750.3.579.2. 727 1959 Unknown [id number] 2.16.840.1.718631.3.579.2. 727 1959 Unknown [id number] 2.16.840.1.368437.3.579.2. 1286 1959 Unknown [id number] 2.16.840.1.540650.3.579.2. 1286 1959 Unknown [id number] 2.16.840.1.029453.3.579.2. 1286 1959 Unknown [id number] 2.16.840.1.960172.3.579.2. [address] [facility] [id number] Unknown [id number] 2.16.840.1.927896.3.579.2. 593 Unknown O [employer] Access [id number] Unknown [id number] 2.16.840.1.097343.3.579.2. 531 Social History Date Type Detail Facility Start: 10-05-2021 End: 10-21-2024 Tobacco smoking status Never smoked tobacco (finding) [facility] Tobacco smoking status Never [facility] Start: 11-05-2020 End: 04-26-2023 Sex Assigned At Male [facility] Start: 08-24-2011 End: 07-17-2024 Tobacco use and exposure Smokeless tobacco non-user [facility] Start: 12-07-2017 End: 08-12-2022 Alcohol intake Not Asked [facility] Start: 1960 Sex Assigned At Not on file [facility] Start: 08-12-2022 History SDOH Social Connections Phone 1 [facility] Start: 08-12-2022 History SDOH Social Connections Get Together 2 [facility] Start: 08-12-2022 History SDOH Social Connections Christianity 98 [facility] Start: 08-12-2022 Education 12 [facility] Start: 04-26-2023 End: 02-18-2025 Alcohol intake Current drinker of alcohol (finding) [facility] Start: 11-05-2020 End: 04-26-2023 History of Social function [facility] Start: 12-04-2017 Alcohol Comment social [facility] Start: 1960 Sex Assigned At Male F [facility] How often to you hav e a drink containing alcohol? Monthly or less [facility] How many standard drinks containing alcohol do you have on a typical day? 1 or 2 [facility] How often do you hav e 6 or more drinks on 1 occasion? Weekly [facility] Start: 04-30-2015 Sex Male (finding) [facility] Start: 08-23-2021 Gender identity Identifies as male gender (finding) [facility] Medical Equipment Procedure Code Equipment Code Equipment Origin al Text Equipment Identifier Dates Brng Tib [id number] mm 0d Kn Ant - [id number] Start: 09-05-2016 Cement Bn Palaco s Radpq 40g Rpl [id number] - [id number] Start: 09-05-2016 Ty Tib 79mm Cocr Kn I Beam - [id number] Start: 09-05-2016 Cmpt Fem Kn Lt 7 0mm Cr Cmnt - [id number] Start: 09-05-2016 Cmpt Ptlr Thn 34 mm 3 Pg Kn Ser - [id number] Start: 09-05-2016 Goals Date Patient Goal Desired Activity /State Personal health goal Comment on above: Formatting of this n ote might be different from the original. Evaluation of progress towards goal: Maximize work with PT at discharge to strengthen L knee Functional Status Date Assessment Result Facility 10-21-2024 Functional Status N/A [facility] 08-13-2024 Functional Status N/A [facility] General Surgery [place] 05-07-2024 Functional Status N/A [facility] Surgery [place] 10-16-2023 Functional Status N/A [facility] 06-12-2023 Functional Status N/A [facility] 12-02-2022 Functional Status N/A [facility] Clinical Notes 04-07-2022 to 02-18-2025 Osmin Anthony MD - 02/18/2025 10:00 AM EDTChsaulo Anthony MD - 10/08/2024 2:30 PM Marco Antonio Cam DO - 07/17/2024 2:30 PM Vin Hoang MD - 06/12/2024 10:30 AM EDT Note Date & Type Note Facility 02-18-2025 History of Present illness Narrative Associated Order(s): $ Large Joint Injection: knee, R knee Post-Procedure Diagnose(s): Primary osteoarthritis of right knee 02/18/2025 Vianey Lacey is a 64 y.o. male CC: Chief Complaint Patient presents with Follow-up Right knee pain - wants injection - last seen 10/08/24 HPI: Pat returns for re-evaluation of right shoulder. Pat reports persistent pain and ongoing functional limitation. Has been having more swelling lately. Feels that symptoms are getting progressively worse. Would like to discuss additional treatment options. Current treatment(s) include: Steroid injections. Home exercise program. Activity modification. Brace/support. Current Outpatient Medications Medication Sig Dispense Refill ELIQUIS 5 mg tablet Take 1 tablet (5 mg total) by mouth in the morning and 1 tablet (5 mg total) before bedtime. hydrALAZINE (APRESOLINE) 25 mg tablet Take 1 tablet (25 mg total) by mouth 3 (three) times a day. levothyroxine (SYNTHROID, LEVOTHROID) 175 MCG tablet Take 150 mcg by mouth once daily. 11 liothyronine (CYTOMEL) 25 MCG tablet Take 1 tablet (25 mcg total) by mouth daily with breakfast. tamsulosin (FLOMAX) 0.4 mg capsule,extended release 24hr Take 1 capsule (0.4 mg total) by mouth in the morning. No current facility-administered medications for this visit. No Known Allergies Ht 170.2 cm (5' 7 ) Wt 84.5 kg (186 lb 6 oz) BMI 29.19 kg/m Body mass index is 29.19 kg/m . Review of Systems EXAM: Right knee Skin exam is normal. No erythema or warmth to the area. There is a moderate effusion. (+) flexion contracture Crepitus noted with range of motion. Tenderness over medial compartment ROM: 7-120 Painful passive range of motion There is no gross instability noted. Calf is soft and non-tender. No signs of DVT. IMAGING: Right knee series updated today Weight-bearing x-rays show degenerative changes consistent with advanced osteoarthritis. There are tricompartmental degenerative changes, most advanced in the medial compartment. The joint space is bone on bone in the medial compartment. There is associated varus alignment. Marginal osteophytes are noted. No evidence for acute process. See separate dictation for radiologist's interpretation. ASSESSMENT: 1. Primary osteoarthritis of right knee PLAN: His right knee symptoms and exam findings are consistent with advanced osteoarthritis. Information on the condition was provided. Imaging studies were reviewed. Potential non-operative and operative treatment options were reviewed for the problem. He feels that his knee is getting worse. He would like to get the right knee replaced sooner rather than later. We discussed his candidacy for surgery. He previously did well with left knee replacement. 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 He elected to proceed with starting the scheduling process for robotic right total knee replacement. The proposed procedure was discussed in detail. Risks, benefits, and alternatives to surgery were reviewed. Kathie understands that this is an elective procedure. The anticipated recovery period was also discussed. He will meet with the manufacturing coordinator to schedule the procedure. Informed consent obtained. His knee was re-injected today. Informed consent obtained. Return in about 3 months (around 05/21/2025) for X-Ray-Right Knee, Post Op. Kathie was advised to contact the office if there are any problems, questions, or concerns. *I have seen and evaluated the patient today with my physician roofer assistant and agree with all aspects of the above note and care provided. I was present for all critical portions of the care and I have reviewed all the images/labs/test results and have devised the plan and made all medical decision making today. Any procedure, if performed was performed by myself. $ Large Joint Injection: knee, R knee [...] and alcohol used to prep the skin.). No orders of the defined types were placed in this encounter. Orders Placed This Encounter Procedures $ Large Joint Injection: knee, R knee This order was created via procedure documentation X-ray knee right minimum 4 views Standing Status: Future Number of Occurrences: 1 Expected Date: 02/18/2025 Expiration Date: 02/18/2026 Scheduling Instructions: Annch ortho series. Standing bilateral ap and tunnel views, a lateral view of each knee (standing if possible), and bilateral sunrise patellar view. Reason for Exam:: right knee pain Release to patient via MyChart?: Immediate [1] [facility] Cardiology Clinic Note Chief Complaint: [...] days., Disp: , Rfl: vitamin B complex 129-4-607-2-2 mg/mL injection, Inject into the shoulder, thigh, [...] reversible ischemia. Ejection fraction is normal. Transesophageal Echocardiogram-[facility] Name: VIANEY LACEY Study Date: 07/11/2023 12:24 PM B/P: 104 mmHg/74 mmHg HR: Date of : 1960 Location: [facility] Height: 68 in. Age: 63 year(s) Patient Room : Weight: 189 lb. Gender: Male Patient Status: OutPt BSA: 2 m2 Indication: Atrial Fibrillation, Pre-Cardioversion Examination: JAMIN (Transesophageal Echo / CFI) Image Quality: Good Patient Consent: Informed, written consent was obtained for the procedure s p @ c 3 Exam Location (more content not included)... [facility] 10-21-2024 Hospital Discharge instructions Patient Education 10/21/2024 [...] urethra. Follow these instructions at home: Take mgmq-zrw-xqnxztl and prescription medicines only as told by [...] provider. Document Revised: 03/30/2022 Document Reviewed: 03/30/2022 [employer] Patient Education 2023 [employer]. Follow Up Care 10/16/2023 14:07:51 With:HERRERA PRIETO, Vianey Crawford, URL Address: [facility] [address] [place] [phone] When: Unknown Comments:1 yr w/ PSA and T level [facility] 10-21-2024 Note Patient Education Urology Benign Prostatic [...] Follow these instructions at home: ??? Take hwfg-kte-wmdpydh and prescription medicines only as told by [...] do not get (more content not included)... [facility] 10-08-2024 History of Present illness Narrative [...] evaluated the patient today with my physician roofer assistant and agree with all aspects of [...] via procedure documentation documented in this encounter [facility] 08-13-2024 Note General Surgery Offi ce/Clinic Note [...] SARS-CoV-2 (COVID-19) mRNA BNT-162b2 vax 11/2019 Recorded [facility] Comment on above: Result Comment: Elec [...] was counseled on the risks of stroke, [place], and sudden with NANCY, along with the [...] clinic: 2 months documented in this encounter [facility] 07-16-2024 Note [facility] Consult Note Reason [...] Box isolaton+ 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 2. Atrial flutter s/p [...] function. He is also recently seen a tests superintendent. They are weaning of amantadine which was [...] Year: No Utilities: Not At Risk (11/16/2023) [facility] Utilities Threatened with loss of utilities: No [...] route for 90 days. vitamin B complex 686-1-009-2-2 mg/mL injection Inject into the shoulder, thigh, [...] as directed. (Pa (more content not included)... [facility] 06-12-2024 History of Present illness Narrative Vianey [...] year (around 06/12/2025). documented in this encounter [facility] 06-11-2024 History of Present illness Narrative Associated [...] evaluated the patient today with my physician roofer assistant and agree with all aspects of [...] via procedure documentation documented in this encounter [facility] 05-07-2024 Note General Surgery Offi ce/Clinic Note [...] prior to procedure. 2. Chronic anticoagulation (Z79.01: terminal carman (current) use of 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s) see # 1 [...] - Denies Substa (more content not included)... [facility] Comment on above: Result Comment: Aarti damicoally Signed By: ROBERTO PRIETO, Shawanda Taylor.br\Date and Time Signed: 05/07/24 15:50 EDT 11-02-2023 History of Present illness Narrative Associated [...] evaluated the patient today with my physician roofer assistant and agree with all aspects of [...] via procedure documentation documented in this encounter [facility] 10-16-2023 Hospital Discharge instructions Patient [...] provider. Document Revised: 01/20/2022 Document Reviewed: 01/20/2022 [employer] Patient Education 2022 [employer]. Follow Up Care 07/31/2023 10:30:59 With:HERRERA PRIETO, Vianey Crawford, URL Address: [facility] [address], [place] [id number]- When:Within 1 Year(s) Comments:w/AARON [facility] 07-27-2023 Evaluation note Encounter Date Diagnosis [...] advised him to avoid NSAIDs or any jjwl-ols-tcwkg er supplements. This deanna with the importance [...] - G47.33) Continue follow-up with the specialist. [facility] Other 10-17-2023 History general Narrative - Reported* Type Description Date Medical History FATIGUE Medical History EDEMA Surgical History CARDIO VERSION 07/11/2023 Surgical History LEFT KNEE REPLACEMENT Surgical History C5-C6 PLATE AND SCREWS Surgical History DOUBLE HERNIA REPAIR Surgical History RIGHT SHOULDER SCOPE Surgical History COLONOSCOPY Surgical History CYSTO SCOPE Hospitalization History SEE ABOVE [facility] Other 09-18-2023 Hospital Discharge instructions Patient Education [...] therapy. Follow these instructions at home: Take dkhk-ptk-ptqzdxg and prescription medicines only as told by [...] provider. Document Revised: 05/13/2021 Document Reviewed: 05/13/2021 [employer] Patient Education 2022 [employer]. Follow Up Care 05/04/2023 10:34:04 With:HERRERA PRIETO, Vianey Crawford, URL Address: [facility] [address], [place] [address] [phone] When:Within 6 Month(s) Comments:w/Testosterone Level, PSA and CBC [facility] 08-02-2023 NoteHNO ID: [id number] Author: Shawanda Hernandez PA-C Service: ? Author Type: Physician Warp Dresser Type: Progress Notes Filed: 04/26/2023 11:40 AM [...] disc disease CVA (cerebral vascular accident) ([facility]) due to head trauma Dysarthria Eczema [...] Full Oblique Extension With (more content not included)...[facility] 04-26-2023 History of Present illness [...] disc disease CVA (cerebral vascular accident) ([facility]) due to head trauma Dysarthria Eczema [...] 2023 TIME: 11:15 AM [facility] Dis[facility] Patient Education 12/02/2022 [...] urethra. Follow these instructions at home: Take uewj-tkf-qlbevpc and prescription medicines only as told by [...] 09/11/2006 Document Revised: 08/06/2019 Document Reviewed: 10/16/2017 [employer] Patient Education 2020 [employer] Follow Up Care 11/01/2022 10:29:54 With:HERRERA PRIETO, Vianey Crawford, URL Address: [address] [place] [id number] When: Unknown [facility] History of Present illness Narrative* Aarti Kelsey MA, SHANNAN, [employer] - 08/12/2022 12:27 PM EST SPEECH LANGUAGE [...] stated should already be in the system. [employer] was speaking with patient's spouse via phone conversation attempting to troubleshoot and bypass the preliminary questionnaires. However, it was unsuccessful. [employer] sent patient's spouse a direct link to her cell phone to connect to video visit and the same issues arose. Patient was connected to Wifi and using an iPad in home setting. The iPad did not successfully pass the hardware test and patient/patient's spouse were never able to successfully log on. [employer] provided patient/patient's spouse the [facility] Support Team's contact information to reach out for further assistance with log on issues. [employer] will e-mail patient's spouse/patient information regarding memory strategies, etc to help in the home setting (patient's spouse reported patient tends to misplace belongings, such as keys, etc and could use a refresher on the strategies. Patient's spouse stated she will take a look at the strategies and go from there with scheduling anything further. [employer] provided patient/spouse with our direct line to [facility] dept if she has any further questions/concerns or needs to schedule. Patient left without being seen this date. documented in this [id number] Instructions* Patient Instructions* Jovita Virk MD - 07/20/2022 2:49 PM EDT -Get the sleep apnea addressed -Hold amantadine -Add memantine 5mg daily. -External referral for brain MRI. -Speech therapy for cognitive strategies. -R knee surgery. -F/up 1 year, sooner if needed. documented in this [id number] History of Present illness Narrative* Jovita Virk [...] 200 mg into the muscle once amonth. 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 Last available brain imaging [id number] showed ventriculomegaly that was deemed not hydrocephalus [...] Risk protocol implemented: No documented in this [id number] Telephone encounter Note* Telephone Encounter - Renetta [...] PCP on file No PCP on file [id number] Miscellaneous Notes* Telephone Encounter - Renetta Boyer [...] Appointments Appointment Date:02/01/2022 10:00:00 AM Scheduled Provider: Location:[facility] Appointment Type:URO Nurse Visit Appointment Date:03/01/2022 09:00:00 AM Scheduled Provider:Saeed Cantu Jr., MD Location:[facility] Appointment Type:URO Office Visit Appointment Date:04/05/2022 11:15:00 AM Scheduled Provider:Saeed Cantu Jr., MD Location:[facility] Appointment Type:URO Office Visit [facility] evaluation + Plan note Future Appointments Appointment Date:03/01/2022 09:00:00 AM Scheduled Provider:Saeed Cantu Jr., MD Location:[facility] Appointment Type:URO Office Visit Appointment Date:04/05/2022 11:15:00 AM Scheduled Provider:Saeed Cantu Jr., MD Location:[facility] Appointment Type:URO Office Visit [facility] evaluation + Plan note Future Appointments Appointment Date:04/05/2022 11:15:00 AM Scheduled Provider:Pepe Brunson MD, Saeed Landa Location:[facility] Appointment Type:URO Office Visit Diagnostic Tests Pending * Testosterone Level Total 03/01/22 [facility] evaluation + Plan note Future Appointments Appointment Date:07/11/2022 10:15:00 AM Scheduled Provider: Location:[facility] Appointment Type:URO Nurse Visit [facility] evaluation + Plan note Future Appointments Appointment Date:09/07/2022 10:00:00 AM Scheduled Provider: Location:[facility] Appointment Type:URO Nurse Visit [facility] evaluation + Plan note Future Appointments Appointment Date:10/05/2022 10:00:00 AM Scheduled Provider: Location:[facility] Appointment Type:URO Nurse Visit [facility] eAppliLoguation + Plan note Future Appointments Appointment Date:11/01/2022 10:00:00 AM Scheduled Provider: Location:[facility] Appointment Type:URO Nurse Visit [facility] evaluation + Plan note Future Appointments Appointment Date:11/30/2022 10:00:00 AM Scheduled Provider:Taylor Joshua MD Location:[facility] Appointment Type:URO Office Visit Diagnostic Tests Pending * CBC w/ Auto Diff 11/01/22 * Testosterone Level Total 11/01/22 [facility] evaluation + Plan note Diagnostic Tests Pending * Testosterone Level Total 12/17/22 * Testosterone Level Total 04/25/23 [facility] evaluation + Plan note Future Appointments Appointment Date:04/05/2023 10:00:00 AM Scheduled Provider: Location:[facility] Appointment Type:URO Nurse Visit [facility] evaluation + Plan note Future Appointments Appointment Date:05/30/2023 10:00:00 AM Scheduled Provider: Location:[facility] Appointment Type:URO Nurse Visit [facility] evaluation + Plan note Future Appointments Appointment Date:07/10/2023 09:30:00 AM Scheduled Provider: Location:[facility] Appointment Type:URO Nurse Visit Appointment Date:11/27/2023 09:45:00 AM Scheduled Provider:Vianey MENDOZA MD Location:[facility] Appointment Type:URO Office Visit Diagnostic Tests Pending * Testosterone Level Total 06/12/23 * PSA Total 06/12/23 * CBC w/ Auto Diff 06/12/23 [facility] evaluation + Plan note Future Appointments Appointment Date:10/21/2024 10:15:00 AM Scheduled Provider:Vianey MENDOZA MD Location:[facility] Appointment Type:URO Office Visit Diagnostic Tests Pending * PSA Total 10/16/23 [facility] evaluation + Plan note Future Appointments Appointment Date:10/21/2024 10:15:00 AM Scheduled Provider:Vianey MENDOZA MD Location:[facility] Appointment Type:URO Office Visit [facility] Evaluation + Plan note Future Appointments Appointment Date:10/27/2025 10:30:00 AM Scheduled Provider:Vianey MENDOZA MD Location:[facility] Appointment Type:URO Office Visit Diagnostic Tests Pending * PSA Total 10/21/24 * Testosterone Level Total 10/21/24 [facility] evaluation note* 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 Body mass index (BMI) 28.0-28.9, adult [facility] Height loss- Primary Loss of height [facility] Work [facility]: Evaluation note* Diagnosis Onset Date Resolution Status BPH (benign prostatic hyperplasia) acute CKD (chronic kidney disease) stage 2, GFR 60-89 ml/min acute [id number] acute NANCY (obstructive sleep apnea) acute Renal cyst acute [facility] Work Phone: Evaluation note* Diagnosis NANCY (obstructive sleep apnea)- Primary Obstructive sleep apnea (adult) (pediatric) Hypersomnia Hypersomnia, unspecified Snoring Other dyspnea and respiratory abnormality Atrial fibrillation, unspecified type (CMS/HCC) Sleep deprivation Problems related to lack of adequate sleep documented [facility] encounter [facility]* 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 documented in this encounter [facility] HealthcareEvaluation note* Diagnosis Primary osteoarthritis of right knee- Primary documented in this encounter [facility]* Diagnosis Primary osteoarthritis of right knee- Primary documented in this encounter [facility]* Diagnosis Primary osteoarthritis of right knee- Primary documented in this encounter [facility]* Diagnosis Primary osteoarthritis of right knee- Primary [facility] Narrative No data available for this section [facility] Hospital Discharge instructions No data available for this section [facility] InstructionsNot on filedocumented in this encounter [facility] SystemInstructionsNot on filedocumented in this encounter [facility] SystemInstructions* Attachments The following attachments cannot be sent through Care Everywhere. * Steroid injection (Cypriot) * Knee replacement (Cypriot) [facility] No data available for this section [facility] Advance Directives No Advanced Directives Records [...] of brain injury (HCC) Jovita Virk MD [address] [place] [address] Referral ID Status Reason Start Date Expiration Date Visits Requested Visits Authorized [id number] Authorized Patient Preference 2 07/20/2023 3 3 Comments Brain MRI without contrast. H/o TBI 2010. Continues to struggle with cognitive deficits, fatigue, impaired balance, unimproved. Please evaluate for other structural causes of these issues. Fax report to me at [phone]. Specialty Diagnoses / Procedures Referred By Stephany flower Referred To Contact Speech Pathology Diagnoses Cognitive changes Late effect of brain injury (HCC) Jovita Virk MD [address] [place] [phone] [place] [address] Referral ID Status Reason Start Date Expiration Date Visits Requested Visits Authorized [id number] Pending Review [facility] 2 07/20/2023 10 10 Question Answer [...] kidney disease) stage 2, GFR 60-89 ml/min [id number] NANCY (obstructive sleep apnea) Renal cyst Additional [...] wa nts injection - last seen 11/02/23 Reason Comments Follow-up Right knee pain - wa nts injection - last seen 10/08/24 Care Teams (unrecognized sec tion and content) Energy Conservation Specialist Relationship Specialty Start Date End Date Jovita Virk MD [address] [place] [address] Physician Physical Medicine & Rehab/PM&R 06/30/20 Energy Conservation Specialist Relationship Specialty Start Date End Date Jovita Virk MD [address] [place], [place] Physician Physical Medicine & Rehab/PM&R 06/30/20 Energy Conservation Specialist Relationship Specialty Start Date End Date Jovita Virk MD [address] [place] [address] Physician Physical Medicine & Rehab/PM&R 06/30/20 Energy Conservation Specialist Relationship Specialty Start Date End Date [...] June 06, 2024 End: June 06, 2024 Energy Conservation Specialist Relationship Specialty Start Date End Date Ilda Hendrickson MD [address] [place] [address] PCP - General Family Medicine 05/13/24 Energy Conservation Specialist Relationship Specialty Start Date End Date Ilda Hendrickson MD [address] [place] [address] PCP - General Family Medicine 05/13/24 Energy Conservation Specialist Relationship Specialty Start Date End Date Ilda Hendrickson MD [address] [place] [address] PCP - General Family Medicine 05/13/24 Energy Conservation Specialist Relationship Specialty Start Date End Date Ilda Hendrickson MD [address] [place] [address] PCP - General Family Medicine 05/13/24 Energy Conservation Specialist Relationship Specialty Start Date End Date Ilda Hendrickson MD PCP - General 07/05/16 Energy Conservation Specialist Relationship Specialty Start Date End Date Ilda Hendrickson MD [address] [place] [address] PCP - General 07/05/16 Energy Conservation Specialist Relationship Specialty Start Date End Date Ilda Hendrickson MD PCP - General 07/05/16 Energy Conservation Specialist Relationship Specialty Start Date End Date Ilda Hendrickson MD PCP - General 07/05/16 (unrecognized sect ion and content) No Status Records FoundNo Status Records FoundNo Status Records FoundNo Status Records FoundNo Status Records FoundNo Status Records FoundNo Status Records FoundNo Status Records Found INFORMATION SOURCE (unrecogn ized section and content) DATE CREATED AUTHOR 01/27/2023 [facility] DATE CREATED AUTHOR AUTHOR'S ORGANIZ ATION 04/27/2023 [facility] DATE CREATED AUTHOR AUTHOR'S ORGANIZ ATION 09/23/2023 [facility] DATE CREATED AUTHOR AUTHOR'S ORGANIZ ATION 04/12/2024 [facility] DATE CREATED AUTHOR AUTHOR'S ORGANIZ ATION 07/19/2024 [facility] DATE CREATED AUTHOR AUTHOR'S ORGANIZ ATION 10/23/2024 [facility] DATE CREATED AUTHOR AUTHOR'S ORGANIZ ATION 2025 [facility] DATE CREATED AUTHOR AUTHOR'S ORGANIZ ATION 2025 [facility] Source Comments (unrecognize d section and content) In the event this informatio n is protected by the Federal Confidentiality of Alcohol and Drug Abuse Patient Records regulations: The Federal rules restrict any use of the information to criminally investigate or prosecute any alcohol or drug abuse patient.[facility] Goals (unrecognized section and content) Goals [...] BE BASED ON THE PRIMARY CLINICAL RECORDS. [facility]. provides no warranty or guarantee of the accuracy or completeness of information in this document.
== END 2025-05-13 10:40 | disposition home or self-care (01) ==
LOC: RAD 10:39
PROVIDERS: PCP Family Medicine; Visit Provider Orthopaedic Surgery
DX: M25.561 Pain in right knee (principal); M51.369 Other intervertebral disc degeneration, lumbar region without mention of lumbar back pain or lower extremity pain
CPT/HCPCS: 36415; 72170; 73564; 80048; 80323; 82042; 82306; 83036; 85025; 87081

== ENCOUNTER 2025-05-13 12:11 | Outpatient (OUT) | payer BC, MEDICARE, SELFPAY ==
--- OUTSIDE RECORDS SUMMARY | 2025-03-13 05:00 | XMS_ITS ---
Author Organization The [facility] in [place] Address [address] [place] [address] Care Team Providers Care Still Operator Brandy Name Role Phone Nabeel Hendrickson Primary Care Provider [phone] REASON FOR VISIT injection Encounters Encounter Location Date Provider Diagnosis [facility] [place]) [address] [place] [address] 03/13/2025 Nabeel Hendrickson Deficiency of vitami n B12 E53.8 Assessments Encounter Date Diagnosis (ICD Code) Assessment Notes Treatment Notes Treatment Clinical Notes Section Notes 03/13/2025 Deficiency of vitamin B12 (ICD-10 - E53.8) Plan Of Treatment Next Appt Details Provider Name:Nabeel Hendrickson, 09:00:00 AM, [address] [place], [address], Provider Name:Tracy Griffin , 07/29/2025 11:30:00 AM, [address] [place], [address], Medications Administered Medication Instructions Date of Administration Dosage Notes Cyanocobalamin 03/13/2025 1 mL Progress Notes * King ADDISONDOB: 9[birth year] (65 yo M)Acc No.[id number]:03/13/2025 Progress Note Patient: King NEWSOME Provider: Jay Hendrickson ([facility])MD :1960 A ge:65 Y S ex:Male Date:03/13/2025 Address:[address] [place] [address] [id number] Check In:08:56 AM ESTCheck O ut:09:05 AM EST Subjective: * Chief Complaints: * I njection * HPI: G eneral: Presents to office for monthly standing order B-12 injection. * Active Problem List E03.9 Hypothyroid Modified [...] : 1 mL (Route: Intramuscular) given by MR Lana on right deltoid (Deficiency of vitamin B12) * Procedure Codes: 9 6372 THERAP.INJ. OF MED. INTRAMUSCULAR OR [id number] VITAMIN B-12 < 1000 MCG * * Sign off status: Completed Visit Status: C HK (Check Out) true * Provider: Jay Hendrickson ([facility])MD Date: 0 03/13/2025 Generated for Douglas briones/Honoiro/Willitting on: 0 05/13/2025 12:16 PM EDT History and Physical Notes * HPI (History of Present Illness) Category Sub-Category Detail Notes Category Not es General Presents to off ice for monthly standing order B-12 injection
--- OUTSIDE RECORDS SUMMARY | 2025-04-10 05:00 | XMS_ITS ---
Author Organization The [facility] in [place] Address [address] [place] [address] Care Team Providers Care Clay Pigeon Loader Name Role Phone Madhavi Nabeel Primary Care Provider REASON FOR VISIT b12 injection Vital Signs Height 66.5 in 04/10/2025 Encounters Encounter Location Date Provider Diagnosis [facility] Medicine [address] [place] [address] 04/10/2025 Nabeel Hendrickson Deficiency of vitami n B12 E53.8 Assessments Encounter Date Diagnosis (ICD Code) Assessment Notes Treatment Notes Treatment Clinical Notes Section Notes 04/10/2025 Deficiency of vitamin B12 (ICD-10 - E53.8) Plan Of Treatment Next Appt Details Provider Name:Nabeel Hendrickson, 09:00:00 AM, [address] [place], [address], Provider Name:Tracy Griffin , 07/29/2025 11:30:00 AM, [address] [place], [address], Medications Administered Medication Instructions Date of Administration Dosage Notes Cyanocobalamin 04/10/2025 1 mL Progress Notes * King ADDISONDOB: [birth year] (65 yo M)Acc No.[id number]:04/10/2025 Progress Note Patient: King NEWSOME Provider: Jay Hendrickson ([facility])MD :1960 A ge:65 Y S ex:Male Date:04/10/2025 Address:[address] [place] [address] [id number] Check In:09:07 AM ESTCheck O ut:09:15 AM [...] 9 6372 THERAP.INJ. OF MED. INTRAMUSCULAR OR [id number] VITAMIN B-12 < 1000 MCG * * Sign off status: Completed Visit Status: C HK (Check Out) true * Provider: Jay Hendrickson ([facility])MD Date: 0 04/10/2025 Generated for Douglas briones/Honorio/Rubiransmitting on: 0 05/13/2025 12:17 PM EDT History and Physical Notes * HPI (History of Present Illness) Category Sub-Category Detail Notes Category Not es General presents to the office for a b12 injection
--- OUTSIDE RECORDS SUMMARY | 2025-05-12 05:00 | XMS_ITS ---
Author Organization The [facility] in [place] Address [address] [place] [address] Care Team Providers Care Senior Sales Consultant Name Role Phone Madhavi Nabeel Primary Care Provider REASON FOR VISIT b-12 Encounters Encounter Location Date Provider Diagnosis [facility] [address] [place] [address] 05/12/2025 Nabeel Hendrickson B12 deficiency E53.8 Assessments Encounter Date Diagnosis (ICD Code) Assessment Notes Treatment Notes Treatment Clinical Notes Section Notes 05/12/2025 B12 deficiency (ICD-10 - E53.8) Plan Of Treatment Next Appt Details Provider Name:Nabeel Hendrickson, 09:00:00 AM, [address] [place], [address], Provider Name:Tracy Griffin , 07/29/2025 11:30:00 AM, [address] [place], [address], Medications Administered Medication Instructions Date of Administration Dosage Notes Cyanocobalamin 05/12/2025 1 mL Progress Notes * Knig ADDISONDOB: [birth year] (65 yo M)Acc No.[id number]:05/12/2025 UNLOCKED PROGRESS NOTE Progress Note Patient: King NEWSOME Provider: Jay Hendrickson ([facility])MD :1960 A ge:65 Y S ex:Male Date:05/12/2025 Address:[address] [place] [address] [id number] Check In:09:03 AM ESTCheck O ut:09:10 AM EST Subjective: * Chief Complaints: * 1 . B-12. * HPI: G eneral: presents to the office for standing or b12 injection. * Medical History: Objective: * Vitals: Assessment: * Assessment: 1. B 12 deficiency - E53.8 (Primary) Plan: * Treatment: * Therapeutic Injections: Cyanocobalamin : 1 mL (Route: Intramuscular) given by DAVONTE Mccarthy on right deltoid (B12 deficiency) * Procedure Codes: J 3420 VITAMIN B-12 < 1000 MCG, [address]69 THERAP.INJ. OF MED. INTRAMUSCULAR OR SUBCUTANEOUS * * Electronic signature of Nabeel Hendrickson MD, [id number] on 05/13/2025 at 12:17 PM EDT Sign off status: Pending Visit Status: C HK (Check Out) * Provider: Jay Hendrickson ([facility])MD Date: 0 05/12/2025 Generated for Jacquesi anselmo/Honorio/eTransmitting on: 05/13/2025 12:17 PM EDT History and Physical Notes * HPI (History of Present Illness) Category Sub-Category Detail Notes Category Not es General presents to the office for standing or b12 injection
--- OUTSIDE RECORDS SUMMARY | 2025-05-13 12:16 | XMS_ITS | Clinical Summary ---
Author Organization [facility] Address [address] [place] [address] Care Team Providers Care Retail Merchandiser Name Role Phone Ryan Hendrickson MD Primary Care Provider [phone] Allergies No known active allergies Medications liothyronine [...] days. 12/26/19 18 Active vitamin B complex 097-7-275-2-2 mg/mL injection Inject into the shoulder, thigh, [...] Type Department Care Team Description 05/08/[address] [facility] [address] [place] [address] Jeovanny Garcia MD Paroxysmal atrial fibrillation (CMS/HCC) 03/11/[address] [facility] [address] [place] [facility] [place] [address] Lakshmi Presley MA 03/04/2025 Telephone [place] [address] [place] [facility] [place] [address] Renetta Adam MA 03/04/2025 Orders Only [place] [address] [place] [facility] [place] [address] Renetta Adam MA Encounter for pre-operative examination; Encounter for preprocedural cardiovascular examination 02/20/[address] [facility] [address] [place] [address] FernandezLakshmi MA 02/13/[address] [facility] [address] [place] [address] Provider, MD Anibal from Last [...] the past 12 months has th e [employer], gas, oil, or water [employer] threatened to shut off services in your [...] place to sleep or slept in a custodial (including now)? No 11/16/2023 Hunger Vital Sign [...] Description 07/24/2025 11:00 AM EDT Office Visit [facility] [address] [place] [address] George Loza MD [address] [facility] [address] [facility] [place] [address] Health Maintenance Due Date Last Done Comments [...] Final Result from Last 3 Months Insurance [facility] MEDICARE Advance Directives * Full Code (Latest Code Status on File) Date Activated Date Inactivated Comments 11/16/2023 4:20 PM 11/17/2023 8:11 PM Care Teams Retail Merchandiser Relationship Specialty Start Date End Date Ryan Hendrickson MD [address] [facility] [address] [address] PCP - General 06/28/23
--- OUTSIDE RECORDS SUMMARY | 2025-05-13 12:16 | XMS_ITS | Encounter Summary ---
Author Organization [facility] Address [address] [place] [address] Care Team Providers Care Senior Stack Engineer Name Role Phone Ryan Hendrickson MD Primary Care Provider [phone] Reason for Visit * Reason Comments Med Refill Encounter Details Date Type Department Care Team (Late st Contact Info) Description 05/08/2025 Refill [facility] at [facility] [address] [place] [address] Jeovanny Garcia MD [address] [place] [phone] Paroxysmal atrial fibrillation (CMS/HCC) Social History Tobacco Use Types Packs/Day Years Used Date Smoking Tobacco: Never Smokeless Tobacco: Never Alcohol Use Standard Drinks/Week Comments Yes 0 (1 standard drink = 0.6 oz pur e alcohol) occasional C Utilities Answer Date Recorded In the past 12 months has e [employer], gas, oil, or water [employer] threatened to shut off services in your [...] place to sleep or slept in a halfway (including now)? No 11/16/2023 Hunger Vital Sign [...] Description 07/24/2025 11:00 AM EDT Office Visit [facility] at [facility] [address] [place] [address] George Loza MD [address] [place] [phone] documented as of this encounter Visit Diagnoses Diagnosis Paroxysmal atrial fibrillation (CMS/HCC) Atrial fibrillation documented in this encounter Care Teams Senior Stack Engineer Relationship Specialty Start Date End Date Ryan Hendrickson MD [address] [facility] [place] [address] [address] PCP - General 06/28/23 documented as of this encounter
--- OUTSIDE RECORDS SUMMARY | 2025-05-13 12:17 | XMS_ITS | Clinical Summary ---
Author Organization [facility] Address [address] [place] [address], [address] [place] [address] Care Team Providers Care Ivory Polisher Name Role Phone Unavailable Primary Care Provider [...]
--- OUTSIDE RECORDS SUMMARY | 2025-05-13 12:17 | XMS_ITS | Patient Health Record ---
Author Organization [facility] [place] Address [address] [place] [address] Care Team Providers Care Supervisor [employer] Name Role Phone Nabeel Hendrickson Primary Care Provider [phone] Tracy Griffin Unavailable [phone] Allergies Allergen (clinical drug ingredient) Drug/Non Drug Allergy documented on EMR Reaction Allergy Type Onset Date Status ciprofloxacin Cipro Unknown Drug Allergy Act fabien ciprofloxacin Ciprofloxacin Unknown Drug Allergy Active Results Component Value Reference Range Notes MAGNESIUM Reviewed date:06/03/2024 08:50:33 PM Interpretation: Performing Lab: Notes/Report: [facility] , Magnesium 1.9 1.8-2.4 mg/dL Performing Lab: see note ML - [facility] LB RENAL FUNCTION PANEL Reviewed date:06/03/2024 08:50:33 PM Interpretation: Performing Lab: Notes/Report: [facility] , Sodium 138 136-145 mmol/L Potassium 3.9 [...] g/dL Performing Lab: see note ML - [facility] LB TSH Reviewed date:06/03/2024 08:50:34 PM Interpretation: Performing Lab: Notes/Report: [facility] , Thyroid Stimulating Hormone 0.664 0.358-3.740 uIU/mL Performing Lab: see note ML - [facility] LB UA RANDOM W or MICROSCOPIC Reviewed date:06/03/2024 08:50:34 PM Interpretation: Performing Lab: Notes/Report: [facility] , Color Urine YELLOW YELLOW Clarity Urine CLEAR CLEAR Specific [place] Urine 1.020 1.005-1.025 pH Urine 5.5 5.0-9.0 [...] #/LPF Performing Lab: see note ML - [facility] LB URIC ACID SERUM Reviewed date:06/03/2024 08:50:34 PM Interpretation: Performing Lab: Notes/Report: [facility] , Uric Acid 4.7 3.5-7.2 mg/dL Performing Lab: see note - [facility] LB URINE T PROTEIN CREAT RATIO Reviewed date:06/03/2024 08:50:34 PM Interpretation: Performing Lab: Notes/Report: [facility] , Total Protein Urine Random 6.9 <=11.9 mg/dL Creatinine Urine Random 107.55 20.00-30 0.00 mg/dL Protein Creatinine Ratio Urine 0.06 Performing Lab: see note ML - [facility] LB CBC no Diff (Hemogram) Reviewed date:06/03/2024 08:50:34 PM Interpretation: Performing Lab: Notes/Report: [facility] , White Blood Count 3.2 4.0-11.0 10 [...] 9.5 9.5-13.5 fL Performing Lab: see note - [facility] LB PTH, Intact Reviewed date:06/04/2024 10:37:46 PM Interpretation: Performing Lab: Notes/Report: [facility] , PTH, Intact 34 15-65 pg/mL Performed at: [address] [id number] [employer]: Aleks Ferreira PhD, Phone: [phone] Performing Lab: see note [facility] PROF CHEM 8 (BAS METB) Reviewed date:07/16/2024 04:20:11 PM Interpretation: Performing Lab: Notes/Report: [facility] , Sodium 140 136-145 mmol/L Potassium 4.2 3.5-5.1 mmol/L Chloride 103 98-107 mmol/L Carbon Dioxide 29.0 21.0-32.0 mmol/L Anion Gap 12.2 Glucose 89 74-106 mg/dL Blood Urea Nitrogen 27.0 7.0-18.0 mg/dL Creatinine 1.18 0.70-1.30 mg/dL Estimated GFR ( Pretty >60 >=60 mL/min/1.73m 2 Estimated GFR (Non- Glenny >60 >=60 mL/min/1.73m 2 BUN Creatinine Ratio 22.9 Calcium 9.5 8.5-10.1 mg/dL Performing Lab: see note - [facility] LB PROF CHEM 8 (BAS METB) Reviewed date:08/15/2024 02:54:14 PM Interpretation: Performing Lab: Notes/Report: [facility] , Sodium 140 136-145 mmol/L Potassium 4.1 3.5-5.1 mmol/L Chloride 104 98-107 mmol/L Carbon Dioxide 26.1 21.0-32.0 mmol/L Anion Gap 14.0 Glucose 80 74-106 mg/dL Blood Urea Nitrogen 22.0 7.0-18.0 mg/dL Creatinine 1.22 0.70-1.30 mg/dL Estimated GFR ( Pretty >60 >=60 mL/min/1.73m 2 Estimated GFR (Non- Glenny 60 >=60 mL/min/1.73m 2 BUN Creatinine Ratio 18.0 Calcium 9.4 8.5-10.1 mg/dL Performing Lab: see note ML - [facility] LB CBC AUTO DIFF Reviewed date:02/13/2025 08:22:33 PM Interpretation: Performing Lab: Notes/Report: [facility] , White Blood Count 4.2 4.0-11.0 10 [...] 9.5 9.5-13.5 fL Performing Lab: see note - [facility] LB CBC AUTO DIFF Reviewed date:11/20/2024 12:37:15 PM Interpretation: Performing Lab: Notes/Report: [facility] , White Blood Count 3.5 4.0-11.0 10 [...] 3/uL Performing Lab: see note ML - [facility] LB PROF CHEM 8 (BAS METB) Reviewed date:11/20/2024 12:37:15 PM Interpretation: Performing Lab: Notes/Report: [facility] , Sodium 139 136-145 mmol/L Potassium 4.7 3.5-5.1 mmol/L Chloride 103 98-107 mmol/L Carbon Dioxide 29.4 21.0-32.0 mmol/L Anion Gap 11.3 Glucose 78 74-106 mg/dL Blood Urea Nitrogen 24.0 7.0-18.0 mg/dL Creatinine 1.14 0.70-1.30 mg/dL Estimated GFR ( Pretty >60 >=60 mL/min/1.73m 2 Estimated GFR (Non- Glenny >60 >=60 mL/min/1.73m 2 BUN Creatinine Ratio 21.1 Calcium 9.4 8.5-10.1 mg/dL Performing Lab: see note ML - [facility] LB CBC AUTO DIFF Reviewed date:12/24/2024 04:34:09 PM Interpretation: Performing Lab: Notes/Report: [facility] , White Blood Count 3.6 4.0-11.0 10 [...] Performing Lab: see note ML - [facility] LB CBC AUTO DIFF Reviewed date:02/13/2025 08:22:32 PM Interpretation: Performing Lab: Notes/Report: [facility] , White Blood Count 3.9 4.0-11.0 10 [...] 3/uL Performing Lab: see note ML - [facility] LB LDH Reviewed date:02/13/2025 08:22:32 PM Interpretation: Performing Lab: Notes/Report: [facility] , Lactate Dehydrogenase 168 85-227 U/L Performing Lab: see note ML - [facility] LB PROF 14(COMP METB) Reviewed date:02/13/2025 08:22:32 PM Interpretation: Performing Lab: Notes/Report: [facility] , Sodium 138 136-145 mmol/L Potassium 4.3 3.5-5.1 mmol/L Chloride 103 98-107 mmol/L Carbon Dioxide 25.3 21.0-32.0 mmol/L Anion Gap 14.0 Glucose 80 74-106 mg/dL Blood Urea Nitrogen 25.0 7.0-18.0 mg/dL Creatinine 1.23 0.70-1.30 mg/dL Estimated GFR ( Pretty >60 >=60 mL/min/1.73m 2 Estimated GFR (Non- Glenny 59 >=60 mL/min/1.73m 2 BUN Creatinine Ratio 20.3 Calcium 9.0 8.5-10.1 mg/dL Bilirubin Total 0.9 0.2-1.0 mg/dL Aspartate Amino Transferase 32 15-37 U/L Alanine Aminotransferase 34 16-63 U/L Alkaline Phosphatase 58 46-116 U/L Total Protein 6.5 6.4-8.2 g/dL Albumin Level 3.8 3.4-5.0 g/dL Globulin 2.7 Albumin Globulin Ratio 1.4 Performing Lab: see note ML - [facility] LB Immunoglobulin G, Qn, Serum Reviewed date:02/13/2025 08:22:32 PM Interpretation: Performing Lab: Notes/Report: [facility] , Immunoglobulin G, Qn 427 898-5423 mg/dL Performed at: [facility] [address] [id number] [employer]: Aleks Ferreira PhD, Phone: [phone] Performing Lab: see note - [facility] LB PROF CHEM 8 (BAS METB) Reviewed date:02/12/2025 05:51:29 PM Interpretation: Performing Lab: Notes/Report: [facility] , Sodium 141 136-145 mmol/L Potassium 4.6 3.5-5.1 mmol/L Chloride 102 98-107 mmol/L Carbon Dioxide 31.9 21.0-32.0 mmol/L Anion Gap 11.7 Glucose 77 74-106 mg/dL Blood Urea Nitrogen 24.0 7.0-18.0 mg/dL Creatinine 1.09 0.70-1.30 mg/dL Estimated GFR ( Pretty >60 >=60 mL/min/1.73m 2 Estimated GFR (Non- Glenny >60 >=60 mL/min/1.73m 2 BUN Creatinine Ratio 22.0 Calcium 9.2 8.5-10.1 mg/dL Performing Lab: see note - [facility] LB XR knee RT 4V (Not yet revie wed by provider) Interpretation: Performing Lab: Notes/Report: Source Facility: [facility] [place] [address] [place] [address] XRay Report Signed Patient: KING DAVIS MR#: [id number] : 1960 Acct:[id number] Age/Sex: 65 / M ADM Date: 05/13/25 Loc: RAD Attending Dr: Nikita Briones M.D. Ordering Physician: Nikita Briones Date of Service: 05/13/25 Procedure(s): XR knee RT 4V Accession Number(s): [id number] cc: Ryan Hendrickson M.D.; Nikita Briones [address] [address] Patient Name: KING DAVIS MRN: [id number] date: 1960 Sex: M Assigned Patient Location: [facility] Current Patient Location: [facility] Accession/Order Number: [id number] Exam Date: 05/13/2025 12:02 Report Date: 05/13/2025 12:04 At the request of: NIKITA BRIONES MD Procedure: XR knee RT 4V RIGHT KNEE 3 views CLINICAL HISTORY: m25.561 Pain in right knee COMPARISON: None FINDINGS: Anterior knee soft tissue swelling. Severe medial compartment and dscz-nt-iobjzxku patellofemoral marker and degenerative changes. Mild lateral compartment degenerative change. Calcific densities within the suprapatellar region question synovial. XR/XR knee RT 4V IMPRESSION: Anterior knee soft tissue swelling. Severe medial compartment degenerative changes. Impression dictated by: Michael Arzate M.D. 05/13/2025 12:04 PM Dictation Location: [place] [address] Electronically authenticated by: [id number] Y Date: 05/13/2025 12:04 Dictated By: Michael Arzate M.D. Signed By: 05/13/25 1206 DD/ 1204 TD/TT: Wax Ball Molder: [place] [address] XRay Report Signed Patient: CHRISTA DAVIS MR#: [id number] : 1960 Acct:[id number] Age/Sex: 65 / M ADM Date: 05/13/25 Loc: [facility] Attending Dr: Nikita Briones M.D. Ordering Physician: Nikita Briones Date of Service: 05/13/25 Procedure(s): XR kne e RT 4V Accession Number(s): [id number] cc: Ryan Hendrickson M.D. ; Nikita Briones [address] [address] Patient Name: KING DAVIS MRN: [id number] date: 1960 Sex: M Assigned Patient Location: RAD Current Patient Loca tion: RAD Accession/Order Numb er: [id number] Exam Date: 05/13/2025 12:02 Report Date: 05/13/2025 12:04 At the request of: NIKITA BRIONES MD Procedure: XR knee RT 4V RIGHT KNEE 3 views CLINICAL HISTORY: m2 5.561 Pain in right knee COMPARISON: None FINDINGS: Anterior knee soft t issue swelling. Severe medial compartment and zdgn-gd-ydekjiqs patellofemoral marker and degenerative changes. Mild lateral compartment degenera tive change. Calcific densities within the suprapatellar region question synovial. X R/XR knee RT 4V IMPRESSION: Anterior knee soft t issue swelling. Severe medial compartment degenerative changes. Impression dictated by: Michael Arzate M.D. 05/13/2025 12:04 PM Dictation Location: [place] [address] Electronically authenticated by: [id number] Y Date: 05/13/2025 12:04 Dictated By: Floresita Arzate M.D. Signed By: 05/13/25 1206 DD/ 1204 TD/TT: Wax Ball Molder: PROF RICKEY Edouard ([facility]) Reviewed date:12/24/2024 04:34:09 PM Interpretation: Performing Lab: Notes/Report: [facility] , Sodium 142 136-145 mmol/L Potassium 4.6 3.5-5.1 mmol/L Chloride 105 98-107 mmol/L Carbon Dioxide 29.5 21.0-32.0 mmol/L Anion Gap 12.1 Glucose 90 74-106 mg/dL Blood Urea Nitrogen 25.0 7.0-18.0 mg/dL Creatinine 1.22 0.70-1.30 mg/dL Estimated GFR ( Pretty >60 >=60 mL/min/1.73m 2 Estimated GFR (Non- Glenny 60 >=60 mL/min/1.73m 2 BUN Creatinine Ratio 20.5 Calcium 9.2 8.5-10.1 mg/dL Performing Lab: see note ML - [facility] LB Testosterone Reviewed date:10/22/2024 04:45:30 PM Interpretation: Performing Lab: Notes/Report: [facility] , Testosterone 371 264-916 ng/dL Adult male reference interval is based on a population of healthy nonobese males (BMI <30) between 19 and 39 years old. stephania Salinas.al. JCEM 2017,102;5859-5063 . PMID: 44825404. Performed at: [address] [id number] [employer]: Aleks Ferreira PhD, Phone: [phone] Performing Lab: see note - [facility] LB PSA Reviewed date:10/21/2024 08:25:24 PM Interpretation: Performing Lab: Notes/Report: [facility] , Prostate Specific Antigen Dx 0.74 <=4.00 ng/mL Performing Lab: see note [facility] LB Immunoglobulin G, Qn, Serum Reviewed date:02/13/2025 08:22:32 PM Interpretation: Performing Lab: Notes/Report: [facility] , Immunoglobulin G, Qn 377 429-3653 mg/dL Performed at: [address] [id number] [employer]: Aleks Ferreira PhD, Phone: [phone] Performing Lab: see note [facility] Manual Differential Reviewed date:02/13/2025 08:22:33 PM Interpretation: Performing Lab: Notes/Report: [facility] , Segmented Neutrophils % Manual 72.0 43.0-75.0 [...] 0.00-0.10 10 3/uL Performing Lab: see note [facility] LB PROF 14(COMP METB) Reviewed date:02/13/2025 08:22:32 PM Interpretation: Performing Lab: Notes/Report: [facility] , Sodium 141 136-145 mmol/L Potassium 4.9 3.5-5.1 mmol/L Chloride 104 98-107 mmol/L Carbon Dioxide 31.2 21.0-32.0 mmol/L Anion Gap 10.7 Glucose 93 74-106 mg/dL Blood Urea Nitrogen 30.0 7.0-18.0 mg/dL Creatinine 1.19 0.70-1.30 mg/dL Estimated GFR ( Pretty >60 >=60 mL/min/1.73m 2 Estimated GFR (Non- Glenny >60 >=60 mL/min/1.73m 2 BUN Creatinine Ratio 25.2 Calcium 9.6 8.5-10.1 mg/dL Bilirubin Total 0.5 0.2-1.0 mg/dL Aspartate Amino Transferase 29 15-37 U/L Alanine Aminotransferase 33 16-63 U/L Alkaline Phosphatase 62 46-116 U/L Total Protein 7.3 6.4-8.2 g/dL Albumin Level 4.4 3.4-5.0 g/dL Globulin 2.9 Albumin Globulin Ratio 1.5 Performing Lab: see note ML - [facility] LB LDH Reviewed date:02/13/2025 08:22:32 PM Interpretation: Performing Lab: Notes/Report: [facility] , Lactate Dehydrogenase 208 85-227 U/L Performing Lab: see note - [facility] LB CBC AUTO DIFF Reviewed date:08/15/2024 02:54:14 PM Interpretation: Performing Lab: Notes/Report: [facility] , White Blood Count 3.6 4.0-11.0 10 [...] Performing Lab: see note ML - [facility] LB CBC AUTO DIFF Reviewed date:07/16/2024 04:20:11 PM Interpretation: Performing Lab: Notes/Report: [facility] , White Blood Count 4.2 4.0-11.0 10 [...] 3/uL Performing Lab: see note ML - [facility] VITAMIN D 25 [place] Reviewed date:06/03/2024 08:50:34 PM Interpretation: Performing Lab: Notes/Report: [facility] , Vitamin D 74.8 <20 ng/mL Vit D deficient 20-<30 ng/mL Vit D insufficient 30-100 ng/mL Vit D sufficient >100 ng/mL Potential Toxicity Performing Lab: see note - [facility] FREE T4 Reviewed date:06/03/2024 08:50:33 PM Interpretation: Performing Lab: Notes/Report: [facility] Free T4 0.79 0.76-1.46 ng/dL Performing Lab: see note - [facility] FREE T3 Reviewed date:06/03/2024 08:50:33 PM Interpretation: Performing Lab: Notes/Report: [facility] Free T3 3.68 2.18-3.98 pg/mL Performing Lab: see note - [facility] CA echo doppler complete Reviewed date:02/13/2025 08:22:32 PM Interpretation: Performing Lab: Notes/Report: Source Facility: [place] [address] [place] [address] Cardiology Report Signed Patient: KING DAVIS MR#: [id number] : 1960 Acct:[id number] Age/Sex: 64 / M ADM Date: 02/12/25 Loc: CARD Attending Dr: George William M.D. Ordering Physician: George William M.D. Date of Service: 02/12/25 Procedure(s): CA echo doppler complete Accession Number(s): [id number] cc: George William M.D.; Ryan Hendrickson M.D. Patient Name: KING DAVIS MR#: [id number] : 1960 Exam Date: 02/12/2025 Ordering Doctor: DR GEORGE WILLIAM M.D. ECHOCARDIOGRAM REPORT PROCEDURE: CA ECHO DOPPLER COMPLETE INDICATIONS: Mitral valve regurgitation, hypertensive heart disease, atrial fibrillation COMPARISON: None. DESCRIPTION: COMPLETE ECHOCARDIOGRAM Real-time transthoracic echocardiography with 2D, M-mode, spectral and color flow Doppler performed. QUALITY: Technical quality was good. LEFT VENTRICLE: Normal chamber size. Proximal septal hypertrophy (sigmoid septum). Normal systolic function. Estimated left ventricular ejection fraction is 65%. LV EF: Normal left ventricular ejection fraction, (>55%). DIASTOLIC: Diastolic function is indeterminate. ATRIAL SEPTUM: Visually appears intact. LEFT ATRIUM: Moderate dilatation. RIGHT ATRIUM: Moderate dilatation. RIGHT VENTRICLE: Normal chamber size. Normal right ventricular systolic function. TRICUSPID VALVE: Normal mobility and thickness. No stenosis with trivial regurgitation. No evidence of pulmonary hypertension. RVSP 28 mmHg MITRAL VALVE: Normal mobility and thickness. No evidence of mitral valve stenosis. There is no mitral annular calcification. Mild mitral regurgitation. AORTIC VALVE: Normal trileaflet appearance. No visible sclerosis. Normal leaflet mobility. No evidence of aortic valve stenosis. No aortic regurgitation. AORTIC ROOT: Normal diameter and appearance, measuring 3.3 cm. Ascending aorta is normal in size, measuring 3.1 cm. PULMONIC VALVE: Normal thickness and mobility. No stenosis. Trivial regurgitation. PERICARDIUM: No evidence of pericardial effusion. IVC: Collapses with inspirations. IVC is normal in size. PLEURA: CONCLUSION: 1. Normal left ventricular size and systolic function. Estimated LVEF is 65%. 2. Normal right ventricular size and systolic function. 3. Moderate biatrial dilatation. 4. Mild mitral regurgitation. 5. Normal right-sided pressures. Adult Echocardiography Procedure Report Left Ventricle LVEDD (3.7 - 5.6 cm): 5.23 cm LVESD (2.2 - 4.0 cm): 3.44 cm LVIVS thickness (0.6 - 1.2 cm): 1.33 cm LVPW thickness (0.5 - 1.0 cm): 1.00 cm e': 0.08 m/s E - e': 7.91 LVOT Max Gradient: 1.48 mm[Hg] LVOT Area (cm2): 0.61 m/s Peak Velocity (LVOT): 0.61 m/s Mean Velocity (LVOT): 0.38 m/s LVOT Diameter 2.75 cm Left Atrium LA Volume Index (2D A2C): 42.71 ml/m2 Left Atrium Systolic Dimension: 4.65 cm Mitral Valve MV E to A Ratio: 1.46 Mitral Valve A-Wave Peak Velocity: 0.42 m/s Mitral Valve E-Wave Peak Velocity: 0.61 m/s Right Ventricle Aorta AO Root Diam: 3.26 cm Ascending Ao Diam: 3.09 cm Aortic Valve AoV Area (Peak Tahir): 3.41 cm2, 3.41 cm2 AoV Area (VTI): 3.78 cm2, 3.78 cm2 Peak Velocity(Antegrade Flow): 1.05 m/s Peak Gradient(Antegrade Flow): 4.45 mm[Hg] Mean Velocity(Antegrade Flow): 0.75 m/s Mean Gradient(Antegrade Flow): 2.48 mm[Hg] Velocity Time Integral: 21.96 cm Tricuspid Valve Peak Velocity (Regurgitant Flow): 1.79 m/s, 2.50 m/s Pulmonic Valve Mean Gradient: 1.09 mm[Hg] Mean Velocity: 0.48 m/s Peak Velocity: 0.75 m/s, 0.75 m/s Peak Gradient: 2.27 mm[Hg], 2.27 mm[Hg] Right Atrium Right Atrium Systolic Pressure: 41.21 ml, 41.21 ml Dictated by: Rick Huang M.D. on 02/12/2025 at 19:21 Approved by: Rick Huang M.D. on 02/12/2025 at 19:25 Dictated By: RICK HUANG Signed By: 02/12/251925 DD/ 24 TD/TT: Wax Ball Molder: [place] [address] Cardiology Report Signed Patient: CHRISTA DAVIS MR#: [id number] : 1960 Acct:[id number] Age/Sex: 64 / M ADM Date: 02/12/25 Loc: CARD Attending Dr: George William M.D. Ordering Physician: George William M.D. Date of Service: 02/12/25 Procedure(s): CA ech o doppler complete Accession Number(s): [id number] cc: George William; Ryan Hendrickson M.D. Patient Name: KING DAVIS MR#: [id number] : 1960 Exam Date: 02/12/2025 Ordering Doctor: DR GEORGE WILLIAM M.D. ECHOCARDIOGRAM REPORT PROCEDURE: CA ECHO DOPPLER COMPLETE INDICATIONS: Mitral valve regurgitation, hypertensive heart disease, atrial fibrillation COMPARISON: None. DESCRIPTION: COMPLET E ECHOCARDIOGRAM Real-time transthoracic echocardiography wit h 2D, M-mode, spectral and color flow Doppler performed. QUALITY: Technical quality was good. LEFT VENTRICLE: Norm al chamber size. Proximal septal hypertrophy (sigmoid septum). Normal syst olic function. Estimated left ventricular ejection fraction is 65%. LV EF: Normal left ventricular ejection fraction, (>55%). DIASTOLIC: Diastolic function is indeterminate. ATRIAL SEPTUM: Visua lly appears intact. LEFT ATRIUM: Moderat e dilatation. RIGHT ATRIUM: Modera te dilatation. RIGHT VENTRICLE: Nor mal chamber size. Normal right ventricular systolic function. TRICUSPID VALVE: Nor mal mobility and thickness. No stenosis with trivial regurgitation. No evidence of pulmonary hypertension. RVSP 28 mmHg MITRAL VALVE: Normal mobility and thickness. No evidence of chirag l valve stenosis. There is no mitral annular calcification. Mild mitral regurgitation. AORTIC VALVE: Normal trileaflet appearance. No visible sclerosis. Normal leaflet mobility. No evidence of aorti c valve stenosis. No aortic regurgitation. AORTIC ROOT: Normal diameter and appearance, measuring 3.3 cm. Ascending aorta is normal in s ize, measuring 3.1 cm. PULMONIC VALVE: Norm al thickness and mobility. No stenosis. Trivial regurgitation. PERICARDIUM: No evid ence of pericardial effusion. IVC: Collapses with inspirations. IVC is normal in size. PLEURA: CONCLUSION: 1. Normal left ventricular size and systolic function. Estimated LVEF is 65%. 2. Normal right ventricular size and systolic function. 3. Moderate biatrial dilatation. 4. Mild mitral regurgitation. 5. Normal right-side d pressures. Adult Echocardiograp hy Procedure Report Left Ventricle LVEDD (3.7 - 5.6 cm) : 5.23 cm LVESD (2.2 - 4.0 cm) : 3.44 cm LVIVS thickness (0.6 - 1.2 cm): 1.33 cm LVPW thickness (0.5 - 1.0 cm): 1.00 cm e': 0.08 m/s E - e': 7.91 LVOT Max Gradient: 1 .48 mm[Hg] LVOT Area (cm2): 0.61 m/s Peak Velocity (LVOT) : 0.61 m/s Mean Velocity (LVOT) : 0.38 m/s LVOT Diameter 2.75 cm Left Atrium LA Volume Index (2D A2C): 42.71 ml/m2 Left Atrium Systolic Dimension: 4.65 cm Mitral Valve MV E to A Ratio: 1.46 Mitral Valve A-Wave Peak Velocity: 0.42 m/s Mitral Valve E-Wave Peak Velocity: 0.61 m/s Right Ventricle Aorta AO Root Diam: 3.26 cm Ascending Ao Diam: 3 .09 cm Aortic Valve AoV Area (Peak Tahir): 3.41 cm2, 3.41 cm2 AoV Area (VTI): 3.78 cm2, 3.78 cm2 Peak Velocity(Antegr danial Flow): 1.05 m/s Peak Gradient(Antegr danial Flow): 4.45 mm[Hg] Mean Velocity(Antegr danial Flow): 0.75 m/s Mean Gradient(Antegr danial Flow): 2.48 mm[Hg] Velocity Time Integr al: 21.96 cm Tricuspid Valve Peak Velocity (Regurgitant Flow): 1.79 m/s, 2.50 m/s Pulmonic Valve Mean Gradient: 1.09 mm[Hg] Mean Velocity: 0.48 m/s Peak Velocity: 0.75 m/s, 0.75 m/s Peak Gradient: 2.27 mm[Hg], 2.27 mm[Hg] Right Atrium Right Atrium Systoli c Pressure: 41.21 ml, 41.21 ml Dictated by: Rick Huang M.D. on 02/12/2025 at 19:21 Approved by: Rick Huang M.D. on 02/12/2025 at 19:25 Dictated By: RICK HUANG Signed By: 02/12/251925 DD/ 24 TD/TT: Wax Ball Molder: Reason For Referral Diagnosis 1 Foreign body (FB) in soft tissue (M79.5) Referral Organization [facility] Referring Provider First Name Nabeel Referring Provider Last Name Madhavi Referring Provider Speciality Family [facility] amelie Referred Provider Ryan Yang Referred Provider [...] Problem Status W/U Status Risk Notes Problem [id number] Primary osteoarthritis, right shoulder (M19.011) Active confirmed Problem Eruptive melanocytic nevi (500332993) Melanocytic nevi, unspecified (D22.9) Active confirmed Problem Leukopenia (47828336) Decreased white blood cell count, unspecified (D72.819) Active confirmed Problem 15445886 Vitamin D deficiency, unspecified (E55.9) Active confirmed Problem 17585996 Sleep apnea, unspecified (G47.30) Active confirmed Problem 64997532 Impacted cerumen , bilateral (H61.23) Active confirmed Problem 76842023 Unspecified atri al fibrillation (I48.91) Active confirmed Problem Cerebrovascular disease (60249744) Other cerebrovascular disease (I67.89) Active confirmed Problem 121387189 Raynaud's syndro me without gangrene (I73.00) Active confirmed Problem Orthostatic hypotension (94562163) Orthostatic hypotension (I95.1) Active confirmed Problem 615498904391834 Primary osteoarthritis, left shoulder (M19.012) Active confirmed Problem 79474658 Pain in right shoulder (M25.511) Active confirmed Problem 2222182880 Pain in left shoulder (M25.512) Active confirmed Problem 781134298120089 Other forms of scoliosis, site unspecified (M41.80) Active confirmed Problem 68975538 Other intervertebral disc degeneration, 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 confirmed Problem 69304592 Cervicalgia (M54.2) Active confirmed Problem 35560061 Loss of height (R29.890) Active confirmed Problem Aphasia (71847015) Aphasia (R47.01) Active conf irmed Problem Contusion and laceration of left cerebrum with loss of consciousness greater than 24 hours without return to pre-existing conscious level with patient surviving, subsequent encounter (S06.326D) Active confirmed Problem Atrial fibrillation (78710684) Atrial fibrillation (I48.91) Active confirmed Problem Spinal stenosis (04820853) Spinal stenosis (M48.00) Active confirmed Problem Edema (62686439) Edema (R60.9) Active confirmed Problem Hypothyroid (48833222) Hypothyroid (E03.9) Active confirmed Problem Attention deficit disorder (61244805) ADD (attention deficit disorder) (F90.0) Active confirmed Problem Sleep apnea (17313891) Sleep apnea (G47.30) Active confirmed Problem Eczema (57052020) Eczema (L30.9) Active confirm ed Problem Cerebrovascular disease (58505631) Other cerebrovascular disease (I67.89) Active confirmed Problem Acute combined systolic and diastolic heart failure (788763832101707) 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) Active confirmed Problem Lumbar radiculopathy (471219001) Lumbar radiculopathy (M54.16) Active confirmed Problem Pain in limb (29129918) Foot pain, left (M79.672) Active confirmed Problem Osteoarthritis of knee (073728545) Osteoarthritis of right knee (M17.9) Active confirmed Problem Well adult (697351824) Well adult (Z00.00) Active confirmed Problem Degenerative disc disease (97961360) DDD (degenerative disc disease), lumbar (M51.36) Active confirmed Problem Thrombocytopenia (453214571) Thrombocytopenia (D69.6) Active confirmed Problem Vitamin B12 deficiency (non anemic) (18629535) B12 deficiency (E53.8) Active confirmed Problem Dysarthria (9943995) Dysarthria (R47.1) Active confirmed Problem Degeneration of cervical intervertebral disc (60557607) Degenerative cervical disc (M50.30) Active confirmed Problem Neutropenia (236125182) Neutropenia (D70.9) Active confirmed Problem Pain in left foot (814719091421269) Left foot pain (M79.672) Active confirmed Problem Leukopenia (39285310) Leukopenia (D72.819) Active confirmed Problem Obstructive sleep apnea syndrome (01716516) Moderate obstructive sleep apnea (G47.33) Active confirmed Problem Asthma without status asthmaticus (29674963) AB (asthmatic bronchitis) (J45.909) Active confirmed Problem Seborrheic keratosis (81631690) Keratosis, seborrheic (L82.1) Active confirmed Problem Hypothyroidism (72757612) Hypothyroidism, unspecified type (E03.9) Active confirmed Problem Shoulder impingement syndrome (021612466) Shoulder impingement syndrome (M75.40) Active confirmed Problem Vitamin B deficiency (65558042) Deficiency of vitamin B12 (E53.8) Active confirmed Problem Accelerated essential hypertension (13143786) Accelerated essential hypertension (I10) Active confirmed Problem Attention deficit disorder (89183325) ADD (attention deficit disorder) (F98.8) Active confirmed Problem Arthritis of both knees (9664540800871039) Arthritis of both knees (M17.0) Active confirmed Problem Osteoarthritis of knee (060269063) Osteoarthritis of knee, unilateral (M17.10) Active confirmed Problem Diastolic heart failure (454002328) CHF (congestive heart failure), NYHA class I, unspecified failure chronicity, diastolic (I50.30) Active confirmed Problem Low back pain (211464794) Low back pain, unspecified (M54.50) Active confirmed Vital Signs Blood pressure diastolic 90 mm Hg 08/13/2024 Height 66.5 in 04/10/2025 Blood pressure systolic 134 mm Hg 08/13/2024 Weight 183.4 lbs 08/13/2024 BMI 29.15 kg/m2 08/13/2024 Procedures Procedure Date Ordered Date Performed Result Body Sit e Colonoscopy 05/29/2024 Normal Encounters Encounter Location Date Provider Diagnosis [address] [place] [address] 08/13/2024 Nabeel Hoy B12 deficiency E53.8 and Foreign body (FB) in soft tissue M79.[address] [address] 01/07/2025 Nabeel Hoy B12 deficiency E53.8 [address] [place] [address] 02/06/2025 Nabeel Hoy Deficiency of vitami n B12 E53.8 [address] [place] [address] 03/13/2025 Nabeel Hoy Deficiency of vitami n B12 E53.8 [address] [place] [address] 04/10/2025 Nabeel Hoy Deficiency of vitami n B12 E53.8 [address] [place] [address] 05/12/2025 Nabeel Hoy B12 deficiency E53.8 [facility] [address] [place] [address] 07/15/2024 Nabeel Hoy B12 deficiency E53.8 [facility] [address] [place] [address] 09/12/2024 Nabeel Hoy B12 deficiency E53.8 [address] [place] [address] 10/08/2024 Nabeel Hoy B12 deficiency E53.8 [facility] [address] [place] [address] 11/05/2024 Nabeel Hoy Deficiency of vitami n B12 E53.8 [facility] [address] [place] [address] 11/25/2024 Nabeel Hoy Deficiency of vitami n B12 E53.8 [facility] [address] [place] [place] [address] 01/21/2025 Tracy Gaby [facility] [address] [place] [address] 10/04/2024 Nabeel Hoy Accelerated essentia l hypertension I10 and Leukopenia D72.819 [facility] [address] [place] [address] 10/07/2024 Nabeel Chestery [facility] [address] [place] [address] 10/09/2024 Nabeel Hoy Assessments Encounter Date Diagnosis (ICD Code) Assessment Notes Treatment Notes Treatment Clinical Notes Section Notes 07/15/2024 B12 deficiency (ICD-10 - E53.8) 08/13/2024 [...] Deficiency of vitamin B12 (ICD-10 - E53.8) 03/13/2025 Deficiency of vitamin B12 (ICD-10 - E53.8) 04/10/2025 Deficiency of vitamin B12 (ICD-10 - E53.8) 05/12/2025 B12 deficiency (ICD-10 - E53.8) 10/04/2024 Leukopenia (ICD-10 - D72.819) 10/04/2024 Accelerated essential hypertension (ICD-10 - I10) Plan Of Treatment Pending Test Test Name Order Date CMP (COMPLETE METABOLIC PANEL) 3 UA (URINALYSIS, COMPLETE) 07/04/2023 CBC WITH DIFF [...] (HIPS,PELVIS,SPINE ) 03/13/2023 TAYLOR Ankle Brachial Index (83239) 024 CBC AUTO DIFF 09/05/2023 CULTURE URINE 07/04/2023 BREE - VITAMIN D 12/28/2023 PROTEIN 24HR URINE 07/07/2023 TESTOSTERONE, TOTAL 10/01/2023 THYROID PROFILE WITH TSH 08/24/2023 THYROID PROFILE WITH TSH 09/05/2023 URINE MICROSCOPIC ONLY 07/04/2023 VITAMIN B12 12/28/2023 VITAMIN B12 01/22/2024 US KIDNEYS BLADDER 07/03/2023 XR CSPINE 2_3 VIEWS 03/13/2023 XR DEXA BONE DENSITY 03/03/2023 THYROID PANEL (T4/TSH/FREE T3) 3 ECHOCARDIO M/2D COMPLETE 06/26/2023 XR SHOULDER RICHARD 2V or > 03/13/2023 U24 Creatinine 07/07/2023 XR knee RT 4V 05/13/2025 Next Appt Details Provider Name:Nabeel Peña Hendrickson, 09:00:00 AM, [address] [place], [address], Provider Name:Tracy Griffin , 07/29/2025 11:30:00 AM, [address] [place], [address], Insurance Providers Payer Name Payer Address Payer Phone Subscriber Number Group Number Insured Name Patient Relationship to Insured Coverage Start Date Coverage End Date [employer]M ACCESS PPO PLUS LOCAL PLAN [address] [place] [address] [phone] [id number] EdieSaira arboleda Spouse - patient is the spouse of the insured 3 [place] [address] [id number] King Davis Self - patient is the insured 4 [...] 01/07/2025 1 mL Cyanocobalamin 02/06/2025 1 mL Cyanocobalamin 03/13/2025 1 mL Cyanocobalamin 04/10/2025 1 mL Cyanocobalamin 05/12/2025 1 mL Medical (General) History Medical History [...] with patient surviving Surgical History Surgery Date(Month/Year) Left knee replacement Fusion Cervical Spine right shoulder Left inguinal hernia repair neck surgery hernia repair Right Labrum repair JAMIN 07/11/23 Colonoscopy 05/29/24 left knee replacement
--- OUTSIDE RECORDS SUMMARY | 2025-05-13 12:17 | XMS_ITS | Clinical Summary ---
Author Organization [facility] Address [address] [place] [address] Care Team Providers Care Oil Well Driller Name Role Phone Ryan Hendrickson MD Primary Care Provider [phone] Allergies No known active allergies Medications ibuprofen [...] ORAL) Take by mouth. 08/31/20 21 Active [place] Aspartate 20 mg cap Take 1 capsule by mouth once daily. Active Vit [id number]-B5-B6 251-3-559-2-2 mg/mL soln Refill(s) 0 05/07/20 19 Active [...] is lower risk 8 04/26/2023 Data from: https://www.neighborhoodatlas.medicine.[facility].edu/. Last address used for calculation [address] [place] [address] 04/26/2023 Sex and Gender Information Value Date [...] BASIC METABOLIC PNL (12/04/2017 3:22 PM EDT) [facility] Glucose 74 74 - 99 mg/dL 12/05/2017 10:[address] [facility] Comment: The [place] Diabetes Association (ADA) provides guidance for cutoff [...] Standards of Medical Care in Diabetes 2016, [place] Diabetes Association. Diabetes Care. 2016.39(Suppl 1). BUN 21 9 - 24 mg/dL 12/05/2017 10:35 AM [facility] Creatinine 1.16 0.73 - 1.22 mg/dL 12/05/2017 10:35 AM [facility] Sodium 139 136 - 144 mmol/L 12/05/2017 10:35 AM [facility] Potassium 4.6 3.7 - 5.1 mmol/L 12/05/2017 10:35 AM [facility] Chloride 101 97 - 105 mmol/L 12/05/2017 10:35 AM [facility] CO2 23 22 - 30 mmol/L 12/05/2017 10:35 AM [facility] Anion Gap 15 9 - 18 mmol/L 12/05/2017 10:35 AM [facility] Calcium 10.1 8.5 - 10.2 mg/dL 12/05/2017 10:35 AM [facility] eGFR- >60 12/05/2017 10:35 AM [facility] eGFR-All Other Races >60 . 12/05/2017 10:35 AM [facility] Comment: eGFR (Estimated GFR) Units of [...] [facility] [address] [place] [address] from Last 3 Months or Most Recently Relevant to Health Maintenance Insurance MEDICARE Member Subscriber Plan / Payer (Ef fective 2013-Present) Name:Vianey Lacey Member ID:[id number] Relation to Subscriber:Self Name:AbhijitVianey Subscriber ID:[id number] Payer ID:Not on file Group ID:Not on file Type:Medicare Address: [facility] [place] [id number] ACCESS PPO Care Teams Oil Well Driller Relationship Specialty Start Date End Date Ryan Hendrickson MD PCP - General Family Medicine 12/04/17
--- OUTSIDE RECORDS SUMMARY | 2025-05-13 12:17 | XMS_ITS | Clinical Summary ---
Author Organization [employer] s tem Address [id number] [address] [place] [address] Care Team Providers Care Membership Sales Advisor Name Role Phone Ryan Hendrickson MD Primary Care Provider [phone] Allergies No known active allergies Medications liothyronine [...] Orthopedic Surgery [address] [facility] [place] [address] Primary osteoarthritis of right knee 02/18/2025 10:00 AM EDT Office Visit [facility] [address] [place] [address] Alf Anthony MD Primary osteoarthritis of right [...] Procedure visit [facility] On [address] [address] 08/06/2025 10:00 AM EST Hospital Encounter [facility] Surgery [address] [place], [place] [address] [place] [address] Alf Anthony MD [address] [place] [address] 08/06/2025 10:00 AM EST - 08/06/2025 12:30 PM EST Surgery [facility] - Surgery [facility] [address] [address] Alf Anthony MD [address] [place] [address] ROBOTIC REPLACEMENT TOTAL JOINT KNEE [13487 (CPT )] Scheduled Procedures Name Priority Associated [...] Margaret [employer] Implanted Type Area Ham Pumper Device Identifier Shelf Expiration Date Model / Serial / Lot Brng Tib [id number] Kn Ant - [id number] Implanted:Qty: 1 on 09/05/2016 by Alf Anthony MD at [facility] Bearing Left: Knee Biomet 08/24/2021 [id number] / / [id number] Cement Bn [place] Radpq 40g Rpl [id number] - [id number] Implanted:Qty: 2 on 09/05/2016 by Alf Anthony MD at [facility] Cement Left: Knee Walter [employer] 04/24/2021 [id number] [id number] / / [id number] Ty Tib 79mm Cocr Kn I Beam - [id number] Implanted:Qty: 1 on 09/05/2016 by Alf Anthony MD at [facility] Orthopedic Implant Left: Knee Biomet 07/06/2026 [id number] / / [id number] Cmpt Fem Kn Lt 70mm Cr Cmnt - [id number] Implanted:Qty: 1 on 09/05/2016 by Alf Anthony MD at [facility] Orthopedic Implant Left: Knee [employer]omet 07/27/2026 [id number] / / [id number] Cmpt Ptlr Thn 34mm 3 Pg Kn Ser - [id number] Implanted:Qty: 1 on 09/05/2016 by Alf Anthony MD at [facility] Orthopedic Implant Left: Knee [employer]omet 08/25/2021 [id number] / / [id number] Procedures Procedure Name Priority Date/Time Associated Diagnosis Comments WA ARTHROCENTESIS ASPIR&/INJ MAJOR JT/BURSA W/O US Routine 02/18/2025 10:56 AM EDT Primary osteoarthritis of right knee XR KNEE RT MIN 4 VWS Routine 02/18/2025 10:47 AM EDT Primary osteoarthritis of right knee from Last 3 Months Results * WA ARTHROCENTESIS ASPIR&/INJ MAJOR JT/BURSA W/O US (02/18/2025 [...] Date Diagnosed Date Autogenerated Problem 02/25/2025 Insurance [facility] Advance Directives * Full Code (Latest Code Status on File) Date Activated Date Inactivated Comments 09/05/2016 8:43 PM 09/08/2016 4:31 PM Care Teams Membership Sales Advisor Relationship Specialty Start Date End Date Ryan Hendrickson MD PCP - General 07/05/16
--- OUTSIDE RECORDS SUMMARY | 2025-05-13 12:17 | XMS_ITS | Encounter Summary ---
Author Organization [facility] Address [address] [place] [address] Care Team Providers Care Market Sales Manager Name Role Phone Ryan Hendrickson MD Primary Care Provider [phone] Reason for Visit * Reason Comments Med Change Request Encounter Details Date Type Department Care Team (Late Contact Info) Description 08/02/[address] [address] George Loza MD [address] [facility] [address] [facility] [place] [address] Paroxysmal atrial fibrillation (CMS/HCC); Essential [...] Description 07/24/2025 11:00 AM EDT Office Visit [facility] [address] [place] [address] George Loza MD [address] [facility] [place] [address] documented as of this encounter Visit Diagnoses Diagnosis Paroxysmal atrial fibrillation (CMS/HCC) Atrial fibrillation Essential hypertension Unspecified essential hypertension documented in this encounter Care Teams Market Sales Manager Relationship Specialty Start Date End Date Ryan Hendrickson MD [address] [facility] [place] [address] PCP - General 06/28/23 documented as of this encounter
--- OUTSIDE RECORDS SUMMARY | 2025-05-13 12:17 | XMS_ITS | Encounter Summary ---
Author Organization [facility] Address [address] [facility] [place] [address] Care Team Providers Care Solid Waste Collection Worker Name Role Phone Ryan Hendrickson MD Primary Care Provider [phone] Encounter Details Date Type Department Care Team (Late st Contact Info) Description 06/12/2024 Orders Only [facility] [address] [place] [address] Román Dawson MD [address] [place] [address] Social History Tobacco Use Types Packs/Day Years [...] [facility] [address] [place] [address] Román Dawson MD [address] [place] [address] documented as of this encounter Procedures Procedure Name Priority Date/Time Associated Diagnosis Comments MISC TEST ([facility] TESTING ONLY) Routine 06/12/2024 11:04 AM EDT T3, FREE Routine 06/03/2024 9:17 AM EDT TSH Routine 06/03/2024 9:17 AM EDT T4, FREE Routine 06/03/2024 9:17 AM EDT documented in this encounter Results * MISC TEST ([facility] TEST[facility] ONLY) (06/12/2024 11:04 AM EDT) Result [facility] Román Dawson MD LAB BLOOD ORDERABLES Final Re sult * T3, free (06/03/2024 9:17 AM EDT) Blood Venous blood specimen / Unknown Result [facility] us Román Dawson MD LAB BLOOD ORDERABLES Final Re sult * T4, free (06/03/2024 9:17 AM EDT) Blood Venous blood specimen / Unknown Result [facility] us Román Dawson MD LAB BLOOD ORDERABLES Final Re sult * TSH (06/03/2024 9:17 AM EDT) Blood Venous blood specimen / Unknown Result Arden Dawson MD LAB BLOOD ORDERABLES Final Re sult documented in this encounter Visit Diagnoses Not on filedocumented in this encounter Care Teams Solid Waste Collection Worker Relationship Specialty Start Date End Date Ryan Hendrickson MD PCP - General Family Medicine 05/13/24 documented as of this encounter
--- OUTSIDE RECORDS SUMMARY | 2025-05-13 12:17 | XMS_ITS | Clinical Summary ---
Author Organization [facility] Address [address] [place] [address] Care Team Providers Care Government Sales Manager Name Role Phone Ryan Hendrickson MD Primary Care Provider [phone] Allergies Active Allergy Reactions Criticality Noted Date [...] [facility] [address] [place] [id number] Román Dawson MD [address] [place] [address] Health Maintenance Due Date Last Done Comments CT Colonography 1959 FIT-DNA 1959 FIT 1959 FOBT 1959 Sigmoidoscopy 1959 Influenza Vaccine (#1) 2025 3, 07/25/2022, 08/10/2021, Additional history exists Colonoscopy 05/29/2034 05/29/2024 Colorectal Cancer Screening 05/29/2034 Pneumococcal Vaccine: 65+ Years Completed 4 Insurance [facility] MEDICARE Care Teams Government Sales Manager Relationship Specialty Start Date End Date Ryan Hendrickson MD PCP - General Family Medicine 05/13/24
--- OUTSIDE RECORDS SUMMARY | 2025-05-13 14:53 | XMS_ITS | CCD ---
Author Organization [facility] Care Team Providers Care Emergency Room Orderly Name Role Phone Ilda Hendrickson Primary Care Physician [phone] [place] PRIETO, Jovita Unavailable Jovita Virk MD [...] Unavailable Ilda Hendrickson MD Primary Care Provider [phone] ILDA HENDRICKSON Primary Care Unavailable SHAWANDA HERNANDEZ Attending Unavailable Sandoval Knight Unavailable MD Ilda Hendrickson Primary Care Provider [phone] MD Tracy Griffin Attending Provider [phone] Ilda Hendrickson Primary Care Unavailable Tracy Griffin Attending Unavailable Tracy Griffin Admitting Unavailable Ilda Hendrickson MD Primary Care Provider [phone] ROMÁN HOANG Attending Unavailable SAGE CAM Attending Unavailable Unavailable [facility] Ilda Regan MD Primary Care Provider [phone] Shawanda MEJIA Attending Unavailable Vianey MENDOZA Attending Unavailable Vianey MENDOZA Attending Unavailable Vianey MENDOZA Attending Unavailable NILShawanda Landa Attending Unavailable Shawanda MEJIA Attending Unavailable Ilda Hendrickson MD Primary Care Provider [phone] Ilda Hendrickson MD Primary Care Provider [phone] JOE WILLIAM Attending Unavailable BAKARI SCOTT [...] 4 Patient reported problems (finding) [facility] General [facility] [place] (1 source) Ciprofloxacin Drug Allergy 3 [facility] Repository (1 source) Ciprofloxacin; Translations: [Cipro] Drug Allergy [facility] Repository (1 source) No Known Medication Allergies; Translations: [No Known Medication Allergies] Propensity to adverse reactions (disorder) [facility] Repository Medications Current Medications Medication [...] q4wk, # 10 mL, Refills(s) 1, Pharmacy: [facility]/pharmacy #[id number], 167, cm, 10/05/21 11:32:00 [...] take 1 capsule by mouth once daily [place]-3 Fatty Acids (FISH OIL) 1000 MG CAPS [...] 1 capsule by mouth once darius ly [place] Aspartate 20 mg cap Take 1 capsule by mouth once daily. 0 Active Comment on above: Take 1 capsule by mo [facility] once daily. memantine hydrochloride 5 mg oral tablet (5 sources) L-maawxw-S-aspartat e Receptor Antagonist Start: 2 End: 2 [...] Daily, # 90 cap(s), Refills(s) 3, [id number] 170, cm, 10/21/24 11:01:00 EST, Height/Length Dosing, 84, kg, 10/21/24 11:01:00 EST, Weight Dosing Start Date: 10/21/24 Status: Ordered Start: 11-24-2021 End: 11-19-2022 take 1 capsule by mouth twice daily Flomax 0.4 mg Cap 0.4 mg = 1 cap(s), Oral, BID, X 90 day(s), # 180 cap(s), Refills(s) 3, [id number] 167, cm, 10/05/21 11:32:00 EST, Height/Length Dosing, 83, kg, 10/05/21 11:32:00 EST, Weight Dosing Start Date: 11/24/21 Stop Date: 11/19/22 Status: Ordered Start: 02-08-2017 take 1 capsule by [facility] once daily tamsulosin 0.4 mg Cap 0.4 mg = 1 cap(s), Oral, Daily, # 90 cap(s), Refills(s) 3, [id number] 170, cm, 05/07/24 15:15:00 EDT, Height/Length Dosing, 83, kg, 05/07/24 15:15:00 EDT, Weight Dosing Start Date: 06/20/24 Status: Ordered take 1 capsule by [facility] every twenty-four hours in the morning tamsulosin (FLOMAX) 0.4 mg capsule,extended release 24hr Take 1 capsule (0.4 mg total) by mouth in the morning. Active Comment on above: 0.4 mg once daily. testosterone cypionate 200 mg/ml injectable solution (17 sources) Androgen Start: 05-03-2023 Depo-Testosterone 200 mg/mL intramuscular solution 300 mg, IntraMuscular, q4wk, # 10 mL, Refills(s) 1, Pharmacy: [facility]/pharmacy #[id number], 170, cm, 12/02/22 8:17:00 EST, Height/Length Dosing, 83.2, kg, 12/02/22 8:17:00 EST, Weight Dosing Start Date: 05/03/23 Status: Ordered Start: 09-07-2022 Depo-Testoster one 200 mg/mL intramuscular solution 300 mg, IntraMuscular, q4wk, # 10 mL, Refills(s) 1, [id number] 167, cm, 10/05/21 11:32:00 EST, Height/Length Dosing, 83, kg, 05/10/22 10:08:00 EDT, Weight Dosing Start Date: 09/07/22 Status: Ordered Start: 01-04-2022 Depo-Testoster one 200 mg/mL intramuscular solution 300 mg, IntraMuscular, q4wk, # 10 mL, Refills(s) 1, [id number] 167, cm, 10/05/21 11:32:00 EST, [...] sources) Long-term current use of 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; Translations: [buttermaker continuous churn (current) use of 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s] Onset: 4 Episodic [...] is normal. Thank you. Patient's informed. Normal [facility] XR KNEE RT MIN 4 VWSon 02-19 [...] Duncan MD on 02/19/2025 4:30 PM Normal [facility] $ Large Joint Injection: Ty alarcon [...] to prep the skin.). MANUALLY TRANSCRIBED RESULTS [facility] Orders Onlyon 02-13-2025 Orders Only [id number] Vianey Lacey 1960 M Date Provider Department [place] 02/13/2025 [id number], HISTORICAL CARD [facility] Family History Problem Relation Age of Onset Cancer Mother Diabetes Mother Coronary artery disease Father Stroke Father Cancer Father Family Status - Relation Status Age at Mother Father Sister Brother [facility] Office Visiton 01-21-2025 Follow-up visit [id number] Vianey Lacey 1960 M Date Provider Department Center 01/21/2025 Isa-PHILLIPDEVONJOE FLOWER [facility] Family History Problem Relation Age of Onset Cancer Mother Diabetes Mother Coronary artery disease Father Stroke Father Cancer Father Family Status - Relation Status Age at Mother Father Sister Brother Level of Service:63201 ME OFFICE/OUTPATIENT ESTABLISHED MOD MDM 30 MIN [facility] 36on 11-21-2024 36 Patient's would like you to review his most recent labs from 11/20/2024 and see if he should start lisinopril. 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 Nitza says he never started lisinopril because they were keeping an eye on his renal function. Recent BP's have been 141/84, 136/83, 143/87, 141/83. Also, she is looking into buying an infrared sauna, but wasn't sure how you felt about PJ using it with his heart and kidney issues. Please advise. Thanks! Normal [facility] Urology Office/Clinic Noteon 10-21-2024 Urology Office/Clinic Note Urology Office/Clinic Note Chief Complaint 1 year f/u HPI Staff 64yr old male pt here for 1yr f/u with PSA. Previous Dx: BPH with urinary obstruction, hypogonadism male, urge incontinence, ED *Tamsulosin 0.4mg QD PSA 09/06/21 - 0.70 06/15/22 - 0.79 He did have labs done @ [facility] but no PSA Dysuria: denies Incomplete [...] -Cont Tamsulosin wo changes. Refills sent to [facility]. -Complete PSA level soon. Will call pt [...] Urology [address], [place] [address] [phone] Additional Instructions: 1 yr w/ PSA and [...] levothyroxine 150 (more content not included)... Normal [facility] Comment on above: Result Comment: [...] with betadine and alcohol.). MANUALLY TRANSCRIBED RESULTS [facility] Ambulatory Visit Summaryon 1 10-13-2023 Ambulatory [...] Vianey MENDOZA MD Where: [facility] [address] [place] [address]- Medications What How Much When Instructions Unchanged [...] for choosing us for your care. Normal [facility] Office Visiton 07-16-2024 Follow-up visit [id number] Vianey Lacey 1960 M Date Provider Department Center 07/16/2024 241-[facility]ARI [facility] Family [facility] Problem Relation Age of Onset Cancer Mother Diabetes Mother Coronary artery disease Father Stroke Father Cancer Father Family Status - Relation Status Age at Mother Father Level of Service:48641 ME OFFICE/OUTPATIENT ESTABLISHED LOW MDM 20 MIN [facility] $ Large Joint Injection: R k neeon [...] with betadine and alcohol.). MANUALLY TRANSCRIBED RESULTS [employer] Orders Onlyon 06-11-2024 Orders Only [id number] AbhijitVianey Dayna 1960 M Date Provider Department Center 06/11/2024 Isa-[facility] Family History Problem Relation Age of Onset Cancer Mother Diabetes Mother Coronary artery disease Father Stroke Father Cancer Father Family Status - Relation Status Age at Mother Father [facility] Erythrocyte distribution wid th Auto (RBC) [Ratio]on 06-03-2024 Erythrocyte distribution width (RBC) [Ratio] 13.3 % 11.0-15.0 [facility] Estimated glomerular filtrat ion rate (GFR) non- Americanon 06-03-2024 GFR/1.73 sq M.predicted among non-blacks MDRD (S/P/Bld) [Vol rate/Area] mL/min/{1.73_m2} >=60 [facility] Hematocrit Auto (Bld) [Volum e fraction]on 06-03-2024 Hematocrit (Bld) [Volume fraction] 45.4 % 42.0-54.0 [facility] Hemoglobin [Mass/volume] in Bloodon 06-03-2024 Hemoglobin (Bld) [Mass/Vol] 15.4 g/dL 14.0-18.0 [facility] Laboratory - Chemistry and C hemistry - challengeon 06-03-2024 Albumin [Mass/Vol] 3.8 g/dL 3.4-5.0 [facility] Calcium [Mass/Vol] 8.9 mg/dL 8.5-10.1 [facility] Chloride [Moles/Vol] 101 mmol/L 98-107 [facility] CO2 [Moles/Vol] 31.2 mmol/L 21.0-32.0 [facility] Creatinine [Mass/Vol] 1.06 mg/dL 0.70-1.30 [facility] GFR/1.73 sq M.predicted MDRD (S/P/Bld) [Vol rate/Area] mL/min/{1.73_m2} >=60 [facility] Glucose [Mass/Vol] 91 mg/dL 74-106 [facility] Magnesium [Mass/Vol] 1.9 mg/dL 1.8-2.4 [facility] Potassium [Moles/Vol] 3.9 mmol/L 3.5-5.1 [facility] Sodium [Moles/Vol] 138 mmol/L 136-145 [facility] Urate [Mass/Vol] 4.7 mg/dL 3.5-7.2 [facility] Urea nitrogen [Mass/Vol] 18.0 mg/dL 7.0-18.0 [facility] Urea nitrogen/Creatinine [Mass ratio] 17.0 mg/mg [facility] Bilirubin Ql (U) Negative NEGATIVE [facility] Glucose (U) [Mass/Vol] Negative NEGATIVE [facility] Ketones Ql (U) Negative NEGATIVE [facility] pH (U) 5.5 [pH] 5.0-9.0 [facility] Specific gravity (U) [Rel density] 1.020 1.005-1.025 [facility] Urobilinogen Qn (U) 0.2 {Brenda'U}/dL 0.2-1.0 [facility] Laboratory - Specimen inform ationon 06-03-2024 Appearance (U) CLEAR CLEAR [facility] Color (U) YELLOW YELLOW [facility] Laboratory - Urinalysison Leukocyte esterase Test strip Ql (U) Negative NEGATIVE [facility] Mucus Ql (Urine sed) NONE SEEN NONE SEEN [facility] Nitrite Ql (U) Negative NEGATIVE [facility] Protein (U) [Mass/Vol] 6.9 mg/dL <=11.9 [facility] Protein Ql (U) Negative NEG/TRACE [facility] Leukocytes [#/volume] correc kim for nucleated erythrocytes in Blood by Automated counon 06-03-2024 WBC corrected for nucl RBC Auto (Bld) [#/Vol] 3.2 10 3/uL Low 4.0-11.0 [facility] MCH Auto (RBC) [Entitic mass ]on 06-03-2024 MCH (RBC) [Entitic mass] 29.7 pg 25.9-34.0 [facility] MCHC Auto (RBC) [Mass/Vol]on 06-03-2024 MCHC (RBC) [Mass/Vol] 33.9 g/dL 29.9-35.2 [facility] MCV Auto (RBC) [Entitic vol] on 06-03-2024 MCV (RBC) [Entitic vol] 87.5 fL 80.0-94.0 [facility] No Panel Informationon 06-03 25-Hydroxy Vitamin D Total 74.8 ng/mL [facility] Comment on above: <20 ng/mL Vit D defi cient20-<30 ng/mL Vit D [id number] ng/mL Vit D sufficient>100 ng/mL Potential Toxicity Parathyroid Hormone (Intact) 34 pg/mL 15-65 [facility] Comment on above: Performed at: [address] [id number] Director: Aleks Ferreira PhD, Phone: [phone] Phosphorus Level 2.9 mg/dL 2.6-4.7 [facility] Urine Bacteria NONE SEEN #/HPF NONE SEEN [facility] Urine Occult Blood Negative NEGATIVE [facility] Urine Random Creatinine 107.55 mg/dL 20.00-300.00 [facility] Urine RBC NONE SEEN #/HPF 0-2 [facility] Urine Squamous Epithelial Cells RARE #/LPF NONE/RARE [facility] Urine WBC NONE SEEN #/HPF NONE SEEN [facility] Platelet mean volume Auto (B ld) [Entitic vol]on 06-03-2024 Platelet mean volume (Bld) [Entitic vol] 9.5 fL 9.5-13.5 [facility] Platelets Auto (Bld) [#/Vol] on 06-03-2024 Platelets (Bld) [#/Vol] 126 10 3/uL Low 150-450 [facility] RBC Auto (Bld) [#/Vol]on RBC (Bld) [#/Vol] 5.19 10 6/uL 4.70-6.10 [facility] Serum or plasma anion gap de terminationon 06-03-2024 Anion gap [Moles/Vol] 9.7 mmol/L [facility] Urine protein/creatinine rat ioon 06-03-2024 Protein/Creatinine (U) [Ratio] 0.06 [facility] Reminderson 05-30-2024 Reminders Reminders From: Melissa Nash LPN To: N - Clinical; Sent: 05/30/2024 15:23:45 EDT Show up: 04/28/2034 07:00:00 EDT Subject: colonoscopy recall Due Date/Time: 05/29/2034 07:00:00 EDT Reminder/Recall Patient due for screening colonoscopy 05/29/2034. Normal [facility] Ambulatory Visit Summaryon 0 05-07-2024 [...] PRIETO, Vianey Crawford Where: [facility] [address] Medications What How Much When Instructions [...] for choosing us for your care. Normal [facility] 36on 04-11-2024 36 Patient needs scheduled for colonoscopy and would like to know if he can hold Eliquis prior. Please advise. Thanks! Normal [facility] [place] 04-05-2024 L Specimen: [id number] Received: 04/08/24 Status: ROYER Fernandes Num: [id number] Spec Type: Impression Subm Dr: Tracy Griffin MD Tissues: PATHPER Procedures: PATHREVIEW Age/ Patient Sex Location Account Attending Physician Vianey Lacey 64/M [facility] [id number] Tracy Griffin MD SPEC NUM: [id number] RECD: 04/08/24 STATUS: ROYER FERNANDES NUM: [id number] LADONNA: 04/05/[address]: Tracy Griffin MD ENTERED: 04/08/24 [facility] DR: Odell Dillard SPEC TYPE: Impression DEPT: SB [facility] ENTERED BY: [id number] RECV BY: [id number] ORDERED: PATHREVIEW ORDERED: PATHREVIEW Pathologist Review Abnormal [...] autoimmune disease, again requiring clinical correlations CPT: 33397 -------- -------- Specimen: [id number] Received: 04/08/24 Status: ROYER Fernandes Num: [id number] Spec Type: Impression Subm Dr: Tracy Griffin MD Tissues: PATHPER Procedures: PATHREVIEW -------- Patient: Vianey Lacey [id number] (Continued) -------- Signed (signature on file) Memo Morrison MD 04/09/24 1024 [facility] $ Large Joint Injection: R [...] with betadine and alcohol.). MANUALLY TRANSCRIBED RESULTS [facility] Physician Referralon 024 Physician Referral [phone] [id number] Normal [facility] Telephone Encounteron 2022 New Media Strategist Authentication Interface Message Text Patient has not been seen by this specialist in more than 1 year. Please contact patient to schedule office visit. Thank you Normal [facility] CNOVon 04-26-2023 CNOV Office Visit (SPMESH ) CORINNEVIANEY AGUILERA ([id number]) 1960 M Date Time Provider Department 04/26/23 [...] (more content not included)... Normal [facility] TESTOSTERONE, TOTALon 2022 Testosterone [Mass/Vol] 347 ng/dL Normal 264-916 [facility] Comment on above: Result Comment: Adul t male reference interval is based on a population of healthy nonobese males (BMI <30) between 19 and 39 years old. stephania Salinas.al. JCEM 2017,102;7104-6892. PMID: [id number]. Performed By: #### T ESTTOT #### [facility] [address] [place] [address] Dr. Reuben Morrison XR TSPINE 3 VIEWSon [...] ALFREDITO LOAIZA Date: 2022-11-18 16:11 Normal [facility] TESTOSTERONE, TOTALon 2022 Testosterone [Mass/Vol] 993 ng/dL Critically high 264-916 [facility] Comment on above: Result Comment: Adul t male reference interval is based on a population of healthy nonobese males (BMI <30) between 19 and 39 years old. Brad et.al. JCEM 2017,102;5741-8733. PMID: [id number]. Performed By: #### T ESTTOT #### [facility] [address] [place] [address] Dr. Reuben Morrison CBC AUTO DIFFon 06-15-2022 BASO # 0.0 103/ul Normal 0.0-0.1 [facility] Comment on above: Performed By: #### C BC #### [facility] [address] [place] [address] Dr. Reuben Morrison Basophils/100 WBC (Bld) 0.4 % Normal 0.2-2.0 [facility] Comment on above: Performed By: #### C BC #### [facility] [address] [place] [address] Dr. Reuben Morrison EO # 0.1 103/ul Normal 0.0-0.7 [facility] Comment on above: Performed By: #### C BC #### [facility] [address] [place] [address] Dr. Reuben Morrison Eosinophils/100 WBC (Bld) 1.3 % Normal 0.9-7.0 [facility] Comment on above: Performed By: #### C BC #### [facility] [address] [place] [address] Dr. Reuben Morrison Erythrocyte distribution width (RBC) [Ratio] 14.3 % Normal 11.0-15.0 [facility] Comment on above: Performed By: #### C BC #### [facility] [address] [place] [address] Dr. Reuben Morrison Hematocrit (Bld) [Volume fraction] 48.9 % Normal 42.0-54.0 [facility] Comment on above: Performed By: #### C BC #### [facility] [address] [place] [address] Dr. Reuben Morrison Hemoglobin (Bld) [Mass/Vol] 16.6 g/dL Normal 14.0-18.0 [facility] Comment on above: Performed By: #### C BC #### [facility] [address] [place] [address] Dr. Reuben Morrison IG # 0.01 10e3/ul Normal 0.00-0.03 [facility] Comment on above: Performed By: #### C BC #### [facility] [address] [place] [address] Dr. Reuben Morrison IG % 0.2 % Normal 0.0-0.5 [facility] Comment on above: Performed By: #### C BC #### [facility] [address] [place] [address] Dr. Reuben Morrison LYMPH # 1.1 103/ul Critically low 1.2-3.8 [facility] Comment on above: Performed By: #### C BC #### [facility] [address] [place] [address] Dr. Reuben Morrison Lymphocytes/100 WBC (Bld) 24.3 % Normal 20.5-60.0 [facility] Comment on above: Performed By: #### C BC #### [facility] [address] [place] [address] Dr. Reuben Morrison MANUAL DIFF REQ NO Normal [facility] Comment on above: Performed By: #### C BC #### [facility] [address] [place] [address] Dr. Reuben Morrison MCH (RBC) [Entitic mass] 29.5 pg Normal 25.9-34.0 [facility] Comment on above: Performed By: #### C BC #### [facility] [address] [address] [address] Reuben Morrison MCHC (RBC) [Mass/Vol] 33.9 g/dL Normal 29.9-35.2 [facility] Comment on above: Performed By: #### C BC #### [facility] [address] [address] [address] Reuben Morrison MCV (RBC) [Entitic vol] 86.9 fL Normal 80.0-94.0 [facility] Comment on above: Performed By: #### C BC #### [facility] [address] [place] [address] Dr. Reuben Morrison MONO # 0.5 103/ul Normal 0.3-0.8 [facility] Comment on above: Performed By: #### C BC #### [facility] [address] [place] [address] Dr. Reuben Morrison Monocytes/100 WBC (Bld) 9.6 % Normal 1.7-12.0 [facility] Comment on above: Performed By: #### C BC #### [facility] [address] [place] [address] Dr. Reuben Morrison NEUT # 3.0 103/ul Normal 1.4-6.5 [facility] Comment on above: Performed By: #### C BC #### [facility] [address] [place] [address] Dr. Reuben Morrison Neutrophils/100 WBC (Bld) 64.2 % Normal 43.0-75.0 [facility] Comment on above: Performed By: #### C BC #### [facility] [address] [place] [address] Dr. Reuben Morrison Platelet mean volume (Bld) [Entitic vol] 9.7 fL Normal 9.5-13.5 [facility] Comment on above: Performed By: #### C BC #### [facility] [address] [place] [address] Dr. Rueben Morrison PLT 130 103/ul Critically low 150-450 [facility] Comment on above: Result Comment: plts . appear slightly decreased Performed By: #### C BC #### [facility] [address] [address] [address] Reuben Morrison RBC 5.63 106/ul Normal 4.70-6.10 [facility] Comment on above: Performed By: #### C BC #### [facility] [address] [address] [address] Reuben Morrison WBC 4.7 103/ul Normal 4.0-11.0 [facility] Comment on above: Performed By: #### C BC #### [facility] [address] [address] [address] Reuben Morrison TESTOSTERONE, TOTALon 2021 Testosterone [Mass/Vol] 404 ng/dL Normal 264-916 [facility] Comment on above: Result Comment: Adul t male reference interval is based on a population of healthy nonobese males (BMI <30) between 19 and 39 years old. stephania Salinas.al. JCEM 2017,102;3004-3075. PMID: [id number]. Performed By: #### T ESTTOT #### [facility] [address] [place] [address] Dr. Reuben Morrison CBC AUTO DIFFon 04-27-2022 BASO # 0.0 103/ul Normal 0.0-0.1 [facility] Comment on above: Performed By: #### T ESTTOT #### [facility] [address] [place] [address] Dr. Reuben Morrison Basophils/100 WBC (Bld) 1.0 % Normal 0.2-2.0 [facility] Comment on above: Performed By: #### T ESTTOT #### [facility] [address] [place] [address] Dr. Reuben Morrison EO # 0.1 103/ul Normal 0.0-0.7 [facility] Comment on above: Performed By: #### T ESTTOT #### [facility] [address] [place] [address] Dr. Reuben Morrison Eosinophils/100 WBC (Bld) 1.8 % Normal 0.9-7.0 [facility] Comment on above: Performed By: #### T ESTTOT #### [facility] [address] [place] [address] Dr. Reuben Morrison Erythrocyte distribution width (RBC) [Ratio] 14.0 % Normal 11.0-15.0 [facility] Comment on above: Performed By: #### T ESTTOT #### [facility] [address] [place] [address] Dr. Reuben Morrison Hematocrit (Bld) [Volume fraction] 47.3 % Normal 42.0-54.0 [facility] Comment on above: Performed By: #### T ESTTOT #### [facility] [address] [place] [address] Dr. Reuben Morrison Hemoglobin (Bld) [Mass/Vol] 16.2 g/dL Normal 14.0-18.0 [facility] Comment on above: Performed By: #### T ESTTOT #### [facility] [address] [place] [address] Dr. Reuben Morrison IG # 0.01 10e3/ul Normal 0.00-0.03 [facility] Comment on above: Performed By: #### T ESTTOT #### [facility] [address] [place] [address] Dr. Reuben Morrison IG % 0.3 % Normal 0.0-0.5 [facility] Comment on above: Performed By: #### T ESTTOT #### [facility] [address] [place] [address] Dr. Reuben Morrison LYMPH # 1.1 103/ul Critically low 1.2-3.8 [facility] Comment on above: Performed By: #### T ESTTOT #### [facility] [address] [place] [address] Dr. Reuben Morrison Lymphocytes/100 WBC (Bld) 26.6 % Normal 20.5-60.0 [facility] Comment on above: Performed By: #### T ESTTOT #### [facility] [address] [place] [address] Dr. Reuben Morrison MANUAL DIFF REQ NO Normal [facility] Comment on above: Performed By: #### T ESTTOT #### [facility] [address] [place] [address] Dr. Reuben Morrison MCH (RBC) [Entitic mass] 29.5 pg Normal 25.9-34.0 [facility] Comment on above: Performed By: #### T ESTTOT #### [facility] [address] [place] [address] Dr. Reuben Morrison MCHC (RBC) [Mass/Vol] 34.2 g/dL Normal 29.9-35.2 [facility] Comment on above: Performed By: #### T ESTTOT #### [facility] [address] [place] [address] Dr. Reuben Morrison MCV (RBC) [Entitic vol] 86.2 fL Normal 80.0-94.0 [facility] Comment on above: Performed By: #### T ESTTOT #### [facility] [address] [place] [address] Dr. Reuben Morrison MONO # 0.4 103/ul Normal 0.3-0.8 [facility] Comment on above: Performed By: #### T ESTTOT #### [facility] [address] [place] [address] Dr. Reuben Morrison Monocytes/100 WBC (Bld) 9.0 % Normal 1.7-12.0 [facility] Comment on above: Performed By: #### T ESTTOT #### [facility] [address] [place] [address] Dr. Reuben Morrison NEUT # 2.5 103/ul Normal 1.4-6.5 [facility] Comment on above: Performed By: #### T ESTTOT #### [facility] [address] [place] [address] Dr. Reuben Morrison Neutrophils/100 WBC (Bld) 61.3 % Normal 43.0-75.0 [facility] Comment on above: Performed By: #### T ESTTOT #### [facility] [address] [address] [address] Reuben Morrison Platelet mean volume (Bld) [Entitic vol] 9.6 fL Normal 9.5-13.5 [facility] Comment on above: Performed By: #### T ESTTOT #### [facility] [address] [address] [address] Reuben Morrison PLT 128 103/ul Critically low 150-450 [facility] Comment on above: Performed By: #### T ESTTOT #### [facility] [address] [address] [address] Reuben Morrison RBC 5.49 106/ul Normal 4.70-6.10 [facility] Comment on above: Performed By: #### T ESTTOT #### [facility] [address] [place] [address] Dr. Reuben Morrison WBC 4.0 103/ul Normal 4.0-11.0 [facility] Comment on above: Performed By: #### T ESTTOT #### [facility] [address] [address] [address] Reuben Morrison INSULINon 03-08-2022 Insulin 4.3 uIU/mL Normal 2.6-24.9 [facility] Comment on above: Performed By: #### T ESTTOT #### [facility] [address] [place] [address] Dr. Reuben Morrison TESTOSTERONE, TOTALon 2021 Testosterone [Mass/Vol] ng/dL Critically high 264-916 [facility] Comment on above: Result Comment: Adul t male reference interval is based on a population of healthy nonobese males (BMI <30) between 19 and 39 years old. Brad, et.al. JCEM 2017,102;5427-7781. PMID: [id number]. Performed By: #### T ESTTOT #### [facility] [address] [place] [address] Dr. Reuben Morrison CBC AUTO DIFFon 03-07-2022 BASO # 0.1 103/ul Normal 0.0-0.1 [facility] Comment on above: Performed By: #### C BC #### [facility] [address] [place] [address] Dr. Reuben Morrison Basophils/100 WBC (Bld) 1.4 % Normal 0.2-2.0 [facility] Comment on above: Performed By: #### C BC #### [facility] [address] [place] [address] Dr. Reuben Morrison EO # 0.1 103/ul Normal 0.0-0.7 [facility] Comment on above: Performed By: #### C BC #### [facility] [address] [place] [address] Dr. Reuben Morrison Eosinophils/100 WBC (Bld) 1.4 % Normal 0.9-7.0 [facility] Comment on above: Performed By: #### C BC #### [facility] [address] [place] [address] Dr. Reuben Morrison Erythrocyte distribution width (RBC) [Ratio] 14.7 % Normal 11.0-15.0 [facility] Comment on above: Performed By: #### C BC #### [facility] [address] [place] [address] Dr. Reuben Morrison Hematocrit (Bld) [Volume fraction] 49.8 % Normal 42.0-54.0 [facility] Comment on above: Performed By: #### C BC #### [facility] [address] [place] [address] Dr. Reuben Morrison Hemoglobin (Bld) [Mass/Vol] 16.4 g/dL Normal 14.0-18.0 [facility] Comment on above: Performed By: #### C BC #### [facility] [address] [place] [address] Dr. Reuben Morrison IG # 0.01 10e3/ul Normal 0.00-0.03 [facility] Comment on above: Performed By: #### C BC #### [facility] [address] [place] [address] Dr. Reuben Morrison IG % 0.3 % Normal 0.0-0.5 [facility] Comment on above: Performed By: #### C BC #### [facility] [address] [address] [address] Reuben Morrison LYMPH # 0.9 103/ul Critically low 1.2-3.8 [facility] Comment on above: Performed By: #### C BC #### [facility] [address] [address] [address] Reuben Morrison Lymphocytes/100 WBC (Bld) 24.7 % Normal 20.5-60.0 [facility] Comment on above: Performed By: #### C BC #### [facility] [address] [address] [address] Reuben Morrison MANUAL DIFF REQ NO Normal [facility] Comment on above: Performed By: #### C BC #### [facility] [address] [place] [address] Dr. Reuben Morrison MCH (RBC) [Entitic mass] 28.9 pg Normal 25.9-34.0 [facility] Comment on above: Performed By: #### C BC #### [facility] [address] [place] [address] Dr. Reuben Morrison MCHC (RBC) [Mass/Vol] 32.9 g/dL Normal 29.9-35.2 [facility] Comment on above: Performed By: #### C BC #### [facility] [address] [place] [address] Dr. Reuben Morrison MCV (RBC) [Entitic vol] 87.7 fL Normal 80.0-94.0 [facility] Comment on above: Performed By: #### C BC #### [facility] [address] [place] [address] Dr. Reuben Morrison MONO # 0.4 103/ul Normal 0.3-0.8 [facility] Comment on above: Performed By: #### C BC #### [facility] [address] [place] [address] Dr. Reuben Morrison Monocytes/100 WBC (Bld) 9.5 % Normal 1.7-12.0 [facility] Comment on above: Performed By: #### C BC #### [facility] [address] [address] [address] Reuben Morrison NEUT # 2.3 103/ul Normal 1.4-6.5 [facility] Comment on above: Performed By: #### C BC #### [facility] [address] [place] [address] Dr. Reuben Morrison Neutrophils/100 WBC (Bld) 62.7 % Normal 43.0-75.0 [facility] Comment on above: Performed By: #### C BC #### [facility] [address] [place] [address] Dr. Reuben Morrison Platelet mean volume (Bld) [Entitic vol] 9.8 fL Normal 9.5-13.5 [facility] Comment on above: Performed By: #### C BC #### [facility] [address] [place] [address] Dr. Reuben Morrison PLT 149 103/ul Critically low 150-450 [facility] Comment on above: Performed By: #### C BC #### [facility] [address] [place] [address] Dr. Reuben Morrison RBC 5.68 106/ul Normal 4.70-6.10 [facility] Comment on above: Performed By: #### C BC #### [facility] [address] [place] [address] Dr. Reuben Morrison WBC 3.7 103/ul Critically low 4.0-11.0 [facility] Comment on above: Performed By: #### C BC #### [facility] [address] [place] [address] Dr. Reuben Morrison FREE THYROXINE INDEX T7on FTI 2.50 Normal 1.30-4.50 [facility] Comment on above: Performed By: #### C MP, T7, TSH, LIPID #### [facility] [address] [place] [address] Dr. Reuben Morrison T3U 39.0 % Normal 33.0-40.0 [facility] Comment on above: Performed By: #### C MP, T7, TSH, LIPID #### [facility] [address] [place] [address] Dr. Reuben Morrison T4 [Mass/Vol] 6.40 ug/dL Normal 4.50-12.10 [facility] Comment on above: Performed By: #### C MP, T7, TSH, LIPID #### [facility] [address] [address] [address] Reuben Morrison GLYCOHEMOGLOBIN A1Con 2021 ADA RECOMMENDATION SEE BELOW Normal [facility] Comment on above: Result Comment: ADA RECOMMENDED LIMIT 4.0 - 6.0 ADA THERAPEUTIC TARGET < 7.0 ACTION SUGGESTED > 7.0 Performed By: #### T ESTTOT #### [facility] [address] [address] [address] Reuben Morrison Glucose [Mass/Vol] 105 mg/dL Normal [facility] Comment on above: Performed By: #### T ESTTOT #### [facility] [address] [address] [address] Reuben Morrison HbA1c (Bld) [Mass fraction] 5.3 % Normal 4.5-6.2 [facility] Comment on above: Performed By: #### T ESTTOT #### [facility] [address] [address] [address] Reuben Morrison IRONon 03-07-2022 Iron [Mass/Vol] 100.0 ug/dL Normal 65.0-175.0 [facility] Comment on above: Performed By: #### I BLAIR, PSASC, VITB12, VITAD #### [facility] [address] [address] [address] Reuben Morrison LIPID PROFILEon 03-07-2022 CHOL-HDL RATIO NORM SEE BELOW Normal [facility] Comment on above: Result Comment: 3.3 - 4.4 LOW RISK 4.4 - 7.1 AVERAGE RISK 7.1 - 11.0 MODERATE RISK >11.0 HIGH RISK Performed By: #### C MP, T7, TSH, LIPID #### [facility] [address] [place] [address] Dr. Reuben Morrison Cholesterol [Mass/Vol] 157 mg/dL Normal <=200 [facility] Comment on above: Performed By: #### C MP, T7, TSH, LIPID #### [facility] [address] [address] [address] Reuben Morrison Cholesterol in HDL [Mass/Vol] 48 mg/dL Normal 40-60 [facility] Comment on above: Performed By: #### C MP, T7, TSH, LIPID #### [facility] [address] [address] [address] Reuben Morrison Cholesterol in LDL [Mass/Vol] 96.0 mg/dL Normal [facility] Comment on above: Performed By: #### C MP, T7, TSH, LIPID #### [facility] [address] [address] [address] Reuben Morrison Cholesterol.total/Ch olesterol in HDL [Mass ratio] 3.3 {ratio} Normal [facility] Comment on above: Performed By: #### C MP, T7, TSH, LIPID #### [facility] [address] [address] [address] Reuben Morrison HDL NORMAL > or = 60 mg/dl - LO W CARDIOVASCULAR RISK <40 mg/dl - HIGH CARDIOVASCULAR RISK Normal [facility] Comment on above: Performed By: #### C MP, T7, TSH, LIPID #### [facility] [address] [address] [address] Reuben Morrison LDL CALC NORMAL SEE BELOW Normal [facility] Comment on above: Result Comment: <100 mg/dl OPTIMAL 100 - 129 mg/dl NEAR OR ABOVE OPTIMAL 130 - 159 mg/dl BORDERLINE HIGH 160 - 189 mg/dl HIGH >190 mg/dl VERY HIGH Performed By: #### C MP, T7, TSH, LIPID #### [facility] [address] [address] [address] Reuben Morrison Triglyceride [Mass/Vol] 65 mg/dL Normal <=150 [facility] Comment on above: Performed By: #### C MP, T7, TSH, LIPID #### [facility] [address] [address] [address] Reuben Morrison VLDL CALC 13.0 mg/dL Normal [facility] Comment on above: Performed By: #### C MP, T7, TSH, LIPID #### [facility] [address] [place] [address] Dr. Reuben Morrison PROF 14(COMP METB)on 022 Albumin [Mass/Vol] 3.7 g/dL Normal 3.4-5.0 [facility] Comment on above: Performed By: #### C MP, T7, TSH, LIPID #### [facility] [address] [place] [address] Dr. Reuben Morrison Albumin/Globulin [Mass ratio] 1.3 {ratio} Normal [facility] Comment on above: Performed By: #### C MP, T7, TSH, LIPID #### [facility] [address] [place] [address] Dr. Reuben Morrison ALP [Catalytic activity/Vol] 53 U/L Normal 46-116 [facility] Comment on above: Performed By: #### C MP, T7, TSH, LIPID #### [facility] [address] [place] [address] Dr. Reuben Morrison ALT [Catalytic activity/Vol] 37 U/L Normal 16-63 [facility] Comment on above: Performed By: #### C MP, T7, TSH, LIPID #### [facility] [address] [place] [address] Dr. Reuben Morrison Anion gap [Moles/Vol] 11.0 mmol/L Normal [facility] Comment on above: Performed By: #### C MP, T7, TSH, LIPID #### [facility] [address] [place] [address] Dr. Reuben Morrison AST [Catalytic activity/Vol] 28 U/L Normal 15-37 [facility] Comment on above: Performed By: #### C MP, T7, TSH, LIPID #### [facility] [address] [place] [address] Dr. Reuben Morrison Bilirubin [Mass/Vol] 0.9 mg/dL Normal 0.2-1.0 [facility] Comment on above: Performed By: #### C MP, T7, TSH, LIPID #### [facility] [address] [place] [address] Dr. Reuben Morrison Calcium [Mass/Vol] 8.9 mg/dL Normal 8.5-10.1 [facility] Comment on above: Performed By: #### C MP, T7, TSH, LIPID #### [facility] [address] [address] [address] Reuben Morrison Chloride [Moles/Vol] 106 mmol/L Normal 98-107 [facility] Comment on above: Performed By: #### C MP, T7, TSH, LIPID #### [facility] [address] [address] [address] Reuben Morrison CO2 [Moles/Vol] 28.2 mmol/L Normal 21.0-32.0 [facility] Comment on above: Performed By: #### C MP, T7, TSH, LIPID #### [facility] [address] [address] [address] Reuben Morrison Creatinine [Mass/Vol] 1.55 mg/dL Critically high 0.70-1.30 [facility] Comment on above: Performed By: #### C MP, T7, TSH, LIPID #### [facility] [address] [address] [address] Reuben Morrison EGFR-AF ENGLISH 55 mL/min/1.73m2 Critically low >=60 [facility] Comment on above: Performed By: #### C MP, T7, TSH, LIPID #### [facility] [address] [place] [address] Dr. Reuben Morrison EGFR-NON AF ENGLISH 46 mL/min/1.73m2 Critically low >=60 [facility] Comment on above: Performed By: #### C MP, T7, TSH, LIPID #### [facility] [address] [address] [address] Reuben Morrison Globulin (S) [Mass/Vol] 2.9 g/dL Normal [facility] Comment on above: Performed By: #### C MP, T7, TSH, LIPID #### [facility] [address] [address] [address] Reuben Morrison Glucose [Mass/Vol] 88 mg/dL Normal 74-106 [facility] Comment on above: Performed By: #### C MP, T7, TSH, LIPID #### [facility] [address] [place] [address] Dr. Reuben Morrison Potassium [Moles/Vol] 4.2 mmol/L Normal 3.5-5.1 [facility] Comment on above: Performed By: #### C MP, T7, TSH, LIPID #### [facility] [address] [place] [address] Dr. Reuben Morrison Protein [Mass/Vol] 6.6 g/dL Normal 6.4-8.2 [facility] Comment on above: Performed By: #### C MP, T7, TSH, LIPID #### [facility] [address] [place] [address] Dr. Reuben Morrison Sodium [Moles/Vol] 141 mmol/L Normal 136-145 [facility] Comment on above: Performed By: #### C MP, T7, TSH, LIPID #### [facility] [address] [place] [address] Dr. Reuben Morrison Urea nitrogen [Mass/Vol] 13.0 mg/dL Normal 7.0-18.0 [facility] Comment on above: Performed By: #### C MP, T7, TSH, LIPID #### [facility] [address] [place] [address] Dr. Reuben Morrison Urea nitrogen/Creatinine [Mass ratio] 8.4 mg/mg Normal [facility] Comment on above: Performed By: #### C MP, T7, TSH, LIPID #### [facility] [address] [place] [address] Dr. Reuben Morrison TSHon 03-07-2022 TSH 0.091 uIU/mL Critically low 0.358-3.740 [facility] Comment on above: Performed By: #### C MP, T7, TSH, LIPID #### [facility] [address] [place] [address] Dr. Reuben Morrison TSH RANGE SEE BELOW Normal [facility] Comment on above: Result Comment: <0.3 4 UIU/ml HYPERTHYROID 0.34-5.60 UIU/ml EUTHYROID >5.60 UIU/ml HYPOTHYROID Performed By: #### C MP, T7, TSH, LIPID #### [facility] [address] [address] [address] Reuben Morrison VITAMIN B12on 03-07-2022 Cobalamin (Vitamin B12) [Mass/Vol] 3126.0 pg/mL Critically high 193.0-986.0 [facility] Comment on above: Performed By: #### T ESTTOT #### [facility] [address] [address] [address] Reuben Morrison VITAMIN D 25 OHon 03-07-2022 VIT D 25-OH 90.4 ng/mL Normal [facility] Comment on above: Performed By: #### T ESTTOT #### [facility] [address] [address] [address] Reuben Morrison VIT D RANGES SEE BELOW Normal [facility] Comment on above: Result Comment: <20 ng/mL Vit D deficient 20 - <30 ng/mL Vit D insufficient 30 - 100 ng/mL Vit D sufficient >100 ng/mL Potential Toxicity Performed By: #### T ESTTOT #### [facility] [address] [address] [address] Reuben Morrison XR SHOULDER RICHARD 2V [...] 170.2 cm Osmin Anthony MD Work Phone: [facility] 02-18-2025 10:20-0400 Body mass index (BMI) [Ratio] 29.19 kg/m2 Osmin Anthony MD Work Phone: [facility] 02-18-2025 10:20-0400 Body weight 84.54 kg Osmin Anthony MD Work Phone: [facility] 10-21-2024 10:46-0500 Body temperature 97.52 [degF] Vianey MENDOZA [facility] 10-21-2024 10:46-0500 Diastolic blood pressure 84 mm[Hg] Vianey MENDOZA [facility] 10-21-2024 10:46-0500 Systolic blood pressure 128 mm[Hg] Vianey MENDOZA [facility] 10-08-2024 14:40-0500 Body height 170.2 cm Osmin Anthony MD Work Phone: [facility] 10-08-2024 14:40-0500 Body mass index (BMI) [Ratio] 29.13 kg/m2 Osmin Anthony MD Work Phone: [facility] 10-08-2024 14:40-0500 Body weight 84.37 kg Osmin Anthony MD Work Phone: [facility] 08-13-2024 13:46-0500 Blood Pressure Location Shawanda MEJIA [facility] 08-13-2024 13:46-0500 Diastolic blood pressure 82 mm[Hg] Shawanda MEJIA [facility] 08-13-2024 13:46-0500 Heart rate 72 /min Shawanda MEJIA [facility] 08-13-2024 13:46-0500 Respiratory rate 16 /min Shawanda MEJIA [facility] 08-13-2024 13:46-0500 Systolic blood pressure 122 mm[Hg] Shawanda MEJIA [facility] 07-17-2024 14:59-0400 Body height 168.9 cm Sage Russel DO Work Phone: [facility] 07-17-2024 14:59-0400 Body mass index (BMI) [Ratio] 30.02 kg/m2 Sage Russel DO Work Phone: [facility] 07-17-2024 14:59-0400 Body weight 85.64 kg Sage Russel DO Work Phone: [facility] 07-17-2024 14:59-0400 Diastolic blood pressure 90 mm[Hg] Sage Russel DO Work Phone: [facility] 07-17-2024 14:59-0400 Heart rate 68 /min Sage Russel DO Work Phone: [facility] 07-17-2024 14:59-0400 SaO2% (BldA) [Mass fraction] 98 % Sage Russel DO Work Phone: [facility] 07-17-2024 14:59-0400 Systolic blood pressure 134 mm[Hg] Sage Russel DO Work Phone: [facility] 06-12-2024 11:04-0400 Body height 168.9 cm Román Hoang MD Work Phone: [facility] 06-12-2024 11:04-0400 Body mass index (BMI) [Ratio] 29.89 kg/m2 Román Hoang MD Work Phone: [facility] 06-12-2024 11:04-0400 Body weight 85.28 kg Román Hoang MD Work Phone: [facility] 06-12-2024 11:04-0400 Diastolic blood pressure 78 mm[Hg] Román Hoang MD Work Phone: [facility] 06-12-2024 11:04-0400 Heart rate 68 /min Román Hoang MD Work Phone: [facility] 06-12-2024 11:04-0400 Respiratory rate 16 /min Román Hoang MD Work Phone: [facility] 06-12-2024 11:04-0400 Systolic blood pressure 130 mm[Hg] Román Hoang MD Work Phone: [facility] 06-11-2024 11:20-0400 Body height 170.2 cm Osmin Anthony MD Work Phone: [facility] 06-11-2024 11:20-0400 Body mass index (BMI) [Ratio] 28.7 kg/m2 Osmin Anthony MD Work Phone: [facility] 06-11-2024 11:20-0400 Body weight 83.12 kg Osmin Anthony MD Work Phone: [facility] 06-06-2024 13:55-0400 Body height 168.91 cm MD Ilda Hendrickson Work Phone: [facility] 06-06-2024 13:55-0400 Body mass index (BMI) [Ratio] 29.4 kg/m2 MD Ilda Hendrickson Work Phone: [facility] 06-06-2024 13:55-0400 Body temperature 98.8 [degF] MD Ilda Hendrickson Work Phone: [facility] 06-06-2024 13:55-0400 Body weight 83.97 kg MD Ilda Hendrickson Work Phone: [facility] 06-06-2024 13:55-0400 Diastolic blood pressure 88 mm[Hg] MD Ilda Hendrickson Work Phone: [facility] 06-06-2024 13:55-0400 Heart rate 61 /min MD Ilda Hendrickson Work Phone: [facility] 06-06-2024 13:55-0400 Respiratory rate 16 /min MD lIda Hendrickson Work Phone: [facility] 06-06-2024 13:55-0400 SaO2% (BldA) [Mass fraction] 98 % MD Ilda Hendrickson Work Phone: [facility] 06-06-2024 13:55-0400 Systolic blood pressure 139 mm[Hg] MD Ilda Hendrickson Work Phone: [facility] 05-07-2024 15:01-0400 Blood Pressure Location Shawanda MEJIA [facility] 05-07-2024 15:01-0400 Diastolic blood pressure 84 mm[Hg] Shawanda MEJIA [facility] 05-07-2024 15:01-0400 Heart rate 68 /min Shawanda ROBERTO [facility] 05-07-2024 15:01-0400 Respiratory rate 16 /min Shawanda ROBERTO [facility] 05-07-2024 15:01-0400 Systolic blood pressure 118 mm[Hg] Shawanda MEJIA [facility] 11-02-2023 10:48-0500 Body height 170.2 cm Osmin Anthony MD Work Phone: [facility] 11-02-2023 10:48-0500 Body mass index (BMI) [Ratio] 29.29 kg/m2 Osmin Anthony MD Work Phone: [facility] 11-02-2023 10:48-0500 Body weight 84.82 kg Osmin Anthony MD Work Phone: [facility] 10-16-2023 13:03-0500 Blood Pressure Location Vianey MENDOZA [facility] 10-16-2023 13:03-0500 Diastolic blood pressure 82 mm[Hg] Vianey MENDOZA [facility] 10-16-2023 13:03-0500 Heart rate 75 /min Vianey MENDOZA [facility] 10-16-2023 13:03-0500 Respiratory rate 16 /min Vianey MENDOZA [facility] 10-16-2023 13:03-0500 Systolic blood pressure 131 mm[Hg] Vianey MENDOZA [facility] 07-27-2023 10:00-0400 Body height 168.91 cm Sandoval Antonia Other [facility] Other 07-27-2023 10:00-0400 Body mass index (BMI) [Ratio] 28.55 kg/m2 Sandoval Antonia Other [facility] Other 07-27-2023 10:00-0400 Body temperature 96.2 [degF] Sandoval Antonia Other [facility] Other 07-27-2023 10:00-0400 Body weight 81.47 kg Sandoval Antonia Other [facility] Other 07-27-2023 10:00-0400 Diastolic blood pressure 87 mm[Hg] Sandoval Antonia Other [facility] Other 07-27-2023 10:00-0400 Respiratory rate 16 /min Sandoval Antonia Other [facility] Other 07-27-2023 10:00-0400 SaO2% (BldA) [Mass fraction] 94 % Sandoval Antonia Other [facility] Other 07-27-2023 10:00-0400 Systolic blood pressure 130 mm[Hg] Sandoval Antonia Other [facility] Other 06-12-2023 12:25-0400 Blood Pressure Location Vianey MENDOZA [facility] 06-12-2023 12:25-0400 Diastolic blood pressure 74 mm[Hg] Vianey MENDOZA [facility] 06-12-2023 12:25-0400 Heart rate 68 /min Vianey MENDOZA [facility] 06-12-2023 12:25-0400 Respiratory rate 16 /min Vianey MENDOZA [facility] 06-12-2023 12:25-0400 Systolic blood pressure 128 mm[Hg] Vianey MENDOZA [facility] 04-26-2023 11:15-0400 Body height 168.4 cm Shawanda Hernandez PA-C Work Phone: [facility] 04-26-2023 11:15-0400 Body temperature 98.01 [degF] Shawanda Hernandez PA-C Work Phone: [facility] 04-26-2023 11:15-0400 Body weight 86.95 kg Shawanda Hernandez PA-C Work Phone: [facility] 04-26-2023 11:15-0400 Diastolic blood pressure 94 mm[Hg] Shawanda Hernandez PA-C Work Phone: [facility] 04-26-2023 11:15-0400 Heart rate 74 /min Shawanda Hernandez PA-C Work Phone: [facility] 04-26-2023 11:15-0400 SaO2% (BldA) [Mass fraction] 97 % Shawanda Hernandez PA-C Work Phone: [facility] 04-26-2023 11:15-0400 Systolic blood pressure 147 mm[Hg] Shawanda Hernandez PA-C Work Phone: [facility] 12-02-2022 08:12-0500 Blood Pressure Location Vianey MENDOZA [facility] 12-02-2022 08:12-0500 Diastolic blood pressure 84 mm[Hg] Vianey MENDOZA [facility] 12-02-2022 08:12-0500 Heart rate 70 /min Vianey MENDOZA [facility] 12-02-2022 08:12-0500 Respiratory rate 16 /min Vianey MENDOZA [facility] 12-02-2022 08:12-0500 Systolic blood pressure 137 mm[Hg] Vianey MENDOZA [facility] 07-20-2022 14:11-0400 Body mass index (BMI) [Ratio] 28.98 kg/m2 Jovita Virk MD Work Phone: [facility] 07-20-2022 14:11-0400 Body temperature 98.01 [degF] Jovita Virk MD Work Phone: [facility] 07-20-2022 14:11-0400 Body weight 83.92 kg Jovita Virk MD Work Phone: [facility] 10-26-2022 14:11-0400 Diastolic blood pressure 86 mm[Hg] Jovita Virk MD Work Phone: [facility] 07-20-2022 14:11-0400 Heart rate 98 /min [facility]ovita Virk MD [facility] 07-20-2022 14:11-0400 Respiratory rate 14 /min Jovita Virk MD [facility] Phone: [facility] 07-20-2022 14:11-0400 SaO2% (BldA) [Mass fraction] 100 % Jovita Virk MD Work Phone: [facility] 07-20-2022 14:11-0400 Systolic blood pressure 138 mm[Hg] Jovita Virk MD Work Phone: [facility] Encounters Encounter Date Encounter Type Care Provider Facility Start: 10-27-2025 ambulatory Vianey MENDOZA [facility] ty:[facility] Start: 02-18-2025 End: 02-18-2025 ambulatory [facility] Start: 02-18-2025 End: 02-18-2025 Office outpatient visit 25 minutes Osmin Anthony MD Work Phone: [facility] Comment on above: Primary osteoarthrit is of right knee (Primary Dx) Start: 01-21-2025 End: 01-21-2025 ambulatory [facility] Start: 10-21-2024 End: 10-21-2024 ambulatory Vianey MENDOZA Facility:[facility] Start: 10-21-2024 End: 10-21-2024 Patient encounter procedure Vianey MENDOZA [facility] Start: 10-08-2024 End: 10-08-2024 ambulatory [facility] Start: 10-08-2024 End: 10-08-2024 Patient encounter procedure Osmin Anthony MD Work Phone: [facility] Comment on above: Primary osteoarthrit is of right knee (Primary Dx) Start: 08-13-2024 End: 08-13-2024 ambulatory [facility] Start: 08-13-2024 End: 08-13-2024 Patient encounter procedure Shawanda Crawford ROBERTO [facility] Start: 07-17-2024 End: 07-17-2024 ambulatory SAGE CAM Not Available Start: 07-17-2024 End: 07-17-2024 Office outpatient visit 25 minutes Sage Cam DO Work Phone: [facility] [address] [facility] Comment on above: NANCY (obstructive sle ep apnea) (Primary Dx); Hypersomnia; Snoring; Atrial fibrillation, unspecified type (CMS/HCC); Sleep deprivation Start: 07-17-2024 End: 07-17-2024 Bamboo flowsheet Sage Cam DO Work Phone: [facility] Start: 07-17-2024 End: 07-17-2024 Bamboo flowsheet Sage Cam DO Work Phone: [facility] [address] [facility] Start: 07-16-2024 End: 07-16-2024 ambulatory [facility] Start: 06-12-2024 End: 06-12-2024 Bamboo flowsheet Román Hoang MD Work Phone: [facility] Start: 06-12-2024 End: 06-12-2024 Bamboo flowsheet Román Hoang MD Work Phone: [facility] Start: 06-12-2024 End: 06-12-2024 ambulatory ROMÁN HOANG Not Available Start: 06-12-2024 End: 06-12-2024 Office outpatient visit 25 minutes Román Hoang MD Work Phone: [facility] Comment on above: Sarah's disease (CMS/HCC) (Primary Dx) Start: 06-11-2024 End: 06-11-2024 ambulatory OSMIN ANTHONY [facility] Start: 06-11-2024 End: 06-11-2024 Patient encounter procedure Osmin Anthony MD Work Phone: [facility] Comment on above: Primary osteoarthrit is of right knee (Primary Dx) Start: 06-06-2024 End: 06-06-2024 ambulatory MD Ilda Hendrickson Work Phone: [facility] Work Phone: Start: 06-06-2024 End: 06-06-2024 Patient encounter procedure MD Ilda Hendrickson Work Phone[facility] Work Phone: Start: 06-03-2024 Non-patient / Non-visit MD Ravi Hendrickson Work Phone[facility] Work Phone: Start: 05-29-2024 End: 05-29-2024 ambulatory Shawanda R NILL Facility:CD:[id number] Start: 05-07-2024 End: 05-07-2024 ambulatory Shawanda R NILL Facility:[facility] Start: 05-07-2024 End: 05-07-2024 Patient encounter procedure Shawanda R NILL [facility] Start: 05-06-2024 ambulatory Shawanda NILL Facility:[facility] Start: 04-05-2024 End: 04-05-2024 ambulatory MD Ilda Hendrickson Work Phone: [facility] Work Phone: Start: 04-05-2024 End: 04-05-2024 Departed Referred MD Ilda Hendrickson Work Phone: [facility] Start: 12-03-2023 Letter [facility] Work Phone: Start: 11-27-2023 ambulatory Vianey Lewisi ty:[facility] Start: 11-02-2023 End: 11-02-2023 Patient encounter procedure Osmin Anthony MD Work Phone: [facility] Comment on above: Primary osteoarthrit is of right knee (Primary Dx) Start: 10-16-2023 End: 10-16-2023 Patient encounter procedure Vianey MENDOZA [facility] Start: 07-27-2023 End: 07-27-2023 ambulatory Sandoval Antonia Other Jobaline Other Start: 07-27-2023 Office outpatient ne w 45 minutes Sandoval Antonia [facility] Start: 06-12-2023 End: 06-12-2023 Patient encounter procedure Vianey MENDOZA [facility] Start: 05-03-2023 End: 05-03-2023 Patient encounter procedure Taylor Joshua [facility] Start: 04-26-2023 End: 04-26-2023 ambulatory ILDA HENDRICKSON Facility:[facility] Start: 04-26-2023 End: 04-26-2023 Patient encounter procedure Shawanda Hernandez PA-C Work Phone: [facility] Comment on above: Height loss (Primary Dx) Start: 03-08-2023 End: 03-08-2023 Patient encounter procedure KYLE RODRIGUEZ [facility] Start: 01-20-2023 End: 01-21-[address] ILDA HENDRICKSON . Facility: Start: 12-02-2022 End: 12-02-2022 Patient encounter procedure Vianey MENDOZA [facility] Start: 11-18-2022 End: 11-19-[address] ILDA HENDRICKSON . Facility:[facility] Start: 11-08-2022 End: 11-09-2022 ambulatory TAYLOR M SANDITania . Facility:[facility] Start: 11-01-2022 End: 11-01-2022 Patient encounter procedure KYLE RODRIGUEZ [facility] Start: 10-05-2022 End: 10-05-2022 Patient encounter procedure KYLE RODRIGUEZ [facility] Start: 09-07-2022 End: 09-07-2022 Patient encounter procedure Taylor Joshua [facility] Start: 08-28-2022 Letter encounter Jovita Virk MD Work Phone: [facility] Start: 08-17-2022 End: 08-17-2022 Patient encounter procedure Taylor Joshua [facility] Start: 08-12-2022 Telephone encounter Aarti vences MA, [facility], ASSISTANT DIRECTOR Work Phone: [facility] Start: 07-21-2022 End: 07-22-[address] ILDA HENDRICKSON . 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); Cognitive changes; Body mass index (BMI) 28.0-28.9, adult Start: 07-11-2022 End: 07-11-2022 Patient encounter procedure Vianey MENDOZA [facility] Start: 06-15-2022 End: 06-16-[address] SAEED Flores Facility:[facility] Start: 06-13-2022 End: 06-13-2022 Patient encounter procedure Vianey MENDOZA [facility] Start: 04-27-2022 End: 04-28-[address] SAEED Flores Facility:[facility] Start: 04-07-2022 Refill Jovita Virk MD Work Phone: [facility] Comment on above: Refill Start: 03-21-[address] ILDA HENDRICKSON . Facili ty:[facility] Start: 03-17-[address] ILDA HENDRICKSON . Facili ty:[facility] Start: 03-09-2022 Encounter for genera l adult medical examination without abnormal findings DR ILDA HENDRICKSON . [facility] Start: 03-07-2022 End: 03-08-2022 Encounter for general adult medical examination without abnormal findings DR ILDA HENDRICKSON . Facility:[facility] Start: 03-07-2022 End: 03-08-[address] ILDA HENDRICKSON . Facility:[facility] Start: 03-01-2022 End: 03-01-2022 Patient encounter procedure Saeed Cantu Jr. [facility] Start: 02-01-2022 End: 02-01-2022 Patient encounter procedure Saeed Cantu Jr. [facility] Start: 01-04-2022 End: 01-04-2022 Patient encounter procedure Saeed Cantu Jr. [facility] Procedures Date Procedure Procedure Detail Performing [...] above: Performed By: #### T ESTTOT #### [facility] [address] [place] [address] Dr. Reuben Morrison Start: 03-07-[address] FABIÁN HENDRICKSON . Comment on above: Performed By: #### I BLAIR, PSASC, VITB12, VITAD #### [facility] [address] [place] [address] Dr. Reuben Morrison Start: 12-21-2016 Cystourethroscopy wi th dilation of urethral stricture Saeed Cantu Jr. Start: 08-25-2009 Colonoscopy Shawanda GREER Arthroplasty of knee Saeed Cantu Jr. Comment on above: Left side Arthroscopy of shoulder Jesus MEJIA Cardioversion Shawanda MEJIA Cervical arthrodesis Shawanda MEJIA Hernia repair Saede crawfordMark Repair of left ingui nal hernia Shawanda MEJIA Repair of musculoten dinous cuff of shoulder Saeed Cantu JrMark Transesophageal echocardiography Shawnada MEJIA Plan of Treatment Date Care Activity Detail Author Start: 09-04-2031 DTaP,Tdap and Td Vaccines (2 - Tdap) DTaP,Tdap and Td Vaccines (2 - Tdap) [facility] Start: 09-04-2031 Urine microalbumin profile DTAP,TDAP,TD (2 - Tdap) [facility] Start: 06-15-2027 PROSTATE CANCER SCREENING DISCUSSION PROSTATE CANCER SCREENING DISCUSSION [facility] Start: 02-18-2026 Adult BMI Screening Adult BMI Screening [facility] Start: 02-18-2026 Tobacco Screening Tobacco Screening [facility] Start: 11-30-2025 Lipid panel Cholesterol [facility] Start: 07-15-2025 End: 07-15-2025 Patient encounter procedure 07/15/2025 3:00 PM EDT [facility] [address] [place] [id number] Sage Cam DO [address] [place] [address] N[address] Start: 06-11-2025 Adult BMI Screening Adult BMI Screening [facility] Start: 06-11-2025 Tobacco Screening Tobacco Screening [facility] Start: 06-11-2025 End: 06-11-2025 Patient encounter procedure 06/11/2025 10:30 AM EDT Office Visit [facility] [address] [place] [id number] Román Hoang MD [address] [place] [address] [facility] Start: 05-26-2025 Influenza vaccination Influenza Vaccine [facility] Start: 02-18-2025 End: 02-18-2026 XR Knee - right 4 Views [facility] Work Phone: Comment on above: Expected: 02/18/2025, Expires: Start: 11-02-2024 Adult BMI Screening Adult BMI Screening [facility] Start: 11-02-2024 Tobacco Screening Tobacco Screening [facility] Start: 07-17-2024 End: 07-17-2024 Patient encounter procedure 07/17/2024 2:30 PM EDT Office Visit [facility] [address] [place] [phone] Sage Cam DO [address] [place], [place] [id number] [facility] [address] Start: 06-12-2024 End: 06-12-2025 Thyrotropin [Units/volume] in Serum or Plasma TSH Lab Routine Sarah's disease (CMS/HCC) Expected: 06/12/2024 (Approximate), Expires: 06/12/2025 [facility] Comment on above: Expected: 06/12/2024 (Approximate), Expi res: 06/12/2025 Start: 06-12-2024 End: 06-12-2025 Thyroxine (T4) free [Mass/volume] in Serum or Plasma T4, free Lab Routine Sarah's disease (CMS/HCC) Expected: 06/12/2024 (Approximate), Expires: 06/12/2025 [facility] Comment on above: Expected: 06/12/2024 (Approximate), Expi res: 06/12/2025 Start: 06-12-2024 End: 06-12-2025 Triiodothyronine (T3) Free [Mass/volume] in Serum or Plasma T3, free Lab Routine Sarah's disease (CMS/HCC) Expected: 06/12/2024 (Approximate), Expires: 06/12/2025 [facility] Work Phone: Comment on above: Expected: 06/12/2024 (Approximate), Expi res: 06/12/2025 Start: 05-26-2024 COVID-19 Vaccine ( season) COVID-19 Vaccine ( season) [facility] Start: 05-26-2024 COVID-19 Vaccine ( season) COVID-19 Vaccine ( season) [facility] Start: 05-26-2024 Influenza vaccination [facility] Start: 02-22-2024 Fall Risk Screening Fall Risk Screening [facility] Start: 02-22-2024 Pneumococcal Vaccine: 65+ Years (1 of 1 - PCV) Pneumococcal Vaccine: 65+ Years (1 of 1 - PCV) [facility] Start: 05-26-2023 COVID-19 Vaccine ( season) COVID-19 Vaccine ( season) [facility] Start: 05-26-2023 Influenza vaccination INFLUENZA (#1) [facility] Start: 09-25-2022 DEPRESSION ASSESSMENT DEPRESSION ASSESSMENT [facility] Start: 09-20-2022 COVID-19 Vaccine (5 - Booster for Pfizer series) COVID-19 Vaccine (5 - Booster for Pfizer series) [facility] Start: 09-20-2022 COVID-19 VACCINE (5 - Pfizer series) COVID-19 VACCINE (5 - Pfizer series) [facility] Start: 07-19-2022 End: 07-19-2022 Patient encounter procedure 07/19/2022 Office Visit Physical Medicine & Rehab/PM&R Jovita Virk MD [address] [place] [phone] [facility] [place] [facility] Start: 06-25-2022 Influenza vaccination Influenza Vaccine (#1) [facility] Start: 05-31-2022 Shingles (RZV) Vaccine (2 of 2) Shingles (RZV) Vaccine (2 of 2) [facility] Start: 01-19-2022 COVID-19 Vaccine (4 - Booster for Pfizer series) COVID-19 Vaccine (4 - Booster for Pfizer series) [facility] Start: 11-15-2021 COVID-19 Vaccine (4 - Booster for Pfizer series) COVID-19 Vaccine (4 - Booster for Pfizer series) [facility] Start: 09-05-2021 Lipid panel Cholesterol [facility] Start: 12-04-2020 DIABETES SCREEN DIABETES SCREEN [facility] Start: 2019 Hepatitis B (HBV) Vaccine (optional start 60+ years) Hepatitis B (HBV) Vaccine (optional start 60+ years) [facility] Start: 2019 RSV vaccine (optional 60+ years) RSV vaccine (optional 60+ years) [facility] Start: 11-23-2014 Annual wellness visit Annual Wellness Visit (G0438) [facility] Start: 06-10-2012 Thyroid stimulating hormone measurement TSH [facility] Start: 2009 Measurement of occult blood in single stool specimen FIT [facility] Start: 2009 Screening for malignant neoplasm of colon CRC Screening [facility] Start: 2009 Shingles (RZV) Vaccine (1 of 2) Shingles (RZV) Vaccine (1 of 2) [facility] Start: 02-22-2004 COLOGUARD (FIT-DNA) COLOGUARD (FIT-DNA) [facility] Start: 02-22-2004 Colonoscopy COLONOSCOPY [facility] Start: 02-22-2004 COLORECTAL CANCER SCREENING COLORECTAL CANCER SCREENING [facility] Start: 02-22-[address] COLONOGRAPHY [facility] Start: 02-22-2004 FECAL OCCULT BLOOD FECAL OCCULT BLOOD [facility] Start: 02-22-2004 Screening for malignant neoplasm of colon [facility] Start: 02-22-2004 SIGMOIDOSCOPY SIGMOIDOSCOPY [facility] Start: 1994 LIPID SCREEN LIPID SCREEN [facility] Start: 1978 Hepatitis A (HAV) Vaccine (optional start 19+ years) Hepatitis A (HAV) Vaccine (optional start 19+ years) [facility] Start: 1977 Adult BMI Follow Up Plan Adult BMI Follow Up Plan [facility] Start: 1977 ANNUAL PCP TEAM CHRONIC DISEASE VISIT ANNUAL PCP TEAM CHRONIC DISEASE VISIT [facility] Start: 1977 Hepatitis C screening Hepatitis C Antibody [facility] Start: 1977 HEPATITIS C SCREENING HEPATITIS C SCREENING [facility] Start: 1977 HIV SCREENING HIV SCREENING [facility] Start: 1977 SPIROMETRY SPIROMETRY [facility] Start: 1977 Tetanus + diphtheria + acellular pertussis vaccine (product) Tdap Booster [facility] Start: 1974 HIV screening HIV Test [facility] Start: 1971 Depression Screening Depression Screening [facility] Start: 1965 PNEUMOCOCCAL (1 - PCV) PNEUMOCOCCAL (1 - PCV) [facility] Start: 1959 Medicare Annual Wellness Visit Medicare Annual Wellness Visit [facility] Start: 1959 Screening for malignant neoplasm of colon [facility] Arthrp kne condyle&p latu medial&lat compartments ROBOTIC REPLACEMENT TOTAL JOINT KNEE Primary osteoarthritis of right knee [facility] Immunizations Immunization Date Immunization Notes [facility] influenza virus vaccine, unspecified formulation Osmin Anthony MD Work Phone: [facility] 08-10-2023 influenza virus vaccine, unspecified formulation Shawanda MEJIA [facility] 08-10-2023 Influenza, injectable, Madin Hanna Canine Kidney, preservative free, quadrivalent [facility] Work Phone: 08-29-2022 zoster vaccine recombinant Shawanda Hernandez PA-C Work Phone: [facility] 07-26-2022 Moderna Monovalent (12+ yrs) COVID-19 vaccine, mRNA, spike protein, LNP, PF, 100 mcg/0.5 mL (JOS=[id number]) [facility] 07-25-2022 Influenza, injectable, Madin [place] Canine Kidney, preservative free, quadrivalent Jovita Virk MD Work Phone: [facility] 04-05-2022 zoster vaccine recombinant Jovita Virk MD Work Phone: [facility] 09-20-2021 SARS-CoV-2 (COVID-19 ) mRNA BNT-162b2 vax Shawanda MEJIA [facility] 09-04-2021 diphtheria, tetanus toxoids and pertussis vaccine Jovita Virk MD Work Phone: [facility] 08-25-2021 SARS-CoV-2 (COVID-19 ) Ad26 vaccine, recombinant Saeed Cantu Jr. [facility] 08-10-2021 influenza, injectable, quadrivalent, preservative free Jovita Virk MD Work Phone: [facility] 08-10-2021 influenza virus vaccine, unspecified formulation Jovita Virk MD Work Phone: [facility] 06-25-2021 influenza virus vaccine, unspecified formulation Saeed Cantu Jr. [facility] 12-22-2020 Pfizer (12+ yrs) SARS-COV-2 (COVID-19) vaccine, mRNA, spike protein, LNP, pres. free, 30 mcg/0.3mL dose ([id number]=[id number]) Jovita Virk MD Work Phone: [facility] 11-30-2020 Pfizer (12+ yrs) SARS-COV-2 (COVID-19) vaccine, mRNA, spike protein, LNP, pres. free, 30 mcg/0.3mL dose (VPF=359) Jovita Virk MD Work Phone: [facility] 08-25-2020 influenza virus vaccine, unspecified formulation Saeed Cantu Jr. [facility] 06-30-2020 influenza, injectable, quadrivalent, preservative free Jovita Virk MD Work Phone: [facility] 12-25-2019 SARS-CoV-2 (COVID-19 ) mRNA BNT-162b2 vax Saeed Cantu Jr. [facility] 11-24-2019 SARS-CoV-2 (COVID-19 ) mRNA BNT-162b2 vax Saeed Pepe Brunson [facility] Payers Date Payer Category Payer Self-pay 2023 Unknown [id number] 2022 Blue [employer] Blue [employer] BCBS [id number] 2022 [employer] [facility] - PPO [id number] 2022 Unknown [id number] 2017 Unknown [id number] 2017 Unknown [id number] 2013 Medicare [id number] 1959 Medicare [id number] 1959 Self-pay [id number] 1959 Unknown [id number] 2.16.840.1.141322.3.579.2. 593 1959 Unknown [id number] 2.16.840.1.957510.3.579.2. 593 1959 Unknown [id number] 2.16.840.1.067738.3.579.2. 593 1959 Unknown [id number] 2.16.840.1.764885.3.579.2. 593 1959 Unknown [id number] 2.16.840.1.602701.3.579.2. 593 1959 Unknown [id number] 2.16.840.1.920969.3.579.2. 593 1959 Unknown [id number] 2.16.840.1.826876.3.579.2. 593 1959 Unknown [id number] 2.16.840.1.156827.3.579.2. 593 1959 Unknown [id number] 2.16.840.1.106409.3.579.2. 593 1959 Unknown [id number] 2.16.840.1.605104.3.579.2. 593 1959 Unknown [id number] 2.16.840.1.068989.3.579.2. 593 1959 Unknown [id number] 2.16.840.1.540250.3.579.2. 1259 1959 Unknown [id number] 2.16.840.1.459682.3.579.2. 1259 1959 Unknown [id number] 2.16.840.1.317324.3.579.2. 727 1959 Unknown [id number] 2.16.840.1.768639.3.579.2. 727 1959 Unknown [id number] 2.16.840.1.382838.3.579.2. 727 1959 Unknown [id number] 2.16.840.1.700079.3.579.2. 727 1959 Unknown [id number] 2.16.840.1.742953.3.579.2. 727 1959 Unknown [id number] 2.16.840.1.936963.3.579.2. 727 1959 Unknown [id number] 2.16.840.1.769911.3.579.2. 1286 1959 Unknown [id number] 2.16.840.1.116134.3.579.2. 1286 1959 Unknown [id number] 2.16.840.1.635881.3.579.2. 1286 1959 Unknown [id number] 2.16.840.1.695524.3.579.2. 1286 Private Health Insurance [facility] [id number] Unknown [id number] Unknown O Netk Access [id number] Unknown [id number] Social History Date Type Detail Facility Start: 10-05-2021 End: 10-21-2024 Tobacco smoking status Never smoked tobacco (finding) [facility] Tobacco smoking status Never [facility] Start: 11-05-2020 End: 04-26-2023 Sex Assigned At Male [facility] Start: 08-24-2011 End: 07-17-2024 Tobacco use and exposure Smokeless tobacco non-user [facility] Start: 12-07-2017 End: 08-12-2022 Alcohol intake Not Asked [facility] Start: 1960 Sex Assigned At Not on file [facility] Start: 08-12-2022 History SDOH Social Connections Phone 1 [facility] Start: 08-12-2022 History SDOH Social Connections Get Together 2 [facility] Start: 08-12-2022 History SDOH Social Connections Baptism 98 [facility] Start: 08-12-2022 Education 12 [facility] Start: 04-26-2023 End: 02-18-2025 Alcohol intake Current drinker of alcohol (finding) [facility] Start: 11-05-2020 End: 04-26-2023 History of Social function [facility] Start: 12-04-2017 Alcohol Comment social [facility] Start: 1960 Sex Assigned At Male F [facility] How often to you hav e a drink containing alcohol? Monthly or less [facility] How many standard drinks containing alcohol do you have on a typical day? 1 or 2 [facility] How often do you hav e 6 or more drinks on 1 occasion? Weekly [facility] Start: 04-30-2015 Sex [facility] (finding) [facility] Start: 08-23-2021 Gender identity Identifies as male gender (finding) [facility] Medical Equipment Procedure Code Equipment Code Equipment Origin al Text Equipment Identifier Dates Brng Tib [id number] mm 0d Kn Ant - [id number] Start: 09-05-2016 Cement Bn Palaco s Radpq 40g Rpl [id number] - [id number] Start: 09-05-2016 Ty Tib 79mm Cocr Kn I Beam - [id number] Start: 09-05-2016 Cmpt Fem Kn Lt 7 0mm Cr Cmnt - [id number] Start: 09-05-2016 Cmpt Ptlr Thn 34 mm 3 Pg Kn Ser - [id number] Start: 09-05-2016 Goals Date Patient Goal Desired Activity /State Personal health goal Comment on above: Formatting of this n ote might be different from the original. Evaluation of progress towards goal: Maximize work with PT at discharge to strengthen L knee Functional Status Date Assessment Result Facility 10-21-2024 Functional Status N/A [facility] 08-13-2024 Functional Status N/A [facility] [place] 05-07-2024 Functional Status N/A [facility] [place] 10-16-2023 Functional Status N/A [facility] 06-12-2023 Functional Status N/A [facility] 12-02-2022 Functional Status N/A [facility] Clinical Notes 04-07-2022 to 02-18-2025 Osmin [...] replacement. He has an appointment with his Osteology Teacher coming up and I explained that he [...] also discussed. He will meet with the therapy site coordinator to schedule the procedure. Informed consent obtained. His knee was re-injected today. Informed consent obtained. Return in about 3 months (around 05/21/2025) for X-Ray-Right Knee, Post Op. Kathie was advised to contact the office if there are any problems, questions, or concerns. *I have seen and evaluated the patient today with my physician financial planning assistant and agree with all aspects of [...] MyChart?: Immediate [1] [facility] Cardiology Clinic Note Chief Complaint: [...] days., Disp: , Rfl: vitamin B complex 577-2-546-2-2 mg/mL injection, Inject into the shoulder, thigh, [...] reversible ischemia. Ejection fraction is normal. [facility] Name: VIANEY LACEY Study Date: 07/11/2023 12:24 PM B/P: 104 mmHg/74 mmHg HR: Date of : 1960 [facility] Height: 68 in. Age: 63 year(s) Patient Room : Weight: 189 lb. Gender: Male Patient Status: OutPt BSA: 2 m2 Indication: Atrial Fibrillation, Pre-Cardioversion Examination: JAMIN (Transesophageal Echo / CFI) Image Quality: Good Patient Consent: Informed, written consent was obtained for the procedure s p @ c 3 Exam Location (more content not included)... [facility] 10-21-2024 Hospital Discharge instructions Patient Education 10/21/2024 [...] urethra. Follow these instructions at home: Take iyku-jum-sftjcds and prescription medicines only as told by [...] provider. Document Revised: 03/30/2022 Document Reviewed: 03/30/2022 [employer] Patient Education 2023 [employer]. Follow Up Care 10/16/2023 14:07:51 With:HERRERA PRIETO, Vianey Crawford, URL Address: [facility] [address] [place] [address]- [phone] When: Unknown Comments:1 yr w/ PSA and T level [facility] 10-21-2024 Note Patient Education Urology Benign [...] Follow these instructions at home: ??? Take acfb-zsv-kfdgtvl and prescription medicines only as told by [...] do not get (more content not included)... [facility] 10-08-2024 History of Present illness Narrative Associated [...] evaluated the patient today with my physician financial planning assistant and agree with all aspects of [...] via procedure documentation documented in this encounter [facility] [employer] 08-13-2024 Note General Surgery Offi ce/Clinic Note [...] SARS-CoV-2 (COVID-19) mRNA BNT-162b2 vax 11/2019 Recorded [facility] Comment on above: Result Comment: [...] was counseled on the risks of stroke, NV, and sudden with NANCY, along with the [...] clinic: 2 months documented in this encounter [facility] 07-16-2024 Note [facility] [...] Box isolaton+ 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 2. Atrial flutter s/p [...] function. He is also recently seen a players club representative. They are weaning of amantadine which was [...] Year: No Utilities: Not At Risk (11/16/2023) [facility] Utilities Threatened with loss of utilities: [...] route for 90 days. vitamin B complex 984-6-663-2-2 mg/mL injection Inject into the shoulder, thigh, [...] as directed. (Pa (more content not included)... [facility] 06-12-2024 History of Present illness Narrative Vianey [...] year (around 06/12/2025). documented in this encounter [facility] 06-11-2024 History of Present illness [...] evaluated the patient today with my physician financial planning assistant and agree with all aspects of [...] via procedure documentation documented in this encounter [employer] 05-07-2024 Note General Surgery Offi ce/Clinic Note [...] prior to procedure. 2. Chronic anticoagulation (Z79.01: buttermaker continuous churn (current) use of 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s) see # 1 [...] - Denies Substa (more content not included)... [facility] Comment on above: Result Comment: Aarti damicoally [...] evaluated the patient today with my physician financial planning assistant and agree with all aspects of [...] documented in this encounter [facility] 10-16-2023 Hospital Discharge instructions Patient Education [...] provider. Document Revised: 01/20/2022 Document Reviewed: 01/20/2022 [employer] Patient Education 2022 [employer]. Follow Up Care 07/31/2023 10:30:59 With:HERRERA PRIETO, Vianey Crawford, URL Address: [facility] [address], [place] [address]- When:Within 1 Year(s) Comments:w/AARON [facility] 07-27-2023 Evaluation note Encounter Date Diagnosis [...] advised him to avoid NSAIDs or any fxmz-eyv-favrt er supplements. This deanna with the importance [...] - G47.33) Continue follow-up with the specialist. Jobaline Other 10-17-2023 History general Narrative - Reported* Type Description Date Medical History FATIGUE Medical History EDEMA Surgical History CARDIO VERSION 07/11/2023 Surgical History LEFT KNEE REPLACEMENT Surgical History C5-C6 PLATE AND SCREWS Surgical History DOUBLE HERNIA REPAIR Surgical History RIGHT SHOULDER SCOPE Surgical History COLONOSCOPY Surgical History CYSTO SCOPE Hospitalization History SEE ABOVE Jobal[facility] Other 09-18-2023 Hospital Discharge instructions Patient Education [...] therapy. Follow these instructions at home: Take hwoa-asc-msvpuuh and prescription medicines only as told by [...] provider. Document Revised: 05/13/2021 Document Reviewed: 05/13/2021 [employer] Patient Education 2022 [employer]. Follow Up Care 05/04/2023 10:34:04 With:HERRERA PRIETO, Vianey Crawford, URL Address: [facility] [address], [place] [address]- [phone] When:Within 6 Month(s) Comments:w/Testosterone Level, PSA and CBC [facility] 08-02-2023 NoteHNO ID: [id number] Author: Shawanda Hernandez PA-C Service: ? Author Type: Physician Hopper Filler Type: Progress Notes Filed: 04/26/2023 11:40 AM [...] Cervical disc disease CVA (cerebral vascular accident) ([facility]) due to head trauma Dysarthria Eczema Hypothyroidism [...] Full Oblique Extension With (more content not included)...[facility] 04-26-2023 History of Present illness Narrative* Shawanda [...] Cervical disc disease CVA (cerebral vascular accident) ([facility]) due to head trauma Dysarthria Eczema Hypothyroidism [...] 2023 TIME: 11:15 AM [facility] Discharge instructions Patient Education 12/02/2022 [...] urethra. Follow these instructions at home: Take wyfa-qfm-yblqsfb and prescription medicines only as told by [...] 09/11/2006 Document Revised: 08/06/2019 Document Reviewed: 10/16/2017 [employer] Patient Education 2020 [employer] Follow Up Care 11/01/2022 10:29:54 With:HERRERA PRIETO, Vianey Crawford, URL Address: [address] [place] [address]- When: Unknown [facility] History of Present illness Narrative* Aarti Kelsey MA, SHANNAN, ASSISTANT DIRECTOR - 08/12/2022 12:27 PM EST SPEECH [...] stated should already be in the system. ASSISTANT DIRECTOR was speaking with patient's spouse via phone conversation attempting to troubleshoot and bypass the preliminary questionnaires. However, it was unsuccessful. ASSISTANT DIRECTOR sent patient's spouse a direct link to her cell phone to connect to video visit and the same issues arose. Patient was connected to Wifi and using an iPad in home setting. The iPad did not successfully pass the hardware test and patient/patient's spouse were never able to successfully log on. ASSISTANT DIRECTOR provided patient/patient's spouse the [facility] Support Team's contact information to reach out for further assistance with log on issues. ASSISTANT DIRECTOR will e-mail patient's spouse/patient information regarding memory strategies, etc to help in the home setting (patient's spouse reported patient tends to misplace belongings, such as keys, etc and could use a refresher on the strategies. Patient's spouse stated she will take a look at the strategies and go from there with scheduling anything further. ASSISTANT DIRECTOR provided patient/spouse with our direct line to [facility] Therapy dept if she has any further questions/concerns or needs to schedule. Patient left without being seen this date. documented in this [id number] Instructions* Patient Instructions* Jovita Virk MD - 07/20/2022 2:49 PM EDT -Get the sleep apnea addressed -Hold amantadine -Add memantine 5mg daily. -External referral for brain MRI. -Speech therapy for cognitive strategies. -R knee surgery. -F/up 1 year, sooner if needed. documented in this [id number] History of Present illness Narrative* Jovita Virk [...] 200 mg into the muscle once amonth. 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 Last available brain imaging [id number] showed ventriculomegaly that was deemed not hydrocephalus [...] Risk protocol implemented: No documented in this [id number] Telephone encounter Note* Telephone Encounter - Renetta [...] PCP on file No PCP on file [id number] Miscellaneous Notes* Telephone Encounter - Renetta Boyer [...] Appointment Date:02/01/2022 10:00:00 AM Scheduled Provider: Location:[facility] Appointment Type:URO Nurse Visit Appointment Date:03/01/2022 09:00:00 AM Scheduled Provider:Saeed Cantu Jr., MD Location:[facility] Appointment Type:URO Office Visit Appointment Date:04/05/2022 11:15:00 AM Scheduled Provider:Saeed Cantu Jr., MD Location:[facility] Appointment Type:URO Office Visit [facility] evaluation + Plan note Future Appointments Appointment Date:03/01/2022 09:00:00 AM Scheduled Provider:Saeed Cantu Jr., MD Location:[facility] Appointment Type:URO Office Visit Appointment Date:04/05/2022 11:15:00 AM Scheduled Provider:Saeed Cantu Jr., MD Location:[facility] Appointment Type:URO Office Visit [facility] evaluation + Plan note Future Appointments Appointment Date:04/05/2022 11:15:00 AM Scheduled Provider:Pepe Brunson MD, Saeed Landa Location:[facility] Appointment Type:URO Office Visit Diagnostic Tests Pending * Testosterone Level Total 03/01/22 [facility] evaluation + Plan note Future Appointments Appointment Date:07/11/2022 10:15:00 AM Scheduled Provider: Location:[facility] Appointment Type:URO Nurse Visit [facility] evaluation + Plan note Future Appointments Appointment Date:09/07/2022 10:00:00 AM Scheduled Provider: Location:[facility] Appointment Type:URO Nurse Visit [facility] evaluation + Plan note Future Appointments Appointment Date:10/05/2022 10:00:00 AM Scheduled Provider: Location:[facility] Appointment Type:URO Nurse Visit [facility] [employer]uation + Plan note Future Appointments Appointment Date:11/01/2022 10:00:00 AM Scheduled Provider: Location:[facility] Appointment Type:URO Nurse Visit [facility] evaluation + Plan note Future Appointments Appointment Date:11/30/2022 10:00:00 AM Scheduled Provider:Taylor Joshua MD Location:[facility] Appointment Type:URO Office Visit Diagnostic Tests Pending * CBC w/ Auto Diff 11/01/22 * Testosterone Level Total 11/01/22 [facility] evaluation + Plan note Diagnostic Tests Pending * Testosterone Level Total 12/17/22 * Testosterone Level Total 04/25/23 [facility] evaluation + Plan note Future Appointments Appointment Date:04/05/2023 10:00:00 AM Scheduled Provider: Location:[facility] Appointment Type:URO Nurse Visit [facility] evaluation + Plan note Future Appointments Appointment Date:05/30/2023 10:00:00 AM Scheduled Provider: Location:[facility] Appointment Type:URO Nurse Visit [facility] evaluation + Plan note Future Appointments Appointment Date:07/10/2023 09:30:00 AM Scheduled Provider: Location:[facility] Appointment Type:URO Nurse Visit Appointment Date:11/27/2023 09:45:00 AM Scheduled Provider:Vianey MENDOZA MD Location:[facility] Appointment Type:URO Office Visit Diagnostic Tests Pending * Testosterone Level Total 06/12/23 * PSA Total 06/12/23 * CBC w/ Auto Diff 06/12/23 [facility] evaluation + Plan note Future Appointments Appointment Date:10/21/2024 10:15:00 AM Scheduled Provider:Vianey MENDOZA MD Location:[facility] Appointment Type:URO Office Visit Diagnostic Tests Pending * PSA Total 10/16/23 [facility] evaluation + Plan note Future Appointments Appointment Date:10/21/2024 10:15:00 AM Scheduled Provider:Vianey MENDOZA MD Location:[facility] Appointment Type:URO Office Visit [facility] Evaluation + Plan note Future Appointments Appointment Date:10/27/2025 10:30:00 AM Scheduled Provider:Vianey MENDOZA MD Location:[facility] Appointment Type:URO Office Visit Diagnostic Tests Pending * PSA Total 10/21/24 * Testosterone Level Total 10/21/24 [facility] evaluation note* 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 Body mass index (BMI) 28.0-28.9, adult [facility] Height loss- Primary Loss of height [facility] Work Phone: Evaluation note* Diagnosis Onset Date Resolution Status BPH (benign prostatic hyperplasia) acute CKD (chronic kidney disease) stage 2, GFR 60-89 ml/min acute [id number] acute NANCY (obstructive sleep apnea) acute Renal cyst acute [facility] Work Phone: Evaluation note* Diagnosis NANCY (obstructive sleep apnea)- Primary Obstructive sleep apnea (adult) (pediatric) Hypersomnia Hypersomnia, unspecified Snoring Other dyspnea and respiratory abnormality Atrial fibrillation, unspecified type (CMS/HCC) Sleep deprivation Problems related to lack of adequate sleep documented in this encounter [facility]* 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 documented in this encounter [facility]* Diagnosis Primary osteoarthritis of right knee- Primary [facility] Diagnosis Primary osteoarthritis of right knee- Primary documented in this [facility]* Diagnosis Primary osteoarthritis of right knee- Primary documented in this encounter [facility]* Diagnosis Primary osteoarthritis of right knee- Primary [facility] Narrative No data available for this section [facility] Hospital Discharge instructions No data available for this section [facility] InstructionsNot on filedocumented in this encounter [facility] System[facility]ructionsNot on filedocumented in this encounter [facility] SystemInstructions* Attachments The following attachments cannot be sent through Care Everywhere. * Steroid injection (Cuban) * Knee replacement (Cuban) [facility] No data available for this section [facility] Advance Directives No Advanced Directives Records [...] of brain injury (HCC) Jovita Virk MD [address] [place] [address] Referral ID Status Reason Start Date Expiration Date Visits Requested Visits Authorized [id number] Authorized Patient Preference 2 07/20/2023 3 3 Comments Brain MRI without contrast. H/o TBI 2010. Continues to struggle with cognitive deficits, fatigue, impaired balance, unimproved. Please evaluate for other structural causes of these issues. Fax report to me at [phone]. Specialty Diagnoses / Procedures Referred By Stephany flower Referred To Contact Speech Pathology Diagnoses Cognitive changes Late effect of brain injury (HCC) Jovita Virk MD [address] [place] [phone] [place] [address] Referral ID Status Reason Start Date Expiration Date Visits Requested Visits Authorized [id number] Pending Review Consultatio n-[facility] 2 07/20/2023 10 10 Question [...] kidney disease) stage 2, GFR 60-89 ml/min [id number] NANCY (obstructive sleep apnea) Renal cyst Additional [...] Care Teams (unrecognized sec tion and content) Emergency Room Orderly Relationship Specialty Start Date End Date Jovita Virk MD [address] [place] [address] Physician Physical Medicine & Rehab/PM&R 06/30/20 Emergency Room Orderly Relationship Specialty Start Date End Date Jovita Virk MD [address] [place], [place] Physician Physical Medicine & Rehab/PM&R 06/30/20 Emergency Room Orderly Relationship Specialty Start Date End Date Jovita Virk MD [address] [place] [address] Physician Physical Medicine & Rehab/PM&R 06/30/20 Emergency Room Orderly Relationship Specialty Start Date End Date Ilda [...] June 06, 2024 End: June 06, 2024 Emergency Room Orderly Relationship Specialty Start Date End Date Ilda Hendrickson MD [address] [place] [address] PCP - General Family Medicine 05/13/24 Emergency Room Orderly Relationship Specialty Start Date End Date Ilda Hendrickson MD [address] [place] [address] PCP - General Family Medicine 05/13/24 Emergency Room Orderly Relationship Specialty Start Date End Date Ilda Hendrickson MD [address] [place] [address] PCP - General Family Medicine 05/13/24 Emergency Room Orderly Relationship Specialty Start Date End Date Ilda Hendrickson MD [address] [place] [address] PCP - General Family Medicine 05/13/24 Emergency Room Orderly Relationship Specialty Start Date End Date Ilda Hendrickson MD PCP - General 07/05/16 Emergency Room Orderly Relationship Specialty Start Date End Date Ilda Hendrickson MD [address] [place] [address] PCP - General 07/05/16 Emergency Room Orderly Relationship Specialty Start Date End Date Ilda Hendrickson MD PCP - General 07/05/16 Emergency Room Orderly Relationship Specialty Start Date End Date Ilda Hendrickson MD PCP - General 07/05/16 (unrecognized sect ion and content) No Status Records FoundNo Status Records FoundNo Status Records FoundNo Status Records FoundNo Status Records FoundNo Status Records FoundNo Status Records FoundNo Status Records Found INFORMATION SOURCE (unrecogn ized section and content) DATE CREATED AUTHOR 01/27/2023 [facility] DATE CREATED AUTHOR AUTHOR'S ORGANIZ ATION 04/27/2023 [facility] DATE CREATED AUTHOR AUTHOR'S ORGANIZ ATION 09/23/2023 [facility] DATE CREATED AUTHOR AUTHOR'S ORGANIZ ATION 04/12/2024 [facility] DATE CREATED AUTHOR AUTHOR'S ORGANIZ ATION 07/19/2024 [facility] DATE CREATED AUTHOR AUTHOR'S ORGANIZ ATION 10/23/2024 [facility] DATE CREATED AUTHOR AUTHOR'S ORGANIZ ATION 2025 [facility] DATE CREATED AUTHOR AUTHOR'S ORGANIZ ATION 2025 [facility] Source Comments (unrecognize d section and content) In the event this informatio n is protected by the Federal Confidentiality of Alcohol and Drug Abuse Patient Records regulations: The Federal rules restrict any use of the information to criminally investigate or prosecute any alcohol or drug abuse patient.[facility] Goals (unrecognized section and content) Goals [...] BE BASED ON THE PRIMARY CLINICAL RECORDS. [facility] [facility] provides no warranty or guarantee of the accuracy or completeness of information in this document.
[2025-05-13 15:56] LABS: Albumin Level 4.2 g/dL (3.4-5.0)
== END 2025-05-13 12:12 | disposition home or self-care (01) ==
LOC: LAB 12:14
PROVIDERS: PCP Family Medicine; Visit Provider Orthopaedic Surgery
DX: Z79.899 Other long term (current) drug therapy (principal); M17.11 Unilateral primary osteoarthritis, right knee; M81.0 Age-related osteoporosis without current pathological fracture; I10 Essential (primary) hypertension; D72.819 Decreased white blood cell count, unspecified
CPT/HCPCS: 36415; 80323; 82042; 82306; 83036; 87081

== ENCOUNTER 2025-05-13 12:16 | Outpatient (OUT) | payer BC, MEDICARE, SELFPAY ==
[2025-05-13 12:52] LABS: Hematocrit 45.4 % (42.0-54.0); Hemoglobin 15.5 g/dL (14.0-18.0); Immature Granulocytes Abs Auto 0.01 10^3/uL (0.00-0.03); Immature Granulocytes Pct Auto 0.3 % (0.0-0.5); Lymphocytes Absolute Auto 0.8 10^3/uL (1.2-3.8); Mean Corpuscular HGB Conc 34.1 g/dL (29.9-35.2); Mean Corpuscular Hemoglobin 30.2 pg (25.9-34.0); Mean Corpuscular Volume 88.5 fL (80.0-94.0); Platelet Count 136 10^3/uL (150-450); Red Blood Count 5.13 10^6/uL (4.70-6.10); White Blood Count 3.5 10^3/uL (4.0-11.0)
[2025-05-13 13:48] LABS: Anion Gap 9.2; Blood Urea Nitrogen 19.0 mg/dL (7.0-18.0); Calcium 9.2 mg/dL (8.5-10.1); Carbon Dioxide 29.2 mmol/L (21.0-32.0); Chloride 104 mmol/L (98-107); Estimated GFR (African America >60 (>=60 mL/min/1.73m^2); Estimated GFR (Non-African Ame >60 (>=60 mL/min/1.73m^2); Glucose 94 mg/dL (74-106); Potassium 4.4 mmol/L (3.5-5.1); Sodium 138 mmol/L (136-145)
--- OUTSIDE RECORDS SUMMARY | 2025-05-13 14:55 | XMS_ITS | CCD ---
Author Organization [facility] Care Team Providers Care Vice President Regulatory Name Role Phone Ilda Hendrickson Primary Care [...] Unavailable Ilda Hendrickson MD Primary Care Provider [phone] ILDA HENDRICKSON Primary Care Unavailable SHAWANDA HERNANDEZ Attending Unavailable Sandoval Knight Unavailable MD Ilda Hendrickson Primary Care Provider [phone] MD Tracy Griffin Attending Provider Ilda Hendrickson Primary Care Unavailable Tracy Griffin Attending Unavailable Tracy Griffin Admitting Unavailable Ilda Hendrickson MD Primary Care Provider [phone] ROMÁN HOANG Attending Unavailable SAGE CAM Attending Unavailable Unavailable [facility] Ilda Regan MD Primary Care Provider [phone] Shawanda MEJIA Attending Unavailable Vianey MENDOZA Attending Unavailable Vianey MENDOZA Attending Unavailable Vianey MENDOZA Attending Unavailable NILShawanda Landa Attending Unavailable Shawanda MEJIA Attending Unavailable Ilda Hendrickson MD Primary Care Provider [phone] Ilda Hendrickson MD Primary Care Provider [phone] JOE WILLIAM Attending Unavailable BAKARI SCOTT [...] Drug Allergy 4 Patient reported problems (finding) [facility] General Surgery Protivin (1 source) Ciprofloxacin Drug Allergy [address] [facility] Repository (1 source) Ciprofloxacin; Translations: [Cipro] Drug Allergy [facility] Repository (1 source) No Known Medication Allergies; Translations: [No Known Medication Allergies] Propensity to adverse reactions (disorder) [facility] Repository Medications Current Medications Medication Drug [...] q4wk, # 10 mL, Refills(s) 1, Pharmacy: [facility]/pharmacy #[id number], 167, cm, 10/05/21 11:32:00 EST, [...] 1 capsule by mouth once darius ly Guion Aspartate 20 mg cap Take 1 capsule by mouth once daily. 0 Active Comment on above: Take 1 capsule by mo [facility] once daily. memantine hydrochloride 5 mg oral tablet (5 sources) G-obkpcw-J-aspartat e Receptor Antagonist Start: 2 End: 2 [...] Daily, # 90 cap(s), Refills(s) 3, [id number], cm, 10/21/24 11:01:00 EST, Height/Length Dosing, 84, kg, 10/21/24 11:01:00 EST, Weight Dosing Start Date: 10/21/24 Status: Ordered Start: 11-24-2021 End: 11-19-2022 take 1 capsule by mouth twice daily Flomax 0.4 mg Cap 0.4 mg = 1 cap(s), Oral, BID, X 90 day(s), # 180 cap(s), Refills(s) 3, [id number] 167, cm, 10/05/21 11:32:00 EST, Height/Length Dosing, 83, kg, 10/05/21 11:32:00 EST, Weight Dosing Start Date: 11/24/21 Stop Date: 11/19/22 Status: Ordered Start: 02-08-2017 take 1 capsule by [facility] once daily tamsulosin 0.4 mg Cap 0.4 mg = 1 cap(s), Oral, Daily, # 90 cap(s), Refills(s) 3, [id number] 170, cm, 05/07/24 15:15:00 EDT, Height/Length Dosing, 83, kg, 05/07/24 15:15:00 EDT, Weight Dosing Start Date: 06/20/24 Status: Ordered take 1 capsule by [facility] every twenty-four hours in the morning tamsulosin (FLOMAX) 0.4 mg capsule,extended release 24hr Take 1 capsule (0.4 mg total) by mouth in the morning. Active Comment on above: 0.4 mg once daily. testosterone cypionate 200 mg/ml injectable solution (17 sources) Androgen Start: 05-03-2023 Depo-Testosterone 200 mg/mL intramuscular solution 300 mg, IntraMuscular, q4wk, # 10 mL, Refills(s) 1, Pharmacy: [facility]/pharmacy #[id number], 170, cm, 12/02/22 8:17:00 EST, Height/Length Dosing, 83.2, kg, 12/02/22 8:17:00 EST, Weight Dosing Start Date: 05/03/23 Status: Ordered Start: 09-07-2022 Depo-Testoster one 200 mg/mL intramuscular solution 300 mg, IntraMuscular, q4wk, # 10 mL, Refills(s) 1, [id number], 167, cm, 10/05/21 11:32:00 EST, Height/Length Dosing, 83, kg, 05/10/22 10:08:00 EDT, Weight Dosing Start Date: 09/07/22 Status: Ordered Start: 01-04-2022 Depo-Testoster one 200 mg/mL intramuscular solution 300 mg, IntraMuscular, q4wk, # 10 mL, Refills(s) 1, [id number] 167, cm, 10/05/21 11:32:00 EST, Height/Length [...] sources) Long-term current use of 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; Translations: [adjunct faculty for medical terminology (current) use of 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s] Onset: 4 Episodic [...] is normal. Thank you. Patient's informed. Normal [facility] XR KNEE RT MIN 4 VWSon 02-19 [...] Duncan MD on 02/19/2025 4:30 PM Normal [facility] $ Large Joint Injection: Ty alarcon [...] to prep the skin.). MANUALLY TRANSCRIBED RESULTS [facility] Orders Onlyon 02-13-2025 Orders Only [id number] Vianey Lacey 1960 M Date Provider Department [place] 02/13/2025 [id number], HISTORICAL CARD [facility] Family History Problem Relation Age of Onset Cancer Mother Diabetes Mother Coronary artery disease Father Stroke Father Cancer Father Family Status - Relation Status Age at Mother Father Sister Brother [facility] Office Visiton 01-21-2025 Follow-up visit [id number] Vianey Lacey 1960 M Date Provider Department Center 01/21/2025 Isa-PHILLIPDEVONJOE [facility] Family History Problem Relation Age of Onset Cancer Mother Diabetes Mother Coronary artery disease Father Stroke Father Cancer Father Family Status - Relation Status Age at Mother Father Sister Brother Level of Service:21737 [place] OFFICE/OUTPATIENT ESTABLISHED MOD MDM 30 MIN [facility] 36on 11-21-2024 36 Patient's would like you to review his most recent labs from 11/20/2024 and see if he should start lisinopril. 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 Nitza says he never started lisinopril because they were keeping an eye on his renal function. Recent BP's have been 141/84, 136/83, 143/87, 141/83. Also, she is looking into buying an infrared sauna, but wasn't sure how you felt about PJ using it with his heart and kidney issues. Please advise. Thanks! Normal [facility] Urology Office/Clinic Noteon 10-21-2024 Urology Office/Clinic Note Urology Office/Clinic Note Chief Complaint 1 year f/u HPI Staff 64yr old male pt here for 1yr f/u with PSA. Previous Dx: BPH with urinary obstruction, hypogonadism male, urge incontinence, ED *Tamsulosin 0.4mg QD PSA 09/06/21 - 0.70 06/15/22 - 0.79 He did have labs done @ [facility] but no PSA Dysuria: denies [...] -Cont Tamsulosin wo changes. Refills sent to [facility]. -Complete PSA level soon. Will call [...] Urology [address], [place] [address] [id number] Additional Instructions: 1 yr w/ PSA and T level Patient Education Benign Prostatic Hyperplasia I, Nicki Jackson, personally scribed for Dr. Mnedoza on 10/21/2024 11:56:36. . Documentation recorded by [...] levothyroxine 150 (more content not included)... Normal [facility] Comment on above: Result Comment: Elec [...] with betadine and alcohol.). MANUALLY TRANSCRIBED RESULTS [facility] Ambulatory Visit Summaryon 1 10-13-2023 Ambulatory Visit Summary Ambulatory Visit Summary VIANEY LACEY :1960 Visit Date:08/13/2024 Ambulatory Visit Instructions Your Care Team Attending Physician - ROBERTO PRIEOT, Shawanda Crawford Primary Care Physician - Ilda [...] Vianey MENDOZA MD Where: [facility] [address] [place] [address]- Medications What How Much When Instructions Unchanged [...] for choosing us for your care. Normal [facility] Office Visiton 07-16-2024 Follow-up visit [id number] Vianey Lacey 1960 M Date Provider Department Center 07/16/2024 [facility] Problem Relation Age of Onset Cancer Mother Diabetes Mother Coronary artery disease Father Stroke Father Cancer Father Family Status - Relation Status Age at Mother Father Level of Service:42905 MS OFFICE/OUTPATIENT ESTABLISHED LOW MDM 20 MIN Normal [facility] $ Large Joint Injection: R k [...] with betadine and alcohol.). MANUALLY TRANSCRIBED RESULTS [employer] Orders Onlyon 06-11-2024 Orders Only [id number] AbhijitVianey Dayna 1960 M Date Provider Department Center 06/11/2024 Isa-JOE WILLIAM [facility] Family History Problem Relation Age of Onset Cancer Mother Diabetes Mother Coronary artery disease Father Stroke Father Cancer Father Family Status - Relation Status Age at Mother Father Normal [facility] Erythrocyte distribution wid th Auto (RBC) [Ratio]on 06-03-2024 Erythrocyte distribution width (RBC) [Ratio] 13.3 % 11.0-15.[address] [facility] Estimated glomerular filtrat ion rate (GFR) non- Americanon 06-03-2024 GFR/1.73 sq M.predicted among non-blacks MDRD (S/P/Bld) [Vol rate/Area] mL/min/{1.73_m2} >=[address] [facility] Hematocrit Auto (Bld) [Volum e fraction]on 06-03-2024 Hematocrit (Bld) [Volume fraction] 45.4 % 42.0-54.[address] [facility] Hemoglobin [Mass/volume] in Bloodon 06-03-2024 Hemoglobin (Bld) [Mass/Vol] 15.4 g/dL 14.0-18.[address] [facility] Laboratory - Chemistry and C hemistry - challengeon 06-03-2024 Albumin [Mass/Vol] 3.8 g/dL 3.4-5.0 [facility] Calcium [Mass/Vol] 8.9 mg/dL 8.5-10.1 [facility] Chloride [Moles/Vol] 101 mmol/L 98-107 [facility] CO2 [Moles/Vol] 31.2 mmol/L 21.0-32.0 [facility] Creatinine [Mass/Vol] 1.06 mg/dL 0.70-1.[address] [facility] GFR/1.73 sq M.predicted MDRD (S/P/Bld) [Vol rate/Area] mL/min/{1.73_m2} >=[address] [facility] Glucose [Mass/Vol] 91 mg/dL 74-106 [facility] Magnesium [Mass/Vol] 1.9 mg/dL 1.8-2.4 [facility] Potassium [Moles/Vol] 3.9 mmol/L 3.5-5.[address] [facility] Sodium [Moles/Vol] 138 mmol/L 136-145 [facility] Urate [Mass/Vol] 4.7 mg/dL 3.5-7.2 [facility] Urea nitrogen [Mass/Vol] 18.0 mg/dL 7.0-18.[address] [facility] Urea nitrogen/Creatinine [Mass ratio] 17.0 mg/mg [facility] Bilirubin Ql (U) Negative NEGATIVE [facility] Glucose (U) [Mass/Vol] Negative NEGATIVE [facility] Ketones Ql (U) Negative NEGATIVE [facility] pH (U) 5.5 [pH] 5.0-9.[address] [facility] Specific gravity (U) [Rel density] 1.020 1.005-1.[address] [facility] Urobilinogen Qn (U) 0.2 {Brenda'U}/dL 0.2-1.[address] [facility] Laboratory - Specimen inform ationon 06-03-2024 Appearance (U) CLEAR CLEAR [facility] Color (U) YELLOW YELLOW [facility] Laboratory - Urinalysison Leukocyte esterase Test strip Ql (U) Negative NEGATIVE [facility] Mucus Ql (Urine sed) NONE SEEN NONE SEEN [facility] Nitrite Ql (U) Negative NEGATIVE [facility] Protein (U) [Mass/Vol] 6.9 mg/dL <=11.9 [facility] Protein Ql (U) Negative NEG/TRACE [facility] Leukocytes [#/volume] correc kim for nucleated erythrocytes in Blood by Automated counon 06-03-2024 WBC corrected for nucl RBC Auto (Bld) [#/Vol] 3.2 10 3/uL Low 4.0-11.[address] [facility] MCH Auto (RBC) [Entitic mass ]on 06-03-2024 MCH (RBC) [Entitic mass] 29.7 pg 25.9-34.[address] [facility] MCHC Auto (RBC) [Mass/Vol]on 06-03-2024 MCHC (RBC) [Mass/Vol] 33.9 g/dL 29.9-35.[address] [facility] MCV Auto (RBC) [Entitic vol] on 06-03-2024 MCV (RBC) [Entitic vol] 87.5 fL 80.0-94.[address] [facility] No Panel Informationon 06-03 25-Hydroxy Vitamin D Total 74.8 ng/mL [facility] Comment on above: <20 ng/mL Vit D defi cient20-<30 ng/mL Vit D [id number] ng/mL Vit D sufficient>100 ng/mL Potential Toxicity Parathyroid Hormone (Intact) 34 pg/mL 15-[address] [facility] Comment on above: Performed at: [address] [id number] Director: Aleks Ferreira PhD, Phone: [phone] Phosphorus Level 2.9 mg/dL 2.6-4.7 [facility] Urine Bacteria NONE SEEN #/HPF NONE SEEN [facility] U[facility] Occult Blood Negative NEGATIVE [facility] Urine Random Creatinine 107.55 mg/dL 20.00-300.[address] [facility] Urine RBC NONE SEEN #/HPF 0-[address] [facility] Urine Squamous Epithelial Cells RARE #/LPF NONE/RARE [facility] Urine WBC NONE SEEN #/HPF NONE SEEN [facility] Platelet mean volume Auto (B ld) [Entitic vol]on 06-03-2024 Platelet mean volume (Bld) [Entitic vol] 9.5 fL 9.5-13.[address] [facility] Platelets Auto (Bld) [#/Vol] on 06-03-2024 Platelets (Bld) [#/Vol] 126 10 3/uL Low 150-[address] [facility] RBC Auto (Bld) [#/Vol]on RBC (Bld) [#/Vol] 5.19 10 6/uL 4.70-6.10 [facility] Serum or plasma anion gap de terminationon 06-03-2024 Anion gap [Moles/Vol] 9.7 mmol/L [facility] Urine protein/creatinine rat ioon 06-03-2024 Protein/Creatinine (U) [Ratio] 0.[address] [facility] Reminderson 05-30-2024 Reminders Reminders From: Melissa Nash LPN To: N - Clinical; Sent: 05/30/2024 15:23:45 EDT Show up: 04/28/2034 07:00:00 EDT Subject: colonoscopy recall Due Date/Time: 05/29/2034 07:00:00 EDT Reminder/Recall Patient due for screening colonoscopy 05/29/2034. Normal [facility] Ambulatory Visit Summaryon 0 05-07-2024 Ambulatory [...] PRIETO, Vianey Crawford Where: [facility] [address] Medications What How Much When Instructions [...] for choosing us for your care. Normal [facility] 36on 04-11-2024 36 Patient needs scheduled for colonoscopy and would like to know if he can hold Eliquis prior. Please advise. Thanks! Normal [facility] Luther 04-05-2024 L Specimen: [id number] Received: 04/08/24 Status: ROYER Fernandes Num: [id number] Spec Type: Impression Subm Dr: Tracy Griffin MD Tissues: PATHPER Procedures: PATHREVIEW Age/ Patient Sex Location Account Attending Physician Vianey Lacey 64/M [facility] [id number] Tracy Griffin MD SPEC NUM: [id number] RECD: 04/08/24 STATUS: ROYER FERNANDES NUM: [id number] LADONNA: 04/05/[address]: Tracy Griffin MD ENTERED: 04/08/[address] [facility] DR: Odell Dillard SPEC TYPE: Impression DEPT: SB Grey ENTERED BY: [id number] RECV BY: [id number] ORDERED: PATHREVIEW ORDERED: PATHREVIEW Pathologist Review Abnormal [...] autoimmune disease, again requiring clinical correlations CPT: 06405 -------- -------- Specimen: [id number] Received: 04/08/24 Status: ROYER Fernandes Num: [id number] Spec Type: Impression Subm Dr: Tracy Griffin MD Tissues: PATHPER Procedures: PATHREVIEW -------- Patient: Vianey Lacey [id number] (Continued) -------- Signed (signature on file) Memo Morrison MD 04/09/24 1024 [facility] $ Large Joint Injection: R [...] with betadine and alcohol.). MANUALLY TRANSCRIBED RESULTS [employer] [facility] Physician Referralon 024 Physician Referral [phone] [id number] Normal [facility] Telephone Encounteron 2022 Medical Oncology Physician Authentication Interface Message Text Patient has not been seen by this specialist in more than 1 year. Please contact patient to schedule office visit. Thank you Normal [facility] [employer] [facility] CNOVon 04-26-2023 CNOV Office Visit (SPMESH ) CORINNEVIANEY AGUILERA ([id number]) 1960 M Date Time Provider Department 04/26/23 [...] palpable masses (more content not included)... Normal [facility] TESTOSTERONE, TOTALon 2022 Testosterone [Mass/Vol] 347 ng/dL Normal 264-916 [facility] Comment on above: Result Comment: Adul t male reference interval is based on a population of healthy nonobese males (BMI <30) between 19 and 39 years old. stephania Salinas.al. JCEM 2017,102;9080-5558. PMID: [id number]. Performed By: #### T ESTTOT #### [facility] [address] [place] [address] Dr. Reuben Morrison XR TSPINE 3 VIEWSon [...] ALFREDITO LOAIZA Date: 2022-11-18 16:11 Normal [facility] TESTOSTERONE, TOTALon 2022 Testosterone [Mass/Vol] 993 ng/dL Critically high 264-916 [facility] Comment on above: Result Comment: Adul t male reference interval is based on a population of healthy nonobese males (BMI <30) between 19 and 39 years old. Brad et.al. JCEM 2017,102;8805-6980. PMID: [id number]. Performed By: #### T ESTTOT #### [facility] [address] [place] [address] Dr. Reuben Morrison CBC AUTO DIFFon 06-15-2022 BASO # 0.0 103/ul Normal 0.0-0.1 [facility] Comment on above: Performed By: #### C BC #### [facility] [address] [place] [address] Dr. Reuben Morrison Basophils/100 WBC (Bld) 0.4 % Normal 0.2-2.0 [facility] Comment on above: Performed By: #### C BC #### [facility] [address] [place] [address] Dr. Reuben Morrison EO # 0.1 103/ul Normal 0.0-0.7 [facility] Comment on above: Performed By: #### C BC #### [facility] [address] [place] [address] Dr. Reuben Morrison Eosinophils/100 WBC (Bld) 1.3 % Normal 0.9-7.0 [facility] Comment on above: Performed By: #### C BC #### [facility] [address] [place] [address] Dr. Reuben Morrison Erythrocyte distribution width (RBC) [Ratio] 14.3 % Normal 11.0-15.0 [facility] Comment on above: Performed By: #### C BC #### [facility] [address] [place] [address] Dr. Reuben Morrison Hematocrit (Bld) [Volume fraction] 48.9 % Normal 42.0-54.0 [facility] Comment on above: Performed By: #### C BC #### [facility] [address] [place] [address] Dr. Reuben Morrison Hemoglobin (Bld) [Mass/Vol] 16.6 g/dL Normal 14.0-18.0 [facility] Comment on above: Performed By: #### C BC #### [facility] [address] [place] [address] Dr. Reuben Morrison IG # 0.01 10e3/ul Normal 0.00-0.03 [facility] Comment on above: Performed By: #### C BC #### [facility] [address] [place] [address] Dr. Reuben Morrison IG % 0.2 % Normal 0.0-0.5 [facility] Comment on above: Performed By: #### C BC #### [facility] [address] [place] [address] Dr. Reuben Morrison LYMPH # 1.1 103/ul Critically low 1.2-3.8 [facility] Comment on above: Performed By: #### C BC #### [facility] [address] [place] [address] Dr. Reuben Morrison Lymphocytes/100 WBC (Bld) 24.3 % Normal 20.5-60.0 [facility] Comment on above: Performed By: #### C BC #### [facility] [address] [place] [address] Dr. Reuben Morrison MANUAL DIFF REQ NO Normal [facility] Comment on above: Performed By: #### C BC #### [facility] [address] [place] [address] Dr. Reuben Morrison MCH (RBC) [Entitic mass] 29.5 pg Normal 25.9-34.0 [facility] Comment on above: Performed By: #### C BC #### [facility] [address] [address] [address] Reuben Morrison MCHC (RBC) [Mass/Vol] 33.9 g/dL Normal 29.9-35.2 [facility] Comment on above: Performed By: #### C BC #### [facility] [address] [address] [address] Reuben Morrison MCV (RBC) [Entitic vol] 86.9 fL Normal 80.0-94.0 [facility] Comment on above: Performed By: #### C BC #### [facility] [address] [place] [address] Dr. Reuben Morrison MONO # 0.5 103/ul Normal 0.3-0.8 [facility] Comment on above: Performed By: #### C BC #### [facility] [address] [place] [address] Dr. Reuben Morrison Monocytes/100 WBC (Bld) 9.6 % Normal 1.7-12.0 [facility] Comment on above: Performed By: #### C BC #### [facility] [address] [place] [address] Dr. Reuben Morrison NEUT # 3.0 103/ul Normal 1.4-6.5 [facility] Comment on above: Performed By: #### C BC #### [facility] [address] [place] [address] Dr. Reuben Morrison Neutrophils/100 WBC (Bld) 64.2 % Normal 43.0-75.0 [facility] Comment on above: Performed By: #### C BC #### [facility] [address] [place] [address] Dr. Reuben Morrison Platelet mean volume (Bld) [Entitic vol] 9.7 fL Normal 9.5-13.5 [facility] Comment on above: Performed By: #### C BC #### [facility] [address] [place] [address] Dr. Reuben Morrison PLT 130 103/ul Critically low 150-450 [facility] Comment on above: Result Comment: plts . appear slightly decreased Performed By: #### C BC #### [facility] [address] [address] [address] Reuben Morrison RBC 5.63 106/ul Normal 4.70-6.10 [facility] Comment on above: Performed By: #### C BC #### [facility] [address] [address] [address] Reuben Morrison WBC 4.7 103/ul Normal 4.0-11.0 [facility] Comment on above: Performed By: #### C BC #### [facility] [address] [address] [address] Reuben Morrison TESTOSTERONE, TOTALon 2021 Testosterone [Mass/Vol] 404 ng/dL Normal 264-916 [facility] Comment on above: Result Comment: Adul t male reference interval is based on a population of healthy nonobese males (BMI <30) between 19 and 39 years old. stephania Salinas.al. JCEM 2017,102;6424-8026. PMID: [id number]. Performed By: #### T ESTTOT #### [facility] [address] [place] [address] Dr. Reuben Morrison CBC AUTO DIFFon 04-27-2022 BASO # 0.0 103/ul Normal 0.0-0.1 [facility] Comment on above: Performed By: #### T ESTTOT #### [facility] [address] [place] [address] Dr. Reuben Morrison Basophils/100 WBC (Bld) 1.0 % Normal 0.2-2.0 [facility] Comment on above: Performed By: #### T ESTTOT #### [facility] [address] [place] [address] Dr. Reuben Morrison EO # 0.1 103/ul Normal 0.0-0.7 [facility] Comment on above: Performed By: #### T ESTTOT #### [facility] [address] [place] [address] Dr. Reuben Morrison Eosinophils/100 WBC (Bld) 1.8 % Normal 0.9-7.0 [facility] Comment on above: Performed By: #### T ESTTOT #### [facility] [address] [place] [address] Dr. Reuben Morrison Erythrocyte distribution width (RBC) [Ratio] 14.0 % Normal 11.0-15.0 [facility] Comment on above: Performed By: #### T ESTTOT #### [facility] [address] [place] [address] Dr. Reuben Morrison Hematocrit (Bld) [Volume fraction] 47.3 % Normal 42.0-54.0 [facility] Comment on above: Performed By: #### T ESTTOT #### [facility] [address] [place] [address] Dr. Reuben Morrison Hemoglobin (Bld) [Mass/Vol] 16.2 g/dL Normal 14.0-18.0 [facility] Comment on above: Performed By: #### T ESTTOT #### [facility] [address] [place] [address] Dr. Reuben Morrison IG # 0.01 10e3/ul Normal 0.00-0.03 [facility] Comment on above: Performed By: #### T ESTTOT #### [facility] [address] [place] [address] Dr. Reuben Morrison IG % 0.3 % Normal 0.0-0.5 [facility] Comment on above: Performed By: #### T ESTTOT #### [facility] [address] [place] [address] Dr. Reuben Morrison LYMPH # 1.1 103/ul Critically low 1.2-3.8 [facility] Comment on above: Performed By: #### T ESTTOT #### [facility] [address] [place] [address] Dr. Reuben Morrison Lymphocytes/100 WBC (Bld) 26.6 % Normal 20.5-60.0 [facility] Comment on above: Performed By: #### T ESTTOT #### [facility] [address] [place] [address] Dr. Reuben Morrison MANUAL DIFF REQ NO Normal [facility] Comment on above: Performed By: #### T ESTTOT #### [facility] [address] [place] [address] Dr. Reuben Morrison MCH (RBC) [Entitic mass] 29.5 pg Normal 25.9-34.0 [facility] Comment on above: Performed By: #### T ESTTOT #### [facility] [address] [place] [address] Dr. Reuben Morrison MCHC (RBC) [Mass/Vol] 34.2 g/dL Normal 29.9-35.2 [facility] Comment on above: Performed By: #### T ESTTOT #### [facility] [address] [place] [address] Dr. Reuben Morrison MCV (RBC) [Entitic vol] 86.2 fL Normal 80.0-94.0 [facility] Comment on above: Performed By: #### T ESTTOT #### [facility] [address] [place] [address] Dr. Reuben Morrison MONO # 0.4 103/ul Normal 0.3-0.8 [facility] Comment on above: Performed By: #### T ESTTOT #### [facility] [address] [place] [address] Dr. Reuben Morrison Monocytes/100 WBC (Bld) 9.0 % Normal 1.7-12.0 [facility] Comment on above: Performed By: #### T ESTTOT #### [facility] [address] [place] [address] Dr. Reuben Morrison NEUT # 2.5 103/ul Normal 1.4-6.5 [facility] Comment on above: Performed By: #### T ESTTOT #### [facility] [address] [place] [address] Dr. Reuben Morrison Neutrophils/100 WBC (Bld) 61.3 % Normal 43.0-75.0 [facility] Comment on above: Performed By: #### T ESTTOT #### [facility] [address] [address] [address] Reuben Morrison Platelet mean volume (Bld) [Entitic vol] 9.6 fL Normal 9.5-13.5 [facility] Comment on above: Performed By: #### T ESTTOT #### [facility] [address] [address] [address] Reuben Morrison PLT 128 103/ul Critically low 150-450 [facility] Comment on above: Performed By: #### T ESTTOT #### [facility] [address] [address] [address] Reuben Morrison RBC 5.49 106/ul Normal 4.70-6.10 [facility] Comment on above: Performed By: #### T ESTTOT #### [facility] [address] [place] [address] Dr. Reuben Morrison WBC 4.0 103/ul Normal 4.0-11.0 [facility] Comment on above: Performed By: #### T ESTTOT #### [facility] [address] [address] [address] Reuben Morrison INSULINon 03-08-2022 Insulin 4.3 uIU/mL Normal 2.6-24.9 [facility] Comment on above: Performed By: #### T ESTTOT #### [facility] [address] [place] [address] Dr. Reuben Morrison TESTOSTERONE, TOTALon 2021 Testosterone [Mass/Vol] ng/dL Critically high 264-916 [facility] Comment on above: Result Comment: Adul t male reference interval is based on a population of healthy nonobese males (BMI <30) between 19 and 39 years old. Brad, et.al. JCEM 2017,102;2047-6290. PMID: [id number]. Performed By: #### T ESTTOT #### [facility] [address] [place] [address] Dr. Reuben Morrison CBC AUTO DIFFon 03-07-2022 BASO # 0.1 103/ul Normal 0.0-0.1 [facility] Comment on above: Performed By: #### C BC #### [facility] [address] [place] [address] Dr. Reuben Morrison Basophils/100 WBC (Bld) 1.4 % Normal 0.2-2.0 [facility] Comment on above: Performed By: #### C BC #### [facility] [address] [place] [address] Dr. Reuben Morrison EO # 0.1 103/ul Normal 0.0-0.7 [facility] Comment on above: Performed By: #### C BC #### [facility] [address] [place] [address] Dr. Reuben Morrison Eosinophils/100 WBC (Bld) 1.4 % Normal 0.9-7.0 [facility] Comment on above: Performed By: #### C BC #### [facility] [address] [place] [address] Dr. Reuben Morrison Erythrocyte distribution width (RBC) [Ratio] 14.7 % Normal 11.0-15.0 [facility] Comment on above: Performed By: #### C BC #### [facility] [address] [place] [address] Dr. Reuben Morrison Hematocrit (Bld) [Volume fraction] 49.8 % Normal 42.0-54.0 [facility] Comment on above: Performed By: #### C BC #### [facility] [address] [place] [address] Dr. Reuben Morrison Hemoglobin (Bld) [Mass/Vol] 16.4 g/dL Normal 14.0-18.0 [facility] Comment on above: Performed By: #### C BC #### [facility] [address] [place] [address] Dr. Reuben Morrison IG # 0.01 10e3/ul Normal 0.00-0.03 [facility] Comment on above: Performed By: #### C BC #### [facility] [address] [place] [address] Dr. Reuben Morrison IG % 0.3 % Normal 0.0-0.5 [facility] Comment on above: Performed By: #### C BC #### [facility] [address] [address] [address] Reuben Morrison LYMPH # 0.9 103/ul Critically low 1.2-3.8 [facility] Comment on above: Performed By: #### C BC #### [facility] [address] [address] [address] Reuben Morrison Lymphocytes/100 WBC (Bld) 24.7 % Normal 20.5-60.0 [facility] Comment on above: Performed By: #### C BC #### [facility] [address] [address] [address] Reuben Morrison MANUAL DIFF REQ NO Normal [facility] Comment on above: Performed By: #### C BC #### [facility] [address] [place] [address] Dr. Reuben Morrison MCH (RBC) [Entitic mass] 28.9 pg Normal 25.9-34.0 [facility] Comment on above: Performed By: #### C BC #### [facility] [address] [place] [address] Dr. Reuben Morrison MCHC (RBC) [Mass/Vol] 32.9 g/dL Normal 29.9-35.2 [facility] Comment on above: Performed By: #### C BC #### [facility] [address] [place] [address] Dr. Reuben Morrison MCV (RBC) [Entitic vol] 87.7 fL Normal 80.0-94.0 [facility] Comment on above: Performed By: #### C BC #### [facility] [address] [place] [address] Dr. Reuben Morrison MONO # 0.4 103/ul Normal 0.3-0.8 [facility] Comment on above: Performed By: #### C BC #### [facility] [address] [place] [address] Dr. Reuben Morrison Monocytes/100 WBC (Bld) 9.5 % Normal 1.7-12.0 [facility] Comment on above: Performed By: #### C BC #### [facility] [address] [address] [address] Reuben Morrison NEUT # 2.3 103/ul Normal 1.4-6.5 [facility] Comment on above: Performed By: #### C BC #### [facility] [address] [place] [address] Dr. Reuben Morrison Neutrophils/100 WBC (Bld) 62.7 % Normal 43.0-75.0 [facility] Comment on above: Performed By: #### C BC #### [facility] [address] [place] [address] Dr. Reuben Morrison Platelet mean volume (Bld) [Entitic vol] 9.8 fL Normal 9.5-13.5 [facility] Comment on above: Performed By: #### C BC #### [facility] [address] [place] [address] Dr. Reuben Morrison PLT 149 103/ul Critically low 150-450 [facility] Comment on above: Performed By: #### C BC #### [facility] [address] [place] [address] Dr. Reuben Morrison RBC 5.68 106/ul Normal 4.70-6.10 [facility] Comment on above: Performed By: #### C BC #### [facility] [address] [place] [address] Dr. Reuben Morrison WBC 3.7 103/ul Critically low 4.0-11.0 [facility] Comment on above: Performed By: #### C BC #### [facility] [address] [place] [address] Dr. Reuben Morrison FREE THYROXINE INDEX T7on FTI 2.50 Normal 1.30-4.50 [facility] Comment on above: Performed By: #### C MP, T7, TSH, LIPID #### [facility] [address] [place] [address] Dr. Reuben Morrison T3U 39.0 % Normal 33.0-40.0 [facility] Comment on above: Performed By: #### C MP, T7, TSH, LIPID #### [facility] [address] [place] [address] Dr. Reuben Morrison T4 [Mass/Vol] 6.40 ug/dL Normal 4.50-12.10 [facility] Comment on above: Performed By: #### C MP, T7, TSH, LIPID #### [facility] [address] [address] [address] Reuben Morrison GLYCOHEMOGLOBIN A1Con 2021 ADA RECOMMENDATION SEE BELOW Normal [facility] Comment on above: Result Comment: ADA RECOMMENDED LIMIT 4.0 - 6.0 ADA THERAPEUTIC TARGET < 7.0 ACTION SUGGESTED > 7.0 Performed By: #### T ESTTOT #### [facility] [address] [address] [address] Reuben Morrison Glucose [Mass/Vol] 105 mg/dL Normal [facility] Comment on above: Performed By: #### T ESTTOT #### [facility] [address] [address] [address] Reuben Morrison HbA1c (Bld) [Mass fraction] 5.3 % Normal 4.5-6.2 [facility] Comment on above: Performed By: #### T ESTTOT #### [facility] [address] [address] [address] Reuben Morrison IRONon 03-07-2022 Iron [Mass/Vol] 100.0 ug/dL Normal 65.0-175.0 [facility] Comment on above: Performed By: #### I BLAIR, PSASC, VITB12, VITAD #### [facility] [address] [address] [address] Reuben Morrison LIPID PROFILEon 03-07-2022 CHOL-HDL RATIO NORM SEE BELOW Normal [facility] Comment on above: Result Comment: 3.3 - 4.4 LOW RISK 4.4 - 7.1 AVERAGE RISK 7.1 - 11.0 MODERATE RISK >11.0 HIGH RISK Performed By: #### C MP, T7, TSH, LIPID #### [facility] [address] [place] [address] Dr. Reuben Morrison Cholesterol [Mass/Vol] 157 mg/dL Normal <=200 [facility] Comment on above: Performed By: #### C MP, T7, TSH, LIPID #### [facility] [address] [address] [address] Reuben Morrsion Cholesterol in HDL [Mass/Vol] 48 mg/dL Normal 40-60 [facility] Comment on above: Performed By: #### C MP, T7, TSH, LIPID #### [facility] [address] [address] [address] Reuben Morrison Cholesterol in LDL [Mass/Vol] 96.0 mg/dL Normal [facility] Comment on above: Performed By: #### C MP, T7, TSH, LIPID #### [facility] [address] [address] [address] Reuben Morrison Cholesterol.total/Ch olesterol in HDL [Mass ratio] 3.3 {ratio} Normal [facility] Comment on above: Performed By: #### C MP, T7, TSH, LIPID #### [facility] [address] [address] [address] Reuben Morrison HDL NORMAL > or = 60 mg/dl - LO W CARDIOVASCULAR RISK <40 mg/dl - HIGH CARDIOVASCULAR RISK Normal [facility] Comment on above: Performed By: #### C MP, T7, TSH, LIPID #### [facility] [address] [address] [address] Reuben Morrison LDL CALC NORMAL SEE BELOW Normal [facility] Comment on above: Result Comment: <100 mg/dl OPTIMAL 100 - 129 mg/dl NEAR OR ABOVE OPTIMAL 130 - 159 mg/dl BORDERLINE HIGH 160 - 189 mg/dl HIGH >190 mg/dl VERY HIGH Performed By: #### C MP, T7, TSH, LIPID #### [facility] [address] [address] [address] Reuben Morrison Triglyceride [Mass/Vol] 65 mg/dL Normal <=150 [facility] Comment on above: Performed By: #### C MP, T7, TSH, LIPID #### [facility] [address] [address] [address] Reuben Morrison VLDL CALC 13.0 mg/dL Normal [facility] Comment on above: Performed By: #### C MP, T7, TSH, LIPID #### [facility] [address] [place] [address] Dr. Reuben Morrison PROF 14(COMP METB)on 022 Albumin [Mass/Vol] 3.7 g/dL Normal 3.4-5.0 [facility] Comment on above: Performed By: #### C MP, T7, TSH, LIPID #### [facility] [address] [place] [address] Dr. Reuben Morrison Albumin/Globulin [Mass ratio] 1.3 {ratio} Normal [facility] Comment on above: Performed By: #### C MP, T7, TSH, LIPID #### [facility] [address] [place] [address] Dr. Reuben Morrison ALP [Catalytic activity/Vol] 53 U/L Normal 46-116 [facility] Comment on above: Performed By: #### C MP, T7, TSH, LIPID #### [facility] [address] [place] [address] Dr. Reuben Morrison ALT [Catalytic activity/Vol] 37 U/L Normal 16-63 [facility] Comment on above: Performed By: #### C MP, T7, TSH, LIPID #### [facility] [address] [place] [address] Dr. Reuben Morrison Anion gap [Moles/Vol] 11.0 mmol/L Normal [facility] Comment on above: Performed By: #### C MP, T7, TSH, LIPID #### [facility] [address] [place] [address] Dr. Reuben Morrison AST [Catalytic activity/Vol] 28 U/L Normal 15-37 [facility] Comment on above: Performed By: #### C MP, T7, TSH, LIPID #### [facility] [address] [place] [address] Dr. Reuben Morrison Bilirubin [Mass/Vol] 0.9 mg/dL Normal 0.2-1.0 [facility] Comment on above: Performed By: #### C MP, T7, TSH, LIPID #### [facility] [address] [place] [address] Dr. Reuben Morrison Calcium [Mass/Vol] 8.9 mg/dL Normal 8.5-10.1 [facility] Comment on above: Performed By: #### C MP, T7, TSH, LIPID #### [facility] [address] [address] [address] Reuben Morrison Chloride [Moles/Vol] 106 mmol/L Normal 98-107 [facility] Comment on above: Performed By: #### C MP, T7, TSH, LIPID #### [facility] [address] [address] [address] Reuben Morrison CO2 [Moles/Vol] 28.2 mmol/L Normal 21.0-32.0 [facility] Comment on above: Performed By: #### C MP, T7, TSH, LIPID #### [facility] [address] [address] [address] Reuben Morrison Creatinine [Mass/Vol] 1.55 mg/dL Critically high 0.70-1.30 [facility] Comment on above: Performed By: #### C MP, T7, TSH, LIPID #### [facility] [address] [address] [address] Reuben Morrison EGFR-AF BELGIAN 55 mL/min/1.73m2 Critically low >=60 [facility] Comment on above: Performed By: #### C MP, T7, TSH, LIPID #### [facility] [address] [place] [address] Dr. Reuben Morrison EGFR-NON AF BELGIAN 46 mL/min/1.73m2 Critically low >=60 [facility] Comment on above: Performed By: #### C MP, T7, TSH, LIPID #### [facility] [address] [address] [address] Reuben Morrison Globulin (S) [Mass/Vol] 2.9 g/dL Normal [facility] Comment on above: Performed By: #### C MP, T7, TSH, LIPID #### [facility] [address] [address] [address] Reuben Morrison Glucose [Mass/Vol] 88 mg/dL Normal 74-106 [facility] Comment on above: Performed By: #### C MP, T7, TSH, LIPID #### [facility] [address] [place] [address] Dr. Reuben Morrison Potassium [Moles/Vol] 4.2 mmol/L Normal 3.5-5.1 [facility] Comment on above: Performed By: #### C MP, T7, TSH, LIPID #### [facility] [address] [place] [address] Dr. Reuben Morrison Protein [Mass/Vol] 6.6 g/dL Normal 6.4-8.2 [facility] Comment on above: Performed By: #### C MP, T7, TSH, LIPID #### [facility] [address] [place] [address] Dr. Reuben Morrison Sodium [Moles/Vol] 141 mmol/L Normal 136-145 [facility] Comment on above: Performed By: #### C MP, T7, TSH, LIPID #### [facility] [address] [place] [address] Dr. Reuben Morrison Urea nitrogen [Mass/Vol] 13.0 mg/dL Normal 7.0-18.0 [facility] Comment on above: Performed By: #### C MP, T7, TSH, LIPID #### [facility] [address] [place] [address] Dr. Reuben Morrison Urea nitrogen/Creatinine [Mass ratio] 8.4 mg/mg Normal [facility] Comment on above: Performed By: #### C MP, T7, TSH, LIPID #### [facility] [address] [place] [address] Dr. Reuben Morrison TSHon 03-07-2022 TSH 0.091 uIU/mL Critically low 0.358-3.740 [facility] Comment on above: Performed By: #### C MP, T7, TSH, LIPID #### [facility] [address] [place] [address] Dr. Reuben Morrison TSH RANGE SEE BELOW Normal [facility] Comment on above: Result Comment: <0.3 4 UIU/ml HYPERTHYROID 0.34-5.60 UIU/ml EUTHYROID >5.60 UIU/ml HYPOTHYROID Performed By: #### C MP, T7, TSH, LIPID #### [facility] [address] [address] [address] Reuben Morrison VITAMIN B12on 03-07-2022 Cobalamin (Vitamin B12) [Mass/Vol] 3126.0 pg/mL Critically high 193.0-986.0 [facility] Comment on above: Performed By: #### T ESTTOT #### [facility] [address] [address] [address] Reuben Morrison VITAMIN D 25 OHon 03-07-2022 VIT D 25-OH 90.4 ng/mL Normal [facility] Comment on above: Performed By: #### T ESTTOT #### [facility] [address] [address] [address] Reuben Morrison VIT D RANGES SEE BELOW Normal [facility] Comment on above: Result Comment: <20 ng/mL Vit D deficient 20 - <30 ng/mL Vit D insufficient 30 - 100 ng/mL Vit D sufficient >100 ng/mL Potential Toxicity Performed By: #### T ESTTOT #### [facility] [address] [address] [address] Reuben Morrison XR SHOULDER RICHARD 2V [...] 170.2 cm Osmin Anthony MD Work Phone: [facility] 02-18-2025 10:20-0400 Body mass index (BMI) [Ratio] 29.19 kg/m2 Osmin Anthony MD Work Phone: [facility] 02-18-2025 10:20-0400 Body weight 84.54 kg Osmin Anthony MD Work Phone: [facility] 10-21-2024 10:46-0500 Body temperature 97.52 [degF] Vianey MENDOZA [facility] 10-21-2024 10:46-0500 Diastolic blood pressure 84 mm[Hg] Vianey MENDOZA [facility] 10-21-2024 10:46-0500 Systolic blood pressure 128 mm[Hg] Vianey MENDOZA [facility] 10-08-2024 14:40-0500 Body height 170.2 cm Osmin Anthony MD Work Phone: [facility] 10-08-2024 14:40-0500 Body mass index (BMI) [Ratio] 29.13 kg/m2 Osmin Anthony MD Work Phone: [facility] 10-08-2024 14:40-0500 Body weight 84.37 kg Osmin Anthony MD Work Phone: [facility] 08-13-2024 13:46-0500 Blood Pressure Location Shawanda MEJIA [facility] 08-13-2024 13:46-0500 Diastolic blood pressure 82 mm[Hg] Shawanda MEJIA [facility] 08-13-2024 13:46-0500 Heart rate 72 /min Shawanda MEJIA [facility] 08-13-2024 13:46-0500 Respiratory rate 16 /min Shawanda MEJIA [facility] 08-13-2024 13:46-0500 Systolic blood pressure 122 mm[Hg] Shawanda MEJIA [facility] 07-17-2024 14:59-0400 Body height 168.9 cm Sage Russel DO Work Phone: [facility] 07-17-2024 14:59-0400 Body mass index (BMI) [Ratio] 30.02 kg/m2 Sage Russel DO Work Phone: [facility] 07-17-2024 14:59-0400 Body weight 85.64 kg Sage Russel DO Work Phone: [facility] 07-17-2024 14:59-0400 Diastolic blood pressure 90 mm[Hg] Sage Russel DO Work Phone: [facility] 07-17-2024 14:59-0400 Heart rate 68 /min Sage Russel DO Work Phone: [facility] 07-17-2024 14:59-0400 SaO2% (BldA) [Mass fraction] 98 % Sage Russel DO Work Phone: [facility] 07-17-2024 14:59-0400 Systolic blood pressure 134 mm[Hg] Sage Russel DO Work Phone: [facility] 06-12-2024 11:04-0400 Body height 168.9 cm Román Hoang MD Work Phone: [facility] 06-12-2024 11:04-0400 Body mass index (BMI) [Ratio] 29.89 kg/m2 Román Hoang MD Work Phone: [facility] 06-12-2024 11:04-0400 Body weight 85.28 kg Román Hoang MD Work Phone: [facility] 06-12-2024 11:04-0400 Diastolic blood pressure 78 mm[Hg] Román Hoang MD Work Phone: [facility] 06-12-2024 11:04-0400 Heart rate 68 /min Román Hoang MD Work Phone: [facility] 06-12-2024 11:04-0400 Respiratory rate 16 /min Román Hoang MD Work Phone: [facility] 06-12-2024 11:04-0400 Systolic blood pressure 130 mm[Hg] Román Hoang MD Work Phone: [facility] 06-11-2024 11:20-0400 Body height 170.2 cm Osmin Anthony MD Work Phone: [facility] 06-11-2024 11:20-0400 Body mass index (BMI) [Ratio] 28.7 kg/m2 Osmin Anthony MD Work Phone: [facility] 06-11-2024 11:20-0400 Body weight 83.12 kg Osmin Anthony MD Work Phone: [facility] 06-06-2024 13:55-0400 Body height 168.91 cm MD Ilda Hendrickson Work Phone: [facility] 06-06-2024 13:55-0400 Body mass index (BMI) [Ratio] 29.4 kg/m2 MD Ilda Hendrickson Work Phone: [facility] 06-06-2024 13:55-0400 Body temperature 98.8 [degF] MD Ilda Hendrickson Work Phone: [facility] 06-06-2024 13:55-0400 Body weight 83.97 kg MD Ilda Hendrickson Work Phone: [facility] 06-06-2024 13:55-0400 Diastolic blood pressure 88 mm[Hg] MD Ilda Hendrickson Work Phone: [facility] 06-06-2024 13:55-0400 Heart rate 61 /min MD Ilda Hendrickson Work Phone: [facility] 06-06-2024 13:55-0400 Respiratory rate 16 /min MD Ilda Hendrickson Work Phone: [facility] 06-06-2024 13:55-0400 SaO2% (BldA) [Mass fraction] 98 % MD Ilda Hendrickson Work Phone: [facility] 06-06-2024 13:55-0400 Systolic blood pressure 139 mm[Hg] MD Ilda Hendrickson Work Phone: [facility] 05-07-2024 15:01-0400 Blood Pressure Location Shawanda MEJIA [facility] 05-07-2024 15:01-0400 Diastolic blood pressure 84 mm[Hg] Shawanda MEJIA [facility] 05-07-2024 15:01-0400 Heart rate 68 /min Shawanda ROBERTO [facility] 05-07-2024 15:01-0400 Respiratory rate 16 /min Shawanda ROBERTO [facility] 05-07-2024 15:01-0400 Systolic blood pressure 118 mm[Hg] Shawanda MEJIA [facility] 11-02-2023 10:48-0500 Body height 170.2 cm Osmin Anthony MD Work Phone: [facility] 11-02-2023 10:48-0500 Body mass index (BMI) [Ratio] 29.29 kg/m2 Osmin Anthony MD Work Phone: [facility] 11-02-2023 10:48-0500 Body weight 84.82 kg Osmin Anthony MD Work Phone: [facility] 10-16-2023 13:03-0500 Blood Pressure Location Vianey MENDOZA [facility] 10-16-2023 13:03-0500 Diastolic blood pressure 82 mm[Hg] Vianey MENDOZA [facility] 10-16-2023 13:03-0500 Heart rate 75 /min Vianey MENDOZA [facility] 10-16-2023 13:03-0500 Respiratory rate 16 /min Vianey MENDOZA [facility] 10-16-2023 13:03-0500 Systolic blood pressure 131 mm[Hg] Vianey MENDOZA [facility] 07-27-2023 10:00-0400 Body height 168.91 cm Sandoval Antonia Other [employer] Other 07-27-2023 10:00-0400 Body mass index (BMI) [Ratio] 28.55 kg/m2 Sandoval Antonia Other [employer] Other 07-27-2023 10:00-0400 Body temperature 96.2 [degF] Sandoval Antonia Other [employer] Other 07-27-2023 10:00-0400 Body weight 81.47 kg Sandoval Antonia Other [employer] Other 07-27-2023 10:00-0400 Diastolic blood pressure 87 mm[Hg] Sandoval Antonia Other [employer] Other 07-27-2023 10:00-0400 Respiratory rate 16 /min Sandoval Antonia Other [employer] Other 07-27-2023 10:00-0400 SaO2% (BldA) [Mass fraction] 94 % Sandoval Antonia Other [employer] Other 07-27-2023 10:00-0400 Systolic blood pressure 130 mm[Hg] Sandoval Antonia Other [employer] Other 06-12-2023 12:25-0400 Blood Pressure Location Vianey MENDOZA [facility] 06-12-2023 12:25-0400 Diastolic blood pressure 74 mm[Hg] Vianey MENDOZA [facility] 06-12-2023 12:25-0400 Heart rate 68 /min Vianey MENDOZA [facility] 06-12-2023 12:25-0400 Respiratory rate 16 /min Vianey MENDOZA [facility] 06-12-2023 12:25-0400 Systolic blood pressure 128 mm[Hg] Vianey MENDOZA [facility] 04-26-2023 11:15-0400 Body height 168.4 cm Shawanda Hernandez PA-C Work Phone: [facility] 04-26-2023 11:15-0400 Body temperature 98.01 [degF] Shawanda Hernandez PA-C Work Phone: [facility] 04-26-2023 11:15-0400 Body weight 86.95 kg Shawanda Hernandez PA-C Work Phone: [facility] 04-26-2023 11:15-0400 Diastolic blood pressure 94 mm[Hg] Shawanda Hernandez PA-C Work Phone: [facility] 04-26-2023 11:15-0400 Heart rate 74 /min Shawanda Hernandez PA-C Work Phone: [facility] 04-26-2023 11:15-0400 SaO2% (BldA) [Mass fraction] 97 % Shawanda Hernandez PA-C Work Phone: [facility] 04-26-2023 11:15-0400 Systolic blood pressure 147 mm[Hg] Shawanda Hernandez PA-C Work Phone: [facility] 12-02-2022 08:12-0500 Blood Pressure Location Vianey MENDOZA [facility] 12-02-2022 08:12-0500 Diastolic blood pressure 84 mm[Hg] Vianey MENDOZA [facility] 12-02-2022 08:12-0500 Heart rate 70 /min Vianey MENDOZA [facility] 12-02-2022 08:12-0500 Respiratory rate 16 /min Vianey MENDOZA [facility] 12-02-2022 08:12-0500 Systolic blood pressure 137 mm[Hg] Vianey MENDOZA [facility] 07-20-2022 14:11-0400 Body mass index (BMI) [Ratio] 28.98 kg/m2 Jovita Virk MD Work Phone: [facility] 07-20-2022 14:11-0400 Body temperature 98.01 [degF] Jovita Virk MD Work Phone: [facility] 07-20-2022 14:11-0400 Body weight 83.92 kg Jovita Virk MD Work Phone: [facility] 10-26-2022 14:11-0400 Diastolic blood pressure 86 mm[Hg] Jovita Virk MD Work Phone: [employer] 07-20-2022 14:11-0400 Heart rate 98 /min [facility] 07-20-2022 14:11-0400 Respiratory rate 14 /min [facility] 07-20-2022 14:11-0400 SaO2% (BldA) [Mass fraction] 100 % Jovita Virk MD Work Phone: [employer] 07-20-2022 14:11-0400 Systolic blood pressure 138 mm[Hg] [facility] En[facility] Encounter Date Encounter Type Care Provider Facility Start: 10-27-2025 ambulatory Vianey MENDOZA [facility] ty:[facility] Start: 02-18-2025 End: 02-18-2025 ambulatory [facility] Start: 02-18-2025 End: 02-18-2025 Office outpatient visit 25 minutes Osmin Anthony MD Work Phone: [facility] Comment on above: Primary osteoarthrit is of right knee (Primary Dx) Start: 01-21-2025 End: 01-21-2025 ambulatory [facility] Start: 10-21-2024 End: 10-21-2024 ambulatory Vianey MENDOZA Facility:[facility] Start: 10-21-2024 End: 10-21-2024 Patient encounter procedure Vianey MENDOZA [facility] Start: 10-08-2024 End: 10-08-2024 ambulatory [facility] Start: 10-08-2024 End: 10-08-2024 Patient encounter procedure Osmin Anthony MD Work Phone: [facility] Comment on above: Primary osteoarthrit is of right knee (Primary Dx) Start: 08-13-2024 End: 08-13-2024 ambulatory [facility] Start: 08-13-2024 End: 08-13-2024 Patient encounter procedure Shawanda Crawford ROBERTO [facility] Start: 07-17-2024 End: 07-17-2024 ambulatory SAGE CAM Not Available Start: 07-17-2024 End: 07-17-2024 Office outpatient visit 25 minutes Sage Cam DO Work Phone: [facility] [address] Comment on above: NANCY (obstructive sle ep apnea) (Primary Dx); Hypersomnia; Snoring; Atrial fibrillation, unspecified type (CMS/HCC); Sleep deprivation Start: 07-17-2024 End: 07-17-2024 Bamboo flowsheet Sage Cam DO Work Phone: [facility] [address] Start: 07-17-2024 End: 07-17-2024 Bamboo flowsheet Sage Cam DO Work Phone: [facility] [address] Start: 07-16-2024 End: 07-16-2024 ambulatory [facility] Start: 06-12-2024 End: 06-12-2024 Bamboo flowsheet Román Hoang MD Work Phone: [facility] Start: 06-12-2024 End: 06-12-2024 Bamboo flowsheet Román Hoang MD Work Phone: [facility] Start: 06-12-2024 End: 06-12-2024 ambulatory ROMÁN HOANG Not Available Start: 06-12-2024 End: 06-12-2024 Office outpatient visit 25 minutes Román Hoang MD Work Phone: [facility] Comment on above: Sarah's disease (CMS/HCC) (Primary Dx) Start: 06-11-2024 End: 06-11-2024 ambulatory OSMIN ANTHONY [facility] Start: 06-11-2024 End: 06-11-2024 Patient encounter procedure Osmin Anthony MD Work Phone: [facility] Comment on above: Primary osteoarthrit is of right knee (Primary Dx) Start: 06-06-2024 End: 06-06-2024 ambulatory MD Ilda Hendrickson Work Phone: [facility] Work Phone: Start: 06-06-2024 End: 06-06-2024 Patient encounter procedure MD Ilda Hendrickson Work Phone: [facility] Work Phone: Start: 06-03-2024 Non-patient / Non-visit MD Ravi Hendrickson Work Phone: [facility] Work Phone: Start: 05-29-2024 End: 05-29-2024 ambulatory Shawanda R NILL Facility:CD:[id number] Start: 05-07-2024 End: 05-07-2024 ambulatory Shawanda R NILL Facility:[facility] Start: 05-07-2024 End: 05-07-2024 Patient encounter procedure Shawanda R NILL [facility] Start: 05-06-2024 ambulatory Shawanda NILL Facility:[facility] Start: 04-05-2024 End: 04-05-2024 ambulatory MD Ilda Hendrickson Work Phone: [facility] Work Phone: Start: 04-05-2024 End: 04-05-2024 Departed Referred MD Ilda Hendrickson Work Phone: [facility] Start: 12-03-2023 Letter [facility] Work Phone: Start: 11-27-2023 ambulatory Vianey Lewisi ty:[facility] Start: 11-02-2023 End: 11-02-2023 Patient encounter procedure Osmin Anthony MD Work Phone: [facility] Comment on above: Primary osteoarthrit is of right knee (Primary Dx) Start: 10-16-2023 End: 10-16-2023 Patient encounter procedure Vianey MENDOZA [facility] Start: 07-27-2023 End: 07-27-2023 ambulatory Sandoval Antonia Other [employer] Other Start: 07-27-2023 Office outpatient ne w 45 minutes Sandoval Antonia [facility] Start: 06-12-2023 End: 06-12-2023 Patient encounter procedure Vianey MENDOZA [facility] Start: 05-03-2023 End: 05-03-2023 Patient encounter procedure Taylor Joshua [facility] Start: 04-26-2023 End: 04-26-2023 ambulatory ILDA HENDRICKSON Facility:[facility] Start: 04-26-2023 End: 04-26-2023 Patient encounter procedure Shawanda Hernandez PA-C Work Phone: [facility] Comment on above: Height loss (Primary Dx) Start: 03-08-2023 End: 03-08-2023 Patient encounter procedure KYLE RODRIGUEZ [facility] Start: 01-20-2023 End: 01-21-[address] ILDA HENDRICKSON . Facility: Start: 12-02-2022 End: 12-02-2022 Patient encounter procedure Vianey MENDOZA [facility] Start: 11-18-2022 End: 11-19-[address] ILDA HENDRICKSON . Facility:[facility] Start: 11-08-2022 End: 11-09-2022 ambulatory TAYLOR M SANDITania . Facility:[facility] Start: 11-01-2022 End: 11-01-2022 Patient encounter procedure KYLE RODRIGUEZ [facility] Start: 10-05-2022 End: 10-05-2022 Patient encounter procedure KYLE RODRIGUEZ [facility] Start: 09-07-2022 End: 09-07-2022 Patient encounter procedure Taylor Joshua [facility] Start: 08-28-2022 Letter encounter Jovita Virk MD Work Phone: [employer] Start: 08-17-2022 End: 08-17-2022 Patient encounter procedure Taylor Joshua [facility] Start: 08-12-2022 Telephone encounter Aarti vences MA, [facility], RADIO STATION ENGINEER Work Phone: [facility] Start: 07-21-2022 End: 07-22-[address] ILDA HENDRICKSON . 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); Cognitive changes; Body mass index (BMI) 28.0-28.9, adult Start: 07-11-2022 End: 07-11-2022 Patient encounter procedure iVaney MENDOZA [facility] Start: 06-15-2022 End: 06-16-[address] SAEED Flores Facility:[facility] Start: 06-13-2022 End: 06-13-2022 Patient encounter procedure Vianey MENDOZA [facility] Start: 04-27-2022 End: 04-28-[address] SAEED Flores Facility:[facility] Start: 04-07-2022 Refill Jovita Virk MD Work Phone: [facility] Comment on above: Refill Start: 03-21-2022 [...] encounter procedure Saeed Cantu Jr. [facility] Start: 02-01-2022 End: 02-01-2022 Patient encounter procedure Saeed aCntu Jr. [facility] Start: 01-04-2022 End: 01-04-2022 Patient encounter procedure Saeed Cantu Jr. [facility] Procedures Date Procedure Procedure Detail Performing [...] above: Performed By: #### T ESTTOT #### [facility] [address] [place] [address] Dr. Reuben Morrison Start: 03-07-[address] FABIÁN HENDRICKSON . Comment on above: Performed By: #### I BLAIR, PSASC, VITB12, VITAD #### [facility] [address] [place] [address] Dr. Reuben Morrison Start: 12-21-2016 Cystourethroscopy wi [...] DTaP,Tdap and Td Vaccines (2 - Tdap) [facility] Start: 09-04-2031 Urine microalbumin profile DTAP,TDAP,TD (2 - Tdap) [facility] Start: 06-15-2027 PROSTATE CANCER SCREENING DISCUSSION PROSTATE CANCER SCREENING DISCUSSION [facility] Start: 02-18-2026 Adult BMI Screening Adult BMI Screening [facility] Start: 02-18-2026 Tobacco Screening Tobacco Screening [facility] Start: 11-30-2025 Lipid panel Cholesterol [facility] Start: 07-15-2025 End: 07-15-2025 Patient encounter procedure 07/15/2025 3:00 PM EDT [facility] [address] [place] [phone] Sage Cam DO [address] [place] [address] [address] Start: 06-11-2025 Adult BMI Screening Adult BMI Screening [facility] Start: 06-11-2025 Tobacco Screening Tobacco Screening [facility] Start: 06-11-2025 End: 06-11-2025 Patient encounter procedure 06/11/2025 10:30 AM EDT Office Visit [facility] [address] [place] [phone] Román Hoang MD [address] [place] [address] [facility] Start: 05-26-2025 Influenza vaccination Influenza Vaccine [facility] Start: 02-18-2025 End: 02-18-2026 XR Knee - right 4 Views [facility] Work Phone: Comment on above: Expected: 02/18/2025, Expires: Start: 11-02-2024 Adult BMI Screening Adult BMI Screening [facility] Start: 11-02-2024 Tobacco Screening Tobacco Screening [facility] Start: 07-17-2024 End: 07-17-2024 Patient encounter procedure 07/17/2024 2:30 PM EDT Office Visit [facility] [address] [place] [phone] Sage Cam DO [address] [place], [place] [id number] [facility] [address] Start: 06-12-2024 End: 06-12-2025 Thyrotropin [Units/volume] in Serum or Plasma TSH Lab Routine Sarah's disease (CMS/HCC) Expected: 06/12/2024 (Approximate), Expires: 06/12/2025 [facility] Comment on above: Expected: 06/12/2024 (Approximate), Expi res: 06/12/2025 Start: 06-12-2024 End: 06-12-2025 Thyroxine (T4) free [Mass/volume] in Serum or Plasma T4, free Lab Routine Sarah's disease (CMS/HCC) Expected: 06/12/2024 (Approximate), Expires: 06/12/2025 [facility] Comment on above: Expected: 06/12/2024 (Approximate), Expi res: 06/12/2025 Start: 06-12-2024 End: 06-12-2025 Triiodothyronine (T3) Free [Mass/volume] in Serum or Plasma T3, free Lab Routine Sarah's disease (CMS/HCC) Expected: 06/12/2024 (Approximate), Expires: 06/12/2025 [facility] Work Phone: Comment on above: Expected: 06/12/2024 (Approximate), Expi res: 06/12/2025 Start: 05-26-2024 COVID-19 Vaccine ( season) COVID-19 Vaccine ( season) [facility] Start: 05-26-2024 COVID-19 Vaccine ( season) COVID-19 Vaccine ( season) [facility] Start: 05-26-2024 Influenza vaccination [facility] Start: 02-22-2024 Fall Risk Screening Fall Risk Screening [facility] Start: 02-22-2024 Pneumococcal Vaccine: 65+ Years (1 of 1 - PCV) Pneumococcal Vaccine: 65+ Years (1 of 1 - PCV) [facility] Start: 05-26-2023 COVID-19 Vaccine ( season) COVID-19 Vaccine ( season) [facility] Start: 05-26-2023 Influenza vaccination INFLUENZA (#1) [facility] Start: 09-25-2022 DEPRESSION ASSESSMENT DEPRESSION ASSESSMENT [facility] Start: 09-20-2022 COVID-19 Vaccine (5 - Booster for Pfizer series) COVID-19 Vaccine (5 - Booster for Pfizer series) [facility] Start: 09-20-2022 COVID-19 VACCINE (5 - Pfizer series) COVID-19 VACCINE (5 - Pfizer series) [facility] Start: 07-19-2022 End: 07-19-2022 Patient encounter procedure 07/19/2022 Office Visit Physical Medicine & Rehab/PM&R Jovita Virk MD [address] [place] [phone] [facility] Start: 06-25-2022 Influenza vaccination Influenza Vaccine (#1) [facility] Start: 05-31-2022 Shingles (RZV) Vaccine (2 of 2) Shingles (RZV) Vaccine (2 of 2) [facility] Start: 01-19-2022 COVID-19 Vaccine (4 - Booster for Pfizer series) COVID-19 Vaccine (4 - Booster for Pfizer series) [facility] Start: 11-15-2021 COVID-19 Vaccine (4 - Booster for Pfizer series) COVID-19 Vaccine (4 - Booster for Pfizer series) [facility] Start: 09-05-2021 Lipid panel Cholesterol [facility] Start: 12-04-2020 DIABETES SCREEN DIABETES SCREEN [facility] Start: 2019 Hepatitis B (HBV) Vaccine (optional start 60+ years) Hepatitis B (HBV) Vaccine (optional start 60+ years) [facility] Start: 2019 RSV vaccine (optional 60+ years) RSV vaccine (optional 60+ years) [facility] Start: 11-23-2014 Annual wellness visit Annual Wellness Visit (G0438) [facility] Start: 06-10-2012 Thyroid stimulating hormone measurement TSH [facility] Start: 2009 Measurement of occult blood in single stool specimen FIT [facility] Start: 2009 Screening for malignant neoplasm of colon CRC Screening [facility] Start: 2009 Shingles (RZV) Vaccine (1 of 2) Shingles (RZV) Vaccine (1 of 2) [facility] Start: 02-22-2004 COLOGUARD (FIT-DNA) COLOGUARD (FIT-DNA) [facility] Start: 02-22-2004 Colonoscopy COLONOSCOPY [facility] Start: 02-22-2004 COLORECTAL CANCER SCREENING COLORECTAL CANCER SCREENING [facility] Start: 02-22-[address] COLONOGRAPHY [facility] Start: 02-22-2004 FECAL OCCULT BLOOD FECAL OCCULT BLOOD [facility] Start: 02-22-2004 Screening for malignant neoplasm of colon [facility] Start: 02-22-2004 SIGMOIDOSCOPY SIGMOIDOSCOPY [facility] Start: 1994 LIPID SCREEN LIPID SCREEN [facility] Start: 1978 Hepatitis A (HAV) Vaccine (optional start 19+ years) Hepatitis A (HAV) Vaccine (optional start 19+ years) [facility] Start: 1977 Adult BMI Follow Up Plan Adult BMI Follow Up Plan [facility] Start: 1977 ANNUAL PCP TEAM CHRONIC DISEASE VISIT ANNUAL PCP TEAM CHRONIC DISEASE VISIT [facility] Start: 1977 Hepatitis C screening Hepatitis C Antibody [facility] Start: 1977 HEPATITIS C SCREENING HEPATITIS C SCREENING [facility] Start: 1977 HIV SCREENING HIV SCREENING [facility] Start: 1977 SPIROMETRY SPIROMETRY [facility] Start: 1977 Tetanus + diphtheria + acellular pertussis vaccine (product) Tdap Booster [facility] Start: 1974 HIV screening HIV Test [facility] Start: 1971 Depression Screening Depression Screening [facility] Start: 1965 PNEUMOCOCCAL (1 - PCV) PNEUMOCOCCAL (1 - PCV) [facility] Start: 1959 Medicare Annual Wellness Visit Medicare Annual Wellness Visit [facility] Start: 1959 Screening for malignant neoplasm of colon [facility] Arthrp kne condyle&p latu medial&lat compartments ROBOTIC REPLACEMENT TOTAL JOINT KNEE Primary osteoarthritis of right knee FLOWER SURGERY Immunizations Immunization Date Immunization Notes Care Provider Fa [facility] 07-30-2024 influenza virus vaccine, unspecified formulation Osmin Anthony MD Work Phone: [facility] 08-10-2023 influenza virus vaccine, unspecified formulation Shawanda MEJIA [facility] 08-10-2023 Influenza, injectable, Madin Hanna Canine Kidney, preservative free, quadrivalent [facility] Work Phone: 08-29-2022 zoster vaccine recombinant Shawanda Hernandez PA-C Work Phone: [facility] 07-26-2022 Moderna Monovalent (12+ yrs) COVID-19 vaccine, mRNA, spike protein, LNP, PF, 100 mcg/0.5 mL (VSO=290) [facility] 07-25-2022 Influenza, injectable, Madin [place] Canine Kidney, preservative free, quadrivalent Jovita Virk MD Work Phone: [facility] 04-05-2022 zoster vaccine recombinant Jovita Virk MD Work Phone: [facility] 09-20-2021 SARS-CoV-2 (COVID-19 ) mRNA BNT-162b2 vax Shawanda MEJIA [facility] 09-04-2021 diphtheria, tetanus toxoids and pertussis vaccine Jovita Virk MD Work Phone: [facility] 08-25-2021 SARS-CoV-2 (COVID-19 ) Ad26 vaccine, recombinant Saeed Cantu Jr. [facility] 08-10-2021 influenza, injectable, quadrivalent, preservative free Jovita Virk MD Work Phone: [facility] 08-10-2021 influenza virus vaccine, unspecified formulation Jovita Virk MD Work Phone: [facility] 06-25-2021 influenza virus vaccine, unspecified formulation Saeed Cantu Jr. [facility] 12-22-2020 Pfizer (12+ yrs) SARS-COV-2 (COVID-19) vaccine, mRNA, spike protein, LNP, pres. free, 30 mcg/0.3mL dose (CBY=483) Jovita Virk MD Work Phone: [facility] 11-30-2020 Pfizer (12+ yrs) SARS-COV-2 (COVID-19) vaccine, mRNA, spike protein, LNP, pres. free, 30 mcg/0.3mL dose (MFW=972) Jovita Virk MD Work Phone: [facility] 08-25-2020 influenza virus vaccine, unspecified formulation Saeed Cantu Jr. [facility] 06-30-2020 influenza, injectable, quadrivalent, preservative free Jovita Virk MD Work Phone: [facility] 12-25-2019 SARS-CoV-2 (COVID-19 ) mRNA BNT-162b2 vax Saeed Cantu Jr. [facility] 11-24-2019 SARS-CoV-2 (COVID-19 ) mRNA BNT-162b2 vax Saeed Pepe Brunson [facility] Payers Date Payer Category Payer Self-pay 2023 Unknown [id number] 2022 Blue Cross Blue Shield BCBS [id number] 2022 Blue Cross Blue [facility] - PPO [id number] 2022 Unknown [id number] 2017 Unknown [id number] [id number] 2017 Unknown 2042 2013 Medicare [id number] [id number] 1959 Medicare [id number] 1959 Self-pay [id number] 1959 Unknown [id number] 2.16.840.1.332455.3.579.2. 593 1959 Unknown [id number] 2.16.840.1.326074.3.579.2. 593 1959 Unknown [id number] 2.16.840.1.213979.3.579.2. 593 1959 Unknown [id number] 2.16.840.1.665328.3.579.2. 593 1959 Unknown [id number] 2.16.840.1.507828.3.579.2. 593 1959 Unknown [id number] 2.16.840.1.841560.3.579.2. 593 1959 Unknown [id number] 2.16.840.1.165938.3.579.2. 593 1959 Unknown [id number] 2.16.840.1.795373.3.579.2. 593 1959 Unknown [id number] 2.16.840.1.642020.3.579.2. 593 1959 Unknown [id number] 2.16.840.1.206699.3.579.2. 593 1959 Unknown [id number] 2.16.840.1.272750.3.579.2. 593 1959 Unknown [id number] 2.16.840.1.883921.3.579.2. 1259 1959 Unknown [id number] 2.16.840.1.021937.3.579.2. 1259 1959 Unknown [id number] 2.16.840.1.714750.3.579.2. 727 1959 Unknown [id number] 2.16.840.1.908403.3.579.2. 727 1959 Unknown [id number] 2.16.840.1.531317.3.579.2. 727 1959 Unknown [id number] 2.16.840.1.242725.3.579.2. 727 1959 Unknown [id number] 2.16.840.1.298707.3.579.2. 727 1959 Unknown [id number] 2.16.840.1.213199.3.579.2. 727 1959 Unknown [id number] 2.16.840.1.138875.3.579.2. 1286 1959 Unknown [id number] 2.16.840.1.415627.3.579.2. 1286 1959 Unknown [id number] 2.16.840.1.060314.3.579.2. 1286 1959 Unknown [id number] 2.16.840.1.581750.3.579.2. [address] [facility] [id number] Unknown [id number] 2.16.840.1.639171.3.579.2. 593 Unknown [employer] [id number] Unknown [id number] 2.16.840.1.666091.3.579.2. 531 Social History Date Type Detail Facility Start: 10-05-2021 End: 10-21-2024 Tobacco smoking status Never smoked tobacco (finding) [facility] Tobacco smoking status Never [facility] Start: 11-05-2020 End: 04-26-2023 Sex Assigned At Male [facility] Start: 08-24-2011 End: 07-17-2024 Tobacco use and exposure Smokeless tobacco non-user [facility] Start: 12-07-2017 End: 08-12-2022 Alcohol intake Not Asked [facility] Start: 1960 Sex Assigned At Not on file [facility] Start: 08-12-2022 History SDOH Social Connections Phone 1 [facility] Start: 08-12-2022 History SDOH Social Connections Get Together 2 [facility] Start: 08-12-2022 History SDOH Social Connections Taoism 98 [facility] Start: 08-12-2022 Education 12 [facility] Start: 04-26-2023 End: 02-18-2025 Alcohol intake Current drinker of alcohol (finding) [facility] Start: 11-05-2020 End: 04-26-2023 History of Social function [facility] Start: 12-04-2017 Alcohol Comment social [facility] Start: 1960 Sex Assigned At Male F [facility] How often to you hav e a drink containing alcohol? Monthly or less [facility] How many standard drinks containing alcohol do you have on a typical day? 1 or 2 [facility] How often do you hav e 6 or more drinks on 1 occasion? Weekly [facility] Start: 04-30-2015 Sex Male (finding) [facility] Start: 08-23-2021 Gender identity Identifies as male gender (finding) [facility] Medical Equipment Procedure Code Equipment Code Equipment Origin al Text Equipment Identifier Dates Brng Tib [id number] mm 0d Kn Ant - [id number] Start: 09-05-2016 Cement Bn Palaco s Radpq 40g Rpl [id number] - [id number] Start: 09-05-2016 Ty Tib 79mm Cocr Kn I Beam - [id number] Start: 09-05-2016 Cmpt Fem Kn Lt 7 0mm Cr Cmnt - [id number] Start: 09-05-2016 Cmpt Ptlr Thn 34 mm 3 Pg Kn Ser - [id number] Start: 09-05-2016 Goals Date Patient Goal Desired Activity /State Personal health goal Comment on above: Formatting of this n ote might be different from the original. Evaluation of progress towards goal: Maximize work with PT at discharge to strengthen L knee Functional Status Date Assessment Result Facility 10-21-2024 Functional Status N/A [facility] 08-13-2024 Functional Status N/A [facility] [place] 05-07-2024 Functional Status N/A [facility] [place] 10-16-2023 Functional Status N/A [facility] 06-12-2023 Functional Status N/A [facility] 12-02-2022 Functional Status N/A [facility] Clinical Notes 04-07-2022 to 02-18-2025 Osmin [...] replacement. He has an appointment with his Cd Mixer Helper coming up and I explained that he [...] also discussed. He will meet with the surgical instrument technician to schedule the procedure. Informed consent obtained. His knee was re-injected today. Informed consent obtained. Return in about 3 months (around 05/21/2025) for X-Ray-Right Knee, Post Op. Kathie was advised to contact the office if there are any problems, questions, or concerns. *I have seen and evaluated the patient today with my physician inventory control assistant and agree with all aspects of [...] MyChart?: Immediate [1] [facility]Level [facility] 01-21-2025 Note [facility] Cardiology Clinic Note Chief Complaint: Patient [...] days., Disp: , Rfl: vitamin B complex 844-9-865-2-2 mg/mL injection, Inject into the shoulder, thigh, [...] reversible ischemia. Ejection fraction is normal. Transesophageal Echocardiogram-[facility] Name: VIANEY LACEY Study Date: 07/11/2023 12:24 PM B/P: 104 mmHg/74 mmHg HR: Date of : 1960 Location: [facility] Height: 68 in. Age: 63 year(s) Patient Room : Weight: 189 lb. Gender: Male Patient Status: OutPt BSA: 2 m2 Indication: Atrial Fibrillation, Pre-Cardioversion Examination: JAMIN (Transesophageal Echo / CFI) Image Quality: Good Patient Consent: Informed, written consent was obtained for the procedure s p @ c 3 Exam Location (more content not included)... [facility] 10-21-2024 Hospital Discharge instructions Patient Education 10/21/2024 [...] urethra. Follow these instructions at home: Take jwdy-klk-jcdpalf and prescription medicines only as told by [...] provider. Document Revised: 03/30/2022 Document Reviewed: 03/30/2022 [employer] Patient Education 2023 [employer]. Follow Up Care 10/16/2023 14:07:51 With:HERRERA PRIETO, Vianey Crawford, URL Address: [facility] [address] [place] [address]- [phone] When: Unknown Comments:1 yr w/ PSA and T level [facility] 10-21-2024 Note Patient Education Urology Benign [...] Follow these instructions at home: ??? Take efng-lmn-psrirez and prescription medicines only as told by [...] do not get (more content not included)... [facility] 10-08-2024 History of Present illness Narrative [...] evaluated the patient today with my physician inventory control assistant and agree with all aspects of [...] procedure documentation documented in this encounter [facility] [employer] 08-13-2024 Note General Surgery Offi ce/Clinic Note [...] SARS-CoV-2 (COVID-19) mRNA BNT-162b2 vax 11/2019 Recorded [facility] Comment on above: Result Comment: Elec [...] was counseled on the risks of stroke, FL, and sudden with NANCY, along with the [...] clinic: 2 months documented in this encounter [facility] 07-16-2024 Note [facility] Consult Note [...] Box isolaton+ Substrate modification for discrete mechanistic team driver of AF. 2. Atrial flutter s/p [...] function. He is also recently seen a education associate. They are weaning of amantadine which [...] Year: No Utilities: Not At Risk (11/16/2023) [facility] Utilities Threatened with loss of utilities: No [...] route for 90 days. vitamin B complex 527-4-844-2-2 mg/mL injection Inject into the shoulder, thigh, [...] as directed. (Pa (more content not included)... [facility] 06-12-2024 History of Present illness Narrative Vianey [...] year (around 06/12/2025). documented in this encounter [facility] 06-11-2024 History of Present illness Narrative [...] evaluated the patient today with my physician inventory control assistant and agree with all aspects of [...] via procedure documentation documented in this encounter [employer] 05-07-2024 Note General Surgery Offi ce/Clinic Note [...] prior to procedure. 2. 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 [facility] Comment on above: Result Comment: Aarti [...] evaluated the patient today with my physician inventory control assistant and agree with all aspects of [...] procedure documentation documented in this encounter [facility] 10-16-2023 Hospital Discharge instructions Patient [...] provider. Document Revised: 01/20/2022 Document Reviewed: 01/20/2022 [employer] Patient Education 2022 [employer]. Follow Up Care 07/31/2023 10:30:59 With:HERRERA PRIETO, Vianey Crawford, URL Address: [facility] [address], [place] [address]- When:Within 1 Year(s) Comments:w/AARON [facility] 07-27-2023 Evaluation note Encounter Date Diagnosis [...] advised him to avoid NSAIDs or any iuxj-jsq-vutld er supplements. This deanna with the importance [...] - G47.33) Continue follow-up with the specialist. [employer] Other 10-17-2023 History general Narrative - Reported* Type Description Date Medical History FATIGUE Medical History EDEMA Surgical History CARDIO VERSION 07/11/2023 Surgical History LEFT KNEE REPLACEMENT Surgical History C5-C6 PLATE AND SCREWS Surgical History DOUBLE HERNIA REPAIR Surgical History RIGHT SHOULDER SCOPE Surgical History COLONOSCOPY Surgical History CYSTO SCOPE Hospitalization History SEE ABOVE [employer] Other 09-18-2023 Hospital Discharge instructions Patient Education [...] therapy. Follow these instructions at home: Take hcah-pgm-tjlvkxo and prescription medicines only as told by [...] provider. Document Revised: 05/13/2021 Document Reviewed: 05/13/2021 [employer] Patient Education 2022 [employer]. Follow Up Care 05/04/2023 10:34:04 With:HERRERA PRIETO, Vianey Crawford, URL Address: [facility] [address], [place] [address] [phone] When:Within 6 Month(s) Comments:w/Testosterone Level, PSA and CBC [facility] 08-02-2023 NoteHNO ID: [id number] Author: Shawanda Hernandez PA-C Service: ? 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 Follow these instructions at home: Take pgfb-iqs-acqtcoo and prescription medicines only as told by [...] 09/11/2006 Document Revised: 08/06/2019 Document Reviewed: 10/16/2017 [employer] Patient Education 2020 [employer] Follow Up Care 11/01/2022 10:29:54 With:HERRERA PRIETO, Vianey Crawford, URL Address: [address] [place] [address]- When: Unknown [facility] History of Present illness Narrative* Aarti Kelsey MA, SHANNAN, RADIO STATION ENGINEER - 08/12/2022 12:27 PM EST SPEECH LANGUAGE [...] stated should already be in the system. RADIO STATION ENGINEER was speaking with patient's spouse via phone conversation attempting to troubleshoot and bypass the preliminary questionnaires. However, it was unsuccessful. RADIO STATION ENGINEER sent patient's spouse a direct link to her cell phone to connect to video visit and the same issues arose. Patient was connected to Wifi and using an iPad in home setting. The iPad did not successfully pass the hardware test and patient/patient's spouse were never able to successfully log on. RADIO STATION ENGINEER provided patient/patient's spouse the [facility] Support Team's contact information to reach out for further assistance with log on issues. RADIO STATION ENGINEER will e-mail patient's spouse/patient information regarding memory strategies, etc to help in the home setting (patient's spouse reported patient tends to misplace belongings, such as keys, etc and could use a refresher on the strategies. Patient's spouse stated she will take a look at the strategies and go from there with scheduling anything further. RADIO STATION ENGINEER provided patient/spouse with our direct line to [facility] Therapy dept if she has any further questions/concerns or needs to schedule. Patient left without being seen this date. documented in this [id number] Instructions* Patient Instructions* Jovita Virk MD - 07/20/2022 2:49 PM EDT -Get the sleep apnea addressed -Hold amantadine -Add memantine 5mg daily. -External referral for brain MRI. -Speech therapy for cognitive strategies. -R knee surgery. -F/up 1 year, sooner if needed. 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 Last available brain imaging [id number] showed ventriculomegaly that was deemed not hydrocephalus [...] Risk protocol implemented: No documented in this [id number] Telephone encounter Note* Telephone Encounter - Renetta [...] PCP on file No PCP on file [id number] Miscellaneous Notes* Telephone Encounter - Renetta Boyer [...] Appointments Appointment Date:02/01/2022 10:00:00 AM Scheduled Provider: Location:[facility] Appointment Type:URO Nurse Visit Appointment Date:03/01/2022 09:00:00 AM Scheduled Provider:Saeed Cantu Jr., MD Location:[facility] Appointment Type:URO Office Visit Appointment Date:04/05/2022 11:15:00 AM Scheduled Provider:Saeed Cantu Jr., MD Location:[facility] Appointment Type:URO Office Visit [facility] evaluation + Plan note Future Appointments Appointment Date:03/01/2022 09:00:00 AM Scheduled Provider:Saeed Cantu Jr., MD Location:[facility] Appointment Type:URO Office Visit Appointment Date:04/05/2022 11:15:00 AM Scheduled Provider:Saeed Cantu Jr., MD Location:[facility] Appointment Type:URO Office Visit [facility] evaluation + Plan note Future Appointments Appointment Date:04/05/2022 11:15:00 AM Scheduled Provider:Pepe Brunson MD, Saeed Landa Location:[facility] Appointment Type:URO Office Visit Diagnostic Tests Pending * Testosterone Level Total 03/01/22 [facility] evaluation + Plan note Future Appointments Appointment Date:07/11/2022 10:15:00 AM Scheduled Provider: Location:[facility] Appointment Type:URO Nurse Visit [facility] evaluation + Plan note Future Appointments Appointment Date:09/07/2022 10:00:00 AM Scheduled Provider: Location:[facility] Appointment Type:URO Nurse Visit [facility] evaluation + Plan note Future Appointments Appointment Date:10/05/2022 10:00:00 AM Scheduled Provider: Location:[facility] Appointment Type:URO Nurse Visit [facility] [employer] + Plan note Future Appointments Appointment Date:11/01/2022 10:00:00 AM Scheduled Provider: Location:[facility] Appointment Type:URO Nurse Visit [facility] evaluation + Plan note Future Appointments Appointment Date:11/30/2022 10:00:00 AM Scheduled Provider:Taylor Joshua MD Location:[facility] Appointment Type:URO Office Visit Diagnostic Tests Pending * CBC w/ Auto Diff 11/01/22 * Testosterone Level Total 11/01/22 [facility] evaluation + Plan note Diagnostic Tests Pending * Testosterone Level Total 12/17/22 * Testosterone Level Total 04/25/23 [facility] evaluation + Plan note Future Appointments Appointment Date:04/05/2023 10:00:00 AM Scheduled Provider: Location:[facility] Appointment Type:URO Nurse Visit [facility] evaluation + Plan note Future Appointments Appointment Date:05/30/2023 10:00:00 AM Scheduled Provider: Location:[facility] Appointment Type:URO Nurse Visit [facility] evaluation + Plan note Future Appointments Appointment Date:07/10/2023 09:30:00 AM Scheduled Provider: Location:[facility] Appointment Type:URO Nurse Visit Appointment Date:11/27/2023 09:45:00 AM Scheduled Provider:Vianey MENDOZA MD Location:[facility] Appointment Type:URO Office Visit Diagnostic Tests Pending * Testosterone Level Total 06/12/23 * PSA Total 06/12/23 * CBC w/ Auto Diff 06/12/23 [facility] evaluation + Plan note Future Appointments Appointment Date:10/21/2024 10:15:00 AM Scheduled Provider:Vianey MENDOZA MD Location:[facility] Appointment Type:URO Office Visit Diagnostic Tests Pending * PSA Total 10/16/23 [facility] evaluation + Plan note Future Appointments Appointment Date:10/21/2024 10:15:00 AM Scheduled Provider:Vianey MENDOZA MD Location:[facility] Appointment Type:URO Office Visit [facility] Evaluation + Plan note Future Appointments Appointment Date:10/27/2025 10:30:00 AM Scheduled Provider:Vianey MENDOZA MD Location:[facility] Appointment Type:URO Office Visit Diagnostic Tests Pending * PSA Total 10/21/24 * Testosterone Level Total 10/21/24 [facility] evaluation note* 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 Body mass index (BMI) 28.0-28.9, adult [facility] Height loss- Primary Loss of height [facility] noteNo assessment information [facility]Way[facility] Work Phone: Evaluation note* Diagnosis Onset Date Resolution Status BPH (benign prostatic hyperplasia) acute CKD (chronic kidney disease) stage 2, GFR 60-89 ml/min acute [id number] acute NANCY (obstructive sleep apnea) acute Renal cyst acute [facility] Work Phone: Evaluation note* Diagnosis NANCY (obstructive sleep apnea)- Primary Obstructive sleep apnea (adult) (pediatric) Hypersomnia Hypersomnia, unspecified Snoring Other dyspnea and respiratory abnormality Atrial fibrillation, unspecified type (CMS/HCC) Sleep deprivation Problems related to lack of adequate sleep documented in this encounter [facility] note* 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 documented in this encounter [facility] HealthcareEvaluation note* Diagnosis Primary osteoarthritis of right knee- Primary [facility] Diagnosis Primary osteoarthritis of right knee- Primary documented in [facility] encounter [facility]* Diagnosis Primary osteoarthritis of right knee- Primary documented in this encounter [facility]* Diagnosis Primary osteoarthritis of right knee- Primary [facility] Narrative No data available for this section [facility] Hospital Discharge instructions No data available for this section [facility] InstructionsNot on filedocumented in this encounter [facility]Not on filedocumented in this encounter [facility] SystemInstructions* Attachments The following attachments cannot be sent through Care Everywhere. * Steroid injection (Nigerien) * Knee replacement (Nigerien) [facility] No data available for this section [facility] Advance Directives No Advanced Directives Records [...] of brain injury (HCC) Jovita Virk MD [address] [place] [address] Referral ID Status Reason Start Date Expiration Date Visits Requested Visits Authorized [id number] Authorized Patient Preference 2 07/20/2023 3 3 Comments Brain MRI without contrast. H/o TBI 2010. Continues to struggle with cognitive deficits, fatigue, impaired balance, unimproved. Please evaluate for other structural causes of these issues. Fax report to me at [phone]. Specialty Diagnoses / Procedures Referred By Stephany flower Referred To Contact Speech Pathology Diagnoses Cognitive changes Late effect of brain injury (HCC) Jovita Virk MD [address] [place] [phone] [place] [address] Referral ID Status Reason Start Date Expiration Date Visits Requested Visits Authorized [id number] Pending Review Consultatio n-[facility] 2 07/20/2023 10 10 Question Answer Is [...] kidney disease) stage 2, GFR 60-89 ml/min [id number] NANCY (obstructive sleep apnea) Renal cyst Additional [...] Care Teams (unrecognized sec tion and content) Vice President Regulatory Relationship Specialty Start Date End Date Jovita Virk MD [address] [place] [address] Physician Physical Medicine & Rehab/PM&R 06/30/20 Vice President Regulatory Relationship Specialty Start Date End Date Jovita Virk MD [address] [place], [place] Physician Physical Medicine & Rehab/PM&R 06/30/20 Vice President Regulatory Relationship Specialty Start Date End Date Jovita Virk MD [address] [place] [address] Physician Physical Medicine & Rehab/PM&R 06/30/20 Vice President Regulatory Relationship Specialty Start Date End Date Ilda [...] June 06, 2024 End: June 06, 2024 Vice President Regulatory Relationship Specialty Start Date End Date Ilda Hendrickson MD [address] [place] [address] PCP - General Family Medicine 05/13/24 Vice President Regulatory Relationship Specialty Start Date End Date Ilda Hendrickson MD [address] [place] [address] PCP - General Family Medicine 05/13/24 Vice President Regulatory Relationship Specialty Start Date End Date Ilda Hendrickson MD [address] [place] [address] PCP - General Family Medicine 05/13/24 Vice President Regulatory Relationship Specialty Start Date End Date Ilda Hendrickson MD [address] [place] [address] PCP - General Family Medicine 05/13/24 Vice President Regulatory Relationship Specialty Start Date End Date Ilda Hendrickson MD PCP - General 07/05/16 Vice President Regulatory Relationship Specialty Start Date End Date Ilda Hendrickson MD [address] [place] [address] PCP - General 07/05/16 Vice President Regulatory Relationship Specialty Start Date End Date Ilda Hendrickson MD PCP - General 07/05/16 Vice President Regulatory Relationship Specialty Start Date End Date Ilda Hendrickson MD PCP - General 07/05/16 (unrecognized sect ion and content) No Status Records FoundNo Status Records FoundNo Status Records FoundNo Status Records FoundNo Status Records FoundNo Status Records FoundNo Status Records FoundNo Status Records Found INFORMATION SOURCE (unrecogn ized section and content) DATE CREATED AUTHOR 01/27/2023 [facility] DATE CREATED AUTHOR AUTHOR'S ORGANIZ ATION 04/27/2023 [facility] DATE CREATED AUTHOR AUTHOR'S ORGANIZ ATION 09/23/2023 [facility] DATE CREATED AUTHOR AUTHOR'S ORGANIZ ATION 04/12/2024 [facility] DATE CREATED AUTHOR AUTHOR'S ORGANIZ ATION 07/19/2024 [facility] DATE CREATED AUTHOR AUTHOR'S ORGANIZ ATION 10/23/2024 [facility] DATE CREATED AUTHOR AUTHOR'S ORGANIZ ATION 2025 [facility] DATE CREATED AUTHOR AUTHOR'S ORGANIZ ATION 2025 [facility] Source Comments (unrecognize d section and content) In the event this informatio n is protected by the Federal Confidentiality of Alcohol and Drug Abuse Patient Records regulations: The Federal rules restrict any use of the information to criminally investigate or prosecute any alcohol or drug abuse patient.[facility] Goals (unrecognized section and content) Goals may [...] BE BASED ON THE PRIMARY CLINICAL RECORDS. [facility] [employer] [facility]. provides no warranty or guarantee of the accuracy or completeness of information in this document.
== END 2025-05-13 12:17 | disposition home or self-care (01) ==
LOC: LAB 12:18
PROVIDERS: PCP Family Medicine; Visit Provider Family Medicine
DX: D72.819 Decreased white blood cell count, unspecified (principal); I10 Essential (primary) hypertension
CPT/HCPCS: 36415; 80048; 85025

== ENCOUNTER 2025-05-29 09:38 | Outpatient (OUT) | payer BC, MEDICARE, SELFPAY ==
--- OUTSIDE RECORDS SUMMARY | 2025-01-21 07:15 | XMS_ITS ---
Author Organization [facility] in [place] Address [address] [place] [address] Care Team Providers Care Director General Name Role Phone Nabeel Hendrickson Primary Care Provider Tracy Griffin Unavailable [phone] REASON FOR VISIT MD Encounters Encounter Location Date Provider Diagnosis [facility] Oncology [address] [place] [address] 01/21/2025 Tracy Griffin Plan Of Treatment Next Appt Details Provider Name:Nabeel Hendrickson, 10:00:00 AM, [address] [place], [address], Provider Name:Nabeel Hendrickson, 09:00:00 AM, [address] [place] [address], [phone], Provider Name:Tracy Griffin , 07/29/2025 11:30:00 AM, [address] [place], [address], Progress Notes * King ADDISONDOB: [birth year] (65 yo M)Acc No.[id number]:01/21/2025 UNLOCKED PROGRESS NOTE Progress Notes Patient: King NEWSOME Provider: Dawn Griffin M.D. :1960 A ge:64 Y S ex:Male Date:01/21/2025 Address:[address] [place] [address] [place], [id number] Pcp:Nabeel Hendrickson Subjective: * Chief Complaints: * 1 . MD. * Medical History: Objective: * Vitals: Assessment: Plan: * Treatment: * * Electronic signature of Jj Griffin MD, [id number] on 05/29/2025 at 09:41 AM EDT Sign off status: Pending Visit Status: V RUDYG (Voice) * Provider: Dawn Griffin M.D. Date: 0 01/21/2025 Generated for Douglas briones/Honorio/Dulce on: 0 05/29/2025 09:41 AM EDT
--- OUTSIDE RECORDS SUMMARY | 2025-02-06 05:15 | XMS_ITS ---
Author Organization [facility] in [place] Address [address] [place] [address] Care Team Providers Care Electric Motor Repairer Name Role Phone Nabeel Hendrickson Primary Care Provider [phone] REASON FOR VISIT b-12 Encounters Encounter Location Date Provider Diagnosis [facility] [address] [place] [address] 02/06/2025 Nabeel Hendrickson Deficiency of vitami n B12 E53.8 Assessments Encounter Date Diagnosis (ICD Code) Assessment Notes Treatment Notes Treatment Clinical Notes Section Notes 02/06/2025 Deficiency of vitamin B12 (ICD-10 - E53.8) Plan Of Treatment Next Appt Details Provider Name:Nabeel Hendrickson, 10:00:00 AM, [address] [place], [address], Provider Name:Nabeel Hendrickson, 09:00:00 AM, [address] [place], [address], Provider Name:Tracy Griffin , 07/29/2025 11:30:00 AM, [address] [place], [address], Medications Administered Medication Instructions Date of Administration Dosage Notes Cyanocobalamin 02/06/2025 1 mL Progress Notes * King ADDISONDOB: [birth year] (64 yo M)Acc No.[id number]:02/06/2025 Progress Note Patient: King NEWSOME Provider: Jay Hendrickson ([facility])MD :1960 A ge:64 Y S ex:Male Date:02/06/2025 Address:[address] [place], [place] [address], [id number] Check In:09:05 AM ESTCheck O ut:09:20 AM [...] Edema Modified On:08/24/2023 Status:confirmed M54.2 Cervicalgia Modified On:03/14/2023U Status:confirmed H61.23 Impacted cerumen, bi lateral Modified On:01/27/2023 Status:confirmed I48.91 Unspecified atrial f ibrillation Modified On:06/27/2023 Status:confirmed M25.511 Pain in right should er Modified On:03/14/2023 Status:confirmed M25.512 Pain in left shoulde r [...] 9 6372 THERAP.INJ. OF MED. INTRAMUSCULAR OR [id number] VITAMIN B-12 < 1000 MCG * * Sign off status: Completed Visit Status: C HK (Check Out) true * Provider: Jay Hendrickson ([facility])MD Date: 0 02/06/2025 Generated for Douglas briones/Honorio/Willitting on: 0 05/29/2025 09:41 AM EDT
--- OUTSIDE RECORDS SUMMARY | 2025-03-13 05:00 | XMS_ITS ---
Author Organization The [facility] in [place] Address [address] [place] [address] Care Team Providers Care Vp Software Name Role Phone Nabeel Hendrickson Primary Care Provider REASON FOR VISIT injection Encounters Encounter Location Date Provider Diagnosis [facility] [address] [place] [address] 03/13/2025 Nabeel Hendrickson Deficiency of vitami n B12 E53.8 Assessments Encounter Date Diagnosis (ICD Code) Assessment Notes Treatment Notes Treatment Clinical Notes Section Notes 03/13/2025 Deficiency of vitamin B12 (ICD-10 - E53.8) Plan Of Treatment Next Appt Details Provider Name:Nabeel Hendrickson, 10:00:00 AM, [address] [place], [address], Provider Name:Nabeel Pompa Henrikluz maria, 09:00:00 AM, [address] [place], [address], Provider Name:Tracy Griffin , 07/29/2025 11:30:00 AM, [address] [place], [address], Medications Administered Medication Instructions Date of Administration Dosage Notes Cyanocobalamin 03/13/2025 1 mL Progress Notes * King ADDISONDOB: [birth year] (65 yo M)Acc No.[id number]:03/13/2025 Progress Note Patient: King NEWSOME Provider: Jay Hendrickson ([facility])MD :1960 A ge:65 Y S ex:Male Date:03/13/2025 Address:[address] [place], [place] [address], [id number] Check In:08:56 AM ESTCheck O ut:09:05 AM [...] : 1 mL (Route: Intramuscular) given by Nancy Torres , on right deltoid (Deficiency of vitamin B12) * Procedure Codes: 9 6372 THERAP.INJ. OF MED. INTRAMUSCULAR OR [id number] VITAMIN B-12 < 1000 MCG * * Sign off status: Completed Visit Status: C HK (Check Out) true * Provider: Jay Hendrickson ([facility])MD Date: 0 03/13/2025 Generated for Douglas briones/Honorio/Willitting on: 0 05/29/2025 09:41 AM EDT History and Physical Notes * HPI (History of Present Illness) Category Sub-Category Detail Notes Category Not es General Presents to off ice for monthly standing order B-12 injection
--- OUTSIDE RECORDS SUMMARY | 2025-04-10 05:00 | XMS_ITS ---
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 Assessments Encounter Date Diagnosis (ICD Code) Assessment Notes Treatment Notes Treatment Clinical Notes Section Notes 04/10/2025 Deficiency of vitamin B12 (ICD-10 - E53.8) Plan Of Treatment Next Appt Details Provider Name:Nabeel Hendrickson, 10:00:00 AM, [address] [place], [address], Provider Name:Nabeel Hendrickson, 09:00:00 AM, [address] [place], [address], Provider Name:Tracy Griffin , 07/29/2025 11:30:00 AM, [address] [place], [address], Medications Administered Medication Instructions Date of Administration Dosage Notes Cyanocobalamin 04/10/2025 1 mL Progress Notes * King ADDISONDOB: [birth year] (65 yo M)Acc No.[id number]:04/10/2025 Progress Note Patient: King NEWSOME Provider: Jay Hendrickson ([facility])MD :1960 A ge:65 Y S ex:Male Date:04/10/2025 Address:[address] [place], [place] [address], [id number] Check In:09:07 AM ESTCheck O ut:09:15 AM EST Subjective: * Chief Complaints: * B 12 injection * HPI: G eneral: presents to the office for a b12 injection. * Active Problem List E03.9 Hypothyroid [...] stic Procedure: * Medications: Objective: * Vitals: H t: 66.5 in, Ht-cm: 168.91 cm. Assessment: * Assessment: 1. D eficiency of vitamin B12 - E53.8 (Primary) Plan: * Treatment: * Therapeutic Injections: Cyanocobalamin : 1 mL (Route: Intramuscular) given by DAVONTE Mccarthy on left deltoid (Deficiency of vitamin B12) * Procedure Codes: 9 6372 THERAP.INJ. OF MED. INTRAMUSCULAR OR [id number] VITAMIN B-12 < 1000 MCG * * Sign off status: Completed Visit Status: C HK (Check Out) true * Provider: Jay Hendrickson ([facility])MD Date: 04/10/2025 Generated for Douglas briones/Honorio/Willitting on: 05/29/2025 09:40 AM EDT History and Physical Notes * HPI (History of Present Illness) Category Sub-Category Detail Notes Category Not es General presents to the office for a b12 injection
--- OUTSIDE RECORDS SUMMARY | 2025-05-12 05:00 | XMS_ITS ---
Author Organization The [facility] in [place] Address [address] [place] [address] Care Team Providers Care Wire Straightening Machine Operator Name Role Phone Nabeel Hendrickson Primary Care Provider [phone] REASON FOR VISIT b-12 Encounters Encounter Location Date Provider Diagnosis [facility] [address] [place] [address] 05/12/2025 Nabeel Hendrickson B12 deficiency E53.8 Assessments Encounter Date Diagnosis (ICD Code) Assessment Notes Treatment Notes Treatment Clinical Notes Section Notes 05/12/2025 B12 deficiency (ICD-10 - E53.8) Plan Of Treatment Next Appt Details Provider Name:Nabeel Hendrickson, 10:00:00 AM, [address] [place], [address], Provider Name:Nabeel Hendrickson, 09:00:00 AM, [address] [place], [address], Provider Name:Tracy Griffin , 07/29/2025 11:30:00 AM, [address] [place], [address], Medications Administered Medication Instructions Date of Administration Dosage Notes Cyanocobalamin 05/12/2025 1 mL Progress Notes * King ADDISONDOB: [birth year] (65 yo M)Acc No.[id number]:05/12/2025 Progress Note Patient: King NEWSOME Provider: Jay Hendrickson ([facility])MD :1960 A ge:65 Y S ex:Male Date:05/12/2025 Address:[address] [place], [place] [address], [id number] Check In:09:03 AM ESTCheck O ut:09:10 AM EST Subjective: * Chief Complaints: * 1 . B-12. * HPI: G eneral: presents to the office for standing or b12 injection. * Active Problem List E03.9 [...] Modified On:08/24/2023 Status:confirmed E53.8 B12 deficiency Modified On:11/28/2023U Status:confirmed R47.1 Dysarthria Modified On:01/25/2023 Status:confirmed M50.30 Degenerative cervica l disc Modified On:01/25/2023 Status:confirmed D70.9 Neutropenia Modified On:06/27/2023U Status:confirmed D72.819 Leukopenia Modified On:08/24/2023 Status:confirmed G47.33 [...] unspecified Modified On:01/23/2025 Status:confirmed * Medical History: Objective: * Vitals: Assessment: * Assessment: 1. 12 deficiency - E53.8 (Primary) Plan: * Treatment: * Therapeutic Injections: Cyanocobalamin : 1 mL (Route: Intramuscular) given by DAVONTE Mccarthy on right deltoid (B12 deficiency) * Procedure Codes: 9 6372 THERAP.INJ. OF MED. INTRAMUSCULAR OR SUBCUTANEOUS, J3420 VITAMIN B-12 < 1000 MCG * * Sign off status: Completed Visit Status: C HK (Check Out) true * Provider: Jay Hendrickson ([facility])MD Date: 0 05/12/2025 Generated for Douglas briones/Honorio/Willitting on: 0 05/29/2025 09:41 AM EDT History and Physical Notes * HPI (History of Present Illness) Category Sub-Category Detail Notes Category Not es General presents to the office for standing or b12 injection
--- OUTSIDE RECORDS SUMMARY | 2025-05-29 09:41 | XMS_ITS | Encounter Summary ---
Author Organization [facility] Address [address] [place] [address] Care Team Providers Care Soda Dialyzer Name Role Phone Ryan Hendrickson MD Primary Care Provider [phone] Reason for Visit * Reason Comments Med Change Request Encounter Details Date Type Department Care Team (Late Contact Info) Description 08/02/[address] [address] George Loza MD [address] [facility] [address] [facility] [place] [address] Paroxysmal atrial fibrillation (CMS/HCC); Essential [...] Description 07/24/2025 11:00 AM EDT Office Visit [facility] [address] [place] [address] George Loza MD [address] [place] [address] [facility] [place] [place] [id number] documented as of this encounter Visit Diagnoses Diagnosis Paroxysmal atrial fibrillation (CMS/HCC) Atrial fibrillation Essential hypertension Unspecified essential hypertension documented in this encounter Care Teams Soda Dialyzer Relationship Specialty Start Date End Date Ryan Hendrickson MD [address] [place] [address] PCP - General 06/28/23 documented as of this encounter
--- OUTSIDE RECORDS SUMMARY | 2025-05-29 09:41 | XMS_ITS | Clinical Summary ---
Author Organization [facility] Address [address] [place] [address], [address] [place] [address] Care Team Providers Care Lasting Machine Operator Hand Method Name Role Phone Unavailable Primary Care Provider [...]
--- OUTSIDE RECORDS SUMMARY | 2025-05-29 09:41 | XMS_ITS | Encounter Summary ---
Author Organization [facility] Address [address] [facility] [place] [address] Care Team Providers Care Boiler Inspector Name Role Phone Ryan Hendrickson MD Primary Care Provider [phone] Encounter Details Date Type Department Care Team (Late st Contact Info) Description 06/12/2024 Orders Only [facility] [address] [place] [address] Román Dawson MD [address] [place] [address] Social History Tobacco Use Types Packs/Day Years [...] [facility] [address] [place] [address] Román Dawson MD [address] [place] [address] documented as of this encounter Procedures Procedure Name Priority Date/Time Associated Diagnosis Comments MISC TEST ([facility] TESTING ONLY) Routine 06/12/2024 11:04 AM EDT T3, FREE Routine 06/03/2024 9:17 AM EDT TSH Routine 06/03/2024 9:17 AM EDT T4, FREE Routine 06/03/2024 9:17 AM EDT documented in this encounter Results * MISC TEST ([facility] TESTING ONLY) (06/12/2024 11:04 AM EDT) Result [facility] Román Dawson MD LAB BLOOD ORDERABLES Final Re sult * T3, free (06/03/2024 9:17 AM EDT) Blood Venous blood specimen / Unknown Result [facility] us Román Dawson MD LAB BLOOD ORDERABLES Final Re sult * T4, free (06/03/2024 9:17 AM EDT) Blood Venous blood specimen / Unknown Result [facility] us Román Dawson MD LAB BLOOD ORDERABLES Final Re sult * TSH (06/03/2024 9:17 AM EDT) Blood Venous blood specimen / Unknown Result Arden Dawson MD LAB BLOOD ORDERABLES Final Re sult documented in this encounter Visit Diagnoses Not on filedocumented in this encounter Care Teams Boiler Inspector Relationship Specialty Start Date End Date Ryan Hendrickson MD PCP - General Family Medicine 05/13/24 documented as of this encounter
--- OUTSIDE RECORDS SUMMARY | 2025-05-29 09:41 | XMS_ITS | Patient Health Record ---
Author Organization [facility] in [place] Address [address] [place] [address] Care Team Providers Care Flat Folder Name Role Phone Nabeel Hendrickson Primary Care Provider Tracy Griffin Unavailable [phone] Allergies Allergen (clinical drug ingredient) Drug/Non Drug Allergy documented on EMR Reaction Allergy Type Onset Date Status ciprofloxacin Cipro Unknown Drug Allergy Act fabien ciprofloxacin Ciprofloxacin Unknown Drug Allergy Active Results Component Value Reference Range Notes VITAMIN D 25 [place] Reviewed date:06/03/2024 08:50:34 PM Interpretation: Performing Lab: Notes/Report: [facility] , Vitamin D 74.8 <20 ng/mL Vit D deficient 20-<30 ng/mL Vit D insufficient 30-100 ng/mL Vit D sufficient >100 ng/mL Potential Toxicity Performing Lab: see note ML - [facility] LB PTH, Intact Reviewed date:06/04/2024 10:37:46 PM Interpretation: Performing Lab: Notes/Report: [facility] , PTH, Intact 34 15-65 pg/mL Performed at: - [facility] [address] [id number] Broaching Machine Repairer: Aleks Ferreira PhD, Phone: [phone] Performing Lab: see note LC - [facility] LB CBC AUTO DIFF Reviewed date:02/13/2025 08:22:33 PM Interpretation: Performing Lab: Notes/Report: [facility] , White Blood Count 4.2 4.0-11.0 10 [...] 9.5 9.5-13.5 fL Performing Lab: see note [facility] Immunoglobulin G, Qn, Serum Reviewed date:02/13/2025 08:22:32 PM Interpretation: Performing Lab: Notes/Report: [facility] , Immunoglobulin G, Qn 858 775-8792 mg/dL Performed at: [address] [id number] Broaching Machine Repairer: Aleks Ferreira PhD, Phone: [phone] Performing Lab: see note [facility] PSA Reviewed date:10/21/2024 08:25:24 PM Interpretation: Performing Lab: Notes/Report: [facility] , Prostate Specific Antigen Dx 0.74 <=4.00 ng/mL Performing Lab: see note [facility] LB Testosterone Reviewed date:10/22/2024 04:45:30 PM Interpretation: Performing Lab: Notes/Report: [facility] , Testosterone 371 264-916 ng/dL Adult male reference interval is based on a population of healthy nonobese males (BMI <30) between 19 and 39 years old. Brad et.al. JCEM 2017,102;2251-1481. PMID: 54039006. Performed at: [address] [id number] Broaching Machine Repairer: Aleks Ferreira PhD, Phone: [phone] Performing Lab: see note [facility] PROF CHEM 8 (BAS METB) Reviewed date:12/24/2024 04:34:09 PM Interpretation: Performing Lab: Notes/Report: [facility] , Sodium 142 136-145 mmol/L Potassium 4.6 [...] mg/dL Performing Lab: see note ML - [facility] LB CBC AUTO DIFF Reviewed date:02/13/2025 08:22:32 PM Interpretation: Performing Lab: Notes/Report: [facility] , White Blood Count 3.9 4.0-11.0 10 [...] Performing Lab: see note ML - [facility] LB LDH Reviewed date:02/13/2025 08:22:32 PM Interpretation: Performing Lab: Notes/Report: [facility] , Lactate Dehydrogenase 168 85-227 U/L Performing Lab: see note ML - [facility] LB PROF 14(COMP METB) Reviewed date:02/13/2025 08:22:32 PM Interpretation: Performing Lab: Notes/Report: [facility] , Sodium 138 136-145 mmol/L Potassium 4.3 [...] 1.4 Performing Lab: see note ML - [facility] LB ALBUMIN Reviewed date:05/13/2025 08:28:06 PM Interpretation: Performing Lab: Notes/Report: [facility] , Albumin Level 4.2 3.4-5.0 g/dL Performing Lab: see note ML - [facility] LB CBC AUTO DIFF Reviewed date:05/13/2025 08:28:06 PM Interpretation: Performing Lab: Notes/Report: [facility] , White Blood Count 3.5 4.0-11.0 10 3/uL Red Blood Count 5.13 4.70-6.10 10 6/uL Hemoglobin 15.5 14.0-18.0 g/dL Hematocrit 45.4 42.0-54.0 % Mean Corpuscular Volume 88.5 80.0-94.0 fL Mean Corpuscular Hemoglobin 30.2 25.9-34.0 pg Mean Corpuscular HGB Conc 34.1 29.9-35.2 g/dL Red Cell Distribution Width 13.2 11.0-15.0 % Platelet Count 136 150-450 10 3/uL Mean Platelet Volume 9.8 9.5-13.5 fL Neutrophils Percent Auto 63.8 43.0-75.0 % Lymphocytes Percent Auto 23.9 20.5-60.0 % Monocytes Percent Auto 8.9 1.7-12.0 % Eosinophils Percent Auto 2.0 0.9-7.0 % Basophils Percent Auto 1.1 0.2-2.0 % Immature Granulocytes Pct Auto 0.3 0.0-0.5 % Neutrophils Absolute Auto 2.2 1.4-6.5 10 3/uL Lymphocytes Absolute Auto 0.8 1.2-3.8 10 3/uL Monocytes Absolute Auto 0.3 0.3-0.8 10 3/uL Eosinophils Absolute Auto 0.1 0.0-0.7 10 3/uL Basophils Absolute Auto 0.0 0.0-0.1 10 3/uL Immature Granulocytes Abs Auto 0.01 0.00-0.03 10 3/uL Performing Lab: see note ML - [facility] GLYCOHEMOGLOBIN A1C Reviewed date:05/13/2025 08:28:06 PM Interpretation: Performing Lab: Notes/Report: [facility] , Glycohemoglobin A1C 5.1 4.5-6.2 % ADA RECOMMENDED LIMIT 4.0 - 6.0 ADA THERAPEUTIC TARGET < 7.0 ACTION SUGGESTED > 7.0 Estimated Average Glucose 100 Performing Lab: see note ML - [facility] LB LAB TESTING Reviewed date:05/21/2025 06:34:22 PM Interpretation: Performing Lab: Notes/Report: [id number] Nicotine and Metabolite, Quantitative, Plasma, Whole Blood, [facility] , Miscellaneous Test COMMENT . Test Ordered: [id number] Nicotine and Metabolite, Quant Nicotine <1.0 ng/mL BN Reference Range: . This test was developed and its performance characteristics determined by [facility]. It has not been cleared or approved by the Food and Drug Administration. Nicotine levels greater than 2.0 are consistent with the use of tobacco or tobacco cessation products. Cotinine <1.0 ng/mL Reference Range: . This test was developed and its performance characteristics determined by [facility]. It has not been cleared or approved by the Food and Drug Administration. Cotinine levels greater than 20.0 are consistent with the use of tobacco or tobacco cessation products. Performed at: - [facility] [id number] Broaching Machine Repairer: Nicole Calles MD, Phone: [phone] Performed at: [facility] [address] [id number] Broaching Machine Repairer: Aleks Ferreira PhD, Phone: [phone] Performing Lab: see note - [facility] LB PROF CHEM 8 (BAS METB) Reviewed date:05/13/2025 08:28:06 PM Interpretation: Performing Lab: Notes/Report: [facility] , Sodium 138 136-145 mmol/L Potassium 4.4 3.5-5.1 mmol/L Chloride 104 98-107 mmol/L Carbon Dioxide 29.2 21.0-32.0 mmol/L Anion Gap 9.2 Glucose 94 74-106 mg/dL Blood Urea Nitrogen 19.0 7.0-18.0 mg/dL Creatinine 1.12 0.70-1.30 mg/dL Estimated GFR ( Pretty >60 >=60 mL/min/1.73m 2 Estimated GFR (Non- Glenny >60 >=60 mL/min/1.73m 2 BUN Creatinine Ratio 17.0 Calcium 9.2 8.5-10.1 mg/dL Performing Lab: see note ML - [facility] VITAMIN D 25 [place] Reviewed date:05/13/2025 08:28:06 PM Interpretation: Performing Lab: Notes/Report: [facility] , Vitamin D 78.3 <20 ng/mL Vit D deficient 20-<30 ng/mL Vit D insufficient 30-100 ng/mL Vit D sufficient >100 ng/mL Potential Toxicity Performing Lab: see note ML - [facility] LB MRSA Screening Culture Reviewed date:05/15/2025 04:24:32 PM Interpretation: Performing Lab: Notes/Report: [facility] , MRSA Screening Culture See Below For Report MRSA Screening Culture MRSA Screening Culture Negative MRSA Screening Culture MRSA Screening Culture Performed at: - [facility] [place] MRSA Screening Culture MRSA Screening Culture [address] [place], [place] [id number] MRSA Screening Culture MRSA Screening Culture Broaching Machine Repairer: Alexi Ferreira PhD, Phone: [phone] MRSA Screening Culture Performing Lab: see note LC - [facility] LB SEE REPORT - Certified Adapted Physical Educator Id 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 Ordering Physician: Nikita Hutchison Date of Service: 05/13/25 Procedure(s): XR knee RT 4V Accession Number(s): [id number] cc: Ryan Hendrickson M.D.; Nikita Hutchison [place] [address] Patient Name: KING ADDISON MRN: [id number] date: 1960 Sex: M Assigned Patient Location: [facility] Current Patient Location: [facility] Accession/Order Number: [id number] Exam Date: 05/13/2025 12:02 Report Date: 05/13/2025 12:04 At the request of: NIKITA HUTCHISON MD Procedure: XR knee RT 4V RIGHT KNEE 3 views CLINICAL HISTORY: m25.561 Pain in right knee COMPARISON: None FINDINGS: Anterior knee soft tissue swelling. Severe medial compartment and qrxt-zb-xodosuot patellofemoral marker and degenerative changes. Mild lateral compartment degenerative change. Calcific densities within the suprapatellar region question synovial. XR/XR knee RT 4V IMPRESSION: Anterior knee soft tissue swelling. Severe medial compartment degenerative changes. Impression dictated by: Michael Arzate M.D. 05/13/2025 12:04 PM Dictation Location: [facility] Electronically authenticated by: [id number] Y Date: 05/13/2025 12:04 Dictated By: Michael Arzate M.D. Signed By: 05/13/25 1206 DD/ 1204 TD/TT: Striker Out: [place] [address] XRay Report Signed Patient: CHRISTA ADDISON MR#: [id number] : 1960 Acct:[id number] Age/Sex: 65 / M ADM Date: 05/13/25 Loc: RAD Attending Dr: Nikita Hutchison M.D. Ordering Physician: Nikita Hutchison Date of Service: 05/13/25 Procedure(s): XR kne e RT 4V Accession Number(s): [id number] cc: Ryan Hendrickson M.D. ; Nikita Hutchison [place] [address] Patient Name: KING ADDISON MRN: [id number] date: 1960 Sex: M Assigned Patient Location: [facility] Current Patient Location: [facility] Accession/Order Numb er: [id number] Exam Date: 05/13/2025 12:02 Report Date: 05/13/2025 12:04 At the request of: NIKITA HUTCHISON MD Procedure: XR knee RT 4V RIGHT KNEE 3 views CLINICAL HISTORY: m25.561 Pain in right knee COMPARISON: None FINDINGS: Anterior knee soft tissue swelling. Severe medial compartment and zyzv-eg-mdfxgoyd patellofemoral marker and degenerative changes. Mild lateral compartment degenera tive change. Calcific densities within the suprapatellar region question synovial. X R/XR knee RT 4V IMPRESSION: Anterior knee soft tissue swelling. Severe medial compartment degenerative changes. Impression dictated by: Michael Arzate M.D. 05/13/2025 12:04 PM Dictation Location: [facility] Electronically authenticated by: [id number] Y Date: 05/13/2025 12:04 Dictated By: Floresita Arzate M.D. Signed By: 05/13/25 1206 DD/ 1204 TD/TT: Striker Out: ABI echo doppler complete Reviewed date:02/13/2025 08:22:32 PM Interpretation: Performing Lab: Notes/Report: Source Facility: [facility] [place] [address] [place] [address] Cardiology Report Signed Patient: KING ADDISON MR#: [id number] : 1960 Acct:[id number] Age/Sex: 64 / M ADM Date: 02/12/25 Loc: CARD Attending Dr: George William M.D. Ordering Physician: George William M.D. Date of Service: 02/12/25 Procedure(s): ABI echo doppler complete Accession Number(s): [id number] cc: George William M.D.; Ryan Hendrickson M.D. Patient Name: KING ADDISON MR#: [id number] : 1960 Exam Date: 02/12/2025 Ordering Doctor: [...] 41.21 ml, 41.21 ml Dictated by: Rick Gutierrez M.D. on 02/12/2025 at 19:21 Approved by: Rick Gutierrez M.D. on 02/12/2025 at 19:25 Dictated By: RICK GUTIERREZ Signed By: 02/12/251925 DD/ 24 TD/TT: Striker Out: [place] [address] Cardiology Report Signed Patient: CHRISTA ADDISON MR#: [id number] : 1960 Acct:[id number] Age/Sex: 64 / M ADM Date: 02/12/25 Loc: CARD Attending Dr: George William M.D. Ordering Physician: George William M.D. Date of Service: 02/12/25 Procedure(s): CA ech o doppler complete Accession Number(s): [id number] cc: George William; Ryan Hendrickson M.D. Patient Name: KING ADDISON MR#: [id number] : 1960 Exam Date: 02/12/2025 Ordering Doctor: [...] Gradient: 1 .48 mm[Hg] LVOT Area (cm2): 0.6 1 m/s Peak Velocity (LVOT) : 0.61 m/s [...] 41.21 ml, 41.21 ml Dictated by: Rick Gutierrez M.D. on 02/12/2025 at 19:21 Approved by: Rick Gutierrez M.D. on 02/12/2025 at 19:25 Dictated By: RICK GUTIERREZ Signed By: 02/12/251925 DD/ 24 TD/TT: Striker Out: PROF RICKEY Edouard ([facility]) Reviewed date:02/12/2025 05:51:29 PM Interpretation: Performing Lab: Notes/Report: [facility] , Sodium 141 136-145 mmol/L Potassium 4.6 [...] mg/dL Performing Lab: see note ML - [facility] LB Immunoglobulin G, Qn, Serum Reviewed date:02/13/2025 08:22:32 PM Interpretation: Performing Lab: Notes/Report: [facility] , Immunoglobulin G, Qn 119 015-1602 mg/dL Performed at: - [facility] [address] [id number] Broaching Machine Repairer: Aleks Ferreira PhD, Phone: [phone] Performing Lab: see note - [facility] LB CBC AUTO DIFF Reviewed date:12/24/2024 04:34:09 PM Interpretation: Performing Lab: Notes/Report: [facility] , White Blood Count 3.6 4.0-11.0 10 [...] 10 3/uL Performing Lab: see note - [facility] LB PROF CHEM 8 (BAS METB) Reviewed date:11/20/2024 12:37:15 PM Interpretation: Performing Lab: Notes/Report: [facility] , Sodium 139 136-145 mmol/L Potassium 4.7 [...] Performing Lab: see note ML - [facility] LB CBC AUTO DIFF Reviewed date:11/20/2024 12:37:15 PM Interpretation: Performing Lab: Notes/Report: [facility] , White Blood Count 3.5 4.0-11.0 10 [...] 3/uL Performing Lab: see note ML - [facility] LB Manual Differential Reviewed date:02/13/2025 08:22:33 PM Interpretation: Performing Lab: Notes/Report: [facility] , Segmented Neutrophils % Manual 72.0 43.0-75.0 [...] 0.00-0.10 10 3/uL Performing Lab: see note ML - [facility] LB PROF 14(COMP METB) Reviewed date:02/13/2025 08:22:32 PM Interpretation: Performing Lab: Notes/Report: [facility] , Sodium 141 136-145 mmol/L Potassium 4.9 [...] 1.5 Performing Lab: see note ML - [facility] LB LDH Reviewed date:02/13/2025 08:22:32 PM Interpretation: Performing Lab: Notes/Report: [facility] , Lactate Dehydrogenase 208 85-227 U/L Performing Lab: see note - [facility] LB PROF CHEM 8 (BAS METB) Reviewed date:08/15/2024 02:54:14 PM Interpretation: Performing Lab: Notes/Report: [facility] , Sodium 140 136-145 mmol/L Potassium 4.1 [...] mg/dL Performing Lab: see note ML - [facility] LB CBC AUTO DIFF Reviewed date:08/15/2024 02:54:14 PM Interpretation: Performing Lab: Notes/Report: [facility] , White Blood Count 3.6 4.0-11.0 10 [...] 10 3/uL Performing Lab: see note - [facility] LB PROF CHEM 8 (BAS METB) Reviewed date:07/16/2024 04:20:11 PM Interpretation: Performing Lab: Notes/Report: [facility] , Sodium 140 136-145 mmol/L Potassium 4.2 [...] mg/dL Performing Lab: see note ML - [facility] LB CBC AUTO DIFF Reviewed date:07/16/2024 04:20:11 PM Interpretation: Performing Lab: Notes/Report: [facility] , White Blood Count 4.2 4.0-11.0 10 [...] 10 3/uL Performing Lab: see note - [facility] LB CBC no Diff (Hemogram) Reviewed date:06/03/2024 08:50:34 PM Interpretation: Performing Lab: Notes/Report: [facility] , White Blood Count 3.2 4.0-11.0 10 [...] 9.5-13.5 fL Performing Lab: see note - [facility] LB URINE T PROTEIN CREAT RATIO Reviewed date:06/03/2024 08:50:34 PM Interpretation: Performing Lab: Notes/Report: [facility] , Total Protein Urine Random 6.9 <=11.9 mg/dL Creatinine Urine Random 107.55 20.00-30 0.00 mg/dL Protein Creatinine Ratio Urine 0.06 Performing Lab: see note ML - [facility] LB URIC ACID SERUM Reviewed date:06/03/2024 08:50:34 PM Interpretation: Performing Lab: Notes/Report: [facility] , Uric Acid 4.7 3.5-7.2 mg/dL Performing Lab: see note ML - [facility] LB UA RANDOM W or MICROSCOPIC Reviewed date:06/03/2024 08:50:34 PM Interpretation: Performing Lab: Notes/Report: [facility] , Color Urine YELLOW YELLOW Clarity Urine CLEAR CLEAR Specific [place] Urine 1.020 1.005-1.025 pH Urine 5.5 5.0-9.0 [...] #/LPF Performing Lab: see note ML - [facility] LB TSH Reviewed date:06/03/2024 08:50:34 PM Interpretation: Performing Lab: Notes/Report: [facility] , Thyroid Stimulating Hormone 0.664 0.358-3.740 uIU/mL Performing Lab: see note ML - [facility] LB RENAL FUNCTION PANEL Reviewed date:06/03/2024 08:50:33 PM Interpretation: Performing Lab: Notes/Report: [facility] , Sodium 138 136-145 mmol/L Potassium 3.9 [...] g/dL Performing Lab: see note ML - [facility] LB MAGNESIUM Reviewed date:06/03/2024 08:50:33 PM Interpretation: Performing Lab: Notes/Report: [facility] , Magnesium 1.9 1.8-2.4 mg/dL Performing Lab: see note ML - [facility] LB FREE T4 Reviewed date:06/03/2024 08:50:33 PM Interpretation: Performing Lab: Notes/Report: [facility] , Free T4 0.79 0.76-1.46 ng/dL Performing Lab: see note ML - [facility] LB FREE T3 Reviewed date:06/03/2024 08:50:33 PM Interpretation: Performing Lab: Notes/Report: [facility] T3 3.68 2.18-3.98 pg/mL Performing Lab: see note ML - [facility] LB XR pelvis 1-2V Reviewed date:05/13/2025 08:28:06 PM Interpretation: Performing Lab: Notes/Report: Source Facility: [place] [address] XRay Report Signed Patient: KING ADDISON MR#: [id number] : 1960 Acct:[id number] Age/Sex: 65 / M ADM Date: 05/13/25 Loc: RAD Attending Dr: Nikita Hutchison M.D. Ordering Physician: Nikita Hutchison Date of Service: 05/13/25 Procedure(s): XR pelvis 1-2V Accession Number(s): [id number] cc: Ryan Hendrickson M.D.; Nikita Hutchison [place] [address] Patient Name: KING ADDISON MRN: [id number] date: 1960 Sex: M Assigned Patient Location: RAD Current Patient Location: LAB Accession/Order Number: [id number] Exam Date: 05/13/2025 12:44 Report Date: 05/13/2025 12:45 At the request of: NIKITA HUTCHISON MD Procedure: XR pelvis 1-2V AP PELVIS: CLINICAL HISTORY: m25.561 Pain in right knee COMPARISON: None No fractures or dislocation.. Joint spaces of both hips appears grossly preserved. Degenerative facet arthropathy greatest on the right involving the lumbosacral junction. Mild to moderate degenerative changes sacroiliac joints. XR/XR pelvis 1-2V IMPRESSION: NO ACUTE BONY FINDINGS. Degenerative changes lumbosacral junction. Impression dictated by: Michael Arzate M.D. 05/13/2025 12:45 PM Dictation Location: [place] [address] Electronically authenticated by: [id number] Y Date: 05/13/2025 12:45 Dictated By: Michael Arzate M.D. Signed By: 05/13/25 1248 DD/ 1245 TD/TT: Striker Out: [place] [address] XRay Report Signed Patient: CHRISTA ADDISON MR#: [id number] : 1960 Acct:[id number] Age/Sex: 65 / M ADM Date: 05/13/25 Loc: RAD Attending Dr: Nikita Hutchison M.D. Ordering Physician: Nikita Hutchison Date of Service: 05/13/25 Procedure(s): XR pel vis 1-2V Accession Number(s): [id number] cc: Ryan Hendrickson M.D. ; Nikita Hutchison [place] [address] Patient Name: KING ADDISON MRN: [id number] date: 1960 Sex: M Assigned Patient Location: RAD Current Patient Location: LAB Accession/Order Numb er: [id number] Exam Date: 05/13/2025 12:44 Report Date: 05/13/2025 12:45 At the request of: NIKITA HUTCHISON MD Procedure: XR pelvis 1-2V AP PELVIS: CLINICAL HISTORY: m25.561 Pain in right knee COMPARISON: None No fractures or dislocation.. Joint spaces of both hips appears grossly preserved. Degenerat fabien facet arthropathy greatest on the right involving the lumbosacral junction . Mild to moderate degenerative changes sacroiliac joints. X R/XR pelvis 1-2V IMPRESSION: NO ACUTE BONY FINDIN GS. Degenerative changes lumbosacral junction. Impression dictated by: Mcihael Arzate M.D. 05/13/2025 12:45 PM Dictation Location: [facility] Electronically authenticated by: [id number] Y Date: 05/13/2025 12:45 Dictated By: Floresita Arzate M.D. Signed By: 05/13/25 1248 DD/ 1245 TD/TT: Striker Out: Reason For Referral Diagnosis 1 Foreign body (FB) in soft tissue (M79.5) Referral Organization [facility] Referring Provider First Name Nabeel Referring Provider Last Name Madhavi Referring Provider Speciality [facility] amelie Referred Provider Ryan Yang Referred [...] Problem Status W/U Status Risk Notes Problem [id number] Primary osteoarthritis, right shoulder (M19.011) Active confirmed Problem Eruptive melanocytic nevi (231678637) Melanocytic nevi, unspecified (D22.9) Active confirmed Problem Leukopenia (94492501) Decreased white blood cell count, unspecified (D72.819) Active confirmed Problem 59772698 Vitamin D deficiency, unspecified (E55.9) Active confirmed Problem 57689822 Sleep apnea, unspecified (G47.30) Active confirmed Problem 51375238 Impacted cerumen , bilateral (H61.23) Active confirmed Problem 88613943 Unspecified atri al fibrillation (I48.91) Active confirmed Problem Cerebrovascular disease (37658838) Other cerebrovascular disease (I67.89) Active confirmed Problem 607564373 Raynaud's syndro me without gangrene (I73.00) Active confirmed Problem Orthostatic hypotension (85059042) Orthostatic hypotension (I95.1) Active confirmed Problem 999643200782021 Primary osteoarthritis, left shoulder (M19.012) Active confirmed Problem 67656951 Pain in right shoulder (M25.511) Active confirmed Problem 6649215533 Pain in left shoulder (M25.512) Active confirmed Problem 459484027543130 Other forms of scoliosis, site unspecified (M41.80) Active confirmed Problem 99971807 Other intervertebral disc degeneration, 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 confirmed Problem 65209629 Cervicalgia (M54.2) Active confirmed Problem 90037282 Loss of height (R29.890) Active confirmed Problem Aphasia (93766278) Aphasia (R47.01) Active conf irmed Problem Contusion and laceration of left cerebrum with loss of consciousness greater than 24 hours without return to pre-existing conscious level with patient surviving, subsequent encounter (S06.326D) Active confirmed Problem Atrial fibrillation (69676870) Atrial fibrillation (I48.91) Active confirmed Problem Spinal stenosis (09160399) Spinal stenosis (M48.00) Active confirmed Problem Edema (88212845) Edema (R60.9) Active confirmed Problem Hypothyroid (96422227) Hypothyroid (E03.9) Active confirmed Problem Attention deficit disorder (27884599) ADD (attention deficit disorder) (F90.0) Active confirmed Problem Sleep apnea (09838185) Sleep apnea (G47.30) Active confirmed Problem Eczema (32519963) Eczema (L30.9) Active confirm ed Problem Cerebrovascular disease (01814974) Other cerebrovascular disease (I67.89) Active confirmed Problem Acute combined systolic and diastolic heart failure (631429948992433) 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) Active confirmed Problem Lumbar radiculopathy (668437295) Lumbar radiculopathy (M54.16) Active confirmed Problem Pain in limb (38944310) Foot pain, left (M79.672) Active confirmed Problem Osteoarthritis of knee (957603424) Osteoarthritis of right knee (M17.9) Active confirmed Problem Well adult (438640823) Well adult (Z00.00) Active confirmed Problem Degenerative disc disease (31966931) DDD (degenerative disc disease), lumbar (M51.36) Active confirmed Problem Thrombocytopenia (246702882) Thrombocytopenia (D69.6) Active confirmed Problem Vitamin B12 deficiency (non anemic) (14958029) B12 deficiency (E53.8) Active confirmed Problem Dysarthria (0308287) Dysarthria (R47.1) Active confirmed Problem Degeneration of cervical intervertebral disc (58001155) Degenerative cervical disc (M50.30) Active confirmed Problem Neutropenia (572024308) Neutropenia (D70.9) Active confirmed Problem Pain in left foot (385436729934426) Left foot pain (M79.672) Active confirmed Problem Leukopenia (73815593) Leukopenia (D72.819) Active confirmed Problem Obstructive sleep apnea syndrome (72075717) Moderate obstructive sleep apnea (G47.33) Active confirmed Problem Asthma without status asthmaticus (69072534) AB (asthmatic bronchitis) (J45.909) Active confirmed Problem Seborrheic keratosis (17545850) Keratosis, seborrheic (L82.1) Active confirmed Problem Hypothyroidism (08209174) Hypothyroidism, unspecified type (E03.9) Active confirmed Problem Shoulder impingement syndrome (559983601) Shoulder impingement syndrome (M75.40) Active confirmed Problem Vitamin B deficiency (12434386) Deficiency of vitamin B12 (E53.8) Active confirmed Problem Accelerated essential hypertension (86138087) Accelerated essential hypertension (I10) Active confirmed Problem Attention deficit disorder (61138717) ADD (attention deficit disorder) (F98.8) Active confirmed Problem Arthritis of both knees (6768656289370298) Arthritis of both knees (M17.0) Active confirmed Problem Osteoarthritis of knee (998247307) Osteoarthritis of knee, unilateral (M17.10) Active confirmed Problem Diastolic heart failure (826821228) CHF (congestive heart failure), NYHA class I, unspecified failure chronicity, diastolic (I50.30) Active confirmed Problem Low back pain (089789373) Low back pain, unspecified (M54.50) Active confirmed Vital Signs Blood pressure diastolic 90 mm Hg 08/13/2024 Height 66.5 in 04/10/2025 Blood pressure systolic 134 mm Hg 08/13/2024 Weight 183.4 lbs 08/13/2024 BMI 29.15 kg/m2 08/13/2024 Procedures Procedure Date Ordered Date Performed Result Body Sit e Colonoscopy 05/29/2024 Normal Encounters Encounter Location Date Provider Diagnosis [facility] [address] [place] [address] 10/04/2024 Nabeel Hendrickson Accelerated essentia l hypertension I10 and Leukopenia D72.819 [facility] [address] [place] [address] 10/07/2024 Nabeel Hendrickson [facility] [address] [place] [address] 10/09/2024 Nabeel Hendrickson [facility] [address] [place] [address] 07/15/2024 Nabeel Hendrickson B12 deficiency E53.8 [facility] [address] [place] [address] 09/12/2024 Nabeel Hoy B12 deficiency E53.8 [facility] [address] [facility] [place] [address] 10/08/2024 Nabeel Hoy B12 deficiency E53.8 [facility] [address] [facility] [place] [address] 11/05/2024 Nabeel Hoy Deficiency of vitami n B12 E53.8 [facility] [address] [facility] [place] [address] 11/25/2024 Nabeel Hoy Deficiency of vitami n B12 E53.8 [facility] [address] [place] [address] 08/13/2024 Nabeel Hoy B12 deficiency E53.8 and Foreign body (FB) in soft tissue M79.5 [facility] [address] [facility] [place] [address] 01/07/2025 Nabeel Hoy B12 deficiency E53.8 [facility] [address] [facility] [place] [address] 02/06/2025 Nabeel Hoy Deficiency of vitami n B12 E53.8 [facility] [address] [facility] [place] [address] 03/13/2025 Nabeel Hoy Deficiency of vitami n B12 E53.8 [facility] [address] [facility] [place] [address] 04/10/2025 Nabeel Hoy Deficiency of vitami n B12 E53.8 [facility] [address] [facility] [place] [address] 05/12/2025 Nabeel Hoy B12 deficiency E53.8 [facility] [address] [place] [facility] [place] [address] 01/21/2025 Tracy Griffin Assessments Encounter Date Diagnosis (ICD Code) Assessment [...] 05/12/2025 B12 deficiency (ICD-10 - E53.8) 10/04/2024 Accelerated essential hypertension (ICD-10 - I10) 10/04/2024 Leukopenia (ICD-10 - D72.819) Plan Of Treatment Pending Test Test Name [...] (HIPS,PELVIS,SPINE ) 03/13/2023 TAYLOR Ankle Brachial Index (44822) 024 CBC AUTO DIFF 09/05/2023 CULTURE URINE [...] 2V or > 03/13/2023 U24 Creatinine 07/07/2023 Next Appt Details Provider Name:Nabeel Hendrickson, 10:00:00 AM, [address] [facility] [place], [address], Provider Name:Nabeel Hendrickson, 09:00:00 AM, [address] [place], [address], Provider Name:Tracy Griffin , 07/29/2025 11:30:00 AM, [address] [place], [address], Insurance Providers Payer Name Payer Address Payer Phone Subscriber Number Group Number Insured Name Patient Relationship to Insured Coverage Start Date Coverage End Date [employer]M ACCESS PPO PLUS LOCAL PLAN [address] [place] [address] [id number] Saira Lacey Spouse - patient is the spouse of the insured 3 MEDICARE [place] [address] [address] [place] [address] [id number] King Add[place] Self - patient is the [...] with patient surviving Surgical History Surgery Date(Month/Year) Fusion Cervical Spine right shoulder left knee replacement Left knee replacement Left inguinal hernia repair neck surgery hernia repair Right Labrum repair JAMIN 07/11/23 Colonoscopy 05/29/24
--- OUTSIDE RECORDS SUMMARY | 2025-05-29 09:41 | XMS_ITS | Clinical Summary ---
Author Organization [facility] Address [address] [place] [address] Care Team Providers Care Golf Course Assistant Name Role Phone Ryan Hendrickson MD Primary Care Provider [phone] Allergies No known active allergies Medications ibuprofen [...] ORAL) Take by mouth. 08/31/20 21 Active Prosper Aspartate 20 mg cap Take 1 capsule by mouth once daily. Active Vit [id number]-B6 409-6-227-2-2 mg/mL soln Refill(s) 0 05/07/20 19 Active [...] is lower risk 8 04/26/2023 Data from: https://www.neighborhoodatlas.medicine.[facility].edu/. Last address used for calculation [address] [place] [address] 04/26/2023 Sex and Gender Information Value Date [...] BASIC METABOLIC PNL (12/04/2017 3:22 PM EDT) [facility] Glucose 74 74 - 99 mg/dL 12/05/2017 10:35 AM EDT [facility] Comment: The [place] Diabetes Association (ADA) provides guidance for cutoff [...] Standards of Medical Care in Diabetes 2016, [place] Diabetes Association. Diabetes Care. 2016.39(Suppl 1). BUN 21 9 - 24 mg/dL 12/05/2017 10:35 AM [facility] Creatinine 1.16 0.73 - 1.22 mg/dL 12/05/2017 10:35 AM [facility] Sodium 139 136 - 144 mmol/L 12/05/2017 10:35 AM [facility] Potassium 4.6 3.7 - 5.1 mmol/L 12/05/2017 10:35 AM [facility] Chloride 101 97 - 105 mmol/L 12/05/2017 10:35 AM [facility] CO2 23 22 - 30 mmol/L 12/05/2017 10:35 AM [facility] Anion Gap 15 9 - 18 mmol/L 12/05/2017 10:35 AM [facility] Calcium 10.1 8.5 - 10.2 mg/dL 12/05/2017 10:35 AM [facility] eGFR- >60 12/05/2017 10:35 AM [facility] eGFR-All Other Races >60 . 12/05/2017 10:35 AM [facility] Comment: eGFR (Estimated GFR) Units of [...] PM EDT 12/04/2017 3:24 PM EDT [facility] Final Result [facility] [address] [place] [address] from Last 3 Months or Most Recently Relevant to Health Maintenance Insurance MEDICARE Member Subscriber Plan / Payer (Ef fective 2013-Present) Name:Vianey Lacey Member ID:[id number] Relation to Subscriber:Self Name:AbhijitVianey Subscriber ID:[id number] Payer ID:Not on file Group ID:Not on file Type:Medicare Address: [facility] [place] [id number] ACCESS PPO Care Teams Golf Course Assistant Relationship Specialty Start Date End Date Ryan Hendrickson MD PCP - General Family Medicine 12/04/17
--- OUTSIDE RECORDS SUMMARY | 2025-05-29 09:41 | XMS_ITS | Clinical Summary ---
Author Organization Pervacio tem Address [id number] [address] [place] [address] Care Team Providers Care Drafter Directional Survey Name Role Phone Ryan Hendrickson MD Primary Care Provider [phone] Allergies No known active allergies Medications liothyronine [...] 09/05/2016 Primary osteoarthritis of right knee 09/02/2016 Family History Medical History Relation Name Comments [...] Joy O L ynn Cancer Mother Joy Landa ynn Depression Mother Joy Landa ynn Heart disease Mother Joy Doshi L ynn Lung cancer Mother Joy Doshi L ynn Anesthesia problems Neg Hx Relation Name Status Comments Brother Valdo reza Father Bear Landa ynkechi Mother Joy Landa ynn Social History Tobacco Use Types Packs/Day [...] [facility] On [address] [address] 08/06/2025 10:00 AM EST Hospital Encounter [facility] - Surgery [address] [place] [address] Alf Anthony MD [address] [place] [address], [place] [address] 08/06/2025 10:00 AM EST - 08/06/2025 12:30 PM EST Surgery [facility] - Surgery [address] [facility] [place] [address] Alf Anthony MD [address] [address] [employer]PLAC[employer] TOTAL JOINT KNEE [02418 (CPT )] Scheduled Procedures Name Priority Associated [...] Margaret Quintan[employer] Implanted Type Area Manager Diesel Device Identifier Shelf Expiration Date Model / Serial / Lot Brng Tib [id number] 0d Kn Ant - [id number] Implanted:Qty: 1 on 09/05/2016 by Alf Anthony MD at [facility] Bearing Left: Knee Biomet 08/24/2021 [id number] / / [id number] Cement Bn Palacos Radpq 40g Rpl [id number] - [id number] Implanted:Qty: 2 on 09/05/2016 by Alf Anthony MD at [facility] Cement Left: Knee Walter [employer] 04/24/2021 [id number] [id number] / / [id number] Ty Tib 79mm Cocr Kn I Beam - [id number] Implanted:Qty: 1 on 09/05/2016 by Alf Anthony MD at [facility] Orthopedic Implant Left: Knee Biomet 07/06/2026 [id number] / / [id number] Cmpt Fem Kn Lt 70mm Cr Cmnt - [id number] Implanted:Qty: 1 on 09/05/2016 by Alf Anthony MD at [facility] Orthopedic Implant Left: Knee [employer]omet 07/27/2026 [id number] / / [id number] Cmpt Ptlr Thn 34mm 3 Pg Kn Ser - [id number] Implanted:Qty: 1 on 09/05/2016 by Alf Anthony MD at [facility] Orthopedic Implant Left: Knee [employer]omet 08/25/2021 [id number] / / [id number] Additional Health Concerns Active Problems Noted Date Diagnosed Date Autogenerated Problem 02/25/2025 Insurance MEDICARE IVETTE Advance Directives * Full Code (Latest Code Status on File) Date Activated Date Inactivated Comments 09/05/2016 8:43 PM 09/08/2016 4:31 PM Care Teams Drafter Directional Survey Relationship Specialty Start Date End Date Ryan Hendrickson MD PCP - General 07/05/16
--- OUTSIDE RECORDS SUMMARY | 2025-05-29 09:41 | XMS_ITS | Clinical Summary ---
Author Organization [facility] Address [address] [place] [address] Care Team Providers Care Classification Case Manager Name Role Phone Ryan Hendrickson MD Primary Care Provider Allergies No known active allergies Medications liothyronine [...] days. 12/26/19 18 Active vitamin B complex 578-8-588-2-2 mg/mL injection Inject into the shoulder, thigh, [...] Type Department Care Team Description 05/08/2025 Refill [facility] [address] [place] [address] Jeovanny Garcia MD Paroxysmal atrial fibrillation (CMS/HCC) 03/11/2025 Refill [facility] [address] [facility] [address] Lakshmi Presley MA 03/04/2025 Telephone [place] [address] [facility] [address] Renetta Adam MA 03/04/2025 Orders Only [place] [address] [facility] [address] Renetta Adam MA Encounter for pre-operative examination; Encounter for preprocedural cardiovascular examination from Last 3 Months Family History Medical [...] = 0.6 oz pur e alcohol) occasional [facility] Utilities Answer Date Recorded In the past 12 months has th e [employer], gas, oil, or water [employer] threatened to shut off services in your [...] place to sleep or slept in a penitentiary (including now)? No 11/16/2023 Hunger Vital Sign [...] Description 07/24/2025 11:00 AM EDT Office Visit [facility] [address] [place] [address] George Loza MD [address] [place] [address] Health Maintenance Due Date Last Done Comments CT Colonography 1959 FIT-DNA 1959 FIT 1959 FOBT 1959 Medicare Annual Wellness (AWV) 1959 Sigmoidoscopy 1959 Depression Screening 1971 Pneumococcal Vaccine: 50+ Years (1 of 2 - PCV) 1978 Adult Tetanus 1981 Fall Risk Screening 02/22/2024 COVID-19 Vaccine ( season) 2025 07/26/2022, 09/20/2021, 12/22/2020, Additional history exists Influenza Vaccine (#1) 2025 , 07/25/2022, 08/10/2021, Additional history exists Colonoscopy 05/29/2034 [...] on patient's age to complete this topic Insurance [facility] MEDIC[facility] Member Subscriber Plan / Payer (Ef fective 2013-Present) Name:King Lacey Member ID:[id number] Relation to Subscriber:Self Name:King Lacey Subscriber ID:[id number] Payer ID:[id number] Group ID:Not on file Type:Medicare Address: [address] [place] [address] [id number] Advance Directives * Full Code (Latest Code Status on File) Date Activated Date Inactivated Comments 11/16/2023 4:20 PM 11/17/2023 8:11 PM Care Teams Classification Case Manager Relationship Specialty Start Date End Date Ryan Hendrickson MD [address] [facility] [address] [address] PCP - General 06/28/23
--- OUTSIDE RECORDS SUMMARY | 2025-05-29 09:41 | XMS_ITS | Encounter Summary ---
Author Organization [facility] Address [address] [id number] Care Team Providers Care Streetcar Motorman Name Role Phone Jovita Virk MD Unavailable Encounter Details Date Type Department Care Team (Late st Contact Info) Description 12/23/2021 Abstract PATIENT ACUITY SCORE Social History Tobacco Use Types Packs/Day Years Used Date Smoking Tobacco: Never Smokeless Tobacco: Never Alcohol Use Standard Drinks/Week Comments Not Asked 0 (1 standard drink = 0.6 oz pur e alcohol) Substance Use Types Use/Week Comments Not Asked Sex and Gender Information Value Date Recorded Sex Assigned at Not on file Legal Sex Male 12:24 PM EST Gender Identity Not on file Sexual Orientation Not on file documented as of this encounter Functional Status * Gait/Transfer impairment? Answer Date of Assessment Author Yes 06/09/2011 6:47 PM EDT Polly Carvalho * ADL impairment? Answer Date of Assessment Author Yes 06/09/2011 6:47 PM EDT Polly Carvalho documented as of this encounter Plan of Treatment Not on file documented as of this encounter Visit Diagnoses Not on filedocumented in this encounter Care Teams Streetcar Motorman Relationship Specialty Start Date End Date Jovita Virk MD [address] [place] [address] Physician Physical Medicine & Rehab/PM&R 06/30/20 documented as of this encounter
--- OUTSIDE RECORDS SUMMARY | 2025-05-29 09:42 | XMS_ITS | Encounter Summary ---
Author Organization [facility] Address [address] [facility] [place] [address] Care Team Providers Care Material Controller Name Role Phone Ryan Hendrickson MD Primary Care Provider [phone] Reason for Visit * Reason Comments Med Refill Encounter Details Date Type Department Care Team (Late st Contact Info) Description 05/18/2025 Refill [facility] [address] [place] [address] Román Dawson MD [address] [place] [address] Sarah's disease Social History Tobacco Use Types Packs/Day Years [...] on file documented as of this encounter Miscellaneous Notes * Telephone Encounter - Trixie Lawrence LPN - 05/19/2025 10:26 AM EDT MEDICATION SENT TO PHARMACY. documented in this encounter Plan of Treatment Upcoming Encounters Date Type Department Care Team (Late st Contact Info) Description 06/11/2025 10:30 AM EDT Office Visit [facility] [address] [place] [address] Román Dawson MD [address] [place] [address] documented as of this encounter Visit Diagnoses Diagnosis Sarah's disease Chronic lymphocytic thyroiditis documented in this encounter Care Teams Material Controller Relationship Specialty Start Date End Date Ryan Hendrickson MD PCP - General Family Medicine 05/13/24 documented as of this encounter
--- OUTSIDE RECORDS SUMMARY | 2025-05-29 09:42 | XMS_ITS | Clinical Summary ---
Author Organization [facility] Address [address] [facility] [place] [address] Care Team Providers Care Buffing Wheel Raker Name Role Phone Ryan Hendrickson MD Primary Care Provider [phone] Allergies Active Allergy Reactions Criticality Noted Date [...] Take 0.4 mg by mouth Daily Active cholecalcifero l (Vitamin D-3) 125 MCG (5000 UT) tablet Take 5,000 Units by mouth Daily Active hydrALAZINE (Apresoline) 25 MG tablet Take 25 mg by mouth in the morning and 25 mg in the evening and 25 mg before bedtime. Active levothyroxine (Synthroid, Levoxyl) 100 MCG tabletIndicati ons:Sarah' s disease TAKE 1 TABLET BY MOUTH ONCE EVERY MORNING BEFORE MEALS 90 tablet 3 5 Active levothyroxine (Synthroid, Levoxyl) 100 MCG tabletIndicati ons:Sarah' s disease Take 1 tablet (100 mcg) by mouth in the morning. Take before meals. 90 tablet 3 4 05/19/20 25 Discontinued Active Problems Problem Noted Date Diagnosed Date NANCY (obstructive sleep apnea) 07/08/2024 PLMD (periodic limb movement disorder) Hypersomnia 07/08/2024 Paroxysmal atrial fibrillation 07/08/2024 Autoimmune thyroiditis 05/29/2024 Unspecified atrial fibrillation 05/29/2024 Resolved Problems Problem Noted Date Diagnosed Date Resolved Date Hypothyroidism, unspecified 02/28/2024 02/28/2024 Encounters Date Type Department Care Team Description 05/18/2025 Refill [facility] [place] [facility] [address] [place] [address] Román Dawson MD Sarah's disease from Last 3 Months Family History Medical [...] [facility] [address] [place] [address] Román Dawson MD [address] [place] [address] Health Maintenance Due Date Last Done Comments CT Colonography 1959 FIT-DNA 1959 FIT 1959 FOBT 1959 Sigmoidoscopy 1959 Influenza Vaccine (#1) 2025 3, 07/25/2022, 08/10/2021, Additional history exists Colonoscopy 05/29/2034 05/29/2024 Colorectal Cancer Screening 05/29/2034 Pneumococcal Vaccine: 65+ Years Completed 4 Insurance [facility] MEDICARE Care Teams Buffing Wheel Raker Relationship Specialty Start Date End Date Ryan Hendrickson MD PCP - General Family Medicine 05/13/24
--- OUTSIDE RECORDS SUMMARY | 2025-05-29 09:42 | XMS_ITS | Clinical Summary ---
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 30 Tab 30 06/27/2011 Active Ibuprofen (ADVIL ORAL) Take by mouth prn Active tamsulosin (FLOMAX) 0.4 MG capsule Take 1 Capsule by mouth daily. 30 Capsule 5 02/08/2017 Active levothyroxine (SYNTHROID) 150 MCG tablet Take 1 Tablet by mouth daily. 30 Tablet 3 02/08/2017 Active liothyronine (CYTOMEL) 25 MCG tablet Take 1 Tablet by mouth daily. 30 Tablet 3 02/08/2017 Active Ascorbic Acid (VITAMIN C) 100 MG TABS Take by mouth daily. Active testosterone cypionate (DEPO-TESTOSTERO NE) 200 MG/ML injection Inject 200 mg into the muscle once a month. 12/10/2018 Active Haswell-3 Fatty Acids (FISH OIL) 1000 MG CAPS Take 1 Capsule by mouth daily. Active Nutritional Supplements (CREATINE) 750 MG CAPS Take 1 Capsule by mouth daily. Active memantine (NAMENDA) 5 MG tablet Take 1 Tablet by mouth daily. 30 Tablet 3 07/20/2022 Active Ascorbic Acid (Vitamin C) 100 MG CHEW Vitamin C Active amantadine (SYMMETREL) 100 MG capsule TAKE 1 CAPSULE BY MOUTH EVERY DAY 90 Capsule 09/22/2023 Active Active Problems Problem Noted Date Diagnosed Date A-fib 05/29/2019 Eczema 05/29/2019 Arthritis of both knees 05/29/2019 Cervical disc disease 05/29/2019 Spinal stenosis 05/29/2019 Sleep apnea 05/29/2019 B12 deficiency 12/21/2017 Absolute anemia 12/06/2017 Thrombocytopenia 12/04/2017 Atrial fibrillation 11/30/2016 Status post total left knee replacement 10/13/19 17 Primary osteoarthritis of right knee 09/02/2016 Traumatic brain injury 02/23/2016 Encounter for vocational therapy 08/24/2011 Specific academic or work inhibition as adjustme nt reaction 08/24/2011 Cognitive deficits 08/24/2011 Muscle weakness 07/29/2011 Encounter for occupational therapy 07/07/2011 Other physical therapy 07/05/2011 Lack of coordination 07/05/2011 Memory loss 07/05/2011 Attention or concentration deficit 07/05/2011 Frontal lobe and executive function deficit 06/25 Cognitive communication deficit 07/05/2011 Cervical vertebral fusion 06/28/2011 Overview (01/08/2019): History of Cervical vertebral fusion C5-C6 Hypothyroidism 06/28/2011 Traumatic cephalohematoma 06/28/2011 Amnesia 06/28/2011 Overview (01/08/2019): Post traumatic Amnesia Cervical spondylosis with myelopathy 10/13/2006 Viral warts 04/28/2005 Immunizations Immunization Administration Dates Next Due DTP (CVX=01) 09/04/2021 Influenza, Injectable, MDCK, Quadrivalent, Preservative Free (ERV=906) 08/10/2023,07/25/2022 Influenza, injectable, quadr ivalent, preservative free (EQH=871) 08/10/2021,06/30/2020 Moderna Monovalent (12+ yrs) COVID-19 vaccine, mRNA, spike protein, LNP, PF, 100 mcg/0.5 mL (ZXC=030) 07/26/2022 Pfizer Monovalent (12+ yrs) SARS-COV-2 (COVID-19) vaccine, mRNA, spike protein, LNP, pres. free, 30 mcg/0.3mL dose (XAC=109) 12/22/2020,11/30/2020 Zoster Recombinant (RZV,Shingles) (RPB=257) 01/2022,04/05/2022 Family History Medical History Relation Name Comments Cancer Father Skin, spleen Heart Disease Father Cancer Mother Breast, lung, b rain Heart Disease Mother Relation Name Status Comments Father Mother Social History Tobacco Use Types Packs/Day Years Used Date Smoking Tobacco: Never Smokeless Tobacco: Never Tobacco Cessation:Counseling Given: Not Answered Alcohol Use Standard Drinks/Week Comments Not Asked 0 (1 standard drink = 0.6 oz pur e alcohol) Humiliation, Afraid, Rape, and Kick questionnair e Answer Date Recorded Within the last year, have y ou been afraid of your partner or ex-partner? No 08/12/2022 Within the last year, have y ou been humiliated or emotionally abused in other ways by your partner or ex-partner? No Within the last year, have y ou been kicked, hit, slapped, or otherwise physically hurt by your partner or ex-partner? No 08/12/2022 Within the last year, have y ou been raped or forced to have any kind of sexual activity by your partner or ex-partner? No 08/12/2022 Social Connection and Isolation Panel [NHANES] A nswer Date Recorded In a typical week, how many times do you talk on the phone with family, friends, or neighbors? Never 08/12/2022 How often do you get togethe r with friends or relatives? Once a week 08/12/2022 How often do you attend amish or christianity serv ices? Patient declined 08/12/2022 Do you belong to any clubs o r organizations such as amish groups, unions, fraternal or athletic groups, or school groups? Patient declined 08/12/2022 How often do you attend meet ings of the clubs or organizations you belong to? Patient declined 08/12/2022 Are you , , di vorced, , never , or living with a partner? Patient declined 08/12/2022 Overall Financial Resource Strain (CARDIA) Answe r Date Recorded How hard is it for you to pa y for the very basics like food, housing, medical care, and heating? Patient declined 08/12/2022 [facility] - Occupational Stress Questionnaire Answer Date Recorded Do you feel stress - tense, restless, nervous, or anxious, or unable to sleep at night because your mind is troubled all the time - these days? Not at all 08/12/2022 Exercise Vital Sign Answer Date Recorde d On average, how many days pe r week do you engage in moderate to strenuous exercise (like a brisk walk)? Patient declined On average, how many minutes do you engage in exercise at this level? Patient declined 08/12/2022 Hunger Vital Sign Answer Date Recorded Within the past 12 months, y ou worried that your food would run out before you got the money to buy more. Never true 08/12/20 22 Within the past 12 months, t he food you bought just didn't last and you didn't have money to get more. Never true 08/12/2022 PRAPARE - Transportation Answer Date Re corded In the past 12 months, has l ack of transportation kept you from medical appointments or from getting medications? No 07/26 In the past 12 months, has l ack of transportation kept you from meetings, work, or from getting things needed for daily living? No 08/12/2022 Housing Stability Vital Sign Answer Girma e Recorded In the last 12 months, was t here a time when you were not able to pay the mortgage or rent on time? No 08/12/2022 Number of Places Lived in the Last Year Not on f ile 08/12/2022 In the last 12 months, was t here a time when you did not have a steady place to sleep or slept in a half-way (including now)? No 08/12/2022 Education Answer Date Recorded What is the highest level of school you have completed or the highest degree you have received? 12th grade 08/12/2022 Substance Use Types Use/Week Comments Not Asked Sex and Gender Information Value Date Recorded Sex Assigned at Not on file Legal Sex Male 12:24 PM EST Gender Identity Not on file Sexual Orientation Not on file Last Filed Vital Signs Vital Sign Reading Time Taken Comments Blood Pressure 138/86 07/20/2022 2:11 PM EDT Pulse 98 07/20/2022 2:11 PM EDT Temperature 36.7 C (98 F) 07/20/2022 2:11 PM EDT Respiratory Rate 14 07/20/2022 2:11 PM EDT Oxygen Saturation 100% 07/20/2022 2:11 PM EDT Inhaled Oxygen Concentration - - Weight 83.9 kg (185 lb) 07/20/2022 2:11 PM EDT Height 170.2 cm (5' 7 ) 12/06/2017 8:56 AM EDT Body Mass Index 28.98 12/06/2017 8:56 AM EDT Plan of Treatment Health Maintenance Due Date Last Done Comments Colonoscopy 1960 Hepatitis C Antibody 1977 Tdap Booster 1977 Hepatitis A (HAV) Vaccine (optional start 19+ years) 1978 CRC Screening 02/22/2004 Cologuard (Stool DNA) 02/22/2004 FIT 02/22/2004 Pneumococcal Vaccine(s) (50+ yrs) (1 of 1 - PCV) 2009 TSH 06/10/2012 06/10/2011 Annual Wellness Visit (G0438) 11/23/2014 Hepatitis B (HBV) Vaccine (optional start 60+ years) 2019 COVID-19 Vaccine (2024-2 6 season) 2025 07/26/2022, 09/20/2021, 12/22/2020, Additional history exists Influenza Vaccine (#1) 2025 , 07/25/2022, 08/10/2021, Additional history exists Cholesterol 11/30/2025 11/30/2020, 09/05/2016 RSV vaccine (adult) (1 - 1-d ose 75+ series) 2034 Shingles (RZV) Vaccine Completed 08/29/2022, 2021 Procedures Procedure Name Priority Date/Time Associated Diagnosis Comments TSH Routine 06/10/2011 1:06 AM EDT from Last 3 Months or Most Recently Relevant to Health Maintenance Results * TSH, HIGH SENSITIVITY (06/10/2011 1:06 AM EDT) TSH (high sens.) 4.562 0.300 - 5.600 uIU/mL [facility] Comment:Note: New reference range effective 2010 Blood, venous stick BLOOD SPECIMEN / Unknown 06/10/2011 1:06 AM EDT Jessica Mancia MD [facility] Final Result [facility] [address] [phone] from Last 3 Months or Most Recently Relevant to Health Maintenance Insurance MEDICARE [facility] Advance Directives * Full Code (Latest Code Status on File) Date Activated Date Inactivated Comments 06/09/2011 2:48 PM 06/28/2011 2:29 PM * Full Code Date Activated Date Inactivated Comments 06/05/2011 4:23 AM 06/09/2011 2:48 PM Care Teams Imitation Marble Mechanic Relationship Specialty Start Date End Date Jovita Virk MD [address] [place] [id number] Physician Physical Medicine & Rehab/PM&R 06/30/20
--- OUTSIDE RECORDS SUMMARY | 2025-05-29 09:42 | XMS_ITS | Encounter Summary ---
Author Organization [facility] Address [address] [id number] Care Team Providers Care Teaching Associate Name Role Phone Jovita Virk MD Unavailable Encounter Details Date Type Department Care Team (Late st Contact Info) Description 09/24/2021 Abstract PATIENT ACUITY SCORE Social History Tobacco [...] on filedocumented in this encounter Care Teams Teaching Associate Relationship Specialty Start Date End Date Jovita Virk MD [address] [place] [address] Physician Physical Medicine & Rehab/PM&R 06/30/20 documented as of this encounter
--- NOTE | 2025-05-29 09:45 | NM_ITS ---
Patient Name: VIANEY DAVIS MR#: [id number] : 1960 Exam Date: 05/29/2025 Ordering Doctor: DR JOE LOZA M.D. RADIOLOGY REPORT PROCEDURE: NM ANISA PERF SPECT REST STR COMPARISON: None. INDICATIONS: PRE PROCEDURE CARDIOVASCULAR EXAM TECHNIQUE: Exam Description: Stress/Rest one day protocol gated SPECT Rest Imagin.9 mCi Tc-99m Cardiolite IV on 05/29/2025 Stress Imaging 30.6 mCi Tc-99m Cardiolite IV on 05/29/2025 Exercise Protocol: 0.4 mg Lexiscan given IV Heart Rate (bpm): Rest: 44 Max: 75 PMHR: 48 Blood Pressure: Rest: 117/68 Max: 135/75 Symptoms: Rest and peak stress ECG findings were pending, and the exercise portion of the study was pending per attending physician [facility]. For more details, please see separate cardiac stress test report. FINDINGS: QUALITY OF STUDY: Good PERFUSION DEFECT: None LOCATION: N/A SIZE: N/A SEVERITY: N/A TYPE: N/A WALL MOTION: Normal wall motion LV SIZE: 115 mL. TID / TCD: 1.0 LVEF: Calculated EF 65%. SUMMARY: Myocardial perfusion imaging study is normal CONCLUSION: 1. Myocardial perfusion is normal 2. Global left ventricular systolic function is normal 3. No significant transient ischemic dilatation Dictated by: Joe Loza M.D. on 05/29/2025 at 15:51 Approved by: Joe Loza M.D. on 05/29/2025 at 15:53
--- OUTSIDE RECORDS SUMMARY | 2025-05-29 09:46 | XMS_ITS | CCD ---
Author Organization [facility] Care Team Providers Care Solid Waste Manager Name Role Phone Ilda Hendrickson Primary Care Physician Jovita Virk MD Unavailable Jovita Virk MD Unavailable CISCO Flores, [...] HOY ., DR GONSALES Primary Care Unavailable CANTU JR ., DR SAEED Landa Admitting Unavaila ble CANTU JR ., DR SAEED Landa Attending Unavaila ble [...] Unavailable Ilda Hendrickson MD Primary Care Provider [phone] ILDA HENDRICKSON Primary Care Unavailable SHAWANDA HERNNADEZ Attending Unavailable Sandoval Knight Unavailable MD Ilda Hendrickson Primary Care Provider [phone] MD Tracy Griffin Attending Provider Ilda Hendrickson MD Primary Care Provider [phone] ROMÁN HOANG Attending Unavailable SAGE CAM Attending Unavailable Unavailable Primary Care Provider Unavailabl Ilda Regan MD Primary Care Provider [phone] Shawanda MEJIA Attending Unavailable Vianey MENDOZA Attending Unavailable Vianey MENDOZA Attending Unavailable Vianey MENDOZA Attending Unavailable Shawanda MEJIA Attending Unavailable Shawanda MEJIA Attending Unavailable Ilda Hendrickson MD Primary Care Provider [phone] Ilda Hendrickson MD Primary Care Provider [phone] JOE WILLIAM Attending Unavailable BAKARI SCOTT Attending Unavailable KEYONNAETISCHOSMIN Attending Unavaila ble CISCO, ILDA M Referring Unavailable HOY, ILDA M Primary Care Unavailable FOETISCHOSMIN Attending Unavaila ble HODarwin, ILDA M Primary Care Unavailable HOY, ILDA M Referring Unavailable FOETISCHOSMIN Attending Unavaila ble HODarwin, ILDA M Primary Care Unavailable HOY, ILDA M Referring Unavailable FOETISCHOSMIN Referring Unavaila ble ILDA HENDRICKSON M Primary Care Unavailable Ilda Hendrickson MD Primary Care Provider [phone] Scot Hutchison MD Attending Provider [phone] Scot Hutchison II Attending Scot Wan II Admitting Ilda Frost Primary Care Unavailable Moose PRIETO, Jovita Unavailable Allergies Allergy Classification Reported Allergen(s) Allergy Type Date of Onset Reaction(s) Facility (6 sources) Ciprofloxacin; Translations: [ciprofloxacin] Drug Allergy 4 Patient reported problems (finding) [facility] [place] (1 source) Ciprofloxacin; Translations: [Cipro] Drug Allergy [facility] Repository (1 source) No Known Medication Allergies; Translations: [No Known Medication Allergies] Propensity to adverse reactions (disorder) [facility] Repository (1 source) Ciprofloxacin Drug Allergy 5 [facility] Repository Medications Current Medications Medication Drug Class(es) Dates Sig (Normalized) Sig (Original) acetaminophen 325 mg oral tablet (6 sources) Start: 06-27-2011 take 2 tablets by [...] MOUTH EVERY DAY 90 Capsule 09/22/2023 Active take 1 tablet by darren th every twenty-four hours Amantadine HCl 100 MG 1 tablet Orally Once a day Active End: 04-26-2023 AMANTADINE HCL ORAL Take by mouth. 0 04/26/2023 Discontinued (Course of therapy completed) Comment on above: Take 100 mg by mouth once daily. Take by mouth. apixaban 5 mg oral tablet (20 sources) Factor Xa Inhibitor Start: 06-27-2023 take 1 tablet by mouth twice daily Apixaban 5 mg tablet Active 5 MG PO Twice daily June 06, 2024 12:00am Complies with drug therapy End: 06-12-2024 take 1 tablet by mouth [...] tablet Daily, Refills(s) 0 0 05/07/2019 Active Ascorbic Acid (V itamin C) 100 MG CHEW Vitamin C Active End: 02-18-2025 take 1 tablet by mouth once daily ascorbic acid, vitamin C, (ascorbic acid with steph hips) 500 mg tablet Take 500 mg by mouth daily. 02/18/2025 Discontinued (Therapy completed) take 1 tablet by darren th once daily ascorbic acid (Vitamin C) 1000 MG ER tablet Take 1,000 mg by mouth Daily Active End: 04-26-2023 ASCORBIC ACID (VITAMIN C [...] q4wk, # 10 mL, Refills(s) 1, Pharmacy: [facility]/pharmacy #[id number], 167, cm, 10/05/21 11:32:00 [...] / eicosapentaenoic acid 180 mg oral capsule (6 sources) take 1 capsule by mouth once daily Goodman-3 Fatty Acids (FISH OIL) 1000 MG CAPS Take 1 Capsule by mouth daily. Active DOCOSAHEXANOIC ACID/EPA (FISH OIL ORAL) (4 [...] Refill(s) 0 Start Date: 05/07/19 Status: Ordered Ibuprofen (7 sources) Nonsteroidal Anti-inflammatory Drug Ibuprofen (ADVIL ORAL) Take by mouth prn Active take 4 tablets by mouth twice da halina ibuprofen (ADVIL) 200 mg tablet Take 800 [...] End: 06-12-2024 take 1 tablet by mouth once daily Levothyroxine 100 mcg tablet Active 100 MCG PO Daily June 06, 2024 12:00am Complies with drug therapy Start: 05-07-2019 take 1 tablet by darren [...] oral tablet (20 sources) l-Triiodothyroni ne Start: 06-06-2024 take 12.5 ug by mouth [...] 3 02/08/2017 Active take 0.5 tablet by [facility] once daily liothyronine (Cytomel) 25 MCG tablet Take 25 mcg by mouth Daily Take 0.5 tabs po qd Active Comment on above: Take 25 mcg by mouth once daily. lisinopril 10 mg oral tablet (2 sources) Angiotensin Converting Enzyme Inhibitor Start: 5 Lisinopril 10 mg tablet Active MG PO May 13, 2025 12:00am Complies with drug therapy lithium aspartate 20 mg oral capsule (7 sources) take 1 capsule by mouth once daily Nutritional Supplements (CREATINE) 750 MG CAPS Take 1 Capsule by mouth daily. Active take 1 capsule by mouth once darius ly [place] Aspartate 20 mg cap Take 1 capsule by mouth once daily. 0 Active Comment on above: Take 1 capsule by mo [facility] once daily. memantine hydrochloride 5 mg oral tablet (6 sources) X-vwzpvc-E-aspartat e Receptor Antagonist Start: 2 End: 2 [...] day(s), # 180 cap(s), Refills(s) 3, Pharmacy: [facility]/pharmacy #[id number], 167, cm, 10/05/21 11:32:00 EST, Height/Length Dosing, 83, kg, 10/05/21 11:32:00 EST, Weight Dosing Start Date: 11/24/21 Stop Date: 11/19/22 Status: Ordered Start: 02-08-2017 take 1 capsule by mo uth once daily tamsulosin (FLOMAX) 0.4 MG capsule Take 1 Capsule by mouth daily. 30 Capsule 5 02/08/2017 Active take 1 capsule by mo ut every twenty-four hours in the morning tamsulosin (FLOMAX) 0.4 mg capsule,extended release 24hr Take 1 capsule (0.4 mg total) by mouth in the morning. Active Comment on above: 0.4 mg once daily. testosterone cypionate 200 mg/ml injectable solution (18 sources) Androgen Start: 05-03-2023 Depo-Testosterone 200 mg/mL intramuscular solution 300 mg, IntraMuscular, q4wk, # 10 mL, Refills(s) 1, Pharmacy: [facility]/pharmacy #[id number], 170, cm, 12/02/22 8:17:00 EST, Height/Length Dosing, 83.2, kg, 12/02/22 8:17:00 EST, Weight Dosing Start Date: 05/03/23 Status: Ordered Start: 09-07-2022 Depo-Testoster one 200 mg/mL intramuscular solution 300 mg, IntraMuscular, q4wk, # 10 mL, Refills(s) 1, Pharmacy: [facility]/pharmacy #[id number], 167, cm, 10/05/21 11:32:00 EST, Height/Length Dosing, 83, kg, 05/10/22 10:08:00 EDT, Weight Dosing Start Date: 09/07/22 Status: Ordered Start: 01-04-2022 Depo-Testoster one 200 mg/mL intramuscular solution 300 mg, IntraMuscular, q4wk, # 10 mL, Refills(s) 1, Pharmacy: [facility]/pharmacy #[id number], 167, cm, 10/05/21 11:32:00 EST, Height/Length Dosing, 83, kg, 10/05/21 11:32:00 EST, Weight Dosing Start Date: 01/04/22 Status: Ordered Start: 12-10-2018 testosterone c ypionate (DEPO-TESTOSTERONE) 200 MG/ML injection Inject 200 mg into the muscle once a month. 12/10/2018 Active Testosterone Cyp ionate 200 MG/ML [...] (1 source) Corticosteroid Start: 02-19-20 End: 02-19-20 25 6 mg, intra-articular, One-Time Injection, Starting on Mon02/18/25 at 1056, For 1 dose Bupivacaine (4 sources) Amide Local Anesthetic Start: 02-19-20 End: 02-19-20 25 30 mg, intra-articular, One-Time Injection, Starting [...] TAKE ONE TABLET BY M OUTH DAILY hydrALAZINE hydrochloride 25 mg oral tablet (14 sources) Arteriolar Vasodilator Start: 05-07-2024 End: 05-13-2025 take 1 tablet by mouth three times daily Hydralazine 25 mg tablet Discontinued 25 MG PO Three times daily June 06, 2024 12:00am May 13, 2025 11:22am omega-3 fatty acids (FISH OIL CONCENTRATE) 1,000 mg cap (1 source) take 1 capsule by mouth twice daily omega-3 fatty acids (FISH OIL CONCENTRATE) 1,000 mg cap Take 2 g by mouth twice daily. 0 Active Comment on above: Take 2 g by mouth tw ice daily. omega-3s/dha/epa/fis h oil/D3 (VITAMIN-D + OMEGA-3 ORAL) (1 source) Start: 08-31-2021 omega-3s/dha/epa/f john oil/D3 (VITAMIN-D + OMEGA-3 ORAL) Take by mouth. 0 08/31/2021 Active Comment on above: Take by mouth. 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] Onset: 1 08-24-2011 Chronic Asthma (1 source) Asthmatic bronchitis; Translations: [Unspecified asthma, uncomplicated] 11-30-2017 Chronic Cardiac dysrhythmias (20 sources) Atrial fibrillation; Translations: [Unspecified atrial fibrillation] Onset: 6 05-29-2019 Chronic Chronic kidney disease (5 sources) Chronic kidney disease stage 3; Translations: [Chronic kidney disease, stage III (moderate)] 06-05-2024 Chronic Coagulation and hemorrhagic disorders (14 sources) Platelet count below reference range; Translations: [...] disorder; Translations: [Essential (primary) hypertension] Onset: 5 08-05-2024 Chronic Genitourinary symptoms and ill-defined conditions (5 sources) Urge incontinence; Translations: [Urge incontinence of urine] Onset: 4 Chronic Genitourinary symptoms and ill-defined conditions (20 sources) Nocturia; Translations: [Poor stream of urine] 03-14-2019 Episodic Hyperplasia of prostate (20 sources) Benign prostatic hypertrophy with outflow obstruction; Translations: [Benign prostatic hyperplasia with lower urinary tract symptoms] Onset: 2 03-14-2019 Chronic Hypertension with complications and secondary hypertension (10 sources) Chronic kidney disease due to hypertension; Translations: [Hypertensive chronic kidney disease with stage 1 through stage 4 chronic kidney disease, or unspecified chronic kidney disease] Onset: 4 Chronic Miscellaneous mental health disorders (1 source) Unspecified persistent mental disorders due to conditions classified elsewhere Onset: 1 08-24-2011 Chronic Open wounds of extremities (1 source) Puncture wound of thumb of left hand; Translations: [Puncture wound with foreign body of left thumb without damage to nail, initial encounter] Onset: 4 Episodic Osteoarthritis (20 sources) Bilateral arthritis of knees; Translations: [Bilateral primary osteoarthritis of knee] Onset: 6 05-29-2019 Chronic Osteoporosis (2 sources) Osteoporosis; Translations: [Age-related osteoporosis without current pathological fracture] 05-13-2025 Chronic Other aftercare (4 sources) Long-term current use of 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; Translations: [intermediate designer (current) use of 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s] Onset: 4 Episodic Other aftercare (2 sources) Long-term current use of drug therapy; Translations: [Other long term care social worker (current) drug therapy] 05-13-2025 Episodic Other and ill-defined cerebrovascular disease (3 sources) Cerebrovascular disease 04-29-2024 Chronic Other circulatory disease (1 source) Orthostatic hypotension; Translations: [Orthostatic hypotension] 11-30-2017 Episodic Other circulatory disease (2 sources) Personal history of other diseases of the circulatory system; Translations: [Personal history of other diseases of the circulatory system] Onset: 4 Episodic Other connective tissue disease (9 sources) History of total knee arthroplasty; Translations: [...] Episodic Other diseases of kidney and ureters (3 sources) Cyst of kidney; Translations: [Cyst of kidney, [...] Onset: 3 Chronic Other nervous system disorders (5 sources) Disturbance of attention; Translations: [Attention and concentration deficit] Onset: 1 07-05-2011 Chronic Other nervous system disorders (5 sources) Impaired executive functioning; Translations: [Frontal lobe and executive function deficit] Onset: 1 07-05-2011 Chronic Other nervous system disorders (5 sources) Cognitive deficit in communication skills; Translations: [...] lower leg Onset: 9 05-29-2019 Chronic Other non-traumatic joint disorders (1 source) Pain in right knee; Translations: [Pain in right knee] Onset: 5 Episodic Other nutritional; endocrine; and metabolic disorders (4 [...] for malignant neoplasm of colon done] Onset: Episodic Residual codes; unclassified (9 sources) Sleep apnea; Translations: [Sleep apnea, unspecified] Onset: 9 05-29-2019 Chronic Residual codes; unclassified (9 sources) Obstructive sleep apnea syndrome; Translations: [Obstructive [...] disorders; other back problems (15 sources) Cervical spondylosis; Translations: [Other spondylosis with myelopathy, cervical region] Onset: 7 10-13-2006 Chronic Thyroid disorders (20 sources) Hypothyroidism; Translations: [Hypothyroidism, unspecified] Onset: 1 Resolved: 4 06-28-2011 Chronic Unclassified (3 sources) Patient encounter status 05-07-2024 Unclassified (2 sources) Puncture wound of left thumb with foreign body 08-13-2024 Unclassified (2 sources) Other persistent atrial fibrillation; Translations: [Other persistent atrial fibrillation] Onset: 4 Past or Other Problems Problem Classification Problem Date Documented Date Episodic/Chronic Allergic reactions (10 sources) Eczema; Translations: [Dermatitis, unspecified] Onset: 05-29-2019 05-29-2019 Episodic Chronic kidney disease (1 source) Chronic kidney disease Deficiency and other anemia (6 sources) Anemia; Translations: [Anemia, unspecified] Onset: 12-06-2017 05-29-2019 Episodic Deficiency and other anemia (1 source) Anemia, unspecified Onset: 12-06-2017 05-29-2019 Episodic Intracranial injury (7 sources) Traumatic brain injury; Translations: [Unspecified intracranial injury with loss of consciousness of unspecified duration, initial encounter] Onset: 02-23-2016 02-23-2016 Episodic Nutritional deficiencies (10 sources) Cobalamin deficiency; Translations: [Deficiency of other specified B group vitamins] Onset: 12-21-2017 05-29-2019 Episodic Other aftercare (1 source) Care involving other physical therapy Onset: 07-05-2011 07-05-2011 Episodic Other aftercare (1 source) Encounter for occupational therapy Onset: 07-07-2011 07-07-2011 Episodic Other aftercare (1 source) Encounter for vocational therapy Onset: 08-24-2011 08-24-2011 Episodic Other connective tissue disease (5 sources) Muscle weakness; Translations: [Muscle weakness (generalized)] [...] 07-29-2011 07-29-2011 Episodic Other nervous system disorders (5 sources) Incoordination; Translations: [Unspecified lack of coordination] Onset: 07-05-2011 07-05-2011 Episodic Other nervous system disorders (5 sources) Impaired cognition; Translations: [Other symptoms and signs involving cognitive functions and awareness] Onset: 08-24-2011 08-24-2011 Episodic Other nervous system disorders (1 source) Lack of coordination Onset: 07-05-2011 07-05-2011 Episodic Other skin disorders (1 source) Vitiligo; Translations: [Vitiligo] Onset: 02-25-2005 02-25-2005 Episodic Rehabilitation care; fitting of prostheses; and adjustment of devices (15 sources) Patient encounter status; Translations: [Other physical therapy] Onset: 07-05-2011 07-05-2011 Episodic Residual codes; unclassified (10 sources) Amnesia; Translations: [Other amnesia] Onset: 06-28-2011 01-08-2019 Episodic Residual codes; unclassified (2 sources) Memory loss Onset: 06-28-2011 01-08-2019 Episodic Spondylosis; intervertebral disc disorders; other back problems (20 sources) Cervical spine ankylosis; Translations: [Fusion of spine, cervical region] Onset: 06-28-2011 11-11-2021 Episodic Superficial injury; contusion (6 sources) Traumatic hematoma; Translations: [Contusion of unspecified part of head, initial encounter] Onset: 06-28-2011 06-28-2011 Episodic Viral infection (7 sources) Verruca vulgaris; Translations: [Viral wart, unspecified] Onset: 04-28-2005 05-29-2019 Episodic Results Test Name Value Interpretation Reference Range Facility Glucose mean value [Mass/vol ume] in Blood Estimated from glycated hemoglobinOrdered By: Scot Hutchison on 05-13-2025 Average glucose Estimated from glycated hemoglobin (Bld) [Mass/Vol] 100 mg/dL [facility] Hemoglobin A1c percentageOrd ered By: Scot Hutchison on 05-13-2025 HbA1c (Bld) [Mass fraction] 5.1 % 4.5-6.2 [facility] Comment on above: ADA RECOMMENDED LIMI T 4.0 - 6.0ADA THERAPEUTIC TARGET < 7.0ACTION SUGGESTED> 7.0 Laboratory - Chemistry and C hemistry - challengeOrdered By: Scot Hutchison on 05-13-2025 Albumin [Mass/Vol] 4.2 g/dL 3.4-5.0 [facility] No Panel InformationOrdered By: Scot Hutchison on 05-13-2025 25-Hydroxy Vitamin D Total 78.3 ng/mL [facility] Comment on above: <20 ng/mL Vit D defi cient20-<30 ng/mL Vit D qzrrhzrsdill12-619 ng/mL Vit D sufficient>100 ng/mL Potential Toxicity 36on 02-20-2025 36 Regarding lab result s from 02/12/2025: MD Lakshmi Stone MA Please let him know that his serum creatinine is normal. Thank you. Patient's informed. Normal [facility] XR KNEE RT MIN 4 VWSon 02-19 [...] Duncan MD on 02/19/2025 4:30 PM Normal [facility] $ Large Joint Injection: kne eTy kneeon 02-18-2025 Osmin Anthony MD 02/18/2025 11:33 [...] to prep the skin.). MANUALLY TRANSCRIBED RESULTS [employer] Orders Onlyon 02-13-2025 Orders Only [id number] Vianey Lacey 1960 M [facility] Provider Department Center 02/13/2025 [id number], HISTORICAL MAXWELL Nunez Family History Problem Relation Age of Onset Cancer Mother Diabetes Mother Coronary artery disease Father Stroke Father Cancer Father Family Status - Relation Status Age at Mother Father Sister Brother [facility] Office Visiton 01-21-2025 Follow-up visit [id number] Vianey Lacey 1960 [facility] Provider Department Center 01/21/2025 [id number], JOE MAXWELL Nunez Family History Problem Relation Age of Onset Cancer Mother Diabetes Mother Coronary artery disease Father Stroke Father Cancer Father Family Status - Relation Status Age at Mother Father Sister Brother Level of Service:95324 [place] OFFICE/OUTPATIENT ESTABLISHED MOD MDM 30 MIN [facility] 36on 11-21-2024 36 Patient's would like you to review his most recent labs from 11/20/2024 and see if he should start lisinopril. 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 Nitza says he never started lisinopril because they were keeping an eye on his renal function. Recent BP's have been 141/84, 136/83, 143/87, 141/83. Also, she is looking into buying an infrared sauna, but wasn't sure how you felt about PJ using it with his heart and kidney issues. Please advise. Thanks! Normal [facility] Urology Office/Clinic Noteon 10-21-2024 Urology Office/Clinic Note Urology Office/Clinic Note Chief Complaint 1 year f/u HPI Staff 64yr old male pt here for 1yr f/u with PSA. Previous Dx: BPH with urinary obstruction, hypogonadism male, urge incontinence, ED *Tamsulosin 0.4mg QD PSA 09/06/21 - 0.70 06/15/22 - 0.79 He did have labs done @ [facility] but no PSA Dysuria: denies Incomplete [...] -Cont Tamsulosin wo changes. Refills sent to [facility]. -Complete PSA level soon. Will call pt [...] [facility] [address], [place] [address] [id number] Additional Instructions: 1 yr w/ PSA and T level Patient Education Benign Prostatic Hyperplasia Nicki Hidalgo, personally scribed for Dr. Mendoza on 10/21/2024 11:56:36. . Documentation recorded by the marcioibNicki conn, accurately reflects the services(s) I performed [...] (more content not included)... Normal [facility] Comment on above: Result Comment: Elec [...] with betadine and alcohol.). MANUALLY TRANSCRIBED RESULTS [facility] Ambulatory Visit Summaryon 1 10-13-2023 [...] PRIETO, Vianey Crawford Where: [facility] [address] [address]- Medications What How Much When Instructions Unchanged [...] us for your care. Normal [facility] Office Visiton 07-16-2024 Follow-up visit [id number] Vianey Lacey 1960 Provider Department Center 07/16/2024 Demi-BAKARI SCOTT [facility] Family History Problem Relation Age of Onset Cancer Mother Diabetes Mother Coronary artery disease Father Stroke Father Cancer Father Family Status - Relation Status Age at Mother Father Level of Service:57339 [place] OFFICE/OUTPATIENT ESTABLISHED LOW MDM 20 MIN Normal [facility] $ Large Joint Injection: R k neeon [...] with betadine and alcohol.). MANUALLY TRANSCRIBED RESULTS [employer] Orders Onlyon 06-11-2024 Orders Only [id number] EdieVianey arboleda Dayna 1960 Provider Department Center 06/11/2024 [id number], EHAB [facility] V[facility] Family History Problem Relation Age of Onset Cancer Mother Diabetes Mother Coronary artery disease Father Stroke Father Cancer Father Family Status - Relation Status Age at Mother Father Normal [facility] Erythrocyte distribution wid th Auto (RBC) [Ratio]on 06-03-2024 Erythrocyte distribution width (RBC) [Ratio] 13.3 % 11.0-15.0 [facility] Estimated glomerular filtrat ion rate (GFR) non- Americanon 06-03-2024 GFR/1.73 sq M.predicted among non-blacks MDRD (S/P/Bld) [Vol rate/Area] mL/min/{1.73_m2} >=60 [facility] Hematocrit Auto (Bld) [Volum e fraction]on 06-03-2024 Hematocrit (Bld) [Volume fraction] 45.4 % 42.0-54.0 [facility] Hemoglobin [Mass/volume] in Bloodon 06-03-2024 Hemoglobin (Bld) [Mass/Vol] 15.4 g/dL 14.0-18.0 [facility] Laboratory - Chemistry and C hemistry - challengeon 06-03-2024 Albumin [Mass/Vol] 3.8 g/dL 3.4-5.0 [facility] Calcium [Mass/Vol] 8.9 mg/dL 8.5-10.1 [facility] Chloride [Moles/Vol] 101 mmol/L 98-107 [facility] CO2 [Moles/Vol] 31.2 mmol/L 21.0-32.0 [facility] Creatinine [Mass/Vol] 1.06 mg/dL 0.70-1.30 [facility] GFR/1.73 sq M.predicted MDRD (S/P/Bld) [Vol rate/Area] mL/min/{1.73_m2} >=60 [facility] Glucose [Mass/Vol] 91 mg/dL 74-106 [facility] Magnesium [Mass/Vol] 1.9 mg/dL 1.8-2.4 [facility] Potassium [Moles/Vol] 3.9 mmol/L 3.5-5.1 [facility] Sodium [Moles/Vol] 138 mmol/L 136-145 [facility] Urate [Mass/Vol] 4.7 mg/dL 3.5-7.2 [facility] Urea nitrogen [Mass/Vol] 18.0 mg/dL 7.0-18.0 [facility] Urea nitrogen/Creatinine [Mass ratio] 17.0 mg/mg [facility] Bilirubin Ql (U) Negative NEGATIVE [facility] Glucose (U) [Mass/Vol] Negative NEGATIVE [facility] Ketones Ql (U) Negative NEGATIVE [facility] pH (U) 5.5 [pH] 5.0-9.0 [facility] Specific gravity (U) [Rel density] 1.020 1.005-1.025 [facility] Urobilinogen Qn (U) 0.2 {Brenda'U}/dL 0.2-1.0 [facility] Laboratory - Specimen inform ationon 06-03-2024 Appearance (U) CLEAR CLEAR [facility] Color (U) YELLOW YELLOW [facility] Laboratory - Urinalysison Leukocyte esterase Test strip Ql (U) Negative NEGATIVE [facility] Mucus Ql (Urine sed) NONE SEEN NONE SEEN [facility] Nitrite Ql (U) Negative NEGATIVE [facility] Protein (U) [Mass/Vol] 6.9 mg/dL <=11.9 [facility] Protein Ql (U) Negative NEG/TRACE [facility] Leukocytes [#/volume] correc kim for nucleated erythrocytes in Blood by Automated counon 06-03-2024 WBC corrected for nucl RBC Auto (Bld) [#/Vol] 3.2 10 3/uL Low 4.0-11.0 [facility] MCH Auto (RBC) [Entitic mass ]on 06-03-2024 MCH (RBC) [Entitic mass] 29.7 pg 25.9-34.0 [facility] MCHC Auto (RBC) [Mass/Vol]on 06-03-2024 MCHC (RBC) [Mass/Vol] 33.9 g/dL 29.9-35.2 [facility] MCV Auto (RBC) [Entitic vol] on 06-03-2024 MCV (RBC) [Entitic vol] 87.5 fL 80.0-94.0 [facility] No Panel Informationon 06-03 25-Hydroxy Vitamin D Total 74.8 ng/mL [facility] Comment on above: <20 ng/mL Vit D defi cient20-<30 ng/mL Vit D cvenptvizfqn26-034 ng/mL Vit D sufficient>100 ng/mL Potential Toxicity Parathyroid Hormone (Intact) 34 pg/mL 15-65 [facility] Comment on above: Performed at: [address] [id number] Director: Aleks Ferreira PhD, Phone: [phone] Phosphorus Level 2.9 mg/dL 2.6-4.7 [facility] Urine Bacteria NONE SEEN #/HPF NONE SEEN [facility] Urine Occult Blood Negative NEGATIVE [facility] Urine Random Creatinine 107.55 mg/dL 20.00-300.00 [facility] Urine RBC NONE SEEN #/HPF 0-2 [facility] Urine Squamous Epithelial Cells RARE #/LPF NONE/RARE [facility] Urine WBC NONE SEEN #/HPF NONE SEEN [facility] Platelet mean volume Auto (B ld) [Entitic vol]on 06-03-2024 Platelet mean volume (Bld) [Entitic vol] 9.5 fL 9.5-13.5 [facility] Platelets Auto (Bld) [#/Vol] on 06-03-2024 Platelets (Bld) [#/Vol] 126 10 3/uL Low 150-450 [facility] RBC Auto (Bld) [#/Vol]on RBC (Bld) [#/Vol] 5.19 10 6/uL 4.70-6.10 [facility] Serum or plasma anion gap de terminationon 06-03-2024 Anion gap [Moles/Vol] 9.7 mmol/L [facility] Urine protein/creatinine rat ioon 06-03-2024 Protein/Creatinine (U) [Ratio] 0.06 [facility] Reminderson 05-30-2024 Reminders Reminders From: Melissa Nash LPN To: GSN - Clinical; Sent: 05/30/2024 15:23:45 EDT Show up: 04/28/2034 07:00:00 EDT Subject: colonoscopy recall Due Date/Time: 05/29/2034 07:00:00 EDT Reminder/Recall Patient due for screening colonoscopy 05/29/2034. Normal [facility] Ambulatory Visit Summaryon 0 05-07-2024 Ambulatory Visit Summary Ambulatory Visit Summary VIANEY LACEY :1960 Visit Date:05/07/2024 Ambulatory Visit Instructions Your Diagnosis Screening for malignant neoplasm of colon Chronic anticoagulation Your Care Team Attending Physician - Shawanda MEJIA MD Primary Care Physician - Ilda Hendrickson [...] PRIETO, Vianey Crawford Where: [facility] [address] [address]- Medications What How Much When Instructions Unchanged [...] us for your care. Normal [facility] 36on 04-11-2024 36 Patient needs scheduled for colonoscopy and would like to know if he can hold Eliquis prior. Please advise. Thanks! Normal [facility] $ Large Joint Injection: R k neeon [...] with betadine and alcohol.). MANUALLY TRANSCRIBED [facility]ULTS [facility]24 Physician Referral [phone] [id number] Normal [facility] Telephone Encounteron 2022 [employer] Authentication Interface Message Text Patient has not been seen by this specialist in more than 1 year. Please contact patient to schedule office visit. Thank you Normal [facility] CNOVon 04-26-2023 CNOV Office Visit (SPMESH ) VIANEY LACEY ([id number]) 1960 M Date Time Provider Department 04/26/23 [...] palpable masses (more content not included)... Normal [facility] TESTOSTERONE, TOTALon 2022 Testosterone [Mass/Vol] 347 ng/dL Normal 264-916 [facility] Comment on above: Result Comment: Adul t male reference interval is based on a population of healthy nonobese males (BMI <30) between 19 and 39 years old. Brad et.al. JCEM 2017,102;9703-7280. PMID: [id number]. Performed By: #### T ESTTOT #### [facility] [address] [place] [address] Dr. Reuben Morrison XR TSPINE 3 VIEWSon [...] ALFREDITO LOAIZA Date: 2022-11-18 16:11 Normal [facility] TESTOSTERONE, TOTALon 2022 Testosterone [Mass/Vol] 993 ng/dL Critically high 264-916 [facility] Comment on above: Result Comment: Adul t male reference interval is based on a population of healthy nonobese males (BMI <30) between 19 and 39 years old. Brad et.al. JCEM 2017,102;5029-8152. PMID: [id number]. Performed By: #### T ESTTOT #### [facility] [address] [place] [address] Dr. Reuben Morrison CBC AUTO DIFFon 06-15-2022 BASO # 0.0 103/ul Normal 0.0-0.1 [facility] Comment on above: Performed By: #### C BC #### [facility] [address] [place] [address] Dr. Reuben Morrison Basophils/100 WBC (Bld) 0.4 % Normal 0.2-2.0 [facility] Comment on above: Performed By: #### C BC #### [facility] [address] [place] [address] Dr. Reuben Morirson EO # 0.1 103/ul Normal 0.0-0.7 [facility] Comment on above: Performed By: #### C BC #### [facility] [address] [place] [address] Dr. Reuben Morrison Eosinophils/100 WBC (Bld) 1.3 % Normal 0.9-7.0 [facility] Comment on above: Performed By: #### C BC #### [facility] [address] [place] [address] Dr. Reuben Morrison Erythrocyte distribution width (RBC) [Ratio] 14.3 % Normal 11.0-15.0 [facility] Comment on above: Performed By: #### C BC #### [facility] [address] [place] [address] Dr. Reuben Morrison Hematocrit (Bld) [Volume fraction] 48.9 % Normal 42.0-54.0 [facility] Comment on above: Performed By: #### C BC #### [facility] [address] [place] [address] Dr. Reuben Morrison Hemoglobin (Bld) [Mass/Vol] 16.6 g/dL Normal 14.0-18.0 [facility] Comment on above: Performed By: #### C BC #### [facility] [address] [place] [address] Dr. Reuben Morrison IG # 0.01 10e3/ul Normal 0.00-0.03 [facility] Comment on above: Performed By: #### C BC #### [facility] [address] [place] [address] Dr. Reuben Morrison IG % 0.2 % Normal 0.0-0.5 [facility] Comment on above: Performed By: #### C BC #### [facility] [address] [place] [address] Dr. Reuben Morrison LYMPH # 1.1 103/ul Critically low 1.2-3.8 [facility] Comment on above: Performed By: #### C BC #### [facility] [address] [place] [address] Dr. Reuben Morrison Lymphocytes/100 WBC (Bld) 24.3 % Normal 20.5-60.0 [facility] Comment on above: Performed By: #### C BC #### [facility] [address] [place] [address] Dr. Reuben Morrison MANUAL DIFF REQ NO Normal [facility] Comment on above: Performed By: #### C BC #### [facility] [address] [place] [address] Dr. Reubne Morrison MCH (RBC) [Entitic mass] 29.5 pg Normal 25.9-34.0 [facility] Comment on above: Performed By: #### C BC #### [facility] [address] [place] [address] Dr. Reuben Morrison MCHC (RBC) [Mass/Vol] 33.9 g/dL Normal 29.9-35.2 [facility] Comment on above: Performed By: #### C BC #### [facility] [address] [place] [address] Dr. Reuben Morrison MCV (RBC) [Entitic vol] 86.9 fL Normal 80.0-94.0 [facility] Comment on above: Performed By: #### C BC #### [facility] [address] [place] [address] Dr. Reuben Morrison MONO # 0.5 103/ul Normal 0.3-0.8 [facility] Comment on above: Performed By: #### C BC #### [facility] [address] [address] [address] Reuben Morrison Monocytes/100 WBC (Bld) 9.6 % Normal 1.7-12.0 [facility] Comment on above: Performed By: #### C BC #### [facility] [address] [address] [address] Reuben Morrison NEUT # 3.0 103/ul Normal 1.4-6.5 [facility] Comment on above: Performed By: #### C BC #### [facility] [address] [address] [address] Reuben Morrison Neutrophils/100 WBC (Bld) 64.2 % Normal 43.0-75.0 [facility] Comment on above: Performed By: #### C BC #### [facility] [address] [place] [address] Dr. Reuben Morrison Platelet mean volume (Bld) [Entitic vol] 9.7 fL Normal 9.5-13.5 [facility] Comment on above: Performed By: #### C BC #### [facility] [address] [place] [address] Dr. Reuben Morrison PLT 130 103/ul Critically low 150-450 [facility] Comment on above: Result Comment: plts . appear slightly decreased Performed By: #### C BC #### [facility] [address] [place] [address] Dr. Reuben Morrison RBC 5.63 106/ul Normal 4.70-6.10 [facility] Comment on above: Performed By: #### C BC #### [facility] [address] [place] [address] Dr. Reuben Morrison WBC 4.7 103/ul Normal 4.0-11.0 [facility] Comment on above: Performed By: #### C BC #### [facility] [address] [place] [address] Dr. Reuben Morrison TESTOSTERONE, TOTALon 2021 Testosterone [Mass/Vol] 404 ng/dL Normal 264-916 [facility] Comment on above: Result Comment: Adul t male reference interval is based on a population of healthy nonobese males (BMI <30) between 19 and 39 years old. stephania Salinas.al. JCEM 2017,102;3884-2348. PMID: [id number]. Performed By: #### T ESTTOT #### [facility] [address] [place] [address] Dr. Reuben Morrison CBC AUTO DIFFon 04-27-2022 BASO # 0.0 103/ul Normal 0.0-0.1 [facility] Comment on above: Performed By: #### T ESTTOT #### [facility] [address] [place] [address] Dr. Reuben Morrison Basophils/100 WBC (Bld) 1.0 % Normal 0.2-2.0 [facility] Comment on above: Performed By: #### T ESTTOT #### [facility] [address] [place] [address] Dr. Reuben Morrison EO # 0.1 103/ul Normal 0.0-0.7 [facility] Comment on above: Performed By: #### T ESTTOT #### [facility] [address] [place] [address] Dr. Reuben Morrison Eosinophils/100 WBC (Bld) 1.8 % Normal 0.9-7.0 [facility] Comment on above: Performed By: #### T ESTTOT #### [facility] [address] [place] [address] Dr. Reuben Morrison Erythrocyte distribution width (RBC) [Ratio] 14.0 % Normal 11.0-15.0 [facility] Comment on above: Performed By: #### T ESTTOT #### [facility] [address] [place] [address] Dr. Reuben Morrison Hematocrit (Bld) [Volume fraction] 47.3 % Normal 42.0-54.0 [facility] Comment on above: Performed By: #### T ESTTOT #### [facility] [address] [place] [address] Dr. Reuben Morrison Hemoglobin (Bld) [Mass/Vol] 16.2 g/dL Normal 14.0-18.0 [facility] Comment on above: Performed By: #### T ESTTOT #### [facility] [address] [address] [address] Reuben Morrison IG # 0.01 10e3/ul Normal 0.00-0.03 [facility] Comment on above: Performed By: #### T ESTTOT #### [facility] [address] [address] [address] Reuben Morrison IG % 0.3 % Normal 0.0-0.5 [facility] Comment on above: Performed By: #### T ESTTOT #### [facility] [address] [address] [address] Reuben Morrison LYMPH # 1.1 103/ul Critically low 1.2-3.8 [facility] Comment on above: Performed By: #### T ESTTOT #### [facility] [address] [place] [address] Dr. Reuben Morrison Lymphocytes/100 WBC (Bld) 26.6 % Normal 20.5-60.0 [facility] Comment on above: Performed By: #### T ESTTOT #### [facility] [address] [address] [address] Reuben Morrison MANUAL DIFF REQ NO Normal [facility] Comment on above: Performed By: #### T ESTTOT #### [facility] [address] [address] [address] Reuben Morrison MCH (RBC) [Entitic mass] 29.5 pg Normal 25.9-34.0 [facility] Comment on above: Performed By: #### T ESTTOT #### [facility] [address] [address] [address] Reuben Morrison MCHC (RBC) [Mass/Vol] 34.2 g/dL Normal 29.9-35.2 [facility] Comment on above: Performed By: #### T ESTTOT #### [facility] [address] [address] [address] Reuben Morrison MCV (RBC) [Entitic vol] 86.2 fL Normal 80.0-94.0 [facility] Comment on above: Performed By: #### T ESTTOT #### [facility] [address] [address] [address] Reuben Morrison MONO # 0.4 103/ul Normal 0.3-0.8 [facility] Comment on above: Performed By: #### T ESTTOT #### [facility] [address] [place] [address] Dr. Reuben Morrison Monocytes/100 WBC (Bld) 9.0 % Normal 1.7-12.0 [facility] Comment on above: Performed By: #### T ESTTOT #### [facility] [address] [place] [address] Dr. Reuben Morrison NEUT # 2.5 103/ul Normal 1.4-6.5 [facility] Comment on above: Performed By: #### T ESTTOT #### [facility] [address] [place] [address] Dr. Reuben Morrison Neutrophils/100 WBC (Bld) 61.3 % Normal 43.0-75.0 [facility] Comment on above: Performed By: #### T ESTTOT #### [facility] [address] [place] [address] Dr. Reuben Morrison Platelet mean volume (Bld) [Entitic vol] 9.6 fL Normal 9.5-13.5 [facility] Comment on above: Performed By: #### T ESTTOT #### [facility] [address] [place] [address] Dr. Reuben Morrison PLT 128 103/ul Critically low 150-450 [facility] Comment on above: Performed By: #### T ESTTOT #### [facility] [address] [place] [address] Dr. Reuebn Morrison RBC 5.49 106/ul Normal 4.70-6.10 [facility] Comment on above: Performed By: #### T ESTTOT #### [facility] [address] [place] [address] Dr. Reuben Morrison WBC 4.0 103/ul Normal 4.0-11.0 [facility] Comment on above: Performed By: #### T ESTTOT #### [facility] [address] [place] [address] Dr. Reuben Morrison INSULINon 03-08-2022 Insulin 4.3 uIU/mL Normal 2.6-24.9 [facility] Comment on above: Performed By: #### T ESTTOT #### [facility] [address] [place] [address] Dr. Reuben Morrison TESTOSTERONE, TOTALon 2021 Testosterone [Mass/Vol] ng/dL Critically high 264-916 [facility] Comment on above: Result Comment: Adul t male reference interval is based on a population of healthy nonobese males (BMI <30) between 19 and 39 years old. stephania Salinas.al. JCEM 2017,102;7520-0450. PMID: [id number]. Performed By: #### T ESTTOT #### [facility] [address] [place] [address] Dr. Reuben Morrison CBC AUTO DIFFon 03-07-2022 BASO # 0.1 103/ul Normal 0.0-0.1 [facility] Comment on above: Performed By: #### C BC #### [facility] [address] [place] [address] Dr. Reuben Morrison Basophils/100 WBC (Bld) 1.4 % Normal 0.2-2.0 [facility] Comment on above: Performed By: #### C BC #### [facility] [address] [place] [address] Dr. Reuben Morrison EO # 0.1 103/ul Normal 0.0-0.7 [facility] Comment on above: Performed By: #### C BC #### [facility] [address] [place] [address] Dr. Reuben Morrison Eosinophils/100 WBC (Bld) 1.4 % Normal 0.9-7.0 [facility] Comment on above: Performed By: #### C BC #### [facility] [address] [place] [address] Dr. Reuben Morrison Erythrocyte distribution width (RBC) [Ratio] 14.7 % Normal 11.0-15.0 [facility] Comment on above: Performed By: #### C BC #### [facility] [address] [place] [address] Dr. Reuben Morrison Hematocrit (Bld) [Volume fraction] 49.8 % Normal 42.0-54.0 [facility] Comment on above: Performed By: #### C BC #### [facility] [address] [place] [address] Dr. Reuben Morrison Hemoglobin (Bld) [Mass/Vol] 16.4 g/dL Normal 14.0-18.0 [facility] Comment on above: Performed By: #### C BC #### [facility] [address] [place] [address] Dr. Reuben Morrison IG # 0.01 10e3/ul Normal 0.00-0.03 [facility] Comment on above: Performed By: #### C BC #### [facility] [address] [place] [address] Dr. Reuben Morrison IG % 0.3 % Normal 0.0-0.5 [facility] Comment on above: Performed By: #### C BC #### [facility] [address] [place] [address] Dr. Reuben Morrison LYMPH # 0.9 103/ul Critically low 1.2-3.8 [facility] Comment on above: Performed By: #### C BC #### [facility] [address] [place] [address] Dr. Reuben Morrison Lymphocytes/100 WBC (Bld) 24.7 % Normal 20.5-60.0 [facility] Comment on above: Performed By: #### C BC #### [facility] [address] [place] [address] Dr. Reuben Morrison MANUAL DIFF REQ NO Normal [facility] Comment on above: Performed By: #### C BC #### [facility] [address] [place] [address] Dr. Reuben Morrison MCH (RBC) [Entitic mass] 28.9 pg Normal 25.9-34.0 [facility] Comment on above: Performed By: #### C BC #### [facility] [address] [address] [address] Reuben Morrison MCHC (RBC) [Mass/Vol] 32.9 g/dL Normal 29.9-35.2 [facility] Comment on above: Performed By: #### C BC #### [facility] [address] [address] [address] Reuben Morrison MCV (RBC) [Entitic vol] 87.7 fL Normal 80.0-94.0 [facility] Comment on above: Performed By: #### C BC #### [facility] [address] [place] [address] Dr. Reuben Morrison MONO # 0.4 103/ul Normal 0.3-0.8 [facility] Comment on above: Performed By: #### C BC #### [facility] [address] [place] [address] Dr. Reuben Morrison Monocytes/100 WBC (Bld) 9.5 % Normal 1.7-12.0 [facility] Comment on above: Performed By: #### C BC #### [facility] [address] [place] [address] Dr. Reuben Morrison NEUT # 2.3 103/ul Normal 1.4-6.5 [facility] Comment on above: Performed By: #### C BC #### [facility] [address] [place] [address] Dr. Reuben Morrison Neutrophils/100 WBC (Bld) 62.7 % Normal 43.0-75.0 [facility] Comment on above: Performed By: #### C BC #### [facility] [address] [place] [address] Dr. Reuben Morirson Platelet mean volume (Bld) [Entitic vol] 9.8 fL Normal 9.5-13.5 [facility] Comment on above: Performed By: #### C BC #### [facility] [address] [place] [address] Dr. Reuben Morrison PLT 149 103/ul Critically low 150-450 [facility] Comment on above: Performed By: #### C BC #### [facility] [address] [address] [address] Reuben Morrison RBC 5.68 106/ul Normal 4.70-6.10 [facility] Comment on above: Performed By: #### C BC #### [facility] [address] [place] [address] Dr. Reuben Morrison WBC 3.7 103/ul Critically low 4.0-11.0 [facility] Comment on above: Performed By: #### C BC #### [facility] [address] [place] [address] Dr. Reuben Morrison FREE THYROXINE INDEX T7on FTI 2.50 Normal 1.30-4.50 [facility] Comment on above: Performed By: #### C MP, T7, TSH, LIPID #### [facility] [address] [place] [address] Dr. Reuben Morrison T3U 39.0 % Normal 33.0-40.0 [facility] Comment on above: Performed By: #### C MP, T7, TSH, LIPID #### [facility] [address] [place] [address] Dr. Reuben Morrison T4 [Mass/Vol] 6.40 ug/dL Normal 4.50-12.10 [facility] Comment on above: Performed By: #### C MP, T7, TSH, LIPID #### [facility] [address] [place] [address] Dr. Reuben Morrison GLYCOHEMOGLOBIN A1Con 2021 ADA RECOMMENDATION SEE BELOW Normal [facility] Comment on above: Result Comment: ADA RECOMMENDED LIMIT 4.0 - 6.0 ADA THERAPEUTIC TARGET < 7.0 ACTION SUGGESTED > 7.0 Performed By: #### T ESTTOT #### [facility] [address] [place] [address] Dr. Reuben Morrison Glucose [Mass/Vol] 105 mg/dL Normal [facility] Comment on above: Performed By: #### T ESTTOT #### [facility] [address] [address] [address] Reuben Morrison HbA1c (Bld) [Mass fraction] 5.3 % Normal 4.5-6.2 [facility] Comment on above: Performed By: #### T ESTTOT #### [facility] [address] [place] [address] Dr. Reuben Morrison IRONon 03-07-2022 Iron [Mass/Vol] 100.0 ug/dL Normal 65.0-175.0 [facility] Comment on above: Performed By: #### I BLAIR, PSASC, VITB12, VITAD #### [facility] [address] [place] [address] Dr. Reuben Morrison LIPID PROFILEon 03-07-2022 CHOL-HDL RATIO NORM SEE BELOW Normal [facility] Comment on above: Result Comment: 3.3 - 4.4 LOW RISK 4.4 - 7.1 AVERAGE RISK 7.1 - 11.0 MODERATE RISK >11.0 HIGH RISK Performed By: #### C MP, T7, TSH, LIPID #### [facility] [address] [place] [address] Dr. Reuben Morrison Cholesterol [Mass/Vol] 157 mg/dL Normal <=200 [facility] Comment on above: Performed By: #### C MP, T7, TSH, LIPID #### [facility] [address] [place] [address] Dr. Reuben Morrison Cholesterol in HDL [Mass/Vol] 48 mg/dL Normal 40-60 [facility] Comment on above: Performed By: #### C MP, T7, TSH, LIPID #### [facility] [address] [place] [address] Dr. Reuben Morrison Cholesterol in LDL [Mass/Vol] 96.0 mg/dL Normal [facility] Comment on above: Performed By: #### C MP, T7, TSH, LIPID #### [facility] [address] [place] [address] Dr. Reuben Morrison Cholesterol.total/Chol esterol in HDL [Mass ratio] 3.3 {ratio} Normal [facility] Comment on above: Performed By: #### C MP, T7, TSH, LIPID #### [facility] [address] [address] [address] Reuben Morrison HDL NORMAL > or = 60 mg/dl - LO W CARDIOVASCULAR RISK <40 mg/dl - HIGH CARDIOVASCULAR RISK Normal [facility] Comment on above: Performed By: #### C MP, T7, TSH, LIPID #### [facility] [address] [address] [address] Reuben Morrison LDL CALC NORMAL SEE BELOW Normal [facility] Comment on above: Result Comment: <100 mg/dl OPTIMAL 100 - 129 mg/dl NEAR OR ABOVE OPTIMAL 130 - 159 mg/dl BORDERLINE HIGH 160 - 189 mg/dl HIGH >190 mg/dl VERY HIGH Performed By: #### C MP, T7, TSH, LIPID #### [facility] [address] [address] [address] Reuben Morrison Triglyceride [Mass/Vol] 65 mg/dL Normal <=150 [facility] Comment on above: Performed By: #### C MP, T7, TSH, LIPID #### [facility] [address] [address] [address] Reuben Morrison VLDL CALC 13.0 mg/dL Normal [facility] Comment on above: Performed By: #### C MP, T7, TSH, LIPID #### [facility] [address] [address] [address] Reuben Morrison PROF 14(COMP METB)on 022 Albumin [Mass/Vol] 3.7 g/dL Normal 3.4-5.0 [facility] Comment on above: Performed By: #### C MP, T7, TSH, LIPID #### [facility] [address] [address] [address] Reuben Morrison Albumin/Globulin [Mass ratio] 1.3 {ratio} Normal [facility] Comment on above: Performed By: #### C MP, T7, TSH, LIPID #### [facility] [address] [place] [address] Dr. Reuben Morrison ALP [Catalytic activity/Vol] 53 U/L Normal 46-116 [facility] Comment on above: Performed By: #### C MP, T7, TSH, LIPID #### [facility] [address] [address] [address] Reuben Morrison ALT [Catalytic activity/Vol] 37 U/L Normal 16-63 [facility] Comment on above: Performed By: #### C MP, T7, TSH, LIPID #### [facility] [address] [address] [address] Reuben Morrison Anion gap [Moles/Vol] 11.0 mmol/L Normal [facility] Comment on above: Performed By: #### C MP, T7, TSH, LIPID #### [facility] [address] [place] [address] Dr. Reuben Morrison AST [Catalytic activity/Vol] 28 U/L Normal 15-37 [facility] Comment on above: Performed By: #### C MP, T7, TSH, LIPID #### [facility] [address] [place] [address] Dr. Reuben Morrison Bilirubin [Mass/Vol] 0.9 mg/dL Normal 0.2-1.0 [facility] Comment on above: Performed By: #### C MP, T7, TSH, LIPID #### [facility] [address] [address] [address] Reuben Morrison Calcium [Mass/Vol] 8.9 mg/dL Normal 8.5-10.1 [facility] Comment on above: Performed By: #### C MP, T7, TSH, LIPID #### [facility] [address] [address] [address] Reuben Morrison Chloride [Moles/Vol] 106 mmol/L Normal 98-107 [facility] Comment on above: Performed By: #### C MP, T7, TSH, LIPID #### [facility] [address] [address] [address] Reuben Morrison CO2 [Moles/Vol] 28.2 mmol/L Normal 21.0-32.0 [facility] Comment on above: Performed By: #### C MP, T7, TSH, LIPID #### [facility] [address] [address] [address] Reuben Morrison Creatinine [Mass/Vol] 1.55 mg/dL Critically high 0.70-1.30 [facility] Comment on above: Performed By: #### C MP, T7, TSH, LIPID #### [facility] [address] [place] [address] Dr. Reuben Morrison EGFR-AF KYRGYZ 55 mL/min/1.73m2 Critically low >=60 [facility] Comment on above: Performed By: #### C MP, T7, TSH, LIPID #### [facility] [address] [address] [address] Reuben Morrison EGFR-NON AF KYRGYZ 46 mL/min/1.73m2 Critically low >=60 [facility] Comment on above: Performed By: #### C MP, T7, TSH, LIPID #### [facility] [address] [place] [address] Dr. Reuben Morrison Globulin (S) [Mass/Vol] 2.9 g/dL Normal [facility] Comment on above: Performed By: #### C MP, T7, TSH, LIPID #### [facility] [address] [place] [address] Dr. Reuben Morrison Glucose [Mass/Vol] 88 mg/dL Normal 74-106 [facility] Comment on above: Performed By: #### C MP, T7, TSH, LIPID #### [facility] [address] [place] [address] Dr. Reuben Morrison Potassium [Moles/Vol] 4.2 mmol/L Normal 3.5-5.1 [facility] Comment on above: Performed By: #### C MP, T7, TSH, LIPID #### [facility] [address] [place] [address] Dr. Reuben Morrison Protein [Mass/Vol] 6.6 g/dL Normal 6.4-8.2 [facility] Comment on above: Performed By: #### C MP, T7, TSH, LIPID #### [facility] [address] [place] [address] Dr. Reuben Morrison Sodium [Moles/Vol] 141 mmol/L Normal 136-145 [facility] Comment on above: Performed By: #### C MP, T7, TSH, LIPID #### [facility] [address] [place] [address] Dr. Reuben Morrison Urea nitrogen [Mass/Vol] 13.0 mg/dL Normal 7.0-18.0 [facility] Comment on above: Performed By: #### C MP, T7, TSH, LIPID #### [facility] [address] [place] [address] Dr. Reuben Morrison Urea nitrogen/Creatinine [Mass ratio] 8.4 mg/mg Normal [facility] Comment on above: Performed By: #### C MP, T7, TSH, LIPID #### [facility] [address] [place] [address] Dr. Reuben Morrison TSHon 03-07-2022 TSH 0.091 uIU/mL Critically low 0.358-3.740 [facility] Comment on above: Performed By: #### C MP, T7, TSH, LIPID #### [facility] [address] [place] [address] Dr. Reuben Morrison TSH RANGE SEE BELOW Normal [facility] Comment on above: Result Comment: <0.3 4 UIU/ml HYPERTHYROID 0.34-5.60 UIU/ml EUTHYROID >5.60 UIU/ml HYPOTHYROID Performed By: #### C MP, T7, TSH, LIPID #### [facility] [address] [place] [address] Dr. Reuben Morrison VITAMIN B12on 03-07-2022 Cobalamin (Vitamin B12) [Mass/Vol] 3126.0 pg/mL Critically high 193.0-986.0 [facility] Comment on above: Performed By: #### T ESTTOT #### [facility] [address] [place] [address] Dr. Reuben Morrison VITAMIN D 25 OHon 03-07-2022 VIT D 25-OH 90.4 ng/mL Normal [facility] Comment on above: Performed By: #### T ESTTOT #### [facility] [address] [place] [address] Dr. Reuben Morrison VIT D RANGES SEE BELOW Normal [facility] Comment on above: Result Comment: <20 ng/mL Vit D deficient 20 - <30 ng/mL Vit D insufficient 30 - 100 ng/mL Vit D sufficient >100 ng/mL Potential Toxicity Performed By: #### T ESTTOT #### [facility] [address] [place] [address] Dr. Reuben Morrison XR SHOULDER RICHARD 2V [...] ERIN HANSEN Date: 2022-03-07 16:26 Normal [facility] Vital Signs Date Time Vital Sign Value Performing Clinician Facility 05-13-2025 11:21-0400 Body height 168.91 cm Ilda Hendrickson MD Work Phone: [facility] 05-13-2025 11:21-0400 Body mass index (BMI) [Ratio] 29 kg/m2 Ilda Hendrickson MD Work Phone: [facility] 05-13-2025 11:21-0400 Body weight 83 kg Ilda Hendrickson MD Work Phone: [facility] 05-13-2025 11:21-0400 Diastolic blood pressure 80 mm[Hg] Ilda Hendrickson MD Work Phone: [facility] 05-13-2025 11:21-0400 Systolic blood pressure 122 mm[Hg] Ilda Hendrickson MD Work Phone: [facility] 02-18-2025 10:20-0400 Body height 170.2 cm Osmin Anthony MD Work Phone: [facility] 02-18-2025 10:20-0400 Body mass index (BMI) [Ratio] 29.19 kg/m2 Osmin Anthony MD Work Phone: [facility] 02-18-2025 10:20-0400 Body weight 84.54 kg Osmin Anthony MD Work Phone: [facility] 10-21-2024 10:46-0500 Body temperature 97.52 [degF] Vianey MENDOZA [facility] 10-21-2024 10:46-0500 Diastolic blood pressure 84 mm[Hg] Vianey MENDOZA [facility] 10-21-2024 10:46-0500 Systolic blood pressure 128 mm[Hg] Vianey MENDOZA [facility] 10-08-2024 14:40-0500 Body height 170.2 cm Osmin Anthony MD Work Phone: [facility] 10-08-2024 14:40-0500 Body mass index (BMI) [Ratio] 29.13 kg/m2 Osmin Anthony MD Work Phone: [facility] 10-08-2024 14:40-0500 Body weight 84.37 kg Osmin Anthony MD Work Phone: [facility] 08-13-2024 13:46-0500 Blood Pressure Location Shawanda MEJIA [facility] 08-13-2024 13:46-0500 Diastolic blood pressure 82 mm[Hg] Shawanda MEJIA [facility] 08-13-2024 13:46-0500 Heart rate 72 /min Shawanda MEJIA [facility] 08-13-2024 13:46-0500 Respiratory rate 16 /min Shawanda MEJIA [facility] 08-13-2024 13:46-0500 Systolic blood pressure 122 mm[Hg] Shawanda MEJIA [facility] 07-17-2024 14:59-0400 Body height 168.9 cm Sage Russel DO Work Phone: [facility] 07-17-2024 14:59-0400 Body mass index (BMI) [Ratio] 30.02 kg/m2 Sage Russel DO Work Phone: [facility] 07-17-2024 14:59-0400 Body weight 85.64 kg Sage Russel DO Work Phone: [facility] 07-17-2024 14:59-0400 Diastolic blood pressure 90 mm[Hg] Sage Russel DO Work Phone: [facility] 07-17-2024 14:59-0400 Heart rate 68 /min Sage Russel DO Work Phone: [facility] 07-17-2024 14:59-0400 SaO2% (BldA) [Mass fraction] 98 % Sage Russel DO Work Phone: [facility] 07-17-2024 14:59-0400 Systolic blood pressure 134 mm[Hg] Sage Russel DO Work Phone: [facility] 06-12-2024 11:04-0400 Body height 168.9 cm Román Hoang MD Work Phone: [facility] 06-12-2024 11:04-0400 Body mass index (BMI) [Ratio] 29.89 kg/m2 Román Hoang MD Work Phone: [facility] 06-12-2024 11:04-0400 Body weight 85.28 kg Román Hoang MD Work Phone: [facility] 06-12-2024 11:04-0400 Diastolic blood pressure 78 mm[Hg] Román Hoang MD Work Phone: [facility] 06-12-2024 11:04-0400 Heart rate 68 /min Román Hoang MD Work Phone: [facility] 06-12-2024 11:04-0400 Respiratory rate 16 /min Román Hoang MD Work Phone: [facility] 06-12-2024 11:04-0400 Systolic blood pressure 130 mm[Hg] Román Hoang MD Work Phone: [facility] 06-11-2024 11:20-0400 Body height 170.2 cm Osmin Anthony MD Work Phone: [facility] 06-11-2024 11:20-0400 Body mass index (BMI) [Ratio] 28.7 kg/m2 Osmin Anthony MD Work Phone: [facility] 06-11-2024 11:20-0400 Body weight 83.12 kg Osmin Anthony MD Work Phone: [facility] 06-06-2024 13:55-0400 Body height 168.91 cm MD Ilda Hendrickson Work Phone: [facility] 06-06-2024 13:55-0400 Body mass index (BMI) [Ratio] 29.4 kg/m2 MD Ilda Hendrickson Work Phone: [facility] 06-06-2024 13:55-0400 Body temperature 98.8 [degF] MD Ilda Hendrickson Work Phone: [facility] 06-06-2024 13:55-0400 Body weight 83.97 kg MD Ilda Hendrickson Work Phone: [facility] 06-06-2024 13:55-0400 Diastolic blood pressure 88 mm[Hg] MD Ilda Hendrickson Work Phone: [facility] 06-06-2024 13:55-0400 Heart rate 61 /min MD Ilda Hendrickson Work Phone: [facility] 06-06-2024 13:55-0400 Respiratory rate 16 /min MD Ilda Hendrickson Work Phone: [facility] 06-06-2024 13:55-0400 SaO2% (BldA) [Mass fraction] 98 % MD Ilda Hendrickson Work Phone: [facility] 06-06-2024 13:55-0400 Systolic blood pressure 139 mm[Hg] MD Ilda Hendrickson Work Phone: [facility] 05-07-2024 15:01-0400 Blood Pressure Location Shawanda LUZL [facility] 05-07-2024 15:01-0400 Diastolic blood pressure 84 mm[Hg] Shawanda NILL [facility] 05-07-2024 15:01-0400 Heart rate 68 /min Shawanda NILL [facility] 05-07-2024 15:01-0400 Respiratory rate 16 /min Shawanda NILL [facility] 05-07-2024 15:01-0400 Systolic blood pressure 118 mm[Hg] Shawanda NILL [facility] 11-02-2023 10:48-0500 Body height 170.2 cm Osmin Anthony MD Work Phone: [facility] 11-02-2023 10:48-0500 Body mass index (BMI) [Ratio] 29.29 kg/m2 Osmin Anthony MD Work Phone: [facility] 11-02-2023 10:48-0500 Body weight 84.82 kg Osmin Anthony MD Work Phone: [facility] 10-16-2023 13:03-0500 Blood Pressure Location Vianey MENDOZA [facility] 10-16-2023 13:03-0500 Diastolic blood pressure 82 mm[Hg] Vianey MENDOZA [facility] 10-16-2023 13:03-0500 Heart rate 75 /min Vianey MENDOZA [facility] 10-16-2023 13:03-0500 Respiratory rate 16 /min Vianey MENDOZA [facility] 10-16-2023 13:03-0500 Systolic blood pressure 131 mm[Hg] Vianey MENDOZA [facility] 07-27-2023 10:00-0400 Body height 168.91 cm Sandoval Antonia Other [employer] Other 07-27-2023 10:00-0400 Body mass index (BMI) [Ratio] 28.55 kg/m2 Sandoval Antonia Other [employer] Other 07-27-2023 10:00-0400 Body temperature 96.2 [degF] Sandoval Antonia Other [employer] Other 07-27-2023 10:00-0400 Body weight 81.47 kg Sandoval Antonia Other [employer] Other 07-27-2023 10:00-0400 Diastolic blood pressure 87 mm[Hg] Sandoval Antonia Other [employer] Other 07-27-2023 10:00-0400 Respiratory rate 16 /min Sandoval Antonia Other [employer] Other 07-27-2023 10:00-0400 SaO2% (BldA) [Mass fraction] 94 % Sandoval Antonia Other [employer] [facility] [employer] Other 07-27-2023 10:00-0400 Systolic blood pressure 130 mm[Hg] Sandoval Antonia Other [employer] [facility] [employer] Other 06-12-2023 12:25-0400 Blood Pressure Location Vianey MENDOZA [facility] 06-12-2023 12:25-0400 Diastolic blood pressure 74 mm[Hg] Vianey MENDOZA [facility] 06-12-2023 12:25-0400 Heart rate 68 /min Vianey MENDOZA [facility] 06-12-2023 12:25-0400 Respiratory rate 16 /min Vianey MENDOZA [facility] 06-12-2023 12:25-0400 Systolic blood pressure 128 mm[Hg] Vianeyzayra MENDOZA [facility] 04-26-2023 11:15-0400 Body height 168.4 cm Shawanda Hernandez PA-C Work Phone: [facility] 04-26-2023 11:15-0400 Body temperature 98.01 [degF] Shawanda Hernandez PA-C Work Phone: [facility] 04-26-2023 11:15-0400 Body weight 86.95 kg Shawanda Hernandez PA-C Work Phone: [facility] 04-26-2023 11:15-0400 Diastolic blood pressure 94 mm[Hg] Shawanda Hernandez PA-C Work Phone: [facility] 04-26-2023 11:15-0400 Heart rate 74 /min Shawanda Hernandez PA-C Work Phone: [facility] 04-26-2023 11:15-0400 SaO2% (BldA) [Mass fraction] 97 % Shawanda Hernandez PA-C Work Phone: [facility] 04-26-2023 11:15-0400 Systolic blood pressure 147 mm[Hg] Shawanda Hernandez PA-C Work Phone: [facility] 12-02-2022 08:12-0500 Blood Pressure Location Vianey MENDOZA [facility] 12-02-2022 08:12-0500 Diastolic blood pressure 84 mm[Hg] Vianey MENDOZA [facility] 12-02-2022 08:12-0500 Heart rate 70 /min Vianey MENDOZA [facility] 12-02-2022 08:12-0500 Respiratory rate 16 /min Vianey MENDOZA [facility] 12-02-2022 08:12-0500 Systolic blood pressure 137 mm[Hg] Vianey MENDOZA [facility] 07-20-2022 14:11-0400 Body mass index (BMI) [Ratio] 28.98 kg/m2 Jovita Virk MD Work Phone: [facility] 07-20-2022 14:11-0400 Body temperature 98.01 [degF] Jovita Virk MD Work Phone: [facility] 07-20-2022 14:11-0400 Body weight 83.92 kg Jovita Virk MD Work Phone: [facility] 07-20-2022 14:11-0400 Diastolic blood pressure 86 mm[Hg] Jovita Virk MD Work Phone: [employer] 07-20-2022 14:11-0400 Heart rate 98 /min Jovita Virk MD Work Phone: [employer] 07-20-2022 14:11-0400 Respiratory rate 14 /min Jovita Virk MD Work Phone: [employer] 07-20-2022 14:11-0400 SaO2% (BldA) [Mass fraction] 100 % Jovita Virk MD Work Phone: [employer] 07-20-2022 14:11-0400 Systolic blood pressure 138 mm[Hg] Jovita Virk MD Work Phone: [employer] Encounters Encounter Date Encounter Type Care Provider Facility Start: 10-27-2025 ambulatory Vianey Lewisi ty:[facility] Start: 05-24-2025 End: 05-24-2025 Letter encounter Jovita Virk MD Work Phone: [employer] Start: 05-13-2025 End: 05-13-2025 Patient encounter procedure Scot Pompa MD -[facility] [place] Work Phone: Start: 05-13-2025 End: 05-13-2025 ambulatory Ilda Hendrickson MD Work Phone: [facility] Work Phone: Start: 02-18-2025 End: 02-18-2025 ambulatory OSMIN ANTHONY [facility] Start: 02-18-2025 End: 02-18-2025 Office outpatient visit 25 minutes Osmin Anthony MD Work Phone: [facility] Comment on above: Primary osteoarthrit is of right knee (Primary Dx) Start: 01-21-2025 End: 01-21-2025 ambulatory AB [facility] Start: 10-21-2024 End: 10-21-2024 ambulatory Vianey MENDOZA Facility:[facility] [place] Start: 10-21-2024 End: 10-21-2024 Patient encounter procedure Vianey MENDOZA [facility] [place] Start: 10-08-2024 End: 10-08-2024 ambulatory OSMIN ANTHONY [facility] Start: 10-08-2024 End: 10-08-2024 Patient encounter procedure Osmin Anthony MD Work Phone: [facility] Comment on above: Primary osteoarthrit is of right knee (Primary Dx) Start: 08-13-2024 End: 08-13-2024 ambulatory Shawanda MEJIA Facility:[facility] Start: 08-13-2024 End: 08-13-2024 Patient encounter procedure Shawanda MEJIA [facility] Start: 07-17-2024 End: 07-17-2024 ambulatory SAGE CAM Not Available Start: 07-17-2024 End: 07-17-2024 Office outpatient visit 25 minutes Sage Cam DO Work Phone: [facility] Comment on above: NANCY (obstructive sle ep apnea) (Primary Dx); Hypersomnia; Snoring; Atrial fibrillation, unspecified type (CMS/HCC); Sleep deprivation Start: 07-17-2024 End: 07-17-2024 Bamboo flowsheet Sage Russel DO Work Phone: [facility] Start: 07-17-2024 End: 07-17-2024 Bamboo flowsheet Sage Russel DO Work Phone: [facility] Start: 07-16-2024 End: 07-16-2024 ambulatory [facility] Start: 06-12-2024 End: 06-12-2024 Bamboo flowsheet Román Hoang MD Work Phone: [facility] Start: 06-12-2024 End: 06-12-2024 Bamboo flowsheet Román Hoang MD Work Phone: [facility] Start: 06-12-2024 End: 06-12-2024 ambulatory ROMÁN HOANG Not Available Start: 06-12-2024 End: 06-12-2024 Office outpatient visit 25 minutes Román Hoang MD Work Phone: [facility] Comment on above: Sarah's disease (CMS/HCC) (Primary Dx) Start: 06-11-2024 End: 06-11-2024 ambulatory OSMIN ANTHONY [facility] Start: 06-11-2024 End: 06-11-2024 Patient encounter procedure Osmin Anthony MD Work Phone: [facility] Comment on above: Primary osteoarthrit is of right knee (Primary Dx) Start: 06-06-2024 End: 06-06-2024 ambulatory MD Ilda Hendrickson Work Phone: [facility] Work Phone: Start: 06-06-2024 End: 06-06-2024 Patient encounter procedure MD Ilda Hendrickson [facility] Work Phone: Start: 06-03-2024 Non-patient / Non-visit MD Ravi Hendrickson [facility] Work Phone: Start: 05-29-2024 End: 05-29-2024 ambulatory Shawanda MEJIA Facility:[id number] Start: 05-07-2024 End: 05-07-2024 ambulatory Shawanda R NILL Facility:[facility] Start: 05-07-2024 End: 05-07-2024 Patient encounter procedure Shawanda MEJIA [facility] [place] Start: 05-06-2024 ambulatory Shawanda NILL Facility:[facility] Start: 04-05-2024 End: 04-05-2024 ambulatory MD Ilda Hendrickson Work Phone: [facility] Work Phone: Start: 04-05-2024 End: 04-05-2024 Departed Referred MD Ilda Hendrickson Work Phone: [facility] Start: 12-03-2023 Letter encounter [facility] Work Phone: Start: 11-27-2023 ambulatory Vianey MENDOZA Facili ty:[facility] [place] Start: 11-02-2023 End: 11-02-2023 Patient encounter procedure Osmin Anthony MD Work Phone: [facility] Comment on above: Primary osteoarthrit is of right knee (Primary Dx) Start: 10-16-2023 End: 10-16-2023 Patient encounter procedure Vianey MENDOZA [facility] Start: 07-27-2023 End: 07-27-2023 ambulatory Sandoval Antonia Other [employer] Other Start: 07-27-2023 Office outpatient ne w 45 minutes Sandoval Antonia [facility] Start: 06-12-2023 End: 06-12-2023 Patient encounter procedure Vianey MENDOZA [facility] Start: 05-03-2023 End: 05-03-2023 Patient encounter procedure Taylor Joshua [facility] Start: 04-26-2023 End: 04-26-2023 ambulatory ILDA HENDRICKSON Facility:[facility] Start: 04-26-2023 End: 04-26-2023 Patient encounter procedure Shawanda Hernandez PA-C Work Phone: [facility] Comment on above: Height loss (Primary Dx) Start: 03-08-2023 End: 03-08-2023 Patient encounter procedure KYLE RODRIGUEZ [facility] Start: 01-20-2023 End: 01-21-[address] ILDA HENDRICKSON . Facility:[facility] Start: 12-02-2022 End: 12-02-2022 Patient encounter procedure Vianey Ty MENDOZA [facility] Start: 11-18-2022 End: 11-19-[address] ILDA HENDRICKSON . Facility:[facility] Start: 11-08-2022 End: 11-09-2022 ambulatory TAYLOR JOSHUA . Facility:[facility] Start: 11-01-2022 End: 11-01-2022 Patient encounter procedure KYLE RODRIGUEZ [facility] Start: 10-05-2022 End: 10-05-2022 Patient encounter procedure KYLE RODRIGUEZ [facility] Start: 09-07-2022 End: 09-07-2022 Patient encounter procedure Taylor Joshua [facility] Start: 08-28-2022 Letter encounter Jovita Virk MD Work Phone: [facility] Start: 08-17-2022 End: 08-17-2022 Patient encounter procedure Taylor Joshua [facility] Start: 08-12-2022 Telephone encounter Aarti vences MA, [facility], HANDLE FINISHER Work Phone: [facility] Start: 07-21-2022 End: 07-22-[address] ILDA HENDRICKSON . 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); Cognitive changes; Body mass index (BMI) 28.0-28.9, adult Start: 07-11-2022 End: 07-11-2022 Patient encounter procedure Vianey MENDOZA [facility] Start: 06-15-2022 End: 06-16-[address] SAEED Flores Facility:H1 Start: 06-13-2022 End: 06-13-2022 Patient encounter procedure Vianey MENDOZA [facility] Start: 04-27-2022 End: 04-28-[address] SAEED Flores Facility:[facility]1 Start: 04-07-2022 Refill Jovita Virk MD Work Phone: [facility] [place] [facility] Comment on above: Refill Start: 03-21-[address] ILDA HENDRICKSON . Facili ty:H1 Start: 03-17-[address] ILDA HENDRICKSON . Facili ty:H1 Start: 03-09-2022 Encounter for genera l adult medical examination without abnormal findings DR ILDA HENDRICKSON . [facility] Start: 03-07-2022 End: 03-08-2022 Encounter for general adult medical examination without abnormal findings DR ILDA HENDRICKSON . Facility:H1 Start: 03-07-2022 End: 03-08-[address] ILDA HENDRICKSON . Facility:[facility]1 Start: 03-01-2022 End: 03-01-2022 Patient encounter procedure Saeed Cantu Jr. [facility] Start: 02-01-2022 End: 02-01-2022 Patient encounter procedure Saeed Cantu Jr. [facility] Start: 01-04-2022 End: 01-04-2022 Patient encounter procedure Saeed Cantu Jr. [facility] Procedures Date Procedure Procedure Detail Performing [...] above: Performed By: #### T ESTTOT #### [facility] [address] [place] [address] Dr. Reuben Morrison Start: 03-07-[address] FABIÁN HENDRICKSON . Comment on above: Performed By: #### I BLAIR, PSASC, VITB12, VITAD #### [facility] [address] [place] [address] Dr. Reuben Morrison Start: 12-21-2016 Cystourethroscopy wi th dilation of urethral stricture Saeed Cantu JrMark Start: 08-25-2009 Colonoscopy Shawanda WAEL GREER Arthroplasty of knee Saeed Cantu JrMark Comment on above: Left side Arthroscopy of shoulder Jesus MEJIA Cardioversion Shawanda MEJIA Cervical arthrodesis Shawanda MEJIA Hernia repair Saeed Mcintosh pedro Repair of left ingui nal hernia Shawanda MEJIA Repair of musculoten dinous cuff of shoulder Saeed Cantu JrMark Transesophageal echocardiography Shawanda MEJIA Plan of Treatment Date Care Activity Detail Author Start: 2034 RSV vaccine (adult) (1 - 1-dose 75+ series) RSV vaccine (adult) (1 - 1-dose 75+ series) [facility] Start: 09-04-2031 DTaP,Tdap and Td Vaccines (2 - Tdap) DTaP,Tdap and Td Vaccines (2 - Tdap) [facility] Start: 09-04-2031 Urine microalbumin profile DTAP,TDAP,TD (2 - Tdap) [facility] Start: 06-15-2027 PROSTATE CANCER SCREENING DISCUSSION PROSTATE CANCER SCREENING DISCUSSION [facility] Start: 02-18-2026 Adult BMI Screening Adult BMI Screening [facility] Start: 02-18-2026 Tobacco Screening Tobacco Screening [facility] Start: 11-30-2025 Lipid panel Cholesterol [facility] Start: 07-15-2025 End: 07-15-2025 Patient encounter procedure 07/15/2025 3:00 PM EDT Office Visit [facility] [address] [place] [address] Sage Cam, [address] [place] [address] [facility] [address] Start: 06-25-2025 Influenza vaccination Influenza Vaccine (#1) [facility] Start: 06-11-2025 Adult BMI Screening Adult BMI Screening [facility] Start: 06-11-2025 Tobacco Screening Tobacco Screening [facility] Start: 06-11-2025 End: 06-11-2025 Patient encounter procedure 06/11/2025 10:30 AM EDT Office Visit [facility] [address] [place] [phone] Román Hoang MD [address] [place] [address] [facility] Start: 05-26-2025 Influenza vaccination Influenza Vaccine [facility] Start: 02-18-2025 End: 02-18-2026 XR K[facility] - [facility] Work Phone: Comment on above: Expected: 02/18/2025, Expires: Start: 11-02-2024 Adult BMI Screening Adult BMI Screening [facility] Start: 11-02-2024 Tobacco Screening Tobacco Screening [facility] Start: 07-17-2024 End: 07-17-2024 Patient encounter procedure 07/17/2024 2:30 PM EDT Office Visit [facility] [address] [place] [phone] Sage Cam DO [address] [place], [place] [id number] [facility] [address] Start: 06-12-2024 End: 06-12-2025 Thyrotropin [Units/volume] in Serum or Plasma TSH Lab Routine Sarah's disease (CMS/HCC) Expected: 06/12/2024 (Approximate), Expires: 06/12/2025 [facility] Comment on above: Expected: 06/12/2024 (Approximate), Expi res: 06/12/2025 Start: 06-12-2024 End: 06-12-2025 Thyroxine (T4) free [Mass/volume] in Serum or Plasma T4, free Lab Routine Sarah's disease (CMS/HCC) Expected: 06/12/2024 (Approximate), Expires: 06/12/2025 [facility] Comment on above: Expected: 06/12/2024 (Approximate), Expi res: 06/12/2025 Start: 06-12-2024 End: 06-12-2025 Triiodothyronine (T3) Free [Mass/volume] in Serum or Plasma T3, free Lab Routine Sarah's disease (CMS/HCC) Expected: 06/12/2024 (Approximate), Expires: 06/12/2025 [facility] Work Phone: Comment on above: Expected: 06/12/2024 (Approximate), Expi res: 06/12/2025 Start: 05-26-2024 COVID-19 Vaccine ( season) COVID-19 Vaccine ( season) [facility] Start: 05-26-2024 COVID-19 Vaccine ( season) COVID-19 Vaccine ( season) [facility] Start: 05-26-2024 Influenza vaccination [facility] Start: 02-22-2024 Fall Risk Screening Fall Risk Screening [facility] Start: 02-22-2024 Pneumococcal Vaccine: 65+ Years (1 of 1 - PCV) Pneumococcal Vaccine: 65+ Years (1 of 1 - PCV) [facility] Start: 05-26-2023 COVID-19 Vaccine ( season) COVID-19 Vaccine ( season) [facility] Start: 05-26-2023 Influenza vaccination INFLUENZA (#1) [facility] Start: 09-25-2022 DEPRESSION ASSESSMENT DEPRESSION ASSESSMENT [facility] Start: 09-20-2022 COVID-19 Vaccine (5 - Booster for Pfizer series) COVID-19 Vaccine (5 - Booster for Pfizer series) [facility] Start: 09-20-2022 COVID-19 VACCINE (5 - Pfizer series) COVID-19 VACCINE (5 - Pfizer series) [facility] Start: 07-19-2022 End: 07-19-2022 Patient encounter procedure 07/19/2022 Office Visit [facility] Re[facility] Jovita Virk MD [address] [place] [phone] [facility] [place] [facility] Start: 06-25-2022 Influenza vaccination Influenza Vaccine (#1) [facility] Start: 05-31-2022 Shingles (RZV) Vaccine (2 of 2) Shingles (RZV) Vaccine (2 of 2) [facility] Start: 01-19-2022 COVID-19 Vaccine (4 - Booster for Pfizer series) COVID-19 Vaccine (4 - Booster for Pfizer series) [facility] Start: 11-15-2021 COVID-19 Vaccine (4 - Booster for Pfizer series) COVID-19 Vaccine (4 - Booster for Pfizer series) [facility] Start: 09-05-2021 Lipid panel Cholesterol [facility] Start: 12-04-2020 DIABETES SCREEN DIABETES SCREEN [facility] Start: 2019 Hepatitis B (HBV) Vaccine (optional start 60+ years) Hepatitis B (HBV) Vaccine (optional start 60+ years) [facility] Start: 2019 RSV vaccine (optional 60+ years) RSV vaccine (optional 60+ years) [facility] Start: 11-23-2014 Annual wellness visit Annual Wellness Visit ([id number]) [facility] Start: 06-10-2012 Thyroid stimulating hormone measurement TSH [facility] Start: 2009 Measurement of occult blood in single stool specimen [facility] Start: 2009 Pneumococcal vaccination Pneumococcal Vaccine(s) (50+ yrs) (1 of 1 - PCV) [facility] Start: 2009 Screening for malignant neoplasm of colon CRC Screening [facility] Start: 2009 Shingles (RZV) Vaccine (1 of 2) Shingles (RZV) Vaccine (1 of 2) [facility] Start: 02-22-2004 COLOGUARD (FIT-DNA) COLOGUARD (FIT-DNA) [facility] Start: 02-22-2004 Colonoscopy COLONOSCOPY [facility] Start: 02-22-2004 COLORECTAL CANCER SCREENING COLORECTAL CANCER SCREENING [facility] Start: 02-22-[address] COLONOGRAPHY [facility] Start: 02-22-2004 FECAL OCCULT BLOOD FECAL OCCULT BLOOD [facility] Start: 02-22-2004 Screening for malignant neoplasm of colon [facility] Start: 02-22-2004 SIGMOIDOSCOPY SIGMOIDOSCOPY [facility] Start: 1994 LIPID SCREEN LIPID SCREEN [facility] Start: 1978 Hepatitis A (HAV) Vaccine (optional start 19+ years) Hepatitis A (HAV) Vaccine (optional start 19+ years) [facility] Start: 1977 Adult BMI Follow Up Plan Adult BMI Follow Up Plan [facility] Start: 1977 ANNUAL PCP TEAM CHRONIC DISEASE VISIT ANNUAL PCP TEAM CHRONIC DISEASE VISIT [facility] Start: 1977 Hepatitis C screening Hepatitis C Antibody [facility] Start: 1977 HEPATITIS C SCREENING HEPATITIS C SCREENING [facility] Start: 1977 HIV SCREENING HIV SCREENING [facility] Start: 1977 SPIROMETRY SPIROMETRY [facility] Start: 1977 Tetanus + diphtheria + acellular pertussis vaccine (product) Tdap Booster [facility] Start: 1974 HIV screening HIV Test [facility] Start: 1971 Depression Screening Depression Screening [facility] Start: 1965 PNEUMOCOCCAL (1 - PCV) PNEUMOCOCCAL (1 - PCV) [facility] Start: 1959 Medicare Annual Wellness Visit Medicare Annual Wellness Visit [facility] Start: 1959 Screening for malignant neoplasm of colon [facility] Arthrp kne condyle&p latu medial&lat compartments ROBOTIC REPLACEMENT TOTAL JOINT KNEE Primary osteoarthritis of right knee FLOWER [facility]GERY Hemoglobin [Mass/vol ume] in Blood [facility] Immunizations Immunization Date Immunization Notes Care Provider Fa cili 07-30-2024 influenza virus vaccine, unspecified formulation Osmin Anthony MD Work Phone: [facility] 08-10-2023 influenza virus vaccine, unspecified formulation Shawanda MEJIA [facility] [place] 08-10-2023 Influenza, injectable, Madin [place] Canine Kidney, preservative free, quadrivalent [facility] Work Phone: 08-29-2022 zoster vaccine recombinant Shawanda Hernandez PA-C Work Phone: [facility] 07-26-2022 Moderna Monovalent (12+ yrs) COVID-19 vaccine, mRNA, spike protein, LNP, PF, 100 mcg/0.5 mL ([id number]=030) [facility] [place] 07-25-2022 Influenza, injectable, Madin [place] Canine Kidney, preservative free, quadrivalent Jovita Virk MD Work Phone: [facility] 04-05-2022 zoster vaccine recombinant Jovita Virk MD Work Phone: [facility] 09-20-2021 SARS-CoV-2 (COVID-19 ) mRNA BNT-162b2 vax Shawanda MEJIA [facility] 09-04-2021 diphtheria, tetanus toxoids and pertussis vaccine Jovita Virk MD Work Phone: [facility] 08-25-2021 SARS-CoV-2 (COVID-19 ) Ad26 vaccine, recombinant Saeed Cantu Jr. [facility] 08-10-2021 influenza, injectable, quadrivalent, preservative free Jovita Virk MD Work Phone: [facility] 08-10-2021 influenza virus vaccine, unspecified formulation Jovita Virk MD Work Phone: [facility] 06-25-2021 influenza virus vaccine, unspecified formulation Saeed Cantu . [facility] 12-22-2020 Pfizer (12+ yrs) SARS-COV-2 (COVID-19) vaccine, mRNA, spike protein, LNP, pres. free, 30 mcg/0.3mL dose (ZRC=097) Jovita Virk MD Work Phone: [facility] 03-08-2021 Pfizer (12+ yrs) SARS-COV-2 (COVID-19) vaccine, mRNA, spike protein, LNP, pres. free, 30 mcg/0.3mL dose (HGC=786) Jovita Virk MD Work Phone: [facility] 08-25-2020 influenza virus vaccine, unspecified formulation Saeed Cantu Jr. [facility] 06-30-2020 influenza, injectable, quadrivalent, preservative free Jovita Virk MD Work Phone: [facility] 12-25-2019 SARS-CoV-2 (COVID-19 ) mRNA BNT-162b2 vax Saeed Cantu Jr. [facility] 11-24-2019 SARS-CoV-2 (COVID-19 ) mRNA BNT-162b2 beau Cantu Jr. [facility] Payers Date Payer Category Payer Self-pay 2023 Unknown [id number] 2022 [facility] [id number] 2022 [facility] - [facility] [id number] 2022 Unknown [id number] 2021 Commercial Indemnity MEDICAL MUT UAL - TRADITIONAL [id number]. [id number] 2017 Unknown [id number] 1.13.56.2. [id number] 2017 Unknown [id number] 2013 Medicare [id number] 1.13.56.2. [id number] 2013 Medicare FFS MEDICARE [id number]. [id number] 1959 Medicare [id number] 1959 Self-pay [id number] 1959 Unknown [id number] 2.16.840.1.710885.3.579.2 .593 1959 Unknown [id number] 2.16.840.1.814513.3.579.2 .593 1959 Unknown [id number] 2.16.840.1.674776.3.579.2 .593 1959 Unknown [id number] 2.16.840.1.898756.3.579.2 .593 1959 Unknown [id number] 2.16.840.1.550212.3.579.2 .593 1959 Unknown [id number] 2.16.840.1.202401.3.579.2 .59 1959 Unknown [id number] 2.16.840.1.827433.3.579.2 .59 1959 Unknown [id number] 2.16.840.1.685138.3.579.2 .59 1959 Unknown [id number]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 + Plan note Future Appointments Appointment Date:07/11/2022 10:15:00 AM Scheduled Provider: Location:[facility] Appointment Type:URO Nurse Visit [facility] evaluation + Plan note Future Appointments Appointment Date:09/07/2022 10:00:00 AM Scheduled Provider: Location:[facility] Appointment Type:URO Nurse Visit [facility] evaluation + Plan note Future Appointments Appointment Date:10/05/2022 10:00:00 AM Scheduled Provider: Location:[facility] Appointment Type:URO Nurse Visit [facility] evaluation + Plan note Future Appointments Appointment Date:11/01/2022 10:00:00 AM Scheduled Provider: Location:[facility] Appointment Type:URO Nurse Visit [facility] evaluation + Plan note Future Appointments Appointment Date:11/30/2022 10:00:00 AM Scheduled Provider:Taylor Josuha MD Location:[facility] Appointment Type:URO Office Visit Diagnostic Tests Pending * CBC w/ Auto Diff 11/01/22 * Testosterone Level Total 11/01/22 [facility] evaluation + Plan note Diagnostic Tests Pending * Testosterone Level Total 12/17/22 * Testosterone Level Total 04/25/23 [facility] evaluation + Plan note Future Appointments Appointment Date:04/05/2023 10:00:00 AM Scheduled Provider: Location:[facility] Appointment Type:URO Nurse Visit [facility] evaluation + Plan note Future Appointments Appointment Date:05/30/2023 10:00:00 AM Scheduled Provider: Location:[facility] Appointment Type:URO Nurse Visit [facility] evaluation + Plan note Future Appointments Appointment Date:07/10/2023 09:30:00 AM Scheduled Provider: Location:[facility] Appointment Type:URO Nurse Visit Appointment Date:11/27/2023 09:45:00 AM Scheduled Provider:Vianey MENDOZA MD Location:[facility] Appointment Type:URO Office Visit Diagnostic Tests Pending * Testosterone Level Total 06/12/23 * PSA Total 06/12/23 * CBC w/ Auto Diff 06/12/23 [facility] evaluation + Plan note Future Appointments Appointment Date:10/21/2024 10:15:00 AM Scheduled Provider:Vianey MENDOZA MD Location:[facility] Appointment Type:URO Office Visit Diagnostic Tests Pending * PSA Total 10/16/23 [facility] evaluation + Plan note Future Appointments Appointment Date:10/21/2024 10:15:00 AM Scheduled Provider:Vianey MENDOZA MD Location:[facility] Appointment Type:URO Office Visit [facility] Evaluation + Plan note Future Appointments Appointment Date:10/27/2025 10:30:00 AM Scheduled Provider:Vianey MENDOZA MD Location:[facility] Appointment Type:URO Office Visit Diagnostic Tests Pending * PSA Total 10/21/24 * Testosterone Level Total 10/21/24 [facility] evaluation note* 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 [facility]* Diagnosis Primary osteoarthritis of right knee- Primary documented in this encounter [facility]* Diagnosis Primary osteoarthritis of right knee- Primary documented in this encounter [facility]* Diagnosis Primary osteoarthritis of right knee- Primary documented in this encounter [facility]* Diagnosis Primary osteoarthritis of right knee- Primary documented in this encounter [facility]* Diagnosis Onset Date Resolution Status Admit Date Primary osteoarthritis of ri ght knee acute May 13 10:39am [facility] Work Phone: Hospital course Narrative No data available for this section [facility] Hospital Discharge instructions No data available for this section [facility] InstructionsNot on filedocumented in this encounter [facility] SystemInstructionsNot on filedocumented in this encounter [facility] SystemInstructions* Attachments The following attachments cannot be sent through Care Everywhere. * Steroid injection ([place]) * Knee replacement ([place]) documented in this encounterProMedimd Health SystemProgress note No data available for this section [facility] reason for referral (narrative)No reason for referral information availableUniversity Hospitals St. [facility] Work Phone: Advance Directives Latest Code Status on File [...] Code 09/05/2016 8:43 PM 09/08/2016 4:31 PM Date Activated Date Inactivated Comments 06/09/2011 2:48 PM 06/28/2011 2:29 PM Date Activated Date Inactivated Comments 06/05/2011 4:23 AM 06/09/2011 2:48 PM Reason for Referral Specialty Diagnoses / Procedures Referred By Stephany flower Referred To Contact Neuroradiology Diagnoses Cognitive changes Late effect of brain injury (HCC) Jovita Virk MD [address] [place] [phone] Referral ID Status Reason Start Date Expiration Date Visits Requested Visits Authorized [id number] Authorized Patient Preference 2 07/20/2023 3 3 Comments Brain MRI without contrast. H/o TBI 2010. Continues to struggle with cognitive deficits, fatigue, impaired balance, unimproved. Please evaluate for other structural causes of these issues. Fax report to me at [phone]. Specialty Diagnoses / Procedures Referred By Contac t Referred To Contact Speech Pathology Diagnoses Cognitive changes Late effect of brain injury (HCC) Jovita Virk MD [address] [place] [address] [address] [place] [address] Referral ID Status Reason Start Date Expiration Date Visits Requested Visits Authorized [id number] Pending Review Consultatio n-[facility] 2 07/20/2023 10 10 Question Answer Is [...] Complaint and Reason for Visit Chief Complaint Admit Date M25.561 - Pain in right knee April 10:31am [facility]-NEW RT KNEE PAIN NX May 13 10:39am Reason for Visit Admit Date Primary osteoarthritis of right knee Apr ust 2024 10:39am Chief Complaint Unknown RENAL 1 year follow up Reason for Visit BPH (benign prostati c hyperplasia) CKD (chronic kidney disease) stage 2, GFR 60-89 ml/min [id number] NANCY (obstructive sleep apnea) Renal cyst Additional [...] Care Teams (unrecognized sec tion and content) Team Status: Active Member Role Status Dates Ilda Hendrickson MD Primary Care Provider Active Team Status: Inactive Member Role Status Dates Ilda Hendrickson MD Primary Care Provider Active Start: May 13, 2025 End: May 13, 2025 Scot Hutchison II, MD Attending Provider Active Start: May 13, 2025 End: May 13, 2025 Team Status: Active Member Role Status Dates Ilda Hendrickson MD Primary Care Provider Active Start: May 13, 2025 Scot Hutchison II, MD Attending Provider Active Start: May 13, 2025 Solid Waste Manager Relationship Specialty Start Date End Date Jovita Virk MD [address] [place] [address] Physician Physical Medicine & Rehab/PM&R 06/30/20 Solid Waste Manager Relationship Specialty Start Date End Date Jovita Virk MD [address] [place] [address] Physician Physical Medicine & Rehab/PM&R 06/30/20 Solid Waste Manager Relationship Specialty Start Date End Date Jovita Virk MD [address] [place], [place] Physician Physical Medicine & Rehab/PM&R 06/30/20 Solid Waste Manager Relationship Specialty Start Date End Date Ilda Hendrickson MD PCP - General Family Medicine 12/04/17 Team Status: Inactive Member Role Status Dates [...] June 06, 2024 End: June 06, 2024 Solid Waste Manager Relationship Specialty Start Date End Date Ilda Hendrickson MD [address] [place] [address] PCP - General Family Medicine 05/13/24 Solid Waste Manager Relationship Specialty Start Date End Date Ilda Hendrickson MD [address] [place] [phone] PCP - General Family Medicine 05/13/24 Solid Waste Manager Relationship Specialty Start Date End Date Ilda Hendrickson MD [address] [place] [address] PCP - General Family Medicine 05/13/24 Solid Waste Manager Relationship Specialty Start Date End Date Ilda Hendrickson MD [address] [place] [address] PCP - General Family Medicine 05/13/24 Solid Waste Manager Relationship Specialty Start Date End Date Ilda Hendrickson MD PCP - General 07/05/16 Solid Waste Manager Relationship Specialty Start Date End Date Ilda Hendrickson MD [address] [place] [address] PCP - General 07/05/16 Solid Waste Manager Relationship Specialty Start Date End Date Ilda Hendrickson MD PCP - General 07/05/16 Solid Waste Manager Relationship Specialty Start Date End Date Ilda Hendrickson MD PCP - General 07/05/16 Solid Waste Manager Relationship Specialty Start Date End Date Jovita Virk MD [facility] [place] [address] Physician Physical Medicine & Rehab/PM&R 06/30/20 (unrecognized sect ion and content) No Status Records FoundNo Status Records FoundNo Status Records FoundNo Status Records FoundNo Status Records FoundNo Status Records FoundNo Status Records FoundNo Status Records Found INFORMATION SOURCE (unrecogn ized section and content) DATE CREATED AUTHOR 01/27/2023 [facility] DATE CREATED AUTHOR AUTHOR'S ORGANIZ ATION 04/27/2023 [facility] DATE CREATED AUTHOR AUTHOR'S ORGANIZ ATION 09/23/2023 [facility] DATE CREATED AUTHOR AUTHOR'S ORGANIZ ATION 07/19/[address] [facility] DATE CREATED AUTHOR AUTHOR'S ORGANIZ ATION 10/23/2024 [facility] DATE CREATED AUTHOR AUTHOR'S ORGANIZ ATION 2025 [facility] DATE CREATED AUTHOR AUTHOR'S ORGANIZ ATION 2025 [facility] DATE CREATED AUTHOR AUTHOR'S ORGANIZ ATION 05/18/2025 [facility] Source Comments (unrecognize d section and content) In the event this informatio n is protected by the Federal Confidentiality of Alcohol and Drug Abuse Patient Records regulations: The Federal rules restrict any use of the information to criminally investigate or prosecute any alcohol or drug abuse patient.[facility] Goals (unrecognized section and content) Goals [...] BE BASED ON THE PRIMARY CLINICAL RECORDS. [facility] [employer] [facility]. provides no warranty or guarantee of the accuracy or completeness of information in this document.
[2025-05-29] MEDS: REGADENOSON 0.4 MG/5 ML SYRINGE IV (11:50)
--- NOTE | 2025-05-29 11:51 | PC.NURSE ---
Nursing Note Cardiac Stress Test Reviewed: Medication, allergies and patient history reviewed. Stress Test: [x ] Patient tolerated stress test well. [ ] Patient unable to tolerate walking on treadmill. Switched to Lexiscan stress test. [x ] No chest pain noted per patient [ ] Chest pain that resolved prior to leaving stress lab. [x ] No dyspnea noted. [ ] Dyspnea that resolved prior to leaving stress lab. [x ] Patient left stress lab asymptomatic and hemodynamically stable. [ ] Patient taken to the Emergency Room due to non-resolving symptoms following stress test. [ ] Patient achieved target heart rate. [ ] Patient unable to achieve target heart rate. [ ] Aminophylline administered as reversal agent to Lexiscan (Regadenoson). [ ] Nitro administered. Nursing Comments:Pt had Lexiscan test. No symptoms reported. Pt ambulated to cafeteria for breakfast prior to second set of images.
--- NOTE | 2025-05-30 17:04 | PM.STRESS ---
Stress Test Stress Test Allergies Allergy/AdvReac Type Severity Reaction Status Date / Time ciprofloxacin (From Cipro) Allergy Unknown Verified 05/16/24 14:14 Requesting physician: George Loza Procedure: Lexiscan Pharmacological Stress Test General Information: Reason for Stress Test: [Preoperative clearance] Cardiac History and Risk Factors: [HTN, AF] Resting 12 - Lead Electrocardiogram: Marked sinus bradycardia Abnormal ECG Stress Test: Protocol: [Lexiscan stress test] Exercise Capacity: [N/A] Blood Pressure Response: [N/A] Rhythm: [N/A] ST - Response: [No significant ST T wave changes] Patient Response: [No symptoms] Interpretation: 1. No ischemic EKG changes on Lexiscan stress test 2. Marked sinus bradycardiac at baseline 3. Nuclear images to be read, interpreted, and reported seperately
== END 2025-05-29 09:39 | disposition home or self-care (01) ==
LOC: NM 09:38
PROVIDERS: PCP Family Medicine; Visit Provider Internal Medicine Interventional Cardiology
DX: Z01.810 Encounter for preprocedural cardiovascular examination (principal); Z01.818 Encounter for other preprocedural examination
CPT/HCPCS: 78452; 93017; A9500; J2785

== ENCOUNTER 2025-06-11 08:11 | Outpatient (OUT) | payer BC, MEDICARE, SELFPAY ==
--- OUTSIDE RECORDS SUMMARY | 2025-06-11 08:18 | XMS_ITS | CCD ---
Author Organization [facility] Care Team Providers Care Urgent Care Physician Assistant Name Role Phone Ilda Hendrickson Primary [...] DR GONSALES Admitting Unavailable HOY ., DR OGNSALES Attending Unavailable HOY ., DR GONSALES Consulting Unavailable HOY ., DR GONSALES Primary Care Unavailable HOY ., DR GONSALES Attending Unavailable HOY ., DR GONSALES Admitting Unavailable HOY ., DR GONSALES Primary Care Unavailable HOY ., DR GONSALES Attending Unavailable HOY ., DR GONSALES Admitting Unavailable HOY ., DR GONSALES Primary Care Unavailable Ilda Hendrickson MD Primary Care Provider [phone] ILDA HENDRICKSON Primary Care Unavailable SHAWANDA HERNANDEZ Attending Unavailable Antonia, Sandoval Unavailable MD Ilda Hendrickson Primary Care Provider [phone] MD Tracy Griffin Attending Provider Ilda Hendrickson MD Primary Care Provider [phone] ROMÁN HOANG Attending Unavailable SAGE CAM Attending Unavailable Unavailable Primary Care Provider Unavailabl e Ilda Hendrickson MD Primary Care Provider [phone] Shawanda MEJIA Attending Unavailable MENDOZA, Vianey Crawford Attending Unavailable MENDOZA, Vianey R Attending Unavailable MENDOZA, Vianey R Attending Unavailable NILShawanda Landa R Attending Unavailable Shawanda MEJIA Attending Unavailable Ilda Hendrickson MD Primary Care Provider [phone] Ilda Hendrickson MD Primary Care Provider [phone] OSMIN ANTHONY Attending Unavaila ble ILDA HENDRICKSON M Referring Unavailable ILDA HENDRICKSON M Primary Care Unavailable OSMIN ANTHONY Attending Unavaila ble ILDA HENDRICKSON M Primary Care Unavailable HOILDA Granados M Referring Unavailable OSMIN ANTHONY Attending Unavaila ble ILDA HENDRICKSON M Primary Care Unavailable ILDA HENDRICKSON M Referring Unavailable OSMIN ANTHONY Referring Unavaila ble ILDA HENDRICKSON Primary Care Unavailable Ilda Hendrickson MD Primary Care Provider [phone] Scot Hutchison MD Attending Provider [phone] Scot Hutchison II Attending Scot Wan II Admitting Ilda Frost Primary Care Unavailable Moose PRIETO, Jovita Unavailable GEORGE LOZA Attending Unavailable BAKARI SCOTT Attending Unavailable Allergies Allergy Classification Reported Allergen(s) Allergy Type Date of Onset Reaction(s) Facility (6 sources) Ciprofloxacin; Translations: [ciprofloxacin] Drug Allergy 4 Patient reported problems (finding) [facility] [place] (1 source) Ciprofloxacin; Translations: [Cipro] Drug Allergy [facility] Repository (1 source) No Known Medication Allergies; Translations: [No Known Medication Allergies] Propensity to adverse reactions (disorder) [facility] Repository (1 source) Ciprofloxacin Drug Allergy 5 [facility] Repository Medications Current Medications Medication Drug Class(es) [...] q4wk, # 10 mL, Refills(s) 1, Pharmacy: [facility]/pharmacy #[id number], 167, cm, 10/05/21 [...] take 1 capsule by mouth once daily Bennett-3 Fatty Acids (FISH OIL) 1000 MG CAPS [...] 1 capsule by mouth once [facility] [facility] Aspartate 20 mg cap Take 1 capsule by mouth once daily. 0 Active Comment on above: Take 1 capsule by mo [facility] once daily. memantine hydrochloride 5 mg oral tablet (6 sources) W-iixibx-O-aspartat e Receptor Antagonist Start: 2 End: 2 [...] day(s), # 180 cap(s), Refills(s) 3, Pharmacy: [facility]/pharmacy #[id number], 167, cm, 10/05/21 11:32:00 EST, Height/Length Dosing, 83, kg, 10/05/21 11:32:00 EST, Weight Dosing Start Date: 11/24/21 Stop Date: 11/19/22 Status: Ordered Start: 02-08-2017 take 1 capsule by mo [facility] once daily tamsulosin (FLOMAX) 0.4 MG capsule Take 1 Capsule by mouth daily. 30 Capsule 5 02/08/2017 Active take 1 capsule by [facility] [...] q4wk, # 10 mL, Refills(s) 1, [id number], cm, 12/02/22 8:17:00 EST, Height/Length Dosing, 83.2, kg, 12/02/22 8:17:00 EST, Weight Dosing Start Date: 05/03/23 Status: Ordered Start: 09-07-2022 Depo-Testoster one 200 mg/mL intramuscular solution 300 mg, IntraMuscular, q4wk, # 10 mL, Refills(s) 1, Pharmacy: [facility]/pharmacy #[id number], 167, cm, 10/05/21 11:32:00 EST, Height/Length Dosing, 83, kg, 05/10/22 10:08:00 EDT, Weight Dosing Start Date: 09/07/22 Status: Ordered Start: 01-04-2022 Depo-Testoster one 200 mg/mL intramuscular solution 300 mg, IntraMuscular, q4wk, # 10 mL, Refills(s) 1, Pharmacy: 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] 05-13-2025 Episodic Other and ill-defined cerebrovascular disease (3 sources) Cerebrovascular disease 04-29-2024 Chronic Other circulatory disease (1 source) Orthostatic hypotension; Translations: [Orthostatic hypotension] 11-30-2017 Episodic Other connective tissue disease (9 sources) [...] Onset: 07-05-2011 Chronic Other nervous system disorders (5 [...] done] Onset: 2 Episodic Residual codes; unclassified (9 sources) Sleep [...] 08-24-2011 Episodic Other circulatory disease (2 sources) Personal history of other diseases of the circulatory system; Translations: [Personal history of other diseases of the circulatory system] Onset: 11-16-2023 Episodic Other connective tissue disease (5 sources) [...] sources) Memory loss Onset: 06-28-2011 01-08-2019 Episodic Residual codes; unclassified (2 sources) Other specified postprocedural states; Translations: [Other specified postprocedural states] Onset: 11-16-2023 Episodic Spondylosis; intervertebral disc disorders; other back [...] Name Value Interpretation Reference Range Facility 36on 06-02-2025 36 Regarding stress elaine t result from 05/29/2025: George Loza MD 06/02/25 11:10 AM Please reassure them that his stress test is negative; he can proceed with any operation as needed. Recommend strict heart rate and blood pressure control and avoidance of major fluid shifts perioperatively. Thanks Me to George Loza MD [facility] 06/02/25 1:21 PM Thanks. The surgeon doing his knee replacement would also like to know if he can hold Eliquis prior to surgery for 3 days. Please advise. Thanks. George Loza MD to 06/02/25 2:30 PM Most definitely. No need for bridging. Thanks! LM for patient's Nitza on her VM. This note faxed to orthopedic office performing his surgery. Normal [facility] Orders Onlyon 06-02-2025 Orders Only [id number] Vianey Lacey 1960 M Date Provider Department [place] 06/02/2025 [id number], HISTORICAL CARD [facility] Family History Problem Relation Age of Onset Cancer Mother Diabetes Mother Coronary artery disease Father Stroke Father Cancer Father Family Status - Relation Status Age at Mother Father Sister Brother Normal [facility] Glucose mean value [Mass/vol ume] in Blood Estimated from glycated hemoglobinOrdered By: Scot Hutchison on 05-13-2025 Average glucose Estimated from glycated hemoglobin (Bld) [Mass/Vol] 100 mg/dL [facility] Hemoglobin A1c percentageOrd ered By: Scot Hutchison on 05-13-2025 HbA1c (Bld) [Mass fraction] 5.1 % 4.5-6.2 [facility] Comment on above: ADA RECOMMENDED LIMI T 4.0 - 6.0ADA THERAPEUTIC TARGET < 7.0ACTION SUGGESTED> 7.0 Laboratory - Chemistry and C hemistry - challengeOrdered By: Scot Hutchison on 05-13-2025 Albumin [Mass/Vol] 4.2 g/dL 3.4-5.0 [facility] No Panel InformationOrdered By: Scot Hutchison on 05-13-2025 25-Hydroxy Vitamin D Total 78.3 ng/mL [facility] Comment on above: <20 ng/mL Vit D defi cient20-<30 ng/mL Vit D yqtjmqtcotny56-455 ng/mL Vit D sufficient>100 ng/mL Potential Toxicity 36on 02-20-2025 36 Regarding lab result s from 02/12/2025: MD Lakshmi Stone MA Please let him know that his serum creatinine is normal. Thank you. Patient's informed. Normal [facility] XR KNEE RT MIN 4 VWSon 02-19 [...] Duncan MD on 02/19/2025 4:30 PM Normal [facility] $ Large Joint Injection: Ty alarcon [...] to prep the skin.). MANUALLY TRANSCRIBED RESULTS [facility] Orders Onlyon 02-13-2025 Orders Only [id number] Vianey Lacey 1960 M Date Provider Department Center 02/13/2025 [id number], HISTORICAL CARD [facility] Family History Problem Relation Age of Onset Cancer Mother Diabetes Mother Coronary artery disease Father Stroke Father Cancer Father Family Status - Relation Status Age at Mother Father Sister Brother [facility] Office Visiton 01-21-2025 Follow-up visit [id number] Vianey Lacey 1960 M Date Provider Department Center 01/21/2025 Isa-GEORGE LOZA MAXWELL [facility] Family History Problem Relation Age of Onset Cancer Mother Diabetes Mother Coronary artery disease Father Stroke Father Cancer Father Family Status - Relation Status Age at Mother Father Sister Brother Level of Service:57142 RI OFFICE/OUTPATIENT ESTABLISHED MOD MDM 30 MIN [facility] 36on 11-21-2024 36 Patient's would like you to review his most recent labs from 11/20/2024 and see if he should start lisinopril. 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 Nitza says he never started lisinopril because they were keeping an eye on his renal function. Recent BP's have been 141/84, 136/83, 143/87, 141/83. Also, she is looking into buying an infrared sauna, but wasn't sure how you felt about PJ using it with his heart and kidney issues. Please advise. Thanks! [facility] Urology Office/Clinic Noteon 10-21-2024 Urology Office/Clinic Note Urology Office/Clinic Note Chief Complaint 1 year f/u HPI Staff 64yr old male pt here for 1yr f/u with PSA. Previous Dx: BPH with urinary obstruction, hypogonadism male, urge incontinence, ED *Tamsulosin 0.4mg QD PSA 09/06/21 - 0.70 06/15/22 - 0.79 He did have labs done @ [facility] but no PSA Dysuria: denies Incomplete bladder [...] URL [facility] [address], [place] [address] [phone] Additional Instructions: 1 yr w/ PSA and [...] levothyroxine 150 (more content not included)... Normal [facility] Comment on above: Result Comment: Elec tronically Signed By: Vianey MENDOZA MD\.br\Date and Time Signed: 10/21/24 11:59 EST\.br\Electronically Co-Signed By: Nicki Jackson\.br\Date and Time Co-Signed: 10/21/24 11:57 EST $ Large Joint Injection: Ty fang 10-08-2024 Osmin Anthony MD 10/08/2024 2:51 [...] with betadine and alcohol.). MANUALLY TRANSCRIBED RESULTS [facility] Ambulatory Visit Summaryon 1 10-13-2023 Ambulatory [...] With: Vianey MENDOZA MD Where: [facility] [address] [place] [address] [place] [address]- Medications What How Much When Instructions Unchanged [...] for choosing us for your care. Normal [facility] Office Visiton 07-16-2024 Follow-up visit [id number] Vianey Lacey 1960 M Date Provider Department Center 07/16/2024 Dem[facility]AR[facility] Family History Problem Relation Age of Onset Cancer Mother Diabetes Mother Coronary artery disease Father Stroke Father Cancer Father Family Status - Relation Status Age at Mother Father Level of Service:51323 RI OFFICE/OUTPATIENT ESTABLISHED LOW MDM 20 MIN Normal [facility] $ Large Joint Injection: R k neeon [...] with betadine and alcohol.). MANUALLY TRANSCRIBED RESULTS [facility] Orders Onlyon 06-11-2024 Orders Only [id number] EdieVianey arboleda Dayna 1960 M Date Provider Department Center 06/11/2024 [id number], DANILOAB [facility] Family History Problem Relation Age of Onset Cancer Mother Diabetes Mother Coronary artery disease Father Stroke Father Cancer Father Family Status - Relation Status Age at Mother Father Normal [facility] Erythrocyte distribution wid th Auto (RBC) [Ratio]on 06-03-2024 Erythrocyte distribution width (RBC) [Ratio] 13.3 % 11.0-15.0 [facility] Estimated glomerular filtrat ion rate (GFR) non- Americanon 06-03-2024 GFR/1.73 sq M.predicted among non-blacks MDRD (S/P/Bld) [Vol rate/Area] mL/min/{1.73_m2} >=60 [facility] Hematocrit Auto (Bld) [Volum e fraction]on 06-03-2024 Hematocrit (Bld) [Volume fraction] 45.4 % 42.0-54.0 [facility] Hemoglobin [Mass/volume] in Bloodon 06-03-2024 Hemoglobin (Bld) [Mass/Vol] 15.4 g/dL 14.0-18.0 [facility] Laboratory - Chemistry and C hemistry - challengeon 06-03-2024 Albumin [Mass/Vol] 3.8 g/dL 3.4-5.0 [facility] Calcium [Mass/Vol] 8.9 mg/dL 8.5-10.1 [facility] Chloride [Moles/Vol] 101 mmol/L 98-107 [facility] CO2 [Moles/Vol] 31.2 mmol/L 21.0-32.0 [facility] Creatinine [Mass/Vol] 1.06 mg/dL 0.70-1.30 [facility] GFR/1.73 sq M.predicted MDRD (S/P/Bld) [Vol rate/Area] mL/min/{1.73_m2} >=60 [facility] Glucose [Mass/Vol] 91 mg/dL 74-106 [facility] Magnesium [Mass/Vol] 1.9 mg/dL 1.8-2.4 [facility] Potassium [Moles/Vol] 3.9 mmol/L 3.5-5.1 [facility] Sodium [Moles/Vol] 138 mmol/L 136-145 [facility] Urate [Mass/Vol] 4.7 mg/dL 3.5-7.2 [facility] Urea nitrogen [Mass/Vol] 18.0 mg/dL 7.0-18.0 [facility] Urea nitrogen/Creatinine [Mass ratio] 17.0 mg/mg [facility] Bilirubin Ql (U) Negative NEGATIVE [facility] Glucose (U) [Mass/Vol] Negative NEGATIVE [facility] Ketones Ql (U) Negative NEGATIVE [facility] pH (U) 5.5 [pH] 5.0-9.0 [facility] Specific gravity (U) [Rel density] 1.020 1.005-1.025 [facility] Urobilinogen Qn (U) 0.2 {Brenda'U}/dL 0.2-1.0 [facility] Laboratory - Specimen inform ationon 06-03-2024 Appearance (U) CLEAR CLEAR [facility] Color (U) YELLOW YELLOW [facility] Laboratory - Urinalysison Leukocyte esterase Test strip Ql (U) Negative NEGATIVE [facility] Mucus Ql (Urine sed) NONE SEEN NONE SEEN [facility] Nitrite Ql (U) Negative NEGATIVE [facility] Protein (U) [Mass/Vol] 6.9 mg/dL <=11.9 [facility] Protein Ql (U) Negative NEG/TRACE [facility] Leukocytes [#/volume] correc kim for nucleated erythrocytes in Blood by Automated counon 06-03-2024 WBC corrected for nucl RBC Auto (Bld) [#/Vol] 3.2 10 3/uL Low 4.0-11.0 [facility] MCH Auto (RBC) [Entitic mass ]on 06-03-2024 MCH (RBC) [Entitic mass] 29.7 pg 25.9-34.0 [facility] MCHC Auto (RBC) [Mass/Vol]on 06-03-2024 MCHC (RBC) [Mass/Vol] 33.9 g/dL 29.9-35.2 [facility] MCV Auto (RBC) [Entitic vol] on 06-03-2024 MCV (RBC) [Entitic vol] 87.5 fL 80.0-94.0 [facility] No Panel Informationon 06-03 25-Hydroxy Vitamin D Total 74.8 ng/mL [facility] Comment on above: <20 ng/mL Vit D defi cient20-<30 ng/mL Vit D cufwugdsbokv14-312 ng/mL Vit D sufficient>100 ng/mL Potential Toxicity Parathyroid Hormone (Intact) 34 pg/mL 15-65 [facility] Comment on above: Performed at: [address] [id number] Director: Aleks Ferreira PhD, Phone: [phone] Phosphorus Level 2.9 mg/dL 2.6-4.7 [facility] Urine Bacteria NONE SEEN #/HPF NONE SEEN [facility] Urine Occult Blood Negative NEGATIVE [facility] Urine Random Creatinine 107.55 mg/dL 20.00-300.00 [facility] Urine RBC NONE SEEN #/HPF 0-2 [facility] Urine Squamous Epithelial Cells RARE #/LPF NONE/RARE [facility] Urine WBC NONE SEEN #/HPF NONE SEEN [facility] Platelet mean volume Auto (B ld) [Entitic vol]on 06-03-2024 Platelet mean volume (Bld) [Entitic vol] 9.5 fL 9.5-13.5 [facility] Platelets Auto (Bld) [#/Vol] on 06-03-2024 Platelets (Bld) [#/Vol] 126 10 3/uL Low 150-450 [facility] RBC Auto (Bld) [#/Vol]on RBC (Bld) [#/Vol] 5.19 10 6/uL 4.70-6.10 [facility] Serum or plasma anion gap de terminationon 06-03-2024 Anion gap [Moles/Vol] 9.7 mmol/L Fir [facility] Urine protein/creatinine rat ioon 06-03-2024 Protein/Creatinine (U) [Ratio] 0.06 [facility] Reminderson 05-30-2024 Reminders Reminders From: Melissa Nash LPN To: N - Clinical; Sent: 05/30/2024 15:23:45 EDT Show up: 04/28/2034 07:00:00 EDT Subject: colonoscopy recall Due Date/Time: 05/29/2034 07:00:00 EDT Reminder/Recall Patient due for screening colonoscopy 05/29/2034. Normal [facility] Ambulatory Visit Summaryon 0 05-07-2024 Ambulatory [...] PRIETO, Vianey Crawford Where: [facility] of [address] [address]- Medications What How Much When Instructions Unchanged [...] for choosing us for your care. Normal [facility] $ Large Joint Injection: R aric fang [...] with betadine and alcohol.). MANUALLY TRANSCRIBED RESULTS Divitel [facility] Physician Referralon 024 Physician Referral [phone] [id number] Normal [facility] Telephone Encounteron 2022 Licensed Guide Authentication Interface Message Text Patient has not been seen by this specialist in more than 1 year. Please contact patient to schedule office visit. Thank you Normal [facility] [email or web address] [facility] CNOVon 04-26-2023 CN Office Visit (SPMESH ) VIANEY LACEY ([id number]) 1960 M Date Time Provider Department 04/26/23 11:00 AM [facility] During your visit today, we recorded the [...] palpable masses (more content not included)... Normal [facility] TESTOSTERONE, TOTALon 2022 Testosterone [Mass/Vol] 347 ng/dL Normal 264-916 [facility] Comment on above: Result Comment: Adul t male reference interval is based on a population of healthy nonobese males (BMI <30) between 19 and 39 years old. Brad et.al. JCEM 2017,102;3915-0064. PMID: [id number]. Performed By: #### T ESTTOT #### [facility] [address] [place] [address] Dr. Reuben Morrison XR TSPINE 3 VIEWSon [...] ALFREDITO LOAIZA Date: 2022-11-18 16:11 Normal [facility] TESTOSTERONE, TOTALon 2022 Testosterone [Mass/Vol] 993 ng/dL Critically high 264-916 [facility] Comment on above: Result Comment: Adul t male reference interval is based on a population of healthy nonobese males (BMI <30) between 19 and 39 years old. Brad et.al. JCEM 2017,102;0054-1431. PMID: [id number]. Performed By: #### T ESTTOT #### [facility] [address] [place] [address] Dr. Reuben Morrison CBC AUTO DIFFon 06-15-2022 BASO # 0.0 103/ul Normal 0.0-0.1 [facility] Comment on above: Performed By: #### C BC #### [facility] [address] [place] [address] Dr. Reuben Morrison Basophils/100 WBC (Bld) 0.4 % Normal 0.2-2.0 [facility] Comment on above: Performed By: #### C BC #### [facility] [address] [place] [address] Dr. Reuben Morrison EO # 0.1 103/ul Normal 0.0-0.7 [facility] Comment on above: Performed By: #### C BC #### [facility] [address] [place] [address] Dr. Reuben Morrison Eosinophils/100 WBC (Bld) 1.3 % Normal 0.9-7.0 [facility] Comment on above: Performed By: #### C BC #### [facility] [address] [place] [address] Dr. Reuben Morrison Erythrocyte distribution width (RBC) [Ratio] 14.3 % Normal 11.0-15.0 [facility] Comment on above: Performed By: #### C BC #### [facility] [address] [place] [address] Dr. Reuben Morrison Hematocrit (Bld) [Volume fraction] 48.9 % Normal 42.0-54.0 [facility] Comment on above: Performed By: #### C BC #### [facility] [address] [place] [address] Dr. Reuben Morrison Hemoglobin (Bld) [Mass/Vol] 16.6 g/dL Normal 14.0-18.0 [facility] Comment on above: Performed By: #### C BC #### [facility] [address] [place] [address] Dr. Reuben Morrison IG # 0.01 10e3/ul Normal 0.00-0.03 [facility] Comment on above: Performed By: #### C BC #### [facility] [address] [place] [address] Dr. Reuben Morrison IG % 0.2 % Normal 0.0-0.5 [facility] Comment on above: Performed By: #### C BC #### [facility] [address] [place] [address] Dr. Reuben Morrison LYMPH # 1.1 103/ul Critically low 1.2-3.8 [facility] Comment on above: Performed By: #### C BC #### [facility] [address] [place] [address] Dr. Reuben Morrison Lymphocytes/100 WBC (Bld) 24.3 % Normal 20.5-60.0 [facility] Comment on above: Performed By: #### C BC #### [facility] [address] [place] [address] Dr. Reuben Morrison MANUAL DIFF REQ NO Normal [facility] Comment on above: Performed By: #### C BC #### [facility] [address] [place] [address] Dr. Reuben Morrison MCH (RBC) [Entitic mass] 29.5 pg Normal 25.9-34.0 [facility] Comment on above: Performed By: #### C BC #### [facility] [address] [place] [address] Dr. Reuben Morrison MCHC (RBC) [Mass/Vol] 33.9 g/dL Normal 29.9-35.2 [facility] Comment on above: Performed By: #### C BC #### [facility] [address] [place] [address] Dr. Reuben Morrison MCV (RBC) [Entitic vol] 86.9 fL Normal 80.0-94.0 [facility] Comment on above: Performed By: #### C BC #### [facility] [address] [place] [address] Dr. Reuben Morrison MONO # 0.5 103/ul Normal 0.3-0.8 [facility] Comment on above: Performed By: #### C BC #### [facility] [address] [place] [address] Dr. Reuben Morrison Monocytes/100 WBC (Bld) 9.6 % Normal 1.7-12.0 [facility] Comment on above: Performed By: #### C BC #### [facility] [address] [place] [address] Dr. Reuben Morrison NEUT # 3.0 103/ul Normal 1.4-6.5 [facility] Comment on above: Performed By: #### C BC #### [facility] [address] [place] [address] Dr. Reuben Morrison Neutrophils/100 WBC (Bld) 64.2 % Normal 43.0-75.0 [facility] Comment on above: Performed By: #### C BC #### [facility] [address] [place] [address] Dr. Reuben Morrison Platelet mean volume (Bld) [Entitic vol] 9.7 fL Normal 9.5-13.5 [facility] Comment on above: Performed By: #### C BC #### [facility] [address] [address] [address] Reuben Morrison PLT 130 103/ul Critically low 150-450 [facility] Comment on above: Result Comment: plts . appear slightly decreased Performed By: #### C BC #### [facility] [address] [address] [address] Reuben Morrison RBC 5.63 106/ul Normal 4.70-6.10 [facility] Comment on above: Performed By: #### C BC #### [facility] [address] [address] [address] Reuben Morrison WBC 4.7 103/ul Normal 4.0-11.0 [facility] Comment on above: Performed By: #### C BC #### [facility] [address] [place] [address] Dr. Reuben Morrison TESTOSTERONE, TOTALon 2021 Testosterone [Mass/Vol] 404 ng/dL Normal 264-916 [facility] Comment on above: Result Comment: Adul t male reference interval is based on a population of healthy nonobese males (BMI <30) between 19 and 39 years old. Brad et.al. JCEM 2017,102;3251-1381. PMID: [id number]. Performed By: #### T ESTTOT #### [facility] [address] [place] [address] Dr. Reuben Morrison CBC AUTO DIFFon 04-27-2022 BASO # 0.0 103/ul Normal 0.0-0.1 [facility] Comment on above: Performed By: #### T ESTTOT #### [facility] [address] [place] [address] Dr. Reuben Morrison Basophils/100 WBC (Bld) 1.0 % Normal 0.2-2.0 [facility] Comment on above: Performed By: #### T ESTTOT #### [facility] [address] [place] [address] Dr. Reuben Morrison EO # 0.1 103/ul Normal 0.0-0.7 [facility] Comment on above: Performed By: #### T ESTTOT #### [facility] [address] [place] [address] Dr. Reuben Morrison Eosinophils/100 WBC (Bld) 1.8 % Normal 0.9-7.0 [facility] Comment on above: Performed By: #### T ESTTOT #### [facility] [address] [place] [address] Dr. Reuben Morrison Erythrocyte distribution width (RBC) [Ratio] 14.0 % Normal 11.0-15.0 [facility] Comment on above: Performed By: #### T ESTTOT #### [facility] [address] [place] [address] Dr. Reuben Morrison Hematocrit (Bld) [Volume fraction] 47.3 % Normal 42.0-54.0 [facility] Comment on above: Performed By: #### T ESTTOT #### [facility] [address] [place] [address] Dr. Reuben Morrison Hemoglobin (Bld) [Mass/Vol] 16.2 g/dL Normal 14.0-18.0 [facility] Comment on above: Performed By: #### T ESTTOT #### [facility] [address] [place] [address] Dr. Reuben Morrison IG # 0.01 10e3/ul Normal 0.00-0.03 [facility] Comment on above: Performed By: #### T ESTTOT #### [facility] [address] [place] [address] Dr. Reuben Morrison IG % 0.3 % Normal 0.0-0.5 [facility] Comment on above: Performed By: #### T ESTTOT #### [facility] [address] [place] [address] Dr. Reuben Morrison LYMPH # 1.1 103/ul Critically low 1.2-3.8 [facility] Comment on above: Performed By: #### T ESTTOT #### [facility] [address] [place] [address] Dr. Reuben Morrison Lymphocytes/100 WBC (Bld) 26.6 % Normal 20.5-60.0 [facility] Comment on above: Performed By: #### T ESTTOT #### [facility] [address] [place] [address] Dr. Reuben Morrison MANUAL DIFF REQ NO Normal [facility] Comment on above: Performed By: #### T ESTTOT #### [facility] [address] [place] [address] Dr. Reuben Morrison MCH (RBC) [Entitic mass] 29.5 pg Normal 25.9-34.0 [facility] Comment on above: Performed By: #### T ESTTOT #### [facility] [address] [place] [address] Dr. Reuben Morrison MCHC (RBC) [Mass/Vol] 34.2 g/dL Normal 29.9-35.2 [facility] Comment on above: Performed By: #### T ESTTOT #### [facility] [address] [place] [address] Dr. Reuben Morrison MCV (RBC) [Entitic vol] 86.2 fL Normal 80.0-94.0 [facility] Comment on above: Performed By: #### T ESTTOT #### [facility] [address] [place] [address] Dr. Reuben Morrison MONO # 0.4 103/ul Normal 0.3-0.8 [facility] Comment on above: Performed By: #### T ESTTOT #### [facility] [address] [place] [address] Dr. Reuben Morrison Monocytes/100 WBC (Bld) 9.0 % Normal 1.7-12.0 [facility] Comment on above: Performed By: #### T ESTTOT #### [facility] [address] [place] [address] Dr. Reuben Morrison NEUT # 2.5 103/ul Normal 1.4-6.5 [facility] Comment on above: Performed By: #### T ESTTOT #### [facility] [address] [place] [address] Dr. Reuben Morrison Neutrophils/100 WBC (Bld) 61.3 % Normal 43.0-75.0 [facility] Comment on above: Performed By: #### T ESTTOT #### [facility] [address] [address] [address] Reuben Morrison Platelet mean volume (Bld) [Entitic vol] 9.6 fL Normal 9.5-13.5 [facility] Comment on above: Performed By: #### T ESTTOT #### [facility] [address] [address] [address] Reuben Morrison PLT 128 103/ul Critically low 150-450 [facility] Comment on above: Performed By: #### T ESTTOT #### [facility] [address] [address] [address] Reuben Morrison RBC 5.49 106/ul Normal 4.70-6.10 [facility] Comment on above: Performed By: #### T ESTTOT #### [facility] [address] [address] [address] Reuben Morrison WBC 4.0 103/ul Normal 4.0-11.0 [facility] Comment on above: Performed By: #### T ESTTOT #### [facility] [address] [address] [address] Reuben Morrison INSULINon 03-08-2022 Insulin 4.3 uIU/mL Normal 2.6-24.9 [facility] Comment on above: Performed By: #### T ESTTOT #### [facility] [address] [address] [address] Reuben Morrison TESTOSTERONE, TOTALon 2021 Testosterone [Mass/Vol] ng/dL Critically high 264-916 [facility] Comment on above: Result Comment: Adul t male reference interval is based on a population of healthy nonobese males (BMI <30) between 19 and 39 years old. stephania Salinas.al. JCEM 2017,102;5926-9924. PMID: [id number]. Performed By: #### T ESTTOT #### [facility] [address] [place] [address] Dr. Reuben Morrison CBC AUTO DIFFon 03-07-2022 BASO # 0.1 103/ul Normal 0.0-0.1 [facility] Comment on above: Performed By: #### C BC #### [facility] [address] [place] [address] Dr. Reuben Morrison Basophils/100 WBC (Bld) 1.4 % Normal 0.2-2.0 [facility] Comment on above: Performed By: #### C BC #### [facility] [address] [place] [address] Dr. Reuben Morrison EO # 0.1 103/ul Normal 0.0-0.7 [facility] Comment on above: Performed By: #### C BC #### [facility] [address] [place] [address] Dr. Reuben Morrison Eosinophils/100 WBC (Bld) 1.4 % Normal 0.9-7.0 [facility] Comment on above: Performed By: #### C BC #### [facility] [address] [place] [address] Dr. Reuben Morrison Erythrocyte distribution width (RBC) [Ratio] 14.7 % Normal 11.0-15.0 [facility] Comment on above: Performed By: #### C BC #### [facility] [address] [place] [address] Dr. Reuben Morrison Hematocrit (Bld) [Volume fraction] 49.8 % Normal 42.0-54.0 [facility] Comment on above: Performed By: #### C BC #### [facility] [address] [place] [address] Dr. Reuben Morrison Hemoglobin (Bld) [Mass/Vol] 16.4 g/dL Normal 14.0-18.0 [facility] Comment on above: Performed By: #### C BC #### [facility] [address] [place] [address] Dr. Reuben Morrison IG # 0.01 10e3/ul Normal 0.00-0.03 [facility] Comment on above: Performed By: #### C BC #### [facility] [address] [place] [address] Dr. Reuben Morrison IG % 0.3 % Normal 0.0-0.5 [facility] Comment on above: Performed By: #### C BC #### [facility] [address] [place] [address] Dr. Reuben Morrison LYMPH # 0.9 103/ul Critically low 1.2-3.8 [facility] Comment on above: Performed By: #### C BC #### [facility] [address] [place] [address] Dr. Reuben Morrison Lymphocytes/100 WBC (Bld) 24.7 % Normal 20.5-60.0 [facility] Comment on above: Performed By: #### C BC #### [facility] [address] [place] [address] Dr. Reuben Morrison MANUAL DIFF REQ NO Normal [facility] Comment on above: Performed By: #### C BC #### [facility] [address] [place] [address] Dr. Reuben Morrison MCH (RBC) [Entitic mass] 28.9 pg Normal 25.9-34.0 [facility] Comment on above: Performed By: #### C BC #### [facility] [address] [place] [address] Dr. Reuben Morrison MCHC (RBC) [Mass/Vol] 32.9 g/dL Normal 29.9-35.2 [facility] Comment on above: Performed By: #### C BC #### [facility] [address] [place] [address] Dr. Reuben Morrison MCV (RBC) [Entitic vol] 87.7 fL Normal 80.0-94.0 [facility] Comment on above: Performed By: #### C BC #### [facility] [address] [place] [address] Dr. Reuben Morrison MONO # 0.4 103/ul Normal 0.3-0.8 [facility] Comment on above: Performed By: #### C BC #### [facility] [address] [place] [address] Dr. Reuben Morrison Monocytes/100 WBC (Bld) 9.5 % Normal 1.7-12.0 [facility] Comment on above: Performed By: #### C BC #### [facility] [address] [place] [address] Dr. Reuben Morrison NEUT # 2.3 103/ul Normal 1.4-6.5 [facility] Comment on above: Performed By: #### C BC #### [facility] [address] [place] [address] Dr. Reuben Morrison Neutrophils/100 WBC (Bld) 62.7 % Normal 43.0-75.0 [facility] Comment on above: Performed By: #### C BC #### [facility] [address] [place] [address] Dr. Reuben Morrison Platelet mean volume (Bld) [Entitic vol] 9.8 fL Normal 9.5-13.5 [facility] Comment on above: Performed By: #### C BC #### [facility] [address] [place] [address] Dr. Reuben Morrison PLT 149 103/ul Critically low 150-450 [facility] Comment on above: Performed By: #### C BC #### [facility] [address] [place] [address] Dr. Reuben Morrison RBC 5.68 106/ul Normal 4.70-6.10 [facility] Comment on above: Performed By: #### C BC #### [facility] [address] [place] [address] Dr. Reuben Morrison WBC 3.7 103/ul Critically low 4.0-11.0 [facility] Comment on above: Performed By: #### C BC #### [facility] [address] [place] [address] Dr. Reuben Morrison FREE THYROXINE INDEX T7on FTI 2.50 Normal 1.30-4.50 [facility] Comment on above: Performed By: #### C MP, T7, TSH, LIPID #### [facility] [address] [place] [address] Dr. Reuben Morrison T3U 39.0 % Normal 33.0-40.0 [facility] Comment on above: Performed By: #### C MP, T7, TSH, LIPID #### [facility] [address] [address] [address] Reuben Morrison T4 [Mass/Vol] 6.40 ug/dL Normal 4.50-12.10 [facility] Comment on above: Performed By: #### C MP, T7, TSH, LIPID #### [facility] [address] [place] [address] Dr. Reuben Morrison GLYCOHEMOGLOBIN A1Con 2021 ADA RECOMMENDATION SEE BELOW Normal [facility] Comment on above: Result Comment: ADA RECOMMENDED LIMIT 4.0 - 6.0 ADA THERAPEUTIC TARGET < 7.0 ACTION SUGGESTED > 7.0 Performed By: #### T ESTTOT #### [facility] [address] [place] [address] Dr. Reuben Morrison Glucose [Mass/Vol] 105 mg/dL Normal [facility] Comment on above: Performed By: #### T ESTTOT #### [facility] [address] [place] [address] Dr. Reuben Morrison HbA1c (Bld) [Mass fraction] 5.3 % Normal 4.5-6.2 [facility] Comment on above: Performed By: #### T ESTTOT #### [facility] [address] [place] [address] Dr. Reuben Morrison IRONon 03-07-2022 Iron [Mass/Vol] 100.0 ug/dL Normal 65.0-175.0 [facility] Comment on above: Performed By: #### I BLAIR, PSASC, VITB12, VITAD #### [facility] [address] [place] [address] Dr. Reuben Morrison LIPID PROFILEon 03-07-2022 CHOL-HDL RATIO NORM SEE BELOW Normal [facility] Comment on above: Result Comment: 3.3 - 4.4 LOW RISK 4.4 - 7.1 AVERAGE RISK 7.1 - 11.0 MODERATE RISK >11.0 HIGH RISK Performed By: #### C MP, T7, TSH, LIPID #### [facility] [address] [address] [address] Reuben Morrison Cholesterol [Mass/Vol] 157 mg/dL Normal <=200 [facility] Comment on above: Performed By: #### C MP, T7, TSH, LIPID #### [facility] [address] [address] [address] Reuben Morrison Cholesterol in HDL [Mass/Vol] 48 mg/dL Normal 40-60 [facility] Comment on above: Performed By: #### C MP, T7, TSH, LIPID #### [facility] [address] [address] [address] Reuben Morrison Cholesterol in LDL [Mass/Vol] 96.0 mg/dL Normal [facility] Comment on above: Performed By: #### C MP, T7, TSH, LIPID #### [facility] [address] [address] [address] Reuben Morrison Cholesterol.total/Chol esterol in HDL [Mass ratio] 3.3 {ratio} Normal [facility] Comment on above: Performed By: #### C MP, T7, TSH, LIPID #### [facility] [address] [address] [address] Reuben Morrison HDL NORMAL > or = 60 mg/dl - LO W CARDIOVASCULAR RISK <40 mg/dl - HIGH CARDIOVASCULAR RISK Normal [facility] Comment on above: Performed By: #### C MP, T7, TSH, LIPID #### [facility] [address] [address] [address] Reuben Morrison LDL CALC NORMAL SEE BELOW Normal [facility] Comment on above: Result Comment: <100 mg/dl OPTIMAL 100 - 129 mg/dl NEAR OR ABOVE OPTIMAL 130 - 159 mg/dl BORDERLINE HIGH 160 - 189 mg/dl HIGH >190 mg/dl VERY HIGH Performed By: #### C MP, T7, TSH, LIPID #### [facility] [address] [address] [address] Reuben Morrison Triglyceride [Mass/Vol] 65 mg/dL Normal <=150 [facility] Comment on above: Performed By: #### C MP, T7, TSH, LIPID #### [facility] [address] [place] [address] Dr. Reuben Morrison VLDL CALC 13.0 mg/dL Normal [facility] Comment on above: Performed By: #### C MP, T7, TSH, LIPID #### [facility] [address] [place] [address] Dr. Reuben Morrison PROF 14(COMP METB)on 022 Albumin [Mass/Vol] 3.7 g/dL Normal 3.4-5.0 [facility] Comment on above: Performed By: #### C MP, T7, TSH, LIPID #### [facility] [address] [place] [address] Dr. Reuben Morrison Albumin/Globulin [Mass ratio] 1.3 {ratio} Normal [facility] Comment on above: Performed By: #### C MP, T7, TSH, LIPID #### [facility] [address] [place] [address] Dr. Reuben Morrison ALP [Catalytic activity/Vol] 53 U/L Normal 46-116 [facility] Comment on above: Performed By: #### C MP, T7, TSH, LIPID #### [facility] [address] [place] [address] Dr. Reuben Morrison ALT [Catalytic activity/Vol] 37 U/L Normal 16-63 [facility] Comment on above: Performed By: #### C MP, T7, TSH, LIPID #### [facility] [address] [place] [address] Dr. Reuben Morrison Anion gap [Moles/Vol] 11.0 mmol/L Normal [facility] Comment on above: Performed By: #### C MP, T7, TSH, LIPID #### [facility] [address] [place] [address] Dr. Reuben Morrison AST [Catalytic activity/Vol] 28 U/L Normal 15-37 [facility] Comment on above: Performed By: #### C MP, T7, TSH, LIPID #### [facility] [address] [place] [address] Dr. Reuben Morrison Bilirubin [Mass/Vol] 0.9 mg/dL Normal 0.2-1.0 [facility] Comment on above: Performed By: #### C MP, T7, TSH, LIPID #### [facility] [address] [address] [address] Reuben Morrison Calcium [Mass/Vol] 8.9 mg/dL Normal 8.5-10.1 [facility] Comment on above: Performed By: #### C MP, T7, TSH, LIPID #### [facility] [address] [address] [address] Reuben Morrison Chloride [Moles/Vol] 106 mmol/L Normal 98-107 [facility] Comment on above: Performed By: #### C MP, T7, TSH, LIPID #### [facility] [address] [place] [address] Dr. Reuben Morrison CO2 [Moles/Vol] 28.2 mmol/L Normal 21.0-32.0 [facility] Comment on above: Performed By: #### C MP, T7, TSH, LIPID #### [facility] [address] [place] [address] Dr. Reuben Morrison Creatinine [Mass/Vol] 1.55 mg/dL Critically high 0.70-1.30 [facility] Comment on above: Performed By: #### C MP, T7, TSH, LIPID #### [facility] [address] [place] [address] Dr. Reuben Morrison EGFR-AF SAO TOMEAN 55 mL/min/1.73m2 Critically low >=60 [facility] Comment on above: Performed By: #### C MP, T7, TSH, LIPID #### [facility] [address] [place] [address] Dr. Reuben Morrison EGFR-NON AF SAO TOMEAN 46 mL/min/1.73m2 Critically low >=60 [facility] Comment on above: Performed By: #### C MP, T7, TSH, LIPID #### [facility] [address] [address] [address] Reuben Morrison Globulin (S) [Mass/Vol] 2.9 g/dL Normal [facility] Comment on above: Performed By: #### C MP, T7, TSH, LIPID #### [facility] [address] [place] [address] Dr. Reuben Morrison Glucose [Mass/Vol] 88 mg/dL Normal 74-106 [facility] Comment on above: Performed By: #### C MP, T7, TSH, LIPID #### [facility] [address] [place] [address] Dr. Reuben Morrison Potassium [Moles/Vol] 4.2 mmol/L Normal 3.5-5.1 [facility] Comment on above: Performed By: #### C MP, T7, TSH, LIPID #### [facility] [address] [place] [address] Dr. Reuben Morrison Protein [Mass/Vol] 6.6 g/dL Normal 6.4-8.2 [facility] Comment on above: Performed By: #### C MP, T7, TSH, LIPID #### [facility] [address] [place] [address] Dr. Reuben Morrison Sodium [Moles/Vol] 141 mmol/L Normal 136-145 [facility] Comment on above: Performed By: #### C MP, T7, TSH, LIPID #### [facility] [address] [place] [address] Dr. Reuben Morrison Urea nitrogen [Mass/Vol] 13.0 mg/dL Normal 7.0-18.0 [facility] Comment on above: Performed By: #### C MP, T7, TSH, LIPID #### [facility] [address] [place] [address] Dr. Reuben Morrison Urea nitrogen/Creatinine [Mass ratio] 8.4 mg/mg Normal [facility] Comment on above: Performed By: #### C MP, T7, TSH, LIPID #### [facility] [address] [place] [address] Dr. Reuben Morrison TSHon 03-07-2022 TSH 0.091 uIU/mL Critically low 0.358-3.740 [facility] Comment on above: Performed By: #### C MP, T7, TSH, LIPID #### [facility] [address] [address] [address] Reuben Morrison TSH RANGE SEE BELOW Normal [facility] Comment on above: Result Comment: <0.3 4 UIU/ml HYPERTHYROID 0.34-5.60 UIU/ml EUTHYROID >5.60 UIU/ml HYPOTHYROID Performed By: #### C MP, T7, TSH, LIPID #### [facility] [address] [address] [address] Reuben Morrison VITAMIN B12on 03-07-2022 Cobalamin (Vitamin B12) [Mass/Vol] 3126.0 pg/mL Critically high 193.0-986.0 [facility] Comment on above: Performed By: #### T ESTTOT #### [facility] [address] [place] [address] Dr. Reuben Morrison VITAMIN D 25 OHon 03-07-2022 VIT D 25-OH 90.4 ng/mL Normal [facility] Comment on above: Performed By: #### T ESTTOT #### [facility] [address] [address] [address] Reuben Morrison VIT D RANGES SEE BELOW Normal [facility] Comment on above: Result Comment: <20 ng/mL Vit D deficient 20 - <30 ng/mL Vit D insufficient 30 - 100 ng/mL Vit D sufficient >100 ng/mL Potential Toxicity Performed By: #### T ESTTOT #### [facility] [address] [place] [address] Dr. Reuben Morrison XR SHOULDER RICHARD 2V [...] ERIN HANSEN Date: 2022-03-07 16:26 Normal [facility] Vital Signs Date Time Vital Sign Value Performing Clinician Facility 05-13-2025 11:21-0400 Body height 168.91 cm Ilda Hendrickson MD Work Phone: [facility] 05-13-2025 11:21-0400 Body mass index (BMI) [Ratio] 29 kg/m2 Ilda Hendrickson MD Work Phone: [facility] 05-13-2025 11:21-0400 Body weight 83 kg Ilda Hendrickson MD Work Phone: [facility] 05-13-2025 11:21-0400 Diastolic blood pressure 80 mm[Hg] Ilda Hendrickson MD Work Phone: [facility] 05-13-2025 11:21-0400 Systolic blood pressure 122 mm[Hg] Ilda eHndrickson MD Work Phone: [facility] 02-18-2025 10:20-0400 Body height 170.2 cm Osmin Anthony MD Work Phone: [facility] 02-18-2025 10:20-0400 Body mass index (BMI) [Ratio] 29.19 kg/m2 Osmin Anthony MD Work Phone: [facility] 02-18-2025 10:20-0400 Body weight 84.54 kg Osmin Anthony MD Work Phone: [facility] 10-21-2024 10:46-0500 Body temperature 97.52 [degF] Vianey MENDOZA [facility] 10-21-2024 10:46-0500 Diastolic blood pressure 84 mm[Hg] Vianey MENDOZA [facility] 10-21-2024 10:46-0500 Systolic blood pressure 128 mm[Hg] Vianey MENDOZA [facility] 10-08-2024 14:40-0500 Body height 170.2 cm Osmin Anthony MD Work Phone: [facility] 10-08-2024 14:40-0500 Body mass index (BMI) [Ratio] 29.13 kg/m2 Osmin Anthony MD Work Phone: [facility] 10-08-2024 14:40-0500 Body weight 84.37 kg Osmin Anthony MD Work Phone: [facility] 08-13-2024 13:46-0500 Blood Pressure Location Shawanda LUZL [facility] 08-13-2024 13:46-0500 Diastolic blood pressure 82 mm[Hg] Shawanda NILL [facility] 08-13-2024 13:46-0500 Heart rate 72 /min Shawanda NILL [facility] 08-13-2024 13:46-0500 Respiratory rate 16 /min Shawanda NILL [facility] 08-13-2024 13:46-0500 Systolic blood pressure 122 mm[Hg] Shawanda NILL [facility] 07-17-2024 14:59-0400 Body height 168.9 cm Sage Russel DO Work Phone: [facility] 07-17-2024 14:59-0400 Body mass index (BMI) [Ratio] 30.02 kg/m2 Sage Russel DO Work Phone: [facility] 07-17-2024 14:59-0400 Body weight 85.64 kg Sage Russel DO Work Phone: [facility] 07-17-2024 14:59-0400 Diastolic blood pressure 90 mm[Hg] Sage Russel DO Work Phone: [facility] 07-17-2024 14:59-0400 Heart rate 68 /min Sage Russel DO Work Phone: [facility] 07-17-2024 14:59-0400 SaO2% (BldA) [Mass fraction] 98 % Sage Russel DO Work Phone: [facility] 07-17-2024 14:59-0400 Systolic blood pressure 134 mm[Hg] Sage Russel DO Work Phone: [facility] 06-12-2024 11:04-0400 Body height 168.9 cm Román Hoang MD Work Phone: [facility] 06-12-2024 11:04-0400 Body mass index (BMI) [Ratio] 29.89 kg/m2 Román Hoang MD Work Phone: [facility] 06-12-2024 11:04-0400 Body weight 85.28 kg Román Hoang MD Work Phone: [facility] 06-12-2024 11:04-0400 Diastolic blood pressure 78 mm[Hg] Román Hoang MD Work Phone: [facility] 06-12-2024 11:04-0400 Heart rate 68 /min Román Hoang MD Work Phone: [facility] 06-12-2024 11:04-0400 Respiratory rate 16 /min Román Hoang MD Work Phone: [facility] 06-12-2024 11:04-0400 Systolic blood pressure 130 mm[Hg] Román Hoang MD Work Phone: [facility] 06-11-2024 11:20-0400 Body height 170.2 cm Osmin Anthony MD Work Phone: [facility] 06-11-2024 11:20-0400 Body mass index (BMI) [Ratio] 28.7 kg/m2 Osmin Anthony MD Work Phone: [facility] 06-11-2024 11:20-0400 Body weight 83.12 kg Osmin Anthony MD Work Phone: [facility] 06-06-2024 13:55-0400 Body height 168.91 cm MD Ilda Hendrickson Work Phone: [facility] 06-06-2024 13:55-0400 Body mass index (BMI) [Ratio] 29.4 kg/m2 MD Ilda Hendrickson Work Phone: [facility] 06-06-2024 13:55-0400 Body temperature 98.8 [degF] MD Ilda Hendrickson Work Phone: [facility] 06-06-2024 13:55-0400 Body weight 83.97 kg MD Ilda Hendrickson Work Phone: [facility] 06-06-2024 13:55-0400 Diastolic blood pressure 88 mm[Hg] MD Ilda Hendrickson Work Phone: [facility] 06-06-2024 13:55-0400 Heart rate 61 /min MD Ilda Hendrickson Work Phone: [facility] 06-06-2024 13:55-0400 Respiratory rate 16 /min MD Ilda Hendrickson Work Phone: [facility] 06-06-2024 13:55-0400 SaO2% (BldA) [Mass fraction] 98 % MD Ilda Hendrickson Work Phone: [facility] 06-06-2024 13:55-0400 Systolic blood pressure 139 mm[Hg] MD Ilda Hendrickson Work Phone: [facility] 05-07-2024 15:01-0400 Blood Pressure Location Shawanda MEJIA [facility] 05-07-2024 15:01-0400 Diastolic blood pressure 84 mm[Hg] Shawanda MEJIA [facility] 05-07-2024 15:01-0400 Heart rate 68 /min Shawanda LUZSeyda [facility] 05-07-2024 15:01-0400 Respiratory rate 16 /min Shawanda NILL [facility] 05-07-2024 15:01-0400 Systolic blood pressure 118 mm[Hg] Shawanda NILL [facility] 11-02-2023 10:48-0500 Body height 170.2 cm Osmin Anthony MD Work Phone: [facility] 11-02-2023 10:48-0500 Body mass index (BMI) [Ratio] 29.29 kg/m2 Osmin Anthony MD Work Phone: [facility] 11-02-2023 10:48-0500 Body weight 84.82 kg Osmin Anthony MD Work Phone: [facility] 10-16-2023 13:03-0500 Blood Pressure Location Vianey MENDOZA [facility] 10-16-2023 13:03-0500 Diastolic blood pressure 82 mm[Hg] Vianey MENDOZA [facility] 10-16-2023 13:03-0500 Heart rate 75 /min Vianey MENDOZA [facility] 10-16-2023 13:03-0500 Respiratory rate 16 /min Vianey MENDOZA [facility] 10-16-2023 13:03-0500 Systolic blood pressure 131 mm[Hg] Vianey MENDOZA [facility] 07-27-2023 10:00-0400 Body height 168.91 cm Sandoval Antonia Other [facility] Other 07-27-2023 10:00-0400 Body mass index (BMI) [Ratio] 28.55 kg/m2 Sandoval Antonia Other [facility] Other 07-27-2023 10:00-0400 Body temperature 96.2 [degF] Sandoval Antonia Other [facility] Other 07-27-2023 10:00-0400 Body weight 81.47 kg Sandoval Antonia Other [facility] Other 07-27-2023 10:00-0400 Diastolic blood pressure 87 mm[Hg] Sandoval Antonia Other [facility] Other 07-27-2023 10:00-0400 Respiratory rate 16 /min Sandoval Antonia Other [facility] Other 07-27-2023 10:00-0400 SaO2% (BldA) [Mass fraction] 94 % Sandoval Antonia Other [facility] Other 07-27-2023 10:00-0400 Systolic blood pressure 130 mm[Hg] Sandoval Antonia Other [facility] Other 06-12-2023 12:25-0400 Blood Pressure Location Vianey MENDOZA [facility] 06-12-2023 12:25-0400 Diastolic blood pressure 74 mm[Hg] Vianey MENDOZA [facility] 06-12-2023 12:25-0400 Heart rate 68 /min Vianey MENDOZA [facility] 06-12-2023 12:25-0400 Respiratory rate 16 /min Vianey MENDOZA [facility] 06-12-2023 12:25-0400 Systolic blood pressure 128 mm[Hg] Vianey MENDOZA [facility] 04-26-2023 11:15-0400 Body height 168.4 cm Shawanda Hernandez PA-C Work Phone: [facility] 04-26-2023 11:15-0400 Body temperature 98.01 [degF] Shawanda Hernandez PA-C Work Phone: [facility] 04-26-2023 11:15-0400 Body weight 86.95 kg Shawanda Hernandez PA-C Work Phone: [facility] 04-26-2023 11:15-0400 Diastolic blood pressure 94 mm[Hg] Shawanda Hernandez PA-C Work Phone: [facility] 04-26-2023 11:15-0400 Heart rate 74 /min Shawanda Hernandez PA-C Work Phone: [facility] 04-26-2023 11:15-0400 SaO2% (BldA) [Mass fraction] 97 % Shawanda Hernandez PA-C Work Phone: [facility] 04-26-2023 11:15-0400 Systolic blood pressure 147 mm[Hg] Shawanda Hernandez PA-C Work Phone: [facility] 12-02-2022 08:12-0500 Blood Pressure Location Vianey MENDOZA [facility] 12-02-2022 08:12-0500 Diastolic blood pressure 84 mm[Hg] Vianey MENDOZA [facility] 12-02-2022 08:12-0500 Heart rate 70 /min Vianeyzayra MENDOZA [facility] 12-02-2022 08:12-0500 Respiratory rate 16 /min Vianey MENDOZA [facility] 12-02-2022 08:12-0500 Systolic blood pressure 137 mm[Hg] Vianey MENDOZA [facility] 07-20-2022 14:11-0400 Body mass index (BMI) [Ratio] 28.98 kg/m2 Jovita Virk MD Work Phone: [email or web address] 07-20-2022 14:11-0400 Body temperature 98.01 [degF] Jovita Virk MD Work Phone: [email or web address] 07-20-2022 14:11-0400 Body weight 83.92 kg Jovita Virk MD Work Phone: [email or web address] 07-20-2022 14:11-0400 Diastolic blood pressure 86 mm[Hg] Jovita Virk MD Work Phone: [email or web address] 07-20-2022 14:11-0400 Heart rate 98 /min Jovita Virk MD Work Phone: [email or web address] 07-20-2022 14:11-0400 Respiratory rate 14 /min Jovita Virk MD Work Phone: [email or web address] 07-20-2022 14:11-0400 SaO2% (BldA) [Mass fraction] 100 % Jovita Virk MD Work Phone: [email or web address] 07-20-2022 14:11-0400 Systolic blood pressure 138 mm[Hg] Jovita Virk MD Work Phone: [email or web address] Encounters Encounter Date Encounter Type Care Provider Facility Start: 10-27-2025 ambulatory Vianey Velazquez ty:[facility] Start: 05-24-2025 End: 05-24-2025 Letter encounter Jovita Virk MD Work Phone: [facility] Start: 05-13-2025 End: 05-13-2025 Patient encounter procedure Scot Pompa MD -[facility] Work Phone: Start: 05-13-2025 End: 05-13-2025 ambulatory Ilda Hendrickson MD Work Phone: [facility] Work Phone: Start: 02-18-2025 End: 02-18-2025 ambulatory [facility] Start: 02-18-2025 End: 02-18-2025 Office outpatient visit 25 minutes Osmin Anthony MD Work Phone: [facility] Comment on above: Primary osteoarthrit is of right knee (Primary Dx) Start: 01-21-2025 End: 01-21-2025 ambulatory [facility] Start: 10-21-2024 End: 10-21-2024 ambulatory Vianey MENDOZA Facility:[facility] Start: 10-21-2024 End: 10-21-2024 Patient encounter procedure Vianey MENDOZA [facility] Start: 10-08-2024 End: 10-08-2024 ambulatory [facility] Start: 10-08-2024 End: 10-08-2024 Patient encounter procedure Osmin Anthony MD Work Phone: [facility] Comment on above: Primary osteoarthrit is of right knee (Primary Dx) Start: 08-13-2024 End: 08-13-2024 ambulatory hSawanda MEJIA Facility:[facility] Start: 08-13-2024 End: 08-13-2024 Patient encounter procedure Shawanda MEJIA [facility] Start: 07-17-2024 End: 07-17-2024 ambulatory SAGE CAM Not Available Start: 07-17-2024 End: 07-17-2024 Office outpatient visit 25 minutes Sage Cam DO Work Phone: [facility] [employer] [address] Comment on above: NANCY (obstructive sle ep apnea) (Primary Dx); Hypersomnia; Snoring; Atrial fibrillation, unspecified type (CMS/HCC); Sleep deprivation Start: 07-17-2024 End: 07-17-2024 [employer]amboo flowsheet Sage Cam DO Work Phone: [facility] [employer] [facility] [address] Start: 07-17-2024 End: 07-17-2024 Bamboo flowsheet Sage Cam DO Work Phone: [facility] [employer] [facility] [address] Start: 07-16-2024 End: 07-16-2024 ambulatory [facility] Start: 06-12-2024 End: 06-12-2024 Bamboo flowsheet Román Hoang MD Work Phone: [facility] Start: 06-12-2024 End: 06-12-2024 Bamboo flowsheet Román Hoang MD Work Phone: [facility] Start: 06-12-2024 End: 06-12-2024 ambulatory ROMÁN HOANG Not Available Start: 06-12-2024 End: 06-12-2024 Office outpatient visit 25 minutes Román Hoang MD Work Phone: [facility] Comment on above: Sarah's disease (CMS/HCC) (Primary Dx) Start: 06-11-2024 End: 06-11-2024 ambulatory OSMIN ANTHONY [facility] Start: 06-11-2024 End: 06-11-2024 Patient encounter procedure Osmin Anthony MD Work Phone: [facility] Comment on above: Primary osteoarthrit is of right knee (Primary Dx) Start: 06-06-2024 End: 06-06-2024 ambulatory MD Ilda Hendrickson Work Phone: [facility] Work Phone: Start: 06-06-2024 End: 06-06-2024 Patient encounter procedure MD Ilda Hendrickson Work Phone: [facility] Ne[facility] Work Phone: Start: 06-03-2024 Non-patient / Non-visit MD Ravi Hendrickson Work Phone: [facility] Work Phone: Start: 05-29-2024 End: 05-29-2024 ambulatory Shawanda R NILL Facility:[id number] Start: 05-07-2024 End: 05-07-2024 ambulatory Shawanda R NILL Facility:[facility] Start: 05-07-2024 End: 05-07-2024 Patient encounter procedure Shawanda R NILL [facility] Start: 05-06-2024 ambulatory Shawanda NILL Facility:[facility] Start: 04-05-2024 End: 04-05-2024 ambulatory MD Ilda Hendrickson Work Phone: [facility] Work Phone: Start: 04-05-2024 End: 04-05-2024 Departed Referred MD Ilda Hendrickson Work Phone: [facility] Start: 12-03-2023 Letter encounter [facility] Work Phone: Start: 11-27-2023 ambulatory Vianey MENDOZA Facili ty:[facility] Start: 11-02-2023 End: 11-02-2023 Patient encounter procedure Osmin Anthony MD Work Phone: [facility] Comment on above: Primary osteoarthrit is of right knee (Primary Dx) Start: 10-16-2023 End: 10-16-2023 Patient encounter procedure [facility] Start: 07-27-2023 End: 07-27-2023 ambulatory Sandoval Antonia Other [facility] [employer] Other Start: 07-27-2023 Office outpatient ne w 45 minutes Sandoval Antonia [facility] Start: 06-12-2023 End: 06-12-2023 Patient encounter procedure Vianey MENDOZA [facility] Start: 05-03-2023 End: 05-03-2023 Patient encounter procedure Taylor Joshua [facility] [employer] Start: 04-26-2023 End: 04-26-2023 ambulatory ILDA HENDRICKSON Facility:[facility] Start: 04-26-2023 End: 04-26-2023 Patient encounter procedure Shawanda Hernandez PA-C Work Phone: [facility] Comment on above: Height loss (Primary Dx) Start: 03-08-2023 End: 03-08-2023 Patient encounter procedure KYLE RODRIGUEZ [facility] Start: 01-20-2023 End: 01-21-[address] ILDA HENDRICKSON . Facility:[facility] Start: 12-02-2022 End: 12-02-2022 Patient encounter procedure Vianey MENDOZA [facility] Start: 11-18-2022 End: 11-19-[address] ILDA HENDRICKSON . Facility:[facility] Start: 11-08-2022 End: 11-09-2022 ambulatory TAYLOR JOSHUA . Facility:[facility] Start: 11-01-2022 End: 11-01-2022 Patient encounter procedure KYLE RODRIGUEZ [facility] Start: 10-05-2022 End: 10-05-2022 Patient encounter procedure KYLE RODRIGUEZ [facility] Start: 09-07-2022 End: 09-07-2022 Patient encounter procedure Taylor Joshua [facility] Start: 08-28-2022 Letter encounter [facility] Start: 08-17-2022 End: 08-17-2022 Patient encounter procedure Taylor Joshua [facility] Start: 08-12-2022 Telephone encounter Aarti vences MA, [facility], PHARMACEUTICAL OPERATOR Work Phone: [facility] Start: 07-21-2022 End: 07-22-[address] ILDA HENDRICKSON . 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 Facili ty:[facility] Start: 03-17-[address] ILDA HENDRICKSON . Facili ty:[facility] Start: 03-09-2022 Encounter for genera l adult medical examination without abnormal findings DR ILDA HENDRICKSON . [facility] Start: 03-07-2022 End: 03-08-2022 Encounter for general adult medical examination without abnormal findings DR ILDA HENDRICKSON . Facility:[facility] Start: 03-07-2022 End: 03-08-[address] ILDA HENDRICKSON . Facility:[facility] Start: 03-01-2022 End: 03-01-2022 Patient encounter procedure Saeed Cantu Jr. [facility] Start: 02-01-2022 End: 02-01-2022 Patient encounter procedure Saeed Cantu Jr. [facility] Start: 01-04-2022 End: 01-04-2022 Patient encounter procedure Saeed Cantu Jr. [facility] Procedures Date Procedure Procedure Detail Performing Clinician Start: 02-18-2025 Arthrocentesis aspir &/inj major jt/bursa w/o us Osmin Anthony MD Work Phone: Start: 10-08-2024 Arthrocentesis aspir &/inj major jt/bursa w/o us Osmin Anthony MD Work Phone: Start: 06-11-2024 Arthrocentesis aspir &/inj major jt/bursa w/o Osmin Anthony MD Work Phone: Start: 06-11-2024 Follow-up visit Follow-up UNIQUE ANTHONY Start: 05-29-2024 Colonoscopy Shawanda ECHEVARRIA LL Start: 11-02-2023 Arthrocentesis aspir &/inj major jt/bursa w/o us Osmin Anthony MD Work Phone: Start: 06-15-[address] FABIÁN HENDRICKSON . Comment on above: Performed By: #### T ESTTOT #### [facility] [address] [place] [address] Dr. Reuben Morrison Start: 03-07-[address] FABIÁN HENDRICKSON . Comment on above: Performed By: #### I BLAIR, PSASC, VITB12, VITAD #### [facility] [address] [place] [address] Dr. Reuben Morrison Start: 12-21-2016 Cystourethroscopy wi dilation of urethral stricture Saeed Cantu Jr. Start: 08-25-2009 Colonoscopy Shawanda WALE GREER Arthroplasty of knee Saeed Cantu Jr. [...] vaccine (adult) (1 - 1-dose 75+ series) [facility] Start: 09-04-2031 DTaP,Tdap and Td Vaccines (2 - Tdap) DTaP,Tdap and Td Vaccines (2 - Tdap) [facility] Start: 09-04-2031 Urine microalbumin profile DTAP,TDAP,TD (2 - Tdap) [facility] Start: 06-15-2027 PROSTATE CANCER SCREENING DISCUSSION PROSTATE CANCER SCREENING DISCUSSION [facility] Start: 02-18-2026 Adult BMI Screening Adult BMI Screening [facility] Start: 02-18-2026 Tobacco Screening Tobacco Screening [facility] Start: 11-30-2025 Lipid panel Cholesterol [facility] Start: 07-15-2025 End: 07-15-2025 Patient encounter procedure 07/15/2025 3:00 PM EDT Office Visit [facility] [address] [place] [phone] Sage Cam [address] [place] [address] [facility] [place] [address] Start: 06-25-2025 Influenza vaccination Influenza Vaccine (#1) [facility] Start: 06-11-2025 Adult BMI Screening Adult BMI Screening [facility] Start: 06-11-2025 Tobacco Screening Tobacco Screening [facility] Start: 06-11-2025 End: 06-11-2025 Patient encounter procedure 06/11/2025 10:30 AM EDT Office Visit [facility] [address] [address] [place] [id number] Román Hoang MD [address] [place] [address] [facility] Start: 05-26-2025 Influenza vaccination Influenza Vaccine [facility] Start: 02-18-2025 End: 02-18-2026 XR Knee - right [address] 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 [address] [place] [address] [facility] [address] Start: 06-12-2024 End: 06-12-2025 Thyrotropin [Units/volume] in Serum or Plasma TSH Lab Routine Sarah's disease (CMS/HCC) Expected: 06/12/2024 (Approximate), Expires: 06/12/2025 [facility] Comment on above: Expected: 06/12/2024 (Approximate), Expi res: 06/12/2025 Start: 06-12-2024 End: 06-12-2025 Thyroxine (T4) free [Mass/volume] in Serum or Plasma T4, free Lab Routine Sarah's disease (CMS/HCC) Expected: 06/12/2024 (Approximate), Expires: 06/12/2025 [facility] Comment on above: Expected: 06/12/2024 (Approximate), Expi res: 06/12/2025 Start: 06-12-2024 End: 06-12-2025 Triiodothyronine (T3) Free [Mass/volume] in Serum or Plasma T3, free Lab Routine Sarah's disease (CMS/HCC) Expected: 06/12/2024 (Approximate), Expires: 06/12/2025 [facility] Work Phone: Comment on above: Expected: 06/12/2024 (Approximate), Expi res: 06/12/2025 Start: 05-26-2024 COVID-19 Vaccine () COVID-19 Vaccine () [facility] Start: 05-26-2024 COVID-19 Vaccine ( season) COVID-19 Vaccine ( season) [facility] Start: 05-26-2024 Influenza vaccination [facility] Start: 02-22-2024 Fall Risk Screening Fall Risk Screening [facility] Start: 02-22-2024 Pneumococcal Vaccine: 65+ Years (1 of 1 - PCV) Pneumococcal Vaccine: 65+ Years (1 of 1 - PCV) [facility] Start: 05-26-2023 COVID-19 Vaccine ( season) COVID-19 Vaccine ( season) [facility] Start: 05-26-2023 Influenza vaccination INFLUENZA (#1) [facility] Start: 09-25-2022 DEPRESSION ASSESSMENT DEPRESSION ASSESSMENT [facility] Start: 09-20-2022 COVID-19 Vaccine (5 - Booster for Pfizer series) COVID-19 Vaccine (5 - Booster for Pfizer series) [facility] Start: 09-20-2022 COVID-19 VACCINE (5 - Pfizer series) COVID-19 VACCINE (5 - Pfizer series) [facility] Start: 07-19-2022 End: 07-19-2022 Patient encounter procedure 07/19/2022 Office Visit Physical Medicine & Rehab/PM&R Jovita Virk MD [address] [place] [phone] [facility] [place] [facility] Start: 06-25-2022 Influenza vaccination Influenza Vaccine (#1) [facility] Start: 05-31-2022 Shingles (RZV) Vaccine (2 of 2) Shingles (RZV) Vaccine (2 of 2) [facility] Start: 01-19-2022 COVID-19 Vaccine (4 - Booster for Pfizer series) COVID-19 Vaccine (4 - Booster for Pfizer series) [facility] Start: 11-15-2021 COVID-19 Vaccine (4 - Booster for Pfizer series) COVID-19 Vaccine (4 - Booster for Pfizer series) [facility] Start: 09-05-2021 Lipid panel Cholesterol [facility] Start: 12-04-2020 DIABETES SCREEN DIABETES SCREEN [facility] Start: 2019 Hepatitis B (HBV) Vaccine (optional start 60+ years) Hepatitis B (HBV) Vaccine (optional start 60+ years) [facility] Start: 2019 RSV vaccine (optional 60+ years) RSV vaccine (optional 60+ years) [facility] Start: 11-23-2014 Annual wellness visit Annual Wellness Visit ([id number]) [facility] Start: 06-10-2012 Thyroid stimulating hormone measurement TSH [facility] Start: 2009 Measurement of occult blood in single stool specimen FIT [facility] Start: 2009 Pneumococcal vaccination Pneumococcal Vaccine(s) (50+ yrs) (1 of 1 - PCV) [facility] Start: 2009 Screening for malignant neoplasm of colon CRC Screening [facility] Start: 2009 Shingles (RZV) Vaccine (1 of 2) Shingles (RZV) Vaccine (1 of 2) [facility] Start: 02-22-2004 COLOGUARD (FIT-DNA) COLOGUARD (FIT-DNA) [facility] Start: 02-22-2004 Colonoscopy COLONOSCOPY [facility] Start: 02-22-2004 COLORECTAL CANCER SCREENING COLORECTAL CANCER SCREENING [facility] Start: 02-22-[address] COLONOGRAPHY [facility] Start: 02-22-2004 FECAL OCCULT BLOOD FECAL OCCULT BLOOD [facility] Start: 02-22-2004 Screening for malignant neoplasm of colon [facility] Start: 02-22-2004 SIGMOIDOSCOPY SIGMOIDOSCOPY [facility] Start: 1994 LIPID SCREEN LIPID SCREEN [facility] Start: 1978 Hepatitis A (HAV) Vaccine (optional start 19+ years) Hepatitis A (HAV) Vaccine (optional start 19+ years) [facility] Start: 1977 Adult BMI Follow Up Plan Adult BMI Follow Up Plan [facility] Start: 1977 ANNUAL PCP TEAM CHRONIC DISEASE VISIT ANNUAL PCP TEAM CHRONIC DISEASE VISIT [facility] Start: 1977 Hepatitis C screening Hepatitis C Antibody [facility] Start: 1977 HEPATITIS C SCREENING HEPATITIS C SCREENING [facility] Start: 1977 HIV SCREENING HIV SCREENING [facility] Start: 1977 SPIROMETRY SPIROMETRY [facility] Start: 1977 Tetanus + diphtheria + acellular pertussis vaccine (product) Tdap Booster [facility] Start: 1974 HIV screening HIV Test [facility] Start: 1971 Depression Screening Depression Screening [facility] Start: 1965 PNEUMOCOCCAL (1 - PCV) PNEUMOCOCCAL (1 - PCV) [facility] Start: 1959 Medicare Annual Wellness Visit Medicare Annual Wellness Visit [facility] Start: 1959 Screening for malignant neoplasm of colon [facility] Arthrp kne condyle&p latu medial&lat compartments ROBOTIC REPLACEMENT TOTAL JOINT KNEE Primary osteoarthritis of right knee FLOWER SURGERY Hemoglobin [Mass/vol ume] in Blood [facility] Immunizations Immunization Date Immunization Notes Care Provider [facility] 07-30-2024 influenza virus vaccine, unspecified formulation Osmin Anthony MD Work Phone: [facility] 08-10-2023 influenza virus vaccine, unspecified formulation Shawanda MEJIA [facility] [place] 08-10-2023 Influenza, injectable, Madin Ramah Canine Kidney, preservative free, quadrivalent [facility] Work Phone: 08-29-2022 zoster vaccine recombinant Shawanda Hernandez PA-C Work Phone: [facility] 07-26-2022 Moderna Monovalent (12+ yrs) COVID-19 vaccine, mRNA, spike protein, LNP, PF, 100 mcg/0.5 mL (YUY=937) [facility] 07-25-2022 Influenza, injectable, Madin Hanna Canine Kidney, preservative free, quadrivalent Jovita Virk MD Work Phone: [facility] 04-05-2022 zoster vaccine recombinant Jovita Virk MD Work Phone: [facility] 09-20-2021 SARS-CoV-2 (COVID-19 ) mRNA BNT-162b2 vax Shawanda MEJIA [facility] 09-04-2021 diphtheria, tetanus toxoids and pertussis vaccine Jovita Virk MD Work Phone: [facility] 08-25-2021 SARS-CoV-2 (COVID-19 ) Ad26 vaccine, recombinant Saeed Cantu Jr. [facility] 08-10-2021 influenza, injectable, quadrivalent, preservative free Jovita Virk MD Work Phone: [facility] 08-10-2021 influenza virus vaccine, unspecified formulation Jovita Virk MD Work Phone: [facility] 06-25-2021 influenza virus vaccine, unspecified formulation Saeed Cantu Jr. [facility] 12-22-2020 Pfizer (12+ yrs) SARS-COV-2 (COVID-19) vaccine, mRNA, spike protein, LNP, pres. free, 30 mcg/0.3mL dose (CXT=958) Jovita Virk MD Work Phone: [facility] 11-30-2020 Pfizer (12+ yrs) SARS-COV-2 (COVID-19) vaccine, mRNA, spike protein, LNP, pres. free, 30 mcg/0.3mL dose (MMR=748) Jovita Virk MD Work Phone: [facility] 08-25-2020 influenza virus vaccine, unspecified formulation Saeed Cantu Jr. [facility] 06-30-2020 influenza, injectable, quadrivalent, preservative free Jovita Virk MD Work Phone: [facility] 12-25-2019 SARS-CoV-2 (COVID-19 ) mRNA BNT-162b2 vax Saeed Cantu Jr. [facility] 11-24-2019 SARS-CoV-2 (COVID-19 ) mRNA BNT-162b2 vax Saeed Cantu [facility] Payers Date Payer Category Payer Self-pay 2023 Unknown [id number] 2022 Blue Cross Blue Shield BCBS [id number] 2022 Blue Cross [facility] O [id number] 2022 Unknown [id number] 2021 Commercial Indemnity MEDICAL MUT UAL - TRADITIONAL [id number]. [id number] 2017 Unknown [id number] 1.13.56.2. [id number] 2017 Unknown [id number] 2013 Medicare [id number] 1.13.56.2. [id number] 2013 Medicare FFS MEDICARE [id number]. [id number] 1959 Medicare [id number] 1959 Self-pay [id number] 1959 Unknown [id number] 2.16.840.1.286145.3.579.2 .593 1959 Unknown [id number] 2.16.840.1.093684.3.579.2 .59 1959 Unknown [id number] 2.16.840.1.959850.3.579.2 .593 1959 Unknown [id number] 2.16.840.1.550049.3.579.2 .593 1959 Unknown [id number] 2.16.840.1.593166.3.579.2 .593 1959 Unknown [id number] 2.16.840.1.011695.3.579.2 .59 1959 Unknown [id number] 2.16.840.1.955297.3.579.2 .593 1959 Unknown [id number] 2.16.840.1.114929.3.579.2 .59 1959 Unknown [id number] 2.16.840.1.489711.3.579.2 .593 1959 Unknown [id number] 2.16.840.1.152519.3.579.2 .593 1959 Unknown [id number] 2.16.840.1.497009.3.579.2 .593 1959 Unknown [id number] 2.16.840.1.176505.3.579.2 .1259 1959 Unknown [id number] 2.16.840.1.672036.3.579.2 .1259 1959 Unknown [id number] 2.16.840.1.853992.3.579.2 .727 1959 Unknown [id number] 2.16.840.1.520805.3.579.2 .727 1959 Unknown [id number] 2.16.840.1.929144.3.579.2 .727 1959 Unknown [id number] 2.16.840.1.042254.3.579.2 .727 1959 Unknown [id number] 2.16.840.1.856587.3.579.2 .727 1959 Unknown [id number] 2.16.840.1.557028.3.579.2 .727 1959 Unknown [id number] 2.16.840.1.736244.3.579.2 .1286 1959 Unknown [id number] 2.16.840.1.074823.3.579.2 .128 1959 Unknown [id number] 2.16.840.1.651779.3.579.2 .1286 1959 Unknown [id number] 2.16.840.1.854345.3.579.2 .1286 Private Health Insurance [facility] [id number] Unknown [id number] 2.16.840.1.114454.3.579.2 .593 Unknown [facility] [id number] Unknown [id number] 2.16.840.1.211311.3.579.2 .531 Social History Date Type Detail Facility Start: 08-24-2011 End: 10-05-2021 Tobacco smoking status Never smoked tobacco (finding) [facility] Tobacco smoking status Never [facility] Start: 08-12-2022 End: 04-26-2023 Sex Assigned At Male [facility] Start: 08-24-2011 End: 07-17-2024 Tobacco use and exposure Smokeless tobacco non-user [facility] Start: 12-07-2017 End: 08-12-2022 Alcohol intake Not Asked [facility] Start: 1960 Sex Assigned At Not on file [facility] Start: 08-12-2022 History SDOH Social Connections Phone 1 [facility] Start: 08-12-2022 History SDOH Social Connections Get Together 2 [facility] Start: 08-12-2022 History SDOH Social Connections [facility] Start: 08-12-2022 Education [facility] Start: 04-26-2023 End: 02-18-2025 Alcohol intake Current drinker of alcohol (finding) [facility] Start: 08-12-2022 End: 04-26-2023 History of Social function [facility] Start: 12-04-2017 Alcohol Comment social [facility] Start: 1960 Sex Assigned At Male F [facility] How often to you hav e a drink containing alcohol? Monthly or less [facility] How many standard drinks containing alcohol do you have on a typical day? 1 or 2 [facility] How often do you hav e 6 or more drinks on 1 occasion? Weekly [facility] Start: 07-29-2012 End: 04-30-2015 Sex Male (finding) [facility] Start: 08-23-2021 Gender identity Identifies as male gender (finding) [facility] Within the last year , have [...] al Text Equipment Identifier Dates Brng Tib [id number] mm 0d Kn Ant - [id number] Start: 09-05-2016 Cement Bn Palaco s Radpq 40g Rpl [id number] - [id number] Start: 09-05-2016 Ty Tib 79mm Cocr Kn I Beam - [id number] Start: 09-05-2016 Cmpt Fem Kn Lt 7 0mm Cr Cmnt - [id number] Start: 09-05-2016 Cmpt Ptlr Thn 34 mm 3 Pg Kn Ser - [id number] Start: 09-05-2016 Goals Date Patient Goal Desired Activity /State Personal health goal Comment on above: Formatting of this n ote might be different from the original. Evaluation of progress towards goal: Maximize work with PT at discharge to strengthen L knee Functional Status Date Assessment Result Facility 10-21-2024 Functional Status N/A [facility] 08-13-2024 Functional Status N/A [facility] 05-07-2024 Functional Status N/A [facility] 10-16-2023 Functional Status N/A [facility] 06-12-2023 Functional Status N/A [facility] 12-02-2022 Functional Status N/A [facility] 07-20-2022 Are you deaf, or do you have serious difficulty hearing No 07/20/2022 2:51 PM EDT Jovita Virk MD No [facility] 07-20-2022 Are you blind, or do you have serious difficulty seeing, even when wearing glasses No 07/20/2022 2:51 PM EDT Jovita Virk MD No [facility] 07-20-2022 Do you have serious difficulty walking or climbing stairs Yes 07/20/2022 2:51 PM EDT Jovita Virk MD Yes [facility] 07-20-2022 Do you have difficul ty dressing or bathing No 07/20/2022 2:51 PM EDT Jovita Virk MD No [facility] 07-20-2022 Because of a physica l, mental, or emotional condition, do you have difficulty doing errands alone such as visiting a physician's office or shopping Yes 07/20/2022 2:51 PM EDT Jovita Virk MD Yes [facility] Mental Status Date Assessment Result Facility 07-20-2022 Because of a physica l, mental, or emotional condition, do you have serious difficulty concentrating, remembering, or making decisions Yes 07/20/2022 2:51 PM EDT Jovita Virk MD Yes [facility] Clinical Notes 04-07-2022 to 05-13-2025 Note Date & Type Note Facility 05-13-2025 Evaluation note Diagnosis Onset Date Resolution Primary osteoarthritis of right knee acute May 13 10:39am [facility] Work Phone: 1(830) 746-605805-27-2025 History of Present illness Narrative* Osmin Anthony [...] replacement. 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 He elected to proceed with starting the scheduling process for robotic right total knee replacement. The proposed pr ocedure was discussed in detail. Risks, benefits, and alternatives to surgery were reviewed. Pat understands that this is an elective procedure. The anticipated recovery period was also discussed. Antonioll meet with the surgical aide to schedule the procedure. Informed consent obtained. His knee was re-injected today. Informed consent obtained. Return in about 3 months (around 05/21/2025) for X-Ray-Right Knee, Post Op. Pat was advised to contact the office if there are any problems, questions, or concerns. *I have seen and evaluated the patient today with my physician assistant department manager and agree with all aspectsof the above [...] via MyChart?: Immediate [1] documented in this encounterTri[facility] Note Chief Complaint: Patient here [...] days., Disp: , Rfl: vitamin B complex 765-8-439-2-2 mg/mL injection, Inject into the shoulder, thigh, [...] c 3 Exam Location (more content not included)...[facility] 10-21-2024 Hospital Discharge instructions Patient Education 10/21/2024 [...] urethra. Follow these instructions at home: Take thgs-cmh-xuavhxu and prescription medicines only as told by [...] provider. Document Revised: 03/30/2022 Document Reviewed: 03/30/2022 Nexi Patient Education 2023 Proxino. Follow Up Care 10/16/2023 14:07:51 With:HERRERA PRIETO, Vianey Crawford, URL Address: [facility] [address] , [place] [address]- [phone] When: Unknown Comments:1 yr w/ PSA and T level [facility] 01-27-2025 NotePatient Education Urology Benign Prostatic Hyperplasia [...] Follow these instructions at home: ??? Take muem-csi-ohnfdyw and prescription medicines only as told by [...] symptoms do not get (more content not included)...[facility]01-14-2025 History of Present illness Narrative* Osmin [...] the patient today with my physician assistant department manager and agree with all aspectsof the above [...] created via procedure documentation documented in this encounterTriHealth [facility]11-19-2024 NoteGeneral Surgery Office/Clinic Note Chief Complaint consultation [...] Recorded SARS-CoV-2 (COVID-19) mRNA BNT-162b2 vax 11/2019 RecordedPromedica Defiance Regional HospitalComment on above:Result Comment: Electronically Signed By: ROBERTO PIRETO, Shawanda Young\Date and Time Signed: 08/13/24 21:11 [id number] History of Present illness Narrative* Sage Cam, - 07/17/2024 2:30 PM EDT Images from [...] was counseled on the risks of stroke, SD, and sudden with NANCY, along with the [...] to clinic: 2 months documented in this encounterResearch Psychiatric [id number] NoteUT Electrophysiology Consult Note Reason for visit: [...] Box isolaton+ 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 2. Atrial flutter s/p [...] function. He is also recently seen a upsetter setter up. They are weaning of amantadine which was [...] Year: No Utilities: Not At Risk (11/16/2023) [facility] Utilities Threatened with loss of utilities: [...] route for 90 days. vitamin B complex 751-1-305-2-2 mg/mL injection Inject into the shoulder, thigh, [...] daily as directed. (Pa (more content not included)...[facility] 06-12-2024 History of Present illness Narrative* Román [...] 1 year (around 06/12/2025). documented in this encounterResearch Psychiatric [id number] History of Present illness Narrative* Osmin Anthony [...] the patient today with my physician assistant department manager and agree with all aspectsof the above [...] created via procedure documentation documented in this encounterTriHealth [facility]08-[facility]-2024 NoteGeneral Surgery Office/Clinic Note Chief Complaint consultation [...] prior to procedure. 2. Chronic anticoagulation (Z79.01: skilled nursing (current) use of 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s) see # 1 [...] Abuse - Denies Substa (more content not included)...[facility] HospitalComment on above:Result Comment: Electronically Signed By: ROBERTO PRIETO, Shawanda Young\Date and Time Signed: 05/07/24 15:50 History of Present illness Narrative* Osmin Anthony [...] the patient today with my physician assistant department manager and agree with all aspectsof the above [...] created via procedure documentation documented in this encounterTriHealth [facility]01-[facility]-2024 Hospital Discharge instructions Patient Education 10/16/2023 13:58:13 [...] provider. Document Revised: 01/20/2022 Document Reviewed: 01/20/2022 Nexi Patient Education 2022 Proxino. Follow Up Care 07/31/2023 10:30:59 With:HERRERA PRIETO, Vianey Crawford, URL Address: [facility] [address], [place] [address]- When:Within 1 Year(s) Comments:w/PSA [facility] 11-02-2023 Evaluation note* Encounter Date Diagnosis Assessment [...] advised him to avoid NSAIDs or any xvln-ned-gfbrvva supplements. This deanna with the importance of [...] - G47.33) Continue follow-up with the specialist. [facility] Other 10-17-2023 History general Narrative - Reported* Type Description Date Medical History FATIGUE Medical History EDEMA Surgical History CARDIO VERSION 07/11/2023 Surgical History LEFT KNEE REPLACEMENT Surgical History C5-C6 PLATE AND SCREWS Surgical History DOUBLE HERNIA REPAIR Surgical History RIGHT SHOULDER SCOPE Surgical History COLONOSCOPY Surgical History CYSTO SCOPE Hospitalization History SEE ABOVE [facility] Other 09-18-2023 Hospital Discharge instructions Patient Education [...] therapy. Follow these instructions at home: Take ycrs-nic-vtnobpj and prescription medicines only as told by [...] provider. Document Revised: 05/13/2021 Document Reviewed: 05/13/2021 Nexi Patient Education 2022 Proxino. Follow Up Care 05/04/2023 10:34:04 With:HERRERA PRIETO, Vianey Crawford, URL Address: [facility] [address] [place] [address]- [phone] When:Within 6 Month(s) Comments:w/Testosterone Level, PSA and CBC [facility] NoteHNO ID: [id number] Author: Shawanda Hernandez PA-C Service: ? Author Type: Physician Carroter Type: Progress Notes Filed: 04/26/2023 11:40 AM [...] Full Oblique Extension With (more content not included)...[facility] 04-26-2023 History of Present illness Narrative* [...] disc disease CVA (cerebral vascular accident) ([facility]) due to head trauma Dysarthria Eczema Hypothyroidism [...] TIME: 11:15 AM documented in this encounterOhio[facility] Hospital Discharge instructions Patient Education 12/02/2022 [...] urethra. Follow these instructions at home: Take awxl-zvm-ysefkrb and prescription medicines only as told by [...] 09/11/2006 Document Revised: 08/06/2019 Document Reviewed: 10/16/2017 Nexi Patient Education 2020 Proxino. Follow Up Care 11/01/2022 10:29:54 With:HERRERA PRIETO, Vianey Crawford, URL Address: [address] [place], [place] [id number]- When: Unknown [facility] 11-18-2022 History of Present illness Narrative* Aarti Kelsey MA, [facility], PHARMACEUTICAL OPERATOR - 08/12/2022 12:27 PM EST SPEECH [...] stated should already be in the system. PHARMACEUTICAL OPERATOR was speaking with patient's spouse via phone conversation attempting to troubleshoot and bypass the preliminary questionnaires. However, it was unsuccessful. PHARMACEUTICAL OPERATOR sent patient's spouse a direct link to her cell phone to connect to video visit and the same issues arose. Patient was connected to Wifi and using an iPad in home setting. The iPad did not successfully pass the hardware test and patient/patient's spouse were never able to successfully log on. PHARMACEUTICAL OPERATOR provided patient/patient's spouse the [facility] Support Team's contact information to reach out for further assistance with log on issues. PHARMACEUTICAL OPERATOR will e-mail patient's spouse/patient information regarding memory strategies, etc to help in the home setting (patient's spouse reported patient tends to misplace belongings, such as keys, etc and could use a refresher on the strategies. Patient's spouse stated she will take a look at the strategies and go from there with scheduling anything further. PHARMACEUTICAL OPERATOR provided patient/spouse with our direct line to SR Therapy dept if she has any further questions/concerns or needs to schedule. Patient left without being seen this date. Electronically signed by Aarti Kelsey MA, [facility], PHARMACEUTICAL OPERATOR at 08/12/2022 12:28 PM EST documented in this [id number] Instructions* Patient Instructions* Jovita Virk MD - 07/20/2022 2:49 PM EDT -Get the sleep apnea addressed -Hold amantadine -Add memantine 5mg daily. -External referral for brain MRI. -Speech therapy for cognitive strategies. -R knee surgery. -F/up 1 year, sooner if needed. documented in this [id number] History of Present illness Narrative* Jovita Virk [...] 200 mg into the muscle once amonth. 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 Last available brain imaging [id number] showed ventriculomegaly that was deemed not hydrocephalus [...] Risk protocol implemented: No documented in this [id number] Telephone encounter Note* Telephone Encounter - Renetta [...] PCP on file No PCP on file [id number] Miscellaneous Notes* Telephone Encounter - Renetta Boyer [...] Appointments Appointment Date:02/01/2022 10:00:00 AM Scheduled Provider: Location:[facility] Appointment Type:URO Nurse Visit Appointment Date:03/01/2022 09:00:00 AM Scheduled Provider:Saeed Cantu Jr., MD Location:[facility] Appointment Type:URO Office Visit Appointment Date:04/05/2022 11:15:00 AM Scheduled Provider:Saeed Cantu Jr., MD Location:[facility] Appointment Type:URO Office Visit [facility] evaluation + Plan note Future Appointments Appointment Date:03/01/2022 09:00:00 AM Scheduled Provider:Saeed Cantu Jr., MD Location:[facility] Appointment Type:URO Office Visit Appointment Date:04/05/2022 11:15:00 AM Scheduled Provider:Saeed Cantu Jr., MD Location:[facility] Appointment Type:URO Office Visit [facility] evaluation + Plan note Future Appointments Appointment Date:04/05/2022 11:15:00 AM Scheduled Provider:Saeed Cantu Jr., MD Location:[facility] Appointment Type:URO Office Visit Diagnostic Tests Pending * Testosterone Level Total 03/01/22 [facility] evaluation + Plan note Future Appointments Appointment Date:07/11/2022 10:15:00 AM Scheduled Provider: Location:[facility] Appointment Type:URO Nurse Visit [facility] evaluation + Plan note Future Appointments Appointment Date:09/07/2022 10:00:00 AM Scheduled Provider: Location:[facility] Appointment Type:URO Nurse Visit [facility] evaluation + Plan note Future Appointments Appointment Date:10/05/2022 10:00:00 AM Scheduled Provider: Location:[facility] Appointment Type:URO Nurse Visit [facility] evaluation + Plan note Future Appointments Appointment Date:11/01/2022 10:00:00 AM Scheduled Provider: Location:[facility] Appointment Type:URO Nurse Visit [facility] evaluation + Plan note Future Appointments Appointment Date:11/30/2022 10:00:00 AM Scheduled Provider:Taylor Joshua MD Location:[facility] Appointment Type:URO Office Visit Diagnostic Tests Pending * CBC w/ Auto Diff 11/01/22 * Testosterone Level Total 11/01/22 [facility] evaluation + Plan note Diagnostic Tests Pending * Testosterone Level Total 12/17/22 * Testosterone Level Total 04/25/23 [facility] evaluation + Plan note Future Appointments Appointment Date:04/05/2023 10:00:00 AM Scheduled Provider: Location:[facility] Appointment Type:URO Nurse Visit [facility] evaluation + Plan note Future Appointments Appointment Date:05/30/2023 10:00:00 AM Scheduled Provider: Location:[facility] Appointment Type:URO Nurse Visit [facility] evaluation + Plan note Future Appointments Appointment Date:07/10/2023 09:30:00 AM Scheduled Provider: Location:[facility] Appointment Type:URO Nurse Visit Appointment Date:11/27/2023 09:45:00 AM Scheduled Provider:Vianey MENDOZA MD Location:[facility] Appointment Type:URO Office Visit Diagnostic Tests Pending * Testosterone Level Total 06/12/23 * PSA Total 06/12/23 * CBC w/ Auto Diff 06/12/23 [facility] evaluation + Plan note Future Appointments Appointment Date:10/21/2024 10:15:00 AM Scheduled Provider:Vianey MENDOZA MD Location:[facility] Appointment Type:URO Office Visit Diagnostic Tests Pending * PSA Total 10/16/23 [facility] evaluation + Plan note Future Appointments Appointment Date:10/21/2024 10:15:00 AM Scheduled Provider:Vianey MENDOZA MD Location:[facility] Appointment Type:URO Office Visit [facility] Evaluation + Plan note Future Appointments Appointment Date:10/27/2025 10:30:00 AM Scheduled Provider:Vianey MENDOZA MD Location:[facility] Appointment Type:URO Office Visit Diagnostic Tests Pending * PSA Total 10/21/24 * Testosterone Level Total 10/21/24 [facility] evaluation note* 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 Body mass index (BMI) 28.0-28.9, adult [facility] Height loss- Primary Loss of height [facility] noteNo assessment information availableUniversity [facility] Work Phone: evaluigtlx note* Diagnosis Onset Date Resolution Status BPH (benign prostatic hyperplasia) acute CKD (chronic kidney disease) stage 2, GFR 60-89 ml/min acute [id number] acute NANCY (obstructive sleep apnea) acute Renal cyst acute [facility] Work Phone: evaluation note* Diagnosis NANCY (obstructive sleep apnea)- Primary Obstructive sleep apnea (adult) (pediatric) Hypersomnia Hypersomnia, unspecified Snoring Other dyspnea and respiratory abnormality Atrial fibrillation, unspecified type (CMS/HCC) Sleep deprivation Problems related to lack of adequate sleep documented in this encounter [facility]* 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 documented in this encounter [facility] HealthcareEvaluation note* Diagnosis Primary osteoarthritis of right knee- Primary [facility]* Diagnosis Primary osteoarthritis of right knee- Primary [facility]* Diagnosis Primary osteoarthritis of right knee- Primary [facility]* Diagnosis Primary osteoarthritis of right knee- Primary documented in [facility]* Diagnosis Onset Date Resolution Status Admit Date Primary osteoarthritis of ri ght knee acute May 13 10:39am [facility] Work Phone: Hospital course Narrative No data available for this section [facility] Hospital Discharge instructions No data available for this section [facility] InstructionsNot on filedocumented in this encounter [facility] SystemInstructionsNot on filedocumented in this encounter [facility] SystemInstructions* Attachments The following attachments cannot be sent through Care Everywhere. * Steroid injection (Palauan) * Knee replacement (Palauan) [facility] note No data available for this section [facility] reason for referral (narrative)No reason for referral information availableChildren[facility] Work Phone: Advance Directives No Advanced Directives Records FoundLatest [...] of brain injury (HCC) Jovita Virk MD [address] [place] [phone] Referral ID Status Reason Start Date Expiration Date Visits Requested Visits Authorized [id number] Authorized Patient Preference 2 07/20/2023 3 3 Comments Brain MRI without contrast. H/o TBI 2010. Continues to struggle with cognitive deficits, fatigue, impaired balance, unimproved. Please evaluate for other structural causes of these issues. Fax report to me at [phone]. Specialty Diagnoses / Procedures Referred By Stephany flower Referred To Contact Speech Pathology Diagnoses Cognitive changes Late effect of brain injury (HCC) Jovita Virk MD [address] [place] [phone] [place] [address] Referral ID Status Reason Start Date Expiration Date Visits Requested Visits Authorized [id number] Pending Review [facility] 2 07/20/2023 10 10 Question [...] kidney disease) stage 2, GFR 60-89 ml/min [id number] NANCY (obstructive sleep apnea) Renal cyst Additional [...] Attending Provider Active Start: May 13, 2025 Urgent Care Physician Assistant Relationship Specialty Start Date End Date Jovita Virk MD [address] [place], [place] Physician Physical Medicine & Rehab/PM&R 06/30/20 Urgent Care Physician Assistant Relationship Specialty Start Date End Date Jovita Virk MD [address] [place], [place] Physician Physical Medicine & Rehab/PM&R 06/30/20 Urgent Care Physician Assistant Relationship Specialty Start Date End Date Jovita Virk MD [address] [place], [place] Physician Physical Medicine & Rehab/PM&R 06/30/20 Urgent Care Physician Assistant Relationship Specialty Start Date End Date [...] June 06, 2024 End: June 06, 2024 Urgent Care Physician Assistant Relationship Specialty Start Date End Date Ilda Hendrickson MD [address] [place] [phone] PCP - General Family Medicine 05/13/24 Urgent Care Physician Assistant Relationship Specialty Start Date End Date Ilda Hendrickson MD [address] [place] [address] PCP - General Family Medicine 05/13/24 Urgent Care Physician Assistant Relationship Specialty Start Date End Date Ilda Hendrickson MD [address] [place] [address] PCP - General Family Medicine 05/13/24 Urgent Care Physician Assistant Relationship Specialty Start Date End Date Ilda Hendrickson MD [address] [place] [address] PCP - General Family Medicine 05/13/24 Urgent Care Physician Assistant Relationship Specialty Start Date End Date Ilda Hendrickson MD PCP - General 07/05/16 Urgent Care Physician Assistant Relationship Specialty Start Date End Date Ilda Hendrickson MD [address] [phone] PCP - General 07/05/16 Urgent Care Physician Assistant Relationship Specialty Start Date End Date Ilda Hendrickson MD PCP - General 07/05/16 Urgent Care Physician Assistant Relationship Specialty Start Date End Date Ilda Hendrickson MD PCP - General 07/05/16 Urgent Care Physician Assistant Relationship Specialty Start Date End Date Jovita Virk MD [address] [place] [phone] Physician Physical Medicine & Rehab/PM&R 06/30/20 (unrecognized sect ion and content) No Status Records FoundNo Status Records FoundNo Status Records FoundNo Status Records FoundNo Status Records FoundNo Status Records FoundNo Status Records FoundNo Status Records Found INFORMATION SOURCE (unrecogn ized section and content) DATE CREATED AUTHOR 01/27/2023 [facility] DATE CREATED AUTHOR AUTHOR'S ORGANIZ ATION 04/27/2023 [facility] DATE CREATED AUTHOR AUTHOR'S ORGANIZ ATION 09/23/2023 [facility] DATE CREATED AUTHOR AUTHOR'S ORGANIZ ATION 07/19/2024 [facility] DATE CREATED AUTHOR AUTHOR'S ORGANIZ ATION 10/23/2024 Rousseau Coffey [facility] DATE CREATED AUTHOR AUTHOR'S ORGANIZ ATION 2025 [facility] DATE CREATED AUTHOR AUTHOR'S ORGANIZ ATION 05/18/2025 [facility] DATE CREATED AUTHOR AUTHOR'S ORGANIZ ATION 06/07/2025 [facility] Source Comments (unrecognize d section and content) In the event this informatio n is protected by the Federal Confidentiality of Alcohol and Drug Abuse Patient Records regulations: The Federal rules restrict any use of the information to criminally investigate or prosecute any alcohol or drug abuse patient.[facility] Goals (unrecognized section and content) Goals [...] BE BASED ON THE PRIMARY CLINICAL RECORDS. [facility] [employer] [facility]. provides no warranty or guarantee of the accuracy or completeness of information in this document.
[2025-06-11 09:05] LABS: Free T3 1.86 pg/mL (2.18-3.98); Thyroid Stimulating Hormone 1.000 uIU/mL (0.358-3.740)
== END 2025-06-11 08:12 | disposition home or self-care (01) ==
LOC: LAB 08:12
PROVIDERS: PCP Family Medicine; Visit Provider Internal Medicine
DX: E06.3 Autoimmune thyroiditis (principal)
CPT/HCPCS: 36415; 84439; 84443; 84481

== ENCOUNTER 2025-07-22 16:35 | Outpatient (OUT) | payer BC, MEDICARE, SELFPAY ==
--- OUTSIDE RECORDS SUMMARY | 2025-07-22 16:39 | XMS_ITS | Clinical Summary ---
Author Organization [facility] tem Address [id number] [address] [place] [address] Care Team Providers Care Inclusion Teacher Name Role Phone Ryan Hendrickson MD Primary Care Provider [phone] Allergies No known active allergies Medications MedicationSigDispense QuantityRefillsLast FilledStart DateEnd DateStatus liothyronine (CYTOMEL) 25 MCG tablet Take 1 tablet (25 mcg total) by mouth daily with breakfast.Active levothyroxine (SYNTHROID, LEVOTHROID) 175 MCG tablet Take 150 mcg by mouth once daily.Active tamsulosin (FLOMAX) 0.4 mg capsule,extended release 24hr Take 1 capsule (0.4 mg total) by mouth in the morning.Active ELIQUIS 5 mg tablet Take 1 tablet (5 mg total) by mouth in the morning and 1 tablet (5 mg total) before bedtime.06/27/2023ctive hydrALAZINE (APRESOLINE) 25 mg tablet Take 1 tablet (25 mg total) by mouth 3 (three) times a day.Active Active Problems ProblemNoted DateDiagnosed DateStatus post total left knee replacement /A-fib09/05/2016Primary osteoarthritis of right knee 09/02/2016 Encounters DateTypeDepartmentCare DuslXzqcozmsctn87/17/2025Telephone [facility] [address] [facility] [address] [place] [phone] Alf Anthony MD from Last 3 Months Family History Medical HistoryRelationNameCommentsAlcohol abuseBrotherTim O???LynnDrug abuse BrotherTim O???LynnEarly deathBrotherTim O???LynnCOPDFatherBernard O???Charito CancerFatherBernard O???LynnHeart diseaseFatherBernard O???LynnStrokeFather Bear O???LynnBreast cancerMotherPatricia O???LynnCOPDMotherPatricia O???Charito CancerMotherPatricia O???LynnDepressionMotherPatricia O???LynnHeart disease MotherPatricia O???LynnLung cancerMotherPatricia O???LynnAnesthesia problemsNeg HxRelationNameStatusCommentsBrotherTim O???LynnFatherBernard O???LynnDeceased MotherPatricia O???LynnDeceased Social History Tobacco UseTypesPacks/DayYears UsedDateSmoking Tobacco: NeverSmokeless Tobacco: Never Tobacco Cessation:Counseling Given: Not Answered Alcohol UseStandard Drinks/WeekCommentsYes4 (1 standard drink = 0.6 oz pure alcohol)ChildcareAnswerDate QttakcolWiskqvcdxGsinhqh11/12/2019EmploymentAnswer Date TfuoanzjXfhzmukvlmDqirwky26/12/2019Purpose - LifeAnswerDate RecordedPurpose and direction in jatfZaqnyhl18/11/2021ex and Gender InformationValueDate RecordedSex Assigned at XdpjtNvkz47/29/2021 10:23 PM ESTLegal RbeHpzz3404/30/2015 11:39 AM EDTGender FnychnkfBqwm80/29/2021 10:23 PM ESTSexual OrientationNot on file Last Filed Vital Signs Vital SignReadingTime TakenCommentsBlood Fndoyyxg851/7603 11:05 AM EDT Woblv048212/21/2017 11:05 AM VRSDsuiiiahjew91.2 ??C (97.2 ??F)09/08/2016 12:34 PM ESTRespiratory Lzkj185611/09/2015 8:15 AM ESTOxygen Zxbfcjkwwi67%09/08/2016 8:15 AM ESTInhaled Oxygen Concentration--Zuonfb59.5 kg (186 lb 6 oz)02/18/2025 10:20 AM VTHOhdayu563.2 cm (5' 7 )02/18/2025 10:20 AM EDTBody Mass Index29.19 02/18/2025 10:20 AM EDT Plan of Treatment Health MaintenanceDue DateLast DoneCommentsDiabetic Ophthalmology Exam1959 Statin Use: Gzvjqtts1959Depression Kleqonoem13/30/1971Adult BMI Follow Up Plan1977Diabetic Foot Exam1977Fall Risk Gmxibbxia70/30/2024OVID-19 Vaccine ( season)/09/2021, 09/20/2021, 12/22/2020, Additional history existsInfluenza Gqppacv86/01/2024, 08/10/2023, 07/25/2022, Additional history existsAdult BMI Aanzofcrc29/ Tobacco Sdipfofrw71DTaP,Tdap and Td Vaccines (2 - Tdap) /07/2021Zoster (Shingles) JgviuitXymlijpbc69/05/2022, 04/05/2022 Goals GoalPatient Goal TypeAssociated ProblemsRecent ProgressPatient-Stated?Author Improve mobility Tiffanie Lam, RN Note: Evaluation of progress towards goal: Maximize work with PT at discharge to strengthen L knee Medical Devices ImplantedTypeAreaManufacturerDevice IdentifierShelf Expiration DateModel / Serial / LotBrng Tib [id number] 0d Kn Ant - [id number] Implanted:Qty: 1 on 09/05/2016 [facility] Knee [id number] / / [id number] Bn Palacos Radpq 40g Rpl [id number] - [id number] Implanted:Qty: 2 on 09/05/2016 by [facility]ementLeft: Knee Walter Fhvwos99/31/[id number] / / [id number] Tib 79mm Cocr Kn I Beam - [id number] Implanted:Qty: 1 on 09/05/2016 [facility] Left: IfvjMfykgv65/12/[id number] / / [id number] Fem Kn Lt 70mm Cr Cmnt - [id number] Implanted:Qty: 1 on 09/05/2016 by [facility] Left: BwnpRxuaxd70/02/[id number] / / [id number] Ptlr Thn 34mm 3 Pg Kn Ser - [id number] Implanted:Qty: 1 on 09/05/2016 by Alf [facility] Left: VqpxHdimnu95/01/[id number] / / [id number] Insurance Advance Directives * Full Code (Latest Code Status on File) Date ActivatedDate RbgxzqxsygcLmwjvkcn17/12/2016 8:43 PM09/08/2016 4:31 PM Care Teams Team MemberRelationshipSpecialtyStart DateEnd Date Ryan Hendrickson MD PCP - Zqcectj73/11/16
--- OUTSIDE RECORDS SUMMARY | 2025-07-22 16:39 | XMS_ITS | Clinical Summary ---
Author Organization [facility] Address [address] [place] [address] Care Team Providers Care Wild Life Photographer Name Role Phone Ryan Hendrickson MD Primary Care Provider [phone] Allergies No known active allergies Medications MedicationSigDispense QuantityRefillsLast FilledStart DateEnd DateStatus liothyronine (Cytomel) 25 mcg tablet Take 0.5 tablets by mouth in the morning.02/08/2017Active tamsulosin (Flomax) 0.4 mg 24 hr capsule Take 1 capsule every day by oral route for 90 days.02/08/2017Active amantadine (Symmetrel) 100 mg capsule Take 1 capsule every day by oral route for 30 days.12/25/2017Active vitamin B complex 353-3-367-2-2 mg/mL injection Inject into the shoulder, thigh, or buttocks every 30 (thirty) days. Last dose 10/27/2407Active famotidine (Pepcid) 20 mg tablet Indications:Status post ablation of atrial fibrillationTake 1 tablet (20 mg) by mouth in the morning and at bedtime for 58 doses. 58 tablet /ctive Additional Information Patient not taking.Reported on 07/16/2024 pantoprazole (ProtoNix) 40 mg EC tablet Indications:Status post ablation of atrial fibrillationTake 1 tablet (40 mg) by mouth before breakfast and before evening meal for 59 doses. Do not crush,chew, or split. 59 tablet /ctive levothyroxine (Synthroid, Levoxyl) 150 mcg tablet Indications:Orthostatic hypotensionTake 1 tablet (150 mcg) by mouth before breakfast. 30 tablet /ctive amiodarone (Pacerone) 200 mg tablet Indications:Paroxysmal atrial fibrillation (CMS/HCC)Take 2 tablets (400 mg) by mouth in the morning and at bedtime for 14 days, THEN 1 tablet (200 mg) once daily as directed. 146 tablet 11/27/2023ctive Additional Information Patient not taking.Reported on 02/07/2024 lisinopril 5 mg tablet Indications:Benign hypertensive heart disease with heart failure (CMS/HCC)Take 1 tablet (5 mg) by mouth once daily as directed. 90 tablet ctive cholecalciferol (D3-5) 5,000 Units tablet Take 5,000 Units by mouth in the morning.Active lisinopril 10 mg tablet Indications:Benign hypertensive heart disease without congestive heart failure Take 1 tablet (10 mg) by mouth once daily as directed. 90 tablet 4/ctive Eliquis 5 mg tablet Indications:Paroxysmal atrial fibrillation (CMS/HCC)TAKE 1 TABLET BY MOUTH TWO TIMES DAILY. 180 tablet 5Active Active Problems ProblemNoted DateDiagnosed DatePuncture wound of left thumb with foreign body 5Acute combined systolic (congestive) and diastolic (congestive) heart cgmjnez4707/16/2024DD (attention deficit disorder)07/16/2024MI 28.0-28.9,adult 07/16/2024hronic otqalodensywhaf56/22/9206Rvjbovhnep08/22/2024enal cyst 07/16/20242085Jagxhpzklvb72/14/2024LMD (periodic limb movement disorder)07/08/2024 Autoimmune ojzpdftjbjz20/04/2024Vision jdoreej0611/17/2023Stage 2 chronic kidney dznrqzl4311/17/2023 Assessment & Plan (11/17/2023 4:09 PM EST): Renal condition is stable Mild mitral jxtxgwthonvyb26/22/2024Nonrheumatic tricuspid valve regurgitation 11/16/2023Status post ablation of atrial zenzfgtzwmdt24/22/2024ain in limb /01/2024Urge gqhzfuanwssb19/05/202402/7841Yqbtqqn50/04/2023 06/28/2023PH with urinary zfxnmvwovkh43Transient ischemic attack (TIA)egeneration of intervertebral disc06/28/2023 06/28/20233473Ickotmyvxh64ED (erectile dysfunction)06/28/2023 06/28/2023H/O head llukqi05Hypogonadism male06/28/2023 06/28/20239810Wwcjtvijxo30Lower back pain Lumbar adcpgixktfimh16NeutropeniaOther specified behavioral and emotional disorders with onset usually occurring in childhood and kphvmjtwuge71Orthostatic djoxsixname32/04/2023 06/28/20231570Zvngsahv71rotein in urine Ghqbidz26Weak urine eaokga82hest pain 06/28/2023rthritis of both kneesEczema Sleep apneaSpinal kruploga0912 deficiency bsolute tncyvy38Thrombocytopenia trial xnvsigihnklq90/08/2017Status post total left knee xfmujymxtyc22Osteoarthritis of knee Traumatic brain fovulo02ognitive kfsokdjf76 Encounter for vocational ghyhhun04Specific academic or work inhibition as adjustment ytglahdm29Muscle /12/2010 10/04/2023Attention or concentration jxdaqxq753Cognitive communication wgfqqug59Lack of hqmuxxmgzzhk51/11/2011 06/28/20234075Ejhqfjy12 Overview (06/28/2023): Post traumatic Amnesia Cervical vertebral uqrjtd66 Overview (06/28/2023): History of Cervical vertebral fusion C5-C6 Xhrttsignhybmb98Traumatic kxyvftevmmeifod29 Viral wart, xpyclevcndo23Vitiligo Resolved Problems ProblemNoted DateDiagnosed DateResolved DateAsthmatic pqirhhhsnw36/04/2023/ Encounters DateTypeDepartmentCare MsecYjgllwlyavs88/08/2025Telephone [facility] [address] [place] [address] Lakshmi Presley MA 06/02/2025Orders Only [facility] [address] [place] [address] ProviderAnibal MD 05/08/2025Refill [facility] [address] [place] [address] Jeovanny Garcia MD Paroxysmal atrial fibrillation (CMS/HCC)from Last 3 Months Family History Medical HistoryRelationNameCommentsCancerFatherCoronary artery diseaseFather StrokeFatherCancerMotherDiabetesMotherRelationNameStatusCommentsBrotherDeceased FatherDeceasedMotherDeceasedSisterDeceased Social History Tobacco UseTypesPacks/DayYears UsedDateSmoking Tobacco: NeverSmokeless Tobacco: Never Tobacco Cessation:Counseling Given: Not Answered Alcohol UseStandard Drinks/WeekCommentsYes0 (1 standard drink = 0.6 oz pure alcohol)occasionalAHC UtilitiesAnswerDate RecordedIn the past 12 months has the electric, gas, oil, or water company threatened to shut off services in your home?No11/16/2023Humiliation, Afraid, Rape, and Kick questionnaireAnswerDate RecordedWithin the last year, have you been afraid of your partner or ex-partner?No11/16/2023Emotionally AbusedNot on file11/16/2023hysically Abused Not on file11/16/2023Sexually AbusedNot on file11/16/2023Overall Financial Resource Strain (CARDIA)AnswerDate RecordedHow hard is it for you to pay for the very basics like food, housing, medical care, and heating?Not hard at all 11/16/2023TransportationAnswerDate RecordedIn the past 12 months, has lack of transportation kept you from medical appointments or from getting medications?No 11/16/2023Lack of Transportation (Non-Medical)Not on file11/16/2023Housing Stability Vital SignAnswerDate RecordedUnable to Pay for Housing in the Last YearNot on file11/16/2023Number of Places Lived in the Last YearNot on file 11/16/2023In the last 12 months, was there a time when you did not have a steady place to sleep or slept in ashelter (including now)?No11/16/2023Hunger Vital SignAnswerDate RecordedWithin the past 12 months, you worried that your food would run out before you got the money to buymore.Never true11/16/2023an Out of Food in the Last YearNot on file11/16/2023Sex and Gender InformationValueDate RecordedSex Assigned at BirthNot on fileLegal WdeRjmh2403/23/2022 10:35 PM EDT Gender IdentityNot on fileSexual OrientationNot on file Last Filed Vital Signs Vital SignReadingTime TakenCommentsBlood Adgkdffi209/8504 9:31 AM EDT Uylbm2680 9:31 AM PTLWsfdiqikdfj82.5 ??C (97.7 ??F)11/17/2023 4:00 AM ESTRespiratory Lwqz505712/26/2023 2:08 PM EDTOxygen Wxncyusyak468%01/21/2025 9:31 AM EDTInhaled Oxygen Concentration--Erlray24.2 kg (190 lb)01/21/2025 9:31 AM EDT Nvotcx353.6 cm (5' 6 )01/21/2025 9:31 AM EDTBody Mass Index30.67001/21/2025 9:31 AM EDT Plan of Treatment Health MaintenanceDue DateLast DoneCommentsCT Nrotopwdoyeu1959FIT-DNA 1959FIT1959FOBT1959Medicare Annual Wellness (AWV)1959 Dfdumaxipbkkc1959Depression Lcmkfievh97/30/1971Pneumococcal Vaccine: 50+ Years (1 of 2 - PCV)1978Adult Loplmhb2602/21/1981Fall Risk Screening 02/22/2024OVID-19 Vaccine ( season)5109/25/2021, 09/20/2021, 12/22/2020, Additional history existsInfluenza Vaccine (#1)/, 07/25/2022, 08/10/2021, Additional history cfxeciQvphdtrjkzw54/04/203409/12/2023 Colorectal Cancer Yswocvpic33/04/2034Zoster TrshklbxFgnmxgzzi00/05/2022, 04/05/2022HIB VaccinesAged OutNo longer eligible based on patient's age to complete this topicHPV VaccinesAged OutNo longer eligible based on patient's age to complete this topicIPV VaccinesAged OutNo longer eligible based on patient's age to complete this topicMeningococcal B VaccineAged OutNo longer eligible based on patient's age to complete this topicMeningococcal VaccineAged OutNo longer eligible based on patient's age to complete this topicRotavirus Vaccines Aged OutNo longer eligible based on patient's age to complete this topic Procedures Procedure NamePriorityDate/TimeAssociated DiagnosisCommentsLEXISCAN STRESS MYOCARDIAL PERFUSION TOQNJJSFfrpsty63/04/2025 9:13 AM EDTfrom Last 3 Months Results * Lexiscan Stress Myocardial Perfusion Imaging (05/29/2025 9:13 AM EDT) Anatomical RegionLateralityModalityOther Narrative Authorizing ProviderResult TypeResult StatusHistorical Provider MDCV STRESS PROCEDURESFinal Result from Last 3 Months Insurance Advance Directives * Full Code (Latest Code Status on File) Date ActivatedDate InactivatedComments11/16/2023 4:20 11/17/2023 8:11 PM Care Teams Team MemberRelationshipSpecialtyStart DateEnd Date Ryan Hendrickson MD [address] [address] PCP - Jpxbqdo84/4/23
--- OUTSIDE RECORDS SUMMARY | 2025-07-22 16:40 | XMS_ITS | Clinical Summary ---
Author Organization [facility] Address [address] [facility] [place] [address] Care Team Providers Care Talent Sourcer Name Role Phone Jovita Virk MD Unavailable Source Comments The following information is NOT included in Care Everywhere downloads:Psychiatric notes, ECG results, Cardiac Rehab notes, Pulmonary Function notes, data from Smart[employer] (includes but not limited toPregnancy data,audiograms, eye exams, pre-surgical evaluation notes, well-child exam data).[facility] Allergies No known active allergies Medications MedicationSigDispense QuantityRefillsLast FilledStart DateEnd DateStatus acetaminophen (TYLENOL) 325 MG tablet Take 2 Tabs by mouth every 4 hours as needed. 30 Tab ctive Ibuprofen (ADVIL ORAL) Take by mouth prnActive tamsulosin (FLOMAX) 0.4 MG capsule Take 1 Capsule by mouth daily. 30 Capsule Active levothyroxine (SYNTHROID) 150 MCG tablet Take 1 Tablet by mouth daily. 30 Tablet Active liothyronine (CYTOMEL) 25 MCG tablet Take 1 Tablet by mouth daily. 30 Tablet Active Ascorbic Acid (VITAMIN C) 100 MG TABS Take by mouth daily.Active testosterone cypionate (DEPO-TESTOSTERONE) 200 MG/ML injection Inject 200 mg into the muscle once a month.12/10/2018Active Edmonson-3 Fatty Acids (FISH OIL) 1000 MG CAPS Take 1 Capsule by mouth daily.Active Nutritional Supplements (CREATINE) 750 MG CAPS Take 1 Capsule by mouth daily.Active memantine (NAMENDA) 5 MG tablet Take 1 Tablet by mouth daily. 30 Tablet 2Active Ascorbic Acid (Vitamin C) 100 MG CHEW Vitamin CActive amantadine (SYMMETREL) 100 MG capsule TAKE 1 CAPSULE BY MOUTH EVERY DAY 90 Capsule 3Active Active Problems ProblemNoted DateDiagnosed DateA-fib05/29/20198833Exrczc28/04/2019Arthritis of both knees05/29/2019Cervical disc erxqqua3305/29/2019Spinal xroxmzvn12/04/2019Sleep apnea05/29/2019B12 eytjaxxcai43/29/2018Absolute ewytgs8412/06/2017Thrombocytopenia 12/04/2017Atrial tqghapfuvdqr89/08/2017Status post total left knee replacement 10/13/2016Primary osteoarthritis of right knee09/02/2016Traumatic brain injury 02/23/2016Encounter for vocational njwckml7608/24/2011Specific academic or work inhibition as adjustment peytzfpz34/30/2011Cognitive awdzuitw50/30/2011Muscle jwechecn42/04/2011Encounter for occupational iiwrzxs5807/07/2011Other physical bmrmbsy4907/05/2011Lack of ijdjrhelabfd71/11/2011Memory loss07/05/2011ttention or concentration jhdfeqj8307/05/2011Frontal lobe and executive function deficit 07/05/2011Cognitive communication knegate0907/05/2011Cervical vertebral fusion 06/28/2011 Overview (01/08/2019): History of Cervical vertebral fusion C5-C6 Coifrdvijblxpx29/04/2011Traumatic wheinpwjxdmxjef45/04/2930Nqcgszt69/04/2011 Overview (01/08/2019): Post traumatic Amnesia Cervical spondylosis with bzocxyflif24/19/2007Viral warts04/28/2005 Immunizations ImmunizationAdministration DatesNext DueDTP (CVX=01)09/04/2021Influenza, Injectable, MDCK, Quadrivalent, Preservative Free (NEW=593)08/10/2023,07/25/2022 Influenza, injectable, quadrivalent, preservative free (NRA=475)08/10/2021, 06/30/2020Moderna Monovalent (12+ yrs) COVID-19 vaccine, mRNA, spike protein, LNP, PF, 100 mcg/0.5 mL (MPD=451)2Pfizer Monovalent (12+ yrs) SARS-COV-2 (COVID-19) vaccine, mRNA, spike protein, LNP, pres. free, 30mcg/0.3mL dose (IGH=821)12/22/2020,11/30/2020Zoster Recombinant (RZV,Shingles) (BZQ=808) 08/29/2022,04/05/2022 Family History Medical HistoryRelationNameCommentsCancerFatherSkin, spleen Heart DiseaseFather CancerMotherBreast, lung, brainHeart DiseaseMotherRelationNameStatusComments FatherMother Social History Tobacco UseTypesPacks/DayYears UsedDateSmoking Tobacco: NeverSmokeless Tobacco: Never Tobacco Cessation:Counseling Given: Not Answered Alcohol UseStandard Drinks/WeekCommentsNot Asked0 (1 standard drink = 0.6 oz pure alcohol)Humiliation, Afraid, Rape, and Kick questionnaireAnswerDate RecordedWithin the last year, have you been afraid of your partner or ex-partner?No08/12/2022Within the last year, have you been humiliated or emotionally abused in other ways by your partner or ex-partner?No08/12/2022 Within the last year, have you been kicked, hit, slapped, or otherwise physically hurt by your partner or ex-partner?No08/12/2022Within the last year, have you been raped or forced to have any kind of sexual activity by your part ner or ex-partner?No08/12/2022ocial Connection and Isolation Panel [NHANES] AnswerDate RecordedIn a typical week, how many times do you talk on the phone with family, friends, or neighbors?Never08/12/2022How often do you get together with friends or relatives?Once a week08/12/2022How often do you attend jainism or confucianism services?Patient yzfvqhnw83/18/2022Do you belong to any clubs or organizations such as jainism groups, unions, fraternal or athletic groups, or school groups?Patient hqytaujg71/18/2022How often do you attend meetings of the clubs or organizations you belong to?Patient fdojqbms36/18/2022Are you , , , , never , or living with a partner?Patient anhvokgw57/18/2022verall Financial Resource Strain (CARDIA)AnswerDate Recorded How hard is it for you to pay for the very basics like food, housing, medical care, and heating?Patient hgalgqga37/18/2022[facility] [place] [facility] Occup[facility] - Occupational Stress QuestionnaireAnswerDate RecordedDo you feel stress - tense, restless, nervous, or anxious, or unable to sleep at night because your mind is troubled all the time - these days?Not at all08/12/2022Exercise Vital SignAnswerDate RecordedOn average, how many days per week do you engage in moderate to strenuous exercise (like a brisk walk)?Patient uqbdudxb25/18/2022n average, how many minutes do you engage in exercise at this level?Patient apmoogqc35/18/2022Hunger Vital SignAnswerDate RecordedWithin the past 12 months, you worried that your food would run out before you got the money to buymore. Never true08/12/2022Within the past 12 months, the food you bought just didn't last and you didn't have money to get more.Never true08/12/2022RAPARE - TransportationAnswerDate RecordedIn the past 12 months, has lack of transportation kept you from medical appointments or from getting medications?No 08/12/2022In the past 12 months, has lack of transportation kept you from meetings, work, or from getting things needed for daily living?No08/12/2022 Housing Stability Vital SignAnswerDate RecordedIn the last 12 months, was there a time when you were not able to pay the mortgage or rent on time?No08/12/2022 Number of Places Lived in the Last YearNot on file08/12/2022In the last 12 months, was there a time when you did not have a steady place to sleep or slept in ashelter (including now)?No08/12/2022EducationAnswerDate RecordedWhat is the highest level of school you have completed or the highest degree you have received?12th grade08/12/2022ubstance UseTypesUse/WeekCommentsNot AskedSex and Gender InformationValueDate RecordedSex Assigned at BirthNot on fileLegal Sex Male07/29/2012 12:24 PM ESTGender IdentityNot on fileSexual OrientationNot on file Last Filed Vital Signs Vital SignReadingTime TakenCommentsBlood Rbjzkpha291/8610 2:11 PM EDT Ofvsm5091 2:11 PM QXEPunlkxhgoug53.7 ??C (98 ??F)07/20/2022 2:11 PM EDT Respiratory Kavx7724 2:11 PM EDTOxygen Xkwwovwcdm572%07/20/2022 2:11 PM EDTInhaled Oxygen Concentration--Spqtqy32.9 kg (185 lb)07/20/2022 2:11 PM EDT Ffwnng829.2 cm (5' 7 )12/06/2017 8:56 AM EDTBody Mass Index28.98012/06/2017 8:56 AM EDT Plan of Treatment Health MaintenanceDue DateLast NnojAepblsznTboeglzmuak1959Hepatitis C Fmrchmsj32/30/1977Tdap Nccbykj9302/21/1977Hepatitis A (HAV) Vaccine (optional start 19+ years)1978CRC Xntjqtatn77/30/2004Cologuard (Stool DNA)02/22/2004 FIT02/22/2004Pneumococcal Vaccine(s) (50+ yrs) (1 of 1 - PCV)2009TSH 06/10/201209nnual Wellness Visit (G0438)11/23/2014Hepatitis B (HBV) Vaccine (optional start 60+ years)2019COVID-19 Vaccine ( season)/09/2021, 09/20/2021, 12/22/2020, Additional history exists Influenza Vaccine (#1)/, 07/25/2022, 08/10/2021, Additional history jgmpyrWwuojcctvpk45/08/225379/04/2021, 09/05/2016RSV vaccine (adult) (1 - 1-dose 75+ series)2034Shingles (RZV) JmbibwaQxjwgrxnf21/05/2022, 04/05/2022 Procedures Procedure NamePriorityDate/TimeAssociated YidwguhwzPhvgvcfuEPPIeedluo90/16/2011 1:06 AM EDT from Last 3 Months or Most Recently Relevant to Health Maintenance Results * TSH, HIGH SENSITIVITY (06/10/2011 1:06 AM EDT)ComponentValueRef RangeTest MethodAnalysis TimePerformed AtPathologist SignatureTSH (high sens.)4.5620.300 - 5.600 uIU/mLMHS CLINICAL PATHOLOGY LABORATORYComment:Note: New reference range effective 2010Specimen (Source)Anatomical Location / Laterality Collection Method / VolumeCollection TimeReceived TimeBlood, venous stickBLOOD SPECIMEN / Nnhvbmu3306/10/2011 1:06 AM EDT Narrative Authorizing ProviderResult TypeResult StatusMoeid Blanche PRIETO98 GENERAL LABFinal ResultPerforming OrganizationAddressCity/State/ZIP CodePhone Number [facility] [address] [place], [place] [phone] from Last 3 Months or Most Recently Relevant to Health Maintenance Insurance * Guarantor: Tono Sainz TypeRelation to PatientDate of BirthPhone Billing GiclxqkCdbloyngCagev08/11/1965 [address] [place] [address] Advance Directives * Full Code (Latest Code Status on File) Date ActivatedDate InactivatedComments06/09/2011 2:48 PM10 2:29 PM * Full Code Date ActivatedDate InactivatedComments06/05/2011 4:23 AM9 2:48 PM Care Teams Team MemberRelationshipSpecialtyStart DateEnd Date Jovita Virk MD [address] [place] [phone] PhysicianPhysical Medicine & Rehab/PM&R1
--- OUTSIDE RECORDS SUMMARY | 2025-07-22 16:41 | XMS_ITS | CCD ---
Author Organization [facility] CliniSyct Care Team Providers Care Technical Laboratory Asst Name Role Phone Ilda Peck Primary Care Physician Moose PRIETO, Jovita Unavailable Jovita Virk MD Unavailable CISCO Flores, DR GONSALES Primary Care Unavailable HOY ., DR GONSALES Attending Unavailable HOY ., DR GONSALES Admdoug Unavailable HOY ., DR GONSALES Consulting Unavailable ZIEBER, DR ALFREDITO Crawford Consulting Unavailable LUE ., TAYLOR Pompa Admitting Unavailable LUE ., TAYLOR Pompa Attending Unavailable HOY ., DR GONSALES Consulting Unavailable HOY ., DR GONSALES Primary Care Unavailable PEPE DUNCAN ., DR SAEED Landa Admitting Unavaila ble PEPE DUNCAN ., DR SAEED Landa Attending Unavaila ble PEPE DUNCAN ., DR SAEED Landa Consulting Unavaila ble [...] ., DR GONSALES Primary Care Unavailable PEPE DUNCAN ., DR SAEED Landa Admitting Unavaila ble [...] Unavailable Ilda Peck MD Primary Care Provider [phone] ILDA PECK Primary Care Unavailable SHAWANDA HERNANDEZ Attending Unavailable Sandoval Knight Unavailable MD Ilda Peck Primary Care Provider [phone] MD Tracy Griffin Attending Provider [phone] Ilda Peck MD Primary Care Provider [phone] Unavailable Primary Care Provider UnavailIlda Hernandez MD Primary Care Provider [phone] Shawanda MEJIA Attending Unavailable SILVERMAN, Vianey Crawford Attending Unavailable SILVERMANVianey Attending Unavailable SILVERMAN, Vianey Crawford Attending Unavailable NILShawanda Landa Attending Unavailable Shawanda MEJIA Attending Unavailable Ilda Peck MD Primary Care Provider [phone] Ilda Peck MD Primary Care Provider [phone] OSMIN ANTHONY Attending Unavaila ble ILDA PECK M Referring Unavailable ILDA PECK M Primary Care Unavailable OSMIN ANTHONY Attending Unavaila ble ILDA PECK Primary Care Unavailable HOY, ILDA M Referring Unavailable FOETISOSMIN GARDINER Attending Unavaila ble ILDA PECK M Primary Care Unavailable HOY, ILDA M Referring Unavailable FOOSMIN BLUE Referring Unavaila ble ILDA PECK Primary Care Unavailable Ilda Peck MD Primary Care Provider [phone] Scot Hutchison MD Attending Provider [phone] Scot Hutchison II Attending Unavailabl e Scot Hutchison II Admitting Unavailabl e Cisco, Ilda M Primary Care Unavailable Moose PRIETO, Jovita Unavailable GEORGE LOZA Attending Unavailable BAKARI SCOTT Attending Unavailable Ilda Peck MD Primary Care Provider [phone] ROMÁN DAWSON Attending Unavailable SAGE GOODE Attending Unavailable Ilda Peck MD Primary Care Provider [phone] Scot Hutchison MD Attending Provider [phone] Sage Goode DO Attending Provider Allergies Allergy ClassificationReported Allergen(s)Allergy TypeDate of OnsetReaction(s) Facility (9 sources)Ciprofloxacin; Translations: [ciprofloxacin]Drug Ntxnbyf65-21-8416 Patient reported problems (finding)[facility] Dendron (1 source)Ciprofloxacin; Translations: [Cipro][facility] ([facility] source)No Known Medication Allergies; Translations: [No Known Medication Allergies]Propensity to adverse reactions (disorder)[facility] (1 source)CiprofloxacinDrug Ifbggmp85-94-7394[facility] Medications Current Medications MedicationDrug Class(es)DatesSig (Normalized)Sig (Original)acetaminophen 325 mg oral tablet (6 sources)Start: 39-75-7181ojyp 2 tablets by mouth every four hours as needed acetaminophen (TYLENOL) 325 MG tablet Take 2 Tabs by mouth every 4 hours as needed. 30 Tab 30 06/27/2011 Activeamantadine hydrochloride 100 mg oral capsule (20 sources)Influenza A M2 Protein InhibitorStart: 39-85-0608sytf 1 mg by mouth twice dailyamantadine 100 mg Cap mg cap(s), Oral, BID, Refills(s) 0 Start Date: 05/07/19 Status: OrderedStart: 12-25-2017 End: 20-03-1839mbks 1 capsule by mouth once dailyamantadine (SYMMETREL) 100 MG capsule TAKE 1 CAPSULE BY MOUTH EVERY DAY 90 Capsule 09/22/2023 Activetake 1 tablet by mouth every twenty-four hoursAmantadine HCl 100 MG 1 tablet Orally Once a day Active End: 59-28-5045HBCDICYUTM HCL ORAL Take by mouth. 0 04/26/2023 Discontinued (Course of therapy completed)Comment on above:Take 100 mg by mouth once daily. Take by mouth.apixaban 5 mg oral tablet (20 sources)Factor Xa InhibitorStart: 83-96-0745dkva 1 tablet by mouth twice dailyApixaban 5 mg tablet Active 5 MG PO Twice daily June 06, 2024 12:00am Complies with drug therapy End: 81-73-2276dxad 1 tablet by mouth in the morningapixaban (Eliquis) 2.5 MG tablet Take 2.5 mg by mouth in the morning and 2.5 mg before bedtime. 06/12/2024 Discontinued (Duplicate order)Ascorbic Acid (20 sources)Vitamin CStart: 52-90-4060Aeqjxdb C Daily, Refills(s) 0 Start Date: 05/07/19 Status: OrderedStart: 18-22-9668Reiqukhk Acid (VITAMIN C) 100 mg tablet Daily, Refills(s) 0 0 05/07/2019 Activetake 1 tablet by mouth once dailyascorbic acid (Vitamin C) 1000 MG ER tablet Take 1,000 mg by mouth Daily ActiveAscorbic Acid (Vitamin C) 100 MG CHEW Vitamin C Active End: 64-08-4415ttgr 1 tablet by mouth once dailyascorbic acid, vitamin C, (ascorbic acid with steph hips) 500 mg tablet Take 500 mg by mouth daily. 0 02/18/2025 Discontinued (Therapy completed) End: 24-74-7702BOHYNUOA ACID (VITAMIN C ORAL) Indications: Leukopenia, unspecified type , Thrombocytopenia (HCC) ,Hypothyroidism, unspecified type Take 1,000 mg by mouth. 0 04/26/2023 Discontinued (Course of therapy completed) Comment on above: Daily, Refills(s) 0Take 1,000 mg by mouth.carvedilol 6.25 mg oral tablet (4 sources)alpha-Adrenergic Nalini, beta-Adrenergic BlockerStart: 08-03-2023 End: 53-86-6127kjcj 1 tablet by mouth in the morning, then take 1 tablet by mouth at mealtimecarvediloL (COREG) 6.25 mg tablet Take 1 tablet (6.25 mg total) by mouth in the morning and 1 tablet (6.25 mg total) in the evening. Take with meals. 08/03/2023 08/02/2024 Activetake 1 tablet by mouth every twelve hours Coreg 25 MG 1 tablet with food Orally Twice a day Activecholecalciferol 0.125 mg oral tablet (9 sources)Vitamin Dtake 1 tablet by mouth once dailycholecalciferol (Vitamin D- 3) 125 MCG (5000 UT) tablet Take 5,000 Units by mouth Daily Activechondroitin sulfates 400 mg / glucosamine hydrochloride 500 mg oral tablet (5 sources) End: 98-83-1634ptcw 3 tablets by mouth once dailyglucosamine-chondroitin 500-400 mg tablet Take 3 tablets by mouth daily. 02/18/2025 Discontinued (Therapy completed) End: 20-91-9797nakd 750 mg by mouth once dailyGLUCOSAMINE HCL/CHONDROITIN ARANDA (GLUCOSAMINE-CHONDROITIN) 750-600 mg chew Take 750 mg by mouth once daily. 0 04/26/2023 Discontinued (Course of therapy completed)Comment on above:Take 750 mg by mouth once daily.Depo-Testosterone 200 mg/mL intramuscular solution (3 sources)Start: 92-99-3713Unll-Testosterone 200 mg/mL intramuscular solution 300 mg, IntraMuscular, q4wk, # 10 mL, Refills(s)1, Pharmacy: [facility]/pharmacy #[id number], 167, cm, 10/05/21 11:32:00 EST, Height/Length Dosing, 83, kg, 10/05/21 11:32:00 EST, Weight Dosing Start Date: 01/04/22 Status: Ordereddexpanthenol 2 mg/ml / niacinamide 100 mg/ml / riboflavin 2 mg/ml / thiamine 100 mg/ml / vitamin b62 mg/ml injectable solution (12 sources)Start: 67-41-6857Apgveca B Complex injectable solution Refill(s) 0 Start Date: 05/07/19 Status: OrderedComment on above: Refill(s) 0dilTIAZem hydrochloride 120 mg oral tablet (4 sources)Calcium Channel Nalini End: 84-07-0453npwj 1 tablet by mouth once dailydiltiazem (CARDIZEM) 120 MG tablet Take 120 mg by mouth daily. 02/18/2025 Discontinued (Therapy completed) docosahexaenoic acid 120 mg / eicosapentaenoic acid 180 mg oral capsule (6 sources)take 1 capsule by mouth once dailyOmega-3 Fatty Acids (FISH OIL) 1000 MG CAPS Take 1 Capsule by mouth daily. ActiveDOCOSAHEXANOIC ACID/EPA (FISH OIL ORAL) (4 sources) End: 25-79-9624zcda 1200 mg by mouth once dailyDOCOSAHEXANOIC ACID/EPA (FISH OIL ORAL) Take 1,200 mg by mouth daily. 02/18/2025 Discontinued (Therapy completed) take 1200 mg by mouth once dailyDOCOSAHEXANOIC ACID/EPA (FISH OIL ORAL) Take 1,200 mg by mouth daily. Activetake 1200 mg by mouth once dailyDOCOSAHEXANOIC ACID/EPA (FISH OIL ORAL) Take 1,200 mg by mouth daily. 0 ActiveFish Oils (9 sources)Start: 74-95-2307Liep Oil Oral, Refill(s) 0 Start Date: 05/07/19 Status: OrderedIbuprofen (7 sources)Nonsteroidal Anti-inflammatory DrugIbuprofen (ADVIL ORAL) Take by mouth prn Activetake 4 tablets by mouth twice dailyibuprofen (ADVIL) 200 mg tablet Take 800 mg by mouth twice daily. 0 ActiveIbuprofen (ADVIL ORAL) Take by mouth prn 0 ActiveComment on above:Take 800 mg by mouth twice daily. levothyroxine sodium 0.112 mg oral tablet (20 sources)l-ThyroxineStart: 06-11-2025 End: 97-32-8528bmlp 1 tablet by mouth in the morninglevothyroxine (Synthroid, Levoxyl) 112 MCG tablet Indications: Sarah's disease Take 1 tablet (112 mcg) by mouth in the morning and 1 tablet (112 mcg) before bedtime. 90 tablet 3 06/11/2025 06/06/2026 ActiveStart: 05-19-2025 End: 02-14-0980qpyr 1 tablet by mouth once daily before mealtimelevothyroxine (Synthroid, Levoxyl) 100 MCG tablet Indications: Sarah's disease TAKE 1 TABLET BYMOUTH ONCE EVERY MORNING BEFORE MEALS 90 tablet 3 05/19/2025 06/11/2025 Discontinued (Dose adjustment)Start: 68-10-0393iqwv 1 tablet by mouth before mealtimelevothyroxine (Synthroid, Levoxyl) 100 MCG tablet Indications: Sarah's disease (CMS/HCC) Take 1tablet (100 mcg) by mouth in the morning. Take before meals. 90 tablet 3 06/12/2024 ActiveStart: 43-02-9799qnkq 1 tablet by mouth before mealtimelevothyroxine (Synthroid, Levoxyl) 100 MCG tablet Indications: Sarah's disease (CMS/HCC) Take 1tablet (100 mcg) by mouth in the morning. Take before meals. 90 tablet 3 06/12/2024 ActiveStart: 06-06-2024 End: 94-39-7813ycrr 1 tablet by mouth once dailyLevothyroxine 100 mcg tablet Active 100 MCG PO Daily June 06, 2024 12:00am Complies with drug therapy Start: 67-14-2366vnpx 1 tablet by mouth once dailylevothyroxine 150 mcg (0.15 mg) Tab 150 mcg = 1 tab(s), Oral, Daily, Refills(s) 0 Start Date: 05/07/19 Status: OrderedStart: 14-44-7947vxry 1 tablet by mouth once dailylevothyroxine (SYNTHROID) 150 MCG tablet Take 1 Tablet by mouth daily. 30 Tablet 3 02/08/2017 ActiveStart: 61-80-4472czdkvxpjaxyfa (SYNTHROID, LEVOTHROID) 175 MCG tablet Take 150 mcg by mouth once daily. 11 08/25/2016 ActiveComment on above:Take 150 mcg by mouth once daily. liothyronine sodium 0.025 mg oral tablet (20 sources)l-TriiodothyronineStart: 81-41-1942haee 12.5 ug by mouth once daily Liothyronine Active 12.5 MCG PO Daily June 06, 2024 12:00amStart: 13-71-4639esdh 1 tablet by mouth once dailyliothyronine 25 mcg Tab 25 mcg = 1 tab(s), Oral, Daily, Refills(s) 0 Start Date: 05/07/19 Status: OrderedStart: 02-08-2017 End: 77-38-7022fapc 1 tablet by mouth once daily, then take 0.5 tablet by mouth once dailyliothyronine (Cytomel) 25 MCG tablet Indications: Sarah's disease Take 1 tablet (25 mcg) by mouth Daily Take 0.5 tabs po qd 90 tablet 3 06/11/2025 09/09/2025 Active End: 14-56-5732hnjc 0.5 tablet by mouth once dailyliothyronine (Cytomel) 25 MCG tablet Take 25 mcg by mouth Daily Take 0.5 tabs po qd 06/11/2025 Discontinued (Reorder)Comment on above:Take 25 mcg by mouth once daily.lisinopril 10 mg oral tablet (3 sources)Angiotensin Converting Enzyme InhibitorStart: 69-57-1974Vvqusagsnv 10 mg tablet Active MG PO May 13, 2025 12:00am Complies with drug therapy lithium aspartate 20 mg oral capsule (7 sources)take 1 capsule by mouth once dailyNutritional Supplements (CREATINE) 750 MG CAPS Take 1 Capsule by mouth daily. Activetake 1 capsule by mouth once dailyLithium Aspartate 20 mg cap Take 1 capsule by mouth once daily. 0 Active Comment on above:Take 1 capsule by mouth once daily.memantine hydrochloride 5 mg oral tablet (6 sources)G-dwvruk-B-aspartate Receptor AntagonistStart: 07-20-2022 End: 93-95-5775gios 1 tablet by mouth once dailymemantine (NAMENDA) 5 MG tablet Take 1 Tablet by mouth daily. 30 Tablet 3 07/20/2022 Activetamsulosin hydrochloride 0.4 mg oral capsule (20 sources)alpha-Adrenergic BlockerStart: 11-24-2021 End: 68-52-2809zhew 1 capsule by mouth twice dailyFlomax 0.4 mg Cap 0.4 mg = 1 cap(s), Oral, BID, X 90 day(s), # 180 cap(s), Refills(s) 3, Pharmacy: [facility]/pharmacy #[id number], 167, cm, 10/05/21 11:32:00 EST, Height/Length Dosing, 83, kg, 10/05/21 11:32:00 EST, Weight Dosing Start Date: 11/24/21 Stop Date: 11/19/22 Status: OrderedStart: 40-46-3126qpoq 1 capsule by mouth once dailyTamsulosin 0.4 mg capsule Active 0.4 MG PO Daily June 06, 2024 12:00am Complies with drug therapytake 1 capsule by mouth every twenty-four hours in the morning tamsulosin (FLOMAX) 0.4 mg capsule,extended release 24hr Take 1 capsule (0.4 mg total) by mouth in the morning. ActiveComment on above:0.4 mg once daily. testosterone cypionate 200 mg/ml injectable solution (18 sources)AndrogenStart: 18-23-1279Nlrl-Testosterone 200 mg/mL intramuscular solution 300 mg, IntraMuscular, q4wk, # 10 mL, Refills(s)1, [id number], cm, 12/02/22 8:17:00 EST, Height/Length Dosing, 83.2, kg, 12/02/22 8:17:00 EST, Weight Dosing Start Date: 05/03/23 Status: OrderedStart: 50-16-7342Dklq-Testosterone 200 mg/mL intramuscular solution 300 mg, IntraMuscular, q4wk, # 10 mL, Refills(s)1, Pharmacy: [facility]/pharmacy #[id number], 167, cm, 10/05/21 11:32:00 EST, Height/Length Dosing, 83, kg, 05/10/22 10:08:00 EDT, Weight Dosing Start Date: 09/07/22 Status: OrderedStart: 98-22-5584Tawe- Testosterone 200 mg/mL intramuscular solution 300 mg, IntraMuscular, q4wk, # 10 mL, Refills(s)1, [id number], cm, 10/05/21 11:32:00 EST, Height/Length Dosing, 83, kg, 10/05/21 11:32:00 EST, Weight Dosing Start Date: 01/04/22 Status: OrderedStart: 66-42-6078ltdmskypbwoc cypionate (DEPO- TESTOSTERONE) 200 MG/ML injection Inject 200 mg into the muscle once amonth. 12/10/2018 ActiveTestosterone Cypionate 200 MG/ML 1.5 mL Intramuscular EVERY 4 WEEKS ActiveComment on above:INJECT 1ML INTRAMUSCULARLY EVERY MONTHVitamin B Complex injectable solution (3 sources)Start: 90-71-4380Tzehphg B Complex injectable solution Refill(s) 0 Start Date: 05/07/19 Status: OrderedVitamin D (17 sources)Start: 73-23-0132Iwxlzmt D International_Unit, Oral, qWeek, Refills(s) 0 Start Date: 08/31/21 Status: Ordered Completed/Discontinued Medications MedicationDrug Class(es)DatesSig (Normalized)Sig (Original)aspirin 325 mg delayed release oral tablet (5 sources)Platelet Aggregation Inhibitor, Nonsteroidal Anti-inflammatory Drug Start: 01-09-2018 End: 71-93-1079nebz 1 tablet by mouth once dailyaspirin, enteric coated (ASPIRIN, ENTERIC COATED) 325 mg EC tablet Take 325 mg by mouth once daily.2 01/09/2018 04/26/2023 Discontinued (Course of therapy completed) End: 57-48-8886okgq 1 tablet by mouth in the morningaspirin 325 mg tablet Take 1 tablet (325 mg total) by mouth in the morning. 02/18/2025 Discontinued(Therapy completed)Comment on above:Take 325 mg by mouth once daily.atomoxetine 60 mg oral capsule (1 source)Norepinephrine Reuptake Inhibitor End: 87-97-4558zpgb 1 capsule by mouth once dailyatomoxetine (STRATTERA) 60 mg capsule Take 60 mg by mouth once daily. 0 04/26/2023 Discontinued (Course of therapy completed)Comment on above:Take 60 mg by mouth once daily.betamethasone 3 mg/ml / betamethasone acetate 3 mg/ml injectable suspension (1 source)CorticosteroidStart: 02-18-2025 End: 56 mg, intra-articular, One-Time Injection, Starting on Mon02/18/25 at 1056, For 1 doseBupivacaine (4 sources)Amide Local AnestheticStart: 02-18-2025 End: 98-37-573074 mg, intra-articular, One-Time Injection, Starting on Mon02/18/25 at 1056, For 1 doseStart: 10-08-2024 End: 34-46-056592 mg, intra-articular, One-Time Injection, Starting on Mon10/08/24 at 1440, For 1 doseStart: 06-11-2024 End: 13-26-790736 mg, intra-articular, One-Time Injection, Starting on Mon06/11/24 at 1129, For 1 doseStart: 11-02-2023 End: 80-22-5781KXFtdiqjhfi HCl (MARCAINE) 0.5 % (5 mg/mL) injection 30 mg Creatine (1 source) End: 54-88-7958YBPRAEFK MONOHYDRATE (CREATINE ORAL) Indications: Leukopenia, unspecified type , Thrombocytopenia (HCC) , Hypothyroidism, unspecified type Take by mouth. 0 04/26/2023 Discontinued (Course of therapy completed)Comment on above:Take by mouth.1 ml dexamethasone phosphate 4 mg/ml injection (4 sources)CorticosteroidStart: 02-18-2025 End: mg, intra-articular, One-Time Injection, Starting on Mon02/18/25 at 1056, For 1 doseStart: 10-08-2024 End: mg, intra-articular, One-Time Injection, Starting on Mon10/08/24 at 1440, For 1 doseStart: 06-11-2024 End: mg, intra-articular, One-Time Injection, Starting on Mon06/11/24 at 1129, For 1 doseStart: 11-02-2023 End: 50-88-4841zpqPUHHDiedbr (DECADRON) injection 8 mgfolic acid 1 mg oral tablet (1 source)Start: 02-05-2018 End: 97-68-5308lllq 1 tablet by mouth once dailyfolic acid 1 mg tablet TAKE ONE TABLET BY MOUTH DAILY 30 tablet 5 02/05/2018 04/26/2023 Discontinued (Course of therapy completed)Comment on above:TAKE ONE TABLET BY MOUTH DAILYhydrALAZINE hydrochloride 25 mg oral tablet (19 sources)Arteriolar VasodilatorStart: 05-07-2024 End: 63-47-9167bdln 1 tablet by mouth three times dailyHydralazine 25 mg tablet Discontinued 25 MG PO Three times daily June 06, 2024 12:00am May 13, 2025 11:22amomega-3 fatty acids (FISH OIL CONCENTRATE) 1,000 mg cap (1 source)take 1 capsule by mouth twice dailyomega-3 fatty acids (FISH OIL CONCENTRATE) 1,000 mg cap Take 2 g by mouth twice daily. 0 ActiveComment on above:Take 2 g by mouth twice daily.omega-3s/dha/epa/fish oil/D3 (VITAMIN-D + OMEGA-3 ORAL) (1 source)Start: 65-11-9639kabyv-3s/dha/epa/fish oil/D3 (VITAMIN-D + OMEGA-3 ORAL) Take by mouth. 0 08/31/2021 ActiveComment on above:Take by mouth. Problems Active Problems Problem ClassificationProblemDateDocumented DateEpisodic/ChronicAcute cerebrovascular disease (1 source)Cerebrovascular accident; Translations: [Cerebral infarction, unspecified]19-02-7562QngennoSizvqbncnc disorders (5 sources)Specific academic or work inhibition; Translations: [Specific academic or work inhibition as adjustment reaction]Onset: ChronicAsthma (1 source)Asthmatic bronchitis; Translations: [Unspecified asthma, uncomplicated]63-11-1359MccmobnDlhzdwk dysrhythmias (20 sources)Atrial fibrillation; Translations: [Unspecified atrial fibrillation] Onset: 235879-76-3508PqsdfvkAjkptcs kidney disease (6 sources)Chronic kidney disease stage 3; Translations: [Chronic kidney disease, stage III (moderate)]71-71-1270WzldclmDzemnplkryb and hemorrhagic disorders (14 sources)Platelet count below reference range; Translations: [Thrombocytopenia, unspecified]Onset: 916254-60-9722PjjyqemSikqymhdvi associated with dizziness or vertigo (1 source)Vertigo; Translations: [Dizziness and giddiness]65-41-1139Taskkykc Congestive heart failure; nonhypertensive (3 sources)Acute combined systolic and diastolic heart -27-4331Wgbhppp Diseases of white blood cells (7 sources)Neutropenia, unspecified; Translations: [Neutropenia]Onset: 96-64-2563KecxbfqLebmnvoue usually diagnosed in infancy, childhood, or adolescence (5 sources)Attention deficit hyperactivity disorder, predominantly inattentive type; Translations: [Other specified behavioral and emotional disorders with onset usually occurring in childhood and adolescence]Onset: ChronicEssential hypertension (5 sources)Hypertensive disorder; Translations: [Essential (primary) hypertension]Onset: 939349-68-9089OniqbeyRskxrefcknohj symptoms and ill- defined conditions (5 sources)Urge incontinence; Translations: [Urge incontinence of urine]Onset: 46-61-1580NfyygnsNchijsyujpmyr symptoms and ill-defined conditions (20 sources)Nocturia; Translations: [Poor stream of urine]53-17-7818Dqqmnunl Hyperplasia of prostate (20 sources)Benign prostatic hypertrophy with outflow obstruction; Translations: [Benign prostatic hyperplasia with lower urinary tract symptoms]Onset: 679305-11-2449FgmyfmdSyttlvyywvfb with complications and secondary hypertension (11 sources)Chronic kidney disease due to hypertension; Translations: [Hypertensive chronic kidney disease withstage 1 through stage 4 chronic kidney disease, or unspecified chronic kidney disease]Onset: 20-72-4443Vcqvqon Miscellaneous mental health disorders (1 source)Unspecified persistent mental disorders due to conditions classified elsewhereOnset: 304292-40-6057DahwpxkYzvy wounds of extremities (1 source)Puncture wound of thumb of left hand; Translations: [Puncture wound with foreign body of left thumbwithout damage to nail, initial encounter]Onset: 27-35-8003ManlanpaEharxauccgmnqq (20 sources)Bilateral arthritis of knees; Translations: [Bilateral primary osteoarthritis of knee]Onset: 891871-27-7171ZphgobeTpgcvsfekxxv (3 sources)Osteoporosis; Translations: [Age-related osteoporosis without current pathological fracture]08-57-8237QsatrqpRdumu aftercare (4 sources)Long-term current use of 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; 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]Onset: 66-81-8995XlsoqiryTjchb aftercare (3 sources)Long-term current use of drug therapy; Translations: [Other rn long term care (current) drug therapy]18-69-0869WhepanyfMklbr and ill-defined cerebrovascular disease (3 sources)Cerebrovascular dclajog35-52-2597TdlbuhjKtccs circulatory disease (1 source)Orthostatic hypotension; Translations: [Orthostatic hypotension] 75-70-6737JokufaseDivsj connective tissue disease (10 sources)History of total knee arthroplasty; Translations: [Presence of left artificial knee joint]Onset: 899635-97-7233DxsxxzoMwvew connective tissue disease (1 source)Knee joint replacementOnset: 265285-19-5497QssraecQofyp connective tissue disease (1 source)Decrease in height; Translations: [Loss of height]64-31-9294Oonqscjy Other diseases of kidney and ureters (1 source)Secondary hyperparathyroidism; Translations: [Secondary hyperparathyroidism of renal origin]ChronicOther diseases of kidney and ureters (1 source)Secondary hyperparathyroidism of renal originChronicOther diseases of kidney and ureters (2 sources)Cyst of kidney, acquired; Translations: [Cystic kidney disease, unspecified]EpisodicOther diseases of kidney and ureters (4 sources)Cyst of kidney; Translations: [Cyst of kidney, acquired]06-05-2024 EpisodicOther endocrine disorders (12 sources)Testicular hypofunction; Translations: [Testicular hypofunction] Onset: 60-01-3822BggmzsvAwtdw endocrine disorders (17 sources)Male hpdmyvrkfkwd80-06-4602ZxbugowSuqjr endocrine disorders (5 sources)Testicular hypofunction; Translations: [TESTICULAR HYPOFUNCTION] Onset: 05-83-3454FzuhetlBvoew endocrine disorders (4 sources)Testicular hyperfunction; Translations: [TESTICULAR HYPERFUNCTION] Onset: 91-40-2352KgvphjzXnhbm injuries and conditions due to external causes (17 sources)H/O: head hxvxax06-94-4105MpxfutvbQrcvj lower respiratory disease (2 sources)Snoring; Translations: [Snoring]12-74-1015UxjuqygmZtfkq male genital disorders (17 sources)Secondary erectile ohwwgvxgksn70-89-9818HolxprcFpcel male genital disorders (8 sources)Male erectile dysfunction, unspecified; Translations: [Erectile dysfunction]Onset: 82-29-2240BsqnyxpNsgkg nervous system disorders (5 sources)Disturbance of attention; Translations: [Attention and concentration deficit]Onset: 969649-83-1079XikaryfDkhgs nervous system disorders (5 sources)Impaired executive functioning; Translations: [Frontal lobe and executive function deficit]Onset: 968932-81-2309MufijyhLezwo nervous system disorders (5 sources)Cognitive deficit in communication skills; Translations: [Cognitive communication deficit]Onset: 219450-53-2826XkxxoqcZxnxx nervous system disorders (1 source)Aphasia; Translations: [Aphasia]11-66-6543NwddgdfPdgan nervous system disorders (1 source)Attention or concentration deficitOnset: 799562-99-6240Ryhnspj Other nervous system disorders (1 source)Frontal lobe and executive function deficitOnset: ChronicOther nervous system disorders (1 source)Cognitive communication deficitOnset: 572001-07-2101AeagyyuDgmiu nervous system disorders (1 source)Other symptoms and signs involving cognitive functions and awareness; Translations: [Other signs and symptoms involving cognition]EpisodicOther nervous system disorders (1 source)Dysarthria; Translations: [Dysarthria and anarthria]42-95-9705Jletuhfm Other non-traumatic joint disorders (1 source)Arthropathy, unspecified, lower legOnset: 793442-33-2341Hvbwhdj Other non-traumatic joint disorders (1 source)Pain in right knee; Translations: [Pain in right knee]Onset: 04-00-2974HwsuxjrvCaehq nutritional; endocrine; and metabolic disorders (4 sources)Overweight in adulthood with body mass index of 25 or more but less than 30; Translations: [Body mass index (BMI) 28.0-28.9, adult]EpisodicOther nutritional; endocrine; and metabolic disorders (3 sources)Dtgxkaeqgt89-09-3145EstjhihoUchbz screening for suspected conditions (not mental disorders or infectious disease) (2 sources)Encounter for screening for malignant neoplasm of prostate; Translations: [Screening for malignant neoplasm of colon done]Onset: 03-09-2022 EpisodicResidual codes; unclassified (9 sources)Sleep apnea; Translations: [Sleep apnea, unspecified]Onset: 664036-55-8031IdvdzzqTjrhyxgp codes; unclassified (13 sources)Obstructive sleep apnea syndrome; Translations: [Obstructive sleep apnea (adult) (pediatric)]Onset: 026490-03-8044YdcoippZagaficq codes; unclassified (2 sources)Obstructive sleep apnea (adult) (pediatric); Translations: [Obstructive sleep apnea (adult)(pediatric)]ChronicResidual codes; unclassified (8 sources)Hypersomnia; Translations: [Hypersomnia, unspecified]Onset: 149078-38-3579FwnitimGchontxf codes; unclassified (3 sources)Periodic limb movement disorder; Translations: [Periodic limb movement disorder]Onset: 531466-86-0504TiohyybZxsgwluh codes; unclassified (1 source)Unspecified sleep apneaOnset: 231242-06-5868GldyajkUiotvsxy codes; unclassified (3 sources)Periodic leg movements of sleep ; Translations: [Periodic limb movement disorder]Onset: 586880-93-1023ZdukjyuIydqnyws codes; unclassified (2 sources)Sleep deprivation; Translations: [Sleep deprivation]07-17-2024 EpisodicSpondylosis; intervertebral disc disorders; other back problems (15 sources)Cervical spondylosis; Translations: [Other spondylosis with myelopathy, cervical region]Onset: 895893-12-6559TpcoetnCqiezal disorders (20 sources)Hypothyroidism; Translations: [Hypothyroidism, unspecified]Onset: 06-28-2011 Resolved: 929466-98-0594TjntmsqLzmduidujpyx (3 sources)Patient encounter asnjjs65-91-8668Svzpniwfbzhp (2 sources)Puncture wound of left thumb with foreign jhij25-62-8438Mzptysgmifew (2 sources)Other persistent atrial fibrillation; Translations: [Other persistent atrial fibrillation]Onset: 11-27-2023 Past or Other Problems Problem ClassificationProblemDateDocumented DateEpisodic/ChronicAllergic reactions (10 sources)Eczema; Translations: [Dermatitis, unspecified]Onset: 05-29-2019 38-94-4079CiivnxwnHizrgdg kidney disease (1 source)Chronic kidney diseaseDeficiency and other anemia (6 sources)Anemia; Translations: [Anemia, unspecified]Onset: 12-06-2017 45-90-3717NxphemajNcslpfjquz and other anemia (1 source)Anemia, unspecifiedOnset: 020678-18-2959GyhurgcyQmscaxpocmgj injury (7 sources)Traumatic brain injury; Translations: [Unspecified intracranial injury with loss of consciousness of unspecified duration, initial encounter] Onset: 235249-92-9911ZaxujrnsOxaqarvrwqi deficiencies (10 sources)Cobalamin deficiency; Translations: [Deficiency of other specified B group vitamins]Onset: 809024-78-6891PfgddwohUnqjm aftercare (1 source)Care involving other physical therapyOnset: EpisodicOther aftercare (1 source)Encounter for occupational therapyOnset: 961140-84-0134Olfejayn Other aftercare (1 source)Encounter for vocational therapyOnset: 222044-45-6297Zczaavvi Other circulatory disease (2 sources)Personal history of other diseases of the circulatory system; Translations: [Personal history of other diseases of the circulatory system] Onset: 01-66-5705XwbqdarhFzwbb connective tissue disease (5 sources)Muscle weakness; Translations: [Muscle weakness (generalized)]Onset: 502557-06-9279NutktswxCyecb connective tissue disease (1 source)Impingement syndrome of left shoulder; Translations: [IMPINGEMENT SYNDROME LEFT SHOULDER]Onset: 24-61-4339WseqrrgwXffjh connective tissue disease (1 source)Impingement syndrome of right shoulder; Translations: [IMPINGEMENT SYNDROME RIGHT SHOULDER]Onset: 46-89-0604SoubgjuqBuqmq connective tissue disease (1 source)Muscle weakness (generalized)Onset: 546133-48-8530JpybsdggYljvd nervous system disorders (5 sources)Incoordination; Translations: [Unspecified lack of coordination] Onset: 250086-79-2607AoljrauoRmynm nervous system disorders (5 sources)Impaired cognition; Translations: [Other symptoms and signs involving cognitive functions and awareness]Onset: 349444-23-7066PipvgwgsHuaoy nervous system disorders (1 source)Lack of coordinationOnset: 863252-89-9621LfckwriaChlij skin disorders (1 source)Vitiligo; Translations: [Vitiligo]Onset: 360091-04-2278Uxjjtwky Rehabilitation care; fitting of prostheses; and adjustment of devices (15 sources)Patient encounter status; Translations: [Other physical therapy] Onset: 242413-45-2802RqirbqmhJnongobz codes; unclassified (10 sources)Amnesia; Translations: [Other amnesia]Onset: EpisodicResidual codes; unclassified (2 sources)Memory lossOnset: 179633-79-0744OpagocctXfxscpoa codes; unclassified (2 sources)Other specified postprocedural states; Translations: [Other specified postprocedural states]Onset: 28-40-2076BsfzgfaeEnnyfzjvbcd; intervertebral disc disorders; other back problems (20 sources)Cervical spine ankylosis; Translations: [Fusion of spine, cervical region]Onset: 185959-37-4538MvvtkgtwYbhmamcpwpj injury; contusion (6 sources)Traumatic hematoma; Translations: [Contusion of unspecified part of head, initial encounter]Onset: 243600-69-3193UqqoiegoQkznf infection (7 sources)Verruca vulgaris; Translations: [Viral wart, unspecified]Onset: 826187-61-5552Kqxyxtjk Results Test NameValueInterpretationReference XrrucNeklnrmk81lq 66-46-559746Ccmwjmjzm stress test result from 05/29/2025: George Loza MD 06/02/25 11:10 AM Please reassure them that his stress test is negative; he can proceed with any operation as needed. Recommend strict heart rate and blood pressure control and avoidance of major fluid shifts perioperatively. Thanks Me to George Loza MD [place] 06/02/25 1:21 PM Thanks. The surgeon doing his knee replacement would also like to know if he can hold Eliquis prior to surgery for 3 days. Please advise. Thanks. George Loza MD to 06/02/25 2:30 PM Most definitely. No need for bridging. Thanks! LM for patient's Nitza on her VM. This note faxed to orthopedic office performing his surgery.NormalUnSouthview Medical CenterOrders Onlyon 80-31-8529Tvtzmk [id number] Vianey Lacey 1960 M Date Provider Department Center 06/02/2025 [id number], HISTORICAL MAXWELL [facility] Family History Problem Relation Age of Onset Cancer Mother Diabetes Mother Coronary artery disease Father Stroke Father Cancer Father Family Status - Relation Status Age at Mother Father Sister Brother DeceasedNormalUniversity [facility] NorthGlucose mean value [Mass/volume] in Blood Estimated from glycated hemoglobinOrdered By: Scot Hutchison on 35-10-3421Eqqmzib glucose Estimated from glycated hemoglobin (Bld) [Mass/Vol]100 mg/dLSalem City HospitalHemoglobin A1c percentage Ordered By: Scot Hutchison on 47-41-9879EwO2s (Bld) [Mass fraction]5.1 %4.5-6.2 [facility] HospitalComment on above:ADA RECOMMENDED LIMIT 4.0 - 6.0ADA THERAPEUTIC TARGET < 7.0ACTION SUGGESTED> 7.0Laboratory - Chemistry and Chemistry - challengeOrdered By: Scot Hutchison on 73-78-0971Seqcggv [Mass/Vol] 4.2 g/dL3.4-5.0[facility] HospitalNo Panel InformationOrdered By: Scot Hutchison on 638486-Gmfacbz Vitamin D Total78.3 ng/mLSalem City HospitalComment on above:<20 ng/mL Vit D luujvwzxg23-<30 ng/mL Vit D aeezlueotxuc68-355 ng/mL Vit D sufficient>100 ng/mL Potential Toxicity Miscellaneous TestCOMMENT.[facility] City HospitalComment on above:Test Ordered: [id number] Nicotine and Metabolite, QuantNicotine <1.0 ng/mL Reference Range: .Thistest was developed and its performance characteristicsdetermined by [employer]. It has not been cleared orapproved by the Food and Drug Administration.Nicotine levels greater than 2.0 are consistent with theuse of tobacco or tobacco cessation products.Cotinine <1.0 ng/mL BN Reference Range: .This test was developed and its performance characteristicsdetermined by [employer]. It has not been cleared orapproved by the Food and Drug Administration.Cotinine levels greater than 20.0 are consistent withtheuse of tobacco or tobacco cessation products.Performed at: [facility] [employer] [id number] Director: Nicole Calles MD, Phone: [phone] at: [address] [id number] Director: Aleks Ferreira PhD, Phone: [phone] Regarding lab results from 02/12/2025: MD Lakshmi Stone MA Please let him know that his serum creatinine is normal. Thank you. Patient's informed.NormalParma Community General HospitalXR KNEE RT MIN 4 VWSon 72-88-8436EA KNEE RT MIN 4 VWSXR KNEE RT MIN 4 VWS XR KNEE RT MIN 4 VWS Clinical history:Primary osteoarthritis of right knee Comparison: 12/21/2017. Findings: Tricompartmental joint degenerative change and joint space loss and narrowing osteophyte formation in all 3 compartments. No joint effusion fracture or dislocation. No patellar subluxation. Synovial calcifications of the superior joint recess suggested. Impression: Severe tricompartmental joint degenerative change. Finalized by Shawanda Duncan MD on 02/19/2025 4:30 PMNSt. Mary's Medical [facility]$ Large Joint Injection: knee, R kneeon 30-01-1640Jjjntjolpcgandres Anthony MD 02/18/2025 11:33 AM $ Large [...] used to prep the skin.). MANUALLY TRANSCRIBED [facility]Orders Onlyon 02-13-2025 Orders [id number] Vianey Lacey 1960 M Date Provider Department Center 02/13/2025 [id number], HISTORICAL MAXWELL [facility] Family History Problem Relation Age of Onset Cancer Mother Diabetes Mother Coronary artery disease Father Stroke Father Cancer Father Family Status - Relation Status Age at Mother Father Sister Brother DeceasedNormalUniOhioHealth Van Wert HospitalOffice Visiton 10-29-7240Jgzmun-up [id number] Vianey Lacey 1960 M Date Provider Department Center 01/21/2025 271-GEORGE LOZA MAXWELL [facility] Family History Problem Relation Age of Onset Cancer Mother Diabetes Mother Coronary artery disease Father Stroke Father Cancer Father Family Status - Relation Status Age at Mother Father Sister Brother Level of Service:45380 [place] OFFICE/OUTPATIENT ESTABLISHED MOD MDM 30 [facility]36on 76-88-539965Epfoard's would like you to review his most recent labs from 11/20/2024 and see if he should start lisinopril. Results are in media coordinator. Nitza says he never started lisinopril because they were keeping an eye on his renal function. Recent BP's have been 141/84, 136/83, 143/87, 141/83. Also, she is looking into buying an infrared sauna, but wasn't sure how you felt about PJ using it with his heart and kidney issues. Please advise. Thanks![facility] Memorial HospitalUrology Office/Clinic Noteon 19-08-0879Jiyhtoc Office/Clinic NoteUrology Office/Clinic Note Chief Complaint 1 year f/u HPI Staff 64yr old male pt here for 1yr f/u with PSA. Previous Dx: BPH with urinary obstruction, hypogonadism male, urge incontinence, ED *Tamsulosin 0.4mg QD PSA 09/06/21 - 0.70 06/15/22 - 0.79 He did have labs done @ [facility] but no PSA Dysuria: denies Incomplete [...] bedtime. Good stream. Feels he empties. Denies anyaccidents but does get urgency if he delays voiding. Pt recently had blood work done for PCP but PSA was not done. Recommended pt to update this. -Cont Tamsulosin wo changes. Refills sent to [facility]. -Complete PSA level soon. [...] Vianey Crawford, URL [facility] [address] [place] [address] [phone] Additional Instructions: 1 yr w/ PSA and [...] Oral, TID levothyroxine 150 (more content not included)...[facility] HospitalComment on above:Result Comment: Electronically Signed By: Vianey SILVERMAN MD\.br\Date and Time Signed: 10/21/24 11:59 EST\.br\Electronically Co- Signed By: Nicki Jackson.br\Date and Time Co-Signed: 10/21/24 11:57 EST$ Large Joint Injection: R kneeon 47-50-6586Eidwqwyspyqandres Anthony MD 10/08/2024 2:51 PM $ Large [...] prepped with betadine and alcohol.). MANUALLY TRANSCRIBED RESULTSSalem City Hospital SystemAmbulatory Visit Summaryon 48-90-6792Khyurjyzrl Visit SummaryAmbulatory Visit Summary VIANEY LACEY :1960 Visit Date:08/13/2024 [...] PRIETO, Vianey Crawford Where: [facility] [place] [id number]- Medications What How Much When Instructions Unchanged [...] you for choosing us for your care. [facility] HospitalOffice Visiton 64-18-5862Zoetkc- up [id number] Vianey Lacey 1960 Provider Department Center 07/16/2024 BAKARI CARSON CARD [facility] Family History Problem Relation Age of Onset Cancer Mother Diabetes Mother Coronary artery disease Father Stroke Father Cancer Father Family Status - Relation Status Age at Mother Father Level of Service:82033 [place] OFFICE/OUTPATIENT ESTABLISHED LOW MDM 20 [facility]$ Large Joint Injection: R kneeon 06-11-2024 Osmin Anthony MD 06/11/2024 12:03 PM [...] prepped with betadine and alcohol.). MANUALLY TRANSCRIBED RESULTSProMercy Health Allen Hospitalca Health SystemOrders Onlyon 06-11-2024 Orders [id number] Vianey Lacey 1960 Provider Department Center 06/11/2024 Isa-GEORGE LOZA [facility] Family History Problem Relation Age of Onset Cancer Mother Diabetes Mother Coronary artery disease Father Stroke Father Cancer Father Family Status - Relation Status Age at Mother FatherNormalUniversity of Laredo Medical CenterErythrocyte distribution width Auto (RBC) [Ratio]on 22-15-3503Oxhozmegfde distribution width (RBC) [Ratio]13.3 %11.0-15.0[facility] HospitalEstimated glomerular filtration rate (GFR) non- Americanon 18-42-5393HYM/1.73 sq M.predicted among non-blacks MDRD (S/P/Bld) [Vol rate/Area]mL/min/{1.73_m2}>=60[facility] HospitalHematocrit Auto (Bld) [Volume fraction]on 84-44-6678Axuppowqzk (Bld) [Volume fraction]45.4 %42.0-54.0[facility] HospitalHemoglobin [Mass/volume] in Bloodon 73-27-5289Lykedlvrrk (Bld) [Mass/Vol]15.4 g/dL14.0-18.0 [facility] HospitalLaboratory - Chemistry and Chemistry - challengeon 72-67-6142Yugkeog [Mass/Vol]3.8 g/dL3.4-5.0[facility] HospitalCalcium [Mass/Vol]8.9 mg/dL8.5-10.1FOhioHealth Dublin Methodist HospitalChloride [Moles/Vol]101 mmol/S67-151IhwbcaeslSalem City HospitalCO2 [Moles/Vol]31.2 mmol/L21.0-32.0[facility] HospitalCreatinine [Mass/Vol]1.06 mg/dL0.70-1.30[facility] HospitalGFR/1.73 sq M.predicted MDRD (S/P/Bld) [Vol rate/Area]mL/min/{1.73_m2}>=60[facility] HospitalGlucose [Mass/Vol]91 mg/pA91-015DltasdjoxSalem City Hospital Magnesium [Mass/Vol]1.9 mg/dL1.8-2.4FOhioHealth Dublin Methodist HospitalPotassium [Moles/Vol]3.9 mmol/L3.5-5.1FKettering Health Daytonodium [Moles/Vol] 138 mmol/G727-727CkgvtnmxmSalem City HospitalUrate [Mass/Vol]4.7 mg/dL 3.5-7.2FOhioHealth Dublin Methodist HospitalUrea nitrogen [Mass/Vol]18.0 mg/dL 7.0-18.0[facility] HospitalUrea nitrogen/Creatinine [Mass ratio] 17.0 mg/mgSalem City HospitalBilirubin Ql (U)NegativeNEGATIVE [facility] HospitalGlucose (U) [Mass/Vol]NegativeNEGATIVESalem City HospitalKetones Ql (U)NegativeNEGATIVESalem City HospitalpH (U)5.5 [pH]5.0-9.0[facility]by Memorial Hospitalpecific gravity (U) [Rel density]1.0201.005-1.025Sal[facility] City HospitalUrobilinogen Qn (U)0.2 {Brenda'U}/dL0.2-1.0[facility] HospitalLaboratory - Specimen informationon 91-77-1483Wgikurangv (U)CLEARCLEARFOhioHealth Dublin Methodist HospitalColor (U)YELLOWYELLOWSalem City HospitalLaboratory - Urinalysison 82-43-3443Ymhoscjun esterase Test strip Ql (U)NegativeNEGATIVE [facility] HospitalMucus Ql (Urine sed)NONE SEENNONE SEENSalem City HospitalNitrite Ql (U)NegativeNEGATIVESalem City HospitalProtein (U) [Mass/Vol]6.9 mg/dL<=11.9[facility] Protein Ql (U)NegativeNEG/TRACESalem City HospitalLeukocytes [#/volume] corrected for nucleated erythrocytes in Blood by Automated counon 02-20-0384VBH corrected for nucl RBC Auto (Bld) [#/Vol]3.2 10 3/uLLow4.0-11.0 [facility] HospitalMCH Auto (RBC) [Entitic mass]on 87-65-9133FKX (RBC) [Entitic mass]29.7 pg25.9-34.0[facility] HospitalMCHC Auto (RBC) [Mass/Vol]on 94-91-6217WRTB (RBC) [Mass/Vol]33.9 g/dL29.9-35.2FOhioHealth Dublin Methodist HospitalMCV Auto (RBC) [Entitic vol]on 42-81-9209LLR (RBC) [Entitic vol]87.5 fL80.0-94.0[facility] HospitalNo Panel Informationon 53-32-291984615798-Idnnbyy Vitamin D Total74.8 ng/mLSalem City HospitalComment on above:<20 ng/mL Vit D ghbvhyqjr42-<30 ng/mL Vit D -088 ng/mL Vit D sufficient>100 ng/mL Potential Toxicity Parathyroid Hormone (Intact)34 pg/fH54-71QaputogroSalem City Hospital Comment on above:Performed at: [facility] [id number] Director: Aleks Ferreira PhD, Phone: [phone] Level 2.9 mg/dL2.6-4.7FOhioHealth Dublin Methodist HospitalUrine BacteriaNONE SEEN #/HPF NONE [facility] HospitalUrine Occult BloodNegativeNEGATIVE [facility] HospitalUrine Random Mlcxoipnvg715.55 mg/dL20.00-300.00 [facility] HospitalUrine RBCNONE SEEN #/HPF0-2FOhioHealth Dublin Methodist HospitalUrine Squamous Epithelial CellsRARE #/LPFNONE/RARESalem City HospitalUrine WBCNONE SEEN #/HPFNONE [facility] HospitalPlatelet mean volume Auto (Bld) [Entitic vol]on 98-86-5474Ynsniuxo mean volume (Bld) [Entitic vol]9.5 fL9.5-13.5FOhioHealth Dublin Methodist Hospital Platelets Auto (Bld) [#/Vol]on 86-91-0759Xyscxouvv (Bld) [#/Vol]126 10 3/uLLow 150-450Sal[facility] City HospitalRBC Auto (Bld) [#/Vol]on 46-57-5162IRJ (Bld) [#/Vol]5.19 10 6/uL4.70-6.10Shelby Memorial Hospitalerum or plasma anion gap determinationon 04-48-8979Apgif gap [Moles/Vol]9.7 mmol/L [facility] HospitalUrine protein/creatinine ratioon 06-03-2024 Protein/Creatinine (U) [Ratio]0.06[facility] 16-98-9776OvjwbqkxhBgbyyxbdf From: Melissa Nash LPN To: PERLITAN - Clinical; Sent: 05/30/2024 15:23:45 EDT Show up: 04/28/2034 07:00:00 EDT Subject: colonoscopy recall Due Date/Time: 05/29/2034 07:00:00 EDT Reminder/Recall Patient due for screening colonoscopy 05/29/2034.[facility] HospitalAmbulatory Visit Summaryon 84-71-3504Zpbxymomhl Visit SummaryAmbulatory Visit Summary VIANEY LACEY :1960 Visit Date:05/07/2024 [...] Vianey SILVERMAN MD Where: [facility] [address] [address]- Medications What How Much When Instructions Unchanged apixaban (Eliquis 5 mg oral tablet) 1 Tablets By Mouth 2 times a day Contact prescribing physician if questions or concerns Unchanged ergocalciferol (Vitamin D) By Mouth Every week Contact prescribing physician if questionsor concerns Unchanged hydrALAZINE (hydrALAZINE 25 mg Tab) [...] you for choosing us for your care. [facility]$ Large Joint Injection: R knee on 25-76-5287Wicesknogzwandres Anthony MD 11/02/2023 11:03 AM $ Large [...] prepped with betadine and alcohol.). MANUALLY TRANSCRIBED RESULTSUNC Health Appalachianan Referralon 68-31-9897Clthbtvlk Foewcs[id number]#1.00TIFF Rey Cool [facility] HospitalTelephone Encounteron 22-65-6743Zusdxtvgarvjw Authentication Interface Message TextPatient has not been seen by this specialist in more than 1 year. Please contact patient to schedule office visit. Thank KarlosBethesda North Hospital SystemCNOVon 57-68-3146WJXSNxiuhm Visit (SPMESH) VIANEY LACEY ([id number]) 1960 M Date Time Provider Department 04/26/23 11:00 AM SHAWANDA HERNANDEZ [facility] During your visit today, we recorded the [...] Orthostatic Hypotension Vertigo Cva (Cerebral Vascular Accident) ([facility]) Dysarthria Add (Attention Deficit Disorder) Aphasia Eczema [...] Cervical disc disease CVA (cerebral vascular accident) ([facility]) due to head trauma Dysarthria Eczema [...] PALPATION: no palpable masses (more content not included)...NormalAcmc Healthcare SystemTESTOSTERONE, TOTALon 97-32-0100Fhqfdpigorci [Mass/Vol]347 ng/dL Ugoivu643-276Lyh [facility] SystemComment on above:Result Comment: Adult male reference interval is based on a population of healthy nonobese males (BMI <30) between 19 and 39 years old. Brad, et.al. JCEM 2017,102;8787-2063. PMID: [id number].Performed By: #### TESTTOT #### [facility] [address] [place] [address] Dr. Reuben MorrisonXR TSPINE 3 VIEWSon 81-18-3889RQ TSPINE 3 VIEWSEXAMINATION: XR LSPINE MIN 4 VIEWS, XR TSPINE [...] Electronically authenticated by: ALFREDITO LOAIZA Date: 2022-11-18 16:11NoSouthview Medical CenterTESTOSTERONE, TOTALon 81-02-8327Qapgssgclnyg [Mass/Vol]993 ng/dLCritically skxk550-335Zkq [facility] SystemComment on above:Result Comment: Adult male reference interval is based on a population of healthy nonobese males (BMI <30) between 19 and 39 years old. Brad, et.al. JCEM 2017,102;2011-5059. PMID: [id number].Performed By: #### TESTTOT #### [facility] [address] [place] [address] Dr. Reuben Prajapati AUTO DIFFon 56-47-1955HEJY #0.0 103/ulNormal0.0-0.1The [facility]c Healthcare SystemComment on above:Performed By: #### CBC #### [facility] [address] [place] [address] Dr. Reuben Lrsophils/100 WBC (Bld)0.4 %Normal0.2-2.0[facility] Comment on above:Performed By: #### CBC #### [facility] [address] [place] [address] Dr. Reuben Turner #0.1 103/ulNormal0.0-0.7The [facility]c Healthcare SystemComment on above: Performed By: #### CBC #### [facility] [address] [place] [address] Dr. Reuben Allenosinophils/100 WBC (Bld)1.3 %Normal0.9-7.0The [facility] Comment on above:Performed By: #### CBC #### [facility] [address] [place] [address] Dr. Reuben Allenrythrocyte distribution width (RBC) [Ratio]14.3 %Uniwbb92.0-15.0 The [facility] HospitalComment on above:Performed By: #### CBC #### [facility] [address] [address] [address] Reuben Banguraatoyvettet (Bld) [Volume fraction]48.9 %Kmwkdu07.0-54.0The [facility] Healthcare SystemComment on above:Performed By: #### CBC #### [facility] [address] [place] [address] Dr. Reuben MorrisonHemoglobin (Bld) [Mass/Vol]16.6 g/iUZsfhty16.0-18.0The [facility] Healthcare SystemComment on above:Performed By: #### CBC #### [facility] [address] [place] [address] Dr. Reuben Retana #0.01 10e3/ulNormal0.00-0.03The [facility] Healthcare SystemComment on above:Performed By: #### CBC #### [facility] [address] [place] [address] Dr. Reuben Retana %0.2 %Normal0.0-0.5The [facility] Healthcare SystemComment on above: Performed By: #### CBC #### [facility] [address] [place] [address] Dr. Reuben Amaya #1.1 103/ulCritically low1.2-3.8The [facility] Comment on above:Performed By: #### CBC #### [facility] [address] [place] [address] Dr. Reuben Rowlandhocytes/100 WBC (Bld)24.3 %Mpvkdg14.5-60.0The [facility] Healthcare SystemComment on above:Performed By: #### CBC #### [facility] [address] [place] [address] Dr. Reuben PlazaUAL DIFF REQNONormalThe [facility] Healthcare SystemComment on above: Performed By: #### CBC #### [facility] [address] [place] [address] Dr. Reuben Bhardwaj (RBC) [Entitic mass]29.5 zbUggaxp54.9-34.0The [facility] HospitalComment on above:Performed By: #### CBC #### [facility] [address] [place] [address] Dr. Reuben Motta (RBC) [Mass/Vol]33.9 g/fWYjfadd33.9-35.2The [facility] Healthcare SystemComment on above:Performed By: #### CBC #### [facility] [address] [place] [address] Dr. Reuben Motta (RBC) [Entitic vol]86.9 xHNvrbwx00.0-94.0The [facility] Healthcare SystemComment on above:Performed By: #### CBC #### [facility]c [facility] [address] [place] [address] Dr. Reuben Astudillo #0.5 103/ulNormal0.3-0.8The [facility] Healthcare SystemComment on above:Performed By: #### CBC #### [facility] [address] [place] [address] Dr. Reuben Blevinsocytes/100 WBC (Bld)9.6 %Normal1.7-12.0The [facility] Comment on above:Performed By: #### CBC #### [facility] [address] [place] [address] Dr. Reuben Meredith #3.0 103/ulNormal1.4-6.5The [facility] SystemComment on above:Performed By: #### CBC #### [facility] [address] [place] [address] Dr. Reuben Websterutrophils/100 WBC (Bld)64.2 %Bbjdxi12.0-75.0The [facility] SystemComment on above:Performed By: #### CBC #### [facility] [address] [place] [address] Dr. Reuben Sorianolet mean volume (Bld) [Entitic vol]9.7 fLNormal9.5-13.5The [facility] SystemComment on above:Performed By: #### CBC #### [facility] [address] [place] [address] Dr. Reuben MorrisonPLT130 103/ulCritically pae243-899Vhw [facility] SystemComment on above:Result Comment: plts. appear slightly decreasedPerformed By: #### CBC #### [facility] [address] [place] [address] Dr. Reuben MorrisonRBC5.63 106/ulNormal4.70-6.10The [facility] SystemComment on above:Performed By: #### CBC #### [facility] [address] [place] [address] Dr. Reuben MorrisonWBC4.7 103/ulNormal4.0-11.0The [facility] SystemComment on above: Performed By: #### CBC #### [facility] [address] [place] [address] Dr. Reuben MorrisonTESTOSTERONE, TOTALon 45-66-7470Hfeynjlpdhuq [Mass/Vol]404 ng/dL Gvzjwf009-956Bgs [facility] SystemComment on above:Result Comment: Adult male reference interval is based on a population of healthy nonobese males (BMI <30) between 19 and 39 years old. Brad et.al. JCEM 2017,102;5483-5347. PMID: [id number].Performed By: #### TESTTOT #### [facility] [address] [place] [address] Dr. Reuben KramerC AUTO DIFFon 42-78-9375BJMZ #0.0 103/ulNormal0.0-0.1The [facility] SystemComment on above:Performed By: #### TESTTOT #### [facility] [address] [place] [address] Dr. Reuben MorrisonBasophils/100 WBC (Bld)1.0 %Normal0.2-2.0The [facility] Comment on above:Performed By: #### TESTTOT #### [facility] [address] [place] [address] Dr. Alexis ChangEGlenda #0.1 103/ulNormal0.0-0.7The [facility] SystemComment on above: Performed By: #### TESTTOT #### [facility] [address] [place] [address] Dr. Reuben Allenosinophils/100 WBC (Bld)1.8 %Normal0.9-7.0The [facility] Comment on above:Performed By: #### TESTTOT #### [facility] [address] [place] [address] Dr. Reuben Allenrythrocyte distribution width (RBC) [Ratio]14.0 %Xwbsod49.0-15.0 The [facility] SystemComment on above:Performed By: #### TESTTOT #### [facility] [address] [place] [address] Dr. Reuben MorrisonHematocrit (Bld) [Volume fraction]47.3 %Suzibz76.0-54.0The [facility] SystemComment on above:Performed By: #### TESTTOT #### [facility] [address] [place] [address] Dr. Reuben MorrisonHemoglobin (Bld) [Mass/Vol]16.2 g/hSQptprv88.0-18.0The [facility] SystemComment on above:Performed By: #### TESTTOT #### [facility] [address] [place] [address] Dr. Reuben Retana #0.01 10e3/ulNormal0.00-0.03The [facility] SystemComment on above:Performed By: #### TESTTOT #### [facility] [address] [place] [address] Dr. Reuben Retana %0.3 %Normal0.0-0.5The [facility] SystemComment on above: Performed By: #### TESTTOT #### [facility] [address] [place] [address] Dr. Reuben RowlandH #1.1 103/ulCritically low1.2-3.8The [facility] Comment on above:Performed By: #### TESTTOT #### [facility] [address] [place] [address] Dr. Reuben Jean Baptistemphocytes/100 WBC (Bld)26.6 %Swfqxx28.5-60.0The [facility] SystemComment on above:Performed By: #### TESTTOT #### [facility] [address] [place] [address] Dr. Reuben Santizo DIFF REQNONormalThe [facility] SystemComment on above: Performed By: #### TESTTOT #### [facility] [address] [place] [address] Dr. Reuben Motta (RBC) [Entitic mass]29.5 brXxphbd34.9-34.0The [facility] SystemComment on above:Performed By: #### TESTTOT #### [facility] [address] [place] [address] Dr. Reuben Motta (RBC) [Mass/Vol]34.2 g/tHAxiike74.9-35.2The [facility] SystemComment on above:Performed By: #### TESTTOT #### [facility] [address] [place] [address] Dr. Reuben Motta (RBC) [Entitic vol]86.2 eJZmfbam57.0-94.0The [facility] SystemComment on above:Performed By: #### TESTTOT #### [facility] [address] [place] [address] Dr. Reuben Astudillo #0.4 103/ulNormal0.3-0.8The [facility] SystemComment on above:Performed By: #### TESTTOT #### [facility] [address] [place] [address] Dr. Reuben Blevinsocytes/100 WBC (Bld)9.0 %Normal1.7-12.0The [facility] Comment on above:Performed By: #### TESTTOT #### [facility] [address] [place] [address] Dr. Reuben Meredith #2.5 103/ulNormal1.4-6.5The [facility] SystemComment on above:Performed By: #### TESTTOT #### [facility] [address] [place] [address] Dr. Yilan ChangNeutrophils/100 WBC (Bld)61.3 %Znkrzo48.0-75.0The [facility] SystemComment on above:Performed By: #### TESTTOT #### [facility] [address] [place] [address] Dr. Reuben MorrisonPlatelet mean volume (Bld) [Entitic vol]9.6 fLNormal9.5-13.5The [facility] SystemComment on above:Performed By: #### TESTTOT #### [facility] [address] [place] [address] Dr. Reuben MorrisonPLT128 103/ulCritically aok781-298Zrr [facility] SystemCommackinac [facility] on above:Performed By: #### TESTTOT #### [facility] [address] [place] [address] Dr. Reuben MorrisonRBC5.49 106/ulNormal4.70-6.10The [facility] SystemComment on above:Performed By: #### TESTTOT #### [facility] [address] [place] [address] Dr. Reuben MorrisonWBC4.0 103/ulNormal4.0-11.0The [facility] SystemComment on above: Performed By: #### TESTTOT #### [facility] [address] [place] [address] Dr. Reuben MorrisonINSULINon 02-28-5987Xaqjmrd8.3 uIU/mLNormal2.6-24.9The [facility] SystemComment on above:Performed By: #### TESTTOT #### [facility] [address] [place] [address] Dr. Reuben MorrisonTESTOSTERONE, TOTALon 85-45-3321Oxcingnttbeb [Mass/Vol]ng/dL Critically ubmi687-373Vgh [facility] on above:Result Comment: Adult male reference interval is based on a population of healthy nonobese males (BMI <30) between 19 and 39 years old. stephania Salinas.al. JCEM 2017,102;2842-0974. PMID: [id number].Performed By: #### TESTTOT #### [facility] [address] [address] [address] Reuben Prajapati AUTO DIFFon 00-95-3398OEEV #0.1 103/ulNormal0.0-0.1The [facility] SystemComment on above:Performed By: #### CBC #### [facility] [address] [address] [address] Reuben MorrisonBasophils/100 WBC (Bld)1.4 %Normal0.2-2.0The [facility] Comment on above:Performed By: #### CBC #### [facility] [address] [place] [address] Dr. Reuben Turner #0.1 103/ulNormal0.0-0.7The [facility] SystemComment on above: Performed By: #### CBC #### [facility] [address] [place] [address] Dr. Reuben Allenosinophils/100 WBC (Bld)1.4 %Normal0.9-7.0The [facility] Comment on above:Performed By: #### CBC #### [facility] [address] [place] [address] Dr. Reuben Allenrythrocyte distribution width (RBC) [Ratio]14.7 %Mcdtnk14.0-15.0 The [facility] SystemComment on above:Performed By: #### CBC #### [facility] [address] [place] [address] Dr. Reuben MorrisonHematocrit (Bld) [Volume fraction]49.8 %Glfgpx47.0-54.0The [facility] SystemComment on above:Performed By: #### CBC #### [facility] [address] [place] [address] Dr. Reuben MorrisonHemoglobin (Bld) [Mass/Vol]16.4 g/dBIxsjhw52.0-18.0The [facility] SystemComment on above:Performed By: #### CBC #### [facility] [address] [place] [address] Dr. Reuben Retana #0.01 10e3/ulNormal0.00-0.03The [facility] SystemComment on above:Performed By: #### CBC #### [facility] [address] [address] [address] Reuben Retana %0.3 %Normal0.0-0.5The [facility] SystemComment on above: Performed By: #### CBC #### [facility] [address] [address] [address] Reuben Amaya #0.9 103/ulCritically low1.2-3.8The [facility] Comment on above:Performed By: #### CBC #### [facility] [address] [place] [address] Dr. Reuben Rowlandhocytes/100 WBC (Bld)24.7 %Kynilo75.5-60.0The [facility] SystemComment on above:Performed By: #### CBC #### [facility] [address] [place] [address] Dr. Reuben Santizo DIFF REQNONormalThe [facility] SystemComment on above: Performed By: #### CBC #### [facility] [address] [place] [address] Dr. Reuben Bhardwaj (RBC) [Entitic mass]28.9 ltEwzaau50.9-34.0The [facility] SystemComment on above:Performed By: #### CBC #### [facility] [address] [place] [address] Dr. Reuben Motta (RBC) [Mass/Vol]32.9 g/eUPabiqz67.9-35.2The [facility] SystemComment on above:Performed By: #### CBC #### [facility] [address] [place] [address] Dr. Reuben Motta (RBC) [Entitic vol]87.7 yEKsdvmu99.0-94.0The [facility] SystemComment on above:Performed By: #### CBC #### [facility] [address] [place] [address] Dr. Reuben Astudillo #0.4 103/ulNormal0.3-0.8The [facility] SystemComment on above:Performed By: #### CBC #### [facility] [address] [place] [address] Dr. Reuben Blevinsocytes/100 WBC (Bld)9.5 %Normal1.7-12.0The [facility] Comment on above:Performed By: #### CBC #### [facility] [address] [place] [address] Dr. Reuben Meredith #2.3 103/ulNormal1.4-6.5The [facility] SystemComment on above:Performed By: #### CBC #### [facility] [address] [place] [address] Dr. Reuben Websterutrophils/100 WBC (Bld)62.7 %Amolyu66.0-75.0The [facility] SystemComment on above:Performed By: #### CBC #### [facility] [address] [place] [address] Dr. Reuben Sorianolet mean volume (Bld) [Entitic vol]9.8 fLNormal9.5-13.5The [facility] SystemComment on above:Performed By: #### CBC #### [facility] [address] [place] [address] Dr. Reuben ClarkT149 103/ulCritically ydh759-671Mjy [facility] SystemComment on above:Performed By: #### CBC #### [facility] [address] [place] [address] Dr. Reuben MorrisonRBC5.68 106/ulNormal4.70-6.10The [facility] SystemComment on above:Performed By: #### CBC #### [facility] [address] [place] [address] Dr. Reuben MorrisonWBC3.7 103/ulCritically low4.0-11.0The [facility] SystemComment on above:Performed By: #### CBC #### [facility] [address] [place] [address] Dr. Reuben Arce THYROXINE INDEX T7on 78-01-2433TKD3.56Mddxek3.30-4.50The [facility] SystemComment on above:Performed By: #### CMP, T7, TSH, LIPID #### [facility] [address] [place] [address] Dr. Reuben MorrisonT3U39.0 %Qkknch29.0-40.0The [facility] SystemComment on above: Performed By: #### CMP, T7, TSH, LIPID #### [facility] [address] [place] [address] Dr. Reuben MorrisonT4 [Mass/Vol]6.40 ug/dLNormal4.50-12.10The [facility] Comment on above:Performed By: #### CMP, T7, TSH, LIPID #### [facility] [address] [place] [address] Dr. Reuben MorrisonGLYCOHEMOGLOBIN A1Con 84-66-8828DHH RECOMMENDATIONSEE BELOWNormal The [facility] SystemComment on above:Result Comment: ADA RECOMMENDED LIMIT 4.0 - 6.0 ADA THERAPEUTIC TARGET < 7.0 ACTION SUGGESTED > 7.0Performed By: #### TESTTOT #### [facility] [address] [place] [address] Dr. Reuben MorrisonGlucose [Mass/Vol]105 mg/dLNormalThWexner Medical CenterComment on above:Performed By: #### TESTTOT #### [facility] [address] [place] [address] Dr. Reuben MorrisonHbA1c (Bld) [Mass fraction]5.3 %Normal4.5-6.2The [facility] SystemComment on above:Performed By: #### TESTTOT #### [facility] [address] [place] [address] Dr. Reuben Boateng 92-37-7313Fdhz [Mass/Vol]100.0 ug/uPOrsvcv61.0-175.0The [facility] SystemComment on above:Performed By: #### IRON, PSASC, VITB12, VITAD #### [facility] [address] [place] [address] Dr. Reuben MorrisonLIPID PROFILEon 28-85-6100WTFR-HDL RATIO NORMSAdena Fayette Medical CenterComment on above:Result Comment: 3.3 - 4.4 LOW RISK 4.4 - 7.1 AVERAGE RISK 7.1 - 11.0 MODERATE RISK >11.0 HIGH RISKPerformed By: #### CMP, T7, TSH, LIPID #### [facility] [address] [address] [address] Reuben MorrisonCholesterol [Mass/Vol]157 mg/dLNormal<=200[facility] Comment on above:Performed By: #### CMP, T7, TSH, LIPID #### [facility] [address] [place] [address] Dr. Reuben Sandovalesterol in HDL [Mass/Vol]48 mg/kXZtwjpp98-63UctFirelands Regional Medical Center South CampusComment on above:Performed By: #### CMP, T7, TSH, LIPID #### [facility] [address] [place] [address] Dr. Reuben Sandovalesterol in LDL [Mass/Vol]96.0 mg/dLCleveland Clinic Mercy HospitalComment on above:Performed By: #### CMP, T7, TSH, LIPID #### [facility] [address] [place] [address] Dr. Reuben Brito.total/Cholesterol in HDL [Mass ratio]3.3 {ratio} NormalFirelands Regional Medical Center South CampusComment on above:Performed By: #### CMP, T7, TSH, LIPID #### [facility] [address] [place] [address] Dr. Reuben Robertson NORMAL> or = 60 mg/dl - LOW CARDIOVASCULAR RISK <40 mg/dl - HIGH CARDIOVASCULAR RISKCleveland Clinic Mercy HospitalComment on above:Performed By: #### CMP, T7, TSH, LIPID #### [facility] [address] [place] [address] Dr. Reuben Novoa CALC NORMALSEE [facility] HospitalComment on above:Result Comment: <100 mg/dl OPTIMAL 100 - 129 mg/dl NEAR OR ABOVE OPTIMAL 130 - 159 mg/dl BORDERLINE HIGH 160 - 189 mg/dl HIGH >190 mg/dl VERY HIGH Performed By: #### CMP, T7, TSH, LIPID #### [facility] [address] [address] [address] Reuben MorrisonTriglyceride [Mass/Vol]65 mg/dLNormal<=150The [facility] Comment on above:Performed By: #### CMP, T7, TSH, LIPID #### [facility] [address] [address] [address] Reuben MorrisonVLDL CALC13.0 mg/dLNormalThe [facility] SystemComment on above: Performed By: #### CMP, T7, TSH, LIPID #### [facility] [address] [place] [address] Dr. Reuben MorrisonPRODante 14(COMP METB)on 29-48-2712Trcakod [Mass/Vol]3.7 g/dLNormal 3.4-5.0The [facility] SystemComment on above:Performed By: #### CMP, T7, TSH, LIPID #### [facility] [address] [place] [address] Dr. Reuben MorrisonAlbumin/Globulin [Mass ratio]1.3 {ratio}NormalThe [facility] SystemComment on above:Performed By: #### CMP, T7, TSH, LIPID #### [facility] [address] [place] [address] Dr. Reuben Keith [Catalytic activity/Vol]53 U/GGyxcdm64-792Bdy [facility] SystemComment on above:Performed By: #### CMP, T7, TSH, LIPID #### [facility] [address] [place] [address] Dr. Reuben Goode [Catalytic activity/Vol]37 U/OYyiwgm05-84Xrd [facility] SystemComment on above:Performed By: #### CMP, T7, TSH, LIPID #### [facility] [address] [place] [address] Dr. Reuben Woods gap [Moles/Vol]11.0 mmol/LNormalThe [facility] Comment on above:Performed By: #### CMP, T7, TSH, LIPID #### [facility] [address] [address] [address] Reuben MorrisonAST [Catalytic activity/Vol]28 U/SYgfvdu23-59Mhw [facility] SystemComment on above:Performed By: #### CMP, T7, TSH, LIPID #### [facility] [address] [address] [address] Reuben MorrisonBilirubin [Mass/Vol]0.9 mg/dLNormal0.2-1.0The [facility] Comment on above:Performed By: #### CMP, T7, TSH, LIPID #### [facility] [address] [place] [address] Dr. Reuben MorrisonCalcium [Mass/Vol]8.9 mg/dLNormal8.5-10.1The [facility] Comment on above:Performed By: #### CMP, T7, TSH, LIPID #### [facility] [address] [place] [address] Dr. Reuben MorrisonChloride [Moles/Vol]106 mmol/QBdvdns40-598Dth [facility] Comment on above:Performed By: #### CMP, T7, TSH, LIPID #### [facility] [address] [place] [address] Dr. Reuben MorrisonCO2 [Moles/Vol]28.2 mmol/CCpwvxj85.0-32.0The [facility] Comment on above:Performed By: #### CMP, T7, TSH, LIPID #### [facility] [address] [place] [address] Dr. Reuben MorrisonCreatinine [Mass/Vol]1.55 mg/dLCritically high0.70-1.30The [facility] SystemComment on above:Performed By: #### CMP, T7, TSH, LIPID #### [facility] [address] [place] [address] Dr. Reuben Rodriguez-AF SDYQHZXJ88 mL/min/1.82q9Fxezdczyqo low>=60The [facility] SystemComment on above:Performed By: #### CMP, T7, TSH, LIPID #### [facility] [address] [place] [address] Dr. Yilan ChangEGFR-NON AF JZFCXMJN72 mL/min/1.00m7Jracrhnvfm low>=60The [facility] SystemComment on above:Performed By: #### CMP, T7, TSH, LIPID #### [facility] [address] [address] [address] Reuben MorrisonGlobulin (S) [Mass/Vol]2.9 g/dLNormMain Campus Medical CenterComment on above:Performed By: #### CMP, T7, TSH, LIPID #### [facility] [address] [address] [address] Reuben MorrisonGlucose [Mass/Vol]88 mg/gVAaahsg46-626Shr [facility] Comment on above:Performed By: #### CMP, T7, TSH, LIPID #### [facility] [address] [place] [address] Dr. Reuben MorrisonPotassium [Moles/Vol]4.2 mmol/LNormal3.5-5.1The [facility] Comment on above:Performed By: #### CMP, T7, TSH, LIPID #### [facility] [address] [address] [address] Reuben MorrisonProtein [Mass/Vol]6.6 g/dLNormal6.4-8.2The [facility] Comment on above:Performed By: #### CMP, T7, TSH, LIPID #### [facility] [address] [place] [address] Dr. Reuben MorrisonSodium [Moles/Vol]141 mmol/WTojqup157-818Fae [facility] Comment on above:Performed By: #### CMP, T7, TSH, LIPID #### [facility] [address] [place] [address] Dr. Reuben MorrisonUrea nitrogen [Mass/Vol]13.0 mg/dLNormal7.0-18.0The [facility] SystemComment on above:Performed By: #### CMP, T7, TSH, LIPID #### [facility] [address] [address] [address] Reuben MorrisonUrea nitrogen/Creatinine [Mass ratio]8.4 mg/mgNoSouthview Medical CenterComment on above:Performed By: #### CMP, T7, TSH, LIPID #### [facility] [address] [place] [address] Dr. Reuben PalomoHochristina 48-46-7099AXY3.091 uIU/mLCritically low0.358-3.740[facility] on above:Performed By: #### CMP, T7, TSH, LIPID #### [facility] [address] [place] [address] Dr. Reuben Jernigan [facility] on above: Result Comment: <0.34 UIU/ml HYPERTHYROID 0.34-5.60 UIU/ml EUTHYROID >5.60 UIU/ml HYPOTHYROIDPerformed By: #### CMP, T7, TSH, LIPID #### [facility] [address] [place] [address] Dr. Reuben MorrisonVITAMIN B12on 33-46-5299Tgmapibdu (Vitamin B12) [Mass/Vol]3126.0 pg/mLCritically kkyv242.0-986.0[facility] on above:Performed By: #### TESTTOT #### [facility] [address] [place] [address] Dr. Reuben MorrisonVITAMIN D 25 OHon 68-61-8696ZVJ D 25-OH90.4 ng/mLNormalC[facility] Clinic [facility] on above:Performed By: #### TESTTOT #### [facility] [address] [place] [address] Dr. Reuben Quinones D RANGESSEE [facility] HospitalCommackinac stra[facility] hospital on above: Result Comment: <20 ng/mL Vit D deficient 20 - <30 ng/mL Vit D insufficient 30 - 100 ng/mL Vit D sufficient >100 ng/mL Potential ToxicityPerformed By: #### TESTTOT #### [facility] [address] [place] [address] Dr. Reuben MorrisonXR SHOULDER RICHARD 2V or >on 46-11-2226YF SHOULDER RICHARD 2V or >EXAM: XR SHOULDER RICHARD 2V or > HISTORY: [...] Electronically authenticated by: ERIN HANSEN Date: 2022-03-07 16:26[facility] Vital Signs Date TimeVital SignValuePerforming MpmoaskcqFjbnrfrl77-69-9660 16:35-0400Body kleuxu581.91 cmIlda Peck MD Work Phone: [phone]10-20-2025 16:35-0400 Body mass index (BMI) [Ratio]28.6 kg/q3QkzcyvcIlda Peck MD Work Phone: [phone]10-20-2025 16:35-0400 Body yjygud17.64 kgIlda Peck MD Work Phone: [phone]10-20-2025 16:35-0400 Diastolic blood mm[Hg]Ilda Peck MD Work Phone: [phone]10-20-2025 16:35-0400 Heart rate69 /minDjessika Peck MD Work Phone: [phone]10-20-2025 16:35-0400 SaO2% (BldA) [Mass fraction]96 %Ilda Peck MD Work Phone: [phone]10-20-2025 16:35-0400 Systolic blood frpezxrx204 mm[Hg]Ilda Peck MD Work Phone: [phone]09-17-2025 10:43-0400 Body ybtukf003.9 Don Dawson MD Work Phone: [facility] SystemPrcxigofsk39-01-1572 10:43-0400Body mass index (BMI) [Ratio]29.73 kg/w6ZcsyvRomán Dawson MD Work Phone: [phone] [place], [place] [address]Ikdqpwmtcr56-73-9700 10:43-0400Body mmlidc34.82 kgRomán Dawson MD Work Phone: [phone] [place], [place] [address]Ulckaoelwb30-32-6909 10:43-0400Diastolic blood otzwavkv25 mm[Hg]Román Dawson MD Work Phone: [phone] [place], [place] [address]Depbtbwgwp93-63-8213 10:43-0400Heart rate49 /min Román Dawson MD Work Phone: [phone] [place], [place] [address]Xlbwjpqcfd54-07-0663 10:43-0400Respiratory rate16 /minRomán Dawson MD Work Phone: [phone])[facility] [place], [place] [address]Fzuosyqxpb70-15-3697 10:43-5179JpW9% (BldA) [Mass fraction]98 %Román Dawson MD Work Phone: [phone] [place], [place] [address]Qiffacxstw89-86-5815 10:43-0400Systolic blood uuvsqysc884 mm[Hg]Román Dawson MD Work Phone: [phone] [place], [place] [address]Lfuwcoicdl20-34-3490 11:21-0400Body itvcrz425.91 cmIlda Peck MD Work Phone: [facility]08-19-2025 11:21-0400 Body mass index (BMI) [Ratio]29 kg/f8HwanwonIlda Peck MD Work Phone: [facility]08-19-2025 11:21-0400 Body novhtz80 kgIlda Peck MD Work Phone: [facility]08-19-2025 11:21-0400 Diastolic blood oxfaomup92 mm[Hg]Ilda Peck MD Work Phone: [facility]08-19-2025 11:21-0400 Systolic blood mm[Hg]Ilda Peck MD Work Phone: [facility]05-27-2025 10:20-0400 Body uynjca272.2 Karlene Anthony MD Work Phone: [facility]05-27-2025 10:20-0400Body mass index (BMI) [Ratio]29.19 kg/s6JifwtktsifeOsmin Anthony MD Work Phone: [facility]05-27-2025 10:20-0400Body vkjivd51.54 kgOsmin Anthony MD Work Phone: [facility]01-27-2025 10:46-0500Body ellhcjihgms10.52 [degF]Vianey SILVERMAN [facility]01-27-2025 10:46-0500Diastolic blood naqppmlx16 mm[Hg]Vianey SILVERMAN [facility]01-27-2025 10:46-0500Systolic blood mtnyrsbv966 mm[Hg]Vianey SILVERMAN [facility]01-14-2025 14:40-0500Body celhdm042.2 Karlene Anthony MD Work Phone: [facility]01-14-2025 14:40-0500Body mass index (BMI) [Ratio]29.13 kg/o2XbcoespzrpmOsmin Anthony MD Work Phone: [facility]01-14-2025 14:40-0500Body .37 Dian Anthony MD Work Phone: [facility]11-19-2024 13:46-0500Blood Pressure Kelly MEJIA [phone]-IeopgSelect [facility]ty [facility]11-19-2024 13:46-0500Diastolic blood nititnie12 mm[Hg]Shawanda MEJIA [phone]-CjujhSelect Medical Specialty Hospital [facility]11-19-2024 13:46-0500Heart rate72 /minMichael NILL [phone]-YtqspSelect Medical [facility]ty [facility]11-19-2024 13:46-0500Respiratory rate16 /minMichael NILL [phone]-HemtkSelect Medical Specialty [facility]11-19-2024 13:46-0500Systolic blood hkgpjgku964 mm[Hg]Shawanda NILL [phone]-VjqmpSelect Medical Specialty Hospital [facility]10-23-2024 14:59-0400Body mqduum277.9 cmNicole Russel DO Work Phone: noSaint [facility] HospitalNteogasrzr92-55-6096 14:59-0400Body mass index (BMI) [Ratio]30.02 kg/h6Dtbnel Russel DO Work Phone: [facility] SystemOkofxjytds57-66-2449 14:59-0400Body zdusrg61.64 kgNicole Russel DO Work Phone: noSaint [facility] HospitalJbpyasnhul73-59-5478 14:59-0400Diastolic blood ihqkqtkf61 mm[Hg]Sage Russel DO Work Phone: noSaint [facility] HospitalWtekljoaai34-75-8536 14:59-0400Heart rate68 /min Sage Russel DO Work Phone: noSaint [facility] HospitalUsrloxogbk64-99-0718 14:59-7290LeC4% (BldA) [Mass fraction]98 %Sage Russel DO Work Phone: noSaint [facility] HospitalUaofzindpk50-31-8704 14:59-0400Systolic blood dyfbqaxg314 mm[Hg]Sage Russel DO Work Phone: noSaint [facility] HospitalVwmgwjoamo22-54-4013 11:04-0400Body .9 Don Dawson MD Work Phone: noSaint [facility] HospitalHusfjigoob57-56-4965 11:04-0400Body mass index (BMI) [Ratio]29.89 kg/z5NxcdxRomán Dawson MD Work Phone: [facility] SystemRtxvsmorrh09-55-8800 11:04-0400Body miylmb85.28 kgRomán Dawson MD Work Phone: [facility] SystemMqcchuugia73-73-2291 11:04-0400Diastolic blood lzeigttq18 mm[Hg]Román Dawson MD Work Phone: [facility] SystemFgobrcguew94-55-8265 11:04-0400Heart rate68 /min Román Dawson MD Work Phone: [facility] SystemLlzubizaqr38-09-6556 11:04-0400Respiratory rate16 /minRomán Dawson MD Work Phone: [facility] SystemKkjwgswxsd11-73-9606 11:04-0400Systolic blood hubsaaoj510 mm[Hg]Román Dawson MD Work Phone: [facility] SystemHovurlevoy20-12-6640 11:20-0400Body zireft389.2 Karlene Anthony MD Work Phone: [facility]09-17-2024 11:20-0400Body mass index (BMI) [Ratio]28.7 kg/e6MuowoyzbicuOsmin Anthony MD Work Phone: [facility]09-17-2024 11:20-0400Body .12 kgOsmin Anthony MD Work Phone: [facility]09-12-2024 13:55-0400Body uvkskj078.91 cmMD Ilda Peck Work Phone: [phone] [place], [place] 8565009-12-2024 13:55-0400 Body mass index (BMI) [Ratio]29.4 kg/m2MD Ilda Peck Work Phone: [phone] [place], [place] 8565009-12-2024 13:55-0400 Body leclwrnsuiv18.8 [degF]MD Ilda Peck Work Phone: [phone] [place], [place] 8565009-12-2024 13:55-0400 Body hyeuoz94.97 kgMD Ilda Henrikluz maria Work Phone: [facility]09-12-2024 13:55-0400 Diastolic blood abrwjovx60 mm[Hg]MD Ilda Peck Work Phone: [facility]09-12-2024 13:55-0400 Heart rate61 /min Ilda Henrikluz maria Work Phone: [facility]09-12-2024 13:55-0400 Respiratory rate16 /minMD Ilda Peck Work Phone: [facility]09-12-2024 13:55-0400 SaO2% (BldA) [Mass fraction]98 %MD Ilda Peck Work Phone: [facility]09-12-2024 13:55-0400 Systolic blood prlmyzwb865 mm[Hg]MD Ilda Peck Work Phone: [facility]08-13-2024 15:01-0400 Blood Pressure LocationMichael NILL [phone]-GrzzfSelect Medical Specialty Hospital [facility]08-13-2024 15:01-0400Diastolic blood tfjradns63 mm[Hg]Shawanda NILL [phone]-VfpocSelect Medical Specialty Hospital - [facility]ull08-13-2024 15:01-0400Heart rate68 /minMichael NILL [phone]-GpdscSelect Medical Specialty Hospital - [facility]ull08-13-2024 15:01-0400Respiratory rate16 /minMichael NILL [phone]-PmcoqSelect Medical Specialty Hospital [facility]08-13-2024 15:01-0400Systolic blood vljjxurp624 mm[Hg]Shawanda NILL [phone]-OmzuuSelect Medical Specialty Hospital - [facility]ull02-08-2024 10:48-0500Body .2 Karlene Anthony MD Work Phone: [facility]02-08-2024 10:48-0500Body mass index (BMI) [Ratio]29.29 kg/x3CygmmucservOsmin Anthony MD Work Phone: [facility]02-08-2024 10:48-0500Body kanbfj52.82 kgChsaulo Anthony MD Work Phone: [facility]01-22-2024 13:03-0500Blood Pressure LocationVianey SILVERMAN [facility]01-22-2024 13:03-0500Diastolic blood ydhqvmlq67 mm[Hg]Vianey SILVERMAN [facility]01-22-2024 13:03-0500Heart rate75 /minPaFIELDS CH[place] [facility]01-22-2024 13:03-0500Respiratory rate16 /minPaFIELDS [place] [facility]01-22-2024 13:03-0500Systolic blood qtbnxfeb675 mm[Hg]Vianey SILVERMAN [facility]11-02-2023 10:00-0400Body idxvhf218.91 cmAbdul Antonia Other [employer] Other 11-02-2023 10:00-0400Body mass index (BMI) [Ratio] 28.55 kg/c2Rkfkp Antonia Other [employer] Other 11-02-2023 10:00-0400Body rrkeviczkgr37.2 [degF]Sandoval Antonia Other [employer] Other 11-02-2023 10:00-0400Body xcrahm52.47 kgAbdul Antonia Other nort [employer] Other 11-02-2023 10:00-0400Diastolic blood vodttgln93 mm[Hg] Sandoval Antonia Other [facility] Other 11-02-2023 10:00-0400Respiratory rate16 /minAbdul Antonia Other [facility] Other 11-02-2023 10:00-4280AhM5% (BldA) [Mass fraction]94 % Sandoval Antonia Other [facility] Other 11-02-2023 10:00-0400Systolic blood txxtanvo483 mm[Hg] Sandoval Antonia Other [facility] Other 09-18-2023 12:25-0400Blood Pressure LocationPatrick Glycode [facility]09-18-2023 12:25-0400Diastolic blood nemvmfrv75 mm[Hg]Vianey SILVERMAN [facility]09-18-2023 12:25-0400Heart rate68 /minPatrick Glycode [facility]09-18-2023 12:25-0400Respiratory rate16 /minPatrick SILVERMAN [facility]09-18-2023 12:25-0400Systolic blood qfmnosgr847 mm[Hg]Vianey SILVERMAN [facility]08-02-2023 11:15-0400Body quagag275.4 cmShawanda LUCEROC Work Phone: [phone] Bethesda Butler HospitalFzartu03-54-8789 11:15-0400Body temperature 98.01 [degF]Shawanda Hernandez PA-C Work Phone: [phone] hospitaland Jgtmnc25-81-3671 11:15-0400Body tjjyll81.95 kgMicelier OCHOA-C Work Phone: [phone] hospitaland Aspxpc63-48-1576 11:15-0400Diastolic blood towlxnmu57 mm[Hg]Shawanda Hernandez PA-C Work Phone: [phone] hospitaland Ntmyry35-26-5800 11:15-0400Heart rate74 /min Shawanda Hernandez PA-C Work Phone: [phone] hospitaland Xozrad27-22-1429 11:15-3215XcK2% (BldA) [Mass fraction]97 %Shawanda Hernandez PA-C Work Phone: [phone] Bethesda Butler HospitalSnwvwo81-96-6085 11:15-0400Systolic blood jmxnbayo017 mm[Hg]Shawanda Hernandez PA-C Work Phone: [phone] Bethesda Butler HospitalQafxmj70-40-1258 08:12-0500Blood Pressure LocationPatrick HERRERA [facility]03-10-2023 08:12-0500Diastolic blood txgagezy78 mm[Hg]Vianey SILVERMAN [facility]03-10-2023 08:12-0500Heart rate70 /minPatrick HERRERA [facility]03-10-2023 08:12-0500Respiratory rate16 /minPatricaric SILVERMAN [facility]03-10-2023 08:12-0500Systolic blood fqkveqvi895 mm[Hg]Vianey HERRERA [facility] Ajojfpbs49-25-5618 14:11-0400Body mass index (BMI) [Ratio]28.98 kg/m2Jovita Virk MD Work Phone: [phone] 14:11-0400Body qdvghsjiqpz60.01 [degF]Jovita Virk MD Work Phone: [phone] 14:11-0400Body aznsjh56.92 kg Jovita Virk MD Work Phone: [phone] 14:11-0400Diastolic blood jbzfudpn70 mm[Hg]Jovita Virk MD Work Phone: [phone] 14:11-0400Heart rate98 /minJovita Virk MD Work Phone: [phone] 14:11-0400Respiratory rate14 /Jaye Virk MD Work Phone: [phone] 14:11-1451KhD3% (BldA) [Mass fraction]100 %Jovita Virk MD Work Phone: [phone] 14:11-0400Systolic blood ypgmkxzx829 mm[Hg]Jovita Virk MD Work Phone: [facility] Encounters Encounter DateEncounter TypeCare ProviderFacilityStart: 53-31-3928jypnlzyfgz Vianey SILVERMANFacility:EU evueStart: 07-14-2025 End: 31-97-3233dkywrjyhtjOaslhik M Hoy MD Work Phone: -[facility] CenterueStart: 07-14-2025 End: 46-11-7640Jzbtbwg encounter procedureNicjodi Goode DO-[facility] [place] Work Phone: Start: 06-11-2025 End: 90-83-2914Mzffflromi Dawson MD Work Phone: noms Ra EndocrinologyStart: 06-11-2025 End: 41-58-7549Hihgojabner Dawson MD Work Phone: n[facility] Ra EndocrinologyStart: 06-11-2025 End: 44-52-9429Tuftlzvke encounterChsaulo Anthony MD Work Phone: [facility] SurgeryStart: 06-11-2025 End: 28-75-7252chnwhuakwkJOVEH F SABBAGHNot AvailableStart: 06-11-2025 End: 21-27-7777Kbmuja outpatient visit 25 minutesRomán Dawson MD Work Phone: noms Ra EndocrinologyComment on above: Sarah's disease (Primary Dx)Start: 05-24-2025 End: 63-29-2901Ekgcyw encounterJovita Virk MD Work Phone: [facility]HealthStart: 05-13-2025 End: 80-69-6349Uhabcyr encounter procedureRobert Foster Pompa MD-[facility] Orthopedics [place] Work Phone: Start: 05-13-2025 End: 23-93-7250hzkvvgsultKgkjisb M Hoy MD Work Phone: [facility] Work Phone: Start: 02-18-2025 End: 93-88-9873gharwaynabQEKLTOWDIFV Dawn SALDAÑACHProMedica Parkwood Hospitaltart: 02-18-2025 End: 64-70-2571Gyfisf outpatient visit 25 minutesOsmin Anthony MD Work Phone: [facility] Orthopedic SurgeryComment on above:Primary osteoarthritis of right knee (Primary Dx)Start: 01-21-2025 End: 32-82-7960dywnypaieaTEKE [facility] Glenbeightart: 10-21-2024 End: 22-02-4045nkuxhrcvouOyvcfgd R WATERSFacility:EU BellueStart: 10-21-2024 End: 51-84-4983Ebulszv encounter procedureVianey SILVERMAN [facility] [place] start: 10-08-2024 End: 39-15-4865sufxohrshpWQKNRQMRFFT A FOETISCHProMedica [facility] HospitalStart: 10-08-2024 End: 40-60-0951Cofxihs encounter procedureChristopher A Raj PRIETO Work Phone: [facility] SurgeryComment on above:Primary osteoarthritis of right knee (Primary Dx)Start: 08-13-2024 End: 31-59-2655iyfrxedkuxAlmcvix R NILLFacility:GS tart: 08-13-2024 End: 87-55-0996Xupnkcm encounter procedureMichael R NILL [phone]-Xsxbk General Surgery [place] Start: 07-17-2024 End: 99-59-5810desusvslkpDOWRIC DANNERNot AvailableStart: 07-17-2024 End: 90-40-3530Owjxjv outpatient visit 25 minutesNicole Russel DO Work Phone: noMS [place] STATE R[address]TEComment on above:NANCY (obstructive sleep apnea) (Primary Dx); Hypersomnia; Snoring; Atrial fibrillation, unspecified type (CMS/HCC); Sleep deprivationStart: 07-17-2024 End: 02-17-0658Bfeqrh flowsheetNicole Russel DO Work Phone: [facility] [place] ROUTEStart: 07-17-2024 End: 32-28-9933Ckzrxs flowsheetNicole Russel DO Work Phone: noMS [place] ROUTEStart: 07-16-2024 End: 26-54-5232pdwaqnzufhLBLR Cleveland Clinictart: 06-12-2024 End: 49-44-0465Jgwjoe flowsDerick Dawson MD Work Phone: noms ENDOCRINOLOGYStart: 06-12-2024 End: 71-63-8519Nrhter Shahrzad Dawson MD Work Phone: noms ENDOCRINOLOGYStart: 06-12-2024 End: 27-80-9764Ujxedw outpatient visit 25 minutesAhmeggan Dawson MD Work Phone: noms ENDOCRINOLOGYComment on above:Sarah's disease (CMS/HCC) (Primary Dx)Start: 06-11-2024 End: 61-13-4903egumrwmkzyJWWVDRAPNZF A FOETISCHProMedica Parkwood Hospitaltart: 06-11-2024 End: 88-81-0148Bvfpimd encounter procedureChrisdennis Anthony MD Work Phone: [facility] Orthopedic SurgeryComment on above:Primary osteoarthritis of right knee (Primary Dx)Start: 06-06-2024 End: 84-98-3373jwivsacgsfBK Ilda Pompa Hoy Work Phone: [facility] Work Phone: Start: 06-06-2024 End: 96-68-6222Lknbkna encounter procedureMD Ilda Hoy Work Phone: [facility] Nephrology [place] Work Phone: Start: 22-02-2598Ivr-patient / Non-visitMD Ilda Hoy Work Phone: [facility] Work Phone: Start: 05-29-2024 End: 50-76-9683fqsbrwiixuDsgouls R NILLFacility:CD:[id number]: 05-07-2024 End: 48-45-0420rznpgtoswiPzukewg R NILLFacility:GS BellevueStart: 05-07-2024 End: 43-73-5563Qwwyspk encounter procedureMichael R NILL [phone]-Pnfqi General Surgery [place] Start: 86-43-2078cissmdrjeyBzgidtp NILLFacility:GS BellevueStart: 04-05-2024 End: 26-83-8036glfdewggzjYM Ilda Peck Work Phone: [facility] Work Phone: Start: 04-05-2024 End: 55-31-1451Rqwfqiqv ReferredMD Ilda Peck Work Phone: [facility]-LAB Path Spec [place] HospStart: 75-09-3386Ketvew encounterMETROHEALTH SYSTEM Work Phone: Start: 04-59-3662hqerqstxnvAljesly R WATERSFacility:EU tart: 11-02-2023 End: 48-01-2880Jungikw encounter procedureChsaulo Anthony MD Work Phone: [facility] SurgeryComment on above:Primary osteoarthritis of right knee (Primary Dx)Start: 10-16-2023 End: 17-66-9429Fexujdn encounter procedureVianey SILVERMAN [facility] start: 07-27-2023 End: 27-56-1215icjrqpaxuwXwqjp Antonia Other Nort [facility] Other Start: 73-74-8574Goiotf outpatient new 45 minutesAbdul QadirFPG NephrologyStart: 06-12-2023 End: 04-42-8372Cnyozgs encounter procedureVianey SILVERMAN [facility] start: 05-03-2023 End: 45-52-4025Gibnhki encounter procedureTaylor Joshua [facility] start: 04-26-2023 End: 75-76-6472cacrzhxmwqXOPKDZY M HOYFacility:[facility] Centertart: 04-26-2023 End: 73-53-8935Apewrmx encounter Mo Hernandez PA-C Work Phone: Spine MedicineComment on above:Height loss (Primary Dx)Start: 03-08-2023 End: 22-19-5212Ddqdlum encounter procedureJENNIFER E JENNIFER [facility] start: 01-20-2023 End: 73-52-0463xukpndlzutOC ILDA HOY .Facility:U6Tvljl: 12-02-2022 End: 59-43-4579Bdbcvhk encounter procedureVainey SILVERMAN [facility] start: 11-18-2022 End: 07-51-2217hmrczhtalaIK ILDA HOY .Facility:T5Smzsq: 11-08-2022 End: 34-77-5718ngtxnqxskbZNFPP M LUE .Facility:J2Pjlkp: 11-01-2022 End: 77-22-2966Sqlvkvn encounter procedureJENNIFER E JENNIFER [facility] start: 10-05-2022 End: 64-02-5326Jxkoqpa encounter procedureJENNIFER E JENNIFER [facility] start: 09-07-2022 End: 15-49-3517Cmtwxxz encounter procedureTaylor Joshua [facility] start: 72-54-2446Zqflbe encounterJovita Virk MD Work Phone: [facility]Start: 08-17-2022 End: 89-08-9390Vnryigj encounter procedureTaylor PeñaMark Tres [facility] start: 84-98-1902Dfqrrwfei encounterAarti Kelsey MA, CCC, INSURANCE CLAIM APPROVER Work Phone: [facility] [address] Speech TherapyStart: 07-21-2022 End: 60-38-7172poscfhftbzRZHarriett PECK .Facility:F5Neoke: 07-20-2022 End: 40-66-6264Qemjhw outpatient visit 25 minutesJovita Virk MD Work Phone: [facility] PM&R Cancer CareComment on above: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); Cognitive changes; Body mass index (BMI) 28.0-28.9, adultStart: 07-11-2022 End: 14-06-9110Wfhixql encounter procedureVianey SILVERMAN [facility] start: 06-15-2022 End: 57-38-3650invuslisxvZFHarriett FloresFacility:X5Wryst: 06-13-2022 End: 24-63-8020Shfjeyp encounter procedureVianey SILVERMAN [facility] start: 04-27-2022 End: 42-07-6623wdcrmfutngPWHarriett FloresFacility:L8Qeydp: 04-07-2022 RefillJovita Virk MD Work Phone: [facility] [place] PM&RComment on above: RefillStart: 88-85-6890xjkwgvpnuaOB ILDA HOY .Facility:S0Edrky: 03-17-2022 ambulatoryDR ILDA HOY .Facility:Y3Mrrbi: 58-39-4415Gdqtnfqel for general adult medical examination without abnormal findingsDR ILDA HOY .[facility] 03-07-2022 End: 43-71-7763Qpbtovcst for general adult medical examination without abnormal findingsDR ILDA HOY .Facility:E9Enwyg: 03-07-2022 End: 79-08-8608ztwmfdkhrxQK ILDA HOY .Facility:N8Pkstg: 03-01-2022 End: 36-52-9452Qdcsbos encounter procedureSaeed Cantu Jr. executive Urology [facility] start: 02-01-2022 End: 68-56-0179Jzkvzpt encounter procedureSaeed Cantu Jr. [facility] start: 01-04-2022 End: 39-28-5205Qsnmxhf encounter procedureSaeed Cantu Jr. executive Urology [facility] Procedures DateProcedureProcedure DetailPerforming ClinicianStart: 13-77-3408Lhxqkyvdtkoogd aspir&/inj major jt/bursa w/o usChristopher Dawn Anthony MD Work Phone: Start: 91-16-3608Yccmfgqcidutvw aspir&/inj major jt/bursa w/o usChristopher Dawn Anthony MD Work Phone: Start: 88-36-6048Irvadfsnfyizrd aspir&/inj major jt/bursa w/o usChristopher Dawn Anthony MD Work Phone: Start: 60-38-0897Xgvraq-up visitFollow-upCHRISTOPHER Dawn NEWBYETISZULEYKAStart: 90-38-7981FpcomrdhcwsVrkeu Sabbagh MD Work Phone: Start: 65-57-6819KafdidjrtssRxcjznr NILL Start: 49-08-3032Qtxtuvfazqnyyn aspir&/inj major jt/bursa w/o usChristopher Dawn Anthony MD Work Phone: Start: 94-29-7316XIB screeningDR ILDA PECK .Comment on above:Performed By: #### TESTTOT #### [facility] [address] [place] [address] Dr. Reuben Nicholsart: 95-09-4353ATQ screeningDR ILDA PECK .Comment on above: Performed By: #### IRON, PSASC, VITB12, VITAD #### [facility] [address] [place] [address] Dr. Reuben Rollins: 32-67-1728Tjyxqajqlztpednap with dilation of urethral strictureSaeed Pepe Duncan. start: 52-06-1758SutbetyhwdvWymjcze NILL Arthroplasty of kneeSaeed Cantu Jr. comment on above:Left sideArthroscopy of shoulder Shawanda NILL CardioversionMichael NILL Cervical arthrodesisMichael NILL Hernia repairDontracy Cantu Jr. repair of left inguinal herniaMichael NILL Repair of musculotendinous cuff of shoulderSaeed Cantu Jr. Transesophageal echocardiographyMichael NILL Plan of Treatment DateCare ActivityDetailAuthorStart: 80-52-2942Lnpialotc for malignant neoplasm of colonNOMS HealthcareStart: 03-13-1434WXA vaccine (adult) (1 - 1-dose 75+ series)RSV vaccine (adult) (1 - 1-dose 75+ series)[facility]HealthStart: 09-04-2031 DTaP,Tdap and Td Vaccines (2 - Tdap)DTaP,Tdap and Td Vaccines (2 - Tdap) [facility] SystemStart: 03-23-7113Prvql microalbumin profileDTAP,TDAP,TD (2 - Tdap)[facility] Rehabilitationtart: 07-50-6225UXHHHKBE CANCER SCREENING DISCUSSION PROSTATE CANCER SCREENING DISCUSSIONCleveland Clinic Children's Hospital for Rehabilitationtart: 85-69-7875Fyogh BMI ScreeningAdult BMI ScreeningProBlanchard Valley Health System SystemStart: 94-85-0758Gcavtld ScreeningTobacco ScreeningProCleveland Clinic [facility] Hospitaltart: 12-10-2025 End: 87-15-3378Cxwbuqo encounter pxozwbvcy54/18/2026 11:00 AM EDT Office Visit [facility] [address] [place] [address] Román Dawson MD [address] [place] [address] NOMDeanna Martin EndocrinologyStart: 02-77-7624Ujmna panelCholesterolMETCLEVELAND CLINIC AKRON GENERAL SYSTEMStart: 07-15-2025 End: 77-85-2266Wtjshxp encounter ppmvqgefd53/21/2025 3:00 PM EDT Office Visit [facility] [address] [place] [phone] Sage Goode, [address] [place] [address] [facility] ROUTEStart: 10-68-9356Seoeegnpc vaccinationInfluenza Vaccine (#1)[facility]roHealthStart: 86-36-0718Thywk BMI Screening Adult BMI ScreeningScotland Memorial Hospitaltart: 06-11-2025 End: 95-34-8550Chcbqtrmlzb [Units/volume] in Serum or PlasmaTSH Lab Routine Sarah's disease Expected: 06/11/2025 (Approximate), Expires: 06/11/2026[facility] HealthcareComment on above:Expected: 06/11/2025 (Approximate), Expires: 06/11/2026Start: 06-11-2025 End: 12-78-3644Baofdcsya (T4) free [Mass/volume] in Serum or PlasmaT4, free Lab Routine Sarah's disease Expected: 06/11/2025 (Approximate), Expires: 06/11/2026[place] HealthcareComment on above:Expected: 06/11/2025 (Approximate), Expires: 06/11/2026Start: 10-60-4298Kuossqh ScreeningTobacco ScreeningSalem City Hospital SystemStart: 06-11-2025 End: 11-29-4148Rrvaejfpxlevdvej (T3) Free [Mass/volume] in Serum or PlasmaT3, free Lab Routine Sarah's disease Expected: 06/11/2025 (Approximate), Expires: 06/11/2026[facility] Work Phone: Comment on above:Expected: 06/11/2025 (Approximate), Expires: 06/11/2026Start: 06-11-2025 End: 90-95-0189Bipcaxm encounter glyqkrgkh17/17/2025 10:30 AM EDT Office Visit [facility] [address] [place] [phone] Román Dawson MD [address] [place] [address] N[facility]S ENDOCRINOLOGYStart: 43-67-4005LVZTA-19 Vaccine ( season)COVID-19 Vaccine ( season)[facility] Start: 63-93-2531Eetzeehwz vaccinationProBlanchard Valley Health System SystemStart: 02-18-2025 End: 91-12-8384YY Knee - right 4 ViewsProMedica Work Phone: Comment on above:Expected: 02/18/2025, Expires: 02/18/2026Start: 70-75-4373Secsj BMI ScreeningAdult BMI ScreeningSalem City Hospital SystemStart: 20-97-2699Owjdlfn ScreeningTobacco ScreeningProBlanchard Valley Health System SystemStart: 07-17-2024 End: 79-01-1722Xixbxat encounter kiykgpsdr27/23/2024 2:30 PM EDT [facility] [address] [place] [id number] Sage Goode, [address] [place] [address] [facility] R[facility]TEStart: 06-12-2024 End: 82-71-9967Jecvrlbnkdg [Units/volume] in Serum or PlasmaTSH Lab Routine Sarah's disease (CMS/HCC) Expected: 06/12/2024 (Approximate), Expires: 06/12/2025[facility] HealthcareComment on above:Expected: 06/12/2024 (Approximate), Expires: 06/12/2025Start: 06-12-2024 End: 44-89-5742Rhugmzwru (T4) free [Mass/volume] in Serum or PlasmaT4, free Lab Routine Sarah's disease (CMS/HCC) Expected: 06/12/2024 (Approximate), Expires: 06/12/2025[facility] HealthcareComment on above:Expected: 06/12/2024 (Approximate), Expires: 06/12/2025Start: 06-12-2024 End: 72-13-9707Rmytfafcdpvbwmxz (T3) Free [Mass/volume] in Serum or PlasmaT3, free Lab Routine Sarah's disease (CMS/HCC) Expected: 06/12/2024 (Approximate), Expires: 06/12/2025[facility] [facility] Work Phone: Comment on above:Expected: 06/12/2024 (Approximate), Expires: 06/12/2025Start: 62-70-4637ALXNW-19 Vaccine ()COVID- 19 Vaccine ()[facility] SystemStart: 47-37-5503WDJLC-19 Vaccine ( season)COVID-19 Vaccine ( season)[facility] SystemStart: 40-27-5079Bscmtltic vaccinationJORDAN [facility] HealthcareStart: 32-81-1274Sprm Risk ScreeningFall Risk ScreeningProBlanchard Valley Health System SystemStart: 46-36-7037Knighqdfowof Vaccine: 65+ Years (1 of 1 - PCV)Pneumococcal Vaccine: 65+ Years (1 of 1 - PCV)[facility] HealthcareStart: 09-03-4279PCNXQ-19 Vaccine ( season)COVID-19 Vaccine ( season)[facility] SYSTEMStart: 42-18-4206Jzmnqmzpg vaccinationINFLUENZA (#1)[facility]: 09-25-2022 DEPRESSION ASSESSMENTDEPRESSION ASSESSMENTCleveland Clinic Children[facility] Hospital for Rehabilitationtart: 09-20-2022 COVID-19 Vaccine (5 - Booster for Pfizer series)COVID-19 Vaccine (5 - Booster for Pfizer series)[facility] SystemroHealthStart: 57-13-8533FSOKW-19 VACCINE (5 - Pfizer series)COVID-19 VACCINE (5 - Pfizer series)[facility]: 07-19-2022 End: 35-47-0410Ybcesyj encounter rrdziqqem85/25/2022 Office Visit Physical Medicine & Rehab/PM&R Jovita Virk MD [address] [place] [id number] [facility] [place] PM&RStart: 94-40-3622Xvzamymcm vaccinationInfluenza Vaccine (#1)[facility] Start: 60-51-7153Crnuawbv (RZV) Vaccine (2 of 2)Shingles (RZV) Vaccine (2 of 2) [facility]: 79-88-0251YVXCS-19 Vaccine (4 - Booster for Pfizer series) COVID-19 Vaccine (4 - Booster for Pfizer series)[facility]: 11-15-2021 COVID-19 Vaccine (4 - Booster for Pfizer series)COVID-19 Vaccine (4 - Booster for Pfizer series)[facility]Start: 71-68-1673Zzqvs panelCholesterolMetSt. Elizabeth Hospital Start: 25-18-1839VIOPFKFP SCREENDIABETES SCREENCleveland Clinic Children's Hospital for Rehabilitationtart: 2019 Hepatitis B (HBV) Vaccine (optional start 60+ years)Hepatitis B (HBV) Vaccine (optional start 60+ years)METCLEVELAND CLINIC [facility] SYSTEMStart: 95-10-5575JLL vaccine (optional 60+ years)RSV vaccine (optional 60+ years)[facility] SYSTEMStart: 97-25-4937Pivopu wellness visitAnnual Wellness Visit ([id number])[facility]HealthStart: 90-77-9879Lyhuwec stimulating hormone measurementTSHMetroHealthStart: 2009 Measurement of occult blood in single stool specimenFITMetroHealthStart: 23-84-4540Wxohfmvfkxyc vaccinationPneumococcal Vaccine(s) (50+ yrs) (1 of 1 - PCV)[facility]Start: 82-51-5987Qcnpmkubq for malignant neoplasm of colonCRC ScreeningMetroHealthStart: 82-48-5147Vfzqhnri (RZV) Vaccine (1 of 2)Shingles (RZV) Vaccine (1 of 2)[facility]Start: 53-56-1308TVLCIIOSD (FIT-DNA)COLOGUARD (FIT-DNA)[facility]: 04-55-3239DfhqdvyjsveRHGDGAGQJTDGfhjfiden Clinic Start: 60-64-0773GIYPVEQPNB CANCER SCREENINGCOLORECTAL CANCER SCREENINGCleveland Clinic [facility] Hospital for Rehabilitationtart: 81-33-0819EP COLONOGRAPHYCT COLONOGRAPHYCleveland Clinic Children[facility] Hospital for Rehabilitationtart: 07-93-3894FDMSW OCCULT BLOODFECAL OCCULT BLOODCleveland Clinic [facility] Hospital [facility] Rehabilitationtart: 02-22-2004 Screening for malignant neoplasm of colonMETCLEVELAND CLINIC AKRON GENERAL SYSTEMStart: 02-22-2004 SIGMOIDOSCOPYSIGMOIDOSCOPYCleveland [facility] Rehabilitationtart: 41-90-3028MQVHG SCREENLIPID SCREENCleveland Clinic Children's Hospital for Rehabilitationtart: 82-07-4840Amlnrhbcc A (HAV) Vaccine (optional start 19+ years)Hepatitis A (HAV) Vaccine (optional start 19+ years)METCLEVELAND CLINIC [facility] SYSTEMStart: 13-64-0928Nhiwk BMI Follow Up PlanAdult BMI Follow Up PlanSalem City Hospital SystemStart: 44-17-7213RRDFSH PCP TEAM CHRONIC DISEASE VISITANNUAL PCP TEAM CHRONIC DISEASE VISITCleveland Clinic Children's Hospital for Rehabilitationtart: 29-24-3144Sjbufinz foot examinationDiabetic Foot ExamProCleveland Clinic [facility] Hospitaltart: 62-24-7230Lycyfpbpo C screeningHepatitis C AntibodyMetroHealthStart: 21-40-3385RSOFYFGFH C SCREENING HEPATITIS C SCREENINGCleveland Clinic Children's Hospital for Rehabilitationtart: 51-62-8963DOX SCREENINGHIV SCREENING [facility]tart: 41-24-3864JUFQCAJKRXVGEMWQAMYDDmadtzgff ClinicStart: 82-97-1319Gvqippn + diphtheria + acellular pertussis vaccine (product)Tdap BoosterMetroHealthStart: 09-13-9397DYV screeningHIV TestMetroHealthStart: 14-19-5452Vmwhexdnxo ScreeningDepression ScreeningScotland Memorial Hospitaltart: 94-96-2807CNLFRGWAOTTC (1 - PCV)PNEUMOCOCCAL (1 - PCV)[facility]: 22-43-0313Weowurzg screeningDiabetic Ophthalmology ExamC[facility] Start: 1960Medicare Annual Wellness VisitMedicare Annual Wellness Visit [facility]tart: 31-41-2458Xovrgynsv for malignant neoplasm of colonMetroHealthStart: 92-37-7930Avvlnx Use: DiabeticStatin Use: Diabetic [facility] HospitalArthrp kne condyle&platu medial&lat compartmentsROBOTIC REPLACEMENT TOTAL JOINT KNEE Primary osteoarthritis of right kneeFLOWER SURGERY Hemoglobin [Mass/volume] in [facility] Immunizations Immunization DateImmunizationNotesCare DgrycpvtZxxlasmd20-86-8334nptultfof virus vaccine, unspecified formulationChristopher Raj PRIETO Work Phone: [facility] HospitalMkqqjd78-39-0737ojjnhptde virus vaccine, unspecified formulationMichael NILL [phone]-ScsutOhiohealth Berger Hospital General Surgery Dendron 98-29-9065Hgifiayvu, injectable, Madin Hanna Canine Kidney, preservative free, quadrivalentMETROHEALTH SYSTEM Work Phone: [phone]fk vaccine recombinantMichael Ulices BARRY Work Phone: cTriHealth [facility] HospitalYmwthn99-77-2836Xfvtqqc Monovalent (12+ yrs) COVID-19 vaccine, mRNA, spike protein, LNP, PF, 100 mcg/0.5 mL (RJX=695)[place] 866140-31-2022Influenza, injectable, Madin [place] Canine Kidney, preservative free, quadrivalentJovita Virk MD Work Phone: ArvfrUpbxjo53-403992HavrxQfyoaj31-69-8011zaiiug vaccine recombinantJovita Virk MD Work Phone: DnfodRpyhae89-565812UvnfsSpemto13-31-9235OMTP-LnL-5 (COVID-19) mRNA BNT- 162b2 vaxMicalbertolena ROBERTO [phone]-RnpfnAdena Health System 18-14-2628umklbajfwv, tetanus toxoids and pertussis vaccineJovita Virk MD Work Phone: IevncMdjucg64-237671LulkeAcnemi75-93-1374SJCP-ImX-3 (COVID-19) Ad26 vaccine, recombinantSaeed Cantu Jr. [facility] 11448518-96-9726krhrxlfat, injectable, quadrivalent, preservative freeJovita Virk MD Work Phone: [phone]aWkujop96-76-5191crlzncmst virus vaccine, unspecified formulationJovita Virk MD Work Phone: [phone]4-545988JbdvnKtgdtc13-91-7532esywfxeua virus vaccine, unspecified formulationSaeed Cantu Jr. [facility] 03052697-00-9124Anljqp (12+ yrs) SARS-COV-2 (COVID-19) vaccine, mRNA, spike protein, LNP, pres. free, 30 mcg/0.3mL dose (WUO=100)Jovita Virk MD Work Phone: HqwpfHdzckn69-938324BsvdkYrejve69-13-4681Sptiwv (12+ yrs) SARS-COV-2 (COVID-19) vaccine, mRNA, spike protein, LNP, pres. free, 30 mcg/0.3mL dose (VIJ=729)Jovita Virk MD Work Phone: YdtyqCopljd70-405686AiiitMivkol96-32-9399cezebehxy virus vaccine, unspecified formulationSaeed Cantu Jr. [facility] 10136347-01-8398aiehwlpop, injectable, quadrivalent, preservative Camryn Virk MD Work Phone: [phone]E-OcU-8 (COVID-19) mRNA BNT- 162b2 zacariasxSaeed Cantu Jr. [facility] 03-113384-93-2267LLIO-PzL-7 (COVID-19) mRNA BNT-162b2 zacarisax Saeed Cantu Jr. [facility] Payers DatePayer CategoryPayerPolicy [id number]-[id number] [facility] 1.2.840.712649.1.13.693.2.7.9.391936.397927.93743-83-2788KlyxFlorala Memorial Hospital Care - PPO1.2.840.454299.1.13.424.2.7.9.242702.505.39685-61-2996Sdqktea [id number] IndemnityMEDICAL MUTUAL - TRADITIONAL 1.2.840.983567.1.13.56.2.7.9.872202.425.60012-45-0190Cniusal 1.2.840.826920.1.13.56.2.7.3.061080.10763-24-7901Nwxjxlm35611123093065-50-3628 Medicare1.2.840.508465.1.13.56.2.7.3.396924.315 2014Medicare FFSMEDICARE 1.2.840.044354.1.13.56.2.7.9.724282.100.315 [id number] 93-85-9190Fdwz-hhy45137075784-10-4296Eybpmjz6589350 2.16.840.1.198272.3.579.2.09383-36-6610Rkqutsb7824551 2.16.840.1.174144.3.579.2.30772-67-7365Llzndfh7049011 2.16.840.1.118752.3.579.2.45941-33-5849Vsgdeqz5531553 2.16.840.1.034207.3.579.2.34668-61-3727Jmxsoob6388258 2.16.840.1.148107.3.579.2.38884-74-6670Ezfpczi5655522 2.16.840.1.416755.3.579.2.49454-08-8229Dphrxaf4779907 2.16.840.1.665871.3.579.2.69966-29-6445Jktpfxz8131002 2.16.840.1.811361.3.579.2.50482-11-2932Gdviivf7334774 2.16.840.1.876455.3.579.2.79861-27-7120Tomerwx5312188 2.16.840.1.846572.3.579.2.71348-07-7330Fpqigeq5007515 2.16.840.1.186521.3.579.2.82114-68-5185Rthdxiv76316814 2.16.840.1.629810.3.579.2.66740-51-5221Yoxaqwx80573152 2.16.840.1.607377.3.579.2.61278-24-3083Otnwbht12718709 2.16.840.1.273476.3.579.2.69565-10-9446Oxzgxbj91567379 2.16840.1.017648.3.579.2.14773-95-9625Upxqlkf39794626 2.16.840.1.742487.3.579.2.46456-08-3622Bzuscgn18051875 2.16.840.1.178083.3.579.2.46906-56-6010Bdkvkgm845696483 2.16840.1.381017.3.579.2.296531-41-5380Bnfmxam294384259 2.16840.1.787918.3.579.2.504381-43-1342Kmejgxi148750815 2.840.1.310361.3.579.2.984530-46-3538Pzatjyq89893554 2.0.1.491514.3.579.2.670421-07-9605Gxtoujz58948543 2.160.1.395045.3.579.2.986695-62-9058Wyjvhsi0350201 2.0.1.887891.3.579.2.1259Private [facility] [id number] 7m8t4fiu-b772-6588-d5mc-6606q3189xzbVqnutnu7552430 2.0.1.998374.3.579.2.160Zavogtq774520864 59srz652-450k-1q38-13i4-459oa9o99nd1Tdqckwg50986783 2.0.1.067548.3.579.2.531 Social History DateTypeDetailFacilityStart: 10-05-2021 End: 24-06-8450Pncizrq smoking statusNever smoked tobacco (finding)[facility] Tobacco smoking statusNeverExecutive [facility] of [facility] start: 11-05-2020 End: 78-45-8134Fby Assigned At [facility]aleExec[facility] start: 08-24-2011 End: 34-43-6214Tomwsgb use and exposureSmokeless tobacco non-userMetroHealth Start: 12-07-2017 End: 75-48-0385Xkevger intakeNot AskedMetroHealthStart: 39-93-2196Gui Assigned At BirthNot on fileMetroHealthStart: 39-10-6761Zxbozwy SDOH Social Connections Gjlke8WkdnaRjlwmjChzhu: 53-10-1257Gnomsch SDOH Social Connections Get Together2 [facility]HealthStart: 53-07-0393Bjhksgu SDOH Social Connections Rsisnr33NphkmXrvsrs Start: 45-43-2611Lmpxenjkz36JkvnnFlqmxkJgmit: 04-26-2023 End: 05-14-1795Dpqlbcc intakeCurrent drinker of alcohol (finding)[facility]: 11-05[facility]2020 End: 88-13-9069Pofaicf of Social functionBennington ClinicStart: 12-04-2017 Alcohol CommentsocialBennington ClinicStart: 63-90-9816Zre Assigned At [facility] WestHow often to you have a drink containing alcohol?Monthly or lessNOMS HealthcareHow many standard drinks containing alcohol do you have on a typical day?1 or 2NOMS HealthcareHow often do you have 6 or more drinks on 1 occasion?WeeklyNOLA HealthcareStart: 07-29-2012 End: 83-13-7985YwhIqdh (finding)[facility] SystemStart: 69-07-3534Zuxwom identityIdentifies as male gender (finding)[facility] SystemWithin the last year, have you been afraid of your partner or ex-partner?NoMetroHealthDo you feel stress - tense, restless, nervous, or anxious, or unable to sleep at night because yourmind is troubled all the time - these days [OSQ]Not at all [facility](I/We) worried whether (my/our) food would run out before (I/we) got money to buy more.Never trueMetroHealth Medical Equipment Procedure CodeEquipment CodeEquipment Original TextEquipment IdentifierDatesBrng Tib 71lfv96vp 0d Kn Ant - [id number]: 18-97-8525Buhhql Bn Palacos Radpq 40g Rpl [id number] - [id number]: 02-39-6021Gx Tib 79mm Cocr Kn I Beam - [id number]: 60-24-6231Namc Fem Kn Lt 70mm Cr Cmnt - [id number]: 93-29-6456Ijlo Ptlr Thn 34mm 3 Pg Kn Ser - [id number] Start: 09-05-2016 Goals DatePatient GoalDesired Activity/StatePersonal health goalComment on above: Evaluation of progress towards goal: Maximize work with PT at discharge to strengthen L knee Functional Status CpinUoduivfaphUwmamoWesbpcmv30-18-7799Vdwkbdbvrg StatusN/AExecutive [facility]11-19-2024Functional StatusN/[facility] Orpxyfry75-71-5902Pdnvpcvhxq StatusN/[facility] Fstydtii73-75-8195Ekfexvcfxk StatusN/AExec[facility]09-18-2023Functional StatusN/A[facility]03-10-2023Functional StatusN/AExec[facility]10-26-2022Are you deaf, or do you have serious difficulty hearingNo 07/20/2022 2:51 PM Jovita Lopez MD No MfyoeHzzbwa00-85-8648Exd you blind, or do you have serious difficulty seeing, even when wearing glassesNo 07/20/2022 2:51 PM EDT Jovita Virk MD NoMetroHealth 31-04-6653Yt you have serious difficulty walking or climbing stairsYes 07/20/2022 2:51 PM EDT Jovita Virk MD XniYjbuyJjngiz43-06-5077Gx you have difficulty dressing or bathingNo 07/20/2022 2:51 PM EDT Jovita Virk MD No RsauxOjpavm50-19-8014Skryktf of a physical, mental, or emotional condition, do you have difficulty doing errands alone such as visiting a physician's office or shoppingYes 07/20/2022 2:51 PM EDT Jovita Virk MD [facility] Status YilnMewnqsbksrZzjwmrTjistjky37-84-0548Kwpyign of a physical, mental, or emotional condition, do you have serious difficulty concentrating, remembering, or making decisionsYes 07/20/2022 2:51 PM EDT Jovita Virk MD [facility] Clinical Notes 04-07-2022 to 06-11-2025 Note Date & YmcbJztpBqlaubwb62-10-2375 Miscellaneous Notes* Telephone Encounter - Margaret Quintanilla - 06/11/2025 3:39 PM EDT Pt signed consent for Rt TKA 08/06/25-pt called today stating he has to cancel surgery as is changing hospitals, new insurance will not be covered with CAF. Surgery canceled / all notified. documented in this encounterCleveland Clinic [facility]09-17-2025 Telephone encounter Note* Telephone Encounter - Margaret Quintanilla - 06/11/2025 3:39 PM EDT Pt signed consent for Rt TKA 08/06/25-pt called today stating he has to cancel surgery as is changing hospitals, new insurance will not be covered with CAF. Surgery canceled / all notified. [facility]09-17-2025 History of Present illness Narrative* Román Dawson MD - 06/11/2025 10:30 AM EDT Vianey Lacey is a 65 y.o. male No ref. provider found presents with chief complaint of Follow-up and Thyroid Problem HPI: Interim History 05/2025 Follow up visit on 06/11/2025 for lab. free T4 0.74 (0.76-1.46), TSH 1, free T3 1.86 (2.18-3.98) andhe is on levothyroxine 100 mcg daily and Cytomel 25 half tablet. Interim History 05/2024. Follow up visit on [...] Medications Medication Instructions apixaban (ELIQUIS) 5 mg, 2 times daily ascorbic acid (VITAMIN C) 1,000 mg, Daily cholecalciferol (VITAMIN D-3) 5,000 Units, Daily hydrALAZINE (APRESOLINE) 25 mg, 3 times daily levothyroxine (SYNTHROID, LEVOXYL) 112 mcg, Oral, 2 times daily liothyronine (CYTOMEL) 25 mcg, Oral, Daily, Take 0.5 tabs po qd tamsulosin (FLOMAX) 0.4 mg, Daily ALLERGIES: Allergies Allergen Reactions Ciprofloxacin Past Medical History: Diagnosis Date A-fib (HCC) Arthritis Autoimmune thyroiditis CHF (congestive heart failure) (HCC) Hypertension Hypothyroidism Kidney disease Low platelet count Low vitamin B12 level Thyroid disease Unspecified atrial fibrillation (HCC) Past Surgical History: Procedure Laterality Date CARDIOVERSION CT ANGIO HEAD 11/17/2023 CT ANGIO HEAD 11/17/2023 CT ANGIOGRAM NECK 11/17/2023 CT ANGIOGRAM NECK 11/17/2023 HERNIA REPAIR SPINAL FUSION Cervical TOTAL KNEE ARTHROPLASTY Left REVIEW OF SYMPTOMS: Review of Systems 14 POINT OF SYSTEM REVIEWED AND NEGATIVE OBJECTIVE: Visit Vitals BP 142/90 Pulse (!) 49 Resp 16 Ht 5' 6.5 Wt 187 lb SpO2 98% BMI 29.73 kg/m Smoking Status Never BSA 1.99 m Physical Exam Constitutional: Appearance: Normal appearance. [...] all orders for this visit: Sarah's disease - levothyroxine (Synthroid, Levoxyl) 112 MCG tablet; Take 1 tablet (112 mcg) by mouth in the morning and 1 tablet (112 mcg) before bedtime. - liothyronine (Cytomel) 25 MCG tablet; Take 1 tablet (25 mcg) by mouth Daily Take 0.5 tabs po qd - T3, free; Future - T4, free; Future - TSH; Future We will increase levothyroxine to 112 mcg daily, c/o liothyronine 25 half tablet daily. Follow up in about 6 months (around 12/09/2025). documented in this encounterNOMS Ormstprzjz40-65-8353 Evaluation note* Diagnosis Onset Date Resolution Status Admit Date Primary osteoarthritis of right knee acuteAugust 2024 10:39am [facility] Work Phone: 1(121) 809-176205-27-2025 History of Present illness Narrative* Osmin Anthony [...] replacement. He has an appointment with his Print Line Supervisor coming up and I explained that he [...] also discussed. Cornell meet with the surgical appliances salesperson to schedule the procedure. Informed consent obtained. His knee was re-injected today. Informed consent obtained. Return in about 3 months (around 05/21/2025) for X-Ray-Right Knee, Post Op. Pat was advised to contact the office if there are any problems, questions, or concerns. *I have seen and evaluated the patient today with my physician department assistant and agree with all aspectsof the [...] via MyChart?: Immediate [1] documented in this encounterCleveland Clinic South Pointe [facility]04-29-20[facility] Chief Complaint: [...] days., Disp: , Rfl: vitamin B complex 928-8-699-2-2 mg/mL injection, Inject into the shoulder, thigh, [...] reversible ischemia. Ejection fraction is normal. Transesophageal Echocardiogram-[facility] Name: VIANEY LACEY Study Date: 07/11/2023 12:24 PM B/P: 104 mmHg/74 mmHg HR: Date of : 1960 Location: [facility] Height: 68 in. Age: 63 year(s) Patient Room : Weight: 189 lb. Gender: Male Patient Status: OutPt BSA: 2 m2 Indication: Atrial Fibrillation, Pre-Cardioversion Examination: JAMIN (Transesophageal Echo / CFI) Image Quality: Good Patient Consent: Informed, written consent was obtained for the procedure s p @ c 3 Exam Location (more content not included)...[facility] 10-21-2024 Hospital Discharge instructions Patient Education [...] urethra. Follow these instructions at home: Take vjjo-dld-iqkszwg and prescription medicines only as told by [...] provider. Document Revised: 03/30/2022 Document Reviewed: 03/30/2022 [employer] Patient Education 2023 [facility] Up [facility] 10/16/2023 14:07:51 With:HERRERA PRIETO, Vianey Crawford, URL Address: [facility] [address], [place] [address]- [phone] When: Unknown Comments:1 yr w/ PSA and T level [facility] [place] 01-27-2025 NotePatient Education Urology Benign [...] Follow these instructions at home: ??? Take lfub-bbc-fvaffhi and prescription medicines only as told by [...] symptoms do not get (more content not included)...[facility]01-14-2025 History of Present illness Narrative* Osmin Anthony [...] evaluated the patient today with my physician department assistant and agree with all aspectsof the [...] created via procedure documentation documented in this encounterPremier HealthCapstory Aufrjt16-11-4978 NoteGeneral Surgery Office/Clinic Note Chief Complaint consultation [...] Recorded SARS-CoV-2 (COVID-19) mRNA BNT-162b2 vax 11/2019 RecordedChildren'S Hospital Of ColumbusComment on above:Result Comment: Electronically Signed By: Shawanda MEJIA MD\Date and Time Signed: 08/13/24 21:11 [id number] History of Present illness Narrative* Sage Goode, DO - 07/17/2024 2:30 PM EDT Images [...] was counseled on the risks of stroke, DC, and sudden with NANCY, along with the [...] to clinic: 2 months documented in this encounterLake Regional Health SystemCerkgsbwzn09-50-4353 NoteUT Electrophysiology Consult Note Reason for visit: [...] Box isolaton+ 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 2. Atrial flutter [...] function. He is also recently seen a supervisor beehive kiln. They are weaning of amantadine which was [...] Year: No Utilities: Not At Risk (11/16/2023) [facility] Utilities Threatened with loss of [...] route for 90 days. vitamin B complex 658-3-161-2-2 mg/mL injection Inject into the shoulder, thigh, [...] daily as directed. (Pa (more content not included)...[facility] 06-12-2024 History of Present illness Narrative* Román Dawson MD - 06/12/2024 10:30 AM EDT Vianey [...] HPI: 09/2023 New patient sent from Tracy Grififn, his oncologist, for hypothyroidism and labs done [...] 1 year (around 06/12/2025). documented in this encounterLake Regional Health SystemRqmcylowel33-05-8853 History of Present illness Narrative* Osmin Anthony [...] evaluated the patient today with my physician department assistant and agree with all aspectsof the [...] created via procedure documentation documented in this encounterCleveland Clinic [facility]08-13-2024 NoteGeneral Surgery Office/Clinic Note Chief Complaint [...] prior to procedure. 2. Chronic anticoagulation (Z79.01: alf (current) use of 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s) see # 1 [...] Abuse - Denies Substa (more content not included)...[facility] ColumbusComment on above:Result Comment: Electronically Signed By: ROBERTO PRIETO, Shawanda Young\Date and Time Signed: 05/07/24 15:50 [id number] History of Present illness Narrative* Osmin Anthony [...] evaluated the patient today with my physician department assistant and agree with all aspectsof the [...] created via procedure documentation documented in this encounterCleveland Clinic South Pointe Hospital01-22-2024 Hospital Discharge instructions Patient Education 10/16/2023 [...] provider. Document Revised: 01/20/2022 Document Reviewed: 01/20/2022 [employer]Nit[employer] Patient Education 2022 [employer]. Follow Up Care 07/31/2023 10:30:59 With:HERRERA PRIETO, Vianey Crawford, CHRISTOFERL Address: [facility] [address] , [place] [address]- When:Within 1 Year(s) Comments:w/PSA [facility] [place] 11-02-2023 Evaluation note* Encounter Date Diagnosis Assessment Notes Treatment Notes Treatment Clinical Notes Jul, Chronic kidney disease, stage II I (moderate) (ICD-10 - N18.30) It was a pleasure to see Mr. Lacey in our office for an evaluation and management of CKD. He likelyhas a CKD as his renal function has been abnormal since 2019 with baseline serum creatinine around 1.3 to 1.5 mg/dL. His renal ultrasound showed left renal cyst with kidney mass, kidney stone or obstruction. His UA showed no evidence of hematuria or proteinuria. I advised him to avoid NSAIDs or afcghqc-cfv-tfpurgn supplements. This deanna with the importance of good HTN control the progression of CKD. Jul,en hy kid w cr kid I-IV (ICD-10 - I12.9)Blood pressure is controlled. He appears to be euvolemic. Continue current medications. Advised himto take low-salt diet. Jul,Secondary hyperparathyroidism (ICD-10 - N25.81)Calcium is within normal limit. We will check PTH and vitamin D. Jul,Renal cyst (ICD-10 - N28.1)He has a renal cyst likely benign Jul,PH (benign prostatic hypertrophy) (ICD-10 - N40.0)Continue Flomax. Continue to follow with urology. Advised him to avoid testosterone due to the riskof transient hypertension. Jul,OSA (obstructive sleep apnea) (ICD-10 - G47.33)Continue follow-up with the specialist. [employer] Other 10-17-2023 History general Narrative - Reported* Type Description Date Medical History FATIGUE Medical HistoryEDEMASurgical HistoryCARDIO [id number]/11/2023Surgical HistoryLEFT KNEE REPLACEMENTSurgical HistoryC5-C6 PLATE AND SCREWSSurgical HistoryDOUBLE HERNIA REPAIRSurgical HistoryRIGHT SHOULDER SCOPESurgical HistoryCOLONOSCOPY Surgical HistoryCYSTO SCOPEHospitalization HistorySEE ABOVE [employer] Other 09-18-2023 Hospital Discharge instructions Patient Education [...] therapy. Follow these instructions at home: Take gfeb-qnv-eevzntx and prescription medicines only as told by [...] provider. Document Revised: 05/13/2021 Document Reviewed: 05/13/2021 [employer] Patient Education 2022 Tinkercad. Follow Up Care 05/04/2023 10:34:04 With:HERRERA PRIETO, Vianey Ty, URL Address: [facility] [address], [place] [address] [phone] When:Within 6 Month(s) Comments:w/Testosterone Level, PSA and CBC [facility]23 NoteHNO ID: [id number] Author: Shawanda Hernandez PA-C Service: ? Author Type: Physician Track Machine Operator Repairer Type: Progress Notes Filed: 04/26/2023 11:40 AM [...] g by mouth twice daily. GLUCOSAMINE HCL/CHONDROITIN RAANDA (GLUCOSAMINE-CHONDROITIN) 750-600 mg chew Take 750 mg [...] Full Oblique Extension With (more content not included)...[facility] 04-26-2023 History of Present illness Narrative* Shawanda [...] Cervical disc disease CVA (cerebral vascular accident) ([facility]) due to head trauma Dysarthria Eczema [...] 2023 TIME: 11:15 AM [facility] Discharge instructions Patient Education [...] urethra. Follow these instructions at home: Take spnm-zjl-jiaprrp and prescription medicines only as told by [...] 09/11/2006 Document Revised: 08/06/2019 Document Reviewed: 10/16/2017 [employer]pilot Patient Education 2020 Tinkercad. Follow Up Care 11/01/2022 10:29:54 With:HERRERA PRIETO, Vianey Crawford, URL Address: [address] [place] [address] [place] [address]- When: Unknown [facility] 11-18-2022 History of Present illness Narrative* Aarti Kelsey MA, SHANNAN, INSURANCE CLAIM APPROVER - 08/12/2022 12:27 PM EST SPEECH LANGUAGE [...] stated should already be in the system. INSURANCE CLAIM APPROVER was speaking with patient's spouse via phone conversation attempting to troubleshoot and bypass the preliminary questionnaires. However, it was unsuccessful. INSURANCE CLAIM APPROVER sent patient's spouse a direct link to her cell phone to connect to video visit and the same issues arose. Patient was connected to Wifi and using an iPad in home setting. The iPad did not successfully pass the hardware test and patient/patient's spouse were never able to successfully log on. INSURANCE CLAIM APPROVER provided patient/patient's spouse the [facility] Support Team's contact information to reach out for further assistance with log on issues. INSURANCE CLAIM APPROVER will e-mail patient's spouse/patient information regarding memory strategies, etc to help in the home setting (patient's spouse reported patient tends to misplace belongings, such as keys, etc and could use a refresher on the strategies. Patient's spouse stated she will take a look at the strategies and go from there with scheduling anything further. INSURANCE CLAIM APPROVER provided patient/spouse with our direct line to [facility] Therapy dept if she has any further questions/concerns or needs to schedule. Patient left without being seen this date. documented in this [id number] Instructions* Patient Instructions* Jovita Virk MD - 07/20/2022 2:49 PM EDT -Get the sleep apnea addressed -Hold amantadine -Add memantine 5mg daily. -External referral for brain MRI. -Speech therapy for cognitive strategies. -R knee surgery. -F/up 1 year, sooner if needed. documented in this [id number] History of Present illness Narrative* Jovita Virk [...] 200 mg into the muscle once amonth. 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 Last available brain imaging [id number] showed ventriculomegaly that was deemed not hydrocephalus [...] Risk protocol implemented: No documented in this [id number] Telephone encounter Note* Telephone Encounter - Renetta [...] PCP on file No PCP on file [id number] Miscellaneous Notes* Telephone Encounter - Renetta Boyer [...] Appointments Appointment Date:02/01/2022 10:00:00 AM Scheduled Provider: Location:[facility] Appointment Type:URO Nurse Visit Appointment Date:03/01/2022 09:00:00 AM Scheduled Provider:Saeed Cantu Jr., MD Location:[facility] Appointment Type:URO Office Visit Appointment Date:04/05/2022 11:15:00 AM Scheduled Provider:Saeed Cantu Jr., MD Location:[facility] Appointment Type:URO Office Visit [facility] evaluation + Plan note Future Appointments Appointment Date:03/01/2022 09:00:00 AM Scheduled Provider:Saeed Cantu Jr., MD Location:[facility] Appointment Type:URO Office Visit Appointment Date:04/05/2022 11:15:00 AM Scheduled Provider:Saeed Cantu Jr., MD Location:[facility] Appointment Type:URO Office Visit [facility] evaluation + Plan note Future Appointments Appointment Date:04/05/2022 11:15:00 AM Scheduled Provider:Saeed Cantu Jr., MD Location:[facility] Appointment Type:URO Office Visit Diagnostic Tests Pending * Testosterone Level Total 03/01/22 [facility] evaluation + Plan note Future Appointments Appointment Date:07/11/2022 10:15:00 AM Scheduled Provider: Location:[facility] Appointment Type:URO Nurse Visit [facility] evaluation + Plan note Future Appointments Appointment Date:09/07/2022 10:00:00 AM Scheduled Provider: Location:[facility] Appointment Type:URO Nurse Visit [facility] evaluation + Plan note Future Appointments Appointment Date:10/05/2022 10:00:00 AM Scheduled Provider: Location:[facility] Appointment Type:URO Nurse Visit [facility] evaluation + Plan note Future Appointments Appointment Date:11/01/2022 10:00:00 AM Scheduled Provider: Location:[facility] Appointment Type:URO Nurse Visit [facility] evaluation + Plan note Future Appointments Appointment Date:11/30/2022 10:00:00 AM Scheduled Provider:Taylor Joshua MD Location:[facility] Appointment Type:URO Office Visit Diagnostic Tests Pending * CBC w/ Auto Diff 11/01/22 * Testosterone Level Total 11/01/22 [facility] evaluation + Plan note Diagnostic Tests Pending * Testosterone Level Total 12/17/22 * Testosterone Level Total 04/25/23 [facility] evaluation + Plan note Future Appointments Appointment Date:04/05/2023 10:00:00 AM Scheduled Provider: Location:[facility] Appointment Type:URO Nurse Visit [facility] evaluation + Plan note Future Appointments Appointment Date:05/30/2023 10:00:00 AM Scheduled Provider: Location:[facility] Appointment Type:URO Nurse Visit [facility] evaluation + Plan note Future Appointments Appointment Date:07/10/2023 09:30:00 AM Scheduled Provider: Location:[facility] Appointment Type:URO Nurse Visit Appointment Date:11/27/2023 09:45:00 AM Scheduled Provider:Vianey SILVERMAN MD Location:[facility] Appointment Type:URO Office Visit Diagnostic Tests Pending * Testosterone Level Total 06/12/23 * PSA Total 06/12/23 * CBC w/ Auto Diff 06/12/23 [facility] evaluation + Plan note Future Appointments Appointment Date:10/21/2024 10:15:00 AM Scheduled Provider:Vianey SILVERMAN MD Location:[facility] Appointment Type:URO Office Visit Diagnostic Tests Pending * PSA Total 10/16/23 [facility] evaluation + Plan note Future Appointments Appointment Date:10/21/2024 10:15:00 AM Scheduled Provider:Vianey SILVERMNA MD Location:[facility] Appointment Type:URO Office Visit [facility] evaluation + Plan note Future Appointments Appointment Date:10/27/2025 10:30:00 AM Scheduled Provider:Vianey SILVERMAN MD Location:[facility] Appointment Type:URO Office Visit Diagnostic Tests Pending * PSA Total 10/21/24 * Testosterone Level Total 10/21/24 [facility] evaluation note* 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 Body mass index (BMI) 28.0-28.9, adult [facility] Height loss- Primary Loss of height [facility] noteNo assessment information availableSumma Health [facility] Work Phone: Evaluation note* Diagnosis Onset Date Resolution Status BPH (benign prostatic hyperplasia) acuteCKD (chronic kidney disease) stage 2, GFR 60-89 ml/minacute [id number] (obstructive sleep apnea)acuteRenal cystacute [facility] Work Phone: Evaluation note* Diagnosis NANCY (obstructive sleep apnea)- Primary Obstructive sleep apnea (adult) (pediatric) Hypersomnia Hypersomnia, unspecified Snoring Other dyspnea and respiratory abnormality Atrial fibrillation, unspecified type (CMS/HCC) Sleep deprivation Problems related to lack of adequate sleep documented in this encounter [facility] Healthcare[facility]* 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 documented in this encounter [facility] HealthcareEvaluation note* Diagnosis Primary osteoarthritis of right knee- Primary [facility] Diagnosis Primary osteoarthritis of right knee- Primary [facility] Diagnosis Primary osteoarthritis of right knee- Primary [facility]* Diagnosis Primary osteoarthritis of right knee- Primary [facility]* Diagnosis Onset Date Resolution Status Admit Date Primary osteoarthritis of right knee acuteAugust 2024 10:39am [facility] Work Phone: Evaluation note* Diagnosis Sarah's disease- Primary Chronic lymphocytic thyroiditis documented in this encounter [facility] HealthcareHospital course Narrative No data available for this section [facility] Hospital Discharge instructions No data available for this section [facility] InstructionsNot on filedocumented in this encounter [facility]InstructionsNot on filedocumented in this encounter [facility]* Attachments The following attachments cannot be sent through Care Everywhere. * Steroid injection (Burundian) * Knee replacement (Burundian) documented in this encounterProMedica Health SystemInstructionsNot on file documented in this encounterProMedica Health SystemProgress note No data available for this section [facility] reason for referral (narrative)No reason for referral information availableProtestant Deaconess [facility] Work Phone: Advance Directives Code StatusDate ActivatedDate InactivatedCommentsFull Code06/09/2011 2:48 PM 06/28/2011 2:29 PMFull Code06/05/2011 4:23 AM06/09/2011 2:48 PMCode StatusDate ActivatedDate InactivatedCommentsFull Code06/09/2011 2:48 PM10 2:29 PMFull Code06/05/2011 4:23 AM06/09/2011 2:48 PM Advance Directive Response Recorded Date/ Time Advance Directives No October 28, 2023 12:48pm Code StatusDate ActivatedDate InactivatedCommentsFull Code06/09/2011 2:48 PM 06/28/2011 2:29 PMCode StatusDate ActivatedDate InactivatedCommentsFull Code 06/05/2011 4:23 AM06/09/2011 2:48 PMDate ActivatedDate InactivatedComments 09/05/2016 8:43 PM09/08/2016 4:31 PMCode StatusDate ActivatedDate Inactivated CommentsFull Code09/05/2016 8:43 PM09/08/2016 4:31 PMDate ActivatedDate InactivatedComments06/09/2011 2:48 PM10 2:29 PMDate ActivatedDate InactivatedComments06/05/2011 4:23 AM06/09/2011 2:48 PM Reason for Referral SpecialtyDiagnoses / ProceduresReferred By ContactReferred To Contact Neuroradiology Diagnoses Cognitive changes Late effect of brain injury (HCC) Jovita Virk MD [address] [place] [address] Referral IDStatusMariferbryanLothian DateExpiration DateVisits RequestedVisits [id number] Patient Preference Comments Brain MRI without contrast. H/o TBI 2010. Continues to struggle with cognitive deficits, fatigue, impaired balance, unimproved. Please evaluate for other structural causes of these issues. Fax report to me at [phone]. 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) Jovita Virk MD [address] [place] [address] [place] [address] Referral IDStatusMariferEliza [facility] DateExpiration DateVisits RequestedVisits [id number] Review Consultation-[facility] QuestionAnswer Is this for a new patient or [...] brother Family history of mental disorder Unknown fatherDeceasedUnknownHeart diseaseUnknownHistory of strokeUnknownMalignant neoplasmUnknownfamily memberFamily history of other conditionUnknownmotherHeart diseaseUnknownDeceasedUnknownsonHypertensionUnknown Chief Complaint and Reason for Visit Chief Complaint Admit Date [facility]-NEW RT KNEE PAIN NX May 13 10:39am 1 year f/u July 14, 2025 4 :26pm Reason for Visit Admit Date Primary osteoarthritis of right knee Aug ust 2024 10:39am Chief Complaint Admit Date M25.561 - Pain in right knee April 10:31am [facility]-NEW RT KNEE PAIN NX May 13 10:39am Reason for Visit Admit Date Primary osteoarthritis of right knee Apr 10:39am Chief Complaint Unknown RENAL 1 year follow upReason for VisitBPH (benign prostatic hyperplasia) CKD (chronic kidney disease) stage 2, GFR 60-89 ml/min [id number] NANCY (obstructive sleep apnea) Renal cyst Additional Source Comments Reason for Visit (unrecogniz ed section and content) ReasonCommentsRefillReasonCommentsMonitoring/follow-upReasonCommentsback issue ReasonCommentsSleep GeiasMjvlimByvltiffKewbgo-xjzitekbpYudnsbAphbssohWezerr-oj Right knee pain - wants injection - last seen 06/11/24ReasonCommentsFollow-up Right knee pain - wants injection - last seen 05/24/23ReasonCommentsFollow-up Right knee pain - wants injection - last seen 11/02/23ReasonCommentsFollow-upRight knee pain - wants injection - last seen 10/08/24ReasonCommentsFollow-upThyroid Problem Care Teams (unrecognized sec tion and content) Team Status: Active Member Role Status Dates Ilda Peck MD Primary Care Provider Active Team Status: Inactive Member Role Status Dates Ilda Peck MD Primary Care Provider Active Start: May 13, 2025 End: May 13, 2025Conner Charles II ProviderActiveStart: May 13, 2025 End: May 13, 2025 Team Status: Active Member Role Status Dates Ilda Peck MD Primary Care Provider Active Start: May 13, 2025 Conner Charles II ProviderActiveStart: May 13, 2025 Team MemberRelationshipSpecialtyStart DateEnd Date Jovita Virk MD [address] [place] [phone] PhysicianPhysical Medicine & Rehab/PM&R1Team MemberRelationshipSpecialty Start DateEnd Date Jovita Virk MD [address] [place], [place] PhysicianPhysical Medicine & Rehab/PM&R1Team MemberRelationshipSpecialty Start DateEnd Date Jovita Virk MD [address] [place], [place] PhysicianPhysical Medicine & Rehab/PM&R1Team MemberRelationshipSpecialty Start DateEnd Date Ilda Peck MD PCP - GeneralFamily Medicine12/04/17 Team Status: Inactive Member Role Status Dates Ilda Peck MD Primary Care Provider Active Start: April 05, 2024 End: April 05whitney Griffin MDAttending ProviderActiveStart: April 05, 2024 End: April 05, 2024 Team Status: Active Member Role Status Dates Ilda Peck MD Primary Care Provider Active Start: June 03, 2024 Sandoval Knight MDAttending ProviderActiveStart: June 03, 2024 Team Status: Inactive Member Role Status Dates Ilda Peck MD Primary Care Provider Active Start: June 06, 2024 End: June 06magali Knight MDAttending ProviderActiveStart: June 06, 2024 End: June 06, 2024Team MemberRelationshipSpecialtyStart DateEnd Date Ilda Peck MD [address] [place] [phone] PCP - GeneralFamily Medicine05/13/24Team MemberRelationshipSpecialtyStart DateEnd Ilda Peck MD [address] [place] [address] PCP - GeneralFamily Medicine05/13/24Team MemberRelationshipSpecialtyStart DateEnd Date Ilda Peck MD [address] [place] [address] PCP - GeneralFamily Medicine05/13/24Team MemberRelationshipSpecialtyStart DateEnd Date Ilda Peck MD [address] [place] [address] PCP - GeneralFamily Medicine05/13/24Team MemberRelationshipSpecialtyStart DateEnd Date Ilda Peck MD PCP - Eoyefpn79/11/16Team MemberRelationshipSpecialtyStart DateEnd Date Ilda Peck MD [address] [place] [address] PCP - Wdqladi23/11/16Team MemberRelationshipSpecialtyStart DateEnd Date Ilda Peck MD PCP - Bjzbent93/11/16Team MemberRelationshipSpecialtyStart DateEnd Date Ilda Peck MD PCP - Bwkqmdr90/11/16Team MemberRelationshipSpecialtyStart DateEnd Date Jovita Virk MD [address] [place] [phone] PhysicianPhysical Medicine & Rehab/PM&R10/03/14Team MemberRelationshipSpecialty Start DateEnd Date Ilda Peck MD [facility] - [facility]05/13/24Team MemberRelationshipSpecialtyStart DateEnd Date Ilda Peck MD PCP - [facility] Medicine05/13/24Team MemberRelationshipSpecialtyStart DateEnd Date Ilda Peck MD PCP - Uujputp90/11/16 Team Status: Active Member Role/Relationship Status Dates Ilda Peck MD Primary Care Provider Active Team Status: Inactive Member Role/Relationship Status Dates Ilda Pekc MD Primary Care Provider Active Start: May 13, 2025 End: May 13, 2025Robmartínez Hutchison II MDAttending ProviderActiveStart: May 13, 2025 End: May 13, 2025 Team Status: Inactive Member Role/Relationship Status Dates Ilda Peck MD Primary Care Provider Active Start: July 14, 2025 End: July 14, 2025Nicole Russel DOAttending ProviderActiveStart: July 14, 2025 End: July 14, 2025 (unrecognized sect ion and content) No Status Records FoundNo Status Records FoundNo Status Records FoundNo Status Records FoundNo Status Records FoundNo Status Records FoundNo Status Records FoundNo Status Records Found INFORMATION SOURCE (unrecogn ized section and content) DATE CREATED AUTHOR 01/27/2023 [facility] DATE CREATED AUTHOR AUTHOR'S ORGANIZ ATION 04/27/2023 [facility] DATE CREATED AUTHOR AUTHOR'S ORGANIZ ATION 09/23/2023 [facility] DATE CREATED AUTHOR AUTHOR'S ORGANIZ ATION 10/23/2024 [facility] DATE CREATED AUTHOR AUTHOR'S ORGANIZ ATION 2025 [facility] DATE CREATED AUTHOR AUTHOR'S ORGANIZ ATION 05/18/2025 [facility] DATE CREATED AUTHOR AUTHOR'S ORGANIZ ATION 06/07/2025 [facility] DATE CREATED AUTHOR AUTHOR'S ORGANIZ ATION 06/12/2025 [facility] EPIC Source Comments (unrecognize d section and content) In the event this informatio n is protected by the Federal Confidentiality of Alcohol and Drug Abuse Patient Records regulations: The Federal rules restrict any use of the information to criminally investigate or prosecute any alcohol or drug abuse patient.[facility] Goals (unrecognized section and content) Goals [...] BE BASED ON THE PRIMARY CLINICAL RECORDS. [employer] [facility]. provides no warranty or guarantee of the accuracy or completeness of information in this document.
[2025-07-22 17:01] LABS: Hematocrit 42.1 % (42.0-54.0); Hemoglobin 14.5 g/dL (14.0-18.0); Immature Granulocytes Abs Auto 0.02 10^3/uL (0.00-0.03); Immature Granulocytes Pct Auto 0.4 % (0.0-0.5); Lymphocytes Absolute Auto 0.9 10^3/uL (1.2-3.8); Mean Corpuscular HGB Conc 34.4 g/dL (29.9-35.2); Mean Corpuscular Hemoglobin 30.6 pg (25.9-34.0); Mean Corpuscular Volume 88.8 fL (80.0-94.0); Platelet Count 146 10^3/uL (150-450); Red Blood Count 4.74 10^6/uL (4.70-6.10); White Blood Count 5.1 10^3/uL (4.0-11.0)
[2025-07-22 17:58] LABS: Alanine Aminotransferase 27 U/L (16-63); Albumin Globulin Ratio 1.3; Albumin Level 3.7 g/dL (3.4-5.0); Alkaline Phosphatase 59 U/L (46-116); Aspartate Amino Transferase 23 U/L (15-37); Blood Urea Nitrogen 22.0 mg/dL (7.0-18.0); Calcium 9.2 mg/dL (8.5-10.1); Chloride 103 mmol/L (98-107); Estimated GFR (African America >60 (>=60 mL/min/1.73m^2); Estimated GFR (Non-African Ame 52 (>=60 mL/min/1.73m^2); Globulin 2.9 g/dL; Glucose 90 mg/dL (74-106); Potassium 4.5 mmol/L (3.5-5.1); Sodium 139 mmol/L (136-145); Total Protein 6.6 g/dL (6.4-8.2)
[2025-07-22 18:13] LABS: Anion Gap 10.3; Carbon Dioxide 30.2 mmol/L (21.0-32.0)
[2025-07-24 08:09] LABS: Immunoglobulin G, Qn 853 mg/dL (603-1613)
== END 2025-07-22 16:36 | disposition home or self-care (01) ==
PROVIDERS: PCP Family Medicine; Visit Provider Internal Medicine Hematology & Oncology
DX: D72.819 Decreased white blood cell count, unspecified (principal); D69.6 Thrombocytopenia, unspecified
CPT/HCPCS: 36415; 80053; 82784; 83615; 85025

== ENCOUNTER 2025-07-25 14:53 | Outpatient (OUT) | payer BC, MEDICARE, SELFPAY ==
--- OUTSIDE RECORDS SUMMARY | 2025-01-21 07:15 | XMS_ITS ---
Author Organization [facility] in [place] Address [address] [place] [address] Care Team Providers Care Imaging Clerk Name Role Phone Nabeel Hendrickson Primary Care Provider Tracy Griffin Unavailable [phone] REASON FOR VISIT MD Encounters Encounter Location Date Provider Diagnosis [facility] Oncology [address] [place] [address] 01/21/2025 Tracy Griffin Plan Of Treatment Next Appt Details Provider Name:TRACY GRIFFIN , 07/29/2025 11:30:00 AM, [address] [place], [address], Progress Notes * King ADDISONDOB: 9[birth year] (65 yo M)Acc No.[id number]:01/21/2025 UNLOCKED PROGRESS NOTE Progress Notes Patient: King NEWSOME :?Tracy Griffin M.D.:1960???Age:64 Y ???Sex:MaleDate:01/21/2025Phone:[phone]:[address] [id number]:Nabeel Hendrickson Subjective: * Chief Complaints: * 1 . MD. * Medical History: Objective: * Vitals: Assessment: Plan: * Treatment: * * Electronic signature of Tracy Griffin MD, [id number] on 07/25/2025 at 07:17 AM EDTSign off status: PendingVisit Status:?VOICEMSG (Voice) * Provider: Dawn Griffin M.D. Date: 0 01/21/2025 Generated for Printing/Faxing/eTransmitting on:?07/25/2025 07:17 AM EDT
--- OUTSIDE RECORDS SUMMARY | 2025-07-25 03:31 | XMS_ITS | Continuity of Care Document ---
Author Organization [facility] Address [address] [place] [address] Phone Care Team Providers Care Spinning Operator Name Role Phone Ryan Hendrickson MD Primary Care Provider Scot Hutchison II, MD Attending Provider [phone] Lois Goode DO Attending Provider [phone] Care Teams Patient Care Team Team Status: Active Member Role/Relationship Status Dates Ryan Hendrickson MD Primary Care Provider Active Visit Care Team Team Status: Inactive Member Role/Relationship Status Dates Ryan Hendrickson MD Primary Care Provider Active Start: May 13, 2025 End: May 13, 2025Conner Charles II ProviderActiveStart: May 13, 2025 End: May 13, 2025 Visit Care Team Team Status: Inactive Member Role/Relationship Status Dates Ryan Hendrickson MD Primary Care Provider Active Start: July 14, 2025 End: July 14, 2025Sujit Rosenbaum ProviderActiveStart: July 14, 2025 End: July 14, 2025 Visit Care Team Team Status: Inactive Member Role/Relationship Status Dates Ryan Hendrickson MD Primary Care Provider Active Start: July 23, 2025 End: July 23, 2025Conner Charles II ProviderActiveStart: July 23, 2025 End: July 23, 2025 Visit Care Team Team Status: Active Member Role/Relationship Status Dates Ryan Hendrickson MD Primary Care Provider Active Start: July 23, 2025 Scot Pompa Foster JONES, LULÚttending ProviderActiveStart: July 23, 2025 Visit Care Team Team Status: Inactive Member Role/Relationship Status Dates Ryan Hendrickson MD Primary Care Provider Active Start: July 23, 2025 End: July 23, 2025Robmartínez Peña Hutchison II, LULÚttending ProviderActiveStart: July 23, 2025 End: July 23, 2025 Visit Care Team Team Status: Inactive Member Role/Relationship Status Dates Ryan Hendrickson MD Primary Care Provider Active Start: July 23, 2025 End: July 23, 2025Scot Hutchison II, LULÚttending ProviderActiveStart: July 23, 2025 End: July 23, 2025 Patient Care Team Team Status: Inactive Member Role/Relationship Status Dates Ryan Hendrickson MD Primary Care Provider Active Start: July 25, 2025 End: July 25, 2025Scot Hutchison II, LULÚttending ProviderActiveStart: July 25, 2025 End: July 25, 2025 Chief Complaint and Reason for Visit Chief Complaint Admit Date TBH-NEW RT KNEE PAIN NX May 13 10:39am 1 year f/u July 14, 2025 4 :26pm Knee Pain July 23, 2025 8 :39am Pre-Op RTK July 23, 2025 1 0:17am H&P RTKA-SDD July 23, 2025 1 1:13am M17.11 - Unilateral primary osteoarthrit is, right July 23, 2025 11:16am Prolonged July 25, 2025 7 :14am Reason for Visit Admit Date Primary osteoarthritis of right knee Aug ust 2024 10:39am Hypersomnia July 14, 2025 4 :26pm Low back pain at multiple sites July 14, 2025 4:26pm NANCY (obstructive sleep apnea) July 142024 4:26pm Snoring July 14, 2025 4 :26pm Primary osteoarthritis of right knee Oct mehdi 2024 11:13am Allergies, Adverse Reactions, Alerts Allergen Type Severity Reaction Last Updated Verified Status Comments ciprofloxacin Allergy Unknown Unknown Reaction July 23, 2025 9:06am Yes Active tendon tightening Social History Smoking Status Status Start Date End Date Date of Observa tion Never smoked tobacco (finding) July 23, 2025 8:43am Observation Status Observation Response Date of Response Legal Sex Male (finding) Sex Assigned At BirthMaleMay 1959 Family History Relationship Condition Age at Onset Recorded Date/T benjamín brother Alcohol abuse Unknown DeceasedUnknownfatherHeart diseaseUnknownDeceasedUnknownHistory of strokeUnknown LymphomaUnknownMyocardial infarctionUnknownmotherHeart diseaseUnknownDeceased UnknownMalignant neoplasm of breastUnknownsonHypertensionUnknownbrotherCrohn's diseaseUnknownsisterDeceasedUnknownMultiple sclerosisUnknownsisterHeart disease UnknownAtrial fibrillationUnknown Problems Active Problems Problem Diagnosis/Recorded Date Onset Date Stat BPH (benign prostatic hyperplasia) June 05 4:00pm Unknown Active NANCY (obstructive sleep apnea) June 05, 2024 4:0 0pm Unknown Active Other ferry terminal agent (current) drug therapy May 13 12:06pm Unknown Active Primary osteoarthritis of right knee May 13, 2025 12:06pm Unknown Active CKD (chronic kidney disease) stage 2, GFR 60-89 ml/min June 05, 2024 3:59pm Unknown Active Hypertensive chronic kidney disease with stage 1 through stage 4 chronic kidney disease, or unspecified chronic kidney disease June 05, 2024 4:00pm Unknown Active Hypersomnia July 14, 2025 5:08pm Unknown Ac tive Low back pain at multiple sites July 14, 2025 5:0 8pm Unknown Active Renal cyst June 05, 2024 4:00pm Unknown Active Snoring July 14, 2025 5:08pm Unknown Ac tive Osteoporosis without current pathological fracture May 13, 2025 12:06pm Unknown Active Medications Medication Status Dose Units Route Directions Qty Days Refills S tart Date Stop Date End Date Reason(s) Instructions Adherence Levothyroxine 112 mcg tablet Active 112 MCG PO Debora ry morning July 23, 2025 12:00amUnknownAscorbic Acid (Vitamin C) (Vitamin C) 1,000 mg copjcjAhfcez5939VMAUXqcoy morningOctober 2024 12:00amUnknown Cholecalciferol (Vitamin D3) (Vitamin D3) 50 mcg (2,000 unit) srzikaTxesuo43HMZ POEvery morningOctober 2024 12:00amUnknownApixaban 5 mg rijthoYkqtop4RNYD Twice dailySept2023 12:00amUnknownLevothyroxine 100 mcg tablet Nhlufntlfqcb594JYNJYLlojxNsbbwzhmi 12th, 2024 12:00amOctober 2024 9:08am Liothyronine 25 mcg gjghvfCtzvtg45.5MCGPOEvery morningSeptember 2023 12:00amUnknownTamsulosin 0.4 mg capsuleActive0.4MGPOEvery morningSeptember 2023 12:00amUnknownHydralazine 25 mg fiaitaQumzhmyermxw23KYMCUmlft times daily June 06, 2024 12:00amAugust 2024 11:22amLisinopril 10 mg tablet Qsddbs80LGSHBfqpa morningAuartesia general hospitalt 2024 12:00amUnknownCpap (Continuous Positive Airway Pressure) unitActive0.Fbewc59OiinhnqJuly 14, 2025 12:00amnew mask and CPAP supplies x 1 year. dx NANCY HartSennosides-Docusate Sodium (Senokot-S) 8.6-50 mg hdljarEbbshs6MFAQLzqnik0843 0October 2024 12:00amDO NOT RECONCILE UNTIL DATE OF SURGERY, MED TO BED DOS 08/04/25UnknownAcetaminophen 500 mg vslqdgYbwtxu9977FYBBP8Z439457Foefkhu 2024 12:00amDO NOT RECONCILE UNTIL DATE OF SURGERY, MED TO BED DOS 08/04/25UnknownPantoprazole (Protonix) 20 mg tablet,delayed release (DR/EC) Dbhgez31BNLOszxky13227Bpxbjqu 2024 12:00amDO NOT RECONCILE UNTIL DATE OF SURGERY, MED TO BED DOS 08/04/25UnknownCefadroxil 500 mg wduvudkRdqcch114RSUZ C42N8900Mxobfmy 2024 12:00amDO NOT RECONCILE UNTIL DATE OF SURGERY, MED TO BED DOS 08/04/25UnknownPolyethylene Glycol 3350 (Miralax) 17 gram/dose powder Omibyl90ZLTJbfqtv896Jqnzvgl 2024 12:00am1 packed mixed with 8 ounces of fluid. DO NOT RECONCILE UNTIL DATE OF SURGERY, MED TO BED DOS 08/04/25UnknownTramadol 50 mg azinpgYlqwpx83IFHUN1J as needed for Qkwf1893Xnekgcq 2024 12:00am Primary osteoarthritis of right knee Unilateral primary osteoarthritis, right kneeDO NOT RECONCILE UNTIL DATE OF SURGERY, MED TO BED DOS 08/04/25UnknownOxycodone 5 mg mallwdDsyrdo4GAQYR2O as needed for Lnrv9291Gldzdyh 2024Primary osteoarthritis of right knee Unilateral primary osteoarthritis, right kneeDO NOT RECONCILE UNTIL DATE OF SURGERY, MED TO BED DOS 08/04/25UnknownPrednisone 10 mg updwxtOutvoa88MQSCteder 59051Rtfqcht 2024 12:00amDO NOT RECONCILE UNTIL DATE OF SURGERY, MED TO BED DOS 08/04/25Unknown Procedures Procedure Date Performed Status XR femur RT 2V* July 23, 2025 11:16am compl eted XR tibia fibula RT 2V* July 23, 2025 11:16a m completed Relevant Diagnostic Tests and/or Laboratory Data Laboratory Results Test Collection Date/Time Result Date/Time Result Interpretation Reference Range Result Comment Performing Site Miscellaneous Test May 13, 2025 12:33pm May 13, 2025 12:33pm COMMENT .Test Ordered: [id number] Nicotine and Metabolite, QuantNicotine <1.0 ng/mL BN Reference Range: .Thistest was developed and its performance characteristicsdetermined by [employer]. It has not been cleared orapproved by the Food and Drug Administration.Nicotine levels greater than 2.0 are consistent with theuse of tobacco or tobacco cessation products.Cotinine <1.0 ng/mL BN Reference Range: .This test was developed and its performance characteristicsdetermined by [employer]. It has not been clearedorapproved by the Food and Drug Administration.Cotinine levels greater than 20.0 are consistent with theuse of tobacco or tobacco cessation products.Performed at: - [facility] [address] [place], [place] [id number] Director: Nicole Calles MD, Phone: [phone] at: - [facility] [place], [place] [id number] Director: Aleks Ferreira PhD, Phone: [phone] Average GlucoseAugust 2024 12:33pmAugust 2024 12:94bv810 mg/dL AlbuminAugust 2024 12:33pmAugust 2024 12:33pm4.2 g/dL3.4-5.025- Hydroxy Vitamin D TotalAugust 2024 12:33pmAugust 2024 12:33pm78.3 ng/mL<20 ng/mL Vit D hsslpubjc44-<30 ng/mL Vit D mwyqydhufcic13-505 ng/mL Vit D sufficient>100 ng/mL Potential ToxicityHemoglobin O0dUhjnvb 2024 12:33pm May 13, 2025 12:33pm5.1 %4.5-6.2ADA RECOMMENDED LIMIT 4.0 - 6.0ADA THERAPEUTIC TARGET < 7.0ACTION SUGGESTED> 7.0Urine ColorOctober 2024 10:00amOctober 2024 10:57amColorlessYellowTrihealth Mccull[facility] [id number] [address] [facility] [address]Xaotg AppearanceOctober 2024 10:00amOctober 2024 10:57amClearClearTrihealth Mccullough-[facility] [id number] [address] [facility] [address]Ebddi Specific GravityOctober 2024 10:00amOctober 2024 10:57am1.0071.001-1.030[facility] [id number] [address] [facility] [address]Fcdlm pHOctober 2024 10:00amOctober 2024 10:57am6.0 5.0-9.0[facility] [id number] [address] [facility] [address]Nvihg Leukocyte EsteraseOctober 2024 10:00amOctober 2024 10:57amNegativeNegativeTrihealth [facility]ull[facility] [id number] [address] [facility] [address]Arlbf NitriteOctober 2024 10:00amOctober 2024 10:57amNegativeNegativeTrihealth [facility] [id number] [address] [facility] [address]Mqgfm ProteinOctober 2024 10:00amOctober 2024 10:57amNegative mg/dLNegProtestant Hospital [facility] [id number] [address] [facility] [address]Cscul Glucose (UA)July 23, 2025 10:00amOctober 2024 10:57amNormal mg/dLNormMount Carmel Health [facility] [id number] [address] [facility] [address]Msarw KetonesOctober 2024 10:00amOctober 2024 10:57amNegativeNegativeTrihealth [facility] [id number] [address] [facility] [address]Ztaqm UrobilinogenOctober 2024 10:00amOctober 2024 10:57amNormal mg/dLNormMount Carmel Health System [facility] [id number] [address] [facility] [address]Xkgym BilirubinOctober 2024 10:00amOctober 2024 10:57amNegativeNegativeTrihealth [facility] [id number] [address] [facility] [address]Knduj Occult BloodOctober 2024 10:00amOctober 2024 10:57amNegativeNegativeTrihealth [facility] [id number] [address] [facility] [address]NdgsfctsenabJcfmivb 2024 9:20amOctober 2024 7:36am 209 umol/L0-285Published reference interval for apparently healthysubjects between age 20 and 60 is 205 - 285 umol/L and in apoorly controlled diabetic population is 228 - 563 umol/Lwith a mean of 396 umol/L.Performed at: [address], [place], [place] [id number] Director: Aleks Ferreira PhD, Phone: [phone] [facility] Reports Author Waqas Jarrell [facility] CenterAuthoredOctmurray-[facility] 2024 3:59pmReportDictated Date/TimeDictated ByStatusRadiology ReportOctober 2024 3:59pmJeffrey De La CruzUniversity Hospitals [facility] [address] [place] [address] XRay Report Signed Patient: King Lacey MR#: [id number] : 1960 Acct:[id number] Age/Sex: 65 / M ADM Date: 5 Loc: [facility] [place] Room: Type: [facility] Attending Dr: Scot Hutchison II, MD Copies to: Scot Hutchison MD~ Ordering Provider: Scot Hutchison MD Date of Service: 07/23/25 XR/XR femur RT 2V*: M17.11 - Unilateral primary osteoarthritis, right knee ([id number]) XR/XR tibia fibula RT 2V*: M17.11 - Unilateral primary osteoarthritis, right knee plain film imaging of the right femur and right tibia and fibula Preoperative assessment for right total knee arthroplasty Hip symmetric without abnormality. Femurs symmetric. No acute bony finding. Unremarkable left knee arthroplasty. Extensive right medial knee degeneration. Unremarkable tibia and fibula. Ankle mortise is symmetric adequate leg lengths. XR/XR femur RT 2V* IMPRESSION: Extensive medial right knee degeneration. Impression dictated by: Waqas Jarrell M.D. 07/23/2025 4:02 PM Dictation Location: [place] [address] Transcribed By: [facility] 07/23/25 1602 Dictated By: Waqas Jarrell DO 07/23/25 1551 Signed By: <Electronically signed by Waqas Jarrell DO in OV> 07/23/25 1602 Vital Signs Vital Reading Result Reference Range Collection Date/Time Height 66.5 [in_i] May 13, 2025 11:34nqPphozw24.00 kgAugust 2024 11:21amBP Ebidwbip599 mm[Hg]100-140August 2024 11:21amBP Vgzzmmsgb69 mm[Hg]60-100August 2024 11:21amBMI (Body Mass Index)29.0 kg/l8Elhcne 2024 11:84yoZfuqyj95.5 [in_i]July 14, 2025 4:73efAstxak84.64 kgOctober 2024 4:35pmHeart Rate 69 /ycp29-156Vvuukcg 2024 4:35pmOxygen saturation by Pulse ynnwpwok93 % 95-100Oct2024 4:35pmBP Zmydobqx069 mm[Hg]100-140October 2024 4:35pmBP Ddifwtrzo91 mm[Hg]60-100October 2024 4:35pmBMI (Body Mass Index) 28.6 kg/p1Caflgfj 2024 4:44loEoiyjs99.5 [in_i]July 23, 2025 12:06pm Dnivnx60.64 kgOctmurray-calloway county hospital 2024 12:06pmBP Lfwwdtiq524 mm[Hg]100-140October 2024 12:06pmBP Wmisxwpku33 mm[Hg]60-100October 2024 12:06pmBMI (Body Mass Index)28.6 kg/n1Ayzfyse 2024 12:06pm Advance Directives Advance Directive Response Recorded Date/ Time Advance Directives No October 28, 2023 12:48pm Insurance Providers Guarantor King Lacey Address [address] [facility] [address]Vxumseg Info.Home Phone: Coverage Status Update:2025 Payer Group Member ID Coverage Type Subscriber Relationship to Subscriber Effective Date Expiration Date [employer] [address] [address] [facility] [address] Work Phone: [phone] Olynn , M Id: [id number] [address] [facility] [address] Home Phone: [employer]/BS [id number] Olynn , M Id: [id number] [address] [facility] [address] Home Phone: Encounters Encounter Location(s) Arrival/Admit Date Discharge/Departure Date Discharge/Departure Disposition Provider(s) Departed Physician/ Provider Office Visit -[facility] Orthopedics [place] May 13, 2025 10:39am May 13, 2025 12:08pm Discharged to home care or self care (routine discharge) Peña Underwood MD Departed Physician/ Provider Office Visit -[facility] Neurology [place] July 14, 2025 4:26pm July 14, 2025 4:51pm Discharged to home care or self care (routine discharge) Lois Goode DO Departed Clinical -Pre-Surgica l Testing July 23, 2025 8:39am July 23, 2025 8:40am Discharged to home care or self care (routine discharge) Peña Underwood MD Registered Recurring -Physical Therapy [facility] 2024 10:17am Peña Underwood MDDeparted Physician/Provider [facility] 2024 11:13amOctober 2024 12:42pmDischarged to home care or self care (routine discharge)Peña Underwood MDDeparted Clinical-XRay [facility]October 2024 11:16amOctober 2024 11:17am Discharged to home care or self care (routine discharge)Peña Underwood MD Departed Physician/Provider [facility]Oct[facility] 2024 7:14amOctober 2024 7:30amDischarged to home care or self care (routine discharge)Peña Underwood MD Recent Diagnosis Onset Date Admit Date Primary osteoarthritis of right knee Unknown May 13, 2025 10:39am Hypersomnia Unknown July 14 4:26pm Low back pain at multiple sites Unknown July 14, 2025 4:26pm NANCY (obstructive sleep apnea) Unknown Oc 2024 4:26pm Snoring Unknown July 14 4:26pm Primary osteoarthritis of right knee Unknown July 23, 2025 11:13am Assessments Diagnosis Onset Date Resolution Status Admit Date Primary osteoarthritis of right knee acuteAugust 2024 10:39amHypersomniaacuteOctober 2024 4:26pmLow back pain at multiple sitesacuteOctober 2024 4:26pmOSA (obstructive sleep apnea)acuteOctober 2024 4:26pmSnoringacuteOctober 2024 4:26pmPrimary osteoarthritis of right kneeacuteOctober 2024 11:13am Plan of Treatment Author Lois Goode [facility] CenterAuthoredOctober 2024 5:74yv97-olpr-mdt male with a moderate obstructive sleep apnea leading to daytime hypersomnolence and snoring. He has an AHI of 19 and an oxygen desaturation down to 84%. This is now controlled with the use of the CPAP machine. He remains compliant with it. He is using it 97% of the time greater than 4 hours with an average nightly usage of 6 hours and 59 minutes and a residual AHI of 6.2. He does have a history of atrial fibrillation and has not been back in that. Overall he is doing well. We will send for new supplies. He has now found a mask that works very well for him. He does have a little sleep deprivation but is now getting close to 7 hours of sleep so he has felt more rested and refreshed. Patient does have a history of some low back issues and has seen Dr. George in the past. He states he has lost about an inch and a half in height. He is currently dealing with knee issues and going to have a knee replacement. However he does have pain going down his back into his left hip and down the leg. This could be a radiculopathy. Since he is already scheduled for the knee surgery I would proceed with the knee surgery rehab from that see how he feels and then he can let us know and we can potentially look further into his back with potentially a repeat MRI and an EMG bilateral lower extremity. I did parliamentary counsel him on strengthening his legs to help with the rehab of his knee doing some stretches in his hamstrings as typically those can be very tight in men and cause low back pain. He should be doing some stretching like yoga or Pilates. Back surgery is really when someone stays Uncle because of the pain and less there is neurogenic symptoms such as loss of control of bowel or bladder. He voiced understanding of this. Plan Will send for new supplies He is compliant as stated above Continues machine try to get 7 or more hours of sleep Continue with lower limb exercises to help rehab with the knee Stretches for the hamstrings and the back He could try some traction/inversion table for his back Once he is rehab from his surgery if he still having back issues he would let us know and we can order an MRI of the lumbar spine and an EMG of bilateral lower extremity The diagnosis was all discussed with the patient.?? All questions were answered and they agreed with the treatment plan.?? Patient will call if there are any new issues or questions. Future Tests Future scheduled test information is unavailable Pending Tests Test Name Ordered Date Scheduled Date Hemoglobin May 13, 2025 12:06pm Future Visits Future appointment information is unavailable Future Procedures Procedure Name Ordered Date Scheduled Date MRSA - MSSA Nasal PCR May 13, 2025 12:06pm Nicotine/Cotinine BloodAugust 2024 12:06pm Future Medications Future medication information is unavailable Patient Instructions Instruction Admit Date Low back pain in adults July 14 4:26pm
--- OUTSIDE RECORDS SUMMARY | 2025-07-25 07:40 | XMS_ITS ---
Author Organization [facility] [place] Address [address] [place] [address] Care Team Providers Care Operations Processor Name Role Phone Nabeel Hendrickson Primary Care Provider [phone] Encounters Encounter Location Date Provider Diagnosis [facility] [address] [place] [address] 07/25/2025 Nabeel Hendrickson Edema R60.9 Assessments Encounter Date Diagnosis (ICD Code) Assessment Notes Treatment Notes Treatment Clinical Notes Section Notes 07/25/2025 Edema (ICD-10 - R60.9) Plan Of Treatment Pending Test Test Name Order Date PROF 14(COMP METB) 07/25/2025 Next Appt Details Provider Name:ORAL HUBBARD , 07/29/2025 11:30:00 AM, [address] [place], [address], Progress Notes * King ADDISONDOB: [birth year] (65 yo M)Acc No.[id number]:07/25/2025 Patient:?King ADDISON :1960???Age:65 Y???Sex:MalePhone:[phone] Address:[address] [place] [address] Subjective: * Chief Complaints: * * Medical History: * Surgical History: * Hospitalization/Major Diagno stic Procedure: * Medications: Objective: * Vitals: * Physical Examination: ??? Assessment: * Assessment: 1.?Edema - R60.9 (Primary)??? Plan: * Treatment: ?LAB: PROF 14(COMP METB) * Procedure Codes: * true * Date:?Generated for Printing/Faxing/eTransmitting on:?07/25/2025 02:59 PM EDT
--- OUTSIDE RECORDS SUMMARY | 2025-07-25 14:59 | XMS_ITS | Patient Health Record ---
Author Organization [facility] in [place] Address [address] [place] [address] Care Team Providers Care Health Assessment And Treatment Teacher Name Role Phone Nabeel Hendrickson Primary Care Provider Oral Griffin Unavailable [phone] Allergies Allergen (clinical drug ingredient) Drug/Non Drug Allergy documented on EMR Reaction Allergy Type Onset Date Status cefdinir Cefdinir diarrhea Drug Allergy ActiveciprofloxacinCiprofloxacinunknown reactionDrug AllergyActive Results Component Value Reference Range Notes CBC AUTO DIFF Reviewed date:08/15/2024 02:54:14 PM Interpretation: Performing Lab: Notes/Report: [facility] , White Blood Count 3.6 4.0-11.0 10 3/uL Red Blood Count5.174.70-6.10 10 6/kTDobvjbdxqo53.214.0-18.0 g/xZCyvypsziwk12.4 42.0-54.0 %Mean Corpuscular Lnlcwi25.880.0-94.0 fLMean Corpuscular Hemoglobin 29.425.9-34.0 pgMean Corpuscular HGB Conc33.529.9-35.2 g/dLRed Cell Distribution Width13.311.0-15.0 %Platelet Lcdph658589-206 10 3/uLMean Platelet Volume9.59.5- 13.5 fLNeutrophils Percent Auto61.843.0-75.0 %Lymphocytes Percent Auto22.620.5- 60.0 %Monocytes Percent Auto10.91.7-12.0 %Eosinophils Percent Auto2.20.9-7.0 % Basophils Percent Auto1.40.2-2.0 %Immature Granulocytes Pct Auto1.10.0-0.5 % Neutrophils Absolute Auto2.21.4-6.5 10 3/uLLymphocytes Absolute Auto0.81.2-3.8 10 3/uLMonocytes Absolute Auto0.40.3-0.8 10 3/uLEosinophils Absolute Auto0.10.0- 0.7 10 3/uLBasophils Absolute Auto0.10.0-0.1 10 3/uLImmature Granulocytes Abs Auto0.040.00-0.03 10 3/uLPerforming Lab:see noteML - [facility] LBCBC AUTO DIFF Reviewed date:12/24/2024 04:34:09 PM Interpretation: Performing Lab: Notes/Report: [facility] ,White Blood Count3.64.0-11.0 10 3/uLRed Blood Count5.124.70-6.10 10 6/uL Kptvyptjuh87.714.0-18.0 g/yBGvlrmluqmc55.942.0-54.0 %Mean Corpuscular Noyxwe53.7 80.0-94.0 fLMean Corpuscular Kjxxlahckh37.725.9-34.0 pgMean Corpuscular HGB Conc 35.029.9-35.2 g/dLRed Cell Distribution Width13.411.0-15.0 %Platelet Reuss052 150-450 10 3/uLMean Platelet Volume9.69.5-13.5 fLNeutrophils Percent Auto59.6 43.0-75.0 %Lymphocytes Percent Auto27.520.5-60.0 %Monocytes Percent Auto9.51.7- 12.0 %Eosinophils Percent Auto2.00.9-7.0 %Basophils Percent Auto1.10.2-2.0 % Immature Granulocytes Pct Auto0.30.0-0.5 %Neutrophils Absolute Auto2.11.4-6.5 10 3/uLLymphocytes Absolute Auto1.01.2-3.8 10 3/uLMonocytes Absolute Auto0.30.3-0.8 10 3/uLEosinophils Absolute Auto0.10.0-0.7 10 3/uLBasophils Absolute Auto0.00.0- 0.1 10 3/uLImmature Granulocytes Abs Auto0.010.00-0.03 10 3/uLPerforming Lab:see noteML - [facility] LBCBC AUTO DIFF Reviewed date:05/13/2025 08:28:06 PM Interpretation: Performing Lab: Notes/Report: [facility] ,White Blood Count3.54.0-11.0 10 3/uLRed Blood Count5.134.70-6.10 10 6/uL Biqanazbeg93.514.0-18.0 g/nRVrcayiltwa76.442.0-54.0 %Mean Corpuscular Ouqjcb74.5 80.0-94.0 fLMean Corpuscular Qiayzbuwwu69.225.9-34.0 pgMean Corpuscular HGB Conc 34.129.9-35.2 g/dLRed Cell Distribution Width13.211.0-15.0 %Platelet Ppckc506 150-450 10 3/uLMean Platelet Volume9.89.5-13.5 fLNeutrophils Percent Auto63.8 43.0-75.0 %Lymphocytes Percent Auto23.920.5-60.0 %Monocytes Percent Auto8.91.7- 12.0 %Eosinophils Percent Auto2.00.9-7.0 %Basophils Percent Auto1.10.2-2.0 % Immature Granulocytes Pct Auto0.30.0-0.5 %Neutrophils Absolute Auto2.21.4-6.5 10 3/uLLymphocytes Absolute Auto0.81.2-3.8 10 3/uLMonocytes Absolute Auto0.30.3-0.8 10 3/uLEosinophils Absolute Auto0.10.0-0.7 10 3/uLBasophils Absolute Auto0.00.0- 0.1 10 3/uLImmature Granulocytes Abs Auto0.010.00-0.03 10 3/uLPerforming Lab:see noteML - [facility] LBGLYCOHEMOGLOBIN A1C Reviewed date:05/13/2025 08:28:06 PM Interpretation: Performing Lab: Notes/Report: [facility] ,Glycohemoglobin A1C5.14.5-6.2 % ADA RECOMMENDED LIMIT 4.0 - 6.0 ADA THERAPEUTIC TARGET < 7.0 ACTION SUGGESTED > 7.0 Estimated Average Loeqwys568Umsjtmrazo Lab:see note - [facility] LB PROF CHEM 8 (BAS METB) Reviewed date:05/13/2025 08:28:06 PM Interpretation: Performing Lab: Notes/Report: [facility] ,Qbadta803596-429 mmol/LPotassium4.43.5-5.1 mmol/SAptmhhsq51362-235 mmol/LCarbon Akdwutc97.221.0-32.0 mmol/LAnion Gap9.0Veeiuld8213-647 mg/dLBlood Urea Nitrogen 19.07.0-18.0 mg/dLCreatinine1.120.70-1.30 mg/dLEstimated GFR ( Pretty>60 >=60 mL/min/1.73m 2Estimated GFR (Non- Glenny>60>=60 mL/min/1.73m 2BUN Creatinine Ratio17.1Sshewng0.28.5-10.1 mg/dLPerforming Lab:see noteML - [facility] LBXR pelvis 1-2V Reviewed date:05/13/2025 08:28:06 PM Interpretation: Performing Lab: Notes/Report: Source Facility: [place] [address] [place] [address] XRay Report Signed Patient: KING DAVIS MR#: [id number] : 1960 Acct:[id number] Age/Sex: 65 / M ADM Date: 05/13/25 Loc: RAD Attending Dr: Nikita Briones M.D. Ordering Physician: Nikita Briones Date of Service: 05/13/25 Procedure(s): XR pelvis 1-2V Accession Number(s): [id number] cc: Ryan Hendrickson M.D.; Nikita Briones [place] [address] Patient Name: KING DAVIS MRN: [id number] date: 1960 Sex: M Assigned Patient [facility]: [facility] Current Patient Location: LAB Accession/Order Number: [id number] Exam Date: 05/13/2025 12:44 Report Date: 05/13/2025 12:45 At the request of: NIKITA BRIONES MD Procedure: XR pelvis 1-2V AP PELVIS: [...] Arzate M.D. 05/13/2025 12:45 PM Dictation Location: [place] [address] Electronically authenticated by: [id number] Y Date: 05/13/2025 12:45 Dictated By: Michael Arzate M.D. Signed By: 05/13/25 1248 DD/ 1245 TD/TT: Printer Assistant:VITAMIN D 25 [place] Reviewed date:05/13/2025 08:28:06 PM Interpretation: Performing Lab: Notes/Report: [facility] ,Vitamin D78.3 <20 ng/mL Vit D deficient 20-<30 ng/mL Vit D insufficient 30-100 ng/mL Vit D sufficient >100 ng/mL Potential Toxicity Performing Lab:see noteML - [facility] LBLAB TESTING Reviewed date:05/21/2025 06:34:22 PM Interpretation: Performing Lab: Notes/Report: [id number] Nicotine and Metabolite, Quantitative, Plasma, Whole Blood, [facility] ,Miscellaneous TestCOMMENT. Test Ordered: [id number] Nicotine and Metabolite, Quant Nicotine <1.0 ng/mL BN Reference Range: . This test was developed and its performance characteristics determined by [facility]. It has not been cleared or approved by the Food and Drug Administration. Nicotine levels greater than 2.0 are consistent with the use of tobacco or tobacco cessation products. Cotinine <1.0 ng/mL BN Reference Range: . This test was developed and its performance characteristics determined by [facility]. It has not been cleared or approved by the Food and Drug Administration. Cotinine levels greater than 20.0 are consistent with the use of tobacco or tobacco cessation products. Performed at: [facility] Lab[address] [id number] [employer] Laborer: Nicole Calles MD, Phone: [phone] Performed at: [facility] Lab[address] [id number] [employer] Laborer: Aleks Ferreira PhD, Phone: [phone] Performing Lab:see noteNEW [facility] LBFREE T3 Reviewed date:06/11/2025 12:35:21 PM Interpretation: Performing Lab: Notes/Report: [facility] ,Free T31.862.18-3.98 pg/mLPerforming Lab:see noteML - [facility] FREE T4 Reviewed date:06/11/2025 12:35:21 PM Interpretation: Performing Lab: Notes/Report: [facility] ,Free T40.740.76-1.46 ng/dLPerforming Lab:see noteML - [facility] LB TSH Reviewed date:06/11/2025 12:35:21 PM Interpretation: Performing Lab: Notes/Report: [facility] ,Thyroid Stimulating Hormone1.0000.358-3.740 uIU/mLPerforming Lab:see note - [facility] LBALBUMIN Reviewed date:05/13/2025 08:28:06 PM Interpretation: Performing Lab: Notes/Report: [facility] ,Albumin Level4.23.4-5.0 g/dLPerforming Lab:see note - [facility] LBLDH (Not yet reviewed by provider) Interpretation: Performing Lab: Notes/Report: [facility] ,Lactate Vljtbdwijygvi60773-875 U/LPerforming Lab:see note - [facility] LBCA echo doppler complete Reviewed date:02/13/2025 08:22:32 PM Interpretation: Performing Lab: Notes/Report: Source Facility: [facility]-[address] [place] [address] [place] [address] Cardiology Report Signed Patient: KING DAVIS MR#: [id number] : 1960 Acct:[id number] Age/Sex: 64 / M ADM Date: 02/12/25 Loc: CARD Attending Dr: George William M.D. Ordering Physician: George William M.D. Date of Service: 02/12/25 Procedure(s): CA echo doppler complete Accession Number(s): [id number] cc: George William M.D.; Ryan Hendrickson M.D. Patient Name: KING DAVIS MR#: [id number] : 1960 Exam Date: 02/12/2025 Ordering Doctor: DR GEORGE WLILIAM M.D. ECHOCARDIOGRAM REPORT PROCEDURE: CA ECHO DOPPLER [...] HUANG Signed By: 02/12/251925 DD/ 24 TD/TT: Printer Assistant:Immunoglobulin G, Qn, Serum (Not yet reviewed by provider) Interpretation: Performing Lab: Notes/Report: [facility] ,Immunoglobulin G, Kr763989-8832 mg/dL Performed at: [address] [id number] [employer] Laborer: Aleks Ferreira PhD, Phone: [phone] Performing Lab:see [facility] LBPROF CHEM 8 (BAS METB) Reviewed date:02/12/2025 05:51:29 PM Interpretation: Performing Lab: Notes/Report: [facility] ,Ljvutl400433-984 mmol/LPotassium4.63.5-5.1 mmol/ISylvfijz48342-261 mmol/LCarbon Klgiwxy12.921.0-32.0 mmol/LAnion Gap11.8Ohiffgv2556-678 mg/dLBlood Urea Ijzygmhw57.07.0-18.0 mg/dLCreatinine1.090.70-1.30 mg/dLEstimated GFR ( Pretty>60>=60 mL/min/1.73m 2Estimated GFR (Non- Glenny>60>=60 mL/min/1.73m 2BUN Creatinine Ratio22.0Vyaxafs6.28.5-10.1 mg/dLPerforming Lab:see noteML - [facility] LBImmunoglobulin G, Qn, Serum Reviewed date:02/13/2025 08:22:32 PM Interpretation: Performing Lab: Notes/Report: [facility] ,Immunoglobulin G, Ee252111-3955 mg/dL Performed at: [address] [id number] [employer] Laborer: Aleks Ferreira PhD, Phone: [phone] Performing Lab:see [facility] LBPROF 14(COMP METB) Reviewed date:02/13/2025 08:22:32 PM Interpretation: Performing Lab: Notes/Report: [facility] ,Akmzqa614392-237 mmol/LPotassium4.33.5-5.1 mmol/ANzfkpwmu23874-286 mmol/LCarbon Idomfjy91.321.0-32.0 mmol/LAnion Gap14.4Bfjtqnf7919-868 mg/dLBlood Urea Iisbmxzj31.07.0-18.0 mg/dLCreatinine1.230.70-1.30 mg/dLEstimated GFR ( Pretty>60>=60 mL/min/1.73m 2Estimated GFR (Non- Ame59>=60 mL/min/1.73m 2 BUN Creatinine Ratio20.8Vijhbck6.08.5-10.1 mg/dLBilirubin Total0.90.2-1.0 mg/dL Aspartate Amino Uvnflkahcbl8430-72 U/LAlanine Ahwoowfznfphlwwe7221-55 U/L Alkaline Rthfawpyzcd7685-120 U/LTotal Protein6.56.4-8.2 g/dLAlbumin Level3.83.4- 5.0 g/dLGlobulin2.7Albumin Globulin Ratio1.4Performing Lab:see noteML - [facility] LBLDH Reviewed date:02/13/2025 08:22:32 PM Interpretation: Performing Lab: Notes/Report: [facility] ,Lactate Hyoddzfmbxihv59294-360 U/LPerforming Lab:see noteML - [facility] LBCBC AUTO DIFF Reviewed date:02/13/2025 08:22:32 PM Interpretation: Performing Lab: Notes/Report: [facility] ,White Blood Count3.94.0-11.0 10 3/uLRed Blood Count4.814.70-6.10 10 6/uL Hqltvmansg96.714.0-18.0 g/yTFwgtdwkkrz20.042.0-54.0 %Mean Corpuscular Rtyyaj62.3 80.0-94.0 fLMean Corpuscular Ndpybryqsp82.625.9-34.0 pgMean Corpuscular HGB Conc 35.029.9-35.2 g/dLRed Cell Distribution Width13.811.0-15.0 %Platelet Otjrm033 150-450 10 3/uLMean Platelet Volume9.29.5-13.5 fLNeutrophils Percent Auto66.0 43.0-75.0 %Lymphocytes Percent Auto20.320.5-60.0 %Monocytes Percent Auto10.91.7- 12.0 %Eosinophils Percent Auto2.00.9-7.0 %Basophils Percent Auto0.80.2-2.0 % Immature Granulocytes Pct Auto0.00.0-0.5 %Neutrophils Absolute Auto2.61.4-6.5 10 3/uLLymphocytes Absolute Auto0.81.2-3.8 10 3/uLMonocytes Absolute Auto0.40.3- 0.8 10 3/uLEosinophils Absolute Auto0.10.0-0.7 10 3/uLBasophils Absolute Auto0.0 0.0-0.1 10 3/uLImmature Granulocytes Abs Auto0.000.00-0.03 10 3/uLPerforming Lab:see noteML - [facility] LBPROF CHEM 8 (BAS METB) Reviewed date:12/24/2024 04:34:09 PM Interpretation: Performing Lab: Notes/Report: [facility] ,Ehljtj752828-709 mmol/LPotassium4.63.5-5.1 mmol/BMvmxiscp70909-106 mmol/LCarbon Jowqyuw79.521.0-32.0 mmol/LAnion Gap12.8Qqpccsz3927-950 mg/dLBlood Urea Lzkvmngk89.07.0-18.0 mg/dLCreatinine1.220.70-1.30 mg/dLEstimated GFR ( Pretty>60>=60 mL/min/1.73m 2Estimated GFR (Non- Ame60>=60 mL/min/1.73m 2 BUN Creatinine Ratio20.5Pcpmtvz9.28.5-10.1 mg/dLPerforming Lab:see noteML - [facility] LBPROF CHEM 8 (BAS METB) Reviewed date:11/20/2024 12:37:15 PM Interpretation: Performing Lab: Notes/Report: [facility] ,Cjsfyv118223-116 mmol/LPotassium4.73.5-5.1 mmol/DDgymbkhb55144-139 mmol/LCarbon Fgjxmnu17.421.0-32.0 mmol/LAnion Gap11.7Xgnxsmi9249-857 mg/dLBlood Urea Sqvaxncr70.07.0-18.0 mg/dLCreatinine1.140.70-1.30 mg/dLEstimated GFR ( Pretty>60>=60 mL/min/1.73m 2Estimated GFR (Non- Glenny>60>=60 mL/min/1.73m 2BUN Creatinine Ratio21.5Cvxucsy6.48.5-10.1 mg/dLPerforming Lab:see noteML - [facility] LBCBC AUTO DIFF Reviewed date:11/20/2024 12:37:15 PM Interpretation: Performing Lab: Notes/Report: [facility] ,White Blood Count3.54.0-11.0 10 3/uLRed Blood Count5.114.70-6.10 10 6/uL Xuxsbuikht44.314.0-18.0 g/jFUiigbkcwkb07.942.0-54.0 %Mean Corpuscular Qcautk75.9 80.0-94.0 fLMean Corpuscular Mgwmkgmozd30.925.9-34.0 pgMean Corpuscular HGB Conc 34.129.9-35.2 g/dLRed Cell Distribution Width13.411.0-15.0 %Platelet Prord226 150-450 10 3/uLMean Platelet Volume9.19.5-13.5 fLNeutrophils Percent Auto62.2 43.0-75.0 %Lymphocytes Percent Auto25.620.5-60.0 %Monocytes Percent Auto8.81.7- 12.0 %Eosinophils Percent Auto2.00.9-7.0 %Basophils Percent Auto1.10.2-2.0 % Immature Granulocytes Pct Auto0.30.0-0.5 %Neutrophils Absolute Auto2.21.4-6.5 10 3/uLLymphocytes Absolute Auto0.91.2-3.8 10 3/uLMonocytes Absolute Auto0.30.3- 0.8 10 3/uLEosinophils Absolute Auto0.10.0-0.7 10 3/uLBasophils Absolute Auto0.0 0.0-0.1 10 3/uLImmature Granulocytes Abs Auto0.010.00-0.03 10 3/uLPerforming Lab:see noteML - [facility] LBPSA Reviewed date:10/21/2024 08:25:24 PM Interpretation: Performing Lab: Notes/Report: [facility] ,Prostate Specific Antigen Dx0.74<=4.00 ng/mLPerforming Lab:see noteML - [facility] LBManual Differential Reviewed date:02/13/2025 08:22:33 PM Interpretation: Performing Lab: Notes/Report: [facility] ,Segmented Neutrophils % Kipzoh95.043.0-75.0Lymphocytes Percent Onhdua09.020.5- 60.0 %Monocytes Percent Manual2.01.7-12.0 %Eosinophils Percent Manual0.00.9-7.0 %Basophils Percent Manual0.00.2-2.0 %Segmented Neut Absolute Manual3.021.4-6.5 10 3/uLLymphocytes Absolute Manual1.001.20-3.80 10 3/uLMonocytes Absolute Manual 0.080.30-0.80 10 3/uLEosinophils Absolute Manual0.000.00-0.70 10 3/uLBasophils Abs Manual0.000.00-0.10 10 3/uLPerforming Lab:see noteML - [facility] LBCBC AUTO DIFF Reviewed date:02/13/2025 08:22:33 PM Interpretation: Performing Lab: Notes/Report: [facility] ,White Blood Count4.24.0-11.0 10 3/uLRed Blood Count5.214.70-6.10 10 6/uL Zmrtpnzhhm54.814.0-18.0 g/wUZgnbhpwugu02.142.0-54.0 %Mean Corpuscular Nzcfng53.5 80.0-94.0 fLMean Corpuscular Bszrjujhzd86.325.9-34.0 pgMean Corpuscular HGB Conc 34.329.9-35.2 g/dLRed Cell Distribution Width13.311.0-15.0 %Platelet Vnmjn431 150-450 10 3/uLMean Platelet Volume9.59.5-13.5 fLPerforming Lab:see noteML - [facility] LBPROF CHEM 8 (BAS METB) Reviewed date:08/15/2024 02:54:14 PM Interpretation: Performing Lab: Notes/Report: [facility] ,Dotrco575884-767 mmol/LPotassium4.13.5-5.1 mmol/CBcvskucv89214-234 mmol/LCarbon Qmmlsnb80.121.0-32.0 mmol/LAnion Gap14.8Vcpuffk6267-169 mg/dLBlood Urea Ebfuamjz51.07.0-18.0 mg/dLCreatinine1.220.70-1.30 mg/dLEstimated GFR ( Pretty>60>=60 mL/min/1.73m 2Estimated GFR (Non- Ame60>=60 mL/min/1.73m 2 BUN Creatinine Ratio18.6Jfhdxkk7.48.5-10.1 mg/dLPerforming Lab:see noteML - [facility] LBXR knee RT 4V Reviewed date:05/13/2025 08:28:06 PM Interpretation: Performing Lab: Notes/Report: Source Facility: [facility]-[address] [place] [address] [place] [address] XRay Report Signed Patient: KING DAVIS MR#: [id number] : 1960 Acct:[id number] Age/Sex: 65 / M ADM Date: 05/13/25 Loc: RAD Attending Dr: Nikita Briones M.D. Ordering Physician: Nikita Briones Date of Service: 05/13/25 Procedure(s): XR knee RT 4V Accession Number(s): [id number] cc: Ryan Hendrickson M.D.; Nikita Briones [place] [address] Patient Name: KING DAVIS MRN: [id number] date: 1960 Sex: M Assigned Patient Location: RAD Current Patient Location: RAD Accession/Order Number: [id number] Exam Date: 05/13/2025 12:02 Report Date: 05/13/2025 12:04 At the request of: NIKITA BRIONES MD Procedure: XR knee RT 4V RIGHT KNEE 3 views CLINICAL HISTORY: m25.561 Pain in right knee COMPARISON: None FINDINGS: Anterior knee soft tissue swelling. Severe medial compartment and eywj-ue-uphueqbr patellofemoral marker and degenerative changes. Mild lateral compartment degenerative change. Calcific densities within the suprapatellar region question synovial. XR/XR knee RT 4V IMPRESSION: Anterior knee soft tissue swelling. Severe medial compartment degenerative changes. Impression dictated by: Michael Arzate M.D. 05/13/2025 12:04 PM Dictation Location: [place] [address] Electronically authenticated by: [id number] Y Date: 05/13/2025 12:04 Dictated By: Michael Arzate M.D. Signed By: 05/13/25 1206 DD/ 1204 TD/TT: Printer Assistant:MRSA Screening Culture Reviewed date:05/15/2025 04:24:32 PM Interpretation: Performing Lab: Notes/Report: [facility] ,MRSA Screening CultureSee Below For Report MRSA Screening Culture MRSA Screening CultureNegative MRSA Screening Culture MRSA Screening CulturePerformed at: - [facility] [place] MRSA Screening Culture MRSA Screening [address] [place], [place] [id number] MRSA Screening Culture MRSA Screening CultureLab Director: Aleks Ferreira PhD, Phone: [phone] MRSA Screening Culture Performing Lab:see note LC - [facility] LB SEE REPORT - [place] Id information not found for OBX-specific content producer legend NM gabo perf SPECT rest str Reviewed date:05/29/2025 03:59:28 PM Interpretation: Performing Lab: Notes/Report: Source Facility: [place] [address] [place] [address] Nuclear Medicine Report Signed Patient: KING DAVIS MR#: [id number] : 1960 Acct:[id number] Age/Sex: 65 / M ADM Date: 05/29/25 Loc: NM Attending Dr: George William M.D. Ordering Physician: George William M.D. Date of Service: 05/29/25 Procedure(s): NM gabo perf SPECT rest str Accession Number(s): [id number] cc: George William M.D.; Ryan Hendrickson M.D. Patient Name: KING DAVIS MR#: [id number] : 1960 Exam Date: 05/29/2025 Ordering Doctor: DR GEORGE WILLIAM M.D. RADIOLOGY REPORT PROCEDURE: NM GABO PERF SPECT REST STR COMPARISON: None. INDICATIONS: PRE PROCEDURE CARDIOVASCULAR EXAM TECHNIQUE: Exam Description: Stress/Rest one day protocol gated SPECT Rest Imagin.9 mCi Tc-99m Cardiolite IV on 05/29/2025 Stress Imaging 30.6 mCi Tc-99m Cardiolite IV on 05/29/2025 Exercise Protocol: 0.4 mg Lexiscan given IV Heart Rate (bpm): Rest: 44 Max: 75 PMHR: 48 Blood Pressure: Rest: 117/68 Max: 135/75 Symptoms: Rest and peak stress ECG findings were pending, and the exercise portion of the study was pending per attending physician [facility]. For more details, please see separate cardiac stress test report. FINDINGS: QUALITY OF STUDY: Good PERFUSION DEFECT: None LOCATION: N/A SIZE: N/A SEVERITY: N/A TYPE: N/A WALL MOTION: Normal wall motion LV SIZE: 115 mL. TID / TCD: 1.0 LVEF: Calculated EF 65%. SUMMARY: Myocardial perfusion imaging study is normal CONCLUSION: 1. Myocardial perfusion is normal 2. Global left ventricular systolic function is normal 3. No significant transient ischemic dilatation Dictated by: George William M.D. on 05/29/2025 at 15:51 Approved by: George William M.D. on 05/29/2025 at 15:53 Dictated By: George William M.D. Signed By: 05/29/25 1554 DD/ 1553 TD/TT: Printer Assistant:CBC AUTO DIFF (Not yet reviewed by provider) Interpretation: Performing Lab: Notes/Report: [facility] ,White Blood Count5.14.0-11.0 10 3/uLRed Blood Count4.744.70-6.10 10 6/uL Tjrnnofviq58.514.0-18.0 g/kSOjfhnznoop23.142.0-54.0 %Mean Corpuscular Ruovxt96.8 80.0-94.0 fLMean Corpuscular Xntxvfybia68.625.9-34.0 pgMean Corpuscular HGB Conc 34.429.9-35.2 g/dLRed Cell Distribution Width13.011.0-15.0 %Platelet Rambz260 150-450 10 3/uLMean Platelet Volume9.69.5-13.5 fLNeutrophils Percent Auto72.2 43.0-75.0 %Lymphocytes Percent Auto18.320.5-60.0 %Monocytes Percent Auto6.71.7- 12.0 %Eosinophils Percent Auto1.60.9-7.0 %Basophils Percent Auto0.80.2-2.0 % Immature Granulocytes Pct Auto0.40.0-0.5 %Neutrophils Absolute Auto3.71.4-6.5 10 3/uLLymphocytes Absolute Auto0.91.2-3.8 10 3/uLMonocytes Absolute Auto0.30.3- 0.8 10 3/uLEosinophils Absolute Auto0.10.0-0.7 10 3/uLBasophils Absolute Auto0.0 0.0-0.1 10 3/uLImmature Granulocytes Abs Auto0.020.00-0.03 10 3/uLPerforming Lab:see noteML - [facility] LBPROF 14(COMP METB) (Not yet reviewed by provider) Interpretation: Performing Lab: Notes/Report: [facility] ,Furdmg256160-653 mmol/LPotassium4.53.5-5.1 mmol/HViiikysv04915-068 mmol/LCarbon Vyuvgbq69.221.0-32.0 mmol/LAnion Gap10.6Ujqbpdh0952-966 mg/dLBlood Urea Hpolplqy02.07.0-18.0 mg/dLCreatinine1.360.70-1.30 mg/dLEstimated GFR ( Pretty>60>=60 mL/min/1.73m 2Estimated GFR (Non- Ame52>=60 mL/min/1.73m 2 BUN Creatinine Ratio16.5Yvwdjjj6.28.5-10.1 mg/dLBilirubin Total0.40.2-1.0 mg/dL Aspartate Amino Juqfummeirq3128-45 U/LAlanine Nxphssroimhuzciz1001-09 U/L Alkaline Rueuhxicgby4872-668 U/LTotal Protein6.66.4-8.2 g/dLAlbumin Level3.73.4- 5.0 g/dLGlobulin2.9Albumin Globulin Ratio1.3Performing Lab:see noteML - [facility] LBTestosterone Reviewed date:10/22/2024 04:45:30 PM Interpretation: Performing Lab: Notes/Report: [facility] ,Zfqbjtftlidb379892-172 ng/dL Adult male reference interval is based on a population of healthy nonobese males (BMI <30) between 19 and 39 years old. stephania Salinas.al. JCEM 2017,102;7707-8302. PMID: 24639973. Performed at: [address] [id number] [employer]: Aleks Ferreira PhD, Phone: [phone] Performing Lab:[facility] LBImmunoglobulin G, Qn, Serum Reviewed date:02/13/2025 08:22:32 PM Interpretation: Performing Lab: Notes/Report: [facility] ,Immunoglobulin G, Ne543903-7482 mg/dL Performed at: [address] [id number] [employer]: Aleks Ferreira PhD, Phone: [phone] Performing Lab:see [facility] LBPROF 14(COMP METB) Reviewed date:02/13/2025 08:22:32 PM Interpretation: Performing Lab: Notes/Report: [facility] ,Whbmcv123545-941 mmol/LPotassium4.93.5-5.1 mmol/OLjpmigtu14541-805 mmol/LCarbon Dehvtss42.221.0-32.0 mmol/LAnion Gap10.4Sqtwixh8668-017 mg/dLBlood Urea Ushgdcwb10.07.0-18.0 mg/dLCreatinine1.190.70-1.30 mg/dLEstimated GFR ( Pretty>60>=60 mL/min/1.73m 2Estimated GFR (Non- Glenny>60>=60 mL/min/1.73m 2BUN Creatinine Ratio25.9Meofzmc0.68.5-10.1 mg/dLBilirubin Total0.50.2-1.0 mg/dL Aspartate Amino Lojscjzzqat0503-18 U/LAlanine Jxgrtsbcntoezpaf6748-38 U/L Alkaline Quqvsaolwrp2469-531 U/LTotal Protein7.36.4-8.2 g/dLAlbumin Level4.43.4- 5.0 g/dLGlobulin2.9Albumin Globulin Ratio1.5Performing Lab:see noteML - [facility] Reviewed date:02/13/2025 08:22:32 PM Interpretation: Performing Lab: Notes/Report: [facility] ,Lactate Dhasstenjhdzn01942-228 U/LPerforming Lab:see noteML - [facility] LB Reason For Referral Diagnosis 1 Foreign body (FB) in soft tissue (M79.5) Referral Organization [facility] Referring Provider First Name Nabeel Referring Provider Last Name Madhavi Referring Provider Speciality [facility] amelie Referred Provider Ryan Yang Referred Provider Specialty General Surg christie Referral Priority Routine Medications Medication SIG (Take, Route, Frequency, Duration) Notes Start Date End Date Status Eliquis 5 MG TAKE 1 TABLET BY MOUTH TWICE A D AY FOR 30 DAYS; Duration: 90 ActiveLisinopril 10 MG1 tablet Orally Once a dayActiveAmoxicillin-Pot Clavulanate 875-125 MG1 tablet Orally every 12 hrs; Duration: 10 days06/20/2025 ActiveTamsulosin HCl 0.4 MG1 capsule Orally Once a day; Duration: 30 daysActive Levothyroxine Sodium 150 MCG1 tablet in the morning on an empty stomach Orally Once a day; Duration: 90 daysActiveLiothyronine Sodium 25 MCGTAKE 1/2 TABLET BY MOUTH EVERY DAY; Duration: 90 daysActive Immunizations Vaccine Route Administration Date Status Comme nts DTP - historic Unknown 09/04/2021 Administered Flu, Fluzone (97129) 6 mos+, single-dose syringe/vial ()Unknown 06/30/20200747EzwbnsubahqmIBRN-BIN-8 (COVID 19 Moderna - Booster 0.25mL)Unknown 2367UmkcsbfcfymrVMCP-JXA-9 (COVID 19 Pfizer 30mcg/0.3mL)Yhptdhj8111/24/2019 GktcphftegabVHUC-GTN-1 (COVID 19 Pfizer 30mcg/0.3mL)Ptldfgv7811/30/2020 BektfxqkvlnlWCIS-YJQ-6 (COVID 19 Pfizer 30mcg/0.3mL)Yickyol8612/22/2020 AdministeredZOSTER (SHINGLES) VACCINE (HZV)Bowswlr3104/05/2022dministeredZOSTER (SHINGLES) VACCINE (HZV)Ggyshyi78/12/2022Administered Social History Tobacco Use: Social History Observation Description Date Details (start date - stop date) Never Smoker NA - NA Tobacco Use/Smoking Question Answer Notes Patient is a nonsmoker Patient is anonsmokerAlcohol Screen (Audit-C) Question Answer Notes Did you have a drink containing alcohol in the p ast year? Yes Did you have a drink containing alcohol in the past year?YesHow often did you have 6 or more drinks on one occasion in the past year?Never (0 point)How many drinks did you have on a typical day when you were drinking in the past year?1 or 2 drinks (0 point)How many drinks did you have on a typical day when you were drinking in the past year?3 or 4 drinks (1 point)How often did you have a drink containing alcohol in the past year?Weekly (3 points)How often did you have a drink containing alcohol in the past year?Weekly (3 points)Avkxhz8Gsnpei3 InterpretationNegativeInterpretationPositiveAUDIT-C (Standard) Question Answer Notes Did you have a drink containing alcohol in the p ast year? Yes How often did you have a drink containing alcohol in the past year?Monthly or less (1 point)How many drinks did you have on a typical day when you were drinking in the past year?1 or 2 drinks (0 point)How often did you have six or more drinks on one occasion in the past year?Never (0 point)Points1 InterpretationNegative Problems Problem Type SNOMED Code ICD Code Onset Dates Problem Status W/U Status Risk Notes Problem Localized, primary o steoarthritis of the shoulder region (509481899) Primary osteoarthritis, right shoulder (M19.011) ActiveconfirmedProblemEruptive melanocytic nevi (843937860)Melanocytic nevi, unspecified (D22.9)ActiveconfirmedProblemLeukopenia (63762515)Decreased white blood cell count, unspecified (D72.819)ActiveconfirmedProblemVitamin D deficiency (45259514)Vitamin D deficiency, unspecified (E55.9)Activeconfirmed ProblemSleep apnea (64230911)Sleep apnea, unspecified (G47.30)Activeconfirmed ProblemImpacted cerumen (88639422)Impacted cerumen, bilateral (H61.23)Active confirmedProblemAtrial fibrillation (53873847)Unspecified atrial fibrillation (I48.91)ActiveconfirmedProblemCerebrovascular disease (14721584)Other cerebrovascular disease (I67.89)ActiveconfirmedProblemRaynaud's disease (885790920)Raynaud's syndrome without gangrene (I73.00)ActiveconfirmedProblem Orthostatic hypotension (36376993)Orthostatic hypotension (I95.1)Activeconfirmed ProblemLocalized, primary osteoarthritis of the shoulder region (757909441) Primary osteoarthritis, left shoulder (M19.012)ActiveconfirmedProblemPain of right shoulder region (finding) (3727436199)Pain in right shoulder (M25.511) ActiveconfirmedProblemShoulder joint pain (720597055)Pain in left shoulder (M25.512)ActiveconfirmedProblemScoliosis deformity of spine (393823874)Other forms of scoliosis, site unspecified (M41.80)ActiveconfirmedProblemDegeneration of thoracic intervertebral disc (04191385)Other intervertebral disc degeneration, 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)ActiveconfirmedProblemCervicalgia (91399731)Cervicalgia (M54.2)ActiveconfirmedProblemDecrease in height (25572208) Loss of height (R29.890)ActiveconfirmedProblemAphasia (81344534)Aphasia (R47.01) ActiveconfirmedProblemContusion and laceration of left cerebrum with loss of consciousness greater than 24 hours without return to pre-existing conscious level with patient surviving, subsequent encounter (S06.326D)Activeconfirmed ProblemAtrial fibrillation (06794662)Atrial fibrillation (I48.91)Activeconfirmed ProblemSpinal stenosis (11144810)Spinal stenosis (M48.00)ActiveconfirmedProblem Edema (61246931)Edema (R60.9)ActiveconfirmedProblemHypothyroid (14212958) Hypothyroid (E03.9)ActiveconfirmedProblemAttention deficit disorder (38968436) ADD (attention deficit disorder) (F90.0)ActiveconfirmedProblemSleep apnea (17324981)Sleep apnea (G47.30)ActiveconfirmedProblemEczema (60439671)Eczema (L30.9)ActiveconfirmedProblemCerebrovascular disease (18665306)Other cerebrovascular disease (I67.89)ActiveconfirmedProblemAcute combined systolic and diastolic heart failure (264868201352879)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)Activeconfirmed ProblemLumbar radiculopathy (312681173)Lumbar radiculopathy (M54.16)Active confirmedProblemPain in limb (27211234)Foot pain, left (M79.672)Activeconfirmed ProblemOsteoarthritis of knee (128618274)Osteoarthritis of right knee (M17.9) ActiveconfirmedProblemWell adult (291491143)Well adult (Z00.00)Activeconfirmed ProblemDegenerative disc disease (01063519)DDD (degenerative disc disease), lumbar (M51.36)ActiveconfirmedProblemThrombocytopenia (546815347) Thrombocytopenia (D69.6)ActiveconfirmedProblemVitamin B12 deficiency (non anemic) (29751773)B12 deficiency (E53.8)ActiveconfirmedProblemDysarthria (7940663)Dysarthria (R47.1)ActiveconfirmedProblemDegeneration of cervical intervertebral disc (88560561)Degenerative cervical disc (M50.30)Activeconfirmed ProblemNeutropenia (003574034)Neutropenia (D70.9)ActiveconfirmedProblemPain in left foot (216175102309453)Left foot pain (M79.672)ActiveconfirmedProblem Leukopenia (90526575)Leukopenia (D72.819)ActiveconfirmedProblemObstructive sleep apnea syndrome (12494611)Moderate obstructive sleep apnea (G47.33)Active confirmedProblemAsthma without status asthmaticus (69576740)AB (asthmatic bronchitis) (J45.909)ActiveconfirmedProblemSeborrheic keratosis (13322307) Keratosis, seborrheic (L82.1)ActiveconfirmedProblemHypothyroidism (95859123) Hypothyroidism, unspecified type (E03.9)ActiveconfirmedProblemShoulder impingement syndrome (302921541)Shoulder impingement syndrome (M75.40)Active confirmedProblemVitamin B deficiency (19310504)Deficiency of vitamin B12 (E53.8) ActiveconfirmedProblemAccelerated essential hypertension (70450521)Accelerated essential hypertension (I10)ActiveconfirmedProblemAttention deficit disorder (96632365)ADD (attention deficit disorder) (F98.8)ActiveconfirmedProblem Arthritis of both knees (9106935742615113)Arthritis of both knees (M17.0)Active confirmedProblemOsteoarthritis of knee (643504098)Osteoarthritis of knee, unilateral (M17.10)ActiveconfirmedProblemDiastolic heart failure (921250856)CHF (congestive heart failure), NYHA class I, unspecified failure chronicity, diastolic (I50.30)ActiveconfirmedProblemLow back pain (130121622)Low back pain, unspecified (M54.50)Activeconfirmed Vital Signs Blood pressure diastolic 68 mm Hg 06/03/2025 Pezceg97.5 in06/03/2025lood pressure gaezfexf497 mm Hg06/03/20251969Feurfj410.4 lbs 06/03/2025BMI29.79 kg/m206/03/2025 Encounters Encounter Location Date Provider Diagnosis [facility] [address] [place] [address] 06/19/2025 Nabeel Hendrickson [facility] [place] [address] 06/19/2025Nabeel [facility] [place] [address]/06/2025Doug HoyAccelerated essential hypertension I10 and Leukopenia D72.819[facility] [place] [address]/[facility] [place] [address]/[facility] [place] [address]/12/2024[facility] [place] [address]/Doug HoyVitamin D deficiency, unspecified E55.9[facility] [place] [address]/Doug HoyB12 deficiency E53.8[facility] [place] [address]/Doug Hoy Deficiency of vitamin B12 E53.8[facility] [place] [address]/Doug HoyDeficiency of vitamin B12 E53.8 [facility] [place] [address] 04/10/2025Doug HoyDeficiency of vitamin B12 E53.8[facility] [address] [place] [address]/Doug HoyB12 deficiency E53.8[facility] [place] [address] 06/12/2025Doug HoyDeficiency of vitamin B12 E53.8[facility] [address] [place] [address]/oug HoyB12 deficiency E53.8[facility] [place] [address] 10/08/2024Doug HoyB12 deficiency E53.8[facility] [place] [address]/07/2025Doug HoyDeficiency of vitamin B12 E53.8[facility] [place] [address] 11/25/2024Doug HoyDeficiency of vitamin B12 E53.8[facility] [address] [place] [address]/oug HoyB12 deficiency E53.8 and Foreign body (FB) in soft tissue M79.5BD[facility] [address] [place] [address]/05/2025Doug HoyOsteoarthritis of right knee M17.9 ; Atrial fibrillation I48.91 and Accelerated essential hypertension I10[facility] [address] [place] [address]/whitney Griffin Assessments Encounter Date Diagnosis (ICD Code) Assessment Notes Treatment Notes Treatment Clinical Notes Section Notes 08/13/2024 B12 deficiency (ICD-10 - E53.8) 08/13/2024Foreign body (FB) in soft tissue (ICD-10 - M79.5)09/12/2024B12 deficiency (ICD-10 - E53.8)10/08/2024B12 deficiency (ICD-10 - E53.8)11/05/2024 Deficiency of vitamin B12 (ICD-10 - E53.8)11/25/2024Deficiency of vitamin B12 (ICD-10 - E53.8)01/07/2025B12 deficiency (ICD-10 - E53.8)02/06/2025Deficiency of vitamin B12 (ICD-10 - E53.8)03/13/2025Deficiency of vitamin B12 (ICD-10 - E53.8)04/10/2025Deficiency of vitamin B12 (ICD-10 - E53.8)05/12/2025B12 deficiency (ICD-10 - E53.8)06/12/2025Deficiency of vitamin B12 (ICD-10 - E53.8) 06/03/2025Osteoarthritis of right knee (ICD-10 - M17.9)Cleared for OR - BP wellcontrolled -not in afib - passed stress test06/03/2025trial fibrillation (ICD-10 - I48.91)07/10/2025Vitamin D deficiency, unspecified (ICD-10 - E55.9) 5Accelerated essential hypertension (ICD-10 - I10)10/04/2024Leukopenia (ICD-10 - D72.819)5Accelerated essential hypertension (ICD-10 - I10) Plan Of Treatment Pending Test Test Name Order Date CMP (COMPLETE METABOLIC PANEL) UA (URINALYSIS, COMPLETE) 07/04/2023 CBC WITH DIFF 06/26/2023 DEXA Axial Skeleton (hips, pelvis, spine )* 06/26/2023 CT Abdomen and Pelvis w/o contrast 09/07 EKG w Interp & Report - performed 2023 BMP w/GFR 02/26/2024 BMP w/GFR 01/22/2024 BMP w/GFR 10/04/2024 Sleep Study: Retitration BIPAP/CPAP 10/2022 Creatinine Clearance 07/07/2023 Cardiolyte Stress Test 06/26/2023 CBC W/AUTO DIFF 02/26/2024 CBC W/AUTO DIFF 10/04/2024 DEXA - AXIAL SKELETON (HIPS,PELVIS,SPINE ) 03/13/2023 TAYLOR Ankle Brachial Index (16862) 024 CBC AUTO DIFF 07/22/2025 CBC AUTO DIFF 09/05/2023 CULTURE URINE 07/04/2023 BREE - VITAMIN D 12/28/2023 LDH 07/22/2025 PROF 14(COMP METB) 07/22/2025 PROTEIN 24HR URINE 07/07/2023 TESTOSTERONE, TOTAL 10/01/2023 THYROID PROFILE WITH TSH 08/24/2023 THYROID PROFILE WITH TSH 09/05/2023 URINE MICROSCOPIC ONLY 07/04/2023 VITAMIN B12 01/22/2024 VITAMIN B12 12/28/2023 US KIDNEYS BLADDER 07/03/2023 XR CSPINE 2_3 VIEWS 03/13/2023 XR DEXA BONE DENSITY 03/03/2023 THYROID PANEL (T4/TSH/FREE T3) 3 ECHOCARDIO M/2D COMPLETE 06/26/2023 XR SHOULDER RICHARD 2V or > 03/13/2023 U24 Creatinine 07/07/2023 Immunoglobulin G, Qn, Serum 07/22/2025 Next Appt Details Provider Name:ORAL GRIFFIN , 07/29/2025 11:30:00 AM, [address] [place], [address], Insurance Providers Payer Name Payer Address Payer Phone Subscriber Number Group Number Insured Name Patient Relationship to Insured Coverage Start Date Coverage End Date [employer] ACCESS PPO PLUS LOCAL PLAN [address] [place] [address] [id number] Saira Lacey Spouse - patient is the spouse of the insured 3 [place] [id number] Oanh Davislf - patient is the upgjses95 2013 Medications Administered Medication Instructions Date of Administration Dosage Notes Cyanocobalamin uPAyglspnpunixcs50/05/20231 fFIodismmstyfgwe29/05/20231 mL Hipviabjowbrag99/04/20231 gYKbjjrwqimfotix03/05/20231 qEXtltaijfcrudwu82/05/2023 1 aHMcpbegmxduecoc53/06/20231 nXOyxkgmhshoywrv61/04/20231 mLCyanocobalamin wVRrphwbhsgjfhqn48/05/20241 aIJvuyauuybhkeqn41/05/20241 mL Fhnbrlnmxcfopy77/04/20241 sYAwdvbezrxjrdaq00/30/20241 mVEvidtmvrtzgpwl47/30/2024 1 fEJoocpjmlshbukb84/28/20241 jGYekpnbjkyxacta99/23/20241 mLCyanocobalamin wLPklamgttjhsawc29/19/20241 xJLvxjgocajqsyxq08/19/20241 mL Oquqmmodygdjmy26/14/20251 cTEwzcovlnzzknjf53/11/20251 pSBfuxrlmlbrybtq52/03/2025 1 vEFbljqslnystniv31/15/20251 mYFoqzetptygyewa61/15/20251 mLCyanocobalamin qCOlhbsodgdkkurp52/17/20251 wGLigqowywukytml57/18/20251 mL Wsyrpwouighbus21/18/20251 wFRlvriflpvpkmuy68/16/20251 mL Medical (General) History Medical History History [...] radiculopathy undefined Neutropenia DDD (degenerative disc disease), lumbarOsteoarthritis of knee, unilateral Deficiency of vitamin N99MqfmzczuawEuegvbnmyozkujytNneku apneaArthritis of both kneesOther cerebrovascular diseaseADD (attention deficit disorder)AphasiaSpinal stenosisHypothyroidEczemaContusion and laceration of left cerebrum with >24 hours loss of consciousness without return topreexisting conscious level with patient survivingSurgical History Surgery Date(Month/Year) Right Labrum repair hernia repairneck surgeryLeft inguinal hernia repairright shoulderFusion Cervical Spineleft knee replacementLeft knee bnhdkotlgojTME21/17/23Colonoscopy 05/29/24ospitalization History Reason Date(Month/Year) brain trauma 2010
--- OUTSIDE RECORDS SUMMARY | 2025-07-25 14:59 | XMS_ITS | Clinical Summary ---
Author Organization [facility] Healthcare Address [address] [facility] [facility] [place] [address] Care Team Providers Care Predator Control Trapper Name Role Phone Ryan Hendrickson MD Primary Care Provider [phone] Allergies Active AllergyReactionsCriticalityNoted RrziIiwlmpmdWnrhjkawackmo42/23/2024 Medications MedicationSigDispense QuantityRefillsLast FilledStart DateEnd DateStatus apixaban (Eliquis) 5 MG tablet Take 5 mg by mouth in the morning and 5 mg before bedtime.Active ascorbic acid (Vitamin C) 1000 MG ER tablet Take 1,000 mg by mouth DailyActive tamsulosin (Flomax) 0.4 MG 24 hr capsule Take 0.4 mg by mouth DailyActive cholecalciferol (Vitamin D-3) 125 MCG (5000 UT) tablet Take 5,000 Units by mouth DailyActive hydrALAZINE (Apresoline) 25 MG tablet Take 25 mg by mouth in the morning and 25 mg in the evening and 25 mg before bedtime.Active levothyroxine (Synthroid, Levoxyl) 112 MCG tablet Indications:Sarah's diseaseTake 1 tablet (112 mcg) by mouth in the morning and 1 tablet (112 mcg) before bedtime. 90 tablet /6Active liothyronine (Cytomel) 25 MCG tablet Indications:Sarah's diseaseTake 1 tablet (25 mcg) by mouth Daily Take 0.5 tabs po qd 90 tablet /5Active Active Problems ProblemNoted DateDiagnosed DateOSA (obstructive sleep apnea)07/08/2024LMD (periodic limb movement disorder)07/08/20248772Ybetzinrhrw49/14/2024aroxysmal atrial vkkneasvsnmu40/14/2024utoimmune bkhrsmwgmit35/04/2024Unspecified atrial fetlathiccly75/04/2024 Resolved Problems ProblemNoted DateDiagnosed DateResolved DateHypothyroidism, unspecified Encounters DateTypeDepartmentCare GbceLqezfgdwhpt18/17/2025 10:30 AM EDTOffice Visit [facility] [address] [place] [address] Román Dawson MD Sarah's disease (Primary Dx)06/11/2025amboo flowsheet [facility] [address] [place] [address] Román Dawson MD 05/18/2025Refill [facility] [address] [place] [address] Román Dawson MD Sarah's diseasefrom Last 3 Months Family History Medical HistoryRelationNameCommentsCancerFatherHeart diseaseFatherLymphomaFather SmokerFatherSpleen cancerFatherCOPDMotherCancerMotherAlcoholism (CMS/HCC)Other COPDOtherCancer (CMS/HCC)OtherRelationNameStatusCommentsFatherDeceasedMother DeceasedOther Social History Tobacco UseTypesPacks/DayYears UsedDateSmoking Tobacco: NeverSmokeless Tobacco: Never Tobacco Cessation:Counseling Given: Not Answered Alcohol UseStandard Drinks/WeekCommentsYes0 (1 standard drink = 0.6 oz pure alcohol)AUDIT-CAnswerDate RecordedQ1: How often do you have a drink containing alcohol?Monthly or less07/08/2024Q2: How many drinks containing alcohol do you have on a typical day when you are drinking?1 or Q3: How often do you have six or more drinks on one occasion?Latkyd4107/08/2024Sex and Gender InformationValueDate RecordedSex Assigned at BirthNot on fileLegal SexMale 12/07/2022 7:03 PM EDTGender IdentityNot on fileSexual OrientationNot on file Last Filed Vital Signs Vital SignReadingTime TakenCommentsBlood Sbjkadho463/9009 10:43 AM EDT Melcf992906/11/2025 10:43 AM EDTTemperature--Respiratory Eyre882606/11/2025 10:43 AM EDTOxygen Uaynqhhpfi44%06/11/2025 10:43 AM EDTInhaled Oxygen Concentration-- Ranmcy71.8 kg (187 lb)06/11/2025 10:43 AM UMCAdlxon398.9 cm (5' 6.5 )06/11/2025 10:43 AM EDTBody Mass Index29.7306/11/2025 10:43 AM EDT Plan of Treatment DateTypeDepartmentCare Team (Latest Contact Info)Cwxdyxiroaq53/18/2026 11:00 AM EDTOffice Visit [facility] [address] [place] [address] Román Dawson MD [address] [place] [address] Health MaintenanceDue DateLast DoneCommentsCT Zzeswwyxbmil1959FIT-DNA 1959FIT1959FOBT1959 8284Jmpxhltjzmcut1959Influenza Vaccine (#1)/01/2024, 08/10/2023, 07/25/2022, Additional history exists Hzsplrbgzbj08/04/203409/4Colorectal Cancer Pfbtfaqep55/04/2034Pneumococcal Vaccine: 65+ NilgxPghgbyfay40/15/2024 Procedures Procedure NamePriorityDate/TimeAssociated PodokbwilUocfngzwGATEbvlbmy00/17/2025 11:14 AM EDT Sarah's disease T4, JQBMWavamla57/17/2025 11:14 AM EDT Sarah's disease T3, BFKDPjfrguk45/17/2025 11:14 AM EDT Sarah's disease from Last 3 Months Results * T3, free (06/11/2025 11:14 AM EDT)Specimen (Source)Anatomical Location / LateralityCollection Method / VolumeCollection TimeReceived TimeBloodVenous blood specimen / Unknown Narrative Authorizing ProviderResult TypeResult StatusUniversity Of Utah Hospitalmallory TrinhbaClaiborne [facility] Medical Center BLOOD ORDERABLESFinal ResultPerforming OrganizationAddressCity/State/ZIP CodePhone Number [facility] * TSH (06/11/2025 11:14 AM EDT)Specimen (Source)Anatomical Location / Laterality Collection Method / VolumeCollection TimeReceived TimeBloodVenous blood specimen / Unknown Narrative Authorizing ProviderResult TypeResult StatusLos Angeles County [facility] BLOOD ORDERABLESFinal ResultPerforming OrganizationAddressCity/State/ZIP CodePhone Number [facility] * T4, free (06/11/2025 11:14 AM EDT)Specimen (Source)Anatomical Location / LateralityCollection Method / VolumeCollection TimeReceived TimeBloodVenous blood specimen / Unknown Narrative Authorizing ProviderResult TypeResult StatusUniversity Of Utah Hospitalmallory TrinhRiver's Edge Hospital BLOOD ORDERABLESFinal ResultPerforming OrganizationAddressCity/State/ZIP CodePhone Number [facility] from Last 3 Months Insurance Care Teams Team MemberRelationshipSpecialtyStart Date Ryan Hendrickson MD PCP - GeneralFaboston nursery for blind babies Medicine05/13/24
--- OUTSIDE RECORDS SUMMARY | 2025-07-25 14:59 | XMS_ITS | Clinical Summary ---
Author Organization [facility] Address [address] [place] [address], [address] [place] [address] Care Team Providers Care Proposal Writer Name Role Phone Unavailable Primary Care Provider Unavailabl e Social History Tobacco UseTypesPacks/DayYears UsedDateSmoking Tobacco: Never AssessedSex and Gender InformationValueDate RecordedSex Assigned at BirthNot on fileLegal Sex Male11/06/2012 5:38 PM ESTGender IdentityNot on fileSexual OrientationNot on file Plan of Treatment Not on file
--- OUTSIDE RECORDS SUMMARY | 2025-07-25 14:59 | XMS_ITS | Clinical Summary ---
Author Organization [facility] Address [address] [facility] [place] [address] Care Team Providers Care Senior Firmware Engineer Name Role Phone Jovita Virk MD Unavailable Source Comments The following information is NOT included in Care Everywhere downloads:Psychiatric notes, ECG results, Cardiac Rehab notes, Pulmonary Function notes, data from SmartForms (includes but not limited toPregnancy data,audiograms, eye exams, pre-surgical evaluation notes, well-child exam data).[facility] Allergies No known active allergies [...] mg into the muscle once a month.12/10/2018Active [place]-3 Fatty Acids (FISH OIL) 1000 MG CAPS [...] 90 Capsule 3Active Active Problems ProblemNoted DateDiagnosed DateA-fib05/29/20192620Ssekvz41/04/2019Arthritis of both knees05/29/2019Cervical disc efcyedv8205/29/2019Spinal qwsbuqvj93/04/2019Sleep apnea05/29/2019B12 vlfrpiojnt26/29/2018Absolute ddktyi3912/06/2017Thrombocytopenia 12/04/2017Atrial xozxvjimljli15/08/2017Status post total left knee replacement 10/13/2016Primary osteoarthritis of right knee09/02/2016Traumatic brain injury 02/23/2016Encounter for vocational bonxrzq6908/24/2011Specific academic or work inhibition as adjustment vrmyncab71/30/2011Cognitive hfoeneev58/30/2011Muscle qtpfnvyz44/04/2011Encounter for occupational jkjqojc4007/07/2011Other physical jagqsud7507/05/2011Lack of vortizrjbxvv75/11/2011Memory loss07/05/2011ttention or concentration refxwed5207/05/2011Frontal lobe and executive function deficit 07/05/2011Cognitive communication clasxtm9607/05/2011Cervical vertebral fusion 06/28/2011 Overview (01/08/2019): History of Cervical vertebral fusion C5-C6 Auzwbvpbfyfoix73/04/2011Traumatic kodvwmqqedamalc64/04/9042Czpuond52/04/2011 Overview (01/08/2019): Post traumatic Amnesia Cervical spondylosis with lutkvakfld92/19/2007Viral warts04/28/2005 Immunizations ImmunizationAdministration DatesNext DueDTP (CVX=01)09/04/2021Influenza, Injectable, MDCK, Quadrivalent, Preservative Free (SHV=616)08/10/2023,07/25/2022 Influenza, injectable, quadrivalent, preservative free (OGP=107)08/10/2021, 06/30/2020Moderna Monovalent (12+ yrs) COVID-19 vaccine, mRNA, spike protein, LNP, PF, 100 mcg/0.5 mL (SVP=625)2Pfizer Monovalent (12+ yrs) SARS-COV-2 (COVID-19) vaccine, mRNA, spike protein, LNP, pres. free, 30mcg/0.3mL dose (YIO=004)12/22/2020,11/30/2020Zoster Recombinant (RZV,Shingles) (BJB=595) 08/29/2022,04/05/2022 Family History Medical HistoryRelationNameCommentsCancerFatherSkin, spleen Heart [...] relatives?Once a week08/12/2022How often do you attend hoahaoism or congregational services?Patient ledkqibd41/18/2022Do you belong to any clubs or organizations such as hoahaoism groups, unions, fraternal or athletic groups, or school groups?Patient /18/2022How often do you attend meetings of the clubs or organizations you belong to?Patient xrxjcvpy45/18/2022Are you , , , , never , or living with a partner?Patient pgfwehex43/18/2022verall Financial Resource Strain (CARDIA)AnswerDate Recorded How hard is it for you to pay for the very basics like food, housing, medical care, and heating?Patient beexntvl52/18/2022[facility] [place] of Occupational [facility] - Occupational Stress QuestionnaireAnswerDate RecordedDo you feel stress - tense, restless, nervous, or anxious, or unable to sleep at night because your mind is troubled all the time - these days?Not at all08/12/2022Exercise Vital SignAnswerDate RecordedOn average, how many days per week do you engage in moderate to strenuous exercise (like a brisk walk)?Patient wuyjwxen77/18/2022n average, how many minutes do you engage in exercise at this level?Patient xbpbxypc15/18/2022Hunger Vital SignAnswerDate RecordedWithin the past 12 months, [...] Last Filed Vital Signs Vital SignReadingTime TakenCommentsBlood Nbwmianv469/8610 2:11 PM EDT Apjlq0791 2:11 PM VLYYgzllhsqaig70.7 ??C (98 ??F)07/20/2022 2:11 PM EDT Respiratory Aqjk4927 2:11 PM EDTOxygen Ujqfakecpu684%07/20/2022 2:11 PM EDTInhaled Oxygen Concentration--Mhfhzj91.9 kg (185 lb)07/20/2022 2:11 PM EDT Xerzns975.2 cm (5' 7 )12/06/2017 8:56 AM EDTBody Mass Index28.98012/06/2017 8:56 AM EDT Plan of Treatment Health MaintenanceDue DateLast EabtErbuyynyByeqagemmji1959Hepatitis C Abizafif67/30/1977Tdap Evxtlih9202/21/1977Hepatitis A (HAV) Vaccine (optional start 19+ years)1978CRC Unolkdlfe29/30/2004Cologuard (Stool DNA)02/22/2004 FIT02/22/2004Pneumococcal Vaccine(s) (50+ yrs) (1 of 1 - PCV)2009TSH 06/10/201209nnual Wellness Visit (G0438)11/23/2014Hepatitis B (HBV) Vaccine (optional start 60+ years)2019COVID-19 Vaccine ( season)/09/2021, 09/20/2021, 12/22/2020, Additional history exists Influenza Vaccine (#1)/, 07/25/2022, 08/10/2021, Additional history wangohBehcaoeaqnx84/08/360894/04/2021, 09/05/2016RSV vaccine (adult) (1 - 1-dose 75+ series)2034Shingles (RZV) VnwnefkKetpwioxp14/05/2022, 04/05/2022 Procedures Procedure NamePriorityDate/TimeAssociated QofmktnjeFcgbwaapFHXToezhwv23/16/2011 1:06 AM EDT from Last 3 Months or Most Recently Relevant to Health Maintenance Results * TSH, HIGH SENSITIVITY (06/10/2011 1:06 AM EDT)ComponentValueRef RangeTest MethodAnalysis TimePerformed AtPathologist SignatureTSH (high sens.)4.5620.300 - 5.600 uIU/mLMHS CLINICAL PATHOLOGY LABORATORYComment:Note: New reference range effective 2010Specimen (Source)Anatomical Location / Laterality Collection Method / VolumeCollection TimeReceived TimeBlood, venous stickBLOOD SPECIMEN / Quexwwh7306/10/2011 1:06 AM EDT Narrative Authorizing ProviderResult TypeResult StatusMoeid Blanche PRIETO98 GENERAL LABFinal ResultPerforming OrganizationAddressCity/State/ZIP CodePhone Number [facility] [address] [place], [place] [phone] from Last 3 Months or Most Recently Relevant to Health Maintenance Insurance * Guarantor: Tono Sainz TypeRelation to PatientDate of BirthPhone Billing YhwsphjMdqvimycWensn52/11/1965 [address] [place] [address] Advance Directives * Full Code (Latest Code Status on File) Date ActivatedDate InactivatedComments06/09/2011 2:48 PM10 2:29 PM * Full Code Date ActivatedDate InactivatedComments06/05/2011 4:23 AM9 2:48 PM Care Teams Team MemberRelationshipSpecialtyStart DateEnd Date Jovita Virk MD [address] [place] [phone] PhysicianPhysical Medicine & Rehab/PM&R1
--- OUTSIDE RECORDS SUMMARY | 2025-07-25 14:59 | XMS_ITS | Clinical Summary ---
Author Organization [facility] Address [address] [place] [address] Care Team Providers Care Company Driver Name Role Phone Ryan Hendrickson MD Primary Care Provider [phone] Allergies No known active allergies Medications MedicationSigDispense QuantityRefillsLast FilledStart DateEnd DateStatus liothyronine (Cytomel) 25 mcg tablet Take 0.5 tablets by mouth in the morning.02/08/2017Active tamsulosin (Flomax) 0.4 mg 24 hr capsule Take 1 capsule every day by oral route for 90 days.02/08/2017Active amantadine (Symmetrel) 100 mg capsule Take 1 capsule every day by oral route for 30 days.12/25/2017Active vitamin B complex 393-5-788-2-2 mg/mL injection Inject into the shoulder, thigh, [...] combined systolic (congestive) and diastolic (congestive) heart exisrqq2407/16/2024DD (attention deficit disorder)07/16/2024MI 28.0-28.9,adult 07/16/2024hronic rjuzlfgymzvenqr19/22/7551Jgmzfymqiz98/22/2024enal cyst 07/16/20240847Fxsvxzckhmy27/14/2024LMD (periodic limb movement disorder)07/08/2024 Autoimmune xvwnbthowhb74/04/2024Vision kresxjw1511/17/2023Stage 2 chronic kidney xuymmtb0211/17/2023 Assessment & Plan (11/17/2023 4:09 PM EST): Renal condition is stable Mild mitral trovgprdvzkbo91/22/2024Nonrheumatic tricuspid valve regurgitation 11/16/2023Status post ablation of atrial qoyanmylluwb32/22/2024ain in limb /01/2024Urge cddpzzbxaqae26/05/202402/8252Qqivfor64/04/2023 06/28/2023PH with urinary azpjwskgwdv78Transient ischemic attack (TIA)egeneration of intervertebral disc06/28/2023 06/28/20239244Wftrhqjqlk23ED (erectile dysfunction)06/28/2023 06/28/2023H/O head gkjqhi59Hypogonadism male06/28/2023 06/28/20230305Tgvjbynozg39Lower back pain Lumbar nimcdpzmkoudx21NeutropeniaOther specified behavioral and emotional disorders with onset usually occurring in childhood and shjjntgxylr34Orthostatic oeejincjvxa25/04/2023 06/28/20233298Pqwneeam24rotein in urine Eefhsem12Weak urine nxnbrz56hest pain 06/28/2023rthritis of both kneesEczema Sleep apneaSpinal ccvrnqdd6812 deficiency bsolute cmzech73Thrombocytopenia trial daopswcxcwwg07/08/2017Status post total left knee dixjqjkcxpf33Osteoarthritis of knee Traumatic brain nfrnhi22ognitive ameukfwy72 Encounter for vocational sqrpjmy34Specific academic or work inhibition as adjustment hwanfxwz26Muscle rxylphdy04/12/2010 10/04/2023Attention or concentration rnvvnxg743Cognitive communication xskkxdg89Lack of lsfdrimfqxer01/11/2011 06/28/20233342Melgjer72 Overview (06/28/2023): Post traumatic Amnesia Cervical vertebral rjvjem71 Overview (06/28/2023): History of Cervical vertebral fusion C5-C6 Iepmouipgvczrg91Traumatic dxdarhavrlfzloz67 Viral wart, hrtnhozyenb48Vitiligo Resolved Problems ProblemNoted DateDiagnosed DateResolved DateAsthmatic hjxhozyrbo49/04/2023/ Encounters DateTypeDepartmentCare UurgQaqopnvfasj00/08/2025Telephone [facility] [address] [place] [address] Lakshmi Presley MA 06/02/2025Orders Only [facility] [address] [place] [address] ProviderAnibal MD 05/08/2025Refill [facility] [address] [place] [facility] [place] [address] Jeovanny Garcia MD Paroxysmal atrial fibrillation (CMS/HCC)from [...] InformationValueDate RecordedSex Assigned at BirthNot on fileLegal YyhYbar2503/23/2022 10:35 PM EDT Gender IdentityNot on fileSexual OrientationNot on file Last Filed Vital Signs Vital SignReadingTime TakenCommentsBlood Ovuyhcas935/8504 9:31 AM EDT Lggdv3024 9:31 AM MCFVeespiejwkw48.5 ??C (97.7 ??F)11/17/2023 4:00 AM ESTRespiratory Wxey936112/26/2023 2:08 PM EDTOxygen Lxsnoslecl295%01/21/2025 9:31 AM EDTInhaled Oxygen Concentration--Tgksma98.2 kg (190 lb)01/21/2025 9:31 AM EDT Ndwbgl062.6 cm (5' 6 )01/21/2025 9:31 AM EDTBody Mass Index30.67001/21/2025 9:31 AM EDT Plan of Treatment Health MaintenanceDue DateLast DoneCommentsCT Acxyrjzxzmsx1959FIT-DNA 1959FIT1959FOBT1959Medicare Annual Wellness (AWV)1960 Iorinekhxwcaw1959Depression Ptwixmhrz59/30/1971Pneumococcal Vaccine: 50+ Years (1 of 2 - PCV)1978Adult Insxezi9702/21/1981Fall Risk Screening 02/22/2024OVID-19 Vaccine ( season)5109/25/2021, 09/20/2021, 12/22/2020, Additional history existsInfluenza Vaccine (#1)/, 07/25/2022, 08/10/2021, Additional history vybaluGxkzebmdaiu62/04/203409/12/2023 Colorectal Cancer Fukpigqjq00/04/2034Zoster ChszcbdnUddmtlbep44/05/2022, 04/05/2022HIB VaccinesAged OutNo longer eligible based on [...] Procedures Procedure NamePriorityDate/TimeAssociated DiagnosisCommentsLEXISCAN STRESS MYOCARDIAL PERFUSION IIGJRFFQheyexz25/04/2025 9:13 AM EDTfrom Last 3 Months Results [...] Ryan Hendrickson MD [address] [place] [address] [address] PCP - Azbujdm74/4/23
--- OUTSIDE RECORDS SUMMARY | 2025-07-25 14:59 | XMS_ITS | Clinical Summary ---
Author Organization [employer] [facility] tem Address [id number] [place] [address] Care Team Providers Care Yam Curer Name Role Phone Ryan Hendrickson MD Primary Care Provider [phone] Allergies No known active allergies Medications MedicationSigDispense [...] osteoarthritis of right knee 09/02/2016 Encounters DateTypeDepartmentCare NppfJjksiuleknh23/17/2025Telephone [facility] [address] [facility] [address] [place] [phone] Alf Anthony MD from Last 3 Months [...] standard drink = 0.6 oz pure alcohol)ChildcareAnswerDate GntqtalkNmdeouxmvPmetnyi45/12/2019EmploymentAnswer Date CphddaunYxmvgrztbnDoswkal57/12/2019Purpose - LifeAnswerDate RecordedPurpose and direction in vhfsOltbpzm58/11/2021ex and Gender InformationValueDate RecordedSex Assigned at RsllmFjbs06/29/2021 10:23 PM ESTLegal SgjRazr6604/30/2015 11:39 AM EDTGender ZcbfpvabHohl13/29/2021 10:23 PM ESTSexual OrientationNot on file Last Filed Vital Signs Vital SignReadingTime TakenCommentsBlood Zndmldzs461/7603 11:05 AM EDT Juytk036612/21/2017 11:05 AM KTXDarsrlyublf76.2 ??C (97.2 ??F)09/08/2016 12:34 PM ESTRespiratory Dbvs373311/09/2015 8:15 AM ESTOxygen Npggnonytt70%09/08/2016 8:15 AM ESTInhaled Oxygen Concentration--Mcumbf62.5 kg (186 lb 6 oz)02/18/2025 10:20 AM GHEInssgy995.2 cm (5' 7 )02/18/2025 10:20 AM EDTBody Mass Index29.19 02/18/2025 10:20 AM EDT Plan of Treatment Health MaintenanceDue DateLast DoneCommentsDiabetic Ophthalmology Exam1959 Statin Use: Nggaeloh1959Depression Dqfhhtukv24/30/1971Adult BMI Follow Up Plan1977Diabetic Foot Exam1977Fall Risk Lxfewgbms74/30/2024OVID-19 Vaccine ( season)/09/2021, 09/20/2021, 12/22/2020, Additional history existsInfluenza Gdzgowr33/01/2024, 08/10/2023, 07/25/2022, Additional history existsAdult BMI Cuwyhixdh97/ Tobacco Wsdkihajz64DTaP,Tdap and Td Vaccines (2 - Tdap) /07/2021Zoster (Shingles) ZtcvvseVwltdjpud67/05/2022, 04/05/2022 Goals GoalPatient Goal TypeAssociated ProblemsRecent ProgressPatient-Stated?Author Improve mobility Tiffanie Lam, RN Note: Evaluation of progress towards goal: Maximize work with PT at discharge to strengthen L knee Medical Devices ImplantedTypeAreaManufacturerDevice IdentifierShelf Expiration DateModel / Serial / LotBrng Tib [id number] 0d Kn Ant - [id number] Implanted:Qty: 1 on 09/05/2016 [facility] Knee [id number] / / [id number] Bn [place] Radpq 40g Rpl [id number] - [id number] Implanted:Qty: 2 on 09/05/2016 [facility]ementLeft: Knee Walter Tqksnx95/31/[id number] / / [id number] Tib 79mm Cocr Kn I Beam - [id number] Implanted:Qty: 1 on 09/05/2016 [facility] Left: PlngPsndqw49/12/[id number] / / [id number] Fem Kn Lt 70mm Cr Cmnt - [id number] Implanted:Qty: 1 on 09/05/2016 by [facility] Left: WeiyJunilp32/02/[id number] / / [id number] Ptlr Thn 34mm 3 Pg Kn Ser - [id number] Implanted:Qty: 1 on 09/05/2016 by [facility] Left: UohbAsfrwy75/01/[id number] / / [id number] Insurance Advance Directives * Full Code (Latest Code Status on File) Date ActivatedDate SzvjzsmyrqfJziriggk23/12/2016 8:43 PM09/08/2016 4:31 PM Care Teams Team MemberRelationshipSpecialtyStart DateEnd Date Ryan Hendrickson MD PCP - Oojcfgw89/11/16
--- OUTSIDE RECORDS SUMMARY | 2025-07-25 14:59 | XMS_ITS | Clinical Summary ---
Author Organization [facility] Address [address] [place] [address] Care Team Providers Care Washer Engineer Name Role Phone Ryan Hendrickson MD Primary Care Provider [phone] Allergies No known active allergies Medications MedicationSigDispense QuantityRefillsLast FilledStart DateEnd DateStatus ibuprofen (ADVIL) 200 mg tablet Take 800 mg by mouth twice daily.Active levothyroxine (SYNTHROID) 150 mcg tablet Take 150 mcg by mouth once daily. 09/30/2017Active tamsulosin ER (FLOMAX) 0.4 mg cp24 0.4 mg once daily. 10/28/2017Active liothyronine (CYTOMEL) 25 mcg tablet Take 25 mcg by mouth once daily.Active omega-3 fatty acids (FISH OIL CONCENTRATE) 1,000 mg cap Take 2 g by mouth twice daily.Active amantadine HCl (SYMMETREL) 100 mg capsule Take 100 mg by mouth once daily.10012/25/2017Active testosterone cypionate (DEPO-TESTOSTERONE) 200 mg/mL injection INJECT 1ML INTRAMUSCULARLY EVERY KUALQ420Active Ascorbic Acid (VITAMIN C) 100 mg tablet Daily, Refills(s) Active omega-3s/dha/epa/fish oil/D3 (VITAMIN-D + OMEGA-3 ORAL) Take by mouth.08/31/2021ctive Dellroy Aspartate 20 mg cap Take 1 capsule by mouth once daily.Active Vit D8-Q9-C2-B5-B6 218-5-016-2-2 mg/mL soln Refill(s) Active Active Problems ProblemNoted DateDiagnosed DateB12 tbaaottzyl91/29/2018Absolute dbfvdb6212/06/2017 Fsrxzjsmpyumzhmy30/12/2018Viral warts, zwtzghjpada90/04/1610Ugsofocm34/03/2005 Asthmatic bronchitisSleep apneaA-fibArthritis of both kneesLower back pain Orthostatic hypotensionVertigoCVA (cerebral vascular accident) Overview (11/30/2017): due to head trauma DysarthriaADD (attention deficit disorder)AphasiaEczemaCervical disc disease HypothyroidismSpinal stenosis Immunizations ImmunizationAdministration DatesNext Duediphtheria tetanus pertussis (DTP) jlczhhx1609/04/2021influenza (IIV4) vaccine, age 6 mo - 64 yr, quadrivalent, PF (AFLURIA, FLUARIX, FLULAVAL, FLUZONE)08/10/2021,06/30/2020influenza (ccIIV4) vaccine, age 6+ mo, quadrivalent, PF (FLUCELVAX)07/25/2022zoster (RZV) vaccine, recombinant (SHINGRIX)08/29/2022,04/05/2022 Social History Tobacco UseTypesPacks/DayYears UsedDateSmoking Tobacco: NeverSmokeless Tobacco: Never Tobacco Cessation:Counseling Given: Not Answered Alcohol UseStandard Drinks/WeekCommentsYes0 (1 standard drink = 0.6 oz pure alcohol)socialPHQ-2AnswerDate RecordedPHQ-2 ghuhi377Area Deprivation IndexAnswerDate RecordedNational Score (1-100), lower number is lower risk87 04/26/2023State Score (1-10), lower number is lower ujdp5233Data from: https://www.neighborhoodatlas.medicine.[facility].edu/. Last address used for mttadsjisys[address]04/26/2023Sex and Gender InformationValueDate RecordedSex Assigned at BirthNot on fileLegal TxhHzvr07/02/2012 7:29 AM EST Gender IdentityNot on fileSexual OrientationNot on file Last Filed Vital Signs Vital SignReadingTime TakenCommentsBlood Ivnvstsj799/9408 11:15 AM EDT Unmes765104/26/2023 11:15 AM XTYZqdlaoufgfm21.7 ??C (98 ??F)04/26/2023 11:15 AM EDTRespiratory Ezug534701/03/2019 2:51 PM EDTOxygen Zeudmlizwl87%04/26/2023 11:15 AM EDTInhaled Oxygen Concentration--Becdzt55 kg (191 lb 11.2 oz)04/26/2023 11:15 AM RCASyabav476.4 cm (5' 6.3 )04/26/2023 11:15 AM EDTBody Mass Index30.66 04/26/2023 11:15 AM EDT Plan of Treatment Health MaintenanceDue DateLast DoneCommentsAnnual PCP Team Chronic Disease Visit 1977Anxiety Fhmbjoyik90/30/1977Depression Zddgebnsk56/30/1977Hepatitis C Xynlbeggv86/30/1977Lipid Zrqhuwnao36/30/1994CT Ghboqhhpnmbf27/30/2004Cologuard (FIT-DNA)02/22/20048424Bqtutcultlk97/30/2004Colorectal Cancer Ymrybhvhx54/30/2004 Fecal Occult Blood02/22/20049434Svgpfoykysgww53/30/2004Pneumococcal Vaccine: 50+ (1 of 1 - PCV)2009RSV Vaccine (1 - Risk 60-74 years 1-dose series)2019 Diabetes Uwclbkocj24Advance Directive Xhhgwrlmdm79/01/2025 Covid-19 Vaccine ( season), 09/20/2021, 12/22/2020, Additional history existsInfluenza Vaccine (#1), 08/10/2021, 06/30/2020Prostate Cancer Screening Eajzsmaaky58/21/202709/, 2DTaP,Tdap,Td Vaccine (2 - Tdap)hingrix Vaccine Gtshawsty43/05/2022, 04/05/2022 Procedures Procedure NamePriorityDate/TimeAssociated DiagnosisCommentsBASIC METABOLIC PANEL Etanmoj5812/04/2017 3:22 PM EDT Leukopenia, unspecified type Thrombocytopenia (HCC) Hypothyroidism, unspecified type from Last 3 Months or Most Recently Relevant to Health Maintenance Results * BASIC METABOLIC PNL (12/04/2017 3:22 PM EDT)ComponentValueRef RangeTest Method Analysis TimePerformed AtPathologist LhycdxqyjEravobv5591 - 99 mg/dL12/05/2017 10:35 AM [facility] LABORATORYComment: The [place] Diabetes Association (ADA) provides guidance for cutoff [...] Standards of Medical Care in Diabetes 2016, [place] Diabetes Association. Diabetes Care. 2016.39(Suppl 1). CRD599 - 24 mg/dL12/05/2017 10:35 AM [facility] Creatinine1.160.73 - 1.22 mg/dL12/05/2017 10:35 AM [facility] EGFHNMGGAHSymwhw380492 - 144 mmol/L12/05/2017 10:35 AM [facility] LABORATORYPotassium4.63.7 - 5.1 mmol/L12/05/2017 10:35 AM [facility] TVJFDLZFOKKnwpynae75297 - 105 mmol/L12/05/2017 10:35 AM [facility] QABOIZUUCASQ83360 - 30 mmol/L12/05/2017 10:35 AM [facility] LABORATORYAnion Nme181 - 18 mmol/L12/05/2017 10:35 AM [facility] IUVUCBWHYHJltkccr42.18.5 - 10.2 mg/dL12/05/2017 10:35 AM [facility] LABORATORYeGFR->6003 10:35 AM [facility] LABORATORYeGFR-All Other Races>60.12/05/2017 10:35 AM [facility]TCLEVEL[facility] LABORATORYComment: eGFR (Estimated GFR) Units of measure: mL/min/1.73 [...] eGFR may not accurately reflect actual GFR. Specimen (Source)Anatomical Location / LateralityCollection Method / Volume Collection TimeReceived TimeBlood specimen (specimen)BLOOD SPECIMEN / Unknown 12/04/2017 3:22 PM EDT12/04/2017 3:24 PM EDT Narrative Authorizing ProviderResult TypeResult StatusJames E FanningLABORATORYFinal ResultPerforming OrganizationAddressCity/State/ZIP CodePhone Number [facility] [address] [place] [address] from Last 3 Months or Most Recently Relevant to Health Maintenance Insurance Care Teams Team MemberRelationshipSpecialtyStart DateEnd Ryan Hendrickson MD [facility] - [facility]12/04/17
--- OUTSIDE RECORDS SUMMARY | 2025-07-25 15:00 | XMS_ITS | CCD ---
Author Organization [facility]ini[facility] Care Team Providers Care Busher Helper Name Role Phone Ilda Peck Primary Care Physician [phone] Moose PRIETO, Jovita Unavailable Jovita Virk MD [...] DR SAEED Landa Attending Unavaila ble PEPE THORPE ., DR SAEED Landa Consulting Unavaila ble HOY ., DR GONSALES Primary Care Unavailable HOY ., DR GONSALES Primary Care Unavailable SILVERMAN ., DR WINTERS Admitting Unavailable SILVERMAN ., DR WINTERS Attending Unavailable SILVERMAN ., DR WINTERS Consulting Unavailable HOY ., DR GONSALES Attending Unavailable HOY ., DR GONSALES Admitting Unavailable HOY ., DR GOSNALES Consulting Unavailable HOY ., DR GONSALES Primary [...] Unavailable Ilda Peck MD Primary Care Provider [phone] ILDA PECK Primary Care Unavailable SHAWANDA HERNANDEZ Attending Unavailable Sandoval Knight Unavailable MD Ilda Peck Primary Care Provider [phone] MD Tracy Griffin Attending Provider Ilda Peck MD Primary Care Provider [phone] Unavailable Primary Care Provider Unavailabl Ilda Regan MD Primary Care Provider [phone] Shawanda MEJIA Attending Unavailable SILVERMANVianey Attending Unavailable SILVERMANVianey Attending Unavailable SILVEMRANVianey Attending Unavailable NILShawanda Landa Attending Unavailable Shawanda MEJIA Attending Unavailable Ilda Peck MD Primary Care Provider [phone] Ilda Peck MD Primary Care Provider [phone] OSMIN ANTHONY Attending Unavaila ble HOY, ILDA M Referring Unavailable HOY, ILDA M Primary Care Unavailable KEYONNAETISOSMIN GARDINER Attending Unavaila ble HOLuz Maria, ILDA M Primary Care Unavailable HOY, ILDA M Referring Unavailable FOETISOSMIN GARDINER Attending Unavaila ble CISCO, ILDA M Primary Care Unavailable HOY, ILDA M Referring Unavailable FOETISOSMIN GARDINER Referring Unavaila ble ILDA PECK M Primary Care Unavailable Ilda Peck MD Primary Care Provider [phone] Scot Hutchison MD Attending Provider [phone] Moose PRIETO, [facility] Unavailable GEORGE LOZA Attending Unavailable BAKARI SCOTT Attending Unavailable Ilda Peck MD Primary Care Provider [phone] ROMÁN DAWSON Attending Unavailable SAGE GOODE Attending Unavailable Ilda Peck MD Primary Care Provider [phone] Scot Hutchison MD Attending Provider [phone] Sage Goode DO Attending Provider Foster JONES, Scot Pompa Admitting Unavailabl e Foster KAREN, Scot Pompa Attending Unavailabl Ilda Regan Primary Care Unavailable Foster JONES, Scot Pompa Admitting Unavailabl e Beaver II, Scot Pompa Attending UnavailIlda Hernandez Primary Care Unavailable Foster JONES, Scot Pompa Admitting Unavailabl e Foster II, Scot Pompa Attending Unavailabl e Ilda Peck Primary Care Unavailable Foster JONES, Scot Pompa Attending Unavaileleanor e Foster II, Scot Pompa Admitting UnavailIlda Hernandez Primary Care Unavailable Allergies Allergy ClassificationReported Allergen(s)Allergy TypeDate of OnsetReaction(s) Facility (9 sources)Ciprofloxacin; Translations: [ciprofloxacin]Drug [id number] Patient reported problems (finding)[facility] [place] (1 source)Ciprofloxacin; Translations: [Cipro][facility]ergy[facility] [place] [facility] (1 source)No Known Medication Allergies; Translations: [No Known Medication Allergies]Propensity to adverse reactions (disorder)[facility] [place] [facility] (1 source)CiprofloxacinDrug [place]25-37-9040[facility] Medications Current Medications MedicationDrug Class(es)DatesSig (Normalized)Sig (Original)acetaminophen 500 mg oral tablet (10 sources)Start: 79-78-5726bgjn 2 tablets by mouth every eight hoursStart: 51-44-4000nnfg 2 tablets by mouth every four hours as neededacetaminophen (TYLENOL) 325 MG tablet Take 2 Tabs by mouth every 4 hours as needed. 30 Tab 30 06/27/2011 Activeamantadine hydrochloride 100 mg oral capsule (20 sources)Influenza A M2 Protein InhibitorStart: 24-14-8243hgwn 1 mg by mouth twice dailyamantadine 100 mg Cap mg cap(s), Oral, BID, Refills(s) 0 Start Date: 05/07/19 Status: OrderedStart: 12-25-2017 End: 86-18-9944ztbo 1 capsule by mouth once dailyamantadine (SYMMETREL) 100 MG capsule TAKE 1 CAPSULE BY MOUTH EVERY DAY 90 Capsule 09/22/2023 Activetake 1 tablet by mouth every twenty-four hoursAmantadine HCl 100 MG 1 tablet Orally Once a day Active End: 57-60-1981WHUALNXCHZ HCL ORAL Take by mouth. 0 04/26/2023 Discontinued (Course of therapy completed)Comment on above:Take 100 mg by mouth once daily. Take by mouth.apixaban 5 mg oral tablet (20 sources)Factor Xa InhibitorStart: 09-06-1187poyu 1 tablet by mouth twice daily End: 85-45-3469qagz 1 tablet by mouth in the morningapixaban (Eliquis) 2.5 MG tablet Take 2.5 mg by mouth in the morning and 2.5 mg before bedtime. 06/12/2024 Discontinued (Duplicate order)ascorbic acid 1000 mg oral tablet (20 sources)Vitamin CStart: 05-46-0921rqbk 1 tablet by mouth once daily in the morningStart: 14-00-4146Fgwxmre C Daily, Refills(s) 0 Start Date: 05/07/19 Status: OrderedStart: 04-89-5399Llzbowky Acid (VITAMIN C) 100 mg tablet Daily, Refills(s) 0 0 05/07/2019 Activetake 1 tablet by mouth once dailyascorbic acid (Vitamin C) 1000 MG ER tablet Take 1,000 mg by mouth Daily ActiveAscorbic Acid (Vitamin C) 100 MG CHEW Vitamin C Active End: 46-73-6020shvc 1 tablet by mouth once dailyascorbic acid, vitamin C, (ascorbic acid with steph hips) 500 mg tablet Take 500 mg by mouth daily. 0 02/18/2025 Discontinued (Therapy completed) End: 00-54-4073FFOKDLST ACID (VITAMIN C ORAL) Indications: Leukopenia, unspecified type , Thrombocytopenia (HCC) ,Hypothyroidism, unspecified type Take 1,000 mg by mouth. 0 04/26/2023 Discontinued (Course of therapy completed) Comment on above: Daily, Refills(s) 0Take 1,000 mg by mouth.carvedilol 6.25 mg oral tablet (4 sources)alpha-Adrenergic Nalini, beta-Adrenergic BlockerStart: 08-03-2023 End: 32-46-9248hqrl 1 tablet by mouth in the morning, then take 1 tablet by mouth at mealtimecarvediloL (COREG) 6.25 mg tablet Take 1 tablet (6.25 mg total) by mouth in the morning and 1 tablet (6.25 mg total) in the evening. Take with meals. 08/03/2023 08/02/2024 Activetake 1 tablet by mouth every twelve hours Coreg 25 MG 1 tablet with food Orally Twice a day Activecefadroxil 500 mg oral capsule (4 sources)Cephalosporin AntibacterialStart: 73-93-0431umsu 1 capsule by mouth every twelve hourscholecalciferol 0.05 mg oral tablet (13 sources)Vitamin DStart: 77-65-0286fmfq 1 tablet by mouth once daily in the morningtake 1 tablet by mouth once dailycholecalciferol (Vitamin D-3) 125 MCG (5000 UT) tablet Take 5,000 Units by mouth Daily Activechondroitin sulfates 400 mg / glucosamine hydrochloride 500 mg oral tablet (5 sources) End: 93-36-4857gfbc 3 tablets by mouth once dailyglucosamine-chondroitin 500-400 mg tablet Take 3 tablets by mouth daily. 02/18/2025 Discontinued (Therapy completed) End: 24-60-2630fiyh 750 mg by mouth once dailyGLUCOSAMINE HCL/CHONDROITIN ARANDA (GLUCOSAMINE-CHONDROITIN) 750-600 mg chew Take 750 mg by mouth once daily. 0 04/26/2023 Discontinued (Course of therapy completed)Comment on above:Take 750 mg by mouth once daily.Cpap (Continuous Positive Airway Pressure) unit (4 sources)Start: 76-81-4508Tioi (Continuous Positive Airway Pressure) unit Active 0 .Route 1 0 July 14, 2025 12:00am new mask and CPAP supplies x 1 year. dx NANCY HartDepo-Testosterone 200 mg/mL intramuscular solution (3 sources)Start: 42-60-0551Btjd-Testosterone 200 mg/mL intramuscular solution 300 mg, IntraMuscular, q4wk, # 10 mL, Refills(s)1, Pharmacy: [facility]/pharmacy #[id number], 167, cm, 10/05/21 11:32:00 EST, Height/Length Dosing, 83, kg, 10/05/21 11:32:00 EST, Weight Dosing Start Date: 01/04/22 Status: Ordereddexpanthenol 2 mg/ml / niacinamide 100 mg/ml / riboflavin 2 mg/ml / thiamine 100 mg/ml / vitamin b62 mg/ml injectable solution (12 sources)Start: 87-62-9974Ktpnmup B Complex injectable solution Refill(s) 0 Start Date: 05/07/19 Status: OrderedComment on above: Refill(s) 0dilTIAZem hydrochloride 120 mg oral tablet (4 sources)Calcium Channel Nalini End: 43-31-1224gvle 1 tablet by mouth once dailydiltiazem (CARDIZEM) 120 MG tablet Take 120 mg by mouth daily. 02/18/2025 Discontinued (Therapy completed) docosahexaenoic acid 120 mg / eicosapentaenoic acid 180 mg oral capsule (6 sources)take 1 capsule by mouth once dailyOmega-3 Fatty Acids (FISH OIL) 1000 MG CAPS Take 1 Capsule by mouth daily. ActiveDOCOSAHEXANOIC ACID/EPA (FISH OIL ORAL) (4 sources) End: 74-85-1695boqo 1200 mg by mouth once dailyDOCOSAHEXANOIC ACID/EPA (FISH OIL ORAL) Take 1,200 mg by mouth daily. 02/18/2025 Discontinued (Therapy completed) take 1200 mg by mouth once dailyDOCOSAHEXANOIC ACID/EPA (FISH OIL ORAL) Take 1,200 mg by mouth daily. Activetake 1200 mg by mouth once dailyDOCOSAHEXANOIC ACID/EPA (FISH OIL ORAL) Take 1,200 mg by mouth daily. 0 Activedocusate sodium 50 mg / sennosides, prison 8.6 mg oral tablet (4 sources)Start: 73-90-1060uiok 2 tablets by mouth once dailyFish Oils (9 sources)Start: 71-23-7544Wchy Oil Oral, Refill(s) 0 Start Date: 05/07/19 [...] mg oral tablet (20 sources)l-ThyroxineStart: 06-11-2025 End: 86-73-6874zbke 1 tablet by mouth once daily in the morningStart: 05-19-2025 End: 29-01-9355qlhf 1 tablet by mouth once daily before mealtimelevothyroxine (Synthroid, Levoxyl) 100 MCG tablet Indications: Sarah's disease TAKE 1 TABLET BYMOUTH ONCE EVERY MORNING BEFORE MEALS 90 tablet 3 05/19/2025 06/11/2025 Discontinued (Dose adjustment)Start: 57-40-1431tbri 1 tablet by mouth before mealtimelevothyroxine (Synthroid, Levoxyl) 100 MCG tablet Indications: Sarah's disease (CMS/HCC) Take 1tablet (100 mcg) by mouth in the morning. Take before meals. 90 tablet 3 06/12/2024 ActiveStart: 06-40-3317wmdp 1 tablet by mouth before mealtimelevothyroxine (Synthroid, Levoxyl) 100 MCG tablet Indications: Sarah's disease (CMS/HCC) Take 1tablet (100 mcg) by mouth in the morning. Take before meals. 90 tablet 3 06/12/2024 ActiveStart: 06-06-2024 End: 79-49-6921xehe 1 tablet by mouth once dailyLevothyroxine 100 mcg tablet Discontinued 100 MCG PO Daily June 06, 2024 12:00am July 23, 2025 9:08amStart: 96-66-4789uiur 1 tablet by mouth once dailylevothyroxine 150 mcg (0.15 mg) Tab 150 mcg = 1 tab(s), Oral, Daily, Refills(s) 0 Start Date: 05/07/19 Status: OrderedStart: 69-39-0151chwt 1 tablet by mouth once dailylevothyroxine (SYNTHROID) 150 MCG tablet Take 1 Tablet by mouth daily. 30 Tablet 3 02/08/2017 ActiveStart: 76-96-6128xkmmcxibbpkca (SYNTHROID, LEVOTHROID) 175 MCG tablet Take 150 mcg by mouth once daily. 11 08/25/2016 ActiveComment on above:Take 150 mcg by mouth once daily. liothyronine sodium 0.025 mg oral tablet (20 sources)l-TriiodothyronineStart: 65-29-1168ghvx 12.5 ug by mouth once daily Liothyronine Active 12.5 MCG PO Daily June 06, 2024 12:00amStart: 36-06-9717bauz 1 tablet by mouth once dailyliothyronine 25 mcg Tab 25 mcg = 1 tab(s), Oral, Daily, Refills(s) 0 Start Date: 05/07/19 Status: OrderedStart: 02-08-2017 End: 27-67-6826grug 1 tablet by mouth once daily in the morning End: 27-47-9196fuzd 0.5 tablet by mouth once dailyliothyronine (Cytomel) 25 MCG tablet Take 25 mcg by mouth Daily Take 0.5 tabs po qd 06/11/2025 Discontinued (Reorder)Comment on above:Take 25 mcg by mouth once daily.lisinopril 10 mg oral tablet (7 sources)Angiotensin Converting Enzyme InhibitorStart: 94-40-5469hxle 1 tablet by mouth once daily in the morninglithium aspartate 20 mg oral capsule (7 sources)take 1 capsule by mouth once dailyNutritional Supplements (CREATINE) 750 MG CAPS Take 1 Capsule by mouth daily. Activetake 1 capsule by mouth once dailyLithium Aspartate 20 mg cap Take 1 capsule by mouth once daily. 0 Active Comment on above:Take 1 capsule by mouth once daily.memantine hydrochloride 5 mg oral tablet (6 sources)M-izsmhv-E-aspartate Receptor AntagonistStart: 07-20-2022 End: 75-34-8372rzwm 1 tablet by mouth once dailymemantine (NAMENDA) 5 MG tablet Take 1 Tablet by mouth daily. 30 Tablet 3 07/20/2022 ActiveoxyCODONE hydrochloride 5 mg oral tablet (4 sources)Opioid AgonistStart: 66-11-3321mblz 1 tablet by mouth every four hours as needed for painpantoprazole 20 mg delayed release oral tablet (4 sources)Proton Pump InhibitorStart: 89-41-5277fljc 1 tablet by mouth once dailypolyethylene glycol 3350 40915 mg powder for oral solution (4 sources)Osmotic LaxativeStart: 22-24-6857fbgzxsWIZB 10 mg oral tablet (4 sources)Start: 88-43-1214trip 1 tablet by mouth once dailytamsulosin hydrochloride 0.4 mg oral capsule (20 sources)alpha-Adrenergic BlockerStart: 11-24-2021 End: 95-10-2582fefq 1 capsule by mouth twice dailyFlomax 0.4 mg Cap 0.4 mg = 1 cap(s), Oral, BID, X 90 day(s), # 180 cap(s), Refills(s) 3, Pharmacy: [facility]/pharmacy #[id number], 167, cm, 10/05/21 11:32:00 EST, Height/Length Dosing, 83, kg, 10/05/21 11:32:00 EST, Weight Dosing Start Date: 11/24/21 Stop Date: 11/19/22 Status: OrderedStart: 81-63-3346coij 1 capsule by mouth once daily in the morningtake 1 capsule by mouth every twenty-four hours in the morningtamsulosin (FLOMAX) 0.4 mg capsule,extended release 24hr Take 1 capsule (0.4 mg total) by mouth in the morning. ActiveComment on above:0.4 mg once daily. testosterone cypionate 200 mg/ml injectable solution (18 sources)AndrogenStart: 84-71-5870Zjmk-Testosterone 200 mg/mL intramuscular solution 300 mg, IntraMuscular, q4wk, # 10 mL, Refills(s)1, Pharmacy: [facility]/pharmacy #[id number], 170, cm, 12/02/22 8:17:00 EST, Height/Length Dosing, 83.2, kg, 12/02/22 8:17:00 EST, Weight Dosing Start Date: 05/03/23 Status: OrderedStart: 48-35-5527Zvir-Testosterone 200 mg/mL intramuscular solution 300 mg, IntraMuscular, q4wk, # 10 mL, Refills(s)1, Pharmacy: [facility]/pharmacy #[id number], 167, cm, 10/05/21 11:32:00 EST, Height/Length Dosing, 83, kg, 05/10/22 10:08:00 EDT, Weight Dosing Start Date: 09/07/22 Status: OrderedStart: 05-89-7122Yxcy- Testosterone 200 mg/mL intramuscular solution 300 mg, IntraMuscular, q4wk, # 10 mL, Refills(s)1, Pharmacy: [facility]/pharmacy #[id number], 167, cm, 10/05/21 11:32:00 EST, Height/Length Dosing, 83, kg, 10/05/21 11:32:00 EST, Weight Dosing Start Date: 01/04/22 Status: OrderedStart: 38-56-9441vsljpkjerabw cypionate (DEPO- TESTOSTERONE) 200 MG/ML injection Inject 200 mg into the muscle once amonth. 12/10/2018 ActiveTestosterone Cypionate 200 MG/ML 1.5 mL Intramuscular EVERY 4 WEEKS ActiveComment on above:INJECT 1ML INTRAMUSCULARLY EVERY MONTHtraMADol hydrochloride 50 mg oral tablet (4 sources)Opioid AgonistStart: 11-51-6297biga 1 tablet by mouth every six hours as needed for painVitamin B Complex injectable solution (3 sources)Start: 93-46-3293Cieofec B Complex injectable solution Refill(s) 0 Start Date: 05/07/19 Status: OrderedVitamin D (17 sources)Start: 27-16-8184Whqybwf D International_Unit, Oral, qWeek, Refills(s) 0 Start Date: 08/31/21 Status: Ordered Completed/Discontinued Medications MedicationDrug Class(es)DatesSig (Normalized)Sig (Original)aspirin 325 mg delayed release oral tablet (5 sources)Platelet Aggregation Inhibitor, Nonsteroidal Anti-inflammatory Drug Start: 01-09-2018 End: 63-30-3769onvl 1 tablet by mouth once dailyaspirin, enteric coated (ASPIRIN, ENTERIC COATED) 325 mg EC tablet Take 325 mg by mouth once daily.2 01/09/2018 04/26/2023 Discontinued (Course of therapy completed) End: 17-22-5581ibed 1 tablet by mouth in the morningaspirin 325 mg tablet Take 1 tablet (325 mg total) by mouth in the morning. 02/18/2025 Discontinued(Therapy completed)Comment on above:Take 325 mg by mouth once daily.atomoxetine 60 mg oral capsule (1 source)Norepinephrine Reuptake Inhibitor End: 77-24-8614nlic 1 capsule by mouth once dailyatomoxetine (STRATTERA) 60 mg capsule Take 60 mg by mouth once daily. 0 04/26/2023 Discontinued (Course of therapy completed)Comment on above:Take 60 mg by mouth once daily.betamethasone 3 mg/ml / betamethasone acetate 3 mg/ml injectable suspension (1 source)CorticosteroidStart: 02-18-2025 End: 56 mg, intra-articular, One-Time Injection, Starting on e 02/18/25 at 1056, For 1 doseBupivacaine (4 sources)Amide Local AnestheticStart: 02-18-2025 End: 93-38-621020 mg, intra-articular, One-Time Injection, Starting on e 02/18/25 at 1056, For 1 doseStart: 10-08-2024 End: 84-61-072414 mg, intra-articular, One-Time Injection, Starting on Mon10/08/24 at 1440, For 1 doseStart: 06-11-2024 End: 44-90-923103 mg, intra-articular, One-Time Injection, Starting on Mon06/11/24 at 1129, For 1 doseStart: 11-02-2023 End: 90-89-7573RGMbtqazwmw HCl (MARCAINE) 0.5 % (5 mg/mL) injection 30 mg Creatine (1 source) End: 16-54-6340CFCQHKEM MONOHYDRATE (CREATINE ORAL) Indications: Leukopenia, unspecified type , Thrombocytopenia (HCC) , Hypothyroidism, unspecified type Take by mouth. 0 04/26/2023 Discontinued (Course of therapy completed)Comment on above:Take by mouth.1 ml dexamethasone phosphate 4 mg/ml injection (4 sources)CorticosteroidStart: 02-18-2025 End: 58 mg, intra-articular, One-Time Injection, Starting on Mon02/18/25 at 1056, For 1 doseStart: 10-08-2024 End: mg, intra-articular, One-Time Injection, Starting on Mon10/08/24 at 1440, For 1 doseStart: 06-11-2024 End: mg, intra-articular, One-Time Injection, Starting on Mon06/11/24 at 1129, For 1 doseStart: 11-02-2023 End: 37-87-7444qitDXZDEocrha (DECADRON) injection 8 mgfolic acid 1 mg oral tablet (1 source)Start: 02-05-2018 End: 57-86-6540ulqa 1 tablet by mouth once dailyfolic acid 1 mg tablet TAKE ONE TABLET BY MOUTH DAILY 30 tablet 5 02/05/2018 04/26/2023 Discontinued (Course of therapy completed)Comment on above:TAKE ONE TABLET BY MOUTH DAILYhydrALAZINE hydrochloride 25 mg oral tablet (20 sources)Arteriolar VasodilatorStart: 05-07-2024 End: 62-13-2743pckj 1 tablet by mouth three times dailyHydralazine [...] oil/D3 (VITAMIN-D + OMEGA-3 ORAL) (1 source)Start: 25-66-4676clzca-3s/dha/epa/fish oil/D3 (VITAMIN-D + OMEGA-3 ORAL) Take by mouth. 0 08/31/2021 ActiveComment on above:Take by mouth. Problems Active Problems Problem ClassificationProblemDateDocumented DateEpisodic/ChronicAcute cerebrovascular disease (1 source)Cerebrovascular accident; Translations: [Cerebral infarction, unspecified]40-18-0283UgxsmbfGnvsplmkdy disorders (5 sources)Specific academic or work inhibition; Translations: [Specific academic or work inhibition as adjustment reaction]Onset: ChronicAsthma (1 source)Asthmatic bronchitis; Translations: [Unspecified asthma, uncomplicated]15-35-5140TahswqnLodwgbi dysrhythmias (20 sources)Atrial fibrillation; Translations: [Unspecified atrial fibrillation] Onset: 062337-78-4284TtryhclSumdjsh kidney disease (10 sources)Chronic kidney disease stage 3; Translations: [Chronic kidney disease, stage III (moderate)]94-75-1253MtfrvedSolastclzfi and hemorrhagic disorders (14 sources)Platelet count below reference range; Translations: [Thrombocytopenia, unspecified]Onset: 285894-03-5002PedrnixHtyaxryphm associated with dizziness or vertigo (1 source)Vertigo; Translations: [Dizziness and giddiness]51-98-5174Kzjkolid Congestive heart failure; nonhypertensive (3 sources)Acute combined systolic and diastolic heart actutru50-03-5562Rqbrahc Diseases of white blood cells (7 sources)Neutropenia, unspecified; Translations: [Neutropenia]Onset: 37-79-4125AtmkyfaSjnsxuwdp usually diagnosed in infancy, childhood, or adolescence (5 sources)Attention deficit hyperactivity disorder, predominantly inattentive type; Translations: [Other specified behavioral and emotional disorders with onset usually occurring in childhood and adolescence]Onset: ChronicEssential hypertension (5 sources)Hypertensive disorder; Translations: [Essential (primary) hypertension]Onset: 378659-40-2898SydivlhKftfxmseileyt symptoms and ill- defined conditions (5 sources)Urge incontinence; Translations: [Urge incontinence of urine]Onset: 16-67-5418FptuewnAmpoiymalubya symptoms and ill-defined conditions (20 sources)Nocturia; Translations: [Poor stream of urine]87-10-0727Pgmzkhrg Hyperplasia of prostate (20 sources)Benign prostatic hypertrophy with outflow obstruction; Translations: [Benign prostatic hyperplasia with lower urinary tract symptoms]Onset: 560596-24-9980HcfsfwxTgirbhtslrld with complications and secondary hypertension (15 sources)Chronic kidney disease due to hypertension; Translations: [Hypertensive chronic kidney disease withstage 1 through stage 4 chronic kidney disease, or unspecified chronic kidney disease]Onset: 09-77-6403Dhupvnj Miscellaneous mental health disorders (1 source)Unspecified persistent mental disorders due to conditions classified elsewhereOnset: 947393-28-7099KhfhgmnZpdc wounds of extremities (1 source)Puncture wound of thumb of left hand; Translations: [Puncture wound with foreign body of left thumbwithout damage to nail, initial encounter]Onset: 86-87-7037CdgzglwcIzsydkpqfsfmxu (20 sources)Bilateral arthritis of knees; Translations: [Bilateral primary osteoarthritis of knee]Onset: 820567-45-3828WzhjscvLwhifwlmvqdi (7 sources)Osteoporosis; Translations: [Age-related osteoporosis without current pathological fracture]36-60-4760GutrxrvKqypw aftercare (4 sources)Long-term current use of 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; Translations: [intermediate manager (current) use of 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s]Onset: 41-31-3112YljbcnqpPdanw aftercare (7 sources)Long-term current use of drug therapy; Translations: [Other retirement (current) drug therapy]85-73-7878FvjvbhssQwkpo and ill-defined cerebrovascular disease (3 sources)Cerebrovascular attfzzz94-77-8989UdzvxkyQfqfy circulatory disease (1 source)Orthostatic hypotension; Translations: [Orthostatic hypotension] 23-52-3554FdnrmuieYdhaq connective tissue disease (10 sources)History of total knee arthroplasty; Translations: [Presence of left artificial knee joint]Onset: 688641-21-0912WmvukmsMamxn connective tissue disease (1 source)Knee joint replacementOnset: 721700-23-8257KvzlzgiNjtns connective tissue disease (1 source)Decrease in height; Translations: [Loss of height]92-67-9026Zcgdwwru Other diseases of kidney and ureters (1 source)Secondary hyperparathyroidism; Translations: [Secondary hyperparathyroidism of renal origin]ChronicOther diseases of kidney and ureters (1 source)Secondary hyperparathyroidism of renal originChronicOther diseases of kidney and ureters (2 sources)Cyst of kidney, acquired; Translations: [Cystic kidney disease, unspecified]EpisodicOther diseases of kidney and ureters (8 sources)Cyst of kidney; Translations: [Cyst of kidney, acquired]06-05-2024 EpisodicOther endocrine disorders (12 sources)Testicular hypofunction; Translations: [Testicular hypofunction] Onset: 95-68-3331AebajggYqowd endocrine disorders (17 sources)Male cbjdroqmhzvz38-95-9931LcqvsnlFqjtd endocrine disorders (5 sources)Testicular hypofunction; Translations: [TESTICULAR HYPOFUNCTION] Onset: 18-20-3620AidhgneKxedl endocrine disorders (4 sources)Testicular hyperfunction; Translations: [TESTICULAR HYPERFUNCTION] Onset: 90-62-9470QgpixtwLiifp injuries and conditions due to external causes (17 sources)H/O: head tbhoxl84-33-5866UduavhapGrkcn lower respiratory disease (10 sources)Snoring; Translations: [Snoring]94-90-1819IhhrvogkQxjgb male genital disorders (17 sources)Secondary erectile enfrnwvanjc20-20-4886XnyliyfLrkvz male genital disorders (8 sources)Male erectile dysfunction, unspecified; Translations: [Erectile dysfunction]Onset: 46-77-9185IlortpjNvlmz nervous system disorders (5 sources)Disturbance of attention; Translations: [Attention and concentration deficit]Onset: 697061-54-0591QgzfokvBntrb nervous system disorders (5 sources)Impaired executive functioning; Translations: [Frontal lobe and executive function deficit]Onset: 544193-30-3375ZohfqqkUvipt nervous system disorders (5 sources)Cognitive deficit in communication skills; Translations: [Cognitive communication deficit]Onset: 027187-56-1352UaiaznjSgjsp nervous system disorders (1 source)Aphasia; Translations: [Aphasia]98-58-2351WemgptiIxjmh nervous system disorders (1 source)Attention or concentration deficitOnset: 256411-75-3058Kdcoiwu Other nervous system disorders (1 source)Frontal lobe and executive function deficitOnset: ChronicOther nervous system disorders (1 source)Cognitive communication deficitOnset: 838880-12-1128HmsvcfuZxhkn nervous system disorders (1 source)Other symptoms and signs involving cognitive functions and awareness; Translations: [Other signs and symptoms involving cognition]EpisodicOther nervous system disorders (1 source)Dysarthria; Translations: [Dysarthria and anarthria]76-13-4906Tasolwql Other non-traumatic joint disorders (1 source)Arthropathy, unspecified, lower legOnset: 874543-95-3069Qmnwxlm Other non-traumatic joint disorders (1 source)Pain in right knee; Translations: [Pain in right knee]Onset: 90-62-3496CajguohgNyhud nutritional; endocrine; and metabolic disorders (4 sources)Overweight in adulthood with body mass index of 25 or more but less than 30; Translations: [Body mass index (BMI) 28.0-28.9, adult]EpisodicOther nutritional; endocrine; and metabolic disorders (3 sources)Eemwkwqzcc20-30-9430CdbadpxtHqfcb screening for suspected conditions (not mental disorders or infectious disease) (2 sources)Encounter for screening for malignant neoplasm of prostate; Translations: [Screening for malignant neoplasm of colon done]Onset: 03-09-2022 EpisodicResidual codes; unclassified (9 sources)Sleep apnea; Translations: [Sleep apnea, unspecified]Onset: 397392-08-2440TpagnloSjavrzhe codes; unclassified (20 sources)Obstructive sleep apnea syndrome; Translations: [Obstructive sleep apnea (adult) (pediatric)]Onset: 656186-44-2360UqqahyaWwhlssce codes; unclassified (2 sources)Obstructive sleep apnea (adult) (pediatric); Translations: [Obstructive sleep apnea (adult)(pediatric)]ChronicResidual codes; unclassified (16 sources)Hypersomnia; Translations: [Hypersomnia, unspecified]Onset: 146133-50-2857OyzdjvoHinhliys codes; unclassified (3 sources)Periodic limb movement disorder; Translations: [Periodic limb movement disorder]Onset: 459513-57-8177ZxqbrnlIwwvgdwp codes; unclassified (1 source)Unspecified sleep apneaOnset: 586300-51-7250FuehhdiEomnvccg codes; unclassified (3 sources)Periodic leg movements of sleep ; Translations: [Periodic limb movement disorder]Onset: 412676-17-0606OczswrnTtzfgilr codes; unclassified (2 sources)Sleep deprivation; Translations: [Sleep deprivation]07-17-2024 EpisodicSpondylosis; intervertebral disc disorders; other back problems (15 sources)Cervical spondylosis; Translations: [Other spondylosis with myelopathy, cervical region]Onset: 965930-98-7990ZyzaafdCgblzweqdjc; intervertebral disc disorders; other back problems (20 sources)Cervical spine ankylosis; Translations: [Fusion of spine, cervical region]Onset: 184090-75-5391GzfsnkiwCszquay disorders (20 sources)Hypothyroidism; Translations: [Hypothyroidism, unspecified]Onset: 06-28-2011 Resolved: 954894-99-5966DkaxhksFbwpwflydqvi (3 sources)Patient encounter ouofmr46-74-1698Yeataskubbkx (2 sources)Puncture wound of left thumb with foreign uons51-12-6418Ffkerjfwmnym (2 sources)Other persistent atrial fibrillation; Translations: [Other persistent atrial fibrillation]Onset: 11-27-2023 Past or Other Problems Problem ClassificationProblemDateDocumented DateEpisodic/ChronicAllergic reactions (10 sources)Eczema; Translations: [Dermatitis, unspecified]Onset: 05-29-2019 08-64-7102CwinfjkbBqjlfwb kidney disease (1 source)Chronic kidney diseaseDeficiency and other anemia (6 sources)Anemia; Translations: [Anemia, unspecified]Onset: 12-06-2017 35-56-2897RxxqotchEsextqjwqn and other anemia (1 source)Anemia, unspecifiedOnset: 116534-59-7456JbgvyirnOloqjtprliwu injury (7 sources)Traumatic brain injury; Translations: [Unspecified intracranial injury with loss of consciousness of unspecified duration, initial encounter] Onset: 303292-86-3569TmvlulviIhrtbojmixt deficiencies (10 sources)Cobalamin deficiency; Translations: [Deficiency of other specified B group vitamins]Onset: 038610-05-8470TmjbxyzyOocrr aftercare (1 source)Care involving other physical therapyOnset: EpisodicOther aftercare (1 source)Encounter for occupational therapyOnset: 411806-73-0762Msavbnna Other aftercare (1 source)Encounter for vocational therapyOnset: 454272-55-9039Vcqqdaum Other circulatory disease (2 sources)Personal history of other diseases of the circulatory system; Translations: [Personal history of other diseases of the circulatory system] Onset: 91-99-1810QklifxdeKqiyv connective tissue disease (5 sources)Muscle weakness; Translations: [Muscle weakness (generalized)]Onset: 134785-40-4683UjangzlqHtiki connective tissue disease (1 source)Impingement syndrome of left shoulder; Translations: [IMPINGEMENT SYNDROME LEFT SHOULDER]Onset: 52-33-8607GilhlswiPqwhz connective tissue disease (1 source)Impingement syndrome of right shoulder; Translations: [IMPINGEMENT SYNDROME RIGHT SHOULDER]Onset: 99-14-1384UhrxsimjFdwlz connective tissue disease (1 source)Muscle weakness (generalized)Onset: 919370-31-8865FncbkhooHjses nervous system disorders (5 sources)Incoordination; Translations: [Unspecified lack of coordination] Onset: 355872-84-9765XidqdcpbKjjdm nervous system disorders (5 sources)Impaired cognition; Translations: [Other symptoms and signs involving cognitive functions and awareness]Onset: 256993-90-3436DcrnhyazRvkhe nervous system disorders (1 source)Lack of coordinationOnset: 548589-77-2956HbxhwjoySwfxd skin disorders (1 source)Vitiligo; Translations: [Vitiligo]Onset: 067978-59-4078Wrmndxbu Rehabilitation care; fitting of prostheses; and adjustment of devices (15 sources)Patient encounter status; Translations: [Other physical therapy] Onset: 031639-98-7831SspnpkcaIjikgxlg codes; unclassified (10 sources)Amnesia; Translations: [Other amnesia]Onset: EpisodicResidual codes; unclassified (2 sources)Memory lossOnset: 566078-96-0312UsmydvurAgcfnhab codes; unclassified (2 sources)Other specified postprocedural states; Translations: [Other specified postprocedural states]Onset: 46-67-8415OebrureiSarfasxzwwj injury; contusion (6 sources)Traumatic hematoma; Translations: [Contusion of unspecified part of head, initial encounter]Onset: 597946-49-9646EfgfxcurBfejx infection (7 sources)Verruca vulgaris; Translations: [Viral wart, unspecified]Onset: 133007-77-7688Amtyfric Results Test NameValueInterpretationReference RangeFacilityBilirubin Test strip Ql (U) Ordered By: Scot Hutchison on 09-02-7097Pkzfsojkk Ql (U)NegativeNegative St. Vincent HospitalFructosamineon 56-55-0616Vkceohfgfiug272 umol/L Normal0-285The [facility] Physician GroupComment on above:Result Comment: Published reference interval for apparently healthy subjects between age 20 and 60 is 205 - 285 umol/L and in a poorly controlled diabetic population is 228 - 563 umol/L with a mean of 396 umol/L. Performed at: [address] [id number] Wire Stitcher: Aleks Ferreira PhD, Phone: [phone] PERFORMED BY: [place] [id number] PATHOLOGIST BABY NURSE ABBY THORNTON M.D.Performed By: #### FRUC #### [facility] ,Fructosamine [Moles/volume] in Serum or PlasmaOrdered By: Scot Hutchison on 03-99-4652Slqvrdfgszfx [Moles/Vol]209 umol/L0-285St. Vincent HospitalComment on above:Published reference interval for apparently healthysubjects between age 20 and 60 is 205 - 285 umol/L and in apoorly controlled diabetic population is 228 - 563 umol/Lwith a mean of 396 umol/L.Performed at: [facility] [id number] Director: Aleks Ferreira PhD, Phone: [phone] [Mass/volume] in Urine by Test stripOrdered By: Scot Hutchison on 07-23-2025 Glucose Test strip (U) [Mass/Vol]Normal mg/dLNormalSt. Vincent HospitalHemoglobin Test strip Ql (U)Ordered By: Scot Hutchison on 07-23-2025 Hemoglobin Ql (U)NegativeNegativeSt. Vincent HospitalNitrite Test strip Ql (U)Ordered By: Scot Hutchison on 46-24-8704Mtolorp Ql (U)Negative NegativeSt. Vincent HospitalProtein Test strip (U) [Mass/Vol] Ordered By: Scot Hutchison on 33-88-4104Untfigz (U) [Mass/Vol]NegativeNegative [facility] Hospitalpecific gravity Test strip (U) [Rel density] Ordered By: Scot Hutchison on 77-42-4244Efhwfjsx gravity (U) [Rel density]1.007 1.001-1.030St. Vincent HospitalUrinalysisOrdered By: Scot Hutchison on 10-50-5652Uvtnhlbjmo (U)ClearCleWVUMedicine Barnesville Hospital Comment on above:Order Comment: Name Collection Type:: Clean-Voided Midstream Performed By: #### UA #### [address] [address] USAColor (U)ColorlessYellowSt. Vincent Hospital Comment on above:Order Comment: Name Collection Type:: Clean-Voided Midstream Performed By: #### UA #### [facility] [address] [place] [address] USAKetones Ql (U)NegativeNegativeSt. Vincent HospitalComment on above:Order Comment: Name Collection Type:: Clean-Voided MidstreamPerformed By: #### UA #### [facility] [address] [place], [place] [address] USALeukocyte esterase Test strip Ql (U)NegativeNegChildren's Hospital for RehabilitationComment on above:Order Comment: Name Collection Type:: Clean-Voided MidstreamPerformed By: #### UA #### [place] [address] USApH (U)6.0 [pH]5.0-9.0[facility] Comment on above:Order Comment: Name Collection Type:: Clean-Voided Midstream Performed By: #### UA #### [facility] [address] [place] [address] USAUrinalysison 99-03-6963Wbztlergy,UrineNegativeNormal NegativeHca Florida Westside Hospital Physician GroupComment on above:Order Comment: Name Collection Type:: Clean-Voided MidstreamPerformed By: #### UA #### [facility] [address] [place], [place] [address] USAGlucose Ql (U)NormalNormalNormalThe [facility] Physician GroupComment on above:Order Comment: Name Collection Type:: Clean-Voided MidstreamPerformed By: #### UA #### [facility] [address] [place], [place] [address] USANitrite,UrineNegativeNormalNegativeThe [facility] Hospital Physician GroupComment on above:Order Comment: Name Collection Type:: Clean-Voided MidstreamPerformed By: #### UA #### [facility] [address] [place] [address] USAOccult Blood,UrineNegativeNormalNegativeThe [facility] Hospital Physician GroupComment on above:Order Comment: Name Collection Type:: Clean- Voided MidstreamResult Comment: PERFORMED BY: [place] [address] PATHOLOGIST BABY NURSE ABBY THORNTON M.D.Performed By: #### UA #### [facility] [address] [place], [place] [address] USAProtein,UrineNegativeNormalNegativeThe [facility] Physician GroupComment on above:Order Comment: Name Collection Type:: Clean-Voided MidstreamPerformed By: #### UA #### [place] [address] USASpecificy [place],Urine1.659Hycyrh1.001-1.030The [facility] Physician GroupComment on above:Order Comment: Name Collection Type:: Clean- Voided MidstreamPerformed By: #### UA #### [place] [address] USAUrobilinogen,UrineNormalNormalNormalThe [facility] Physician GroupComment on above:Order Comment: Name Collection Type:: Clean- Voided MidstreamPerformed By: #### UA #### [place] [id number] USAUrobilinogen Test strip (U) [Mass/Vol]Ordered By: Scot Hutchison on 86-58-3458Vfhpqfgqkhzi (U) [Mass/Vol]Normal mg/dLNormProtestant HospitalX-ray reportOrdered By: Waqas Jarrell on 38-19-4522Hysqr reportTOGUS VA MED[facility]ENTER [facility] [address] [place] [address] XRay Report Signed Patient: Vianey Lacey MR#: [id number] : 1960 Acct:[id number] Age/Sex: 65 / M ADM Date: 5 Loc: [facility] Room: Type: [facility] Attending Dr: Scot Hutchison II, MD Copies to: Scot Hutchison MD~ Ordering Provider: Scot Hutchison MD Date of Service: 07/23/25 XR/XR femur RT 2V*: M17.11 - Unilateral primary osteoarthritis, right knee ([id number]) XR/XR tibia fibula RT 2V*: M17.11 - Unilateral primary osteoarthritis, right knee plain film imaging of the right femur and right tibia and fibula Preoperative assessment for right total knee arthroplasty Hip symmetric without abnormality. Femurs symmetric. No acute bony finding. Unremarkable left knee arthroplasty. Extensive right medial knee degeneration. Unremarkable tibia and fibula. Ankle mortiseis symmetric adequate leg lengths. XR/XR femur RT 2V* IMPRESSION: Extensive medial right knee degeneration. Impression dictated by: Waqas Jarrell M.D. 07/23/2025 4:02 PM Dictation Location: [place] [address] Transcribed By: [facility] 07/23/25 1602 Dictated By: Waqas Jarrell DO 07/23/25 1559 Signed By: 07/23/[address] Vincent HospitalXR tibia fibula RT 2V*on 44-95-2750MV tibia fibula RT 2V*[facility] [address] [place] [address] XRay Report Signed Patient: Vianey Lacey MR#: [id number] : 1960 Acct:[id number] Age/Sex: 65 / M ADM Date: 07/23/25 Loc: [facility] Room: Type: [facility] Attending Dr: Scot Hutchison II, MD Copies to: Scot Hutchison MD Ordering Provider: Scot Hutchison MD Date of Service: 07/23/25 XR/XR femur RT 2V*: M17.11 - Unilateral primary osteoarthritis, right knee ([id number]) XR/XR tibia fibula RT 2V*: M17.11 - [...] Jarrell M.D. 07/23/2025 4:02 PM Dictation Location: [facility]23 Transcribed By: [facility] 07/23/25 1602 Dictated By: Waqas Jarrell DO 07/23/25 1559 Signed By: 07/23/25 1602[facility]ician Flhqv69ny 52-19-407952Lezdrohdr stress test result from 05/29/2025: George Loza [...] note faxed to orthopedic office performing his surgery.NormalUnWilson HealthOrders Onlyon 42-81-3350Xojnur [id number] Vianey Lacey 1960 M Date Provider Department [place] 06/02/2025 [id number], HISTORICAL [facility] Family History Problem Relation Age of Onset Cancer Mother Diabetes Mother Coronary artery disease Father Stroke Father Cancer Father Family Status - Relation Status Age at Mother Father Sister Brother DeceasedNormalUniversity University Hospitals Beachwood Medical CenterGlucose mean value [Mass/volume] in Blood Estimated from glycated hemoglobinOrdered By: Scot Hutchison on 20-61-8345Onlswnt glucose Estimated from glycated hemoglobin (Bld) [Mass/Vol]100 mg/dLSt. Vincent HospitalHemoglobin A1c percentage Ordered By: Scot Hutchison on 33-10-9029NfF3s (Bld) [Mass fraction]5.1 %4.5-6.2 [facility] HospitalComment on above:ADA RECOMMENDED LIMIT 4.0 - 6.0ADA THERAPEUTIC TARGET < 7.0ACTION SUGGESTED> 7.0Laboratory - Chemistry and Chemistry - challengeOrdered By: Scot Smallle on 47-46-9769Seqfwdi [Mass/Vol] 4.2 g/dL3.4-5.0St. Vincent HospitalNo Panel InformationOrdered By: Scot [place] on 281437-Yfwappz Vitamin D Total78.3 ng/mLSt. Vincent HospitalComment on above:<20 ng/mL Vit D bmovqehdf29-<30 ng/mL Vit D tyqjislqnlmi43-087 ng/mL Vit D sufficient>100 ng/mL Potential Toxicity Miscellaneous TestCOMMENT.St. Vincent HospitalComment on above:Test Ordered: [id number] Nicotine and Metabolite, QuantNicotine <1.0 ng/mL Reference Range: .Thistest was developed and its performance characteristicsdetermined by [employer]. It has not been cleared orapproved by the Food and Drug Administration.Nicotine levels greater than 2.0 are consistent with theuse of tobacco or tobacco cessation products.Cotinine <1.0 ng/mL Reference Range: .This test was developed and its performance characteristicsdetermined by [employer]. It has not been cleared orapproved by the Food and Drug Administration.Cotinine levels greater than 20.0 are consistent withtheuse of tobacco or tobacco cessation products.Performed at: [facility] [employer] [id number] Director: Nicole Calles MD, Phone: [phone] at: [address] [id number] Director: Aleks Ferreira PhD, Phone: [phone] Regarding lab results from 02/12/2025: MD Lakshmi Stone MA Please let him know that his serum creatinine is normal. Thank you. Patient's informed.[facility] CenterXR KNEE RT MIN 4 VWSon 34-37-1388LL KNEE RT MIN 4 VWSXR KNEE RT [...] by Shawanda Duncan MD on 02/19/2025 4:30 PMNMercy Health West Hospital$ Large Joint Injection: knee, R kneeon 66-50-4891Udxqeeajnogandres Anthony MD 02/18/2025 11:33 AM $ Large [...] used to prep the skin.). MANUALLY TRANSCRIBED [facility] CenterOrders Onlyon 02-13-2025 Orders [id number] Vianey Lacey 1960 M Date Provider Department Center 02/13/2025 [id number], HISTORICAL [facility] [place] [facility] Family History Problem Relation Age of Onset Cancer Mother Diabetes Mother Coronary artery disease Father Stroke Father Cancer Father Family Status - Relation Status Age at Mother Father Sister Brother DeceasedNormalUniSt. Vincent HospitalOffice Visiton 15-40-4235Hnpqmo-up [id number] Vianey Lacey 1960 M Date Provider Department Center 01/21/2025 271-GEORGE LOZA [facility] Family History Problem Relation Age of Onset Cancer Mother Diabetes Mother Coronary artery disease Father Stroke Father Cancer Father Family Status - Relation Status Age at Mother Father Sister Brother Level of Service:52676 [place] OFFICE/OUTPATIENT ESTABLISHED MOD [facility] 30 [facility]36on 59-12-416928Zdvbzix's would like you to review his most recent labs from 11/20/2024 and see if he should start lisinopril. 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 Nitza says he never started lisinopril because they were keeping an eye on his renal function. Recent BP's have been 141/84, 136/83, 143/87, 141/83. Also, she is looking into buying an infrared sauna, but wasn't sure how you felt about PJ using it with his heart and kidney issues. Please advise. Thanks![facility] CenterUrology Office/Clinic Noteon 49-55-9714Nhfpcdj Office/Clinic NoteUrology Office/Clinic Note Chief Complaint 1 year f/u HPI Staff 64yr old male pt here for 1yr f/u with PSA. Previous Dx: BPH with urinary obstruction, hypogonadism male, urge incontinence, ED *Tamsulosin 0.4mg QD PSA 09/06/21 - 0.70 06/15/22 - 0.79 He did have labs done @ [facility] but no PSA Dysuria: denies Incomplete [...] -Cont Tamsulosin wo changes. Refills sent to [facility]. -Complete PSA level soon. Will call [...] [facility] [address], [place] [phone] Additional Instructions: 1 yr w/ PSA and [...] Oral, TID levothyroxine 150 (more content not included)...[facility] HospitalComment on above:Result Comment: Electronically Signed By: Vianey SILVERMAN MD\.br\Date and Time Signed: 10/21/24 11:59 EST\.br\Electronically Co- Signed By: Nicki Jackson.br\Date and Time Co-Signed: 10/21/24 11:57 EST$ Large Joint Injection: R kneeon 28-56-5034Mtkdamirzkdandres Anthony MD 10/08/2024 2:51 PM $ Large [...] prepped with betadine and alcohol.). MANUALLY TRANSCRIBED RESULTSKettering Health TroyAmbulatory Visit Summaryon 58-23-8787Ihwzzhxsjz Visit SummaryAmbulatory Visit Summary VIANEY LACEY :1960 [...] PRIETO, Vianey Crawford Where: [facility] [place] [address]- Medications What How Much When Instructions Unchanged [...] you for choosing us for your care. [facility] HospitalOffice Visiton 38-29-3428Dijmns- up [id number] Vianey Lacey 1960 Provider Department Center 07/16/2024 BAKARI CARSON [facility] Family History Problem Relation Age of Onset Cancer Mother Diabetes Mother Coronary artery disease Father Stroke Father Cancer Father Family Status - Relation Status Age at Mother Father Level of Service:76830 [place] OFFICE/OUTPATIENT ESTABLISHED LOW MDM 20 [facility]$ Large Joint Injection: R kneeon 06-11-2024 [...] prepped with betadine and alcohol.). MANUALLY TRANSCRIBED RESULTSProRandolph Medical Center Health SystemOrders Onlyon 06-11-2024 Orders [id number] Vianey Lacey 1960 Provider Department Center 06/11/2024 Isa-GEORGE LOZA [facility] Family History Problem Relation Age of Onset Cancer Mother Diabetes Mother Coronary artery disease Father Stroke Father Cancer Father Family Status - Relation Status Age at Mother FatherNormalUniversity of St. Luke'S Health – The Woodlands HospitalErythrocyte distribution width Auto (RBC) [Ratio]on 69-99-0429Qzhqvzcvrju distribution width (RBC) [Ratio]13.3 %11.0-15.0[facility]. [facility] HospitalEstimated glomerular filtration rate (GFR) non- Americanon 58-35-6430GJQ/1.73 sq M.predicted among non-blacks MDRD (S/P/Bld) [Vol rate/Area]mL/min/{1.73_m2}>=60St. [facility] HospitalHematocrit Auto (Bld) [Volume fraction]on 61-48-7160Rqcmygphit (Bld) [Volume fraction]45.4 %42.0-54.0[facility]. [facility] HospitalHemoglobin [Mass/volume] in Bloodon 24-29-4156Uvfftmhxly (Bld) [Mass/Vol]15.4 g/dL14.0-18.0 [facility] HospitalLaboratory - Chemistry and Chemistry - challengeon 91-54-2491Anptknu [Mass/Vol]3.8 g/dL3.4-5.0St[facility] HospitalCalcium [Mass/Vol]8.9 mg/dL8.5-10.1FSumma Health Barberton CampusChloride [Moles/Vol]101 mmol/X66-522KxmpnetpySt. Vincent HospitalCO2 [Moles/Vol]31.2 mmol/L21.0-32.0St[facility] HospitalCreatinine [Mass/Vol]1.06 mg/dL0.70-1.30St. [facility] HospitalGFR/1.73 sq M.predicted MDRD (S/P/Bld) [Vol rate/Area]mL/min/{1.73_m2}>=60St. [facility] HospitalGlucose [Mass/Vol]91 mg/gX94-013ZrafitjzaSt. Vincent Hospital Magnesium [Mass/Vol]1.9 mg/dL1.8-2.4FSumma Health Barberton CampusPotassium [Moles/Vol]3.9 mmol/L3.5-5.1FProMedica Flower Hospitalodium [Moles/Vol] 138 mmol/A255-846IkwrwngshSt. Vincent HospitalUrate [Mass/Vol]4.7 mg/dL 3.5-7.2FSumma Health Barberton CampusUrea nitrogen [Mass/Vol]18.0 mg/dL 7.0-18.0St. Vincent HospitalUrea nitrogen/Creatinine [Mass ratio] 17.0 mg/mgSt. Vincent HospitalBilirubin Ql (U)NegativeNEGATIVE St. [facility] HospitalGlucose (U) [Mass/Vol]NegativeNEGATIVESt. Vincent HospitalKetones Ql (U)NegativeNEGATIVESt. Vincent HospitalpH (U)5.5 [pH]5.0-9.0[facility] Community Hospitalpecific gravity (U) [Rel density]1.0201.005-1.025St. Vincent HospitalUrobilinogen Qn (U)0.2 {Brenda'U}/dL0.2-1.0[facility]. [facility] HospitalLaboratory - Specimen informationon 61-70-1709Cvshimlqap (U)CLEARCLEARFSumma Health Barberton CampusColor (U)YELLOWYELLOWSt. Vincent HospitalLaboratory - Urinalysison 41-20-6610Ewayyvogb esterase Test strip Ql (U)NegativeNEGATIVE St. Vincent HospitalMucus Ql (Urine sed)NONE SEENNONE SEENSt. Vincent HospitalNitrite Ql (U)NegativeNEGATIVESt. Vincent HospitalProtein (U) [Mass/Vol]6.9 mg/dL<=11.9[facility] Protein Ql (U)NegativeNEG/TRACESt. Vincent HospitalLeukocytes [#/volume] corrected for nucleated erythrocytes in Blood by Automated counon 31-55-2834IRT corrected for nucl RBC Auto (Bld) [#/Vol]3.2 10 3/uLLow4.0-11.0 [facility] HospitalMCH Auto (RBC) [Entitic mass]on 75-42-7060VBA (RBC) [Entitic mass]29.7 pg25.9-34.0St. [facility] HospitalMCHC Auto (RBC) [Mass/Vol]on 43-90-5871EWXI (RBC) [Mass/Vol]33.9 g/dL29.9-35.2FKettering Health PrebleV Auto (RBC) [Entitic vol]on 59-49-5264KSP (RBC) [Entitic vol]87.5 fL80.0-94.0St. [facility] HospitalNo Panel Informationon 92-53-468020445052-Lmnaalp Vitamin D Total74.8 ng/mLSt. Vincent HospitalComment on above:<20 ng/mL Vit D wjkbolduv97-<30 ng/mL Vit D mzqlyghpkulc89-316 ng/mL Vit D sufficient>100 ng/mL Potential Toxicity Parathyroid Hormone (Intact)34 pg/tU19-73CbjwcfanjSt. Vincent Hospital Comment on above:Performed at: [employer] [facility] [place] [id number] Director: Aleks Ferreira PhD, Phone: [phone] Level 2.9 mg/dL2.6-4.7FSumma Health Barberton CampusUrine BacteriaNONE SEEN #/HPF NONE [facility] HospitalUrine Occult BloodNegativeNEGATIVE St. Vincent HospitalUrine Random Mrnykgfouo160.55 mg/dL20.00-300.00 St[address] [facility] HospitalUrine RBCNONE SEEN #/HPF0-2FSumma Health Barberton CampusUrine Squamous Epithelial CellsRARE #/LPFNONE/RARESt. Vincent HospitalUrine WBCNONE SEEN #/HPFNONE [facility] HospitalPlatelet mean volume Auto (Bld) [Entitic vol]on 11-29-9378Rvvevekw mean volume (Bld) [Entitic vol]9.5 fL9.5-13.5FSumma Health Barberton Campus Platelets Auto (Bld) [#/Vol]on 53-96-1930Purbwfmct (Bld) [#/Vol]126 10 3/uLLow 150-450St. Vincent HospitalRBC Auto (Bld) [#/Vol]on 37-11-8838GVW (Bld) [#/Vol]5.19 10 6/uL4.70-6.10[facility] Community Hospitalerum or plasma anion gap determinationon 99-69-6160Qzuhr gap [Moles/Vol]9.7 mmol/L [facility] HospitalUrine protein/creatinine ratioon 06-03-2024 Protein/Creatinine (U) [Ratio]0.06[facility] HospitalRemindermetropolitan [facility] 28-08-5982RmkckzeehGnnchalca From: Melissa Nash LPN To: N - Clinical; Sent: 05/30/2024 15:23:45 EDT Show up: 04/28/2034 07:00:00 EDT Subject: colonoscopy recall Due Date/Time: 05/29/2034 07:00:00 EDT Reminder/Recall Patient due for screening colonoscopy 05/29/2034.[facility] HospitalAmbulatory Visit Summaryon 13-19-7540Wpwzxpimvt Visit SummaryAmbulatory Visit Summary VIANEY LACEY :1960 [...] Vianey SILVERMAN MD Where: [facility] [address] [address]- Medications What How Much When Instructions Unchanged [...] you for choosing us for your care. [facility]$ Large Joint Injection: R knee on [id number] Anthony MD 11/02/2023 11:03 AM $ Large [...] prepped with betadine and alcohol.). MANUALLY TRANSCRIBED RESULTSKettering Healthsician Referralon 15-06-7887Yvrsztrkd [id number]#1.00TIFF Rey [facility] HospitalTelephone Encounteron 20-05-6175Qirudfhtdovjy Authentication Interface Message TextPatient has not been seen by this specialist in more than 1 year. Please contact patient to schedule office visit. Thank TashMaria G [facility] SystemCNOVon [id number] Visit (SPMESH) VIANEY LACEY ([id number]) 1960 M Date Time Provider Department 04/26/23 11:00 AM [facility] During your visit today, we recorded [...] PALPATION: no palpable masses (more content not included)...NormalOhiohealthTESTOSTERONE, TOTALon 05-86-5208Cduuzjilyldq [Mass/Vol]347 ng/dL Kjqcnp733-691YhaUniversity Hospitals Samaritan Medical CenterComment on above:Result Comment: Adult male reference interval is based on a population of healthy nonobese males (BMI <30) between 19 and 39 years old. Brad, et.al. JCEM 2017,102;4879-9014. PMID: [id number].Performed By: #### TESTTOT #### [facility] [address] [place] [address] Dr. Reuben MorrisonXR TSPINE 3 VIEWSon 55-02-3361RM TSPINE 3 VIEWSEXAMINATION: XR LSPINE MIN 4 [...] Electronically authenticated by: ALFREDITO LOAIZA Date: 2022-11-18 16:11[facility] HospitalTESTOSTERONE, TOTALon 95-79-9363Qfcjtjzkudhu [Mass/Vol]993 ng/dLCritically waxd360-707Jas [facility] HospitalComment on above:Result Comment: Adult male reference interval is based on a population of healthy nonobese males (BMI <30) between 19 and 39 years old. Brad, et.al. JCEM 2017,102;1721-6916. PMID: [id number].Performed By: #### TESTTOT #### [facility] [address] [place] [address] Dr. Reuben Prajapati AUTO DIFFon 36-59-3045RJQA #0.0 103/ulNormal0.0-0.1The [facility] Samaritan HospitalComment on above:Performed By: #### CBC #### [facility] [address] [place] [address] Dr. Reuben Lrsophils/100 WBC (Bld)0.4 %Normal0.2-2.0[facility] Comment on above:Performed By: #### CBC #### [facility] [address] [place] [address] Dr. Reuben Turner #0.1 103/ulNormal0.0-0.7The [facility]aritan HospitalComment on above: Performed By: #### CBC #### [facility] [address] [place] [address] Dr. Reuben Allenosinophils/100 WBC (Bld)1.3 %Normal0.9-7.0The [facility] Comment on above:Performed By: #### CBC #### [facility] [address] [place] [address] Dr. Reuben Allenrythrocyte distribution width (RBC) [Ratio]14.3 %Cpiboh27.0-15.0 The [facility]arth HospitalComment on above:Performed By: #### CBC #### [facility] [address] [address] [address] Reuben MorrisonHematocrit (Bld) [Volume fraction]48.9 %Bfnhjx84.0-54.0The [facility]itan HospitalComment on above:Performed By: #### CBC #### [facility] [address] [place] [address] Dr. Reuben MorrisonHemoglobin (Bld) [Mass/Vol]16.6 g/dGNflsje92.0-18.0The [facility] HospitalComment on above:Performed By: #### CBC #### [facility] [address] [place] [address] Dr. Reuben Retana #0.01 10e3/ulNormal0.00-0.03The [facility]itan HospitalComment on above:Performed By: #### CBC #### [facility] [address] [place] [address] Dr. Reuben Retana %0.2 %Normal0.0-0.5The [facility]itan HospitalComment on above: Performed By: #### CBC #### [facility] [address] [place] [address] Dr. Reuben Amaya #1.1 103/ulCritically low1.2-3.8The [facility] Comment on above:Performed By: #### CBC #### [facility] [address] [place] [address] Dr. Reuben Jean Baptistemphocytes/100 WBC (Bld)24.3 %Kscfte06.5-60.0The [facility] HospitalComment on above:Performed By: #### CBC #### [facility] [address] [place] [address] Dr. Reuben PlazaUAL DIFF REQNONormalThe [facility]itan HospitalComment on above: Performed By: #### CBC #### [facility] [address] [place] [address] Dr. Reuben Bhardwaj (RBC) [Entitic mass]29.5 gsMxxarp98.9-34.0The [facility] HospitalComment on above:Performed By: #### CBC #### [facility] [address] [address] [address] Reuben MottaHC (RBC) [Mass/Vol]33.9 g/rZBfdglj32.9-35.2The [facility] HospitalComment on above:Performed By: #### CBC #### [facility] [address] [place] [address] Dr. Reuben MottaV (RBC) [Entitic vol]86.9 tKExrlpa64.0-94.0The [facility] HospitalComment on above:Performed By: #### CBC #### [facility] [address] [place] [address] Dr. Reuben Astudillo #0.5 103/ulNormal0.3-0.8The [facility]itan HospitalComment on above:Performed By: #### CBC #### [facility] [address] [place] [address] Dr. Reuben Blevinsocytes/100 WBC (Bld)9.6 %Normal1.7-12.0The [facility] Comment on above:Performed By: #### CBC #### [facility] [address] [place] [address] Dr. Reuben Meredith #3.0 103/ulNormal1.4-6.5The [facility] HospitalComment on above:Performed By: #### CBC #### [facility] [address] [place] [address] Dr. Reuben Lanzautrophils/100 WBC (Bld)64.2 %Mptpwe49.0-75.0The [facility] HospitalComment on above:Performed By: #### CBC #### [facility] [address] [place] [address] Dr. Reuben Sorianolet mean volume (Bld) [Entitic vol]9.7 fLNormal9.5-13.5The [facility] HospitalComment on above:Performed By: #### CBC #### [facility] [address] [place] [address] Dr. Reuben MorrisonPLT130 103/ulCritically pdk318-213Lvj [facility] HospitalComment on above:Result Comment: plts. appear slightly decreasedPerformed By: #### CBC #### [facility] [address] [place] [address] Dr. Reuben MorrisonRBC5.63 106/ulNormal4.70-6.10The [facility]itan HospitalComment on above:Performed By: #### CBC #### [facility] [address] [place] [address] Dr. Reuben MorrisonWBC4.7 103/ulNormal4.0-11.0The [facility] HospitalComment on above: Performed By: #### CBC #### [facility] [address] [place] [address] Dr. Reuben MorrisonTESTOSTERONE, TOTALon 46-32-0202Jjasdymrvrka [Mass/Vol]404 ng/dL Xodzru869-083Pfc [facility] HospitalComment on above:Result Comment: Adult male reference interval is based on a population of healthy nonobese males (BMI <30) between 19 and 39 years old. stephania Salinas.al. JCEM 2017,102;0587-0077. PMID: [id number].Performed By: #### TESTTOT #### [facility] [address] [place] [address] Dr. Reuben KramerC AUTO DIFFon 30-69-9381AKPP #0.0 103/ulNormal0.0-0.1The [facility] HospitalComment on above:Performed By: #### TESTTOT #### [facility] [address] [place] [address] Dr. Reuben MorrisonBasophils/100 WBC (Bld)1.0 %Normal0.2-2.0The [facility] Comment on above:Performed By: #### TESTTOT #### [facility] [address] [place] [address] Dr. Alexis ChangEGlenda #0.1 103/ulNormal0.0-0.7The [facility] HospitalComment on above: Performed By: #### TESTTOT #### [facility] [address] [place] [address] Dr. Reuben Allenosinophils/100 WBC (Bld)1.8 %Normal0.9-7.0The [facility] Comment on above:Performed By: #### TESTTOT #### [facility] [address] [place] [address] Dr. Reuben Allenrythrocyte distribution width (RBC) [Ratio]14.0 %Iawmsb26.0-15.0 The [facility] HospitalComment on above:Performed By: #### TESTTOT #### [facility] [address] [place] [address] Dr. Reuben MorrisonHematocrit (Bld) [Volume fraction]47.3 %Jpydth13.0-54.0The [facility] HospitalComment on above:Performed By: #### TESTTOT #### [facility] [address] [place] [address] Dr. Reuben MorrisonHemoglobin (Bld) [Mass/Vol]16.2 g/cNApdwmb27.0-18.0The [facility] HospitalComment on above:Performed By: #### TESTTOT #### [facility] [address] [place] [address] Dr. Reuben Retana #0.01 10e3/ulNormal0.00-0.03The [facility] HospitalComment on above:Performed By: #### TESTTOT #### [facility] [address] [place] [address] Dr. Reuben Retana %0.3 %Normal0.0-0.5The [facility] HospitalComment on above: Performed By: #### TESTTOT #### [facility] [address] [place] [address] Dr. Reuben Amaya #1.1 103/ulCritically low1.2-3.8The [facility] Comment on above:Performed By: #### TESTTOT #### [facility] [address] [place] [address] Dr. Reuben Jean Baptistemphocytes/100 WBC (Bld)26.6 %Jqgxdz69.5-60.0The [facility] HospitalComment on above:Performed By: #### TESTTOT #### [facility] [address] [place] [address] Dr. Reuben Santizo DIFF REQNONormalThe [facility] HospitalComment on above: Performed By: #### TESTTOT #### [facility] [address] [place] [address] Dr. Reuben Motta (RBC) [Entitic mass]29.5 kcNxcmtj95.9-34.0The [facility] HospitalComment on above:Performed By: #### TESTTOT #### [facility] [address] [place] [address] Dr. Reuben Motta (RBC) [Mass/Vol]34.2 g/uHXfjkbp49.9-35.2The [facility] HospitalComment on above:Performed By: #### TESTTOT #### [facility] [address] [place] [address] Dr. Reuben Skelton (RBC) [Entitic vol]86.2 cCAzlkgz01.0-94.0The [facility] HospitalComment on above:Performed By: #### TESTTOT #### [facility] [address] [place] [address] Dr. Reuben Astudillo #0.4 103/ulNormal0.3-0.8The [facility] HospitalComment on above:Performed By: #### TESTTOT #### [facility] [address] [place] [address] Dr. Reuben Blevinsocytes/100 WBC (Bld)9.0 %Normal1.7-12.0The [facility] Comment on above:Performed By: #### TESTTOT #### [facility] [address] [place] [address] Dr. Reuben Meredith #2.5 103/ulNormal1.4-6.5The [facility] HospitalComment on above:Performed By: #### TESTTOT #### [facility] [address] [place] [address] Dr. Yilan ChangNeutrophils/100 WBC (Bld)61.3 %Tauxjq47.0-75.0The [facility] HospitalComment on above:Performed By: #### TESTTOT #### [facility] [address] [place] [address] Dr. Reuben Sorianolet mean volume (Bld) [Entitic vol]9.6 fLNormal9.5-13.5The [facility] HospitalComment on above:Performed By: #### TESTTOT #### [facility] [address] [place] [address] Dr. Reuben MorrisonPLT128 103/ulCritically cve735-003Iyt [facility] HospitalComment on above:Performed By: #### TESTTOT #### [facility] [address] [place] [address] Dr. Reuben MorrisonRBC5.49 106/ulNormal4.70-6.10The [facility] HospitalComment on above:Performed By: #### TESTTOT #### [facility] [address] [place] [address] Dr. Reuben MorrisonWBC4.0 103/ulNormal4.0-11.0The [facility] HospitalComment on above: Performed By: #### TESTTOT #### [facility] [address] [place] [address] Dr. Reuben MorrisonINSULINon 73-41-9092Aevepkb7.3 uIU/mLNormal2.6-24.9The [facility] HospitalComment on above:Performed By: #### TESTTOT #### [facility] [address] [place] [address] Dr. Reuben MorrisonTESTOSTERONE, TOTALon 46-86-1213Avkiugeebggr [Mass/Vol]ng/dL Critically fpmn616-535Qws [facility] HospitalComment on above:Result Comment: Adult male reference interval is based on a population of healthy nonobese males (BMI <30) between 19 and 39 years old. stephania Salinas.al. JCEM 2017,102;2484-7159. PMID: [id number].Performed By: #### TESTTOT #### [facility] [address] [address] [address] Reuben Prajapati AUTO DIFFon 81-95-2062TOBI #0.1 103/ulNormal0.0-0.1The [facility] HospitalComment on above:Performed By: #### CBC #### [facility] [address] [place] [address] Dr. Reuben MorrisonBasophils/100 WBC (Bld)1.4 %Normal0.2-2.0The [facility] Comment on above:Performed By: #### CBC #### [facility] [address] [place] [address] Dr. Reuben Turner #0.1 103/ulNormal0.0-0.7The [facility] HospitalComment on above: Performed By: #### CBC #### [facility] [address] [place] [address] Dr. Reuben Allenosinophils/100 WBC (Bld)1.4 %Normal0.9-7.0The [facility] Comment on above:Performed By: #### CBC #### [facility] [address] [place] [address] Dr. Reuben Allenrythrocyte distribution width (RBC) [Ratio]14.7 %Vmwuji58.0-15.0 The [facility] HospitalComment on above:Performed By: #### CBC #### [facility] [address] [place] [address] Dr. Reuben MorrisonHematocrit (Bld) [Volume fraction]49.8 %Xqpnxo17.0-54.0The [facility] HospitalComment on above:Performed By: #### CBC #### [facility] [address] [place] [address] Dr. Reuben MorrisonHemoglobin (Bld) [Mass/Vol]16.4 g/oAQwfnnp95.0-18.0The [facility] HospitalComment on above:Performed By: #### CBC #### [facility] [address] [place] [address] Dr. Reuben Retana #0.01 10e3/ulNormal0.00-0.03The [facility] HospitalComment on above:Performed By: #### CBC #### [facility] [address] [address] [address] Reuben Retana %0.3 %Normal0.0-0.5The [facility] HospitalComment on above: Performed By: #### CBC #### [facility] [address] [address] [address] Reuben Amaya #0.9 103/ulCritically low1.2-3.8The [facility] Comment on above:Performed By: #### CBC #### [facility] [address] [place] [address] Dr. Reuben Dillardhocytes/100 WBC (Bld)24.7 %Tjhlhi10.5-60.0The [facility] HospitalComment on above:Performed By: #### CBC #### [facility] [address] [place] [address] Dr. Reuben Santizo DIFF REQNONormalThe [facility] HospitalComment on above: Performed By: #### CBC #### [facility] [address] [address] [address] Reuben Bhardwaj (RBC) [Entitic mass]28.9 wbVjzonm90.9-34.0The [facility] HospitalComment on above:Performed By: #### CBC #### [facility] [address] [address] [address] Reuben Motta (RBC) [Mass/Vol]32.9 g/xCVnwuja54.9-35.2The [facility] HospitalComment on above:Performed By: #### CBC #### [facility] [address] [place] [address] Dr. Reuben Motta (RBC) [Entitic vol]87.7 gAAtoodf12.0-94.0The [facility] HospitalComment on above:Performed By: #### CBC #### [facility] [address] [place] [address] Dr. Reuben Astudillo #0.4 103/ulNormal0.3-0.8The [facility] HospitalComment on above:Performed By: #### CBC #### [facility] [address] [place] [address] Dr. Reuben Blevinsocytes/100 WBC (Bld)9.5 %Normal1.7-12.0[facility] Comment on above:Performed By: #### CBC #### [facility] [address] [place] [address] Dr. Reuben LanzaUT #2.3 103/ulNormal1.4-6.5The [facility] HospitalComment on above:Performed By: #### CBC #### [facility] [address] [place] [address] Dr. Reuben Lanzautrophils/100 WBC (Bld)62.7 %Zbmeoc08.0-75.0The [facility] HospitalComment on above:Performed By: #### CBC #### [facility] [address] [place] [address] Dr. Reuben Sorianolet mean volume (Bld) [Entitic vol]9.8 fLNormal9.5-13.5The [facility] HospitalComment on above:Performed By: #### CBC #### [facility] [address] [place] [address] Dr. Reuben ClarkT149 103/ulCritically mkl146-925Lcj [facility] HospitalComment on above:Performed By: #### CBC #### [facility] [address] [place] [address] Dr. Reuben MorrisonRBC5.68 106/ulNormal4.70-6.10The [facility] HospitalComment on above:Performed By: #### CBC #### [facility] [address] [place] [address] Dr. Reuben MorrisonWBC3.7 103/ulCritically low4.0-11.0The [facility] HospitalComment on above:Performed By: #### CBC #### [facility] [address] [place] [address] Dr. Reuben Arce THYROXINE INDEX T7on 91-24-1460QPX8.94Teumyl4.30-4.50The [facility] Soin Medical Centerment on above:Performed By: #### CMP, T7, TSH, LIPID #### [facility] [address] [place] [address] Dr. Reuben MorrisonT3U39.0 %Vgcwqc92.0-40.0The [facility] HospitalComment on above: Performed By: #### CMP, T7, TSH, LIPID #### [facility] [address] [place] [address] Dr. Reuben MorrisonT4 [Mass/Vol]6.40 ug/dLNormal4.50-12.10The [facility] Comment on above:Performed By: #### CMP, T7, TSH, LIPID #### [facility] [address] [place] [address] Dr. Reuben MorrisonGLYCOHEMOGLOBIN A1Con 16-13-0175SXS RECOMMENDATIONSEE BELOWNormal The [facility]itan HospitalComment on above:Result Comment: ADA RECOMMENDED LIMIT 4.0 - 6.0 ADA THERAPEUTIC TARGET < 7.0 ACTION SUGGESTED > 7.0Performed By: #### TESTTOT #### [facility] [address] [place] [address] Dr. Reuben MorrisonGlucose [Mass/Vol]105 mg/dLNormalThe [facility] HospitalComment on above:Performed By: #### TESTTOT #### [facility] [address] [place] [address] Dr. Reuben MorrisonHbA1c (Bld) [Mass fraction]5.3 %Normal4.5-6.2The [facility] HospitalComment on above:Performed By: #### TESTTOT #### [facility] [address] [place] [address] Dr. Reuben Boateng 47-91-2881Wogj [Mass/Vol]100.0 ug/lJJfpgum75.0-175.0The [facility] HospitalComment on above:Performed By: #### IRON, PSASC, VITB12, VITAD #### [facility] [address] [place] [address] Dr. Reuben MorrisonLIPID PROFILEon 17-46-9338AUGL-HDL RATIO NORMSSheltering Arms HospitalComment on above:Result Comment: 3.3 - 4.4 LOW RISK 4.4 - 7.1 AVERAGE RISK 7.1 - 11.0 MODERATE RISK >11.0 HIGH RISKPerformed By: #### CMP, T7, TSH, LIPID #### [facility] [address] [place] [address] Dr. Reuben MorrisonCholesterol [Mass/Vol]157 mg/dLNormal<=200[facility] Comment on above:Performed By: #### CMP, T7, TSH, LIPID #### [facility] [address] [place] [address] Dr. Reuben MorrisonCholesterol in HDL [Mass/Vol]48 mg/fWSevfjo42-32LkpUniversity Hospitals Samaritan Medical CenterComment on above:Performed By: #### CMP, T7, TSH, LIPID #### [facility] [address] [place] [address] Dr. Reuben Sandovalesterol in LDL [Mass/Vol]96.0 mg/dLNoParkview Health Montpelier HospitalComment on above:Performed By: #### CMP, T7, TSH, LIPID #### [facility] [address] [place] [address] Dr. Reuben Brito.total/Cholesterol in HDL [Mass ratio]3.3 {ratio} NormalUniversity Hospitals Samaritan Medical CenterComment on above:Performed By: #### CMP, T7, TSH, LIPID #### [facility] [address] [place] [address] Dr. Reuben Robertson NORMAL> or = 60 mg/dl - LOW CARDIOVASCULAR RISK <40 mg/dl - HIGH CARDIOVASCULAR RISKSelect Medical OhioHealth Rehabilitation HospitalComment on above:Performed By: #### CMP, T7, TSH, LIPID #### [facility] [address] [place] [address] Dr. Reuben Novoa CALC NORMALSEE St. [facility] HospitalComment on above:Result Comment: <100 mg/dl OPTIMAL 100 - 129 mg/dl NEAR OR ABOVE OPTIMAL 130 - 159 mg/dl BORDERLINE HIGH 160 - 189 mg/dl HIGH >190 mg/dl VERY HIGH Performed By: #### CMP, T7, TSH, LIPID #### [facility] [address] [address] [address] Reuben MorrisonTriglyceride [Mass/Vol]65 mg/dLNormal<=150The [facility] Comment on above:Performed By: #### CMP, T7, TSH, LIPID #### [facility] [address] [address] [address] Reuben MorrisonVLDL CALC13.0 mg/dLNormalThe [facility]itan HospitalComment on above: Performed By: #### CMP, T7, TSH, LIPID #### [facility] [address] [address] [address] Reuben Millan 14(COMP METB)on 47-21-3784Ocuwrcn [Mass/Vol]3.7 g/dLNormal 3.4-5.0[facility] Medical CenterComment on above:Performed By: #### CMP, T7, TSH, LIPID #### [facility] [address] [place] [address] Dr. Reuben MorrisonAlbumin/Globulin [Mass ratio]1.3 {ratio}NormalThe [facility]itan HospitalComment on above:Performed By: #### CMP, T7, TSH, LIPID #### [facility] [address] [place] [address] Dr. Reuben Keith [Catalytic activity/Vol]53 U/PVfnafg08-046Ake [facility] HospitalComment on above:Performed By: #### CMP, T7, TSH, LIPID #### [facility] [address] [address] [address] Reuben Goode [Catalytic activity/Vol]37 U/RVlcjsh56-65Srk [facility] HospitalComment on above:Performed By: #### CMP, T7, TSH, LIPID #### [facility] [address] [address] [address] Reuben Woods gap [Moles/Vol]11.0 mmol/LNormalThe [facility] Comment on above:Performed By: #### CMP, T7, TSH, LIPID #### [facility] [address] [address] [address] Reuben MorrisonAST [Catalytic activity/Vol]28 U/SMuzohx68-58Lth [facility] HospitalComment on above:Performed By: #### CMP, T7, TSH, LIPID #### [facility] [address] [address] [address] Reuben MorrisonBilirubin [Mass/Vol]0.9 mg/dLNormal0.2-1.0The [facility] Comment on above:Performed By: #### CMP, T7, TSH, LIPID #### [facility] [address] [address] [address] Reuben MorrisonCalcium [Mass/Vol]8.9 mg/dLNormal8.5-10.1The [facility] Comment on above:Performed By: #### CMP, T7, TSH, LIPID #### [facility] [address] [place] [address] Dr. Reuben MorrisonChloride [Moles/Vol]106 mmol/KQxtwts07-906Tcz [facility] Comment on above:Performed By: #### CMP, T7, TSH, LIPID #### [facility] [address] [place] [address] Dr. Reuben MorrisonCO2 [Moles/Vol]28.2 mmol/UAezord08.0-32.0[facility] Comment on above:Performed By: #### CMP, T7, TSH, LIPID #### [facility] [address] [address] [address] Reuben MorrisonCreatinine [Mass/Vol]1.55 mg/dLCritically high0.70-1.30[facility] HospitalComment on above:Performed By: #### CMP, T7, TSH, LIPID #### [facility] [address] [place] [address] Dr. Reuben AllenGFR-AF IOARLMMQ98 mL/min/1.73b7Fujyhbpfpw low>=60[facility] HospitalComment on above:Performed By: #### CMP, T7, TSH, LIPID #### [facility] [address] [address] [address] Reuben AllenGFR-NON AF YPMPITRS69 mL/min/1.81u8Pcdssogfnw low>=60[facility] HospitalComment on above:Performed By: #### CMP, T7, TSH, LIPID #### [facility] [address] [address] [address] Reuben MorrisonGlobulin (S) [Mass/Vol]2.9 g/dLNormBarney Children's Medical CenterComment on above:Performed By: #### CMP, T7, TSH, LIPID #### [facility] [address] [address] [address] Reuben MorrisonGlucose [Mass/Vol]88 mg/mHJcaqtm77-060SchUniversity Hospitals [facility] Comment on above:Performed By: #### CMP, T7, TSH, LIPID #### [facility] [address] [place] [address] Dr. Reuben MorrisonPotassium [Moles/Vol]4.2 mmol/LNormal3.5-5.1[facility] Comment on above:Performed By: #### CMP, T7, TSH, LIPID #### [facility] [address] [place] [address] Dr. Reuben MorrisonProtein [Mass/Vol]6.6 g/dLNormal6.4-8.2[facility] Comment on above:Performed By: #### CMP, T7, TSH, LIPID #### [facility] [address] [address] [address] Reuben MorrisonSodium [Moles/Vol]141 mmol/IUsslgx828-477Vzv [facility] Comment on above:Performed By: #### CMP, T7, TSH, LIPID #### [facility] [address] [place] [address] Dr. Reuben MorrisonUrea nitrogen [Mass/Vol]13.0 mg/dLNormal7.0-18.0The [facility] HospitalComment on above:Performed By: #### CMP, T7, TSH, LIPID #### [facility] [address] [address] [address] Reuben MorrisonUrea nitrogen/Creatinine [Mass ratio]8.4 mg/mgNoParkview Health Montpelier HospitalComment on above:Performed By: #### CMP, T7, TSH, LIPID #### [facility] [address] [place] [address] Dr. Reuben Galeas 32-02-0929RBE4.091 uIU/mLCritically low0.358-3.740[facility] Medical CenterComment on above:Performed By: #### CMP, T7, TSH, LIPID #### [facility] [address] [place] [address] Dr. Reuben Jernigan RANGESSheltering Arms HospitalComment on above: Result Comment: <0.34 UIU/ml HYPERTHYROID 0.34-5.60 UIU/ml EUTHYROID >5.60 UIU/ml HYPOTHYROIDPerformed By: #### CMP, T7, TSH, LIPID #### [facility] [address] [place] [address] Dr. Reuben MorrisonVITAMIN B12on 59-89-6066Wnechxgon (Vitamin B12) [Mass/Vol]3126.0 pg/mLCritically dcld279.0-986.0[facility] Medical CenterComment on above:Performed By: #### TESTTOT #### [facility] [address] [place] [address] Dr. Reuben MorrisonVITAMIN D 25 OHon 78-82-6627GCG D 25-OH90.4 ng/mLNormalUniversity Hospitals Samaritan Medical CenterComhealthsource [place] on above:Performed By: #### TESTTOT #### [facility] [address] [place] [address] Dr. Reuben Quinones D RANGESSEE [facility] HospitalComment on above: Result Comment: <20 ng/mL Vit D deficient 20 - <30 ng/mL Vit D insufficient 30 - 100 ng/mL Vit D sufficient >100 ng/mL Potential ToxicityPerformed By: #### TESTTOT #### [facility] [address] [place] [address] Dr. Reuben MorrisonXR SHOULDER RICHARD 2V or >on 24-47-4860GP SHOULDER RICHARD 2V or >EXAM: XR SHOULDER [...] Electronically authenticated by: ERIN HANSEN Date: 2022-03-07 16:26[facility] Vital Signs Date TimeVital SignValuePerforming ZsxpbuqqyNberxgqa92-37-6605 12:06-0400Body uirled751.91 cmIlda Peck MD Work Phone: [phone]10-29-2025 12:06-0400 Body mass index (BMI) [Ratio]28.6 kg/b8ZkciylrIlda Peck MD Work Phone: [phone] [place], [place] 1883010-29-2025 12:06-0400 Body .64 kgIlda Peck MD Work Phone: [phone] [place], [place] 1883010-29-2025 12:06-0400 Diastolic blood zuraefjy36 mm[Hg]Ilda Peck MD Work Phone: [phone] [place], [place] 1883010-29-2025 12:06-0400 Systolic blood oaoepslp484 mm[Hg]Ilda Peck MD Work Phone: [phone]10-20-2025 16:35-0400 Body ugwsss844.91 cmIlda Peck MD Work Phone: [phone]10-20-2025 16:35-0400 Body mass index (BMI) [Ratio]28.6 kg/c2UcprbhwIlda Peck MD Work Phone: [phone]10-20-2025 16:35-0400 Body wkzrib71.64 kgIlda Peck MD Work Phone: [phone]10-20-2025 16:35-0400 Diastolic blood lixmghnn98 mm[Hg]Ilda Peck MD Work Phone: [facility]10-20-2025 16:35-0400 Heart rate69 /minDoucari Peck MD Work Phone: [facility]10-20-2025 16:35-0400 SaO2% (BldA) [Mass fraction]96 %Ilda Peck MD Work Phone: [facility]10-20-2025 16:35-0400 Systolic blood dliqmyvz925 mm[Hg]Ilda Peck MD Work Phone: [phone]09-17-2025 10:43-0400 Body xytidu705.9 cmAsierra Dawson MD Work Phone: [phone] [place], [place] [address]Rhhygtzqin01-04-9911 10:43-0400Body mass index (BMI) [Ratio]29.73 kg/f4NizxoRomán Dawson MD Work Phone: [phone] [place], [place] [address]Clcmfxcvvz44-88-6022 10:43-0400Body vgbomy19.82 kgRomán Dawson MD Work Phone: [phone] [place], [place] [address]Cpawetwjxs93-16-0974 10:43-0400Diastolic blood xgxgcsif67 mm[Hg]Román Dawson MD Work Phone: [phone] [place], [place] [address]Avzuxytevg54-77-3409 10:43-0400Heart rate49 /min Román Dawson MD Work Phone: [phone] [place], [place] [address]Zuennzxidw75-89-6479 10:43-0400Respiratory rate16 /minRomán Dawson MD Work Phone: [phone] [place], [place] [address]Jysckkelfh47-50-9761 10:43-9907MyJ3% (BldA) [Mass fraction]98 %Román Dawson MD Work Phone: [phone] [place], [place] [address]Eajgogkdwq07-73-2565 10:43-0400Systolic blood stiyzpob986 mm[Hg]Román Dawson MD Work Phone: [phone] [place], [place] [address]Nriykyrhvu77-72-1547 11:21-0400Body wduiff450.91 cmIlda Peck MD Work Phone: [facility]08-19-2025 11:21-0400 Body mass index (BMI) [Ratio]29 kg/f3XoscwtxIlda Peck MD Work Phone: [facility]08-19-2025 11:21-0400 Body znmlip75 kgDosalome Peck MD Work Phone: [facility]08-19-2025 11:21-0400 Diastolic blood widzeqqz06 mm[Hg]Ilda Peck MD Work Phone: [facility]08-19-2025 11:21-0400 Systolic blood mmzyijen601 mm[Hg]Ilda Peck MD Work Phone: [facility]05-27-2025 10:20-0400 Body .2 Karlene Anthony MD Work Phone: [facility]05-27-2025 10:20-0400Body mass index (BMI) [Ratio]29.19 kg/y7PhfmzzqtiblOsmin Anthony MD Work Phone: [facility]05-27-2025 10:20-0400Body yuqnln60.54 kgOsmin Anthony MD Work Phone: [facility]01-27-2025 10:46-0500Body eqygougcqkq34.52 [degF]Vianey SILVERMAN [facility]01-27-2025 10:46-0500Diastolic blood uxwswpyq71 mm[Hg]Vianey SILVERMAN [facility]01-27-2025 10:46-0500Systolic blood edclqnfe680 mm[Hg]Vianey SILVERMAN [facility]01-14-2025 14:40-0500Body .2 Karlene Anthony MD Work Phone: [facility]01-14-2025 14:40-0500Body mass index (BMI) [Ratio]29.13 kg/c1YvorurpfkntOsmin Anthony MD Work Phone: [facility]01-14-2025 14:40-0500Body .37 kgChsaulo Anthony MD Work Phone: [facility]11-19-2024 13:46-0500Blood Pressure LocationMichael NILL [phone]-AnlkyC[facility]11-19-2024 13:46-0500Diastolic blood ugtznurx48 mm[Hg]Shawanda NILL [phone]-YqrznC[facility] Clinic [facility]11-19-2024 13:46-0500Heart rate72 /minMichael NILL [phone]-MarmfC[facility] Clinic [facility]11-19-2024 13:46-0500Respiratory rate16 /minMichael NILL [phone]-QzutnC[facility]11-19-2024 13:46-0500Systolic blood zsxolxdd918 mm[Hg]Shawanda NILL [phone]-ZpwrtCleveland Clinic [facility]10-23-2024 14:59-0400Body ovpgsh645.9 cmNicole Russel DO Work Phone: [facility] ArtResearch [facility]iatric CenterIvwnkgcsja38-87-7712 14:59-0400Body mass index (BMI) [Ratio]30.02 kg/g4Gkijwm Russel DO Work Phone: noResearch Psychiatric CenterRdvgghjkoy32-73-7165 14:59-0400Body .64 kgNicole Russel DO Work Phone: noResearch Psychiatric CenterNvrflxxhhh99-38-1650 14:59-0400Diastolic blood mm[Hg]Sage Russel DO Work Phone: [facility] CenterSxkqxaqfhq97-14-9332 14:59-0400Heart rate68 /min Sage Goode DO Work Phone: [facility]es[facility] Psychiatric CenterVppfxmhssp08-27-5364 14:59-0996ZoF5% (BldA) [Mass fraction]98 %Sage Goode DO Work Phone: NORes[facility] Psych[facility] CenterJixkkcmxya39-09-0297 14:59-0400Systolic blood vfimmiri560 mm[Hg]Sage Goode DO Work Phone: [facility] CenterEljcmhwurd66-21-9368 11:04-0400Body daqvvj168.9 Don Dawson MD Work Phone: [facility] CenterVmvblwuuwr06-43-4615 11:04-0400Body mass index (BMI) [Ratio]29.89 kg/e0DkxdpRomán Dawson MD Work Phone: [facility] CenterKkvohslcfm61-93-8681 11:04-0400Body szrtyg83.28 kgRomán Dawson MD Work Phone: [facility] CenterMjyryfklsn79-14-3452 11:04-0400Diastolic blood kinvypfc74 mm[Hg]Román Dawson MD Work Phone: [facility] CenterQxwkfeykkg68-82-1168 11:04-0400Heart rate68 /min Román Dawson MD Work Phone: [facility] CenterKgxdijtkhl05-13-2237 11:04-0400Respiratory rate16 /minRomán Dawson MD Work Phone: [address] [place], [place] [address]Zriaqphboi51-40-7246 11:04-0400Systolic blood rutncaol757 mm[Hg]Román Dawson MD Work Phone: [address] [place], [place] [address]Aypimggret57-21-4087 11:20-0400Body ufbsba052.2 Karlene Anthony MD Work Phone: [facility]09-17-2024 11:20-0400Body mass index (BMI) [Ratio]28.7 kg/e4TgpmptlikulOsmin Anthony MD Work Phone: [facility]09-17-2024 11:20-0400Body kymfpq87.12 kgChsaulo Anthony MD Work Phone: [facility]09-12-2024 13:55-0400Body yrkutj907.91 cmMD Ilda Chesterluz maria Work Phone: [phone]09-12-2024 13:55-0400 Body mass index (BMI) [Ratio]29.4 kg/m2MD Ilda Chesterluz maria Work Phone: [phone]09-12-2024 13:55-0400 Body eiqdyksbdxi25.8 [degF]MD Ilda Peck Work Phone: [phone]09-12-2024 13:55-0400 Body .97 kgMD Ilda Peck Work Phone: [phone]09-12-2024 13:55-0400 Diastolic blood ktrjomcq53 mm[Hg]MD Ilda Peck Work Phone: [phone]09-12-2024 13:55-0400 Heart rate61 /minMD Ilda Peck Work Phone: [phone])[address]09-12-2024 13:55-0400 Respiratory rate16 /minMD Ilda Peck Work Phone: [phone])[address]09-12-2024 13:55-0400 SaO2% (BldA) [Mass fraction]98 %MD Ilda Peck Work Phone: [phone])314-[address] [place], [place] [address]009-12-2024 13:55-0400 Systolic blood miurxbhz480 mm[Hg]MD Ilda Peck Work Phone: [phone]08-13-2024 15:01-0400 Blood Pressure LocationMichaelena MEJIA [phone]-UclwbC[facility]08-13-2024 15:01-0400Diastolic blood iwxseump85 mm[Hg]Shawanda NILL [phone]-HsrgyC[facility] Clinic [facility]08-13-2024 15:01-0400Heart rate68 /minMichael NILL [phone]-XrszuC[facility] Clinic [facility]08-13-2024 15:01-0400Respiratory rate16 /minMichael NILL [phone]-LaaieCleveland Clinic [facility]inte [facility]08-13-2024 15:01-0400Systolic blood ilroiwpd466 mm[Hg]Shawanda MEJIA [phone]-ZygjfCleveland Clinic [facility]inte [facility]02-08-2024 10:48-0500Body eonlxi463.2 Karlene Anthony MD Work Phone: [facility]02-08-2024 10:48-0500Body mass index (BMI) [Ratio]29.29 kg/x3TrsgixubuviOsmin Anthony MD Work Phone: [facility]02-08-2024 10:48-0500Body tcyjjz48.82 kgChsaulo Anthony MD Work Phone: [facility]01-22-2024 13:03-0500Blood Pressure LocationPatricaric SILVERMAN [facility]01-22-2024 13:03-0500Diastolic blood crbmbzne98 mm[Hg]Vianey SILVERMAN [facility]01-22-2024 13:03-0500Heart rate75 /minPatrick HERRERA [facility]01-22-2024 13:03-0500Respiratory rate16 /minPatrick SILVERMAN [facility]01-22-2024 13:03-0500Systolic blood ncukcsox312 mm[Hg]Vianey SILVERMAN [facility]11-02-2023 10:00-0400Body ynzkaj943.91 cmAbdul Antonia Other noCardKill Other 11-02-2023 10:00-0400Body mass index (BMI) [Ratio] 28.55 kg/t5Ofaya Antonia Other noCardKill Other 11-02-2023 10:00-0400Body kknlbtneqju64.2 [degF]Sandoval Antonia Other [employer] Other 11-02-2023 10:00-0400Body lfyluu31.47 kgAbdul Antonia Other [employer] Other 11-02-2023 10:00-0400Diastolic blood mm[Hg] Sandoval Antonia Other [employer] Other 11-02-2023 10:00-0400Respiratory rate16 /minAbdul Antonia Other [employer] Other 11-02-2023 10:00-7583HtG9% (BldA) [Mass fraction]94 % Sandoval Antonia Other [employer] Other 11-02-2023 10:00-0400Systolic blood lfjdgxqo496 mm[Hg] Sandoval Antonia Other [employer] Other 09-18-2023 12:25-0400Blood Pressure LocationPaaida SILVERMAN [facility]09-18-2023 12:25-0400Diastolic blood mm[Hg]Vianey SILVERMAN [facility]09-18-2023 12:25-0400Heart rate68 /minPatrick HERRERA [facility]09-18-2023 12:25-0400Respiratory rate16 /minPatrick HERRERA [facility]09-18-2023 12:25-0400Systolic blood ztrqyauh760 mm[Hg]Vianey SILVERMAN [facility]08-02-2023 11:15-0400Body akqgpe680.4 cmShawanda Hernandez PA-C Work Phone: [phone] HealthcareYzaetu69-55-2433 11:15-0400Body temperature 98.01 [degF]Shawanda Hernandez PA-C Work Phone: [phone] HealthcareMigoip57-76-9849 11:15-0400Body .95 kgShawanda Hernandez PA-C Work Phone: [phone] HealthcareLukmio07-92-1466 11:15-0400Diastolic blood rsxfyqiy58 mm[Hg]Shawanda Hernandez PA-C Work Phone: [phone] HealthcareCvlbfy27-15-5602 11:15-0400Heart rate74 /min Shawanda Hernandez PA-C Work Phone: [phone] [address]-02-2023 11:15-6414MgQ4% (BldA) [Mass fraction]97 %Shawanda Hernandez PA-C Work Phone: [phone] [address]-02-2023 11:15-0400Systolic blood fudnpcff311 mm[Hg]Shawanda Hernandez PA-C Work Phone: cKindred HealthcareSfkxgg58-37-1176 08:12-0500Blood Pressure LocationPatrick HERRERA [facility]03-10-2023 08:12-0500Diastolic blood zpojyhzy58 mm[Hg]Vianey SILVERMAN [facility]03-10-2023 08:12-0500Heart rate70 /minPatrick SILVERMAN [facility]03-10-2023 08:12-0500Respiratory rate16 /minPatrick SILVERMAN [facility]03-10-2023 08:12-0500Systolic blood zrdksmve662 mm[Hg]Vianey SILVERMAN [facility]10-26-2022 14:11-0400Body mass index (BMI) [Ratio]28.98 kg/m2Jovita Virk MD Work Phone: [phone]hVpwzvl03-74-9934 14:11-0400Body ltckxxnxynd56.01 [degF]Jovita Virk MD Work Phone: [phone]dUffkks23-12-5214 14:11-0400Body pydrqc58.92 kg Jovita Virk MD Work Phone: NlimdOhjpwn69-228722GciclVfofnc03-66-5525 14:11-0400Diastolic blood azgzdnij38 mm[Hg]Jovita Virk MD Work Phone: NkmgfHxahec23-416361QkmcyNwhlae43-92-1255 14:11-0400Heart rate98 /minJovita Virk MD Work Phone: [phone]cYlyvmv50-67-3990 14:11-0400Respiratory rate14 /Jaye Virk MD Work Phone: [phone]tWvooue78-35-4053 14:11-8351QsM3% (BldA) [Mass fraction]100 %Jovita Virk MD Work Phone: [phone]08978VfekwZwnuas42-96-1545 14:Systolic blood zkqvvfah481 mm[Hg]Jovita Virk MD Work Phone: [facility] Encounters Encounter DateEncounter TypeCare ProviderFacilityStart: 25-94-0953gzgoqritwa Vianey Crawford WATERSFacility:EU [place]vueStart: 07-25-2025 End: 97-77-7982dorngmjselHtzsyzf M Hoy MD Work Phone: [phone]-Zddiaofdm Health OrthopedicsStart: 07-25-2025 End: 85-33-6225Zygunaw encounter procedureScot Pompa MD-[facility] Work Phone: Start: 07-23-2025 End: 46-72-3816Ukokoco encounter procedureRobmartínez Pompa MD-[facility] Work Phone: Start: 75-68-0288Wozzyvypnp RecurringScot Pompa MD-Physical Therapy [place] CreekStart: 07-23-2025 End: 51-04-3354ycaakgmsxkUulwcg M [place] IIFacility:[facility] Hospitaltart: 79-98-8425Htftiujtn for other preprocedural examinationScot Liang [facility] Physician GroupStart: 07-23-2025 End: 12-55-6841Qdzypqy encounter procedureScot Pompa MD-Pre-Surgical Testing Work Phone: Start: 07-23-2025 End: 60-11-0442ldfrcokumuVfbdzo M [place] IIFacility:[facility] Hospitaltart: 07-14-2025 End: 90-03-3256ntpllkxnaoUwhvlay M Hoy MD Work Phone: -[facility] BellevueStart: 07-14-2025 End: 22-78-7337Jnbgudp encounter procedureSage Goode DO-[facility] [place] Work Phone: Start: 06-11-2025 End: 68-89-6393Hcxhsmromi Dawson MD Work Phone: noms Ra EndocrinologyStart: 06-11-2025 End: 87-48-4797Dzfpihromi Dawson MD Work Phone: NOOV Ra EndocrinologyStart: 06-11-2025 End: 66-66-0704Irmwzowlp encounterChsaulo Anthony MD Work Phone: [facility] Orthopedic SurgeryStart: 06-11-2025 End: 14-78-8968dwawjgyijfLWLOD F SABBAGHNot AvailableStart: 06-11-2025 End: 71-11-0703Kxftwf outpatient visit 25 minutesRomán Dawson MD Work Phone: noms Ra EndocrinologyComment on above: Sarah's disease (Primary Dx)Start: 05-24-2025 End: 37-25-8918Vtkafm encounterJovita Virk MD Work Phone: [facility]Start: 05-13-2025 End: 53-16-2057Vmgoslv encounter procedureRobert Foster Pompa MD-[facility] Orthopedics [place] Work Phone: Start: 05-13-2025 End: 17-63-3951lrjqswgmyvIfmsage M Hoy MD Work Phone: [facility] Work Phone: Start: 02-18-2025 End: 59-61-0411xskmjtfokmZIQMIVHEBCO A FOETISCHProMedica University Hospitals Samaritan Medical Centertart: 02-18-2025 End: 20-52-2085Hfoksy outpatient visit 25 minutesOsmin Anthony MD Work Phone: [facility] Orthopedic SurgeryComment on above:Primary osteoarthritis of right knee (Primary Dx)Start: 01-21-2025 End: 07-77-5282ozehguyfepUNXR [facility] Northtart: 10-21-2024 End: 83-50-5861zdrkieqlieZojzfgv R WATERSFacility:EU [place]vueStart: 10-21-2024 End: 24-32-5729Mmsabpr encounter procedureVianey SILVERMAN [facility] start: 10-08-2024 End: 69-04-8564werdlpntfuVXWVFMVSVYM A FOETISCHProMedica [facility] HospitalStart: 10-08-2024 End: 45-17-5376Zzhtros encounter procedureChristopher Dawn Anthony MD Work Phone: [facility] Orthopedic SurgeryComment on above:Primary osteoarthritis of right knee (Primary Dx)Start: 08-13-2024 End: 40-34-6497pexyrhqswpXrhpmzl R NILLFacility:GS ueStart: 08-13-2024 End: 12-88-0946Kdrqcrb encounter procedureMichael R NILL [phone]-Hlhbd General Surgery [place] Start: 07-17-2024 End: 94-63-4511yeylqrgkefLDYLCN DANNERNot AvailableStart: 07-17-2024 End: 22-40-0054Qtdpfb outpatient visit 25 minutesNicole Russel DO Work Phone: noms [facility] STATE ROUTEComment on above:NANCY (obstructive sleep apnea) (Primary Dx); Hypersomnia; Snoring; Atrial fibrillation, unspecified type (CMS/HCC); Sleep deprivationStart: 07-17-2024 End: 96-18-6646Ukrfgw flowsheetNicole Russel DO Work Phone: NOMS [facility] [place] R[address]TEStart: 07-17-2024 End: 03-73-2367Opuauo flowsheetNicole Russel DO Work Phone: noMS [address] ROUTEStart: 07-16-2024 End: 77-86-1459jyeeubwsexDNPJ [facility] Centertart: 06-12-2024 End: 08-14-2350Ccoiei flowsDerick Dawson MD Work Phone: noms ENDOCRINOLOGYStart: 06-12-2024 End: 08-48-4733Rcimjz Shahrzad Dawson MD Work Phone: noms ENDOCRINOLOGYStart: 06-12-2024 End: 92-97-4497Ntwrfz outpatient visit 25 minutesRomán Dawson MD Work Phone: noms ENDOCRINOLOGYComment on above:Sarah's disease (CMS/HCC) (Primary Dx)Start: 06-11-2024 End: 51-06-2005hakhaqvjscKAXZDDONNGA Dawn ANTHONYProMedica University Hospitals Samaritan Medical Centertart: 06-11-2024 End: 71-16-0886Ufvliic encounter procedureChrisdennis Anthony MD Work Phone: [facility] Physicians Orthopedic SurgeryComment on above:Primary osteoarthritis of right knee (Primary Dx)Start: 06-06-2024 End: 82-86-9775ayjjugzpsnMC Ilda Peck Work Phone: [facility] Work Phone: Start: 06-06-2024 End: 28-95-6442Lbbrbzh encounter procedureMD Ilda Hoy Work Phone: [phone] [place] [address] Physician Group-[facility] Nephrology [place] Work Phone: Start: 98-09-0452Hxu-patient / Non-visitMD Ilda Hoy Work Phone: [facility]ician [facility] Work Phone: Start: 05-29-2024 End: 98-17-3490dhvqroetsbLpnykkx R NILLFacility:CD:[id number]: 05-07-2024 End: 24-32-6787gmocaupbfcBjaepgs R NILLFacility:GS BellevueStart: 05-07-2024 End: 91-09-8572Ojoddyc encounter procedureMichael R NILL [phone]-Hnxzv General Surgery [place] Start: 56-58-9786zumznhamgyVznvqex NILLFacility:GS BellevueStart: 04-05-2024 End: 63-99-6376jmrskmxoetHO Ilda Peck Work Phone: [facility] Work Phone: Start: 04-05-2024 End: 54-47-2722Wqgyoioo ReferredMD Ilda Peck Work Phone: [facility]-LAB Path Spec [place] HospStart: 32-75-0719Rkquco encounterMETROHEALTH SYSTEM Work Phone: Start: 15-93-2737rtysudglpbOxxkjyb R WATERSFacility:EU Belltart: 11-02-2023 End: 68-89-7210Vqxkmfd encounter procedureChrisdennis Anthony MD Work Phone: [facility] Orthopedic SurgeryComment on above:Primary osteoarthritis of right knee (Primary Dx)Start: 10-16-2023 End: 78-86-5951Ghsgdce encounter procedureVianey SILVERMAN [facility] start: 07-27-2023 End: 72-48-9335fgwmqgmqipVzwzv Antonia Other [employer] Other Start: 42-18-3875Qwfszf outpatient new 45 minutesAbdul QadirFPG NephrologyStart: 06-12-2023 End: 87-07-3039Wwyspwk encounter procedureVianey SILVERMAN [facility] start: 05-03-2023 End: 53-08-2820Npmdvnm encounter procedureTaylor Joshua [facility] start: 04-26-2023 End: 65-04-2104oteowbexoxAKQQMEE M HOYFacility:[facility] Daytontart: 04-26-2023 End: 52-85-1093Qdwfthr encounter Mo Hernandez PA-C Work Phone: Spine MedicineComment on above:Height loss (Primary Dx)Start: 03-08-2023 End: 19-30-3533Ypbipnu encounter procedureJENNIFER Tania JENNIFER [facility] start: 01-20-2023 End: 80-04-7482kwyxporcbsDJ ILDA PECK .Facility:K4Uibbp: 12-02-2022 End: 45-64-5536Nklrarv encounter procedureVianey SILVERMAN [facility] start: 11-18-2022 End: 61-90-1261kwuhrcvuosLS ILDA PECK .Facility:A9Nqyms: 11-08-2022 End: 76-06-0000ztnhlkibldFCUCS M LUE .Facility:H5Hgwzh: 11-01-2022 End: 25-39-9875Uuxpbrj encounter procedureJENNIFER E JENNIFER [facility] start: 10-05-2022 End: 24-47-0269Ghwjbjh encounter procedureJENNIFER E JENNIFER [facility] start: 09-07-2022 End: 47-35-8687Aedfbys encounter procedureTaylor Joshua [facility] start: 01-55-6897Powzrn encounterJovita Virk MD Work Phone: [facility]Start: 08-17-2022 End: 63-23-1783Iwsfxke encounter procedureTaylor PeñaMark Tres [facility] start: 46-74-7149Cnssrnffi encounterAarti Kelsey MA, CCC, SWEATER DESIGNER Work Phone: [facility] Speech TherapyStart: 07-21-2022 End: 22-88-7288geaxbtzrdvUF ILDA FloresFacility:Q9Lfjgb: 07-20-2022 End: 81-67-8858Jicwna outpatient visit 25 minutesJovita Virk MD Work Phone: [facility] PM&R Cancer CareComment on above: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); Cognitive changes; Body mass index (BMI) 28.0-28.9, adultStart: 07-11-2022 End: 63-18-8187Pxlpdgm encounter procedureVianey SILVERMAN [facility] start: 06-15-2022 End: 84-44-9101uztpfmesnoVJHarriett FloresFacility:J1Zcysc: 06-13-2022 End: 46-85-2995Pwhnfzk encounter Chip SILVERMAN [facility] start: 04-27-2022 End: 87-23-5996eyogwiwuwrDVHarriett FloresFacility:T8Hfwld: 04-07-2022 RefillJovita Virk MD Work Phone: [facility] [place] PM&RComment on above: RefillStart: 68-42-2813bjkoopzqsiGX ILDA HOY .Facility:N6Jwici: 03-17-2022 ambulatoryDR ILDA HOY .Facility:L3Jydqe: 48-18-5343Xpytryopc for general adult medical examination without abnormal findingsDR ILDA HOY .[facility]22 End: 44-73-2610Jiytzfiwn for general adult medical examination without abnormal findingsDR ILDA HOY .Facility:P0Iqzax: 03-07-2022 End: 05-92-7341olfwllgkzgKZ ILDA HOY .Facility:L1Orteg: 03-01-2022 End: 48-64-4137Jebsquc encounter procedureSaeed Cantu Jr. executive [facility] start: 02-01-2022 End: 82-73-1212Azncdzy encounter procedureSaeed Cantu Jr. [facility] start: 01-04-2022 End: 72-20-4916Wnymnbz encounter procedureSaeed Cantu Jr. [facility] Procedures DateProcedureProcedure DetailPerforming ClinicianStart: 35-82-5719Xddpd X-ray of right femurIlda Peck MD Work Phone: [phone]: 30-09-8326Shujz X-ray of right tibia and right fibulaIlda Peck MD Work Phone: Start: 15-26-7319Eeqyulyrjrqsvz aspir&/inj major jt/bursa w/o usChristopher Dawn Anthony MD Work Phone: Start: 91-27-1542Izkpptonyzhmcj aspir&/inj major jt/bursa w/o usChristopher Dawn Anthony MD Work Phone: Start: 42-89-0991Vprhrbyaphshpd aspir&/inj major jt/bursa w/o usChristopher Dawn Anthony MD Work Phone: Start: 14-67-2493Spvdbu-up visitFollow-upCHRISTOPHER Dawn ANTHONYStart: 44-24-5739UmblfjuswnwLaafv Sabbagh MD Work Phone: Start: 52-96-8261WrcurwotxctMbrneso NILL Start: 36-25-6090Thnknoycljleav aspir&/inj major jt/bursa w/o usChristopher Dawn Anthony MD Work Phone: Start: 78-66-1023LAR screeningDR ILDA PECK .Comment on above:Performed By: #### TESTTOT #### [facility] [address] [place] [address] Dr. Reuben Rollins: 64-39-6122HMI screeningDR ILDA PECK .Comment on above: Performed By: #### IRON, PSASC, VITB12, VITAD #### [facility] [address] [place] [address] Dr. Reuben Rollins: 14-10-0363Dlmfvaamxofldjhhj with dilation of urethral strictureSaeed Cantu Jr. start: 95-73-0391QzphvxbtmkaRpqkvdu NILL Arthroplasty of kneeSaeed Cantu Jr. comment on above:Left sideArthroscopy of shoulder Shawanda NILL CardioversionMichael NILL Cervical arthrodesisMichael NILL Hernia repairSaeed Cantu Jr. repair of left inguinal herniaMichael NILL Repair of musculotendinous cuff of shoulderSaeed Cantu Jr. Transesophageal echocardiographyMichael SUKHL Plan of Treatment DateCare ActivityDetailAuthorStart: 43-27-1356Dptyrcpvk for malignant neoplasm of colonNOMS HealthcareStart: 29-41-1017GSS vaccine (adult) (1 - 1-dose 75+ series)RSV vaccine (adult) (1 - 1-dose 75+ series)[facility]Start: 09-04-2031 DTaP,Tdap and Td Vaccines (2 - Tdap)DTaP,Tdap and Td Vaccines (2 - Tdap) [facility] SystemStart: 07-99-7589Sknod microalbumin profileDTAP,TDAP,TD (2 - Tdap)[facility]: 48-44-0749AUZPLMAL CANCER SCREENING DISCUSSION PROSTATE CANCER SCREENING DISCUSSIONMercy Hospitaltart: 86-46-5359Exkgk BMI ScreeningAdult BMI ScreeningProWood County Hospital SystemStart: 70-40-3024Tabsjvf ScreeningTobacco ScreeningProSalem City Hospitaltart: 12-10-2025 End: 75-33-8515Hljryhr encounter vnptqbgto23/18/2026 11:00 AM EDT Office Visit [facility] [address] [place] [address] Román Dawson MD [address] [place] [address] [facility]OMDe[facility] Martin EndocrinologyStart: 94-72-9280Xxxqr panelCholesterolMETADENA PIKE MEDICAL CENTER SYSTEMStart: 80-94-5047Mmdyt X-ray of right femurXR femur RT 2V*[facility]: 07-23-2025 Plain X-ray of right tibia and right fibulaXR tibia fibula RT 2V*[facility]: 16-33-3235RZ Femur - right 2 ViewsHocking Valley Community Hospitaltart: 48-82-3019YP Tibia and Fibula - right 2 Views [facility]: 13-07-1980OgqwjwgjdHocking Valley Community Hospitaltart: 07-15-2025 End: 81-77-1557Netsrlt encounter pttyzoqcn67/21/2025 3:00 PM EDT Office Visit [facility] [place] [address] [place] [address] Sage Goode DO [address] [place] [id number] [facility] [place] [facility] ROUTEStart: 90-23-5397Rcbnhhndp vaccinationInfluenza Vaccine (#1)[facility]HealthStart: 04-60-3014Ktqtz BMI Screening Adult BMI ScreeningThe [facility] SystemStart: 06-11-2025 End: 41-78-3107Vprnskhknav [Units/volume] in Serum or PlasmaTSH Lab Routine Saarh's disease Expected: 06/11/2025 (Approximate), Expires: 06/11/2026[facility] HealthcareComment on above:Expected: 06/11/2025 (Approximate), Expires: 06/11/2026Start: 06-11-2025 End: 53-34-5159Gygdstfuh (T4) free [Mass/volume] in Serum or PlasmaT4, free Lab Routine Sarah's disease Expected: 06/11/2025 (Approximate), Expires: 06/11/2026[facility] HealthcareComment on above:Expected: 06/11/2025 (Approximate), Expires: 06/11/2026Start: 80-41-2460Figfsim ScreeningTobacco ScreeningThe [facility] SystemStart: 06-11-2025 End: 93-17-0032Uymnwvypjzsaldrq (T3) Free [Mass/volume] in Serum or PlasmaT3, free Lab Routine Sarah's disease Expected: 06/11/2025 (Approximate), Expires: 06/11/2026[facility] Work Phone: Comment on above:Expected: 06/11/2025 (Approximate), Expires: 06/11/2026Start: 06-11-2025 End: 67-17-9403Hpacqnu encounter tnrlizcac52/17/2025 10:30 AM EDT Office Visit [facility] [address] [place] [address] Román Dawson MD [address] [place] [address] [facility] END[facility]CRINOLOGYStart: 01-84-4014OARDI-19 Vaccine ( season)COVID-19 Vaccine ( season)[facility] HospitaledicM[facility] System Start: 93-19-2789Njhjlkofr vaccinationProWood County Hospital SystemStart: 02-18-2025 End: 35-83-1109BS Knee - right 4 ViewsProMedica Work Phone: Comment on above:Expected: 02/18/2025, Expires: 02/18/2026Start: 97-65-7147Rohlx BMI ScreeningAdult BMI ScreeningProWood County Hospital SystemStart: 66-48-9957Uyaklbt ScreeningTobacco ScreeningProWood County Hospital SystemStart: 07-17-2024 End: 86-68-6706Qpgrmgq encounter osgqvgogq06/23/2024 2:30 PM EDT Office Visit [facility] [address] [place] [address] Sage Goode [address] [place] [id number] [facility] ROUTEStart: 06-12-2024 End: 67-00-5025Wfzljmqyzhu [Units/volume] in Serum or PlasmaTSH Lab Routine Sarah's disease (CMS/HCC) Expected: 06/12/2024 (Approximate), Expires: 06/12/2025[facility] HealthcareComment on above:Expected: 06/12/2024 (Approximate), Expires: 06/12/2025Start: 06-12-2024 End: 82-02-6806Gsutyaiwl (T4) free [Mass/volume] in Serum or PlasmaT4, free Lab Routine Sarah's disease (CMS/HCC) Expected: 06/12/2024 (Approximate), Expires: 06/12/2025[facility] HealthcareComment on above:Expected: 06/12/2024 (Approximate), Expires: 06/12/2025Start: 06-12-2024 End: 39-44-0349Verqxjdvaeijflow (T3) Free [Mass/volume] in Serum or PlasmaT3, free Lab Routine Sarah's disease (CMS/HCC) Expected: 06/12/2024 (Approximate), Expires: 06/12/2025[facility] Healthcare Work Phone: Comment on above:Expected: 06/12/2024 (Approximate), Expires: 06/12/2025Start: 77-56-8878THTBN-19 Vaccine ( season)COVID- 19 Vaccine ( season)[facility] SystemStart: 04-75-0148ESGFC-19 Vaccine ( season)COVID-19 Vaccine ( season)[facility] SystemStart: 50-42-3387Eqxcdtdln vaccinationMOUNTAINSTAR HEALTHCARE HealthcareStart: 91-36-3257Ixiu Risk ScreeningFall Risk ScreeningProWood County Hospital SystemStart: 78-33-2393Dczhfhmeahlg Vaccine: 65+ Years (1 of 1 - PCV)Pneumococcal Vaccine: 65+ Years (1 of 1 - PCV)[facility] HealthcareStart: 43-74-7433GYKRB-19 Vaccine ( season)COVID-19 Vaccine ( season)[facility] SYSTEMStart: 28-36-3855Cnnxspxzb vaccinationINFLUENZA (#1)[facility]Start: 09-25-2022 DEPRESSION ASSESSMENTDEPRESSION ASSESSMENTMercy Hospitaltart: 09-20-2022 COVID-19 Vaccine (5 - Booster for Pfizer series)COVID-19 Vaccine (5 - Booster for Pfizer series)[facility]HealthStart: 99-27-3967JTVTB-19 VACCINE (5 - Pfizer series)COVID-19 VACCINE (5 - Pfizer series)[facility]: 07-19-2022 End: 72-65-4109Iqysbur encounter uaeyzggsa80/25/2022 Office Visit Physical Medicine & Rehab/PM&R Jovita Virk MD [address] [place] [address] [facility] [place] PM&RStart: 57-39-3861Qewvdxyjq vaccinationInfluenza Vaccine (#1)[facility] Start: 70-40-2912Lkuzqevy (RZV) Vaccine (2 of 2)Shingles (RZV) Vaccine (2 of 2) [facility]Start: 12-24-3881FWAHQ-19 Vaccine (4 - Booster for Pfizer series) COVID-19 Vaccine (4 - Booster for Pfizer series)[facility]Start: 11-15-2021 COVID-19 Vaccine (4 - Booster for Pfizer series)COVID-19 Vaccine (4 - Booster for Pfizer series)[facility]HealthStart: 46-78-9990Kvrab panelCholesterolMetGeorgetown Behavioral Hospital Start: 07-54-4003TBFWELZC SCREENDIABETES SCREENMercy Hospitaltart: 2019 Hepatitis B (HBV) Vaccine (optional start 60+ years)Hepatitis B (HBV) Vaccine (optional start 60+ years)[facility] SYSTEMStart: 48-87-4695CSR vaccine (optional 60+ years)RSV vaccine (optional 60+ years)[facility] SYSTEMStart: 92-79-5867Pjobpm wellness visitAnnual Wellness Visit (G0438)[facility]HealthStart: 40-21-2407Airakje stimulating hormone measurementTSHMetroHealthStart: 2009 Measurement of occult blood in single stool specimenFITMetroHealthStart: 61-10-0839Xjjxaramqjst vaccinationPneumococcal Vaccine(s) (50+ yrs) (1 of 1 - PCV)[facility]HealthStart: 22-16-1788Vrpedzorv for malignant neoplasm of colonCRC ScreeningMetroHealthStart: 02-44-1814Rpcurmhy (RZV) Vaccine (1 of 2)Shingles (RZV) Vaccine (1 of 2)[facility]HealthStart: 29-90-1361CBTRQPRUF (FIT-DNA)COLOGUARD (FIT-DNA)[facility]: 62-59-7046SdccksbzmrjZPPCVHJERPXGiphdrgyg Clinic Start: 37-18-9085GJWBJHNTUU CANCER SCREENINGCOLORECTAL CANCER SCREENINGMercy Hospitaltart: 02-67-9755AA COLONOGRAPHYCT COLONOGRAPHYMercy Hospitaltart: 98-28-2483ZXFWP OCCULT BLOODFECAL OCCULT BLOODMercy Hospitaltart: 02-22-2004 Screening for malignant neoplasm of colonSALEM CITY HOSPITALtart: 02-22-2004 SIGMOIDOSCOPYSIGMOIDOSCOPYMercy Hospitaltart: 35-15-0540FFACT SCREENLIPID SCREENMercy Hospitaltart: 53-64-9163Xsaftsdju A (HAV) Vaccine (optional start 19+ years)Hepatitis A (HAV) Vaccine (optional start 19+ years)METST. LAWRENCE PSYCHIATRIC CENTERtart: 78-83-8552Hxgnt BMI Follow Up PlanAdult BMI Follow Up PlanFrye Regional Medical Centertart: 55-56-4104CQYCKK PCP TEAM CHRONIC DISEASE VISITANNUAL PCP TEAM CHRONIC DISEASE VISITMercy Hospitaltart: 09-26-2493Mjqmejsi foot examinationDiabetic Foot ExamProSalem City Hospitaltart: 94-21-0426Wnnudcuuf C screeningHepatitis C AntibodyMetroHealthStart: 03-28-6793HZMALPGFW C SCREENING HEPATITIS C SCREENINGMercy Hospitaltart: 27-51-0848FPO SCREENINGHIV SCREENING [facility]: 43-06-6884NWSLAKEOUIOMROADRXEKAuarcfybc ClinicStart: 73-44-5829Hqkcsyw + diphtheria + acellular pertussis vaccine (product)Tdap BoosterMetroHealthStart: 08-30-4593TPQ screeningHIV TestMetroHealthStart: 20-09-6395Obvpvferjo ScreeningDepression ScreeningFrye Regional Medical Centertart: 48-10-1482NWYVWAUEHMNX (1 - PCV)PNEUMOCOCCAL (1 - PCV)[facility]: 21-41-4567Qcafyybr screeningDiabetic Ophthalmology ExamKettering Health [facility] Start: 1959Medicare Annual Wellness VisitMedicare Annual Wellness Visit [facility]ertart: 75-98-9756Dfxykbdqr for malignant neoplasm of colonMetroHealthStart: 06-92-7267Ssojyq Use: DiabeticStatin Use: Diabetic [facility] TroyArthrp kne condyle&platu medial&lat compartmentsROBOTIC REPLACEMENT TOTAL JOINT KNEE Primary osteoarthritis of right kneeFLOWER SURGERY Hemoglobin [Mass/volume] in BloodSt. Vincent HospitalPatient EducationLow back pain in adultsMercy Health [facility] Hospital Work Phone: [facility] Immunizations Immunization DateImmunizationNotesCare AtoasgjkRbuaurzg94-51-2723ezaixlgso virus vaccine, unspecified formulationChristopher Raj PRIETO Work Phone: [facility] Qbzheq56-51-3755sllskbsff virus vaccine, unspecified formulationMichael NILL [phone]-AptoxKettering Health [facility]amisburg 57-52-2156Fpebtzqyu, injectable, Madin [place] Canine Kidney, preservative free, quadrivalentMETROHEALTH SYSTEM Work Phone: [phone]2-7048xutqpo vaccine recombinantMichael Ulices BARRY Work Phone: cKindred HealthcareZhtpfs92-71-8855Iuhoird Monovalent (12+ yrs) COVID-19 vaccine, mRNA, spike protein, LNP, PF, 100 mcg/0.5 mL (LOQ=107)[place] 778810-31-2022Influenza, injectable, Madin [place]anna Canine Kidney, preservative free, quadrivalentJovita Virk MD Work Phone: QqbeoNzxbsw20-753727CnnkfMmlgpq34-65-6289kxplmb vaccine recombinantJovita Virk MD Work Phone: WiuopDkiznw19-089383ZdyfjUvzazy79-18-2493ETRF-WcK-5 (COVID-19) mRNA BNT- 162b2 vaxMichael NILL [phone]-JxrtpKettering Health Miamisburg 02-09-5258yushcgubas, tetanus toxoids and pertussis vaccineJovita Virk MD Work Phone: FwylrNkyodl41-486445SrpjnHekjqs00-71-0833YXZA-QdF-1 (COVID-19) Ad26 vaccine, Juana Cantu Jr. [facility] 11379192-84-6866zmoexlldw, injectable, quadrivalent, preservative Camryn Virk MD Work Phone: XagvpHbrktr03-976009JlistIxeovr85-97-0472tjhgvwtxa virus vaccine, unspecified formulationJovita Virk MD Work Phone: RfkebMuhcev57-235842WvojuMqwygk81-26-3205awjchaond virus vaccine, unspecified formulationSaeed Cantu Jr. executive [facility] 03799004-16-9931Pjlcfj (12+ yrs) SARS-COV-2 (COVID-19) vaccine, mRNA, spike protein, LNP, pres. free, 30 mcg/0.3mL dose (TTF=173)Jovtia Virk MD Work Phone: CuauyAwlbvw88-678083SehntVhwbjb52-90-5395Epgorc (12+ yrs) SARS-COV-2 (COVID-19) vaccine, mRNA, spike protein, LNP, pres. free, 30 mcg/0.3mL dose (FWM=892)Jovita Virk MD Work Phone: PvjjmSatvca19-795812AroknYjcxmh10-20-5599canhoqsyc virus vaccine, unspecified formulationSaeed Cantu Jr. executive Urology [facility] 10529727-50-2147tmvlievcg, injectable, quadrivalent, preservative Camryn Virk MD Work Phone: DkklyHgvahp22-132494WjgcyDwdijo21-99-3299OZBO-IuX-8 (COVID-19) mRNA BNT- 162b2 Darnell Cantu Jr. [facility] 03-992541-38-7465UVPX-SxY-6 (COVID-19) mRNA BNT-162b2 beau Cantu Jr. [facility] Payers DatePayer CategoryPayerPolicy [id number]-[id number] 09-16-9818QkhmM[facility] 1.2.840.012049.1.13.693.2.7.9.720530.316636.24440-49-2115NwzkGallup [facility] Medical Center Managed Care - PPO1.2.840.890742.1.13.424.2.7.9.996970.505.15287-33-1030Wzeozrc [id number] IndemnityMEDICAL MUTUAL - TRADITIONAL [id number]9706.425.70272-96-7839Hemaedd 1.2.840.198905.1.13.56.2.7.3.6068[id number] Medicare1.2.840.150227.1.13.56.2.7.3.921259.315 2014Medicare FFSMEDICARE 1..840.325260.1.13.56.2.7.9.582070.100.315 [id number] 65-29-2644Iuha-ltc61334534557-56-0360Btnwogg7827204 2..1.712009.3.579.2.60104-38-6600Ozcqpke7473667 2..1.396045.3.579.2.91755-68-0856Spuvbwn4474267 2.0.1.303248.3.579.2.67550-18-9436Cbncorj9012994 2.0.1.884576.3.579.2.41183-10-5960Xisqczp5406145 2..1.075572.3.579.2.22431-80-6710Ntthlcx8426749 2..1.814644.3.579.2.06598-22-5849Ggjottm8630022 2.0.1.695500.3.579.2.92305-80-0574Wvbcjkr7607065 2.0.1.217875.3.579.2.99893-71-1349Nopvrwq3672855 2.16840.1.637668.3.579.2.34948-24-0208Umynsid3888148 2.16840.1.729613.3.579.2.48053-00-1161Hxfgjdy9984039 2.16840.1.661709.3.579.2.59564-25-6450Zebzask29046353 2.16840.1.280109.3.579.2.32816-51-5612Hhfyvhe54353772 2.16840.1.330008.3.579.2.32800-11-2435Ggxwxfs28854263 2.16840.1.438524.3.579.2.33332-42-3430Pljetcz52539504 2.840.1.101132.3.579.2.59648-84-1013Lpfiojo37719912 2.16840.1.101069.3.579.2.70798-32-6175Jnbjrmp12651561 2.16840.1.220203.3.579.2.23736-16-0337Vybzirl582955150 2.16840.1.339941.3.579.2.870100-79-5937Ovktxwy955788075 2.16840.1.306188.3.579.2.324933-56-8627Khktenv778480946 2.16840.1.002194.3.579.2.259569-39-0495Wppjfje60489802 2.16840.1.745451.3.579.2.941622-05-2111Zadqkkx76717151 2.16840.1.057856.3.579.2.304570-44-9461Ebdebsd9279904 2.840.1.909625.3.579.2.1259Private Health [facility] [id number] 7e8b2nqo-c317-5643-p3sj-0389h5117axpEqixiez6736385 2.16.840.1.491258.3.579.2.087Uiwzrjj868432227 99bdq274-723s-0q90-77z5-304dk9p97kf5Cubxtcf11791723 2..840.1.139466.3.579.2.259Hzudlya30027196 2..840.1.513525.3.579.2.531 Goellgq80637762 2..840.1.630417.3.579.2.603Rdzffol95116262 2..840.1.588742.3.579.2.531 Social History DateTypeDetailFacilityStart: 10-05-2021 End: 52-98-6061Fxafuwa smoking statusNever smoked tobacco (finding)[facility] Tobacco smoking statusNeverExecutive [facility] start: 11-05-2020 End: 75-63-1300Riq Assigned At BirthMaleExecutive [facility] start: 08-24-2011 End: 03-78-1768Zluflrf use and exposureSmokeless tobacco non-userMetroHealth Start: 12-07-2017 End: 16-57-0563Ltzkuvf intakeNot AskedMetroHealthStart: 67-58-7544Iqf Assigned At BirthNot on fileMetroHealthStart: 99-95-3350Sneqdxd SDOH Social Connections Naklb6PrcopRbcjcmTnysf: 11-94-1840Yewsjfr SDOH Social Connections Get Together2 [facility]HealthStart: 19-99-0791Nrqzbue SDOH Social Connections Vhsykc48IymrhRqdexm Start: 07-42-4531Mmbveojdg09PnhplZhehtzHemfr: 04-26-2023 End: 52-54-0244Ghfopen intakeCurrent drinker of alcohol (finding)[facility]: 11-05-2020 End: 99-19-6433Mdhcwzx of Social functionMercy Hospitaltart: 12-04-2017 Alcohol CommentsocialMercy Hospitaltart: 36-58-6419Boj Assigned At [facility] HospitalHow often to you have a drink containing alcohol?Monthly or lessNOMS HealthcareHow many standard drinks containing alcohol do you have on a typical day?1 or 2NOMS HealthcareHow often do you have 6 or more drinks on 1 occasion?WeeklyNOPR HealthcareStart: 07-29-2012 End: 25-90-9201QgcRmsv (finding)[facility] Dotspin SystemStart: 86-29-7298Pqjlxn identityIdentifies as male gender (finding)[facility] SystemWithin the last year, have you been [...] Procedure CodeEquipment CodeEquipment Original TextEquipment IdentifierDatesBrng Tib 04wso25jv 0d Kn Ant - [id number]: 79-85-6704Itxnhs Bn Palacos Radpq 40g Rpl [id number] - [id number]: 40-94-6429Nf Tib 79mm Cocr Kn I Beam - [id number]: 52-48-2199Cycz Fem Kn Lt 70mm Cr Cmnt - [id number]_impStart: 07-62-9413Txug Ptlr Thn 34mm 3 Pg Kn Ser - [id number] Start: 09-05-2016 Goals DatePatient GoalDesired Activity/StatePersonal health goalComment on above: Evaluation of progress towards goal: Maximize work with PT at discharge to strengthen L knee Functional Status GctjUcpdjogltyYdiqtpKamwctdf74-70-8596Klyhlugvzu StatusN/AExecutive [facility]11-19-2024Functional StatusN/AFDetwiler Memorial Hospital General Surgery Jnznosdi43-13-0906Otsitglgnn StatusN/[facility] Surgery Fszmdbua41-86-2807Sznwyiqzrz StatusN/AExec[facility]09-18-2023Functional StatusN/AExec[facility]03-10-2023Functional StatusN/AExecutive [facility]ue10-26-2022Are you deaf, or do you have serious difficulty hearingNo 07/20/2022 2:51 PM Jovita Lopez MD No FptkyDqopui48-90-6084Jyl you blind, or do you have serious difficulty seeing, even when wearing glassesNo 07/20/2022 2:51 PM Jovita Lopez MD NoMetrP[facility] 67-56-2453Ni you have serious difficulty walking or climbing stairsYes 07/20/2022 2:51 PM Jovita Lopez MD HpeQnptsBczqsu99-69-6483Zn you have difficulty dressing or bathingNo 07/20/2022 2:51 PM Jovita Lopez MD No JpituRdzglw14-35-5230Kthfqsr of a physical, mental, or emotional condition, do you have difficulty doing errands alone such as visiting a physician's office or shoppingYes 07/20/2022 2:51 PM Jovita Lopez MD [facility] Mental Status BvjsMznwvwmgnzKstvraJurqbuis30-40-6270Qvpfkas of a physical, mental, or emotional condition, do you have serious difficulty concentrating, remembering, or making decisionsYes 07/20/2022 2:51 PM Jovita Lopez MD [facility] Clinical Notes 04-07-2022 to 06-11-2025 Note Date & DtjpHsevGptsnrbl87-37-6312 Miscellaneous Notes* Telephone Encounter - Margaret Quintanilla - 06/11/2025 3:39 PM EDT Pt signed consent for Rt TKA 08/06/25-pt called today stating he has to cancel surgery as is changing hospitals, new insurance will not be covered with CAF. Surgery canceled / all notified. documented in [facility] encounterK[facility]-2025 Telephone encounter Note* Telephone Encounter - Margaret Quintanilla - 06/11/2025 3:39 PM EDT Pt signed consent for Rt TKA 08/06/25-pt called today stating he has to cancel surgery as is changing hospitals, new insurance will not be covered with CAF. Surgery canceled / all notified. [facility] [employer] [id number] History of Present illness Narrative* Román Dawson [...] 6 months (around 12/09/2025). documented in this encounterCass [facility] [id number] Evaluation note* Diagnosis Onset Date Resolution Status Admit Date Primary osteoarthritis of right knee acuteAugust 2024 10:39am [facility] Work Phone: 1(475) 851-653208-19-2025 Evaluation note* Diagnosis Onset Date Resolution Status Admit Date Primary osteoarthritis of right knee acuteAugust 2024 10:39amHypersomniaacuteOctober 2024 4:26pmLow back pain at multiple sitesacuteOctober 2024 4:26pmOSA (obstructive sleep apnea)acuteOctober 2024 4:26pmSnoringacuteOctober 2024 4:26pmPrimary osteoarthritis of right kneeacuteOctober 2024 11:13am [facility] Work Phone: 1(729) 742-764905-27-2025 History of Present illness Narrative* Osmin Atnhony MD - 02/18/2025 10:00 AM EDTAssociated Order(s): [...] replacement. 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 Cornell meet with the surgical scheduler to schedule the procedure. Informed consent obtained. His knee was re-injected today. Informed consent obtained. Return in about 3 months (around 05/21/2025) for X-Ray-Right Knee, Post Op. Pat was advised to contact the office if there are any problems, questions, or concerns. *I have seen and evaluated the patient today with my physician production administrative assistant and agree with all aspectsof the [...] via MyChart?: Immediate [1] documented in this encounterMercy Health – The Jewish HospitaliLumen [id number] [facility] Chief Complaint: [...] days., Disp: , Rfl: vitamin B complex 909-6-037-2-2 mg/mL injection, Inject into the shoulder, thigh, [...] reversible ischemia. Ejection fraction is normal. Transesophageal Echocardiogram-[facility] Name: VIANEY LACEY Study Date: 07/11/2023 12:24 PM B/P: 104 mmHg/74 mmHg HR: Date of : 1960 Location: [facility] Height: 68 in. Age: 63 year(s) Patient Room : Weight: 189 lb. Gender: Male Patient Status: OutPt BSA: 2 m2 Indication: Atrial Fibrillation, Pre-Cardioversion Examination: JAMIN (Transesophageal Echo / CFI) Image Quality: Good Patient Consent: Informed, written consent was obtained for the procedure s p @ c 3 Exam Location (more content not included)...[facility] 10-21-2024 Hospital Discharge instructions Patient [...] urethra. Follow these instructions at home: Take khge-ooh-vauqses and prescription medicines only as told by [...] provider. Document Revised: 03/30/2022 Document Reviewed: 03/30/2022 [employer] Patient Education 2023 eMeter. Follow Up Care 10/16/2023 14:07:51 With:HERRERA PRIETO, Vianey Crawford, URL Address: [facility] [address] , [place] [address] [phone] When: Unknown Comments:1 yr w/ PSA and T level [facility] 01-27-2025 NotePatient Education Urology Benign Prostatic [...] Follow these instructions at home: ??? Take nwvu-cde-jhkxxph and prescription medicines only as told by [...] symptoms do not get (more content not included)...[facility]01-14-2025 History of Present illness Narrative* Osmin Anthony [...] evaluated the patient today with my physician production administrative assistant and agree with all aspectsof the [...] created via procedure documentation [facility] NoteGeneral Surgery Office/Clinic Note Chief Complaint consultation for foreign body [facility] 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 2. Atrial flutter [...] function. He is also recently seen a back stayer. They are weaning of amantadine which was [...] Utilities: Not At Risk (11/16/2023) [facility] Utilities Threatened with loss of utilities: No [...] route for 90 days. vitamin B complex 341-7-813-2-2 mg/mL injection Inject into the shoulder, thigh, [...] directed. (Pa (more content not included)...[facility] 06-12-2024 History of Present illness [...] 1 year (around 06/12/2025). documented in this encounterCass Medical [id number] History of Present illness Narrative* Osmin Anthony [...] evaluated the patient today with my physician production administrative assistant and agree with all aspectsof the [...] created via procedure documentation documented in this encounterK[facility]08-13-2024 NoteGeneral Surgery Office/Clinic Note Chief Complaint consultation [...] prior to procedure. 2. Chronic anticoagulation (Z79.01: nursing home (current) use of 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s) see # 1 [...] Abuse - Denies Substa (more content not included)...[facility]Comment on above:Result Comment: Electronically Signed By: ROBERTO PRIETO, Shawanda Taylor.kusum\Date and Time Signed: 05/07/24 15:50 [id number] History of Present illness Narrative* Osmin Anthony [...] evaluated the patient today with my physician production administrative assistant and agree with all aspectsof the [...] created via procedure documentation documented in this [facility] Hospital Discharge instructions Patient Education 10/16/2023 13:58:13 [...] provider. Document Revised: 01/20/2022 Document Reviewed: 01/20/2022 [employer] Patient Education 2022 eMeter. Follow Up Care 07/31/2023 10:30:59 With:HERRERA PRIETO, Vianey Crawford, CHRISTOFERL Address: [facility] [address] , [place] [address]- When:Within 1 Year(s) Comments:w/[facility] Evaluation note* Encounter Date Diagnosis Assessment [...] I advised him to avoid NSAIDs or wpmmuun-rhd-zgyltpm supplements. This deanna with the importance of [...] (ICD-10 - G47.33)Continue follow-up with the specialist. [facility] Other 10-17-2023 History general Narrative - Reported* Type Description Date Medical History FATIGUE Medical HistoryEDEMASurgical HistoryCARDIO ZFAUQUW5307/11/2023Surgical HistoryLEFT KNEE REPLACEMENTSurgical HistoryC5-C6 PLATE AND SCREWSSurgical HistoryDOUBLE HERNIA REPAIRSurgical HistoryRIGHT SHOULDER SCOPESurgical HistoryCOLONOSCOPY Surgical HistoryCYSTO SCOPEHospitalization HistorySEE ABOVE [facility] Other 09-18-2023 Hospital Discharge instructions Patient Education [...] therapy. Follow these instructions at home: Take ofns-uom-swuwext and prescription medicines only as told by [...] provider. Document Revised: 05/13/2021 Document Reviewed: 05/13/2021 [employer] Patient Education 2022 eMeter. Follow Up Care 05/04/2023 10:34:04 With:HERRERA PRIETO, Vianey Crawford, URL Address: [facility] [address], [place] [address] [phone] When:Within 6 Month(s) Comments:w/Testosterone Level, PSA and CBC [facility] 08-02-2023 NoteHNO ID: [id number] Author: Shawanda Hernandez PA-C Service: ? Author Type: Physician Wool Hat Forming Machine Tender Type: Progress Notes Filed: 04/26/2023 11:40 AM [...] Cervical disc disease CVA (cerebral vascular accident) ([facility]) due to head trauma [...] Full Oblique Extension With (more content not included)...[facility] 04-26-2023 History of Present illness Narrative* Shawanda [...] Tenderness Normal Normal Gaenslen's Maneuver Normal Normal Mehdi's Test ([facility] Pathology) Normal Normal @ZZCSPINENECKEXAM@ Cervical [...] urethra. Follow these instructions at home: Take acxl-gip-efzmexw and prescription medicines only as told by [...] 09/11/2006 Document Revised: 08/06/2019 Document Reviewed: 10/16/2017 [employer] Patient Education 2020 eMeter. Follow Up Care 11/01/2022 10:29:54 With:HERRERA PRIETO, Vianey Crawford, URL Address: [address] [place] [phone]- When: Unknown [facility] 11-18-2022 History of Present illness Narrative* Aarti Kelsey MA, SHANNAN, SWEATER DESIGNER - 08/12/2022 12:27 PM EST SPEECH LANGUAGE [...] stated should already be in the system. SWEATER DESIGNER was speaking with patient's spouse via phone conversation attempting to troubleshoot and bypass the preliminary questionnaires. However, it was unsuccessful. SWEATER DESIGNER sent patient's spouse a direct link to her cell phone to connect to video visit and the same issues arose. Patient was connected to [employer] and using an iPad in home setting. The iPad did not successfully pass the hardware test and patient/patient's spouse were never able to successfully log on. SWEATER DESIGNER provided patient/patient's spouse the [facility] Support Team's contact information to reach out for further assistance with log on issues. SWEATER DESIGNER will e-mail patient's spouse/patient information regarding memory strategies, etc to help in the home setting (patient's spouse reported patient tends to misplace belongings, such as keys, etc and could use a refresher on the strategies. Patient's spouse stated she will take a look at the strategies and go from there with scheduling anything further. SWEATER DESIGNER provided patient/spouse with our direct line to SR Therapy dept if she has any further questions/concerns or needs to schedule. Patient left without being seen this date. documented in this [id number] Instructions* Patient Instructions* Jovita Virk MD - 07/20/2022 2:49 PM EDT -Get the sleep apnea addressed -Hold amantadine -Add memantine 5mg daily. -External referral for brain MRI. -Speech therapy for cognitive strategies. -R knee surgery. -F/up 1 year, sooner if needed. documented in this [id number] History of Present illness Narrative* Jovita Virk [...] 200 mg into the muscle once amonth. 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 Last available brain imaging [id number] showed ventriculomegaly that was deemed not hydrocephalus [...] Risk protocol implemented: No documented in this [id number] Telephone encounter Note* Telephone Encounter - Renetta [...] PCP on file No PCP on file [id number] Miscellaneous Notes* Telephone Encounter - Renetta Boyer [...] Appointments Appointment Date:02/01/2022 10:00:00 AM Scheduled Provider: Location:[facility] Appointment Type:URO Nurse Visit Appointment Date:03/01/2022 09:00:00 AM Scheduled Provider:Saeed Cantu Jr., MD Location:[facility] Appointment Type:URO Office Visit Appointment Date:04/05/2022 11:15:00 AM Scheduled Provider:Saeed Cantu Jr., MD Location:[facility] Appointment Type:URO Office Visit [facility] evaluation + Plan note Future Appointments Appointment Date:03/01/2022 09:00:00 AM Scheduled Provider:Saeed Cantu Jr., MD Location:[facility] Appointment Type:URO Office Visit Appointment Date:04/05/2022 11:15:00 AM Scheduled Provider:Saeed Cantu Jr., MD Location:[facility] Appointment Type:URO Office Visit [facility] evaluation + Plan note Future Appointments Appointment Date:04/05/2022 11:15:00 AM Scheduled Provider:Pepe Brunson MD, Saeed Landa Location:[facility] Appointment Type:URO Office Visit Diagnostic Tests Pending * Testosterone Level Total 03/01/22 [facility] evaluation + Plan note Future Appointments Appointment Date:07/11/2022 10:15:00 AM Scheduled Provider: Location:[facility] Appointment Type:URO Nurse Visit [facility] evaluation + Plan note Future Appointments Appointment Date:09/07/2022 10:00:00 AM Scheduled Provider: Location:[facility] Appointment Type:URO Nurse Visit [facility] evaluation + Plan note Future Appointments Appointment Date:10/05/2022 10:00:00 AM Scheduled Provider: Location:[facility] Appointment Type:URO Nurse Visit [facility] evaluation + Plan note Future Appointments Appointment Date:11/01/2022 10:00:00 AM Scheduled Provider: Location:[facility] Appointment Type:URO Nurse Visit [facility] evaluation + Plan note Future Appointments Appointment Date:11/30/2022 10:00:00 AM Scheduled Provider:Taylor Joshua MD Location:[facility] Appointment Type:URO Office Visit Diagnostic Tests Pending * CBC w/ Auto Diff 11/01/22 * Testosterone Level Total 11/01/22 [facility] evaluation + Plan note Diagnostic Tests Pending * Testosterone Level Total 12/17/22 * Testosterone Level Total 04/25/23 [facility] evaluation + Plan note Future Appointments Appointment Date:04/05/2023 10:00:00 AM Scheduled Provider: Location:[facility] Appointment Type:URO Nurse Visit [facility] evaluation + Plan note Future Appointments Appointment Date:05/30/2023 10:00:00 AM Scheduled Provider: Location:[facility] Appointment Type:URO Nurse Visit [facility] evaluation + Plan note Future Appointments Appointment Date:07/10/2023 09:30:00 AM Scheduled Provider: Location:[facility] Appointment Type:URO Nurse Visit Appointment Date:11/27/2023 09:45:00 AM Scheduled Provider:Vianey SILVERMAN MD Location:[facility] Appointment Type:URO Office Visit Diagnostic Tests Pending * Testosterone Level Total 06/12/23 * PSA Total 06/12/23 * CBC w/ Auto Diff 06/12/23 [facility] evaluation + Plan note Future Appointments Appointment Date:10/21/2024 10:15:00 AM Scheduled Provider:Vianey SILVERMAN MD Location:[facility] Appointment Type:URO Office Visit Diagnostic Tests Pending * PSA Total 10/16/23 [facility] evaluation + Plan note Future Appointments Appointment Date:10/21/2024 10:15:00 AM Scheduled Provider:Vianey SILVERMAN MD Location:[facility] Appointment Type:URO Office Visit [facility] Evaluation + Plan note Future Appointments Appointment Date:10/27/2025 10:30:00 AM Scheduled Provider:Vianey SILVERMAN MD Location:[facility] Appointment Type:URO Office Visit Diagnostic Tests Pending * PSA Total 10/21/24 * Testosterone Level Total 10/21/24 [facility] evaluation note* 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 Body mass index (BMI) 28.0-28.9, adult [facility] Diagnosis Height loss- Primary Loss of height documented in this encounter [facility] noteNo assessment information availableOur [facility] Of [facility] Work Phone: Evaluation note* Diagnosis Onset Date Resolution Status BPH (benign prostatic hyperplasia) acuteCKD (chronic kidney disease) stage 2, GFR 60-89 ml/minacute [id number] (obstructive sleep apnea)acuteRenal cystacute [facility] Work Phone: Evaluation note* Diagnosis NANCY (obstructive sleep apnea)- Primary Obstructive sleep apnea (adult) (pediatric) Hypersomnia Hypersomnia, unspecified Snoring Other dyspnea and respiratory abnormality Atrial fibrillation, unspecified type (CMS/HCC) Sleep deprivation Problems related to lack of adequate sleep documented in [facility] encounter [facility] Healthcare[facility]* 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 documented in this encounter [facility] Healthcare[facility]* Diagnosis Primary osteoarthritis of right knee- Primary documented in this encounter [facility]* Diagnosis Primary osteoarthritis of right knee- Primary documented in this encounter [facility]* Diagnosis Primary osteoarthritis of right knee- Primary documented in this encounter [facility]* Diagnosis Primary osteoarthritis of right knee- Primary [facility]* Diagnosis Onset Date Resolution Status Admit Date Primary osteoarthritis of right knee acuteAugust 2024 10:39am [facility] Work Phone: Evaluation note* Diagnosis Sarah's disease- Primary Chronic lymphocytic thyroiditis documented in this encounter [facility] HealthcareHospital course Narrative No data available for this section [facility] Hospital Discharge instructions No data available for this section [facility] InstructionsNot on filedocumented in this encounter [facility] SystemInstructionsNot on filedocumented in this encounter [facility] SystemInstructions* Attachments The following attachments cannot be sent through Care Everywhere. * Steroid injection (Mosotho) * Knee replacement (Mosotho) documented in this encounterProMedica Health SystemInstructionsNot on file documented in this encounterProWood [facility] Hospital SystemProgress note No data available for this section [facility] reason for referral (narrative)No reason for referral information availableMer[facility] Work Phone: Advance Directives Code StatusDate [...] of brain injury (HCC) Jovita Virk MD [address] [place] [address] Referral IDStatusReasonStart DateExpiration DateVisits RequestedVisits [id number] Patient Preference Comments Brain MRI without contrast. H/o TBI 2010. Continues to struggle with cognitive deficits, fatigue, impaired balance, unimproved. Please evaluate for other structural causes of these issues. Fax report to me at [phone]. SpecialtyDiagnoses / ProceduresReferred By ContactReferred To [facility] Path[facility] Diagnoses Cognitive changes Late effect of brain injury (HCC) Jovita Virk MD [address] [place] [address] Speech [address] [place] [address] Referral IDStatusReasonStart DateExpiration DateVisits RequestedVisits [id number] Review Consultation-[facility] QuestionAnswer Is this for a new patient [...] neoplasmUnknownfamily memberFamily history of other conditionUnknownmotherHeart diseaseUnknownDeceasedUnknownsonHypertensionUnknown Relationship Condition Age at Onset Recorded Date/T benjamín brother Alcohol abuse Unknown DeceasedUnknownfatherHeart diseaseUnknownHistory of strokeUnknownLymphomaUnknown Myocardial infarctionUnknownmotherHeart diseaseUnknownMalignant neoplasm of breastUnknownsonHypertensionUnknownbrotherCrohn's diseaseUnknownsisterDeceased UnknownMultiple sclerosisUnknownsisterHeart diseaseUnknownAtrial fibrillation Unknown Chief Complaint and Reason for Visit Chief Complaint Admit Date [facility]-NEW RT KNEE PAIN NX May 13 10:39am 1 year f/u July 14, 2025 4 :26pm Knee Pain July 23, 2025 8 :39am Pre-Op RTK July 23, 2025 1 0:17am H&P RTKA-SDD July 23, 2025 1 1:13am M17.11 - Unilateral primary osteoarthrit is, right July 23, 2025 11:16am Reason for Visit Admit Date Primary osteoarthritis of right knee Aug ust 2024 10:39am Hypersomnia July 14, 2025 4 :26pm Low back pain at multiple sites July 14, 2025 4:26pm NANCY (obstructive sleep apnea) July 142024 4:26pm Snoring July 14, 2025 4 :26pm Primary osteoarthritis of right knee Oct mehdi 2024 11:13am Chief Complaint Admit Date [facility]-NEW RT KNEE PAIN NX May 13 10:39am 1 year f/u July 14, 2025 4 :26pm Reason for Visit Admit Date Primary osteoarthritis of right knee Apr us2024 10:39am Chief Complaint Admit Date M25.561 - Pain in right knee April 10:31am [facility]-NEW RT KNEE PAIN NX May 13 10:39am Reason for Visit Admit Date Primary osteoarthritis of right knee Apr ust 2024 10:39am Chief Complaint Unknown RENAL 1 year follow upReason for VisitBPH (benign prostatic hyperplasia) CKD (chronic kidney disease) stage 2, GFR 60-89 ml/min [id number] NANCY (obstructive sleep apnea) Renal cyst Additional Source Comments Reason for Visit (unrecogniz ed section and content) ReasonCommentsRefillReasonCommentsMonitoring/follow-upReasonCommentsback issue ReasonCommentsSleep TzidwPpvmowLyijfrwnHquuqn-hrgosssnjNvilnlImvdvjtpYvpmyt-xv Right knee pain - wants injection - last seen 06/11/24ReasonCommentsFollow-up Right knee pain - wants injection - last seen 05/24/23ReasonCommentsFollow-up Right knee pain - wants injection - last seen 11/02/23ReasonCommentsFollow-upRight knee pain - wants injection - last seen 10/08/24ReasonCommentsFollow-upThyroid Problem Care Teams (unrecognized sec tion and content) Team Status: Active Member Role Status Timo Peck MD Primary Care Provider Active Team Status: Inactive Member Role Status Timo Peck MD Primary Care Provider Active Start: May 13, 2025 End: May 13, 2025Conner Charles II ProviderActiveStart: May 13, 2025 End: May 13, 2025 Team Status: Active Member Role Status Dates Ilda Peck MD Primary Care Provider Active Start: May 13, 2025 Conner Charles II ProviderActiveStart: May 13, 2025 Team MemberRelationshipSpecialtyStart DateEnd Date Jovita Virk MD [address] [place] [address] PhysicianPhysical Medicine & Rehab/PM&R1Team MemberRelationshipSpecialty Start DateEnd Date Jovita Virk MD [address] [place] [address] PhysicianPhysical Medicine & Rehab/PM&R1Team MemberRelationshipSpecialty Start DateEnd Date Jovita Virk MD [address] [place] [address] PhysicianPhysical Medicine & Rehab/PM&R1Team MemberRelationshipSpecialty Start DateEnd Date Ilda Peck MD PCP - GeneralFamily Medicine12/04/17 Team Status: Inactive Member Role Status Timo Peck MD Primary Care Provider Active Start: April 05, 2024 End: April 05Conner Raza ProviderActiveStart: April 05, 2024 End: April 05, 2024 Team Status: Active Member Role Status Timo Peck MD Primary Care Provider Active Start: June 03, 2024 Conner Menendez ProviderActiveStart: June 03, 2024 Team Status: Inactive Member Role Status Dates Ilda Peck MD Primary Care Provider Active Start: June 06, 2024 End: June 06magali Knight MDAttending ProviderActiveStart: June 06, 2024 End: June 06, 2024Team MemberRelationshipSpecialtyStart DateEnd Date Ilda Peck MD [address] [facility] [address] [facility]05/13/24Team MemberRelationshipSpecialtyStart DateEnd Date Ilda Peck MD [address] [place] [phone] PCP - [facility]Ad[facility] Systemly Medicine05/13/24Team MemberRelationshipSpecialtyStart DateEnd Date Ilda Peck MD [address] [facility] [address] PCP - [facility] Medicine05/13/24Team MemberRelationshipSpecialtyStart DateEnd Date Ilda Peck MD [address] [place] [address] PCP - Generalmi Medicine05/13/24Team MemberRelationshipSpecialtyStart DateEnd Date Ilda Peck MD PCP - Rpdmzno57/11/16Team MemberRelationshipSpecialtyStart DateEnd Date Ilda Peck MD [address] [place] [facility] [place] [address] PCP - Ccnpobp91/11/16Team MemberRelationshipSpecialtyStart DateEnd Date Ilda Peck MD PCP - Pbptdlw48/11/16Team MemberRelationshipSpecialtyStart DateEnd Date Ilda Peck MD PCP - Jvxfnez40/11/16Team MemberRelationshipSpecialtyStart DateEnd Date Jovita Virk MD [address] [place] [phone] PhysicianPhysical Medicine & Rehab/PM&R1Team MemberRelationshipSpecialty Start DateEnd Date Ilda Peck MD PCP - GeneralFamily Medicine05/13/24Team MemberRelationshipSpecialtyStart DateEnd Date Ilda Peck MD PCP - GeneralFamily Medicine05/13/24Team MemberRelationshipSpecialtyStart DateEnd Date Ilda Peck MD PCP - Befsmpj81/11/16 Team Status: Active Member Role/Relationship Status Timo Peck MD Primary Care Provider Active Team Status: Inactive Member Role/Relationship Status Timo Peck MD Primary Care Provider Active Start: May 13, 2025 End: May 13, 2025Scot Hutchison II, MDAak[facility] ProviderActiveStart: May 13, 2025 End: May 13, 2025 Team Status: Inactive Member Role/Relationship Status Timo Peck MD Primary Care Provider Active Start: July 14, 2025 End: July 14, 2025Sage Russel Attending ProviderActiveStart: July 14, 2025 End: July 14, 2025 Team Status: Active Member Role/Relationship Status Dates Ilda Peck MD Primary Care Provider Active Start: July 23, 2025 Junior Charles IIending ProviderActiveStart: July 23, 2025 Team Status: Active Member Role/Relationship Status Dates Ilda Peck MD Primary Care Provider Active Start: July 23, 2025 Junior Charles IIending ProviderActiveStart: July 23, 2025 Team Status: Inactive Member Role/Relationship Status Dates Ilda Peck MD Primary Care Provider Active Start: July 23, 2025 End: July 23, 2025Scot Hutchison II, MDAttending ProviderActiveStart: July 23, 2025 End: July 23, 2025 Team Status: Active Member Role/Relationship Status Dates Ilda Peck MD Primary Care Provider Active Start: July 23, 2025 Junior Charles IIending ProviderActiveStart: July 23, 2025 Team Status: Inactive Member Role/Relationship Status Dates Ilda Peck MD Primary Care Provider Active Start: July 23, 2025 End: July 23, 2025Scot Hutchison II, MDAttending ProviderActiveStart: July 23, 2025 End: July 23, 2025 Team Status: Inactive Member Role/Relationship Status Timo Peck MD Primary Care Provider Active Start: July 23, 2025 End: July 23, 2025Scot Hutchison II, MDAttending ProviderActiveStart: July 23, 2025 End: July 23, 2025 Team Status: Inactive Member Role/Relationship Status Dates Ilda Peck MD Primary Care Provider Active Start: July 25, 2025 End: July 25, 2025Junior Charles IIending ProviderActiveStart: July 25, 2025 End: July 25, 2025 (unrecognized sect ion and content) No Status Records FoundNo Status Records FoundNo Status Records FoundNo Status Records FoundNo Status Records FoundNo Status Records FoundNo Status Records FoundNo Status Records Found INFORMATION SOURCE (unrecogn ized section and content) DATE CREATED AUTHOR 01/27/2023 [facility] DATE CREATED AUTHOR AUTHOR'S ORGANIZ ATION 04/27/2023 [facility] DATE CREATED AUTHOR AUTHOR'S ORGANIZ ATION 09/23/2023 [facility] DATE CREATED AUTHOR AUTHOR'S ORGANIZ ATION 10/23/2024 [facility] [place] DATE CREATED AUTHOR AUTHOR'S ORGANIZ ATION [address] [facility] DATE CREATED AUTHOR AUTHOR'S ORGANIZ ATION 06/07/2025 [facility] DATE CREATED AUTHOR AUTHOR'S ORGANIZ ATION 06/12/2025 [facility] DATE CREATED AUTHOR AUTHOR'S ORGANIZ ATION 07/24/2025 [facility] Source Comments (unrecognize d section and [...] BE BASED ON THE PRIMARY CLINICAL RECORDS. [employer] [facility]. provides no warranty or guarantee of the accuracy or completeness of information in this document.
[2025-07-25 15:26] LABS: Hematocrit 45.9 % (42.0-54.0); Hemoglobin 15.3 g/dL (14.0-18.0); Immature Granulocytes Abs Auto 0.00 10^3/uL (0.00-0.03); Immature Granulocytes Pct Auto 0.0 % (0.0-0.5); Lymphocytes Absolute Auto 0.7 10^3/uL (1.2-3.8); Mean Corpuscular HGB Conc 33.3 g/dL (29.9-35.2); Mean Corpuscular Hemoglobin 29.8 pg (25.9-34.0); Mean Corpuscular Volume 89.3 fL (80.0-94.0); Platelet Count 148 10^3/uL (150-450); Red Blood Count 5.14 10^6/uL (4.70-6.10); White Blood Count 4.6 10^3/uL (4.0-11.0)
[2025-07-25 15:37] LABS: Alanine Aminotransferase 33 U/L (16-63); Albumin Globulin Ratio 1.4; Albumin Level 4.2 g/dL (3.4-5.0); Alkaline Phosphatase 61 U/L (46-116); Anion Gap 12.6; Aspartate Amino Transferase 26 U/L (15-37); Blood Urea Nitrogen 18.0 mg/dL (7.0-18.0); Calcium 9.8 mg/dL (8.5-10.1); Carbon Dioxide 30.0 mmol/L (21.0-32.0); Chloride 100 mmol/L (98-107); Estimated GFR (African America >60 (>=60 mL/min/1.73m^2); Estimated GFR (Non-African Ame 57 (>=60 mL/min/1.73m^2); Globulin 3.1 g/dL; Glucose 90 mg/dL (74-106); Potassium 4.6 mmol/L (3.5-5.1); Sodium 138 mmol/L (136-145); Total Protein 7.3 g/dL (6.4-8.2)
== END 2025-07-25 14:54 | disposition home or self-care (01) ==
PROVIDERS: PCP Family Medicine; Visit Provider Family Medicine
DX: D72.819 Decreased white blood cell count, unspecified (principal); I10 Essential (primary) hypertension; R60.9 Edema, unspecified
CPT/HCPCS: 36415; 80053; 85025

== ENCOUNTER 2025-07-25 15:00 | Outpatient (OUT) | payer BC, MEDICARE, SELFPAY ==
--- OUTSIDE RECORDS SUMMARY | 2025-07-25 15:10 | XMS_ITS | CCD ---
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 Name Role Phone Ilda Peck Primary Care [...] Unavailable Ilda Peck MD Primary Care Provider [phone] ILDA PECK Primary Care Unavailable SHAWANDA HERNANDEZ Attending Unavailable Sandoval Knight Unavailable MD Ilda Peck Primary Care Provider [phone] MD Tracy Griffin Attending Provider [phone] Ilda Peck MD Primary Care Provider [phone] Unavailable Primary Care Provider Unavailabl Ilda Regan MD Primary Care Provider [phone] Shawanda MEJIA Attending Unavailable SILVERMANVianey Attending Unavailable SILVERMANVianey Attending Unavailable SILVERMANVianey Attending Unavailable NILShawanda Landa Attending Unavailable Shawanda MEJIA Attending Unavailable Ilda Peck MD Primary Care Provider [phone] Ilda Peck MD Primary Care Provider [phone] OSMIN ANTHONY Attending Unavaila ble HOY, ILDA [...] Unavailable Ilda Peck MD Primary Care Provider [phone] Scot Hutchison MD Attending Provider Moose PRIETO, [facility] Unavailable GEORGE LOZA Attending Unavailable BAKARI SCOTT Attending Unavailable Ilda Peck MD Primary Care Provider [phone] ROMÁN DAWSON Attending Unavailable SAGE GOODE Attending Unavailable Ilda Peck MD Primary Care Provider [phone] Scot Hutchison MD Attending Provider [phone] Sage Goode DO Attending Provider Foster JONES, Scot Pompa Admitting Unavailabl e Foster KAREN, Scot Pompa Attending Unavailabl Ilda Regan Primary Care Unavailable Foster JONES, Scot Pompa Admitting Unavailabl e Emanuel II, Scot Pompa Attending UnavailIlda Hernandez Primary Care Unavailable Foster JONES, Scot Pompa Admitting Unavailabl e Foster II, Scot Pompa Attending Unavailabl e Ilda Peck Primary Care Unavailable Foster JONES, Scot Pompa Attending Unavaileleanor e Foster II, Scot Pompa Admitting UnavailIlda Hernandez Primary Care Unavailable Allergies Allergy ClassificationReported Allergen(s)Allergy TypeDate of OnsetReaction(s) Facility (9 sources)Ciprofloxacin; Translations: [ciprofloxacin]Drug Tzsdxgq32-72-2450 Patient reported problems (finding)[facility] [place] (1 source)Ciprofloxacin; Translations: [Cipro][facility] ([facility] source)No Known Medication Allergies; Translations: [No Known Medication Allergies]Propensity to adverse reactions (disorder)[facility] Rep[facility] (1 source)CiprofloxacinDrug Zflfeiv44-84-5410GzisembdoPrem[facility] Medications Current Medications MedicationDrug Class(es)DatesSig (Normalized)Sig (Original)acetaminophen 500 mg oral tablet (10 sources)Start: 98-32-2699zqdw 2 tablets by mouth every eight hoursStart: 76-69-1649doof 2 tablets by mouth every four hours as neededacetaminophen (TYLENOL) 325 MG tablet Take 2 Tabs by mouth every 4 hours as needed. 30 Tab 30 06/27/2011 Activeamantadine hydrochloride 100 mg oral capsule (20 sources)Influenza A M2 Protein InhibitorStart: 85-22-0466mitc 1 mg by mouth twice dailyamantadine 100 mg Cap mg cap(s), Oral, BID, Refills(s) 0 Start Date: 05/07/19 Status: OrderedStart: 12-25-2017 End: 03-26-9513ikjt 1 capsule by mouth once dailyamantadine (SYMMETREL) 100 MG capsule TAKE 1 CAPSULE BY MOUTH EVERY DAY 90 Capsule 09/22/2023 Activetake 1 tablet by mouth every twenty-four hoursAmantadine HCl 100 MG 1 tablet Orally Once a day Active End: 02-04-6892HHIYOUEANL HCL ORAL Take by mouth. 0 04/26/2023 Discontinued (Course of therapy completed)Comment on above:Take 100 mg by mouth once daily. Take by mouth.apixaban 5 mg oral tablet (20 sources)Factor Xa InhibitorStart: 31-76-3418mmfc 1 tablet by mouth twice daily End: 26-50-8749cxiw 1 tablet by mouth in the morningapixaban (Eliquis) 2.5 MG tablet Take 2.5 mg by mouth in the morning and 2.5 mg before bedtime. 06/12/2024 Discontinued (Duplicate order)ascorbic acid 1000 mg oral tablet (20 sources)Vitamin CStart: 86-60-4049hqic 1 tablet by mouth once daily in the morningStart: 15-40-8321Erwoziv C Daily, Refills(s) 0 Start Date: 05/07/19 Status: OrderedStart: 84-78-0771Pvfwdjxf Acid (VITAMIN C) 100 mg tablet Daily, Refills(s) 0 0 05/07/2019 Activetake 1 tablet by mouth once dailyascorbic acid (Vitamin C) 1000 MG ER tablet Take 1,000 mg by mouth Daily ActiveAscorbic Acid (Vitamin C) 100 MG CHEW Vitamin C Active End: 28-72-0138togs 1 tablet by mouth once dailyascorbic acid, vitamin C, (ascorbic acid with steph hips) 500 mg tablet Take 500 mg by mouth daily. 0 02/18/2025 Discontinued (Therapy completed) End: 79-97-3483WOHXKHXU ACID (VITAMIN C ORAL) Indications: Leukopenia, unspecified type , Thrombocytopenia (HCC) ,Hypothyroidism, unspecified type Take 1,000 mg by mouth. 0 04/26/2023 Discontinued (Course of therapy completed) Comment on above: Daily, Refills(s) 0Take 1,000 mg by mouth.carvedilol 6.25 mg oral tablet (4 sources)alpha-Adrenergic Nalini, beta-Adrenergic BlockerStart: 08-03-2023 End: 12-82-9532oaih 1 tablet by mouth in the morning, [...] 500 mg oral capsule (4 sources)Cephalosporin AntibacterialStart: 33-88-9696vxtp 1 capsule by mouth every twelve hourscholecalciferol 0.05 mg oral tablet (13 sources)Vitamin DStart: 48-74-5751lvai 1 tablet by mouth once daily in the morningtake 1 tablet by mouth once dailycholecalciferol (Vitamin D-3) 125 MCG (5000 UT) tablet Take 5,000 Units by mouth Daily Activechondroitin sulfates 400 mg / glucosamine hydrochloride 500 mg oral tablet (5 sources) End: 41-87-9111ztup 3 tablets by mouth once dailyglucosamine-chondroitin 500-400 mg tablet Take 3 tablets by mouth daily. 02/18/2025 Discontinued (Therapy completed) End: 56-96-6085bagq 750 mg by mouth once dailyGLUCOSAMINE HCL/CHONDROITIN ARANDA (GLUCOSAMINE-CHONDROITIN) 750-600 mg chew Take 750 mg by mouth once daily. 0 04/26/2023 Discontinued (Course of therapy completed)Comment on above:Take 750 mg by mouth once daily.Cpap (Continuous Positive Airway Pressure) unit (4 sources)Start: 03-90-7879Qiht (Continuous Positive Airway Pressure) unit Active 0 .Route 1 0 July 14, 2025 12:00am new mask and CPAP supplies x 1 year. dx NANCY HartDepo-Testosterone 200 mg/mL intramuscular solution (3 sources)Start: 16-84-1738Jsfs-Testosterone 200 mg/mL intramuscular solution 300 mg, IntraMuscular, q4wk, # 10 mL, Refills(s)1, Pharmacy: [facility]/pharmacy #[id number], 167, cm, 10/05/21 11:32:00 EST, Height/Length Dosing, 83, kg, 10/05/21 11:32:00 EST, Weight Dosing Start Date: 01/04/22 Status: Ordereddexpanthenol 2 mg/ml / niacinamide 100 mg/ml / riboflavin 2 mg/ml / thiamine 100 mg/ml / vitamin b62 mg/ml injectable solution (12 sources)Start: 94-29-0848Kgmwnnz B Complex injectable solution Refill(s) 0 Start Date: 05/07/19 Status: OrderedComment on above: Refill(s) 0dilTIAZem hydrochloride 120 mg oral tablet (4 sources)Calcium Channel Nalini End: 44-08-5771ifkr 1 tablet by mouth once dailydiltiazem (CARDIZEM) 120 MG tablet Take 120 mg by mouth daily. 02/18/2025 Discontinued (Therapy completed) docosahexaenoic acid 120 mg / eicosapentaenoic acid 180 mg oral capsule (6 sources)take 1 capsule by mouth once dailyOmega-3 Fatty Acids (FISH OIL) 1000 MG CAPS Take 1 Capsule by mouth daily. ActiveDOCOSAHEXANOIC ACID/EPA (FISH OIL ORAL) (4 sources) End: 53-46-7898paif 1200 mg by mouth once dailyDOCOSAHEXANOIC ACID/EPA (FISH OIL ORAL) Take 1,200 mg by mouth daily. 02/18/2025 Discontinued (Therapy completed) take 1200 mg by mouth once dailyDOCOSAHEXANOIC ACID/EPA (FISH OIL ORAL) Take 1,200 mg by mouth daily. Activetake 1200 mg by mouth once dailyDOCOSAHEXANOIC ACID/EPA (FISH OIL ORAL) Take 1,200 mg by mouth daily. 0 Activedocusate sodium 50 mg / sennosides, chcf 8.6 mg oral tablet (4 sources)Start: 65-09-9307pggd 2 tablets by mouth once dailyFish Oils (9 sources)Start: 63-20-1679Soqu Oil Oral, Refill(s) 0 Start Date: 05/07/19 [...] mg oral tablet (20 sources)l-ThyroxineStart: 06-11-2025 End: 43-08-3204itjo 1 tablet by mouth once daily in the morningStart: 05-19-2025 End: 93-60-3706xqdu 1 tablet by mouth once daily before mealtimelevothyroxine (Synthroid, Levoxyl) 100 MCG tablet Indications: Sarah's disease TAKE 1 TABLET BYMOUTH ONCE EVERY MORNING BEFORE MEALS 90 tablet 3 05/19/2025 06/11/2025 Discontinued (Dose adjustment)Start: 40-57-5828fnmz 1 tablet by mouth before mealtimelevothyroxine (Synthroid, Levoxyl) 100 MCG tablet Indications: Sarah's disease (CMS/HCC) Take 1tablet (100 mcg) by mouth in the morning. Take before meals. 90 tablet 3 06/12/2024 ActiveStart: 01-99-5397akdv 1 tablet by mouth before mealtimelevothyroxine (Synthroid, Levoxyl) 100 MCG tablet Indications: Sarah's disease (CMS/HCC) Take 1tablet (100 mcg) by mouth in the morning. Take before meals. 90 tablet 3 06/12/2024 ActiveStart: 06-06-2024 End: 62-26-7249cunj 1 tablet by mouth once dailyLevothyroxine 100 mcg tablet Discontinued 100 MCG PO Daily June 06, 2024 12:00am July 23, 2025 9:08amStart: 91-05-4894ecrk 1 tablet by mouth once dailylevothyroxine 150 mcg (0.15 mg) Tab 150 mcg = 1 tab(s), Oral, Daily, Refills(s) 0 Start Date: 05/07/19 Status: OrderedStart: 07-92-8661vlxr 1 tablet by mouth once dailylevothyroxine (SYNTHROID) 150 MCG tablet Take 1 Tablet by mouth daily. 30 Tablet 3 02/08/2017 ActiveStart: 57-71-7690zlbgobrintipx (SYNTHROID, LEVOTHROID) 175 MCG tablet Take 150 mcg by mouth once daily. 11 08/25/2016 ActiveComment on above:Take 150 mcg by mouth once daily. liothyronine sodium 0.025 mg oral tablet (20 sources)l-TriiodothyronineStart: 47-49-7045xzjr 12.5 ug by mouth once daily Liothyronine Active 12.5 MCG PO Daily June 06, 2024 12:00amStart: 42-49-1384cpva 1 tablet by mouth once dailyliothyronine 25 mcg Tab 25 mcg = 1 tab(s), Oral, Daily, Refills(s) 0 Start Date: 05/07/19 Status: OrderedStart: 02-08-2017 End: 50-10-1577elrm 1 tablet by mouth once daily in the morning End: 95-78-6574wejk 0.5 tablet by mouth once dailyliothyronine (Cytomel) 25 MCG tablet Take 25 mcg by mouth Daily Take 0.5 tabs po qd 06/11/2025 Discontinued (Reorder)Comment on above:Take 25 mcg by mouth once daily.lisinopril 10 mg oral tablet (7 sources)Angiotensin Converting Enzyme InhibitorStart: 54-91-6220twpb 1 tablet by mouth once daily in [...] daily.memantine hydrochloride 5 mg oral tablet (6 sources)H-cqbgpu-O-aspartate Receptor AntagonistStart: 07-20-2022 End: 72-58-6701ardy 1 tablet by mouth once dailymemantine (NAMENDA) 5 MG tablet Take 1 Tablet by mouth daily. 30 Tablet 3 07/20/2022 ActiveoxyCODONE hydrochloride 5 mg oral tablet (4 sources)Opioid AgonistStart: 59-30-0598jenc 1 tablet by mouth every four hours as needed for painpantoprazole 20 mg delayed release oral tablet (4 sources)Proton Pump InhibitorStart: 91-37-7470uvwy 1 tablet by mouth once dailypolyethylene glycol 3350 61644 mg powder for oral solution (4 sources)Osmotic LaxativeStart: 73-05-9143mcykyzEZCN 10 mg oral tablet (4 sources)Start: 48-14-9056zkio 1 tablet by mouth once dailytamsulosin hydrochloride 0.4 mg oral capsule (20 sources)alpha-Adrenergic BlockerStart: 11-24-2021 End: 55-33-7189lekr 1 capsule by mouth twice dailyFlomax 0.4 mg Cap 0.4 mg = 1 cap(s), Oral, BID, X 90 day(s), # 180 cap(s), Refills(s) 3, Pharmacy: [facility]/pharmacy #[id number], 167, cm, 10/05/21 11:32:00 EST, Height/Length Dosing, 83, kg, 10/05/21 11:32:00 EST, Weight Dosing Start Date: 11/24/21 Stop Date: 11/19/22 Status: OrderedStart: 08-63-8626mlbn 1 capsule by mouth once daily in the morningtake 1 capsule by mouth every twenty-four hours in the morningtamsulosin (FLOMAX) 0.4 mg capsule,extended release 24hr Take 1 capsule (0.4 mg total) by mouth in the morning. ActiveComment on above:0.4 mg once daily. testosterone cypionate 200 mg/ml injectable solution (18 sources)AndrogenStart: 56-74-0264Vxgv-Testosterone 200 mg/mL intramuscular solution 300 mg, IntraMuscular, q4wk, # 10 mL, Refills(s)1, Pharmacy: [facility]/pharmacy #[id number], 170, cm, 12/02/22 8:17:00 EST, Height/Length Dosing, 83.2, kg, 12/02/22 8:17:00 EST, Weight Dosing Start Date: 05/03/23 Status: OrderedStart: 16-73-2223Hlny-Testosterone 200 mg/mL intramuscular solution 300 mg, IntraMuscular, q4wk, # 10 mL, Refills(s)1, Pharmacy: [facility]/pharmacy #[id number], 167, cm, 10/05/21 11:32:00 EST, Height/Length Dosing, 83, kg, 05/10/22 10:08:00 EDT, Weight Dosing Start Date: 09/07/22 Status: OrderedStart: 38-74-5176Pbkk- Testosterone 200 mg/mL intramuscular solution 300 mg, IntraMuscular, q4wk, # 10 mL, Refills(s)1, Pharmacy: [facility]/pharmacy #[id number], 167, cm, 10/05/21 11:32:00 EST, Height/Length Dosing, 83, kg, 10/05/21 11:32:00 EST, Weight Dosing Start Date: 01/04/22 Status: OrderedStart: 84-27-3304xiozgiarmuls cypionate (DEPO- TESTOSTERONE) 200 MG/ML injection Inject 200 mg into the muscle once amonth. 12/10/2018 ActiveTestosterone Cypionate 200 MG/ML 1.5 mL Intramuscular EVERY 4 WEEKS ActiveComment on above:INJECT 1ML INTRAMUSCULARLY EVERY MONTHtraMADol hydrochloride 50 mg oral tablet (4 sources)Opioid AgonistStart: 12-01-8638aybu 1 tablet by mouth every six hours as needed for painVitamin B Complex injectable solution (3 sources)Start: 86-10-0154Oqiroal B Complex injectable solution Refill(s) 0 Start Date: 05/07/19 Status: OrderedVitamin D (17 sources)Start: 86-69-0187Ngqkmlo D International_Unit, Oral, qWeek, Refills(s) 0 Start Date: 08/31/21 Status: Ordered Completed/Discontinued Medications MedicationDrug Class(es)DatesSig (Normalized)Sig (Original)aspirin 325 mg delayed release oral tablet (5 sources)Platelet Aggregation Inhibitor, Nonsteroidal Anti-inflammatory Drug Start: 01-09-2018 End: 85-43-3816ocpf 1 tablet by mouth once dailyaspirin, enteric coated (ASPIRIN, ENTERIC COATED) 325 mg EC tablet Take 325 mg by mouth once daily.2 01/09/2018 04/26/2023 Discontinued (Course of therapy completed) End: 21-93-7030cgbc 1 tablet by mouth in the morningaspirin 325 mg tablet Take 1 tablet (325 mg total) by mouth in the morning. 02/18/2025 Discontinued(Therapy completed)Comment on above:Take 325 mg by mouth once daily.atomoxetine 60 mg oral capsule (1 source)Norepinephrine Reuptake Inhibitor End: 00-06-2296vzzc 1 capsule by mouth once dailyatomoxetine (STRATTERA) [...] doseBupivacaine (4 sources)Amide Local AnestheticStart: 02-18-2025 End: 56-02-325604 mg, intra-articular, One-Time Injection, Starting on e 02/18/25 at 1056, For 1 doseStart: 10-08-2024 End: 28-90-109875 mg, intra-articular, One-Time Injection, Starting on Mon10/08/24 at 1440, For 1 doseStart: 06-11-2024 End: 36-48-734421 mg, intra-articular, One-Time Injection, Starting on Mon06/11/24 at 1129, For 1 doseStart: 11-02-2023 End: 70-31-6002ONIqrhzmlmc HCl (MARCAINE) 0.5 % (5 mg/mL) injection 30 mg Creatine (1 source) End: 88-19-1316MGRNFGEW MONOHYDRATE (CREATINE ORAL) Indications: Leukopenia, unspecified type [...] at 1129, For 1 doseStart: 11-02-2023 End: 55-47-0855qgdDPWUOzkapy (DECADRON) injection 8 mgfolic acid 1 mg oral tablet (1 source)Start: 02-05-2018 End: 83-63-4459ngnc 1 tablet by mouth once dailyfolic acid 1 mg tablet TAKE ONE TABLET BY MOUTH DAILY 30 tablet 5 02/05/2018 04/26/2023 Discontinued (Course of therapy completed)Comment on above:TAKE ONE TABLET BY MOUTH DAILYhydrALAZINE hydrochloride 25 mg oral tablet (20 sources)Arteriolar VasodilatorStart: 05-07-2024 End: 51-34-2579isbf 1 tablet by mouth three times dailyHydralazine [...] oil/D3 (VITAMIN-D + OMEGA-3 ORAL) (1 source)Start: 14-71-8547qdbrw-3s/dha/epa/fish oil/D3 (VITAMIN-D + OMEGA-3 ORAL) Take by mouth. 0 08/31/2021 ActiveComment on above:Take by mouth. Problems Active Problems Problem ClassificationProblemDateDocumented DateEpisodic/ChronicAcute cerebrovascular disease (1 source)Cerebrovascular accident; Translations: [Cerebral infarction, unspecified]51-41-6803HdsumskXnccnxxayo disorders (5 sources)Specific academic or work inhibition; Translations: [Specific academic or work inhibition as adjustment reaction]Onset: ChronicAsthma (1 source)Asthmatic bronchitis; Translations: [Unspecified asthma, uncomplicated]28-46-3069DkwsxhvFtcqclh dysrhythmias (20 sources)Atrial fibrillation; Translations: [Unspecified atrial fibrillation] Onset: 381505-33-0862LjduduiGnltqje kidney disease (10 sources)Chronic kidney disease stage 3; Translations: [Chronic kidney disease, stage III (moderate)]67-90-1900MvzgjomDhheavuwhtd and hemorrhagic disorders (14 sources)Platelet count below reference range; Translations: [Thrombocytopenia, unspecified]Onset: 652454-79-3193SptnzrgLyyvavrcps associated with dizziness or vertigo (1 source)Vertigo; Translations: [Dizziness and giddiness]35-03-7068Uykedfjv Congestive heart failure; nonhypertensive (3 sources)Acute combined systolic and diastolic heart fdddamr56-59-2406Wwwmvhx Diseases of white blood cells (7 sources)Neutropenia, unspecified; Translations: [Neutropenia]Onset: 03-11-3641GofgfzqVpvhdudfn usually diagnosed in infancy, childhood, or adolescence (5 sources)Attention deficit hyperactivity disorder, predominantly inattentive type; Translations: [Other specified behavioral and emotional disorders with onset usually occurring in childhood and adolescence]Onset: ChronicEssential hypertension (5 sources)Hypertensive disorder; Translations: [Essential (primary) hypertension]Onset: 974748-67-0408BncrqyxTwinplzamkkky symptoms and ill- defined conditions (5 sources)Urge incontinence; Translations: [Urge incontinence of urine]Onset: 21-81-3705PfnatgbRuulsdowoqmwz symptoms and ill-defined conditions (20 sources)Nocturia; Translations: [Poor stream of urine]03-99-8962Ddwjqmbz Hyperplasia of prostate (20 sources)Benign prostatic hypertrophy with outflow obstruction; Translations: [Benign prostatic hyperplasia with lower urinary tract symptoms]Onset: 773871-83-6782RgrkjunAuxdekgzovln with complications and secondary hypertension (15 sources)Chronic kidney disease due to hypertension; Translations: [Hypertensive chronic kidney disease withstage 1 through stage 4 chronic kidney disease, or unspecified chronic kidney disease]Onset: 71-11-4936Mhmznmt Miscellaneous mental health disorders (1 source)Unspecified persistent mental disorders due to conditions classified elsewhereOnset: 790445-29-7570TfmbbvlXaip wounds of extremities (1 source)Puncture wound of thumb of left hand; Translations: [Puncture wound with foreign body of left thumbwithout damage to nail, initial encounter]Onset: 73-02-1012FfftpfssPdvmcwbudijfnz (20 sources)Bilateral arthritis of knees; Translations: [Bilateral primary osteoarthritis of knee]Onset: 631300-19-2024AklfxclQuljmflpieru (7 sources)Osteoporosis; Translations: [Age-related osteoporosis without current pathological fracture]60-01-1880MyulryqZotem aftercare (4 sources)Long-term current use of 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; 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]Onset: 10-42-2045LyxrjzdbUrifr aftercare (7 sources)Long-term current use of drug therapy; Translations: [Other nursing home (current) drug therapy]63-57-8981XsiyliozOtozs and ill-defined cerebrovascular disease (3 sources)Cerebrovascular mnfeaio39-14-4819FwurgydVxqyl circulatory disease (1 source)Orthostatic hypotension; Translations: [Orthostatic hypotension] 88-46-8991BjxfgbmeHgjfv connective tissue disease (10 sources)History of total knee arthroplasty; Translations: [Presence of left artificial knee joint]Onset: 033767-92-0041CgmkduzOzxad connective tissue disease (1 source)Knee joint replacementOnset: 405077-75-3473SqymuljMikqx connective tissue disease (1 source)Decrease in height; Translations: [Loss of height]76-28-5726Myecbytd Other diseases of kidney and ureters (1 [...] (12 sources)Testicular hypofunction; Translations: [Testicular hypofunction] Onset: 79-65-5657JqvhkjoRxetz endocrine disorders (17 sources)Male xqwgorgaugsu59-31-5662SkibovgQnxnb endocrine disorders (5 sources)Testicular hypofunction; Translations: [TESTICULAR HYPOFUNCTION] Onset: 06-16-6400XzbfprtNxxyw endocrine disorders (4 sources)Testicular hyperfunction; Translations: [TESTICULAR HYPERFUNCTION] Onset: 57-75-7781EgwxjeoOvtjo injuries and conditions due to external causes (17 sources)H/O: head bilzof37-43-9874ZorbqnvzDvypy lower respiratory disease (10 sources)Snoring; Translations: [Snoring]37-73-4806ChfjinfgLnloo male genital disorders (17 sources)Secondary erectile bhmyigbwogt82-37-0781ZbcthofDweyz male genital disorders (8 sources)Male erectile dysfunction, unspecified; Translations: [Erectile dysfunction]Onset: 07-63-4795AsgkbzzBrwxo nervous system disorders (5 sources)Disturbance of attention; Translations: [Attention and concentration deficit]Onset: 612801-62-2990AyxhuglFeglm nervous system disorders (5 sources)Impaired executive functioning; Translations: [Frontal lobe and executive function deficit]Onset: 737824-56-0361MurwydgAefxv nervous system disorders (5 sources)Cognitive deficit in communication skills; Translations: [Cognitive communication deficit]Onset: 546938-99-7204YrthinoIylic nervous system disorders (1 source)Aphasia; Translations: [Aphasia]18-37-8300FbsdvkyHgkpq nervous system disorders (1 source)Attention or concentration deficitOnset: 089982-60-3276Ievbxok Other nervous system disorders (1 source)Frontal lobe and executive function deficitOnset: ChronicOther nervous system disorders (1 source)Cognitive communication deficitOnset: 145636-05-4599KgvdkvmGmmzk nervous system disorders (1 source)Other symptoms and signs involving cognitive functions and awareness; Translations: [Other signs and symptoms involving cognition]EpisodicOther nervous system disorders (1 source)Dysarthria; Translations: [Dysarthria and anarthria]85-72-4628Ihghdlbc Other non-traumatic joint disorders (1 source)Arthropathy, unspecified, lower legOnset: 009804-87-8086Vxnoelw Other non-traumatic joint disorders (1 source)Pain in right knee; Translations: [Pain in right knee]Onset: 46-31-4006BdfvneilTrgop nutritional; endocrine; and metabolic disorders (4 sources)Overweight in adulthood with body mass index of 25 or more but less than 30; Translations: [Body mass index (BMI) 28.0-28.9, adult]EpisodicOther nutritional; endocrine; and metabolic disorders (3 sources)Mletduvuwc50-50-8609ZiqzzwgsJhfid screening for suspected conditions (not mental disorders or infectious disease) (2 sources)Encounter for screening for malignant neoplasm of prostate; Translations: [Screening for malignant neoplasm of colon done]Onset: 03-09-2022 EpisodicResidual codes; unclassified (9 sources)Sleep apnea; Translations: [Sleep apnea, unspecified]Onset: 871267-06-0167YwpusrjMwthtzvf codes; unclassified (20 sources)Obstructive sleep apnea syndrome; Translations: [Obstructive sleep apnea (adult) (pediatric)]Onset: 397234-36-1291OxjpezoJxigcgyk codes; unclassified (2 sources)Obstructive sleep apnea (adult) (pediatric); Translations: [Obstructive sleep apnea (adult)(pediatric)]ChronicResidual codes; unclassified (16 sources)Hypersomnia; Translations: [Hypersomnia, unspecified]Onset: 903004-69-9475DdeestnWyvsuxfg codes; unclassified (3 sources)Periodic limb movement disorder; Translations: [Periodic limb movement disorder]Onset: 264973-24-7945KstuqzkFzjeckdd codes; unclassified (1 source)Unspecified sleep apneaOnset: 243713-15-0289TsmgnhsTmjdrqrd codes; unclassified (3 sources)Periodic leg movements of sleep ; Translations: [Periodic limb movement disorder]Onset: 297881-53-3941WpuxitaFkfxfmlz codes; unclassified (2 sources)Sleep deprivation; Translations: [Sleep deprivation]07-17-2024 EpisodicSpondylosis; intervertebral disc disorders; other back problems (15 sources)Cervical spondylosis; Translations: [Other spondylosis with myelopathy, cervical region]Onset: 657729-63-9941TonmcvzRtqzhxrcrgm; intervertebral disc disorders; other back problems (20 sources)Cervical spine ankylosis; Translations: [Fusion of spine, cervical region]Onset: 770073-28-1768VkudaiwqEvemesq disorders (20 sources)Hypothyroidism; Translations: [Hypothyroidism, unspecified]Onset: 06-28-2011 Resolved: 880652-39-4085NisnokaIqgjcgpzrxat (3 sources)Patient encounter afuqnq33-21-5259Kspqqummbjtw (2 sources)Puncture wound of left thumb with foreign aatd28-14-7202Fkccallcsjri (2 sources)Other persistent atrial fibrillation; Translations: [Other persistent atrial fibrillation]Onset: 11-27-2023 Past or Other Problems Problem ClassificationProblemDateDocumented DateEpisodic/ChronicAllergic reactions (10 sources)Eczema; Translations: [Dermatitis, unspecified]Onset: 05-29-2019 53-73-9755HdslojpyTxjikst kidney disease (1 source)Chronic kidney diseaseDeficiency and other anemia (6 sources)Anemia; Translations: [Anemia, unspecified]Onset: 12-06-2017 47-47-6852EctteioiToxucrlzsn and other anemia (1 source)Anemia, unspecifiedOnset: 179044-54-4386XfdcurniRoueeocterhs injury (7 sources)Traumatic brain injury; Translations: [Unspecified intracranial injury with loss of consciousness of unspecified duration, initial encounter] Onset: 980668-61-2519BlaeovsiYbehegzcylt deficiencies (10 sources)Cobalamin deficiency; Translations: [Deficiency of other specified B group vitamins]Onset: 123233-63-5318DuedaqgaAypmt aftercare (1 source)Care involving other physical therapyOnset: EpisodicOther aftercare (1 source)Encounter for occupational therapyOnset: 950757-23-5006Xfldfgus Other aftercare (1 source)Encounter for vocational therapyOnset: 232669-39-9325Vxwqwvlv Other circulatory disease (2 sources)Personal history of other diseases of the circulatory system; Translations: [Personal history of other diseases of the circulatory system] Onset: 23-10-1827JkxtsqfgZoavp connective tissue disease (5 sources)Muscle weakness; Translations: [Muscle weakness (generalized)]Onset: 049287-19-3151RpahpnwiNaiwj connective tissue disease (1 source)Impingement syndrome of left shoulder; Translations: [IMPINGEMENT SYNDROME LEFT SHOULDER]Onset: 65-60-2141UkszksiaPehhf connective tissue disease (1 source)Impingement syndrome of right shoulder; Translations: [IMPINGEMENT SYNDROME RIGHT SHOULDER]Onset: 92-64-0448BexvpawkGzqyu connective tissue disease (1 source)Muscle weakness (generalized)Onset: 636027-36-1984WnzymnroTelku nervous system disorders (5 sources)Incoordination; Translations: [Unspecified lack of coordination] Onset: 778335-10-6111KqhkojidRgnxw nervous system disorders (5 sources)Impaired cognition; Translations: [Other symptoms and signs involving cognitive functions and awareness]Onset: 395539-28-6805VizcduuoLscwi nervous system disorders (1 source)Lack of coordinationOnset: 714989-66-7062UbjnrnrtVauzx skin disorders (1 source)Vitiligo; Translations: [Vitiligo]Onset: 282066-77-2947Gzzdnqqf Rehabilitation care; fitting of prostheses; and adjustment of devices (15 sources)Patient encounter status; Translations: [Other physical therapy] Onset: 978365-84-3224DtkuxejcXxpeptvh codes; unclassified (10 sources)Amnesia; Translations: [Other amnesia]Onset: EpisodicResidual codes; unclassified (2 sources)Memory lossOnset: 086561-46-3753JkciwvxjNxrovijb codes; unclassified (2 sources)Other specified postprocedural states; Translations: [Other specified postprocedural states]Onset: 28-97-6632SirbifzjQrkpzjlixuu injury; contusion (6 sources)Traumatic hematoma; Translations: [Contusion of unspecified part of head, initial encounter]Onset: 736742-41-7187ZxznmuxeLbiio infection (7 sources)Verruca vulgaris; Translations: [Viral wart, unspecified]Onset: 035838-31-1100Ciumgfgw Results Test NameValueInterpretationReference RangeFacilityBilirubin Test strip Ql (U) Ordered By: Scot Hutchison on 34-40-7063Wumjfqxnx Ql (U)NegativeNegative [facility] SouthFructosamineon 98-25-1999Ngbdxshmxspo109 umol/L Normal0-285The [facility] Physician GroupComment on above:Result Comment: Published reference interval for apparently healthy subjects between age 20 and 60 is 205 - 285 umol/L and in a poorly controlled diabetic population is 228 - 563 umol/L with a mean of 396 umol/L. Performed at: [address] [id number] Assistant Brand Manager: Aleks Ferreira PhD, Phone: [phone] PERFORMED BY: [place] [id number] PATHOLOGIST MECHANIC ASSISTANT ABBY THORNTON M.D.Performed By: #### FRUC #### [facility] ,Fructosamine [Moles/volume] in Serum or PlasmaOrdered By: Scot Hutchison on 93-30-0138Bpgwvqnwjdtr [Moles/Vol]209 umol/L0-285[facility] SouthComment on above:Published reference interval for apparently healthysubjects between age 20 and 60 is 205 - 285 umol/L and in apoorly controlled diabetic population is 228 - 563 umol/Lwith a mean of 396 umol/L.Performed at: [facility] [address] [id number] Director: Aleks Ferreira PhD, Phone: [phone] [Mass/volume] in Urine by Test stripOrdered By: Scot Hutchison on 07-23-2025 Glucose Test strip (U) [Mass/Vol]Normal mg/dLNormalPremier Health Miami Valley Hospital SouthHemoglobin Test strip Ql (U)Ordered By: Scot Hutchison on 07-23-2025 Hemoglobin Ql (U)NegativeNegativePremier Health Miami Valley Hospital SouthNitrite Test strip Ql (U)Ordered By: Scot Hutchison on 59-12-6744Krulzkk Ql (U)Negative NegativePremier Health Miami Valley Hospital SouthProtein Test strip (U) [Mass/Vol] Ordered By: Scot Hutchison on 45-60-9219Hozbdcu (U) [Mass/Vol]NegativeNegative [facility] Medical Centerpecific gravity Test strip (U) [Rel density] Ordered By: Scot Hutchison on 60-57-8585Pecxgzoc gravity (U) [Rel density]1.007 1.001-1.030[facility] SouthUrinalysisOrdered By: Scot Hutchison on 94-95-3701Xxmanisuzo (U)ClearCleSt. Mary's Medical [facility] Comment on above:Order Comment: Name Collection Type:: Clean-Voided Midstream Performed By: #### UA #### [address] [address] USAColor (U)ColorlessYellowPremier Health Miami Valley Hospital South Comment on above:Order Comment: Name Collection Type:: Clean-Voided Midstream Performed By: #### UA #### [facility] [address] [place] [address] USAKetones Ql (U)NegativeNegativePremier Health Miami Valley Hospital SouthComment on above:Order Comment: Name Collection Type:: Clean-Voided MidstreamPerformed By: #### UA #### [facility] [address] [place], [place] [address] USALeukocyte esterase Test strip Ql (U)NegativeNegAdena Fayette Medical CenterComment on above:Order Comment: Name Collection Type:: Clean-Voided MidstreamPerformed By: #### UA #### [place] [address] USApH (U)6.0 [pH]5.0-9.0[facility] Comment on above:Order Comment: Name Collection Type:: Clean-Voided Midstream Performed By: #### UA #### [facility] [address] [place] [address] USAUrinalysison 25-10-0387Zdqngprfy,UrineNegativeNormal NegativeAscension Sacred Heart Hospital Emerald Coast Physician GroupComment on above:Order Comment: Name Collection Type:: Clean-Voided MidstreamPerformed By: #### UA #### [facility] [address] [place], [place] [address] USAGlucose Ql (U)NormalNormalNormalThe [facility] Physician GroupComment on above:Order Comment: Name Collection Type:: Clean-Voided MidstreamPerformed By: #### UA #### [facility] [address] [place], [place] [address] USANitrite,UrineNegativeNormalNegativeThe [facility] Physician GroupComment on above:Order Comment: Name Collection Type:: Clean-Voided MidstreamPerformed By: #### UA #### [facility] [address] [place] [address] USAOccult Blood,UrineNegativeNormalNegativeThe [facility] Physician GroupComment on above:Order Comment: Name Collection Type:: Clean- Voided MidstreamResult Comment: PERFORMED BY: [place] [address] PATHOLOGIST MECHANIC ASSISTANT ABBY THORNTON M.D.Performed By: #### UA #### [facility] [address] [place], [place] [address] USAProtein,UrineNegativeNormalNegativeThe [facility] Physician GroupComment on above:Order Comment: Name Collection Type:: Clean-Voided MidstreamPerformed By: #### UA #### [place] [address] USASpecificy [place],Urine1.214Sluhgt4.001-1.030The [facility] Physician GroupComment on above:Order Comment: Name Collection Type:: Clean- Voided MidstreamPerformed By: #### UA #### [place] [address] USAUrobilinogen,UrineNormalNormalNormalThe [facility] Physician GroupComment on above:Order Comment: Name Collection Type:: Clean- Voided MidstreamPerformed By: #### UA #### [place] [id number] USAUrobilinogen Test strip (U) [Mass/Vol]Ordered By: Scot Hutchison on 53-71-6264Kpuaakkegutx (U) [Mass/Vol]Normal mg/dLNormOhioHealth Doctors HospitalX-ray reportOrdered By: Waqas Jarrell on 44-98-8747Tnuwa reportSELECT MEDICAL [facility] [address] [place] [address] XRay Report Signed Patient: Vianey Lacey MR#: [id number] : 1960 Acct:[id number] Age/Sex: 65 / M ADM Date: 5 Loc: [facility] Room: Type: [facility] Attending Dr: Scot Hutchison II, MD Copies to: Scot Hutchison MD~ Ordering Provider: Scot Hutchison MD Date of Service: 07/23/25 XR/XR femur RT 2V*: M17.11 - Unilateral primary osteoarthritis, right knee ([id number]) XR/XR tibia fibula RT 2V*: M17.11 - [...] Jarrell M.D. 07/23/2025 4:02 PM Dictation Location: [place] [address] Transcribed By: [facility] 07/23/25 1602 Dictated By: Waqas Jarrell DO 07/23/25 1559 Signed By: 07/23/25 1602 [facility] SouthXR tibia fibula RT 2V*on 03-57-8202SS tibia fibula RT 2V*[facility] [address] [place] [address] XRay Report Signed Patient: Vianey Lacey MR#: [id number] : 1960 Acct:[id number] Age/Sex: 65 / M ADM Date: 07/23/25 Loc: [facility] Room: Type: [facility] Attending Dr: Scot Hutchison II, MD Copies to: Scot Hutchison MD Ordering Provider: Scot Hutchison MD Date of Service: 07/23/25 XR/XR femur RT 2V*: M17.11 - Unilateral primary osteoarthritis, right knee ([id number]) XR/XR tibia fibula RT 2V*: M17.11 - [...] Jarrell M.D. 07/23/2025 4:02 PM Dictation Location: [facility]23 Transcribed By: [facility] 07/23/25 1602 Dictated By: Waqas Jarrell DO 07/23/25 1559 Signed By: 07/23/25 1602[facility] Physician Nrrkq71ck 21-11-199981Eghutzvgx stress test result from 05/29/2025: George Loza [...] note faxed to orthopedic office performing his surgery.NormalUnMercy Health Anderson HospitalOrders Onlyon 32-58-0445Nphipr [id number] Vianey Lacey 1960 M Date Provider Department [place] 06/02/2025 [id number], HISTORICAL [facility] Family History Problem Relation Age of Onset Cancer Mother Diabetes Mother Coronary artery disease Father Stroke Father Cancer Father Family Status - Relation Status Age at Mother Father Sister Brother DeceasedNormalUniversity Pomerene HospitalGlucose mean value [Mass/volume] in Blood Estimated from glycated hemoglobinOrdered By: Scot Hutchison on 90-95-7937Sysqsnc glucose Estimated from glycated hemoglobin (Bld) [Mass/Vol]100 mg/dLPremier Health Miami Valley Hospital SouthHemoglobin A1c percentage Ordered By: Scot Hutchison on 11-01-6233KbG7k (Bld) [Mass fraction]5.1 %4.5-6.2 [facility] SouthComment on above:ADA RECOMMENDED LIMIT 4.0 - 6.0ADA THERAPEUTIC TARGET < 7.0ACTION SUGGESTED> 7.0Laboratory - Chemistry and Chemistry - challengeOrdered By: Scot Smallle on 84-83-5391Hnzzkaa [Mass/Vol] 4.2 g/dL3.4-5.0[facility] SouthNo Panel InformationOrdered By: Scot [place]le on 947478-Nvfbqfl Vitamin D Total78.3 ng/mLPremier Health Miami Valley Hospital SouthComment on above:<20 ng/mL Vit D yqydsvjui76-<30 ng/mL Vit D ymumizghvxlj02-986 ng/mL Vit D sufficient>100 ng/mL Potential Toxicity Miscellaneous TestCOMMENT.[facility] SouthComment on above:Test Ordered: [id number] Nicotine and Metabolite, QuantNicotine <1.0 ng/mL Reference Range: .Thistest was developed and its performance characteristicsdetermined by [employer]. It has not been cleared orapproved by the Food and Drug Administration.Nicotine levels greater than 2.0 are consistent with theuse of tobacco or tobacco cessation products.Cotinine <1.0 ng/mL Reference Range: .This test was developed and its performance characteristicsdetermined by [employer]. It has not been cleared orapproved by the Food and Drug Administration.Cotinine levels greater than 20.0 are consistent withtheuse of tobacco or tobacco cessation products.Performed at: [facility] [address] [id number] Director: Nicole Calles MD, Phone: [phone] at: [address] [id number] Director: Aleks Ferreira PhD, Phone: [phone] Regarding lab results from 02/12/2025: MD Lakshmi Stone MA Please let him know that his serum creatinine is normal. Thank you. Patient's informed.Ohio Valley HospitalXR KNEE RT MIN 4 VWSon 42-07-2640IG KNEE RT MIN 4 VWSXR KNEE RT [...] by Shawanda Duncan MD on 02/19/2025 4:30 PMNProtestant Deaconess Hospital$ Large Joint Injection: knee, R kneeon 98-96-6518Tgpicwuvkqlandres Anthony MD 02/18/2025 11:33 AM $ Large [...] used to prep the skin.). MANUALLY TRANSCRIBED [facility] CenterOrders Onlyon 02-13-2025 Orders [id number] Vianey Lacey 1960 M Date Provider Department Center 02/13/2025 [id number], HISTORICAL [facility] Family History Problem Relation Age of Onset Cancer Mother Diabetes Mother Coronary artery disease Father Stroke Father Cancer Father Family Status - Relation Status Age at Mother Father Sister Brother DeceasedNormalUniGalion Community HospitalOffice Visiton 32-38-2860Rixahh-up [id number] Vianey Lacey 1960 M Date Provider Department Center 01/21/2025 271-GEORGE LOZA [facility] Family History Problem Relation Age of Onset Cancer Mother Diabetes Mother Coronary artery disease Father Stroke Father Cancer Father Family Status - Relation Status Age at Mother Father Sister Brother Level of Service:74828 SD OFFICE/OUTPATIENT ESTABLISHED [facility]36on 77-66-832427Ucrqxij's would like you to review his most recent labs from 11/20/2024 and see if he should start lisinopril. 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 Nitza says he never started lisinopril because they were keeping an eye on his renal function. Recent BP's have been 141/84, 136/83, 143/87, 141/83. Also, she is looking into buying an infrared sauna, but wasn't sure how you felt about PJ using it with his heart and kidney issues. Please advise. Thanks!Ohio Valley HospitalUrology Office/Clinic Noteon 32-68-9284Iejcrye Office/Clinic NoteUrology Office/Clinic Note Chief Complaint 1 year f/u HPI Staff 64yr old male pt here for 1yr f/u with PSA. Previous Dx: BPH with urinary obstruction, hypogonadism male, urge incontinence, ED *Tamsulosin 0.4mg QD PSA 09/06/21 - 0.70 06/15/22 - 0.79 He did have labs done @ [facility] but no PSA Dysuria: denies [...] -Cont Tamsulosin wo changes. Refills sent to [facility]. -Complete PSA level soon. Will call pt [...] Urology [address], [place] [phone] Additional Instructions: 1 yr w/ PSA and [...] Oral, TID levothyroxine 150 (more content not included)...[facility] HospitalComment on above:Result Comment: Electronically Signed By: Vianey SILVERMAN MD\.br\Date and Time Signed: 10/21/24 11:59 EST\.br\Electronically Co- Signed By: Nicki Jackson.br\Date and Time Co-Signed: 10/21/24 11:57 EST$ Large Joint Injection: R kneeon 16-01-8383Obsftwqibjiandres Anthony MD 10/08/2024 2:51 PM $ Large [...] prepped with betadine and alcohol.). MANUALLY TRANSCRIBED RESULTSMercy Health Clermont HospitalAmbulatory Visit Summaryon 09-46-9878Tjymaxnafw Visit SummaryAmbulatory Visit Summary VIANEY LACEY :1960 [...] PRIETO, Vianey Crawford Where: [facility] [place] [address]- Medications What How Much When Instructions Unchanged [...] you for choosing us for your care. [facility]erm[facility] HospitalOffice Visiton 12-48-0482Nxnofh- up [id number] Vianey Lacey 1960 Provider Department Center 07/16/2024 BAKARI CARSON [facility] Family History Problem Relation Age of Onset Cancer Mother Diabetes Mother Coronary artery disease Father Stroke Father Cancer Father Family Status - Relation Status Age at Mother Father Level of Service:45060 SD OFFICE/OUTPATIENT ESTABLISHED LOW MDM 20 [facility]$ Large Joint Injection: R kneeon 06-11-2024 [...] prepped with betadine and alcohol.). MANUALLY TRANSCRIBED RESULTSProEncompass Health Lakeshore Rehabilitation Hospital Health SystemOrders Onlyon 06-11-2024 Orders [id number] Vianey Lacey 1960 Provider Department Center 06/11/2024 Isa-GEORGE LOZA [facility] Family History Problem Relation Age of Onset Cancer Mother Diabetes Mother Coronary artery disease Father Stroke Father Cancer Father Family Status - Relation Status Age at Mother FatherNormalUniversity of Rio Grande Regional HospitalErythrocyte distribution width Auto (RBC) [Ratio]on 97-05-1278Bqnelkhmcis distribution width (RBC) [Ratio]13.3 %11.0-15.0[facility] SouthEstimated glomerular filtration rate (GFR) non- Americanon 54-02-7939RME/1.73 sq M.predicted among non-blacks MDRD (S/P/Bld) [Vol rate/Area]mL/min/{1.73_m2}>=60Prem[facility] Hospital SouthHematocrit Auto (Bld) [Volume fraction]on 20-92-8254Mfvzrqtclc (Bld) [Volume fraction]45.4 %42.0-54.0[facility] SouthHemoglobin [Mass/volume] in Bloodon 85-46-7895Ymjxtkdaow (Bld) [Mass/Vol]15.4 g/dL14.0-18.0 [facility] SouthLaboratory - Chemistry and Chemistry - challengeon 71-85-3823Zqwmajr [Mass/Vol]3.8 g/dL3.4-5.0[facility] SouthCalcium [Mass/Vol]8.9 mg/dL8.5-10.1FSumma Health Akron CampusChloride [Moles/Vol]101 mmol/S94-353AynjokqgfPremier Health Miami Valley Hospital SouthCO2 [Moles/Vol]31.2 mmol/L21.0-32.0[facility] SouthCreatinine [Mass/Vol]1.06 mg/dL0.70-1.30[facility] SouthGFR/1.73 sq M.predicted MDRD (S/P/Bld) [Vol rate/Area]mL/min/{1.73_m2}>=60[facility] SouthGlucose [Mass/Vol]91 mg/hS21-920WykxptmikPrem[facility] Health [facility] Hospital South Magnesium [Mass/Vol]1.9 mg/dL1.8-2.4FSumma Health Akron CampusPotassium [Moles/Vol]3.9 mmol/L3.5-5.1FWayne Hospitalodium [Moles/Vol] 138 mmol/E083-236HcaqvggemPremier Health Miami Valley Hospital SouthUrate [Mass/Vol]4.7 mg/dL 3.5-7.2FSumma Health Akron CampusUrea nitrogen [Mass/Vol]18.0 mg/dL 7.0-18.0[facility] Hospital SouthUrea nitrogen/Creatinine [Mass ratio] 17.0 mg/mgPremier Health Miami Valley Hospital SouthBilirubin Ql (U)NegativeNEGATIVE [facility] SouthGlucose (U) [Mass/Vol]NegativeNEGATIVEPremier Health Miami Valley Hospital SouthKetones Ql (U)NegativeNEGATIVEPremier Health Miami Valley Hospital SouthpH (U)5.5 [pH]5.0-9.0[facility] Regional Medical Centerpecific gravity (U) [Rel density]1.0201.005-1.025Prem[facility] Hospital SouthUrobilinogen Qn (U)0.2 {Brenda'U}/dL0.2-1.0[facility] SouthLaboratory - Specimen informationon 38-05-2604Gljeaccuwp (U)CLEARCLEARFSumma Health Akron CampusColor (U)YELLOWYELLOWPremier Health Miami Valley Hospital SouthLaboratory - Urinalysison 45-75-2704Vngruuezo esterase Test strip Ql (U)NegativeNEGATIVE [facility] SouthMucus Ql (Urine sed)NONE SEENNONE SEENPremier Health Miami Valley Hospital SouthNitrite Ql (U)NegativeNEGATIVEPremier Health Miami Valley Hospital SouthProtein (U) [Mass/Vol]6.9 mg/dL<=11.9[facility] Protein Ql (U)NegativeNEG/TRACEPremier Health Miami Valley Hospital SouthLeukocytes [#/volume] corrected for nucleated erythrocytes in Blood by Automated counon 93-85-2909ZSN corrected for nucl RBC Auto (Bld) [#/Vol]3.2 10 3/uLLow4.0-11.0 [facility] SouthMCH Auto (RBC) [Entitic mass]on 54-30-9985QHM (RBC) [Entitic mass]29.7 pg25.9-34.0[facility] SouthMCHC Auto (RBC) [Mass/Vol]on 30-55-3879KMZX (RBC) [Mass/Vol]33.9 g/dL29.9-35.2FUniversity Hospitals Conneaut Medical CenterV Auto (RBC) [Entitic vol]on 44-72-5701BML (RBC) [Entitic vol]87.5 fL80.0-94.0[facility] SouthNo Panel Informationon 74-67-841602033150-Tkiudfd Vitamin D Total74.8 ng/mLPremier Health Miami Valley Hospital SouthComment on above:<20 ng/mL Vit D ngwiyckav75-<30 ng/mL Vit D fxyyfuwnlofg59-949 ng/mL Vit D sufficient>100 ng/mL Potential Toxicity Parathyroid Hormone (Intact)34 pg/eW99-56JuhnsjolyPremier Health Miami Valley Hospital South Comment on above:Performed at: [employer] [facility] [place] [id number] Director: Aleks Ferreira PhD, Phone: [phone] Level 2.9 mg/dL2.6-4.7FSumma Health Akron CampusUrine BacteriaNONE SEEN #/HPF NONE [facility]on HospitalUrine Occult BloodNegativeNEGATIVE [facility] SouthUrine Random Srlmgcqxex082.55 mg/dL20.00-300.00 [facility] SouthUrine RBCNONE SEEN #/HPF0-2FSumma Health Akron CampusUrine Squamous Epithelial CellsRARE #/LPFNONE/RAREPremier Health Miami Valley Hospital SouthUrine WBCNONE SEEN #/HPFNONE [facility] Avon HospitalPlatelet mean volume Auto (Bld) [Entitic vol]on 32-93-2557Zaezimdx mean volume (Bld) [Entitic vol]9.5 fL9.5-13.5FSumma Health Akron Campus Platelets Auto (Bld) [#/Vol]on 13-29-0867Djdevgsci (Bld) [#/Vol]126 10 3/uLLow 150-450Prem[facility] Hospital SouthRBC Auto (Bld) [#/Vol]on 20-80-2761HHB (Bld) [#/Vol]5.19 10 6/uL4.70-6.10[facility] Regional Medical Centererum or plasma anion gap determinationon 62-24-6010Eyipz gap [Moles/Vol]9.7 mmol/L [facility] Hospital SouthUrine protein/creatinine ratioon 06-03-2024 Protein/Creatinine (U) [Ratio]0.06[facility] Hospital SouthRemindersaint luke's hospital 58-28-5663OblnrshmrHpcueblmx From: Melissa Nash LPN To: N - Clinical; Sent: 05/30/2024 15:23:45 EDT Show up: 04/28/2034 07:00:00 EDT Subject: colonoscopy recall Due Date/Time: 05/29/2034 07:00:00 EDT Reminder/Recall Patient due for screening colonoscopy 05/29/2034.[facility] HospitalAmbulatory Visit Summaryon 67-23-9035Bcohnmfgmz Visit SummaryAmbulatory Visit Summary VIANEY LACEY :1960 [...] Vianey SILVERMAN MD Where: [facility] [address] [address]- Medications What How Much When Instructions Unchanged [...] you for choosing us for your care. [facility]$ Large Joint Injection: R knee on 51-26-5186Nnxjcgjpgjjandres Anthony MD 11/02/2023 11:03 AM $ Large [...] prepped with betadine and alcohol.). MANUALLY TRANSCRIBED RESULTSOhioHealth Dublin Methodist Hospitalsician Referralon 07-79-3643Hzrcgeifs Jhgv[id number]#1.00TIFF Rey [facility]town CampusTelephone Encounteron 93-05-7314Eyytqmnbkpecs Authentication Interface Message TextPatient has not been seen by this specialist in more than 1 year. Please contact patient to schedule office visit. Thank TashMaria G [facility] SystemCNOVon 89-07-0786MXGTMyhsmp Visit (SPMESH) VIANEY LACEY ([id number]) 1960 M Date Time Provider Department 04/26/23 11:00 AM [facility]AW[facility]NDEZ [facility] During your visit today, we recorded the [...] PALPATION: no palpable masses (more content not included)...NormalWhite HospitalTESTOSTERONE, TOTALon 63-20-2890Niafbouwexkx [Mass/Vol]347 ng/dL Scciav385-277SelOhio Valley Surgical HospitalComment on above:Result Comment: Adult male reference interval is based on a population of healthy nonobese males (BMI <30) between 19 and 39 years old. Brad, et.al. JCEM 2017,102;2226-6749. PMID: [id number].Performed By: #### TESTTOT #### [facility] [address] [place] [address] Dr. Reuben MorrisonXR TSPINE 3 VIEWSon 32-96-0735QU TSPINE 3 VIEWSEXAMINATION: XR LSPINE MIN 4 [...] Electronically authenticated by: ALFREDITO LOAIZA Date: 2022-11-18 16:11[facility] HospitalTESTOSTERONE, TOTALon [id number] [Mass/Vol]993 ng/dLCritically onyq847-866Pxw [facility] HospitalComment on above:Result Comment: Adult male reference interval is based on a population of healthy nonobese males (BMI <30) between 19 and 39 years old. Brad, et.al. JCEM 2017,102;3580-3506. PMID: [id number].Performed By: #### TESTTOT #### [facility] [address] [place] [address] Dr. Reuben Prajapati AUTO DIFFon 02-31-7380ZNVA #0.0 103/ulNormal0.0-0.1The [facility] HospitalComment on above:Performed By: #### CBC #### [facility] [address] [place] [address] Dr. Reuben Lrsophils/100 WBC (Bld)0.4 %Normal0.2-2.0[facility] Comment on above:Performed By: #### CBC #### [facility] [address] [place] [address] Dr. Reuben Turner #0.1 103/ulNormal0.0-0.7The [facility] HospitalComment on above: Performed By: #### CBC #### [facility] [address] [place] [address] Dr. Reuben Allenosinophils/100 WBC (Bld)1.3 %Normal0.9-7.0The [facility] Comment on above:Performed By: #### CBC #### [facility] [address] [place] [address] Dr. Reuben Allenrythrocyte distribution width (RBC) [Ratio]14.3 %Xxvfyz16.0-15.0 The [facility]arth HospitalComment on above:Performed By: #### CBC #### [facility] [address] [address] [address] Reuben MorrisonHematocrit (Bld) [Volume fraction]48.9 %Rctltm36.0-54.0The [facility] HospitalComment on above:Performed By: #### CBC #### [facility] [address] [place] [address] Dr. Reuben MorrisonHemoglobin (Bld) [Mass/Vol]16.6 g/mODqyojf99.0-18.0The [facility] HospitalComment on above:Performed By: #### CBC #### [facility] [address] [place] [address] Dr. Reuben Retana #0.01 10e3/ulNormal0.00-0.03The [facility] HospitalComment on above:Performed By: #### CBC #### [facility] [address] [place] [address] Dr. Reuben Retana %0.2 %Normal0.0-0.5The [facility] HospitalComment on above: Performed By: #### CBC #### [facility] [address] [place] [address] Dr. Reuben Amaya #1.1 103/ulCritically low1.2-3.8The [facility] Comment on above:Performed By: #### CBC #### [facility] [address] [place] [address] Dr. Reuben Jean Baptistemphocytes/100 WBC (Bld)24.3 %Redtkd79.5-60.0The [facility] HospitalComment on above:Performed By: #### CBC #### [facility] [address] [place] [address] Dr. Reuben PlazaUAL DIFF REQNONormalThe [facility] HospitalComment on above: Performed By: #### CBC #### [facility] [address] [place] [address] Dr. Reuben Bhardwaj (RBC) [Entitic mass]29.5 snTbxhkl51.9-34.0The [facility] HospitalComment on above:Performed By: #### CBC #### [facility] [address] [address] [address] Reuben MottaHC (RBC) [Mass/Vol]33.9 g/nJElvgyt64.9-35.2The [facility] HospitalComment on above:Performed By: #### CBC #### [facility] [address] [place] [address] Dr. Reuben MottaV (RBC) [Entitic vol]86.9 jQFunvmr79.0-94.0The [facility] HospitalComment on above:Performed By: #### CBC #### [facility] [address] [place] [address] Dr. Reuben Astudillo #0.5 103/ulNormal0.3-0.8The [facility] HospitalComment on above:Performed By: #### CBC #### [facility] [address] [place] [address] Dr. Reuben Blevinsocytes/100 WBC (Bld)9.6 %Normal1.7-12.0The [facility] Comment on above:Performed By: #### CBC #### [facility] [address] [place] [address] Dr. Reuben Meredith #3.0 103/ulNormal1.4-6.5The [facility] HospitalComment on above:Performed By: #### CBC #### [facility] [address] [place] [address] Dr. Reuben Lanzautrophils/100 WBC (Bld)64.2 %Xhyucb37.0-75.0The [facility] HospitalComment on above:Performed By: #### CBC #### [facility] [address] [place] [address] Dr. Reuben Sorianolet mean volume (Bld) [Entitic vol]9.7 fLNormal9.5-13.5The [facility] HospitalComment on above:Performed By: #### CBC #### [facility] [address] [place] [address] Dr. Reuben MorrisonPLT130 103/ulCritically awt562-008Jqy [facility] HospitalComment on above:Result Comment: plts. appear slightly decreasedPerformed By: #### CBC #### [facility] [address] [place] [address] Dr. Reuben MorrisonRBC5.63 106/ulNormal4.70-6.10The [facility] HospitalComment on above:Performed By: #### CBC #### [facility] [address] [place] [address] Dr. Reuben MorrisonWBC4.7 103/ulNormal4.0-11.0The [facility] HospitalComment on above: Performed By: #### CBC #### [facility] [address] [place] [address] Dr. Reuben MorrisonTESTOSTERONE, TOTALon 56-93-9624Zwalkjebomgi [Mass/Vol]404 ng/dL Ovpgtm647-021Vvt [facility] HospitalComment on above:Result Comment: Adult male reference interval is based on a population of healthy nonobese males (BMI <30) between 19 and 39 years old. stephania Salinas.al. JCEM 2017,102;1563-0289. PMID: [id number].Performed By: #### TESTTOT #### [facility] [address] [place] [address] Dr. Reuben KramerC AUTO DIFFon 38-07-3912EZTW #0.0 103/ulNormal0.0-0.1The [facility] HospitalComment on above:Performed By: #### TESTTOT #### [facility] [address] [place] [address] Dr. Reuben MorrisonBasophils/100 WBC (Bld)1.0 %Normal0.2-2.0The [facility] Comment on above:Performed By: #### TESTTOT #### [facility] [address] [place] [address] Dr. Alexis ChangEGlenda #0.1 103/ulNormal0.0-0.7The [facility] HospitalComment on above: Performed By: #### TESTTOT #### [facility] [address] [place] [address] Dr. Reuben Allenosinophils/100 WBC (Bld)1.8 %Normal0.9-7.0The [facility] Comment on above:Performed By: #### TESTTOT #### [facility] [address] [place] [address] Dr. Reuben Allenrythrocyte distribution width (RBC) [Ratio]14.0 %Onzgge15.0-15.0 The [facility] HospitalComment on above:Performed By: #### TESTTOT #### [facility] [address] [place] [address] Dr. Reuben MorrisonHematocrit (Bld) [Volume fraction]47.3 %Fjqwah19.0-54.0The [facility] HospitalComment on above:Performed By: #### TESTTOT #### [facility] [address] [place] [address] Dr. Reuben MorrisonHemoglobin (Bld) [Mass/Vol]16.2 g/lRBkbysd02.0-18.0The [facility] HospitalComment on above:Performed By: #### TESTTOT #### [facility] [address] [place] [address] Dr. Reuben Retana #0.01 10e3/ulNormal0.00-0.03The [facility] HospitalComment on above:Performed By: #### TESTTOT #### [facility] [address] [place] [address] Dr. Reuben Retana %0.3 %Normal0.0-0.5The [facility] HospitalComment on above: Performed By: #### TESTTOT #### [facility] [address] [place] [address] Dr. Reuben Amaya #1.1 103/ulCritically low1.2-3.8The [facility] Comment on above:Performed By: #### TESTTOT #### [facility] [address] [place] [address] Dr. Reuben Jean Baptistemphocytes/100 WBC (Bld)26.6 %Nfngnc56.5-60.0The [facility] HospitalComment on above:Performed By: #### TESTTOT #### [facility] [address] [place] [address] Dr. Reuben Santizo DIFF REQNONormalThe [facility] HospitalComment on above: Performed By: #### TESTTOT #### [facility] [address] [place] [address] Dr. Reuben Motta (RBC) [Entitic mass]29.5 brOunotq61.9-34.0The [facility] HospitalComment on above:Performed By: #### TESTTOT #### [facility] [address] [place] [address] Dr. Reuben Motta (RBC) [Mass/Vol]34.2 g/sFRqmrbz90.9-35.2The [facility] HospitalComment on above:Performed By: #### TESTTOT #### [facility] [address] [place] [address] Dr. Reuben Skelton (RBC) [Entitic vol]86.2 tFKfhrkd64.0-94.0The [facility] HospitalComment on above:Performed By: #### TESTTOT #### [facility] [address] [place] [address] Dr. Reuben Astudillo #0.4 103/ulNormal0.3-0.8The [facility] HospitalComment on above:Performed By: #### TESTTOT #### [facility] [address] [place] [address] Dr. Reuben Blevinsocytes/100 WBC (Bld)9.0 %Normal1.7-12.0The [facility] Comment on above:Performed By: #### TESTTOT #### [facility] [address] [place] [address] Dr. Reuben Meredith #2.5 103/ulNormal1.4-6.5The [facility] HospitalComment on above:Performed By: #### TESTTOT #### [facility] [address] [place] [address] Dr. Yilan ChangNeutrophils/100 WBC (Bld)61.3 %Xbradb08.0-75.0The [facility] HospitalComment on above:Performed By: #### TESTTOT #### [facility] [address] [place] [address] Dr. Reuben Sorianolet mean volume (Bld) [Entitic vol]9.6 fLNormal9.5-13.5The [facility] HospitalComment on above:Performed By: #### TESTTOT #### [facility] [address] [place] [address] Dr. Reuben MorrisonPLT128 103/ulCritically dvg086-517Vog [facility] HospitalComment on above:Performed By: #### TESTTOT #### [facility] [address] [place] [address] Dr. Reuben MorrisonRBC5.49 106/ulNormal4.70-6.10The [facility] HospitalComment on above:Performed By: #### TESTTOT #### [facility] [address] [place] [address] Dr. Reuben MorrisonWBC4.0 103/ulNormal4.0-11.0The [facility] HospitalComment on above: Performed By: #### TESTTOT #### [facility] [address] [place] [address] Dr. Reuben MorrisonINSULINon 79-73-1776Cntnolz6.3 uIU/mLNormal2.6-24.9The [facility] HospitalComment on above:Performed By: #### TESTTOT #### [facility] [address] [place] [address] Dr. Reuben MorrisonTESTOSTERONE, TOTALon 64-67-1504Sjrtqstforoa [Mass/Vol]ng/dL Critically skmf924-294Hta [facility] HospitalComment on above:Result Comment: Adult male reference interval is based on a population of healthy nonobese males (BMI <30) between 19 and 39 years old. stephania Salinas.al. JCEM 2017,102;3840-0307. PMID: [id number].Performed By: #### TESTTOT #### [facility] [address] [address] [address] Reuben Prajapati AUTO DIFFon 25-84-8259LHXB #0.1 103/ulNormal0.0-0.1The [facility] HospitalComment on above:Performed By: #### CBC #### [facility] [address] [place] [address] Dr. Reuben MorrisonBasophils/100 WBC (Bld)1.4 %Normal0.2-2.0The [facility] Comment on above:Performed By: #### CBC #### [facility] [address] [place] [address] Dr. Reuben Turner #0.1 103/ulNormal0.0-0.7The [facility] HospitalComment on above: Performed By: #### CBC #### [facility] [address] [place] [address] Dr. Reuben Allenosinophils/100 WBC (Bld)1.4 %Normal0.9-7.0The [facility] Comment on above:Performed By: #### CBC #### [facility] [address] [place] [address] Dr. Reuben Allenrythrocyte distribution width (RBC) [Ratio]14.7 %Lizgaa13.0-15.0 The [facility] HospitalComment on above:Performed By: #### CBC #### [facility] [address] [place] [address] Dr. Reuben MorrisonHematocrit (Bld) [Volume fraction]49.8 %Hxukod11.0-54.0The [facility] HospitalComment on above:Performed By: #### CBC #### [facility] [address] [place] [address] Dr. Reuben MorrisonHemoglobin (Bld) [Mass/Vol]16.4 g/gBOsdghi87.0-18.0The [facility] HospitalComment on above:Performed By: #### CBC #### [facility] [address] [place] [address] Dr. Reuben Retana #0.01 10e3/ulNormal0.00-0.03The [facility] HospitalComment on above:Performed By: #### CBC #### [facility] [address] [address] [address] Reuben Retana %0.3 %Normal0.0-0.5The [facility] HospitalComment on above: Performed By: #### CBC #### [facility] [address] [address] [address] Reuben Amaya #0.9 103/ulCritically low1.2-3.8The [facility] Comment on above:Performed By: #### CBC #### [facility] [address] [place] [address] Dr. Reuben Dillardhocytes/100 WBC (Bld)24.7 %Jrlbps61.5-60.0The [facility] HospitalComment on above:Performed By: #### CBC #### [facility] [address] [place] [address] Dr. Reuben Santizo DIFF REQNONormalThe [facility] HospitalComment on above: Performed By: #### CBC #### [facility] [address] [address] [address] Reuben Bhardwaj (RBC) [Entitic mass]28.9 qqUlaagr72.9-34.0The [facility] HospitalComment on above:Performed By: #### CBC #### [facility] [address] [address] [address] Reuben Motta (RBC) [Mass/Vol]32.9 g/yHFtorsx93.9-35.2The [facility] HospitalComment on above:Performed By: #### CBC #### [facility] [address] [place] [address] Dr. Reuben Motta (RBC) [Entitic vol]87.7 fROoxaqd12.0-94.0The [facility] HospitalComment on above:Performed By: #### CBC #### [facility] [address] [place] [address] Dr. Reuben Astudillo #0.4 103/ulNormal0.3-0.8The [facility] HospitalComment on above:Performed By: #### CBC #### [facility] [address] [place] [address] Dr. Reuben Blevinsocytes/100 WBC (Bld)9.5 %Normal1.7-12.0The [facility] Comment on above:Performed By: #### CBC #### [facility] [address] [place] [address] Dr. Reuben LanzaUT #2.3 103/ulNormal1.4-6.5The [facility] HospitalComment on above:Performed By: #### CBC #### [facility] [address] [place] [address] Dr. Reuben Lanzautrophils/100 WBC (Bld)62.7 %Egykxf94.0-75.0The [facility] HospitalComment on above:Performed By: #### CBC #### [facility] [address] [place] [address] Dr. Reuben Sorianolet mean volume (Bld) [Entitic vol]9.8 fLNormal9.5-13.5The [facility] HospitalComment on above:Performed By: #### CBC #### [facility] [address] [place] [address] Dr. Reuben ClarkT149 103/ulCritically xne630-521Vkd [facility] HospitalComment on above:Performed By: #### CBC #### [facility] [address] [place] [address] Dr. Reuben MorrisonRBC5.68 106/ulNormal4.70-6.10The [facility] HospitalComment on above:Performed By: #### CBC #### [facility] [address] [place] [address] Dr. Reuben MorrisonWBC3.7 103/ulCritically low4.0-11.0The [facility] HospitalComment on above:Performed By: #### CBC #### [facility] [address] [place] [address] Dr. Reuben Arce THYROXINE INDEX T7on 52-42-6695JWK6.38Hjtdnp7.30-4.50The [facility] Hospitalment on above:Performed By: #### CMP, T7, TSH, LIPID #### [facility] [address] [place] [address] Dr. Reuben MorrisonT3U39.0 %Gfuhvx21.0-40.0The [facility] HospitalComment on above: Performed By: #### CMP, T7, TSH, LIPID #### [facility] [address] [place] [address] Dr. Reuben MorrisonT4 [Mass/Vol]6.40 ug/dLNormal4.50-12.10The [facility] Comment on above:Performed By: #### CMP, T7, TSH, LIPID #### [facility] [address] [place] [address] Dr. Reuben MorrisonGLYCOHEMOGLOBIN A1Con 11-67-2212ELN RECOMMENDATIONSEE BELOWNormal The [facility] HospitalComment on above:Result Comment: ADA RECOMMENDED LIMIT 4.0 - 6.0 ADA THERAPEUTIC TARGET < 7.0 ACTION SUGGESTED > 7.0Performed By: #### TESTTOT #### [facility] [address] [place] [address] Dr. Reuben MorrisonGlucose [Mass/Vol]105 mg/dLNormalThe [facility] HospitalComment on above:Performed By: #### TESTTOT #### [facility] [address] [place] [address] Dr. Reuben MorrisonHbA1c (Bld) [Mass fraction]5.3 %Normal4.5-6.2The [facility] HospitalComment on above:Performed By: #### TESTTOT #### [facility] [address] [place] [address] Dr. Reuben Boateng 44-59-7627Ncbn [Mass/Vol]100.0 ug/sVCguzey63.0-175.0The [facility] HospitalComment on above:Performed By: #### IRON, PSASC, VITB12, VITAD #### [facility] [address] [place] [address] Dr. Reuben MorrisonLIPID PROFILEon [id number]-HDL RATIO NORMSCleveland Clinic Lutheran HospitalComment on above:Result Comment: 3.3 - 4.4 LOW RISK 4.4 - 7.1 AVERAGE RISK 7.1 - 11.0 MODERATE RISK >11.0 HIGH RISKPerformed By: #### CMP, T7, TSH, LIPID #### [facility] [address] [place] [address] Dr. Reuben MorrisonCholesterol [Mass/Vol]157 mg/dLNormal<=200[facility] Comment on above:Performed By: #### CMP, T7, TSH, LIPID #### [facility] [address] [place] [address] Dr. Reuben MorrisonCholesterol in HDL [Mass/Vol]48 mg/pKNwumkd98-14FbwOhio Valley Surgical HospitalComment on above:Performed By: #### CMP, T7, TSH, LIPID #### [facility] [address] [place] [address] Dr. Reuben Sandovalesterol in LDL [Mass/Vol]96.0 mg/dLNoSt. Mary's Medical Center, Ironton CampusComment on above:Performed By: #### CMP, T7, TSH, LIPID #### [facility] [address] [place] [address] Dr. Reuben Brito.total/Cholesterol in HDL [Mass ratio]3.3 {ratio} NormalOhio Valley Surgical HospitalComment on above:Performed By: #### CMP, T7, TSH, LIPID #### [facility] [address] [place] [address] Dr. Reuben Robertson NORMAL> or = 60 mg/dl - LOW CARDIOVASCULAR RISK <40 mg/dl - HIGH CARDIOVASCULAR RISKMercy Health Lorain HospitalComment on above:Performed By: #### CMP, T7, TSH, LIPID #### [facility] [address] [place] [address] Dr. Reuben Novoa CALC NORMALSEE [facility] HospitalComment on above:Result Comment: <100 mg/dl OPTIMAL 100 - 129 mg/dl NEAR OR ABOVE OPTIMAL 130 - 159 mg/dl BORDERLINE HIGH 160 - 189 mg/dl HIGH >190 mg/dl VERY HIGH Performed By: #### CMP, T7, TSH, LIPID #### [facility] [address] [address] [address] Reuben MorrisonTriglyceride [Mass/Vol]65 mg/dLNormal<=150The [facility] Comment on above:Performed By: #### CMP, T7, TSH, LIPID #### [facility] [address] [address] [address] Reuben MorrisonVLDL CALC13.0 mg/dLNormalThe [facility] HospitalComment on above: Performed By: #### CMP, T7, TSH, LIPID #### [facility] [address] [address] [address] Reuben Millan 14(COMP METB)on [id number] [Mass/Vol]3.7 g/dLNormal 3.4-5.0[facility] HospitalComment on above:Performed By: #### CMP, T7, TSH, LIPID #### [facility] [address] [place] [address] Dr. Reuben MorrisonAlbumin/Globulin [Mass ratio]1.3 {ratio}NormalThe [facility] HospitalComment on above:Performed By: #### CMP, T7, TSH, LIPID #### [facility] [address] [place] [address] Dr. Reuben Keith [Catalytic activity/Vol]53 U/WFywoip98-895Vjt [facility] HospitalComment on above:Performed By: #### CMP, T7, TSH, LIPID #### [facility] [address] [address] [address] Reuben Goode [Catalytic activity/Vol]37 U/MXfezfk64-16Osd [facility] HospitalComment on above:Performed By: #### CMP, T7, TSH, LIPID #### [facility] [address] [address] [address] Reuben Woods gap [Moles/Vol]11.0 mmol/LNormalThe [facility] Comment on above:Performed By: #### CMP, T7, TSH, LIPID #### [facility] [address] [address] [address] Reuben MorrisonAST [Catalytic activity/Vol]28 U/FZqrpid67-40Rpk [facility] HospitalComment on above:Performed By: #### CMP, T7, TSH, LIPID #### [facility] [address] [address] [address] Reuben MorrisonBilirubin [Mass/Vol]0.9 mg/dLNormal0.2-1.0The [facility] Comment on above:Performed By: #### CMP, T7, TSH, LIPID #### [facility] [address] [address] [address] Reuben MorrisonCalcium [Mass/Vol]8.9 mg/dLNormal8.5-10.1The [facility] Comment on above:Performed By: #### CMP, T7, TSH, LIPID #### [facility] [address] [place] [address] Dr. Reuben MorrisonChloride [Moles/Vol]106 mmol/JYfxpjy15-816Pdj [facility] Comment on above:Performed By: #### CMP, T7, TSH, LIPID #### [facility] [address] [place] [address] Dr. Reuben MorrisonCO2 [Moles/Vol]28.2 mmol/YJnuxck78.0-32.0The [facility] Comment on above:Performed By: #### CMP, T7, TSH, LIPID #### [facility] [address] [address] [address] Reuben MorrisonCreatinine [Mass/Vol]1.55 mg/dLCritically high0.70-1.30The [facility] HospitalComment on above:Performed By: #### CMP, T7, TSH, LIPID #### [facility] [address] [place] [address] Dr. Reuben AllenGFR-AF AMMDYRFT88 mL/min/1.00p7Hncmhhrygo low>=60The [facility] HospitalComment on above:Performed By: #### CMP, T7, TSH, LIPID #### [facility] [address] [address] [address] Reuben AllenGFR-NON AF YJSTJHZL23 mL/min/1.37t3Hsarqxxzib low>=60The [facility] HospitalComment on above:Performed By: #### CMP, T7, TSH, LIPID #### [facility] [address] [address] [address] Reuben MorrisonGlobulin (S) [Mass/Vol]2.9 g/dLNormChildren's Hospital of ColumbusComment on above:Performed By: #### CMP, T7, TSH, LIPID #### [facility] [address] [address] [address] Reuben MorrisonGlucose [Mass/Vol]88 mg/iSClvkec37-748EteOhio Valley Surgical Hospital Comment on above:Performed By: #### CMP, T7, TSH, LIPID #### [facility] [address] [place] [address] Dr. Reuben MorrisonPotassium [Moles/Vol]4.2 mmol/LNormal3.5-5.1The [facility] Comment on above:Performed By: #### CMP, T7, TSH, LIPID #### [facility] [address] [place] [address] Dr. Reuben MorrisonProtein [Mass/Vol]6.6 g/dLNormal6.4-8.2The [facility] Comment on above:Performed By: #### CMP, T7, TSH, LIPID #### [facility] [address] [address] [address] Reuben MorrisonSodium [Moles/Vol]141 mmol/CGjujuh500-775Vnd [facility] Comment on above:Performed By: #### CMP, T7, TSH, LIPID #### [facility] [address] [place] [address] Dr. Reuben MorrisonUrea nitrogen [Mass/Vol]13.0 mg/dLNormal7.0-18.0The [facility] HospitalComment on above:Performed By: #### CMP, T7, TSH, LIPID #### [facility] [address] [address] [address] Reuben MorrisonUrea nitrogen/Creatinine [Mass ratio]8.4 mg/mgNoSt. Mary's Medical Center, Ironton CampusComment on above:Performed By: #### CMP, T7, TSH, LIPID #### [facility] [address] [place] [address] Dr. Reuben Galeas 78-73-6906JZS4.091 uIU/mLCritically low0.358-3.740Ohio Valley Surgical HospitalComment on above:Performed By: #### CMP, T7, TSH, LIPID #### [facility] [address] [place] [address] Dr. Reuben Jernigan RANGESCleveland Clinic Lutheran HospitalComment on above: Result Comment: <0.34 UIU/ml HYPERTHYROID 0.34-5.60 UIU/ml EUTHYROID >5.60 UIU/ml HYPOTHYROIDPerformed By: #### CMP, T7, TSH, LIPID #### [facility] [address] [place] [address] Dr. Reuben MorrisonVITAMIN B12on 68-98-8667Rnlzltdqg (Vitamin B12) [Mass/Vol]3126.0 pg/mLCritically lofa975.0-986.0Ohio Valley Surgical HospitalComment on above:Performed By: #### TESTTOT #### [facility] [address] [place] [address] Dr. Reuben MorrisonVITAMIN D 25 OHon 84-31-3742YDT D 25-OH90.4 ng/mLNormalOhio Valley Surgical HospitalComtrinity health muske[facility] hospital on above:Performed By: #### TESTTOT #### [facility] [address] [place] [address] Dr. Reuben Quinones D RANGESSEE Clinton Memorial HospitalComment on above: Result Comment: <20 ng/mL Vit D deficient 20 - <30 ng/mL Vit D insufficient 30 - 100 ng/mL Vit D sufficient >100 ng/mL Potential ToxicityPerformed By: #### TESTTOT #### [facility] [address] [place] [address] Dr. Reuben MorrisonXR SHOULDER RICHARD 2V or >on 92-30-8679IR SHOULDER RICHARD 2V or >EXAM: XR SHOULDER [...] Electronically authenticated by: ERIN HANSEN Date: 2022-03-07 16:26[facility] Vital Signs Date TimeVital SignValuePerforming QkjhbngclLzycujqp60-79-1697 12:06-0400Body bwyyay951.91 cmIlda Peck MD Work Phone: [phone]10-29-2025 12:06-0400 Body mass index (BMI) [Ratio]28.6 kg/y5EjjtksaIlda Peck MD Work Phone: [phone] [place], [place] 1292810-29-2025 12:06-0400 Body qxyvaw38.64 kgIlda Peck MD Work Phone: [phone] [place], [place] 1292810-29-2025 12:06-0400 Diastolic blood odafeoiq16 mm[Hg]Ilda Peck MD Work Phone: [phone] [place], [place] 1292810-29-2025 12:06-0400 Systolic blood mm[Hg]Ilda Peck MD Work Phone: [phone]10-20-2025 16:35-0400 Body ardvcg070.91 cmIlda Peck MD Work Phone: [phone]10-20-2025 16:35-0400 Body mass index (BMI) [Ratio]28.6 kg/y4UgquadaIlda Peck MD Work Phone: [phone]10-20-2025 16:35-0400 Body iqkwmu20.64 kgIlda Peck MD Work Phone: [phone]10-20-2025 16:35-0400 Diastolic blood astiwbgb20 mm[Hg]Ilda Peck MD Work Phone: [facility]10-20-2025 16:35-0400 Heart rate69 /minDoucari Peck MD Work Phone: [facility]10-20-2025 16:35-0400 SaO2% (BldA) [Mass fraction]96 %Ilda Peck MD Work Phone: [facility]10-20-2025 16:35-0400 Systolic blood mignizzx659 mm[Hg]Ilda Peck MD Work Phone: [phone]09-17-2025 10:43-0400 Body dlicxy383.9 cmAsierra Dawson MD Work Phone: [phone] [place], [place] [address]Iaatqcnwfk53-55-1725 10:43-0400Body mass index (BMI) [Ratio]29.73 kg/n2DfgyuRomán Dawson MD Work Phone: [phone])[facility] [place], [place] [address]Cxxibuypsz37-07-2490 10:43-0400Body yttcoi50.82 kgRomán Dawson MD Work Phone: [phone] [place], [place] [address]Xnpbfbeitc20-46-6109 10:43-0400Diastolic blood ksdicsen21 mm[Hg]Román Dawson MD Work Phone: [phone] [place], [place] [address]Iennjwklat86-21-6097 10:43-0400Heart rate49 /min Román Dawson MD Work Phone: [phone] [place], [place] [address]Brxomztzxx85-62-6742 10:43-0400Respiratory rate16 /minRomán Dawson MD Work Phone: [phone] [place], [place] [address]Upnezpmhtw08-87-1465 10:43-9817QbK0% (BldA) [Mass fraction]98 %Román Dawson MD Work Phone: [phone] [place], [place] [address]Ckvjsyevve05-10-3503 10:43-0400Systolic blood mm[Hg]Román Dawson MD Work Phone: [phone] [place], [place] [address]Dxrpocequz04-05-4159 11:21-0400Body folucy515.91 cmIlda Peck MD Work Phone: [facility]08-19-2025 11:21-0400 Body mass index (BMI) [Ratio]29 kg/x1SjjviknIlda Peck MD Work Phone: [facility]08-19-2025 11:21-0400 Body akaakj73 kgDosalome Peck MD Work Phone: [facility]08-19-2025 11:21-0400 Diastolic blood auckrgzi70 mm[Hg]Ilda Peck MD Work Phone: [facility]08-19-2025 11:21-0400 Systolic blood mm[Hg]Ilda Peck MD Work Phone: [facility]05-27-2025 10:20-0400 Body .2 Karlene Anthony MD Work Phone: [facility]05-27-2025 10:20-0400Body mass index (BMI) [Ratio]29.19 kg/k9JmgokzeidgtOsmin Anthony MD Work Phone: [facility]05-27-2025 10:20-0400Body nykiex44.54 kgOsmin Anthony MD Work Phone: [facility]01-27-2025 10:46-0500Body asxgarprerq96.52 [degF]Vianey SILVERMAN [facility]01-27-2025 10:46-0500Diastolic blood yxayywya90 mm[Hg]Vianey SILVERMAN [facility]01-27-2025 10:46-0500Systolic blood mm[Hg]Vianey SILVERMAN [facility]01-14-2025 14:40-0500Body .2 Karlene Anthony MD Work Phone: [facility]01-14-2025 14:40-0500Body mass index (BMI) [Ratio]29.13 kg/e4CyhredbpxquOsmin Anthony MD Work Phone: [facility]01-14-2025 14:40-0500Body qedvfl83.37 kgChsaulo Anthony MD Work Phone: [facility]11-19-2024 13:46-0500Blood Pressure LocationMichael NILL [phone]-WexlzMercy Health [facility]11-19-2024 13:46-0500Diastolic blood lnoevjxc41 mm[Hg]Shawanda NILL [phone]-LflzdMercy Health [facility] Hospital11-19-2024 13:46-0500Heart rate72 /minMichael NILL [phone]-UuyxkMercy Health [facility] Hospital11-19-2024 13:46-0500Respiratory rate16 /minMichael NILL [phone]-VnwvmMercy Health [facility] Hospital11-19-2024 13:46-0500Systolic blood ruqosghg014 mm[Hg]Shawanda NILL 123-5528Smnabs-ZnvndMercy Health [facility] Hospital10-23-2024 14:59-0400Body flnkap699.9 cmNicole Russel DO Work Phone: Ingen.ioAudrain Medical CenterSggbwshmpk61-88-4237 14:59-0400Body mass index (BMI) [Ratio]30.02 kg/o2Mfdmgj Russel DO Work Phone: noAudrain Medical CenterXgnhliywni26-47-9107 14:59-0400Body oywnss46.64 kgNicole Russel DO Work Phone: noAudrain Medical CenterTpdaprzwvx26-10-9653 14:59-0400Diastolic blood ltnfbgya91 mm[Hg]Sage Russel DO Work Phone: NOAudrain Medical CenterQmohobbkrh72-55-0184 14:59-0400Heart rate68 /min Sage Goode DO Work Phone: NOAudrain Medical CenterSsahrfaeiz14-81-1539 14:59-7231WvB7% (BldA) [Mass fraction]98 %Sage Goode DO Work Phone: NOAudrain Medical CenterXozqkhmvom41-39-5138 14:59-0400Systolic blood czqjletf071 mm[Hg]Sage Goode DO Work Phone: [facility] HospitalEhnckhyftf02-16-0870 11:04-0400Body lcbjao140.9 Don Dawson MD Work Phone: [facility] HospitalFpmavdrgza79-97-8835 11:04-0400Body mass index (BMI) [Ratio]29.89 kg/s6NzlldRomán Dawson MD Work Phone: [facility] HospitalRspopbqahb87-61-1642 11:04-0400Body dhzzew88.28 kgRomán Dawson MD Work Phone: [facility] HospitalTumnrmyjse39-08-1826 11:04-0400Diastolic blood ttythjen62 mm[Hg]Román Dawson MD Work Phone: [facility] HospitalYuzyelvuue57-24-8357 11:04-0400Heart rate68 /min Román Dawson MD Work Phone: [facility] HospitalBnzptkrsuv76-81-6933 11:04-0400Respiratory rate16 /minRomán Dawson MD Work Phone: [address] [place], [place] [address]Cutuhlqneg76-70-4758 11:04-0400Systolic blood nylbrdmt246 mm[Hg]Román Dawson MD Work Phone: [address] [place], [place] [address]Cwnrldojqm22-71-1820 11:20-0400Body iwwsja332.2 Karlene Anthony MD Work Phone: [facility]09-17-2024 11:20-0400Body mass index (BMI) [Ratio]28.7 kg/e1LvkjtjyfpivOsmin Anthony MD Work Phone: [facility]09-17-2024 11:20-0400Body aktxwb14.12 kgChsaulo Anthony MD Work Phone: [facility]09-12-2024 13:55-0400Body zzpugs576.91 cmMD Ilda Chesterluz maria Work Phone: [phone]09-12-2024 13:55-0400 Body mass index (BMI) [Ratio]29.4 kg/m2MD Ilda Chesterluz maria Work Phone: [phone])[address]09-12-2024 13:55-0400 Body jjzylqcdbtq20.8 [degF]MD Ilda Peck Work Phone: [phone]09-12-2024 13:55-0400 Body sakgrb75.97 kgMD Ilda Peck Work Phone: [phone])[address]09-12-2024 13:55-0400 Diastolic blood mxuacgjp21 mm[Hg]MD Ilda Peck Work Phone: [phone])[address]09-12-2024 13:55-0400 Heart rate61 /minMD Ilda Peck Work Phone: [phone])[address]09-12-2024 13:55-0400 Respiratory rate16 /minMD Ilda Peck Work Phone: [phone])[address]09-12-2024 13:55-0400 SaO2% (BldA) [Mass fraction]98 %MD Ilda Peck Work Phone: 1(548)609-[address] [place], [place] 4534009-12-2024 13:55-0400 Systolic blood mytzzofo636 mm[Hg]MD Ilda Peck Work Phone: [phone])[address]08-13-2024 15:01-0400 Blood Pressure LocationMichaelena MEJIA [phone]-NwwkkMercy Health [facility] Hospital08-13-2024 15:01-0400Diastolic blood dsdraoif51 mm[Hg]Shawanda NILL [phone]-NptliMercy Health [facility]ard Hospital08-13-2024 15:01-0400Heart rate68 /minMichael NILL [phone]-NvbqtMercy Health [facility] Hospital08-13-2024 15:01-0400Respiratory rate16 /minMichael NILL [phone]-NnxteMercy Health Willard Hospital08-13-2024 15:01-0400Systolic blood sdcxajgi815 mm[Hg]Shawanda MEJIA [phone]-IafxgMercy Health [facility]ard Hospital02-08-2024 10:48-0500Body htngzy946.2 Karlene Anthony MD Work Phone: [facility]02-08-2024 10:48-0500Body mass index (BMI) [Ratio]29.29 kg/o5KahbfmheuxbOsmin Anthony MD Work Phone: [facility]02-08-2024 10:48-0500Body .82 kgChsaulo Anthony MD Work Phone: [facility]01-22-2024 13:03-0500Blood Pressure LocationPatricaric SILVERMAN [facility]01-22-2024 13:03-0500Diastolic blood dhfyefbn59 mm[Hg]Vianey SILVERMAN [facility]01-22-2024 13:03-0500Heart rate75 /minPatrick HERRERA [facility]01-22-2024 13:03-0500Respiratory rate16 /minPatrick SILVERMAN [facility]01-22-2024 13:03-0500Systolic blood xkyvjata508 mm[Hg]Vianey SILVERMAN [facility]11-02-2023 10:00-0400Body mtoxcz640.91 cmAbdul Antonia Other [employer] Other 11-02-2023 10:00-0400Body mass index (BMI) [Ratio] 28.55 kg/t9Tqbfn Antonia Other [employer] Other 11-02-2023 10:00-0400Body ekmrczoxtmz01.2 [degF]Sandoval Antonia Other [employer] Other 11-02-2023 10:00-0400Body makwya13.47 kgAbdul Antonia Other [employer] Other 11-02-2023 10:00-0400Diastolic blood xmmcpkdy43 mm[Hg] Sandoval Antonia Other [employer] Other 11-02-2023 10:00-0400Respiratory rate16 /minAbdul Antonia Other [employer] Other 11-02-2023 10:00-1618ImD2% (BldA) [Mass fraction]94 % Sandoval Antonia Other [employer] Other 11-02-2023 10:00-0400Systolic blood mm[Hg] Sandoval Antonia Other [employer] Other 09-18-2023 12:25-0400Blood Pressure LocationPaaida SILVERMAN [facility]09-18-2023 12:25-0400Diastolic blood fhhmssez24 mm[Hg]Vianey SILVERMAN [facility]09-18-2023 12:25-0400Heart rate68 /minPatrick HERRERA [facility]09-18-2023 12:25-0400Respiratory rate16 /minPatrick HERRERA [facility]09-18-2023 12:25-0400Systolic blood vosshhwg201 mm[Hg]Vianey SILVERMAN [facility]08-02-2023 11:15-0400Body leihzi557.4 cmShawanda Hernandez PA-C Work Phone: [phone] Health Urbana HospitalYfnmxm66-46-7264 11:15-0400Body temperature 98.01 [degF]Shawanda Hernandez PA-C Work Phone: [phone] Health Urbana HospitalAkpnqm33-23-9014 11:15-0400Body .95 kgShawanda Hernandez PA-C Work Phone: [phone] Health Urbana HospitalEibscm18-56-4248 11:15-0400Diastolic blood hpyherdn96 mm[Hg]Shawanda Hernandez PA-C Work Phone: [phone] Health Urbana HospitalHuyuaw13-99-5113 11:15-0400Heart rate74 /min Shawanda Hernandez PA-C Work Phone: [phone] [address]-02-2023 11:15-1611RvL6% (BldA) [Mass fraction]97 %Shawanda Hernandez PA-C Work Phone: [phone] Ville [address]-02-2023 11:15-0400Systolic blood snyrwuvn514 mm[Hg]Shawanda Hernandez PA-C Work Phone: cMercy Health Urbana HospitalOslpob97-35-0383 08:12-0500Blood Pressure LocationPatrick HERRERA [facility]03-10-2023 08:12-0500Diastolic blood bojsmset20 mm[Hg]Vianey SILVERMAN [facility]03-10-2023 08:12-0500Heart rate70 /minPatrick SILVERMAN [facility]03-10-2023 08:12-0500Respiratory rate16 /minPatrick SILVERMAN [facility]03-10-2023 08:12-0500Systolic blood avgygbko389 mm[Hg]Vianey SILVERMAN [facility]10-26-2022 14:11-0400Body mass index (BMI) [Ratio]28.98 kg/m2Jovita Virk MD Work Phone: [phone]bHigzmi73-26-2555 14:11-0400Body enulfweisqw07.01 [degF]Jovita Virk MD Work Phone: [phone]rHgusjg30-06-5177 14:11-0400Body obxapb96.92 kg Jovita Virk MD Work Phone: IjeapHksczf19-537079XnnpnKtboeu66-88-2697 14:11-0400Diastolic blood oacztmif03 mm[Hg]Jovita Virk MD Work Phone: YemdrFzrljc24-816849LufisSfrplv57-97-4090 14:11-0400Heart rate98 /minJovita Virk MD Work Phone: [phone]fHfarew74-22-5957 14:11-0400Respiratory rate14 /Jaye Virk MD Work Phone: [phone]mTlwgsy01-27-1697 14:11-8607RpA4% (BldA) [Mass fraction]100 %Jovita Virk MD Work Phone: [phone]3-799135GdgsaSbiaaj25-17-6181 14:Systolic blood gknxturu576 mm[Hg]Jovita Virk MD Work Phone: [facility] Encounters Encounter DateEncounter TypeCare ProviderFacilityStart: 73-61-1370ncepjdoltk Vianey Crawford WATERSFacility:EU BellevueStart: 07-25-2025 End: 18-40-7274jxfvrbilauPtnzciw M Hoy MD Work Phone: [phone]-Mypexbbqe Health OrthopedicsStart: 07-25-2025 End: 81-72-2162Yrrirtj encounter procedureScot Pompa MD-[facility] Work Phone: Start: 07-23-2025 End: 55-69-0045Pheboqe encounter procedureRobmartínez Pompa MD-[facility] Work Phone: Start: 29-03-2223Cgqvxettga RecurringScot Pompa MD-Physical Therapy [place] CreekStart: 07-23-2025 End: 43-34-3721wppmeuqncsGkldbe M [place] IIFacility:[facility] Centertart: 43-38-7900Sujkskiqt for other preprocedural examinationScot Liang [facility] Physician GroupStart: 07-23-2025 End: 26-61-9338Donfbmg encounter procedureScot Pompa MD-Pre-Surgical Testing Work Phone: Start: 07-23-2025 End: 28-68-6370xzgqaonkchFwsgen M [place] IIFacility:[facility] Centertart: 07-14-2025 End: 05-96-8787mnkfwpwfjkStwqxoe M Hoy MD Work Phone: -[facility] BellevueStart: 07-14-2025 End: 62-45-8156Gyvvyxu encounter procedureSage Goode DO-[facility] [place] Work Phone: Start: 06-11-2025 End: 45-58-8586Wgtnqrromi Dawson MD Work Phone: noms Ra EndocrinologyStart: 06-11-2025 End: 78-20-8465Xrksqwromi Dawson MD Work Phone: NOUN Ra EndocrinologyStart: 06-11-2025 End: 37-83-9796Ohrpjzjfm encounterChsaulo Anthony MD Work Phone: [facility] Orthopedic SurgeryStart: 06-11-2025 End: 37-32-4533lkontqlufdTUFPO F SABBAGHNot AvailableStart: 06-11-2025 End: 15-10-0950Rjzrgv outpatient visit 25 minutesRomán Dawson MD Work Phone: noms Ra EndocrinologyComment on above: Sarah's disease (Primary Dx)Start: 05-24-2025 End: 18-95-2623Khuapy encounterJovita Virk MD Work Phone: [facility]Start: 05-13-2025 End: 17-02-3751Pgxtggw encounter procedureRobert Foster Pompa MD-[facility] Orthopedics [place] Work Phone: Start: 05-13-2025 End: 18-14-7142qhttodpzhdEnyyasx M Hoy MD Work Phone: [facility] Work Phone: Start: 02-18-2025 End: 73-93-8794eqjwntajnwCIOCHCHDXIY A FOETISCHProMedica Fisher-Titus Medical Centertart: 02-18-2025 End: 54-19-0209Kisunx outpatient visit 25 minutesOsmin Anthony MD Work Phone: [facility] Physicians Orthopedic SurgeryComment on above:Primary osteoarthritis of right knee (Primary Dx)Start: 01-21-2025 End: 02-27-8566vzupdiguriKGOL [facility] Springfieldtart: 10-21-2024 End: 75-48-0750bghhsbrnbsHfzfyqz R WATERSFacility:EU BellevueStart: 10-21-2024 End: 11-48-2978Jccoudk encounter procedureVianey SILVERMAN [facility] start: 10-08-2024 End: 02-11-4566jfcjyrysrfXAAVOYSFWVA A FOETISCHProMedica [facility] HospitalStart: 10-08-2024 End: 03-01-5295Jdwinny encounter procedureChristopher Dawn Anthony MD Work Phone: [facility] Orthopedic SurgeryComment on above:Primary osteoarthritis of right knee (Primary Dx)Start: 08-13-2024 End: 61-46-5311uimisclezzYxetioj R NILLFacility:GS ueStart: 08-13-2024 End: 11-89-2621Baxwygg encounter procedureMichael R NILL [phone]-Stuua General Surgery [place] Start: 07-17-2024 End: 31-57-3247xeyxpsacdzIWHWFX DANNERNot AvailableStart: 07-17-2024 End: 22-46-6613Zcvxcy outpatient visit 25 minutesNicole Russel DO Work Phone: noms [facility] STATE ROUTEComment on above:NANCY (obstructive sleep apnea) (Primary Dx); Hypersomnia; Snoring; Atrial fibrillation, unspecified type (CMS/HCC); Sleep deprivationStart: 07-17-2024 End: 04-81-3990Mjahyk flowsheetNicole Russel DO Work Phone: NOMS [facility] R[facility]TEStart: 07-17-2024 End: 44-58-5246Krapwg flowsheetNicole Russel DO Work Phone: noMS [address] STATE ROUTEStart: 07-16-2024 End: 16-48-5932nmgnhylqgcXHMJ [facility] Hospitaltart: 06-12-2024 End: 69-38-8020Yizmhx flowsDerick Dawson MD Work Phone: noms ENDOCRINOLOGYStart: 06-12-2024 End: 73-61-1613Nvxilz Shahrzad Dawson MD Work Phone: noms ENDOCRINOLOGYStart: 06-12-2024 End: 64-81-7268Gcixgh outpatient visit 25 minutesRomán Dawson MD Work Phone: noms ENDOCRINOLOGYComment on above:Sarah's disease (CMS/HCC) (Primary Dx)Start: 06-11-2024 End: 28-74-5105jmwfkxovxiFCYTSEYHCEZ Dawn ANTHONYProMedica Fisher-Titus Medical Centertart: 06-11-2024 End: 53-92-0372Mujecsk encounter procedureChrisdennis Anthony MD Work Phone: [facility] Physicians Orthopedic SurgeryComment on above:Primary osteoarthritis of right knee (Primary Dx)Start: 06-06-2024 End: 31-32-1659mpfvabmaujMZ Ilda Peck Work Phone: [facility] Work Phone: Start: 06-06-2024 End: 67-61-2637Lmrhjyq encounter procedureMD Ilda Hoy Work Phone: [phone] [place] [address] Physician Group-[facility] Nephrology Bobby Work Phone: Start: 92-11-9604Rfw-patient / Non-visitMD Ilda Hoy Work Phone: [facility]ician [facility] Work Phone: Start: 05-29-2024 End: 57-39-7628mcnrsvqkqkSnpzhwq R NILLFacility:CD:[id number]: 05-07-2024 End: 28-58-0248jltylpoletSsabzci R NILLFacility:GS BellevueStart: 05-07-2024 End: 82-63-5014Vjvuydz encounter procedureMichael R NILL [phone]-Btuck General Surgery [place] Start: 72-36-5526tqziczpobuMewdvzq NILLFacility:GS BellevueStart: 04-05-2024 End: 77-59-2940cpsogjartqCU Ilda Peck Work Phone: [facility] Work Phone: Start: 04-05-2024 End: 87-85-6680Fqczmhwp ReferredMD Ilda Peck Work Phone: [facility]-LAB Path Spec [place] HospStart: 59-27-7870Abrrsr encounterMETROHEALTH SYSTEM Work Phone: Start: 74-65-2357nnveaoppqhXndkpwx R WATERSFacility:EU Belltart: 11-02-2023 End: 32-05-3227Qwyrfow encounter procedureChrisdennis Anthony MD Work Phone: [facility] Orthopedic SurgeryComment on above:Primary osteoarthritis of right knee (Primary Dx)Start: 10-16-2023 End: 53-71-3756Aggomhv encounter procedureVianey SILVERMAN [facility] start: 07-27-2023 End: 66-38-1599aeompkjgujQxnkg Antonia Other [employer] Other Start: 49-23-7107Tfvjxv outpatient new 45 minutesAbdul QadirFPG NephrologyStart: 06-12-2023 End: 49-79-7859Ofmonsr encounter procedureVianey SILVERMAN [facility] start: 05-03-2023 End: 61-81-0494Zdznfcj encounter procedureTaylor Joshua [facility] start: 04-26-2023 End: 35-89-9750qyhypkjhosJXGAAYL M HOYFacility:[facility] Hospitaltart: 04-26-2023 End: 58-17-8488Ukymkkj encounter Mo Hernandez PA-C Work Phone: Spine MedicineComment on above:Height loss (Primary Dx)Start: 03-08-2023 End: 14-92-0099Excggyf encounter procedureJENNIFER Tania JENNIFER [facility] start: 01-20-2023 End: 57-73-6791pswrdomfvqBP ILDA PECK .Facility:I1Ewius: 12-02-2022 End: 87-37-7335Jnqohek encounter procedureVianey SILVERMAN [facility] start: 11-18-2022 End: 22-66-2369anydatrbwcSR ILDA PECK .Facility:G7Nhgmh: 11-08-2022 End: 95-52-2873bcocoxpuzdDNRVX M LUE .Facility:K7Mmvmr: 11-01-2022 End: 38-45-6444Qbekkez encounter procedureJENNIFER E JENNIFER [facility] start: 10-05-2022 End: 23-41-4876Vpyqnjb encounter procedureJENNIFER E JENNIFER [facility] start: 09-07-2022 End: 75-14-1209Bsedzfu encounter procedureTaylor Joshua [facility] start: 70-24-0105Hbwuti encounterJovita Virk MD Work Phone: [facility] CenterStart: 08-17-2022 End: 95-29-4534Qnkhgsx encounter procedureTaylor PeñaMark Tres [facility] start: 13-25-2738Csudmpqtn encounterAarti Kelsey MA, CCC, [employer] Work Phone: [facility] Speech TherapyStart: 07-21-2022 End: 00-06-1472dgvkkcvnrlJS ILDA FloresFacility:B3Yonbv: 07-20-2022 End: 05-16-2633Twzvur outpatient visit 25 minutesJovita Virk MD Work Phone: [facility] PM&R Cancer CareComment on above: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); Cognitive changes; Body mass index (BMI) 28.0-28.9, adultStart: 07-11-2022 End: 65-51-3306Ioreyxr encounter procedureVianey SILVERMAN [facility] start: 06-15-2022 End: 04-30-1954erynpuabjrMZHarriett FloresFacility:L6Oktzr: 06-13-2022 End: 65-96-6958Oscnifm encounter Chip SILVERMAN [facility] start: 04-27-2022 End: 67-44-2292syddjvnvimYCHarriett FloresFacility:T8Whcqq: 04-07-2022 RefillJovita Virk MD Work Phone: [facility] [place] PM&RComment on above: RefillStart: 97-54-5599fdryleheiwDS ILDA HOY .Facility:P1Awylm: 03-17-2022 ambulatoryDR ILDA HOY .Facility:Z5Lnlgk: 24-93-5946Kgghzqjva for general adult medical examination without abnormal findingsDR ILDA HOY .[facility] End: 04-73-5857Ezlrlvnnr for general adult medical examination without abnormal findingsDR ILDA HOY .Facility:W0Jgdae: 03-07-2022 End: 51-90-0724bunsxptirmER ILDA HOY .Facility:N6Cfztk: 03-01-2022 End: 21-28-6412Aydreub encounter procedureSaeed Cantu Jr. [facility] start: 02-01-2022 End: 42-11-9749Jcshtka encounter procedureSaeed Cantu Jr. [facility] start: 01-04-2022 End: 09-22-2459Sylfhbx encounter procedureSaeed Cantu Jr. executive [facility] Procedures DateProcedureProcedure DetailPerforming ClinicianStart: 56-60-7271Mnezf X-ray of right femurIlda Peck MD Work Phone: [phone]: 82-73-9542Hziaj X-ray of right tibia and right fibulaIlda Peck MD Work Phone: Start: 32-55-5302Sbauoebshhbpia aspir&/inj major jt/bursa w/o usChristopher Dawn Anthony MD Work Phone: Start: 37-16-1463Kdbehdgebgbklr aspir&/inj major jt/bursa w/o usChristopher Dawn Anthony MD Work Phone: Start: 60-29-6768Uorfbppxkutyez aspir&/inj major jt/bursa w/o usChristopher Dawn Anthony MD Work Phone: Start: 71-91-8807Prrbgg-up visitFollow-upCHRISTOPHER Dawn ANTHONYStart: 55-73-1731OfycrkubojnXbvov Sabbagh MD Work Phone: Start: 77-38-4683NgdnfiggykaEeqwepk NILL Start: 09-71-6317Rbyyfsjhzflpal aspir&/inj major jt/bursa w/o usChristopher Dawn Anthony MD Work Phone: Start: 36-32-9046APO screeningDR ILDA PECK .Comment on above:Performed By: #### TESTTOT #### [facility] [address] [place] [address] Dr. Reuben Rollins: 76-52-0778CIF screeningDR ILDA PECK .Comment on above: Performed By: #### IRON, PSASC, VITB12, VITAD #### [facility] [address] [place] [address] Dr. Reuben Rollins: 17-30-4101Icgrauilobfdztogx with dilation of urethral strictureSaeed Cantu Jr. start: 18-93-8560RvqiykouyszWpuxsob NILL Arthroplasty of kneeSaeed Cantu Jr. comment on above:Left sideArthroscopy of shoulder Shawanda NILL CardioversionMichael NILL Cervical arthrodesisMichael NILL Hernia repairSaeed Cantu Jr. repair of left inguinal herniaMichael NILL Repair of musculotendinous cuff of shoulderSaeed Cantu Jr. Transesophageal echocardiographyMichael SUKHL Plan of Treatment DateCare ActivityDetailAuthorStart: 68-62-1838Uosuxhtij for malignant neoplasm of colonNOMS HealthcareStart: 11-66-6987SQH vaccine (adult) (1 - 1-dose 75+ series)RSV vaccine (adult) (1 - 1-dose 75+ series)[facility]HealthStart: 09-04-2031 DTaP,Tdap and Td Vaccines (2 - Tdap)DTaP,Tdap and Td Vaccines (2 - Tdap) [facility] SystemStart: 12-89-7918Ixxht microalbumin profileDTAP,TDAP,TD (2 - Tdap)[facility]: 05-46-6679IEYBWRWP CANCER SCREENING DISCUSSION PROSTATE CANCER SCREENING DISCUSSIONWilson Healthtart: 69-97-4918Evbbj BMI ScreeningAdult BMI ScreeningProUniversity Hospitals [facility] SystemStart: 66-18-9827Ynencvw ScreeningTobacco ScreeningProThe Bellevue Hospitaltart: 12-10-2025 End: 98-08-8622Daeptbi encounter mgrwtnwim27/18/2026 11:00 AM EDT Office Visit [facility] [address] [place] [address] Román Dawson MD [address] [place] [address] NOMDeanna Martin EndocrinologyStart: 25-30-4960Facto panelCholesterolMETAVITA HEALTH SYSTEM SYSTEMStart: 94-23-6493Rbfyf X-ray of right femurXR femur RT 2V*[facility]: 07-23-2025 Plain X-ray of right tibia and right fibulaXR tibia fibula RT 2V*[facility]art: 25-81-5055OK Femur - right 2 ViewsSalem Regional Medical Centertart: 12-75-2889MH Tibia and Fibula - right 2 Views [facility]ertart: 57-26-0248MywjjfaywSalem Regional Medical Centertart: 07-15-2025 End: 72-53-8577Heilzpd encounter wrqwczivk08/21/2025 3:00 PM EDT Office Visit [facility] [place] [address] [place] [address] Sage Goode DO [address] [place] [address] [facility] [place] [facility] ROUTEStart: 93-06-6948Idzzhpffd vaccinationInfluenza Vaccine (#1)[facility]HealthStart: 68-40-1063Kkjaz BMI Screening Adult BMI ScreeningMemorial Health System SystemStart: 06-11-2025 End: 38-39-4290Njxvfcmegyn [Units/volume] in Serum or PlasmaTSH Lab Routine Sarah's disease Expected: 06/11/2025 (Approximate), Expires: 06/11/2026[facility] HealthcareComment on above:Expected: 06/11/2025 (Approximate), Expires: 06/11/2026Start: 06-11-2025 End: 67-81-5134Sjrzswbzh (T4) free [Mass/volume] in Serum or PlasmaT4, free Lab Routine Sarah's disease Expected: 06/11/2025 (Approximate), Expires: 06/11/2026[facility] HealthcareComment on above:Expected: 06/11/2025 (Approximate), Expires: 06/11/2026Start: 77-82-2827Sdnltau ScreeningTobacco ScreeningMemorial Health System SystemStart: 06-11-2025 End: 99-20-3458Rmftaiszmssmewqn (T3) Free [Mass/volume] in Serum or PlasmaT3, free Lab Routine Sarah's disease Expected: 06/11/2025 (Approximate), Expires: 06/11/2026[facility] Work Phone: Comment on above:Expected: 06/11/2025 (Approximate), Expires: 06/11/2026Start: 06-11-2025 End: 58-85-0994Uvweqrx encounter gomwbnvjs43/17/2025 10:30 AM EDT Office Visit [facility] [address] [place] [address] Román Dawson MD [address] [place] [address] [facility] ENDOCRINOLOGYStart: 69-51-1414RIIAG-19 Vaccine ( season)COVID-19 Vaccine ( season)[facility] HospitaledicMay[facility] System Start: 31-38-6533Vikitijoh vaccinationProUniversity Hospitals [facility] SystemStart: 02-18-2025 End: 62-73-6126FJ Knee - right 4 ViewsProMedica Work Phone: Comment on above:Expected: 02/18/2025, Expires: 02/18/2026Start: 43-60-5629Rsefr BMI ScreeningAdult BMI ScreeningProUniversity Hospitals [facility] SystemStart: 14-47-7668Ymjhvhy ScreeningTobacco ScreeningProUniversity [facility]als [facility] SystemStart: 07-17-2024 End: 25-72-5105Siyawab encounter ctiurnmda73/23/2024 2:30 PM EDT Office Visit [facility] [address] [place] [address] Sage Goode [address] [place] [id number] [facility] ROUTEStart: 06-12-2024 End: 27-99-3748Foedqweymcg [Units/volume] in Serum or PlasmaTSH Lab Routine Sarah's disease (CMS/HCC) Expected: 06/12/2024 (Approximate), Expires: 06/12/2025[facility] HealthcareComment on above:Expected: 06/12/2024 (Approximate), Expires: 06/12/2025Start: 06-12-2024 End: 27-60-3799Ipqthfmdz (T4) free [Mass/volume] in Serum or PlasmaT4, free Lab Routine Sarah's disease (CMS/HCC) Expected: 06/12/2024 (Approximate), Expires: 06/12/2025[facility] HealthcareComment on above:Expected: 06/12/2024 (Approximate), Expires: 06/12/2025Start: 06-12-2024 End: 64-28-3963Ktbazynrebwbebxy (T3) Free [Mass/volume] in Serum or PlasmaT3, free Lab Routine Sarah's disease (CMS/HCC) Expected: 06/12/2024 (Approximate), Expires: 06/12/2025[facility] Healthcare Work Phone: Comment on above:Expected: 06/12/2024 (Approximate), Expires: 06/12/2025Start: 39-64-5434BBUMB-19 Vaccine ( season)COVID- 19 Vaccine ( season)[facility] SystemStart: 20-02-7825NARWS-19 Vaccine ( season)COVID-19 Vaccine ( season)[facility] SystemStart: 01-08-5971Nybvchpxh vaccinationBLUE MOUNTAIN HOSPITAL HealthcareStart: 49-71-7856Pymw Risk ScreeningFall Risk ScreeningProUniversity Hospitals Ge[facility] SystemStart: 42-85-7050Glqkvghmjpzo Vaccine: 65+ Years (1 of 1 - PCV)Pneumococcal Vaccine: 65+ Years (1 of 1 - PCV)[facility] HealthcareStart: 26-78-9756TMESC-19 Vaccine ( season)COVID-19 Vaccine ( season)[facility] SYSTEMStart: 96-08-2568Wlngjukpk vaccinationINFLUENZA (#1)[facility] ClinicStart: 09-25-2022 DEPRESSION ASSESSMENTDEPRESSION ASSESSMENTWilson [facility]althtart: 09-20-2022 COVID-19 Vaccine (5 - Booster for Pfizer series)COVID-19 Vaccine (5 - Booster for Pfizer series)[facility]HealthStart: 81-89-2997NYWFJ-19 VACCINE (5 - Pfizer series)COVID-19 VACCINE (5 - Pfizer series)[facility]: 07-19-2022 End: 11-31-8449Cmlpuwn encounter lklyzjhin96/25/2022 Office Visit Physical Medicine & Rehab/PM&R Jovita Virk MD [address] [place] [address] [facility] [place] PM&RStart: 89-88-5267Muhmkmjxk vaccinationInfluenza Vaccine (#1)[facility] Start: 82-71-4109Kyzaipfj (RZV) Vaccine (2 of 2)Shingles (RZV) Vaccine (2 of 2) [facility]HealthStart: 21-32-2389GYENH-19 Vaccine (4 - Booster for Pfizer series) COVID-19 Vaccine (4 - Booster for Pfizer series)[facility]HealthStart: 11-15-2021 COVID-19 Vaccine (4 - Booster for Pfizer series)COVID-19 Vaccine (4 - Booster for Pfizer series)[facility]HealthStart: 20-99-9167Itfnw panelCholesterolMetCleveland Clinic [facility] Hospital Start: 05-19-6527IWCDECBL SCREENDIABETES SCREENWilson Healthtart: 2019 Hepatitis B (HBV) Vaccine (optional start 60+ years)Hepatitis B (HBV) Vaccine (optional start 60+ years)[facility] SYSTEMStart: 77-48-5699FGR vaccine (optional 60+ years)RSV vaccine (optional 60+ years)[facility] SYSTEMStart: 64-16-1048Dbldlb wellness visitAnnual Wellness Visit (G0438)[facility]HealthStart: 88-05-5150Uautfhb stimulating hormone measurementTSHMetroHealthStart: 2009 Measurement of occult blood in single stool specimenFITMetroHealthStart: 34-75-5313Myhifzpkvhrl vaccinationPneumococcal Vaccine(s) (50+ yrs) (1 of 1 - PCV)[facility]HealthStart: 31-64-7454Fljzcxded for malignant neoplasm of colonCRC ScreeningMetroHealthStart: 43-52-4115Jolsticd (RZV) Vaccine (1 of 2)Shingles (RZV) Vaccine (1 of 2)[facility]HealthStart: 97-28-8002XSKYWXQRX (FIT-DNA)COLOGUARD (FIT-DNA)[facility]: 37-80-8912BenppgrhgwbKVFQNPJZGZDZuyiurpvv Clinic Start: 54-93-1064ICSZOQUFQN CANCER SCREENINGCOLORECTAL CANCER SCREENINGWilson Healthtart: 91-28-4236LJ COLONOGRAPHYCT COLONOGRAPHYWilson [facility]althtart: 07-23-3584KRNIL OCCULT BLOODFECAL OCCULT BLOODWilson [facility]althtart: 02-22-2004 Screening for malignant neoplasm of colonPROMEDICA FOSTORIA COMMUNITY HOSPITALtart: 02-22-2004 SIGMOIDOSCOPYSIGMOIDOSCOPYWilson Healthtart: 89-75-1291SGIWV SCREENLIPID SCREENWilson Healthtart: 61-27-9205Rhhudjglb A (HAV) Vaccine (optional start 19+ years)Hepatitis A (HAV) Vaccine (optional start 19+ years)METST. JOHN'S EPISCOPAL [facility] SOUTH SHOREtart: 85-26-0929Jouqb BMI Follow Up PlanAdult BMI Follow Up PlanMission Hospitaltart: 60-16-1455JHMGZM PCP TEAM CHRONIC DISEASE VISITANNUAL PCP TEAM CHRONIC DISEASE VISITWilson [facility]althtart: 40-03-1276Giuaskif foot examinationDiabetic Foot ExamProThe Bellevue Hospitaltart: 92-49-9483Mcuzzpoti C screeningHepatitis C AntibodyMetroHealthStart: 30-83-5672ATFJESPUT C SCREENING HEPATITIS C SCREENINGWilson Healthtart: 50-47-6626UDK SCREENINGHIV SCREENING [facility]: 88-54-2140MEGKYRVNUYOZECEWSOMTTwlelkcsz ClinicStart: 06-16-5039Lneewrb + diphtheria + acellular pertussis vaccine (product)Tdap BoosterMetroHealthStart: 51-06-9458NYJ screeningHIV TestMetroHealthStart: 61-62-2213Nbypvkmkrw ScreeningDepression ScreeningMission Hospitaltart: 10-35-8001TTCFDGMWDDRB (1 - PCV)PNEUMOCOCCAL (1 - PCV)[facility]: 81-78-7194Bhcuwihv screeningDiabetic Ophthalmology ExamMercy Health Clermont Hospital Start: 1959Medicare Annual Wellness VisitMedicare Annual Wellness Visit [facility] Hospitaltart: 06-22-8810Vzxcucadi for malignant neoplasm of colonMetroHealthStart: 67-03-9720Iicers Use: DiabeticStatin Use: Diabetic [facility]ermont HospitalArthrp kne condyle&platu medial&lat compartmentsROBOTIC REPLACEMENT TOTAL JOINT KNEE Primary osteoarthritis of right kneeFLOWER SURGERY Hemoglobin [Mass/volume] in BloodPremier Health Miami Valley Hospital SouthPatient EducationLow back pain in adultsKindred Hospital Dayton Work Phone: [facility] Immunizations Immunization DateImmunizationNotesCare BpdlxjlvItfkbotb07-39-8943cizmakldq virus vaccine, unspecified formulationChristopher Raj PRIETO Work Phone: [facility] Yggdib82-27-1307gcuebmuzh virus vaccine, unspecified formulationMichael NILL [phone]-AvbmvWayne Healthcare Main Campus 55-51-4169Ubgkgspaj, injectable, Madin [place] Canine Kidney, preservative free, quadrivalentMETROHEALTH SYSTEM Work Phone: [phone]8-0388resbkp vaccine recombinantMichael Ulices BARRY Work Phone: cMercy Health Urbana HospitalKkyror03-64-9434Yvypzxn Monovalent (12+ yrs) COVID-19 vaccine, mRNA, spike protein, LNP, PF, 100 mcg/0.5 mL (QNG=219)[place] 951190-31-2022Influenza, injectable, Madin [place] Canine Kidney, preservative free, quadrivalentJovita Virk MD Work Phone: PpdyyHuznnl62-167753NhjqvVbasfg92-65-0749vrqdfo vaccine recombinantJovita Virk MD Work Phone: TpvzsWzhkjg42-185694GprveQtfubc05-74-4337EWPY-AqZ-4 (COVID-19) mRNA BNT- 162b2 vaxMichael NILL [phone]-BtodtWayne Healthcare Main Campus 07-60-0379sxfzkkiwap, tetanus toxoids and pertussis vaccineJovita Virk MD Work Phone: BygdqIykyzj16-883525XccpaEcxkvs00-57-7656WIZO-MnE-7 (COVID-19) Ad26 vaccine, Juana Cantu Jr. executive [facility] 11353372-62-3160uzapolwpp, injectable, quadrivalent, preservative Camryn Virk MD Work Phone: KrvdkAgpdik68-495912DaouqMpbdhu36-65-3203wamhoudbd virus vaccine, unspecified formulationJovita Virk MD Work Phone: BtimbGjjkgx41-879103MuxtiCzrosu79-08-2037vhvycerzg virus vaccine, unspecified formulationSaeed Cantu Jr. executive [facility] 03046326-15-7474Gbluki (12+ yrs) SARS-COV-2 (COVID-19) vaccine, mRNA, spike protein, LNP, pres. free, 30 mcg/0.3mL dose (SGO=085)Jovita Virk MD Work Phone: UxwcgMwofeo06-491297DurrbJjpstd41-20-9962Uzkhru (12+ yrs) SARS-COV-2 (COVID-19) vaccine, mRNA, spike protein, LNP, pres. free, 30 mcg/0.3mL dose (IFW=922)Jovita Virk MD Work Phone: PosenXdunhz21-859005CmvtbWfyvhu26-86-9508iujugpcwp virus vaccine, unspecified formulationSaeed Cantu Jr. executive [facility] 10639448-05-4906svqkolhoh, injectable, quadrivalent, preservative Camryn Virk MD Work Phone: [phone]S-HgZ-3 (COVID-19) mRNA BNT- 162b2 Darnell Cantu Jr. executive [facility] 03-650648-20-9261TCWR-VrZ-2 (COVID-19) mRNA BNT-162b2 beau Cantu Jr. executive [facility] Payers DatePayer CategoryPayerPolicy [id number] House Health [facility] [id number]049.57715-98-2330XvvvMemorial Medical Center Managed Care - PPO1.2.840.686007.1.13.424.2.7.9.082382.505.39801-43-7521Pirbdqt [id number] IndemnityMEDICAL MUTUAL - TRADITIONAL 1.2.840.273532.1.13.56.2.7.9.677236.425.53597-29-0215Yjglgcd 1.2.840.807853.1.13.56.2.7.3.082[id number] Medicare1.2.840.365665.1.13.56.2.7.3.451478.315 2014Medicare FFSMEDICARE 1..840.616642.1.13.56.2.7.9.574402.100.315 [id number] 95-14-6354Bfwh-jnh85179863791-18-5780Hstuqyp8933628 2..1.684248.3.579.2.42675-94-7620Uooyzbe1907542 2..1.859947.3.579.2.57549-54-6501Zdbmrpp2473287 2.0.1.308120.3.579.2.82374-03-7918Pqrhovm7909657 2.0.1.405333.3.579.2.70061-87-4526Poaxpkv4428558 2..1.582698.3.579.2.47437-03-3061Acugtkj7015330 2..1.405100.3.579.2.53353-79-1343Edlmjjb5585218 2.0.1.723767.3.579.2.90473-66-8676Nzheyaw2106321 2.0.1.533764.3.579.2.75267-50-6278Hgxltha0117018 2.16840.1.109890.3.579.2.20318-82-6248Stfmjun2312572 2.16840.1.742375.3.579.2.64455-60-3649Mbstcrd8068014 2.16840.1.497745.3.579.2.42203-51-7223Pfnswuw51291285 2.16840.1.336694.3.579.2.90440-72-6541Tkentbf19661731 2.16840.1.431100.3.579.2.87831-83-2584Qizvjpq20220956 2.16840.1.797450.3.579.2.39262-38-3862Ptxdecl93262004 2.840.1.772680.3.579.2.51208-85-0771Rxcskxn92283056 2.16840.1.339347.3.579.2.75884-00-0650Ewmqdps33549934 2.16840.1.052159.3.579.2.00254-75-9864Ebcvhga861245530 2.16840.1.623310.3.579.2.763869-02-3518Lcvvhmm439615876 2.16840.1.179048.3.579.2.197340-45-9042Yioesrj274877795 2.16840.1.039010.3.579.2.650165-00-2867Wicycbd30665970 2.16840.1.721260.3.579.2.524895-07-9953Rmbejgu83537864 2.16840.1.888526.3.579.2.408578-92-9929Spdxonl1863384 2.840.1.634050.3.579.2.1259[facility] [id number] 0m4o9ier-e179-1605-k6yx-0218v3874dbfNdcewfm1227989 2.16.840.1.545755.3.579.2.217Krdczrm180431773 11azl366-011b-9k59-96e3-013rm2y70td8Hioskdp85381179 2..840.1.870058.3.579.2.580Lidirmj43970189 2..840.1.176598.3.579.2.531 Qyntbwo75900051 2..840.1.825505.3.579.2.698Rzsmbaf29775283 2..840.1.935309.3.579.2.531 Social History DateTypeDetailFacilityStart: 10-05-2021 End: 45-45-9316Bkazzoq smoking statusNever smoked tobacco (finding)[facility] Tobacco smoking statusNeverExecutive [facility] start: 11-05-2020 End: 60-52-9381Wif Assigned At BirthMaleExecutive [facility] start: 08-24-2011 End: 46-71-5233Mgqthcz use and exposureSmokeless tobacco non-userMetroHealth Start: 12-07-2017 End: 66-25-9231Sgtfcey intakeNot AskedMetroHealthStart: 67-25-6280Khl Assigned At BirthNot on fileMetroHealthStart: 80-58-6370Izxslsr SDOH Social Connections Tjfrq3NtidgQafauqCoelz: 97-81-4117Cnhxcfn SDOH Social Connections Get Together2 [facility]HealthStart: 37-11-1578Ltfvugk SDOH Social Connections Sbdsio46WdzyiDloxbx Start: 41-33-1942Yaqwkrjse58CrtjjOvnukpPchvm: 04-26-2023 End: 02-14-3197Ducekwt intakeCurrent drinker of alcohol (finding)[facility]: 11-05-2020 End: 23-83-1422Kdtorel of Social functionWilson Healthtart: 12-04-2017 Alcohol CommentsocialWilson Healthtart: 66-49-5009Nan Assigned At UC HealthHow often to you have a drink containing alcohol?Monthly or lessNOMS HealthcareHow many standard drinks containing alcohol do you have on a typical day?1 or 2NOMS HealthcareHow often do you have 6 or more drinks on 1 occasion?WeeklyNOMO HealthcareStart: 07-29-2012 End: 98-69-5890JywJjxv (finding)[facility] WriteReader ApS SystemStart: 16-34-1796Mmfonq identityIdentifies as male gender (finding)[facility] SystemWithin the last year, have you been [...] Procedure CodeEquipment CodeEquipment Original TextEquipment IdentifierDatesBrng Tib 52wcz75bp 0d Kn Ant - [id number]: 35-31-3394Fwipco Bn Palacos Radpq 40g Rpl [id number] - [id number]: 59-60-7541Hv Tib 79mm Cocr Kn I Beam - [id number]: 61-11-0018Uwaf Fem Kn Lt 70mm Cr Cmnt - [id number]_impStart: 14-13-3832Ryvl Ptlr Thn 34mm 3 Pg Kn Ser - [id number] Start: 09-05-2016 Goals DatePatient GoalDesired Activity/StatePersonal health goalComment on above: Evaluation of progress towards goal: Maximize work with PT at discharge to strengthen L knee Functional Status XdniYpmswekliuTjhtasXuyhvpwb39-83-8560Bubdiwyyct StatusN/AExecutive [facility]11-19-2024Functional StatusN/AFLutheran Hospital General Surgery Refstbrb10-65-7005Hrtvnlwhmu StatusN/[facility] Surgery Jextobvq77-79-8000Vvywtppjqj StatusN/AExecutive [facility]09-18-2023Functional StatusN/AExecutive [facility]03-10-2023Functional StatusN/AExecutive [facility] Hospitalue10-26-2022Are you deaf, or do you have serious difficulty hearingNo 07/20/2022 2:51 PM Jovita Lopez MD No PkkapFapnro22-79-4805Zgd you blind, or do you have serious difficulty seeing, even when wearing glassesNo 07/20/2022 2:51 PM Jovita Lopez MD NoMetrMansfield Hospital 96-88-3914Ny you have serious difficulty walking or climbing stairsYes 07/20/2022 2:51 PM Jovita Lopez MD HbiMmjltCfusne55-97-4725Vm you have difficulty dressing or bathingNo 07/20/2022 2:51 PM Jovita Lopez MD No AlithBxdzgo03-71-1918Twrapez of a physical, mental, or emotional condition, do you have difficulty doing errands alone such as visiting a physician's office or shoppingYes 07/20/2022 2:51 PM Jovita Lopez MD [facility] Mental Status BfoqVjrqmaqoyqZuytexGwhmpnyx16-16-2433Eeoxrae of a physical, mental, or emotional condition, do you have serious difficulty concentrating, remembering, or making decisionsYes 07/20/2022 2:51 PM Jovita Lopez MD [facility] Clinical Notes 04-07-2022 to 06-11-2025 Note Date & IzfmTpshHejckjnm11-62-9912 Miscellaneous Notes* Telephone Encounter - Margaret Quintanilla - 06/11/2025 3:39 PM EDT Pt signed consent for Rt TKA 08/06/25-pt called today stating he has to cancel surgery as is changing hospitals, new insurance will not be covered with CAF. Surgery canceled / all notified. documented in this encounterMercy Health [facility]erm[facility] Hospital09-17-2025 Telephone encounter Note* Telephone Encounter - Margaret Quintanilla - 06/11/2025 3:39 PM EDT Pt signed consent for Rt TKA 08/06/25-pt called today stating he has to cancel surgery as is changing hospitals, new insurance will not be covered with CAF. Surgery canceled / all notified. [facility] WriteReader ApS Hbqpgn49-64-4411 History of Present illness Narrative* Román Dawson [...] 6 months (around 12/09/2025). documented in this encounterFitzgibbon HospitalYlmjwrfdlk78-52-7241 Evaluation note* Diagnosis Onset Date Resolution Status Admit Date Primary osteoarthritis of right knee acuteAugust 2024 10:39am [facility] Work Phone: [phone] 936-882408-19-2025 Evaluation note* Diagnosis Onset Date Resolution Status Admit Date Primary osteoarthritis of right knee acuteAugust 2024 10:39amHypersomniaacuteOctober 2024 4:26pmLow back pain at multiple sitesacuteOctober 2024 4:26pmOSA (obstructive sleep apnea)acuteOctober 2024 4:26pmSnoringacuteOctober 2024 4:26pmPrimary osteoarthritis of right kneeacuteOctober 2024 11:13am [facility] Work Phone: [phone]) 698-572205-27-2025 History of Present illness Narrative* Osmin Anthony [...] replacement. He has an appointment with his Unemployment Inspector coming up and I explained that he [...] also discussed. Cornell meet with the surgical scrub technologist to schedule the procedure. Informed consent obtained. His knee was re-injected today. Informed consent obtained. Return in about 3 months (around 05/21/2025) for X-Ray-Right Knee, Post Op. Pat was advised to contact the office if there are any problems, questions, or concerns. *I have seen and evaluated the patient today with my physician purchasing assistant and agree with all aspectsof the [...] via MyChart?: Immediate [1] documented in this encounterCincinnati Shriners HospitalLiquid Air Lab Nolpkp00-06-7402 [facility] Chief Complaint: [...] days., Disp: , Rfl: vitamin B complex 114-2-126-2-2 mg/mL injection, Inject into the shoulder, thigh, [...] reversible ischemia. Ejection fraction is normal. Transesophageal Echocardiogram-[facility] Name: VIANEY LACEY Study Date: 07/11/2023 12:24 PM B/P: 104 mmHg/74 mmHg HR: Date of : 1960 Location: [facility] Height: 68 in. Age: 63 year(s) Patient Room : Weight: 189 lb. Gender: Male Patient Status: OutPt BSA: 2 m2 Indication: Atrial Fibrillation, Pre-Cardioversion Examination: JAMIN (Transesophageal Echo / CFI) Image Quality: Good Patient Consent: Informed, written consent was obtained for the procedure s p @ c 3 Exam Location (more content not included)...[facility] 10-21-2024 Hospital Discharge instructions Patient Education [...] urethra. Follow these instructions at home: Take jqdr-hey-ygsvvrt and prescription medicines only as told by [...] provider. Document Revised: 03/30/2022 Document Reviewed: 03/30/2022 [email or web address] Patient Education 2023 [employer] (formerly known as [employer]). Follow Up Care 10/16/2023 14:07:51 With:HERRERA PRIETO, Vianey Crawford, URL Address: [facility] [address] , [place] [address]- [phone] When: Unknown Comments:1 yr w/ PSA and T level [facility] 01-27-2025 NotePatient Education Urology Benign Prostatic [...] Follow these instructions at home: ??? Take sdfu-cxj-dfaocko and prescription medicines only as told by [...] symptoms do not get (more content not included)...[facility]01-14-2025 History of Present illness Narrative* Osmin Anthony [...] evaluated the patient today with my physician purchasing assistant and agree with all aspectsof the [...] created via procedure documentation [facility] NoteGeneral Surgery Office/Clinic Note Chief Complaint consultation for foreign body [facility] Staff 64 year old male presents on [...] Recorded SARS-CoV-2 (COVID-19) mRNA BNT-162b2 vax 11/2019 RecordedUniversity Hospitals Geneva Medical CenterComment on above:Result Comment: Electronically Signed By: Shawanda MEJIA MD\Date and Time Signed: 08/13/24 21:11 [id number] History of Present illness Narrative* Sage Goode, [...] was counseled on the risks of stroke, [place], and sudden with NANCY, along with the [...] to clinic: 2 months documented in this encounterFitzgibbon [id number] NoteUT Electrophysiology Consult Note Reason for visit: [...] Box isolaton+ Substrate modification for discrete mechanistic patrol driver of AF. 2. Atrial flutter s/p [...] function. 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 They are weaning of amantadine which [...] Year: No Utilities: Not At Risk (11/16/2023) [facility] Utilities Threatened with loss of utilities: [...] route for 90 days. vitamin B complex 418-8-975-2-2 mg/mL injection Inject into the shoulder, thigh, [...] daily as directed. (Pa (more content not included)...[facility] 06-12-2024 History of Present illness Narrative* [...] 1 year (around 06/12/2025). documented in this encounterFitzgibbon [id number] History of Present illness Narrative* Osmin Anthony [...] evaluated the patient today with my physician purchasing assistant and agree with all aspectsof the [...] created via procedure documentation documented in this encounterMer[facility]08-13-[facility]24 NoteGeneral Surgery Office/Clinic Note Chief Complaint [...] prior to procedure. 2. Chronic anticoagulation (Z79.01: intermediate (current) use of 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s) see # 1 [...] Abuse - Denies Substa (more content not included)...[facility] Geneva Medical CenterComment on above:Result Comment: Electronically Signed By: ROBERTO PRIETO, Shawanda Taylor.kusum\Date and Time Signed: 05/07/24 15:50 [id number] History of Present illness Narrative* Osmin Anthony [...] evaluated the patient today with my physician purchasing assistant and agree with all aspectsof the [...] created via procedure documentation documented in this encounterMercy [facility]erm[facility]01-22-2024 Hospital Discharge instructions Patient Education 10/16/2023 [...] provider. Document Revised: 01/20/2022 Document Reviewed: 01/20/2022 aBIZinaBOX Patient Education 2022 QUALIA (formerly known as LocalResponse). Follow Up Care 07/31/2023 10:30:59 With:HERRERA PRIETO, Vianey Crawford, CHRISTOFERL Address: [facility] [address] , [place] [address]- When:Within 1 Year(s) Comments:w/AARON [facility] Evaluation note* Encounter Date Diagnosis [...] I advised him to avoid NSAIDs or nduwzms-snv-gubhdlk supplements. This deanna with the importance of [...] (ICD-10 - G47.33)Continue follow-up with the specialist. [facility] Other 10-17-2023 History general Narrative - Reported* Type Description Date Medical History FATIGUE Medical HistoryEDEMASurgical HistoryCARDIO JWBTGIG7207/11/2023Surgical HistoryLEFT KNEE REPLACEMENTSurgical HistoryC5-C6 PLATE AND SCREWSSurgical HistoryDOUBLE HERNIA REPAIRSurgical HistoryRIGHT SHOULDER SCOPESurgical HistoryCOLONOSCOPY Surgical HistoryCYSTO SCOPEHospitalization HistorySEE ABOVE [facility] Other 09-18-2023 Hospital Discharge instructions Patient Education [...] therapy. Follow these instructions at home: Take elun-mgh-wfipcct and prescription medicines only as told by [...] provider. Document Revised: 05/13/2021 Document Reviewed: 05/13/2021 aBIZinaBOX Patient Education 2022 QUALIA (formerly known as LocalResponse). Follow Up Care 05/04/2023 10:34:04 With:HERRERA PRIETO, Vianey Crawford, URL Address: [facility] [address], [place] [phone] When:Within 6 Month(s) Comments:w/Testosterone Level, PSA and CBC [facility] 08-02-2023 NoteHNO ID: [id number] Author: Shawanda Hernandez PA-C Service: ? Author Type: Physician Transportation Security Screener Type: Progress Notes Filed: 04/26/2023 11:40 AM [...] disc disease CVA (cerebral vascular accident) ([facility]) due to head trauma Dysarthria Eczema Hypothyroidism [...] Full Oblique Extension With (more content not included)...[facility] 04-26-2023 History of Present illness Narrative* [...] 2023 TIME: 11:15 AM documented in this encounterTrihealth [facility] Sam[facility]03-10-2023 Hospital Discharge instructions Patient Education 12/02/2022 [...] urethra. Follow these instructions at home: Take scyj-qab-qfpelom and prescription medicines only as told by [...] 09/11/2006 Document Revised: 08/06/2019 Document Reviewed: 10/16/2017 aBIZinaBOX Patient Education 2020 QUALIA (formerly known as LocalResponse). Follow Up Care 11/01/2022 10:29:54 With:HERRERA PRIETO, Vianey Crawford, URL Address: [address] [place] [address]- When: Unknown [facility] 11-18-2022 History of Present illness Narrative* Aarti Kelsey MA, SHANNAN, [employer] - 08/12/2022 12:27 PM EST SPEECH LANGUAGE [...] stated should already be in the system. [employer] was speaking with patient's spouse via phone conversation attempting to troubleshoot and bypass the preliminary questionnaires. However, it was unsuccessful. [employer] sent patient's spouse a direct link to her cell phone to connect to video visit and the same issues arose. Patient was connected to [employer] and using an iPad in home setting. The iPad did not successfully pass the hardware test and patient/patient's spouse were never able to successfully log on. [employer] provided patient/patient's spouse the [facility] Support Team's contact information to reach out for further assistance with log on issues. [employer] will e-mail patient's spouse/patient information regarding memory strategies, etc to help in the home setting (patient's spouse reported patient tends to misplace belongings, such as keys, etc and could use a refresher on the strategies. Patient's spouse stated she will take a look at the strategies and go from there with scheduling anything further. [employer] provided patient/spouse with our direct line to SR Therapy dept if she has any further questions/concerns or needs to schedule. Patient left without being seen this date. documented in this [id number] Instructions* Patient Instructions* Jovita Virk MD - 07/20/2022 2:49 PM EDT -Get the sleep apnea addressed -Hold amantadine -Add memantine 5mg daily. -External referral for brain MRI. -Speech therapy for cognitive strategies. -R knee surgery. -F/up 1 year, sooner if needed. documented in this [id number] History of Present illness Narrative* Jovita Virk [...] 200 mg into the muscle once amonth. 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 Last available brain imaging [id number] showed ventriculomegaly that was deemed not hydrocephalus [...] Risk protocol implemented: No documented in this [id number] Telephone encounter Note* Telephone Encounter - Renetta [...] PCP on file No PCP on file [id number] Miscellaneous Notes* Telephone Encounter - Renetta Boyer [...] Appointments Appointment Date:02/01/2022 10:00:00 AM Scheduled Provider: Location:[facility] Appointment Type:URO Nurse Visit Appointment Date:03/01/2022 09:00:00 AM Scheduled Provider:Saeed Cantu Jr., MD Location:[facility] Appointment Type:URO Office Visit Appointment Date:04/05/2022 11:15:00 AM Scheduled Provider:Saeed Cantu Jr., MD Location:[facility] Appointment Type:URO Office Visit [facility] evaluation + Plan note Future Appointments Appointment Date:03/01/2022 09:00:00 AM Scheduled Provider:Saeed Cantu Jr., MD Location:[facility] Appointment Type:URO Office Visit Appointment Date:04/05/2022 11:15:00 AM Scheduled Provider:Saeed Cantu Jr., MD Location:[facility] Appointment Type:URO Office Visit [facility] evaluation + Plan note Future Appointments Appointment Date:04/05/2022 11:15:00 AM Scheduled Provider:Pepe Brunson MD, Saeed Landa Location:[facility] Appointment Type:URO Office Visit Diagnostic Tests Pending * Testosterone Level Total 03/01/22 [facility] evaluation + Plan note Future Appointments Appointment Date:07/11/2022 10:15:00 AM Scheduled Provider: Location:[facility] Appointment Type:URO Nurse Visit [facility] evaluation + Plan note Future Appointments Appointment Date:09/07/2022 10:00:00 AM Scheduled Provider: Location:[facility] Appointment Type:URO Nurse Visit [facility] evaluation + Plan note Future Appointments Appointment Date:10/05/2022 10:00:00 AM Scheduled Provider: Location:[facility] Appointment Type:URO Nurse Visit [facility] evaluation + Plan note Future Appointments Appointment Date:11/01/2022 10:00:00 AM Scheduled Provider: Location:[facility] Appointment Type:URO Nurse Visit [facility] evaluation + Plan note Future Appointments Appointment Date:11/30/2022 10:00:00 AM Scheduled Provider:Taylor Joshua MD Location:[facility] Appointment Type:URO Office Visit Diagnostic Tests Pending * CBC w/ Auto Diff 11/01/22 * Testosterone Level Total 11/01/22 [facility] evaluation + Plan note Diagnostic Tests Pending * Testosterone Level Total 12/17/22 * Testosterone Level Total 04/25/23 [facility] evaluation + Plan note Future Appointments Appointment Date:04/05/2023 10:00:00 AM Scheduled Provider: Location:[facility] Appointment Type:URO Nurse Visit [facility] evaluation + Plan note Future Appointments Appointment Date:05/30/2023 10:00:00 AM Scheduled Provider: Location:[facility] Appointment Type:URO Nurse Visit [facility] evaluation + Plan note Future Appointments Appointment Date:07/10/2023 09:30:00 AM Scheduled Provider: Location:[facility] Appointment Type:URO Nurse Visit Appointment Date:11/27/2023 09:45:00 AM Scheduled Provider:Vianey SILVERMAN MD Location:[facility] Appointment Type:URO Office Visit Diagnostic Tests Pending * Testosterone Level Total 06/12/23 * PSA Total 06/12/23 * CBC w/ Auto Diff 06/12/23 [facility] evaluation + Plan note Future Appointments Appointment Date:10/21/2024 10:15:00 AM Scheduled Provider:Vianey SILVERMAN MD Location:[facility] Appointment Type:URO Office Visit Diagnostic Tests Pending * PSA Total 10/16/23 [facility] evaluation + Plan note Future Appointments Appointment Date:10/21/2024 10:15:00 AM Scheduled Provider:Vianey SILVERMAN MD Location:[facility] Appointment Type:URO Office Visit [facility] Evaluation + Plan note Future Appointments Appointment Date:10/27/2025 10:30:00 AM Scheduled Provider:Vianey SILVERMAN MD Location:[facility] Appointment Type:URO Office Visit Diagnostic Tests Pending * PSA Total 10/21/24 * Testosterone Level Total 10/21/24 [facility] evaluation note* 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 Body mass index (BMI) 28.0-28.9, adult [facility] Height loss- Primary Loss of height documented in this encounter [facility] HospitalEvaluation noteNo assessment information availableMemorial Health [facility] Work Phone: Evaluation note* Diagnosis Onset Date Resolution Status BPH (benign prostatic hyperplasia) acuteCKD (chronic kidney disease) stage 2, GFR 60-89 ml/minacute [id number] (obstructive sleep apnea)acuteRenal cystacute [facility] Work Phone: Evaluation note* Diagnosis NANCY (obstructive [...] right knee- Primary [facility]* Diagnosis Primary osteoarthritis of right knee- Primary [facility]* Diagnosis Primary osteoarthritis of right knee- Primary [facility] encounter [facility]* Diagnosis Primary osteoarthritis of right knee- Primary [facility] in this encounter [facility]* Diagnosis Onset Date Resolution Status Admit Date Primary osteoarthritis of right knee acuteAugust 2024 10:39am [facility] Work Phone: Evaluation note* Diagnosis Sarah's disease- Primary Chronic lymphocytic thyroiditis documented in this encounter [facility] HealthcareHospital course Narrative No data available for this section [facility] Hospital Discharge instructions No data available for this section [facility] InstructionsNot on filedocumented in this encounter [facility] SystemInstructionsNot on filedocumented in this encounter [facility] SystemInstructions* Attachments The following attachments cannot be sent through Care Everywhere. * Steroid injection (Dominican) * Knee replacement (Dominican) documented in this encounterProMedica Health SystemInstructionsNot on file documented in this encounterProUniversity Hospitals [facility] SystemProgress note No data available for this section [facility] reason for referral (narrative)No reason for referral information availableKind[facility] Work Phone: Advance Directives Code StatusDate ActivatedDate [...] of brain injury (HCC) Jovita Virk MD [address] [place] [address] Referral IDStatusReasonStart DateExpiration DateVisits RequestedVisits [id number] Patient Preference Comments Brain MRI without contrast. H/o TBI 2010. Continues to struggle with cognitive deficits, fatigue, impaired balance, unimproved. Please evaluate for other structural causes of these issues. Fax report to me at [phone]. SpecialtyDiagnoses / ProceduresReferred By ContactReferred To [facility] Diagnoses Cognitive changes Late effect of brain injury (HCC) Jovita Virk MD [address] [place] [address] [address] [place] [address] Referral IDStatusReasonStart DateExpiration DateVisits RequestedVisits [id number] Review Consultation-[facility] QuestionAnswer Is this for a [...] kidney disease) stage 2, GFR 60-89 ml/min [id number] NANCY (obstructive sleep apnea) Renal cyst Additional Source Comments Reason for Visit (unrecogniz ed section and content) ReasonCommentsRefillReasonCommentsMonitoring/follow-upReasonCommentsback issue ReasonCommentsSleep PxomlBdnuylRelaknztWzknft-dzhagjepaLqbpifFnrnmycnYphkbz-gt Right knee pain - wants injection - [...] Team MemberRelationshipSpecialtyStart DateEnd Date Jovita Virk MD [address] [place] [address] PhysicianPhysical Medicine & Rehab/PM&R1Team MemberRelationshipSpecialty Start DateEnd Date Jovita Virk MD [address] [place] [address] PhysicianPhysical Medicine & Rehab/PM&R1Team MemberRelationshipSpecialty Start DateEnd Date Jovita Virk MD [address] [place] [address] PhysicianPhysical Medicine & Rehab/PM&R1Team MemberRelationshipSpecialty Start DateEnd [...] DateEnd Date Ilda Peck MD [address] [facility] [place] [address] [facility]05/13/24Team MemberRelationshipSpecialtyStart DateEnd Date Ilda Peck MD [address] [phone] PCP - [facility]Bu[facility] Center[facility] Medicine05/13/24Team MemberRelationshipSpecialtyStart DateEnd Date Ilda Peck MD [address] [facility] [place] [address] PCP - [facility] Medicine05/13/24Team MemberRelationshipSpecialtyStart DateEnd Date Ilda Peck MD [address] [place] [address] PCP - Generalmi Medicine05/13/24Team MemberRelationshipSpecialtyStart DateEnd Date Ilda Peck MD PCP - Qfamrdv92/11/16Team MemberRelationshipSpecialtyStart DateEnd Date Ilda Peck MD [address] [facility] [place] [address] PCP - Vhkljjp25/11/16Team MemberRelationshipSpecialtyStart DateEnd Date Ilda Peck MD PCP - Mqrbwjq92/11/16Team MemberRelationshipSpecialtyStart DateEnd Date Ilda Peck MD PCP - Sztftgp70/11/16Team MemberRelationshipSpecialtyStart DateEnd Date Jovita Virk MD [address] [place] [phone] PhysicianPhysical Medicine & Rehab/PM&R1Team MemberRelationshipSpecialty Start DateEnd Date Ilda Pcek MD PCP - GeneralFamily Medicine05/13/24Team MemberRelationshipSpecialtyStart DateEnd Date Ilda Peck MD PCP - GeneralFamily Medicine05/13/24Team MemberRelationshipSpecialtyStart DateEnd Date Ilda Peck MD PCP - Mdukjla59/11/16 Team Status: Active Member Role/Relationship Status Timo Peck MD Primary Care Provider Active Team Status: Inactive Member Role/Relationship Status Timo Peck MD Primary Care Provider Active Start: May 13, 2025 End: May 13, 2025Scot Hutchison II, MDAun[facility] hospitals [facility] ProviderActiveStart: May 13, 2025 End: May 13, [...] and content) DATE CREATED AUTHOR 01/27/2023 [facility] DATE CREATED AUTHOR AUTHOR'S ORGANIZ ATION 04/27/2023 [facility] DATE CREATED AUTHOR AUTHOR'S ORGANIZ ATION 09/23/2023 [facility] DATE CREATED AUTHOR AUTHOR'S ORGANIZ ATION 10/23/2024 [facility] DATE CREATED AUTHOR AUTHOR'S ORGANIZ ATION 2025 [facility] DATE CREATED AUTHOR AUTHOR'S ORGANIZ ATION 06/07/2025 [facility] DATE CREATED AUTHOR AUTHOR'S ORGANIZ ATION 06/12/2025 [facility] DATE CREATED AUTHOR AUTHOR'S ORGANIZ ATION 07/24/2025 [facility] Source Comments (unrecognize d section and content) In the event this informatio n is protected by the Federal Confidentiality of Alcohol and Drug Abuse Patient Records regulations: The Federal rules restrict any use of the information to criminally investigate or prosecute any alcohol or drug abuse patient.[facility] Goals (unrecognized section and content) Goals [...] BE BASED ON THE PRIMARY CLINICAL RECORDS. [employer] [facility]. provides no warranty or guarantee of the accuracy or completeness of information in this document.
[2025-07-25 16:02] LABS: Iron 95.0 ug/dL (65.0-175.0); Percent Iron Saturation 26.8 %; Total Iron Binding Capacity 354.0 ug/dL (250.0-450.0)
[2025-07-25 16:17] LABS: Ferritin 52.0 ng/mL (26.0-388.0)
[2025-07-26 08:09] LABS: Immunoglobulin A, Qn 122 mg/dL (61-437); Immunoglobulin M, Q 48 mg/dL (20-172)
== END 2025-07-25 15:01 | disposition home or self-care (01) ==
LOC: LAB 15:02
PROVIDERS: PCP Family Medicine; Visit Provider Internal Medicine Hematology & Oncology
DX: D72.819 Decreased white blood cell count, unspecified (principal); D69.6 Thrombocytopenia, unspecified; I10 Essential (primary) hypertension; R60.9 Edema, unspecified
CPT/HCPCS: 36415; 80053; 82728; 82784; 82785; 83540; 83550; 85025

== ENCOUNTER 2025-07-29 11:07 | Outpatient (RCR) | payer BC, MEDICARE, SELFPAY | END 2025-08-24 23:59 | disposition home or self-care (01) | LOC: HEMC 11:07 | PROVIDERS: PCP Family Medicine; Visit Provider Internal Medicine Hematology & Oncology | DX: D72.819 Decreased white blood cell count, unspecified (principal); D69.6 Thrombocytopenia, unspecified; I50.9 Heart failure, unspecified; I48.91 Unspecified atrial fibrillation; Z87.820 Personal history of traumatic brain injury; N40.0 Benign prostatic hyperplasia without lower urinary tract symptoms; Z79.01 Long term (current) use of 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s; Z80.7 Family history of other malignant neoplasms of lymphoid, hematopoietic and related tissues | CPT/HCPCS: G0463 ==

== ENCOUNTER 2025-08-22 12:53 | Outpatient (RCR) | payer BC, MEDICARE, SELFPAY | END 2025-09-24 17:00 | disposition home or self-care (01) | LOC: PT 12:53 | PROVIDERS: PCP Family Medicine; Visit Provider Orthopaedic Surgery | DX: M25.561 Pain in right knee (principal); Z96.651 Presence of right artificial knee joint | CPT/HCPCS: 97110; 97112; 97140; 97162; 97530 ==

== ENCOUNTER 2025-09-22 13:24 | Outpatient (OUT) | payer BC, MEDICARE, SELFPAY ==
--- OUTSIDE RECORDS SUMMARY | 2025-07-29 06:30 | XMS_ITS ---
Author Organization [facility] [place] Address [address] [place] [address] Care Team Providers Care Block Bolter Mule Operator Name Role Phone Nabeel Hendrickson Primary Care Provider [phone] ORAL HUBBARD Unavailable [phone] REASON FOR VISIT MD Encounters Encounter Location Date Provider Diagnosis [facility] On[facility] [address] [place] [phone] 07/29/2025 ORAL HUBBARD Plan Of Treatment No Information Progress Notes * King ADDISONDOB: [birth year] (65 yo M)Acc No.[id number]:07/29/2025 UNLOCKED PROGRESS NOTE Progress Notes Patient: Glenda CheikhMADAI King J :?ORAL HUBBARD M.D.:1960???Age:65 Y ???Sex:MaleDate:07/29/2025Phone:[phone]:[address] [place], [id number]:Nabeel Hendrickson Subjective: * Chief Complaints: * 1 . MD. * Medical History: Objective: * Vitals: Assessment: Plan: * Treatment: * * Electronic signature of ORAL HUBBARD MD on 09/22/2025 at 01:27 PM ESTSign off status: PendingVisit Status:?VOICEMSG (Voice) * Provider: Dawn HUBBARD M.D. Date: 09/28/2024 Generated for Printing/Faxing/eTransmitting on:?09/22/2025 01:27 PM EST
--- OUTSIDE RECORDS SUMMARY | 2025-09-15 06:30 | XMS_ITS ---
Author Organization The [facility] in [place] Address [address] [place] [place] [address] Care Team Providers Care Bandmill Operator Name Role Phone Nabeel Hendrickson Primary Care Provider Allergies Allergen (clinical drug ingredient) Drug/Non Drug Allergy documented on EMR Reaction Allergy Type Onset Date Status cefdinir Cefdinir diarrhea Drug Allergy ActiveciprofloxacinCiprofloxacinunknown reactionDrug AllergyActive REASON FOR VISIT Presents to office alone for documentation to get MRI L-spine approved, B-12 injection given Medications Medication SIG (Take, Route, Frequency, Duration) Notes Start Date End Date Status Eliquis 5 MG TAKE 1 TABLET BY MOUTH TWICE A D AY FOR 30 DAYS; Duration: 90 ActiveLevothyroxine Sodium 150 MCG1 tablet in the morning on an empty stomach Orally Once a day; Duration: 90 daysActiveLiothyronine Sodium 25 MCGTAKE 1/2 TABLET BY MOUTH EVERY DAY; Duration: 90 daysActiveLisinopril 10 MG1 tablet Orally Once a dayActiveTamsulosin HCl 0.4 MG1 capsule Orally Once a day; Duration: 30 daysActive Social History Tobacco Use: Social History Observation Description Date Details (start date - stop date) Never Smoker NA - NA Tobacco Use/Smoking Question Answer Notes Patient is a nonsmoker Patient is anonsmokerAUDIT-C (Standard) Question Answer Notes Did you have [...] Problem Status W/U Status Risk Notes Problem Pain at rest of left lower limb due to atherosclerosis (disorder) (40190321134314410) Atherosclerosis of [place] arteries of extremities with rest pain, left leg (I70.222) ActiveconfirmedProblemHypertensive heart failure (74715722)Hypertensive heart disease with heart failure (I11.0)ActiveconfirmedProblemDiastolic heart failure (727576614)Unspecified diastolic (congestive) heart failure (I50.30)Active confirmedProblemHeart failure (45907605)Heart failure, unspecified (I50.9)Active confirmedProblemChronic kidney disease stage 3B (disorder) (557203811)Chronic kidney disease, stage 3b (N18.32)Activeconfirmed Vital Signs Weight 178.4 lbs 09/15/2025 Height 66.5 in 09/15/2025 Blood pressure systolic 130 mm Hg 09/15/20 25 Blood pressure diastolic 80 mm Hg 025 BMI 28.36 kg/m2 09/15/2025 Encounters Encounter Location Date Provider Diagnosis [facility] [address] [place] [address] 09/15/2025 Nabeel Hendrickson Deficiency of vitami n B12 E53.8 ; Atherosclerosis of [place] arteries of extremities with rest pain, left leg I70.222 ; Hypertensive heart disease with heart failure I11.0 ; Unspecified diastolic (congestive) heart failure I50.30 ; Heart failure, unspecified I50.9 ; Chronic kidney disease, stage 3b N18.32 and Lumbar radiculopathy M54.16 Assessments Encounter Date Diagnosis (ICD Code) Assessment Notes Treatment Notes Treatment Clinical Notes Section Notes 09/15/2025 Deficiency of vitamin B12 (ICD-1 0 - E53.8) 09/15/2025therosclerosis of [place] arteries of extremities with rest pain, left leg (ICD-10 - I70.222)Pdroiq3409/15/2025Hypertensive heart disease with heart failure (ICD-10 - I11.0)- pain resolvedstabel here - monitore at ho09/15/2025 Unspecified diastolic (congestive) heart failure (ICD-10 - I50.30)No WILDE 09/15/2025Heart failure, unspecified (ICD-10 - I50.9)or exuzdpctl89/22/2025 Chronic kidney disease, stage 3b (ICD-10 - N18.32)following lasbs - better wtih off qltouife68/22/2025Lumbar radiculopathy (ICD-10 - M54.16)Hx of lumbar disk sidsase- now tiwh worengin symptoms in low back with pain radiating into legs- doing TENS and head and ice adn nsaids - no sig releif - needs MRI due to + straght leg rais and diminished patellar vvcfnz1609/15/2025OtherRecommended to rest and use a heating pad on the area. Take NSAIDs for pain as needed Plan Of Treatment Treatment Notes Assessment Notes Atherosclerosis of [place] of extremities with rest pain, left leg Stabel Hypertensive heart disease w ith heart failure - pain resolvedstabel here - monitore at Unspecified diastolic (conge stive) heart failure No WILDE Heart failure, unspecified or orthopnea Chronic kidney disease, stage 3b followi ng lasbs - better wtih off creatine Lumbar radiculopathy Hx of lumbar disk s idsase- now tiwh worengin symptoms in low back with pain radiating into legs- doing TENS and head and ice adn nsaids - no sig releif - needs MRI due to + straght leg rais and diminished patellar reflex Other Recommended to rest and use a heating pad on the area. Take NSAIDs for pain as needed Pending Test Test Name Order Date MRI LSPINE WO CON 09/15/2025 Medications Administered Medication Instructions Date of Administration Dosage Notes Cyanocobalamin mL Progress Notes * King ADDISON DaynaDOB: [birth year] (65 yo M)Acc No.[id number]:09/15/2025 Progress Note Patient: King NEWSOME :?Ryan Hatfield Henrikluz maria ([facility]), MDDOB:1960???Age: 65 Y???Sex:MaleDate:09/15/2025Phone:[phone]:[address] [place], [place]Hamja In:11:34 AM Yogi Out:12:12 PM EST Subjective: * Chief Complaints: * P resents to office alone for documentation to get MRI L-spine approvedB-12 injection given * HPI: ???Back Pain:? The patient complains of -. The symptoms have been present for1-2 days. The patient believes symptoms are injury related No. The symptoms are mild. Symptomatic treatment has included heating pad, stretching. Associated symptoms include None. * ROS: ???General/Constitutional:?Lightheadedness?denies.?Change in appetite?denies.?Weight Change?denies.?Cardiovascular:?Irregular heartbeat?denies.?Swelling in hands/feet denies.?Respiratory:?Shortness of breath?denies.?Shortness of breath with e xertion?denies.?Wheezing?denies.?Musculoskeletal:?Comments?See HPI for details.?Neurologic:?Dizziness?denies.?Fainting?denies.?Headache denies.? * Active Problem List E03.9 Hypothyroid Modified On:09/05/2023 Status:avsmftkivE58.0ADD (attention deficit disorder) Modified On:01/25/2023 Status:cilzsfzpnB06.30Sleep apnea Modified On:06/27/2023 Status:pfuelzbbhW15.9Eczema Modified On:06/27/2023 Status:qbaweomwwD88.89Other cerebrovascular disease Modified On:09/05/2023 Status:scjvecnemO50.16Lumbar radiculopathy Modified On:06/27/2023 Status:ggckyvbchA68.9Osteoarthritis of right knee Modified On:01/25/2023 Status:bnryetsepI20.00Well adult Modified On:01/25/2023 Status:utelsxwmiA22.36DDD (degenerative disc disease), lumbar Modified On:06/27/2023 Status:sqkkcbqkqD90.6Thrombocytopenia Modified On:08/24/2023 Status:uasqxdrvnP88.8B12 deficiency Modified On:11/28/2023 Status:itmlzvabwE41.1Dysarthria Modified On:01/25/2023 Status:rklgbechsT26.30Degenerative cervical disc Modified On:01/25/2023 Status:wfcsolbpgQ85.9Neutropenia Modified On:06/27/2023 Status:ipmahbkrvP00.819Leukopenia Modified On:08/24/2023 Status:uramsgfydX54.33Moderate obstructive sleep apnea Modified On:01/25/2023 Status:cjqimbtqzG18.909AB (asthmatic bronchitis) Modified On:01/25/2023 Status:yosmtubffL70.1Keratosis, seborrheic Modified On:01/25/2023 Status:yohscmeteT40.9Hypothyroidism, unspecified type Modified On:01/25/2023 Status:qesmcoxdeQ54.40Shoulder impingement syndrome Modified On:01/25/2023 Status:jwiwfgmbhQ16.8Deficiency of vitamin B12 Modified On:12/28/2023 Status:foqurkfauX32.8ADD (attention deficit disorder) Modified On:06/27/2023 Status:ebuaxoixkX75.0Arthritis of both knees Modified On:06/27/2023 Status:nbduxzbjhE22.10Osteoarthritis of knee, unilateral Modified On:06/27/2023 Status:rgkrbjczdA83.50Low back pain, unspecified Modified On:01/25/2023 Status:vbdilfkhdO04.9Melanocytic nevi, unspecified Modified On:01/25/2023 Status:jplbtosjaR67.89Other cerebrovascular disease Modified On:01/25/2023 Status:vegxglaynR66.1Orthostatic hypotension Modified On:01/25/2023 Status:fionzwsirR34.01Aphasia Modified On:06/27/2023 Status:ubdbdadndF85.326DContusion and laceration of left cerebrum with loss of consciousness greater than 24 hours without return to pre-existing conscious level with patient surviving, subsequent encounter Modified On:01/25/2023 Status:sfrvgbprgY05.91Atrial fibrillation Modified On:11/28/2023 Status:jcmzhmhzlB98.00Spinal stenosis Modified On:06/27/2023 Status:imcohvicnT13.9Edema Modified On:08/24/2023 Status:azqfuwpxgO51.2Cervicalgia Modified On:03/14/2023 Status:llpyggkfuR66.23Impacted cerumen, bilateral Modified On:01/27/2023 Status:qauqxtqapA88.91Unspecified atrial fibrillation Modified On:06/27/2023 Status:bhstkqjfnT46.511Pain in right shoulder Modified On:03/14/2023 Status:jrbzhawctR95.512Pain in left shoulder Modified On:03/14/2023 Status:lbpxpvanxG11.890Loss of height Modified On:03/14/2023 Status:zeeebwgymF12.011Primary osteoarthritis, right shoulder Modified On:03/15/2023 Status:brhqqocyaP44.012Primary osteoarthritis, left shoulder Modified On:03/15/2023 Status:ddququmzdE41.34Other intervertebral disc degeneration, thoracic region Modified On:03/15/2023 Status:qfmrisbuqX37.80Other forms of scoliosis, site unspecified Modified On:03/15/2023 Status:lkkjeqzvmT28.30Sleep apnea, unspecified Modified On:07/20/2023 Status:hvzsinkliB65.41Acute combined systolic (congestive) and diastolic (congestive) heart failure Modified On:08/24/2023 Status:vtxjgemwzF96.30CHF (congestive heart failure), NYHA class I, unspecified failure chronicity, diastolic Modified On:09/05/2023 Status:hvccfmdvpR24Mcamgeurtfw essential hypertension Modified On:09/05/2023 Status:hwfpihkwjF73.672Foot pain, left Modified On:10/20/2023U Status:paqgtzutgH85.672Left foot pain Modified On:10/31/2023 Status:kilwprftnR54.00Raynaud's syndrome without gangrene Modified On:10/31/2023 Status:vflnlcedgE38.9Vitamin D deficiency, unspecified Modified On:12/28/2023 Status:tflnilldqG67.819Decreased white blood cell count, unspecified Modified On:01/23/2025 Status:tbqmmkzmpM27.222Atherosclerosis of [place] arteries of extremities with rest pain, left leg Modified On:09/15/2025 Status:kwtgdcpshA34.0Hypertensive heart disease with heart failure Modified On:09/15/2025 Status:abiwwgekvY94.30Unspecified diastolic (congestive) heart failure Modified On:09/15/2025 Status:zkhzfyssbT55.9Heart failure, unspecified Modified On:09/15/2025 Status:eyixmjqywY85.32Chronic kidney disease, stage 3b Modified On:09/15/2025 Status:confirmed * Medical History: * Surgical History: L eft knee replacement left knee replacement Fusion Cervical Spine right shoulder Left inguinal hernia repair neck surgery hernia repair Right Labrum repair JAMIN 07/11/23Colonoscopy 05/29/24Right total knee arthroplasty 08/04/25 * Hospitalization/Major Diagno stic Procedure: b rain trauma 2010 * Family History: F ather: , Lymphoma- cancer spleenCOPD, diagnosed with Cancer. M other: , Cancer breast, lung cancer, brain cancer, diagnosed with Cancer. S on(s): alive. D aughter(s): alive. One sister MS- 71 One brother - drug/alcohol abuse. * Social History: ???Tobacco Use:?Tobacco Use/Smoking?Patient is a?nonsmoker ???Drug/Alcohol:?AUDIT-C (Standard)?Did you have a drink containing alcohol in the past year??Yes ?How often did you have a drink containing alcohol in the past year?? Monthly or less (1 point) ?How many drinks did you have on a typical daywhen you were drinking in the past year??1 or 2 drinks (0 point) ?How often did you have six or more drinks on one occasion in the past year??Never (0 point) ?Points?1 ?Interpretation?Negative * Medications: T akingEliquis(Apixaban) 5 MG Tablet TAKE 1 TABLET BY MOUTH TWICE A DAY FOR 30 DAYS Levothyroxine Sodium 150 MCG Tablet 1 tablet in the morning on an empty stomach Orally Once a day Liothyronine Sodium 25 MCG Tablet TAKE 1/2 TABLET BY MOUTH EVERY DAY Lisinopril 10 MG Tablet 1 tablet Orally Once a day Tamsulosin HCl 0.4 MG Capsule 1 capsule Orally Once a day Taking Eliquis(Apixaban) 5 MG Tablet TAKE 1 TABLET BY MOUTH TWICE A DAY FOR 30 DAYS Taking Levothyroxine Sodium 150 MCG Tablet 1 tablet in the morning on an empty stomach Orally Once a day Taking Liothyronine Sodium 25 MCG Tablet TAKE 1/2 TABLET BY MOUTH EVERY DAY Taking Lisinopril 10 MG Tablet 1 tablet Orally Once a day Taking Tamsulosin HCl 0.4 MG Capsule 1 capsule Orally Once a day DiscontinuedAmoxicillin-Pot Clavulanate 875-125 MG Tablet 1 tablet Orally every 12 hrs Medication List reviewed and reconciled with the patientDiscontinued Amoxicillin-Pot Clavulanate 875-125 MG Tablet 1 tablet Orally every 12 hrs Medication List reviewed and reconciled with the patient * Allergies: C iprofloxacin: unknown reactionCefdinir: diarrheano[Allergies Verified] Objective: * Vitals: W t:178.4lbs, Ht: 66.5 in, BP:130/80mm Hg, BMI:28.36Index, Ht-cm: 168.91 cm, Wt- k.92 kg. * Examination: ???General Examination: ?GENERAL APPEARANCE:?in no acute distress, well developed, well nourished.?LUNGS:? clear to auscultation bilaterally.?CARDIO:? S1, S2 normal, no murmurs, rubs, gallops.?MUSCULOSKELETAL:?Poor romin loqw back due to paina dn + SLR on R - to 30- 40 degrees - and + diminished patellar reflex.?EXTREMITIES:? no clubbing, cyanosis, or edema.?NEUROLOGIC:? alert, oriented to time, place, & person. ??? Assessment: * Assessment: 1.?Deficiency of vitamin B12 - E53.8 (Primary)???2.?Atherosclerosis of [place] arteries of extremities with rest pain, left leg - I70.222???3.?Hypertensive heart disease with heart failure - I11.0???4.?Unspecified diastolic (congestive) heart failure - I50.30???5.?Heart failure, unspecified - I50.9?? 6.?Chronic kidney disease, stage 3b - N18.32???7.?Lumbar radiculopathy - M54.16??? Plan: * Treatment: Notes: Stabel??2.?Hypertensive heart disease with heart failure? Notes: - pain resolvedstabel here - monitore at ??3.?Unspecified diastolic (congestive) heart failure? Notes: No WILDE??4.?Heart failure, unspecified? Notes: or orthopnea??5.?Chronic kidney disease, stage 3b? Notes: following lasbs - better wtih off creatine??6.?Lumbar radiculopathy?Imaging: MRI LSPINE WO CON Notes: Hx of lumbar disk sidsase- now tiwh worengin symptoms in low back with pain radiating into legs- doing TENS and head and ice adn nsaids - no sig releif - needs MRI due to + straght leg rais and diminished patellar reflex??7.?Others? Notes: Recommended to rest and use a heating pad on the area. Take NSAIDs for pain as needed? * Therapeutic Injections: Cyanocobalamin : 1 mL (Route: Intramuscular) given by Nancy Brian , MR on right deltoid (Deficiency of vitamin B12) * Procedure Codes: 9 [phone] THERAP.INJ. OF MED. INTRAMUSCULAR OR COIIPMFCOQBAN9537 VITAMIN B-12 < 1000 MCG * Preventive Medicine: ??Screenings/Counseling:?BMI ACTION PLAN?Above Normal BMI Follow-up?Dietary management education, guidance, and counseling See treatment section of progress note for complete details of management plan. ?FALL RISK SCREENING?Fall Risk Assessment:?No falls in the past year * * Sign off status: CompletedVisit Status:?CHK (Check Out) true * Provider: Jay Hendrickson ([facility])MD Date: 1 11/16/2024 Generated for Printing/Faxing/eTransmitting on:?09/22/2025 01:27 PM EST History and Physical Notes * Examination CategorySub-CategoryDetailNotesCategory NotesGeneral ExaminationGENERAL APPEARANCE:in no acute distress, well developed, well nourishedCARDIO:S1, S2 normal, no murmurs, rubs, gallopsLUNGS:clear to auscultation bilaterally NEUROLOGIC:alert, oriented to time, place, & personEXTREMITIES:no clubbing, cyanosis, or edemaMUSCULOSKELETAL:Poor romin loqw back due to paina dn + SLR on R - to 30-40 degrees - and + diminished patellar reflex
--- NOTE | 2025-09-22 13:27 | MR_ITS ---
The [address] [address] Patient Name: VIANEY DAVIS MRN: [id number] date: 1960 Sex: M Assigned Patient Location: MRI Current Patient Location: Accession/Order Number: [id number] Exam Date: 09/22/2025 13:45 Report Date: 09/23/2025 00:42 At the request of: ILDA PECK MD Procedure: MR lumbar spine wo con MR lumbar spine wo con 09/22/2025 2:17 PM SIGNS AND SYMPTOMS: Acute low back pain radiating into right hip and right leg PROTOCOL: Multiplanar multisequence MR images of the lumbar spine without IV contrast COMPARISON: None. FINDINGS: There is grade 1 spondylolisthesis of L4 upon L5 measuring 1.2 cm with severe disc height loss. There is accompanying Modic type II fatty endplate degenerative change. There is preservation of vertebral body heights. There is moderate disc height loss at L5-S1 with mild disc height loss at L1-L2. The conus terminates at the inferior endplate of the L1 vertebral body level. No epidural or paraspinous fluid collection is appreciated. At T12-L1: There is a normal disc, central canal, and neural foramen. At L1-L2: There is a circumferential disc bulge with a superimposed right central and subarticular disc protrusion contributing to moderate to severe spinal canal stenosis. There is mild bilateral neural foraminal narrowing. At L2-L3: There is a circumferential disc bulge with facet hypertrophy and ligamentum flavum thickening. There is moderate spinal canal stenosis with mild bilateral neural foraminal narrowing. At L3-L4: There is a broad-based disc bulge with facet hypertrophy and ligamentum flavum thickening. There is mild spinal canal stenosis with no significant neural foraminal narrowing. At L4-L5: There is grade 2 spondylolisthesis of L5 upon S1. There is facet hypertrophy with a circumferential disc bulge. There is mild spinal canal narrowing. There is moderate to severe right and severe left neural foraminal narrowing with mass effect on the exiting L4 nerve roots bilaterally, left greater than right. At L5-S1: There is a broad-based disc bulge with facet hypertrophy. There is mild spinal canal stenosis with endplate osteophyte formation contributing to severe right and mild left neural foraminal narrowing. Is mass effect on the exiting right L5 nerve roots. MR/MR lumbar spine wo con IMPRESSION: At L1-L2: There is a circumferential disc bulge with a superimposed right central and subarticular disc protrusion contributing to moderate to severe spinal canal stenosis. There is mild bilateral neural foraminal narrowing. At L4-L5: There is grade 2 spondylolisthesis of L5 upon S1. There is facet hypertrophy with a circumferential disc bulge. There is mild spinal canal narrowing. There is moderate to severe right and severe left neural foraminal narrowing with mass effect on the exiting L4 nerve roots bilaterally, left greater than right. At L5-S1: There is a broad-based disc bulge with facet hypertrophy. There is mild spinal canal stenosis with endplate osteophyte formation contributing to severe right and mild left neural foraminal narrowing. Is mass effect on the exiting right L5 nerve roots. Impression dictated by: Sinan Ferrell M.D. 09/23/2025 12:42 AM Dictation Location: [place] [address] Electronically authenticated by: [id number] Y Date: 09/23/2025 00:42
--- OUTSIDE RECORDS SUMMARY | 2025-09-22 13:27 | XMS_ITS | Clinical Summary ---
Author Organization [facility] Address [address] [place] [address] Care Team Providers Care Fuel Cell Designer Name Role Phone Ryan Hendrickson MD Primary Care Provider [phone] Allergies No known active allergies Medications MedicationSigDispense QuantityRefillsLast FilledStart DateEnd DateStatus liothyronine (Cytomel) 25 mcg tablet Take 0.5 tablets by mouth in the morning.02/08/2017Active tamsulosin (Flomax) 0.4 mg 24 hr capsule Take 1 capsule every day by oral route for 90 days.02/08/2017Active amantadine (Symmetrel) 100 mg capsule Take 1 capsule every day by oral route for 30 days.12/25/2017Active vitamin B complex 145-0-581-2-2 mg/mL injection Inject into the shoulder, thigh, [...] combined systolic (congestive) and diastolic (congestive) heart wclmaso4107/16/2024DD (attention deficit disorder)07/16/2024MI 28.0-28.9,adult 07/16/2024hronic wakcsoqrvhhggwr84/22/7925Eexgomkldt36/22/2024enal cyst 07/16/20240475Rbarumuqjjv39/14/2024LMD (periodic limb movement disorder)07/08/2024 Autoimmune palbkeopkid64/04/2024Vision xpaknkj3511/17/2023Stage 2 chronic kidney cssytko1111/17/2023 Assessment & Plan (11/17/2023 4:09 PM EST): Renal condition is stable Mild mitral bclmyvqprwmha58/22/2024Nonrheumatic tricuspid valve regurgitation 11/16/2023Status post ablation of atrial jckhzonezgrb17/22/2024ain in limb /01/2024Urge fxvnucnwunky72/05/202402/7001Qxqasiv99/04/2023 06/28/2023PH with urinary zpbffhquiog61Transient ischemic attack (TIA)egeneration of intervertebral disc06/28/2023 06/28/20239432Etofxebkdh41ED (erectile dysfunction)06/28/2023 06/28/2023H/O head azpyup70Hypogonadism male06/28/2023 06/28/20235875Pftlptvnfv19Lower back pain Lumbar cbzdcltzvuozh45NeutropeniaOther specified behavioral and emotional disorders with onset usually occurring in childhood and mohksbqwebz50Orthostatic xnwniuevpop15/04/2023 06/28/20234020Txcndbmq90rotein in urine Hfnrpix93Weak urine mjfrjm52hest pain 06/28/2023rthritis of both kneesEczema Sleep apneaSpinal dttyvmgk2012 deficiency bsolute wtvwii15Thrombocytopenia trial doirfkhehbwu27/08/2017Status post total left knee lznuizmmsef78Osteoarthritis of knee Traumatic brain sgctwr46ognitive ctxavyrh51 Encounter for vocational qtosrps29Specific academic or work inhibition as adjustment aalcdncj89Muscle /12/2010 10/04/2023Attention or concentration wtnivod41ognitive communication wjtefjm01Lack of kfkavwbutikf28/11/2011 06/28/20238377Ewcxsea63 Overview (06/28/2023): Post traumatic Amnesia Cervical vertebral fowtgw07 Overview (06/28/2023): History of Cervical vertebral fusion C5-C6 Odargzokkcmksw21Traumatic zvmboxgftfkmzai54 Viral wart, uskkrypxotg00Vitiligo Resolved Problems ProblemNoted DateDiagnosed DateResolved DateAsthmatic vobmcrkwgx91/04/2023/ Family History Medical HistoryRelationNameCommentsCancerFatherCoronary artery diseaseFather StrokeFatherCancerMotherDiabetesMotherRelationNameStatusCommentsBrotherDeceased FatherDeceasedMotherDeceasedSisterDeceased Social History Tobacco UseTypesPacks/DayYears UsedDateSmoking Tobacco: NeverSmokeless Tobacco: Never Tobacco Cessation:Counseling Given: Not Answered Alcohol UseStandard Drinks/WeekCommentsYes0 (1 standard drink = 0.6 oz pure alcohol)occasionalAHC UtilitiesAnswerDate RecordedIn the past 12 months has the [employer], [employer], oil, or water [employer] threatened to shut off services in your home?11/16/2023Humiliation, Afraid, Rape, and Kick questionnaireAnswerDate RecordedWithin the last year, have you been afraid of your partner or ex-partner?No11/16/2023Emotionally AbusedNot on file11/16/2023hysically Abused Not on file11/16/2023Sexually AbusedNot on file11/16/2023Overall Financial Resource Strain (CARDIA)AnswerDate RecordedHow hard is it for you to pay for the very basics like food, housing, medical care, and heating?Not hard at all 11/16/2023UT Safety & EnvironmentAnswerDate RecordedWithin the last year, have you been afraid of your partner or ex-partner?No11/16/2023Emotionally AbusedNot on file11/16/2023hysically AbusedNot on file11/16/2023Sexually AbusedNot on file11/16/2023In the past year have you been physically or sexually abused? Unrecognized value11/16/2023TransportationAnswerDate RecordedIn the past 12 months, has lack of transportation kept you from medical appointments or from getting medications?No11/16/2023Lack of Transportation (Non-Medical)Not on file 11/16/2023Housing Stability Vital SignAnswerDate RecordedUnable to Pay for Housing in the Last YearNot on file11/16/2023Number of Places Lived in the Last YearNot on file11/16/2023In the last 12 months, was there a time when you did not have a steady place to sleep or slept in ashelter (including now)?No 11/16/2023Hunger Vital SignAnswerDate RecordedWithin the past 12 months, you worried that your food would run out before you got the money to buymore.Never true11/16/2023an Out of Food in the Last YearNot on file11/16/2023Sex and Gender InformationValueDate RecordedSex Assigned at BirthNot on fileLegal Sex Male03/23/2022 10:35 PM EDTGender IdentityNot on fileSexual OrientationNot on file Last Filed Vital Signs Vital SignReadingTime TakenCommentsBlood Ydfthduy974/85001/21/2025 9:31 AM EDT Biwdf6513/29/2025 9:31 AM XKXOfcbgbkcxjw26.5 ??C (97.7 ??F)11/17/2023 4:00 AM ESTRespiratory Sims088512/26/2023 2:08 PM EDTOxygen Dvwyqpcbec168%01/21/2025 9:31 AM EDTInhaled Oxygen Concentration--Qjbquf15.2 kg (190 lb)01/21/2025 9:31 AM EDT Yoxzxa460.6 cm (5' 6 )01/21/2025 9:31 AM EDTBody Mass Index30.67001/21/2025 9:31 AM EDT Plan of Treatment DateTypeDepartmentCare Team (Latest Contact Info)Gmkfdjchhxj81/11/2026 1:30 PM ESTOffice Visit [facility] [address] [place] [address] George Lzoa MD [address] [facility] [place] [phone] Health MaintenanceDue DateLast DoneCommentsCT Bbaxkirffjfb1959FIT-DNA 1960FIT1960FOBT1960Medicare Annual Wellness (AWV)1960 Vajevwibhmmtw1959Depression Eeyaidzdx69/30/1971Pneumococcal Vaccine: 50+ Years (1 of 2 - PCV)1978Adult Yuteirb8702/21/1981Fall Risk Screening 4COVID-19 Vaccine ( season), 09/20/2021, 12/22/2020, Additional history existsInfluenza Vaccine (#1)5110/10/2022, 07/25/2022, 08/10/2021, Additional history kclhdrOlurfpebeyp41/04/203409/12/2023 Colorectal Cancer Hldebfttu30/04/2034Zoster FzgfouayFlszarjnk39/05/2022, 04/05/2022HIB VaccinesAged OutNo longer eligible based on [...] patient's age to complete this topic Insurance * Guarantor: King Lacey TypeRelation to PatientDate of BirthPhone Billing AddressPersonal/DbekrqGqdy1960 [address] [place] [address] Advance Directives * Full Code (Latest Code Status on File) Date ActivatedDate InactivatedComments11/16/2023 4:20 11/17/2023 8:11 PM Care Teams Team MemberRelationshipSpecialtyStart DateEnd Date Ryan Hendrickson MD [address] [facility] [address] [address] [facility] - Nszqpxu88/4/23
--- OUTSIDE RECORDS SUMMARY | 2025-09-22 13:27 | XMS_ITS | Clinical Summary ---
Author Organization [facility] tem Address [id number] [address] [place] [address] Care Team Providers Care Special Education Resource Room Teacher Name Role Phone Ryan Hendrickson MD Primary Care Provider [phone] Allergies No known active allergies Medications MedicationSigDispense [...] and 1 tablet (5 mg total) before bedtime.3Active hydrALAZINE (APRESOLINE) 25 mg tablet Take 1 tablet (25 mg total) by mouth 3 (three) times a day.Active Active Problems ProblemNoted DateDiagnosed DateStatus post total left knee replacement /A-fib09/05/2016Primary osteoarthritis of right knee 09/02/2016 Family History Medical HistoryRelationNameCommentsAlcohol abuseBrotherTim O???LynnDrug abuse BrotherTim O???LynnEarly deathBrotherTim O???LynnCOPDFatherBernard O???Charito CancerFatherBernard O???LynnHeart diseaseFatherBernard O???LynnStrokeFather Bear O???LynnBreast cancerMotherPatricia O???LynnCOPDMotherPatricia O???Charito CancerMotherPatricia O???LynnDepressionMotherPatricia O???LynnHeart disease MotherPatricia O???LynnLung cancerMotherPatricia O???LynnAnesthesia problemsNeg HxRelationNameStatusCommentsBrotherTim O???LynnFatherBernard O???LynnDeceased MotherPatricia O???LynnDeceased Social History Tobacco UseTypesPacks/DayYears UsedDateSmoking Tobacco: NeverSmokeless Tobacco: Never Tobacco Cessation:Counseling Given: Not Answered Alcohol UseStandard Drinks/WeekCommentsYes4 (1 standard drink = 0.6 oz pure alcohol)ChildcareAnswerDate HqioebhoFwkvbvcxaLzucsru32/12/2019EmploymentAnswer Date UqnmrhydYxckbwlgznHafdkhd41/12/2019Purpose - LifeAnswerDate RecordedPurpose and direction in tpytFmdakkb67/11/2021ex and Gender InformationValueDate RecordedSex Assigned at NhxjnDpxu97/29/2021 10:23 PM ESTLegal TmqHryo1604/30/2015 11:39 AM EDTGender MnjtutvlYokc16/29/2021 10:23 PM ESTSexual OrientationNot on file Last Filed Vital Signs Vital SignReadingTime TakenCommentsBlood Rpwrdqiq218/7603 11:05 AM EDT Vkfhx7988 11:05 AM LXROrocmfvfrjy86.2 ??C (97.2 ??F)09/08/2016 12:34 PM ESTRespiratory Fddn683811/09/2015 8:15 AM ESTOxygen Jphazsaadx12%09/08/2016 8:15 AM ESTInhaled Oxygen Concentration--Kweebg48.5 kg (186 lb 6 oz)02/18/2025 10:20 AM GJNXzsvqr001.2 cm (5' 7 )02/18/2025 10:20 AM EDTBody Mass Index29.19 02/18/2025 10:20 AM EDT Plan of Treatment Health MaintenanceDue DateLast DoneCommentsDiabetic Ophthalmology Exam1959 Statin Use: Boealttc1959Depression Bwjepaplh78/30/1971Adult BMI Follow Up Plan1977Diabetic Foot Exam1977Fall Risk Oenvnfppl49/30/2024OVID-19 Vaccine ( season)/09/2021, 09/20/2021, 12/22/2020, Additional history existsInfluenza Qukvkul43/01/2024, 08/10/2023, 07/25/2022, Additional history existsAdult BMI Ovzumzfry97/ Tobacco Bwvmsmmpt28DTaP,Tdap and Td Vaccines (2 - Tdap) /SV ( or age 60+ yrs) (1 - 1-dose 75+ series) 2034Zoster (Shingles) DhewqrfKqavrnobu24/05/2022, 04/05/2022 Goals GoalPatient Goal TypeAssociated ProblemsRecent ProgressPatient-Stated?Author Improve mobility Tiffanie Lam, RN Note: Evaluation of progress towards goal: Maximize work with PT at discharge to strengthen L knee Medical Devices ImplantedTypeAreaManufacturerDevice IdentifierShelf Expiration DateModel / Serial / LotBrng Tib [id number] 0d Kn Ant - [id number] Implanted:Qty: 1 on 09/05/2016 by Alf [facility]BearingLeft: Knee [id number] / / [id number] Bn [place] Radpq 40g Rpl [id number] - [id number] Implanted:Qty: 2 on 09/05/2016 by Alf Anthony MD at [facility]ementLeft: Knee Walter [id number] / / [id number] Tib 79mm Cocr Kn I Beam - [id number] Implanted:Qty: 1 on 09/05/2016 by Alf Anthony MD at [facility]ENTEROrthopedic Implant Left: [id number] / / [id number] Fem Kn Lt 70mm Cr Cmnt - [id number] Implanted:Qty: 1 on 09/05/2016 by Alf Anthony MD at [facility]ENTEROrthopedic Implant Left: FkffGogygu65/02/[id number] / / [id number] Ptlr Thn 34mm 3 Pg Kn Ser - [id number] Implanted:Qty: 1 on 09/05/2016 by Alf Anthony MD at [facility]Or[facility] Implant Left: MvctDnbtpu90/01/[id number] / / [id number] Insurance Advance Directives * Full Code (Latest Code Status on File) Date ActivatedDate UttfmfigtleTaqyoidc56/12/2016 8:43 PM09/08/2016 4:31 PM Care Teams Team MemberRelationshipSpecialtyStart DateEnd Date Ryan Hendrickson MD [facility] Iekbwdt56/11/16
--- OUTSIDE RECORDS SUMMARY | 2025-09-22 13:27 | XMS_ITS | Clinical Summary ---
Author Organization [facility] Address [address] [place] [address] Care Team Providers Care Allergy And Immunology Chief Name Role Phone Ryan Hendrickson MD Primary Care Provider [phone] Allergies No known active allergies Medications MedicationSigDispense [...] 200 mg/mL injection INJECT 1ML INTRAMUSCULARLY EVERY PHJWA611Active Ascorbic Acid (VITAMIN C) 100 mg tablet Daily, Refills(s) Active omega-3s/dha/epa/fish oil/D3 (VITAMIN-D + OMEGA-3 ORAL) Take by mouth.08/31/2021ctive [place] Aspartate 20 mg cap Take 1 capsule by mouth once daily.Active Vit T1-H2-L9-B5-B6 127-1-186-2-2 mg/mL soln Refill(s) Active Active Problems ProblemNoted DateDiagnosed DateB12 suteevbtno46/29/2018Absolute ankdnx4912/06/2017 Lbiebzzpezjnnixd24/12/2018Viral warts, /04/9216Gvvwthei14/03/2005 Asthmatic bronchitisSleep apneaA-fibArthritis of both kneesLower back pain Orthostatic hypotensionVertigoCVA (cerebral vascular accident) Overview (11/30/2017): due to head trauma DysarthriaADD (attention deficit disorder)AphasiaEczemaCervical disc disease HypothyroidismSpinal stenosis Immunizations ImmunizationAdministration DatesNext Duediphtheria tetanus pertussis (DTP) vicdrgy5409/04/2021influenza (IIV4) vaccine, age 6 mo - 64 yr, quadrivalent, PF (AFLURIA, FLUARIX, FLULAVAL, FLUZONE)08/10/2021,06/30/2020influenza (ccIIV4) vaccine, age 6+ mo, quadrivalent, PF (FLUCELVAX)07/25/2022zoster (RZV) vaccine, recombinant (SHINGRIX)08/29/2022,04/05/2022 Social History Tobacco UseTypesPacks/DayYears UsedDateSmoking Tobacco: NeverSmokeless Tobacco: Never Tobacco Cessation:Counseling Given: Not Answered Alcohol UseStandard Drinks/WeekCommentsYes0 (1 standard drink = 0.6 oz pure alcohol)socialPHQ-2AnswerDate RecordedPHQ-2 zccyd408Area Deprivation IndexAnswerDate RecordedNational Score (1-100), lower number is lower risk87 04/26/2023State Score (1-10), lower number is lower robp6643Data from: https://www.neighborhoodatlas.medicine.[facility].edu/. Last address used for [address]04/26/2023Sex and Gender InformationValueDate RecordedSex Assigned at BirthNot on fileLegal UgmCwyi72/02/2012 7:29 AM EST Gender IdentityNot on fileSexual OrientationNot on file Last Filed Vital Signs Vital SignReadingTime TakenCommentsBlood Ekzernwv534/9408 11:15 AM EDT Nqvnl018204/26/2023 11:15 AM EYTVzfppwyqmmd86.7 ??C (98 ??F)04/26/2023 11:15 AM EDTRespiratory Cssu070901/03/2019 2:51 PM EDTOxygen Dcjvzfzwhu94%04/26/2023 11:15 AM EDTInhaled Oxygen Concentration--Qyvnae15 kg (191 lb 11.2 oz)04/26/2023 11:15 AM JMODrtbph999.4 cm (5' 6.3 )04/26/2023 11:15 AM EDTBody Mass Index30.66 04/26/2023 11:15 AM EDT Plan of Treatment Health MaintenanceDue DateLast DoneCommentsAnnual PCP Team Chronic Disease Visit 1977Anxiety Ifqdcmvpl75/30/1977Depression Xosflaody40/30/1977Hepatitis C Jwpmrzqpc82/30/1977Lipid Wfjnasskf26/30/1994CT Tnfmmqeayelb02/30/2004Cologuard (FIT-DNA)02/22/20041086Qmewcbfbths29/30/2004Colorectal Cancer Snjumsmme07/30/2004 Fecal Occult Blood02/22/20040475Mjipdhuuzuauf96/30/2004Pneumococcal Vaccine: 50+ (1 of 1 - PCV)2009RSV Vaccine (1 - Risk 50-74 years 1-dose series)2009 Diabetes Afhlvxwfz68Advance Directive Yekebijqmh76/01/2025 Covid-19 Vaccine ( season), 09/20/2021, 12/22/2020, Additional history existsInfluenza Vaccine (#1), 08/10/2021, 06/30/2020Prostate Cancer Screening Yvsnwunyig62/21/202709/, 2DTaP,Tdap,Td Vaccine (2 - Tdap)hingrix Vaccine Gfpfinlue03/05/2022, 04/05/2022 Procedures Procedure NamePriorityDate/TimeAssociated DiagnosisCommentsBASIC METABOLIC PANEL Dncymxp8112/04/2017 3:22 PM EDT Leukopenia, unspecified type Thrombocytopenia (HCC) Hypothyroidism, unspecified type from Last 3 Months or Most Recently Relevant to Health Maintenance Results * BASIC METABOLIC PNL (12/04/2017 3:22 PM EDT)ComponentValueRef RangeTest Method Analysis TimePerformed AtPathologist SiqqvobayXekdvxn0717 - 99 mg/dL12/05/2017 10:35 AM [facility] LABORATORYComment: The [place] Diabetes Association (ADA) provides guidance for cutoff [...] Standards of Medical Care in Diabetes 2016, [place] Diabetes Association. Diabetes Care. 2016.39(Suppl 1). CVH683 - 24 mg/dL12/05/2017 10:35 AM [facility] Creatinine1.160.73 - 1.22 mg/dL12/05/2017 10:35 AM [facility] QSSHSYWKSAJrhgpq497033 - 144 mmol/L12/05/2017 10:35 AM [facility] LABORATORYPotassium4.63.7 - 5.1 mmol/L12/05/2017 10:35 AM [facility] YKVNJSBZRZIcbxxyah73513 - 105 mmol/L12/05/2017 10:35 AM [facility] MQEFCJZCEVXC78320 - 30 mmol/L12/05/2017 10:35 AM [facility] LABORATORYAnion Ijj978 - 18 mmol/L12/05/2017 10:35 AM [facility] ZHOJSXNMJIQhpyfuy07.18.5 - 10.2 mg/dL12/05/2017 10:35 AM [facility] LABORATORYeGFR->6003 10:35 AM [facility] LABORATORYeGFR-All Other Races>60.12/05/2017 10:35 AM EDTCLEVELAND [...] StatusJames E FanningLABORATORYFinal ResultPerforming OrganizationAddressCity/State/ZIP CodePhone Number [facility] [address] [place] [address] from Last 3 Months or Most Recently Relevant to Health Maintenance Insurance Care Teams Team MemberRelationshipSpecialtyStart DateEnd Ryan Hendrickson MD [facility]12/04/17
--- OUTSIDE RECORDS SUMMARY | 2025-09-22 13:27 | XMS_ITS | Patient Health Record ---
Author Organization [facility] in [place] Address [address] [place] [place] [address] Care Team Providers Care Construction Coordinator Name Role Phone Nabeel Hendrickson Primary Care Provider zzCharenettala, Oral Unavailable [phone] STEVIE, ORAL Unavailable [phone] Allergies Allergen (clinical drug ingredient) Drug/Non Drug Allergy documented on EMR Reaction Allergy Type Onset Date Status cefdinir Cefdinir diarrhea Drug Allergy ActiveciprofloxacinCiprofloxacinunknown reactionDrug AllergyActive Results Component Value Reference Range Notes PROF 14(COMP METB) Reviewed date:07/26/2025 12:08:52 PM Interpretation: Performing Lab: Notes/Report: [facility] , Sodium 138 136-145 mmol/L Potassium4.63.5-5.1 mmol/HJapatodo59498-983 mmol/LCarbon Rxtkppo84.021.0-32.0 mmol/LAnion Gap12.4Ninqheb2051-442 mg/dLBlood Urea Hoalrqsv53.07.0-18.0 mg/dL Creatinine1.270.70-1.30 mg/dLEstimated GFR ( Pretty>60>=60 mL/min/1.73m 2Estimated GFR (Non- Ame57>=60 mL/min/1.73m 2BUN Creatinine Ratio14.2 Calcium9.88.5-10.1 mg/dLBilirubin Total0.70.2-1.0 mg/dLAspartate Amino Ogouzkszswb4830-14 U/LAlanine Schxcpfxbvzhktid2857-96 U/LAlkaline Mezmpdithkw69 46-116 U/LTotal Protein7.36.4-8.2 g/dLAlbumin Level4.23.4-5.0 g/dLGlobulin3.1 Albumin Globulin Ratio1.4Performing Lab:see noteML - [facility] LBCBC AUTO DIFF Reviewed date:02/13/2025 08:22:33 PM Interpretation: Performing Lab: Notes/Report: [facility] ,White Blood Count4.24.0-11.0 10 3/uLRed Blood Count5.214.70-6.10 10 6/uL Qzbcovmgnp87.814.0-18.0 g/gJOcdfphfuav77.142.0-54.0 %Mean Corpuscular Wigrij60.5 80.0-94.0 fLMean Corpuscular Delqzssbeq37.325.9-34.0 pgMean Corpuscular HGB Conc 34.329.9-35.2 g/dLRed Cell Distribution Width13.311.0-15.0 %Platelet Adyvj030 150-450 10 3/uLMean Platelet Volume9.59.5-13.5 fLPerforming Lab:see noteML - [facility] LBManual Differential Reviewed date:02/13/2025 08:22:33 PM Interpretation: Performing Lab: Notes/Report: [facility] ,Segmented Neutrophils % Cpnong84.043.0-75.0Lymphocytes Percent Yuilsc66.020.5- 60.0 %Monocytes Percent Manual2.01.7-12.0 %Eosinophils Percent Manual0.00.9-7.0 %Basophils Percent Manual0.00.2-2.0 %Segmented Neut Absolute Manual3.021.4-6.5 10 3/uLLymphocytes Absolute Manual1.001.20-3.80 10 3/uLMonocytes Absolute Manual 0.080.30-0.80 10 3/uLEosinophils Absolute Manual0.000.00-0.70 10 3/uLBasophils Abs Manual0.000.00-0.10 10 3/uLPerforming Lab:see noteML - [facility] LBImmunoglobulin G, Qn, Serum Reviewed date:02/13/2025 08:22:32 PM Interpretation: Performing Lab: Notes/Report: [facility] ,Immunoglobulin G, Ti965935-4889 mg/dL Performed at: [facility] [address] [id number] Urology Physician: Aleks Ferreira PhD, Phone: [phone] Performing Lab:see note - [facility] LBPSA Reviewed date:10/21/2024 08:25:24 PM Interpretation: Performing Lab: Notes/Report: [facility] ,Prostate Specific Antigen Dx0.74<=4.00 ng/mLPerforming Lab:see note - [facility] LBPROF CHEM 8 (BAS METB) Reviewed date:11/20/2024 12:37:15 PM Interpretation: Performing Lab: Notes/Report: [facility] ,Fnfzla120856-151 mmol/LPotassium4.73.5-5.1 mmol/WBocpqagn42601-772 mmol/LCarbon Fnevgec10.421.0-32.0 mmol/LAnion Gap11.0Taetcdv9415-944 mg/dLBlood Urea Nitrogen 24.07.0-18.0 mg/dLCreatinine1.140.70-1.30 mg/dLEstimated GFR ( Pretty>60 >=60 mL/min/1.73m 2Estimated GFR (Non- Glenny>60>=60 mL/min/1.73m 2BUN Creatinine Ratio21.9Myffwzd3.48.5-10.1 mg/dLPerforming Lab:see note - [facility] LBCBC AUTO DIFF Reviewed date:12/24/2024 04:34:09 PM Interpretation: Performing Lab: Notes/Report: [facility] ,White Blood Count3.64.0-11.0 10 3/uLRed Blood Count5.124.70-6.10 10 6/uL Qccautuvma37.714.0-18.0 g/aRDjwcdweybp85.942.0-54.0 %Mean Corpuscular Uzjegb66.7 80.0-94.0 fLMean Corpuscular Ropxchqign76.725.9-34.0 pgMean Corpuscular HGB Conc 35.029.9-35.2 g/dLRed Cell Distribution Width13.411.0-15.0 %Platelet Iwgbn834 150-450 10 3/uLMean Platelet Volume9.69.5-13.5 fLNeutrophils Percent Auto59.6 43.0-75.0 %Lymphocytes Percent Auto27.520.5-60.0 %Monocytes Percent Auto9.51.7- 12.0 %Eosinophils Percent Auto2.00.9-7.0 %Basophils Percent Auto1.10.2-2.0 % Immature Granulocytes Pct Auto0.30.0-0.5 %Neutrophils Absolute Auto2.11.4-6.5 10 3/uLLymphocytes Absolute Auto1.01.2-3.8 10 3/uLMonocytes Absolute Auto0.30.3-0.8 10 3/uLEosinophils Absolute Auto0.10.0-0.7 10 3/uLBasophils Absolute Auto0.00.0- 0.1 10 3/uLImmature Granulocytes Abs Auto0.010.00-0.03 10 3/uLPerforming Lab:see note - [facility] LBPROF CHEM 8 (BAS METB) Reviewed date:12/24/2024 04:34:09 PM Interpretation: Performing Lab: Notes/Report: [facility] ,Gwvqqu732721-252 mmol/LPotassium4.63.5-5.1 mmol/TFxgovnjg29131-863 mmol/LCarbon Aapczem79.521.0-32.0 mmol/LAnion Gap12.8Aeqnodx6949-368 mg/dLBlood Urea Nitrogen 25.07.0-18.0 mg/dLCreatinine1.220.70-1.30 mg/dLEstimated GFR ( Pretty>60 >=60 mL/min/1.73m 2Estimated GFR (Non- Ame60>=60 mL/min/1.73m 2BUN Creatinine Ratio20.1Sahuzfe4.28.5-10.1 mg/dLPerforming Lab:see note - [facility] Reviewed date:02/13/2025 08:22:32 PM Interpretation: Performing Lab: Notes/Report: [facility] ,Lactate Gxwofunvgamnp77705-489 U/LPerforming Lab:see note - [facility] LBPROF 14(COMP METB) Reviewed date:02/13/2025 08:22:32 PM Interpretation: Performing Lab: Notes/Report: [facility] ,Bqcukn243414-776 mmol/LPotassium4.33.5-5.1 mmol/YEfpcpfog08469-784 mmol/LCarbon Efmellc02.321.0-32.0 mmol/LAnion Gap14.4Hsyuxxv9247-428 mg/dLBlood Urea Nitrogen 25.07.0-18.0 mg/dLCreatinine1.230.70-1.30 mg/dLEstimated GFR ( Pretty>60 >=60 mL/min/1.73m 2Estimated GFR (Non- Ame59>=60 mL/min/1.73m 2BUN Creatinine Ratio20.5Ifvyxrv0.08.5-10.1 mg/dLBilirubin Total0.90.2-1.0 mg/dL Aspartate Amino Fvnkccjwpzm2848-77 U/LAlanine Jviodndgpsawhjvq4900-37 U/L Alkaline Smwjawngckj3283-566 U/LTotal Protein6.56.4-8.2 g/dLAlbumin Level3.83.4- 5.0 g/dLGlobulin2.7Albumin Globulin Ratio1.4Performing Lab:see note - [facility] LBImmunoglobulin G, Qn, Serum Reviewed date:02/13/2025 08:22:32 PM Interpretation: Performing Lab: Notes/Report: [facility] ,Immunoglobulin G, Wb724544-8703 mg/dL Performed at: - [facility] [address] [id number] Urology Physician: Aleks Ferreira PhD, Phone: [phone] [facility]forming [facility] LBPROF CHEM 8 (BAS METB) Reviewed date:02/12/2025 05:51:29 PM Interpretation: Performing Lab: Notes/Report: [facility] ,Yhewaz535501-278 mmol/LPotassium4.63.5-5.1 mmol/OSevuevcs25010-395 mmol/LCarbon Dhjbbsc28.921.0-32.0 mmol/LAnion Gap11.7Pjtmlrz0214-590 mg/dLBlood Urea Nitrogen 24.07.0-18.0 mg/dLCreatinine1.090.70-1.30 mg/dLEstimated GFR ( Pretty>60 >=60 mL/min/1.73m 2Estimated GFR (Non- Glenny>60>=60 mL/min/1.73m 2BUN Creatinine Ratio22.9Rpczyto0.28.5-10.1 mg/dLPerforming Lab:see noteML - [facility] LBALBUMIN Reviewed date:05/13/2025 08:28:06 PM Interpretation: Performing Lab: Notes/Report: [facility] ,Albumin Level4.23.4-5.0 g/dLPerforming Lab:see noteML - [facility] LBCBC AUTO DIFF Reviewed date:05/13/2025 08:28:06 PM Interpretation: Performing Lab: Notes/Report: [facility] ,White Blood Count3.54.0-11.0 10 3/uLRed Blood Count5.134.70-6.10 10 6/uL Bzxpjubmvj89.514.0-18.0 g/oSFzatmfwlvk07.442.0-54.0 %Mean Corpuscular Cyujpp84.5 80.0-94.0 fLMean Corpuscular Wkylztfcne71.225.9-34.0 pgMean Corpuscular HGB Conc 34.129.9-35.2 g/dLRed Cell Distribution Width13.211.0-15.0 %Platelet Xysie754 150-450 10 3/uLMean Platelet Volume9.89.5-13.5 fLNeutrophils Percent Auto63.8 43.0-75.0 %Lymphocytes Percent Auto23.920.5-60.0 %Monocytes Percent Auto8.91.7- 12.0 %Eosinophils Percent Auto2.00.9-7.0 %Basophils Percent Auto1.10.2-2.0 % Immature Granulocytes Pct Auto0.30.0-0.5 %Neutrophils Absolute Auto2.21.4-6.5 10 3/uLLymphocytes Absolute Auto0.81.2-3.8 10 3/uLMonocytes Absolute Auto0.30.3-0.8 10 3/uLEosinophils Absolute Auto0.10.0-0.7 10 3/uLBasophils Absolute Auto0.00.0- 0.1 10 3/uLImmature Granulocytes Abs Auto0.010.00-0.03 10 3/uLPerforming Lab:see noteML - [facility] LBLAB TESTING Reviewed date:05/21/2025 06:34:22 PM Interpretation: Performing Lab: Notes/Report: [id number] Nicotine and Metabolite, Quantitative, Plasma, Whole Blood, [facility] ,Miscellaneous TestCOMMENT. Test Ordered: [id number] Nicotine and Metabolite, Quant Nicotine <1.0 ng/mL Reference Range: . This test was developed and its performance characteristics determined by [facility]. It has not been cleared or approved by the Food and Drug Administration. Nicotine levels greater than 2.0 are consistent with the use of tobacco or tobacco cessation products. Cotinine <1.0 ng/mL Reference Range: . This test was developed and its performance characteristics determined by [facility]. It has not been cleared or approved by the Food and Drug Administration. Cotinine levels greater than 20.0 are consistent with the use of tobacco or tobacco cessation products. Performed at: [address] [id number] Urology Physician: Nicole Calles MD, Phone: [phone] Performed at: [address] [id number] Urology Physician: Aleks Ferreira PhD, Phone: [phone] Performing Lab:see note - [facility] LBPROF CHEM 8 (BAS METB) Reviewed date:05/13/2025 08:28:06 PM Interpretation: Performing Lab: Notes/Report: [facility] ,Bijcqz687879-489 mmol/LPotassium4.43.5-5.1 mmol/QMxbiarcm11388-969 mmol/LCarbon Xmndzrz06.221.0-32.0 mmol/LAnion Gap9.2Qorgrgu5312-068 mg/dLBlood Urea Nitrogen 19.07.0-18.0 mg/dLCreatinine1.120.70-1.30 mg/dLEstimated GFR ( Pretty>60 >=60 mL/min/1.73m 2Estimated GFR (Non- Glenny>60>=60 mL/min/1.73m 2BUN Creatinine Ratio17.7Siuaoqd2.28.5-10.1 mg/dLPerforming Lab:see note - [facility] LBVITAMIN D 25 [place] Reviewed date:05/13/2025 08:28:06 PM Interpretation: Performing Lab: Notes/Report: [facility] ,Vitamin D78.3 <20 ng/mL Vit D deficient 20-<30 ng/mL Vit D insufficient 30-100 ng/mL Vit D sufficient >100 ng/mL Potential Toxicity Performing Lab:see note - [facility] LBMRSA Screening Culture Reviewed date:05/15/2025 04:24:32 PM Interpretation: Performing Lab: Notes/Report: [facility] ,MRSA Screening CultureSee Below For Report MRSA Screening Culture MRSA Screening CultureNegative MRSA Screening Culture MRSA Screening CulturePerformed at: [facility] [place] MRSA Screening Culture MRSA Screening [address] [place], [place] [id number] MRSA Screening Culture MRSA Screening CultureLab Director: Aleks Ferreira PhD, Phone: [phone] MRSA Screening Culture Performing Lab:see note LC - [facility] LB SEE REPORT - [employer] Id information not found for OBX-specific senior interactive producer legend XR pelvis 1-2V Reviewed date:05/13/2025 08:28:06 PM Interpretation: Performing Lab: Notes/Report: Source Facility: [facility]-[address] [place] [address] XRay Report Signed Patient: KING ADDISON MR#: [id number] : 1960 Acct:[id number] Age/Sex: 65 / M ADM Date: 05/13/25 Loc: RAD Attending Dr: Nikita Hutchison M.D. Ordering Physician: Nikita Hutchison Date of Service: 05/13/25 Procedure(s): XR pelvis 1-2V Accession Number(s): [id number] cc: Ryan Hendrickson M.D.; Nikita Hutchison [place] [address] Patient Name: KING ADDISON MRN: [id number] date: 1960 Sex: M Assigned Patient Location: [facility] Current Patient Location: LAB Accession/Order Number: [id number] Exam Date: 05/13/2025 12:44 Report Date: 05/13/2025 [...] Arzate M.D. 05/13/2025 12:45 PM Dictation Location: [place] [address] Electronically authenticated by: [id number] Y Date: 05/13/2025 12:45 Dictated By: Michael Arzate M.D. Signed By: 05/13/25 1248 DD/ 1245 TD/TT: Kerfer Machine Operator:XR knee RT 4V Reviewed date:05/13/2025 08:28:06 PM Interpretation: Performing Lab: Notes/Report: Source Facility: [place] [address] XRay Report Signed Patient: KING ADDISON MR#: [id number] : 1960 Acct:[id number] Age/Sex: 65 / M ADM Date: 05/13/25 Loc: RAD Attending Dr: Nikita Hutchison M.D. Ordering Physician: Nikita Hutchison Date of Service: 05/13/25 Procedure(s): XR knee RT 4V Accession Number(s): [id number] cc: Ryan Hendrickson M.D.; Nikita Hutchison [place] [address] Patient Name: KING ADDISON MRN: [id number] date: 1960 Sex: M Assigned Patient Location: RAD Current Patient Location: RAD Accession/Order Number: [id number] Exam Date: 05/13/2025 12:02 Report Date: 05/13/2025 12:04 At the request of: NIKITA HUTCHISON MD Procedure: XR knee RT 4V RIGHT KNEE 3 views CLINICAL HISTORY: m25.561 Pain in right knee COMPARISON: None FINDINGS: Anterior knee soft tissue swelling. Severe medial compartment and mtgy-ux-sogtfhjh patellofemoral marker and degenerative changes. Mild lateral compartment degenerative change. Calcific densities within the suprapatellar region question synovial. XR/XR knee RT 4V IMPRESSION: Anterior knee soft tissue swelling. Severe medial compartment degenerative changes. Impression dictated by: Michael Arzate M.D. 05/13/2025 12:04 PM Dictation Location: [place] [address] Electronically authenticated by: [id number] Y Date: 05/13/2025 12:04 Dictated By: Michael Arzate M.D. Signed By: 05/13/25 1206 DD/ 1204 TD/TT: Kerfer Machine Operator:DAVID gabo perf SPECT rest str Reviewed date:05/29/2025 03:59:28 PM Interpretation: Performing Lab: Notes/Report: Source Facility: [place] [address] Nuclear Medicine Report Signed Patient: KING ADDISON MR#: [id number] : 1960 Acct:[id number] Age/Sex: 65 / M ADM Date: 05/29/25 Loc: DAVID Attending Dr: George William M.D. Ordering Physician: George William M.D. Date of Service: 05/29/25 Procedure(s): DAVID gabo perf SPECT rest str Accession Number(s): [id number] cc: George William M.D.; Ryan Hendrickson M.D. Patient Name: KING ADDISON MR#: [id number] : 1960 Exam Date: 05/29/2025 Ordering Doctor: [...] the study was pending per attending physician [facility]. For more details, please see separate cardiac [...] Signed By: 05/29/25 1554 DD/ 1553 TD/TT: Kerfer Machine Operator:JESSIE T3 Reviewed date:06/11/2025 12:35:21 PM Interpretation: Performing Lab: Notes/Report: [facility] T31.862.18-3.98 pg/mLPerforming Lab:see noteML - [facility] LB FREE T4 Reviewed date:06/11/2025 12:35:21 PM Interpretation: Performing Lab: Notes/Report: [facility] T40.740.76-1.46 ng/dLPerforming Lab:see noteML - [facility] LB TSH Reviewed date:06/11/2025 12:35:21 PM Interpretation: Performing Lab: Notes/Report: [facility] ,Thyroid Stimulating Hormone1.0000.358-3.740 uIU/mLPerforming Lab:see noteML - [facility] LBCBC AUTO DIFF Reviewed date:07/26/2025 12:08:52 PM Interpretation: Performing Lab: Notes/Report: [facility] ,White Blood Count5.14.0-11.0 10 3/uLRed Blood Count4.744.70-6.10 10 6/uL Uafqixinnz81.514.0-18.0 g/sUNqrcmydnnk61.142.0-54.0 %Mean Corpuscular Ltocto97.8 80.0-94.0 fLMean Corpuscular Zkrlopwqap24.625.9-34.0 pgMean Corpuscular HGB Conc 34.429.9-35.2 g/dLRed Cell Distribution Width13.011.0-15.0 %Platelet Bkmux106 150-450 10 3/uLMean Platelet Volume9.69.5-13.5 fLNeutrophils Percent Auto72.2 43.0-75.0 %Lymphocytes Percent Auto18.320.5-60.0 %Monocytes Percent Auto6.71.7- 12.0 %Eosinophils Percent Auto1.60.9-7.0 %Basophils Percent Auto0.80.2-2.0 % Immature Granulocytes Pct Auto0.40.0-0.5 %Neutrophils Absolute Auto3.71.4-6.5 10 3/uLLymphocytes Absolute Auto0.91.2-3.8 10 3/uLMonocytes Absolute Auto0.30.3-0.8 10 3/uLEosinophils Absolute Auto0.10.0-0.7 10 3/uLBasophils Absolute Auto0.00.0- 0.1 10 3/uLImmature Granulocytes Abs Auto0.020.00-0.03 10 3/uLPerforming Lab:see noteML - [facility] LBCBC AUTO DIFF Reviewed date:07/26/2025 12:08:52 PM Interpretation: Performing Lab: Notes/Report: [facility] ,White Blood Count4.64.0-11.0 10 3/uLRed Blood Count5.144.70-6.10 10 6/uL Nthoivlsst21.314.0-18.0 g/kZHkqvnpcvqe32.942.0-54.0 %Mean Corpuscular Ivryse38.3 80.0-94.0 fLMean Corpuscular Sevrrnngez37.825.9-34.0 pgMean Corpuscular HGB Conc 33.329.9-35.2 g/dLRed Cell Distribution Width12.911.0-15.0 %Platelet Aejom556 150-450 10 3/uLMean Platelet Volume9.59.5-13.5 fLNeutrophils Percent Auto76.4 43.0-75.0 %Lymphocytes Percent Auto15.220.5-60.0 %Monocytes Percent Auto6.31.7- 12.0 %Eosinophils Percent Auto1.50.9-7.0 %Basophils Percent Auto0.60.2-2.0 % Immature Granulocytes Pct Auto0.00.0-0.5 %Neutrophils Absolute Auto3.51.4-6.5 10 3/uLLymphocytes Absolute Auto0.71.2-3.8 10 3/uLMonocytes Absolute Auto0.30.3-0.8 10 3/uLEosinophils Absolute Auto0.10.0-0.7 10 3/uLBasophils Absolute Auto0.00.0- 0.1 10 3/uLImmature Granulocytes Abs Auto0.000.00-0.03 10 3/uLPerforming Lab:see noteML - [facility] LBFERRITIN Reviewed date:07/26/2025 12:08:52 PM Interpretation: Performing Lab: Notes/Report: [facility] ,Xutgdllx01.026.0-388.0 ng/mLPerforming Lab:see noteML - [facility] LBIRON AND TIBC Reviewed date:07/26/2025 12:08:52 PM Interpretation: Performing Lab: Notes/Report: [facility] ,Iron95.065.0-175.0 ug/dLTotal Iron Binding Xilswupt386.0250.0-450.0 ug/dL Percent Iron Wiaxoyinuw15.8Performing Lab:see noteML - [facility] LB Immunoglobulin M, Qn, Serum Reviewed date:07/26/2025 12:08:51 PM Interpretation: Performing Lab: Notes/Report: [facility] ,Immunoglobulin M, N2593-273 mg/dL Performed at: [address] [id number] Urology Physician: Aleks Ferreira PhD, Phone: [phone] [facility] LBPROF 14(COMP METB) Reviewed date:07/26/2025 12:08:52 PM Interpretation: Performing Lab: Notes/Report: [facility] ,Xjiefi053103-946 mmol/LPotassium4.53.5-5.1 mmol/GPhzqxtmk84903-419 mmol/LCarbon Kyqogle96.221.0-32.0 mmol/LAnion Gap10.3Qyvnato2623-793 mg/dLBlood Urea Nitrogen 22.07.0-18.0 mg/dLCreatinine1.360.70-1.30 mg/dLEstimated GFR ( Pretty>60 >=60 mL/min/1.73m 2Estimated GFR (Non- Ame52>=60 mL/min/1.73m 2BUN Creatinine Ratio16.8Eentgjy7.28.5-10.1 mg/dLBilirubin Total0.40.2-1.0 mg/dL Aspartate Amino Wslryzcuuwo8676-29 U/LAlanine Iosbbxjegrdbbgsj9401-31 U/L Alkaline Mwfcoocbvpx1240-623 U/LTotal Protein6.66.4-8.2 g/dLAlbumin Level3.73.4- 5.0 g/dLGlobulin2.9Albumin Globulin Ratio1.3Performing Lab:see note - [facility] LBLDH Reviewed date:07/26/2025 12:08:52 PM Interpretation: Performing Lab: Notes/Report: [facility] ,Lactate Sewejdtlsldkw78476-590 U/LPerforming Lab:see [facility] LBGLYCOHEMOGLOBIN A1C Reviewed date:05/13/2025 08:28:06 PM Interpretation: Performing Lab: Notes/Report: [facility] ,Glycohemoglobin A1C5.14.5-6.2 % ADA RECOMMENDED LIMIT 4.0 - 6.0 ADA THERAPEUTIC TARGET < 7.0 ACTION SUGGESTED > 7.0 Estimated Average Ewtkblb561Mxpakvtvxh Lab:see noteML - [facility] LB CA echo doppler complete Reviewed date:02/13/2025 08:22:32 PM Interpretation: Performing Lab: Notes/Report: Source Facility: [facility]-[address] [place] [address] [place] [address] Cardiology Report Signed Patient: KING ADDISON MR#: [id number] : 1960 Acct:[id number] Age/Sex: 64 / M ADM Date: 02/12/25 Loc: CARD Attending Dr: George William M.D. Ordering Physician: George William M.D. Date of Service: 02/12/25 Procedure(s): CA echo doppler complete Accession Number(s): [id number] cc: George William M.D.; Ryan Hendrickson M.D. Patient Name: KING ADDISON MR#: [id number] : 1960 Exam Date: 02/12/2025 Ordering Doctor: [...] GUTIERREZ Signed By: 02/12/251925 DD/ 24 TD/TT: Kerfer Machine Operator:CBC AUTO DIFF Reviewed date:02/13/2025 08:22:32 PM Interpretation: Performing Lab: Notes/Report: [facility] ,White Blood Count3.94.0-11.0 10 3/uLRed Blood Count4.814.70-6.10 10 6/uL Vsammolwwo61.714.0-18.0 g/xOAwqjczzkxi09.042.0-54.0 %Mean Corpuscular Wfnsap70.3 80.0-94.0 fLMean Corpuscular Qizbdimres42.625.9-34.0 pgMean Corpuscular HGB Conc 35.029.9-35.2 g/dLRed Cell Distribution Width13.811.0-15.0 %Platelet Wdhya470 150-450 10 3/uLMean Platelet Volume9.29.5-13.5 fLNeutrophils Percent Auto66.0 43.0-75.0 %Lymphocytes Percent Auto20.320.5-60.0 %Monocytes Percent Auto10.91.7- 12.0 %Eosinophils Percent Auto2.00.9-7.0 %Basophils Percent Auto0.80.2-2.0 % Immature Granulocytes Pct Auto0.00.0-0.5 %Neutrophils Absolute Auto2.61.4-6.5 10 3/uLLymphocytes Absolute Auto0.81.2-3.8 10 3/uLMonocytes Absolute Auto0.40.3- 0.8 10 3/uLEosinophils Absolute Auto0.10.0-0.7 10 3/uLBasophils Absolute Auto0.0 0.0-0.1 10 3/uLImmature Granulocytes Abs Auto0.000.00-0.03 10 3/uLPerforming Lab:see noteML - [facility] LBCBC AUTO DIFF Reviewed date:11/20/2024 12:37:15 PM Interpretation: Performing Lab: Notes/Report: [facility] ,White Blood Count3.54.0-11.0 10 3/uLRed Blood Count5.114.70-6.10 10 6/uL Apmypdfevc06.314.0-18.0 g/oDGdffehgpmo20.942.0-54.0 %Mean Corpuscular [place]ok28.9 80.0-94.0 fLMean Corpuscular Seiukyttef99.925.9-34.0 pgMean Corpuscular HGB Conc 34.129.9-35.2 g/dLRed Cell Distribution Width13.411.0-15.0 %Platelet Icqzs882 150-450 10 3/uLMean Platelet Volume9.19.5-13.5 fLNeutrophils Percent Auto62.2 43.0-75.0 %Lymphocytes Percent Auto25.620.5-60.0 %Monocytes Percent Auto8.81.7- 12.0 %Eosinophils Percent Auto2.00.9-7.0 %Basophils Percent Auto1.10.2-2.0 % Immature Granulocytes Pct Auto0.30.0-0.5 %Neutrophils Absolute Auto2.21.4-6.5 10 3/uLLymphocytes Absolute Auto0.91.2-3.8 10 3/uLMonocytes Absolute Auto0.30.3- 0.8 10 3/uLEosinophils Absolute Auto0.10.0-0.7 10 3/uLBasophils Absolute Auto0.0 0.0-0.1 10 3/uLImmature Granulocytes Abs Auto0.010.00-0.03 10 3/uLPerforming Lab:see noteML - [facility] LBTestosterone Reviewed date:10/22/2024 04:45:30 PM Interpretation: Performing Lab: Notes/Report: [facility] ,Fipicrweymng829941-147 ng/dL Adult male reference interval is based on a population of healthy nonobese males (BMI <30) between 19 and 39 years old. stephania Salinas.al. JCEM 2017,102;4534-9403. PMID: 64106141. Performed at: [address] [id number] Urology Physician: Aleks Ferreira PhD, Phone: [phone] Performing Lab:see [facility] LBPROF 14(COMP METB) Reviewed date:02/13/2025 08:22:32 PM Interpretation: Performing Lab: Notes/Report: [facility] ,Bkqrmz248553-219 mmol/LPotassium4.93.5-5.1 mmol/DIbwbyhue35250-829 mmol/LCarbon Dbvsjni38.221.0-32.0 mmol/LAnion Gap10.2Erdcuzl4537-458 mg/dLBlood Urea Ooxlivgr28.07.0-18.0 mg/dLCreatinine1.190.70-1.30 mg/dLEstimated GFR ( Pretty>60>=60 mL/min/1.73m 2Estimated GFR (Non- Glenny>60>=60 mL/min/1.73m 2BUN Creatinine Ratio25.8Iasmlvi3.68.5-10.1 mg/dLBilirubin Total0.50.2-1.0 mg/dL Aspartate Amino Gmnnhvkwiyy4630-38 U/LAlanine Jfkbfrifhgznyjyb3294-86 U/L Alkaline Vbaqckqrbkb2231-617 U/LTotal Protein7.36.4-8.2 g/dLAlbumin Level4.43.4- 5.0 g/dLGlobulin2.9Albumin Globulin Ratio1.5Performing Lab:see note - [facility] LBLDH Reviewed date:02/13/2025 08:22:32 PM Interpretation: Performing Lab: Notes/Report: [facility] ,Lactate Ggstaruiimyec40094-512 U/LPerforming Lab:[facility] LBImmunoglobulin G, Qn, Serum Reviewed date:07/26/2025 12:08:52 PM Interpretation: Performing Lab: Notes/Report: [facility] ,Immunoglobulin G, [id number] mg/dL Performed at: [facility] - [facility] [id number] Urology Physician: Aleks Ferreira PhD, Phone: [phone] Performing Lab:see noteLC - [facility] LB Reason For Referral No Information Medications Medication SIG (Take, Route, Frequency, Duration) [...] Orally Once a day; Duration: 30 daysActive Immunizations Vaccine Route Administration Date Status Comme nts DTP - historic Unknown 09/04/2021 Administered Flu, Fluzone (85659) 6 mos+, single-dose syringe/vial ()Unknown 06/30/20208254MajxvuqdxuqaNZWA-LDT-0 (COVID 19 Moderna - Booster 0.25mL)Unknown 8878TvgnskneetzyEZHC-ENV-7 (COVID 19 Pfizer 30mcg/0.3mL)Gxhrpts4511/24/2019 MhjuurdmcrfhDAAW-IVX-1 (COVID 19 Pfizer 30mcg/0.3mL)Vmhmdms7611/30/2020 JkegkqdlvfuyCBVR-VTW-2 (COVID 19 Pfizer 30mcg/0.3mL)Tcuyigm7612/22/2020 AdministeredZOSTER (SHINGLES) VACCINE (HZV)Vcrnlqn7604/05/2022dministeredZOSTER (SHINGLES) VACCINE (HZV)Twprcas20/12/2022Administered Social History Tobacco Use: Social History Observation [...] containing alcohol in the past year?Weekly (3 points)Lyaysy8Qgrykq7 InterpretationNegativeInterpretationPositiveAUDIT-C (Standard) Question Answer Notes Did you [...] primary o steoarthritis of the shoulder region (197019773) Primary osteoarthritis, right shoulder (M19.011) ActiveconfirmedProblemEruptive melanocytic nevi (817820831)Melanocytic nevi, unspecified (D22.9)ActiveconfirmedProblemLeukopenia (60491959)Decreased white blood cell count, unspecified (D72.819)ActiveconfirmedProblemVitamin D deficiency (20273795)Vitamin D deficiency, unspecified (E55.9)Activeconfirmed ProblemSleep apnea (16236079)Sleep apnea, unspecified (G47.30)Activeconfirmed ProblemImpacted cerumen (34267310)Impacted cerumen, bilateral (H61.23)Active confirmedProblemHypertensive heart failure (11117262)Hypertensive heart disease with heart failure (I11.0)ActiveconfirmedProblemAtrial fibrillation (65671011) Unspecified atrial fibrillation (I48.91)ActiveconfirmedProblemHeart failure (50345002)Heart failure, unspecified (I50.9)ActiveconfirmedProblem Cerebrovascular disease (40590308)Other cerebrovascular disease (I67.89)Active confirmedProblemPain at rest of left lower limb due to atherosclerosis (disorder) (05146933435115550)Atherosclerosis of [place] arteries of extremities with rest pain, left leg (I70.222)ActiveconfirmedProblemRaynaud's disease (642433197)Raynaud's syndrome without gangrene (I73.00)ActiveconfirmedProblem Orthostatic hypotension (17433872)Orthostatic hypotension (I95.1)Activeconfirmed ProblemLocalized, primary osteoarthritis of the shoulder region (437000304) Primary osteoarthritis, left shoulder (M19.012)ActiveconfirmedProblemPain of right shoulder region (finding) (8588525768)Pain in right shoulder (M25.511) ActiveconfirmedProblemShoulder joint pain (280218263)Pain in left shoulder (M25.512)ActiveconfirmedProblemScoliosis deformity of spine (225051128)Other forms of scoliosis, site unspecified (M41.80)ActiveconfirmedProblemDegeneration of thoracic intervertebral disc (73936346)Other intervertebral disc degeneration, 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)ActiveconfirmedProblemCervicalgia (25822522)Cervicalgia (M54.2)ActiveconfirmedProblemDecrease in height (81298887) Loss of height (R29.890)ActiveconfirmedProblemAphasia (62666108)Aphasia (R47.01) ActiveconfirmedProblemContusion and laceration of left cerebrum with loss of consciousness greater than 24 hours without return to pre-existing conscious level with patient surviving, subsequent encounter (S06.326D)Activeconfirmed ProblemAtrial fibrillation (77344406)Atrial fibrillation (I48.91)Activeconfirmed ProblemSpinal stenosis (61916316)Spinal stenosis (M48.00)ActiveconfirmedProblem Edema (21354760)Edema (R60.9)ActiveconfirmedProblemHypothyroid (46068865) Hypothyroid (E03.9)ActiveconfirmedProblemAttention deficit disorder (34825554) ADD (attention deficit disorder) (F90.0)ActiveconfirmedProblemSleep apnea (20807993)Sleep apnea (G47.30)ActiveconfirmedProblemEczema (04682223)Eczema (L30.9)ActiveconfirmedProblemCerebrovascular disease (88045337)Other cerebrovascular disease (I67.89)ActiveconfirmedProblemDiastolic heart failure (247738891)Unspecified diastolic (congestive) heart failure (I50.30)Active confirmedProblemAcute combined systolic and diastolic heart failure (465559434648503)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)ActiveconfirmedProblemLumbar radiculopathy (674711234) Lumbar radiculopathy (M54.16)ActiveconfirmedProblemPain in limb (32655486)Foot pain, left (M79.672)ActiveconfirmedProblemOsteoarthritis of knee (701532205) Osteoarthritis of right knee (M17.9)ActiveconfirmedProblemWell adult (379356075) Well adult (Z00.00)ActiveconfirmedProblemDegenerative disc disease (15396680)DDD (degenerative disc disease), lumbar (M51.36)ActiveconfirmedProblem Thrombocytopenia (023335263)Thrombocytopenia (D69.6)ActiveconfirmedProblem Vitamin B12 deficiency (non anemic) (37060246)B12 deficiency (E53.8)Active confirmedProblemDysarthria (1085962)Dysarthria (R47.1)ActiveconfirmedProblem Degeneration of cervical intervertebral disc (83269310)Degenerative cervical disc (M50.30)ActiveconfirmedProblemNeutropenia (100289189)Neutropenia (D70.9) ActiveconfirmedProblemPain in left foot (015617402597990)Left foot pain (M79.672)ActiveconfirmedProblemLeukopenia (69983607)Leukopenia (D72.819)Active confirmedProblemObstructive sleep apnea syndrome (38931151)Moderate obstructive sleep apnea (G47.33)ActiveconfirmedProblemAsthma without status asthmaticus (19535489)AB (asthmatic bronchitis) (J45.909)ActiveconfirmedProblemSeborrheic keratosis (60105346)Keratosis, seborrheic (L82.1)ActiveconfirmedProblem Hypothyroidism (88722049)Hypothyroidism, unspecified type (E03.9)Activeconfirmed ProblemShoulder impingement syndrome (834715409)Shoulder impingement syndrome (M75.40)ActiveconfirmedProblemVitamin B deficiency (63070255)Deficiency of vitamin B12 (E53.8)ActiveconfirmedProblemAccelerated essential hypertension (04784385)Accelerated essential hypertension (I10)ActiveconfirmedProblem Attention deficit disorder (66691999)ADD (attention deficit disorder) (F98.8) ActiveconfirmedProblemArthritis of both knees (5553780784448327)Arthritis of both knees (M17.0)ActiveconfirmedProblemOsteoarthritis of knee (385612277) Osteoarthritis of knee, unilateral (M17.10)ActiveconfirmedProblemDiastolic heart failure (536958189)CHF (congestive heart failure), NYHA class I, unspecified failure chronicity, diastolic (I50.30)ActiveconfirmedProblemChronic kidney disease stage 3B (disorder) (848430758)Chronic kidney disease, stage 3b (N18.32) ActiveconfirmedProblemLow back pain (705929731)Low back pain, unspecified (M54.50)Activeconfirmed Vital Signs Blood pressure diastolic 80 mm Hg 09/15/2025 Qmevnu50.5 in09/15/2025lood pressure pqzahsii535 mm Hg09/15/20259974Flgbkq094.4 lbs 09/15/2025BMI28.36 kg/m209/15/2025 Encounters Encounter Location Date Provider Diagnosis [facility] [address] [place] [address] 06/19/2025 Nabeel Hendrickson [facility] [place] [address] 06/19[facility]20[facility] [place] [address]/Domilton Yepezpr R60.9[facility] [place] [address]/22/2025[facility] [place] [facility] [place] [address]/06/2025Doug Hoy Accelerated essential hypertension I10 and Leukopenia D72.819[facility] [place] [facility] [place] [address]/Doug Hoy [facility] [place] [facility] [address] 10/09/2024[facility] [place] [facility] [address]/12/2024[facility] [place] [facility] [address]/Doug HoyVitamin D deficiency, unspecified E55.9[facility] [place] [facility] [place] [address] 01/07/2025Doug HoyB12 deficiency E53.8[facility] [place] [facility] [address]/Doug HoyDeficiency of vitamin B12 E53.8[facility] [place] [facility] [address] 03/13/2025Doug HoyDeficiency of vitamin B12 E53.8[facility] [address] [place] [facility] [place] [address]/Doug HoyDeficiency of vitamin B12 E53.8[facility] [place] [facility] [address]/Doug HoyB12 deficiency E53.8[facility] [place] [facility] [address]/Doug HoyDeficiency of vitamin B12 E53.8[facility] [place] [facility] [address]/Doug HoyB12 deficiency E53.8[facility] [place] [facility] [address]/07/2025Doug Hoy Deficiency of vitamin B12 E53.8[facility] [place] [address]/11/2024Doug HoyDeficiency of vitamin B12 E53.8 [facility] [place] [address] 09/15/2025Doug HoyDeficiency of vitamin B12 E53.8 ; Atherosclerosis of [place] arteries of extremities with rest pain,left leg I70.222 ; Hypertensive heart disease with heart failure I11.0 ; Unspecified diastolic (congestive) heart failure I50.30 ; Heart failure, unspecified I50.9 ; Chronic kidney disease, stage 3b N18.32 and Lumbar radiculopathy M54.16[facility] [address] [place] [address]/05/2025Doug HoyOsteoarthritis of right knee M17.9 ; Atrial fibrillation I48.91 and Accelerated essential hypertension I10[facility] [address] [place] [address]/pojenny GaleL[facility] [address] [place] [address]/[facility] Assessments Encounter Date Diagnosis (ICD Code) Assessment Notes Treatment Notes Treatment Clinical Notes Section Notes 10/08/2024 B12 deficiency (ICD-10 - E53.8) 11/05/2024Deficiency of vitamin B12 (ICD-10 - E53.8)11/25/2024Deficiency of vitamin B12 (ICD-10 - E53.8)5B12 deficiency (ICD-10 - E53.8)02/06/2025 Deficiency of vitamin B12 (ICD-10 - E53.8)03/13/2025Deficiency of vitamin B12 (ICD-10 - E53.8)04/10/2025Deficiency of vitamin B12 (ICD-10 - E53.8)05/12/2025 B12 deficiency (ICD-10 - E53.8)06/12/2025Deficiency of vitamin B12 (ICD-10 - E53.8)06/03/2025Osteoarthritis of right knee (ICD-10 - M17.9)Cleared for OR - BP wellcontrolled -not in afib - passed stress test06/03/2025trial fibrillation (ICD-10 - I48.91)07/10/2025Vitamin D deficiency, unspecified (ICD-10 - E55.9) 09/15/2025Deficiency of vitamin B12 (ICD-10 - E53.8)09/15/2025therosclerosis of [place] arteries of extremities with rest pain, left leg (ICD-10 - I70.222) Acjdog2510/04/2024celerated essential hypertension (ICD-10 - I10)10/04/2024 Leukopenia (ICD-10 - D72.819)07/25/2025Edema (ICD-10 - R60.9)09/15/2025 Hypertensive heart disease with heart failure (ICD-10 - I11.0)- pain resolvedstabel here - monitore at ho5Accelerated essential hypertension (ICD-10 - I10)09/15/2025Unspecified diastolic (congestive) heart failure (ICD- 10 - I50.30)No DOE111/16/2024Heart failure, unspecified (ICD-10 - I50.9)or ddsmaujlr92/22/2025hronic kidney disease, stage 3b (ICD-10 - N18.32)following lasbs - better wtih off lxloqthh25/22/2025Lumbar radiculopathy (ICD-10 - M54.16) Hx of lumbar disk sidsase- now tiwh worengin symptoms in low back with pain radiating into legs- doing TENS and head and ice adn nsaids - no sig releif - needs MRI due to + straght leg rais and diminished patellar qyzcdj7509/15/2025 OtherRecommended to rest and use a heating pad on the area. Take NSAIDs for pain as needed Plan Of Treatment Pending Test Test Name Order Date CMP (COMPLETE METABOLIC PANEL) UA (URINALYSIS, COMPLETE) 07/04/2023 CBC WITH DIFF (EXP 07/2025) 06/26/2023 DEXA Axial Skeleton (hips, pelvis, spine [...] (HIPS,PELVIS,SPINE ) 03/13/2023 TAYLOR Ankle Brachial Index (54694) 024 CBC AUTO DIFF 09/05/2023 CULTURE URINE 07/04/2023 BREE - VITAMIN D 12/28/2023 PROTEIN 24HR URINE 07/07/2023 TESTOSTERONE, TOTAL 10/01/2023 THYROID PROFILE WITH TSH 08/24/2023 THYROID PROFILE WITH TSH 09/05/2023 URINE MICROSCOPIC ONLY 07/04/2023 VITAMIN B12 12/28/2023 VITAMIN B12 01/22/2024 MRI LSPINE WO CON 09/15/2025 US KIDNEYS BLADDER 07/03/2023 XR CSPINE 2_3 VIEWS 03/13/2023 XR DEXA BONE DENSITY 03/03/2023 THYROID PANEL (T4/TSH/FREE T3) 3 ECHOCARDIO M/2D COMPLETE 06/26/2023 XR SHOULDER RICHARD 2V or > 03/13/2023 U24 Creatinine 07/07/2023 Insurance Providers Payer Name Payer Address Payer Phone Subscriber Number Group Number Insured Name Patient Relationship to Insured Coverage Start Date Coverage End Date [employer] ACC[employer] PPO PLUS LOCAL PLAN [address] [place] [phone] [id number] Abhijit Saira Spouse - patient is the spouse of the insured 3 [place] [id number] King AddisonSelf - patient is the [id number] 2013 Medications Administered Medication Instructions Date of Administration Dosage Notes Cyanocobalamin gUXggxoyuggdvhfe17/05/20231 cVYlrztqnlydtmjx71/05/20231 mL Qgtnukdrqqrsyh01/04/20231 aVSuhhnuzwvncvcd35/05/20231 cKPrisnpmweallgq07/05/2023 1 hYMhahbnzmydjrhr19/06/20231 qJVnoyiduhonojza11/04/20231 mLCyanocobalamin aWFrubrlcjdpaaei42/05/20241 wEHccknrajuftlys17/05/20241 mL Wcmesikwxvioni57/04/20241 gBBbljvwcbluijqf29/30/20241 dWUihcmxjqrwthzv48/30/2024 1 xOBbmqjpdmbeacno16/28/20241 nJTlneeolzbsipil31/23/20241 mLCyanocobalamin gSDrypgpuheoobbn46/19/20241 wCOhrqdcxdoawlbo71/19/20241 mL Jivxtvmmtjento46/14/20251 tUUibnbkzufuglko29/11/20251 cNRdevhvlrrhfrfj00/03/2025 1 qOMbpjplmpnvjjdr87/15/20251 lRDmkdlynoelnpnt27/15/20251 mLCyanocobalamin fKLzqndonkrpqymb48/17/20251 sXKwmnbccpxnwlzv27/18/20251 mL Ofyhwdfkkvjumo74/18/20251 cOOmwpcabwcwzczo01/16/20251 pKAzqumaqsqnbgcw74/22/2025 1 mL Medical (General) History Medical History [...] lumbarOsteoarthritis of knee, unilateral Deficiency of vitamin F66AnpjrwhekuHqxrydndqzznxqhjNxszz apneaArthritis of both kneesOther cerebrovascular diseaseADD (attention deficit disorder)AphasiaSpinal stenosisHypothyroidEczemaContusion and laceration of left cerebrum with >24 hours loss of consciousness without return topreexisting conscious level with patient survivingSurgical History Surgery Date(Month/Year) Right total knee arthroplasty 08/04/25 Colonoscopy 05/29/24 JAMIN 07/11/23 Right Labrum repair hernia repairneck surgeryLeft inguinal hernia repairright shoulderFusion Cervical Spineleft knee replacementLeft knee replacementHospitalization History Reason Date(Month/Year) brain trauma 2010
--- OUTSIDE RECORDS SUMMARY | 2025-09-22 13:27 | XMS_ITS | Clinical Summary ---
Author Organization [facility] Healthcare Address [address] [facility] [place] [address] Care Team Providers Care Economic Geographer Name Role Phone Ryan Hendrickson MD Primary Care Provider [phone] Allergies Active AllergyReactionsCriticalityNoted EykkHmbywvzjXljkdyormhwii61/23/2024 Medications MedicationSigDispense QuantityRefillsLast FilledStart DateEnd DateStatus apixaban [...] tablet (112 mcg) before bedtime. 90 tablet 509/6Active liothyronine (Cytomel) 25 MCG tablet Indications:Sarah's diseaseTake 1 tablet (25 mcg) by mouth Daily Take 0.5 tabs po qd 90 tablet 5Active Active Problems ProblemNoted DateDiagnosed DateOSA (obstructive sleep apnea)07/08/2024LMD (periodic limb movement disorder)07/08/20249215Naonfpmygmo85/14/2024aroxysmal atrial dsabfuosvmtp21/14/2024Autoimmune bsknstbebcn58/04/2024Unspecified atrial ohnilhkhsemc77/04/2024 Resolved Problems ProblemNoted DateDiagnosed DateResolved DateHypothyroidism, unspecified Family History Medical HistoryRelationNameCommentsCancerFatherHeart diseaseFatherLymphomaFather SmokerFatherSpleen cancerFatherCOPDMotherCancerMotherAlcoholism [...] have six or more drinks on one occasion?Ggsslt6007/08/2024Sex and Gender InformationValueDate RecordedSex Assigned at BirthNot on fileLegal SexMale 12/07/2022 7:03 PM EDTGender IdentityNot on fileSexual OrientationNot on file Last Filed Vital Signs Vital SignReadingTime TakenCommentsBlood Cvoacazw952/9009 10:43 AM EDT Dpzmg385706/11/2025 10:43 AM EDTTemperature--Respiratory Wkow267006/11/2025 10:43 AM EDTOxygen Qwnutrpbcz73%06/11/2025 10:43 AM EDTInhaled Oxygen Concentration-- Euznaq82.8 kg (187 lb)06/11/2025 10:43 AM YCYLbqrwm440.9 cm (5' 6.5 )06/11/2025 10:43 AM EDTBody Mass Index29.7306/11/2025 10:43 AM EDT Plan of Treatment DateTypeDepartmentCare Team (Latest Contact Info)Pbiwoueircs24/18/2026 11:00 AM EDTOffice Visit [facility] [address] [place] [address] Román Dawson MD [address] [place] [address] Health MaintenanceDue DateLast DoneCommentsCT Fnbhffeesdul1959FIT-DNA 1959FIT1959FOBT1959 9285Imzjctoqthbna1959Influenza Vaccine (#1)/01/2024, 08/10/2023, 07/25/2022, Additional history exists Gzscojducbo34/04/203409/olorectal Cancer Nufgmjfxk23/04/2034neumococcal Vaccine: 65+ SlhodAkzjwwtfu53/15/2024 Insurance Care Teams Team MemberRelationshipSpecialtyStart DateEnd Ryan Hendrickson MD [address] [facility] [place] [address] PCP - [facility]05/13/24
--- OUTSIDE RECORDS SUMMARY | 2025-09-22 13:28 | XMS_ITS | Clinical Summary ---
Author Organization [facility] Address [address] [facility] [place] [address] Care Team Providers Care Paper Sorter And Counter Name Role Phone Jovita Virk MD Unavailable Source Comments The following information is NOT included in Care Everywhere downloads:Psychiatric notes, ECG results, Cardiac Rehab notes, Pulmonary Function notes, data from Smart[employer] (includes but not limited toPregnancy data,audiograms, eye exams, pre-surgical evaluation notes, well-child exam data).[facility] Allergies No known active allergies Medications MedicationSigDispense [...] mg into the muscle once a month.12/10/2018Active [place]-3 Fatty Acids (FISH OIL) 1000 MG CAPS [...] 90 Capsule 3Active Active Problems ProblemNoted DateDiagnosed DateA-fib05/29/20198001Mjbziq73/04/2019Arthritis of both knees05/29/2019Cervical disc otsprre9505/29/2019Spinal ptcivojg13/04/2019Sleep apnea05/29/2019B12 fwonhyivvm78/29/2018Absolute nyhyom0612/06/2017Thrombocytopenia 12/04/2017Atrial vrfgakmwrvnk94/08/2017Status post total left knee replacement 10/13/2016Primary osteoarthritis of right knee09/02/2016Traumatic brain injury 02/23/2016Encounter for vocational isuwwqf6208/24/2011Specific academic or work inhibition as adjustment /30/2011Cognitive surqnqtu57/30/2011Muscle cahwwaqv60/04/2011Encounter for occupational zugfpmj7807/07/2011Other physical usgqurz1707/05/2011Lack of qqcxslilvarf24/11/2011Memory loss07/05/2011ttention or concentration ehvkwan4107/05/2011Frontal lobe and executive function deficit 07/05/2011Cognitive communication dskuwdq4807/05/2011Cervical vertebral fusion 06/28/2011 Overview (01/08/2019): History of Cervical vertebral fusion C5-C6 Wfwlorjahfzkvo07/04/2011Traumatic sqmdbfyhmtoiljh46/04/0114Vpsdfax22/04/2011 Overview (01/08/2019): Post traumatic Amnesia Cervical spondylosis with edlwpogaif92/19/2007Viral warts04/28/2005 Immunizations ImmunizationAdministration DatesNext DueDTP (CVX=01)09/04/2021Influenza, Injectable, MDCK, Quadrivalent, Preservative Free (QZB=246)08/10/2023,07/25/2022 Influenza, injectable, quadrivalent, preservative free (MGK=117)08/10/2021, 06/30/2020Moderna Monovalent (12+ yrs) COVID-19 vaccine, mRNA, spike protein, LNP, PF, 100 mcg/0.5 mL (LKM=767)2Pfizer Monovalent (12+ yrs) SARS-COV-2 (COVID-19) vaccine, mRNA, spike protein, LNP, pres. free, 30mcg/0.3mL dose (GXD=342)12/22/2020,11/30/2020Zoster Recombinant (RZV,Shingles) (JDZ=831) 08/29/2022,04/05/2022 Family History Medical HistoryRelationNameCommentsCancerFatherSkin, spleen Heart [...] part ner or ex-partner?No08/12/2022ocial Connection and Isolation PanelAnswerDate RecordedIn a typical week, how many times do you talk on the phone with family, friends, or neighbors?Never08/12/2022How often do you get together with friends or relatives?Once a week08/12/2022How often do you attend pentecostalism or adventism services?Patient gldkyuid66/18/2022Do you belong to any clubs or organizations such as pentecostalism groups, unions, fraternal or athletic groups, or school groups? Patient lphzgzef07/18/2022How often do you attend meetings of the clubs or organizations you belong to?Patient /18/2022Are you , , , , never , or living with a partner?Patient declined 08/12/2022verall Financial Resource Strain (CARDIA)AnswerDate RecordedHow hard is it for you to pay for the very basics like food, housing, medical care, and heating?Patient /18/2022Finlifepoint hospitals [place] of Occupational [facility] - Occupational Stress QuestionnaireAnswerDate RecordedDo you feel stress - tense, restless, nervous, or anxious, or unable to sleep at night because yourmind is troubled all the time - these days?Not at all08/12/2022Exercise Vital SignAnswer Date RecordedOn average, how many days per week do you engage in moderate to strenuous exercise (like a brisk walk)?Patient yttpvajf19/18/2022n average, how many minutes do you engage in exercise at this level?Patient yalowadq53/18/2022 Hunger Vital SignAnswerDate RecordedWithin the past 12 months, you worried that your food would run out before you got the money to buymore.Never true08/12/2022 Within the past 12 months, the food you bought just didn't last and you didn't have money to get more.Never true08/12/2022RAPARE - TransportationAnswerDate RecordedIn the past 12 months, has lack of transportation kept you from medical appointments or from getting medications?No08/12/2022In the past 12 months, has lack of transportation kept you from meetings, work, or from getting things needed for daily living?No08/12/2022Housing Stability Vital SignAnswerDate RecordedIn the last 12 months, was there a time when you were not able to pay the mortgage or rent on time?No08/12/2022Number of Places Lived in the Last Year Not on file08/12/2022In the last 12 months, was there a time when you did not have a steady place to sleep or slept in ashelter (including now)?No08/12/2022 EducationAnswerDate RecordedWhat is the highest level of school you have completed or the highest degree you have received?12th grade08/12/2022ubstance UseTypesUse/WeekCommentsNot AskedSex and Gender InformationValueDate RecordedSex Assigned at BirthNot on fileLegal QkhUbcm64/12/2011 12:24 PM ESTGender Identity Not on fileSexual OrientationNot on file Last Filed Vital Signs Vital SignReadingTime TakenCommentsBlood Jnnecjrd562/8610 2:11 PM EDT Dpeqy951607/20/2022 2:11 PM STIMnfpigucahn63.7 ??C (98 ??F)07/20/2022 2:11 PM EDT Respiratory Zxuw2278 2:11 PM EDTOxygen Saarglgvzu976%07/20/2022 2:11 PM EDTInhaled Oxygen Concentration--Cuzqts72.9 kg (185 lb)07/20/2022 2:11 PM EDT Uxkhmp904.2 cm (5' 7 )12/06/2017 8:56 AM EDTBody Mass Index28.98012/06/2017 8:56 AM EDT Plan of Treatment Health MaintenanceDue DateLast ActnBjgrsraaGrsjdzbswyt1960Hepatitis C Nqvdkjru11/30/1977Tdap Bzktnqn1402/21/1977Hepatitis A (HAV) Vaccine (optional start 19+ years)1978CRC Mpqcjayoe14/30/2004Cologuard (Stool DNA)02/22/2004 FIT02/22/2004Pneumococcal Vaccine(s) (50+ yrs) (1 of 1 - PCV)2009TSH nnual Wellness Visit (G0438)11/23/2014Hepatitis B (HBV) Vaccine (optional start 60+ years)02/21/20192840Jnisabdglnc53/12/202112/08/2016 COVID-19 Vaccine ( season)/09/2021, 09/20/2021, 12/22/2020, Additional history existsInfluenza Vaccine (#1)/, 07/25/2022, 08/10/2021, Additional history existsRSV vaccine (adult) (1 - 1-dose 75+ series)2034Shingles (RZV) PsoemyaZadtgesya14/05/2022, 04/05/2022 Procedures Procedure NamePriorityDate/TimeAssociated CfqgwvtilVectjztyJCDIoomtfm41/16/2011 1:06 AM EDT from Last 3 Months or Most Recently Relevant to Health Maintenance Results * TSH, HIGH SENSITIVITY (06/10/2011 1:06 AM EDT)ComponentValueRef RangeTest MethodAnalysis TimePerformed AtPathologist SignatureTSH (high sens.)4.5620.300 - 5.600 uIU/mLMHS CLINICAL PATHOLOGY LABORATORYComment:Note: New reference range effective 2010Specimen (Source)Anatomical Location / Laterality Collection Method / VolumeCollection TimeReceived TimeBlood, venous stickBLOOD SPECIMEN / Kjaehdl0206/10/2011 1:06 AM EDT Narrative Authorizing ProviderResult TypeResult StatusMoeid Blanche PRIETO98 GENERAL LABFinal ResultPerforming OrganizationAddressCity/State/ZIP CodePhone Number [facility] [address] [phone] from Last 3 Months or Most Recently Relevant to Health Maintenance Insurance * Guarantor: Tono Sainz TypeRelation to PatientDate of BirthPhone Billing QienjghMgpcguriOmkrc31/11/1965 [address] [place] [address] Advance Directives * Full Code (Latest Code Status on File) Date ActivatedDate InactivatedComments06/09/2011 2:48 PM10 2:29 PM * Full Code Date ActivatedDate InactivatedComments06/05/2011 4:23 AM9 2:48 PM Care Teams Team MemberRelationshipSpecialtyStart DateEnd Date Jovita Virk MD [address] [place] [phone] PhysicianPhysical Medicine & Rehab/PM&R1
--- OUTSIDE RECORDS SUMMARY | 2025-09-22 16:20 | XMS_ITS | CCD ---
Author Organization [facility] Care Team Providers Care Surgical Territory Manager Name Role Phone Ilda Peck Primary [...] ARAM Flores, DR SAEED Landa Attending Unavaila ble ARAM [...] GONSALES Primary Care Unavailable HOY ., DR OGNSALES Attending Unavailable HOY ., DR GONSALES Admitting Unavailable HOY ., DR GONSALES Primary Care Unavailable Ilda Peck MD Primary Care Provider [phone] ILDA PECK Primary Care Unavailable SHAWANDA HERNANDEZ Attending Unavailable Sandoval Knight Unavailable MD Ilda Peck Primary Care Provider [phone] MD Tracy Griffin Attending Provider [phone] Ilda Peck MD Primary Care Provider [phone] Unavailable Primary Care Provider UnavailIlda Hernandez MD Primary Care Provider [phone] Shawanda MEJIA Attending Unavailable SILVERMAN, Vianey Crawford Attending Unavailable SILVERMAN, Vianey R Attending Unavailable SILVERMAN, Vianey R Attending Unavailable NILSyeda, Shawanda Crawford Attending Unavailable NILShawanda Landa Attending Unavailable Ilda Peck MD Primary Care Provider [phone] Ilda Peck MD Primary Care Provider [phone] OSMIN ANTHONY Attending Unavaila ble HOY, ILDA M Referring Unavailable HOY, ILDA M Primary Care Unavailable OSMIN ANTHONY Attending Unavaila ble HOY, ILDA M Primary Care Unavailable HOY, ILDA M Referring Unavailable OSMIN ANTHONY Attending Unavaila ble HOLuz Maria, ILDA M Primary Care Unavailable HOY, ILDA M Referring Unavailable FOOSMIN BLUE Referring Unavaila ble CISCO, ILDA M Primary Care Unavailable Ilda Peck MD Primary Care Provider [phone] Scot Hutchison MD Attending Provider Jovita Virk MD Unavailable GEORGE LOZA Attending Unavailable BAKARI SCOTT Attending Unavailable Ilda Peck MD Primary Care Provider [phone] ROMÁN DAWSON Attending Unavailable SAGE GOODE Attending Unavailable Ilda Peck MD Primary Care Provider [phone] Scot Hutchison MD Attending Provider Sage Goode DO Attending Provider Ilda Peck MD Primary Care Provider [phone] Scot Hutchison MD Attending Provider Sage Goode DO Attending Provider [phone] Scot Hutchison MD Other Provider [facility] DOArturo Attending Provider Foster JONES, Scot Pompa Admitting Unavailabl e Ilda Peck Primary Care Unavailable Foster II, Scot Pompa Attending Unavailabl e Foster II, Scot Pompa Attending Unavailabl e Ilda Peck Primary Care Unavailable [place] II, Scot Pompa Admitting Unavailabl e [facility], Arturo Grey Admitting Unavailable [facility], Arturo Grey Attending Unavailable Ilda Peck Primary Care Unavailable Foster II, Scot Pompa Attending Unavailabl e Ilda Peck Primary Care Unavailable Foster II, Scot Pompa Admitting Unavailabl e Foster II, Scot Pompa Attending Unavailabl e [place] II, Scot Pompa Admitting Unavailabl e Ilda Peck Primary Care Unavailable [place] II, Scot Pompa Admitting Unavailabl e Ilda Peck Primary Care Unavailable [place] II, Scot Pompa Attending Unavailabl e Allergies Allergy ClassificationReported Allergen(s)Allergy TypeDate of OnsetReaction(s) Facility (9 sources)Ciprofloxacin; Translations: [ciprofloxacin]Drug [id number] Patient reported problems (finding)[facility] [place] (1 source)Ciprofloxacin; Translations: [Cipro][facility] ([facility] source)No Known Medication Allergies; Translations: [No Known Medication Allergies]Propensity to adverse reactions (disorder)[facility] (1 source)CiprofloxacinDrug Nuotgsv00-89-7770[facility] Medications Current Medications MedicationDrug Class(es)DatesSig (Normalized)Sig (Original)acetaminophen 500 mg oral tablet (12 sources)Start: 08-41-6540guky 2 tablets by mouth every eight hoursStart: 38-86-8942ecsu 2 tablets by mouth every four hours as neededacetaminophen (TYLENOL) 325 MG tablet Take 2 Tabs by mouth every 4 hours as needed. 30 Tab 30 06/27/2011 Activeamantadine hydrochloride 100 mg oral capsule (20 sources)Influenza A M2 Protein InhibitorStart: 84-35-8416coxv 1 mg by mouth twice dailyamantadine 100 mg Cap mg cap(s), Oral, BID, Refills(s) 0 Start Date: 05/07/19 Status: OrderedStart: 12-25-2017 End: 86-08-5371ustp 1 capsule by mouth once dailyamantadine (SYMMETREL) 100 MG capsule TAKE 1 CAPSULE BY MOUTH EVERY DAY 90 Capsule 09/22/2023 Activetake 1 tablet by mouth every twenty-four hoursAmantadine HCl 100 MG 1 tablet Orally Once a day Active End: 22-99-0845AGLZHCPOCN HCL ORAL Take by mouth. 0 04/26/2023 Discontinued (Course of therapy completed)Comment on above:Take 100 mg by mouth once daily. Take by mouth.apixaban 5 mg oral tablet (20 sources)Factor Xa InhibitorStart: 35-85-7569bimu 1 tablet by mouth twice daily End: 72-18-8412utrw 1 tablet by mouth in the morningapixaban (Eliquis) 2.5 MG tablet Take 2.5 mg by mouth in the morning and 2.5 mg before bedtime. 06/12/2024 Discontinued (Duplicate order)ascorbic acid 1000 mg oral tablet (20 sources)Vitamin CStart: 78-21-4817ydcj 1 tablet by mouth once daily in the morningStart: 78-04-1407Ojxrryq C Daily, Refills(s) 0 Start Date: 05/07/19 Status: OrderedStart: 94-41-5487Qojkzhdw Acid (VITAMIN C) 100 mg tablet Daily, Refills(s) 0 0 05/07/2019 Activetake 1 tablet by mouth once dailyascorbic acid (Vitamin C) 1000 MG ER tablet Take 1,000 mg by mouth Daily ActiveAscorbic Acid (Vitamin C) 100 MG CHEW Vitamin C Active End: 17-79-0007wtuz 1 tablet by mouth once dailyascorbic acid, vitamin C, (ascorbic acid with steph hips) 500 mg tablet Take 500 mg by mouth daily. 0 02/18/2025 Discontinued (Therapy completed) End: 73-96-9334CXLVEEHZ ACID (VITAMIN C ORAL) Indications: Leukopenia, unspecified type , Thrombocytopenia (HCC) ,Hypothyroidism, unspecified type Take 1,000 mg by mouth. 0 04/26/2023 Discontinued (Course of therapy completed) Comment on above: Daily, Refills(s) 0Take 1,000 mg by mouth.carvedilol 6.25 mg oral tablet (4 sources)alpha-Adrenergic Nalini, beta-Adrenergic BlockerStart: 08-03-2023 End: 68-79-6681sbav 1 tablet by mouth in the morning, [...] a day Activecefadroxil 500 mg oral capsule (6 sources)Cephalosporin AntibacterialStart: 06-65-1993ycar 1 capsule by mouth every twelve hourscholecalciferol 0.05 mg oral tablet (15 sources)Vitamin DStart: 85-48-6809cyoq 1 tablet by mouth once daily in the morningtake 1 tablet by mouth once dailycholecalciferol (Vitamin D-3) 125 MCG (5000 UT) tablet Take 5,000 Units by mouth Daily Activechondroitin sulfates 400 mg / glucosamine hydrochloride 500 mg oral tablet (5 sources) End: 49-52-5873elsd 3 tablets by mouth once dailyglucosamine-chondroitin 500-400 mg tablet Take 3 tablets by mouth daily. 02/18/2025 Discontinued (Therapy completed) End: 82-66-6871ztir 750 mg by mouth once dailyGLUCOSAMINE HCL/CHONDROITIN ARANDA (GLUCOSAMINE-CHONDROITIN) 750-600 mg chew Take 750 mg by mouth once daily. 0 04/26/2023 Discontinued (Course of therapy completed)Comment on above:Take 750 mg by mouth once daily.Cpap (Continuous Positive Airway Pressure) unit (6 sources)Start: 79-25-7010Ehyk (Continuous Positive Airway Pressure) unit Active 0 .Route 1 0 July 13, 2025 11:00pm new mask and CPAP supplies x 1 year. dx NANCY HartStart: 41-82-2557Okdg (Continuous Positive Airway Pressure) unit Active 0 .Route 1 July 14, 2025 12:00am new mask and CPAP supplies x 1 year. dx NANCY HartDepo-Testosterone 200 mg/mL intramuscular solution (3 sources)Start: 89-46-4280Ypqk-Testosterone 200 mg/mL intramuscular solution 300 mg, IntraMuscular, q4wk, # 10 mL, Refills(s)1, Pharmacy: [facility]/pharmacy #[id number], 167, cm, 10/05/21 11:32:00 EST, Height/Length Dosing, 83, kg, 10/05/21 11:32:00 EST, Weight Dosing Start Date: 01/04/22 Status: Ordereddexpanthenol 2 mg/ml / niacinamide 100 mg/ml / riboflavin 2 mg/ml / thiamine 100 mg/ml / vitamin b62 mg/ml injectable solution (12 sources)Start: 31-64-7281Mbmdzyr B Complex injectable solution Refill(s) 0 Start Date: 05/07/19 Status: OrderedComment on above: Refill(s) 0dilTIAZem hydrochloride 120 mg oral tablet (4 sources)Calcium Channel Nalini End: 67-76-5828scgu 1 tablet by mouth once dailydiltiazem (CARDIZEM) 120 MG tablet Take 120 mg by mouth daily. 02/18/2025 Discontinued (Therapy completed) docosahexaenoic acid 120 mg / eicosapentaenoic acid 180 mg oral capsule (6 sources)take 1 capsule by mouth once dailyOmega-3 Fatty Acids (FISH OIL) 1000 MG CAPS Take 1 Capsule by mouth daily. ActiveDOCOSAHEXANOIC ACID/EPA (FISH OIL ORAL) (4 sources) End: 36-02-6678wjnv 1200 mg by mouth once dailyDOCOSAHEXANOIC ACID/EPA (FISH OIL ORAL) Take 1,200 mg by mouth daily. 02/18/2025 Discontinued (Therapy completed) take 1200 mg by mouth once dailyDOCOSAHEXANOIC ACID/EPA (FISH OIL ORAL) Take 1,200 mg by mouth daily. Activetake 1200 mg by mouth once dailyDOCOSAHEXANOIC ACID/EPA (FISH OIL ORAL) Take 1,200 mg by mouth daily. 0 Activedocusate sodium 50 mg / sennosides, nursing home 8.6 mg oral tablet (6 sources)Start: 47-38-0292vhnv 2 tablets by mouth once dailyFish Oils (9 sources)Start: 12-93-3508Irzc Oil Oral, Refill(s) 0 Start Date: 05/07/19 [...] mg oral tablet (20 sources)l-ThyroxineStart: 06-11-2025 End: 97-78-3361evlp 1 tablet by mouth once daily in the morningStart: 05-19-2025 End: 99-50-7895mjps 1 tablet by mouth once daily before mealtimelevothyroxine (Synthroid, Levoxyl) 100 MCG tablet Indications: Sarah's disease TAKE 1 TABLET BYMOUTH ONCE EVERY MORNING BEFORE MEALS 90 tablet 3 05/19/2025 06/11/2025 Discontinued (Dose adjustment)Start: 31-17-7862njki 1 tablet by mouth before mealtimelevothyroxine (Synthroid, Levoxyl) 100 MCG tablet Indications: Sarah's disease (CMS/HCC) Take 1tablet (100 mcg) by mouth in the morning. Take before meals. 90 tablet 3 06/12/2024 ActiveStart: 77-03-3217dauc 1 tablet by mouth before mealtimelevothyroxine (Synthroid, Levoxyl) 100 MCG tablet Indications: Sarah's disease (CMS/HCC) Take 1tablet (100 mcg) by mouth in the morning. Take before meals. 90 tablet 3 06/12/2024 ActiveStart: 06-06-2024 End: 18-77-0121edbj 1 tablet by mouth once dailyLevothyroxine 100 mcg tablet Discontinued 100 MCG PO Daily June 05, 2024 11:00pm July 23, 2025 8:08amStart: 17-35-8917azrc 1 tablet by mouth once dailylevothyroxine 150 mcg (0.15 mg) Tab 150 mcg = 1 tab(s), Oral, Daily, Refills(s) 0 Start Date: 05/07/19 Status: OrderedStart: 40-70-3864fytu 1 tablet by mouth once dailylevothyroxine (SYNTHROID) 150 MCG tablet Take 1 Tablet by mouth daily. 30 Tablet 3 02/08/2017 ActiveStart: 99-88-2934vtvvajeovrdgr (SYNTHROID, LEVOTHROID) 175 MCG tablet Take 150 mcg by mouth once daily. 11 08/25/2016 ActiveComment on above:Take 150 mcg by mouth once daily. liothyronine sodium 0.025 mg oral tablet (20 sources)l-TriiodothyronineStart: 78-22-7098tlkm 12.5 ug by mouth once daily Liothyronine Active 12.5 MCG PO Daily June 06, 2024 12:00amStart: 34-73-2709ffib 1 tablet by mouth once dailyliothyronine 25 mcg Tab 25 mcg = 1 tab(s), Oral, Daily, Refills(s) 0 Start Date: 05/07/19 Status: OrderedStart: 02-08-2017 End: 40-96-0850hzpu 1 tablet by mouth once daily in the morning End: 13-06-3389yaab 0.5 tablet by mouth once dailyliothyronine (Cytomel) 25 MCG tablet Take 25 mcg by mouth Daily Take 0.5 tabs po qd 06/11/2025 Discontinued (Reorder)Comment on above:Take 25 mcg by mouth once daily.lisinopril 10 mg oral tablet (9 sources)Angiotensin Converting Enzyme InhibitorStart: 97-81-5991twqe 1 tablet by mouth once daily in [...] daily.memantine hydrochloride 5 mg oral tablet (6 sources)D-hvfwab-N-aspartate Receptor AntagonistStart: 07-20-2022 End: 18-68-2084bxcl 1 tablet by mouth once dailymemantine (NAMENDA) 5 MG tablet Take 1 Tablet by mouth daily. 30 Tablet 3 07/20/2022 Activeondansetron 8 mg oral tablet (2 sources)Serotonin-3 Receptor AntagonistStart: 35-18-1020zsur 1 tablet by mouth three times daily as needed for nauseaoxyCODONE hydrochloride 5 mg oral tablet (6 sources)Opioid AgonistStart: 54-15-2336qsnz 1 tablet by mouth every four hours as needed for painpantoprazole 20 mg delayed release oral tablet (6 sources)Proton Pump InhibitorStart: 91-62-6881ffwl 1 tablet by mouth once dailypolyethylene glycol 3350 51844 mg powder for oral solution (6 sources)Osmotic LaxativeStart: 64-55-3299xqzvvpHGUR 10 mg oral tablet (6 sources)Start: 70-19-4063pzqd 1 tablet by mouth once dailytamsulosin hydrochloride 0.4 mg oral capsule (20 sources)alpha-Adrenergic BlockerStart: 11-24-2021 End: 19-76-6635msav 1 capsule by mouth twice dailyFlomax 0.4 mg Cap 0.4 mg = 1 cap(s), Oral, BID, X 90 day(s), # 180 cap(s), Refills(s) 3, Pharmacy: [facility]/pharmacy #[id number], 167, cm, 10/05/21 11:32:00 EST, Height/Length Dosing, 83, kg, 10/05/21 11:32:00 EST, Weight Dosing Start Date: 11/24/21 Stop Date: 11/19/22 Status: OrderedStart: 10-75-4224ttge 1 capsule by mouth once daily in the morningtake 1 capsule by mouth every twenty-four hours in the morningtamsulosin (FLOMAX) 0.4 mg capsule,extended release 24hr Take 1 capsule (0.4 mg total) by mouth in the morning. ActiveComment on above:0.4 mg once daily. testosterone cypionate 200 mg/ml injectable solution (18 sources)AndrogenStart: 17-61-7193Vtai-Testosterone 200 mg/mL intramuscular solution 300 mg, IntraMuscular, q4wk, # 10 mL, Refills(s)1, [id number], cm, 12/02/22 8:17:00 EST, Height/Length Dosing, 83.2, kg, 12/02/22 8:17:00 EST, Weight Dosing Start Date: 05/03/23 Status: OrderedStart: 47-55-6375Acfx-Testosterone 200 mg/mL intramuscular solution 300 mg, IntraMuscular, q4wk, # 10 mL, Refills(s)1, [id number], cm, 10/05/21 11:32:00 EST, Height/Length Dosing, 83, kg, 05/10/22 10:08:00 EDT, Weight Dosing Start Date: 09/07/22 Status: OrderedStart: 82-23-4961Bcsy- Testosterone 200 mg/mL intramuscular solution 300 mg, IntraMuscular, q4wk, # 10 mL, Refills(s)1, [id number] 167, cm, 10/05/21 11:32:00 EST, Height/Length Dosing, 83, kg, 10/05/21 11:32:00 EST, Weight Dosing Start Date: 01/04/22 Status: OrderedStart: 61-00-8997wbjfpfwtagqy cypionate (DEPO- TESTOSTERONE) 200 MG/ML injection Inject 200 mg into the muscle once amonth. 12/10/2018 ActiveTestosterone Cypionate 200 MG/ML 1.5 mL Intramuscular EVERY 4 WEEKS ActiveComment on above:INJECT 1ML INTRAMUSCULARLY EVERY MONTHtraMADol hydrochloride 50 mg oral tablet (6 sources)Opioid AgonistStart: 08-22-7530nooe 1 tablet by mouth every six hours as needed for painVitamin B Complex injectable solution (3 sources)Start: 04-55-2978Mvvuyim B Complex injectable solution Refill(s) 0 Start Date: 05/07/19 Status: OrderedVitamin D (17 sources)Start: 02-88-8858Wsynqoi D International_Unit, Oral, qWeek, Refills(s) 0 Start Date: 08/31/21 Status: Ordered Completed/Discontinued Medications MedicationDrug Class(es)DatesSig (Normalized)Sig (Original)aspirin 325 mg delayed release oral tablet (5 sources)Platelet Aggregation Inhibitor, Nonsteroidal Anti-inflammatory Drug Start: 01-09-2018 End: 60-03-5905latl 1 tablet by mouth once dailyaspirin, enteric coated (ASPIRIN, ENTERIC COATED) 325 mg EC tablet Take 325 mg by mouth once daily.2 01/09/2018 04/26/2023 Discontinued (Course of therapy completed) End: 10-97-0742mkpr 1 tablet by mouth in the morningaspirin 325 mg tablet Take 1 tablet (325 mg total) by mouth in the morning. 02/18/2025 Discontinued(Therapy completed)Comment on above:Take 325 mg by mouth once daily.atomoxetine 60 mg oral capsule (1 source)Norepinephrine Reuptake Inhibitor End: 64-68-5819bivb 1 capsule by mouth once dailyatomoxetine (STRATTERA) [...] doseBupivacaine (4 sources)Amide Local AnestheticStart: 02-18-2025 End: 19-20-217158 mg, intra-articular, One-Time Injection, Starting on Mon02/18/25 at 1056, For 1 doseStart: 10-08-2024 End: 68-34-181768 mg, intra-articular, One-Time Injection, Starting on Mon10/08/24 at 1440, For 1 doseStart: 06-11-2024 End: 75-72-090314 mg, intra-articular, One-Time Injection, Starting on Mon06/11/24 at 1129, For 1 doseStart: 11-02-2023 End: 60-29-9959EVAhweioyys HCl (MARCAINE) 0.5 % (5 mg/mL) injection 30 mg Creatine (1 source) End: 74-57-8502YMOECMTU MONOHYDRATE (CREATINE ORAL) Indications: Leukopenia, unspecified type [...] at 1440, For 1 doseStart: 06-11-2024 End: 48 mg, intra-articular, One-Time Injection, Starting on Mon06/11/24 at 1129, For 1 doseStart: 11-02-2023 End: 45-78-4093vypPLQVArljhr (DECADRON) injection 8 mgfolic acid 1 mg oral tablet (1 source)Start: 02-05-2018 End: 80-36-2494cvjp 1 tablet by mouth once dailyfolic acid 1 mg tablet TAKE ONE TABLET BY MOUTH DAILY 30 tablet 5 02/05/2018 04/26/2023 Discontinued (Course of therapy completed)Comment on above:TAKE ONE TABLET BY MOUTH DAILYhydrALAZINE hydrochloride 25 mg oral tablet (20 sources)Arteriolar VasodilatorStart: 05-07-2024 End: 01-61-8530nxqv 1 tablet by mouth three times dailyHydralazine 25 mg tablet Discontinued 25 MG PO Three times daily June 05, 2024 11:00pm May 13, 2025 10:22amomega-3 fatty acids (FISH OIL CONCENTRATE) 1,000 mg cap (1 source)take 1 capsule by mouth twice dailyomega-3 fatty acids (FISH OIL CONCENTRATE) 1,000 mg cap Take 2 g by mouth twice daily. 0 ActiveComment on above:Take 2 g by mouth twice daily.omega-3s/dha/epa/fish oil/D3 (VITAMIN-D + OMEGA-3 ORAL) (1 source)Start: 14-25-2378qyrcx-3s/dha/epa/fish oil/D3 (VITAMIN-D + OMEGA-3 ORAL) Take by mouth. 0 08/31/2021 ActiveComment on above:Take by mouth. Problems Active Problems Problem ClassificationProblemDateDocumented DateEpisodic/ChronicAcute cerebrovascular disease (1 source)Cerebrovascular accident; Translations: [Cerebral infarction, unspecified]25-79-4126TlryadyLpyflbqfqw disorders (5 sources)Specific academic or work inhibition; Translations: [Specific academic or work inhibition as adjustment reaction]Onset: ChronicAsthma (1 source)Asthmatic bronchitis; Translations: [Unspecified asthma, uncomplicated]36-76-1354CxbesbpJhiqqgt dysrhythmias (20 sources)Atrial fibrillation; Translations: [Unspecified atrial fibrillation] Onset: 833046-84-4417MyrnvvyTnfgimi kidney disease (12 sources)Chronic kidney disease stage 3; Translations: [Chronic kidney disease, stage III (moderate)]32-01-7022CrcigvqXlmpflrhxgs and hemorrhagic disorders (14 sources)Platelet count below reference range; Translations: [Thrombocytopenia, unspecified]Onset: 786849-05-8735JncsplqQwmyphybhv associated with dizziness or vertigo (1 source)Vertigo; Translations: [Dizziness and giddiness]24-82-8825Pbrmnscb Congestive heart failure; nonhypertensive (3 sources)Acute combined systolic and diastolic heart -85-5340Floeeai Diseases of white blood cells (7 sources)Neutropenia, unspecified; Translations: [Neutropenia]Onset: 44-13-5076OtzarsuLsrjcldlo usually diagnosed in infancy, childhood, or adolescence (5 sources)Attention deficit hyperactivity disorder, predominantly inattentive type; Translations: [Other specified behavioral and emotional disorders with onset usually occurring in childhood and adolescence]Onset: ChronicEssential hypertension (5 sources)Hypertensive disorder; Translations: [Essential (primary) hypertension]Onset: 855153-22-5561CyblopuRvsntaeukuywu symptoms and ill- defined conditions (5 sources)Urge incontinence; Translations: [Urge incontinence of urine]Onset: 45-16-7102GifipvpEgilrcybcvead symptoms and ill-defined conditions (20 sources)Nocturia; Translations: [Poor stream of urine]32-69-7146Hfbmtkhc Hyperplasia of prostate (20 sources)Benign prostatic hypertrophy with outflow obstruction; Translations: [Benign prostatic hyperplasia with lower urinary tract symptoms]Onset: 636427-89-9293RofnlylPuitenrmfssg with complications and secondary hypertension (17 sources)Chronic kidney disease due to hypertension; Translations: [Hypertensive chronic kidney disease withstage 1 through stage 4 chronic kidney disease, or unspecified chronic kidney disease]Onset: 29-17-8811Knuuzmb Miscellaneous mental health disorders (1 source)Unspecified persistent mental disorders due to conditions classified elsewhereOnset: 864870-25-6954CshzjhhYfbu wounds of extremities (1 source)Puncture wound of thumb of left hand; Translations: [Puncture wound with foreign body of left thumbwithout damage to nail, initial encounter]Onset: 83-96-5230IyjtlslxBxpijidlozhshi (20 sources)Bilateral arthritis of knees; Translations: [Bilateral primary osteoarthritis of knee]Onset: 226723-22-7984QfliizzGstaytknnenz (9 sources)Osteoporosis; Translations: [Age-related osteoporosis without current pathological fracture]96-49-7448PertkvaFksep aftercare (4 sources)Long-term current use of 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; 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]Onset: 06-39-3340KrtvavqxTntsk aftercare (9 sources)Long-term current use of drug therapy; Translations: [Other senior care (current) drug therapy]86-63-5700VzbzcihlKlulr and ill-defined cerebrovascular disease (3 sources)Cerebrovascular dxoeyaq68-54-8667QrzmmvfRjjjz circulatory disease (1 source)Orthostatic hypotension; Translations: [Orthostatic hypotension] 35-10-6485GxpzssssGiunm connective tissue disease (10 sources)History of total knee arthroplasty; Translations: [Presence of left artificial knee joint]Onset: 713772-61-3417MzgizdaAnyrf connective tissue disease (1 source)Knee joint replacementOnset: 269606-64-7907BhvvfroDeeau connective tissue disease (1 source)Decrease in height; Translations: [Loss of height]43-83-1792Fwhincqo Other diseases of kidney and ureters (1 source)Secondary hyperparathyroidism; Translations: [Secondary hyperparathyroidism of renal origin]ChronicOther diseases of kidney and ureters (1 source)Secondary hyperparathyroidism of renal originChronicOther diseases of kidney and ureters (2 sources)Cyst of kidney, acquired; Translations: [Cystic kidney disease, unspecified]EpisodicOther diseases of kidney and ureters (10 sources)Cyst of kidney; Translations: [Cyst of kidney, acquired]06-05-2024 EpisodicOther endocrine disorders (12 sources)Testicular hypofunction; Translations: [Testicular hypofunction] Onset: 78-47-8624RiwpiblVixig endocrine disorders (17 sources)Male xrfodsfztlrm02-29-6269CfsjfuxZkqos endocrine disorders (5 sources)Testicular hypofunction; Translations: [TESTICULAR HYPOFUNCTION] Onset: 91-71-5140DnuddgwTgwtq endocrine disorders (4 sources)Testicular hyperfunction; Translations: [TESTICULAR HYPERFUNCTION] Onset: 08-71-3975TpyornbPfwry injuries and conditions due to external causes (17 sources)H/O: head uaaytr10-70-2199HgkydvnmYzmar lower respiratory disease (14 sources)Snoring; Translations: [Snoring]98-21-9487UperbrlsDxsur male genital disorders (17 sources)Secondary erectile wujxpgmlrbo27-68-5361IdcvtwxZedri male genital disorders (8 sources)Male erectile dysfunction, unspecified; Translations: [Erectile dysfunction]Onset: 55-31-6570UudeqatOpron nervous system disorders (5 sources)Disturbance of attention; Translations: [Attention and concentration deficit]Onset: 750951-05-1776OrzbhhuGwnlx nervous system disorders (5 sources)Impaired executive functioning; Translations: [Frontal lobe and executive function deficit]Onset: 888596-86-3569ZhwscweNfimd nervous system disorders (5 sources)Cognitive deficit in communication skills; Translations: [Cognitive communication deficit]Onset: 349113-26-5242GikcsdtDzmwm nervous system disorders (1 source)Aphasia; Translations: [Aphasia]61-01-6296IeggdkwYmnbn nervous system disorders (1 source)Attention or concentration deficitOnset: 973659-15-4703Ditvqbu Other nervous system disorders (1 source)Frontal lobe and executive function deficitOnset: ChronicOther nervous system disorders (1 source)Cognitive communication deficitOnset: 634754-36-3194CtcrqscRzkec nervous system disorders (1 source)Other symptoms and signs involving cognitive functions and awareness; Translations: [Other signs and symptoms involving cognition]EpisodicOther nervous system disorders (1 source)Dysarthria; Translations: [Dysarthria and anarthria]46-53-8234Notwpxlo Other non-traumatic joint disorders (1 source)Arthropathy, unspecified, lower legOnset: 845518-07-5098Fahxtbc Other non-traumatic joint disorders (1 source)Pain in right knee; Translations: [Pain in right knee]Onset: 62-61-3686EgsrebqlBokiy nutritional; endocrine; and metabolic disorders (4 sources)Overweight in adulthood with body mass index of 25 or more but less than 30; Translations: [Body mass index (BMI) 28.0-28.9, adult]EpisodicOther nutritional; endocrine; and metabolic disorders (3 sources)Rsxqxfdpgd27-19-2281SizohhnfXyiva screening for suspected conditions (not mental disorders or infectious disease) (2 sources)Encounter for screening for malignant neoplasm of prostate; Translations: [Screening for malignant neoplasm of colon done]Onset: 03-09-2022 EpisodicResidual codes; unclassified (9 sources)Sleep apnea; Translations: [Sleep apnea, unspecified]Onset: 608277-83-0727TldgdvoJaemflcs codes; unclassified (20 sources)Obstructive sleep apnea syndrome; Translations: [Obstructive sleep apnea (adult) (pediatric)]Onset: 083961-44-6784UuiyanhMxeqebrv codes; unclassified (2 sources)Obstructive sleep apnea (adult) (pediatric); Translations: [Obstructive sleep apnea (adult)(pediatric)]ChronicResidual codes; unclassified (20 sources)Hypersomnia; Translations: [Hypersomnia, unspecified]Onset: 304499-04-3105NdhtzruBdlorubk codes; unclassified (3 sources)Periodic limb movement disorder; Translations: [Periodic limb movement disorder]Onset: 836387-58-8858NxeezkyBsuxbbgr codes; unclassified (1 source)Unspecified sleep apneaOnset: 685628-14-1338QtbqewqKhzfzfwt codes; unclassified (3 sources)Periodic leg movements of sleep ; Translations: [Periodic limb movement disorder]Onset: 943949-34-9236SwtajojAuqsbbtd codes; unclassified (2 sources)Sleep deprivation; Translations: [Sleep deprivation]07-17-2024 EpisodicResidual codes; unclassified (1 source)Contact with and (suspected) exposure to potentially hazardous body fluids; Translations: [Contact with and (suspected) exposure to potentially hazardous body fluids]Onset: 61-10-0580FpnlzokaZjjufowalmr; intervertebral disc disorders; other back problems (15 sources)Cervical spondylosis; Translations: [Other spondylosis with myelopathy, cervical region]Onset: 355148-38-0086GevvotvWshtngiedws; intervertebral disc disorders; other back problems (20 sources)Cervical spine ankylosis; Translations: [Fusion of spine, cervical region]Onset: 398578-08-5313CscdgspbKokdjlk disorders (20 sources)Hypothyroidism; Translations: [Hypothyroidism, unspecified]Onset: 06-28-2011 Resolved: 760685-33-1366EbrxwjrSeazgccodkho (3 sources)Patient encounter -47-1107Ykvjyfpaqizb (2 sources)Puncture wound of left thumb with foreign yguj12-86-5008Ldizhdogkxyt (2 sources)Other persistent atrial fibrillation; Translations: [Other persistent atrial fibrillation]Onset: 11-27-2023 Past or Other Problems Problem ClassificationProblemDateDocumented DateEpisodic/ChronicAllergic reactions (10 sources)Eczema; Translations: [Dermatitis, unspecified]Onset: 05-29-2019 19-12-3820RgebxcvxBcztyju kidney disease (1 source)Chronic kidney diseaseDeficiency and other anemia (6 sources)Anemia; Translations: [Anemia, unspecified]Onset: 12-06-2017 86-65-6975PpuuvfcuZvigblewpq and other anemia (1 source)Anemia, unspecifiedOnset: 012556-54-7076TeyyfmazSemwgznsmabx injury (7 sources)Traumatic brain injury; Translations: [Unspecified intracranial injury with loss of consciousness of unspecified duration, initial encounter] Onset: 058083-51-6649AvxwausiFbckirklssf deficiencies (10 sources)Cobalamin deficiency; Translations: [Deficiency of other specified B group vitamins]Onset: 651551-23-9628EriqagxzAivgw aftercare (1 source)Care involving other physical therapyOnset: EpisodicOther aftercare (1 source)Encounter for occupational therapyOnset: 060965-94-8592Woxumxlt Other aftercare (1 source)Encounter for vocational therapyOnset: 682782-52-1742Vmgmqpao Other circulatory disease (2 sources)Personal history of other diseases of the circulatory system; Translations: [Personal history of other diseases of the circulatory system] Onset: 58-48-8070NniuhxfmSotul connective tissue disease (5 sources)Muscle weakness; Translations: [Muscle weakness (generalized)]Onset: 454637-12-8777MjypckofIjzba connective tissue disease (1 source)Impingement syndrome of left shoulder; Translations: [IMPINGEMENT SYNDROME LEFT SHOULDER]Onset: 69-38-4198SddxzpknBeqwg connective tissue disease (1 source)Impingement syndrome of right shoulder; Translations: [IMPINGEMENT SYNDROME RIGHT SHOULDER]Onset: 94-11-4591TbrqezwdLllrp connective tissue disease (1 source)Muscle weakness (generalized)Onset: 829051-11-0380RndkddcmQvafm nervous system disorders (5 sources)Incoordination; Translations: [Unspecified lack of coordination] Onset: 310001-37-5764EaihloycKrcuo nervous system disorders (5 sources)Impaired cognition; Translations: [Other symptoms and signs involving cognitive functions and awareness]Onset: 631789-06-4591KlacomhjBqiht nervous system disorders (1 source)Lack of coordinationOnset: 300177-07-5753RnafrmbvTrktr skin disorders (1 source)Vitiligo; Translations: [Vitiligo]Onset: 973366-11-7819Tzxtarla Rehabilitation care; fitting of prostheses; and adjustment of devices (15 sources)Patient encounter status; Translations: [Other physical therapy] Onset: 405764-54-3728GnfccdloVsrxjnqs codes; unclassified (10 sources)Amnesia; Translations: [Other amnesia]Onset: EpisodicResidual codes; unclassified (2 sources)Memory lossOnset: 405294-28-6273XivaasyrJeawevgc codes; unclassified (2 sources)Other specified postprocedural states; Translations: [Other specified postprocedural states]Onset: 57-35-0916OgqpwrrmUoxhdhjhcex injury; contusion (6 sources)Traumatic hematoma; Translations: [Contusion of unspecified part of head, initial encounter]Onset: 349745-34-2443ItdxqxcvDeyxl infection (7 sources)Verruca vulgaris; Translations: [Viral wart, unspecified]Onset: 258993-68-2800Jcpjxgoo Results Test NameValueInterpretationReference RangeFacilityComplete Blood Count Auto Diffon 23-49-8829Htnkkgpsl (Bld) [#/Vol]0.0 10*3/uLNormal0.0-0.2The [facility] Physician GroupComment on above:Result Comment: PERFORMED BY: [place] [address] PATHOLOGIST CHARGE MANAGER ABBY THORNTON M.D.Performed By: #### CBC #### [place] [address] USABasophils/100 WBC (Bld)1.3 %Normal.The [facility] Physician GroupComment on above:Performed By: #### CBC #### [place] [address] USAEosinophils (Bld) [#/Vol]0.1 10*3/uLNormal0.0-0.45The [facility] Physician GroupComment on above:Performed By: #### CBC #### [place] [address] USAEosinophils/100 WBC (Bld)3.2 %Normal.The [facility] Physician GroupComment on above:Performed By: #### CBC #### [place] [address] USAErythrocyte distribution width (RBC) [Ratio]14.1 %Normal 12.0-14.8The [facility] Physician GroupComment on above:Performed By: #### CBC #### [place] [address] USAHematocrit (Bld) [Volume fraction]44.8 %Qasxhu25.8-50.0The [facility] Physician GroupComment on above:Performed By: #### CBC #### [place] [address] USAHemoglobin (Bld) [Mass/Vol]15.3 g/jZMvtnhm35.0-17.0The [facility] Physician GroupComment on above:Performed By: #### CBC #### [place] [address] USALymphocytes (Bld) [#/Vol]0.8 10*3/uLLow1.00-4.8The [facility] Physician GroupComment on above:Performed By: #### CBC #### [place] [address] USALymphocytes/100 WBC (Bld)25.2 %Normal.The [facility] Physician GroupComment on above:Performed By: #### CBC #### [place] [address] USAMCH (RBC) [Entitic mass]30.1 xqHzlsve35.5-35.2The [facility] Physician GroupComment on above:Performed By: #### CBC #### [place] [address] USAMCV (RBC) [Entitic vol]88.0 wBZejnqp31.5-101The [facility] Physician GroupComment on above:Performed By: #### CBC #### [place] [address] USAMean Corpuscular HGB Conc34.2 g/iAWdwuob13.5-35.6The [facility] Physician GroupComment on above:Performed By: #### CBC #### [place] [address] USAMonocytes (Bld) [#/Vol]0.3 10*3/uLNormal0.0-0.8The [facility] Physician GroupComment on above:Performed By: #### CBC #### [facility] [address] [place] [address] USAMonocytes/100 WBC (Bld)10.3 %Normal.The [facility] Physician GroupComment on above:Performed By: #### CBC #### [facility] [address] [place] [address] USANeutrophils (Bld) [#/Vol]1.9 10*3/uLNormal1.8-7.7The [facility] Physician GroupComment on above:Performed By: #### CBC #### [facility] [address] [place] [address] USANeutrophils/100 WBC (Bld)60.0 %Normal.The [facility] Physician GroupComment on above:Performed By: #### CBC #### [facility] [address] [place] [address] USANRBC%0.2 /100{WBC}Normal0-0.5The [facility] Comment on above:Performed By: #### CBC #### [facility] [address] [place] [address] USAPlatelet mean volume (Bld) [Entitic vol]7.6 fLNormal 6.6-10.1The [facility] Physician GroupComment on above:Performed By: #### CBC #### [facility] [address] [place] [address] USAPlatelets (Bld) [#/Vol]134 10*3/wUHve626-653Obo [facility] Physician GroupComment on above:Performed By: #### CBC #### [facility] [address] [place] [address] USARBC (Bld) [#/Vol]5.09 10*6/uLNormal3.90-5.60The [facility] Physician GroupComment on above:Performed By: #### CBC #### [facility] [address] [place] [address] USAWBC (Bld) [#/Vol]3.2 10*3/uLLow4.1-10.5The [facility] Physician GroupComment on above:Performed By: #### CBC #### [place] [address] USAWhite Blood Count3.2 [CFU]/mLLow4.1-10.5The [facility] Physician GroupComment on above:Performed By: #### CBC #### [place] [address] USAHIV 1+2 IgG Ab [Presence] in Blood by Rapid immunoassay Ordered By: Arturo Willson on 35-00-5749MNL 1+2 IgG IA.rapid Ql (Bld)Non-Reactive NonreactiveBrown Memorial HospitalHIV Screen ([facility])on 08-04-2025 HIV Screen ([facility])Non-ReactiveNormalNonreactiveThe [facility] Physician Group Comment on above:Order Comment: Which is this, the Source or the Person with the Exposure?: SOURCE Source Medical Record: [id number] Exposed Comment: PERFORMED BY: [place] [address] PATHOLOGIST CHARGE MANAGER ABBY THORNTON M.D.Performed By: #### HBSAB, HCV RX PCR, HBSAG #### [facility] , #### HIV12 #### [place] [address] USAHep C Ab wRfx to Qnt PCRon 22-46-1196Gulxmeusk C Virus AntibodyNon-ReactiveNormalNon ReactiveThe [facility] Physician GroupComment on above:Order Comment: Which is this, the Source or the Person with the Exposure?: SOURCE Source Medical Record: [id number] Exposed By: #### HBSAB, HCV RX PCR, HBSAG #### [facility] , #### HIV12 #### [place] [address] USAInterpretation Hepatitis CCommentNormal.The [facility] Physician GroupComment on above:Order Comment: Which is this, the Source or the Person with the Exposure?: SOURCE Source Medical Record: [id number] Exposed Comment: Not infected with HCV unless early or acute infection is suspected (which may be delayed in an immunocompromised individual), or other evidence exists to indicate HCV infection.Performed By: #### HBSAB, HCV RX PCR, HBSAG #### [facility] , #### HIV12 #### [place] [address] USAHepatitis B Surface Antibodyon 40-96-0190Hyexwnqdz B Surface AntibodyNon-ReactiveNormal.The [facility] Physician GroupComment on above:Order Comment: Which is this, the Source or the Person with the Exposure?: SOURCE Source Medical Record: [id number] Exposed Comment: Non Reactive: Not immune to HBV infection. Anti-HBs undetectable or less than 10 mIU/mL. Reactive: Evidence of HBV immunity. Anti-HBs levels greater than 10 mIU/mL.Performed By: #### HBSAB, HCV RX PCR, HBSAG #### [facility] , #### HIV12 #### [place] [address] USAHepatitis B Surface Antigenon 27-80-4288ZTyNc Screen NegativeNormalNegativeThe [facility] Physician GroupComment on above:Order Comment: Which is this, the Source or the Person with the Exposure?: SOURCE Source Medical Record: [id number] Exposed Comment: Performed at: [facility] [id number] Secretary Bookkeeper: Aleks Ferreira PhD, Phone: [phone] PERFORMED BY: [place] [address] PATHOLOGIST CHARGE MANAGER ABBY THORNTON M.D.Performed By: #### HBSAB, HCV RX PCR, HBSAG #### [facility] , #### HIV12 #### [place] [address] USALon 08-04-2025L Specimen: [id number] Received: 08/04/25 Status: ROYER Sotelo Num: [id number] Spec Type: Surgical Subm Dr: Scot Hutchison MD Tissues: A Synovium-Biopsy or tissue (R KNEE BONE AND TISSUE) Procedures: Bart YEPEZ/Janey L4 Age/ Patient Sex Location Account Attending Physician Vianey Lacey/M [place] [id number] Scot Hutchison MD SPEC NUM: [id number] RECD: 08/04/25 STATUS: ROYER SOTELO NUM: [id number] LADONNA: 08/04/25 [facility] DR: Scot Hutchison MD ENTERED: 08/04/[address]: SPEC TYPE: Surgical DEPT: S ENTERED BY: [id number] RECV BY: [id number] ORDERED: HE, Gross/Micro L4 ORDERED: HE, Gross/Micro L4, USS Pathological Diagnosis Right knee, bone and tissue, right total knee arthroplasty: - Degenerative bone and synovial soft tissue with hemorrhage consistent with degenerative osteoarthritis. Clinical Information Degenerative joint disease right knee Gross Description Received in formalin labeled with the patient's date of , and Corinnenkechi, bone and tissue, right knee are prather-michael, granular bone fragments, 8 x 6 x 3.3 cm in aggregate with detached fragments of fibrofatty tissue, 7.5 x 5.5 x 3 cm in aggregate. The bone is consistent with portions of femoral condyle and tibial plateau. The articular surfaces are remarkable for granular degeneration and eburnation; the medullary bone is michael, firm and uniform. The fibrofatty tissue is sectioned to reveal prather-pink to yellow-michael, glistening and uniform cut surfaces with focal chalky areas. Executive Pilot sections of the chalky tissue are submitted in A1?A2 with A2 anhydrously processed. (2, , U87-5788 A) Microscopic Description Microscopic examination is performed. Specimen: [id number] Received: 08/04/25 Status: ROYER Sotelo Num: [id number] Spec Type: Surgical Subm Dr: Scot Hutchison MD Tissues: A Synovium-Biopsy or tissue (R KNEE BONE AND TISSUE) Procedures: MARLENI, Gross/Micro L4 Patient: Vianey Lacey [id number] (Continued) Specimen: [id number] Received: 08/04/25 (Continued) Signed (signature on file) Julius Knox MD 08/06/25 1425 Specimen: [id number] Received: 08/04/25 Status: ROYER Dena Num: [id number] Spec Type: Surgical Subm Dr: Scot Hutchison MD Tissues: A Synovium-Biopsy or tissue (R KNEE BONE AND TISSUE) Procedures: Bart YEPEZ/Janey L4 Patient: Vianey Lacey [id number] (Continued) Specimen: [id number] Received: 08/04/25 (Continued) CPT Codes 81838, 00087 Specimen: [id number] Received: 08/04/25 Status: ROYER Sotelo Num: [id number] Spec Type: Surgical Subm Dr: Scot Hutchison MD Tissues: A Synovium-Biopsy or tissue (R KNEE BONE AND TISSUE) Procedures: Bart YEPEZ/Janey L4 Patient: Vianey Lacey [id number] (Continued) Signed (signature on file) Julius Knox MD 08/06/25 1425NormH[facility] Physician GroupXR knee RT 2Von 66-46-3593IH knee RT 2[facility] [address] [place] [address] [place] [address] XRay Report Signed Patient: Vianey Lacey MR#: [id number] 3 : 1960 Acct:[id number] Age/Sex: 65 / M ADM Date: 08/04/25 Loc: [place] Room: Type: [facility] Attending Dr: Scot Hutchison II, MD Copies to: Scot Hutchison MD Ordering Provider: Scot Hutchison MD Date of Service: 08/04/25 XR/XR knee RT 2V: Total or partial knee, due in PACU 2 views right knee COMPARISON: 05/13/2025 HISTORY: Postop right knee Gradient heart arthroplasty without hardware complication. Adequate bony alignment without acute displaced fracture. Recent anterior soft tissue postsurgical changes. XR/XR knee RT 2V IMPRESSION: No hardware complication. Impression dictated by: aWqas Jarrell M.D. 08/04/2025 4:19 PM Dictation Location: [place] [address] Transcribed By: [facility] 08/04/25 161 Dictated By: Waqas Jarrell DO 08/04/25 161 Signed By: 08/04/25 1619[facility] Physician GroupAppearance of UrineOrdered By: Scot Hutchison on 35-33-4465Sghlqmzmph (U)ClearNormalClearBrown Memorial HospitalComment on above:Order Comment: Name Collection Type:: Clean- Voided MidstreamPerformed By: #### UA #### [place] [address] USABilirubin Test strip Ql (U)Ordered By: Scot Hutchison on 89-25-0447Bebqjdrqa Ql (U)NegativeNegativeBrown Memorial HospitalColor of Urine by AutoOrdered By: Scot Hutchison on 02-13-8835Ufdts (U)Colorless NormalYellowBrown Memorial HospitalComment on above:Order Comment: Name Collection Type:: Clean-Voided MidstreamPerformed By: #### UA #### [place] [address] USAFructosamineon 22-53-9549Cwxykkhyrqza175 umol/LNormal0-285 The [facility] Physician GroupComment on above:Result Comment: Published reference interval for apparently healthy subjects between age 20 and 60 is 205 - 285 umol/L and in a poorly controlled diabetic population is 228 - 563 umol/L with a mean of 396 umol/L. Performed at: [facility] [id number] Secretary Bookkeeper: Aleks Ferreira PhD, Phone: [phone] PERFORMED BY: [place] [address] PATHOLOGIST CHARGE MANAGER ABBY THORNTON M.D.Performed By: #### FRUC #### [facility] ,Fructosamine [Moles/volume] in Serum or PlasmaOrdered By: Scot Hutchison on 28-53-9775Msafonbjiypz [Moles/Vol]209 umol/L0-285Brown Memorial HospitalComment on above:Published reference interval for apparently healthysubjects between age 20 and 60 is 205 - 285 umol/L and in apoorly controlled diabetic population is 228 - 563 umol/Lwith a mean of 396 umol/L.Performed at: [facility] [id number] Director: Aleks Ferreira PhD, Phone: [phone] [Mass/volume] in Urine by Test stripOrdered By: Scot Hutchison on 07-23-2025 Glucose Test strip (U) [Mass/Vol]Normal mg/dLNormWVUMedicine Barnesville HospitalHemoglobin Test strip Ql (U)Ordered By: Scot Hutchison on 07-23-2025 Hemoglobin Ql (U)NegativeNegativeBrown Memorial HospitalKetones [Presence] in Urine by Test stripOrdered By: Scot Hutchison on 07-23-2025 Ketones Ql (U)NegativeNormalNegGood Samaritan HospitalComment on above:Order Comment: Name Collection Type:: Clean-Voided MidstreamPerformed By: #### UA #### [facility] [address] [place] [address] USALeukocyte esterase [Presence] in Urine by Test strip Ordered By: Scot Hutchison on 19-85-9728Ufzoohjai esterase Test strip Ql (U) NegativeNormalSelect Medical Specialty Hospital - Cleveland-FairhillComment on above:Order Comment: Name Collection Type:: Clean-Voided MidstreamPerformed By: #### UA #### [facility] [address] [place] [address] USANitrite Test strip Ql (U)Ordered By: Scot Hutchison on 65-44-6664Aoulhgx Ql (U)[facility]dena Health SystemProtein Test strip (U) [Mass/Vol]Ordered By: Scot Hutchison on 22-45-5470Skngani (U) [Mass/Vol][facility] Campuspecific gravity Test strip (U) [Rel density]Ordered By: Scot Hutchison on 38-55-3357Iaqcdqxn gravity (U) [Rel density]1.0071.001-1.030[facility] Urinalysison 93-71-6133Kehtqgpnx,UrineNegativeNormalNegativeThe [facility] Physician GroupComment on above:Order Comment: Name Collection Type:: Clean- Voided MidstreamPerformed By: #### UA #### [facility] [address] [place] [address] USAGlucose Ql (U)NormalNormalNormalThe [facility] Physician GroupComment on above:Order Comment: Name Collection Type:: Clean-Voided MidstreamPerformed By: #### UA #### [facility] [address] [place] [address] USANitrite,UrineNegativeNormalNegativeThe [facility] Physician GroupComment on above:Order Comment: Name Collection Type:: Clean-Voided MidstreamPerformed By: #### UA #### [address] [address] USAOccult Blood,UrineNegativeNormalNegativeThe [facility] Physician GroupComment on above:Order Comment: Name Collection Type:: Clean- Voided MidstreamResult Comment: PERFORMED BY: [place] [address] PATHOLOGIST CHARGE MANAGER ABBY THORNTON M.D.Performed By: #### UA #### [facility] [address] [place] [address] USAProtein,UrineNegativeNormalNegativeThe [facility] Physician GroupComment on above:Order Comment: Name Collection Type:: Clean-Voided MidstreamPerformed By: #### UA #### [place] [address] USASpecificy [place],Urine1.438Fxabyq3.001-1.030The [facility] Physician GroupComment on above:Order Comment: Name Collection Type:: Clean- Voided MidstreamPerformed By: #### UA #### [place] [address] USAUrobilinogen,UrineNormalNormalNormalThe [facility] Physician GroupComment on above:Order Comment: Name Collection Type:: Clean- Voided MidstreamPerformed By: #### UA #### [place] [address] USAUrobilinogen Test strip (U) [Mass/Vol]Ordered By: Scot Hutchison on 67-43-0874Oyyktjdmlknx (U) [Mass/Vol]Normal mg/dLNormalBrown Memorial HospitalX-ray reportOrdered By: Waqas Jarrell on 18-67-3815Sxzvu reportAULTMAN ORRVILLE [facility]OSPITAL [facility] [address] [place] [address] XRay Report Signed Patient: Vianey Lacey MR#: [id number] : 1960 Acct:[id number] Age/Sex: 65 / M ADM Date: 5 Loc: [facility] Room: Type: [facility] Attending Dr: Scot Hutchison II, MD Copies to: Scot Hutchison MD~ Ordering Provider: Scot Hutchison MD Date of Service: 07/23/25 XR/XR femur RT 2V*: M17.11 - Unilateral primary osteoarthritis, right knee ([id number]) XR/XR tibia fibula RT 2V*: M17.11 - [...] Jarrell M.D. 07/23/2025 4:02 PM Dictation Location: [place] [address] Transcribed By: [facility] 07/23/25 1602 Dictated By: Waqas Jarrell DO 07/23/25 1559 Signed By: 07/23/25 1602 Brown Memorial HospitalXR tibia fibula RT 2V*on 09-11-0796FV tibia fibula RT 2V*[facility] [address] [place] [address] XRay Report Signed Patient: Vianey Lacey MR#: [id number] 3 : 1960 Acct:[id number] Age/Sex: 65 / M ADM Date: 07/23/25 Loc: [facility] Room: Type: [facility] Attending Dr: Scot Hutchison II, MD Copies to: Scot Hutchison MD Ordering Provider: Scot Hutchison MD Date of Service: 07/23/25 XR/XR femur RT 2V*: M17.11 - Unilateral primary osteoarthritis, right knee ([id number]) XR/XR tibia fibula RT 2V*: M17.11 - [...] Jarrell M.D. 07/23/2025 4:02 PM Dictation Location: [place] [address] Transcribed By: [facility] 07/23/25 1602 Dictated By: Waqas Jarrell DO 07/23/25 1559 Signed By: 07/23/25 1602[facility] Physician GrouppH of Urine by Test stripOrdered By: Scot Hutchison on 52-02-0223wU (U)6.0 [pH]Normal5.0-9.0Brown Memorial HospitalComment on above:Order Comment: Name Collection Type:: Clean- Voided MidstreamPerformed By: #### UA #### [place] [id number] PYZ79ea 92-29-670387Svsharaoj stress test result from 05/29/2025: George Loza [...] Most definitely. No need for bridging. Thanks! for patient's Nitza on her VM. This note faxed to orthopedic office performing his surgery.NormalUnMercy Health St. Charles HospitalOrders Onlyon 59-73-4257Jecvqt [id number] Vianey Lacey 1960 M Date Provider Department [place] 06/02/2025 [id number], HISTORICAL [facility] Family History Problem Relation Age of Onset Cancer Mother Diabetes Mother Coronary artery disease Father Stroke Father Cancer Father Family Status - Relation Status Age at Mother Father Sister Brother DeceasedNormalUniversFostoria City HospitalGlucose mean value [Mass/volume] in Blood Estimated from glycated hemoglobinOrdered By: Scot Hutchison on 76-76-4148Jxxclxw glucose Estimated from glycated hemoglobin (Bld) [Mass/Vol]100 mg/dLBrown Memorial HospitalHemoglobin A1c percentage Ordered By: Scot Hutchison on 51-14-5957MzF2r (Bld) [Mass fraction]5.1 %4.5-6.2 Brown Memorial HospitalComment on above:ADA RECOMMENDED LIMIT 4.0 - 6.0ADA THERAPEUTIC TARGET < 7.0ACTION SUGGESTED> 7.0Laboratory - Chemistry and Chemistry - challengeOrdered By: Scot Hutchison on 27-29-4031Jdocenq [Mass/Vol] 4.2 g/dL3.4-5.0[facility] HospitalNo Panel InformationOrdered By: Scot Hutchison on [id number]-Dtaring Vitamin D Total78.3 ng/mLBrown Memorial HospitalComment on above:<20 ng/mL Vit D -<30 ng/mL Vit D bqcxnkqhxudg58-901 ng/mL Vit D sufficient>100 ng/mL Potential Toxicity Miscellaneous TestCOMMENT.[facility] HospitalComment on above:Test Ordered: [id number] Nicotine and Metabolite, QuantNicotine <1.0 ng/mL Reference Range: .Thistest was developed and its performance characteristicsdetermined by [employer]. It has not been cleared orapproved by the Food and Drug Administration.Nicotine levels greater than 2.0 are consistent with theuse of tobacco or tobacco cessation products.Cotinine <1.0 ng/mL Reference Range: .This test was developed and its performance characteristicsdetermined by [employer]. It has not been cleared orapproved by the Food and Drug Administration.Cotinine levels greater than 20.0 are consistent withtheuse of tobacco or tobacco cessation products.Performed at: [facility] [id number] Director: Nicole Calles MD, Phone: [phone] at: [address] [id number] Director: Aleks Ferreira PhD, Phone: [phone] Regarding lab results from 02/12/2025: MD Lakshmi Stone MA Please let him know that his serum creatinine is normal. Thank you. Patient's informed.[facility] HospitalXR KNEE RT MIN 4 VWSon 86-99-9556DB KNEE RT MIN 4 VWSXR KNEE RT [...] by Shawanda Duncan MD on 02/19/2025 4:30 [facility]$ Large Joint Injection: knee, R kneeon 98-08-0840Gqihjclrkodandres Anthony MD 02/18/2025 11:33 AM $ Large [...] used to prep the skin.). MANUALLY TRANSCRIBED [facility]Or[facility] Onlyon 02-13-2025 Orders [id number] Vianey Lacey 1960 M Date Provider Department Center 02/13/2025 [id number], HISTORICAL MAXWELL Nunez Family History Problem Relation Age of Onset Cancer Mother Diabetes Mother Coronary artery disease Father Stroke Father Cancer Father Family Status - Relation Status Age at Mother Father Sister Brother DeceasedNormalUniCincinnati Shriners HospitalOffice Visiton 33-39-8811Ddylty-up [id number] Vianey Lacey 1960 M Date Provider Department Center 01/21/2025 271-GEORGE LOZA MAXWELL Nunez Family History Problem Relation Age of Onset Cancer Mother Diabetes Mother Coronary artery disease Father Stroke Father Cancer Father Family Status - Relation Status Age at Mother Father Sister Brother Level of Service:89926 SD OFFICE/OUTPATIENT ESTABLISHED MOD MDM 30 [facility]36on [id number]'s would like you to review his most recent labs from 11/20/2024 and see if he should start lisinopril. 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 Nitza says he never started lisinopril because they were keeping an eye on his renal function. Recent BP's have been 141/84, 136/83, 143/87, 141/83. Also, she is looking into buying an infrared sauna, but wasn't sure how you felt about PJ using it with his heart and kidney issues. Please advise. Thanks![facility] HospitalUrology Office/Clinic Noteon 52-05-3985Lfepmss Office/Clinic NoteUrology Office/Clinic Note Chief Complaint 1 year f/u HPI Staff 64yr old male pt here for 1yr f/u with PSA. Previous Dx: BPH with urinary obstruction, hypogonadism male, urge incontinence, ED *Tamsulosin 0.4mg QD PSA 09/06/21 - 0.70 06/15/22 - 0.79 He did have labs done @ [facility] but no PSA Dysuria: denies Incomplete [...] -Cont Tamsulosin wo changes. Refills sent to [facility]. -Complete PSA level soon. Will call pt [...] this time. Follow-up With When Contact Information Vianey SILVERMAN MD, URL [facility] [address], [place] [phone] Additional Instructions: 1 yr w/ PSA and [...] Oral, TID levothyroxine 150 (more content not included)...[facility] CenterComment on above:Result Comment: Electronically Signed By: Vianey SILVERMAN MD\.br\Date and Time Signed: 10/21/24 11:59 EST\.br\Electronically Co- Signed By: Nicki Jackson\.br\Date and Time Co-Signed: 10/21/24 11:57 EST$ Large Joint Injection: R kneeon 80-25-1190Wpnyoelyfjoandres Anthony MD 10/08/2024 2:51 PM $ Large [...] prepped with betadine and alcohol.). MANUALLY TRANSCRIBED RESULTSCherrington HospitalAmbulatory Visit Summaryon 02-36-5920Tchulrbpsv Visit SummaryAmbulatory Visit Summary VIANEY LACEY :1960 [...] Vianey SILVERMAN MD Where: [facility] [address] [address]- Medications What How Much When Instructions Unchanged [...] you for choosing us for your care. [facility] CenterOffice Visiton [id number]- up [id number] Vianey Lacey 1960 M Date Provider Department Center 07/16/2024 BAKARI CARSON [facility]WE[facility] [place] [facility] Family History Problem Relation Age of Onset Cancer Mother Diabetes Mother Coronary artery disease Father Stroke Father Cancer Father Family Status - Relation Status Age at Mother Father Level of Service:97916 SD OFFICE/OUTPATIENT ESTABLISHED LOW MDM 20 [facility]$ Large Joint Injection: R kneeon 06-11-2024 [...] prepped with betadine and alcohol.). MANUALLY TRANSCRIBED [facility]ULTSToledo [facility] SystemUniversity [facility] Onlyon 06-11-2024 Orders [id number] Vianey Lacey 1960 M Date Provider Department Center 06/11/2024 271-NATALIIA, EHAB [facility] V[facility] Family History Problem Relation Age of Onset Cancer Mother Diabetes Mother Coronary artery disease Father Stroke Father Cancer Father Family Status - Relation Status Age at Mother FatherNormalUniversity of Val Verde Regional Medical CenterErythrocyte distribution width Auto (RBC) [Ratio]on 02-70-3908Gazidxcrunz distribution width (RBC) [Ratio]13.3 %11.0-15.0[facility] HospitalEstimated glomerular filtration rate (GFR) non- Americanon 09-34-3231ZVO/1.73 sq M.predicted among non-blacks MDRD (S/P/Bld) [Vol rate/Area]mL/min/{1.73_m2}>=60[facility] HospitalHematocrit Auto (Bld) [Volume fraction]on 47-38-0761Rljrwmxydm (Bld) [Volume fraction]45.4 %42.0-54.0[facility] HospitalHemoglobin [Mass/volume] in Bloodon 36-03-4445Xmdbbrtjjo (Bld) [Mass/Vol]15.4 g/dL14.0-18.0 [facility] HospitalLaboratory - Chemistry and Chemistry - challengeon 02-93-9882Cvwzngk [Mass/Vol]3.8 g/dL3.4-5.0[facility] HospitalCalcium [Mass/Vol]8.9 mg/dL8.5-10.1FMetroHealth Parma Medical CenterChloride [Moles/Vol]101 mmol/O33-222MdkavszijBrown Memorial HospitalCO2 [Moles/Vol]31.2 mmol/L21.0-32.0[facility] HospitalCreatinine [Mass/Vol]1.06 mg/dL0.70-1.30[facility] HospitalGFR/1.73 sq M.predicted MDRD (S/P/Bld) [Vol rate/Area]mL/min/{1.73_m2}>=60[facility] HospitalGlucose [Mass/Vol]91 mg/gG26-301MiijlsakkBrown Memorial Hospital Magnesium [Mass/Vol]1.9 mg/dL1.8-2.4FMetroHealth Parma Medical CenterPotassium [Moles/Vol]3.9 mmol/L3.5-5.1FThe Bellevue Hospitalodium [Moles/Vol] 138 mmol/A257-450MimgtxzqjBrown Memorial HospitalUrate [Mass/Vol]4.7 mg/dL 3.5-7.2FMetroHealth Parma Medical CenterUrea nitrogen [Mass/Vol]18.0 mg/dL 7.0-18.0[facility] HospitalUrea nitrogen/Creatinine [Mass ratio] 17.0 mg/mgBrown Memorial HospitalBilirubin Ql (U)NegativeNEGATIVE [facility] HospitalGlucose (U) [Mass/Vol]NegativeNEGATIVEBrown Memorial HospitalKetones Ql (U)NegativeNEGATIVEBrown Memorial HospitalpH (U)5.5 [pH]5.0-9.0[facility] Hospitalpecific gravity (U) [Rel density]1.0201.005-1.025Brown Memorial HospitalUrobilinogen Qn (U)0.2 {Brenda'U}/dL0.2-1.0[facility] HospitalLaboratory - Specimen informationon 35-13-9469Radbaajiql (U)CLEARCLEARFMetroHealth Parma Medical CenterColor (U)YELLOWYELLOWBrown Memorial HospitalLaboratory - Urinalysison 74-95-5485Npknkzhhr esterase Test strip Ql (U)NegativeNEGATIVE [facility] HospitalMucus Ql (Urine sed)NONE SEENNONE SEENBrown Memorial HospitalNitrite Ql (U)NegativeNEGATIVEBrown Memorial HospitalProtein (U) [Mass/Vol]6.9 mg/dL<=11.9[facility] Protein Ql (U)NegativeNEG/TRACEBrown Memorial HospitalLeukocytes [#/volume] corrected for nucleated erythrocytes in Blood by Automated counon 95-62-2190AYC corrected for nucl RBC Auto (Bld) [#/Vol]3.2 10 3/uLLow4.0-11.0 [facility] HospitalMCH Auto (RBC) [Entitic mass]on 86-80-9291BBH (RBC) [Entitic mass]29.7 pg25.9-34.0[facility] Memorial HospitalMCHC Auto (RBC) [Mass/Vol]on 97-05-6591JZUU (RBC) [Mass/Vol]33.9 g/dL29.9-35.2FMetroHealth Parma Medical CenterMCV Auto (RBC) [Entitic vol]on 82-43-0351NQL (RBC) [Entitic vol]87.5 fL80.0-94.0[facility] HospitalNo Panel Informationon 907609-Iajuvzl Vitamin D Total74.8 ng/mLBrown Memorial HospitalComment on above:<20 ng/mL Vit D tlzgqfkup79-<30 ng/mL Vit D wxkzofvxmacx04-017 ng/mL Vit D sufficient>100 ng/mL Potential Toxicity Parathyroid Hormone (Intact)34 pg/mC45-36LmexaueieBrown Memorial Hospital Comment on above:Performed at: [employer] [facility] [address] [id number] Director: Aleks Ferreira PhD, Phone: [phone] Level 2.9 mg/dL2.6-4.7FMetroHealth Parma Medical CenterUrine BacteriaNONE SEEN #/HPF NONE [facility] HospitalUrine Occult BloodNegativeNEGATIVE [facility] HospitalUrine Random Fqsdbidtis751.55 mg/dL20.00-300.00 [facility] HospitalUrine RBCNONE SEEN #/HPF0-2FMetroHealth Parma Medical CenterUrine Squamous Epithelial CellsRARE #/LPFNONE/RAREBrown Memorial HospitalUrine WBCNONE SEEN #/HPFNONE [facility] HospitalPlatelet mean volume Auto (Bld) [Entitic vol]on 70-84-2521Urwdrhgs mean volume (Bld) [Entitic vol]9.5 fL9.5-13.5FMetroHealth Parma Medical Center Platelets Auto (Bld) [#/Vol]on 72-26-4695Uubarydqj (Bld) [#/Vol]126 10 3/uLLow 150-450Brown Memorial HospitalRBC Auto (Bld) [#/Vol]on 02-45-6288SMR (Bld) [#/Vol]5.19 10 6/uL4.70-6.10[facility] Valley Hospitalerum or plasma anion gap determinationon 66-06-5593Gzwax gap [Moles/Vol]9.7 mmol/L [facility] HospitalUrine protein/creatinine ratioon 06-03-2024 Protein/Creatinine (U) [Ratio]0.06[facility] Memorial HospitalReminderson 84-09-6784TafizklecLfdnlrdex From: Melissa Nash LPN To: Christina - Clinical; Sent: 05/30/2024 15:23:45 EDT Show up: 04/28/2034 07:00:00 EDT Subject: colonoscopy recall Due Date/Time: 05/29/2034 07:00:00 EDT Reminder/Recall Patient due for screening colonoscopy 05/29/2034.[facility] CenterAmbulatory Visit Summaryon 40-63-0366Vwdeijdlor Visit SummaryAmbulatory Visit Summary VIANEY LACEY :1960 [...] PRIETO, Vianey Crawford Where: [facility] [address] [address]- Medications What How Much When Instructions Unchanged [...] you for choosing us for your care. [facility]$ Large Joint Injection: R knee on 64-96-5624Wgwbvbxqyusandres Anthony MD 11/02/2023 11:03 AM $ Large [...] prepped with betadine and alcohol.). MANUALLY TRANSCRIBED RESULTSToledo Hospital SystemPhysician Referralon 08-13-3931Tcubqfcjg [id number]#1.00TIFF [facility] CenterTelephone Encounteron 98-16-6350Cqywbrvzeiuku Authentication Interface Message TextPatient has not been seen by this specialist in more than 1 year. Please contact patient to schedule office visit. Thank KarlosProMedica Defiance Regional Hospital SystemCNOVon 20-42-8009JRIFQekfna Visit (SPMESH) CORINNEVIANEY AGUILERA ([id number]) 1960 M Date Time Provider Department 04/26/23 11:00 AM [facility]AWANDA [facility]Z [facility] During your visit today, we recorded [...] PALPATION: no palpable masses (more content not included)...NormalPike Community HospitalTESTOSTERONE, TOTALon 92-74-6336Dmexwxulfcgv [Mass/Vol]347 ng/dL Ftqyjx785-786Nqh [facility] - TrumbullComment on above:Result Comment: Adult male reference interval is based on a population of healthy nonobese males (BMI <30) between 19 and 39 years old. Brad et.al. JCEM 2017,102;8589-5533. PMID: [id number].Performed By: #### TESTTOT #### [facility] [address] [place] [address] Dr. Reuben MorrisonXR TSPINE 3 VIEWSon 33-35-5104KS TSPINE 3 VIEWSEXAMINATION: XR LSPINE MIN 4 [...] Electronically authenticated by: ALFREDITO LOAIZA Date: 2022-11-18 16:[address] [place], [place] [address]TESTOSTERONE, TOTALon 08-08-1996Vlbpjkccqhbr [Mass/Vol]993 ng/dLCritically mfmz995-499EogOhiohealth Marion General HospitalComment on above:Result Comment: Adult male reference interval is based on a population of healthy nonobese males (BMI <30) between 19 and 39 years old. Brad et.al. JCEM 2017,102;8527-5911. PMID: [id number].Performed By: #### TESTTOT #### [facility] [address] [place] [address] Dr. Reuben Prajapati AUTO DIFFon 41-88-0442FVRI #0.0 103/ulNormal0.0-0.1Ohio[facility] Marion General HospitalComment on above:Performed By: #### CBC #### [facility] [address] [place] [address] Dr. Reuben MorrisonBasophils/100 WBC (Bld)0.4 %Normal0.2-2.0[facility] Comment on above:Performed By: #### CBC #### [facility] [address] [place] [address] Dr. Reuben Turner #0.1 103/ulNormal0.0-0.7The [facility] - TrumbullComment on above: Performed By: #### CBC #### [facility] [address] [address] [address] Reuben Allenosinophils/100 WBC (Bld)1.3 %Normal0.9-7.0[facility] Comment on above:Performed By: #### CBC #### [facility] [address] [place] [address] Dr. Reuben Allenrythrocyte distribution width (RBC) [Ratio]14.3 %Vyumqe70.0-15.0 The [facility] - TrumbullComment on above:Performed By: #### CBC #### [facility] [address] [place] [address] Dr. Reuben MorrisonHematocrit (Bld) [Volume fraction]48.9 %Gzkovs50.0-54.0The [facility] - TrumbullComment on above:Performed By: #### CBC #### [facility] [address] [place] [address] Dr. Reuben MorrisonHemoglobin (Bld) [Mass/Vol]16.6 g/qKSyqgzr49.0-18.0The [facility] TrumbullComment on above:Performed By: #### CBC #### [facility] [address] [place] [address] Dr. Reuben Retana #0.01 10e3/ulNormal0.00-0.03The [facility] - TrumbullComment on above:Performed By: #### CBC #### [facility] [address] [place] [address] Dr. Reuben MorrisonIG %0.2 %Normal0.0-0.5The [facility] - TrumbullComment on above: Performed By: #### CBC #### [facility] [address] [place] [address] Dr. Reuben Jean BaptisteMPH #1.1 103/ulCritically low1.2-3.8The [facility] Comment on above:Performed By: #### CBC #### [facility] [address] [place] [address] Dr. Reuben Jean Baptistemphocytes/100 WBC (Bld)24.3 %Kjpfuh48.5-60.0The [facility] - TrumbullComment on above:Performed By: #### CBC #### [facility] [address] [place] [address] Dr. Reuben Santizo DIFF REQNONormalThe [facility] - TrumbullComment on above: Performed By: #### CBC #### [facility] [address] [place] [address] Dr. Reuben Motta (RBC) [Entitic mass]29.5 prCknniw38.9-34.0The [facility] TrumbullComment on above:Performed By: #### CBC #### [facility] [address] [place] [address] Dr. Reuben Motta (RBC) [Mass/Vol]33.9 g/mKWskqgv53.9-35.2The [facility] TrumbullComment on above:Performed By: #### CBC #### [facility] [address] [place] [address] Dr. Reuben Motta (RBC) [Entitic vol]86.9 gNPigvfv40.0-94.0The [facility] TrumbullComment on above:Performed By: #### CBC #### [facility] [address] [place] [address] Dr. Reuben Astudillo #0.5 103/ulNormal0.3-0.8The [facility] TrumbullComment on above:Performed By: #### CBC #### [facility] [address] [place] [address] Dr. Reuben Blevinsocytes/100 WBC (Bld)9.6 %Normal1.7-12.0The [facility] Comment on above:Performed By: #### CBC #### [facility] [address] [place] [address] Dr. Reuben Meredith #3.0 103/ulNormal1.4-6.5The [facility] Board[facility] Hospitalment on above:Performed By: #### CBC #### [facility] [address] [place] [address] Dr. Reuben Websterutrophils/100 WBC (Bld)64.2 %Gsdjoc01.0-75.0The [facility] TrumbullComment on above:Performed By: #### CBC #### [facility] [address] [address] [address] Reuben MorrisonPlatelet mean volume (Bld) [Entitic vol]9.7 fLNormal9.5-13.5The [facility] on above:Performed By: #### CBC #### [facility] [address] [place] [address] Dr. Reuben MorrisonPLT130 103/ulCritically egw468-706Dku [facility] - TrumbullComcorewell health reed city hospital on above:Result Comment: plts. appear slightly decreasedPerformed By: #### CBC #### [facility] [address] [place] [address] Dr. Reuben MrorisonRBC5.63 106/ulNormal4.70-6.10The [facility] on above:Performed By: #### CBC #### [facility] [address] [place] [address] Dr. Reuben MorrisonWBC4.7 103/ulNormal4.0-11.0The [facility] TrumbullComcorewell health reed city hospital on above: Performed By: #### CBC #### [facility] [address] [place] [address] Dr. Reuben MorrisonTESTOSTERONE, TOTALon 16-94-7044Uizwuzfhdnqs [Mass/Vol]404 ng/dL Chpyfd100-858Elq [facility] on above:Result Comment: Adult male reference interval is based on a population of healthy nonobese males (BMI <30) between 19 and 39 years old. Brad et.al. JCEM 2017,102;3842-3420. PMID: [id number].Performed By: #### TESTTOT #### [facility] [address] [place] [address] Dr. Reuben KramerC AUTO DIFFon 79-54-0759XEVE #0.0 103/ulNormal0.0-0.1The [facility] on above:Performed By: #### TESTTOT #### [facility] [address] [place] [address] Dr. Reuben MorrisonBasophils/100 WBC (Bld)1.0 %Normal0.2-2.0The [facility] Comment on above:Performed By: #### TESTTOT #### [facility] [address] [place] [address] Dr. Reuben Turner #0.1 103/ulNormal0.0-0.7The [facility] TrumbullComment on above: Performed By: #### TESTTOT #### [facility] [address] [place] [address] Dr. Reuben Allenosinophils/100 WBC (Bld)1.8 %Normal0.9-7.0The [facility] Comment on above:Performed By: #### TESTTOT #### [facility] [address] [place] [address] Dr. Reuben Allenrythrocyte distribution width (RBC) [Ratio]14.0 %Kkqwpd11.0-15.0 The [facility] - TrumbullComment on above:Performed By: #### TESTTOT #### [facility] [address] [place] [address] Dr. Reuben MorrisonHematocrit (Bld) [Volume fraction]47.3 %Joyqkq84.0-54.0The [facility] - TrumbullComment on above:Performed By: #### TESTTOT #### [facility] [address] [place] [address] Dr. Reuben MorrisonHemoglobin (Bld) [Mass/Vol]16.2 g/gKSbrskl83.0-18.0The [facility] TrumbullComment on above:Performed By: #### TESTTOT #### [facility] [address] [place] [address] Dr. Reuben Retana #0.01 10e3/ulNormal0.00-0.03The [facility] TrumbullComment on above:Performed By: #### TESTTOT #### [facility] [address] [place] [address] Dr. Reuben Retana %0.3 %Normal0.0-0.5The [facility] TrumbullComment on above: Performed By: #### TESTTOT #### [facility] [address] [place] [address] Dr. Reuben Amaya #1.1 103/ulCritically low1.2-3.8The [facility] Comment on above:Performed By: #### TESTTOT #### [facility] [address] [place] [address] Dr. Reuben Jean Baptistemphocytes/100 WBC (Bld)26.6 %Lhrfxw82.5-60.0The [facility] TrumbullComment on above:Performed By: #### TESTTOT #### [facility] [address] [place] [address] Dr. Reuben Santizo DIFF REQNONormalThe [facility] TrumbullComment on above: Performed By: #### TESTTOT #### [facility] [address] [place] [address] Dr. Reuben Motta (RBC) [Entitic mass]29.5 bzUhhyfc81.9-34.0The [facility] HospitalComment on above:Performed By: #### TESTTOT #### [facility] [address] [place] [address] Dr. Reuben Motta (RBC) [Mass/Vol]34.2 g/tYZvxivf13.9-35.2The [facility] TrumbullComment on above:Performed By: #### TESTTOT #### [facility] [address] [place] [address] Dr. Reuben Motta (RBC) [Entitic vol]86.2 rGIjpiuv66.0-94.0The [facility] TrumbullComment on above:Performed By: #### TESTTOT #### [facility] [address] [place] [address] Dr. Reuben Astudillo #0.4 103/ulNormal0.3-0.8The [facility] TrumbullComment on above:Performed By: #### TESTTOT #### [facility] [address] [place] [address] Dr. Reuben Blevinsocytes/100 WBC (Bld)9.0 %Normal1.7-12.0The [facility] Comment on above:Performed By: #### TESTTOT #### [facility] [address] [place] [address] Dr. Reuben Meredith #2.5 103/ulNormal1.4-6.5The [facility] TrumbullComment on above:Performed By: #### TESTTOT #### [facility] [address] [place] [address] Dr. Reuben Websterutrophils/100 WBC (Bld)61.3 %Dqblwz10.0-75.0The [facility] TrumbullComment on above:Performed By: #### TESTTOT #### [facility] [address] [place] [address] Dr. Reuben Mcmillan mean volume (Bld) [Entitic vol]9.6 fLNormal9.5-13.5The [facility] TrumbullComment on above:Performed By: #### TESTTOT #### [facility] [address] [place] [address] Dr. Reuben MorrisonPLT128 103/ulCritically xil785-001Xya [facility] TrumbullComment on above:Performed By: #### TESTTOT #### [facility] [address] [place] [address] Dr. Reuben MorrisonRBC5.49 106/ulNormal4.70-6.10The [facility] TrumbullComment on above:Performed By: #### TESTTOT #### [facility] [address] [place] [address] Dr. Reuben MorrisonWBC4.0 103/ulNormal4.0-11.0The [facility] TrumbullComment on above: Performed By: #### TESTTOT #### [facility] [address] [place] [address] Dr. Reuben MorrisonINSULINon 76-91-0099Mpczzmt1.3 uIU/mLNormal2.6-24.9The [facility] TrumbullComment on above:Performed By: #### TESTTOT #### [facility] [address] [place] [address] Dr. Reuben MorrisonTESTOSTERONE, TOTALon 43-81-5303Wvuwljubotho [Mass/Vol]ng/dL Critically nyzi130-405Ywc [facility] TrumbullComment on above:Result Comment: Adult male reference interval is based on a population of healthy nonobese males (BMI <30) between 19 and 39 years old. stephania Salinas.al. JCEM 2017,102;8747-8774. PMID: [id number].Performed By: #### TESTTOT #### [facility] [address] [place] [address] Dr. Reuben KramerC AUTO DIFFon 07-23-3273KOSK #0.1 103/ulNormal0.0-0.1The [facility] Tr[facility]ullComment on above:Performed By: #### CBC #### [facility] [address] [place] [address] Dr. Reuben MorrisonBasophils/100 WBC (Bld)1.4 %Normal0.2-2.0[facility] Comment on above:Performed By: #### CBC #### [facility] [address] [place] [address] Dr. Reuben Turner #0.1 103/ulNormal0.0-0.7The [facility]ullComment on above: Performed By: #### CBC #### [facility] [address] [place] [address] Dr. Reuben Allenosinophils/100 WBC (Bld)1.4 %Normal0.9-7.0The [facility] Comment on above:Performed By: #### CBC #### [facility] [address] [place] [address] Dr. Reuben Allenrythrocyte distribution width (RBC) [Ratio]14.7 %Qlqmcx44.0-15.0 The [facility]ullComment on above:Performed By: #### CBC #### [facility] [address] [place] [address] Dr. Reuben MorrisonHematocrit (Bld) [Volume fraction]49.8 %Zytdtl06.0-54.0The [facility] Tr[facility]ullComment on above:Performed By: #### CBC #### [facility] [address] [address] [address] Reuben MorrisonHemoglobin (Bld) [Mass/Vol]16.4 g/sIXqylvz13.0-18.0The [facility]ullComment on above:Performed By: #### CBC #### [facility] [address] [place] [address] Dr. Reuben Retana #0.01 10e3/ulNormal0.00-0.03The [facility] Tr[facility]ullComment on above:Performed By: #### CBC #### [facility] [address] [place] [address] Dr. Reuben Retana %0.3 %Normal0.0-0.5The [facility] TrumbullComment on above: Performed By: #### CBC #### [facility] [address] [place] [address] Dr. Reuben Amaya #0.9 103/ulCritically low1.2-3.8The [facility] Comment on above:Performed By: #### CBC #### [facility] [address] [place] [address] Dr. Reuben Dillardhocytes/100 WBC (Bld)24.7 %Hpyncy65.5-60.0The [facility] Tr[facility]ullComment on above:Performed By: #### CBC #### [facility] [address] [place] [address] Dr. Reuben PlazaUAL DIFF REQNONormalThe [facility] TrumbullComment on above: Performed By: #### CBC #### [facility] [address] [place] [address] Dr. Reuben Motta (RBC) [Entitic mass]28.9 jhBlilkz88.9-34.0The [facility] TrumbullComment on above:Performed By: #### CBC #### [facility] [address] [place] [address] Dr. Reuben Motta (RBC) [Mass/Vol]32.9 g/lQJcaskg24.9-35.2The [facility] TrumbullComment on above:Performed By: #### CBC #### [facility] [address] [address] [address] Reuben MottaV (RBC) [Entitic vol]87.7 tTRtdgub65.0-94.0The [facility] TrumbullComment on above:Performed By: #### CBC #### [facility] [address] [place] [address] Dr. Reuben Astudillo #0.4 103/ulNormal0.3-0.8The [facility] TrumbullComment on above:Performed By: #### CBC #### [facility] [address] [place] [address] Dr. Reuben Blevinsocytes/100 WBC (Bld)9.5 %Normal1.7-12.0The [facility] Comment on above:Performed By: #### CBC #### [facility] [address] [place] [address] Dr. Reuben Meredith #2.3 103/ulNormal1.4-6.5The [facility] TrumbullComment on above:Performed By: #### CBC #### [facility] [address] [place] [address] Dr. Reuben Websterutrophils/100 WBC (Bld)62.7 %Ajwhsd86.0-75.0The [facility] TrumbullComment on above:Performed By: #### CBC #### [facility] [address] [place] [address] Dr. Reuben Sorianolet mean volume (Bld) [Entitic vol]9.8 fLNormal9.5-13.5The [facility] TrumbullComment on above:Performed By: #### CBC #### [facility] [address] [place] [address] Dr. Reuben MorrisonPLT149 103/ulCritically vvo047-710Pqz [facility] TrumbullComment on above:Performed By: #### CBC #### [facility] [address] [place] [address] Dr. Reuben MorrisonRBC5.68 106/ulNormal4.70-6.10The [facility] Tr[facility]ullComment on above:Performed By: #### CBC #### [facility] [address] [address] [address] Reuben MorrisonWBC3.7 103/ulCritically low4.0-11.0The [facility] Tr[facility]ullComment on above:Performed By: #### CBC #### [facility] [address] [address] [address] Reuben MorrisonFRSOFIE THYROXINE INDEX T7on 25-49-8630ZHT4.30Jgbhzm9.30-4.50The [facility] TrumbullComment on above:Performed By: #### CMP, T7, TSH, LIPID #### [facility] [address] [place] [address] Dr. Reuben MorrisonT3U39.0 %Mxbprb41.0-40.0The [facility] TrumbullComment on above: Performed By: #### CMP, T7, TSH, LIPID #### [facility] [address] [place] [address] Dr. Reuben MorrisonT4 [Mass/Vol]6.40 ug/dLNormal4.50-12.10The [facility] Comment on above:Performed By: #### CMP, T7, TSH, LIPID #### [facility] [address] [place] [address] Dr. Reuben MorrisonGLYCOHEMOGLOBIN A1Con [id number] RECOMMENDATIONSEE BELOWNormal The [facility] TrumbullComment on above:Result Comment: ADA RECOMMENDED LIMIT 4.0 - 6.0 ADA THERAPEUTIC TARGET < 7.0 ACTION SUGGESTED > 7.0Performed By: #### TESTTOT #### [facility] [address] [place] [address] Dr. Reuben MorrisonGlucose [Mass/Vol]105 mg/dLNormalThe [facility] TrumbullComment on above:Performed By: #### TESTTOT #### [facility] [address] [place] [address] Dr. Reuben MorrisonHbA1c (Bld) [Mass fraction]5.3 %Normal4.5-6.2The [facility] TrumbullComment on above:Performed By: #### TESTTOT #### [facility] [address] [address] [address] Reuben Boateng [phone] [Mass/Vol]100.0 ug/eCVrveso02.0-175.0The [facility] TrumbullComment on above:Performed By: #### IRON, PSASC, VITB12, VITAD #### [facility] [address] [address] [address] Reuben Valdez PROFILEon 78-29-2507SLTM-HDL RATIO NORMSEE BELOWGlenbeigh HospitalComment on above:Result Comment: 3.3 - 4.4 LOW RISK 4.4 - 7.1 AVERAGE RISK 7.1 - 11.0 MODERATE RISK >11.0 HIGH RISKPerformed By: #### CMP, T7, TSH, LIPID #### [facility] [address] [place] [address] Dr. Reuben Sandovalesterol [Mass/Vol]157 mg/dLNormal<=200The [facility] Comment on above:Performed By: #### CMP, T7, TSH, LIPID #### [facility] [address] [address] [address] Reuben Sandovalesterol in HDL [Mass/Vol]48 mg/yDBmduhi74-49Guc [facility]ullComcorewell health [facility] on above:Performed By: #### CMP, T7, TSH, LIPID #### [facility] [address] [place] [address] Dr. Reuben Sandovalesterol in LDL [Mass/Vol]96.0 mg/dLNoElyria Memorial HospitalComment on above:Performed By: #### CMP, T7, TSH, LIPID #### [facility] [address] [place] [address] Dr. Reuben Brito.total/Cholesterol in HDL [Mass ratio]3.3 {ratio} NormalThe [facility] TrumbullComment on above:Performed By: #### CMP, T7, TSH, LIPID #### [facility] [address] [place] [address] Dr. Reuben Robertson NORMAL> or = 60 mg/dl - LOW CARDIOVASCULAR RISK <40 mg/dl - HIGH CARDIOVASCULAR RISKNoElyria Memorial HospitalComment on above:Performed By: #### CMP, T7, TSH, LIPID #### [facility] [address] [place] [address] Dr. Reuben Novoa CALC NORMALSEE BELOWGlenbeigh HospitalComment on above:Result Comment: <100 mg/dl OPTIMAL 100 - 129 mg/dl NEAR OR ABOVE OPTIMAL 130 - 159 mg/dl BORDERLINE HIGH 160 - 189 mg/dl HIGH >190 mg/dl VERY HIGH Performed By: #### CMP, T7, TSH, LIPID #### [facility] [address] [place] [address] Dr. Reuben MorrisonTriglyceride [Mass/Vol]65 mg/dLNormal<=150The [facility] Comment on above:Performed By: #### CMP, T7, TSH, LIPID #### [facility] [address] [place] [address] Dr. Reuben MorrisonVLDL CALC13.0 mg/dLNoElyria Memorial HospitalComment on above: Performed By: #### CMP, T7, TSH, LIPID #### [facility] [address] [place] [address] Dr. Reuben MorrisonPRODante 14(COMP METB)on 42-73-0927Nbxdayc [Mass/Vol]3.7 g/dLNormal 3.4-5.0The [facility] TrumbullComment on above:Performed By: #### CMP, T7, TSH, LIPID #### [facility] [address] [place] [address] Dr. Reuben MorrisonAlbumin/Globulin [Mass ratio]1.3 {ratio}NormalThe [facility] TrumbullComcorewell health re[facility] hospital on above:Performed By: #### CMP, T7, TSH, LIPID #### [facility] [address] [place] [address] Dr. Reuben Keith [Catalytic activity/Vol]53 U/ASojpeq88-460Vqc [facility] TrumbullComcorewell health re[facility] city hospital on above:Performed By: #### CMP, T7, TSH, LIPID #### [facility] [address] [place] [address] Dr. Yilan ChangALT [Catalytic activity/Vol]37 U/QTyemke66-64Hkn [facility] TrumbullComment on above:Performed By: #### CMP, T7, TSH, LIPID #### [facility] [address] [address] [address] Reuben MorrisonAnion gap [Moles/Vol]11.0 mmol/LNormalOhiohealth [facility] Hospital Comment on above:Performed By: #### CMP, T7, TSH, LIPID #### [facility] [address] [address] [address] Reuben MorrisonAST [Catalytic activity/Vol]28 U/AAnfoiy06-31Sho [facility]ullComment on above:Performed By: #### CMP, T7, TSH, LIPID #### [facility] [address] [place] [address] Dr. Reuben MorrisonBilirubin [Mass/Vol]0.9 mg/dLNormal0.2-1.0[facility] Comment on above:Performed By: #### CMP, T7, TSH, LIPID #### [facility] [address] [place] [address] Dr. Reuben MorrisonCalcium [Mass/Vol]8.9 mg/dLNormal8.5-10.1[facility] Comment on above:Performed By: #### CMP, T7, TSH, LIPID #### [facility] [address] [place] [address] Dr. Reuben MorrisonChloride [Moles/Vol]106 mmol/QBbyska66-110UqpOhiohealth Marion General Hospital Comment on above:Performed By: #### CMP, T7, TSH, LIPID #### [facility] [address] [place] [address] Dr. Reuebn MorrisonCO2 [Moles/Vol]28.2 mmol/DQrjgqr98.0-32.0[facility] Comment on above:Performed By: #### CMP, T7, TSH, LIPID #### [facility] [address] [place] [address] Dr. Reuben MorrisonCreatinine [Mass/Vol]1.55 mg/dLCritically high0.70-1.30The [facility] TrumbullComment on above:Performed By: #### CMP, T7, TSH, LIPID #### [facility] [address] [place] [address] Dr. Reuben AllenGFR-AF DTOLSHNP68 mL/min/1.35r3Wvqtngylvq low>=60The [facility] TrumbullComment on above:Performed By: #### CMP, T7, TSH, LIPID #### [facility] [address] [place] [address] Dr. Reuben AllenGFR-NON AF XJWYZUNQ70 mL/min/1.69k0Hbifjichsp low>=60[facility] HospitalComment on above:Performed By: #### CMP, T7, TSH, LIPID #### [facility] [address] [place] [address] Dr. Reuben MorrisonGlobulin (S) [Mass/Vol]2.9 g/dLNormalThSelect Medical Specialty Hospital - AkronComment on above:Performed By: #### CMP, T7, TSH, LIPID #### [facility] [address] [place] [address] Dr. Reuben MorrisonGlucose [Mass/Vol]88 mg/qMRekudo81-547ActOhiohealth Marion General Hospital Comment on above:Performed By: #### CMP, T7, TSH, LIPID #### [facility] [address] [place] [address] Dr. Reuben MorrisonPotassium [Moles/Vol]4.2 mmol/LNormal3.5-5.1[facility] Comment on above:Performed By: #### CMP, T7, TSH, LIPID #### [facility] [address] [place] [address] Dr. Reuben MorrisonProtein [Mass/Vol]6.6 g/dLNormal6.4-8.2[facility] Comment on above:Performed By: #### CMP, T7, TSH, LIPID #### [facility] [address] [place] [address] Dr. Reuben MorrisonSodium [Moles/Vol]141 mmol/ODrucao368-618SbzOhiohealth Marion General Hospital Comment on above:Performed By: #### CMP, T7, TSH, LIPID #### [facility] [address] [place] [address] Dr. Reuben Funes nitrogen [Mass/Vol]13.0 mg/dLNormal7.0-18.0The [facility] TrumbullComment on above:Performed By: #### CMP, T7, TSH, LIPID #### [facility] [address] [place] [address] Dr. Reuben MorrisonUrea nitrogen/Creatinine [Mass ratio]8.4 mg/mgNoElyria Memorial HospitalComment on above:Performed By: #### CMP, T7, TSH, LIPID #### [facility] [address] [place] [address] Dr. Reuben MorrisonTSHochristina 10-02-2485TYT6.091 uIU/mLCritically low0.358-3.740The [facility] TrumbullComcorewell health [facility] hospital on above:Performed By: #### CMP, T7, TSH, LIPID #### [facility] [address] [place] [address] Dr. Reuben Jernigan Flower HospitalComment on above: Result Comment: <0.34 UIU/ml HYPERTHYROID 0.34-5.60 UIU/ml EUTHYROID >5.60 UIU/ml HYPOTHYROIDPerformed By: #### CMP, T7, TSH, LIPID #### [facility] [address] [place] [address] Dr. Reuben MorrisonVITAMIN B12on 66-98-3924Fqucatviz (Vitamin B12) [Mass/Vol]3126.0 pg/mLCritically cotk790.0-986.0The [facility] TrumbullComment on above:Performed By: #### TESTTOT #### [facility] [address] [place] [address] Dr. Reuben MorrisonVITAMIN D 25 OHon 33-82-8495STI D 25-OH90.4 ng/mLNormalOhiohealth Marion General HospitalComcorewell health re[facility] city hospital on above:Performed By: #### TESTTOT #### [facility] [address] [place] [address] Dr. Reuben HAYNESTriHealth Bethesda Butler HospitalComment on above: Result Comment: <20 ng/mL Vit D deficient 20 - <30 ng/mL Vit D insufficient 30 - 100 ng/mL Vit D sufficient >100 ng/mL Potential ToxicityPerformed By: #### TESTTOT #### [facility] [address] [place] [address] Dr. Reuben MorrisonXR SHOULDER RICHARD 2V or >on 37-11-4512QL SHOULDER RICHARD 2V or >EXAM: XR SHOULDER [...] Electronically authenticated by: ERIN HANSEN Date: 2022-03-07 16:26[facility] Vital Signs Date TimeVital SignValuePerforming IjpmrghhdTcrwyheo95-28-2567 13:30-0500 Diastolic blood kasiwxnu95 mm[Hg]Ilda Peck MD Work Phone: [phone]11-10-2025 13:30-0500 Heart rate81 /Griselda Peck MD Work Phone: [phone]11-10-2025 13:30-0500 Respiratory rate16 /Griselda Peck MD Work Phone: [phone]11-10-2025 13:30-0500 SaO2% (BldA) [Mass fraction]99 %Ilda Peck MD Work Phone: [phone]11-10-2025 13:30-0500 Systolic blood quptamms573 mm[Hg]Ilda Peck MD Work Phone: [phone]11-10-2025 10:24-0500 Body itqjyrcsmov63.5 [degF]Ilda Peck MD Work Phone: [phone]11-10-2025 10:24-0500 Inhaled oxygen flow rate10 L/minDjessika Peck MD Work Phone: [phone] [place], [place] 7548611-10-2025 06:30-0500 Body atkmxd117.91 cmIlda Peck MD Work Phone: [phone])[address] [place], [place] 7548611-10-2025 06:30-0500 Body .18 kgIlda Peck MD Work Phone: [phone] [place], [place] 7548610-29-2025 12:06-0400 Body .91 Anita Peck MD Work Phone: [phone])[address] [place], [place] 7548610-29-2025 12:06-0400 Body mass index (BMI) [Ratio]28.6 kg/z5QqdmzxfIlda Peck MD Work Phone: 1([phone])[address] [place], [place] 7548610-29-2025 12:06-0400 Body cghazd43.64 Oskar Peck MD Work Phone: 1(832)[address] [place], [place] 7548610-29-2025 12:06-0400 Diastolic blood zsmkjkuo08 mm[Hg]Ilda Peck MD Work Phone: [phone])[address] [place], [place] 7548610-29-2025 12:06-0400 Systolic blood hcmcgjmi235 mm[Hg]Ilda Peck MD Work Phone: [phone] [place], [place] 7548610-20-2025 16:35-0400 Body wnbeci637.91 Anita Peck MD Work Phone: [phone] [place], [place] 7548610-20-2025 16:35-0400 Body mass index (BMI) [Ratio]28.6 kg/m8FasjyhcIlda Peck MD Work Phone: [phone])[address] [place], [place] 7548610-20-2025 16:35-0400 Body wzcrxe40.64 Oskar Peck MD Work Phone: [phone] [place], [place] 7548610-20-2025 16:35-0400 Diastolic blood mxyfkbed76 mm[Hg]Ilda Peck MD Work Phone: [facility]10-20-2025 16:35-0400 Heart rate69 /minDouglstiven Peck MD Work Phone: [facility]10-20-2025 16:35-0400 SaO2% (BldA) [Mass fraction]96 %Ilda Peck MD Work Phone: [facility]10-20-2025 16:35-0400 Systolic blood ohhgncps858 mm[Hg]Ilda Peck MD Work Phone: [facility]09-17-2025 10:43-0400 Body jlrlfy361.9 cmAsierra Dawson MD Work Phone: [phone])[facility] [place], [place] [address]Kryuudkfrp48-48-0592 10:43-0400Body mass index (BMI) [Ratio]29.73 kg/q6EofppRomán Dawson MD Work Phone: 1(600)[facility] [place], [place] [address]Rnwbxpbesn91-56-5785 10:43-0400Body zimlep50.82 kgRomán Dawson MD Work Phone: [phone] [place], [place] [address]Axsfchguib23-67-7732 10:43-0400Diastolic blood dqozlpud10 mm[Hg]Román Dawson MD Work Phone: [phone] [place], [place] [address]Fdrdzotmop18-93-6401 10:43-0400Heart rate49 /min Román Dawson MD Work Phone: [phone] [place], [place] [address]Nacceqwfmm52-26-9447 10:43-0400Respiratory rate16 /minRomán Dawson MD Work Phone: [phone] [place], [place] [address]Cktzwqnpub02-45-9197 10:43-5839OcA9% (BldA) [Mass fraction]98 %Román Dawson MD Work Phone: [phone] [place], [place] [address]Yxvljhnisa48-69-3800 10:43-0400Systolic blood khhplofa887 mm[Hg]Román Dawson MD Work Phone: [phone]08-19-2025 11:21-0400Body gyxvdz459.91 cmDosalome Peck MD Work Phone: [facility]08-19-2025 11:21-0400 Body mass index (BMI) [Ratio]29 kg/t0LonxtieIlda Peck MD Work Phone: [facility]08-19-2025 11:21-0400 Body kgIlda Peck MD Work Phone: [facility]08-19-2025 11:21-0400 Diastolic blood oxrwcosn44 mm[Hg]Ilda Peck MD Work Phone: [facility]08-19-2025 11:21-0400 Systolic blood nwqhcpos639 mm[Hg]Ilda Peck MD Work Phone: [facility]05-27-2025 10:20-0400 Body amzshy215.2 Karlene Anthony MD Work Phone: [facility]05-27-2025 10:20-0400Body mass index (BMI) [Ratio]29.19 kg/d6ArptbhmhfzvOsmin Anthony MD Work Phone: [facility]05-27-2025 10:20-0400Body .54 kgOsmin Anthony MD Work Phone: [facility]01-27-2025 10:46-0500Body gxltaodrfwp66.52 [degF]Vianey SILVERMAN [facility]01-27-2025 10:46-0500Diastolic blood gwvdqdbi19 mm[Hg]Vianey SILVERMAN [facility]01-27-2025 10:46-0500Systolic blood gzprlpxu081 mm[Hg]Vianey SILVERMAN [facility]01-14-2025 14:40-0500Body ujqtpb154.2 Karlene Anthony MD Work Phone: [facility]01-14-2025 14:40-0500Body mass index (BMI) [Ratio]29.13 kg/v3QoemytcwhkgOsmin Anthony MD Work Phone: [facility]01-14-2025 14:40-0500Body anpzit80.37 kgChsaulo Anthony MD Work Phone: [facility]11-19-2024 13:46-0500Blood Pressure LocationMichael NILL [phone]-CpjiaUpper [facility] Medical Center11-19-2024 13:46-0500Diastolic blood poyvuqwa68 mm[Hg]Shawanda NILL [phone]-MgkhmUpper Valley Medical Center11-19-2024 13:46-0500Heart rate72 /minMichael NILL [phone]-NjbbuUpper Valley Medical Center11-19-2024 13:46-0500Respiratory rate16 /minMichael NILL [phone]-RognyUpper Valley Medical Center11-19-2024 13:46-0500Systolic blood kecutdsu250 mm[Hg]Shawanda NILL [phone]-UauwtUpper Valley Medical Center10-23-2024 14:59-0400Body gfoqen090.9 cmNicole Russel DO Work Phone: K94 DiscoveriesSaint Luke's East HospitalYsviwgjpdw22-77-3959 14:59-0400Body mass index (BMI) [Ratio]30.02 kg/x5Thfchq Russel DO Work Phone: noSaint Luke's East HospitalAmthwsuzmt83-10-3003 14:59-0400Body qwmbaw30.64 kgNicole Russel DO Work Phone: noSaint Luke's East HospitalNylvffcdki33-71-0674 14:59-0400Diastolic blood ztfmxrah31 mm[Hg]Sage Russel DO Work Phone: [facility] CenterFlebxyxwyf48-41-4584 14:59-0400Heart rate68 /min Sage Goode DO Work Phone: NOSaint Luke's East HospitalEnmcnvoslf80-12-5803 14:59-1208JdS2% (BldA) [Mass fraction]98 %Sage Goode DO Work Phone: [facility]OSaint [facility] HospitalEadsvmgtdp50-74-8311 14:59-0400Systolic blood mm[Hg]Sage Goode DO Work Phone: NOSaint [facility] HospitalWmjmiyveog50-18-2165 11:04-0400Body zikfkq773.9 Don Dawson MD Work Phone: [facility] CenterHmxeyasojq17-40-6968 11:04-0400Body mass index (BMI) [Ratio]29.89 kg/v9QoazaRomán Dawson MD Work Phone: [facility] CenterNkivysraiu05-25-8775 11:04-0400Body jrtarq72.28 kgRomán Dawson MD Work Phone: [facility] CenterAdknnyfzlh55-77-3053 11:04-0400Diastolic blood sczaaukq49 mm[Hg]Román Dawson MD Work Phone: [facility] CenterViltygdsxx17-77-6581 11:04-0400Heart rate68 /min Román Dawson MD Work Phone: [facility] CenterFmurzxukzl64-48-0679 11:04-0400Respiratory rate16 /minRomán Dawson MD Work Phone: [place] [address]Lkzsmzrncs91-44-1081 11:04-0400Systolic blood mm[Hg]Román Dawson MD Work Phone: [facility] CenterIkvkoxxxvr23-30-9437 11:20-0400Body gebckw047.2 Karlene Anthony MD Work Phone: [facility]09-17-2024 11:20-0400Body mass index (BMI) [Ratio]28.7 kg/t6RiiehtioicxOsmin Anthony MD Work Phone: [facility]09-17-2024 11:20-0400Body xviqgh01.12 kgChrisdennis Anthony MD Work Phone: [facility]09-12-2024 13:55-0400Body mzdabf194.91 cmMD Ilda Peck Work Phone: 1([phone] [place], [place] 4443609-12-2024 13:55-0400 Body mass index (BMI) [Ratio]29.4 kg/m2MD Ilda Peck Work Phone: 1(732)297-[address] [place], [place] 4443609-12-2024 13:55-0400 Body pcepjkogudc28.8 [degF]MD Ilda Peck Work Phone: [phone]09-12-2024 13:55-0400 Body vxdasd14.97 kgMD Ilda Peck Work Phone: [phone]09-12-2024 13:55-0400 Diastolic blood ypdpjweo45 mm[Hg]MD Ilda Peck Work Phone: 1(749)279-[address] [place], [place] 4443609-12-2024 13:55-0400 Heart rate61 /minMD Ilda Peck Work Phone: 1(828)539-[address] [place], [place] 4443609-12-2024 13:55-0400 Respiratory rate16 /minMD Ilda Peck Work Phone: [phone] [place], [place] 4443609-12-2024 13:55-0400 SaO2% (BldA) [Mass fraction]98 %MD Ilda Peck Work Phone: 1(195)745-[address] [place], [place] 4443609-12-2024 13:55-0400 Systolic blood xcmvqyhg718 mm[Hg]MD Ilda Peck Work Phone: 1(137)621-[address] [place], [place] 4443608-13-2024 15:01-0400 Blood Pressure LocationMichael NILL 004-5617Mwcnvv-HpdstUpper Valley Medical Center08-13-2024 15:01-0400Diastolic blood yekgnygd86 mm[Hg]Shawanda MEJIA 440-5253Laconz-KsqjhUpper Valley Medical Center08-13-2024 15:01-0400Heart rate68 /minMichael NILL [phone]-QgujdUpper Valley Medical Center08-13-2024 15:01-0400Respiratory rate16 /minMichael NILL 012-4030Hdymmo-BhcguUpper Valley Medical Center08-13-2024 15:01-0400Systolic blood hhowsurw775 mm[Hg]Shawanda NILL [phone]-EisejUpper Valley Medical Center02-08-2024 10:48-0500Body bpseif576.2 Karlene Anthony MD Work Phone: [facility]02-08-2024 10:48-0500Body mass index (BMI) [Ratio]29.29 kg/r3QlqgvasrmwaOsmin Anthony MD Work Phone: [facility]02-08-2024 10:48-0500Body naxruf66.82 kgChsaulo Anthony MD Work Phone: [facility]01-22-2024 13:03-0500Blood Pressure LocationPaaida SILVERMAN [facility]01-22-2024 13:03-0500Diastolic blood bgowyrag39 mm[Hg]Vianey SILVERMAN [facility]01-22-2024 13:03-0500Heart rate75 /minPatrick SILVERMAN [facility]01-22-2024 13:03-0500Respiratory rate16 /minPatrick SILVERMAN [facility]01-22-2024 13:03-0500Systolic blood dkqemuwg742 mm[Hg]Vianey SILVERMAN [facility]11-02-2023 10:00-0400Body .91 cmAbdul Antonia Other [facility] Other 11-02-2023 10:00-0400Body mass index (BMI) [Ratio] 28.55 kg/u7Iaxww Antonia Other [facility] Other 11-02-2023 10:00-0400Body iwqawiaxgqk38.2 [degF]Sandoval Antonia Other [facility] Other 11-02-2023 10:00-0400Body xvuhsi54.47 kgAbdul Antonia Other [facility] Other 11-02-2023 10:00-0400Diastolic blood vusbktiy61 mm[Hg] Sandoval Antonia Other [facility] Other 11-02-2023 10:00-0400Respiratory rate16 /minAbdul Antonia Other [facility] Other 11-02-2023 10:00-2261PeN0% (BldA) [Mass fraction]94 % Sandoval Antonia Other [facility] Other 11-02-2023 10:00-0400Systolic blood gnicsjdl102 mm[Hg] Sandoval Antonia Other [facility] Other 09-18-2023 12:25-0400Blood Pressure LocationP[facility]ILVERMAN [facility]09-18-2023 12:25-0400Diastolic blood vcosnrrn96 mm[Hg]Vianey SILVERAMN [facility]09-18-2023 12:25-0400Heart rate68 /minPatrick HERRERA [facility]09-18-2023 12:25-0400Respiratory rate16 /minPatrick HERRERA [facility]09-18-2023 12:25-0400Systolic blood kyycngme085 mm[Hg]Vianey HERRERA [facility]08-02-2023 11:15-0400Body .4 cmShawanda Hernandez PA-C Work Phone: [phone] HealthPvekpb96-69-4826 11:15-0400Body temperature 98.01 [degF]Shawanda Hernandez PA-C Work Phone: [phone])316-8ZMadison HealthWnwpdv30-19-9912 11:15-0400Body rniibt64.95 kgMicelier Hernandez PA-C Work Phone: [phone] HealthCdsteu56-53-2694 11:15-0400Diastolic blood bqnhryzg40 mm[Hg]Shawanda Hernandez PA-C Work Phone: 1([phone])810-4RMadison HealthKbdnlp61-80-8445 11:15-0400Heart rate74 /min Shawanda Hernandez PA-C Work Phone: cMadison HealthTibduc80-45-3041 11:15-5585FpQ8% (BldA) [Mass fraction]97 %Shawanda Hernandez PA-C Work Phone: cMadison HealthVoqkoo60-01-5356 11:15-0400Systolic blood vfnkyzqa621 mm[Hg]Shawanda Hernandez PA-C Work Phone: cgood samaritan hospitaland Zcsbsj49-73-0258 08:12-0500Blood Pressure LocationPaaida SILVERMAN [facility]03-10-2023 08:12-0500Diastolic blood cmrabmim12 mm[Hg]Vianey SILVERMAN [facility]03-10-2023 08:12-0500Heart rate70 /minVianey SILVERMAN [facility]03-10-2023 08:12-0500Respiratory rate16 /minVianey SILVERMAN [facility]03-10-2023 08:12-0500Systolic blood ofklnycx329 mm[Hg]Vianey SILVERMAN [facility]10-26-2022 14:11-0400Body mass index (BMI) [Ratio]28.98 kg/m2Jovita Virk MD Work Phone: [phone]jCwawyw96-05-5377 14:11-0400Body mipglxnfntv80.01 [degF]Jovita Virk MD Work Phone: [phone]wSzjjvx35-76-1151 14:11-0400Body xspxvi91.92 kg Jovita Virk MD Work Phone: [phone]qIjyvsz21-79-1564 14:11-0400Diastolic blood vfckakzd78 mm[Hg]Jovita Virk MD Work Phone: KtomdNwtrzu58-201944PygdbCwiqgu01-90-6056 14:11-0400Heart rate98 /Jaye Virk MD Work Phone: NdgobMbeolj20-407840UrkrzEnliim52-28-2833 14:11-0400Respiratory rate14 /Jaye Virk MD Work Phone: GcmebAmafex65-641386DeaszSwuevf98-64-2730 14:11-5273GtR1% (BldA) [Mass fraction]100 %Jovita Virk MD Work Phone: KcivfJhzswi57-662680RbcepMigrge84-15-9083 14:110400Systolic blood mm[Hg]Jovita Virk MD Work Phone: [facility] Encounters Encounter DateEncounter TypeCare ProviderFacilityStart: 32-58-6834ewxokwhnpq Vianey Crawford WATERSFacility:EU BellevueStart: 08-04-2025 End: 06-38-0696Ovaoekx encounter procedureArturo Grey DO-[facility] [address] Work Phone: start: 08-04-2025 End: 85-51-1643ocgwlkguxlAjoceij M Hoy MD Work Phone: [phone]-Kgfnqvyuy Health [address]Start: 08-04-2025 End: 33-44-7323jirhxxvlwqUmloki M Carlisle IIFacility:[facility] Hospitaltart: 44-66-9058Wmd-patient / Non-visitRobert Foster Pompa MD-[facility] Work Phone: Start: 07-25-2025 End: 28-76-5753yhzhbqscelTyeyjsy M Hoy MD Work Phone: [phone]-Qxftbsaxc Health OrthopedicsStart: 07-25-2025 End: 82-01-1434Hpgjcnl encounter procedureScot Pompa MD-[facility] Work Phone: Start: 07-23-2025 End: 28-49-3414Mxiemtw encounter procedureScot Pompa MD-[facility] Work Phone: Start: 83-67-6693Mqaovptrga RecurringScot Pompa MD-Physical Therapy [place] CreekStart: 07-23-2025 End: 74-34-8850lpwiazuobfAzsccst M Hoy MD Work Phone: [phone]-Tqxcsojzt Health OrthopedicsStart: 07-23-2025 Encounter for other preprocedural examinationScot Hutchison IIAdventhealth [facility]amon[facility] Springs Physician GroupStart: 07-23-2025 End: 40-30-4560Jlwckxr encounter procedureRobmartínez Pompa MD-Pre-Surgical Testing Work Phone: Start: 07-23-2025 End: 36-97-1259sebghxxayzIencopp M Hoy MD Work Phone: -Pre-Surgical TestingStart: 97-16-8887Dfplwbrjk for preprocedural laboratory examinationScot Hutchison [facility] Physician GroupStart: 07-14-2025 End: 59-81-8029dffumayryjDwuzurx M Hoy MD Work Phone: -[facility]rology [place]Start: 07-14-2025 End: 00-83-8780Ptbicae encounter procedureSage Goode DO-[facility] Neurology [place] Work Phone: Start: 06-11-2025 End: 03-70-6462Lrtvrj Shahrzad Dawson MD Work Phone: noms [place] EndocrinologyStart: 06-11-2025 End: 80-12-2337Zcqnckromi Dawson MD Work Phone: noms [facility] EndocrinologyStart: 06-11-2025 End: 83-19-3192Nlzzonzgi encounterChrisdennis Anthony MD Work Phone: [facility] Orthopedic SurgeryStart: 06-11-2025 End: 36-67-4938ekwfmahvnjZIXWY F SABBAGHNot AvailableStart: 06-11-2025 End: 45-48-9060Fnlxum outpatient visit 25 minutesRomán Dawson MD Work Phone: noms Ra EndocrinologyComment on above: Sarah's disease (Primary Dx)Start: 05-24-2025 End: 33-53-5689Arrneg encounterJovita Virk MD Work Phone: [facility]Start: 05-13-2025 End: 95-70-3000Dfgkses encounter procedureScot Pompa MD-[facility] [place] Work Phone: Start: 05-13-2025 End: 77-35-5726zsqfoiezhtJxeuezg M Hoy MD Work Phone: [facility] Work Phone: Start: 02-18-2025 End: 96-22-6582yphxqgzeupVSDIUNPSEPK A FOETISCHProMedica Select Medical Special[facility] Hospital - Youngstowntart: 02-18-2025 End: 11-72-9575Vlejwi outpatient visit 25 minutesChrisdennis Anthony MD Work Phone: [facility] Physicians Orthopedic SurgeryComment on above:Primary osteoarthritis of right knee (Primary Dx)Start: 01-21-2025 End: 32-05-2429juvmwmizvsQPWS [facility] Systemtart: 10-21-2024 End: 84-02-3121sajjfmodpsKufzuzq R WATERSFacility:EU ueStart: 10-21-2024 End: 39-86-0413Mxslxkx encounter procedurePaaida SILVERMAN [facility] start: 10-08-2024 End: 19-69-9643hqximdjonrVLHGUZNATZV A FOETISCHProMedica White Hospital HospitalStart: 10-08-2024 End: 35-00-9250Tiblijt encounter procedureChristopher Dawn Anthony MD Work Phone: [facility] Physicians Orthopedic SurgeryComment on above:Primary osteoarthritis of right knee (Primary Dx)Start: 08-13-2024 End: 76-31-7225igbyoujiwuJlcjdpq R NILLFacility:GS evueStart: 08-13-2024 End: 40-25-1124Pdvebgw encounter procedureMichael R NILL [phone]-WvugiUpper Valley Medical Center Start: 07-17-2024 End: 77-48-4333holxoozfxmNBYATW DANNERNot AvailableStart: 07-17-2024 End: 77-73-7137Gdcaqz outpatient visit 25 minutesNicole Russel DO Work Phone: [facility]oms [facility] ROUTEComment on above:NANCY (obstructive sleep apnea) (Primary Dx); Hypersomnia; Snoring; Atrial fibrillation, unspecified type (CMS/HCC); Sleep deprivationStart: 07-17-2024 End: 40-97-3177Jngktz flowsheetNicole Russel DO Work Phone: [facility]oms [facility] ROUTEStart: 07-17-2024 End: 89-37-6202Mtcuww flowsheetNicole Russel DO Work Phone: noms [place] ROUTEStart: 07-16-2024 End: 03-39-1774gzeybaitljIOCXSt. Charles Hospitaltart: 06-12-2024 End: 44-41-8261Nfhyni Shahrzad Dawson MD Work Phone: noms ENDOCRINOLOGYStart: 06-12-2024 End: 45-66-9483Jxoorj Shahrzad Dawson MD Work Phone: noms ENDOCRINOLOGYStart: 06-12-2024 End: 07-74-4497Rqyegu outpatient visit 25 minutesmeggan Dawson MD Work Phone: noms ENDOCRINOLOGYComment on above:Sarah's disease (CMS/HCC) (Primary Dx)Start: 06-11-2024 End: 74-13-5523dmnucsiwhcHSBDCETBYQD A KEYONNAETISCHProMedica Select Medical Specialty Hospital - Youngstowntart: 06-11-2024 End: 34-81-7378Zjydvno encounter procedureChristopher Dawn Anthony MD Work Phone: [facility] Orthopedic SurgeryComment on above:Primary osteoarthritis of right knee (Primary Dx)Start: 06-06-2024 End: 89-46-3809villyrceguNS Douglas M Hoy Work Phone: [facility] Work Phone: Start: 06-06-2024 End: 87-21-5806Slwrpsz encounter procedureMD Ilda Hoy Work Phone: [facility] Nephrology [place] Work Phone: Start: 96-04-2521Wdn-patient / Non-visitMD Ilda Peck Work Phone: [facility] Professional [facility] Work Phone: Start: 05-29-2024 End: 62-36-9033yczxjexygoWczopdi R NILLFacility:CD:[phone]: 05-07-2024 End: 56-82-7612axrwyzuqmsRornhnx R NILLFacility:GS ueStart: 05-07-2024 End: 16-62-8387Ermydhw encounter procedureMichael R NILL [phone]-AreyyUpper Valley Medical Center Start: 72-46-2779zsiwtivtofIztizwp NILLFacility:GS evueStart: 04-05-2024 End: 79-39-4662ylpxznworfBZ Ilda Pompa Holuz maria Work Phone: [facility] Work Phone: Start: 04-05-2024 End: 42-95-5503Mjeknwjy ReferredMD Ilda Peck Work Phone: [facility]-LAB Path Spec [place] HospStart: 82-45-2810Glbtef encounterMETROHEALTH SYSTEM Work Phone: Start: 69-41-1976bznvbrytveCucnezb R WATERSFacility:EU evueStart: 11-02-2023 End: 13-77-4082Eqqowze encounter procedureChsaulo Anthony MD Work Phone: [facility] Orthopedic SurgeryComment on above:Primary osteoarthritis of right knee (Primary Dx)Start: 10-16-2023 End: 85-93-0040Pogoypc encounter procedurePatrick R SILVERMAN [facility] start: 07-27-2023 End: 96-78-0233nllnhjhzklFvhxa Antonia Other [address] Other Start: 58-75-1753Ppuvnb outpatient new 45 minutesAbdul QadirFPG NephrologyStart: 06-12-2023 End: 98-05-5030Ybcefxc encounter procedureVianey SILVERMAN [facility] start: 05-03-2023 End: 08-52-5001Xfezlac encounter procedureTaylor Joshua [facility] start: 04-26-2023 End: 39-73-1422thaiflqqbyQPRJNDU M HOYFacility:[facility] Centertart: 04-26-2023 End: 71-50-9047Bxcvlpo encounter procedureShawanda Hernandez PA-C Work Phone: Spine MedicineComment on above:Height loss (Primary Dx)Start: 03-08-2023 End: 03-46-5959Pfvzsyn encounter procedureJENNLINDA RODRIGUEZ [facility] start: 01-20-2023 End: 83-94-8795hvpijpcodxWP ILDA HOY .Facility:D6Cmdfr: 12-02-2022 End: 58-40-5972Zbrxxga encounter procedureVianey SILVERMAN [facility] start: 11-18-2022 End: 84-98-9810nhavwzzipfOF ILDA HOY .Facility:T5Sjsen: 11-08-2022 End: 50-74-2224saboebmrakXSHBK M LUE .Facility:G0Qlvou: 11-01-2022 End: 94-81-9522Qsyeaaf encounter procedureJEBRANDON E JENNIFER [facility] start: 10-05-2022 End: 78-94-4463Qrdjujd encounter procedureJEBRANDON Marin JENNIFER [facility] start: 09-07-2022 End: 40-42-5844Tzuxytv encounter Jessica Joshua [facility] start: 52-04-9945Ltgbwq encounterJovita Virk MD Work Phone: [facility]Start: 08-17-2022 End: 47-04-3292Ytdromz encounter Jessica Joshua [facility] start: 65-66-6563Bekjqorlw encounterAarti Kelsey MA [facility] [employer] Work Phone: 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); Cognitive changes; Body mass index (BMI) 28.0-28.9, adultStart: 07-11-2022 End: 38-66-3057Tglzyrx encounter procedureVianey SILVERMAN [facility] start: 06-15-2022 End: 48-77-2623xmfutdtfbsOF SAEED FloresFacility:T8Kgopv: 06-13-2022 End: 68-56-0231Ngpiywa encounter procedureVianey Ty SILVERMAN [facility] start: 04-27-2022 End: 90-60-2532ssxyrnofapVS SAEED FloresFacility:R8Syxxn: 04-07-2022 RefillJovita Virk MD Work Phone: [facility] PM&RComment on above: RefillStart: 01-47-3745shmeluqdgcZY ILDA HOY .Facility:Z1Djcix: 03-17-2022 ambulatoryDR ILDA HOY .Facility:M1Pjfxf: 65-10-6682Viwaqgolu for general adult medical examination without abnormal findingsDR ILDA HOY .[facility]: 03-07-2022 End: 16-78-3026Tartqykkl for general adult medical examination without abnormal findingsDR ILDA HOY .Facility:V6Buswi: 03-07-2022 End: 96-83-8937neddahsfyxUE ILDA HOY .Facility:L3Sgxuv: 03-01-2022 End: 81-63-2084Bndddpv encounter procedureSaeed Cantu Jr. [facility] start: 02-01-2022 End: 00-81-0955Mfigmtx encounter Atul Cantu Jr. [facility] start: 01-04-2022 End: 60-23-1069Kbhfszj encounter Atul Cantu Jr. [facility] Procedures DateProcedureProcedure DetailPerforming ClinicianStart: 45-30-7156Grdyi X-ray of right femurDosalome Peck MD Work Phone: Start: 14-98-7151Kkkkn X-ray of right tibia and right fibulaDosalome Peck MD Work Phone: Start: 02-96-3326Lahqhtgbxpbbpi aspir&/inj major jt/bursa w/o usChristopher Dawn Anthony MD Work Phone: Start: 33-91-4510Jaqgxktszlykcp aspir&/inj major jt/bursa w/o usChristopher Dawn Anthony MD Work Phone: Start: 82-02-5725Uavumgcbtqxtty aspir&/inj major jt/bursa w/o usChristopher Dawn Anthony MD Work Phone: Start: 41-32-2587Dxqqgc-up visitFollow-upCHRISTOPHER Dawn ANTHONYStart: 52-63-9162UmvchweromdCrpnw Sabbagh MD Work Phone: Start: 40-93-0625MxvmfzjfqqnTyxzfni NILL Start: 23-76-0188Rvlntoulgpyhmx aspir&/inj major jt/bursa w/o usChristopher Dawn Anthony MD Work Phone: Start: 26-75-3499YAF screeningDR ILDA HOY .Comment on above:Performed By: #### TESTTOT #### [facility] [address] [place] [address] Dr. Reuben Rollins: 77-58-1589CHS screeningDR ILDA HOY .Comment on above: Performed By: #### IRON, PSASC, VITB12, VITAD #### [facility] [address] [place] [address] Dr. Reuben Rollins: 72-20-7729Qdfgbkqhekbdggxos with dilation of urethral strictureSaeed Cantu Jr. start: 38-21-5883YrudlhucmihIncyhpy NILL Arthroplasty of kneeSaeed Cantu Jr. comment on above:Left sideArthroscopy of shoulder Shawanda NILL CardioversionMichael NILL Cervical arthrodesisMichael NILL Hernia repairSaeed Cantu Jr. repair of left inguinal herniaMichael NILL Repair of musculotendinous cuff of shoulderSaeed Cantu Jr. Transesophageal echocardiographyMichael NILL Plan of Treatment DateCare ActivityDetailAuthorStart: 04-26-5373Mhywbulff for malignant neoplasm of colonNOMS HealthcareStart: 57-96-3979DTF vaccine (adult) (1 - 1-dose 75+ series)RSV vaccine (adult) (1 - 1-dose 75+ series)[facility]Start: 09-04-2031 DTaP,Tdap and Td Vaccines (2 - Tdap)DTaP,Tdap and Td Vaccines (2 - Tdap) [facility] SystemStart: 19-88-1649Mjqna microalbumin profileDTAP,TDAP,TD (2 - Tdap)[facility] Systemtart: 30-81-0701QSCBCYPD CANCER SCREENING DISCUSSION PROSTATE CANCER SCREENING DISCUSSIONHolzer Health Systemtart: 52-27-7887Qjeoh BMI ScreeningAdult BMI ScreeningProOhiohealth O'Bleness Hospital SystemStart: 77-39-0922Gttwmzy ScreeningTobacco ScreeningProCleveland Clinic Akron General [facility] Hospitaltart: 12-10-2025 End: 81-64-7342Jewunne encounter hksixfcii04/18/2026 11:00 AM EDT Office Visit [facility] [address] [place] [address] Román Dawson MD [address] [place] [address] NOMS Ra EndocrinologyStart: 13-91-9726Uirta panelCholesterolMETROHEALTH SYSTEMStart: 97-23-2411FvfpqqsysPremier Health Miami Valley Hospitaltart: 08-04-2025 End: 40-16-0403KckhyuvkpPremier Health Miami Valley Hospitaltart: 59-36-9811Myqgbjoa admissionPremier Health Miami Valley Hospitaltart: 58-67-5774AV Knee - right 2 ViewsPremier Health Miami Valley Hospitaltart: 51-29-0458Hdaijtnj therapy procedurePremier Health Miami Valley Hospitaltart: 81-63-2608Sdwuy X-ray of right femurXR femur RT 2V*[facility] Hospitaltart: 57-70-4792Uxzgd X- ray of right tibia and right fibulaXR tibia fibula RT 2V*[facility] Hospitaltart: 86-87-5047RO Femur - right 2 ViewsPremier Health Miami Valley Hospitaltart: 68-93-4033IM Tibia and Fibula - right 2 ViewsPremier Health Miami Valley Hospitaltart: 81-84-4284TteugzdlwPremier Health Miami Valley Hospitaltart: 07-15-2025 End: 39-37-3918Ydxjigt encounter ljokqziee65/21/2025 3:00 PM EDT Office Visit [facility] [address] [place] [phone] Sage Goode, [place] [address] [address] [place], [place] [id number] [facility] ROUTEStart: 19-28-1199Hrlyowzeb vaccinationInfluenza Vaccine (#1)[facility]HealthStart: 28-73-5477Bcbsm BMI Screening Adult BMI ScreeningToledo Hospital SystemStart: 06-11-2025 End: 95-32-8709Xkdqmixtgkk [Units/volume] in Serum or PlasmaTSH Lab Routine Sarah's disease Expected: 06/11/2025 (Approximate), Expires: 06/11/2026NOMS HealthcareComment on above:Expected: 06/11/2025 (Approximate), Expires: 06/11/2026Start: 06-11-2025 End: 51-92-0748Fhngduyuh (T4) free [Mass/volume] in Serum or PlasmaT4, free Lab Routine Sarah's disease Expected: 06/11/2025 (Approximate), Expires: 06/11/2026NOMS HealthcareComment on above:Expected: 06/11/2025 (Approximate), Expires: 06/11/2026Start: 67-66-8280Pwkbraa ScreeningTobacco ScreeningToledo Hospital SystemStart: 06-11-2025 End: 20-36-7036Vgujlzmozjxopavu (T3) Free [Mass/volume] in Serum or PlasmaT3, free Lab Routine Sarah's disease Expected: 06/11/2025 (Approximate), Expires: 06/11/2026[facility] Work Phone: Comment on above:Expected: 06/11/2025 (Approximate), Expires: 06/11/2026Start: 06-11-2025 End: 22-86-0018Bgwsmjl encounter vsyimissd78/17/2025 10:30 AM EDT Office Visit [facility] [address] [place] [id number] Román Dawson MD [address] [place] [address] NOMDeanna ENDOCRINOLOGYStart: 50-75-8092PEILP-19 Vaccine ( season)COVID-19 Vaccine ( season)[facility] Start: 79-53-3885Vcxvwsumh vaccinationProOhiohealth O'Bleness Hospital SystemStart: 02-18-2025 End: 69-90-0763XA Knee - right 4 ViewsProMedica Work Phone: Comment on above:Expected: 02/18/2025, Expires: 02/18/2026Start: 63-94-8442Tiiva BMI ScreeningAdult BMI ScreeningProOhiohealth O'Bleness Hospital SystemStart: 43-17-6290Hubbrfn ScreeningTobacco ScreeningToledo Hospital SystemStart: 07-17-2024 End: 70-98-4680Tojijjg encounter evxipdzhp76/23/2024 2:30 PM EDT Office Visit [facility] [address] [place] [id number] Sage Goode, DO [address] [place] [address] NOMMERCY [facility] ROUTEStart: 06-12-2024 End: 62-17-5734Khcoorhkroi [Units/volume] in Serum or PlasmaTSH Lab Routine Sarah's disease (CMS/HCC) Expected: 06/12/2024 (Approximate), Expires: 06/12/2025[facility] HealthcareComment on above:Expected: 06/12/2024 (Approximate), Expires: 06/12/2025Start: 06-12-2024 End: 51-89-4817Qdgyrvusw (T4) free [Mass/volume] in Serum or PlasmaT4, free Lab Routine Sarah's disease (CMS/HCC) Expected: 06/12/2024 (Approximate), Expires: 06/12/2025[facility] HealthcareComment on above:Expected: 06/12/2024 (Approximate), Expires: 06/12/2025Start: 06-12-2024 End: 74-96-8522Alunsdqipnmykoid (T3) Free [Mass/volume] in Serum or PlasmaT3, free Lab Routine Sarah's disease (CMS/HCC) Expected: 06/12/2024 (Approximate), Expires: 06/12/2025[facility] Work Phone: Comment on above:Expected: 06/12/2024 (Approximate), Expires: 06/12/2025Start: 64-71-7067RHVGM-19 Vaccine ()COVID- 19 Vaccine ()[facility] SystemStart: 02-46-7057DUFRS-19 Vaccine (5 - 2024-25 season)COVID-19 Vaccine ( season)[facility]icO[facility] SystemStart: 56-89-8444Aafrdkrkn vaccinationVA HOSPITAL HealthcareStart: 55-52-9051Duhq Risk ScreeningFall Risk ScreeningToledo Hospital SystemStart: 92-90-2807Nwqnclezjsgm Vaccine: 65+ Years (1 of 1 - PCV)Pneumococcal Vaccine: 65+ Years (1 of 1 - PCV)[facility] HealthcareStart: 42-36-7161YQTOV-19 Vaccine ( season)COVID-19 Vaccine ( season)[facility] SYSTEMStart: 62-62-5637Dztlukbmg vaccinationINFLUENZA (#1)[facility] Systemtart: 09-25-2022 DEPRESSION ASSESSMENTDEPRESSION ASSESSMENTHolzer Health Systemtart: 09-20-2022 COVID-19 Vaccine (5 - Booster for Pfizer series)COVID-19 Vaccine (5 - Booster for Pfizer series)[facility]: 54-09-2252YPLVY-19 VACCINE (5 - Pfizer series)COVID-19 VACCINE (5 - Pfizer series)[facility] Systemtart: 07-19-2022 End: 89-89-4374Xpcwujv encounter hezaobcvz33/25/2022 Office Visit Physical Medicine & Rehab/PM&R Jovita Virk MD [address] [place] [id number] [facility] PM&RStart: 37-02-7569Maholbzra vaccinationInfluenza Vaccine (#1)[facility] Start: 30-25-4995Dynmpabu (RZV) Vaccine (2 of 2)Shingles (RZV) Vaccine (2 of 2) [facility]Start: 01-95-7192DHXCR-19 Vaccine (4 - Booster for Pfizer series) COVID-19 Vaccine (4 - Booster for Pfizer series)[facility]Start: 11-15-2021 COVID-19 Vaccine (4 - Booster for Pfizer series)COVID-19 Vaccine (4 - Booster for Pfizer series)[facility]Start: 64-93-5231Pucsm panelCholesterolNewark Hospital Start: 40-66-3903FFDMIYEG SCREENDIABETES SCREENHolzer Health Systemtart: 2019 Hepatitis B (HBV) Vaccine (optional start 60+ years)Hepatitis B (HBV) Vaccine (optional start 60+ years)[facility] SYSTEMStart: 23-90-5424UUU vaccine (optional 60+ years)RSV vaccine (optional 60+ years)[facility] SYSTEMStart: 70-49-8781Ialxwz wellness visitAnnual Wellness Visit (G0438)[facility]Start: 51-64-6863Uyiueel stimulating hormone measurementTSHMetroHealthStart: 2009 Measurement of occult blood in single stool specimenFITMetroHealthStart: 82-62-0677Zvmwlqolkjkn vaccinationPneumococcal Vaccine(s) (50+ yrs) (1 of 1 - PCV)[facility]Start: 73-34-4933Cpimrpxqj for malignant neoplasm of colonCRC ScreeningMetroHealthStart: 85-65-1611Lvqhjkob (RZV) Vaccine (1 of 2)Shingles (RZV) Vaccine (1 of 2)[facility]Start: 27-02-9687QRHBSQRGF (FIT-DNA)COLOGUARD (FIT-DNA)[facility] Systemtart: 33-87-0828YzyyorlxrdjDBUKKCZDJCTBywhfdhht Clinic Start: 96-54-0631RKMSEIZLDO CANCER SCREENINGCOLORECTAL CANCER SCREENINGHolzer Health Systemtart: 57-95-6533PI COLONOGRAPHYCT COLONOGRAPHYHolzer Health Systemtart: 78-47-0517WOPJB OCCULT BLOODFECAL OCCULT BLOODHolzer Health Systemtart: 02-22-2004 Screening for malignant neoplasm of colonMETDILEY RIDGE MED[facility] SYSTEMStart: 02-22-2004 SIGMOIDOSCOPYSIGMOIDOSCOPYHolzer Health Systemtart: 44-57-1709LMFKZ SCREENLIPID SCREENHolzer Health Systemtart: 79-79-4347Lrgsrwidw A (HAV) Vaccine (optional start 19+ years)Hepatitis A (HAV) Vaccine (optional start 19+ years)[facility] SYSTEMStart: 1959Nmqdl BMI Follow Up PlanAdult BMI Follow Up PlanToledo Hospital SystemStart: 59-47-3160EDIGEV PCP TEAM CHRONIC DISEASE VISITANNUAL PCP TEAM CHRONIC DISEASE VISITHolzer Health Systemtart: 35-18-7695Uihrwneq foot examinationDiabetic Foot ExamProCleveland Clinic [facility] Hospitaltart: 09-12-4885Rewiwcolk C screeningHepatitis C AntibodyMetroHealthStart: 10-76-9129WBLXIXUPS C SCREENING HEPATITIS C SCREENINGHolzer Health Systemtart: 97-47-2543RRO SCREENINGHIV SCREENING [facility] Systemtart: 73-02-4419UEYVBOIMFYNOXAVISOTAAlquijotj ClinicStart: 97-06-5992Jwwllhc + diphtheria + acellular pertussis vaccine (product)Tdap BoosterMetroHealthStart: 98-90-5606MUA screeningHIV TestMetroHealthStart: 40-59-6367Lokargndmc ScreeningDepression ScreeningProCleveland Clinic [facility] Hospitaltart: 83-20-4591FRTXDSTOIUCJ (1 - PCV)PNEUMOCOCCAL (1 - PCV)[facility] Systemtart: 84-19-1279Aiznoqoz screeningDiabetic Ophthalmology ExamProMercy Health St. [facility] Start: 1959Medicare Annual Wellness VisitMedicare Annual Wellness Visit [facility]/NHRMCtart: 59-33-3538Qnqlzumcl for malignant neoplasm of colonMetroHealthStart: 28-79-3440Lpcjmy Use: DiabeticStatin Use: Diabetic [facility] HospitalArthrp kne condyle&platu medial&lat compartmentsROBOTIC REPLACEMENT TOTAL JOINT KNEE Primary osteoarthritis of right kneeFLOWER SURGERY Hemoglobin [Mass/volume] in BloodBrown Memorial HospitalHepatitis B virus surface Ab [Presence] in SerumBrown Memorial HospitalHenorton brownsboro hospitaltis B virus surface Ag [Presence] in Serum or Plasma by ImmunoassayBrown Memorial HospitalHepatitis C virus IgG Ab [Presence] in Serum or Plasma by ImmunoassayBrown Memorial HospitalPatient EducationLake County Memorial Hospital [facility] Work Phone: [facility] Immunizations Immunization DateImmunizationNotesCare VlcubweuEhpkxbvg53-27-6121rpvljudhv virus vaccine, unspecified formulationChsaulo Anthony MD Work Phone: [facility] HospitalBhazkx44-25-8422ghhdllpqo virus vaccine, unspecified formulationMichael NILL [phone]-Zkvqo [facility] 41-28-9128Zcsopmdiu, injectable, Madin Hanna Canine Kidney, preservative free, quadrivalentMETROHEALTH SYSTEM Work Phone: [phone]ip vaccine recombinantMichael Ulices BARRY Work Phone: cMadison HealthBcqdwx27-62-3332Txhalic Monovalent (12+ yrs) COVID-19 vaccine, mRNA, spike protein, LNP, PF, 100 mcg/0.5 mL (TJJ=854)[place] 862490-31-2022Influenza, injectable, Madin Globe Canine Kidney, preservative free, quadrivalentJovita Virk MD Work Phone: [phone]zfagVaiqqv24-03-2654yxhzah vaccine recombinantJovita Virk MD Work Phone: [phone]YcmdpSadoik13-39-9204UVHS-ZtT-5 (COVID-19) mRNA BNT- 162b2 vaxMichael NILL [phone]-UuynbPremier Health [facility]rium [facility] 93-90-4233tqsajyxhat, tetanus toxoids and pertussis vaccineJovita Virk MD Work Phone: [phone]hctnHxawtu07-43-4467KYRG-UsZ-8 (COVID-19) Ad26 vaccine, recombinantSaeed Cantu Jr. [facility] 11111876-61-5199dyqksnocv, injectable, quadrivalent, preservative freeJovita Virk MD Work Phone: [phone]3-304034XruvbCmrqcu00-34-4356wyaxcugrs virus vaccine, unspecified formulationJovita Virk MD Work Phone: [phone]RdfjmZonkap21-52-1751wzkoqisvu virus vaccine, unspecified formulationVelasquezald Cantu [facility] 03631881-96-2657Hnuhgc (12+ yrs) SARS-COV-2 (COVID-19) vaccine, mRNA, spike protein, LNP, pres. free, 30 mcg/0.3mL dose (GLC=108)Jovita Virk MD Work Phone: [phone]kyp (12+ yrs) SARS-COV-2 (COVID-19) vaccine, mRNA, spike protein, LNP, pres. free, 30 mcg/0.3mL dose (IHI=879)Jovita Virk MD Work Phone: DyjsaFbyrll10-300801JpwfxJssjry15-91-6055eqibiwikj virus vaccine, unspecified formulationSaeed Cantu Jr. [facility] 10600190-78-5490wfxysbiup, injectable, quadrivalent, preservative Camryn Virk MD Work Phone: PapbbYotqqb25-348240WhesnKtzwxy21-86-6380MMXW-MaH-4 (COVID-19) mRNA BNT- 162b2 Darnell Cantu Jr. [facility] 03-998228-32-9325FNLL-QxP-4 (COVID-19) mRNA BNT-162b2 beau Cantu Jr. [facility] Payers DatePayer CategoryPayerPolicy [id number] [facility] Regional Medical [facility] Member Subscriber Plan / Payer (Effective 2022-Present) Name: Vianey Lacey Member ID: [id number] Relation to Subscriber: Spouse Name: Saria Lacey Subscriber ID: [id number] Date of : 1964 Address: [address] [place] [address] Payer ID: Not on file Type: Not on file Address: [address] [place] [address] [id number]9-63-7701HuhuUT Health North Campus [facility] - O1.2.840.474615.1.13.424.2.7.9.378617.505.09769-32-4136Ukczsjd [id number] IndemnityMEDICAL MUTUAL - TRADITIONAL 1.2.840.821924.1.13.56.2.7.9.393517.425.72106-03-6627Angvljq 1.2.840.011306.1.13.56.2.7.3.328840.38695-10-5360Iiprklc59668507470402-42-1854 Medicare1.2.840.126625.1.13.56.2.7.3.671745.315 2014Medicare FFSMEDICARE 1.2.840.891498.1.13.56.2.7.9.876162.100.315 [id number] 15-35-9003Gqik-rln55991933174-57-9924Lmryzrg4878206 2.16.840.1.385592.3.579.2.80887-95-0524Thaqicd9989340 2.16840.1.563477.3.579.2.65052-86-3780Yrzjjxv6615059 2.16840.1.786414.3.579.2.53788-70-4655Mzfgawh1943576 2.840.1.957561.3.579.2.48050-58-6199Qwbkbbt5435206 2.16840.1.478569.3.579.2.89619-17-1176Zdvmaiy5862512 2.16840.1.257221.3.579.2.90797-67-2074Lmryald9045658 2.16840.1.956068.3.579.2.33112-14-1619Tirvfnh8396973 2.16840.1.131441.3.579.2.20030-78-2363Xogshqg3923541 2.16840.1.329762.3.579.2.25506-34-6808Faoyemr4013146 2.16840.1.340556.3.579.2.61028-53-2772Uvroawq7995540 2.16840.1.193296.3.579.2.86910-53-8913Zolpwad01760581 2.16840.1.921603.3.579.2.17267-06-3737Qkqiplr14386314 2.16.840.1.177209.3.579.2.51454-54-1107Yburdky82421203 2.0.1.952927.3.579.2.92280-95-2122Mxzqyes69902503 2.0.1.795686.3.579.2.22870-27-3539Sesdjmy19563858 2..1.202771.3.579.2.55931-93-9489Zpelhiu02939369 2.0.1.113692.3.579.2.58429-74-3855Rhldicd786745257 2..1.311241.3.579.2.117529-67-8789Oljqpdt392911903 2..1.175313.3.579.2.780815-67-0896Ltbcouh055594781 2..1.853201.3.579.2.480199-98-0603Rovhqtd83926922 2..1.867807.3.579.2.448815-08-1268Ijoqnjm18354261 2..1.508798.3.579.2.277445-12-0470Iqrzhbl2642827 2..1.380238.3.579.2.1259[facility] 030167077 1c0c1pqj-k148-1070-j5qh-8260o3336atbKxriwfj8483736 2..1.138629.3.579.2.349Ekxthcw045699726 94wpc543-851p-0f15-54v3-865jz2w42em1Yhxkjzd88554215 2..1.720099.3.579.2.382Xlsdury84691354 2.16.840.1.750884.3.579.2.531 Yxrbtyp42335257 2.16.840.1.522691.3.579.2.777Ysqzawz20664310 2.16.840.1.411794.3.579.2.991Yvwfhhm32424915 2.16.840.1.896465.3.579.2.531 Gnonhuh76875108 2.16.840.1.950283.3.579.2.531 Social History DateTypeDetailFacilityStart: 10-05-2021 End: 94-86-9653Drlkcpm smoking statusNever smoked tobacco (finding)[facility] Tobacco smoking statusNeverExecutive [facility] of [facility] start: 11-05-2020 End: 70-72-8150Mxr Assigned At BirthMaleExec[facility] start: 08-24-2011 End: 85-01-5225Mqbytyg use and exposureSmokeless tobacco non-userMetroHealth Start: 12-07-2017 End: 22-13-7290Fqiewwg intakeNot AskedMetroHealthStart: 46-85-0633Lst Assigned At BirthNot on fileMetroHealthStart: 80-40-6213Xcmnkor SDOH Social Connections Uqqgr1CyipbCsmihyQxhqh: 97-96-3337Nbsxyit SDOH Social Connections Get Together2 MetroHealthStart: 29-66-4388Qpvddsq SDOH Social Connections Unzoqg71NpekbLcsiju Start: 90-90-4253Ufdunkukf42RzdryQyzmtpAijze: 04-26-2023 End: 43-15-7817Dlejokm intakeCurrent drinker of alcohol (finding)[facility] Systemtart: 11-05-2020 End: 77-85-6310Ipbllyu of Social functionClekindred hospital lima ClinicStart: 12-04-2017 Alcohol CommentsocialCleveland ClinicStart: 82-46-1853Ssu Assigned At [facility]ronHow often to you have a drink containing alcohol?Monthly or lessNOMS HealthcareHow many standard drinks containing alcohol do you have on a typical day?1 or 2NOMS HealthcareHow often do you have 6 or more drinks on 1 occasion?WeeklyNOOR HealthcareStart: 07-29-2012 End: 92-83-7812BpaBtfm (finding)[facility] [employer] SystemStart: 98-00-5419Kmpnqm identityIdentifies as male gender (finding)[facility] SystemWithin the last year, have you [...] Procedure CodeEquipment CodeEquipment Original TextEquipment IdentifierDatesBrng Tib 09ftn51hm 0d Kn Ant - [id number]: 38-40-8883Mnviql Bn Palacos Radpq 40g Rpl 015025 - [id number]_fjjCrfgo: 97-98-6038Cy Tib 79mm Cocr Kn I Beam - [id number]_[id number]: 47-66-8308Qnri Fem Kn Lt 70mm Cr Cmnt - [id number]_impStart: 77-20-0710Tnyw Ptlr Thn 34mm 3 Pg Kn Ser - [id number]_ysl Start: 09-05-2016 Goals DatePatient GoalDesired Activity/StatePersonal health goalComment on above: Evaluation of progress towards goal: Maximize work with PT at discharge to strengthen L knee Functional Status ZkdwGumtzsmqxqUgueqzJasgvgwx55-50-7377Ajlwdpnxxs StatusN/AExec[facility]11-19-2024Functional StatusN/AFSelect Medical [facility] Cascqmoo65-16-2742Fyzxjaxtvt StatusN/AFisher-[facility] Wnujwpvx48-96-5113Akeqdonyfe StatusN/A[facility]09-18-2023Functional StatusN/A[facility]03-10-2023Functional StatusN/AExec[facility] Hospitalue10-26-2022Are you deaf, or do you have serious difficulty hearingNo 07/20/2022 2:51 PM EDT Jovita Virk MD No LuvmhIngyqn26-40-7895Szx you blind, or do you have serious difficulty seeing, even when wearing glassesNo 07/20/2022 2:51 PM EDT Jovita Virk MD NoMetrRIeal 85-32-2252Ts you have serious difficulty walking or climbing stairsYes 07/20/2022 2:51 PM EDT Jovita Virk MD UhkSesutRoqvqh94-23-2277Qp you have difficulty dressing or bathingNo 07/20/2022 2:51 PM EDT Jovita Virk MD No GscfkXwenvv26-18-6747Vthvthc of a physical, mental, or emotional condition, do you have difficulty doing errands alone such as visiting a physician's office or shoppingYes 07/20/2022 2:51 PM EDT Jovita Virk MD [facility] Status QjasCjgeioeukaKkdlhxYgdmwbex91-96-3462Dgjqpqw of a physical, mental, or emotional condition, do you have serious difficulty concentrating, remembering, or making decisionsYes 07/20/2022 2:51 PM EDT Jovita Virk MD [facility] Clinical Notes 04-07-2022 to 06-11-2025 Note Date & EqgaXlqwYgithims01-79-3167 Miscellaneous Notes* Telephone Encounter - Margaret Quintanilla - 06/11/2025 3:39 PM EDT Pt signed consent for Rt TKA 08/06/25-pt called today stating he has to cancel surgery as is changing hospitals, new insurance will not be covered with [facility]. Surgery canceled / all notified. documented in this encounterToledo Hospital Ssydnl16-74-8146 Telephone encounter Note* Telephone Encounter - Margaretallison Quintanilla - 06/11/2025 3:39 PM EDT Pt signed consent for Rt TKA 08/06/25-pt called today stating he has to cancel surgery as is changing hospitals, new insurance will not be covered with [facility]. Surgery canceled / all notified. [facility]09-17-2025 History of Present illness Narrative* Román [...] 6 months (around 12/09/2025). documented in this encounterNorthwest Medical CenterRqfnhjzuon95-50-0177 Evaluation note* Diagnosis Onset Date Resolution Status Admit Date Primary osteoarthritis of right knee acuteAugust 2024 10:39am [facility] Work Phone: 1(479) 271-979608-19-2025 Evaluation note* Diagnosis Onset Date Resolution Status Admit Date Primary osteoarthritis of right knee acuteAugust 2024 10:39amHypersomniaacuteOctober 2024 4:26pmLow back pain at multiple sitesacuteOctober 2024 4:26pmOSA (obstructive sleep apnea)acuteOctober 2024 4:26pmSnoringacuteOctober 2024 4:26pmPrimary osteoarthritis of right kneeacuteOctober 2024 11:13am [facility] Work Phone: 1(893) 883-348405-27-2025 History of Present illness Narrative* Osmin Anthony [...] replacement. He has an appointment with his Rehabilitation Director coming up and I explained that he [...] also discussed. Cornell meet with the surgical instruments inspector to schedule the procedure. Informed consent obtained. His knee was re-injected today. Informed consent obtained. Return in about 3 months (around 05/21/2025) for X-Ray-Right Knee, Post Op. Pat was advised to contact the office if there are any problems, questions, or concerns. *I have seen and evaluated the patient today with my physician event sales assistant and agree with all aspectsof the [...] Date: 02/18/2025 Expiration Date: 02/18/2026 Scheduling Instructions: Foetisch ortho series. Standing bilateral ap and tunnel views, a lateral view of each knee (standing if possible), and bilateral sunrise patellar view. Reason for Exam:: right knee pain Release to patient via MyChart?: Immediate [1] documented in this encounterCherrington Hospital04-29-2025 NoteWACO [facility] Cardiology Clinic Note Chief Complaint: Patient [...] days., Disp: , Rfl: vitamin B complex 900-9-297-2-2 mg/mL injection, Inject into the shoulder, thigh, [...] ischemia. Ejection fraction is normal. Transesophageal Echocardiogram-[facility] Name: VIANEY LACEY Study Date: 07/11/2023 12:24 PM B/P: 104 mmHg/74 mmHg HR: Date of : 1960 Location: [facility] Height: 68 in. Age: 63 year(s) Patient Room : Weight: 189 lb. Gender: Male Patient Status: OutPt BSA: 2 m2 Indication: Atrial Fibrillation, Pre-Cardioversion Examination: JAMIN (Transesophageal Echo / CFI) Image Quality: Good Patient Consent: Informed, written consent was obtained for the procedure s p @ c 3 Exam Location (more content not included)...[facility] 10-21-2024 Hospital Discharge instructions Patient Education [...] urethra. Follow these instructions at home: Take xrzc-vnv-qzvegpj and prescription medicines only as told by [...] provider. Document Revised: 03/30/2022 Document Reviewed: 03/30/2022 FOODSCROOGE Patient Education 2023 [employer]. Follow Up Care 10/16/2023 14:07:51 With:HERRERA PRIETO, Vianey Crawford, URL Address: [facility] [address], [place] [phone] When: Unknown Comments:1 yr w/ PSA and T level [facility] 01-27-2025 NotePatient Education Urology Benign Prostatic [...] Follow these instructions at home: ??? Take aori-nhn-idmxvic and prescription medicines only as told by [...] symptoms do not get (more content not included)...[facility]01-14-2025 History of Present illness Narrative* [...] evaluated the patient today with my physician event sales assistant and agree with all aspectsof the [...] created via procedure documentation documented in this encounterCherrington Hospital11-19-2024 NoteGeneral Surgery Office/Clinic Note Chief Complaint [...] Recorded SARS-CoV-2 (COVID-19) mRNA BNT-162b2 vax 11/2019 RecordedFisher-Titus Medical CenterComment on above:Result Comment: Electronically Signed By: ROBERTO PRIETO, Shawanda Young\Date and Time Signed: 08/13/24 21:11 [id number] History of Present illness Narrative* Sage Goode, - 07/17/2024 2:30 PM EDT Images from the original note were not included. Chief Complaint Patient presents with Sleep Apnea Subjective Vianey Abhijit, 64 y.o., male HPI NANCY The patient [...] was counseled on the risks of stroke, NH, and sudden with NANCY, along with the [...] to clinic: 2 months documented in this encounterNorthwest Medical CenterWiblynfadz36-70-8926 NoteUT Electrophysiology Consult Note Reason for visit: [...] Box isolaton+ Substrate modification for discrete mechanistic sulky driver of AF. 2. Atrial flutter s/p [...] function. He is also recently seen a structural steel painter. They are weaning of amantadine which was [...] Year: No Utilities: Not At Risk (11/16/2023) [facility] Utilities Threatened with loss of utilities: No [...] route for 90 days. vitamin B complex 869-4-833-2-2 mg/mL injection Inject into the shoulder, thigh, [...] daily as directed. (Pa (more content not included)...[facility] 06-12-2024 History of Present illness Narrative* [...] 1 year (around 06/12/2025). documented in this encounterNorthwest Medical CenterSdvwlhvqbt67-33-3368 History of Present illness Narrative* Osmin Anthony [...] evaluated the patient today with my physician event sales assistant and agree with all aspectsof the [...] created via procedure documentation documented in this encounterCherrington Hospital08-13-2024 NoteGeneral Surgery Office/Clinic Note Chief Complaint [...] prior to procedure. 2. Chronic anticoagulation (Z79.01: long-term (current) use of 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s) see # 1 [...] Abuse - Denies Substa (more content not included)...[facility] CenterComment on above:Result Comment: Electronically Signed By: ROBERTO PRIETO, Shawanda Young\Date and Time Signed: 05/07/24 15:50 [id number] History of Present illness Narrative* Osmin Anthony [...] evaluated the patient today with my physician event sales assistant and agree with all aspectsof the [...] created via procedure documentation documented in this encounterCherrington Hospital01-22-2024 Hospital Discharge instructions Patient Education 10/16/2023 [...] provider. Document Revised: 01/20/2022 Document Reviewed: 01/20/2022 FO[employer]SCROOGE Patient Education 2022 [employer]. Follow Up Care 07/31/2023 10:30:59 With:HERRERA PRIETO, Vianey Crawford, URL Address: [facility] [address] , [place] [address]- When:Within 1 Year(s) Comments:w/AARON [facility]-02-2023 Evaluation note* Encounter Date Diagnosis [...] I advised him to avoid NSAIDs or koajprx-apm-jwnaqvp supplements. This deanna with the importance of [...] (ICD-10 - G47.33)Continue follow-up with the specialist. [facility]ible Other 10-17-2023 History general Narrative - Reported* Type Description Date Medical History FATIGUE Medical HistoryEDEMASurgical HistoryCARDIO DUBVNID5707/11/2023Surgical HistoryLEFT KNEE REPLACEMENTSurgical HistoryC5-C6 PLATE AND SCREWSSurgical HistoryDOUBLE HERNIA REPAIRSurgical HistoryRIGHT SHOULDER SCOPESurgical HistoryCOLONOSCOPY Surgical HistoryCYSTO SCOPEHospitalization HistorySEE ABOVE [facility]ible Other 09-18-2023 Hospital Discharge instructions Patient Education [...] therapy. Follow these instructions at home: Take flbt-bdu-hbpxjcu and prescription medicines only as told by [...] provider. Document Revised: 05/13/2021 Document Reviewed: 05/13/2021 [employer]SCROOGE Patient Education 2022 [employer]. Follow Up Care 05/04/2023 10:34:04 With:HERRERA PRIETO, Vianey Crawford, URL Address: [facility] [address] [place] [phone] When:Within 6 Month(s) Comments:w/Testosterone Level, PSA and CBC [facility] [place] 08-02-2023 NoteHNO ID: [id number] Author: Shawanda Hernandez PA-C Service: ? Author Type: Physician Certified Phlebotomist Type: Progress Notes Filed: 04/26/2023 11:40 AM [...] Vascular Accident) ([facility]) Dysarthria Add (Attention Deficit Disorder) Aphasia Eczema Cervical Disc Disease Hypothyroidism Spinal Stenosis Thrombocytopenia (Hcc) Absolute Anemia B12 Deficiency PAST MEDICAL HISTORY Diagnosis Date A-fib ([facility]) ADD (attention deficit disorder) Aphasia contusion and [...] Full Oblique Extension With (more content not included)...[facility] 04-26-2023 History of Present illness Narrative* [...] Deficiency PAST MEDICAL HISTORY Diagnosis Date A-fib ([facility]) ADD (attention deficit disorder) Aphasia contusion and [...] 2023 TIME: 11:15 AM documented in this encounterVan [facility]ert [facility]03-10-2023 Hospital Discharge instructions Patient Education [...] urethra. Follow these instructions at home: Take pmut-nwe-zailuei and prescription medicines only as told by [...] 09/11/2006 Document Revised: 08/06/2019 Document Reviewed: 10/16/2017 [employer] Patient Education 2020 [employer]. Follow Up Care 11/01/2022 10:29:54 With:HERRERA PRIETO, Vianey Crawford, URL Address: [address] [place] [address]- When: Unknown [facility] 11-18-2022 History of Present illness Narrative* Aarti Kelsey MA, CCC, MILLER HELPER - 08/12/2022 12:27 PM EST SPEECH LANGUAGE [...] stated should already be in the system. MILLER HELPER was speaking with patient's spouse via phone conversation attempting to troubleshoot and bypass the preliminary questionnaires. However, it was unsuccessful. MILLER HELPER sent patient's spouse a direct link to her cell phone to connect to video visit and the same issues arose. Patient was connected to [employer] and using an iPad in home setting. The iPad did not successfully pass the hardware test and patient/patient's spouse were never able to successfully log on. MILLER HELPER provided patient/patient's spouse the [facility] Support Team's contact information to reach out for further assistance with log on issues. MILLER HELPER will e-mail patient's spouse/patient information regarding memory strategies, etc to help in the home setting (patient's spouse reported patient tends to misplace belongings, such as keys, etc and could use a refresher on the strategies. Patient's spouse stated she will take a look at the strategies and go from there with scheduling anything further. MILLER HELPER provided patient/spouse with our direct line to [facility] Therapy dept if she has any further questions/concerns or needs to schedule. Patient left without being seen this date. Electronically signed by Aarti Kelsey MA, [facility], MILLER HELPER at 08/12/2022 12:28 PM EST documented in this [id number] Instructions* Patient Instructions* Jovita Virk MD - 07/20/2022 2:49 PM EDT -Get the sleep apnea addressed -Hold amantadine -Add memantine 5mg daily. -External referral for brain MRI. -Speech therapy for cognitive strategies. -R knee surgery. -F/up 1 year, sooner if needed. documented in this [id number] History of Present illness Narrative* Jovita Virk [...] 200 mg into the muscle once amonth. 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 Last available brain imaging [id number] showed ventriculomegaly that was deemed not hydrocephalus [...] Risk protocol implemented: No documented in this [id number] Telephone encounter Note* Telephone Encounter - Renetta [...] PCP on file No PCP on file [id number] Miscellaneous Notes* Telephone Encounter - Renetta Boyer [...] Appointments Appointment Date:02/01/2022 10:00:00 AM Scheduled Provider: Location:[facility] Appointment Type:URO Nurse Visit Appointment Date:03/01/2022 09:00:00 AM Scheduled Provider:Saeed Cantu Jr., MD Location:[facility] Appointment Type:URO Office Visit Appointment Date:04/05/2022 11:15:00 AM Scheduled Provider:Saeed Cantu Jr., MD Location:[facility] Appointment Type:URO Office Visit [facility] evaluation + Plan note Future Appointments Appointment Date:03/01/2022 09:00:00 AM Scheduled Provider:Saeed Cantu Jr., MD Location:[facility] Appointment Type:URO Office Visit Appointment Date:04/05/2022 11:15:00 AM Scheduled Provider:Saeed Cantu Jr., MD Location:[facility] Appointment Type:URO Office Visit [facility] evaluation + Plan note Future Appointments Appointment Date:04/05/2022 11:15:00 AM Scheduled Provider:Saeed Cantu Jr., MD Location:[facility] Appointment Type:URO Office Visit Diagnostic Tests Pending * Testosterone Level Total 03/01/22 [facility] evaluation + Plan note Future Appointments Appointment Date:07/11/2022 10:15:00 AM Scheduled Provider: Location:[facility] Appointment Type:URO Nurse Visit [facility] evaluation + Plan note Future Appointments Appointment Date:09/07/2022 10:00:00 AM Scheduled Provider: Location:[facility] Appointment Type:URO Nurse Visit [facility] evaluation + Plan note Future Appointments Appointment Date:10/05/2022 10:00:00 AM Scheduled Provider: Location:[facility] Appointment Type:URO Nurse Visit [facility] evaluation + Plan note Future Appointments Appointment Date:11/01/2022 10:00:00 AM Scheduled Provider: Location:[facility] Appointment Type:URO Nurse Visit [facility] evaluation + Plan note Future Appointments Appointment Date:11/30/2022 10:00:00 AM Scheduled Provider:Taylor Joshua MD Location:[facility] Appointment Type:URO Office Visit Diagnostic Tests Pending * CBC w/ Auto Diff 11/01/22 * Testosterone Level Total 11/01/22 [facility] evaluation + Plan note Diagnostic Tests Pending * Testosterone Level Total 12/17/22 * Testosterone Level Total 04/25/23 [facility] evaluation + Plan note Future Appointments Appointment Date:04/05/2023 10:00:00 AM Scheduled Provider: Location:[facility] Appointment Type:URO Nurse Visit [facility] evaluation + Plan note Future Appointments Appointment Date:05/30/2023 10:00:00 AM Scheduled Provider: Location:[facility] Appointment Type:URO Nurse Visit [facility] evaluation + Plan note Future Appointments Appointment Date:07/10/2023 09:30:00 AM Scheduled Provider: Location:[facility] Appointment Type:URO Nurse Visit Appointment Date:11/27/2023 09:45:00 AM Scheduled Provider:Vianey SILVERMAN MD Location:[facility] Appointment Type:URO Office Visit Diagnostic Tests Pending * Testosterone Level Total 06/12/23 * PSA Total 06/12/23 * CBC w/ Auto Diff 06/12/23 [facility] evaluation + Plan note Future Appointments Appointment Date:10/21/2024 10:15:00 AM Scheduled Provider:Vianey SILVERMAN MD Location:[facility] Appointment Type:URO Office Visit Diagnostic Tests Pending * PSA Total 10/16/23 [facility] evaluation + Plan note Future Appointments Appointment Date:10/21/2024 10:15:00 AM Scheduled Provider:Vianey SILVERMAN MD Location:[facility] Appointment Type:URO Office Visit [facility] Evaluation + Plan note Future Appointments Appointment Date:10/27/2025 10:30:00 AM Scheduled Provider:Vianey SILVERMAN MD Location:[facility] Appointment Type:URO Office Visit Diagnostic Tests Pending * PSA Total 10/21/24 * Testosterone Level Total 10/21/24 [facility] evaluation note* 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 Body mass index (BMI) 28.0-28.9, adult [facility] Height loss- Primary Loss of height [facility] Work Phone: Evaluation note* Diagnosis Onset Date Resolution Status BPH (benign prostatic hyperplasia) acuteCKD (chronic kidney disease) stage 2, GFR 60-89 ml/minacute [id number] (obstructive sleep apnea)acuteRenal cystacute [facility] Work Phone: Evaluation note* Diagnosis NANCY (obstructive sleep apnea)- Primary Obstructive sleep apnea (adult) (pediatric) Hypersomnia Hypersomnia, unspecified Snoring Other dyspnea and respiratory abnormality Atrial fibrillation, unspecified type (CMS/HCC) Sleep deprivation Problems related to lack of adequate sleep [facility] 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 [facility] Diagnosis Primary osteoarthritis of right knee- Primary [facility] Diagnosis Primary osteoarthritis of right knee- Primary [facility] Diagnosis Primary osteoarthritis of right knee- Primary [facility] Diagnosis Primary osteoarthritis of right knee- Primary [facility] Diagnosis Onset Date Resolution Status Admit Date Primary osteoarthritis of right knee acuteAugust 2024 10:39am [facility] Work Phone: Evaluation note* Diagnosis Sarah's disease- Primary Chronic lymphocytic thyroiditis [facility] Narrative No data available for this section [facility] Discharge instructions No data available for this section [facility] InstructionsNot on filedocumented in this encounter [facility]Not on filedocumented in this encounter [facility]* Attachments The following attachments cannot be sent through Care Everywhere. * Steroid injection (Beninese) * Knee replacement (Beninese) documented in this encounterProMedica Health SystemInstructionsNot on file documented in this encounterProLakeland [facility] SystemProgress note No data available for this section [facility] reason for referral (narrative)No reason for referral information availableL[facility] Work Phone: Advance Directives No Advanced Directives Records FoundLatest Code Status on File Code StatusDate ActivatedDate InactivatedCommentsFull Code06/09/2011 2:48 PM [...] PMDate ActivatedDate InactivatedComments06/05/2011 4:23 AM06/09/2011 2:48 PM Advance Directive Response Recorded Date/ Time Advance Directives No October 28, 2023 11:48am Reason for Referral SpecialtyDiagnoses / ProceduresReferred By ContactReferred To Contact Neuroradiology Diagnoses Cognitive changes Late effect of brain injury (HCC) Jovita Virk MD [address] [place] [phone] Referral IDStatusReasonStart DateExpiration DateVisits RequestedVisits [id number] Patient Preference Comments Brain MRI without contrast. H/o TBI 2010. Continues to struggle with cognitive deficits, fatigue, impaired balance, unimproved. Please evaluate for other structural causes of these issues. Fax report to me at [phone]. SpecialtyDiagnoses / ProceduresReferred By ContactReferred To [facility] Diagnoses Cognitive changes Late effect of brain injury (HCC) Jovita Virk MD [address] [place] [address] [place], [place] [id number] Referral IDStatusReasonStart DateExpiration DateVisits RequestedVisits [id number] Review Consultation-[facility] QuestionAnswer [...] osteoarthritis of right knee Apr us2024 10:39am Hypersomnia July 14, 2025 4 :26pm [...] right knee Apr us2024 10:39am Chief Complaint Unknown RENAL 1 year follow upReason for VisitBPH (benign prostatic hyperplasia) CKD (chronic kidney disease) stage 2, GFR 60-89 ml/min [id number] NANCY (obstructive sleep apnea) Renal cyst Additional Source Comments Reason for Visit (unrecogniz ed section and content) ReasonCommentsRefillReasonCommentsMonitoring/follow-upReasonCommentsback issue ReasonCommentsSleep HhwfvMwvcivLorxumxcZqqxtp-ssjhuaskzXdwnsbLufpbshfNdasga-cz Right knee pain - wants injection - [...] 2025 Team Status: Active Member Role Status Timo Peck MD Primary Care Provider Active Start: May 13, 2025 Conner Charles II ProviderActiveStart: May 13, 2025 Team MemberRelationshipSpecialtyStart DateEnd Date Jovita Virk MD [address] [place] [address] PhysicianPhysical Medicine & Rehab/PM&R1Team MemberRelationshipSpecialty Start DateEnd Date Jovita Virk MD [address] [place] [address] PhysicianPhysical Medicine & Rehab/PM&R1Team MemberRelationshipSpecialty Start DateEnd Date Jovita Virk MD [address] [place], [place] PhysicianPhysical Medicine & Rehab/PM&R1Team MemberRelationshipSpecialty Start DateEnd Date Ilda Peck MD PCP - GeneralFahily Medicine12/04/17 Team Status: Inactive Member Role Status [...] Start: June 06, 2024 End: June 06magali Antonia , LULÚttammon ProviderActiveStart: June 06, 2024 End: June 06, 2024Team MemberRelationshipSpecialtyStart DateEnd Date Ilda Peck MD [address] [place] [phone] PCP - [facility]05/13/24Team MemberRelationshipSpecialtyStart DateEnd Date Ilda Peck MD [address] [place] [address] PCP - [facility]05/13/24Team MemberRelationshipSpecialtyStart DateEnd Date Ilda Peck MD [address] [place] [address] PCP - [facility]05/13/24Team MemberRelationshipSpecialtyStart DateEnd Date Ilda Peck MD [address] [place] [address] [facility] - [facility]05/13/24Team MemberRelationshipSpecialtyStart DateEnd Date Ilda Peck MD PCP - Iykvgux89/11/16Team MemberRelationshipSpecialtyStart DateEnd Date Ilda Peck MD [address] [place] [address] PCP - Bajuctd15/11/16Team MemberRelationshipSpecialtyStart DateEnd Date Ilda Peck MD PCP - Klyhodb22/11/16Team MemberRelationshipSpecialtyStart DateEnd Date Ilda Peck MD PCP - Dvbytvm10/11/16Team MemberRelationshipSpecialtyStart DateEnd Date Jovita Virk MD [address] [place] [phone] PhysicianPhysical Medicine & Rehab/PM&R10/03/14Team MemberRelationshipSpecialty Start DateEnd Date Ilda Peck MD PCP - GeneralFahily Medicine05/13/24Team MemberRelationshipSpecialtyStart DateEnd Date Ilda Peck MD PCP - [facility]Wal[facility] Medicine05/13/24Team MemberRelationshipSpecialtyStart DateEnd Date Ilda Peck MD PCP - Vvuyjwm45/11/16 Team Status: Active Member Role/Relationship Status Dates [...] Provider Active Start: July 23, 2025 Scot M [place] II, MDAttending ProviderActiveStart: July 23, 2025 Team Status: Active Member Role/Relationship Status Dates Ilda Peck MD Primary Care Provider Active Start: July 23, 2025 Scot Hutchison II, MDAttending ProviderActiveStart: July 23, 2025 Team Status: Inactive Member Role/Relationship Status Timo Peck MD Primary Care Provider Active Start: July 23, 2025 End: July 23, 2025Scot Hutchison II, MDAttending ProviderActiveStart: July 23, 2025 End: July 23, 2025 Team Status: Active Member Role/Relationship Status Timo Peck MD Primary Care Provider Active Start: July 23, 2025 Scot Hutchison II, MDAttending ProviderActiveStart: July 23, 2025 Team Status: Inactive [...] 2025 End: July 25, 2025Scot Hutchison II, MDAttending ProviderActiveStart: July 25, 2025 End: July 25, 2025 Team Status: Active Member Role/Relationship Status Timo Peck MD Primary Care Provider Active Start: August 04, 2025 Scot Hutchison II, MDAttending ProviderActiveStart: August 04, 2025 Scot Hutchison II, MDOther ProviderActiveStart: August 04, 2025 Team Status: Active Member Role/Relationship Status Timo Peck MD Primary Care Provider Active Start: August 04, 2025 Arturo VELAZQUEZ DO CHCAttending ProviderActiveStart: August 04, 2025 Team Status: Inactive Member Role/Relationship Status Dates Ilda Peck MD Primary Care Provider Active Start: August 04, 2025 End: August 04candie Willson - MARCUS , CHCAttending ProviderActive Start: August 04, 2025 End: August 04, 2025 (unrecognized sect ion and content) No Status Records FoundNo Status Records FoundNo Status Records FoundNo Status Records FoundNo Status Records FoundNo Status Records FoundNo Status Records FoundNo Status Records Found INFORMATION SOURCE (unrecogn ized section and content) DATE CREATED AUTHOR 01/27/2023 [facility] DATE CREATED AUTHOR AUTHOR'S ORGANIZ ATION 04/27/2023 [facility] DATE CREATED AUTHOR AUTHOR'S ORGANIZ ATION 09/23/2023 [facility] DATE CREATED AUTHOR AUTHOR'S ORGANIZ ATION 10/23/2024 [facility] DATE CREATED AUTHOR AUTHOR'S ORGANIZ ATION 2025 [facility] DATE CREATED AUTHOR AUTHOR'S ORGANIZ ATION 06/07/2025 [facility] DATE CREATED AUTHOR AUTHOR'S ORGANIZ ATION 06/12/2025 [facility] DATE CREATED AUTHOR AUTHOR'S ORGANIZ ATION 08/07/2025 [facility] Source Comments (unrecognize d section and content) In the event this informatio n is protected by the Federal Confidentiality of Alcohol and Drug Abuse Patient Records regulations: The Federal rules restrict any use of the information to criminally investigate or prosecute any alcohol or drug abuse patient.[facility] Goals (unrecognized section and content) Goals [...] BE BASED ON THE PRIMARY CLINICAL RECORDS. [facility]. provides no warranty or guarantee of the accuracy or completeness of information in this document.
== END 2025-09-22 13:25 | disposition home or self-care (01) ==
LOC: MRI 13:24
PROVIDERS: PCP Family Medicine; Visit Provider Family Medicine
DX: M54.16 Radiculopathy, lumbar region (principal); M51.369 Other intervertebral disc degeneration, lumbar region without mention of lumbar back pain or lower extremity pain; M43.16 Spondylolisthesis, lumbar region
CPT/HCPCS: 72148